=== PATIENT | female | born 1945 | race Caucasian/White ===

== ENCOUNTER → 2016-07-10 | Outpatient (CLI) | payer OTHER ==
[~2016-07-10] MED LIST: ACET1TAB84 PO; ALBUAER2 INH; AMLO2.5T PO; APIX1TAB3 PO; ASPEC81 PO; BUDESUS; CALC500C70 PO; CLR10 PO; CPR500 PO; DFL100 PO; FLUT0.15 NAE; FRRS300 PO; FURO-85 PO; GABA1CAP4 PO; HYDR-5688 PO; IBAN150T PO; LEVO88TA PO; LPT40 PO; LSN5 PO; MGNO400 PO; MTR500 PO; OMEP40CA41 PO; POLY335025 PO; SIMV20TA5 PO; SULF800T23 PO; TPRSR50 PO; VALA500T39 PO; VALA500T60 PO; WARF3TAB6 PO; [UNRECOGNIZED DRUG - CODE] TOP
--- NOTE | 2016-07-10 15:08 | DIAGNOSTIC IMAGING REPORT ---
KUB CLINICAL HISTORY: N20.0 [id number] COMPARISON STUDY: 01/03/2016 FINDINGS: There is no pathologic bowel dilatation. There are postsurgical changes involve the proximal left femur. There are extensive degenerative changes in the lower lumbar spine. Approximately 8 right renal calculi are visualized, the largest of which measures 7 mm. Punctate upper pole left renal calculi are also visualized. IMPRESSION: 1. Bilateral nephrolithiasis right greater than left. 2. No evidence of pathologic bowel dilatation Electronically signed by: Armando Barker M.D. 07/10/2016 3:06 PM Dictated Date/Time: 07/10/2016 3:05 PM
== END | disposition home or self-care (01) ==
LOC: C.RAD 14:29
PROVIDERS: ATTEND Urology
DX: N20.0 Calculus of kidney (principal)

== ENCOUNTER → 2016-08-10 | Outpatient (CLI) | payer OTHER ==
[2016-08-10 15:43] LABS: URINE APPEARANCE CLEAR (CLEAR); URINE BILIRUBIN NEG (NEG); URINE COLOR YELLOW; URINE EPITHELIAL CELL AUTO >30 /lpf (0-5); URINE NITRITE NEG (NEG); URINE SPECIFIC GRAVITY 1.015 (1.000-1.030); UROBILINOGEN NEG (NEG)
[2016-08-10 15:46] LABS: MANUAL MICROSCOPIC REQUIRED? NO; REVIEW REQ? NO
== END | disposition home or self-care (01) ==
LOC: C.LAB 14:11
PROVIDERS: ATTEND Internal Medicine
DX: R30.0 Dysuria (principal); E03.9 Hypothyroidism, unspecified

== ENCOUNTER 2016-08-30 13:43 | Emergency (ER) | payer OTHER ==
[~2016-08-30] VITALS: Ht 142.2 cm; Wt 75.0 kg
[~2016-08-30 13:43] MED LIST changes: -ACET1TAB84 PO; -ASPEC81 PO; -CLR10 PO; -CPR500 PO; -FLUT0.15 NAE; -FRRS300 PO; -FURO-85 PO; -HYDR-5688 PO; -LPT40 PO; -MGNO400 PO; -MTR500 PO; -OMEP40CA41 PO; -SULF800T23 PO; -TPRSR50 PO; -VALA500T39 PO; -VALA500T60 PO; -WARF3TAB6 PO; -[UNRECOGNIZED DRUG - CODE] TOP
[2016-08-30 13:47] VITALS: TEMP 36.7; Ht 142.2 cm; Wt 75.0 kg
[2016-08-30] MEDS ORDERED: HYDROCODONE/ACETAMOPHEN 5/325MG TAB PO STA (13:53)
--- NOTE | 2016-08-30 14:20 | DIAGNOSTIC IMAGING REPORT ---
RIGHT WRIST MIN 3 VIEWS ROUTINE CLINICAL HISTORY: final/wrist pain Right trauma. Pain. COMPARISON: None. DISCUSSION: Possible cortical defect dorsal aspect distal radius. There is a positive pronator fat pad sign. No evidence of dislocation. All remaining osseous structures are unremarkable. IMPRESSION: Possible incomplete cortical fracture distal radius. Localized soft tissue edema. Alignment is anatomic Electronically signed by: Luis Miguel Myrick M.D. 08/30/2016 2:19 PM Dictated Date/Time: 08/30/2016 2:14 PM
--- NOTE | 2016-08-30 14:47 | EMERGENCY ROOM VISIT NOTE ---
ED Visit Note First contact with patient: 13:48 CHIEF COMPLAINT: Right wrist injury HISTORY OF PRESENT ILLNESS: This 71-year-old female presents the ER via ambulance with chief complaint of right wrist injury. The patient states that she stepped off a curb when getting into her car and fell injuring her right wrist. She states that her hand was in her cope pocket when she fell. The patient denies any loss of consciousness or any other injuries. The patient denies any numbness and tingling in her fingers. The patient denies any elbow or shoulder pain. The patient denies any prior injury to her right wrist. She has seen after Ron or Dr. Cardona in the past for other orthopedic needs. REVIEW OF SYSTEMS: 6 system review was performed and was negative unless stated otherwise in history of present illness. PMH: The patient is healthy; EMR was reviewed. See chronic problem list. There are no changes from prior ER visit SOCIAL HISTORY: Patient admits to tobacco use PHYSICAL EXAM: Vital Signs: Were reviewed Reviewed Nurse's notes. GEN.: 71-year -old white female appears in no acute distress. MENTAL Status: Alert and oriented 3. RIGHT WRIST: No gross bony deformity noted. No erythema or edema noted. The patient is tenderness palpation over the dorsal aspect of the wrist. Limited range of motion secondary to pain. The skin is intact. Flexion and extension of the fingers is intact. The fingers are warm and well perfused. EMERGENCY DEPARTMENT COURSE: The patient was evaluated. The patient was given Martinez 5/325 mg one tablet by mouth for pain. X-ray of the right wrist was ordered and interpreted by the radiologist and myself. DIAGNOSTICS:RIGHT WRIST MIN 3 VIEWS ROUTINE CLINICAL HISTORY: final/wrist pain Right trauma. Pain. COMPARISON: None. DISCUSSION: Possible cortical defect dorsal aspect distal radius. There is a positive pronator fat pad sign. No evidence of dislocation. All remaining osseous structures are unremarkable. IMPRESSION: Possible incomplete cortical fracture distal radius. Localized soft tissue edema. Alignment is anatomic Electronically signed by: Luis Miguel Myrick M.D. 08/30/2016 2:19 PM Dictated Date/Time: 08/30/2016 2:14 PM The patient was informed of the findings. The patient was independently evaluated by Dr. Martini who agrees with treatment plan. The patient was placed in a volar splint and discharged home in stable condition. DIAGNOSIS: Fractured distal right radius DISCHARGE INSTRUCTIONS AND TREATMENT: Take Martinez as needed for pain. Do not drive while taking the Martinez. Call Dr. Velasquez as soon as possible for follow- up appointment. Keep arm in splint until evaluated by orthopedics. Ice elevation as much as possible over the next 24 hours. Problem List Medical Problems: (1) Compression fracture of lumbar vertebra Status: Chronic (2) Diabetes mellitus Status: Chronic (3) DVT (deep venous thrombosis) Status: Chronic (4) Hyperlipidemia Status: Chronic (5) Kidney stones Status: Chronic (6) Lymphoma Status: Chronic (7) Osteopenia Status: Chronic (8) Thyroid disease Status: Chronic Current/Historical Medications Scheduled Amlodipine (Norvasc), 2.5 MG PO DAILY Apixaban (Eliquis), 5 MG PO BID Budesonide (Nasal) (Rhinocort Aq Nasal), 2 SPRAY NA DAILY Calcium/Vitamin D (Os-Jonah 500 Plus D), 1 TAB PO DAILY Gabapentin (Gabapentin), 300 MG PO HS Ibandronate Sodium (Boniva), 150 MG PO MONTHLY Levothyroxine Sodium (Synthroid), 88 MCG PO DAILY Lisinopril (Lisinopril), 5 MG PO QAM Simvastatin (Zocor), 20 MG PO DAILY Scheduled PRN Albuterol (Ventolin Hfa), 1-2 PUFFS INH 4-6 hrs PRN for prn Fluconazole (Fluconazole), 100 MG PO DAILY PRN for PRN Polyethylene Glycol 3350 (Miralax), 17 GM PO DAILY PRN for Constipation Allergies Coded Allergies: Nitrofurantoin (Verified Allergy, Severe, HIVES,ITCHING, 08/30/16) Azithromycin (Verified Allergy, Unknown, HIVES, 08/30/16) Penicillins (Verified Allergy, Unknown, HIVES, 08/30/16) PT SAID SHE'S NOT ALLERGIC TO IT ANYMORE Vital Signs Date Time Temp Pulse Resp B/P Pulse Ox O2 Delivery O2 Flow Rate FiO2 08/30/16 13:47 36.7 86 18 156/74 96 Room Air Medications Administered Medications (Trade) Dose Ordered Sig/Mahogany Route Start Time Stop Time Status Last Admin Dose Admin Acetaminophen/ Hydrocodone Bitart (Martinez 5/325 Tab) 1 tab NOW STAT PO 08/30/16 13:53 08/30/16 13:55 DC 08/30/16 14:02 1 TAB Departure Information Referrals Thang Lakhani M.D. (PCP) Patient Instructions My [facility]
[2016-08-30] MEDS ORDERED: HYDR-5688 PO (14:49)
[2016-08-30 15:18] VITALS: BP 150/80; PULSE 64; O2SAT 96
--- NOTE | 2016-08-30 15:26 | EMERGENCY ROOM VISIT NOTE ---
ED Visit Note First contact with patient: 13:48 I have personally evaluated this patient examined her and reviewed the pertinent labs and data. I have discussed the case with Audrey Myrick, the physician content assistant and agree with the plan. Please refer to the PA note Patient comes in after injuring her right wrist after suffering from a mechanical fall. She has no other complaints. On exam, she has some tenderness but no obvious deformity or any neurovascular neurologic compromise. She has nothing to suggest compartment syndrome. She didn't hit her head. X- rays were obtained and show no definite fractures a questionable nondisplaced fracture we will immobile her and she should follow-up with her regular doctor or orthopedist.
[2016-12-17] MEDS ORDERED: WARF3TAB6 PO (12:43)
[2016-12-17] MEDS ORDERED: FURO-85 PO (12:46)
[2016-12-27] MEDS ORDERED: ACET1TAB84 PO (11:27)
[2017-01-03] MEDS ORDERED: FURO-85 PO (14:28)
[2017-01-25] MEDS ORDERED: SULF800T23 PO (13:52)
[2017-02-07] MEDS ORDERED: CLR10 PO (11:16)
== END 2016-08-30 15:19 | disposition home or self-care (01) ==
LOC: EDBD 13:43 → C.EDD 13:45
DX: S52.501A Unspecified fracture of the lower end of right radius, initial encounter for closed fracture (principal); W10.1XXA Fall (on)(from) sidewalk curb, initial encounter; F17.200 Nicotine dependence, unspecified, uncomplicated; Z11.9 Encounter for screening for infectious and parasitic diseases, unspecified; E78.5 Hyperlipidemia, unspecified; M85.80 Other specified disorders of bone density and structure, unspecified site

== ENCOUNTER → 2016-09-07 | Outpatient (CLI) | payer OTHER ==
[~2016-09-07] MED LIST changes: +ACET1TAB84 PO; +ASPEC81 PO; +CLR10 PO; +CPR500 PO; +FLUT0.15 NAE; +FRRS300 PO; +FURO-85 PO; +HYDR-5688 PO; +LPT40 PO; +MGNO400 PO; +MTR500 PO; +OMEP40CA41 PO; +SULF800T23 PO; +TPRSR50 PO; +VALA500T39 PO; +VALA500T60 PO; +WARF3TAB6 PO; +[UNRECOGNIZED DRUG - CODE] TOP
[2016-09-07 15:22] LABS: BLOOD UREA NITROGEN 40 mg/dl (7-18)
== END | disposition home or self-care (01) ==
LOC: C.LABBC 11:18
PROVIDERS: ATTEND Anesthesiology
DX: M54.5 Low back pain (principal)

== ENCOUNTER → 2016-09-10 | Outpatient (CLI) | payer OTHER ==
--- NOTE | 2016-09-10 13:10 | DIAGNOSTIC IMAGING REPORT ---
LUMBAR SPINE MRI HISTORY: Pain BACK PAIN TECHNIQUE: Multiplanar multisequence MRI of the lumbar spine was performed without the use of contrast. COMPARISON: 06/02/2013 FINDINGS: For the purpose of the report the L5-S1 disc space will be located on axial image 30 of 34. Complete compression deformity of L3 considered pre-existing. Posterior retropulsion of the posterior margin of the vertebral body x 8 mm. Moderate compression deformity central aspect superior endplate L5 considered old. L1-L2: Mild broad-based bulging disc. Mild impression anterior thecal sac. L2-L3: Broad-based posterior extradural defect creating moderate anterior posterior narrowing of spinal canal. Moderate narrowing of the neuroforamina bilaterally. L3-L4: Broad-based posterior extradural defect comprised primarily of the posterior margin of the L3 vertebral body. Significant multifactorial narrowing of the spinal canal and associated neural foramina. L4-L5: Moderate multifactorial narrowing of the spinal canal. Broad-based bulging disc. Moderate hypertrophic change posterior elements. L5-S1: Mild central disc herniation. No significant deformity or displacement of the thecal sac or associated neural root. IMPRESSION: 1. Near complete compression deformity L3 with posterior displacement of the posterior margin of the vertebral body.. 2. Posterior displacement is estimated at 8 mm creating rather significant narrowing of spinal canal and associated neural foramina at L3-L4 and to lesser extent L2-L3 3. Moderate multifactorial narrowing of spinal canal at L4-L5. 5. Mild central disc herniation L5-S1. 6. Concave deformity superior endplate L5 considered old Electronically signed by: Luis Miguel Myrick M.D. 09/10/2016 1:09 PM Dictated Date/Time: 09/10/2016 12:50 PM
== END | disposition home or self-care (01) ==
LOC: C.MRIBC 11:48
PROVIDERS: ATTEND Anesthesiology
DX: M54.5 Low back pain (principal)

== ENCOUNTER 2016-09-17 17:57 | Emergency (ER) | payer OTHER ==
[~2016-09-17] VITALS: Ht 142.2 cm; Wt 74.0 kg
[~2016-09-17 17:57] MED LIST changes: -ACET1TAB84 PO; -ASPEC81 PO; -CLR10 PO; -CPR500 PO; -FLUT0.15 NAE; -FRRS300 PO; -FURO-85 PO; -LPT40 PO; -MGNO400 PO; -MTR500 PO; -OMEP40CA41 PO; -SULF800T23 PO; -TPRSR50 PO; -VALA500T39 PO; -VALA500T60 PO; -WARF3TAB6 PO; -[UNRECOGNIZED DRUG - CODE] TOP
[2016-09-17 18:18] VITALS: Ht 142.2 cm; Wt 74.0 kg
[2016-09-17] MEDS ORDERED: SODIUM CHLORIDE 0.9% 1000ML 1,000 ML IV STA (18:37)
--- NOTE | 2016-09-17 19:08 | DIAGNOSTIC IMAGING REPORT ---
CHEST ONE VIEW PORTABLE CLINICAL HISTORY: Generalized Weakness dyspnea COMPARISON STUDY: 06/15/2016 FINDINGS: The bones soft tissues and hemidiaphragms are normal. The cardiomediastinal silhouette is normal. The lungs are clear. The pulmonary vasculature is normal. IMPRESSION: Negative chest. Electronically signed by: Luis Miguel Myrick M.D. 09/17/2016 7:06 PM Dictated Date/Time: 09/17/2016 7:06 PM
[2016-09-17 19:44] LABS: URINE APPEARANCE CLEAR (CLEAR); URINE BILIRUBIN NEG (NEG); URINE COLOR YELLOW; URINE NITRITE NEG (NEG); URINE SPECIFIC GRAVITY 1.013 (1.000-1.030); UROBILINOGEN NEG (NEG); ZZUR CULT IF INDIC CLEAN CATCH NO
[2016-09-17 19:48] LABS: MANUAL MICROSCOPIC REQUIRED? NO; REVIEW REQ? NO
[2016-09-17 19:53] LABS: BASO % 0.5 %; BASO ABS # 0.03 K/uL (0-0.2); COMPLETE YES; EOS % 0.3 %; IG% 0.2 %; LYMPH % 35.3 %; LYMPH ABS # 2.34 K/uL (1.2-3.4); MEAN CELL VOLUME 98.6 fL (80-100); MEAN CORPUSCULAR HEMOGLOBIN 32.3 pg (25-34); MEAN CORPUSCULAR HGB CONC 32.8 g/dl (32-36); MEAN PLATELET VOLUME 10.6 fL (7.4-10.4); MONO % 8.3 %; NEUT % 55.4 %; PLATELET COUNT 241 K/uL (130-400); RED BLOOD COUNT 3.65 M/uL (4.2-5.4); WHITE BLOOD COUNT 6.62 K/uL (4.8-10.8)
[2016-09-17 20:05] LABS: PROTHROMBIN TIME (PATIENT) 10.9 SECONDS (9.0-12.0)
[2016-09-17 20:12] LABS: ALT/SGPT 16 U/L (12-78); AST/SGOT 12 U/L (15-37); BLOOD UREA NITROGEN 27 mg/dl (7-18); BUN/CREATININE RATIO 11.9 (10-20); CALCIUM 8.6 mg/dl (8.5-10.1); CARBON DIOXIDE 28 mmol/L (21-32); CHLORIDE 106 mmol/L (98-107); GLUCOSE 116 mg/dl (70-99); MAGNESIUM 1.6 mg/dl (1.8-2.4); POTASSIUM 4.4 mmol/L (3.5-5.1); SODIUM 141 mmol/L (136-145)
[2016-09-17 20:16] LABS: ALKALINE PHOSPHATASE 102 U/L (45-117); CKMB/CK RATIO 1.5 (0-3.0); PHOSPHORUS 2.6 mg/dl (2.5-4.9)
--- NOTE | 2016-09-17 20:45 | DIAGNOSTIC IMAGING REPORT ---
ABDOMEN AND PELVIS CT WITHOUT CONTRAST CT DOSE: 1188.50 mGy.cm HISTORY: Pelvic pain bilateral lower abdominal discomfort TECHNIQUE: Multiaxial CT images of the abdomen and pelvis were performed without the use of intravenous and oral contrast according to the standard department stone protocol. COMPARISON STUDY: 01/10/2014 FINDINGS: Lung bases are generally clear. Configuration of liver is unremarkable. Small gallstones are present within the gallbladder lumen. Right kidney shows an exophytic cyst projecting anteriorly from the upper pole unchanged. There are several right renal calcifications considered nonobstructive. Left kidney demonstrates mild cortical scarring with several nonobstructing renal calcifications. An exophytic posterior lateral cyst is unchanged. There is no evidence for an obstructing urinary tract calculus. Bladder is midline. The appendix is normal. There are no obstructive changes. There is no evidence for abscess or collection. Findings of a left femoral intramedullary zack are unchanged. Findings of a complete compression deformity of L3 with retropulsion of components of the vertebral bodies are similar. Considerable degenerative changes noted throughout the low thoracic as well as lumbar spine. IMPRESSION: 1. Several nonobstructing renal calcifications. 2. Nonobstructive bowel pattern. 3. Normal appendix. 4. L3 compression fracture unchanged from the prior study. 5. several small gallstones within the gallbladder lumen. Electronically signed by: Luis Miguel Myrick M.D. 09/17/2016 8:43 PM Dictated Date/Time: 09/17/2016 8:39 PM
[2016-09-17] MEDS ORDERED: MAGNESIUM SULFATE 1GM / D5W 1 GM BAG IV STA (20:46)
[2016-09-17] MEDS ORDERED: VALA500T39 PO (21:20)
[2016-09-17] MEDS ORDERED: FLUT0.15 NAE (21:20)
[2016-09-17] MEDS ORDERED: OMEP40CA41 PO (21:20)
[2016-09-17] MEDS ORDERED: [UNRECOGNIZED DRUG - CODE] TOP (21:20)
--- NOTE | 2016-09-17 21:23 | EMERGENCY ROOM VISIT NOTE ---
History Report prepared by Zander: Carmelita Wood Under the Supervision of: Dr. Marcial Jin M.D. First contact with patient: 18:24 Chief Complaint: DEHYDRATION Stated Complaint: FATIGUE,NO APPETITE,HEADACHE Nursing Triage Summary: pt reports "not eating and drinking last several days and think Im dehydrated" denies n/v/d headache started today extreme fatigue History of Present Illness The patient is a 71 year old female who presents to the Emergency Room with complaints of worsening dehydration that started a couple days ago. The patient states that she has not had an appetite for the last several days so she has not eaten much. She suspects that she is dehydrated. The patient's daughter also states that the patient has been fatigued and weak over the past two days. The patient states that she is experiencing a productive cough with phlegm. The patient experienced some nausea yesterday, but she denies vomiting. Additionally she is experiencing abdominal pain and back pain. However, the patient was just evaluated by a entry specialists in [place] earlier today. Her last bowel movement was this morning and she states that it was normal. She denies any burning with urination, but states that her urine is dark. The patient is on Eliquis for a history of DVTs in her bilateral lower extremities. She denies chest pain and shortness of breath. However, the patient's daughter states that the patient experienced a brief episode of shortness of breath when she was getting into the car to come into the ED. The patient adds that she was on pain medicine last week because she fracture her right wrist. The patient denies any history of abdominal surgeries. Source of History: patient Onset: a couple days ago Position: other (global) Quality: other (dehydration) Timing: worsening Associated Symptoms: + abdominal pain, + back pain, + cough (productive with phlegm), + nausea, + urinary symptoms (dark urine, but no burning with urination), No SOB, No chest pain, No vomiting Review of Systems See HPI for pertinent positives & negatives. A total of 10 systems reviewed and were otherwise negative. 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 (10) Thyroid disease (11) UTI (urinary tract infection) Family History FHx: diabetes FHx: heart disease Social History Smoking Status: Current Every Day Smoker Alcohol Use: none Drug Use: none Marital Status: Housing Status: lives with family Occupation Status: retired Current/Historical Medications Scheduled Amlodipine (Norvasc), 2.5 MG PO DAILY Apixaban (Eliquis), 5 MG PO BID Calcium/Vitamin D (Os-Jonah 500 Plus D), 1 TAB PO DAILY Fluticasone Propionate (Nasal) (Flonase Allergy Relief), 1 SPRAY CORRIE QAM Gabapentin (Gabapentin), 300 MG PO HS Ibandronate Sodium (Boniva), 150 MG PO MONTHLY Levothyroxine Sodium (Synthroid), 88 MCG PO DAILY Omeprazole (Prilosec), 40 MG PO QAM Simvastatin (Zocor), 20 MG PO DAILY Scheduled PRN Fluconazole (Fluconazole), 100 MG PO DAILY PRN for PRN Fluocinolone Acetonide (Fluocinolone Acetonide), 1 APPLN TOP BID PRN for PRN Polyethylene Glycol 3350 (Miralax), 17 GM PO DAILY PRN for Constipation Valacyclovir Hcl (Valtrex), Unknown Dose PO DAILY PRN for PRN Allergies Coded Allergies: Nitrofurantoin (Verified Allergy, Severe, HIVES,ITCHING, 09/17/16) Azithromycin (Verified Allergy, Unknown, HIVES, 09/17/16) Penicillins (Verified Allergy, Unknown, HIVES, 09/17/16) PT SAID SHE'S NOT ALLERGIC TO IT ANYMORE Physical Exam Vital Signs Date Time Temp Pulse Resp B/P Pulse Ox O2 Delivery O2 Flow Rate FiO2 09/17/16 22:27 37.0 97 20 103/60 95 09/17/16 19:07 97 09/17/16 18:18 37.0 106 20 103/60 95 Room Air Physical Exam GENERAL: Patient is chronically unwell appearing and in minimal distress. HEENT: No acute trauma, normocephalic atraumatic, mucous membranes dry, no nasal congestion, no scleral icterus. NECK: No stridor, no adenopathy, no meningismus, trachea is midline. LUNGS: No dyspnea. Clear to auscultation and equal bilaterally. No wheeze, no rhonchi. HEART: Regular rate and rhythm. No murmurs, rubs, gallops appreciated. ABDOMEN: Soft, mild lower tenderness to palpation, hypoactive bowel sounds, no masses appreciated, no peritonitis, no guarding. BACK: No midline tenderness, no CVA tenderness EXTREMITIES: Normal motion all extremities, vague tenderness to bilateral legs, no cyanosis, no edema. NEUROLOGIC: Alert and oriented, no acute motor or sensory deficits, no focal weakness, cranial nerves grossly intact. SKIN: No rash, no jaundice, no diaphoresis. Medical Decision & Procedures ER Provider Diagnostic Interpretation: Radiology results and stated below per my review and radiologist interpretation: CHEST ONE VIEW PORTABLE IMPRESSION: Negative chest. Electronically signed by: Luis Miguel Myrick M.D. 09/17/2016 7:06 PM Dictated Date/Time: 09/17/2016 7:06 PM [address]OMEN AND PELVIS CT WITHOUT CONTRAST IMPRESSION: 1. Several nonobstructing renal calcifications. 2. Nonobstructive bowel pattern. 3. Normal appendix. 4. L3 compression fracture unchanged from the prior study. 5. several small gallstones within the gallbladder lumen. Electronically signed by: Luis Miguel Myrick M.D. 09/17/2016 8:43 PM Dictated Date/Time: 09/17/2016 8:39 PM Laboratory Results 09/17/16 19:40 Red Blood Count 3.65, Mean Corpuscular Volume 98.6, Mean Corpuscular Hemoglobin 32.3, Mean Corpuscular Hemoglobin Concent 32.8, Mean Platelet Volume 10.6, Neutrophils (%) (Auto) 55.4, Lymphocytes (%) (Auto) 35.3, Monocytes (%) (Auto) 8.3, Eosinophils (%) (Auto) 0.3, Basophils (%) (Auto) 0.5, Neutrophils # (Auto) 3.67, Lymphocytes # (Auto) 2.34, Monocytes # (Auto) 0.55, Eosinophils # (Auto) 0.02, Basophils # (Auto) 0.03 09/17/16 19:40 Test 09/17/16 19:00 09/17/16 19:40 09/17/16 19:49 Urine Color YELLOW Urine Appearance CLEAR (CLEAR) Urine pH 7.0 (4.5-7.5) Urine Specific Woodrow 1.013 (1.000-1.030) Urine Protein NEG (NEG) Urine Glucose (UA) NEG (NEG) Urine Ketones NEG (NEG) Urine Occult Blood NEG (NEG) Urine Nitrite NEG (NEG) Urine Bilirubin NEG (NEG) Urine Urobilinogen NEG (NEG) Urine Leukocyte Esterase NEG (NEG) Urine WBC (Auto) 1-5 /hpf (0-5) Urine RBC (Auto) 0-4 /hpf (0-4) Urine Hyaline Casts (Auto) 1-5 /lpf (0-5) Urine Epithelial Cells (Auto) 10-20 /lpf (0-5) Urine Bacteria (Auto) NEG (NEG) White Blood Count 6.62 K/uL (4.8-10.8) Red Blood Count 3.65 M/uL (4.2-5.4) Hemoglobin 11.8 g/dL (12.0-16.0) Hematocrit 36.0 % (37-47) Mean Corpuscular Volume 98.6 fL (80-100) Mean Corpuscular Hemoglobin 32.3 pg (25-34) Mean Corpuscular Hemoglobin Concent 32.8 g/dl (32-36) Platelet Count 241 K/uL (130-400) Mean Platelet Volume 10.6 fL (7.4-10.4) Neutrophils (%) (Auto) 55.4 % Lymphocytes (%) (Auto) 35.3 % Monocytes (%) (Auto) 8.3 % Eosinophils (%) (Auto) 0.3 % Basophils (%) (Auto) 0.5 % Neutrophils # (Auto) 3.67 K/uL (1.4-6.5) Lymphocytes # (Auto) 2.34 K/uL (1.2-3.4) Monocytes # (Auto) 0.55 K/uL (0.11-0.59) Eosinophils # (Auto) 0.02 K/uL (0-0.5) Basophils # (Auto) 0.03 K/uL (0-0.2) RDW Standard Deviation 50.4 fL (36.4-46.3) RDW Coefficient of Variation 14.0 % (11.5-14.5) Immature Granulocyte % (Auto) 0.2 % Immature Granulocyte # (Auto) 0.01 K/uL (0.00-0.02) Prothrombin Time 10.9 SECONDS (9.0-12.0) Prothromb Time International Ratio 1.0 (0.9-1.1) Activated Partial Thromboplast Time 25.4 SECONDS (21.0-31.0) Partial Thromboplastin Ratio 1.0 Est Creatinine Clear Calc Drug Dose 17.7 ml/min Estimated GFR () 23.6 Estimated GFR (Non- 20.4 BUN/Creatinine Ratio 11.9 (10-20) Calcium Level 8.6 mg/dl (8.5-10.1) Phosphorus Level 2.6 mg/dl (2.5-4.9) Magnesium Level 1.6 mg/dl (1.8-2.4) Total Bilirubin 0.2 mg/dl (0.2-1) Direct Bilirubin < 0.1 mg/dl (0-0.2) Aspartate Amino Transf (AST/SGOT) 12 U/L (15-37) Alanine Aminotransferase (ALT/SGPT) 16 U/L (12-78) Alkaline Phosphatase 102 U/L (45-117) Total Creatine Kinase 52 U/L (26-192) Creatine Kinase MB 0.8 ng/ml (0.5-3.6) Creatine Kinase MB Ratio 1.5 (0-3.0) Troponin I < 0.015 ng/ml (0-0.045) Total Protein 6.5 gm/dl (6.4-8.2) Albumin 3.1 gm/dl (3.4-5.0) Lipase 75 U/L (73-393) Bedside Hemoglobin 11.6 g/dl (12.0-16.0) Bedside Hematocrit 34 % (37-47) Bedside Sodium 136 mEq/L (135-144) Bedside Potassium 4.7 mEq/L (3.3-5.0) Bedside Chloride 106 mEq/L (101-112) Bedside Total CO2 23 mEq/l (24-31) Anion Gap 12.0 mmol/L (16-25) Bedside Blood Urea Nitrogen 33 mg/dl (7-18) Bedside Creatinine 2.2 mg/dl (0.6-1.3) Bedside Glucose (other) 121 mg/dl (70-99) Bedside Ionized Calcium (Iona) 0.85 mmol/l (1.12-1.32) Laboratory results as reviewed by me. Medications Administered Medications (Trade) Dose Ordered Sig/Mahogany Route Start Time Stop Time Status Last Admin Dose Admin Sodium Chloride (Nss 1000ml) 1,000 ml @ 999 mls/hr Q1H1M STAT IV 09/17/16 18:37 09/17/16 19:37 DC 09/17/16 18:37 999 MLS/HR Magnesium Sulfate (Magnesium Sulfate) 1 gm NOW STAT IV 09/17/16 20:46 09/17/16 20:47 DC 09/17/16 20:54 1 GM ECG Indication: abdominal pain Rate (beats per minute): 100 Rhythm: sinus rhythm Findings: PVC, no acute ischemic change ED Course 1832: The patient was evaluated in room A10. A complete history and physical exam was performed. 1836: Ordered Sodium Chloride 1000 ml @ 999 mls/hr IV 2043: Upon reevaluation, the patient is resting comfortably. Discussed results and treatment plan with the patient. She verbalized understanding and agreement with the treatment plan. The patient will be evaluated for further management. 2045: Ordered Magnesium Sulfate 1 gm IV 2121: Reevaluated the patient. She notes that she is feeling a lot better and would like to try to go home. Discussed results and discharge instructions: she verbalized understanding and agreement. The patient is ready for discharge. Medical Decision Differential: Sepsis, Infectious (UTI/Pneumonia/Meningitis/etc), Metabolic/ Electrolyte Abnormality, Cardiac, Hepatic, Endocrine, Toxicologic, Neurologic, amongst other pathologies entertained. 71 yr old female arrives due to poor appetite, generalized weakness and mild bilateral lower abdominal pain. Feeling much better after IV fluids. Mag mildly low thus given 1 G IV as she is renal patient. Discussed follow up with PCP for further evaluation. She has no evidence of acute infection and is not septic. CT abdo negative for acute process and she has non surgical abdomen. She is feeling better and looks much improved. She and family member feel comfortable going home and aware they can return at any time if worsening symptoms or other concerns. Stable at time of discharge. CaseManagement will help set up follow up appointment with PCP. Impression Primary Impression: Fatigue Additional Impressions: Generalized weakness Hypomagnesemia Poor appetite Bilateral lower abdominal pain Scribe Attestation The scribe's documentation has been prepared under my direction and personally reviewed by me in its entirety. I confirm that the note above accurately reflects all work, treatment, procedures, and medical decision making performed by me. Departure Information Dispostion Home / Self-Care Referrals Thang Lakhani M.D. (PCP) Forms HOME CARE DOCUMENTATION FORM, IMPORTANT VISIT INFORMATION, WORK / SCHOOL INSTRUCTIONS Patient Instructions ED Weakness UKO, Hypomagnesemia Dc, My [facility] Health Problem Qualifiers Primary Impression: Fatigue Fatigue type: unspecified Qualified Codes: R53.83 - Other fatigue
[2016-09-17 21:41] LABS: ISTAT CREATININE 2.2 mg/dl (0.6-1.3); ISTAT HEMOGLOBIN 11.6 g/dl (12.0-16.0); ISTAT IONIZED CALCIUM 0.85 mmol/l (1.12-1.32)
[2016-09-17 22:27] VITALS: BP 103/60; PULSE 97; TEMP 37; O2SAT 95
[2016-12-17] MEDS ORDERED: WARF3TAB6 PO (12:43)
[2016-12-17] MEDS ORDERED: FURO-85 PO (12:46)
[2016-12-27] MEDS ORDERED: ACET1TAB84 PO (11:27)
[2017-01-03] MEDS ORDERED: FURO-85 PO (14:28)
[2017-01-25] MEDS ORDERED: SULF800T23 PO (13:52)
[2017-02-07] MEDS ORDERED: CLR10 PO (11:16)
== END 2016-09-17 22:27 | disposition home or self-care (01) ==
LOC: C.EDB 17:59 → C.EDA 22:27
DX: R53.83 Other fatigue (principal); R53.1 Weakness; E83.42 Hypomagnesemia; R63.0 Anorexia; R10.30 Lower abdominal pain, unspecified; Z86.718 Personal history of other venous thrombosis and embolism; E11.9 Type 2 diabetes mellitus without complications; E78.5 Hyperlipidemia, unspecified; Z87.442 Personal history of urinary calculi; Z85.72 Personal history of non-Hodgkin lymphomas; Z87.440 Personal history of urinary (tract) infections; M85.80 Other specified disorders of bone density and structure, unspecified site; E07.9 Disorder of thyroid, unspecified; Z83.3 Family history of diabetes mellitus; F17.210 Nicotine dependence, cigarettes, uncomplicated; Z79.899 Other long term (current) drug therapy

== ENCOUNTER → 2016-10-10 | Outpatient (CLI) | payer OTHER ==
[~2016-10-10] MED LIST changes: +ACET1TAB84 PO; -ALBUAER2 INH; +ASPEC81 PO; -BUDESUS; +CLR10 PO; +CPR500 PO; +FLUT0.15 NAE; +FRRS300 PO; +FURO-85 PO; -HYDR-5688 PO; +LPT40 PO; -LSN5 PO; +MGNO400 PO; +MTR500 PO; +OMEP40CA41 PO; +SULF800T23 PO; +TPRSR50 PO; +VALA500T39 PO; +VALA500T60 PO; +WARF3TAB6 PO; +[UNRECOGNIZED DRUG - CODE] TOP
== END | disposition home or self-care (01) ==
LOC: C.MAMM 12:33
PROVIDERS: ATTEND Physician Assistant
DX: M81.0 Age-related osteoporosis without current pathological fracture (principal)

== ENCOUNTER → 2016-10-11 | Outpatient (CLI) | payer OTHER ==
[2016-10-11 17:43] LABS: BASO % 0.3 %; BASO ABS # 0.02 K/uL (0-0.2); COMPLETE YES; EOS % 0.6 %; HEMATOCRIT 38.6 % (37-47); IG% 0.2 %; LYMPH % 44.1 %; LYMPH ABS # 2.89 K/uL (1.2-3.4); MEAN CELL VOLUME 101.6 fL (80-100); MEAN CORPUSCULAR HEMOGLOBIN 32.6 pg (25-34); MEAN CORPUSCULAR HGB CONC 32.1 g/dl (32-36); MONO % 4.4 %; NEUT % 50.4 %; PLATELET COUNT 291 K/uL (130-400); WHITE BLOOD COUNT 6.56 K/uL (4.8-10.8)
[2016-10-11 18:03] LABS: BLOOD UREA NITROGEN 20 mg/dl (7-18); BUN/CREATININE RATIO 12.3 (10-20); CARBON DIOXIDE 28 mmol/L (21-32); CHLORIDE 102 mmol/L (98-107); GLUCOSE 116 mg/dl (70-99); SODIUM 138 mmol/L (136-145)
== END | disposition home or self-care (01) ==
LOC: C.LAB1850 16:42
PROVIDERS: ATTEND Nurse Practitioner Adult Health
DX: R42 Dizziness and giddiness (principal)

== ENCOUNTER → 2016-10-30 | Outpatient (CLI) | payer OTHER ==
[2016-10-30 17:24] LABS: URINE APPEARANCE CLEAR (CLEAR); URINE BILIRUBIN NEG (NEG); URINE COLOR YELLOW; URINE EPITHELIAL CELL AUTO >30 /lpf (0-5); URINE NITRITE NEG (NEG); URINE PH 6.5 (4.5-7.5); URINE SPECIFIC GRAVITY 1.009 (1.000-1.030); UROBILINOGEN NEG (NEG)
[2016-10-30 17:27] LABS: CHOLESTEROL/HDL RATIO 2.1
[2016-10-30 17:30] LABS: MANUAL MICROSCOPIC REQUIRED? NO; REVIEW REQ? NO
[2016-10-30 17:32] LABS: BLOOD UREA NITROGEN 31 mg/dl (7-18); BUN/CREATININE RATIO 16.3 (10-20); CALCIUM 9.3 mg/dl (8.5-10.1); CARBON DIOXIDE 28 mmol/L (21-32); CHLORIDE 104 mmol/L (98-107); GLUCOSE 103 mg/dl (70-99); POTASSIUM 4.6 mmol/L (3.5-5.1); SODIUM 138 mmol/L (136-145)
[2016-10-30 17:35] LABS: PHOSPHORUS 2.8 mg/dl (2.5-4.9)
[2016-10-31 07:05] LABS: ESTIMATED AVERAGE GLUCOSE 117 mg/dl; HA1C FLAG Normal (Normal)
== END | disposition home or self-care (01) ==
LOC: C.LABBC 13:17
PROVIDERS: ATTEND Internal Medicine Nephrology
DX: N18.4 Chronic kidney disease, stage 4 (severe) (principal); R73.09 Other abnormal glucose; R42 Dizziness and giddiness; E78.5 Hyperlipidemia, unspecified; R73.9 Hyperglycemia, unspecified

== ENCOUNTER → 2016-11-20 | Outpatient (CLI) | payer OTHER ==
--- NOTE | 2016-11-20 11:31 | DIAGNOSTIC IMAGING REPORT ---
LUMBAR SPINE CT CT DOSE: 1084.26 mGy.cm HISTORY: Lower back pain. LUMBAR SPINAL STENOSIS TECHNIQUE: Multiaxial CT images of the lumbar spine were performed and reformatted in the sagittal and coronal plane without the use of contrast. COMPARISON: Lumbar spine MRI 09/10/2016. FINDINGS: Severe compression fracture at L3 with a vertebral plana deformity is again noted. This demonstrates 7 mm of retropulsion and severe central canal narrowing at this level. The central canal measures a maximal diameter of 5 mm. This is similar to the prior study. Moderate endplate compression deformity at L5 is also unchanged. No acute fractures within the lumbar spine. Mild to moderate facet degenerative changes within the lower lumbar spine. Disc spaces are relatively preserved. Paraspinal soft tissues are unremarkable. Bilateral nephrolithiasis. Evaluation of the central canal is suboptimal due to the CT technique. There is also moderate central canal narrowing at L4-L5 due to the broad-based posterior disc bulge. Small broad-based posterior disc osteophyte complex at L1-L2. Small focal central disc protrusion at T12-L1, unchanged. IMPRESSION: 1. Overall, no significant change compared to the 09/10/2016 lumbar spine MRI. 2. Severe central canal narrowing at the L3 level due to the old severe compression deformity and 7 mm of retropulsion. 3. Old moderate compression deformity at L5. 4. No acute fractures. 5. Additional degenerative changes as described above. 6. Bilateral nephrolithiasis. Electronically signed by: Kade Osborne M.D. 11/20/2016 11:30 AM Dictated Date/Time: 11/20/2016 11:04 AM
== END | disposition home or self-care (01) ==
LOC: C.CTS 10:49
PROVIDERS: ATTEND Orthopaedic Surgery
DX: M51.36 Other intervertebral disc degeneration, lumbar region (principal); N20.0 Calculus of kidney

== ENCOUNTER 2016-12-06 13:30 | Inpatient (IN) | payer OTHER ==
[~2016-12-06] VITALS: Ht 142.2 cm; Wt 77.2 kg
[~2016-12-06 13:30] MED LIST changes: -ACET1TAB84 PO; -ASPEC81 PO; -CLR10 PO; -CPR500 PO; -FRRS300 PO; -FURO-85 PO; -LPT40 PO; -MGNO400 PO; -MTR500 PO; -SULF800T23 PO; -TPRSR50 PO; -VALA500T60 PO; -WARF3TAB6 PO
[2016-12-06] MEDS ORDERED: SODIUM CHLORIDE 0.9% 1000ML 1,000 ML IV STA (14:14)
[2016-12-06] MEDS ORDERED: SODIUM CHLORIDE 0.9% 1000ML 2,000 ML IV STA (14:15)
[2016-12-06] MEDS ORDERED: OPTIRAY 320 IV PRN (14:30)
[2016-12-06 14:31] LABS: BASO % 0.1 %; BASO ABS # 0.01 K/uL (0-0.2); COMPLETE YES; EOS % 0.6 %; HEMATOCRIT 38.7 % (37-47); IG% 0.2 %; LYMPH % 14.5 %; LYMPH ABS # 1.88 K/uL (1.2-3.4); MEAN CELL VOLUME 100.8 fL (80-100); MEAN CORPUSCULAR HEMOGLOBIN 32.8 pg (25-34); MEAN CORPUSCULAR HGB CONC 32.6 g/dl (32-36); MEAN PLATELET VOLUME 11.2 fL (7.4-10.4); MONO % 3.2 %; NEUT % 81.4 %; PLATELET COUNT 227 K/uL (130-400); RED BLOOD COUNT 3.84 M/uL (4.2-5.4); WHITE BLOOD COUNT 12.97 K/uL (4.8-10.8)
[2016-12-06 14:55] LABS: ALKALINE PHOSPHATASE 112 U/L (45-117); ALT/SGPT 18 U/L (12-78); AST/SGOT 34 U/L (15-37); BLOOD UREA NITROGEN 44 mg/dl (7-18); BUN/CREATININE RATIO 15.3 (10-20); CALCIUM 8.7 mg/dl (8.5-10.1); CARBON DIOXIDE 24 mmol/L (21-32); CHLORIDE 109 mmol/L (98-107); GLUCOSE 97 mg/dl (70-99); POTASSIUM 5.4 mmol/L (3.5-5.1); SODIUM 142 mmol/L (136-145)
[2016-12-06] MEDS ORDERED: SODIUM CHLORIDE 0.9% 500ML 500 ML IV STA (14:57)
[2016-12-06] MEDS ORDERED: VALA500T60 PO (14:59)
--- NOTE | 2016-12-06 15:15 | DIAGNOSTIC IMAGING REPORT ---
CHEST ONE VIEW PORTABLE CLINICAL HISTORY: Gastrointestinal hemorrhage COMPARISON STUDY: 09/17/2016 FINDINGS: The cardiac and mediastinal contours remain stable. There is developing interstitial thickening. This could be secondary to either mild pulmonary vascular congestion, or a bilateral interstitial inflammatory process. Clinical and radiographic follow-up is recommended. No significant pleural effusions are visualized.[No free air is visualized. IMPRESSION: Progressive elevation of the interstitium. This is likely secondary to either mild pulmonary vascular congestion or a bilateral interstitial inflammatory process. Clinical and radiographic follow-up is recommended Electronically signed by: Armando Barker M.D. 12/06/2016 3:14 PM Dictated Date/Time: 12/06/2016 3:12 PM
[2016-12-06 15:36] LABS: PARTIAL THROMBOPLASTIN RATIO 1.2; PROTHROMBIN TIME (PATIENT) 10.8 SECONDS (9.0-12.0)
--- NOTE | 2016-12-06 15:37 | DIAGNOSTIC IMAGING REPORT ---
CT SCAN OF THE ABDOMEN AND PELVIS WITHOUT CONTRAST CLINICAL HISTORY: Abdominal pain. Gastrointestinal hemorrhage. COMPARISON STUDY: 09/17/2016 TECHNIQUE: CT scan of the abdomen and pelvis was performed from the lung bases to the proximal femurs. Images are reviewed in the axial, sagittal, and coronal planes. IV contrast was not administered for this examination. CT DOSE: 739.88 mGy.cm FINDINGS: Lower chest: There are dependent interstitial opacities, perhaps minimally progressive when compared the preceding study. There are no significant pleural effusions. Liver: The unenhanced liver is normal in size, contour, and attenuation. There is no intrahepatic biliary ductal dilatation. Gallbladder: Cholelithiasis Spleen: Normal in size and attenuation. Pancreas: Unremarkable. Adrenal glands: Unremarkable. Kidneys: There are multiple right renal calculi measuring up to 9 mm in diameter. There is a 5 mm left renal calculus. There are bilateral hypodense renal lesions the largest of which arises from the lower pole the left kidney measuring 31 mm. These statistically represent cysts. Bowel: There are no transition zones to indicate obstruction. There is colonic wall thickening extending from the rectum to the splenic flexure. The findings are indicative of with a nonspecific colitis. There is no evidence of acute appendicitis Peritoneum: There is no intraperitoneal free air or abdominal ascites. Vasculature: The abdominal aorta is normal in course and caliber. Adenopathy: None. Pelvic viscera: The bladder, and pelvic viscera are unremarkable. Skeletal structures: There is a severe L3 compression fracture with retropulsion. This remains stable. IMPRESSION: 1. No evidence of bowel obstruction. No evidence of free air 2. Cholelithiasis 3. Bilateral nephrolithiasis 4. Moderate colonic wall thickening extending from the rectum to the splenic flexure. The findings are indicative of a colitis Electronically signed by: Armando Barker M.D. 12/06/2016 3:36 PM Dictated Date/Time: 12/06/2016 3:31 PM
[2016-12-06 16:15] LABS: HEMATOCRIT 39.1 % (37-47)
[2016-12-06 16:30] LABS: URINE APPEARANCE CLOUDY (CLEAR); URINE BILIRUBIN NEG (NEG); URINE COLOR YELLOW; URINE NITRITE POS (NEG); URINE SPECIFIC GRAVITY 1.015 (1.000-1.030); UROBILINOGEN NEG (NEG)
[2016-12-06] MEDS ORDERED: POLYETHYLENE (MIRALAX) 17 GM PACK PO PRN (16:30)
[2016-12-06] MEDS ORDERED: ALUMINUM/MAGNESIUM/SIMETH (MAALOX MAX) 30 ML UDC PO PRN (16:30)
[2016-12-06] MEDS ORDERED: MoRPHine SULFATE 2 MG/ML CARP IV PRN (16:30)
[2016-12-06] MEDS ORDERED: ZOLPIDEM TARTRATE 5 MG TAB PO PRN (16:30)
[2016-12-06] MEDS ORDERED: MAGNESIUM HYDROXIDE SUSP 30 ML UDC PO PRN (16:30)
[2016-12-06] MEDS ORDERED: ONDANSETRON INJ 2 MG/ML 2 ML VIAL IV PRN (16:30)
[2016-12-06] MEDS ORDERED: NITROGLYCERIN 0.4 MG SL PER TAB CHARGE SL PRN (16:30)
[2016-12-06 16:31] LABS: MANUAL MICROSCOPIC REQUIRED? NO; REVIEW REQ? NO
[2016-12-06] MEDS ORDERED: CEFTRIAXONE SOD INJ 1 GM ADDVIAL IV STA (16:34)
--- NOTE | 2016-12-06 17:59 | History and Physical ---
History & Physical Date & Time of Service: Dec 06, 2016 at 17:13 Chief Complaint: Abd Pain/Rectal Bleed Primary Care Physician: Thang Lakhani M.D. History of Present Illness Source: patient, family 71 y/o F Hx CKD 2-3, DVT (on Apixaban), Hypothyroidism. Pt presents with 2 days of intermittent BRBPR which follow straining on toilet. She describes some lower abdominal pain. Denies N/V or fevers. Initial CT abdomen is consistent with mild to moderate colitis. Initial labs were significant for acute on chronic RF and a markedly elevated troponin. She has not had any cardiovascular symptoms - denies CP, N/V, diaphoresis, palpitation or light- headedness. Past Medical/Surgical History Medical Problems: (1) Compression fracture of lumbar vertebra Status: Chronic (2) Diabetes mellitus Status: Chronic (3) DVT (deep venous thrombosis) Status: Chronic (4) Hyperlipidemia Status: Chronic (5) Kidney stones Status: Chronic (6) Lymphoma Status: Chronic (7) Osteopenia Status: Chronic (8) Thyroid disease Status: Chronic Family History FHx: diabetes FHx: heart disease Social History Smoking Status: Current Every Day Smoker Drug Use: none Marital Status: Housing status: lives alone Occupational Status: retired Immunizations History of Influenza Vaccine: N/A History of Tetanus Vaccine?: Unknown History of Pneumococcal: Yes History of Hepatitis B Vaccine: Yes Hepatitis Immunization Date: Nov 25, 1997 Multi-Drug Resistant Organisms History of MDRO: No Allergies Coded Allergies: Nitrofurantoin (Verified Allergy, Intermediate, HIVES,ITCHING, 12/06/16) Azithromycin (Verified Allergy, Unknown, HIVES, 09/17/16) Penicillins (Verified Allergy, Unknown, HIVES,PT SAYS SHE'S NOT ALLERGIC TO IT ANYMORE, 12/06/16) PT SAID SHE'S NOT ALLERGIC TO IT ANYMORE Home Medications Scheduled Amlodipine (Norvasc), 2.5 MG PO DAILY Apixaban (Eliquis), 5 MG PO BID Calcium/Vitamin D (Os-Jonah 500 Plus D), 1 TAB PO DAILY Fluticasone Propionate (Nasal) (Flonase Allergy Relief), 1 SPRAY CORRIE QAM Gabapentin (Gabapentin), 300 MG PO HS Ibandronate Sodium (Boniva), 150 MG PO MONTHLY Levothyroxine Sodium (Synthroid), 88 MCG PO DAILY Omeprazole (Prilosec), 40 MG PO QAM Simvastatin (Zocor), 20 MG PO DAILY Valacyclovir (Valtrex), 1,000 MG PO TID Scheduled PRN Fluocinolone Acetonide (Fluocinolone Acetonide), 1 APPLN TOP BID PRN for PRN Polyethylene Glycol 3350 (Miralax), 17 GM PO DAILY PRN for Constipation Review of Systems Constitutional: No fever, No chills, No sweats Eyes: No worsening of vision, No eye pain ENT: No hearing loss, No unusual epistaxis, No nasal symptoms Respiratory: No cough, No wheezing Cardiovascular: No chest pain, No orthopnea, No PND Abdomen: + pain, + GI bleeding, No vomiting Musculoskeletal: No joint pain, No muscle pain Genitourinary - Female: No dysuria, No urinary frequency, No urinary urgency, No urinary incontinence, No urinary retention, No hematuria Neurologic: No memory loss, No paralysis, No weakness Psychiatric: No depression symptoms Endocrine: No fatigue Hematologic / Lymphatic: + abnormal bleeding/bruising Integumentary: No rash Allergic / Immunologic: No environmental allergies Physical Exam Vital Signs Date Time Temp Pulse Resp B/P (MAP) Pulse Ox O2 Delivery O2 Flow Rate FiO2 12/06/16 14:51 98 12/06/16 14:33 Room Air 95 12/06/16 14:32 100 16 105/54 95 Room Air 12/06/16 13:41 36.8 116 25 98/66 94 Room Air General Appearance: WD/WN, no apparent distress Head: normocephalic, atraumatic Eyes: normal inspection ENT: normal ENT inspection, hearing grossly normal, TMs normal, pharynx normal Neck: supple, no JVD Respiratory/Chest: chest non-tender, lungs clear, normal breath sounds, no respiratory distress, no accessory muscle use Cardiovascular: regular rate, rhythm, no edema, no gallop Abdomen/GI: normal bowel sounds, soft, + pertinent finding (mild lower quadrant tenderness to deep palpation) Back: normal inspection, no CVA tenderness, no muscle spasm, normal range of motion Extremities/Musculoskelatal: normal inspection, no calf tenderness, normal capillary refill, no pedal edema, normal range of motion 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, no motor/sensory deficits, alert, oriented x 3 Skin: normal color, warm/dry, no rash Diagnostics Laboratory Results Results Past 24 Hours Test 12/06/16 14:05 12/06/16 15:12 12/06/16 16:05 Range/Units White Blood Count 12.97 4.8-10.8 K/uL Red Blood Count 3.84 4.2-5.4 M/uL Hemoglobin 12.6 12.6 12.0-16.0 g/dL Hematocrit 38.7 39.1 37-47 % Mean Corpuscular Volume 100.8 80-100 fL Mean Corpuscular Hemoglobin 32.8 25-34 pg Mean Corpuscular Hemoglobin Concent 32.6 32-36 g/dl Platelet Count 227 130-400 K/uL Mean Platelet Volume 11.2 7.4-10.4 fL Neutrophils (%) (Auto) 81.4 % Lymphocytes (%) (Auto) 14.5 % Monocytes (%) (Auto) 3.2 % Eosinophils (%) (Auto) 0.6 % Basophils (%) (Auto) 0.1 % Neutrophils # (Auto) 10.57 1.4-6.5 K/uL Lymphocytes # (Auto) 1.88 1.2-3.4 K/uL Monocytes # (Auto) 0.41 0.11-0.59 K/uL Eosinophils # (Auto) 0.08 0-0.5 K/uL Basophils # (Auto) 0.01 0-0.2 K/uL RDW Standard Deviation 49.3 36.4-46.3 fL RDW Coefficient of Variation 13.3 11.5-14.5 % Immature Granulocyte % (Auto) 0.2 % Immature Granulocyte # (Auto) 0.02 0.00-0.02 K/uL Sodium Level 142 136-145 mmol/L Potassium Level 5.4 3.5-5.1 mmol/L Chloride Level 109 98-107 mmol/L Carbon Dioxide Level 24 21-32 mmol/L Anion Gap 9.0 3-11 mmol/L Blood Urea Nitrogen 44 7-18 mg/dl Creatinine 2.90 0.60-1.20 mg/dl Est Creatinine Clear Calc Drug Dose 14.2 ml/min Estimated GFR () 17.9 Estimated GFR (Non- 15.4 BUN/Creatinine Ratio 15.3 10-20 Random Glucose 97 70-99 mg/dl Calcium Level 8.7 8.5-10.1 mg/dl Total Bilirubin 0.3 0.2-1 mg/dl Direct Bilirubin 0-0.2 mg/dl Aspartate Amino Transf (AST/SGOT) 34 15-37 U/L Alanine Aminotransferase (ALT/SGPT) 18 12-78 U/L Alkaline Phosphatase 112 45-117 U/L Troponin I 3.210 0-0.045 ng/ml Total Protein 6.8 6.4-8.2 gm/dl Albumin 2.7 3.4-5.0 gm/dl Lipase 52 73-393 U/L Chemistry Specimen Hemolysis Prothrombin Time 10.8 9.0-12.0 SECONDS Prothromb Time International Ratio 1.0 0.9-1.1 Activated Partial Thromboplast Time 30.9 21.0-31.0 SECONDS Partial Thromboplastin Ratio 1.2 Urine Color YELLOW Urine Appearance CLOUDY CLEAR Urine pH 5.0 4.5-7.5 Urine Specific [place] 1.015 1.000-1.030 Urine Protein 1+ NEG Urine Glucose (UA) NEG NEG Urine Ketones NEG NEG Urine Occult Blood 1+ NEG Urine Nitrite POS NEG Urine Bilirubin NEG NEG Urine Urobilinogen NEG NEG Urine Leukocyte Esterase MODERATE NEG Urine WBC (Auto) >30 0-5 /hpf Urine RBC (Auto) 0-4 0-4 /hpf Urine Hyaline Casts (Auto) 1-5 0-5 /lpf Urine Epithelial Cells (Auto) 5-10 0-5 /lpf Urine Bacteria (Auto) 2+ NEG Lactic Acid Level 1.6 0.4-2.0 mmol/L Diagnostic Radiology CT abdomen 1. No evidence of bowel obstruction. No evidence of free air 2. Cholelithiasis 3. Bilateral nephrolithiasis 4. Moderate colonic wall thickening extending from the rectum to the splenic flexure. The findings are indicative of a colitis EKG Sinus, PVCs, low voltage Ant T wave inversions Impression Assessment and Plan 71 y/o F Hx CKD 2-3, DVT (on Apixaban), Hypothyroidism. Pt presents with 2 days of intermittent BRBPR which follow straining on toilet. She describes some lower abdominal pain. Denies N/V or fevers. Initial CT abdomen is consistent with mild to moderate colitis. Initial labs were significant for acute on chronic RF and a markedly elevated troponin. She has not had any cardiovascular symptoms - denies CP, N/V, diaphoresis, palpitation or light- headedness. 1) LGI bleed - Likely related to colitis, straining and Apixaban use. - will consult GI and trend Hb - loss does not seem significant but may need eval for chronic vs infectious colitis. 2) Elevated troponin - she does not have any related symptoms but does have some EKG changes - we will trend her troponin and consult cardiology - we cannot anticoagulate and she is already on Apixaban. Her BP at present would not tolerate a B claudia - can consider after IVF. 3) CKD with acute on chronic failure - IVF - repeat labs AM - would consult nephrology if no improvement 4) Hx DVT - it is possible that she has a PE leading to her EKG pattern and elevated trop in context of CKD. Would consider a VQ if echo is normal and cardiac etiology is ruled out SCDs - full code Total time for this admit including review of labs, meds, EKG - discussion with pt and ER attending - 50 min Level of Care Telemetry Resuscitation Status FULL RESUSCITATION VTE Prophylaxis VTE Risk Assessment Done? Y/N: Yes Risk Level: Very Low Given or contraindicated: SCD's
[2016-12-06] MEDS: SODIUM CHLORIDE 0.9% 1000ML 1,000 ML IV SCH (18:39)
[2016-12-06 18:40] VITALS: BP 112/72; PULSE 97; TEMP 36.4; O2SAT 98; BMI 37.5
[2016-12-06 20:00] VITALS: BP 118/74; PULSE 97; TEMP 36.5; O2SAT 95
[2016-12-06] MEDS: GABAPENTIN 300 MG CAP PO SCH (20:39)
--- NOTE | 2016-12-06 20:53 | EMERGENCY ROOM VISIT NOTE ---
History Report prepared by Ryanibtoni: Barney Avendano Under the Supervision of: Dr. Gee Eaton D.O. First contact with patient: 14:05 Chief Complaint: ABDOMINAL PAIN Stated Complaint: ABD PAIN/RECTAL BLEED Nursing Triage Summary: Had conspitation a couple days ago, took a friend's suppository, noticed bright red blood from recturm Saturday or Saturday. Has lower abdominal pain, dizziness intermittently with standing, voices weakness. History of Present Illness The patient is a 71 year old female who presents to the Emergency Room with complaints of intermittent rectal bleeding that began yesterday. The patient is accompanied by her daughter who states that her friend gave the patient a suppository yesterday morning because the patient has been constipated for three days, and the patient has been having lower abdominal pains since. The patient states that she noticed the bleeding after she went to the bathroom yesterday and admits it was bright red. She admits that she has been bleeding about a tablespoon each time she goes to the bathroom. She also admits that she has been dizzy and weak. The patient states that she takes Apixaban twice a day for blood clots in her legs missed a dose today and is taking it today She reports that the blood clots have been there since January but denies any in her lungs. The patient denies headache, change in vision, fevers, chest pain, shortness of breath, nausea, vomiting, diarrhea, pain with urination, and melena. Source of History: patient, family (daughter) Onset: yesterday Position: abdomen Timing: intermittent Modifying Factors (Worsening): defecation Associated Symptoms: + weakness Review of Systems See HPI for pertinent positives & negatives. A total of 10 systems reviewed and were otherwise negative. 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 (11) Thyroid disease (12) Troponin level elevated (13) UTI (urinary tract infection) Family History FHx: diabetes FHx: heart disease Social History Smoking Status: Current Every Day Smoker Alcohol Use: none Drug Use: none Marital Status: Housing Status: lives with family Occupation Status: retired Current/Historical Medications Scheduled Amlodipine (Norvasc), 2.5 MG PO DAILY Apixaban (Eliquis), 5 MG PO BID Calcium/Vitamin D (Os-Jonah 500 Plus D), 1 TAB PO DAILY Fluticasone Propionate (Nasal) (Flonase Allergy Relief), 1 SPRAY CORRIE QAM Gabapentin (Gabapentin), 300 MG PO HS Ibandronate Sodium (Boniva), 150 MG PO MONTHLY Levothyroxine Sodium (Synthroid), 88 MCG PO DAILY Omeprazole (Prilosec), 40 MG PO QAM Simvastatin (Zocor), 20 MG PO DAILY Valacyclovir (Valtrex), 1,000 MG PO TID Scheduled PRN Fluocinolone Acetonide (Fluocinolone Acetonide), 1 APPLN TOP BID PRN for PRN Polyethylene Glycol 3350 (Miralax), 17 GM PO DAILY PRN for Constipation Allergies Coded Allergies: Nitrofurantoin (Verified Allergy, Intermediate, HIVES,ITCHING, 12/06/16) Azithromycin (Verified Allergy, Unknown, HIVES, 09/17/16) Penicillins (Verified Allergy, Unknown, HIVES,PT SAYS SHE'S NOT ALLERGIC TO IT ANYMORE, 12/06/16) PT SAID SHE'S NOT ALLERGIC TO IT ANYMORE Physical Exam Vital Signs Date Time Temp Pulse Resp B/P (MAP) Pulse Ox O2 Delivery O2 Flow Rate FiO2 12/06/16 16:30 96 31 97 12/06/16 16:04 116/54 12/06/16 15:00 95 26 12/06/16 14:51 98 12/06/16 14:33 Room Air 95 12/06/16 14:32 100 16 105/54 95 Room Air 12/06/16 14:30 23 12/06/16 14:07 105/54 12/06/16 14:00 98 26 93 12/06/16 13:55 113/49 12/06/16 13:41 36.8 116 25 98/66 94 Room Air 12/06/16 13:36 98/66 Physical Exam GENERAL: Sitting up in bed disheveled alert, ill appearing, well nourished, no distress, non-toxic EYE EXAM: normal conjunctiva, PERRL and EOM's grossly intact OROPHARYNX: no exudate, no erythema, lips, buccal mucosa, and tongue normal and mucous membranes are moist NECK: supple, no nuchal rigidity, no adenopathy, non-tender LUNGS: Clear to auscultation. Normal chest wall mechanics HEART: tachycardic no murmurs, S1 normal and S2 normal ABDOMEN: abdomen soft, minimal lower abdominal tender, normo-active bowel sounds , no masses, no rebound or guarding. BACK: Back is symmetrical on inspection and there is no deformity, no midline tenderness, no CVA tenderness. SKIN: no rashes and no bruising UPPER EXTREMITIES: upper extremities are grossly normal. LOWER EXTREMITIES: No pitting edema. NEURO EXAM: Normal sensorium, cranial nerves II-XII grossly intact, normal speech, no gross weakness of arms, no gross weakness of legs. Gross sensation intact. RECTAL: Gross blood on rectal. No hemorrhoids Medical Decision & Procedures ER Provider Diagnostic Interpretation: Radiology results as stated below per my review and the radiologist's interpretation: CHEST ONE VIEW PORTABLE CLINICAL HISTORY: Gastrointestinal hemorrhage COMPARISON STUDY: 09/17/2016 FINDINGS: The cardiac and mediastinal contours remain stable. There is developing interstitial thickening. This could be secondary to either mild pulmonary vascular congestion, or a bilateral interstitial inflammatory process. Clinical and radiographic follow-up is recommended. No significant pleural effusions are visualized.[No free air is visualized. IMPRESSION: Progressive elevation of the interstitium. This is likely secondary to either mild pulmonary vascular congestion or a bilateral interstitial inflammatory process. Clinical and radiographic follow-up is recommended Electronically signed by: Armando Barker M.D. 12/06/2016 3:14 PM Dictated Date/Time: 12/06/2016 3:[address] SCAN OF THE ABDOMEN AND PELVIS WITHOUT CONTRAST CLINICAL HISTORY: Abdominal pain. Gastrointestinal hemorrhage. COMPARISON STUDY: 09/17/2016 TECHNIQUE: CT scan of the abdomen and pelvis was performed from the lung bases to the proximal femurs. Images are reviewed in the axial, sagittal, and coronal planes. IV contrast was not administered for this examination. CT DOSE: 739.88 mGy.cm FINDINGS: Lower chest: There are dependent interstitial opacities, perhaps minimally progressive when compared the preceding study. There are no significant pleural effusions. Liver: The unenhanced liver is normal in size, contour, and attenuation. There is no intrahepatic biliary ductal dilatation. Gallbladder: Cholelithiasis Spleen: Normal in size and attenuation. Pancreas: Unremarkable. Adrenal glands: Unremarkable. Kidneys: There are multiple right renal calculi measuring up to 9 mm in diameter. There is a 5 mm left renal calculus. There are bilateral hypodense renal lesions the largest of which arises from the lower pole the left kidney measuring 31 mm. These statistically represent cysts. Bowel: There are no transition zones to indicate obstruction. There is colonic wall thickening extending from the rectum to the splenic flexure. The findings are indicative of with a nonspecific colitis. There is no evidence of acute appendicitis Peritoneum: There is no intraperitoneal free air or abdominal ascites. Vasculature: The abdominal aorta is normal in course and caliber. Adenopathy: None. Pelvic viscera: The bladder, and pelvic viscera are unremarkable. Skeletal structures: There is a severe L3 compression fracture with retropulsion. This remains stable. IMPRESSION: 1. No evidence of bowel obstruction. No evidence of free air 2. Cholelithiasis 3. Bilateral nephrolithiasis 4. Moderate colonic wall thickening extending from the rectum to the splenic flexure. The findings are indicative of a colitis Electronically signed by: Armando Barker M.D. 12/06/2016 3:36 PM Dictated Date/Time: 12/06/2016 3:31 PM Laboratory Results 12/06/16 14:05 Red Blood Count 3.84, Mean Corpuscular Volume 100.8, Mean Corpuscular Hemoglobin 32.8, Mean Corpuscular Hemoglobin Concent 32.6, Mean Platelet Volume 11.2, Neutrophils (%) (Auto) 81.4, Lymphocytes (%) (Auto) 14.5, Monocytes (%) ( Auto) 3.2, Eosinophils (%) (Auto) 0.6, Basophils (%) (Auto) 0.1, Neutrophils # ( Auto) 10.57, Lymphocytes # (Auto) 1.88, Monocytes # (Auto) 0.41, Eosinophils # ( Auto) 0.08, Basophils # (Auto) 0.01 12/06/16 16:05 12/06/16 14:05 Test 12/06/16 14:05 12/06/16 15:12 12/06/16 16:05 White Blood Count 12.97 K/uL (4.8-10.8) Red Blood Count 3.84 M/uL (4.2-5.4) Hemoglobin 12.6 g/dL (12.0-16.0) Hematocrit 38.7 % (37-47) Mean Corpuscular Volume 100.8 fL (80-100) Mean Corpuscular Hemoglobin 32.8 pg (25-34) Mean Corpuscular Hemoglobin Concent 32.6 g/dl (32-36) Platelet Count 227 K/uL (130-400) Mean Platelet Volume 11.2 fL (7.4-10.4) Neutrophils (%) (Auto) 81.4 % Lymphocytes (%) (Auto) 14.5 % Monocytes (%) (Auto) 3.2 % Eosinophils (%) (Auto) 0.6 % Basophils (%) (Auto) 0.1 % Neutrophils # (Auto) 10.57 K/uL (1.4-6.5) Lymphocytes # (Auto) 1.88 K/uL (1.2-3.4) Monocytes # (Auto) 0.41 K/uL (0.11-0.59) Eosinophils # (Auto) 0.08 K/uL (0-0.5) Basophils # (Auto) 0.01 K/uL (0-0.2) RDW Standard Deviation 49.3 fL (36.4-46.3) RDW Coefficient of Variation 13.3 % (11.5-14.5) Immature Granulocyte % (Auto) 0.2 % Immature Granulocyte # (Auto) 0.02 K/uL (0.00-0.02) Anion Gap 9.0 mmol/L (3-11) Est Creatinine Clear Calc Drug Dose 14.2 ml/min Estimated GFR () 17.9 Estimated GFR (Non- 15.4 BUN/Creatinine Ratio 15.3 (10-20) Calcium Level 8.7 mg/dl (8.5-10.1) Total Bilirubin 0.3 mg/dl (0.2-1) Direct Bilirubin mg/dl (0-0.2) Aspartate Amino Transf (AST/SGOT) 34 U/L (15-37) Alanine Aminotransferase (ALT/SGPT) 18 U/L (12-78) Alkaline Phosphatase 112 U/L (45-117) Troponin I 3.210 ng/ml (0-0.045) Total Protein 6.8 gm/dl (6.4-8.2) Albumin 2.7 gm/dl (3.4-5.0) Lipase 52 U/L (73-393) Chemistry Specimen Hemolysis Prothrombin Time 10.8 SECONDS (9.0-12.0) Prothromb Time International Ratio 1.0 (0.9-1.1) Activated Partial Thromboplast Time 30.9 SECONDS (21.0-31.0) Partial Thromboplastin Ratio 1.2 Urine Color YELLOW Urine Appearance CLOUDY (CLEAR) Urine pH 5.0 (4.5-7.5) Urine Specific [place] 1.015 (1.000-1.030) Urine Protein 1+ (NEG) Urine Glucose (UA) NEG (NEG) Urine Ketones NEG (NEG) Urine Occult Blood 1+ (NEG) Urine Nitrite POS (NEG) Urine Bilirubin NEG (NEG) Urine Urobilinogen NEG (NEG) Urine Leukocyte Esterase MODERATE (NEG) Urine WBC (Auto) >30 /hpf (0-5) Urine RBC (Auto) 0-4 /hpf (0-4) Urine Hyaline Casts (Auto) 1-5 /lpf (0-5) Urine Epithelial Cells (Auto) 5-10 /lpf (0-5) Urine Bacteria (Auto) 2+ (NEG) Lactic Acid Level 1.6 mmol/L (0.4-2.0) Laboratory results per my review. Medications Administered Medications (Trade) Dose Ordered Sig/[place] Route Start Time Stop Time Status Last Admin Dose Admin Sodium Chloride 1,000 ml @ 999 mls/hr Q1H1M STAT IV 12/06/16 14:14 12/06/16 15:14 DC 12/06/16 14:30 999 MLS/HR Sodium Chloride 500 ml @ 999 mls/hr Q31M STAT IV 12/06/16 14:57 12/06/16 15:27 DC 12/06/16 15:18 999 MLS/HR Polyethylene (Miralax Powder Packet) 17 gm DAILY PRN PO 12/06/16 16:30 01/05/17 16:29 12/06/16 19:42 17 GM ECG Indication: abdominal pain Rate (beats per minute): 97 Rhythm: sinus tachycardia, sinus rhythm Findings: PVC, ST elevation (lead 2) ED Course ED COURSE: Vital signs were reviewed and showed hypotensive, tachycardic. The patients medical record was reviewed The above diagnostic studies were performed and reviewed. ED treatments and interventions as stated above. Medication Reconciliation: I attest that I have personally reviewed the patient' s current medication list. 1407: The patient was evaluated in room A02. A complete history and physical examination was performed. 1414: Sodium Chloride 1000 ml @ 999 mls/hr IV. 1430: Ioversol 125 ml IV. 1457: Sodium Chloride 500 ml @ 999 mls/hr IV. 1620: I discussed the patient's case with Dr. Harper, [facility] Hospitalist. He understands the patient's condition and agrees to accept the patient. The patient will be further evaluated. 1625: I reevaluated the patient and she is resting comfortably. I updated her on her treatment plan and she agrees for admission. 1634: Rocephin Injection 1 gram IV. 1710: GI paged four separate times but no callback. Medical Decision Differential diagnoses includes but is not limited to gastritis, peptic ulcer disease, GERD, gallbladder disease, pancreatitis, small bowel obstruction, acute coronary syndrome, pericarditis, ischemic bowel, irritable bowel disease, irritable bowel syndrome, appendicitis, diverticulitis, malignancy, hernia, urinary tract infection, torsion, [/ectopic (if female)], perforation, trauma, infectious. Patient is a 71-year-old female who presents the ER for bright red blood per rectum that has been present for the past 24 hours. Patient is on a Xa inhibitor. She denies any chest pain or shortness breath. EKG does show ischemic changes. Upon presentation she was tachycardic and slightly hypotensive. CBC shows a mild leukocytosis of 12,000. Hemoglobin was 12 initially. BMP shows an elevated potassium and creatinine. Troponin was significantly elevated at 3.2. UA shows a clear UTI. Rectal was gross heme positive blood. No active bleeding along the ER. I did type and cross her for 4 units initially as I expected the hemoglobin to trend down as both patient and family members note that there was blood over the entire bathroom and she has been bleeding for the past 4 hours. 3 IVs were established. Discussed with hematology reversing Xa but following discussion we do not think that this would be beneficial at this time. Attempted to contact GI for separate occasions but received no call back. I did repeat the hemoglobin she was in the ER and he did not change. Following this I did not transfuse her. CT showed a pancolitis. Rocephin was given for the UTI. Lactate was 1.6. I do not believe with this normal lactate that is consistent with ischemic colitis. Admitted the patient to internal medicine for further workup of her GI bleed likely secondary to a colitis and ischemic EKG with positive troponin but no chest pain or shortness breath. Consults Time Called: 1620 Consulting Physician: Dr. Harper Returned Call: 1620 I discussed the patient's case with Dr. Harper, [facility] Hospitalist. He understands the patient's condition and agrees to accept the patient. The patient will be further evaluated. Impression Primary Impression: GI bleed Additional Impressions: Troponin level elevated UTI (urinary tract infection) Scribe Attestation The scribe's documentation has been prepared under my direction and personally reviewed by me in its entirety. I confirm that the note above accurately reflects all work, treatment, procedures, and medical decision making performed by me. Departure Information Dispostion Being Evaluated By Hospitalist (Dr. Harper) Referrals Thang Lakhani M.D. (PCP) Patient Instructions My [facility] Problem Qualifiers Primary Impression: GI bleed GI bleed type/associated pathology: unspecified gastrointestinal hemorrhage type Qualified Codes: K92.2 - Gastrointestinal hemorrhage, unspecified Additional Impressions: UTI (urinary tract infection) Urinary tract infection type: site unspecified Hematuria presence: without hematuria Qualified Codes: N39.0 - Urinary tract infection, site not specified
[2016-12-06] MEDS ORDERED: SIMVASTATIN 20 MG TAB PO SCH (21:00)
[2016-12-06 23:40] VITALS: BP 97/63; PULSE 94; TEMP 36.7; O2SAT 95
[2016-12-07] MEDS: SODIUM CHLORIDE 0.9% 1000ML 1,000 ML IV SCH (01:45)
[2016-12-07 04:20] VITALS: BP 100/70; PULSE 91; TEMP 36.9; O2SAT 94
[2016-12-07] MEDS: LEVOTHYROXINE 88 MCG TAB PO SCH (06:04)
[2016-12-07 06:32] LABS: BUN/CREATININE RATIO 16.9 (10-20); CALCIUM 7.9 mg/dl (8.5-10.1); MAGNESIUM 1.7 mg/dl (1.8-2.4); PHOSPHORUS 3.1 mg/dl (2.5-4.9); POTASSIUM 5.3 mmol/L (3.5-5.1)
[2016-12-07] MEDS ORDERED: PERFLUTREN LIPID MICROSPHERE (DEFINITY) IV ONE (07:55)
[2016-12-07 08:00] VITALS: BP 112/74; PULSE 96; TEMP 36.9; O2SAT 96
[2016-12-07] MEDS: CALCIUM 600MG + VIT D 400 IU TAB PO SCH (08:14)
[2016-12-07] MEDS: MAGNESIUM SULFATE 1GM / D5W 1 GM in PREMIXED IN D5W 100 ML IV SCH ×2 (08:15→09:25)
[2016-12-07 08:40] VITALS: Ht 142.2 cm; Wt 77.2 kg
[2016-12-07] MEDS ORDERED: AMLODIPINE BESYLATE 5 MG TAB PO SCH (09:00)
[2016-12-07] MEDS: METOPROLOL SUCC 25MG EXT REL TAB PO SCH (09:09)
--- NOTE | 2016-12-07 09:54 | CARDIOLOGY CONSULTATION ---
DATE OF CONSULTATION: 12/07/2016 TIME: 8:38 a.m. CONSULTING PHYSICIAN: Dr. Harper. REASON FOR CONSULTATION: Elevated troponin. HISTORY OF PRESENT ILLNESS: Ms. Perez is a very pleasant 71-year-old female with history significant for chronic kidney disease followed by nephrology, dyslipidemia, diabetes, and DVT. She also has a remote history of lymphoma and underwent surgery as well as chemotherapy in 2007 through the [facility] system. She reported to [facility] yesterday after having 2 days of intermittent bright red blood per rectum. She states that she had a suppository 2 days ago for constipation. She then had bloody bowel movement. She did not believe that she had multiple bowel movements but rather only one and does not recall having any bowel movement yesterday. There has also been concerned by nursing staff for hematuria. The reason she came to the hospital yesterday rather than 2 days ago is because she also had left lower abdominal pain that worsened yesterday. She continues to have abdominal pain. CT scan suggested colitis extending from the rectum to the splenic flexure. When she was initially in the Emergency Department, she was found to be slightly hypotensive with a blood pressure 98/66 mmHg. She was given 2 normal saline boluses of 1.5 liters followed by normal saline at 125 mL per hour since then. Her blood pressure has mostly been normotensive since then with one episode of slight hypotensive 97/63 mmHg. She denies orthopnea, PND, syncope, near syncope, palpitations. She denies any chest discomfort whatsoever. She denies any recent stressful situation in her life. She does have occasional shortness of breath with abdominal pain exacerbation, but otherwise denies any breathing issues. She has chronic bilateral leg swelling ever since her DVTs, which were diagnosed in January of last year, according to her. According to records; however, she had a Doppler study done in December of 2014, stating that she had a chronic thrombus similar to an exam in December of 2011. Therefore, it appears as though she has had DVT since at least 2011, according to Doppler studies. She denies ever having pulmonary emboli. She has had CT scan in the past; however, this suggested mild emphysema and interstitial lung disease. She denies fevers, chills, nausea, vomiting. She has not had much of an appetite due to her abdominal pain. She denies stroke or stroke-like symptoms. She has been on apixaban for her DVTs. This has been discontinued by the primary service upon hospitalization. She was also found to be in acute on chronic renal insufficiency with a creatinine level as high as 2.9. A troponin was checked by the Emergency Department and was found to be 3.21, which prompted the cardiology consultation. REVIEW OF SYSTEMS: As above and otherwise unremarkable. PAST MEDICAL HISTORY: 1. Chronic kidney disease. 2. Compression fracture of lumbar vertebrae with upcoming surgery planned in December. 3. Diabetes. 4. DVT, possibly diagnosed in 2011 or earlier, according to records. 5. Dyslipidemia. 6. Kidney stones. 7. Lymphoma, status post surgery and chemotherapy in 2007. 8. Osteopenia. 9. Thyroid disorder. 10. Emphysema or interstitial lung disease, according to CT scans in the past. HOME MEDICATIONS: 1. Include amlodipine 2.5 mg daily, which she states was started to prevent hypertension 2. Eliquis 5 mg twice daily. 3. Simvastatin 20 mg daily. 4. Levothyroxine 88 mcg daily. 5. Gabapentin 300 mg at bedtime. 6. Prilosec 40 mg daily. 7. Valtrex 1000 mg t.i.d. ALLERGIES: INCLUDE NITROFURANTOIN AND AZITHROMYCIN. She states that she is no longer allergic to penicillin. SOCIAL HISTORY: Smoked up to a pack per day for approximately 50 years. She is currently trying to quit and is down to 4 cigarettes a day. No significant alcohol. She is . She has 3 children who are continued to be part of her life. She has 2 grandchildren. 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 She is currently alone in her hospital room. FAMILY HISTORY: Father had some sort of heart operation while in his late 70s. She does not know any details. PHYSICAL EXAMINATION: VITAL SIGNS: Temperature 36.9 degrees, heart rate 96 beats per minute, respiration rate 16, blood pressure 112/74 mmHg, oxygen saturation 96% on room air. Weight 76.1 kg. GENERAL: No acute distress. She is alert and oriented. HEENT: Anicteric sclerae. NECK: No appreciable JVD. No bruits. Normal carotid upstrokes bilaterally. CARDIAC: PMI was nonpalpable. There was no ventricular heave. Regular, normal S1, S2. 2/6 early peaking systolic ejection murmur best heard at the right upper sternal border. No rubs or gallops. LUNGS: Bibasilar rales, otherwise clear. ABDOMEN: Soft. Tender in the left lower quadrant, no rebound tenderness, nondistended. Normoactive bowel sounds. No bruits noted. EXTREMITIES: No pitting edema. Right lower extremity is larger than the left lower extremity in the distal segment, which apparently is chronic. No cyanosis. 2+ radial pulses bilaterally. 2+ dorsalis pedis pulses bilaterally. PSYCHIATRIC: Affect appears appropriate. DIAGNOSTIC DATA: Telemetry personally reviewed. Sinus rhythm and sinus tachycardia. No ventricular arrhythmias. ECGs personally reviewed. ECG done on 12/06/2016 at 1353 - sinus rhythm with occasional PVCs. Anterolateral infarct. Inferior infarct. Anterolateral infarct now present compared to 09/17/2016 ECG. Repeat ECG at 1930 on 12/06/2016 - sinus rhythm at 96 beats per minute. Possible inferior infarct. Possible anterolateral infarct. Diffuse ST elevation. Echocardiogram was being performed at the bedside. Images were personally reviewed at the bedside with the patient. Preliminary review demonstrated akinetic apex. The basal segments are hyperdynamic. However, LV systolic function appears to be reduced, but not severely. Will perform measurements when the echo is processed and available. There did not appear to be an apical thrombus on preliminary review. LABORATORY DATA: White blood cell count 12.97, hemoglobin 12.6 and has trended downward to 10.6, platelets 227. Sodium 145; potassium 5.3, down from 5.4; BUN 34, down from 44; creatinine 2, down from 2.9. Troponin initially 3.21. Troponin was reordered this morning and has trended down to 1.65. Magnesium 1.7, AST was 34, ALT was 18. TSH was not performed but will be ordered. INR was 1. Chest x-ray report reviewed performed on the day of presentation on 12/06/2016. Radiology has interpreted this as progressive elevation of the interstitium, likely secondary to mild pulmonary vascular congestion or bilateral interstitial inflammatory process, according to radiology. A CT scan of the abdomen and pelvis without contrast was also performed and interpreted by radiology as moderate colonic wall thickening extending from the rectum to the splenic flexure, indicative of colitis. Bilateral nephrolithiasis and cholelithiasis was also noted. Prior CT scan of the chest report reviewed. ASSESSMENT AND PLAN: 1. Cardiomyopathy: She does have an apical wall motion abnormality and likely mildly reduced left ventricular systolic function with full evaluation of her function, pending upon formal review of her echo. She has multiple risk factors for coronary artery disease, but does not give any presentation consistent with acute coronary syndrome as her presentation for this visit was bloody stools and left lower quadrant abdominal pain. Would recommend antiplatelet therapy if not contraindicated, but GI evaluation is pending. Will discontinue amlodipine and start metoprolol succinate 25 mg daily. Would recommend titration as appropriate. Avoiding MAGALY inhibitors or ARB due to renal insufficiency and hyperkalemia. The pattern on echo suggests possible stress-induced cardiomyopathy; however, with risk factors of coronary artery disease, cannot rule out left anterior descending artery infarct. Cardiac catheterization is not recommended given the fact that she presented with acute GI bleeding and also acute on chronic renal failure. Recommend medical therapy. 2. Elevated troponins/non-ST elevation myocardial infarction: She did not present with acute coronary syndrome. Troponins are elevated. This could represent myocardial infarction that happened in the past and has since been trending downward or due to stress-induced cardiomyopathy. There is no urgent indication for cardiac catheterization given her bleeding and renal issues, would avoid cardiac catheterization at this time. She is comfortable with this decision. Recommend antiplatelet therapy if safe from a GI standpoint. Recommend beta claudia as above. Recommend high intensity statin therapy in place of simvastatin. She will be placed on atorvastatin. Risk factor modification. Although, coronary artery disease has not been established based on her risk factors and wall motion abnormalities on echocardiogram, would treat for coronary artery disease. 3. Dyslipidemia: Replacing simvastatin with atorvastatin for high intensity statin therapy given presentation. 4. Gastrointestinal bleed: As per primary service and GI. GI consultation is pending. 5. Hyperkalemia and acute on chronic renal insufficiency: As per primary service. She does follow with nephrology as an outpatient. Recommend discontinuation of IV fluids given the fact that she does have reduced left ventricular systolic function has rales at her bases. It is not clear if that is a chronic finding as she does have a CT imaging done in the past suggesting interstitial lung disease. Either way, her blood pressure is stable and will discontinue IV fluids for now. 6. Tobacco abuse: Congratulated that she has cut back significantly and is trying to quit. Recommended that she quit smoking altogether. 7. Disposition: Highly complex medical issues. Plan of care has been discussed with the patient as well as Dr. Ordonez of the primary hospitalist service. I will be away from the hospital for the next 2 days. The on-call habilitative interventionist covering for [facility] will continue to follow along. Please call for any questions or concerns. Thank for allowing me to participate in care of Ms. Perez.
--- NOTE | 2016-12-07 10:34 | Gastrointestinal Consultation ---
Gastrointestinal Consultation Date of Consultation: Dec 07, 2016 Attending Physician: Dr. Harper Consulting Physician: Dr. Rabago/BAL Buckner Reason for Consultation: GIB History of Present Illness Patient is a 71 year old female with a history of chronic kidney disease, DVT, hypothyroidism and tobacco use admitted with new onset of bright red rectal bleeding, constipation and straining with bowel movements beginning two days prior to arrival. She states that she is chronically constipated and was noted to have a screening colonoscopy in 2013 which demonstrated a long, fluid filled colon. She is reporting lower abdominal crampy abdominal pain that she rates as 9/10 in intensity at present. No nausea or vomiting, fever or chills or other GI complaints. CT imaging was performed and consistent with a mild to moderate left-sided colitis. On admission, he hemoglobin was normal 12.6. She does take Eliquis at home but denies any NSAID use. Troponin was significantly elevated at 3.210. Patient was seen by Dr. Trujillo and per review of echocardiogram has suggested ischemic cardiomyopathy. Currently not a candidate for cardiac catheterization due to rectal bleeding and renal issues. 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 Chronic constipation 2. GERD Past Surgical History: 1. section 2. Complete colonoscopy 3. EGD 4. D&C 5. Lymphadenectomy 6. Tubal ligation Family History FHx: diabetes FHx: heart disease Family history is negative for GI malignancy and IBD Social History Smoking Status: Current Every Day Smoker Alcohol Use: none Drug Use: none Marital Status: Housing Status: lives with family Occupation Status: retired Allergies Coded Allergies: Nitrofurantoin (Verified Allergy, Intermediate, HIVES,ITCHING, 12/06/16) Azithromycin (Verified Allergy, Unknown, HIVES, 09/17/16) Penicillins (Verified Allergy, Unknown, HIVES,PT SAYS SHE'S NOT ALLERGIC TO IT ANYMORE, 12/06/16) PT SAID SHE'S NOT ALLERGIC TO IT ANYMORE Current Medications Home Meds and Scripts Medications Dose Route/Sig Max Daily Dose Days Date Category Dose Instructions Valtrex (Valacyclovir HCl) 500 Mg Tab 1,000 Mg PO TID 12/06/16 Reported take 1000mg tid for 7 days Fluocinolone Acetonide 45 Appln/15 Gm Cr 1 Appln TOP BID PRN 09/17/16 Reported Prilosec (Omeprazole) 40 Mg Cap 40 Mg PO QAM 09/17/16 Reported Flonase Allergy Relief (Fluticasone Propionate (Nasal)) 50 Mcg/Act Spr 1 [place] CORRIE QAM 09/17/16 Reported Gabapentin 300 Mg Cap 300 Mg PO HS 06/15/16 Reported Eliquis (Apixaban) 5 Mg Tab 5 Mg PO BID 03/28/16 Reported Zocor (Simvastatin) 20 Mg Tab 20 Mg PO DAILY 12/08/14 Reported Miralax (Polyethylene Glycol 3350) 1 Pow Pow 17 Gm PO DAILY PRN 12/08/14 Reported Boniva (Ibandronate Sodium) 150 Mg Tab 150 Mg PO MONTHLY 07/24/13 Reported Synthroid (Levothyroxine Sodium) 88 Mcg Tab 88 Mcg PO DAILY 07/24/13 Reported Os-Jonah 500 Plus D (Calcium/Vitamin D) Tab 1 Tab PO DAILY 07/14/13 Reported Norvasc (Amlodipine Besylate) 2.5 Mg Tab 2.5 Mg PO DAILY 07/14/13 Reported Review of Systems Constitutional: No fever, No chills Eyes: No problem reported ENT: No problem reported Respiratory: No cough, No wheezing Cardiac: No chest pain, No palpitations Abdomen: + see HPI Musculoskeletal: No joint pain Female : No problem reported Neuro: No problem reported Psych: No problem reported Skin: No problem reported Physical Exam Date Time Temp Pulse Resp B/P (MAP) Pulse Ox O2 Delivery O2 Flow Rate FiO2 12/07/16 08:00 Room Air 12/07/16 08:00 36.9 96 16 112/74 (87) 96 Room Air 12/07/16 04:20 36.9 91 18 100/70 (80) 94 Room Air 12/07/16 04:15 Room Air 12/07/16 00:00 Room Air 12/06/16 23:40 36.7 94 18 97/63 (74) 95 Room Air 12/06/16 20:00 Room Air 12/06/16 20:00 36.5 97 20 118/74 (89) 95 Room Air 12/06/16 18:40 36.4 97 20 112/72 98 Room Air 12/06/16 18:01 107/52 12/06/16 17:41 100 25 97 12/06/16 17:36 100 23 97 12/06/16 17:31 111/82 12/06/16 17:06 100 27 96 12/06/16 17:01 114/70 12/06/16 16:36 98 17 97 12/06/16 16:31 127/62 12/06/16 16:30 96 31 97 12/06/16 16:04 116/54 12/06/16 15:00 95 26 12/06/16 14:51 98 12/06/16 14:33 Room Air 95 12/06/16 14:32 100 16 105/54 95 Room Air 12/06/16 14:30 23 12/06/16 14:07 105/54 12/06/16 14:00 98 26 93 12/06/16 13:55 113/49 12/06/16 13:41 36.8 116 25 98/66 94 Room Air 12/06/16 13:36 98/66 General Appearance: no apparent distress Eyes: EOMI ENT: hearing grossly normal Neck: supple Respiratory/Chest: lungs clear, normal breath sounds, no respiratory distress Cardiovascular: regular rate, rhythm, no gallop, no murmur Abdomen: normal bowel sounds, soft, + tenderness Extremities: no pedal edema Neurologic/Psych: alert, normal mood/affect, oriented x 3 Skin: warm/dry Laboratory Results Last 24 Hours Test 12/06/16 14:05 12/06/16 15:12 12/06/16 16:05 12/06/16 23:24 White Blood Count 12.97 K/uL Red Blood Count 3.84 M/uL Hemoglobin 12.6 g/dL 12.6 g/dL 12.2 g/dL Hematocrit 38.7 % 39.1 % Mean Corpuscular Volume 100.8 fL Mean Corpuscular Hemoglobin 32.8 pg Mean Corpuscular Hemoglobin Concent 32.6 g/dl Platelet Count 227 K/uL Mean Platelet Volume 11.2 fL Neutrophils (%) (Auto) 81.4 % Lymphocytes (%) (Auto) 14.5 % Monocytes (%) (Auto) 3.2 % Eosinophils (%) (Auto) 0.6 % Basophils (%) (Auto) 0.1 % Neutrophils # (Auto) 10.57 K/uL Lymphocytes # (Auto) 1.88 K/uL Monocytes # (Auto) 0.41 K/uL Eosinophils # (Auto) 0.08 K/uL Basophils # (Auto) 0.01 K/uL RDW Standard Deviation 49.3 fL RDW Coefficient of Variation 13.3 % Immature Granulocyte % (Auto) 0.2 % Immature Granulocyte # (Auto) 0.02 K/uL Sodium Level 142 mmol/L Potassium Level 5.4 mmol/L Chloride Level 109 mmol/L Carbon Dioxide Level 24 mmol/L Anion Gap 9.0 mmol/L Blood Urea Nitrogen 44 mg/dl Creatinine 2.90 mg/dl Est Creatinine Clear Calc Drug Dose 14.2 ml/min Estimated GFR () 17.9 Estimated GFR (Non- 15.4 BUN/Creatinine Ratio 15.3 Random Glucose 97 mg/dl Calcium Level 8.7 mg/dl Total Bilirubin 0.3 mg/dl Direct Bilirubin mg/dl Aspartate Amino Transf (AST/SGOT) 34 U/L Alanine Aminotransferase (ALT/SGPT) 18 U/L Alkaline Phosphatase 112 U/L Troponin I 3.210 ng/ml Total Protein 6.8 gm/dl Albumin 2.7 gm/dl Lipase 52 U/L Chemistry Specimen Hemolysis Prothrombin Time 10.8 SECONDS Prothromb Time International Ratio 1.0 Activated Partial Thromboplast Time 30.9 SECONDS Partial Thromboplastin Ratio 1.2 Urine Color YELLOW Urine Appearance CLOUDY Urine pH 5.0 Urine Specific [place] 1.015 Urine Protein 1+ Urine Glucose (UA) NEG Urine Ketones NEG Urine Occult Blood 1+ Urine Nitrite POS Urine Bilirubin NEG Urine Urobilinogen NEG Urine Leukocyte Esterase MODERATE Urine WBC (Auto) >30 /hpf Urine RBC (Auto) 0-4 /hpf Urine Hyaline Casts (Auto) 1-5 /lpf Urine Epithelial Cells (Auto) 5-10 /lpf Urine Bacteria (Auto) 2+ Lactic Acid Level 1.6 mmol/L Test 12/07/16 05:11 12/07/16 07:21 6/16/17 07:36 Hemoglobin 10.6 g/dL Sodium Level 145 mmol/L Potassium Level 5.3 mmol/L Chloride Level 115 mmol/L Carbon Dioxide Level 20 mmol/L Anion Gap 10.0 mmol/L Blood Urea Nitrogen 34 mg/dl Creatinine 2.00 mg/dl Est Creatinine Clear Calc Drug Dose 20.6 ml/min Estimated GFR () 28.0 Estimated GFR (Non- 24.2 BUN/Creatinine Ratio 16.9 Random Glucose 72 mg/dl Calcium Level 7.9 mg/dl Phosphorus Level 3.1 mg/dl Magnesium Level 1.7 mg/dl Troponin I 1.650 ng/ml Bedside Glucose 69 mg/dl 80 mg/dl Impression Patient is a 71 year old female with chronic constipation admitted with bright red rectal bleeding, elevated troponin and abnormal CT imaging suggestive of left-sided colon wall thickening. Differential diagnoses include: viral/bacterial infection vs IBD vs ischemia. Given her clinical presentation with elevated troponin and chronic constipation , most likely ischemic colitis. Plan 1. Okay for a clear liquid diet to be advanced to low residue as tolerated. 2. Start MiraLAX 17 g daily in 8 ounces of liquid. 3. Start Ciprofloxacin 500 mg BID and Metronidazole 500 mg TID x 10 days. Medications ordered PO per patient request. 4. Supportive care per primary team. 5. Outpatient colonoscopy in 6 weeks for further evaluation if cleared from a cardiac standpoint to undergo invasive work up. Thank you for allowing us to participate in the care of this pleasant patient. If you have any questions or concerns, please do not hesitate to contact us. Agree with BAL Buckner as above Abd: Soft, Tender LUQ, ND, +BS Continue current therapy Discussed natural course of Ischemic Colitis with patient. 90% of cases resolve spontaneously without need for surgical intervention. Continue Antibiotics to prevent bacterial translocation across compromised colonic mucosa.
[2016-12-07] MEDS: CIPROFLOXACIN 500 MG TAB PO SCH ×2 (11:08→21:01)
[2016-12-07] MEDS: METRONIDAZOLE 500 MG TAB PO SCH ×2 (11:08→21:02)
[2016-12-07 11:11] VITALS: BP 112/62; PULSE 81; TEMP 36.5; O2SAT 96
[2016-12-07] MEDS ORDERED: ASPIRIN 81 MG ECTAB PO ONE (13:00)
--- NOTE | 2016-12-07 14:01 | ECHOCARDIOGRAM REPORT ---
*NOTICE TO RECEIVING [employer] [employer] This information is strictly Confidential and protected under [place] law. [place] law prohibits you from making any further disclosure of this information unless further disclosure is expressly permitted by the written consent of the person to whom it pertains or is authorized by law. A general authorization for the release of medical or other information is not sufficient for this purpose. Hospital accepts no responsibility if the information is made available to any other person, INCLUDING THE PATIENT. Interpretation Summary * Name: SOFYA COX Study Date: 12/07/2016 07:14 AM BP: 112/74 mmHg * Patient Location: C.2T\S\S230\S\2 HR: 96 * : 1945 (M/d/yyyy) Gender: Female Height: 56 in * Age: 71 yrs Ethnicity: CA Weight: 166 lb * Ordering Physician: Khurram Harper * Referring Physician: Self, Referred * Performed By: Yohana Gross RDCS * * Reason For Study: VT * BSA: 1.6 m2 * -- Conclusions -- * 1. Normal left ventricular size with low-normal systolic function. EF 50-55%. The mid lateral and mid anteroseptal wall segments appear hypokinetic. The distal wall segments and apex appear akinetic. Other wall segments are hyperdynamic. Mild concentric left ventricular hypertrophy. Type 1 diastolic dysfunction. No apical thrombus visualized. * 2. Mild left atrial dilation. * 3. Moderate mitral annular calcification. * 4. Normal estimated right ventricular systolic pressure; 36 mmHg. * 5. IV Definity Was administered to better evaluate the apex. * 6. Compared to prior study on 12/08/2012, wall motion abnormalities are now present as noted above. Procedure Details * A complete two-dimensional transthoracic echocardiogram was performed (2D, M-mode, Doppler and color flow Doppler). * Contrast was injected into an intravenous site in the left arm. * A contrast injection of Definity was performed to improve assessment for apical thrombus. * One vial of Definity ultrasound contrast was diluted in normal saline to a total volume of 10 ml. A total of '2' ml of solution was administered during imaging. * Lot # [id number] of Definity utilized for procedure. * Expiration date FEB 08. * The attending nurse who injected the contrast agent was Edgard Reno RN. Left Ventricle * Normal left ventricular size with low-normal systolic function. EF 50-55%. The mid lateral and mid anteroseptal wall segments appear hypokinetic. The distal wall segments and apex appear akinetic. Other wall segments are hyperdynamic. Mild concentric left ventricular hypertrophy. Type 1 diastolic dysfunction. No apical thrombus visualized. Right Ventricle * The right ventricle is normal in size and function. * The right ventricular systolic function is normal as assessed by tricuspid annular plane systolic excursion (TAPSE) (normal >1.5 cm). Atria * The left atrium is mildly dilated. * Right atrial size is normal. * There is no evidence of atrial septal defect, but resolution does not allow assessment for a patent foramen ovale. Mitral Valve * There is moderate mitral annular calcification. * There is no mitral valve stenosis. * There is trace mitral regurgitation. Tricuspid Valve * The tricuspid valve is not well visualized. * There is no tricuspid stenosis. * There is trace tricuspid regurgitation. Aortic Valve * The aortic valve is normal in structure and function. * The aortic valve is trileaflet. * No hemodynamically significant valvular aortic stenosis. * No aortic regurgitation is present. Pulmonic Valve * The pulmonary valve is inadequately visualized, but the Doppler data is adequate for interpretation. * There is no pulmonic valvular stenosis. * There is no significant pulmonary regurgitation. Great Vessels * The aortic root is normal size. * Normal pulmonary venous flow pattern. Pericardium/Pleural * There is no pericardial effusion. Great Vessels * Normal inferior vena cava size and collapsability with sniff indicates a normal right atrial pressure of 3 mmHg MMode 2D Measurements and Calculations IVSd 1.3 cm LVIDd 4.5 cm LVIDs 1.8 cm LVPWd 1.2 cm IVS/LVPW 1.1 FS 58.9 % EDV(Teich) 92.3 ml ESV(Teich) 10.4 ml EF(Teich) 88.7 % EDV(cubed) 91.0 ml ESV(cubed) 6.3 ml EF(cubed) 93.1 % LV mass(C)d 204.8 grams LV mass(C)dI 124.8 grams/m\S\2 SV(Teich) 81.9 ml SI(Teich) 49.9 ml/m\S\2 SV(cubed) 84.7 ml SI(cubed) 51.6 ml/m\S\2 Ao root diam 2.9 cm Ao root area 6.8 cm\S\2 LVAd ap4 27.6 cm\S\2 LVLd ap4 7.9 cm EDV(MOD-sp4) 79.1 ml EDV(sp4-el) 82.1 ml LVAs ap4 17.5 cm\S\2 LVLs ap4 7.3 cm ESV(MOD-sp4) 36.9 ml ESV(sp4-el) 35.8 ml EF(MOD-sp4) 53.4 % EF(sp4-el) 56.3 % LVAd ap2 24.3 cm\S\2 LVLd ap2 6.7 cm EDV(MOD-sp2) 72.9 ml EDV(sp2-el) 75.5 ml LVAs ap2 16.9 cm\S\2 LVLs ap2 6.6 cm ESV(MOD-sp2) 35.5 ml ESV(sp2-el) 36.8 ml EF(MOD-sp2) 51.4 % EF(sp2-el) 51.2 % LVLd %diff -18.53 % EDV(MOD-bp) 82.6 ml LVLs %diff -10.39 % ESV(MOD-bp) 37.1 ml EF(MOD-bp) 55.1 % SV(MOD-sp4) 42.2 ml SI(MOD-sp4) 25.7 ml/m\S\2 SV(MOD-sp2) 37.5 ml SI(MOD-sp2) 22.8 ml/m\S\2 SV(MOD-bp) 45.5 ml SI(MOD-bp) 27.7 ml/m\S\2 SV(sp4-el) 46.3 ml SI(sp4-el) 28.2 ml/m\S\2 SV(sp2-el) 38.6 ml SI(sp2-el) 23.6 ml/m\S\2 Doppler Measurements and Calculations MV E max obie 137.6 cm/sec MV A max obie 207.9 cm/sec MV E/A 0.66 MV dec time 0.20 sec Ao V2 max 188.7 cm/sec Ao max PG 14.2 mmHg Ao max PG (full) 4.1 mmHg LV V1 max PG 10.1 mmHg LV V1 max 159.1 cm/sec PA V2 max 116.7 cm/sec PA max PG 5.5 mmHg PA acc slope 827.5 cm/sec\S\2 PA acc time 0.09 sec TR max obie 287.8 cm/sec RVSP(TR) 36.1 mmHg RAP systole 3.0 mmHg PA pr(Accel) 39.4 mmHg
[2016-12-07 15:49] VITALS: BP 106/59; PULSE 80; TEMP 36.7; O2SAT 96
--- NOTE | 2016-12-07 16:22 | Progress Note ---
Subjective Date of Service: Dec 07, 2016. Subjective Pt evaluation today including: conversation w/ patient, physical exam, lab review, review of studies, conversation w/ vocational rehab consultant, review of inpatient medication list Pain: lower abdominal pain, denies any chest pain PO Intake: clears Voiding: no voiding problems patient still with some abdominal pain, lower, no BM or bleeding since admission no chest pain, no stress, no dyspnea discussed case with Dr. Trujillo this AM, appreciate input discussed with Dr. Rabago as well, okay with aspirin Problem List Medical Problems: (1) Bilateral lower abdominal pain Status: Acute (2) Chronic deep vein thrombosis of left lower extremity Status: Acute (3) Dehydration Status: Acute (4) Distal radius fracture, right Status: Acute (5) Failure of outpatient treatment Status: Acute (6) Fatigue Status: Acute (7) Generalized weakness Status: Acute (8) Headache Status: Acute (9) Hypomagnesemia Status: Acute (10) Poor appetite Status: Acute (11) Renal insufficiency Status: Acute (12) UTI (urinary tract infection) Status: Acute (13) Weakness Status: Acute Review of Systems Constitutional: + weakness, + fatigue Abdomen: + pain, + GI bleeding (rectal, small amounts after BM) All Other Systems: Reviewed and Negative Medications Current Inpatient Medications Medications (Trade) Dose Ordered Sig/Mahogany Route Start Time Stop Time Status Last Admin Dose Admin Acetaminophen (Tylenol Tab) 650 mg Q4H PRN PO 12/06/16 16:30 01/05/17 16:29 Al Hydrox/Mg Hydrox/Simethicone (Maalox Max Susp) 15 ml Q4H PRN PO 12/06/16 16:30 01/05/17 16:29 Magnesium Hydroxide (Milk Of Magnesia Susp) 30 ml Q12H PRN PO 12/06/16 16:30 01/05/17 16:29 12/07/16 14:49 30 ML Zolpidem Tartrate (Ambien Tab) 5 mg HSZ PRN PO 12/06/16 16:30 01/05/17 16:29 Ondansetron HCl (Zofran Inj) 4 mg Q6H PRN IV 12/06/16 16:30 01/05/17 16:29 Nitroglycerin (Nitrostat Tab) 0.4 mg UD PRN SL 12/06/16 16:30 01/05/17 16:29 Morphine Sulfate (MoRPHine SULFATE INJ) 2 mg Q30M PRN IV 12/06/16 16:30 12/20/16 16:29 Calcium/Vitamin D (Caltrate Plus Tab) 1 tab DAILY PO 12/07/16 09:00 01/06/17 08:59 12/07/16 08:14 1 TAB Gabapentin (Neurontin Cap) 300 mg HS PO 12/06/16 21:00 01/05/17 20:59 12/06/16 20:39 300 MG Levothyroxine Sodium (Synthroid Tab) 88 mcg DAILYBB PO 12/07/16 06:00 01/06/17 06:59 12/07/16 06:04 88 MCG Metoprolol Succinate (Toprol Xl Tab) 25 mg QAM PO 12/07/16 09:00 01/06/17 08:59 12/07/16 09:09 25 MG Polyethylene (Miralax Powder Packet) 17 gm DAILY PO 12/08/16 09:00 01/07/17 08:59 Ciprofloxacin (Cipro Tab) 500 mg BID PO 12/07/16 11:00 12/17/16 10:59 12/07/16 11:08 500 MG Metronidazole (Flagyl Tab) 500 mg TID PO 12/07/16 14:00 12/17/16 13:59 12/07/16 11:08 500 MG Atorvastatin Calcium (Lipitor Tab) 80 mg HS PO 12/07/16 21:00 01/06/17 20:59 Aspirin (Ecotrin Tab) 81 mg QAM PO 12/08/16 09:00 01/07/17 08:59 Objective Vital Signs Date Time Temp Pulse Resp B/P (MAP) Pulse Ox O2 Delivery O2 Flow Rate FiO2 12/07/16 15:49 36.7 80 18 106/59 (75) 96 Room Air 12/07/16 12:00 Room Air 12/07/16 11:11 36.5 81 18 112/62 (79) 96 Room Air 12/07/16 08:00 Room Air 12/07/16 08:00 36.9 96 16 112/74 (87) 96 Room Air 12/07/16 04:20 36.9 91 18 100/70 (80) 94 Room Air 12/07/16 04:15 Room Air 12/07/16 00:00 Room Air 12/06/16 23:40 36.7 94 18 97/63 (74) 95 Room Air 12/06/16 20:00 Room Air 12/06/16 20:00 36.5 97 20 118/74 (89) 95 Room Air 12/06/16 18:40 36.4 97 20 112/72 98 Room Air 12/06/16 18:01 107/52 12/06/16 17:41 100 25 97 12/06/16 17:36 100 23 97 12/06/16 17:31 111/82 12/06/16 17:06 100 27 96 12/06/16 17:01 114/70 12/06/16 16:36 98 17 97 12/06/16 16:31 127/62 12/06/16 16:30 96 31 97 Physical Exam General Appearance: WD/WN, no apparent distress Neck: supple, no adenopathy, no JVD, trachea midline Respiratory/Chest: chest non-tender, lungs clear, normal breath sounds, no respiratory distress, no accessory muscle use Cardiovascular: regular rate, rhythm, no edema, no gallop, no JVD, no murmur Abdomen: normal bowel sounds, soft, no organomegaly, + tenderness (LLQ and RLQ , no rebound, no rigidity) Extremities: normal range of motion, non-tender, normal inspection, no pedal edema, no calf tenderness 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, no motor/sensory deficits, alert, normal mood/affect, oriented x 3 Skin: normal color, warm/dry, no rash Laboratory Results Last 24 Hours Test 12/06/16 23:24 12/07/16 05:11 12/07/16 07:21 12/07/16 07:36 Hemoglobin 12.2 g/dL 10.6 g/dL Sodium Level 145 mmol/L Potassium Level 5.3 mmol/L Chloride Level 115 mmol/L Carbon Dioxide Level 20 mmol/L Anion Gap 10.0 mmol/L Blood Urea Nitrogen 34 mg/dl Creatinine 2.00 mg/dl Est Creatinine Clear Calc Drug Dose 20.6 ml/min Estimated GFR () 28.0 Estimated GFR (Non- 24.2 BUN/Creatinine Ratio 16.9 Random Glucose 72 mg/dl Calcium Level 7.9 mg/dl Phosphorus Level 3.1 mg/dl Magnesium Level 1.7 mg/dl Troponin I 1.650 ng/ml Bedside Glucose 69 mg/dl 80 mg/dl Test 12/07/16 11:27 Bedside Glucose 91 mg/dl Assessment and Plan 71 y/o F Hx CKD 2-3, DVT (on Apixaban), Hypothyroidism. Pt presents with 2 days of intermittent BRBPR which follow straining on toilet. She describes some lower abdominal pain. Denies N/V or fevers. Initial CT abdomen is consistent with mild to moderate colitis. Initial labs were significant for acute on chronic RF and a markedly elevated troponin. She has not had any cardiovascular symptoms - denies CP, N/V, diaphoresis, palpitation or light- headedness. - Lower GI bleed, likely due to colitis: appreciate GI input treat with Cipro and Flagyl, allow clears today, plan for colonoscopy in 6-8 weeks after recovered from NSTEMI okay with aspirin watch for more bleeding, no BM today - NSTEMI: troponin trending down, likely occurred prior to admission with EKG changes as well that are evolving like she had a recent [place] start Toprol, titrate as possible, start aspirin 81mg, no full AC due to rectal bleeding - Cardiomyopathy: apical akinesis like a tsakosubo, however, no stressors could be due to ischemia mild reduction in EF, no signs of systolic heart failure start Toprol, cannot start MAGALY or ARB due to LINDSEY on CKD - LINDSEY on CKD stage III: Cr trending down, continue IV fluids 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
[2016-12-07 18:56] VITALS: BP 97/65; PULSE 78; TEMP 36.7; O2SAT 98
[2016-12-07] MEDS: ATORVASTATIN 40 MG TAB PO SCH (21:02)
[2016-12-07] MEDS: GABAPENTIN 300 MG CAP PO SCH (21:02)
[2016-12-07 23:53] VITALS: BP 93/61; PULSE 76; TEMP 36.5; O2SAT 96
[2016-12-08 04:10] VITALS: BP 106/72; PULSE 80; TEMP 36.9; O2SAT 95
[2016-12-08 05:59] LABS: BASO % 0.2 %; BASO ABS # 0.01 K/uL (0-0.2); COMPLETE YES; EOS % 3.8 %; HEMATOCRIT 32.8 % (37-47); IG% 0.4 %; LYMPH % 22.1 %; LYMPH ABS # 1.16 K/uL (1.2-3.4); MEAN CELL VOLUME 100.6 fL (80-100); MEAN CORPUSCULAR HEMOGLOBIN 32.5 pg (25-34); MEAN CORPUSCULAR HGB CONC 32.3 g/dl (32-36); MEAN PLATELET VOLUME 10.5 fL (7.4-10.4); MONO % 5.9 %; NEUT % 67.6 %; PLATELET COUNT 213 K/uL (130-400); RED BLOOD COUNT 3.26 M/uL (4.2-5.4); WHITE BLOOD COUNT 5.24 K/uL (4.8-10.8)
[2016-12-08] MEDS: LEVOTHYROXINE 88 MCG TAB PO SCH (06:01)
[2016-12-08 06:34] LABS: BUN/CREATININE RATIO 14.5 (10-20); CALCIUM 8.1 mg/dl (8.5-10.1); CREATININE 1.6 mg/dl (0.60-1.20); MAGNESIUM 2.1 mg/dl (1.8-2.4); POTASSIUM 4.7 mmol/L (3.5-5.1)
[2016-12-08 07:10] VITALS: BP 101/66; PULSE 81; TEMP 36.5; O2SAT 96
[2016-12-08] MEDS: ASPIRIN 81 MG ECTAB PO SCH (07:42)
[2016-12-08] MEDS: CIPROFLOXACIN 500 MG TAB PO SCH ×2 (07:42→20:30)
[2016-12-08] MEDS: CALCIUM 600MG + VIT D 400 IU TAB PO SCH (07:43)
[2016-12-08] MEDS: POLYETHYLENE (MIRALAX) 17 GM PACK PO SCH (07:43)
[2016-12-08] MEDS: METRONIDAZOLE 500 MG TAB PO SCH ×3 (07:43→20:30)
[2016-12-08] MEDS: METOPROLOL SUCC 25MG EXT REL TAB PO SCH (07:43)
--- NOTE | 2016-12-08 09:59 | Cardiology Follow-Up ---
Subjective General Date of Service: Dec 08, 2016. Pt evaluation today including: conversation w/ patient, chart review, lab review, review of studies, conversation w/ hospice care sales consultant History of Present Illness The patient is a 71 year old female Allergies Coded Allergies: Nitrofurantoin (Verified Allergy, Intermediate, HIVES,ITCHING, 12/06/16) Azithromycin (Verified Allergy, Unknown, HIVES, 09/17/16) Penicillins (Verified Allergy, Unknown, HIVES,PT SAYS SHE'S NOT ALLERGIC TO IT ANYMORE, 12/06/16) PT SAID SHE'S NOT ALLERGIC TO IT ANYMORE Social History Smoking Status: Current Every Day Smoker Hx Tobacco Use In Past Year?: Yes Hx Alcohol Use - Type And Amou: No Hx Substance Use - Type And Am: No Problem List Medical Problems: (1) Bilateral lower abdominal pain Status: Acute (2) Chronic deep vein thrombosis of left lower extremity Status: Acute (3) Dehydration Status: Acute (4) Distal radius fracture, right Status: Acute (5) Failure of outpatient treatment Status: Acute (6) Fatigue Status: Acute (7) Generalized weakness Status: Acute (8) Headache Status: Acute (9) Hypomagnesemia Status: Acute (10) Poor appetite Status: Acute (11) Renal insufficiency Status: Acute (12) UTI (urinary tract infection) Status: Acute (13) Weakness Status: Acute Review of Systems Respiratory: No cough, No shortness of breath, No dyspnea at rest Cardiac: No chest pain, No edema, No palpitations Additional ROS Details: still with Diarrhea, no BRBPR Physical Exam Vital Signs Last Vital Signs Documentation Date Time Temp Pulse Resp B/P (MAP) Pulse Ox O2 Delivery O2 Flow Rate FiO2 12/08/16 08:00 Room Air 12/08/16 07:10 36.5 81 18 101/66 (78) 96 12/06/16 14:33 95 Physical Exam Constitutional: General Apperance: heathly-appearing Level of Distress: NAD Lungs: Auscultation: no wheezing, no rales/crackles, no rhonchi, decreased breath sounds Cardiovascular: Heart Auscultation: RRR, no murmurs, no rubs, no gallops Abdomen: Bowel Sounds: normal Inspection & Palpation: soft, non-distended, pertinent finding (diffuse tenderness) Extremities: no edema Assessment and Plan Assessment and Plan 1) Lower GIB 2) LINDSEY on CKD 3) ST Elevation vs Takasubo's--with no sx's of CP/SOB 4) Mild Cardiomyopathy with akinesis of all the apical segments (LVEF 50%) 5) EKG with hyperacute ST changes and biphasic T waves D/W primary service ASA/BB (no room to increase with BP)/ Statin repeat EKG to reassess ST changes Will need to make decision as outpt RE: cardiac testing Laboratory Results Last 24 Hours Test 12/07/16 11:27 12/07/16 16:17 12/07/16 19:54 12/08/16 05:34 Bedside Glucose 91 mg/dl 85 mg/dl 104 mg/dl White Blood Count 5.24 K/uL Red Blood Count 3.26 M/uL Hemoglobin 10.6 g/dL Hematocrit 32.8 % Mean Corpuscular Volume 100.6 fL Mean Corpuscular Hemoglobin 32.5 pg Mean Corpuscular Hemoglobin Concent 32.3 g/dl Platelet Count 213 K/uL Mean Platelet Volume 10.5 fL Neutrophils (%) (Auto) 67.6 % Lymphocytes (%) (Auto) 22.1 % Monocytes (%) (Auto) 5.9 % Eosinophils (%) (Auto) 3.8 % Basophils (%) (Auto) 0.2 % Neutrophils # (Auto) 3.54 K/uL Lymphocytes # (Auto) 1.16 K/uL Monocytes # (Auto) 0.31 K/uL Eosinophils # (Auto) 0.20 K/uL Basophils # (Auto) 0.01 K/uL RDW Standard Deviation 48.0 fL RDW Coefficient of Variation 13.1 % Immature Granulocyte % (Auto) 0.4 % Immature Granulocyte # (Auto) 0.02 K/uL Sodium Level 143 mmol/L Potassium Level 4.7 mmol/L Chloride Level 113 mmol/L Carbon Dioxide Level 23 mmol/L Anion Gap 7.0 mmol/L Blood Urea Nitrogen 23 mg/dl Creatinine 1.60 mg/dl Est Creatinine Clear Calc Drug Dose 25.8 ml/min Estimated GFR () 36.7 Estimated GFR (Non- 31.6 BUN/Creatinine Ratio 14.5 Random Glucose 112 mg/dl Calcium Level 8.1 mg/dl Magnesium Level 2.1 mg/dl Test 12/08/16 06:34 Bedside Glucose 108 mg/dl
[2016-12-08 11:14] VITALS: BP 105/57; PULSE 81; TEMP 36.5; O2SAT 97
--- NOTE | 2016-12-08 14:39 | Progress Note ---
Subjective Date of Service: Dec 08, 2016. Subjective Pt evaluation today including: conversation w/ patient, physical exam, lab review, conversation w/ design consultant, review of inpatient medication list Pain: less abdominal pain today, isolated to LLQ PO Intake: tolerating clears, will advance Voiding: no voiding problems patient feeling slightly better, less abdominal pain, no chest pain, no dyspnea discussed with Dr. Gipson, continue aspirin, no room to titrate up on metoprolol no more diarrhea, no bleeding, less pain keep on tele Problem List Medical Problems: (1) Bilateral lower abdominal pain Status: Acute (2) Chronic deep vein thrombosis of left lower extremity Status: Acute (3) Dehydration Status: Acute (4) Distal radius fracture, right Status: Acute (5) Failure of outpatient treatment Status: Acute (6) Fatigue Status: Acute (7) Generalized weakness Status: Acute (8) Headache Status: Acute (9) Hypomagnesemia Status: Acute (10) Poor appetite Status: Acute (11) Renal insufficiency Status: Acute (12) UTI (urinary tract infection) Status: Acute (13) Weakness Status: Acute Review of Systems Constitutional: + weakness, + fatigue Abdomen: + pain (LLQ, less than yesterday) All Other Systems: Reviewed and Negative Medications Current Inpatient Medications Medications (Trade) Dose Ordered Sig/Mahogany Route Start Time Stop Time Status Last Admin Dose Admin Acetaminophen (Tylenol Tab) 650 mg Q4H PRN PO 12/06/16 16:30 01/05/17 16:29 Al Hydrox/Mg Hydrox/Simethicone (Maalox Max Susp) 15 ml Q4H PRN PO 12/06/16 16:30 01/05/17 16:29 Magnesium Hydroxide (Milk Of Magnesia Susp) 30 ml Q12H PRN PO 12/06/16 16:30 01/05/17 16:29 12/07/16 14:49 30 ML Zolpidem Tartrate (Ambien Tab) 5 mg HSZ PRN PO 12/06/16 16:30 01/05/17 16:29 Ondansetron HCl (Zofran Inj) 4 mg Q6H PRN IV 12/06/16 16:30 01/05/17 16:29 Nitroglycerin (Nitrostat Tab) 0.4 mg UD PRN SL 12/06/16 16:30 01/05/17 16:29 Morphine Sulfate (MoRPHine SULFATE INJ) 2 mg Q30M PRN IV 12/06/16 16:30 12/20/16 16:29 Calcium/Vitamin D (Caltrate Plus Tab) 1 tab DAILY PO 12/07/16 09:00 01/06/17 08:59 12/08/16 07:43 1 TAB Gabapentin (Neurontin Cap) 300 mg HS PO 12/06/16 21:00 01/05/17 20:59 12/07/16 21:02 300 MG Levothyroxine Sodium (Synthroid Tab) 88 mcg DAILYBB PO 12/07/16 06:00 01/06/17 06:59 12/08/16 06:01 88 MCG Metoprolol Succinate (Toprol Xl Tab) 25 mg QAM PO 12/07/16 09:00 01/06/17 08:59 12/08/16 07:43 25 MG Polyethylene (Miralax Powder Packet) 17 gm DAILY PO 12/08/16 09:00 01/07/17 08:59 Ciprofloxacin (Cipro Tab) 500 mg BID PO 12/07/16 11:00 12/17/16 10:59 12/08/16 07:42 500 MG Metronidazole (Flagyl Tab) 500 mg TID PO 12/07/16 14:00 12/17/16 13:59 12/08/16 13:02 500 MG Atorvastatin Calcium (Lipitor Tab) 80 mg HS PO 12/07/16 21:00 01/06/17 20:59 12/07/16 21:02 80 MG Aspirin (Ecotrin Tab) 81 mg QAM PO 12/08/16 09:00 01/07/17 08:59 12/08/16 07:42 81 MG Objective Vital Signs Date Time Temp Pulse Resp B/P (MAP) Pulse Ox O2 Delivery O2 Flow Rate FiO2 12/08/16 11:25 Room Air 12/08/16 11:14 36.5 81 18 105/57 (73) 97 Room Air 12/08/16 08:00 Room Air 12/08/16 07:10 36.5 81 18 101/66 (78) 96 Room Air 12/08/16 04:10 36.9 80 18 106/72 (83) 95 Room Air 12/08/16 04:00 Room Air 12/08/16 00:02 Room Air 12/07/16 23:53 36.5 76 18 93/61 (72) 96 Room Air 12/07/16 20:00 Room Air 12/07/16 18:56 36.7 78 18 97/65 (76) 98 Room Air 12/07/16 16:00 Room Air 12/07/16 15:49 36.7 80 18 106/59 (75) 96 Room Air Physical Exam General Appearance: WD/WN, no apparent distress Neck: supple, no adenopathy, no JVD, trachea midline Respiratory/Chest: chest non-tender, lungs clear, normal breath sounds, no respiratory distress, no accessory muscle use Cardiovascular: regular rate, rhythm, no edema, no gallop, no JVD, no murmur Abdomen: normal bowel sounds, soft, no organomegaly, + tenderness (LLQ, no rebound, no rigidity) Extremities: normal range of motion, non-tender, normal inspection, no pedal edema, no calf tenderness 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, no motor/sensory deficits, alert, normal mood/affect, oriented x 3 Skin: normal color, warm/dry, no rash Lymphatic: no adenopathy Laboratory Results Last 24 Hours Test 12/07/16 16:17 12/07/16 19:54 12/08/16 05:34 12/08/16 06:34 Bedside Glucose 85 mg/dl 104 mg/dl 108 mg/dl White Blood Count 5.24 K/uL Red Blood Count 3.26 M/uL Hemoglobin 10.6 g/dL Hematocrit 32.8 % Mean Corpuscular Volume 100.6 fL Mean Corpuscular Hemoglobin 32.5 pg Mean Corpuscular Hemoglobin Concent 32.3 g/dl Platelet Count 213 K/uL Mean Platelet Volume 10.5 fL Neutrophils (%) (Auto) 67.6 % Lymphocytes (%) (Auto) 22.1 % Monocytes (%) (Auto) 5.9 % Eosinophils (%) (Auto) 3.8 % Basophils (%) (Auto) 0.2 % Neutrophils # (Auto) 3.54 K/uL Lymphocytes # (Auto) 1.16 K/uL Monocytes # (Auto) 0.31 K/uL Eosinophils # (Auto) 0.20 K/uL Basophils # (Auto) 0.01 K/uL RDW Standard Deviation 48.0 fL RDW Coefficient of Variation 13.1 % Immature Granulocyte % (Auto) 0.4 % Immature Granulocyte # (Auto) 0.02 K/uL Sodium Level 143 mmol/L Potassium Level 4.7 mmol/L Chloride Level 113 mmol/L Carbon Dioxide Level 23 mmol/L Anion Gap 7.0 mmol/L Blood Urea Nitrogen 23 mg/dl Creatinine 1.60 mg/dl Est Creatinine Clear Calc Drug Dose 25.8 ml/min Estimated GFR () 36.7 Estimated GFR (Non- 31.6 BUN/Creatinine Ratio 14.5 Random Glucose 112 mg/dl Calcium Level 8.1 mg/dl Magnesium Level 2.1 mg/dl Test 12/08/16 10:55 Bedside Glucose 136 mg/dl Assessment and Plan 71 y/o F Hx CKD 2-3, DVT (on Apixaban), Hypothyroidism. Pt presents with 2 days of intermittent BRBPR which follow straining on toilet. She describes some lower abdominal pain. Denies N/V or fevers. Initial CT abdomen is consistent with mild to moderate colitis. Initial labs were significant for acute on chronic RF and a markedly elevated troponin. She has not had any cardiovascular symptoms - denies CP, N/V, diaphoresis, palpitation or light- headedness. - Lower GI bleed, likely due to colitis: appreciate GI input no bleeding today, Hb stable at 10.6 seems to be responding to Cipro and Flagyl, advance to low residue diet, plan for colonoscopy in 6-8 weeks after recovered from NSTEMI GI okay with aspirin - NSTEMI: troponin trending down, likely occurred prior to admission with EKG changes as well that are evolving like she had a recent [place] tolerating Toprol, no room to titrate today as BP and HR low normal, aspirin 81mg, no full AC due to rectal bleeding - Cardiomyopathy: apical akinesis like a Takotsubo, however, no stressors likely due to ischemia mild reduction in EF, no signs of systolic heart failure continue Toprol, cannot start MAGALY or ARB due to LINDSEY on CKD - LINDSEY on CKD stage III: resolved with IV fluids, Cr down to 1.6 today, stop fluids hold nephrotoxins check labs in the AM - H/o DVT: hold AC with GI bleeding, resume when okay with GI keep on tele, repeat labs tomorrow, watch for any signs of heart failure or more rectal bleeding
[2016-12-08 15:01] VITALS: BP 133/71; PULSE 99; TEMP 36.9; O2SAT 97
[2016-12-08 18:37] VITALS: BP 97/56; PULSE 86; TEMP 36.3; O2SAT 99
[2016-12-08] MEDS: ATORVASTATIN 40 MG TAB PO SCH (20:30)
[2016-12-08] MEDS: GABAPENTIN 300 MG CAP PO SCH (20:30)
[2016-12-08 23:56] VITALS: BP 113/70; PULSE 84; TEMP 36.6; O2SAT 94
[2016-12-09] VITALS (7 sets, daily range): BP systolic 95–117; BP diastolic 52–71; PULSE 78–86; TEMP 36.3–37.1; O2SAT 95–99
[2016-12-09] MEDS: LEVOTHYROXINE 88 MCG TAB PO SCH (06:07)
[2016-12-09] MEDS: METRONIDAZOLE 500 MG TAB PO SCH ×3 (07:53→20:41)
[2016-12-09] MEDS: POLYETHYLENE (MIRALAX) 17 GM PACK PO SCH (07:53)
[2016-12-09] MEDS: ASPIRIN 81 MG ECTAB PO SCH (07:53)
[2016-12-09] MEDS: CIPROFLOXACIN 500 MG TAB PO SCH ×2 (07:53→20:41)
[2016-12-09] MEDS: METOPROLOL SUCC 25MG EXT REL TAB PO SCH (07:53)
[2016-12-09] MEDS: CALCIUM 600MG + VIT D 400 IU TAB PO SCH (07:53)
[2016-12-09 10:09] LABS: HEMATOCRIT 35.7 % (37-47)
[2016-12-09 10:44] LABS: BUN/CREATININE RATIO 11.3 (10-20); CALCIUM 8.1 mg/dl (8.5-10.1); CREATININE 1.8 mg/dl (0.60-1.20); POTASSIUM 4.3 mmol/L (3.5-5.1)
--- NOTE | 2016-12-09 12:13 | Progress Note ---
Subjective Date of Service: Dec 09, 2016. Subjective Pt evaluation today including: conversation w/ patient, physical exam, lab review, review of inpatient medication list Pain: no abdominal or chest pain today PO Intake: adequate Voiding: no voiding problems no further abdominal pain or bloody BM today, she is still having diarrhea no chest pain, no dyspnea had questions about heart function, if this was expected to be permanent discussed that only time would tell she had been started on new medications to help the heart function would need repeat echocardiogram and would follow with cardiology as outpatient no other questions Problem List Medical Problems: (1) Bilateral lower abdominal pain Status: Acute (2) Chronic deep vein thrombosis of left lower extremity Status: Acute (3) Dehydration Status: Acute (4) Distal radius fracture, right Status: Acute (5) Failure of outpatient treatment Status: Acute (6) Fatigue Status: Acute (7) Generalized weakness Status: Acute (8) Headache Status: Acute (9) Hypomagnesemia Status: Acute (10) Poor appetite Status: Acute (11) Renal insufficiency Status: Acute (12) UTI (urinary tract infection) Status: Acute (13) Weakness Status: Acute Review of Systems Constitutional: + weakness, + fatigue Abdomen: + diarrhea All Other Systems: Reviewed and Negative Medications Current Inpatient Medications Medications (Trade) Dose Ordered Sig/Mahogany Route Start Time Stop Time Status Last Admin Dose Admin Acetaminophen (Tylenol Tab) 650 mg Q4H PRN PO 12/06/16 16:30 01/05/17 16:29 Al Hydrox/Mg Hydrox/Simethicone (Maalox Max Susp) 15 ml Q4H PRN PO 12/06/16 16:30 01/05/17 16:29 Magnesium Hydroxide (Milk Of Magnesia Susp) 30 ml Q12H PRN PO 12/06/16 16:30 01/05/17 16:29 12/07/16 14:49 30 ML Zolpidem Tartrate (Ambien Tab) 5 mg HSZ PRN PO 12/06/16 16:30 01/05/17 16:29 Ondansetron HCl (Zofran Inj) 4 mg Q6H PRN IV 12/06/16 16:30 01/05/17 16:29 Nitroglycerin (Nitrostat Tab) 0.4 mg UD PRN SL 12/06/16 16:30 01/05/17 16:29 Morphine Sulfate (MoRPHine SULFATE INJ) 2 mg Q30M PRN IV 12/06/16 16:30 12/20/16 16:29 Calcium/Vitamin D (Caltrate Plus Tab) 1 tab DAILY PO 12/07/16 09:00 01/06/17 08:59 12/09/16 07:53 1 TAB Gabapentin (Neurontin Cap) 300 mg HS PO 12/06/16 21:00 01/05/17 20:59 12/08/16 20:30 300 MG Levothyroxine Sodium (Synthroid Tab) 88 mcg DAILYBB PO 12/07/16 06:00 01/06/17 06:59 12/09/16 06:07 88 MCG Metoprolol Succinate (Toprol Xl Tab) 25 mg QAM PO 12/07/16 09:00 01/06/17 08:59 12/09/16 07:53 25 MG Polyethylene (Miralax Powder Packet) 17 gm DAILY PO 12/08/16 09:00 01/07/17 08:59 Ciprofloxacin (Cipro Tab) 500 mg BID PO 12/07/16 11:00 12/17/16 10:59 12/09/16 07:53 500 MG Metronidazole (Flagyl Tab) 500 mg TID PO 12/07/16 14:00 12/17/16 13:59 12/09/16 07:53 500 MG Atorvastatin Calcium (Lipitor Tab) 80 mg HS PO 12/07/16 21:00 01/06/17 20:59 12/08/16 20:30 80 MG Aspirin (Ecotrin Tab) 81 mg QAM PO 12/08/16 09:00 01/07/17 08:59 12/09/16 07:53 81 MG Sodium Chloride ([place] Nasal [place]) 2 sprays Q4 PRN NA 12/09/16 09:30 01/08/17 09:29 Objective Vital Signs Date Time Temp Pulse Resp B/P (MAP) Pulse Ox O2 Delivery O2 Flow Rate FiO2 12/09/16 11:24 36.3 78 17 106/52 (70) 98 Room Air 12/09/16 08:04 Room Air 12/09/16 07:02 36.5 17 109/65 (80) 96 Room Air 12/09/16 04:22 37.1 80 18 98/63 (75) 97 Room Air 12/09/16 04:00 Room Air 12/09/16 00:00 Room Air 12/08/16 23:56 36.6 84 18 113/70 (84) 94 Room Air 12/08/16 20:00 Room Air 12/08/16 18:37 36.3 86 18 97/56 (70) 99 Room Air 12/08/16 16:00 Room Air 12/08/16 15:01 36.9 99 18 133/71 (91) 97 Room Air Physical Exam General Appearance: WD/WN, no apparent distress Eyes: normal inspection, EOMI, sclerae normal Neck: supple, no adenopathy, no JVD, trachea midline Respiratory/Chest: chest non-tender, lungs clear, normal breath sounds, no respiratory distress, no accessory muscle use Cardiovascular: regular rate, rhythm, no edema, no gallop, no JVD, no murmur Abdomen: normal bowel sounds, non tender, soft, no organomegaly Extremities: normal range of motion, non-tender, normal inspection, no pedal edema, no calf tenderness Neurologic/Psychiatric: ep tech II-XII nml as tested, no motor/sensory deficits, alert, normal mood/affect, oriented x 3 Skin: normal color, warm/dry, no rash Laboratory Results Last 24 Hours Test 12/08/16 16:05 12/08/16 20:02 12/09/16 06:37 12/09/16 09:57 Bedside Glucose 91 mg/dl 102 mg/dl 110 mg/dl Hemoglobin 10.9 g/dL Hematocrit 35.7 % Sodium Level 146 mmol/L Potassium Level 4.3 mmol/L Chloride Level 111 mmol/L Carbon Dioxide Level 27 mmol/L Anion Gap 8.0 mmol/L Blood Urea Nitrogen 20 mg/dl Creatinine 1.80 mg/dl Est Creatinine Clear Calc Drug Dose 23.1 ml/min Estimated GFR () 31.8 Estimated GFR (Non- 27.4 BUN/Creatinine Ratio 11.3 Random Glucose 151 mg/dl Calcium Level 8.1 mg/dl Troponin I 0.318 ng/ml Assessment and Plan 71 y/o F Hx CKD 2-3, DVT (on Apixaban), Hypothyroidism. Pt presents with 2 days of intermittent BRBPR which follow straining on toilet. She describes some lower abdominal pain. Denies N/V or fevers. Initial CT abdomen is consistent with mild to moderate colitis. Initial labs were significant for acute on chronic RF and a markedly elevated troponin. She has not had any cardiovascular symptoms - denies CP, N/V, diaphoresis, palpitation or light- headedness. - Lower GI bleed, likely due to colitis: appreciate GI input no bleeding since admission, Hb stable at 10.9 seems to be responding to Cipro and Flagyl, advance to low residue diet, plan for colonoscopy in 6-8 weeks after recovered from NSTEMI GI okay with aspirin, no rebleeding after aspirin started - NSTEMI: troponin trending down, 0.3 today, likely occurred prior to admission with EKG changes as well that are evolving like she had a recent ND tolerating Toprol, again, no room to titrate today as BP and HR low normal, aspirin 81mg, no full AC due to rectal bleeding - Cardiomyopathy: apical akinesis like a Takotsubo, however, no stressors likely due to ischemia mild reduction in EF, no signs of systolic heart failure continue Toprol, will start Lisinopril 5mg daily as Cr at baseline 1.6-1.8 - LINDSEY on CKD stage III: resolved with IV fluids, Cr down to 1.8 today, stopped fluids hold nephrotoxins follow BMP daily and UO will start Lisinopril 5mg for the systolic heart failure - H/o DVT: hold Eliquis with GI bleeding, resume when okay with GI, likely in a few days transfer to medical today, no arrhythmias, no bleeding and vitals stable PT/OT ordered follow up on further recommendations from cardiology and GI tomorrow
--- NOTE | 2016-12-09 12:13 | Cardiology Follow-Up ---
Subjective General Date of Service: Dec 09, 2016. Pt evaluation today including: conversation w/ patient, chart review, lab review, review of studies History of Present Illness The patient is a 71 year old female Allergies Coded Allergies: Nitrofurantoin (Verified Allergy, Intermediate, HIVES,ITCHING, 12/06/16) Azithromycin (Verified Allergy, Unknown, HIVES, 09/17/16) Penicillins (Verified Allergy, Unknown, HIVES,PT SAYS SHE'S NOT ALLERGIC TO IT ANYMORE, 12/06/16) PT SAID SHE'S NOT ALLERGIC TO IT ANYMORE Social History Smoking Status: Current Every Day Smoker Hx Tobacco Use In Past Year?: Yes Hx Alcohol Use - Type And Amou: No Hx Substance Use - Type And Am: No Problem List Medical Problems: (1) Bilateral lower abdominal pain Status: Acute (2) Chronic deep vein thrombosis of left lower extremity Status: Acute (3) Dehydration Status: Acute (4) Distal radius fracture, right Status: Acute (5) Failure of outpatient treatment Status: Acute (6) Fatigue Status: Acute (7) Generalized weakness Status: Acute (8) Headache Status: Acute (9) Hypomagnesemia Status: Acute (10) Poor appetite Status: Acute (11) Renal insufficiency Status: Acute (12) UTI (urinary tract infection) Status: Acute (13) Weakness Status: Acute Review of Systems Respiratory: No shortness of breath, No dyspnea at rest Cardiac: No chest pain, No edema, No palpitations Additional ROS Details: belly pain improved Physical Exam Vital Signs Last Vital Signs Documentation Date Time Temp Pulse Resp B/P (MAP) Pulse Ox O2 Delivery O2 Flow Rate FiO2 12/09/16 11:24 36.3 78 17 106/52 (70) 98 Room Air 12/06/16 14:33 95 Physical Exam Constitutional: General Apperance: heathly-appearing Level of Distress: NAD Lungs: Auscultation: no wheezing, no rales/crackles, no rhonchi, decreased breath sounds Cardiovascular: Heart Auscultation: RRR, no murmurs, no rubs, no gallops Abdomen: Bowel Sounds: normal Inspection & Palpation: soft, non-distended, pertinent finding (mild tenderness) Extremities: no edema Assessment and Plan Assessment and Plan 1) Lower GIB 2) LINDSEY on CKD 3) ST Elevation vs Takasubo's--with no sx's of CP/SOB 4) Mild Cardiomyopathy with akinesis of all the apical segments (LVEF 50%) 5) EKG with hyperacute ST changes and biphasic T waves ASA/BB (no room to increase with BP)/ Statin feeling better; no angina or CHF repeat EKG to reassess ST changes Will need to make decision as outpt RE: cardiac testing Laboratory Results Last 24 Hours Test 12/08/16 16:05 12/08/16 20:02 12/09/16 06:37 12/09/16 09:57 Bedside Glucose 91 mg/dl 102 mg/dl 110 mg/dl Hemoglobin 10.9 g/dL Hematocrit 35.7 % Sodium Level 146 mmol/L Potassium Level 4.3 mmol/L Chloride Level 111 mmol/L Carbon Dioxide Level 27 mmol/L Anion Gap 8.0 mmol/L Blood Urea Nitrogen 20 mg/dl Creatinine 1.80 mg/dl Est Creatinine Clear Calc Drug Dose 23.1 ml/min Estimated GFR () 31.8 Estimated GFR (Non- 27.4 BUN/Creatinine Ratio 11.3 Random Glucose 151 mg/dl Calcium Level 8.1 mg/dl Troponin I 0.318 ng/ml
[2016-12-09] MEDS: SODIUM CHLORIDE 0.65% NA SOLN 45 ML (OCEAN) PRN (14:03)
[2016-12-09] MEDS: ACETAMINOPHEN 325 MG TAB PO PRN (18:13)
[2016-12-09] MEDS: ATORVASTATIN 40 MG TAB PO SCH (20:41)
[2016-12-09] MEDS: GABAPENTIN 300 MG CAP PO SCH (20:41)
[2016-12-10] MEDS: LEVOTHYROXINE 88 MCG TAB PO SCH (05:50)
[2016-12-10 05:58] LABS: BASO % 0.5 %; BASO ABS # 0.03 K/uL (0-0.2); COMPLETE YES; EOS % 4.4 %; HEMATOCRIT 34.2 % (37-47); IG% 1.5 %; LYMPH % 32.7 %; LYMPH ABS # 1.92 K/uL (1.2-3.4); MEAN CELL VOLUME 101.8 fL (80-100); MEAN CORPUSCULAR HEMOGLOBIN 32.1 pg (25-34); MEAN CORPUSCULAR HGB CONC 31.6 g/dl (32-36); MEAN PLATELET VOLUME 10.9 fL (7.4-10.4); MONO % 7.5 %; NEUT % 53.4 %; PLATELET COUNT 245 K/uL (130-400); RED BLOOD COUNT 3.36 M/uL (4.2-5.4); WHITE BLOOD COUNT 5.88 K/uL (4.8-10.8)
[2016-12-10 06:34] LABS: BUN/CREATININE RATIO 12.7 (10-20); MAGNESIUM 1.5 mg/dl (1.8-2.4); POTASSIUM 4.5 mmol/L (3.5-5.1)
[2016-12-10 07:33] VITALS: BP 116/77; PULSE 80; TEMP 36.6; O2SAT 94
[2016-12-10] MEDS ORDERED: MAGNESIUM SULFATE 1GM / D5W 1 GM in PREMIXED IN D5W 100 ML IV ONE (08:00)
[2016-12-10] MEDS ORDERED: LISINOPRIL 5 MG TAB PO SCH (09:00)
[2016-12-10] MEDS: POLYETHYLENE (MIRALAX) 17 GM PACK PO SCH (09:00)
[2016-12-10] MEDS: CIPROFLOXACIN 500 MG TAB PO SCH ×2 (09:21→20:45)
[2016-12-10] MEDS: METRONIDAZOLE 500 MG TAB PO SCH ×3 (09:22→20:46)
[2016-12-10] MEDS: ASPIRIN 81 MG ECTAB PO SCH (09:22)
[2016-12-10] MEDS: CALCIUM 600MG + VIT D 400 IU TAB PO SCH (09:22)
--- NOTE | 2016-12-10 10:31 | CARDIOLOGY PROGRESS NOTE ---
DATE: 12/10/2016 TIME: 9:17 a.m. SUBJECTIVE: She denies chest pain, shortness of breath, syncope, near syncope, palpitations or edema. She has not had any further bleeding. She did have some questions and would like me to call her daughter today. Her daughter, Teressa Perez, will be contacted via telephone. Some of her questions today included is her wall motion abnormalities permanent. We discussed the fact that it is too early to know. We will repeat an echo down the road. OBJECTIVE: VITAL SIGNS: Temperature 36.6 degrees, heart rate 80 beats per minute, respiration rate 16, blood pressure 116/77 mmHg, and oxygen saturation 94% on room air. I's and O's positive 605 mL yesterday. Weight is pending. GENERAL: No acute distress. She is alert. NECK: No JVD. CARDIAC EXAM: No ventricular heave. Regular, normal S1, S2. 1/6 early peaking systolic ejection murmur best heard at the right upper sternal border. No rubs or gallops. LUNGS: Initially bibasilar crackles, which improved with cough. ABDOMEN: Soft, nontender, nondistended, normoactive bowel sounds, no bruits noted. EXTREMITIES: No pitting edema. No cyanosis. PSYCHIATRIC: Affect appears appropriate. MEDICATIONS: Include aspirin 81 mg daily, Lipitor 80 mg at bedtime, ciprofloxacin 500 mg p.o. b.i.d., lisinopril 5 mg daily, Synthroid, metoprolol succinate 25 mg daily, magnesium sulfate 1 gram IV x1, Flagyl 500 mg p.o. t.i.d. LABORATORY DATA: White blood cell count 5.88, hemoglobin 10.8, platelets 245. Sodium 145, potassium 4.5, BUN 25, creatinine 2, magnesium 1.5. Echocardiogram 12/07/2016: Normal LV size with low normal systolic function. EF 50%-55%. Mid lateral and mid anteroseptal wall segments appear hypokinetic. The distal wall segments and apex appear akinetic. Other wall segments are hyperdynamic. Mild LVH. Type 1 diastolic dysfunction. Mild left atrial dilation. RVSP 36 mmHg. ASSESSMENT AND PLAN: 1. Cardiomyopathy: She has low normal LV systolic function and wall motion abnormalities as noted. Etiology uncertain. Could be due to ischemic heart disease and therefore treating as such. We will discontinue MAGALY inhibitor for now as she presented with acute on chronic renal insufficiency and hyperkalemia. A message has been sent to her messaging architect regarding potential for MAGALY inhibitor in the future, given the fact that she presented with hyperkalemia would avoid for now. Metoprolol succinate will be increased to 50 mg daily. Cardiac catheterization is not being planned for now due to her renal insufficiency and the fact that she presented with GI bleeding. We will repeat echocardiogram as an outpatient after she follows up in the Cardiology Clinic. Ischemic evaluation will be determined following repeat echocardiogram. Would likely proceed first with nuclear perfusion study if her wall motion abnormalities do not resolve. 2. Elevated troponins/non-ST elevation myocardial infarction: She did not present with acute coronary syndrome and did not have any anginal symptoms. Stress-induced cardiomyopathy versus ischemic heart disease suspected for above cardiomyopathy wall motion abnormalities and elevated troponins. Continue antiplatelet therapy if safe from a GI standpoint. Titrating beta-claudia as above. Continue high intensity statin therapy. 3. Gastrointestinal bleed: No further bleeding noted. She has been evaluated by gastroenterology. 4. Tobacco abuse: Smoking cessation has been discussed. 5. Dyslipidemia: Continue high intensity statin therapy for concern of ischemic heart disease. 6. Disposition: Her daughter will be contacted via telephone later today. From a cardiac standpoint, further titration of medications can be done as an outpatient. She should follow up in the outpatient cardiology clinic.
[2016-12-10 10:43] VITALS: BP 110/75; PULSE 80; O2SAT 94
[2016-12-10] MEDS: ACETAMINOPHEN 325 MG TAB PO PRN ×2 (11:26→15:22)
--- NOTE | 2016-12-10 13:14 | Discharge Instructions ---
Discharge Instructions Date of Service Dec 10, 2016. Admission Reason for Admission: Gi Bleed, Troponin Level Elevated Discharge Discharge Diagnosis / Problem: Colitis with GI Bleed Discharge Goals Goal(s): Decrease discomfort, Improve function, Increase independence Activity Recommendations Activity Limitations: as noted below Lifting Limitations: gradually increase as tolerated Exercise/Sports Limitations: gradually increase as tolerated Shower/Bathe: no limitations . Instructions / Follow-Up Instructions / Follow-Up Lower GI Bleed: Ischemic Colitis Possible vs Bacterial/Viral - You were resumed on a daily aspirin and your blood thinner. These medications are valuable for your heart and history of blood clots - Be mindful of your stool and call your family doctor or return to the hospital if you notice blood in your stool and get other symptoms such as weakness, racing heart rate, shortness of breath - Due to loose stool your magnesium has been mildly low. We will give you a prescription for supplements for one week that will help until you have less loose stool - Also started iron supplements to help with your blood counts. - Continue Ciprofloxacin 500 mg twice a day and Flagyl 500 mg three times a day until all pills are going. Today is day 5 of antibiotics and we plan to finish a 10 day course - The GI doctors would like to do a colonoscopy in approx. 6 weeks and this can be arranged by them and your family doctor can assist. - For abdominal pain you can use Tylenol and take as prescribed on the bottle. -- DO NOT USE NSAIDS SUCH IBUPROFEN, ADVIL, MOTRIN....THESE MEDICATIONS WITH ASPIRIN AND A BLOOD THINNER CAN INCREASE BLEEDING RISK Non-ST Elevation Myocardial Infarction: - This likely occurred prior to you coming into the hospital and the blood tests we use to look for this are coming down to normal. - The goal with this is to prevent further episodes and you were seen by the construction project engineer while admitted (heart doctor) - We have stopped your Amlodipine and added a new medication that will help reduce the strain and workload of the heart. - Take Metoprolol 50 mg daily this medication helps reduce the work the heart needs to do when pumping blood and also can help with blood pressure control -- The most important side effect to know about this medication is it can cause a slow heart rate (bradycardia). If you get dizzy or lightheaded, talk to your doctor. - You were also discontinued on your previous cholesterol medication and started on Atorvastatin 80 mg daily. - You will be followed by cardiology as an outpatient for possible repeat echocardiogram (ultrasound of the heart) to monitor for improvement and further testing depending on outpatient evaluation. Chronic Kidney Disease Stage III: - Your Lisinopril was stopped due to acute changes in kidney function and mildly high potassium on admission. This medication can cause you to have high potassium. - This change was reported to your kidney doctor so that they are aware. FOLLOW-UP APPOINTMENT: Primary Care December 18 315pm Dr Lakhani Cardiology: - You will be set up with a follow-up appointment with the heart doctors Gastroenterology: - Possible colonoscopy in 6 weeks if cleared by cardiology - Dr. Rabago's office information will be provided in your discharge packet Current Hospital Diet Patient's current hospital diet: Diabetes Type 2 Diet, Low Fiber Diet Discharge Diet Recommended Diet: Low Fiber Diet Pending Studies Studies pending at discharge: no Laboratory Results Hemoglobin A1c Test 10/30/16 13:23 Range/Units Estimated Average Glucose 117 mg/dl Hemoglobin A1c 5.7 H 4.5-5.6 % Lipid Panel Test 10/30/16 13:23 Range/Units Triglycerides Level 72 0-150 mg/dl Cholesterol Level 156 0-200 mg/dl HDL Cholesterol 74 mg/dl Cholesterol/HDL Ratio 2.1 LDL Cholesterol, Calculated 68 mg/dl Medical Emergencies . Who to Call and When: Medical Emergencies: If at any time you feel your situation is an emergency, please call 911 immediately. . Non-Emergent Contact Non-Emergency issues call your: Primary Care Provider Call Non-Emergent contact if: you have a fever, temperature is above 101.5, your pain is concerning you, you have any medication questions . . "Provider Documentation" section prepared by Vicky Giles. Attending Attestation: Pt seen/examined and care plan d/w NATI Giles on day of discharge. I agree with her discharge instructions as outlined. Isidro Huff MD . VTE Core Measure Inpt VTE Proph given/why not?: Other Anticoagulation (Eliquis), SCD's
--- NOTE | 2016-12-10 14:39 | Hospitalist Progress Note ---
Hospitalist Progress Note Date of Service Dec 10, 2016. (Vicky Giles PA-C) Subjective Pt evaluation today including: conversation w/ patient, physical exam, chart review, lab review, review of studies, review of inpatient medication list Patient seen and evaluated. Sitting in bedside chair and verbalizes no new complaints. No further bleeding noted. Reports that she has had a DVT in L leg during and developed another in January 2016 in R leg. U/S from August 2015 revealed chronic DVT. Discussed anticoagulation with Case and outpatient records reviewed and continued anticoagulation has been related to recurrent DVT. Can resume anticoagulation. Will watch overnight for bleeding. Continues to have frequent bowel movements however states they are lessening Constitutional: No fever, No chills Eyes: No worsening of vision Respiratory: No cough, No shortness of breath Cardiovascular: No chest pain Abdomen: + diarrhea, No pain, No nausea, No vomiting, No constipation, No GI bleeding Musculoskeletal: + swelling (R>L at baseline) Female : No dysuria Heme: No abnormal bleeding/bruising Skin: No rash (Vicky Giles PA-C) Medications Current Inpatient Medications Medications (Trade) Dose Ordered Sig/Mahogany Route Start Time Stop Time Status Last Admin Dose Admin Acetaminophen (Tylenol Tab) 650 mg Q4H PRN PO 12/06/16 16:30 01/05/17 16:29 12/10/16 11:26 650 MG Al Hydrox/Mg Hydrox/Simethicone (Maalox Max Susp) 15 ml Q4H PRN PO 12/06/16 16:30 01/05/17 16:29 Magnesium Hydroxide (Milk Of Magnesia Susp) 30 ml Q12H PRN PO 12/06/16 16:30 01/05/17 16:29 12/07/16 14:49 30 ML Zolpidem Tartrate (Ambien Tab) 5 mg HSZ PRN PO 12/06/16 16:30 01/05/17 16:29 Ondansetron HCl (Zofran Inj) 4 mg Q6H PRN IV 12/06/16 16:30 01/05/17 16:29 Nitroglycerin (Nitrostat Tab) 0.4 mg UD PRN SL 12/06/16 16:30 01/05/17 16:29 Morphine Sulfate (MoRPHine SULFATE INJ) 2 mg Q30M PRN IV 12/06/16 16:30 12/20/16 16:29 Calcium/Vitamin D (Caltrate Plus Tab) 1 tab DAILY PO 12/07/16 09:00 01/06/17 08:59 12/10/16 09:22 1 TAB Gabapentin (Neurontin Cap) 300 mg HS PO 12/06/16 21:00 01/05/17 20:59 12/09/16 20:41 300 MG Levothyroxine Sodium (Synthroid Tab) 88 mcg DAILYBB PO 12/07/16 06:00 01/06/17 06:59 12/10/16 05:50 88 MCG Polyethylene (Miralax Powder Packet) 17 gm DAILY PO 12/08/16 09:00 01/07/17 08:59 Ciprofloxacin (Cipro Tab) 500 mg BID PO 12/07/16 11:00 12/17/16 10:59 12/10/16 09:21 500 MG Metronidazole (Flagyl Tab) 500 mg TID PO 12/07/16 14:00 12/17/16 13:59 12/10/16 13:58 500 MG Atorvastatin Calcium (Lipitor Tab) 80 mg HS PO 12/07/16 21:00 01/06/17 20:59 12/09/16 20:41 80 MG Aspirin (Ecotrin Tab) 81 mg QAM PO 12/08/16 09:00 01/07/17 08:59 12/10/16 09:22 81 MG Sodium Chloride ([place] Nasal [place]) 2 sprays Q4 PRN NA 12/09/16 09:30 01/08/17 09:29 12/09/16 14:03 2 SPRAYS Metoprolol Succinate (Toprol Xl Tab) 50 mg QAM PO 12/11/16 09:00 01/06/17 08:59 Apixaban (Eliquis Tab) 5 mg BID PO 12/10/16 21:00 01/09/17 20:59 (Vicky Giles PA-C) Objective Vital Signs Date Time Temp Pulse Resp B/P (MAP) Pulse Ox O2 Delivery O2 Flow Rate FiO2 12/10/16 10:43 80 94 12/10/16 07:33 36.6 80 16 116/77 (90) 94 Room Air 12/10/16 07:25 Room Air 12/09/16 23:35 Room Air 12/09/16 23:00 36.5 83 16 107/66 (80) 95 Room Air 12/09/16 15:50 Room Air 12/09/16 14:54 36.3 80 18 95/55 (68) 99 Room Air (Vicky Giles PA-C) Physical Exam General Appearance: WD/WN, no apparent distress Eyes: sclerae normal ENT: hearing grossly normal Neck: supple, no JVD, trachea midline Respiratory/Chest: lungs clear, normal breath sounds, no respiratory distress, no accessory muscle use Cardiovascular: regular rate, rhythm, no gallop, no murmur Abdomen: normal bowel sounds, non tender, soft Extremities: no calf tenderness, + swelling (R > L) Neurologic/Psychiatric: alert, oriented x 3 Skin: normal color, warm/dry (Vicky Giles PA-C) Laboratory Results Last 24 Hours Test 12/09/16 18:04 12/09/16 20:42 12/10/16 05:40 Bedside Glucose 146 mg/dl 111 mg/dl White Blood Count 5.88 K/uL Red Blood Count 3.36 M/uL Hemoglobin 10.8 g/dL Hematocrit 34.2 % Mean Corpuscular Volume 101.8 fL Mean Corpuscular Hemoglobin 32.1 pg Mean Corpuscular Hemoglobin Concent 31.6 g/dl Platelet Count 245 K/uL Mean Platelet Volume 10.9 fL Neutrophils (%) (Auto) 53.4 % Lymphocytes (%) (Auto) 32.7 % Monocytes (%) (Auto) 7.5 % Eosinophils (%) (Auto) 4.4 % Basophils (%) (Auto) 0.5 % Neutrophils # (Auto) 3.14 K/uL Lymphocytes # (Auto) 1.92 K/uL Monocytes # (Auto) 0.44 K/uL Eosinophils # (Auto) 0.26 K/uL Basophils # (Auto) 0.03 K/uL RDW Standard Deviation 49.6 fL RDW Coefficient of Variation 13.3 % Immature Granulocyte % (Auto) 1.5 % Immature Granulocyte # (Auto) 0.09 K/uL Sodium Level 145 mmol/L Potassium Level 4.5 mmol/L Chloride Level 113 mmol/L Carbon Dioxide Level 24 mmol/L Anion Gap 8.0 mmol/L Blood Urea Nitrogen 25 mg/dl Creatinine 2.00 mg/dl Est Creatinine Clear Calc Drug Dose 20.8 ml/min Estimated GFR () 28.0 Estimated GFR (Non- 24.2 BUN/Creatinine Ratio 12.7 Random Glucose 114 mg/dl Calcium Level 8.0 mg/dl Magnesium Level 1.5 mg/dl (Vicky Giles PA-C) Assessment and Plan 71 y/o F Hx CKD 2-3, DVT (on Apixaban), Hypothyroidism. Pt presents with 2 days of intermittent BRBPR which follow straining on toilet. She describes some lower abdominal pain. Denies N/V or fevers. Initial CT abdomen is consistent with mild to moderate colitis. Initial labs were significant for acute on chronic RF and a markedly elevated troponin. She has not had any cardiovascular symptoms - denies CP, N/V, diaphoresis, palpitation or light- headedness. Lower GI Bleed: Ischemic Colitis vs other forms: STABLE - No further bleeding - discussed case with Dr. Rabago in regards to anticoagulation and can resume - Will resume Eliquis today and monitor overnight - Ciprofloxacin 500 mg BID and Flagyl 500 mg TID - DAY #10/01 NSTEMI: - Troponins trended down - ASA 81 mg daily - Atorvastatin 80 mg daily Cardiomyopathy: Apical Akinesis - Takotsubo? Ischemic - Echo - EF 50-55%; mid-lateral and mid-anteroseptal wall segments hypokinetic; Distal wall segments and apex akinetic; Grade I Diastolic dysfunction - Metoprolol 50 mg daily - Cardiology following - recommendations reviewed - plan for outpatient echocardiogram and ischemic evaluation determined at that time - nuclear perfusion study LINDSEY on CKD Stage III: - Stopped Lisinopril due to LINDSEY and hyperkalemia on admission - director of staff development notified per cardiology note H/O Recurrent DVT: - Eliquis 5 mg BID DVT Prophylaxis: Eliquis Code Status: FULL RESUSCITATION Disposition: - PT/OT evaluations - safe to return home - she lives alone on 6th floor with elevator and family support - Will resume anticoagulation and monitor overnight with plans for D/C tomorrow - Follow with outpatient cardiology clinic Continued [facility] stay due to: other (reinstitution of anticoagulation in setting of recent GI bleed) Discharge planning: home (Vicky Giles PA-C) Attending Attestation & Admission Note: Pt seen/examined, chart reviewed, and care plan d/w NATI Giles. I agree w/ the machado components of her documentation. Pt feeling well & w/o dyspnea, chest pain. Minimal LLQ abd pain but eating fine and food does not worsen her pain. VSS no fever gen - nad, obese neck - no JVD heart - RRR lungs - CTA b/l abd - minimal tenderness LLQ, ND ext - trace edema b/l labs- mag 1.5 hb 10.8 A/P: 1. ischemic colitis (presumed) - clinically resolved. cipro/flagyl. low fiber diet. 2. h/o recurrent DVT - eliquis resumed, watch overnight for bleeding, cbc in am. 3. hypomagnesemia - replace, repeat level am. 4. NSTEMI - possibly 2nd to Takosubo's cardiomyopathy. Cardiology following. hopefully d/c tomorrow Mulugeta HUFF MD (Isidro Huff MD)
[2016-12-10 15:15] VITALS: BP 112/58; PULSE 89; TEMP 36.3; O2SAT 96
[2016-12-10] MEDS: FLUTICASONE PROPIONATE NA SPR 16 GM BTL SCH (16:02)
[2016-12-10] MEDS: SODIUM CHLORIDE 0.65% NA SOLN 45 ML (OCEAN) PRN (19:21)
[2016-12-10 19:24] VITALS: BP 109/56; PULSE 90; TEMP 36.4; O2SAT 95
[2016-12-10] MEDS: GABAPENTIN 300 MG CAP PO SCH (20:46)
[2016-12-10] MEDS: ATORVASTATIN 40 MG TAB PO SCH (20:46)
[2016-12-10] MEDS: APIXABAN 2.5 MG TAB PO SCH (21:04)
[2016-12-10 22:50] VITALS: BP 111/71; PULSE 90; TEMP 36.5; O2SAT 95
[2016-12-11] MEDS: ACETAMINOPHEN 325 MG TAB PO PRN (01:59)
[2016-12-11] MEDS: LEVOTHYROXINE 88 MCG TAB PO SCH (05:45)
[2016-12-11 06:03] LABS: HEMATOCRIT 34.3 % (37-47); MEAN CELL VOLUME 101.5 fL (80-100); MEAN CORPUSCULAR HEMOGLOBIN 31.7 pg (25-34); MEAN CORPUSCULAR HGB CONC 31.2 g/dl (32-36); MEAN PLATELET VOLUME 10.7 fL (7.4-10.4); PLATELET COUNT 268 K/uL (130-400); RED BLOOD COUNT 3.38 M/uL (4.2-5.4); WHITE BLOOD COUNT 7.18 K/uL (4.8-10.8)
[2016-12-11 06:43] LABS: BUN/CREATININE RATIO 12.1 (10-20); CALCIUM 7.8 mg/dl (8.5-10.1); CREATININE 1.9 mg/dl (0.60-1.20); MAGNESIUM 1.7 mg/dl (1.8-2.4); POTASSIUM 4.3 mmol/L (3.5-5.1)
[2016-12-11] MEDS ORDERED: ASPEC81 PO (07:25)
[2016-12-11] MEDS ORDERED: LPT40 PO (07:25)
[2016-12-11] MEDS ORDERED: TPRSR50 PO (07:25)
[2016-12-11] MEDS ORDERED: MTR500 PO (07:25)
[2016-12-11] MEDS ORDERED: CPR500 PO (07:25)
[2016-12-11 07:49] VITALS: BP 112/72; PULSE 94; TEMP 36.6; O2SAT 93
[2016-12-11 07:55] VITALS: O2SAT 93
[2016-12-11] MEDS: POLYETHYLENE (MIRALAX) 17 GM PACK PO SCH (09:00)
[2016-12-11] MEDS ORDERED: METOPROLOL SUCC 50MG EXT REL TAB PO SCH (09:00)
[2016-12-11] MEDS: FLUTICASONE PROPIONATE NA SPR 16 GM BTL SCH (09:17)
[2016-12-11] MEDS: CALCIUM 600MG + VIT D 400 IU TAB PO SCH (09:18)
[2016-12-11] MEDS: METRONIDAZOLE 500 MG TAB PO SCH (09:20)
[2016-12-11] MEDS: APIXABAN 2.5 MG TAB PO SCH (09:21)
[2016-12-11] MEDS: CIPROFLOXACIN 500 MG TAB PO SCH (09:21)
[2016-12-11] MEDS: ASPIRIN 81 MG ECTAB PO SCH (09:45)
[2016-12-11] MEDS ORDERED: MGNO400 PO ×2 (09:59→10:14)
[2016-12-11] MEDS ORDERED: FRRS300 PO (10:14)
[2016-12-11 13:31] VITALS: BP 112/72; PULSE 94; TEMP 36.6; O2SAT 93
--- NOTE | 2016-12-11 15:29 | Discharge Summary ---
Discharge Summary Date of Service Dec 11, 2016. (Vicky Giles PA-C) Discharge Summary Admission Date: Dec 06, 2016 at 16:30 Discharge Date: Dec 10, 2016 Discharge Disposition: Home Principal Diagnosis: GI Bleed from Ischemic Colitis and NSTEMI Problems/Secondary Diagnoses: 1. Chronic Recurrent DVT 2. Hypothyroidism 3. Chronic Kidney Disease Stage III Immunizations: Have You Had Influenza Vaccine: N/A History of Tetanus Vaccine?: Unknown History of Pneumococcal: Yes History of Hepatitis B Vaccine: Yes Hepatitis Immunization Date: Nov 25, 1997 Procedures: 1. CT SCAN OF THE ABDOMEN AND PELVIS WITHOUT CONTRAST Lower chest: There are dependent interstitial opacities, perhaps minimally progressive when compared the preceding study. There are no significant pleural effusions. Liver: The unenhanced liver is normal in size, contour, and attenuation. There is no intrahepatic biliary ductal dilatation. Gallbladder: Cholelithiasis Spleen: Normal in size and attenuation. Pancreas: Unremarkable. Adrenal glands: Unremarkable. Kidneys: There are multiple right renal calculi measuring up to 9 mm in diameter. There is a 5 mm left renal calculus. There are bilateral hypodense renal lesions the largest of which arises from the lower pole the left kidney measuring 31 mm. These statistically represent cysts. Bowel: There are no transition zones to indicate obstruction. There is colonic wall thickening extending from the rectum to the splenic flexure. The findings are indicative of with a nonspecific colitis. There is no evidence of acute appendicitis Peritoneum: There is no intraperitoneal free air or abdominal ascites. Vasculature: The abdominal aorta is normal in course and caliber. Adenopathy: None. Pelvic viscera: The bladder, and pelvic viscera are unremarkable. Skeletal structures: There is a severe L3 compression fracture with retropulsion. This remains stable. IMPRESSION: 1. No evidence of bowel obstruction. No evidence of free air 2. Cholelithiasis 3. Bilateral nephrolithiasis 4. Moderate colonic wall thickening extending from the rectum to the splenic flexure. The findings are indicative of a colitis 2. CHEST ONE VIEW PORTABLE FINDINGS: The cardiac and mediastinal contours remain stable. There is developing interstitial thickening. This could be secondary to either mild pulmonary vascular congestion, or a bilateral interstitial inflammatory process. Clinical and radiographic follow-up is recommended. No significant pleural effusions are visualized.[No free air is visualized. IMPRESSION: Progressive elevation of the interstitium. This is likely secondary to either mild pulmonary vascular congestion or a bilateral interstitial inflammatory process. Clinical and radiographic follow-up is recommended 3. ECHOCARDIOGRAM -- Conclusions -- * 1. Normal left ventricular size with low-normal systolic function. EF 50- 55%. The mid lateral and mid anteroseptal wall segments appear hypokinetic. The distal wall segments and apex appear akinetic. Other wall segments are hyperdynamic. Mild concentric left ventricular hypertrophy. Type 1 diastolic Consultations: 1. Gastroenterology - Case 2. Cardiology - Dr. Trujillo (Vicky Giles, PA-Sanchez) Problems/Secondary Diagnoses: acute blood loss anemia 2nd to ischemic colitis hyperlipidemia hypomagnesemia GERD possible Takutsubo's vs ischemic cardiomyopathy acute kidney injury in setting of CKD stage 3-4 - former resolved hyperkalemia 2nd to acute kidney injury - resolved (Isidro Huff MD) Medication Reconciliation New Medications: Ferrous Sulfate (Ferrous Sulfate) 325 Mg Tab 325 MG PO BID for 14 Days, #28 TAB Magnesium Oxide (Magnesium-Oxide) 400 Mg Tab 400 MG PO DAILY for 7 Days, #7 TABS Aspirin (Aspirin EC Low Dose) 81 Mg Ectab 81 MG PO QAM for 30 Days, #30 TAB Atorvastatin (Atorvastatin Calcium) 40 Mg Tab 80 MG PO HS for 30 Days, #30 TAB Ciprofloxacin (Ciprofloxacin HCl) 500 Mg Tab 500 MG PO BID, #11 TAB Take one dose this evening 12/11 then resume twice a day on 12/12 Metoprolol Succinate (Metoprolol Succinate ER) 50 Mg Tabcr 50 MG PO QAM for 30 Days, #30 TAB Metronidazole (Metronidazole) 500 Mg Tab 500 MG PO TID, #17 TAB Continued Medications: Apixaban (Eliquis) 5 Mg Tab 5 MG PO BID Calcium/Vitamin D (Os-Jonah 500 Plus D) Tab 1 TAB PO DAILY, TAB Fluocinolone Acetonide (Fluocinolone Acetonide) 45 Appln/15 Gm Cr 1 APPLN TOP BID PRN for PRN Fluticasone Propionate (Nasal) (Flonase Allergy Relief) 50 Mcg/Act Spr 1 SPRAY CORRIE QAM Gabapentin (Gabapentin) 300 Mg Cap 300 MG PO HS, #90 Ibandronate Sodium (Boniva) 150 Mg Tab 150 MG PO MONTHLY, TAB Levothyroxine Sodium (Synthroid) 88 Mcg Tab 88 MCG PO DAILY, TAB Omeprazole (Prilosec) 40 Mg Cap 40 MG PO QAM, CAP Polyethylene Glycol 3350 (Miralax) 1 Pow Pow 17 GM PO DAILY PRN for Constipation Discontinued Medications: Amlodipine (Norvasc) 2.5 Mg Tab 2.5 MG PO DAILY, TAB Simvastatin (Zocor) 20 Mg Tab 20 MG PO DAILY, TAB Valacyclovir (Valtrex) 500 Mg Tab 1000 MG PO TID, TAB take 1000mg tid for 7 days Discharge Exam Review of Systems: Constitutional: No fever, No chills Eyes: No worsening of vision ENT: No nasal symptoms, No sore throat, No trouble swallowing Respiratory: No cough, No shortness of breath Cardiovascular: No chest pain, No orthopnea, No palpitations Abdomen: + pain (minimal only with palpation of LLQ and RLQ), + diarrhea ( loose (improving)), No nausea, No vomiting, No GI bleeding Musculoskeletal: + swelling (chronic LLE > RLE), No calf pain Genitourinary - Female: No dysuria Hematologic / Lymphatic: No abnormal bleeding/bruising Integumentary: No rash Physical Exam: General Appearance: WD/WN, no apparent distress Eyes: sclerae normal ENT: hearing grossly normal Neck: supple, no JVD, trachea midline Respiratory/Chest: lungs clear, normal breath sounds, no respiratory distress, no accessory muscle use Cardiovascular: regular rate, rhythm, no gallop, no murmur Abdomen / GI: normal bowel sounds, soft, + tenderness (deep palpation of RLQ and LLQ) Extremities: + swelling (stable LLE>RLE non-pitting edema) Neurologic/Psychiatric: alert, oriented x 3 Skin: normal color, warm/dry (Vicky Giles, PA-C) Hospital Course ADMISSION: 71 y/o F Hx CKD 2-3, DVT (on Apixaban), Hypothyroidism. Pt presents with 2 days of intermittent BRBPR which follow straining on toilet. She describes some lower abdominal pain. Denies N/V or fevers. Initial CT abdomen is consistent with mild to moderate colitis. Initial labs were significant for acute on chronic RF and a markedly elevated troponin. She has not had any cardiovascular symptoms - denies CP, N/V, diaphoresis, palpitation or light- headedness. HOSPITAL COURSE: Ms. Perez was admitted for BRBPR due to suspected ischemic colitis vs other colitis and elevated troponins suggesting NSTEMI. Hemoglobin remained stable in 10s and no blood transfusion was required. Bleeding has ceased. She was discharged on Ciprofloxacin and Flagyl to finish a 10 day course. Discussed with cardiology and GI and plan to continue Eliquis at this time. Upon admission, troponins noted to be 3 and trended down without cardiac symptoms. Echocardiogram obtained with low normal EF and grade I diastolic dysfunction with consideration for Takotsubo vs Ischemic findings. Cardiology plans to follow as outpatient for repeat echocardiogram and possible stress testing and ischemic work-up. She was started on ASA 81 mg daily, Atorvastatin 80 mg daily, and Metoprolol 50 mg daily. Her Amlodipine and Lisinopril was discontinued. She did present with LINDSEY and mild hyperkalemia and Lisinopril was D/Cd. Cardiology left message for [employer]yer in regards to this change. Amlodipine was discontinued to add Metoprolol to prevent hypotension. Currently , on ASA and Eliquis no further bleeding noted. GI (Dr. Rabago) plans to perform colonoscopy in 6 weeks if cleared by cardiology. Patient is hemodynamically stable and tolerating diet and is optimal for D/C home with outpatient follow- up. Total Time Spent: Greater than 30 minutes This includes examination of the patient, discharge planning, medication reconciliation, and communication with other providers. (Vicky Giles, PA-C) Attending Discharge Note & Attestation: Pt seen/examined, chart reviewed, care plan d/w NATI Giles on day of discharge. I agree w/ the machado components of her discharge summary. 71yo female who presented with rectal bleeding and lower abdominal discomfort. Imaging revealed evidence of colitis. Labs showed evidence of NSTEMI, likely type 2 / myocardial demand ischemia. Colitis was felt to be ischemic in origin; cultures from the stool were negative. Seen by GI who plans outpatient colonoscopy. Also evaluated by cardiology - felt to have either Takotsubo's cardiomyopathy vs ischemic cardiomyopathy. Additional outpatient work-up is planned. She was resumed on a diet, this was advanced, and she tolerated such. Eliquis was resumed prior to discharge and she had no additional bleeding on this. Discharge Hb was 10.7. Discharge exam: gen - nad heart - RRR lungs - CTA b/l abd - soft, ND, BS+, scant tenderness LLQ ext - no edema Isidro Huff MD (Isidro Huff MD) Discharge Instructions Please refer to the electronic Patient Visit Report (Discharge Instructions) for additional information. (Vicky Giles, TAMMY) Additional Copies To Ehsan Rabago D.O.; Thang Lakhani M.D.; Suman Trujillo MD
--- NOTE | 2016-12-11 19:28 | CARDIOLOGY PROGRESS NOTE ---
DATE: 12/11/2016 TIME: 18:48 p.m. SUBJECTIVE: Ms. Perez was evaluated this morning at approximately 9:00 a.m. Her daughter, Teressa was present at the bedside for our meeting. She denies chest pain, syncope, near syncope, palpitations or shortness of breath. Her daughter did have questions regarding her cardiac issues in regards to the troponin elevation and echo abnormalities. Vicky Giles of the primary hospitalist service, was also present at the bedside. The patient's care has been discussed with her. OBJECTIVE: VITAL SIGNS: Temperature is 36.6 degrees, heart rate 94 beats per minute, respiration rate 20, blood pressure 112/72 mmHg, oxygen saturation was 93% on room air. I's and O's yesterday were incomplete. Weight today is 77.2 kg. GENERAL: No acute distress. She is alert. HEENT: Anicteric sclerae. NECK: No appreciable JVD. CARDIOVASCULAR: No ventricular heave. Regular, normal S1, S2. 1/6 early-peaking systolic ejection murmur best heard at the right upper sternal border. No rubs or gallops were auscultated. LUNGS: Clear without wheezes, rales, or rhonchi bilaterally. ABDOMEN: Soft, nondistended, normoactive bowel sounds, no bruits noted. She was tender on deeper palpation of her abdomen. EXTREMITIES: No pitting edema. No cyanosis. PSYCHIATRIC: Affect appears appropriate. MEDICATIONS: Included, aspirin 81 mg daily, Lipitor 80 mg daily, Cipro 500 mg p.o. b.i.d., metoprolol succinate 50 mg daily, metronidazole 500 mg p.o. t.i.d. LABORATORY DATA: White blood cell count 7.18, hemoglobin 10.7, platelets 268. Sodium 144, potassium 4.3, BUN 23, creatinine 1.9, magnesium 1.7. Chart reviewed. ASSESSMENT AND PLAN: 1. Cardiomyopathy: Low-normal left ventricular systolic function with wall motion abnormalities noted on echocardiogram. Findings were discussed with her and her daughter once again today. MAGALY inhibitor was discontinued. This was also discussed with her forensic economist, Dr. Davis. Given the fact that she presented with acute on chronic renal insufficiency and hyperkalemia, it is felt both by Dr. Davis and myself that MAGALY inhibitors and ARB should be avoided at this time. Titrate beta claudia as appropriate. This can be further titrated as an outpatient. Cardiac catheterization has not been planned due to renal insufficiency and the fact that she presented with a gastrointestinal bleed. We will repeat echocardiogram as an outpatient and if there is no improvement in her wall motion abnormalities, noninvasive ischemic evaluation will be considered at that time such as, a myocardial perfusion study. 2. Elevated troponin/non-ST elevation myocardial infarction: She did not present with acute coronary syndrome, but rather abdominal pain and gastrointestinal bleed. Cardiomyopathy may be stress-induced versus ischemic heart disease as the etiologies. Plan as above. Recommend antiplatelet therapy if safe from a gastroenterology standpoint. Continue high intensity statin therapy, and beta claudia. Ischemic evaluation as above. 3. Gastrointestinal bleed: As per gastroenterology. 4. Tobacco abuse: We have discussed smoking cessation during this hospitalization. 5. Dyslipidemia: Due to the concern for ischemic heart disease, high intensity statin therapy is recommended 6. Simvastatin has been replaced by atorvastatin. 7. Disposition: She is being discharged today according to hospitalist service. She will be contacted by my office in regards to a cardiology followup and echocardiogram. Call sooner for any questions or concerns. SG
[2016-12-17] MEDS ORDERED: WARF3TAB6 PO (12:43)
[2016-12-17] MEDS ORDERED: FURO-85 PO (12:46)
[2016-12-27] MEDS ORDERED: ACET1TAB84 PO (11:27)
[2017-01-03] MEDS ORDERED: FURO-85 PO (14:28)
[2017-01-25] MEDS ORDERED: SULF800T23 PO (13:52)
[2017-02-07] MEDS ORDERED: CLR10 PO (11:16)
== END 2016-12-11 14:20 | disposition home or self-care (01) | DRG 377 ==
LOC: EDBD 13:30 → C.EDA 13:31 → C.2T 16:30 → ENRESERV 17:10 → C.MSN 12-09 12:07 → ENRESERV 12-09 12:58
PROVIDERS: ADMIT Internal Medicine; ATTEND Internal Medicine
DX: K92.2 Gastrointestinal hemorrhage, unspecified (principal); I21.4 Non-ST elevation (NSTEMI) myocardial infarction; I82.409 Acute embolism and thrombosis of unspecified deep veins of unspecified lower extremity; F17.200 Nicotine dependence, unspecified, uncomplicated; E11.9 Type 2 diabetes mellitus without complications; E78.5 Hyperlipidemia, unspecified; N20.0 Calculus of kidney; K82.8 Other specified diseases of gallbladder; N18.3 Chronic kidney disease, stage 3 (moderate); E03.9 Hypothyroidism, unspecified; E87.5 Hyperkalemia; Z98.51 Tubal ligation status; Z87.440 Personal history of urinary (tract) infections

== ENCOUNTER → 2017-02-06 | Outpatient (CLI) | payer OTHER ==
[~2017-02-06] MED LIST changes: +ACET1TAB84 PO; -AMLO2.5T PO; -APIX1TAB3 PO; +ASPEC81 PO; +CLR10 PO; -DFL100 PO; +FRRS300 PO; +FURO-85 PO; +LPT40 PO; +MGNO400 PO; -OMEP40CA41 PO; -SIMV20TA5 PO; +SULF800T23 PO; +TPRSR50 PO; -VALA500T39 PO; +WARF3TAB6 PO
--- NOTE | 2017-02-06 13:05 | DIAGNOSTIC IMAGING REPORT ---
CHEST 2 VIEWS ROUTINE CLINICAL HISTORY: COUGH dyspnea COMPARISON STUDY: 12/06/2016 FINDINGS: Mild atelectasis left base. No evidence for cardiac enlargement. Linear atelectasis left midlung. IMPRESSION: Mild left mid and basilar atelectatic change. Otherwise negative study. The above report was generated using voice recognition software. It may contain grammatical, syntax or spelling errors. Electronically signed by: Luis Miguel Myrick M.D. 02/06/2017 1:03 PM Dictated Date/Time: 02/06/2017 1:02 PM
[2017-02-06 16:49] LABS: BASO % 0.4 %; BASO ABS # 0.03 K/uL (0-0.2); COMPLETE YES; EOS % 3.8 %; HEMATOCRIT 39.7 % (37-47); IG% 0.2 %; LYMPH % 40.2 %; LYMPH ABS # 3.43 K/uL (1.2-3.4); MEAN CELL VOLUME 100.8 fL (80-100); MEAN CORPUSCULAR HEMOGLOBIN 32.2 pg (25-34); MEAN PLATELET VOLUME 10.9 fL (7.4-10.4); NEUT % 46.4 %; PLATELET COUNT 298 K/uL (130-400); RED BLOOD COUNT 3.94 M/uL (4.2-5.4); WHITE BLOOD COUNT 8.53 K/uL (4.8-10.8)
[2017-02-06 17:02] LABS: ALT/SGPT 26 U/L (12-78); AST/SGOT 21 U/L (15-37); BLOOD UREA NITROGEN 25 mg/dl (7-18); BUN/CREATININE RATIO 14.9 (10-20); CALCIUM 8.8 mg/dl (8.5-10.1); CARBON DIOXIDE 32 mmol/L (21-32); CHLORIDE 105 mmol/L (98-107); GLUCOSE 89 mg/dl (70-99); POTASSIUM 3.8 mmol/L (3.5-5.1); SODIUM 140 mmol/L (136-145)
[2017-02-06 17:13] LABS: ALB/GLOB RATIO 0.8 (0.9-2); ALKALINE PHOSPHATASE 125 U/L (45-117); FERRITIN 59.2 ng/ml (8.0-388.0)
== END | disposition home or self-care (01) ==
LOC: C.RADBC 12:50
PROVIDERS: ATTEND Internal Medicine
DX: Z01.810 Encounter for preprocedural cardiovascular examination (principal); R05 Cough

== ENCOUNTER → 2017-03-13 | Outpatient (CLI) | payer OTHER ==
[~2017-03-13] MED LIST changes: -SULF800T23 PO
[2017-03-13 17:23] LABS: URINE APPEARANCE CLEAR (CLEAR); URINE BILIRUBIN NEG (NEG); URINE COLOR YELLOW; URINE EPITHELIAL CELL AUTO 20-30 /lpf (0-5); URINE NITRITE NEG (NEG); URINE SPECIFIC GRAVITY 1.015 (1.000-1.030); UROBILINOGEN NEG (NEG)
[2017-03-13 17:24] LABS: MANUAL MICROSCOPIC REQUIRED? NO; REVIEW REQ? NO
[2017-03-13 17:32] LABS: BLOOD UREA NITROGEN 31 mg/dl (7-18); BUN/CREATININE RATIO 16.3 (10-20); CALCIUM 9.3 mg/dl (8.5-10.1); CARBON DIOXIDE 28 mmol/L (21-32); CHLORIDE 102 mmol/L (98-107); GLUCOSE 88 mg/dl (70-99); SODIUM 139 mmol/L (136-145)
[2017-03-13 17:33] LABS: PHOSPHORUS 2.6 mg/dl (2.5-4.9)
== END | disposition home or self-care (01) ==
LOC: C.LABBC 12:58
PROVIDERS: ATTEND Internal Medicine Nephrology
DX: N18.3 Chronic kidney disease, stage 3 (moderate) (principal); E55.9 Vitamin D deficiency, unspecified

== ENCOUNTER → 2017-05-24 | Outpatient (CLI) | payer OTHER ==
[~2017-05-24] MED LIST changes: -FRRS300 PO; -IBAN150T PO
--- NOTE | 2017-05-24 13:11 | DIAGNOSTIC IMAGING REPORT ---
CHEST 2 VIEWS ROUTINE CLINICAL HISTORY: J06.9 Acute upper respiratory [id number] dyspnea COMPARISON STUDY: 02/06/2017 FINDINGS: Mild Baseline emphysematous change. Slight interstitial prominence considered chronic. No focal infiltrate. Degenerative changes thoracic spine with a pre-existing compression deformity of at least 2 low thoracic vertebral bodies. IMPRESSION: Chronic change. Mild emphysematous change. No acute infiltrate. The above report was generated using voice recognition software. It may contain grammatical, syntax or spelling errors. Electronically signed by: Luis Miguel Myrick M.D. 05/24/2017 1:10 PM Dictated Date/Time: 05/24/2017 1:09 PM
== END | disposition home or self-care (01) ==
LOC: C.RADBC 12:30
PROVIDERS: ATTEND Physician Assistant
DX: J06.9 Acute upper respiratory infection, unspecified (principal); R91.8 Other nonspecific abnormal finding of lung field

== ENCOUNTER → 2017-05-30 | Outpatient (CLI) | payer OTHER ==
--- NOTE | 2017-05-30 15:55 | DIAGNOSTIC IMAGING REPORT ---
CHEST 2 VIEWS ROUTINE HISTORY: 72 years-old Female R05 [id number] acute cough COMPARISON: Chest radiograph 6 05/24/2017, CT chest 06/03/2015 TECHNIQUE: PA and lateral views of the chest FINDINGS: Cardiac silhouette is mildly enlarged. Mild prominence of the pulmonary vasculature. No pneumothorax, pleural effusion or focal airspace consolidation. The lungs are hyperinflated and hyperlucent suggesting emphysema. Areas of chronic reticulation are again seen suggesting scarring. Bones of the chest appear grossly intact. There are degenerative changes of the shoulders and spine. IMPRESSION: Emphysema and chronic scarring without acute cardiopulmonary process. The above report was generated using voice recognition software. It may contain grammatical, syntax or spelling errors. Electronically signed by: Farshad Kimbrough M.D. 05/30/2017 3:54 PM Dictated Date/Time: 05/30/2017 3:52 PM
[2017-05-30 16:57] LABS: BASO % 0.3 %; BASO ABS # 0.03 K/uL (0-0.2); COMPLETE YES; EOS % 4.6 %; IG% 0.1 %; LYMPH % 38.3 %; LYMPH ABS # 3.45 K/uL (1.2-3.4); MEAN CELL VOLUME 97.2 fL (80-100); MEAN CORPUSCULAR HEMOGLOBIN 30.9 pg (25-34); MEAN CORPUSCULAR HGB CONC 31.8 g/dl (32-36); NEUT % 45.7 %; PLATELET COUNT 337 K/uL (130-400); RED BLOOD COUNT 3.91 M/uL (4.2-5.4); WHITE BLOOD COUNT 9.01 K/uL (4.8-10.8)
[2017-05-30 17:00] LABS: INR 2.7 (0.9-1.1); PROTHROMBIN TIME (PATIENT) 28.3 SECONDS (9.0-12.0)
[2017-05-30 17:04] LABS: ALT/SGPT 11 U/L (12-78); BLOOD UREA NITROGEN 23 mg/dl (7-18); BUN/CREATININE RATIO 13.7 (10-20); CALCIUM 8.9 mg/dl (8.5-10.1); CARBON DIOXIDE 26 mmol/L (21-32); CHLORIDE 104 mmol/L (98-107); CREATININE 1.71 mg/dl (0.60-1.20); GLUCOSE 101 mg/dl (70-99); POTASSIUM 4.1 mmol/L (3.5-5.1); SODIUM 137 mmol/L (136-145)
[2017-05-30 17:12] LABS: MANUAL MICROSCOPIC REQUIRED? NO; REVIEW REQ? NO; URINE APPEARANCE CLEAR (CLEAR); URINE BILIRUBIN NEG (NEG); URINE COLOR YELLOW; URINE EPITHELIAL CELL AUTO 20-30 /lpf (0-5); URINE NITRITE NEG (NEG); UROBILINOGEN NEG (NEG)
[2017-05-30 17:15] LABS: ALB/GLOB RATIO 0.7 (0.9-2); ALKALINE PHOSPHATASE 125 U/L (45-117); AST/SGOT 14 U/L (15-37)
== END | disposition home or self-care (01) ==
LOC: C.RADBC 14:43
PROVIDERS: ATTEND Physician Assistant Medical
DX: R05 Cough (principal); J43.9 Emphysema, unspecified; J02.9 Acute pharyngitis, unspecified; I12.9 Hypertensive chronic kidney disease with stage 1 through stage 4 chronic kidney disease, or unspecified chronic kidney disease; N18.3 Chronic kidney disease, stage 3 (moderate); R73.9 Hyperglycemia, unspecified; R30.0 Dysuria; I82.403 Acute embolism and thrombosis of unspecified deep veins of lower extremity, bilateral; E55.9 Vitamin D deficiency, unspecified

== ENCOUNTER → 2017-06-05 | Outpatient (CLI) | payer OTHER | END | disposition home or self-care (01) | LOC: C.LABBC 12:12 | PROVIDERS: ATTEND Internal Medicine | DX: J02.9 Acute pharyngitis, unspecified (principal); Z79.01 Long term (current) use of anticoagulants; N18.3 Chronic kidney disease, stage 3 (moderate); I42.9 Cardiomyopathy, unspecified; K80.20 Calculus of gallbladder without cholecystitis without obstruction ==

== ENCOUNTER → 2017-06-12 | Outpatient (CLI) | payer OTHER ==
[~2017-06-12] MED LIST changes: -ASPEC81 PO; +ASPI-320 PO; +ASPI81TA28 PO; +ATOR-26 PO; +DENO60SO INJ; +DFL150 PO; +ENOX60IN SQ; +FLUC150T PO; +GABA-113 PO; +GABA-1219 PO; -GABA1CAP4 PO; +METO50TA8 PO; +OMEP40CA41 PO; +OXYC-737 PO; +POLY335019 PO; +POTA4.25 PO; +RANI300T2 PO; +TRAM-10 PO
[2017-06-12 13:06] LABS: INR 3.2 (0.9-1.1)
== END | disposition home or self-care (01) ==
LOC: C.LABSPEC 12:18
PROVIDERS: ATTEND Pathology Blood Banking & Transfusion Medicine
DX: I82.409 Acute embolism and thrombosis of unspecified deep veins of unspecified lower extremity (principal)

== ENCOUNTER → 2017-06-14 | Outpatient (CLI) | payer OTHER ==
[~2017-06-14] MED LIST changes: +ASPEC81 PO; -ASPI-320 PO; -ASPI81TA28 PO; -ATOR-26 PO; -DENO60SO INJ; -DFL150 PO; -ENOX60IN SQ; -FLUC150T PO; -GABA-113 PO; -GABA-1219 PO; +GABA1CAP4 PO; -METO50TA8 PO; -OMEP40CA41 PO; -OXYC-737 PO; -POLY335019 PO; -POTA4.25 PO; -RANI300T2 PO; -TRAM-10 PO
--- NOTE | 2017-06-14 13:36 | DIAGNOSTIC IMAGING REPORT ---
LUMBAR SPINE 2 OR 3 VIEWS CLINICAL HISTORY: S/P LAMINECTOMY COMPARISON STUDY: Lumbar spine 01/03/2015. FINDINGS: Severe compression deformity at L3, unchanged. This demonstrates up to 5 mm of retropulsion. Mild superior endplate compression deformity at L5 is also unchanged. No acute fractures identified within the lumbar spine. There are suggestion of an L3 laminectomy. The sacrum appears intact. IMPRESSION: 1. Status post L3 laminectomy. 2. No change in the severe compression deformity with 5 mm of retropulsion at L3. 3. Old mild superior endplate compression deformity at L5. 4. No acute fractures identified within the lumbar spine Electronically signed by: Kade Osborne M.D. 06/14/2017 1:35 PM Dictated Date/Time: 06/14/2017 1:32 PM
== END | disposition home or self-care (01) ==
LOC: C.RDSM 12:00
PROVIDERS: ATTEND Orthopaedic Surgery
DX: Z98.890 Other specified postprocedural states (principal)

== ENCOUNTER → 2017-06-19 | Outpatient (CLI) | payer OTHER ==
[~2017-06-19] MED LIST changes: -ASPEC81 PO; +ASPI-320 PO; +ASPI81TA28 PO; +ATOR-26 PO; +DENO60SO INJ; +DFL150 PO; +ENOX60IN SQ; +FLUC150T PO; +GABA-113 PO; +GABA-1219 PO; -GABA1CAP4 PO; +METO50TA8 PO; +OMEP40CA41 PO; +OXYC-737 PO; +POLY335019 PO; +POTA4.25 PO; +RANI300T2 PO; +TRAM-10 PO
[2017-06-19 10:19] LABS: INR 2.9 (0.9-1.1)
--- NOTE | 2017-06-26 10:09 | CODING QUERY MEDICAL NECESSITY ---
CQTREATMENT RENDERED WITHOUT A DIAGNOSIS To promote full compliance with coding requirements relating to patient care, physician participation is requested in all cases of scheduling coordinator uncertainty. Please assist us with providing a diagnosis/symptom for the test(s) below: A diagnosis/symptom was not documented on your Order. A valid diagnosis/symptom is required to bill all insurances. Please remember that we are unable to code a diagnosis of rule out, probable, possible, questionable, or suspected. Tests that require a diagnosis: DOS 06/19/17 INR TEST DONE STAT BUT NO DIAGNOSIS GIVEN Provider Signature: Date: Thank you Charmaine Mcdaniels Health Information Management Once completed, please kindly fax back to [phone] For questions please call [phone]
== END | disposition home or self-care (01) ==
LOC: C.LABSPEC 09:43
PROVIDERS: ATTEND Pathology Blood Banking & Transfusion Medicine
DX: Z79.01 Long term (current) use of anticoagulants (principal)

== ENCOUNTER → 2017-06-26 | Outpatient (CLI) | payer OTHER ==
[2017-06-26 13:25] LABS: INR 3.6 (0.9-1.1)
== END | disposition home or self-care (01) ==
LOC: C.LABSPEC 12:29
PROVIDERS: ATTEND Pathology Blood Banking & Transfusion Medicine
DX: I82.409 Acute embolism and thrombosis of unspecified deep veins of unspecified lower extremity (principal)

== ENCOUNTER → 2017-07-03 | Outpatient (CLI) | payer OTHER ==
[~2017-07-03] MED LIST changes: +ASPEC81 PO; -ASPI-320 PO; -DFL150 PO; -ENOX60IN SQ; -FLUC150T PO; -GABA-113 PO; -GABA-1219 PO; +GABA1CAP4 PO; +METO50TA7 PO; -METO50TA8 PO; -OXYC-737 PO; -POLY335019 PO; -TRAM-10 PO
[2017-07-03 13:21] LABS: INR 2.2 (0.9-1.1)
== END | disposition home or self-care (01) ==
LOC: C.LABSPEC 13:05
PROVIDERS: ATTEND Pathology Blood Banking & Transfusion Medicine
DX: I82.409 Acute embolism and thrombosis of unspecified deep veins of unspecified lower extremity (principal)

== ENCOUNTER → 2017-07-10 | Outpatient (CLI) | payer OTHER ==
[~2017-07-10] MED LIST changes: -ASPI81TA28 PO; -ATOR-26 PO; -DENO60SO INJ; -METO50TA7 PO; -OMEP40CA41 PO; -POTA4.25 PO; -RANI300T2 PO
[2017-07-10 12:57] LABS: INR 1.9 (0.9-1.1)
== END | disposition home or self-care (01) ==
LOC: C.LABSPEC 12:29
PROVIDERS: ATTEND Pathology Blood Banking & Transfusion Medicine
DX: I82.409 Acute embolism and thrombosis of unspecified deep veins of unspecified lower extremity (principal)

== ENCOUNTER → 2017-07-17 | Outpatient (CLI) | payer OTHER ==
[~2017-07-17] MED LIST changes: -ASPEC81 PO; +ASPI81TA28 PO; +ATOR-26 PO; +DENO60SO INJ; +ENOX60IN SQ; -FURO-85 PO; -GABA1CAP4 PO; -LPT40 PO; +METO50TA8 PO; -MGNO400 PO; +OMEP40CA41 PO; +POTA4.25 PO; +RANI300T2 PO; -TPRSR50 PO
[2017-07-17 13:50] LABS: INR 1.5 (0.9-1.1)
== END | disposition home or self-care (01) ==
LOC: C.LABSPEC 12:50
PROVIDERS: ATTEND Pathology Blood Banking & Transfusion Medicine
DX: I82.409 Acute embolism and thrombosis of unspecified deep veins of unspecified lower extremity (principal)

== ENCOUNTER → 2017-07-24 | Outpatient (CLI) | payer OTHER ==
[~2017-07-24] MED LIST changes: +METO50TA7 PO; -METO50TA8 PO
[2017-07-24 13:22] LABS: INR 1.8 (0.9-1.1)
== END | disposition home or self-care (01) ==
LOC: C.LABSPEC 12:57
PROVIDERS: ATTEND Pathology Blood Banking & Transfusion Medicine
DX: I82.409 Acute embolism and thrombosis of unspecified deep veins of unspecified lower extremity (principal)

== ENCOUNTER → 2017-07-29 | Day surgery (SDC) | payer OTHER ==
[2017-07-12 10:04] VITALS: Ht 142.2 cm; Wt 67.7 kg
[~2017-07-29] VITALS: Ht 142.2 cm; Wt 67.7 kg
[~2017-07-29] MED LIST changes: +FENTANYL CITRATE INJ 50 MCG/1 ML 2 ML VIAL ONE; +LIDOCAINE HCL 2% 2 ML VIAL (20MG/ML) ONE; +PROPOFOL IV EMULSION 10 MG/ML 20 ML VIAL IV ONE; +SODIUM CHLORIDE 0.9% 500ML 500 ML IV ONE
[2017-07-29 12:24] LABS: INR 1.3 (0.9-1.1)
--- NOTE | 2017-07-29 13:07 | Endo History and Physical ---
History & Physical Date of Service: Jul 29, 2017. Chief Complaint: Acute Pharyngitis, Laryngitis, Hoarseness Referring Physician: Dr. Thang Lakhani History of Present Illness hoarsness; chronic, atypical GERD Past Medical History Diabetes, Osteoporosis, Arthritis, Fractures, Reflux, Cancer, Thyroid Disease, Kidney Disease Past Surgical History Hx Cardiac Surgery: No Hx Internal Defibrillator: No Hx Pacemaker: No Hx Abdominal Surgery: Yes ( ) Hx of Implantable Prosthesis: No Hx Post-Op Nausea and Vomiting: No Hx Cancer Surgery: Yes (TUMOR REMOVAL) Hx Thoracic Surgery: No Hx Orthopedic: Yes (LT FEMUR REPAIR S/P BREAK) Hx Urinary Tract Surgery: No Family History None Social History Smoking Status: Former Smoker Hx Substance Use: No Hx Alcohol Use: No Allergies Coded Allergies: Nitrofurantoin (Verified Allergy, Intermediate, HIVES,ITCHING, 07/29/17) Azithromycin (Verified Allergy, Unknown, HIVES, 07/29/17) Current Medications Reported Home Medications Medications Dose Route/Sig Max Daily Dose Days Date Category Dose Instructions Lovenox (Enoxaparin Sodium) 60 Mg/0.6 Ml Inj 60 Mg SQ QD 07/29/17 Reported Prolia (Denosumab) 60 Mg/Ml Estephanie 1 Dose INJ Q6MO 07/12/17 Reported Lipitor (Atorvastatin Calcium) 80 Mg Tab 80 Mg PO HS 07/12/17 Reported Zantac (Ranitidine HCl) 300 Mg Tab 300 Mg PO HS 07/12/17 Reported Prilosec (Omeprazole) 40 Mg Cap 40 Mg PO QAM 07/12/17 Reported Toprol-Xl (Metoprolol Succinate) 50 Mg Tabcr 50 Mg PO QAM 07/12/17 Reported Potassium Citrate ER (Potassium Citrate (Alkalinizer) 15 Meq Tab 1 Tab PO QAM 07/12/17 Reported Aspirin Ec (Aspirin) 81 Mg Tab 81 Mg PO QAM 07/12/17 Reported Claritin (Loratadine) 10 Mg Tab 10 Mg PO DAILY PRN 02/07/17 Reported Tylenol Arthritis Ext Rel (Acetaminophen) 650 Mg Cplt 650 Mg PO Q8H PRN 12/27/16 Reported Jantoven (Warfarin Sodium) 3 Mg Tab 3 Mg PO 6XWK 12/17/16 Reported NO warfarin on FRIDAYS Fluocinolone Acetonide 45 Appln/15 Gm Cr 1 Appln TOP BID PRN 09/17/16 Reported Flonase Allergy Relief (Fluticasone Propionate (Nasal)) 50 Mcg/Act Spr 1 [place] CORRIE QAM PRN 09/17/16 Reported Miralax (Polyethylene Glycol 3350) 1 Pow Pow 17 Gm PO DAILY PRN 12/08/14 Reported Synthroid (Levothyroxine Sodium) 88 Mcg Tab 88 Mcg PO QAM 07/24/13 Reported Os-Jonah 500 Plus D (Calcium/Vitamin D) Tab 1 Tab PO HS 07/14/13 Reported Vital Signs Weight (Kilograms): 67.73 Height (Feet): 4 Height (Inches): 8 Date Time Temp Pulse Resp B/P (MAP) Pulse Ox O2 Delivery O2 Flow Rate FiO2 07/29/17 12:41 36.3 69 20 111/52 (71) 95 Room Air Physical Exam General Appearance: WD/WN, no apparent distress Respiratory/Chest: Auscultation: breath sounds normal Cardiovascular: Heart Auscultation: RRR Abdomen: Bowel Sounds: normal Inspection & Palpation: soft, non-distended, no tenderness, guarding & rebound Assessment and Plan EGD with possibole bx/dilation
--- NOTE | 2017-07-29 13:43 | Discharge Instructions ---
Endoscopy Patient Instructions Date / Procedure(s) Performed Jul 29, 2017. EGD Allergy Information Coded Allergies: Nitrofurantoin (Verified Allergy, Intermediate, HIVES,ITCHING, 07/29/17) Azithromycin (Verified Allergy, Unknown, HIVES, 07/29/17) Discharge Date / Findings Jul 29, 2017. inlet patch Medication Instructions Stopped Medication(s): Warfarin stopped 07/24/17 Lovenox "bridge" last dose 07/27/17 Restart Stopped Medication(s): Reported Home Medications Medications Dose Route/Sig Max Daily Dose Days Date Category Dose Instructions Lovenox (Enoxaparin Sodium) 60 Mg/0.6 Ml Inj 60 Mg SQ QD 07/29/17 Reported Prolia (Denosumab) 60 Mg/Ml Estephanie 1 Dose INJ Q6MO 07/12/17 Reported Lipitor (Atorvastatin Calcium) 80 Mg Tab 80 Mg PO HS 07/12/17 Reported Zantac (Ranitidine HCl) 300 Mg Tab 300 Mg PO HS 07/12/17 Reported Prilosec (Omeprazole) 40 Mg Cap 40 Mg PO QAM 07/12/17 Reported Toprol-Xl (Metoprolol Succinate) 50 Mg Tabcr 50 Mg PO QAM 07/12/17 Reported Potassium Citrate ER (Potassium Citrate (Alkalinizer) 15 Meq Tab 1 Tab PO QAM 07/12/17 Reported Aspirin Ec (Aspirin) 81 Mg Tab 81 Mg PO QAM 07/12/17 Reported Claritin (Loratadine) 10 Mg Tab 10 Mg PO DAILY PRN 02/07/17 Reported Tylenol Arthritis Ext Rel (Acetaminophen) 650 Mg Cplt 650 Mg PO Q8H PRN 12/27/16 Reported Jantoven (Warfarin Sodium) 3 Mg Tab 3 Mg PO 6XWK 12/17/16 Reported NO warfarin on FRIDAYS Fluocinolone Acetonide 45 Appln/15 Gm Cr 1 Appln TOP BID PRN 09/17/16 Reported Flonase Allergy Relief (Fluticasone Propionate (Nasal)) 50 Mcg/Act Spr 1 [place] CORRIE QAM PRN 09/17/16 Reported Miralax (Polyethylene Glycol 3350) 1 Pow Pow 17 Gm PO DAILY PRN 12/08/14 Reported Synthroid (Levothyroxine Sodium) 88 Mcg Tab 88 Mcg PO QAM 07/24/13 Reported Os-Jonah 500 Plus D (Calcium/Vitamin D) Tab 1 Tab PO HS 07/14/13 Reported Start Warfarin tonight. Continue Lovenox tomorrow per bridging protocol Reported Home Medications Medications Dose Route/Sig Max Daily Dose Days Date Category Dose Instructions Lovenox (Enoxaparin Sodium) 60 Mg/0.6 Ml Inj 60 Mg SQ QD 07/29/17 Reported Prolia (Denosumab) 60 Mg/Ml Estephanie 1 Dose INJ Q6MO 07/12/17 Reported Lipitor (Atorvastatin Calcium) 80 Mg Tab 80 Mg PO HS 07/12/17 Reported Zantac (Ranitidine HCl) 300 Mg Tab 300 Mg PO HS 07/12/17 Reported Prilosec (Omeprazole) 40 Mg Cap 40 Mg PO QAM 07/12/17 Reported Toprol-Xl (Metoprolol Succinate) 50 Mg Tabcr 50 Mg PO QAM 07/12/17 Reported Potassium Citrate ER (Potassium Citrate (Alkalinizer) 15 Meq Tab 1 Tab PO QAM 07/12/17 Reported Aspirin Ec (Aspirin) 81 Mg Tab 81 Mg PO QAM 07/12/17 Reported Claritin (Loratadine) 10 Mg Tab 10 Mg PO DAILY PRN 02/07/17 Reported Tylenol Arthritis Ext Rel (Acetaminophen) 650 Mg Cplt 650 Mg PO Q8H PRN 12/27/16 Reported Jantoven (Warfarin Sodium) 3 Mg Tab 3 Mg PO 6XWK 12/17/16 Reported NO warfarin on FRIDAYS Fluocinolone Acetonide 45 Appln/15 Gm Cr 1 Appln TOP BID PRN 09/17/16 Reported Flonase Allergy Relief (Fluticasone Propionate (Nasal)) 50 Mcg/Act Spr 1 [place] CORRIE QAM PRN 09/17/16 Reported Miralax (Polyethylene Glycol 3350) 1 Pow Pow 17 Gm PO DAILY PRN 12/08/14 Reported Synthroid (Levothyroxine Sodium) 88 Mcg Tab 88 Mcg PO QAM 07/24/13 Reported Os-Jonah 500 Plus D (Calcium/Vitamin D) Tab 1 Tab PO HS 07/14/13 Reported Start Warfarin tonight. Continue Lovenox tomorrow per bridging yahaira Provider Instructions Activity Restrictions - No exercising or heavy lifting for 24 hours. - Do not drink alcohol the day of the procedure. - Do not drive a car or operate machinery until the day after the procedure. - Do not make any important decisions or sign important papers in 24 hours after the procedure. Following Day: - Return to full activity which may include returning to work/school. Diet Start your diet with liquids and light foods (jello, soup, juice, toast). Then eat your usual diet if not nauseated. Treatment For Common After Affects For mild abdominal pain, bloating, or excessive gas: - Rest - Eat lightly - Lie on right side Follow-Up Information Follow-up with Dr. Thang Lakhani as scheduled Anesthesia Information What You Should Know You have had a procedure that required some medicine to reduce anxiety and discomfort. This treatment is called moderate sedation. After receiving the treatment, you may be sleepy, but you will be able to breathe on your own. The effects of the treatment may last for several hours. Follow these instructions along with Activity/Diet recommendations noted above: * Do NOT do anything where dizziness or clumsiness would be dangerous. * Rest quietly at home today, then you can be up and about tomorrow. * Have a responsible person stay with you the rest of today. * You may have had an I.V. today. If so, you may take the dressing off later today. Recommendations Call your doctor if: * Trouble breathing * Continuous vomiting for more than 24 hours * Temperature above 101 degrees * Severe abdominal pain or bloating * Pain not relieved by pain medicine ordered * There is increased drainage or redness from any incision * A large amount of rectal bleeding greater than 2-3 tablespoons. (If you had a polyp/s removed or have hemorrhoids, a small amount of blood - from the rectum is to be expected.) * You have any unanswered questions or concerns. IN THE EVENT OF A SERIOUS EMERGENCY, GO TO THE NEAREST EMERGENCY ROOM Your discharge instructions were prepared by provider Hayes Dodge. Patient Instructions Signature Page Elyse Perez Patient (or Guardian) Signature/Date: I have read and understand the instructions given to me by my caregivers. Caregiver/RN/Doctor Signature/Date: The above-named patient and/or guardian has received patient instructions on this date. + Original Patient Signature Page (only) stays with chart. Please make copy for patient.
--- NOTE | 2017-07-29 13:58 | Anesthesiology Progress Note ---
Anesthesia Post Op Note Date & Time Jul 29, 2017 at 13:58 Vital Signs Pain Intensity: 0 Vital Signs Past 12 Hours Date Time Temp Pulse Resp B/P (MAP) Pulse Ox O2 Delivery O2 Flow Rate FiO2 07/29/17 13:55 68 20 123/72 (89) 97 Room Air 07/29/17 13:40 66 20 100/54 (69) 95 Room Air 07/29/17 12:41 36.3 69 20 111/52 (71) 95 Room Air Notes Mental Status: alert / awake / arousable, participated in evaluation Pt Amnestic to Procedure: Yes Nausea / Vomiting: adequately controlled Pain: adequately controlled Airway Patency, RR, SpO2: stable & adequate BP & HR: stable & adequate Hydration State: stable & adequate Anesthetic Complications: no major complications apparent
--- NOTE | 2017-07-29 14:00 | GI REPORT ---
Procedure Date: 07/29/2017 1:20 PM Procedure: Upper GI endoscopy Indications: Chronic cough, Chronic pharyngitis, Laryngitis, Sore throat Medicines: Propofol per Anesthesia Complications: No immediate complications. Estimated blood loss: Minimal. Estimated Blood Loss: Estimated blood loss was minimal. Procedure: Pre-Anesthesia Assessment: - Prior to the procedure, a History and Physical was performed, and patient medications and allergies were reviewed. The patient's tolerance of previous anesthesia was also reviewed. The risks and benefits of the procedure and the sedation options and risks were discussed with the patient. All questions were answered, and informed consent was obtained. Prior Anticoagulants: The patient has taken no previous anticoagulant or antiplatelet agents. ASA Grade Assessment: II - A patient with mild systemic disease. After reviewing the risks and benefits, the patient was deemed in satisfactory condition to undergo the procedure. After obtaining informed consent, the endoscope was passed under direct vision. Throughout the procedure, the patient's blood pressure, pulse, and oxygen saturations were monitored continuously. The Scope was introduced through the mouth, and advanced to the second part of duodenum. The upper GI endoscopy was accomplished without difficulty. The patient tolerated the procedure well. Findings: [place] of salmon-colored mucosa were present at 15 cm. No other visible abnormalities were present. Likely inlet patch, slightly raised. Non ulcerated Biopsies were taken with a cold forceps for histology. Estimated blood loss was minimal. Verification of patient identification for the specimen was done by the physician and water supply technician using the patient's name and medical record number. The exam of the esophagus was otherwise normal. The Z-line was regular and was found 36 cm from the incisors. The entire examined stomach was normal. The examined duodenum was normal. Retained gastric contents are not identified on this exam. The cardia and gastric fundus were normal on retroflexion. Impression: - Bailey-colored mucosa. Biopsied. - Z-line regular, 36 cm from the incisors. - Normal stomach. - Normal examined duodenum. Recommendation: - Discharge patient to home (ambulatory). - Resume previous diet. - Continue present medications. - Await pathology results. - Return to referring physician as previously scheduled. - Source of laryngitis, hoarse throat pain and neck pain unclear from this exam. Consider ENT evaluation and possible CT neck if not recently performed. MD Hayes Herrera MD 07/29/2017 2:00:38 PM This report has been signed electronically. Note Initiated On: 07/29/2017 1:20 PM I attest to the content of the Intraoperative Record and orders documented therein, exceptions below
[2017-07-29 14:11] VITALS: BP 113/76; PULSE 66; O2SAT 96
== END | disposition home or self-care (01) ==
LOC: C.GI 11:34
PROVIDERS: ATTEND Internal Medicine Gastroenterology
DX: J02.9 Acute pharyngitis, unspecified (principal); J04.0 Acute laryngitis; R05 Cough; R49.0 Dysphonia; E11.9 Type 2 diabetes mellitus without complications; M81.0 Age-related osteoporosis without current pathological fracture; M19.90 Unspecified osteoarthritis, unspecified site; K21.9 Gastro-esophageal reflux disease without esophagitis; E07.9 Disorder of thyroid, unspecified; N28.9 Disorder of kidney and ureter, unspecified; Z87.891 Personal history of nicotine dependence; Z88.8 Allergy status to other drugs, medicaments and biological substances; Z88.1 Allergy status to other antibiotic agents; Z79.899 Other long term (current) drug therapy; Z79.82 Long term (current) use of aspirin

== ENCOUNTER → 2017-08-08 | Outpatient (CLI) | payer OTHER ==
[~2017-08-08] MED LIST changes: -FENTANYL CITRATE INJ 50 MCG/1 ML 2 ML VIAL ONE; -LIDOCAINE HCL 2% 2 ML VIAL (20MG/ML) ONE; -METO50TA7 PO; +METO50TA8 PO; -PROPOFOL IV EMULSION 10 MG/ML 20 ML VIAL IV ONE; -SODIUM CHLORIDE 0.9% 500ML 500 ML IV ONE
[2017-08-08 14:59] LABS: HEMATOCRIT 39.3 % (37-47); HEMOGLOBIN 12.3 g/dL (12.0-16.0); MEAN CELL VOLUME 98.5 fL (80-100); MEAN CORPUSCULAR HEMOGLOBIN 30.8 pg (25-34); MEAN CORPUSCULAR HGB CONC 31.3 g/dl (32-36); MEAN PLATELET VOLUME 11.2 fL (7.4-10.4); PLATELET COUNT 280 K/uL (130-400); RED CELL DISTRIBUTION WIDTH CV 15.8 % (11.5-14.5); RED CELL DISTRIBUTION WIDTH SD 57.1 fL (36.4-46.3); WHITE BLOOD COUNT 7.12 K/uL (4.8-10.8)
[2017-08-08 15:16] LABS: ALBUMIN 3.4 gm/dl (3.4-5.0); BLOOD UREA NITROGEN 21 mg/dl (7-18); CALCIUM 9.5 mg/dl (8.5-10.1); CARBON DIOXIDE 27 mmol/L (21-32); CREATININE 1.81 mg/dl (0.60-1.20); GLUCOSE 93 mg/dl (70-99); PHOSPHORUS 3.6 mg/dl (2.5-4.9); POTASSIUM 4.5 mmol/L (3.5-5.1); SODIUM 139 mmol/L (136-145)
== END | disposition home or self-care (01) ==
LOC: C.LAB1850 12:00
PROVIDERS: ATTEND Internal Medicine Nephrology
DX: N18.4 Chronic kidney disease, stage 4 (severe) (principal)

== ENCOUNTER → 2017-09-13 | Outpatient (CLI) | payer OTHER ==
[~2017-09-13] MED LIST changes: -ENOX60IN SQ; +FLUC150T PO
--- NOTE | 2017-09-13 14:22 | DIAGNOSTIC IMAGING REPORT ---
LUMBAR SPINE 2 OR 3 VIEWS CLINICAL HISTORY: S/P LAMINECTOMY postoperative COMPARISON STUDY: 06/14/2017 FINDINGS: Operative changes consistent with prior L3 laminectomy. Complete compression deformity L3 with a slight increase in retropulsion of the posterior margin of the vertebral body. This distance has increased to 8 mm from 5 mm. Concave deformity superior endplate of L5 unchanged. Considerable degenerative disc change throughout the entire lumbar and lumbothoracic region also unchanged. IMPRESSION: 1. Complete compression deformity L3 unchanged to minimally progressive. 2. Retropulsion of the posterior margin of the L3 vertebral body now measuring 8 mm, increased from the prior measurement of 5 mm. 3. All remaining components of the study are unchanged from the prior exam. The above report was generated using voice recognition software. It may contain grammatical, syntax or spelling errors. Electronically signed by: Luis Miguel Myrick M.D. 09/13/2017 2:21 PM Dictated Date/Time: 09/13/2017 2:17 PM
== END | disposition home or self-care (01) ==
LOC: C.RDSM 18:38
PROVIDERS: ATTEND Orthopaedic Surgery
DX: Z98.890 Other specified postprocedural states (principal)

== ENCOUNTER 2018-01-20 12:00 | Emergency (ER) | payer OTHER ==
[~2018-01-20] VITALS: Ht 142.2 cm; Wt 69.0 kg
[~2018-01-20 12:00] MED LIST changes: -FLUC150T PO; +GABA-113 PO; +OXYC-737 PO; -[UNRECOGNIZED DRUG - CODE] TOP
[2018-01-20 12:08] VITALS: TEMP 36.5
[2018-01-20] MEDS ORDERED: SODIUM CHLORIDE 0.9% 500ML 500 ML IV STA (12:19)
--- NOTE | 2018-01-20 12:19 | EMERGENCY ROOM VISIT NOTE ---
History Report prepared by Zander: Margarita Meza Under the Supervision of: Dr. Vinay Tim M.D. First contact with patient: 12:11 Chief Complaint: PAIN (GENERALIZED) Stated Complaint: EXHAUSTED, HURT ALL OVER History of Present Illness The patient is a 72 year old white female with a past medical history of DVT, lymphoma, GI bleed, osteopenia, kidney disease, and arthritis who presents to the ED with a cc of constant fatigue beginning 8 days ago. She notes she has been feeling warm but has not taken her temperature. The patient denies any cough, chills, bloody stools, or dark or tarry stools. She notes some diarrhea that has been improving. The patient states her "whole body hurts." She notes she has been drinking a lot of water, and has been urinating more than usual, but denies any pain or burning with urination. The patient reports she has experienced similar symptoms in the past, but has never felt so fatigued for so long. She notes Tylenol has not relieved her symptoms. The patient states she ate a lot of carbs at a green party the day before her symptoms began, but does not think carbs would make her feel like this, and that she does not believe anyone else from the green party is sick. She denies recent prolonged outdoor exposure. The patient reports she takes Warfarin for a recent blood clot in her R leg. She notes she is currently trying to quit smoking. Source of History: patient Onset: 8 days ago Position: other (whole body) Quality: other (fatigue) Timing: constant Associated Symptoms: + diarrhea (improving), No chills, No cough, No melena , No hematochezia, No urinary symptoms Note: Associated symptom: whole body pain Review of Systems See HPI for pertinent positives and negatives. A total of ten systems were reviewed and were otherwise negative. 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 (11) Thyroid disease (12) Troponin level elevated (13) UTI (urinary tract infection) Surgical Problems: (1) History of back surgery Family History FHx: diabetes FHx: heart disease Social History Smoking Status: Current Every Day Smoker Alcohol Use: none Drug Use: none Marital Status: Housing Status: lives with family Occupation Status: retired Current/Historical Medications Scheduled Aspirin (Aspirin Ec), 81 MG PO QAM Atorvastatin (Lipitor), 80 MG PO HS Calcium/Vitamin D (Os-Jonah 500 Plus D), 1 TAB PO HS Denosumab (Prolia), 1 DOSE INJ Q6MO Gabapentin (Neurontin), 300 MG PO HS Levothyroxine Sodium (Synthroid), 88 MCG PO QAM Metoprolol Succ (Toprol Xl) (Toprol-Xl), 50 MG PO QAM Omeprazole (Prilosec), 40 MG PO QAM Potassium Citrate (Alkalinizer (Potassium Citrate ER), 15 MEQ PO QAM Ranitidine Hcl (Zantac), 300 MG PO HS Warfarin Sod (Jantoven), 3 MG PO HS Scheduled PRN Acetaminophen (Tylenol Arthritis Ext Rel), 650 MG PO Q8H PRN for Pain Fluticasone Propionate (Nasal) (Flonase Allergy Relief), 1 SPRAY CORRIE QAM PRN for Seasonal Allergies Loratadine (Claritin), 10 MG PO DAILY PRN for ALLERGIES Oxycodone Immediate Rel Tab (Roxicodone Ir), 1-2 TAB PO Q4H PRN for Severe Pain Polyethylene Glycol 3350 (Miralax), 17 GM PO QAM PRN for Constipation Allergies Coded Allergies: Nitrofurantoin (Verified Allergy, Intermediate, HIVES,ITCHING, 01/20/18) Azithromycin (Verified Allergy, Unknown, HIVES, 01/20/18) Physical Exam Vital Signs Date Time Temp Pulse Resp B/P (MAP) Pulse Ox O2 Delivery O2 Flow Rate FiO2 01/20/18 16:48 92 20 112/79 99 01/20/18 15:04 76 01/20/18 14:30 100 Room Air 01/20/18 14:30 76 20 135/83 100 Room Air 01/20/18 12:08 36.5 80 20 125/70 98 Room Air Physical Exam GENERAL: Awake, alert, well-appearing, NAD HENT: Normocephalic, atraumatic. Hearing aids in place. EYES: Normal conjunctiva. Sclera non-icteric. PERRL. No anisocoria. NECK: Supple. No nuchal rigidity. FROM. RESPIRATORY: CTAB, no rhonchi, wheezing, crackles CARDIAC: RRR, no MRG ABDOMEN: Soft, NTND, BS+ MSK: No chest wall TTP, some RLE edema. NEURO: GCS 15, CN 2-12 intact, moves all 4s on command SKIN: No rash or jaundice noted. Medical Decision & Procedures ER Provider Diagnostic Interpretation: Radiology results as stated below per my review and radiologist interpretation: CHEST ONE VIEW PORTABLE HISTORY: 72 years-old Female EVALUATE WEAKNESS acute weakness COMPARISON: Chest radiograph 12/16/2017 TECHNIQUE: Portable AP view of the chest FINDINGS: Cardiac silhouette is mildly enlarged. Pulmonary vascular congestion without overt pulmonary edema. Lungs are mildly hypoinflated. Subsegmental left basilar opacities. No pneumothorax, pleural effusion or overt pulmonary edema. Convex right curvature about the thoracic spine. Multilevel degenerative changes of the spine with degenerative changes of the shoulders noted as well. IMPRESSION: 1. Cardiomegaly with vascular congestion and hypoinflation. 2. Subsegmental left basilar opacities suggest atelectasis. The above report was generated using voice recognition software. It may contain grammatical, syntax or spelling errors. Electronically signed by: Farshad Kimbrough M.D. 01/20/2018 12:30 PM Dictated Date/Time: 01/20/2018 12:29 PM Laboratory Results 01/20/18 14:24 Red Blood Count 4.13, Mean Corpuscular Volume 101.0, Mean Corpuscular Hemoglobin 32.0, Mean Corpuscular Hemoglobin Concent 31.7, Mean Platelet Volume 10.4, Neutrophils (%) (Auto) 44.7, Lymphocytes (%) (Auto) 44.8, Monocytes (%) ( Auto) 7.6, Eosinophils (%) (Auto) 2.3, Basophils (%) (Auto) 0.3, Neutrophils # ( Auto) 3.07, Lymphocytes # (Auto) 3.07, Monocytes # (Auto) 0.52, Eosinophils # ( Auto) 0.16, Basophils # (Auto) 0.02 01/20/18 14:24 Test 01/20/18 12:45 01/20/18 13:23 01/20/18 14:24 Bedside Glucose 88 mg/dl (70-90) Urine Color YELLOW Urine Appearance CLEAR (CLEAR) Urine pH 5.5 (4.5-7.5) Urine Specific [place] 1.011 (1.000-1.030) Urine Protein NEG (NEG) Urine Glucose (UA) NEG (NEG) Urine Ketones NEG (NEG) Urine Occult Blood NEG (NEG) Urine Nitrite NEG (NEG) Urine Bilirubin NEG (NEG) Urine Urobilinogen NEG (NEG) Urine Leukocyte Esterase NEG (NEG) White Blood Count 6.86 K/uL (4.8-10.8) Red Blood Count 4.13 M/uL (4.2-5.4) Hemoglobin 13.2 g/dL (12.0-16.0) Hematocrit 41.7 % (37-47) Mean Corpuscular Volume 101.0 fL (80-100) Mean Corpuscular Hemoglobin 32.0 pg (25-34) Mean Corpuscular Hemoglobin Concent 31.7 g/dl (32-36) Platelet Count 253 K/uL (130-400) Mean Platelet Volume 10.4 fL (7.4-10.4) Neutrophils (%) (Auto) 44.7 % Lymphocytes (%) (Auto) 44.8 % Monocytes (%) (Auto) 7.6 % Eosinophils (%) (Auto) 2.3 % Basophils (%) (Auto) 0.3 % Neutrophils # (Auto) 3.07 K/uL (1.4-6.5) Lymphocytes # (Auto) 3.07 K/uL (1.2-3.4) Monocytes # (Auto) 0.52 K/uL (0.11-0.59) Eosinophils # (Auto) 0.16 K/uL (0-0.5) Basophils # (Auto) 0.02 K/uL (0-0.2) RDW Standard Deviation 52.3 fL (36.4-46.3) RDW Coefficient of Variation 14.2 % (11.5-14.5) Immature Granulocyte % (Auto) 0.3 % Immature Granulocyte # (Auto) 0.02 K/uL (0.00-0.02) Anion Gap 10.0 mmol/L (3-11) Est Creatinine Clear Calc Drug Dose 20.2 ml/min Estimated GFR () 29.6 Estimated GFR (Non- 25.5 BUN/Creatinine Ratio 16.7 (10-20) Calcium Level 8.7 mg/dl (8.5-10.1) Phosphorus Level 2.5 mg/dl (2.5-4.9) Magnesium Level 2.1 mg/dl (1.8-2.4) Total Bilirubin 0.3 mg/dl (0.2-1) Direct Bilirubin < 0.1 mg/dl (0-0.2) Aspartate Amino Transf (AST/SGOT) 23 U/L (15-37) Alanine Aminotransferase (ALT/SGPT) 21 U/L (12-78) Alkaline Phosphatase 120 U/L (45-117) Troponin I < 0.015 ng/ml (0-0.045) Pro-B-Type Natriuretic Peptide 792 pg/ml (0-900) Total Protein 8.1 gm/dl (6.4-8.2) Albumin 3.8 gm/dl (3.4-5.0) Thyroid Stimulating Hormone (TSH) 0.953 uIu/ml (0.300-4.500) Laboratory results reviewed by me Medications Administered Medications (Trade) Dose Ordered Sig/[place] Route Start Time Stop Time Status Last Admin Dose Admin Sodium Chloride 500 ml @ 500 mls/hr Q1H STAT IV 01/20/18 12:19 01/20/18 13:18 DC 01/20/18 14:25 500 MLS/HR Fentanyl Citrate (Fentanyl Inj) 25 mcg NOW ONCE IV 01/20/18 12:30 01/20/18 12:31 DC 01/20/18 14:25 25 MCG ECG Per My Interpretation Rate (beats per minute): 80 Rhythm: normal sinus Findings: Q waves (Inferior), other (normal intervals. normal axis. no ST segment changes. no T-wave inversion) Change: no significant change (November 2017) ED Course 1214: The patient was evaluated in room C11B. A complete history and physical exam was performed. 1408: I reevaluated the patient. Discussed results and discharge instructions: she verbalized understanding and agreement. The patient is ready for discharge. Medical Decision Nursing notes reviewed. Ancillary studies and prior records reviewed. The patient is a 72 year old white female with a past medical history of DVT, lymphoma, GI bleed, osteopenia, kidney disease, and arthritis who presents to the ED with a cc of constant fatigue beginning 8 days ago. Etiologies such as metabolic, infection, hypo/hyperglycemia, electrolyte abnormalities, cardiac sources, intracerebral event, toxicologic, neurologic, as well as others were entertained. Patient was seen and evaluated the bedside. Patient was complaining some generalized pain and overall overall generalized weakness and fatigue. Patient states is been ongoing and fairly constant for about 8 days. Patient does not recall any significant things that have changed over the last 8 days. Patient has noted some mild increased in urinary frequency and she has been trying to drink a lot of water. Patient did have blood work completed, EKG, troponin, chest x-ray the patient was given some fluids as well as pain medication. There was a fair amount of difficulty in obtaining the results of the blood work. Patient's white blood cell count within normal limits. On reassessment the patient was feeling improved. It did explain to the patient that we are pending her BMP. Urinalysis clear chest x-ray is clear. Patient's EKG is fairly unchanged from prior. Patient's BMP is unremarkable. Patient was informed of these findings. Patient was deemed suitable for outpatient follow- up and treatment at this time. Patient does have some chronic right lower extremity swelling which is chronic and the patient is actively being treated for DVT. Chronic CKD which is unchanged from prior. Patient was given strict follow-up, discharge, and return precautions. All questions were answered. Patient was deemed suitable for outpatient follow-up at this time. Patient agreed with the plan of care and was safely discharged home. Medication Reconcilliation Current Medication List: was personally reviewed by me Blood Pressure Screening Patient's blood pressure: Normal blood pressure Blood pressure disposition: Did not require urgent referral Impression Primary Impression: Generalized weakness Additional Impressions: Pain CKD (chronic kidney disease) stage 4, GFR 15-29 ml/min Scribe Attestation The scribe's documentation has been prepared under my direction and personally reviewed by me in its entirety. I confirm that the note above accurately reflects all work, treatment, procedures, and medical decision making performed by me. Departure Information Dispostion Home / Self-Care Referrals Thang Lakhani M.D. (PCP) Forms HOME CARE DOCUMENTATION FORM, IMPORTANT VISIT INFORMATION, WORK / SCHOOL INSTRUCTIONS Patient Instructions ED Weakness MINI, Alyssa [facility] Additional Instructions Please return to the emergency department if you have worsening or recurrent symptoms not amenable to at-home treatment. Please call for a follow-up appointment with her primary care physician. Please take your medications as prescribed. If you have other concerns and/or complaints please feel free to also call your primary care physician's office or return the ED for further evaluation, management, and treatment. You may take tylenol 650 mg every 6 hours as needed for pain/fever unless told by your physician to not take it or have liver problems. Take your medications as prescribed. You have been examined and treated today on an emergency basis only. This is not a substitute for, or an effort to provide, complete comprehensive medical care. It is impossible to recognize and treat all injuries or illnesses in a single emergency department visit. It is therefore important that you follow up closely with [facility], your PCP, and/or your specialist(s). Call as soon as possible for an appointment. Thank you for your time and consideration. I look forward to speaking with you again soon. Please don't hesitate to call us if you have any questions. Problem Qualifiers
[2018-01-20] MEDS ORDERED: FENTANYL CITRATE INJ 50 MCG/1 ML 2 ML VIAL IV ONE (12:30)
--- NOTE | 2018-01-20 12:32 | DIAGNOSTIC IMAGING REPORT ---
CHEST ONE VIEW PORTABLE HISTORY: 72 years-old Female EVALUATE WEAKNESS acute weakness COMPARISON: Chest radiograph 12/16/2017 TECHNIQUE: Portable AP view of the chest FINDINGS: Cardiac silhouette is mildly enlarged. Pulmonary vascular congestion without overt pulmonary edema. Lungs are mildly hypoinflated. Subsegmental left basilar opacities. No pneumothorax, pleural effusion or overt pulmonary edema. Convex right curvature about the thoracic spine. Multilevel degenerative changes of the spine with degenerative changes of the shoulders noted as well. IMPRESSION: 1. Cardiomegaly with vascular congestion and hypoinflation. 2. Subsegmental left basilar opacities suggest atelectasis. The above report was generated using voice recognition software. It may contain grammatical, syntax or spelling errors. Electronically signed by: Farshad Kimbrough M.D. 01/20/2018 12:30 PM Dictated Date/Time: 01/20/2018 12:29 PM
[2018-01-20 14:30] VITALS: O2SAT 100; Ht 142.2 cm; Wt 69.0 kg
[2018-01-20 14:44] LABS: BASO % 0.3 %; BASO ABS # 0.02 K/uL (0-0.2); EOS % 2.3 %; EOS ABS # 0.16 K/uL (0-0.5); HEMATOCRIT 41.7 % (37-47); HEMOGLOBIN 13.2 g/dL (12.0-16.0); IG# 0.02 K/uL (0.00-0.02); LYMPH % 44.8 %; LYMPH ABS # 3.07 K/uL (1.2-3.4); MEAN CORPUSCULAR HGB CONC 31.7 g/dl (32-36); MEAN PLATELET VOLUME 10.4 fL (7.4-10.4); MONO % 7.6 %; MONO ABS # 0.52 K/uL (0.11-0.59); NEUT % 44.7 %; NEUT ABS # 3.07 K/uL (1.4-6.5); PLATELET COUNT 253 K/uL (130-400); RED CELL DISTRIBUTION WIDTH CV 14.2 % (11.5-14.5); RED CELL DISTRIBUTION WIDTH SD 52.3 fL (36.4-46.3); WHITE BLOOD COUNT 6.86 K/uL (4.8-10.8)
[2018-01-20 15:55] LABS: ALBUMIN 3.8 gm/dl (3.4-5.0); ALKALINE PHOSPHATASE 120 U/L (45-117); ALT/SGPT 21 U/L (12-78); AST/SGOT 23 U/L (15-37); BLOOD UREA NITROGEN 32 mg/dl (7-18); CALCIUM 8.7 mg/dl (8.5-10.1); CARBON DIOXIDE 25 mmol/L (21-32); GLUCOSE 85 mg/dl (70-99); PHOSPHORUS 2.5 mg/dl (2.5-4.9); SODIUM 139 mmol/L (136-145); TOTAL PROTEIN 8.1 gm/dl (6.4-8.2)
[2018-01-20 16:48] VITALS: BP 112/79; PULSE 92; O2SAT 99
== END 2018-01-20 16:58 | disposition home or self-care (01) ==
LOC: C.EDB 12:02 → C.EDC 16:58
DX: R53.1 Weakness (principal); R52 Pain, unspecified; N18.4 Chronic kidney disease, stage 4 (severe); R19.7 Diarrhea, unspecified; I82.401 Acute embolism and thrombosis of unspecified deep veins of right lower extremity; E03.9 Hypothyroidism, unspecified; E78.5 Hyperlipidemia, unspecified; F17.200 Nicotine dependence, unspecified, uncomplicated; Z79.01 Long term (current) use of anticoagulants; Z79.82 Long term (current) use of aspirin; Z79.899 Other long term (current) drug therapy; Z88.1 Allergy status to other antibiotic agents

== ENCOUNTER 2018-12-04 14:03 | Inpatient (IN) ==
[2018-12-04] MEDS ORDERED: SODIUM CHLORIDE 0.9% 1000ML 500 ML IV ONE (14:54)
[2018-12-04] MEDS ORDERED: MoRPHine SULFATE 4 MG/ML 1 ML CARP\\VIAL IV STA ×2 (14:54→18:48)
[2018-12-04] MEDS ORDERED: ONDANSETRON INJ 2 MG/ML 2 ML VIAL IV STA ×2 (14:54→18:48)
[2018-12-04 16:23] LABS: Basophils # (auto) 0.03 K/uL (0-0.2); Basophils % (auto) 0.4 %; Hematocrit (blood only) 39.9 % (37-47); Hemoglobin 12.7 g/dL (12.0-16.0); Immature Granulocytes # (auto) 0.02 K/uL (0.00-0.02); Immature Granulocytes % (auto) 0.3 %; Lymphocytes # (auto) 2.41 K/uL (1.2-3.4); Lymphocytes % (auto) 35.6 %; Mean Corpuscular Hgb Conc 31.8 g/dL (32-36); Monocytes # (auto) 0.39 K/uL (0.11-0.59); Monocytes % (auto) 5.8 %; Neutrophils # (auto) 3.72 K/uL (1.4-6.5); Neutrophils % (auto) 54.9 %; Platelet Count 194 K/uL (130-400); RDW Coefficient of Variation 14.7 % (11.5-14.5); RDW Standard Deviation 54.4 fL (36.4-46.3); Red Blood Count 3.95 M/uL (4.2-5.4); White Blood Count 6.77 K/uL (4.8-10.8)
[2018-12-04 16:31] LABS: INR 2.5 (0.9-1.1)
[2018-12-04 16:42] LABS: Alanine Aminotransferase 19 U/L (12-78); Albumin Level 3.4 gm/dl (3.4-5.0); Aspartate Aminotransferase 18 U/L (15-37); Blood Urea Nitrogen 29 mg/dl (7-18); Calcium 8.8 mg/dl (8.5-10.1); Carbon Dioxide 31 mmol/L (21-32); Chloride 107 mmol/L (98-107); Creatinine Clr Calc Pharmacy 18.9 ml/min; Est GFR (African American) 26.8; Est GFR (Non-African American) 23.1; Glucose 105 mg/dl (70-99); Potassium 4.8 mmol/L (3.5-5.1); Sodium 141 mmol/L (136-145)
[2018-12-04 16:45] LABS: Albumin Globulin Ratio 0.9 (0.9-2); Alkaline Phosphatase 109 U/L (45-117); Bilirubin,Total 0.3 mg/dl (0.2-1); Total Protein 7.4 gm/dl (6.4-8.2)
[2018-12-04 17:06] LABS: Troponin I < 0.015 ng/ml (0-0.045)
--- NOTE | 2018-12-04 17:55 | CT Scan Report ---
CT abd pelvis wo con CLINICAL HISTORY: 73 years-old Female presenting with fall 2 days ago, left sided pain and the chest and abdomen, on Coumadin. TECHNIQUE: Multidetector CT of the abdomen and pelvis was performed without the use of intravenous co ntrast. IV contrast: None. One or more dose lowering techniques were used consistent with the princip les of ALARA (as low as reasonably achievable), including automatic exposure control, mA or kV adjust ment to individual patient size, and/or use of iterative reconstruction. COMPARISON: 12/16/2017. CT DOSE (mGy.cm): The estimated cumulative dose is 801.32. FINDINGS: [employer] topogram: Orthopedic hardware. Lung bases: Borderline enlargement of the heart. Coronary artery, aortic valve, and mitral annular ca lcification. No pericardial or pleural effusion. Peribronchovascular consolidation in the left lower lobe with dependent consolidation. Patchy groundglass predominantly peripheral infiltrates in the rig ht middle and right lower lobes. Liver: Normal morphology. Normal density. Biliary: No gross intrahepatic biliary ductal dilatation allowing for noncontrast technique. Extra he patic bile duct prominence measuring up to 11 mm in diameter without gross evidence of an obstructing radiodense calculus. Gallbladder contains gallstones. Pancreas: Moderate parenchymal atrophy. Spleen: Normal noncontrast appearance. Adrenal glands: Normal noncontrast appearance. Kidneys and ureters: Exophytic simple cyst suspected in the left kidney. Several additional cysts jovanni pected bilaterally with an exophytic right upper pole cyst. Bilateral nephrolithiasis with a greater stone burden on the right. No hydronephrosis. Ureters nondilated. Bladder: The configuration of the bladder suggests pelvic ligamentous laxity. Bladder otherwise ted l. Pelvic organs: Normal noncontrast appearance. Bowel: Moderate stool burden in the right colon. The appendix is normal. No bowel obstruction. Peritoneal cavity: No free fluid or intraperitoneal gas. Lymph nodes: No gross lymphadenopathy allowing for noncontrast technique. Vasculature: Atherosclerosis of the normal caliber abdominal aorta. Varices noted in the mons. Abdominal wall: Radiodense sutures in the ventral midline abdomen with slight diastases of the abdomi nis rectus. Musculoskeletal: Degenerative changes of the spine. Mildly displaced fracture of the lateral left six th through eighth ribs. These are acute appearing. Chronic appearing fracture of the right transverse process of L3. The sacrum is intact. Intramedullary nail fixation in the left femur. Moderate compre ssion deformity of L5 and severe compression deformity of L3. Mild compression deformity of T10 and m oderate compression deformity of T8. This is new at T10. IMPRESSION: 1. Acute mildly displaced fractures of the left lateral sixth through eighth ribs. 2. New mild compression fracture at T10. 3. No acute intra-abdominal injury. 4. Cholelithiasis. 5. Chronic changes at the lung bases may suggest either chronic aspiration or congestive change. Electronically signed by: Thang Willson M.D. 12/04/2018 5:52 PM
--- NOTE | 2018-12-04 18:03 | CT Scan Report ---
CT chest wo con CLINICAL HISTORY: 73 years-old Female presenting with fall, left-sided pain, on Coumadin. TECHNIQUE: Multidetector CT imaging of the chest was performed without the use of intravenous contras t. IV contrast: None. One or more dose lowering techniques were used consistent with the principles o f ALARA (as low as reasonably achievable), including automatic exposure control, mA or kV adjustment to individual patient size, and/or use of iterative reconstruction. COMPARISON: 06/03/2015. CT DOSE (mGy.cm): The estimated cumulative dose is 801.32 mGy.cm. FINDINGS: [employer] topogram: Orthopedic hardware. Soft tissues: Mild infiltration of the left lateral chest wall and subcutaneous tissue. Normal thyroi d. Few prominent precarinal lymph nodes measuring up to 11 mm in the short axis. Evaluation of the hi la limited in the absence of intravenous contrast. Atherosclerosis of the aorta. Main pulmonary arter y enlarged measuring 3.7 cm in diameter. Top normal cardiac size. Coronary artery, aortic valve, and mitral annular calcification. No pericardial or pleural effusion. Upper abdomen normal. Lungs and airways: No pneumothorax. Central airways patent. Pulmonary arteries are not significantly enlarged relative to adjacent bronchi. No interlobular septal thickening. Paraseptal and centrilobula r apical predominant emphysema. Peribronchovascular consolidation volume loss in the left lower lobe. Subpleural/peripheral predominant tubular groundglass opacities in the right lower lobe with subtle bronchiectasis suggested. Subpleural reticulation also evident to a lesser degree in the upper lobes. Musculoskeletal: Degenerative changes of the spine. Acute mildly displaced and nondisplaced fractures of the left lateral sixth through eighth ribs. Possible nondisplaced fracture of the left lateral ni nth rib. The fracture of the seventh rib is segmental. Mild compression deformity of T11. Moderate co mpression deformity of T9. The fracture of T11 is new from prior exam. IMPRESSION: 1. Acute mildly displaced and nondisplaced fractures of the left lateral sixth through eighth ribs. 2. Possible nondisplaced fracture of the left lateral ninth rib. 3. New mild compression fracture of T11. This was previously reported as T10 on the CT of abdomen an d pelvis. Confusion as to the exact level may be a result of rudimentary ribs in the lower thoracic s pine and potentially 6 lumbar vertebral body levels. 4. No parenchymal injury of the lungs. 5. Upper lobe dominant emphysema. 6. Mild fibrotic changes suggested at the lung bases. Differential considerations include chronic as piration or less likely congestive change. Electronically signed by: Thang Willson M.D. 12/04/2018 6:01 PM
--- NOTE | 2018-12-04 21:13 | Emergency Department Note ---
Entered by Bianca Guerra acting as a scribe for Gee Eaton DO History of Present Illness General Chief complaint: Rib Injury/Pain Stated complaint: FALL ONTO LEFT SIDE PAINFUL SHOULDER AND RIBS Source: patient Limitations: no limitations History of Present Illness Provider complaint: Rib Pain Onset (ago): day(s) 2 Location: chest Radiation: back Maximum Pain Intensity: 10 Relieved By: + rest Associated symptoms: + denies other symptoms (-head pain, -visual changes) and + other (+left-sided general pain); no headaches The patient is a 73 year old female who presents to the Emergency Room with complaints of rib pain that began 2 days prior to arrival after a fall. The patient states that her pain is relieved by rest. The patient states that she went to pick something off of the floor and lost her balance and states that she fell. The patient states that fell on her left-side and hit her back as well. The patient states that she has general pain on her left side. The patient denies hitting her head. The patient denies any head pain, headache, or visual changes. The patient states that she is on Warfarin due to a history of blood clots. The patient also states that she has a history of back surgery. Pain is significantly worsened with any kind of movement or breathing. Home Medications Home Medications Medication Instructions Recorded Confirmed Type aspirin 81 mg tablet,delayed 81 mg PO QAM tab 06/06/18 12/04/18 History release atorvastatin 80 mg tablet 80 mg PO HS tab 06/06/18 12/04/18 History calcium carbonate 500 mg (1,250 1 tab PO HS tab 06/06/18 12/04/18 History mg)-vitamin D3 200 unit tablet denosumab 60 mg/mL subcutaneous See Rx Instructions SQ .COMPLEX ml 06/06/18 12/04/18 History syringe fluticasone propionate 50 1 sprays INTNAS QAM PRN gm 06/06/18 12/04/18 History mcg/actuation nasal spray,suspension gabapentin 300 mg capsule 300 mg PO HS cap 06/06/18 12/04/18 History levothyroxine 88 mcg capsule 88 mcg PO QAM cap 06/06/18 12/04/18 History loratadine 10 mg tablet 10 mg PO DAILY PRN 06/06/18 12/04/18 History metoprolol succinate ER 50 mg 50 mg PO QAM ea 06/06/18 12/04/18 History capsule sprinkle, ext. release 24 hr omeprazole 40 mg capsule,delayed 40 mg PO QAM cap 06/06/18 12/04/18 History release polyethylene glycol 3350 17 17 gm PO QAM PRN gm 06/06/18 12/04/18 History gram/dose oral powder potassium citrate ER 15 mEq (1,620 15 meq PO QAM tab 06/06/18 12/04/18 History mg) tablet,extended release ranitidine 300 mg capsule 300 mg PO HS cap 06/06/18 12/04/18 History warfarin 2.5 mg tablet 2.5 mg PO HS 11/03/18 12/04/18 History acetaminophen [Tylenol Arthritis 650 mg PO Q12H PRN 12/04/18 12/04/18 History Pain] Allergies Allergy/AdvReac Type Severity Reaction Status Date / Time nitrofurantoin Allergy Intermediate HIVES,ITCHI Verified 12/04/18 15:06 NG mivacurium Allergy Unknown HIVES Verified 12/04/18 15:06 Past Med/Surg History Medical History Compression fracture of lumbar vertebra (Chronic) Thyroid disease (Chronic) Osteopenia (Chronic 11/29/12) Back pain (Acute) DVT (deep venous thrombosis) (Chronic) Hyperlipidemia (Chronic) Kidney stones (Chronic) Lymphoma (Chronic) Hematuria (Acute) Vomiting (Acute) Dehydration (Acute) Hematuria (Acute) Vomiting (Acute) Back pain (Acute) Back pain (Acute) RAD (reactive airway disease) with wheezing (Acute) Bronchitis (Acute) Sinusitis (Acute) Cellulitis Renal insufficiency (Acute) Chronic deep vein thrombosis of left lower extremity (Acute) Resistance to antibiotic UTI (urinary tract infection) GI bleed Troponin level elevated Constipation (Acute) Surgical History History of back surgery Family History Other Family history non-contributory Social History Feels Safe at Home: Yes Smoking Status: Current every day smoker Review of Systems See HPI for pertinent positives & negatives. and A total of 10 systems reviewed and were otherwise negative Physical Exam Vital Signs Vital Signs - 24 hr 12/04/18 14:10 06/13/19 16:33 12/04/18 16:41 Temperature 36.5 C Temperature Source Oral Sepsis Recent Fever Within 48 Hours No Sepsis New/Unexplained Change in Mental Status No Sepsis Action Taken by Nursing No Action Required Pulse Rate 85 75 Pulse Rate from SpO2 Sensor 75 Respiratory Rate 18 25 H Blood Pressure 124/73 121/54 L Blood Pressure Mean 90 76 Pulse Oximetry 98 100 92 Oxygen Delivery Method Room Air Oxygen Flow Rate 12/04/18 16:57 12/04/18 17:00 12/04/18 17:01 Temperature Temperature Source Sepsis Recent Fever Within 48 Hours Sepsis New/Unexplained Change in Mental Status Sepsis Action Taken by Nursing Pulse Rate 74 74 76 Pulse Rate from SpO2 Sensor 72 75 72 Respiratory Rate 22 22 21 Blood Pressure 131/59 L Blood Pressure Mean 83 Pulse Oximetry 100 100 100 Oxygen Delivery Method Oxygen Flow Rate 12/04/18 17:10 12/04/18 17:20 12/04/18 17:42 Temperature Temperature Source Sepsis Recent Fever Within 48 Hours Sepsis New/Unexplained Change in Mental Status Sepsis Action Taken by Nursing Pulse Rate 70 72 78 Pulse Rate from SpO2 Sensor 70 68 Respiratory Rate 21 23 25 H Blood Pressure Blood Pressure Mean Pulse Oximetry 98 100 Oxygen Delivery Method Oxygen Flow Rate 12/04/18 17:50 12/04/18 18:00 12/04/18 18:01 Temperature Temperature Source Sepsis Recent Fever Within 48 Hours Sepsis New/Unexplained Change in Mental Status Sepsis Action Taken by Nursing Pulse Rate 77 77 74 Pulse Rate from SpO2 Sensor 79 74 75 Respiratory Rate 22 19 16 Blood Pressure 120/75 Blood Pressure Mean 90 Pulse Oximetry 83 L 80 L 100 Oxygen Delivery Method Room Air Room Air Nasal Cannula Oxygen Flow Rate 2 12/04/18 18:10 12/04/18 18:20 12/04/18 18:30 Temperature Temperature Source Sepsis Recent Fever Within 48 Hours Sepsis New/Unexplained Change in Mental Status Sepsis Action Taken by Nursing Pulse Rate 74 75 70 Pulse Rate from SpO2 Sensor 76 73 74 Respiratory Rate 18 17 14 Blood Pressure Blood Pressure Mean Pulse Oximetry 100 99 93 Oxygen Delivery Method Nasal Cannula Nasal Cannula Nasal Cannula Oxygen Flow Rate 2 2 2 12/04/18 18:31 12/04/18 18:40 12/04/18 18:50 Temperature Temperature Source Sepsis Recent Fever Within 48 Hours Sepsis New/Unexplained Change in Mental Status Sepsis Action Taken by Nursing Pulse Rate 77 75 79 Pulse Rate from SpO2 Sensor 75 75 Respiratory Rate 23 15 16 Blood Pressure 119/48 L Blood Pressure Mean 71 Pulse Oximetry 93 100 86 L Oxygen Delivery Method Nasal Cannula Nasal Cannula Room Air Oxygen Flow Rate 2 2 12/04/18 19:00 12/04/18 19:01 12/04/18 19:10 Temperature Temperature Source Sepsis Recent Fever Within 48 Hours Sepsis New/Unexplained Change in Mental Status Sepsis Action Taken by Nursing Pulse Rate 77 71 83 Pulse Rate from SpO2 Sensor Respiratory Rate 23 19 18 Blood Pressure 120/55 L Blood Pressure Mean 76 Pulse Oximetry 96 Oxygen Delivery Method Nasal Cannula Oxygen Flow Rate 2 12/04/18 19:20 12/04/18 19:30 12/04/18 19:31 Temperature Temperature Source Sepsis Recent Fever Within 48 Hours Sepsis New/Unexplained Change in Mental Status Sepsis Action Taken by Nursing Pulse Rate 72 73 71 Pulse Rate from SpO2 Sensor 72 70 Respiratory Rate 20 16 16 Blood Pressure 130/37 L Blood Pressure Mean 68 Pulse Oximetry 97 98 Oxygen Delivery Method Nasal Cannula Nasal Cannula Oxygen Flow Rate 2 2 12/04/18 19:52 12/04/18 20:00 12/04/18 20:01 Temperature Temperature Source Sepsis Recent Fever Within 48 Hours Sepsis New/Unexplained Change in Mental Status Sepsis Action Taken by Nursing Pulse Rate 88 82 79 Pulse Rate from SpO2 Sensor 81 79 Respiratory Rate 25 H 15 12 Blood Pressure 165/75 H 140/70 Blood Pressure Mean 105 93 Pulse Oximetry 100 100 Oxygen Delivery Method Nasal Cannula Nasal Cannula Nasal Cannula Oxygen Flow Rate 2 2 2 GENERAL: alert, well appearing, well nourished, no distress, non-toxic. HEAD: normal cephalic, atraumatic. EYE EXAM: normal conjunctiva, PERRL and EOM's grossly intact. OROPHARYNX: no exudate, no erythema, lips, buccal mucosa, and tongue normal and mucous membranes are moist. EARS: TMs clear b/l. NECK: supple, no nuchal rigidity, no adenopathy, non-tender. CHEST: stable to compression anteriorly and posteriorly, tenderness throughout left flank with bruising in the mid left flank, rib tenderness and tracking into left abdomen. LUNGS: clear to auscultation. Normal chest wall mechanics. HEART: no murmurs, S1 normal and S2 normal. ABDOMEN: abdomen soft, tenderness to palpitation throughout the left abdomen, normo-active bowel sounds, no masses, no rebound or guarding. PELVIS: stable to compression anteriorly and posteriorly. BACK: Back is symmetrical on inspection and there is no deformity, no midline tenderness, no CVA tenderness. UPPER EXTREMITIES: full active and passive range of motion of all joints without tenderness to palpation. LOWER EXTREMITIES: full active and passive range of motion of all joints without tenderness to palpation. NEURO EXAM: Normal sensorium, cranial nerves II-XII grossly intact, normal speech, no gross weakness of arms, no gross weakness of legs. GCS: 15. Course 1449: The patient was evaluated in room B5, and a complete history and physical examination were performed. 1645: I checked on the patient. The patient was updated on their imaging and lab results. The patient states that she is still having pain. 1830: I checked on the patient. The patient was updated on their imaging and lab results. 1924: I checked on the patient. The patient was updated on their imaging and lab results. The patient was 85% on room air. 2020: I reviewed the [facility] will evaluate the patient for further hospitalization. Consultations Consultation #1: Dr. [facility] Hospitalist Time: 20:20 Administered Medications Discontinued Medications Sodium Chloride (Nss 1000ml) 500 mls @ 999 mls/hr IV .Q31M ONE Stop: 12/04/18 15:24 Last Infusion: 12/04/18 17:39 Dose: 0 mls/hr Documented by: [id number] Admin: 12/04/18 16:28 Dose: 500 mls/hr Documented by: [id number] Morphine Sulfate (Morphine Sulfate) 4 mg IV NOW STA Stop: 12/04/18 14:55 Last Admin: 12/04/18 16:28 Dose: 4 mg Documented by: [id number] Morphine Sulfate (Morphine Sulfate) 4 mg IV NOW STA Stop: 12/04/18 18:49 Last Admin: 12/04/18 19:25 Dose: 4 mg Documented by: [id number] Ondansetron HCl (Zofran) 4 mg IV NOW STA Stop: 12/04/18 14:55 Last Admin: 12/04/18 16:28 Dose: 4 mg Documented by: [id number] Ondansetron HCl (Zofran) 4 mg IV NOW STA Stop: 12/04/18 18:49 Last Admin: 12/04/18 19:24 Dose: Not Given Documented by: [id number] Medical Decision Making Differential Diagnosis Differential diagnoses include major intracranial, cervical, spinal, thoracic, abdominal, pelvic and neurologic injury. Fracture, contusion, sprain, strain, laceration, abrasions included as well. Medical Records Attestation: I reviewed the patient's medical records. Home Medications Current Medication List: was personally reviewed by me Laboratory Data Attestation: I reviewed the patient's lab results. Result diagrams: 12/04/18 15:53 12/04/18 15:53 Lab Results 12/04/18 12/04/18 12/04/18 Range/Units 15:53 15:53 15:53 WBC 6.77 (4.8-10.8) K/uL RBC 3.95 L (4.2-5.4) M/uL Hgb 12.7 (12.0-16.0) g/dL Hct 39.9 (37-47) % MCV 101.0 H (80-100) fL MCH 32.2 (25-34) pg MCHC 31.8 L (32-36) g/dL RDW Std Deviation 54.4 H (36.4-46.3) fL RDW Coeff of Damien 14.7 H (11.5-14.5) % Plt Count 194 (130-400) K/uL MPV 11.0 H (7.4-10.4) fL Immature Gran % (Auto) 0.3 % Neut % (Auto) 54.9 % Lymph % (Auto) 35.6 % Caroline % (Auto) 5.8 % Eos % (Auto) 3.0 % Baso % (Auto) 0.4 % Immature Gran # (Auto) 0.02 (0.00-0.02) K/uL Neut # (Auto) 3.72 (1.4-6.5) K/uL Lymph # (Auto) 2.41 (1.2-3.4) K/uL Caroline # (Auto) 0.39 (0.11-0.59) K/uL Eos # (Auto) 0.20 (0-0.5) K/uL Baso # (Auto) 0.03 (0-0.2) K/uL PT 24.0 H (9.0-12.0) Seconds INR 2.5 H (0.9-1.1) Sodium 141 (136-145) mmol/L Potassium 4.8 (3.5-5.1) mmol/L Chloride 107 (98-107) mmol/L Carbon Dioxide 31 (21-32) mmol/L Anion Gap 3.0 (3-11) BUN 29 H (7-18) mg/dl Creatinine 2.05 H (0.6-1.2) mg/dl Est Cr Clr Drug Dosing 18.9 ml/min Est GFR ( Amer) 26.8 Est GFR (Non-Af Amer) 23.1 BUN/Creatinine Ratio 14.0 (10-20) Glucose 105 H (70-99) mg/dl Calcium 8.8 (8.5-10.1) mg/dl Total Bilirubin 0.3 (0.2-1) mg/dl AST 18 (15-37) U/L ALT 19 (12-78) U/L Alkaline Phosphatase 109 (45-117) U/L Troponin I < 0.015 (0-0.045) ng/ml Total Protein 7.4 (6.4-8.2) gm/dl Albumin 3.4 (3.4-5.0) gm/dl Globulin 4.0 (2.5-4.0) gm/dl Albumin/Globulin Ratio 0.9 (0.9-2) Lipase 67 L (73-393) U/L 12/04/18 Range/Units 15:53 WBC (4.8-10.8) K/uL RBC (4.2-5.4) M/uL Hgb (12.0-16.0) g/dL Hct (37-47) % MCV (80-100) fL MCH (25-34) pg MCHC (32-36) g/dL RDW Std Deviation (36.4-46.3) fL RDW Coeff of Damien (11.5-14.5) % Plt Count (130-400) K/uL MPV (7.4-10.4) fL Immature Gran % (Auto) % Neut % (Auto) % Lymph % (Auto) % Caroline % (Auto) % Eos % (Auto) % Baso % (Auto) % Immature Gran # (Auto) (0.00-0.02) K/uL Neut # (Auto) (1.4-6.5) K/uL Lymph # (Auto) (1.2-3.4) K/uL Caroline # (Auto) (0.11-0.59) K/uL Eos # (Auto) (0-0.5) K/uL Baso # (Auto) (0-0.2) K/uL PT (9.0-12.0) Seconds INR (0.9-1.1) Sodium (136-145) mmol/L Potassium (3.5-5.1) mmol/L Chloride (98-107) mmol/L Carbon Dioxide (21-32) mmol/L Anion Gap (3-11) BUN (7-18) mg/dl Creatinine (0.6-1.2) mg/dl Est Cr Clr Drug Dosing ml/min Est GFR ( Amer) Est GFR (Non-Af Amer) BUN/Creatinine Ratio (10-20) Glucose (70-99) mg/dl Calcium (8.5-10.1) mg/dl Total Bilirubin (0.2-1) mg/dl AST (15-37) U/L ALT (12-78) U/L Alkaline Phosphatase (45-117) U/L Troponin I Cancelled (0-0.045) ng/ml Total Protein (6.4-8.2) gm/dl Albumin (3.4-5.0) gm/dl Globulin (2.5-4.0) gm/dl Albumin/Globulin Ratio (0.9-2) Lipase (73-393) U/L Imaging Data Radiologist's Impression: Radiology results as stated below per my review and the radiologist's interpretation: CT abd pelvis wo con CLINICAL HISTORY: 73 years-old Female presenting with fall 2 days ago, left sided pain and the chest and abdomen, on Coumadin. TECHNIQUE: Multidetector CT of the abdomen and pelvis was performed without the use of intravenous contrast. IV contrast: None. One or more dose lowering techniques were used consistent with the principles of ALARA (as low as reasonably achievable), including automatic exposure control, mA or kV adjustment to individual patient size, and/or use of iterative reconstruction. COMPARISON: 12/16/2017. CT DOSE (mGy.cm): The estimated cumulative dose is 801.32. FINDINGS: Warehouse Administrative Assistant topogram: Orthopedic hardware. Lung bases: Borderline enlargement of the heart. Coronary artery, aortic valve, and mitral annular calcification. No pericardial or pleural effusion. Peribronchovascular consolidation in the left lower lobe with dependent consolidation. Patchy groundglass predominantly peripheral infiltrates in the right middle and right lower lobes. Liver: Normal morphology. Normal density. Biliary: No gross intrahepatic biliary ductal dilatation allowing for noncontrast technique. Extra hepatic bile duct prominence measuring up to 11 mm in diameter without gross evidence of an obstructing radiodense calculus. Gallbladder contains gallstones. Pancreas: Moderate parenchymal atrophy. Spleen: Normal noncontrast appearance. Adrenal glands: Normal noncontrast appearance. Kidneys and ureters: Exophytic simple cyst suspected in the left kidney. Several additional cysts suspected bilaterally with an exophytic right upper pole cyst. Bilateral nephrolithiasis with a greater stone burden on the right. No hydronephrosis. Ureters nondilated. Bladder: The configuration of the bladder suggests pelvic ligamentous laxity. Bladder otherwise normal. Pelvic organs: Normal noncontrast appearance. Bowel: Moderate stool burden in the right colon. The appendix is normal. No bowel obstruction. Peritoneal cavity: No free fluid or intraperitoneal gas. Lymph nodes: No gross lymphadenopathy allowing for noncontrast technique. Vasculature: Atherosclerosis of the normal caliber abdominal aorta. Varices noted in the mons. Abdominal wall: Radiodense sutures in the ventral midline abdomen with slight diastases of the abdominis rectus. Musculoskeletal: Degenerative changes of the spine. Mildly displaced fracture of the lateral left sixth through eighth ribs. These are acute appearing. Chronic appearing fracture of the right transverse process of L3. The sacrum is intact. Intramedullary nail fixation in the left femur. Moderate compression deformity of L5 and severe compression deformity of L3. Mild compression deformity of T10 and moderate compression deformity of T8. This is new at T10. IMPRESSION: 1. Acute mildly displaced fractures of the left lateral sixth through eighth ribs. 2. New mild compression fracture at T10. 3. No acute intra-abdominal injury. 4. Cholelithiasis. 5. Chronic changes at the lung bases may suggest either chronic aspiration or congestive change. Electronically signed by: Thang Willson M.D. 12/04/2018 5:[address] chest wo con CLINICAL HISTORY: 73 years-old Female presenting with fall, left-sided pain, on Coumadin. TECHNIQUE: Multidetector CT imaging of the chest was performed without the use of intravenous contrast. IV contrast: None. One or more dose lowering techniques were used consistent with the principles of ALARA (as low as reasonably achievable), including automatic exposure control, mA or kV adjustment to individual patient size, and/or use of iterative reconstruction. COMPARISON: 06/03/2015. CT DOSE (mGy.cm): The estimated cumulative dose is 801.32 mGy.cm. FINDINGS: Warehouse Administrative Assistant topogram: Orthopedic hardware. Soft tissues: Mild infiltration of the left lateral chest wall and subcutaneous tissue. Normal thyroid. Few prominent precarinal lymph nodes measuring up to 11 mm in the short axis. Evaluation of the mavis limited in the absence of intravenous contrast. Atherosclerosis of the aorta. Main pulmonary artery enlarged measuring 3.7 cm in diameter. Top normal cardiac size. Coronary artery, aortic valve, and mitral annular calcification. No pericardial or pleural effusion. Upper abdomen normal. Lungs and airways: No pneumothorax. Central airways patent. Pulmonary arteries are not significantly enlarged relative to adjacent bronchi. No interlobular septal thickening. Paraseptal and centrilobular apical predominant emphysema. Peribronchovascular consolidation volume loss in the left lower lobe. Subpleural/peripheral predominant tubular groundglass opacities in the right lower lobe with subtle bronchiectasis suggested. Subpleural reticulation also evident to a lesser degree in the upper lobes. Musculoskeletal: Degenerative changes of the spine. Acute mildly displaced and nondisplaced fractures of the left lateral sixth through eighth ribs. Possible n ondisplaced fracture of the left lateral ninth rib. The fracture of the seventh rib is segmental. Mild compression deformity of T11. Moderate compression deformity of T9. The fracture of T11 is new from prior exam. IMPRESSION: 1. Acute mildly displaced and nondisplaced fractures of the left lateral sixth through eighth ribs. 2. Possible nondisplaced fracture of the left lateral ninth rib. 3. New mild compression fracture of T11. This was previously reported as T10 on the CT of abdomen and pelvis. Confusion as to the exact level may be a result of rudimentary ribs in the lower thoracic spine and potentially 6 lumbar vertebral body levels. 4. No parenchymal injury of the lungs. 5. Upper lobe dominant emphysema. 6. Mild fibrotic changes suggested at the lung bases. Differential co nsiderations include chronic aspiration or less likely congestive change. Electronically signed by: Thang Willson M.D. 12/04/2018 6:01 PM ECG Data Attestation: I personally reviewed and interpreted this ECG as follows: Indication: other (+trauma) Rate (beats per minute): 76 Rhythm: sinus rhythm Findings: + other (+normal axis ) and + PVC Blood Pressure Blood Pressure Findings: Normal blood pressure MDM Narrative Patient is a 73-year-old female who presents the ER following a mechanical fall for severe left-sided flank and rib pain. Vitals were initially unremarkable but did show hypoxia as I do favor this secondary to the rib fractures and the narcotics that she was given. IV was established blood work was obtained and showed no significant leukocytosis or anemia. INR was therapeutic at 2.5. BMP with a creatinine of 2 consistent with previous. LFTs bilirubin was unremarkable. Troponin was negative. Lipase is unremarkable. CT of the chest and belly shows rib fractures 6 through 9 along with a possible compression fracture at T10 vs T11. Patient was given IV pain medications. She was slightly hypoxic. She initially went to go home but as her pain worsened she was agreeable to staying. Discussed case with the hospitalist and patient was admitted for further work-up. Pain was controlled with 2 dose of IV narcotics and Zofran Impression & Plan Closed rib fracture, Thoracic compression fracture Discharge Plan Visit Data Chief Complaint: Rib Injury/Pain Stated Complaint: FALL ONTO LEFT SIDE PAINFUL SHOULDER AND RIBS ED Provider: Gee Eaton Discharge Problem: Closed rib fracture, Thoracic compression fracture Patient Disposition: Admitted As Inpatient Forms Stand Alone Forms: My [facility] Prescriptions Prescriptions: No Action warfarin 2.5 mg tablet 2.5 mg PO HS RF: 0 aspirin 81 mg tablet,delayed release (DR/EC) 81 mg PO QAM RF: 0 atorvastatin 80 mg tablet 80 mg PO HS RF: 0 calcium carbonate-vitamin D3 [Os-Jonah 500 + D3] 500 mg(1,250mg) -200 unit tablet 1 tab PO HS RF: 0 denosumab 60 mg/mL syringe See Patient Comments SQ .COMPLEX RF: 0 fluticasone propionate 50 mcg/actuation spray,suspension 1 sprays INTNAS QAM PRN (Reason: Allergy Symptoms) RF: 0 gabapentin 300 mg capsule 300 mg PO HS RF: 0 levothyroxine 88 mcg capsule 88 mcg PO QAM RF: 0 loratadine 10 mg tablet 10 mg PO DAILY PRN (Reason: allergy symptoms) RF: 0 metoprolol succinate 50 mg capsule,sprinkle,ER 24hr 50 mg PO QAM RF: 0 omeprazole 40 mg capsule,delayed release(DR/EC) 40 mg PO QAM RF: 0 polyethylene glycol 3350 17 gram/dose powder 17 gm PO QAM PRN (Reason: Constipation) RF: 0 potassium citrate 15 mEq tablet extended release 15 meq PO QAM RF: 0 ranitidine HCl 300 mg capsule 300 mg PO HS RF: 0 acetaminophen [Tylenol Arthritis Pain] 650 mg Tablet Extended Release 650 mg PO Q12H PRN (Reason: Pain) RF: 0 Referrals Referrals: Thang Lakhani MD [Primary Care Provider] - Discharge Problem: Closed rib fracture Qualifiers: Encounter type: initial encounter Rib fracture type: multiple ribs Laterality: unspecified laterality Qualified Code(s): S22.49XA - Multiple fractures of ribs, unspecified side, initial encounter for closed fracture Thoracic compression fracture Qualifiers: Encounter type: initial encounter Thoracic vertebra fracture level: unspecified thoracic vertebra Qualified Code(s): S22.000A - Wedge compression fracture of unspecified thoracic vertebra, initial encounter for closed fracture The scribe's documentation has been prepared under my direction and personally reviewed by me in its entirety. I confirm that the note above accurately reflects all work, treatment, procedures, and medical decision making performed by me.
[2018-12-04] MEDS ORDERED: MAGNESIUM HYDROXIDE SUSP 30 ML UDC PO PRN (22:17)
[2018-12-04] MEDS ORDERED: ONDANSETRON INJ 2 MG/ML 2 ML VIAL IV PRN (22:17)
[2018-12-04] MEDS ORDERED: LORATADINE 10 MG TAB PO PRN (22:17)
[2018-12-04] MEDS ORDERED: ALUMINUM/MAGNESIUM SUSP 30 ML UDC PO PRN (22:17)
[2018-12-04] MEDS ORDERED: ACETAMINOPHEN 1000 MG/100 ML IV IV PRN (22:17)
[2018-12-04] MEDS ORDERED: POLYETHYLENE (MIRALAX) 17 GM PACK PO PRN (22:17)
[2018-12-04] MEDS ORDERED: NON-FORMULARY MEDICATION (Acetaminophen [Tylenol Arthritis Pain] 650 MG) PO PRN (22:17)
[2018-12-04] MEDS ORDERED: ACETAMINOPHEN 325 MG TAB PO PRN (22:17)
[2018-12-04] MEDS ORDERED: FLUTICASONE PROPIONATE NA SPR 16 GM BTL NAE PRN (22:17)
[2018-12-04] MEDS: GABAPENTIN 300 MG CAP PO SCH (23:23)
[2018-12-04] MEDS: WARFARIN SOD 2.5 MG TAB PO SCH (23:23)
[2018-12-04] MEDS: ATORVASTATIN 40 MG TAB PO SCH (23:23)
[2018-12-04] MEDS: guaiFENesin 600 MG TABCR PO SCH (23:23)
[2018-12-04] MEDS: CALCIUM 600MG + VIT D 400 IU TAB PO SCH (23:24)
[2018-12-04] MEDS: HYDROCODONE/ACETAMOPHEN 5/325MG TAB PO PRN (23:30)
--- NOTE | 2018-12-04 23:32 | History & Physical Report ---
Date of Service December 04, 2018 Assessment & Plan (1) Closed rib fracture: Left-sided closed rib fractures 6 through 8, with question of ninth. Patient does have Lidoderm patches that she uses for chronic back pain, that she may also apply to these new rib fractures. We will add Voltaren gel to his 4 times daily as needed. Start [place] 5/325 1 p.o. every 4 hours as needed moderate pain. Present on Admission?: Yes (2) Thoracic compression fracture: Noted as a new mild compression fracture, unclear if associated with current injury. Pain management as above. Present on Admission?: Yes (3) Pneumonia: Chest x-ray significant for bilateral lower lobe questionable aspiration pneumonia. Placed on duo nebs, ceftriaxone, azithromycin and guaifenesin. She does have some increased congestion suggestive of worsening of breathing due to decreased ability to take a deep breath due to rib cage pain. Present on Admission?: Yes (4) Hypothyroidism (acquired): Continue levothyroxine sodium 80 mcg p.o. daily. Present on Admission?: Yes (5) Hyperlipidemia: Continue atorvastatin 80 mg p.o. at bedtime. Present on Admission?: Yes (6) DVT (deep venous thrombosis): Chronically on warfarin. INR therapeutic 2.5. No suggestive of bleeding on CT of chest, abdomen or pelvis associate with recent trauma. Present on Admission?: Yes (7) Chronic kidney disease: Follows with Dr. Davis. Creatinine today is 2.05, with a range 1.7-2.39. Present on Admission?: Yes History of Present Illness Chief Complaint: Patient presents to the emergency department with complaint of left side and shoulder discomfort that has been worsening since a fall 2 days ago where she landed against the side of the bathtub. She has no other complaints of pain. Primary Care Provider: Thang Lakhani MD The patient is a 73-year-old female with a past medical history including DVT, hyperlipidemia, kidney stones, lymphoma, thoracic compression fracture, renal insufficiency, UTI and elevated troponin level, who presents to the emergency department with worsening left rib cage area pain after a mechanical fall 2 days ago where she slipped and fell and landed against her bathtub. Upon questioning, she does have an intermittent cough for a number of months, and her daughter does report that she does have issues with clearing her throat frequently while eating. Allergies Allergy/AdvReac Type Severity Reaction Status Date / Time nitrofurantoin Allergy Intermediate HIVES,ITCHI Verified 12/04/18 15:06 NG mivacurium Allergy Unknown HIVES Verified 12/04/18 15:06 Home Medications Home Medications Medication Instructions Recorded Confirmed Type aspirin 81 mg tablet,delayed 81 mg PO QAM tab 06/06/18 12/04/18 History release atorvastatin 80 mg tablet 80 mg PO HS tab 06/06/18 12/04/18 History calcium carbonate 500 mg (1,250 1 tab PO HS tab 06/06/18 12/04/18 History mg)-vitamin D3 200 unit tablet denosumab 60 mg/mL subcutaneous See Rx Instructions SQ .COMPLEX ml 06/06/18 12/04/18 History syringe fluticasone propionate 50 1 sprays INTNAS QAM PRN gm 06/06/18 12/04/18 History mcg/actuation nasal spray,suspension gabapentin 300 mg capsule 300 mg PO HS cap 06/06/18 12/04/18 History levothyroxine 88 mcg capsule 88 mcg PO QAM cap 06/06/18 12/04/18 History loratadine 10 mg tablet 10 mg PO DAILY PRN 06/06/18 12/04/18 History metoprolol succinate ER 50 mg 50 mg PO QAM ea 06/06/18 12/04/18 History capsule sprinkle, ext. release 24 hr omeprazole 40 mg capsule,delayed 40 mg PO QAM cap 06/06/18 12/04/18 History release polyethylene glycol 3350 17 17 gm PO QAM PRN gm 06/06/18 12/04/18 History gram/dose oral powder potassium citrate ER 15 mEq (1,620 15 meq PO QAM tab 06/06/18 12/04/18 History mg) tablet,extended release ranitidine 300 mg capsule 300 mg PO HS cap 06/06/18 12/04/18 History warfarin 2.5 mg tablet 2.5 mg PO HS 11/03/18 12/04/18 History acetaminophen [Tylenol Arthritis 650 mg PO Q12H PRN 12/04/18 12/04/18 History Pain] Past Med/Surg History Medical History Compression fracture of lumbar vertebra (Chronic) Thyroid disease (Chronic) Osteopenia (Chronic 11/29/12) Back pain (Acute) DVT (deep venous thrombosis) (Chronic) Hyperlipidemia (Chronic) Kidney stones (Chronic) Lymphoma (Chronic) Hematuria (Acute) Vomiting (Acute) Dehydration (Acute) Hematuria (Acute) Vomiting (Acute) Back pain (Acute) Back pain (Acute) RAD (reactive airway disease) with wheezing (Acute) Bronchitis (Acute) Sinusitis (Acute) Cellulitis Renal insufficiency (Acute) Chronic deep vein thrombosis of left lower extremity (Acute) Resistance to antibiotic UTI (urinary tract infection) GI bleed Troponin level elevated Constipation (Acute) Surgical History History of back surgery Family History Other Family history non-contributory Social History Preferred Language: Irish Communication Ability: Effective 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 Beliefs That Will Affect Care: None Current Living Situation: Alone Other Information That Helps Us Care for You: No Feels Safe at Home: Yes Safety Concerns: Feels Safe At This Time Smoking Status: Light tobacco smoker Tobacco Type: cigarettes Cigarettes Per Day: 2-3 Do You Dip or Chew Tobacco: No Second Hand Exposure: No Tobacco Cessation Education Requested by Patient: No (refused) Hx Alcohol Use: No Hx Substance Use: No Review of Systems Review of Systems: The patient denies chest pain, palpitations, shortness of breath, dyspnea on exertion, cough, lower extremity swelling, sore throat, fevers, chills, sweats, weight change, fatigue, nausea, vomiting, diarrhea , constipation, abdominal pain, pelvic pain, blood in urine or stool, dysuria, urinary frequency or urgency, lightheadedness, dizziness, headache, memory loss, loss of consciousness, rash, abnormal bruising or bleeding, focal or generalized weakness, numbness or tingling in arms or legs, generalized arthralgias or myalgias, neck pain, or night sweats. The review of systems is otherwise negative other than for that already noted above, and at least 10 systems have been reviewed. Physical Exam Physical Exam: The patient is awake, alert and oriented �3, well developed and well nourished, normocephalic and atraumatic, lying in bed and in intermittent acute distress. HEENT--PERRL, EOMI, mucous membranes and oropharynx normal. Neck--supple. No JVD. No bruits. Thyroid normal, trachea midline, no montrell nopathy. Heart--normal S1 and S2. No murmurs, rubs or gallops. Lungs/chest wall--few coarse breath sounds and wheezes bilaterally no respiratory distress, no accessory muscle use. Abdomen--normal bowel sounds and soft. Nontender. Nondistended. Extremities--no cyanosis or clubbing. No edema. There are good distal pulses b/l. Dermatologic--normal skin turgor, normal color, no abnormal lymph nodes, no rash. Neurologic--cranial nerves II through XII grossly intact. Rheumatologic--normal range of motion. Psychiatric--normal affect. Results & Data Vital Signs (Past 12 Hours) Vital Signs Temp Pulse Pulse Resp BP BP Pulse Ox 12/04/18 22:18 98.1 F 79 16 135/69 92 12/04/18 20:01 79 12 140/70 100 12/04/18 20:00 82 15 100 12/04/18 19:52 88 25 H 165/75 H 12/04/18 19:31 71 16 130/37 L 98 12/04/18 19:30 73 16 97 12/04/18 19:20 72 20 12/04/18 19:10 83 18 12/04/18 19:01 71 19 120/55 L 12/04/18 19:00 77 23 96 12/04/18 18:50 79 16 86 L 12/04/18 18:40 75 15 100 12/04/18 18:31 77 23 119/48 L 93 12/04/18 18:30 70 14 93 12/04/18 18:20 75 17 99 12/04/18 18:10 74 18 100 12/04/18 18:01 74 16 120/75 100 12/04/18 18:00 77 19 80 L 12/04/18 17:50 77 22 83 L 12/04/18 17:42 78 25 H 12/04/18 17:20 72 23 100 12/04/18 17:10 70 21 98 12/04/18 17:01 76 21 131/59 L 100 12/04/18 17:00 74 22 100 12/04/18 16:57 74 22 100 12/04/18 16:41 92 12/04/18 16:33 75 25 H 121/54 L 100 12/04/18 14:10 97.7 F 85 18 124/73 98 Laboratory Results Laboratory Results WBC 6.77 K/uL (4.8-10.8) 12/04/18 15:53 RBC 3.95 M/uL (4.2-5.4) L 12/04/18 15:53 Hgb 12.7 g/dL (12.0-16.0) 12/04/18 15:53 Hct 39.9 % (37-47) 12/04/18 15:53 MCV 101.0 fL (80-100) H 12/04/18 15:53 MCH 32.2 pg (25-34) 12/04/18 15:53 MCHC 31.8 g/dL (32-36) L 12/04/18 15:53 RDW Std Deviation 54.4 fL (36.4-46.3) H 12/04/18 15:53 RDW Coeff of Damien 14.7 % (11.5-14.5) H 12/04/18 15:53 Plt Count 194 K/uL (130-400) 12/04/18 15:53 MPV 11.0 fL (7.4-10.4) H 12/04/18 15:53 Immature Gran % (Auto) 0.3 % 12/04/18 15:53 Neut % (Auto) 54.9 % 12/04/18 15:53 Lymph % (Auto) 35.6 % 12/04/18 15:53 Ada % (Auto) 5.8 % 12/04/18 15:53 Eos % (Auto) 3.0 % 12/04/18 15:53 Baso % (Auto) 0.4 % 12/04/18 15:53 Immature Gran # (Auto) 0.02 K/uL (0.00-0.02) 12/04/18 15:53 Neut # (Auto) 3.72 K/uL (1.4-6.5) 12/04/18 15:53 Lymph # (Auto) 2.41 K/uL (1.2-3.4) 12/04/18 15:53 Ada # (Auto) 0.39 K/uL (0.11-0.59) 12/04/18 15:53 Eos # (Auto) 0.20 K/uL (0-0.5) 12/04/18 15:53 Baso # (Auto) 0.03 K/uL (0-0.2) 12/04/18 15:53 PT 24.0 Seconds (9.0-12.0) H 12/04/18 15:53 INR 2.5 (0.9-1.1) H 12/04/18 15:53 Sodium 141 mmol/L (136-145) 12/04/18 15:53 Potassium 4.8 mmol/L (3.5-5.1) 12/04/18 15:53 Chloride 107 mmol/L (98-107) 12/04/18 15:53 Carbon Dioxide 31 mmol/L (21-32) 12/04/18 15:53 Anion Gap 3.0 (3-11) 12/04/18 15:53 BUN 29 mg/dl (7-18) H 12/04/18 15:53 Creatinine 2.05 mg/dl (0.6-1.2) H 12/04/18 15:53 Est Cr Clr Drug Dosing 18.9 ml/min 12/04/18 15:53 Est GFR ( Amer) 26.8 12/04/18 15:53 Est GFR (Non-Af Amer) 23.1 12/04/18 15:53 BUN/Creatinine Ratio 14.0 (10-20) 12/04/18 15:53 Glucose 105 mg/dl (70-99) H 12/04/18 15:53 Calcium 8.8 mg/dl (8.5-10.1) 12/04/18 15:53 Total Bilirubin 0.3 mg/dl (0.2-1) 12/04/18 15:53 AST 18 U/L (15-37) 12/04/18 15:53 ALT 19 U/L (12-78) 12/04/18 15:53 Alkaline Phosphatase 109 U/L (45-117) 12/04/18 15:53 Troponin I < 0.015 ng/ml (0-0.045) 12/04/18 15:53 Troponin I Cancelled 12/04/18 15:53 Total Protein 7.4 gm/dl (6.4-8.2) 12/04/18 15:53 Albumin 3.4 gm/dl (3.4-5.0) 12/04/18 15:53 Globulin 4.0 gm/dl (2.5-4.0) 12/04/18 15:53 Albumin/Globulin Ratio 0.9 (0.9-2) 12/04/18 15:53 Lipase 67 U/L (73-393) L 12/04/18 15:53 Urine Color Yellow 12/05/18 00:50 Urine Appearance Clear (Clear) 12/05/18 00:50 Urine pH 5.5 (4.5-7.5) 12/05/18 00:50 Ur Specific [place] 1.015 (1.000-1.030) 12/05/18 00:50 Urine Protein Negative (Negative) 12/05/18 00:50 Urine Glucose (UA) Negative (Negative) 12/05/18 00:50 Urine Ketones Negative (Negative) 12/05/18 00:50 Urine Blood Negative (Negative) 12/05/18 00:50 Urine Nitrite Negative (Negative) 12/05/18 00:50 Urine Bilirubin Negative (Negative) 12/05/18 00:50 Urine Urobilinogen Negative (Negative) 12/05/18 00:50 Ur Leukocyte Esterase Negative (Negative) 12/05/18 00:50 Diagnostic Findings [place], [place] [phone] CT Scan Report Patient: SOFYA COX Date: 12/04/18 MR#: [id number]: [address] Acct ID:[id number]: [facility] Zip[facility] [place] [address] Age: 73Location: ED Sex: F Room/Bed: Att Phy: Diagnosis: FALL ONTO LEFT SIDE PAINFUL SHOULDER AND RIBS Diana Phy: Thang Lakhani MDService Date: 12/04/18 Fam Phy: Interpreting Phy: Thang Willson MD Admit Phy: Ordering Phy: Gee Eaton, DO cc: ~ CT abd pelvis wo con CLINICAL HISTORY: 73 years-old Female presenting with fall 2 days ago, left sided pain and the chest and abdomen, on Coumadin. TECHNIQUE: Multidetector CT of the abdomen and pelvis was performed without the use of intravenous contrast. IV contrast: None. One or more dose lowering techniques were used consistent with the principles of ALARA (as low as reasonably achievable), including automatic exposure control, mA or kV adjustment to individual patient size, and/or use of iterative reconstruction. COMPARISON: 12/16/2017. CT DOSE (mGy.cm): The estimated cumulative dose is 801.32. 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 Lung bases: Borderline enlargement of the heart. Coronary artery, aortic valve, and mitral annular calcification. No pericardial or pleural effusion. Deepa bronchovascular consolidation in the left lower lobe with dependent consolidation. Patchy groundglass predominantly peripheral infiltrates in the right middle and right lower lobes. Liver: Normal morphology. Normal density. Biliary: No gross intrahepatic biliary ductal dilatation allowing for noncontrast technique. Extra hepatic bile duct prominence measuring up to 11 mm in diameter without gross evidence of an obstructing radiodense calculus. Gallbladder contains gallstones. Pancreas: Moderate parenchymal atrophy. Spleen: Normal noncontrast appearance. Adrenal glands: Normal noncontrast appearance. Kidneys and ureters: Exophytic simple cyst suspected in the left kidney. Several additional cysts suspected bilaterally with an exophytic right upper pole cyst. Bilateral nephrolithiasis with a greater stone burden on the right. No hydronephrosis. Ureters nondilated. Bladder: The configuration of the bladder suggests pelvic ligamentous laxity. Bladder otherwise normal. Pelvic organs: Normal noncontrast appearance. Bowel: Moderate stool burden in the right colon. The appendix is normal. No bowel obstruction. Peritoneal cavity: No free fluid or intraperitoneal gas. Lymph nodes: No gross lymphadenopathy allowing for noncontrast technique. Vasculature: Atherosclerosis of the normal caliber abdominal aorta. Varices noted in the mons. Abdominal wall: Radiodense sutures in the ventral midline abdomen with slight diastases of the abdominis rectus. Musculoskeletal: Degenerative changes of the spine. Mildly displaced fracture of the lateral left sixth through eighth ribs. These are acute appearing. Chronic appearing fracture of the right transverse process of L3. The sacrum is intact. Intramedullary nail fixation in the left femur. Moderate compression deformity of L5 and severe compression deformity of L3. Mild compression deformity of T10 and moderate compression deformity of T8. This is new at T10. IMPRESSION: 1. Acute mildly displaced fractures of the left lateral sixth through eighth ribs. 2. New mild compression fracture at T10. 3. No acute intra-abdominal injury. 4. Cholelithiasis. 5. Chronic changes at the lung bases may suggest either chronic aspiration or congestive change. Electronically signed by: Thang Willson M.D. 12/04/2018 5:52 PM Dictated: 12/04/181743 Transcribed: 12/04/181743 [phone] Scan Report Patient: SOFYA COX Date: 12/04/18 MR#: [id number]: [address] Acct ID:[id number]: Date: [address] Zip: [place] [address] Age: 73Location: ED Sex: F Room/Bed: Att Phy: Diagnosis: FALL ONTO LEFT SIDE PAINFUL SHOULDER AND RIBS Diana Phy: Thang Lakhani MDService Date: 12/04/18 Fam Phy: Interpreting Phy: Thang Willson MD Admit Phy: Ordering Phy: Gee Eaton, DO cc: ~ CT chest wo con CLINICAL HISTORY: 73 years-old Female presenting with fall, left-sided pain, on Coumadin. TECHNIQUE: Multidetector CT imaging of the chest was performed without the use of intravenous contrast. IV contrast: None. One or more dose lowering techniques were used consistent with the principles of ALARA (as low as reasonably achievable), including automatic exposure control, mA or kV adjustment to individual patient size, and/or use of iterative reconstruction. COMPARISON: 06/03/2015. CT DOSE (mGy.cm): The estimated cumulative dose is 801.32 mGy.cm. 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 Soft tissues: Mild infiltration of the left lateral chest wall and subcutaneous tissue. Normal thyroid. Few prominent precarinal lymph nodes measuring up to 11 mm in the short axis. Evaluation of the mavis limited in the absence of intravenous contrast. Atherosclerosis of the aorta. Main pulmonary artery enlarged measuring 3.7 cm in diameter. Top normal cardiac size. Coronary artery, aortic valve, and mitral annular calcification. No pericardial or pleural effusion. Upper abdomen normal. Lungs and airways: No pneumothorax. Central airways patent. Pulmonary arteries are not significantly enlarged relative to adjacent bronchi. No interlobular septal thickening. Paraseptal and centrilobular apical predominant emphysema. Peribronchovascular consolidation volume loss in the left lower lobe. Subpleural/peripheral predominant tubular groundglass opacities in the right lower lobe with subtle bronchiectasis suggested. Subpleural reticulation also evident to a lesser degree in the upper lobes. Musculoskeletal: Degenerative changes of the spine. Acute mildly displaced and nondisplaced fractures of the left lateral sixth through eighth ribs. Possible nondisplaced fracture of the left lateral ninth rib. The fracture of the seventh rib is segmental. Mild compression deformity of T11. Moderate compression deformity of T9. The fracture of T11 is new from prior exam. IMPRESSION: 1. Acute mildly displaced and nondisplaced fractures of the left lateral sixth through eighth ribs. 2. Possible nondisplaced fracture of the left lateral ninth rib. 3. New mild compression fracture of T11. This was previously reported as T10 on the CT of abdomen and pelvis. Confusion as to the exact level may be a result of rudimentary ribs in the lower thoracic spine and potentially 6 lumbar vertebral body levels. 4. No parenchymal injury of the lungs. 5. Upper lobe dominant emphysema. 6. Mild fibrotic changes suggested at the lung bases. Differential considerations include chronic aspiration or less likely congestive change. Electronically signed by: Thang Willson M.D. 12/04/2018 6:01 PM Dictated: 12/04/18 175 Transcribed: 12/04/18 175 Code Status & VTE Plan Code Status Full code VTE Prophylaxis Plan VTE Prophylaxis will be ordered: Yes PG Care Time/CCT Total # of Minutes Spent Total Time Spent with Patient: Total time spent is greater than 50% in coordination of care (as documented) at patient's floor/unit and/or counseling patient: (1) Closed rib fracture Encounter type: initial encounter Laterality: unspecified laterality Rib fracture type: multiple ribs Qualified Code(s): S22.49XA - Multiple fractures of ribs, unspecified side, initial encounter for closed fracture (2) Thoracic compression fracture Encounter type: initial encounter Thoracic vertebra fracture level: unspecified thoracic vertebra Qualified Code(s): S22.000A - Wedge compression fracture of unspecified thoracic vertebra, initial encounter for closed fracture
[2018-12-05] MEDS: cefTRIAXone SODIUM 1,000 MG/50 ML BAG IV SCH ×2 (00:11→23:11)
[2018-12-05 01:26] LABS: Appearance Urine Clear (Clear); Bilirubin Urine Negative (Negative); Blood Urine Negative (Negative); Color Urine Yellow; Glucose Urine UA Negative (Negative); Ketones Urine Negative (Negative); Leukocyte Esterase Urine Negative (Negative); Nitrite Urine Negative (Negative); Protein Urine Negative (Negative); Specific Gravity Urine 1.015 (1.000-1.030); Urobilinogen Urine Negative (Negative); pH Urine 5.5 (4.5-7.5)
[2018-12-05] MEDS: DICLOFENAC SOD 1% GEL 100 GM TUBE EXT PRN ×2 (03:44→20:57)
[2018-12-05] MEDS: ALBUT/IPRATROP 3MG/0.5MG NEB 3 ML VIAL NEB SCH ×5 (03:55→19:33)
[2018-12-05] MEDS: HYDROCODONE/ACETAMOPHEN 5/325MG TAB PO PRN (04:21)
[2018-12-05 07:01] LABS: Basophils # (auto) 0.02 K/uL (0-0.2); Basophils % (auto) 0.3 %; Eosinophils # (auto) 0.08 K/uL (0-0.5); Eosinophils % (auto) 1.1 %; Hematocrit (blood only) 38.5 % (37-47); Hemoglobin 11.9 g/dL (12.0-16.0); Immature Granulocytes # (auto) 0.01 K/uL (0.00-0.02); Immature Granulocytes % (auto) 0.1 %; Lymphocytes # (auto) 1.97 K/uL (1.2-3.4); Lymphocytes % (auto) 26.3 %; Mean Corpuscular Hgb Conc 30.9 g/dL (32-36); Mean Corpuscular Volume 102.4 fL (80-100); Mean Platelet Volume 10.8 fL (7.4-10.4); Monocytes # (auto) 0.55 K/uL (0.11-0.59); Monocytes % (auto) 7.3 %; Neutrophils # (auto) 4.86 K/uL (1.4-6.5); Neutrophils % (auto) 64.9 %; Platelet Count 204 K/uL (130-400); RDW Coefficient of Variation 14.7 % (11.5-14.5); RDW Standard Deviation 55.3 fL (36.4-46.3); Red Blood Count 3.76 M/uL (4.2-5.4); White Blood Count 7.49 K/uL (4.8-10.8)
[2018-12-05] MEDS: BUDESONIDE 0.5 MG/2 ML VIAL (PULMICORT) NEB SCH ×2 (07:01→19:33)
[2018-12-05 07:18] LABS: INR 2.6 (0.9-1.1); Partial Thromboplastin Ratio 1.3; Partial Thromboplastin Time 33.9 Seconds (21.0-31.0)
[2018-12-05 07:35] LABS: Albumin Level 3.1 gm/dl (3.4-5.0); BUN Creatinine Ratio 13.3 (10-20); Creatinine Clr Calc Pharmacy 19.1 ml/min; Est GFR (African American) 27.8; Potassium 4.6 mmol/L (3.5-5.1)
[2018-12-05 07:38] LABS: Albumin Globulin Ratio 0.9 (0.9-2); Bilirubin,Total 0.5 mg/dl (0.2-1); Globulin 3.6 gm/dl (2.5-4.0); Total Protein 6.7 gm/dl (6.4-8.2)
--- NOTE | 2018-12-05 08:20 | Family Medicine Progress Note ---
Date of Service December 05, 2018 Assessment & Plan (1) Thoracic compression fracture: Left lateral mildly displaced 6-9th rib # and acute T10 vertebral compression # post mechanical fall at home on bkd osteopenia - Pain mx: IV or PO acetaminophen, Voltaren gel QID, lidocaine patch, gabapentin (home med), PO Percocet q6h, nasal calcitonin, heat pad. Kenneth q4h discontinued due to over sedation - PT/OT evals ordered - CM consulted - Continue Ca+ supplementation and denusomab once outpatient Aspiration pneumonia (hx of coughing with eating) vs. atelectasis (2/2 to resp splinting) As evidenced in lung bases on chest CT - Empiric abx: ceftriaxone and azithromycin - Supplemental O2 to maintain sats >92%, wean as tolerated - Continue albuterol and budesonide - COMPENSATION CONSULTING MANAGER consulted - Maintain aspiration precautions H/o DVT INR in acceptable range, no suggestive of bleeding on CT of chest, abdomen or pelvis associate with recent trauma. - Continue warfarin - Trend INR GERD - Continue pantoprazole (may be contributor to osteopenia) and ranitidine CKD Follows with Dr. Davis, creatinine w/in baseline range 1.7-2.39 - Avoid nephrotoxic meds - Monitor BMP HTN/HLD - Continue ASA, metoprolol, atorvastatin Hypothyroid - Continue levothyroxine VTE - Anticoagulated with warfarin as above FULL CODE (2) Closed rib fracture: (3) Pneumonia: (4) Chronic kidney disease: (5) Hypothyroidism (acquired): (6) Osteopenia: (7) Hyperlipidemia: (8) GERD (gastroesophageal reflux disease): Supervising Physician Co-Signing Physician Notes I personally examined the patient and verified all machado points of history and exam, discussed case, and agree with decision making with Dr Mathur. still a little somnolent from pain meds but far more alert than when first seen by dr mathur. notes taht pain still present but control is reasonable. breathing is reasonable. vitals noted nad breathing unlabored lungs diminished but no r/r/w good effort multiple rib fractures -pain control --> PT/OT --> dispo planning (so far pain control starting to be reasonable, continue current course) ?pneumonia - await speech eval - if aspirating then continue abx, if low risk on speech eval, findings may all be contusion and atelectasis, given the clinical context. DVT proph - warfarin otherwise as above Subjective Patient asleep but arousable. Questions require repetition as patient falls asleep. She states her pain is still present and rates it a 6/10, but states that this is tolerable compared to previously. She is not able to answer other questions. Review of Systems Review of Systems: Unobtainable due to reduced consciousness Physical Exam Constitutional: well developed, average body habitus, + altered mental status and + frail appearing; no acute distress Eyes: no eyelid abnormality and no scleral abnormality ENMT: external ear and nose normal, oropharynx normal Neck: normal visual inspection Respiratory: + cough (weak); no respiratory distress, does not use accessory muscles and no grunting Auscultation: + diminished lung sounds (diffusely) Cardiovascular: Rate/Rhythm: regular rate and regular rhythm Heart Sounds: normal S1 and normal S2 Vessels: normal peripheral pulses Extremities: no pedal edema Chest (Breasts): Additional Comments: Unable to assess as patient was somnolent Gastrointestinal (Abdomen): Inspection/Auscultation: abdomen normal to inspection and normal bowel sounds; abdomen not distended Percussion/Palpation: abdomen soft; no guarding and abdomen not rigid Musculoskeletal: Head/Neck/Chest: normocephalic, head atraumatic and neck supple Skin: Unable to assess as patient was somnolent Neurologic: + obtunded Motor/Sensory: + tremor (resting, bilateral hands) Results & Data Vital Signs (Past 12 Hours) Vital Signs Temp Pulse Pulse Resp BP BP Pulse Ox 12/05/18 07:01 87 14 96 12/05/18 06:35 37.3 C 90 18 105/72 100 12/05/18 04:50 99 H 118/59 L 97 12/05/18 03:55 77 18 88 L 12/05/18 03:44 36.9 C 97 H 22 92/59 L 100 12/04/18 23:54 82 12/04/18 23:38 36.9 C 82 24 103/68 94 12/04/18 22:18 36.7 C 79 16 135/69 92 Laboratory Results Abnormal lab results 12/04/18 12/04/18 12/04/18 Range/Units 15:53 15:53 15:53 RBC 3.95 L (4.2-5.4) M/uL Hgb (12.0-16.0) g/dL MCV 101.0 H (80-100) fL MCHC 31.8 L (32-36) g/dL RDW Std Deviation 54.4 H (36.4-46.3) fL RDW Coeff of Damien 14.7 H (11.5-14.5) % MPV 11.0 H (7.4-10.4) fL PT 24.0 H (9.0-12.0) Seconds INR 2.5 H (0.9-1.1) APTT (21.0-31.0) Seconds BUN 29 H (7-18) mg/dl Creatinine 2.05 H (0.6-1.2) mg/dl Glucose 105 H (70-99) mg/dl AST (15-37) U/L ALT (12-78) U/L Albumin (3.4-5.0) gm/dl Lipase 67 L (73-393) U/L 12/05/18 12/05/18 12/05/18 Range/Units 06:22 06:22 06:22 RBC 3.76 L (4.2-5.4) M/uL Hgb 11.9 L (12.0-16.0) g/dL MCV 102.4 H (80-100) fL MCHC 30.9 L (32-36) g/dL RDW Std Deviation 55.3 H (36.4-46.3) fL RDW Coeff of Damien 14.7 H (11.5-14.5) % MPV 10.8 H (7.4-10.4) fL PT 25.0 H (9.0-12.0) Seconds INR 2.6 H (0.9-1.1) APTT 33.9 H (21.0-31.0) Seconds BUN 26 H (7-18) mg/dl Creatinine 1.99 H (0.6-1.2) mg/dl Glucose 121 H (70-99) mg/dl AST 192 H (15-37) U/L ALT 98 H (12-78) U/L Albumin 3.1 L (3.4-5.0) gm/dl Lipase (73-393) U/L PG Care Time/CCT Total # of Minutes Spent Total Time Spent with Patient: Total time spent is greater than 50% in coordination of care (as documented) at patient's floor/unit and/or counseling patient: Resident Activity Tracking Resident Involvement: Resident Care Provided Care Provided: Adult Hospital Medicine (1) Closed rib fracture Encounter type: initial encounter Laterality: unspecified laterality Rib fracture type: multiple ribs Qualified Code(s): S22.49XA - Multiple fractures of ribs, unspecified side, initial encounter for closed fracture (2) Thoracic compression fracture Encounter type: initial encounter Thoracic vertebra fracture level: unspecified thoracic vertebra Qualified Code(s): S22.000A - Wedge compression fracture of unspecified thoracic vertebra, initial encounter for closed fracture
[2018-12-05] MEDS: LEVOTHYROXINE SODIUM 88 MCG TABLET PO SCH (08:38)
[2018-12-05] MEDS: CALCITONIN SALMON NA 200 IU/AC 3.7 ML BTL SCH (08:38)
[2018-12-05] MEDS: POTASSIUM CITRATE 10 MEQ TAB PO SCH (08:39)
[2018-12-05] MEDS: ASPIRIN 81 MG ECTAB PO SCH (08:40)
[2018-12-05] MEDS: PANTOprazole 40 MG TAB PO SCH (08:40)
[2018-12-05] MEDS: METOPROLOL SUCC 50MG EXT REL TAB PO SCH (08:40)
[2018-12-05] MEDS: guaiFENesin 600 MG TABCR PO SCH ×2 (08:41→20:51)
[2018-12-05] MEDS ORDERED: OXYCODONE/ACETAMINOPHEN 5mg/325mg TAB PO PRN (10:02)
[2018-12-05] MEDS: LIDOCAINE 5% 1 PATCH TD SCH (17:49)
[2018-12-05] MEDS: GABAPENTIN 300 MG CAP PO SCH (20:51)
[2018-12-05] MEDS: CALCIUM 600MG + VIT D 400 IU TAB PO SCH (20:52)
[2018-12-05] MEDS: WARFARIN SOD 2.5 MG TAB PO SCH (20:52)
[2018-12-05] MEDS: ATORVASTATIN 40 MG TAB PO SCH (20:54)
--- NOTE | 2018-12-06 05:26 | CT Scan Report ---
CT head/brain wo con CLINICAL HISTORY: 73 years-old Female presenting with CHANGE IN MENTAL STATUS. TECHNIQUE: Multidetector CT imaging of the head was performed without the use of intravenous contrast . IV contrast: None. One or more dose lowering techniques were used consistent with the principles of ALARA (as low as reasonably achievable), including automatic exposure control, mA or kV adjustment t o individual patient size, and/or use of iterative reconstruction. COMPARISON: 06/15/2016. CT DOSE (mGy.cm): The estimated cumulative dose is 537.48 mGy.cm. FINDINGS: Switching Operator topogram: The patient is edentulous. Ventricles and sulci normal in size. No hemorrhage. Periventricular and subcortical white matter hypo attenuation, nonspecific but likely indicative of chronic small vessel ischemic change. No acute terr itorial infarct. No mass effect or midline shift. No extra-axial fluid collection. Paranasal sinuses and mastoid air cells clear. Calvarium intact. Postsurgical changes noted in the preauricular region on the right. IMPRESSION: 1. Chronic small vessel ischemic change. No acute intracranial abnormality. Electronically signed by: Thang Willson M.D. 12/06/2018 5:25 AM
[2018-12-06] MEDS: LEVOTHYROXINE SODIUM 88 MCG TABLET PO SCH (05:32)
[2018-12-06] MEDS ORDERED: OPTIRAY 320 125ml IV PRN (05:51)
--- NOTE | 2018-12-06 05:59 | Progress Note ---
Date of Service December 06, 2018 Assessment & Plan (1) Stroke-like symptoms: 73 year old female acute confusion and sedation throughout the afternoon believed to be 2/2 narcotics -Patient woke up this evening with slurred speech, left-sided facial droop, confusion and tremor PE; Left sided facial droop Intact strength and sensation of Upper and Lower extremity Plan; -Not a candidate for Tpa. Symptoms >4 hours, INR>1.7 -Discussed with the attending physician CT CTA head/neck NPO Results & Data Vital Signs (Past 12 Hours) Vital Signs Temp Pulse Resp BP Pulse Ox 12/06/18 05:12 36.7 C 74 18 135/74 99 12/05/18 23:44 36.9 C 76 18 119/67 98 12/05/18 19:36 72 14 97 PG Care Time/CCT Total # of Minutes Spent Total Time Spent with Patient: Total time spent is greater than 50% in coordination of care (as documented) at patient's floor/unit and/or counseling patient:
--- NOTE | 2018-12-06 06:17 | CT Scan Report ---
CT angio head w con CLINICAL HISTORY: 73 years-old Female presenting with dysarthria, left facial droop, confusion. TECHNIQUE: Multidetector CT angiography of the head was performed after the administration of intrave nous contrast. 3-D volumetric and/or maximum intensity projection (MIP) images were subsequently kelly nstructed for review. IV contrast: 120 mL of Optiray 320. One or more dose lowering techniques were u sed consistent with the principles of ALARA (as low as reasonably achievable), including automatic ex posure control, mA or kV adjustment to individual patient size, and/or use of iterative reconstructio n. COMPARISON: Noncontrast CT head from earlier the same day. CT DOSE (mGy.cm): The estimated cumulative dose is 434.63. FINDINGS: Director Volunteer Services topogram: The patient is edentulous. Low lung volumes. Right basilar opacity. Anterior circulation: Atherosclerosis of the cavernous segments of the internal carotid arteries. Int racranial portions of the internal carotid arteries patent to the level of the termini. Anterior cere bral arteries patent. Middle cerebral arteries patent. Anterior communicating artery patent. Posterior circulation: Codominant vertebral arteries. Intradural portions of the vertebral arteries p atent. Posterior inferior cerebellar arteries patent. Basilar artery patent. Anterior inferior cerebe llar arteries poorly visualized. Superior cerebellar arteries patent. Posterior cerebral arteries pat ent. Posterior communicating arteries patent. Dural venous sinuses: Patent. Other: Allowing for the phase of contrast, brain parenchyma within normal limits. Calvarium intact. IMPRESSION: 1. No evidence of aneurysm, focal vessel occlusion, or significant stenosis of the intracranial susy mika. 2. Right basilar opacity setting of low lung volumes, likely atelectasis. Electronically signed by: Thang Willson M.D. 12/06/2018 6:15 AM
--- NOTE | 2018-12-06 06:21 | CT Scan Report ---
CT angio neck with con CLINICAL HISTORY: 73 years-old Female presenting with dysarthria, left facial droop, confusion. TECHNIQUE: Multidetector CT angiography of the neck was performed after the administration of intrave nous contrast. 3-D volumetric and/or maximum intensity projection (MIP) images were subsequently kelly nstructed for review. IV contrast: 120 mL of Optiray 320. One or more dose lowering techniques were u sed consistent with the principles of ALARA (as low as reasonably achievable), including automatic ex posure control, mA or kV adjustment to individual patient size, and/or use of iterative reconstructio n. Stenosis measurements were based on NASCET-like criteria (distal lumen diameter as the denominator for stenosis measurement). COMPARISON: Carotid Doppler ultrasound from 2013. CT DOSE (mGy.cm): The estimated cumulative dose is 434.63 mGy.cm. FINDINGS: Irrigation Specialist topogram: Low lung volumes with right basilar opacity. Aortic arch: Atherosclerosis of the three-vessel aortic arch with patent origins of the branch vessel s. Innominate artery: Patent. Right subclavian artery: Atherosclerosis results in luminal irregularity about significant stenosis. Right common carotid artery: Patent. Right internal and external carotid arteries: Calcified atherosclerotic plaque at the bifurcation wit h resultant narrowing of the proximal right internal carotid artery less than 50%. The mid to distal ICA is widely patent. ECA widely patent. Left common carotid artery: Patent. Left internal and external carotid arteries: Calcified atherosclerotic plaque at the bifurcation. Res ultant narrowing of the proximal ICA less than 50%. Mid to distal ICA widely patent. ECA widely paten t. Left subclavian artery: Patent. Vertebral arteries: Codominant vertebral arteries. Atherosclerotic plaque at the origin of the left v ertebral artery with approximately 25% stenosis. Tortuosity of the proximal course of the left verteb ral artery. Right vertebral artery widely patent at its origin. Remainder of the courses of the verte bral arteries without stenosis. Other: Limited intracranial evaluation within normal limits. Soft tissues of the neck normal allowing for the phase of contrast. Degenerative changes of the cervical spine. Central lobular and parasepta l emphysema. IMPRESSION: 1. Mild stenoses at the proximal internal carotid arteries bilaterally (less than 50%). Minimal sten osis of the origin of the left vertebral artery (approximately 25%). No significant stenosis. No foca l vessel occlusion or dissection. 2. Emphysema. Electronically signed by: Thang Willson M.D. 12/06/2018 6:20 AM
[2018-12-06] MEDS: ALBUT/IPRATROP 3MG/0.5MG NEB 3 ML VIAL NEB SCH ×4 (07:15→19:08)
[2018-12-06] MEDS: BUDESONIDE 0.5 MG/2 ML VIAL (PULMICORT) NEB SCH ×2 (07:15→19:08)
--- NOTE | 2018-12-06 07:38 | Family Medicine Progress Note ---
Date of Service December 06, 2018 Assessment & Plan (1) Thoracic compression fracture: 73F presenting presenting to the ED for left sided rib pain two days after a mechanical fall onto her bathtub. Thoracic compression fracture Left lateral mildly displaced 6-9th rib fracture and acute T11 vertebral compression fracture post mechanical fall at home on a background of osteopenia. PT/OT evals ordered - recommend SNF as of 12/06/18 CM - [facility] Referral placement. Focusing on pain control then placement. For pain: 500mg PO acetaminophen Q4 SCHEDULED, Voltaren gel QID, lidocaine patch, gabapentin (home med), Ultram PRN, PO Percocet q6h PRN. 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 CT imaging so far negative. MRI negative. Neuro consulted: c/w ASA and Coumadin. HBA1C 6.0 Lipids WNL. Elevated LFTs AST spike to 192 and ALT spiked to 98, normal on admission, unknown etiology. CT Abdo reviewed, no significant GB or liver pathology. will continue to monitor. Aspiration pneumonia (hx of coughing with eating) vs. atelectasis (2/2 to resp splinting) As evidenced in lung bases on chest CT speech recommend bite sized diet + aspiration precautions. c/w ceftriaxone and azithromycin H/o DVT INR 3.3, holding today's coumadin, no suggestive of bleeding on CT of chest, abdomen or pelvis associate with recent trauma. Trend INR GERD Continue pantoprazole (may be contributor to osteopenia) and ranitidine CKD Follows with Dr. Davis, creatinine w/in baseline range 1.7-2.39 Creatinine today 1.6, back at baseline. HTN/HLD Continue ASA, metoprolol, atorvastatin Hypothyroid Continue levothyroxine VTE Anticoagulated with warfarin as above Dispo: Med Surg, placement to [facility] likely on Saturday. FULL CODE (2) Closed rib fracture: (3) Pneumonia: (4) Chronic kidney disease: (5) Hypothyroidism (acquired): (6) Osteopenia: (7) Hyperlipidemia: (8) GERD (gastroesophageal reflux disease): (2) Stroke-like symptoms: (3) GERD (gastroesophageal reflux disease): (4) Chronic kidney disease: (5) Hypothyroidism (acquired): (6) Pneumonia: (7) Closed rib fracture: Supervising Physician Co-Signing Physician Notes I personally examined the patient and verified all machado points of history and exam, discussed case, and agree with decision making with Dr Bates. Pain still present, but tolerable. Breathing okay. Facial droop improved. vitals noted nad breathing unlabored lungs diminished but no r/r/w good effort. No focal neuro deficits now. Dr. Bates present with me and notes much improved neuro exam from this morning. TIA� �Most likely small vessel disease in the brain. Check A1c and lipids, follow blood pressure, continue antiplatelets. Cardioembolic work-up for completeness, but this will be of low interventional yield given that she is already on anticoagulation. multiple rib fractures -pain control --> PT/OT --> dispo planning appears to be working towards [facility] SNF/rehab emphasis. ?pneumonia -continue antibiotics given concern on possible aspiration. DVT proph - warfarin otherwise as above Subjective Pt was seen and examined at bedside. Overnight pt had a left sided facial droop. CTA head and neck was done without any acute abnormalities. MRI was ordered. Upon my exam pt continued to have a left facial droop, however the facial droop had resolved on my recheck of the patient after 10 minutes. Pt reports continued rib pain. She is likely a candidate to placement. Reviewed with patient the [facility] referral was made. ROS: No chest pain, no SOB, no dyspnea on exertion, no palpitations, no fevers, no chills, no nausea, no vomiting, no diarrhea, no dysuria, no rash. Physical Exam Constitutional: average body habitus, + altered mental status and + frail appearing; no acute distress Eyes: no eyelid abnormality and no scleral abnormality ENMT: external ear and nose normal, oropharynx normal Neck: normal visual inspection Respiratory: no respiratory distress, does not use accessory muscles and no grunting Auscultation: + diminished lung sounds (diffusely) Cardiovascular: Rate/Rhythm: regular rate and regular rhythm Heart Sounds: normal S1 and normal S2 Vessels: normal peripheral pulses Extremities: no pedal edema Gastrointestinal (Abdomen): Inspection/Auscultation: abdomen normal to inspection and normal bowel sounds; abdomen not distended Percussion/Palpation: abdomen soft; no guarding and abdomen not rigid Musculoskeletal: Head/Neck/Chest: normocephalic, head atraumatic and neck supple Neurologic: patellar DTR's 2+ bilat, sensation intact and PERRL, EOMI, accommodation nl, no face palsy, no dysarthria (left facial palsy on my exam, resolved on recheck) Speech / Cognition: normal speech Motor/Sensory: + tremor (resting, bilateral hands) Cranial Nerves: EOM intact bilaterally Psychiatric: A+Ox3, euthymic affect Results & Data Vital Signs (Past 12 Hours) Vital Signs Temp Pulse Resp BP Pulse Ox 12/06/18 05:12 36.7 C 74 18 135/74 99 12/06/18 01:38 67 119/69 12/06/18 01:00 71 18 112/77 97 12/05/18 23:44 36.9 C 76 18 119/67 98 PG Care Time/CCT Total # of Minutes Spent Total Time Spent with Patient: Total time spent is greater than 50% in coordination of care (as documented) at patient's floor/unit and/or counseling patient: Resident Activity Tracking Resident Involvement: Resident Care Provided Care Provided: Adult Hospital Medicine (1) Closed rib fracture Encounter type: initial encounter Laterality: unspecified laterality Rib fracture type: multiple ribs Qualified Code(s): S22.49XA - Multiple fractures of ribs, unspecified side, initial encounter for closed fracture (2) Thoracic compression fracture Encounter type: initial encounter Thoracic vertebra fracture level: unspecified thoracic vertebra Qualified Code(s): S22.000A - Wedge compression fracture of unspecified thoracic vertebra, initial encounter for closed fracture
[2018-12-06] MEDS: DICLOFENAC SOD 1% GEL 100 GM TUBE EXT PRN ×3 (07:56→20:18)
[2018-12-06] MEDS: LIDOCAINE 5% 1 PATCH TD SCH (07:56)
[2018-12-06] MEDS: CALCITONIN SALMON NA 200 IU/AC 3.7 ML BTL SCH (07:56)
[2018-12-06 09:16] LABS: Basophils # (auto) 0.02 K/uL (0-0.2); Basophils % (auto) 0.3 %; Eosinophils # (auto) 0.04 K/uL (0-0.5); Eosinophils % (auto) 0.5 %; Hematocrit (blood only) 37.8 % (37-47); Hemoglobin 11.9 g/dL (12.0-16.0); Immature Granulocytes # (auto) 0.02 K/uL (0.00-0.02); Immature Granulocytes % (auto) 0.3 %; Lymphocytes % (auto) 19.3 %; Mean Corpuscular Hgb Conc 31.5 g/dL (32-36); Mean Corpuscular Volume 101.6 fL (80-100); Mean Platelet Volume 10.7 fL (7.4-10.4); Monocytes % (auto) 5.1 %; Neutrophils # (auto) 5.81 K/uL (1.4-6.5); Neutrophils % (auto) 74.5 %; Platelet Count 182 K/uL (130-400); RDW Coefficient of Variation 14.5 % (11.5-14.5); RDW Standard Deviation 54.4 fL (36.4-46.3); Red Blood Count 3.72 M/uL (4.2-5.4); White Blood Count 7.79 K/uL (4.8-10.8)
[2018-12-06 09:26] LABS: INR 3.3 (0.9-1.1); Prothrombin Time 31.1 Seconds (9.0-12.0)
[2018-12-06] MEDS: POTASSIUM CITRATE 10 MEQ TAB PO SCH (09:36)
[2018-12-06] MEDS: METOPROLOL SUCC 50MG EXT REL TAB PO SCH (09:36)
[2018-12-06] MEDS: PANTOprazole 40 MG TAB PO SCH (09:37)
[2018-12-06] MEDS: guaiFENesin 600 MG TABCR PO SCH ×2 (09:37→20:16)
[2018-12-06] MEDS: ASPIRIN 81 MG ECTAB PO SCH (09:37)
[2018-12-06 09:38] LABS: BUN Creatinine Ratio 13.2 (10-20); Calcium 8.5 mg/dl (8.5-10.1); Creatinine Clr Calc Pharmacy 23.6 ml/min; Est GFR (African American) 35.9
[2018-12-06 09:53] LABS: Chol HDL Ratio 2; Cholesterol 107 mg/dl (0-200); HDL Cholesterol 62 mg/dl; LDL Cholesterol Calculated 31 mg/dl; Triglycerides 68 mg/dl (0-150); VLDL Cholesterol 14 mg/dl
--- NOTE | 2018-12-06 10:01 | Neurology Consultation ---
Date of Consultation December 06, 2018 Assessment & Plan (1) Stroke-like symptoms: I agree with the assessment of a possible stroke in this patient as she does have some mild focality on her neurological examination including a mild left facial droop and loss of dexterity of the left hand. She does not have a gross hemiparesis, however. She also appears to have some mild lethargy and associated cognitive slowing with an element of slightly dysarthric speech. Although her symptoms could relate to chronic cerebrovascular disease and administration of morphine sulfate IV in the emergency department in the context of chronic kidney disease with perhaps impaired drug clearance. I agree with obtaining a brain MRI to further exclude a possible small acute stroke. If patient's MRI reveals findings suggestive of an acute infarct would recommend obtaining an echocardiogram with bubble study. Otherwise, continue with daily low-dose aspirin. Continue with warfarin which is prescribed for her history of DVT. Would avoid narcotic analgesics if possible in this patient. Agree with PT/OT/speech therapy evaluations. Please contact me if I may be of further assistance. History of Present Illness Reason for Consultation: Facial droop, possible stroke overnight Requesting Physician: Luis Miguel Bates MD Attending Physician: Gee Oscar DO History of Present Illness The patient is a 73-year-old female with a chief complaint of confusion and left facial droop that was noted by nursing staff overnight, upon attempting to arouse the patient at around 1 in the morning. She was admitted to the [facility] on December 04 complaining of left-sided rib pain after a slip and fall that occurred approximately 2 days prior. She was admitted with several rib fractures as well as a suspected thoracic fracture. Although she had received narcotic analgesics there was some concern for possible stroke and a CT of the head was obtained last night which revealed chronic small vessel ischemic disease and was otherwise negative for an obvious acute process. A follow-up CT angiogram of the head and neck were also completed which were generally unremarkable revealing only mild carotid and vertebral atherosclerotic disease. The patient is prescribed warfarin due to a history of DVT. Her INR has been therapeutic. Her blood pressure has been normal. This morning, the patient does seem mildly confused and is somewhat slow to answer questions. She does complain of a low-grade headache, but otherwise denies any specific or focal neurological symptoms. She denies problems with her vision or obvious weakness or sensory loss of the limbs. Her speech is perhaps slightly dysarthric but she seems unaware of this issue. Nursing has been holding p.o. intake for the time being. A brain MRI has been ordered, but remains pending at this time. Patient's past medical history is notable for chronic kidney disease, hyperlipidemia, hypothyroidism, and lymphoma. These issues have been stable. Allergies Allergy/AdvReac Type Severity Reaction Status Date / Time nitrofurantoin Allergy Intermediate HIVES,ITCHI Verified 12/04/18 15:06 NG mivacurium Allergy Unknown HIVES Verified 12/04/18 15:06 Home Medications Home Medications Medication Instructions Recorded Confirmed Type aspirin 81 mg tablet,delayed 81 mg PO QAM tab 06/06/18 12/04/18 History release atorvastatin 80 mg tablet 80 mg PO HS tab 06/06/18 12/04/18 History calcium carbonate 500 mg (1,250 1 tab PO HS tab 06/06/18 12/04/18 History mg)-vitamin D3 200 unit tablet denosumab 60 mg/mL subcutaneous See Rx Instructions SQ .COMPLEX ml 06/06/18 12/04/18 History syringe fluticasone propionate 50 1 sprays INTNAS QAM PRN gm 06/06/18 12/04/18 History mcg/actuation nasal spray,suspension gabapentin 300 mg capsule 300 mg PO HS cap 06/06/18 12/04/18 History levothyroxine 88 mcg capsule 88 mcg PO QAM cap 06/06/18 12/04/18 History loratadine 10 mg tablet 10 mg PO DAILY PRN 06/06/18 12/04/18 History metoprolol succinate ER 50 mg 50 mg PO QAM ea 06/06/18 12/04/18 History capsule sprinkle, ext. release 24 hr omeprazole 40 mg capsule,delayed 40 mg PO QAM cap 06/06/18 12/04/18 History release polyethylene glycol 3350 17 17 gm PO QAM PRN gm 06/06/18 12/04/18 History gram/dose oral powder potassium citrate ER 15 mEq (1,620 15 meq PO QAM tab 06/06/18 12/04/18 History mg) tablet,extended release ranitidine 300 mg capsule 300 mg PO HS cap 06/06/18 12/04/18 History warfarin 2.5 mg tablet 2.5 mg PO HS 11/03/18 12/04/18 History acetaminophen [Tylenol Arthritis 650 mg PO Q12H PRN 12/04/18 12/04/18 History Pain] Patient History Medical History GERD (gastroesophageal reflux disease) Chronic kidney disease Hypothyroidism (acquired) Compression fracture of lumbar vertebra (Chronic) Thyroid disease (Chronic) Osteopenia (Chronic 11/29/12) Back pain (Acute) DVT (deep venous thrombosis) (Chronic) Hyperlipidemia (Chronic) Kidney stones (Chronic) Lymphoma (Chronic) Hematuria (Acute) Vomiting (Acute) Dehydration (Acute) Hematuria (Acute) Vomiting (Acute) Back pain (Acute) Back pain (Acute) RAD (reactive airway disease) with wheezing (Acute) Bronchitis (Acute) Sinusitis (Acute) Cellulitis Renal insufficiency (Acute) Chronic deep vein thrombosis of left lower extremity (Acute) Resistance to antibiotic UTI (urinary tract infection) GI bleed Troponin level elevated Constipation (Acute) Surgical History History of back surgery Family History Other Family history non-contributory Social History Preferred Language: Icelandic Communication Ability: Effective 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 Beliefs That Will Affect Care: None Current Living Situation: Alone Other Information That Helps Us Care for You: No Feels Safe at Home: Yes Safety Concerns: Feels Safe At This Time Smoking Status: Light tobacco smoker Tobacco Type: cigarettes Cigarettes Per Day: 2-3 Do You Dip or Chew Tobacco: No Second Hand Exposure: No Tobacco Cessation Education Requested by Patient: No (refused) Hx Alcohol Use: No Hx Substance Use: No Review of Systems Constitutional: no fever and no chills Eyes: no blind spots and no diplopia Ear, Nose, Mouth, Throat: no hearing loss Respiratory: + dyspnea Cardiovascular: no chest pain and no palpitations Gastrointestinal: no nausea and no vomiting Genitourinary: no dysuria Musculoskeletal: Patient complains of left-sided rib pain Integumentary: no rash and no lesions Neurologic: as per Subjective / HPI; no localized weakness and no loss of sensation Psychiatric: no depression and no anxiety Hematologic / Lymphatic: + easy bruising; no easy bleeding Physical Exam Physical Exam: The patient is a well-developed, well-nourished elderly female. She is slightly lethargic and somewhat slow to answer questions but is otherwise fully oriented. Recent and remote memory intact. Attention is slightly impaired as is concentration. She is able to name objects and repeat phrases although speech is somewhat slow, with mildly reduced output. Patient exhibits an age-appropriate fund of knowledge and normal comprehension of vocabulary. Visual rees full to confrontation. Visual acuity normal. Pupils equal round reactive to light and accommodation. Eye movements normal. Facial sensation intact. There is perhaps slight flattening of the left nasolabial fold. Hearing intact. Palate elevates to midline. Shoulder shrug intact. Tongue protrudes to midline. Sensation intact to all modalities in all 4 limbs. Deep tendon reflexes are intact and symmetrical for the arms and legs bilaterally. Plantar responses upgoing bilaterally. Patient exhibits mild dysm etria with [id number] on the left, but otherwise no dysmetria phebhe-ry-vrst on the right or difficulty with [id number] bilaterally. No dysdiadochokinesia. Patient exhibits slight impairment of fine finger movements on the left. Ophthalmoscopic examination reveals normal-appearing optic disks and posterior segments. No papilledema or hemorrhages. Carotid pulses normal bilaterally, there is a carotid bruit on the left auscultation. There is a systolic murmur over the right sternal border as well. Gait and station not tested due to safety concerns. Muscle strength is normal for all 4 limbs. Patient does not have an obvious hemiparesis. Muscle tone normal throughout. No atrophy. No abnormal movements observed. Results & Data Vital Signs (Past 12 Hours) Vital Signs Temp Pulse Resp BP Pulse Ox 12/06/18 08:12 75 21 117/71 100 12/06/18 07:15 79 18 96 12/06/18 05:12 36.7 C 74 18 135/74 99 12/06/18 01:38 67 119/69 12/06/18 01:00 71 18 112/77 97 12/05/18 23:44 36.9 C 76 18 119/67 98 Laboratory Results Recent labs reviewed. WBC 7.79, hemoglobin 11.9, platelet count 182, INR 3.3 this morning, sodium 137, potassium 5.0, BUN 21, creatinine 1.61, glucose 93, calcium 8.5, lipid panel within normal limits Diagnostic Findings A CT of the head completed overnight reveals chronic small vessel ischemic change. No hemorrhage or obvious acute process evident. I reviewed the images as well as the radiologist interpretation of this test and agree. A CTA of the head was negative for stenosis, aneurysm, or significant vascular abnormality. A CTA of the neck revealed mild stenosis at the proximal internal carotid arteries bilaterally and a minimal stenosis at the origin of the left vertebral artery. No hemodynamically significant stenosis, occlusion, or dissection. Electrocardiogram completed December 04, 2018 revealed a sinus rhythm with occasional PVCs, 76 bpm.
[2018-12-06 10:39] LABS: Estimated Average Glucose 126 mg/dl
[2018-12-06] MEDS ORDERED: TRAMADOL HCL 50 MG TABLET PO PRN (11:39)
--- NOTE | 2018-12-06 11:48 | Magnetic Resonance Report ---
MR brain wo con CLINICAL HISTORY: 73 years-old Female presenting with dysarthria, left facial droop, confusion, fall. TECHNIQUE: Multisequence, multiplanar MR imaging of the brain was performed without the use of intrav enous contrast. IV contrast: None. COMPARISON: 12/08/2012. FINDINGS: Localizer images: Unremarkable. Normal midline sagittal structures. Proportional ventricular and sulcal prominence, likely age-relate d parenchymal volume loss. No restricted diffusion or hemorrhage. Periventricular and subcortical whi te matter T2/FLAIR hyperintensity, nonspecific but likely indicative of chronic small vessel ischemic change. No mass effect or midline shift. No extra-axial fluid collection. T2 skull base flow voids preserved. Bone marrow signal intensity within the calvarium within normal limits. Bilateral wilton lenses are a bsent. IMPRESSION: 1. Chronic small vessel ischemic change. No acute intracranial abnormality. Electronically signed by: Thang Willson M.D. 12/06/2018 11:46 AM
[2018-12-06 12:14] LABS: Alanine Aminotransferase 87 U/L (12-78); Albumin Level 3.1 gm/dl (3.4-5.0); Alkaline Phosphatase 134 U/L (45-117); Aspartate Aminotransferase 82 U/L (15-37); Bilirubin Direct < 0.1 mg/dl (0-0.2); Bilirubin,Total 0.3 mg/dl (0.2-1); Total Protein 7.1 gm/dl (6.4-8.2)
[2018-12-06] MEDS: ACETAMINOPHEN 500 MG TAB PO SCH ×3 (12:53→20:15)
[2018-12-06] MEDS: CALCIUM 600MG + VIT D 400 IU TAB PO SCH (20:15)
[2018-12-06] MEDS: ATORVASTATIN 40 MG TAB PO SCH (20:15)
[2018-12-06] MEDS: GABAPENTIN 300 MG CAP PO SCH (20:16)
[2018-12-06] MEDS: cefTRIAXone SODIUM 1,000 MG/50 ML BAG IV SCH (23:19)
[2018-12-07] MEDS: ACETAMINOPHEN 500 MG TAB PO SCH ×6 (03:34→20:06)
[2018-12-07] MEDS: LEVOTHYROXINE SODIUM 88 MCG TABLET PO SCH (05:56)
[2018-12-07 06:48] LABS: Basophils # (auto) 0.02 K/uL (0-0.2); Basophils % (auto) 0.3 %; Eosinophils # (auto) 0.29 K/uL (0-0.5); Hematocrit (blood only) 33.7 % (37-47); Hemoglobin 10.6 g/dL (12.0-16.0); Immature Granulocytes # (auto) 0.02 K/uL (0.00-0.02); Immature Granulocytes % (auto) 0.3 %; Lymphocytes # (auto) 2.16 K/uL (1.2-3.4); Lymphocytes % (auto) 29.8 %; Mean Corpuscular Hgb Conc 31.5 g/dL (32-36); Mean Corpuscular Volume 100.6 fL (80-100); Mean Platelet Volume 10.9 fL (7.4-10.4); Monocytes % (auto) 8.3 %; Neutrophils # (auto) 4.15 K/uL (1.4-6.5); Neutrophils % (auto) 57.3 %; Platelet Count 185 K/uL (130-400); RDW Coefficient of Variation 14.7 % (11.5-14.5); RDW Standard Deviation 54.1 fL (36.4-46.3); Red Blood Count 3.35 M/uL (4.2-5.4); White Blood Count 7.24 K/uL (4.8-10.8)
[2018-12-07 06:56] LABS: INR 3.1 (0.9-1.1); Prothrombin Time 29.1 Seconds (9.0-12.0)
[2018-12-07] MEDS: ALBUT/IPRATROP 3MG/0.5MG NEB 3 ML VIAL NEB SCH ×4 (07:15→19:20)
[2018-12-07] MEDS: BUDESONIDE 0.5 MG/2 ML VIAL (PULMICORT) NEB SCH ×2 (07:15→19:20)
[2018-12-07 07:25] LABS: Albumin Level 2.8 gm/dl (3.4-5.0); BUN Creatinine Ratio 16.3 (10-20); Calcium 7.8 mg/dl (8.5-10.1); Creatinine Clr Calc Pharmacy 15.7 ml/min; Potassium 4.3 mmol/L (3.5-5.1)
[2018-12-07 07:28] LABS: Albumin Globulin Ratio 0.8 (0.9-2); Bilirubin,Total 0.4 mg/dl (0.2-1); Globulin 3.4 gm/dl (2.5-4.0); Total Protein 6.2 gm/dl (6.4-8.2)
[2018-12-07] MEDS ORDERED: SODIUM CHLORIDE 0.9% 1000ML 1,000 ML IV SCH (08:15)
[2018-12-07] MEDS: DICLOFENAC SOD 1% GEL 100 GM TUBE EXT PRN ×2 (08:27→20:08)
[2018-12-07] MEDS: guaiFENesin 600 MG TABCR PO SCH ×2 (08:35→20:07)
[2018-12-07] MEDS: METOPROLOL SUCC 50MG EXT REL TAB PO SCH (08:35)
[2018-12-07] MEDS: CALCITONIN SALMON NA 200 IU/AC 3.7 ML BTL SCH (08:36)
[2018-12-07] MEDS: PANTOprazole 40 MG TAB PO SCH (08:36)
[2018-12-07] MEDS: ASPIRIN 81 MG ECTAB PO SCH (08:36)
[2018-12-07] MEDS: POTASSIUM CITRATE 10 MEQ TAB PO SCH (08:36)
[2018-12-07] MEDS: LIDOCAINE 5% 1 PATCH TD SCH (08:37)
--- NOTE | 2018-12-07 09:59 | Family Medicine Progress Note ---
Date of Service December 07, 2018 Assessment & Plan (1) Thoracic compression fracture: 73F presenting presenting to the ED for left sided rib pain two days after a mechanical fall onto her bathtub. Also being treated for a pneumonia. Morning of 12/06/18 pt developed L sided facial droop which resolved within 5 hrs - dx of TIA, no med changes. We are awaiting placement to SNF and video swallow test. Thoracic compression fracture s/p fall Left lateral mildly displaced 6-9th rib fracture and acute T11 vertebral compression fracture post mechanical fall at home on a background of osteopenia. PT/OT evals ordered - recommend SNF as of 12/06/18 Focusing on pain control then placement. For pain: 500mg PO acetaminophen Q4 SCHEDULED, Voltaren gel QID, lidocaine patch, gabapentin (home med), Ultram PRN, PO Percocet q6h PRN. Continue Ca+ supplementation and denusomab once outpatient. Aspiration pneumonia (hx of coughing with eating) vs. atelectasis (2/2 to resp splinting) As evidenced in lung bases on chest CT speech recommend bite sized diet + aspiration precautions. Video swallow on Saturday. Albuterol Q4H scheduled. Budesonide BID Scheduled. c/w ceftriaxone and azithromycin, for DC consider Aspiration vs CAP coverage depending on video swallow test. TIA morning 12/06/18 (resolved) Left sided facial droop was the presenting symptom noticed by the overnight nurse on AM of 12/06/18. CT imaging negative. MRI negative. HBA1C 6.0 Lipids WNL. Neuro consulted: c/w ASA, Lipitor and Coumadin. LFT spike, unknown etiology, improving LFT normal on admission, AST spike to 192 and ALT spiked to 98 on hospital Day #1, unknown etiology, pt did not any significant Tylenol doses prior to the spike. CT Abdo reviewed, no significant GB or liver pathology. will continue to monitor especially in the setting of SCHEDULED tylenol. H/o DVT on Coumadin INR 3.1, no suggestive of bleeding on CT of chest, abdomen or pelvis associate with recent trauma. c/w Coumadin 2.5mg daily Check INRs GERD Continue pantoprazole (may be contributor to osteopenia), ranitidine & Loratidine. CKD Follows with Dr. Davis, creatinine w/in baseline range 1.7-2.39 Creatinine bumped to 2.4 today, will give 1L fluid. HTN/HLD Continue ASA daily, metoprolol succinate 50mg QAM, atorvastatin 80 QHS. Hypothyroid Continue levothyroxine VTE Anticoagulated with warfarin as above Dispo: Med Surg, working on Placement to [facility], [facility] 2nd choice, [facility] is last choice. FULL CODE (2) Closed rib fracture: (3) Pneumonia: (4) Chronic kidney disease: (5) Hypothyroidism (acquired): (6) Osteopenia: (7) Hyperlipidemia: (8) GERD (gastroesophageal reflux disease): (2) Stroke-like symptoms: 73 year old female acute confusion and sedation throughout the afternoon believed to be 2/2 narcotics -Patient woke up this evening with slurred speech, left-sided facial droop, confusion and tremor PE; Left sided facial droop Intact strength and sensation of Upper and Lower extremity Plan; -Not a candidate for Tpa. Symptoms >4 hours, INR>1.7 -Discussed with the attending physician CT CTA head/neck NPO (3) GERD (gastroesophageal reflux disease): (4) Chronic kidney disease: (5) Hypothyroidism (acquired): (6) Pneumonia: (7) Closed rib fracture: Supervising Physician Co-Signing Physician Notes I personally examined the patient and verified all machado points of history and exam, discussed case, and agree with decision making with Dr Bates. resting comfortably no distress. pulmonary toilet needs d/w respiratory therapy. vitals noted nad breathing unlabored lungs somewhat coarse scattered rhonchi L worse than R. No focal neuro deficits noted at rest. skin shows no rashes no pallor or icterus. TIA� �Most likely small vessel disease in the brain. lipids/A1c good control, follow blood pressure but showing good control, continue antiplatelets. Cardioembolic work-up for completeness, but this will be of low interventional yield given that she is already on anticoagulation. multiple rib fractures -pain control --> PT/OT --> dispo planning appears to be working towards SNF/rehab emphasis. ?pneumonia -continue antibiotics given concern on possible aspiration. video fluoro tomorrow. increase pulmonary toilet (d/w RT) DVT proph - warfarin otherwise as above Subjective Pt was seen and examined at bedside. No acute overnight events. Slept well. Tolerating PO. Pain is better controlled. All questions answered. ROS: No chest pain, no SOB, no dyspnea on exertion, no palpitations, no fevers, no chills, no nausea, no vomiting, no diarrhea, no dysuria, no rash. Physical Exam Constitutional: average body habitus, + altered mental status and + frail appearing; no acute distress Eyes: no eyelid abnormality and no scleral abnormality ENMT: external ear and nose normal, oropharynx normal Neck: normal visual inspection Respiratory: no respiratory distress, does not use accessory muscles and no grunting Auscultation: + diminished lung sounds (diffusely) and + wheezes (bilaterally) Cardiovascular: Rate/Rhythm: regular rate and regular rhythm Heart Sounds: normal S1 and normal S2 Vessels: normal peripheral pulses Extremities: no pedal edema Gastrointestinal (Abdomen): Inspection/Auscultation: abdomen normal to inspection and normal bowel sounds; abdomen not distended Percussion/Palpation: abdomen soft; no guarding and abdomen not rigid Musculoskeletal: Head/Neck/Chest: normocephalic, head atraumatic and neck supple Neurologic: patellar DTR's 2+ bilat, sensation intact and PERRL, EOMI, accommodation nl, no face palsy, no dysarthria (left facial palsy on my exam, resolved on recheck) + obtunded Speech / Cognition: normal speech Motor/Sensory: + tremor (resting, bilateral hands) Cranial Nerves: EOM intact bilaterally Psychiatric: A+Ox3, euthymic affect Results & Data Vital Signs (Past 12 Hours) Vital Signs Temp Pulse Resp BP BP Pulse Ox 12/07/18 08:28 36.5 C 66 20 103/68 100 12/07/18 07:16 90 16 97 12/07/18 04:09 36.7 C 71 18 101/66 95 12/06/18 23:06 36.9 C 71 18 109/67 96 PG Care Time/CCT Total # of Minutes Spent Total Time Spent with Patient: Total time spent is greater than 50% in coordination of care (as documented) at patient's floor/unit and/or counseling patient: Resident Activity Tracking Resident Involvement: Resident Care Provided Care Provided: Adult Hospital Medicine (1) Closed rib fracture Encounter type: initial encounter Laterality: unspecified laterality Rib fracture type: multiple ribs Qualified Code(s): S22.49XA - Multiple fractures of ribs, unspecified side, initial encounter for closed fracture (2) Thoracic compression fracture Encounter type: initial encounter Thoracic vertebra fracture level: unspecified thoracic vertebra Qualified Code(s): S22.000A - Wedge compression fracture of unspecified thoracic vertebra, initial encounter for closed fracture
[2018-12-07] MEDS: GABAPENTIN 300 MG CAP PO SCH (20:07)
[2018-12-07] MEDS: CALCIUM 600MG + VIT D 400 IU TAB PO SCH (20:07)
[2018-12-07] MEDS: ATORVASTATIN 40 MG TAB PO SCH (20:07)
[2018-12-07] MEDS: cefTRIAXone SODIUM 1,000 MG/50 ML BAG IV SCH (22:40)
[2018-12-08] MEDS: ACETAMINOPHEN 500 MG TAB PO SCH ×5 (00:01→15:19)
[2018-12-08 06:28] LABS: INR 2.5 (0.9-1.1); Prothrombin Time 23.7 Seconds (9.0-12.0)
[2018-12-08] MEDS: LEVOTHYROXINE SODIUM 88 MCG TABLET PO SCH (06:32)
[2018-12-08 06:48] LABS: Albumin Globulin Ratio 0.8 (0.9-2); Albumin Level 2.6 gm/dl (3.4-5.0); BUN Creatinine Ratio 15.9 (10-20); Bilirubin,Total 0.2 mg/dl (0.2-1); Calcium 7.4 mg/dl (8.5-10.1); Creatinine Clr Calc Pharmacy 18.1 ml/min; Est GFR (Non-African American) 22.5; Globulin 3.4 gm/dl (2.5-4.0); Potassium 4.6 mmol/L (3.5-5.1)
[2018-12-08] MEDS: ALBUT/IPRATROP 3MG/0.5MG NEB 3 ML VIAL NEB SCH ×3 (06:58→15:10)
[2018-12-08] MEDS: BUDESONIDE 0.5 MG/2 ML VIAL (PULMICORT) NEB SCH (06:58)
[2018-12-08] MEDS: POTASSIUM CITRATE 10 MEQ TAB PO SCH (08:29)
[2018-12-08] MEDS: guaiFENesin 600 MG TABCR PO SCH (08:29)
[2018-12-08] MEDS: METOPROLOL SUCC 50MG EXT REL TAB PO SCH (08:29)
[2018-12-08] MEDS: PANTOprazole 40 MG TAB PO SCH (08:29)
[2018-12-08] MEDS: CALCITONIN SALMON NA 200 IU/AC 3.7 ML BTL SCH (08:30)
[2018-12-08] MEDS: LIDOCAINE 5% 1 PATCH TD SCH (08:30)
[2018-12-08] MEDS: DICLOFENAC SOD 1% GEL 100 GM TUBE EXT PRN (08:30)
[2018-12-08] MEDS: ASPIRIN 81 MG ECTAB PO SCH (08:30)
--- NOTE | 2018-12-08 12:08 | Fluoroscopy Report ---
FL video swallow HISTORY: Stroke. Evaluate for aspiration. TECHNIQUE: Video fluoroscopic evaluation of swallowing was performed in the AP and lateral projection s by the speech pathology staff. The patient is fed nectar-thick and thin liquid barium, a barium coa lacy wafer, and barium pudding. FLUOROSCOPY TIME: 1.5 minutes. NUMBER OF FLUOROSCOPY IMAGES: 0 COMPARISON STUDY: None. FINDINGS: The initial swallow, there is transient penetration. Additional swallows revealed no eviden ce of significant penetration or aspiration. There is markedly disordered esophageal motility. IMPRESSION: 1. Markedly disordered esophageal motility 2. Transient penetration. No evidence of aspiration. 3. Please see the speech pathologist report for detailed findings and recommendations. Electronically signed by: Armando Barker M.D. 12/08/2018 12:07 PM
--- NOTE | 2018-12-08 14:45 | Discharge Summary ---
Date of Service December 08, 2018 Admission HPI Per Admitting Provider The patient is a 73-year-old female with a past medical history including DVT, hyperlipidemia, kidney stones, lymphoma, thoracic compression fracture, renal insufficiency, UTI and elevated troponin level, who presented to the emergency department with worsening left rib cage area pain after a mechanical fall 2 days ago where she slipped and fell and landed against her bathtub. Upon questioning, she does have an intermittent cough for a number of months, and her daughter does report that she does have issues with clearing her throat frequently while eating. Admission Exam Per Admitting Provider The patient is awake, alert and oriented �3, well developed and well nourished, normocephalic and atraumatic, lying in bed and in intermittent acute distress. HEENT--PERRL, EOMI, mucous membranes and oropharynx normal. Neck--supple. No JVD. No bruits. Thyroid normal, trachea midline, no adenopathy. Heart--normal S1 and S2. No murmurs, rubs or gallops. Lungs/chest wall--few coarse breath sounds and wheezes bilaterally no respiratory distress, no accessory muscle use. Abdomen--normal bowel sounds and soft. Nontender. Nondistended. Extremities--no cyanosis or clubbing. No edema. There are good distal pulses b/l. Dermatologic--normal skin turgor, normal color, no abnormal lymph nodes, no rash. Neurologic--cranial nerves II through XII grossly intact. Rheumatologic--normal range of motion. Psychiatric--normal affect. Principal Diagnosis Mechanical fall with injury; left rib fractures of ribs 6-9; T11 compression fracture; aspiration pneumonia Discharge Exam Constitutional WD/WN, vitals as above cooperative Eyes PERRL, conjunctivae normal, anicteric sclerae ENMT Ears: no hearing impairment Nose: no external nose abnormality Mouth: no lip abnormality Neck normal visual inspection and trachea midline Respiratory coarse breath sounds bilaterally on expiration otherwise, good air movement with out any wheezing; no respiratory distress; no tachypnea. Cardiovascular Rate/Rhythm: regular rate and regular rhythm Gastrointestinal (Abdomen) Percussion/Palpation: abdomen soft; abdomen nontender and no guarding Musculoskeletal Head/Neck/Chest: normocephalic, head atraumatic and + localized rib tenderness Skin no rashes, warm and dry Neurologic moves all extremities and awake; no focal motor deficits Speech / Cognition: normal speech Motor/Sensory: + tremor (resting) Psychiatric A+Ox3, euthymic affect Discharge Data Allergies Allergy/AdvReac Type Severity Reaction Status Date / Time nitrofurantoin Allergy Intermediate HIVES,ITCHI Verified 12/04/18 15:06 NG mivacurium Allergy Unknown HIVES Verified 12/04/18 15:06 Consultations 12/04/18 19:26 ED Decision to Admit Stat 12/04/18 22:17 Consult Case Management - Discharge Planning Routine 12/06/18 08:02 Consult Neurology Routine 12/06/18 15:54 Consult Case Management - Discharge Planning Routine Ordered Studies 12/04/18 17:07 CT abd pelvis wo con Stat IMPRESSION: 1. Acute mildly displaced fractures of the left lateral sixth through eighth ribs. 2. New mild compression fracture at T10. 3. No acute intra-abdominal injury. 4. Cholelithiasis. 5. Chronic changes at the lung bases may suggest either chronic aspiration or congestive change CT chest wo con Stat IMPRESSION: 1. Acute mildly displaced and nondisplaced fractures of the left lateral sixth through eighth ribs. 2. Possible nondisplaced fracture of the left lateral ninth rib. 3. New mild compression fracture of T11. This was previously reported as T10 on the CT of abdomen and pelvis. Confusion as to the exact level may be a result of rudimentary ribs in the lower thoracic spine and potentially 6 lumbar vertebral body levels. 4. No parenchymal injury of the lungs. 5. Upper lobe dominant emphysema. 6. Mild fibrotic changes suggested at the lung bases. Differential considerations include chronic aspiration or less likely congestive change. 12/06/18 01:24 CT head/brain wo con Urgent IMPRESSION: 1. Chronic small vessel ischemic change. No acute intracranial abnormality 12/06/18 02:27 MR brain wo con Stat IMPRESSION: 1. Chronic small vessel ischemic change. No acute intracranial abnormality. 12/06/18 03:51 CT angio head w con Stat IMPRESSION: 1. No evidence of aneurysm, focal vessel occlusion, or significant stenosis of the intracranial arteries. 2. Right basilar opacity setting of low lung volumes, likely atelectasis. CT angio neck with con Stat IMPRESSION: 1. Mild stenoses at the proximal internal carotid arteries bilaterally (less than 50%). Minimal stenosis of the origin of the left vertebral artery (approximately 25%). No significant stenosis. No focal vessel occlusion or dissection. 2. Emphysema. 12/08/18 11:45 FL video swallow Routine Showing no oral or pharyngeal dysphagia. No aspiration and penetration occurred only on initial presentation. Noted esophageal dysmotility with retrograde motion. Speech Therapy Swallowing Study recs: 1. �Slippery� Regular diet with thin liquids. Avoid foods that are thick and pasty. Add condiments and extra moistening agents (gravies, sauces) whenever appropriate. 2. Consideration for GI consult secondary to aspiration of Reflux likely contributing to ongoing pneumonia. Aspiration precautions: Alternate solids and liquids; fully alert and upright; single bites/small sips/slow rate Reflux precautions: Alternate solids and liquids; HOB 30 degrees all time; slippery diet; small frequent meals; upright with meals + 30 minutes. Echocardiogram performed on 12/08/18 Mild concentric LVH Normal LV systolic function Grade 1 diastolic dysfunction LA is mildly dilated No interartial shunt Aortic valve sclerosis is mild without significant stenosis Mod-severe mitral annular calcification. Mild mitral stenosis. Right ventricular systolic pressure is elevated at 40-50mm Hg. Hospital Course (1) Thoracic compression fracture: 73F presenting presenting to the ED for left sided rib pain two days after a mechanical fall onto her bathtub. Also being treated for a pneumonia. Morning of 12/06/18 pt developed L sided facial droop which resolved within 5 hrs - dx of TIA, no med changes. We are awaiting placement to SNF and video swallow test. Thoracic compression fracture s/p fall Left lateral mildly displaced 6-9th rib fracture and acute T11 vertebral compression fracture post mechanical fall at home on a background of osteopenia. PT/OT evals ordered - recommend SNF as of 12/06/18, with placement for [facility]. Hospital course focused on pain control then placement. For pain: 500mg PO acetaminophen Q4 SCHEDULED, Voltaren gel QID, lidocaine patch, gabapentin (home med). She did not tolerate Ultram PRN, PO Percocet q6h PRN as this was suspected to be possible cause of AMS/stroke like symptoms. Continue Ca+ supplementation and denusomab once outpatient. Aspiration pneumonia (hx of coughing with eating) vs. atelectasis (2/2 to resp splinting) As evidenced in lung bases on chest CT speech recommend bite sized diet + aspiration precautions with slippery diet Video swallow was performed on 12/08 with recs 1. �Slippery� Regular diet with thin liquids. Avoid foods that are thick and pasty. Add condiments and extra moistening agents (gravies, sauces) whenever appropriate. 2. Consideration for GI consult secondary to aspiration of Reflux likely contributing to ongoing pneumonia. Albuterol Q4H scheduled while here. Budesonide BID Scheduled while here. Hospital course abx included ceftriaxone (4 doses) and azithromycin, for DC will provide aspiration coverage with Augmentin 875mg BID x 6 days (total of 12 pills). TIA morning 12/06/18 (resolved) Left sided facial droop was the presenting symptom noticed by the overnight nurse on AM of 12/06/18. CT imaging negative. MRI negative. HBA1C 6.0 Lipids WNL. Neuro consulted: c/w ASA, Lipitor and Coumadin. LFT spike, unknown etiology, improving LFT normal on admission, AST spike to 192 and ALT spiked to 98 on hospital Day #1, unknown etiology, pt did not any significant Tylenol doses prior to the spike. CT Abdo reviewed, no significant GB or liver pathology. H/o DVT on Coumadin INR 2.5, no suggestive of bleeding on CT of chest, abdomen or pelvis associate with recent trauma. c/w Coumadin 2.5mg daily Check INRs as oupatient GERD Continue pantoprazole (may be contributor to osteopenia), ranitidine & Loratidine. CKD Follows with Dr. Davis, creatinine w/in baseline range 1.7-2.39 Creatinine bumped to 2.4 on 12/07 and gave 1L fluid, which improved creat to 2.1 on day of discharge. HTN/HLD Continue ASA daily, metoprolol succinate 50mg QAM, atorvastatin 80 QHS. Hypothyroid Continue levothyroxine VTE Anticoagulated with warfarin as above Dispo: Med Surg, Placement to [facility] 2nd choice, [facility] was last choice. FULL CODE (2) Closed rib fracture: (3) Pneumonia: (4) Chronic kidney disease: (5) Hypothyroidism (acquired): (6) Osteopenia: (7) Hyperlipidemia: (8) GERD (gastroesophageal reflux disease): (2) Stroke-like symptoms: 73 year old female acute confusion and sedation throughout the afternoon believed to be 2/2 narcotics -Patient woke up on 12/06/18 with slurred speech, left-sided facial droop, confusion and tremor PE: Left sided facial droop Intact strength and sensation of Upper and Lower extremity Plan: -Not a candidate for Tpa. Symptoms >4 hours, INR>1.7 -Discussed with the attending physician -imaging was included per above with all workup negative for acute CVA. -symptoms did resolve. (3) GERD (gastroesophageal reflux disease): (4) Chronic kidney disease: (5) Hypothyroidism (acquired): (6) Pneumonia: (7) Closed rib fracture: Total Time Total Time Spent Total Time Spent (In Minutes): 30 Total Time Includes: Examination of the Patient, Discharge Planning, Medication Reconciliation and Communication With Other Providers Discharge Plan Discharge Items Patient Disposition: Transfer Inpatient Rehab Fac Reason For Visit: RIB FRACTURES, PNEUMONIA Discharge Diagnosis: Fall; Left 6-9 rib fractures; T11 compression fracture; aspiration pneumonia Discharge Goals: Therapeutic intervention Activity: Per 'Additional Instructions' section Non-emergency contact: Primary Care Provider Call non-emergency contact if: you have any medication questions, your symptoms worsen, your pain is not controlled and you have a fever Follow-up/Referrals: Thang Lakhani MD [Primary Care Provider] - Diet: See below Addtl Provider Instructions: You were admitted for a fall with evaluation for rib fractures occurring to your left ribs 6-9 and also a new compression fracture of Thoracic spinal level of 11 (T11). You were also treated for a pneumonia and received IV antibiotics here (Rocephin). You will need to continue taking antibiotics for 7 more days. This antibiotic is called Augmentin and will be taken twice per day for 6 more days (total of 12 pills). You had a Speech swallowing study performed here on 12/08/18 Showing no oral or pharyngeal dysphagia. No aspiration and penetration occurred only on initial presentation. Noted esophageal dysmotility with retrograde motion. Speech Therapy Swallowing Study recs: 1. �Slippery� Regular diet with thin liquids. Avoid foods that are thick and pasty. Add condiments and extra moistening agents (gravies, sauces) whenever appropriate. 2. Consideration for GI consult secondary to aspiration of Reflux likely contributing to ongoing pneumonia. Aspiration precautions: Alternate solids and liquids; fully alert and upright; single bites/small sips/slow rate Reflux precautions: Alternate solids and liquids; HOB 30 degrees all time; slippery diet; small frequent meals; upright with meals + 30 minutes. You are being discharged to [facility] for further care. You will continue all your previous home medications with the addition of the new antibiotic medication Augmentin 875mg BID (twice per day) x 6 days. For rib pain, you did not tolerate narcotic medications well during stay as it altered your mental status. For pain, please use Tylenol Extra Strength 500mg every 6 hours scheduled. Lidocaine patches to affected areas of pain. Voltaren gel to be used PRN for pain. Also, your home medication of Gabapentin will help provide pain relief as well. Prescriptions: New acetaminophen [Tylenol Extra Strength] 500 mg Tablet 500 mg PO Q4H 30 Days Qty: 180 RF: 0 diclofenac sodium [Voltaren] 1 % Gel 2 gm EXT QID PRN (Reason: pain) 30 Days Qty: 100 RF: 0 amoxicillin-pot clavulanate [Augmentin] 875-125 mg tablet 1 tab PO BID 6 Days Qty: 12 RF: 0 lidocaine 5 % Adhesive Patch,Medicated 1 patch transdermal QAM Qty: 15 RF: 0 Continued warfarin 2.5 mg tablet 2.5 mg PO HS RF: 0 aspirin 81 mg tablet,delayed release (DR/EC) 81 mg PO QAM RF: 0 atorvastatin 80 mg tablet 80 mg PO HS RF: 0 calcium carbonate-vitamin D3 [Os-Jonah 500 + D3] 500 mg(1,250mg) -200 unit tablet 1 tab PO HS RF: 0 denosumab 60 mg/mL syringe See Patient Comments SQ .COMPLEX RF: 0 fluticasone propionate 50 mcg/actuation spray,suspension 1 sprays INTNAS QAM PRN (Reason: Allergy Symptoms) RF: 0 gabapentin 300 mg capsule 300 mg PO HS RF: 0 levothyroxine 88 mcg capsule 88 mcg PO QAM RF: 0 loratadine 10 mg tablet 10 mg PO DAILY PRN (Reason: allergy symptoms) RF: 0 metoprolol succinate 50 mg capsule,sprinkle,ER 24hr 50 mg PO QAM RF: 0 omeprazole 40 mg capsule,delayed release(DR/EC) 40 mg PO QAM RF: 0 polyethylene glycol 3350 17 gram/dose powder 17 gm PO QAM PRN (Reason: Constipation) RF: 0 potassium citrate 15 mEq tablet extended release 15 meq PO QAM RF: 0 ranitidine HCl 300 mg capsule 300 mg PO HS RF: 0 Discontinued acetaminophen [Tylenol Arthritis Pain] 650 mg Tablet Extended Release 650 mg PO Q12H PRN (Reason: Pain) RF: 0 Stand-Alone Forms: Alyssa Sellfy Apolinar/Other Patient Handouts: Prediabetes, Diabetes Meal Planning Discharge Orders: Discharge Order (Routine); Ordered 12/08/18 Ordered By: Sharad Dent Skilled Items Patient informed of condition?: Yes DNR: No Discharge Level of Care: Acute rehab Communicable Disease: No Discharge Prognosis: Stable Admission Data Admit Date/Time: 12/04/18 20:59 Attending Provider: Narciso Posey Admit Provider: Maxim Chappell Primary Care Provider: Thang Lakhani Other Providers: Maxim Chappell ; Reynold Paulson III Service: Medical Other Interventions: Discharge Summary Assessment (RN) Last Done: 12/08/18 15:18 DC Date/Time DO NOT enter until pt leaves facility: 12/08/18 15:55 Supervising Physician Co-Signing Physician Notes Attending attestation Pt seen and examined in concert with Dr. Dent. In agreement with the docum ented findings as noted in the resident documentation with any exceptions or additions as noted here. On examination, course expiratory breath sounds L > R without rales. Multiple rib fractures with ?PNA - video fluoroscopy without overt sign of aspiration. Complete course of Augmentin for aspiration coverage. Encourage IS as tolerated. Pain control as noted. TIA - continue statin therapy, ASA. Presently on AC with warfarin. Else see resident documentation as noted. Resident Activity Tracking Resident Involvement: Resident Care Provided Care Provided: Adult Hospital Medicine
[2018-12-08] MEDS ORDERED: WARFARIN SOD 2.5 MG TAB PO SCH (16:00)
== END 2018-12-08 15:55 | DRG 183 ==
LOC: ED 14:03 → SUATTDRO 20:59 → 2S 20:59 → 2W 12-05 12:04
DX: E03.9 Hypothyroidism, unspecified; R09.02 Hypoxemia; Z88.1 Allergy status to other antibiotic agents; W01.198A Fall on same level from slipping, tripping and stumbling with subsequent striking against other object, initial encounter; Y92.002 Bathroom of unspecified non-institutional (private) residence as the place of occurrence of the external cause; N18.9 Chronic kidney disease, unspecified; G45.9 Transient cerebral ischemic attack, unspecified; I12.9 Hypertensive chronic kidney disease with stage 1 through stage 4 chronic kidney disease, or unspecified chronic kidney disease; K21.9 Gastro-esophageal reflux disease without esophagitis; M85.80 Other specified disorders of bone density and structure, unspecified site; Z79.83 Long term (current) use of bisphosphonates; Z88.8 Allergy status to other drugs, medicaments and biological substances; F17.210 Nicotine dependence, cigarettes, uncomplicated; R94.5 Abnormal results of liver function studies; J69.0 Pneumonitis due to inhalation of food and vomit; Z79.01 Long term (current) use of anticoagulants; Z86.718 Personal history of other venous thrombosis and embolism; Z79.899 Other long term (current) drug therapy; S22.42XA Multiple fractures of ribs, left side, initial encounter for closed fracture; E78.5 Hyperlipidemia, unspecified; Z79.82 Long term (current) use of aspirin; R29.810 Facial weakness; S22.088A Other fracture of T11-T12 vertebra, initial encounter for closed fracture

== ENCOUNTER 2023-01-09 17:07 | Inpatient (IN) ==
[2023-01-09] MEDS ORDERED: methylPREDNISolone 125 MG/2 ML VIAL IV STA (17:17)
[2023-01-09] MEDS ORDERED: ALBUT/IPRATROP 3MG/0.5MG NEB 3 ML VIAL INH STA (17:17)
[2023-01-09] MEDS ORDERED: SODIUM CHLORIDE 0.9% 500 ML IV STA (17:17)
[2023-01-09] MEDS ORDERED: MAGNESIUM SULFATE / D5W 1 GM/100 ML BAG IV STA (17:19)
--- NOTE | 2023-01-09 17:22 | Emergency Department Note ---
Impression & Plan Acute respiratory failure with hypoxia, Pulmonary edema, Interstitial lung disease ED Provider Note NAME: SOFYA COX AGE: 77 SEX: F : 1945 ARRIVES VIA: Ambulance INFORMANT: Patient, ED PROVIDER(S): Vinay Tim MD CHIEF COMPLAINT: Weak, dry mouth MEDICAL DECISION MAKING: Patient presents due to concern for weakness and associated dry mouth in setting of taking a fairly large amount of THC. IV was established blood work was obtained. Patient was given a small mount of IV fluids as the patient was hypoxemic at the bedside was placed on 1 to 2 L nasal cannula ordered a DuoNeb steroids and magnesium as the patient does admit to smoking. Patient's blood work shows a normal white count hemoglobin and platelet count. The patient's kidney function is slightly worse compared to before with creatinine 2.4 today. Magnesium slightly low at 1.6. Troponin is not elevated. Patient is tolerating 2 L nasal cannula without issue. Patient's weight is up 3 kg from November 2022. Patient had initially received some IV fluids but may have a component of pulmonary edema. Given the patient's hypoxia. I did speak with the on-call hospitalist service the patient was admitted to the medicine service. Critical Care: I have personally spent 35 minutes of critical care time in direct management of this patient. This includes bedside care, interpretation of diagnostic studies, and testing, discussion with consultants, patient, and family members, and other require inpatient management activities. This 35 minutes is in excess of all separately billable procedures. Prior /Outside records reviewed: I did review an echocardiogram from November 2018. Patient still have some LVH grade 1 diastolic dysfunction. Patient was noted to have mild mitral stenosis as well as aortic valvular sclerosis without valvular stenosis at that time Differential diagnosis: Infection, dehydration, metabolic abnormality, hypo/hyperglycemia, electrolyte disturbance, anemia, hypoxia, cardiac sources, intracerebral event, toxicologic, neurologic, as well as other pathologies. Diagnostics, as interpreted by me: ECG: Normal sinus rhythm, rate of 83, normal intervals, normal axis no ST elevations. Cardiac monitoring: An order was placed for continuous cardiac monitoring. The monitor shows a rate of 83 with sinus rhythm. Patient was placed on pulse oximetry Medical decision rules: None Imaging studies: See below I informally reviewed the patient's chest x-ray which does show some pulmonary edema HPI: Patient presents due to concern for weakness fatigue inability to ambulate in the setting of taking 100 mg of THC. The patient has been taking this for chronic pain but only recently started. Patient reportedly was unable to ambulate per caregiver that does present 4 hours a day 5 days a week. When EMS arrived the patient was able to ambulate with a cane. No reported falls or trauma. The patient does not complain of shortness of breath and does not wear any oxygen at home. The patient does occasionally smoke. PAST MEDICAL HISTORY: See Below PAST SURGICAL HISTORY: See Below SOCIAL HISTORY: See Below HOME MEDICATIONS: See Below ALLERGIES: See Below VITALS: See Below PHYSICAL EXAMINATION: GENERAL: NAD, wearing a mask, non-toxic. EYE EXAM: Normal conjunctiva. PERRL, no anisocoria and EOM's grossly intact w/o pain. NECK: Supple, no nuchal rigidity, no adenopathy, non-tender. No signs of meningismus. FROM of the neck with good chin to chest and neck extension. No stridor. LUNGS: Bibasilar crackles. Normal chest wall mechanics. HEART: NSR, no MRG. ABDOMEN: Abdomen soft, non-tender, no masses, no rebound or guarding. BACK: No CVA TTP. SKIN: No rashes and no bruising. UPPER EXTREMITIES: Upper extremities are grossly normal. LOWER EXTREMITIES: Grossly normal, no edema. NEURO EXAM: A&O x3, cranial nerves II-XII grossly intact, normal speech, moves all 4 extremities. Past Med/Surg History Medical History Acute kidney injury Ankle edema, bilateral Arthritis Asymptomatic menopausal state Blood glucose abnormal Cardiomyopathy Cholelithiasis Chronic back pain greater than 3 months duration Chronic deep vein thrombosis of left lower extremity Chronic fatigue syndrome Chronic GERD Chronic kidney disease Chronic laryngitis Chronic pharyngitis Cigarette smoker motivated to quit Compression fracture of lumbar vertebra Constipation Cough Deep vein thrombosis of distal lower extremity Depression Dermatitis, eczematoid Diabetes mellitus (11/29/12) Dizziness DVT (deep venous thrombosis) Dyspnea on exertion Dysuria Gastropathy GERD (gastroesophageal reflux disease) GI bleed Hearing loss Hematuria Hematuria, microscopic Herpes simplex Hoarseness Hyperglycemia Hyperlipidemia Hypothyroidism Hypothyroidism (acquired) Interstitial lung disease Iron deficiency anemia Ischemic colitis Kidney stones Laryngitis Leg length discrepancy Lightheadedness Low back pain Lumbago Lumbar spinal stenosis Muscle spasm Nasal dryness Nicotine dependence NSTEMI (non-ST elevated myocardial infarction) 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 Osteopenia (11/29/12) Pneumonia RAD (reactive airway disease) with wheezing 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 Recurrent UTI Rib pain on right side Secondary hyperparathyroidism (of renal origin) Secondary hyperparathyroidism of renal origin Shortness of breath Sinusitis SNHL (sensorineural hearing loss) Solitary pulmonary nodule Stroke-like symptoms Subsequent non-ST elevation (NSTEMI) myocardial infarction Takotsubo syndrome Tendinitis of left rotator cuff Thyroid disease Tinnitus, bilateral Type 2 diabetes mellitus without complication UTI (urinary tract infection) Vertigo Surgical History History of back surgery History of History of D&C History of tubal ligation Hx of colonoscopy Family History Mother Leukemia Hypertension Father Myocardial infarction Diabetes Other Family history non-contributory Denies family history of Ovarian cancer Prostate cancer Breast cancer Lung cancer Social History Smoking Status: Current some day smoker Tobacco Type: Cigarettes Cigarettes Per Day: 1 cigarette every week; Second Hand Exposure: No; Do You Dip or Chew Tobacco: No; Tobacco Cessation Education Requested by Patient: No Hx Alcohol Use: No Hx Substance Use: Yes Last Used Substance: Hours (ago) Preferred Language: Estonian Communication Ability: Effective Visual Impairment: No Limitations Hearing Ability: Use of Hearing Aid Acid Conditioner Required: No Beliefs That Will Affect Care: None marital status: Current Living Situation: Alone Current Living Situation Comment: Has a caregiver current occupational status: retired Other Information That Helps Us Care for You: No Feels Safe at Home: Yes Safety Concerns: Feels Safe At This Time Childhood Exposure to Second-Hand Smoke: Yes caffeine: No Dental Care, Regularly: No Physical Activity Frequency: Does not Exercise Seatbelt Use: always Sunscreen Use: No Assistive Devices: Cane Allergies Allergies Allergy/AdvReac Type Severity Reaction Status Date / Time nitrofurantoin Allergy Intermediate HIVES,ITCHI Verified 01/09/23 18:49 NG azithromycin [From Zithromax] Allergy HIVES Verified 01/09/23 18:49 tramadol AdvReac Mild nausea Verified 01/09/23 18:49 Home Meds Home Medications Medication Instructions Recorded Confirmed aspirin 81 mg tablet,delayed 81 mg PO QAM 06/06/18 01/09/23 release denosumab 60 mg/mL subcutaneous 60 mg subcut Q6MO 02/25/19 01/09/23 syringe lancets 33 gauge (Hemant Tovar #100 ea 07/13/20 01/09/23 Lancets) blood sugar [facility] 12/08/21 01/09/23 Ultra Blue Test Strip) calcium carbonate 500 mg calcium 500 mg PO QAM 06/29/22 01/09/23 (1,250 mg) chewable tablet (Calcium 500) pyridoxine (vitamin B6) 100 mg 100 mg PO Q OTHER DAY 06/29/22 01/09/23 tablet valacyclovir 500 mg tablet 500 mg PO DAILY PRN breakout 06/29/22 01/09/23 albuterol sulfate 2.5 mg/3 mL 2.5 mg inhalation Q8H PRN 01/09/23 01/09/23 (0.083 %) solution for nebulization Shortness Of Breath Or Wheezing carbidopa 10 mg-levodopa 100 mg 1.5 tab PO TID 01/09/23 01/09/23 tablet cyanocobalamin (vitamin B-12) 500 500 mcg PO QAM 01/09/23 01/09/23 mcg tablet dexlansoprazole 60 mg 60 mg PO QAM 01/09/23 01/09/23 capsule,biphase delayed release (Dexilant) hydrocortisone acetate 25 mg 25 mg KS BID PRN Hemorrhoids 01/09/23 01/09/23 rectal suppository (Anusol-HC) levothyroxine 88 mcg tablet 88 mcg PO DAILYBB 01/09/23 01/09/23 metoprolol succinate 50 mg 50 mg PO QAM 01/09/23 01/09/23 tablet,extended release 24 hr Previous Rx's Medication Instructions Recorded atorvastatin 80 mg tablet 80 mg PO HS #90 tabs 11/10/21 albuterol sulfate 90 mcg/actuation 2 puff inhalation QID PRN 03/05/22 aerosol inhaler (Ventolin HFA) shortness of breath or wheezing #6.7 grams fluticasone propionate 50 2 spray intranasal QAM PRN Allergy 03/16/23 mcg/actuation nasal Symptoms #16 grams spray,suspension rivaroxaban 10 mg tablet (Xarelto) 10 mg PO DAILY #30 tabs 12/18/22 Results & Data (ED) Vital Signs Vital Signs - 24 hr 01/09/23 17:35 01/09/23 18:01 01/09/23 18:01 Pulse Rate 82 Pulse Rate [Apical] 75 Respiratory Rate 18 Pulse Oximetry 91 92 Oxygen Delivery Method Nasal Cannula Nasal Cannula Oxygen Flow Rate 1 1 01/09/23 18:25 Pulse Rate Pulse Rate [Apical] Respiratory Rate Pulse Oximetry 92 Oxygen Delivery Method Room Air Oxygen Flow Rate Home Medications Current Medication List: was personally reviewed by me Laboratory Data Attestation: I reviewed the patient's lab results. 01/09/23 17:30 01/09/23 17:30 Lab Results 01/09/23 01/09/23 Range/Units 17:30 17:30 WBC 7.88 (4.8-10.8) K/ul RBC 3.57 L (4.20-5.40) M/uL Hgb 12.4 (12.0-16.0) g/dl Hct 38.0 (37.0-47.0) % MCV 106.4 H (80.0-100.0) fL MCH 34.7 H (25.0-34.0) pg MCHC 32.6 (32.0-36.0) g/dL RDW Std Deviation 53.8 H (36.4-46.3) fL RDW Coeff of Damien 13.7 (11.5-14.5) % Plt Count 308 (130-400) K/uL MPV 10.1 (9.4-12.4) fL Immature Gran % (Auto) 0.3 % Neut % (Auto) 66.7 % Lymph % (Auto) 23.5 % [place] % (Auto) 7.6 % Eos % (Auto) 1.1 % Baso % (Auto) 0.8 % Neut # (Auto) 5.26 (1.40-6.50) K/uL Lymph # (Auto) 1.85 (1.2-3.4) K/uL [place] # (Auto) 0.60 H (0.11-0.59) K/uL Eos # (Auto) 0.09 (0-0.50) K/uL Baso # (Auto) 0.06 (0-0.2) K/uL Immature Gran # (Auto) 0.02 (0.01-0.20) K/uL Sodium 140 (136-145) mmol/L Potassium 4.8 (3.5-5.1) mmol/L Chloride 104 (98-107) mmol/L Carbon Dioxide 30 (21-32) mmol/L Anion Gap 6 (3-11) BUN 35 H (6-23) mg/dl Creatinine 2.42 H (0.6-1.2) mg/dl Est Cr Clr Drug Dosing 15.5 ml/min Est GFR ( Amer) 21.3 ml/min Est GFR (Non-Af Amer) 18.4 ml/min BUN/Creatinine Ratio 14.5 (10-20) Glucose 106 H (70-99(Fasting)) mg/dl Calcium 9.6 (8.6-10.3) mg/dl Magnesium 1.6 L (1.7-2.4) mg/dl Total Bilirubin 0.3 (0.2-1.0) mg/dl AST 18 (13-39) U/L ALT 3 L (7-52) U/L Alkaline Phosphatase 88 (34-104) U/L Troponin I High Sens 12.5 (0-14) pg/ml Total Protein 7.4 (6.0-8.3) gm/dl Albumin 4.1 (3.4-5.0) gm/dl Globulin 3.3 (2.5-4.0) gm/dl Albumin/Globulin Ratio 1.2 (0.9-2) Administered Medications Acetaminophen (Acetaminophen 500 Mg Tab) 1,000 mg PO TID LOREN Stop: 02/09/23 13:59 Last Admin: 01/10/23 13:08 Dose: 1,000 mg Documented By: KARINA Aspirin (Aspirin 81 Mg Ectab) 81 mg PO QAM LOREN Stop: 02/09/23 08:59 Last Admin: 01/10/23 08:07 Dose: 81 mg Documented By: KARINA Atorvastatin Calcium (Atorvastatin 40 Mg Tab) 80 mg PO HS LOREN Stop: 02/09/23 01:01 Last Admin: 01/10/23 01:49 Dose: 80 mg Documented By: IVONE Carbidopa/Levodopa (Carbidopa/Levodop 10/100mg Tab) 1.5 tab PO TID [facility] Stop: 02/09/23 01:01 Last Admin: 01/10/23 13:08 Dose: 1.5 tab Documented By: Admin: 01/10/23 08:07 Dose: 1.5 tab Documented By: Admin: 01/10/23 01:48 Dose: 1.5 tab Documented By: IVONE Cyanocobalamin (Cyanocobalamin (B-12) 500 Mcg Tablet) 500 mcg PO QAM [facility] Stop: 02/09/23 08:59 Last Admin: 01/10/23 08:07 Dose: 500 mcg Documented By: KARINA Docusate Sodium (Docusate Sodium 100 Mg Cap) 100 mg PO DAILY [facility] Stop: 02/09/23 16:29 Last Admin: 01/10/23 16:39 Dose: 100 mg Documented By: KARINA Furosemide (Furosemide 40 Mg/4 Ml Vial) 40 mg IV QAM [facility] Stop: 02/09/23 08:59 Last Admin: 01/10/23 08:10 Dose: 40 mg Documented By: KARINA Levothyroxine Sodium (Levothyroxine Sodium 88 Mcg Tablet) 88 mcg PO DAILYBB [facility] Stop: 02/09/23 06:29 Last Admin: 01/10/23 05:53 Dose: 88 mcg Documented By: IVONE Metoprolol Succinate (Metoprolol Succ 50mg Ext Rel Tab) 50 mg PO QAM [facility] Stop: 02/09/23 08:59 Last Admin: 01/10/23 08:07 Dose: 50 mg Documented By: KARINA Pantoprazole Sodium (Pantoprazole 40 Mg Tab) 40 mg PO QAM [facility] Stop: 02/09/23 08:59 Last Admin: 01/10/23 08:07 Dose: 40 mg Documented By: KARINA Rivaroxaban (Rivaroxaban 10 Mg Tablet) 10 mg PO DAILY [facility] Stop: 02/09/23 08:59 Last Admin: 01/10/23 08:07 Dose: 10 mg Documented By: KARINA Discontinued Medications Acetaminophen (Acetaminophen 325 Mg Tab) 650 mg PO Q4H PRN PRN Reason: Pain or Fever Stop: 02/09/23 01:01 Last Admin: 01/10/23 01:15 Dose: 650 mg Documented By: IVONE Albuterol (Albut/Ipratrop 3mg/0.5mg Neb 3 Ml Vial) 3 ml INH NOW STA Stop: 01/09/23 17:18 Last Admin: 01/09/23 17:50 Dose: 3 ml Documented By: ACC Calcium Carbonate (Calcium Carbonate 1250mg Tab) 1,250 mg PO QAM [facility]OR[facility] Stop: 02/09/23 08:59 Last Admin: 01/10/23 08:25 Dose: Not Given Documented By: KARINA Furosemide (Furosemide 40 Mg/4 Ml Vial) 40 mg IV ONE ONE Stop: 01/10/23 01:03 Last Admin: 01/10/23 01:49 Dose: 40 mg Documented By: CR Sodium Chloride (Nss) 500 mls @ 999 mls/hr IV .Q31M STA Stop: 01/09/23 17:47 Last Infusion: 01/09/23 21:00 Dose: 0 mls/hr Documented By: Admin: 01/09/23 17:52 Dose: 999 mls/hr Documented By: ACC Magnesium Sulfate/Dextrose (Magnesium Sulfate / D5w) 1 gm in 100 mls @ 100 mls/hr IV NOW STA Stop: 01/09/23 18:18 Last Infusion: 01/09/23 21:00 Dose: 0 mls/hr Documented By: Admin: 01/09/23 17:51 Dose: 100 mls/hr Documented By: ACC Magnesium Sulfate/Dextrose (Magnesium Sulfate / D5w) 1 gm in 100 mls @ 50 mls/hr IV ONE ONE Stop: 01/09/23 22:07 Last Infusion: 01/10/23 00:01 Dose: 0 mls/hr Documented By: Admin: 01/09/23 21:00 Dose: 50 mls/hr Documented By: MARQUEZ Methylprednisolone 40 mg/ (Syringe) 0.64 mls @ 1.5 mls/min IV Q8H [facility]OR[facility] Stop: 02/09/23 06:59 Last Admin: 01/10/23 05:54 Dose: 1.5 mls/min Documented By: IVONE Methylprednisolone (Methylprednisolone 125 Mg/2 Ml Vial) 40 mg IV NOW STA Stop: 01/09/23 17:18 Last Admin: 01/09/23 17:50 Dose: 40 mg Documented By: ACC Imaging Data Radiologist's Impression: Chest X-Ray 01/09/23 17:18 XR chest 1V portable HISTORY: hypoxia COMPARISON: Chest 04/11/2022. FINDINGS: There are low lung volumes. No pneumothorax. Trace bilateral pleural effusions. The heart is enlarged. There is progressive interstitial/vascular thickening consistent with edema. No new focal lung consolidations identified. Scoliosis again noted. There are surgical clips within the right neck. IMPRESSION: Mild cardiomegaly with interval progression of the interstitial/vascular thickening consistent with pulmonary edema. ACT 112: Negative or not required by law. Electronically signed by: Kade Osborne M.D. 01/09/2023 6:08 PM Discharge Plan Visit Data Chief Complaint: Weakness Stated Complaint: WEAKNESS, VISION LITTLE OFF ED Provider: Vinay Tim Discharge Problem: Acute respiratory failure with hypoxia, Pulmonary edema, Interstitial lung disease Patient Disposition: Admitted As Inpatient Discharge Instructions Interventions: ED Discharge Assessment Last Done: 01/10/23 00:36
[2023-01-09 17:49] LABS: Basophils # (auto) 0.06 K/uL (0-0.2); Basophils % (auto) 0.8 %; Eosinophils # (auto) 0.09 K/uL (0-0.50); Eosinophils % (auto) 1.1 %; Hemoglobin 12.4 g/dl (12.0-16.0); Immature Granulocytes # (auto) 0.02 K/uL (0.01-0.20); Immature Granulocytes % (auto) 0.3 %; Lymphocytes # (auto) 1.85 K/uL (1.2-3.4); Lymphocytes % (auto) 23.5 %; Mean Corpuscular Hemoglobin 34.7 pg (25.0-34.0); Mean Corpuscular Hgb Conc 32.6 g/dL (32.0-36.0); Mean Corpuscular Volume 106.4 fL (80.0-100.0); Mean Platelet Volume 10.1 fL (9.4-12.4); Monocytes % (auto) 7.6 %; Neutrophils # (auto) 5.26 K/uL (1.40-6.50); Neutrophils % (auto) 66.7 %; Platelet Count 308 K/uL (130-400); RDW Coefficient of Variation 13.7 % (11.5-14.5); RDW Standard Deviation 53.8 fL (36.4-46.3); Red Blood Count 3.57 M/uL (4.20-5.40); White Blood Count 7.88 K/ul (4.8-10.8)
--- NOTE | 2023-01-09 18:11 | XRay Report ---
XR chest 1V portable HISTORY: hypoxia COMPARISON: Chest 04/11/2022. FINDINGS: There are low lung volumes. No pneumothorax. Trace bilateral pleural effusions. The heart i s enlarged. There is progressive interstitial/vascular thickening consistent with edema. No new focal lung consolidations identified. Scoliosis again noted. There are surgical clips within the right nec k. IMPRESSION: Mild cardiomegaly with interval progression of the interstitial/vascular thickening consistent with p ulmonary edema. ACT 112: Negative or not required by law. Electronically signed by: Kade Osborne M.D. 01/09/2023 6:08 PM
[2023-01-09 18:22] LABS: Albumin Globulin Ratio 1.2 (0.9-2); Albumin Level 4.1 gm/dl (3.4-5.0); BUN Creatinine Ratio 14.5 (10-20); Bilirubin,Total 0.3 mg/dl (0.2-1.0); Calcium 9.6 mg/dl (8.6-10.3); Creatinine Clr Calc Pharmacy 15.5 ml/min; Est GFR (African American) 21.3 ml/min; Est GFR (Non-African American) 18.4 ml/min; Globulin 3.3 gm/dl (2.5-4.0); Magnesium 1.6 mg/dl (1.7-2.4); Potassium 4.8 mmol/L (3.5-5.1); Total Protein 7.4 gm/dl (6.0-8.3)
[2023-01-09 18:27] LABS: Troponin I High Sensitivity 12.5 pg/ml (0-14)
[2023-01-09] MEDS ORDERED: MAGNESIUM SULFATE / D5W 1 GM/100 ML BAG IV ONE (20:08)
--- NOTE | 2023-01-09 20:10 | History & Physical Report ---
Date of Service January 09, 2023 Assessment & Plan (1) Acute respiratory failure with hypoxia: (2) Pulmonary edema: (3) Interstitial lung disease: (4) Hyperlipidemia: (5) Chronic deep vein thrombosis of left lower extremity: (6) Hypothyroidism (acquired): (7) GERD (gastroesophageal reflux disease): (8) Chronic anticoagulation: (9) CKD (chronic kidney disease), stage IV: (10) HTN (hypertension): (11) Diet-controlled diabetes mellitus: (12) Chronic back pain greater than 3 months duration: Plan Acute respiratory failure with hypoxia/pulmonary edema/interstitial lung disease- Admit to monitored bed Nasal cannula oxygen, titrate to keep pulse ox around 94% Pulmonary edema- The patient will be admitted to telemetry for serial cardiac enzymes, serial EKG's, cardiac rhythm monitoring and a 2-D echocardiogram with Dopplers. Furosemide 40 mg IV now, and every morning Follow renal function panel and magnesium Interstitial lung disease- Received Solu-Medrol 40 mg IV in ED, continue at 40 mg IV every 8 hours Azithromycin 5 mg IV daily Duonebs every 4 hours while awake and every 2 hours when necessary. Acute kidney injury on CKD- Creatinine 2.42, with base 1.63-1.71 Follow closely while diuresing Hypomagnesemia- Magnesium 1.6 on admission We will give total 2 g magnesium sulfate IV Chronic DVT left lower extremity- Continue Xarelto Parkinson's- Continue carbidopa levodopa Hypertension- Continue metoprolol succinate and aspirin Hypothyroidism- Continue levothyroxine GERD- Continue Dexilant/pantoprazole History of Present Illness Chief Complaint: The patient presents to the emergency department with complaint of generalized fatigue, weakness, ambulatory dysfunction and osteoarthritis pain, with ED concern regarding acute worsening of ambulatory dysfunction following ingestion of 100 mg of THC. Primary Care Provider: NO PCP The patient is a 77-year-old female with a past medical history including lumbar vertebral compression fractures, hyperlipidemia, kidney stones, reactive airway disease, DVT left lower extremity, thoracic compression fractures, hypothyroidism, GERD, hypertension, CKD stage IV, follicular lymphoma, secondary hyperparathyroidism of renal origin, UTI, Parkinson's and chronic anticoagulation with Xarelto. The patient has been undergoing a gradual decline in generalized strength, energy level, ambulatory function, that worsened after taking THC 100 mg earlier in the day today. She has a speech language assistant that comes in 4 hours a day Saturday through Saturday. She does not complain of shortness of breath, however, she is very short of breath during routine conversations during the interview. Her family member who is with her, feels that she has been getting worse over months and due to more acute worsening feels that the patient needs to be admitted. Allergies Allergy/AdvReac Type Severity Reaction Status Date / Time nitrofurantoin Allergy Intermediate HIVES,ITCHI Verified 01/09/23 18:49 NG azithromycin [From Zithromax] Allergy HIVES Verified 01/09/23 18:49 tramadol AdvReac Mild nausea Verified 01/09/23 18:49 Home Medications Medication Instructions Recorded Confirmed Type aspirin 81 mg tablet,delayed 81 mg PO QAM 06/06/18 01/09/23 History release denosumab 60 mg/mL subcutaneous 60 mg subcut Q6MO 02/25/19 01/09/23 History syringe lancets 33 gauge (Genomic ExpressionTouch Delica #100 ea 07/13/20 01/09/23 History Lancets) atorvastatin 80 mg tablet 80 mg PO HS #90 tabs 11/10/21 01/09/23 Rx blood sugar diagnostic (OneTouch #10 ea 12/08/21 01/09/23 History Ultra Blue Test Strip) albuterol sulfate 90 mcg/actuation 2 puff inhalation QID PRN 03/05/22 01/09/23 Rx aerosol inhaler (Ventolin HFA) shortness of breath or wheezing #6.7 grams calcium carbonate 500 mg calcium 500 mg PO QAM 06/29/22 01/09/23 History (1,250 mg) chewable tablet (Calcium 500) pyridoxine (vitamin B6) 100 mg 100 mg PO Q OTHER DAY 06/29/22 01/09/23 History tablet valacyclovir 500 mg tablet 500 mg PO DAILY PRN breakout 06/29/22 01/09/23 History fluticasone propionate 50 2 spray intranasal QAM PRN Allergy 09/06/22 01/09/23 Rx mcg/actuation nasal Symptoms #16 grams spray,suspension rivaroxaban 10 mg tablet (Xarelto) 10 mg PO DAILY #30 tabs 12/18/22 01/09/23 Rx albuterol sulfate 2.5 mg/3 mL 2.5 mg inhalation Q8H PRN 01/09/23 01/09/23 History (0.083 %) solution for nebulization Shortness Of Breath Or Wheezing carbidopa 10 mg-levodopa 100 mg 1.5 tab PO TID 01/09/23 01/09/23 History tablet cyanocobalamin (vitamin B-12) 500 500 mcg PO QAM 01/09/23 01/09/23 History mcg tablet dexlansoprazole 60 mg 60 mg PO QAM 01/09/23 01/09/23 History capsule,biphase delayed release (Dexilant) hydrocortisone acetate 25 mg 25 mg FL BID PRN Hemorrhoids 01/09/23 01/09/23 History rectal suppository (Anusol-HC) levothyroxine 88 mcg tablet 88 mcg PO DAILYBB 01/09/23 01/09/23 History metoprolol succinate 50 mg 50 mg PO QAM 01/09/23 01/09/23 History tablet,extended release 24 hr Past Med/Surg History Medical History (Updated 01/10/23 @ 01:47 by Maxim Chappell MD) Acute kidney injury Ankle edema, bilateral Arthritis Asymptomatic menopausal state Blood glucose abnormal Cardiomyopathy Cholelithiasis Chronic back pain greater than 3 months duration Chronic deep vein thrombosis of left lower extremity Chronic fatigue syndrome Chronic GERD Chronic kidney disease Chronic laryngitis Chronic pharyngitis Cigarette smoker motivated to quit Compression fracture of lumbar vertebra Constipation Cough Deep vein thrombosis of distal lower extremity Depression Dermatitis, eczematoid Diabetes mellitus (11/29/12) Dizziness DVT (deep venous thrombosis) Dyspnea on exertion Dysuria Gastropathy GERD (gastroesophageal reflux disease) GI bleed Hearing loss Hematuria Hematuria, microscopic Herpes simplex Hoarseness Hyperglycemia Hyperlipidemia Hypothyroidism Hypothyroidism (acquired) Interstitial lung disease Iron deficiency anemia Ischemic colitis Kidney stones Laryngitis Leg length discrepancy Lightheadedness Low back pain Lumbago Lumbar spinal stenosis Muscle spasm Nasal dryness Nicotine dependence NSTEMI (non-ST elevated myocardial infarction) 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 Osteopenia (11/29/12) Pneumonia RAD (reactive airway disease) with wheezing 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 Recurrent UTI Rib pain on right side Secondary hyperparathyroidism (of renal origin) Secondary hyperparathyroidism of renal origin Shortness of breath Sinusitis SNHL (sensorineural hearing loss) Solitary pulmonary nodule Stroke-like symptoms Subsequent non-ST elevation (NSTEMI) myocardial infarction Takotsubo syndrome Tendinitis of left rotator cuff Thyroid disease Tinnitus, bilateral Type 2 diabetes mellitus without complication UTI (urinary tract infection) Vertigo Surgical History History of back surgery History of History of D&C History of tubal ligation Hx of colonoscopy Family History Mother Leukemia Hypertension Father Myocardial infarction Diabetes Other Family history non-contributory Denies family history of Ovarian cancer Prostate cancer Breast cancer Lung cancer Social History Smoking Status: Current some day smoker Tobacco Type: Cigarettes Cigarettes Per Day: 1 cigarette every week; Second Hand Exposure: No; Do You Dip or Chew Tobacco: No; Hx Alcohol Use: No Hx Substance Use: No Preferred Language: Swedish Communication Ability: Effective Visual Impairment: No Limitations Hearing Ability: Use of Hearing Aid Bar Staff Required: No Beliefs That Will Affect Care: None marital status: Current Living Situation: Alone current occupational status: retired Feels Safe at Home: Yes Childhood Exposure to Second-Hand Smoke: Yes caffeine: No Dental Care, Regularly: No Physical Activity Frequency: Does not Exercise Seatbelt Use: always Sunscreen Use: No Assistive Devices: Oxygen - Continuous and Walker Review of Systems Review of Systems: The patient denies chest pain, palpitations, shortness of breath, dyspnea on exertion, cough, lower extremity swelling, sore throat, fevers, chills, sweats, nausea, vomiting, diarrhea , constipation, abdominal pain, pelvic pain, blood in urine or stool, dysuria, urinary frequency or urgency, lightheadedness, dizziness, headache, loss of consciousness, focal weakness, numbness or tingling in arms or legs, back or neck pain, or night sweats. The review of systems is otherwise negative other than for that already noted above, and at least 10 systems have been reviewed. Physical Exam Physical Exam: The patient is awake, alert and oriented 3, well developed and well nourished, normocephalic and atraumatic, lying in bed and in no acute distress. HEENT--PERRL, EOMI, mucous membranes and oropharynx dry. Neck--supple. No JVD. No bruits. Thyroid normal, trachea midline, no adenopathy. Heart--normal S1 and S2. No murmurs, rubs or gallops. Lungs--crackles throughout. Mild respiratory distress, no accessory muscle use. Abdomen--normal bowel sounds and soft. Nontender. Nondistended, no hernias or masses, no organomegaly. Extremities--no cyanosis or clubbing. No edema. Dermatologic--normal skin turgor, normal color, no abnormal lymph nodes, no rash. Neurologic--cranial nerves II through XII grossly intact. Rheumatologic--normal range of motion. Psychiatric--normal affect. Results & Data Results & Data Vital Signs (Past 12 Hours) Vital Signs Temp Pulse Pulse Resp BP Pulse Ox O2 Del Method 01/09/23 18:25 92 Room Air 01/09/23 18:01 75 18 92 Nasal Cannula 01/09/23 18:01 91 Nasal Cannula 01/09/23 17:35 82 01/09/23 17:18 92 Nasal Cannula 01/09/23 17:02 37.2 C 95 H 16 117/53 L 90 Room Air O2 Flow Rate 01/09/23 18:25 01/09/23 18:01 1 01/09/23 18:01 1 01/09/23 17:35 01/09/23 17:18 1 01/09/23 17:02 Laboratory Results Laboratory Results WBC 7.88 K/ul (4.8-10.8) 01/09/23 17:30 RBC 3.57 M/uL (4.20-5.40) L 01/09/23 17:30 Hgb 12.4 g/dl (12.0-16.0) 01/09/23 17:30 Hct 38.0 % (37.0-47.0) 01/09/23 17:30 MCV 106.4 fL (80.0-100.0) H 01/09/23 17:30 MCH 34.7 pg (25.0-34.0) H 01/09/23 17:30 MCHC 32.6 g/dL (32.0-36.0) 01/09/23 17:30 RDW Std Deviation 53.8 fL (36.4-46.3) H 01/09/23 17:30 RDW Coeff of Damien 13.7 % (11.5-14.5) 01/09/23 17:30 Plt Count 308 K/uL (130-400) 01/09/23 17:30 MPV 10.1 fL (9.4-12.4) 01/09/23 17:30 Immature Gran % (Auto) 0.3 % 01/09/23 17:30 Neut % (Auto) 66.7 % 01/09/23 17:30 Lymph % (Auto) 23.5 % 01/09/23 17:30 [place] % (Auto) 7.6 % 01/09/23 17:30 Eos % (Auto) 1.1 % 01/09/23 17:30 Baso % (Auto) 0.8 % 01/09/23 17:30 Neut # (Auto) 5.26 K/uL (1.40-6.50) 01/09/23 17:30 Lymph # (Auto) 1.85 K/uL (1.2-3.4) 01/09/23 17:30 [place] # (Auto) 0.60 K/uL (0.11-0.59) H 01/09/23 17:30 Eos # (Auto) 0.09 K/uL (0-0.50) 01/09/23 17:30 Baso # (Auto) 0.06 K/uL (0-0.2) 01/09/23 17:30 Immature Gran # (Auto) 0.02 K/uL (0.01-0.20) 01/09/23 17:30 Sodium 140 mmol/L (136-145) 01/09/23 17:30 Potassium 4.8 mmol/L (3.5-5.1) 01/09/23 17:30 Chloride 104 mmol/L (98-107) 01/09/23 17:30 Carbon Dioxide 30 mmol/L (21-32) 01/09/23 17:30 Anion Gap 6 (3-11) 01/09/23 17:30 BUN 35 mg/dl (6-23) H 01/09/23 17:30 Creatinine 2.42 mg/dl (0.6-1.2) H 01/09/23 17:30 Est Cr Clr Drug Dosing 15.5 ml/min 01/09/23 17:30 Est GFR ( Amer) 21.3 ml/min 01/09/23 17:30 Est GFR (Non-Af Amer) 18.4 ml/min 01/09/23 17:30 BUN/Creatinine Ratio 14.5 (10-20) 01/09/23 17:30 Glucose 106 mg/dl (70-99(Fasting)) H 01/09/23 17:30 Calcium 9.6 mg/dl (8.6-10.3) 01/09/23 17:30 Magnesium 1.6 mg/dl (1.7-2.4) L 01/09/23 17:30 Total Bilirubin 0.3 mg/dl (0.2-1.0) 01/09/23 17:30 AST 18 U/L (13-39) 01/09/23 17:30 ALT 3 U/L (7-52) L 01/09/23 17:30 Alkaline Phosphatase 88 U/L (34-104) 01/09/23 17:30 Troponin I High Sens 12.5 pg/ml (0-14) 01/09/23 17:30 Total Protein 7.4 gm/dl (6.0-8.3) 01/09/23 17:30 Albumin 4.1 gm/dl (3.4-5.0) 01/09/23 17:30 Globulin 3.3 gm/dl (2.5-4.0) 01/09/23 17:30 Albumin/Globulin Ratio 1.2 (0.9-2) 01/09/23 17:30 Urine Color Yellow 01/09/23 23:07 Urine Appearance Clear (Clear) 01/09/23 23:07 Urine pH 5.5 (4.5-7.5) 01/09/23 23:07 Ur Specific [place] 1.011 (1.000-1.030) 01/09/23 23:07 Urine Protein Negative (Negative) 01/09/23 23:07 Urine Glucose (UA) Negative (Negative) 01/09/23 23:07 Urine Ketones Negative (Negative) 01/09/23 23:07 Urine Blood Negative (Negative) 01/09/23 23:07 Urine Nitrite Negative (Negative) 01/09/23 23:07 Urine Bilirubin Negative (Negative) 01/09/23 23:07 Urine Urobilinogen Negative (Negative) 01/09/23 23:07 Ur Leukocyte Esterase Negative (Negative) 01/09/23 23:07 SARS-CoV-2, RNA, NAAT NEGATIVE (NEGATIVE) 01/09/23 Unknown Impressions Chest X-Ray 01/09/23 17:18 XR chest 1V portable HISTORY: hypoxia COMPARISON: Chest 04/11/2022. FINDINGS: There are low lung volumes. No pneumothorax. Trace bilateral pleural effusions. The heart is enlarged. There is progressive interstitial/vascular thickening consistent with edema. No new focal lung consolidations identified. Scoliosis again noted. There are surgical clips within the right neck. IMPRESSION: Mild cardiomegaly with interval progression of the interstitial/vascular th ickening consistent with pulmonary edema. ACT 112: Negative or not required by law. Electronically signed by: Kade Osborne M.D. 01/09/2023 6:08 PM Code Status & VTE Plan Code Status Full code VTE Prophylaxis Plan VTE Prophylaxis will be ordered: Yes PG Care Time/CCT Total # of Minutes Spent Total Time Spent with Patient: Total time spent is greater than 50% in coordination of care (as documented) at patient's floor/unit and/or counseling patient: Coding Level of Care Code 04689 INT INP/OBS CARE 3/75MIN Diagnoses Acute respiratory failure with hypoxia J96.01 Pulmonary edema J81.1 Interstitial lung disease J84.9 Hyperlipidemia E78.5 Chronic deep vein thrombosis of left lower extremity I82.502 Affected thrombotic vein of extremity: unspecified vein of extremity Hypothyroidism (acquired) E03.9 GERD (gastroesophageal reflux disease) K21.9 Chronic anticoagulation Z79.01 CKD (chronic kidney disease), stage IV N18.4 HTN (hypertension) I10 Hypertension type: essential hypertension Diet-controlled diabetes mellitus E11.9 Chronic back pain greater than 3 months duration M54.9; G89.29 (5) Chronic deep vein thrombosis of left lower extremity Affected thrombotic vein of extremity: unspecified vein of extremity Qualified Code(s): I82.502 - Chronic embolism and thrombosis of unspecified deep veins of left lower extremity (10) HTN (hypertension) Hypertension type: essential hypertension Qualified Code(s): I10 - Essential (primary) hypertension
[2023-01-09 23:41] LABS: Appearance Urine Clear (Clear); Bilirubin Urine Negative (Negative); Blood Urine Negative (Negative); Color Urine Yellow; Glucose Urine UA Negative (Negative); Ketones Urine Negative (Negative); Leukocyte Esterase Urine Negative (Negative); Nitrite Urine Negative (Negative); Protein Urine Negative (Negative); Specific Gravity Urine 1.011 (1.000-1.030); Urobilinogen Urine Negative (Negative); pH Urine 5.5 (4.5-7.5)
[2023-01-10] MEDS ORDERED: FUROSEMIDE 40 MG/4 ML VIAL IV ONE (01:02)
[2023-01-10] MEDS ORDERED: HYDROCORTISONE ACETATE 25 MG SUPP PR PRN (01:02)
[2023-01-10] MEDS ORDERED: ONDANSETRON INJ 2 MG/ML 2 ML VIAL IV PRN (01:02)
[2023-01-10] MEDS ORDERED: ACETAMINOPHEN 325 MG TAB PO PRN (01:02)
[2023-01-10] MEDS: CARBIDOPA/LEVODOP 10/100MG TAB PO SCH ×4 (01:48→20:35)
[2023-01-10] MEDS: ATORVASTATIN 40 MG TAB PO SCH ×2 (01:49→20:36)
[2023-01-10] MEDS: LEVOTHYROXINE SODIUM 88 MCG TABLET PO SCH (05:53)
[2023-01-10 06:41] LABS: Basophils # (auto) 0.01 K/uL (0-0.2); Basophils % (auto) 0.1 %; Hematocrit (blood only) 35.7 % (37.0-47.0); Hemoglobin 11.5 g/dl (12.0-16.0); Immature Granulocytes # (auto) 0.03 K/uL (0.01-0.20); Immature Granulocytes % (auto) 0.4 %; Lymphocytes # (auto) 1.84 K/uL (1.2-3.4); Lymphocytes % (auto) 24.8 %; Mean Corpuscular Hemoglobin 33.8 pg (25.0-34.0); Mean Corpuscular Hgb Conc 32.2 g/dL (32.0-36.0); Mean Platelet Volume 10.4 fL (9.4-12.4); Monocytes # (auto) 0.13 K/uL (0.11-0.59); Monocytes % (auto) 1.8 %; Neutrophils # (auto) 5.41 K/uL (1.40-6.50); Neutrophils % (auto) 72.9 %; Platelet Count 277 K/uL (130-400); RDW Coefficient of Variation 13.5 % (11.5-14.5); RDW Standard Deviation 52.6 fL (36.4-46.3); White Blood Count 7.42 K/ul (4.8-10.8)
[2023-01-10 06:58] LABS: Albumin Level 3.7 gm/dl (3.4-5.0); BUN Creatinine Ratio 20.4 (10-20); Calcium 9.1 mg/dl (8.6-10.3); Creatinine Clr Calc Pharmacy 15.8 ml/min; Est GFR (African American) 27.5 ml/min; Est GFR (Non-African American) 23.7 ml/min; Magnesium 2.1 mg/dl (1.7-2.4); Phosphorus 4.1 mg/dl (2.5-4.9); Potassium 4.5 mmol/L (3.5-5.1)
[2023-01-10] MEDS ORDERED: methylPREDNISolone 40 MG in SYRINGE 0 ML IV SCH ×2 (07:00→21:00)
[2023-01-10] MEDS: CYANOCOBALAMIN (B-12) 500 MCG TABLET PO SCH (08:07)
[2023-01-10] MEDS: RIVAROXABAN 10 MG TABLET PO SCH (08:07)
[2023-01-10] MEDS: ASPIRIN 81 MG ECTAB PO SCH (08:07)
[2023-01-10] MEDS: METOPROLOL SUCC 50MG EXT REL TAB PO SCH (08:07)
[2023-01-10] MEDS: PANTOprazole 40 MG TAB PO SCH (08:07)
[2023-01-10] MEDS: FUROSEMIDE 40 MG/4 ML VIAL IV SCH (08:10)
[2023-01-10] MEDS ORDERED: Nursing to Pharmacy Communication SCH (08:30)
--- NOTE | 2023-01-10 08:50 | Hospitalist Progress Note ---
Date of Service January 10, 2023 Assessment & Plan (1) Acute respiratory failure with hypoxia: Plan: ? of heart failure vs interstitial lung disease Nasal cannula oxygen, titrate to keep support pulse ox actively treat for diuresis with Furosemide 40 mg IV daily, pending echo Interstitial lung disease-Received Solu-Medrol 40 mg transition to prednisone on 01/11 Azithromycin 5 mg IV daily Duonebs every 4 hours while awake and every 2 hours when necessary. (2) Chronic deep vein thrombosis of left lower extremity: Plan: Chronic DVT left lower extremity- Continue Xarelto is on this chronically replete electrolytes especially magnesium (3) CKD (chronic kidney disease), stage IV: Plan: LINDSEY with CKD 4 (4) Hypothyroidism (acquired): Plan: Hypothyroidism- Continue levothyroxine (5) HTN (hypertension): Plan: Chronic and stable, Hypertension- Continue metoprolol succinate and aspirin (6) Diet-controlled diabetes mellitus: (7) Chronic back pain greater than 3 months duration: Plan Parkinson's- Continue carbidopa levodopa GERD- Continue Dexilant/pantoprazole Admission and Anticipated Discharge Date Admission Date: January 09, 2023 Subjective this pt is weak but doing well, respiratory failure is improving Physical Exam Physical Exam: less shortness of breath, lungs with scant wheezes, no cough on exam but pt complains of cough Results & Data Results & Data Vital Signs (Past 12 Hours) Vital Signs Temp Pulse Pulse Resp BP Pulse Ox Pulse Ox 01/10/23 07:44 97.7 F 72 18 117/57 L 98 01/10/23 01:11 78 01/10/23 02:33 97.5 F L 73 18 111/69 100 01/10/23 01:02 94 01/10/23 01:30 01/10/23 01:19 97.7 F 69 18 128/74 94 01/10/23 00:00 74 21 131/51 L 98 01/09/23 22:08 79 18 116/68 97 O2 Del Method O2 Del Method O2 Flow Rate O2 Flow Rate 01/10/23 07:44 Nasal Cannula 2.0 01/10/23 01:11 01/10/23 02:33 Nasal Cannula 2 01/10/23 01:02 Nasal Cannula 2 01/10/23 01:30 Nasal Cannula 2 01/10/23 01:19 Nasal Cannula 2 01/10/23 00:00 01/09/23 22:08 Room Air Laboratory Results reviewed CBC reviewed chemistry PG Care Time/CCT Total # of Minutes Spent Total Time Spent with Patient: Total time spent is greater than 50% in coordination of care (as documented) at patient's floor/unit and/or counseling patient: Coding Level of Care Code 70084 SUB INP/OBS CARE 3/50MIN Diagnoses Acute respiratory failure with hypoxia J96.01 Chronic deep vein thrombosis of left lower extremity I82.502 Affected thrombotic vein of extremity: unspecified vein of extremity CKD (chronic kidney disease), stage IV N18.4 Hypothyroidism (acquired) E03.9 HTN (hypertension) I10 Hypertension type: essential hypertension Diet-controlled diabetes mellitus E11.9 Chronic back pain greater than 3 months duration M54.9; G89.29 (2) Chronic deep vein thrombosis of left lower extremity Affected thrombotic vein of extremity: unspecified vein of extremity Qualified Code(s): I82.502 - Chronic embolism and thrombosis of unspecified deep veins of left lower extremity (5) HTN (hypertension) Hypertension type: essential hypertension Qualified Code(s): I10 - Essential (primary) hypertension
[2023-01-10] MEDS ORDERED: CALCIUM CARBONATE 1250MG TAB PO SCH (09:00)
[2023-01-10] MEDS ORDERED: AZITHROMYCIN 500 MG in DEXTROSE 5% 250 ML IV SCH (09:00)
[2023-01-10] MEDS: ACETAMINOPHEN 500 MG TAB PO SCH ×2 (13:08→20:35)
--- NOTE | 2023-01-10 14:05 | XRay Report ---
XR knee LT 1 or 2V routine CLINICAL HISTORY: pain cannot stand TECHNIQUE: 2 views of the left knee were obtained. Comparison: Comparison is made to knee radiograph 04/19/2022 FINDINGS: There is no evidence of an acute fracture. A sclerotic lesion is in the lateral femoral head, unchang ed from prior exam. Femoral medullary zack is seen. Mild degenerative changes are seen in the knee mickie nt most prominently in the medial compartment. No joint effusion is seen. Vascular calcifications are noted. IMPRESSION: Mild degenerative changes and vascular calcifications are seen. ACT 112: Negative or not required by law. Electronically signed by: Jorge Tierney M.D. 01/10/2023 2:04 PM
--- NOTE | 2023-01-10 14:30 | XCELERA ---
[id number] \\[id number]
--- NOTE | 2023-01-10 14:32 | Electrocardiogram Report ---
Test Reason : Blood Pressure : / mmHG Vent. Rate : 083 BPM Atrial Rate : 083 BPM P-R Int : 176 ms QRS Dur : 082 ms QT Int : 364 ms P-R-T Axes : 043 -13 041 degrees QTc Int : 427 ms Normal sinus rhythm possible Inferior infarct (cited on or before 20-FEB-2022) Abnormal ECG When compared with ECG of 01-MAR-2022 10:30, Borderline criteria for Lateral infarct are no longer Present ST no longer depressed in Anterior leads T wave amplitude has increased in Anterior leads Confirmed by Chico Garcia ([id number]) on 01/10/2023 2:31:55 PM Referred By: REFERRED SELF Confirmed By:Gio Garcia
--- NOTE | 2023-01-10 15:36 | XRay Report ---
XR knee RT 1 or 2V routine CLINICAL HISTORY: pain cannot stand TECHNIQUE: 2 views of the right knee were obtained. Comparison: None available at the time of this dictation. FINDINGS: There is no evidence of an acute fracture. Sclerotic focus is seen in the lateral femoral condyle. Korin int spaces are well-preserved. No joint effusion is seen. No soft tissue abnormality is seen. IMPRESSION: No evidence of acute osseous injury. ACT 112: Negative or not required by law. Electronically signed by: Jorge Tierney M.D. 01/10/2023 3:34 PM
[2023-01-10] MEDS: DOCUSATE SODIUM 100 MG CAP PO SCH (16:39)
[2023-01-10] MEDS: CALCIUM CARBONATE 1250MG TAB PO SCH (20:35)
[2023-01-10] MEDS: DICLOFENAC SOD 1% GEL 100 GM TUBE EXT SCH (20:35)
[2023-01-11] MEDS: LEVOTHYROXINE SODIUM 88 MCG TABLET PO SCH (06:30)
[2023-01-11] MEDS: METOPROLOL SUCC 50MG EXT REL TAB PO SCH (07:27)
[2023-01-11] MEDS: PANTOprazole 40 MG TAB PO SCH (07:27)
[2023-01-11] MEDS: FUROSEMIDE 40 MG/4 ML VIAL IV SCH (07:27)
[2023-01-11] MEDS: CYANOCOBALAMIN (B-12) 500 MCG TABLET PO SCH (07:27)
[2023-01-11] MEDS: PYRIDOXINE HCL 50 MG TAB PO SCH (07:27)
[2023-01-11] MEDS: ACETAMINOPHEN 500 MG TAB PO SCH ×3 (07:28→20:35)
[2023-01-11] MEDS: RIVAROXABAN 10 MG TABLET PO SCH (07:28)
[2023-01-11] MEDS: ASPIRIN 81 MG ECTAB PO SCH (07:28)
[2023-01-11] MEDS: DOCUSATE SODIUM 100 MG CAP PO SCH (07:28)
[2023-01-11] MEDS: DICLOFENAC SOD 1% GEL 100 GM TUBE EXT SCH ×4 (07:29→20:38)
[2023-01-11] MEDS: CARBIDOPA/LEVODOP 10/100MG TAB PO SCH ×3 (07:29→20:37)
[2023-01-11 07:31] LABS: Albumin Level 3.5 gm/dl (3.4-5.0); BUN Creatinine Ratio 25.7 (10-20); Calcium 9.8 mg/dl (8.6-10.3); Creatinine Clr Calc Pharmacy 11.2 ml/min; Est GFR (African American) 18.8 ml/min; Est GFR (Non-African American) 16.3 ml/min; Magnesium 2.2 mg/dl (1.7-2.4); Phosphorus 4.3 mg/dl (2.5-4.9); Potassium 4.7 mmol/L (3.5-5.1)
[2023-01-11 07:32] LABS: Basophils # (auto) 0.01 K/uL (0-0.2); Basophils % (auto) 0.1 %; Hematocrit (blood only) 33.3 % (37.0-47.0); Hemoglobin 11.1 g/dl (12.0-16.0); Immature Granulocytes # (auto) 0.13 K/uL (0.01-0.20); Immature Granulocytes % (auto) 0.8 %; Lymphocytes # (auto) 1.81 K/uL (1.2-3.4); Lymphocytes % (auto) 11.5 %; Mean Corpuscular Hemoglobin 34.3 pg (25.0-34.0); Mean Corpuscular Hgb Conc 33.3 g/dL (32.0-36.0); Mean Corpuscular Volume 102.8 fL (80.0-100.0); Mean Platelet Volume 10.8 fL (9.4-12.4); Monocytes # (auto) 0.33 K/uL (0.11-0.59); Monocytes % (auto) 2.1 %; Neutrophils # (auto) 13.51 K/uL (1.40-6.50); Neutrophils % (auto) 85.5 %; Platelet Count 305 K/uL (130-400); RDW Coefficient of Variation 13.6 % (11.5-14.5); RDW Standard Deviation 51.9 fL (36.4-46.3); Red Blood Count 3.24 M/uL (4.20-5.40); White Blood Count 15.79 K/ul (4.8-10.8)
[2023-01-11] MEDS ORDERED: predniSONE 20 MG TAB PO SCH (09:00)
[2023-01-11] MEDS: ALBUT/IPRATROP 3MG/0.5MG NEB 3 ML VIAL NEB SCH ×3 (10:48→19:00)
--- NOTE | 2023-01-11 12:46 | CT Scan Report ---
CT OF THE CHEST WITHOUT IV CONTRAST CLINICAL HISTORY: Evaluate interstitial lung disease vs heart failure. COMPARISON STUDY: Chest CT December 04, 2018 and chest radiograph January 09, 2023. CT DOSE: 423.70 mGy.cm TECHNIQUE: Axial images of the chest were obtained without IV contrast. Images were reviewed in the axial, sagittal, and coronal planes. IV contrast was not administered for this examination. Automat ed exposure control was utilized for the study. A dose lowering technique was utilized adhering to t he principles of ALARA. FINDINGS: No enlarged axillary, mediastinal or hilar lymph nodes are present. There is mild cardiome charlee. Extensive mitral annular calcification is noted. There is mild dilatation of the central pulmon eran arteries. No pericardial effusion is present. The central airways are patent. No pneumothorax or pleural effusion. Moderate upper lobe predominant emphysema is noted. There are also lower lobe predo minant subpleural groundglass opacities with reticulation, similar to CT of December 04, 2018. No interlo bular septal thickening is present. There is no consolidation to suggest pneumonia. There is no signi ficant bronchiectasis. Several old thoracic spine compression fractures are noted. There are gallston es within the gallbladder. Water attenuation lesions within visualized portions of the kidneys favor cysts. IMPRESSION: 1. Moderate upper lobe predominant emphysema. Lower lobe predominant groundglass opacities with subpl eural reticulation, similar to CT of December 04, 2018. The findings favor interstitial lung disease. No CT evidence for congestive heart failure. 2. Mild cardiomegaly. Dilatation of the central pulmonary arteries raises the possibility of pulmonar y arterial hypertension. ACT 112: Negative or not required by law. Electronically signed by: Nik Will M.D. 01/11/2023 12:44 PM
[2023-01-11] MEDS ORDERED: CeleBREX 200 MG CAP PO ONE (13:45)
--- NOTE | 2023-01-11 18:03 | Hospitalist Progress Note ---
Date of Service January 11, 2023 Assessment & Plan (1) Acute respiratory failure with hypoxia: Plan: With acute kidney injury after diuresis but persistent shortness of breath felt most of her shortness of breath was related to her baseline interstitial lung disease CT chest noncontrast on 721 also does not show infiltrate or heart failure but does show changes consistent with COPD and interstitial changes also Nasal cannula oxygen, titrate to keep support pulse ox with acute kidney injury with CKD4 secondary to diuresis, this has been held echocardiogram rules out heart failure as an etiology Interstitial lung disease-Received Solu-Medrol 40 mg transition to prednisone on 01/11 Azithromycin 5 mg IV daily Duonebs every 4 hours while awake and every 2 hours when necessary.adding breo (2) Chronic deep vein thrombosis of left lower extremity: Plan: Chronic DVT left lower extremity- has renal function decline with lindsey, will hold xarelto and await renal function improvement replete electrolytes especially magnesium (3) CKD (chronic kidney disease), stage IV: Plan: LINDSEY with CKD 4 (4) Hypothyroidism (acquired): Plan: Hypothyroidism- Continue levothyroxine (5) HTN (hypertension): Plan: Chronic and stable, Hypertension- Continue metoprolol succinate and aspirin (6) Diet-controlled diabetes mellitus: (7) Chronic back pain greater than 3 months duration: Plan Parkinson's- Continue carbidopa levodopa GERD- Continue Dexilant/pantoprazole Admission and Anticipated Discharge Date Admission Date: January 09, 2023 Subjective pt family has questions about iron levels and overall concerns of cough pt with some right basilar crackles, no issues with concerns for aspiration and CT does not show RLL infiltrate Physical Exam Physical Exam: less shortness of breath, lungs with scant wheezes, no cough on exam right basilar rales Results & Data Results & Data Vital Signs (Past 12 Hours) Vital Signs Temp Pulse Pulse Resp BP Pulse Ox O2 Del Method 01/11/23 16:24 97.7 F 89 18 102/63 93 Room Air 01/11/23 15:33 88 20 93 Room Air 01/11/23 11:26 97.5 F L 80 18 136/72 92 Room Air 01/11/23 10:50 20 Room Air 01/11/23 08:00 75 01/11/23 08:00 Room Air 01/11/23 07:25 97.5 F L 75 18 111/68 94 Room Air Laboratory Results Reviewed CBC Reviewed chemistry PG Care Time/CCT Total # of Minutes Spent Total Time Spent with Patient: Total time spent is greater than 50% in coordination of care (as documented) at patient's floor/unit and/or counseling patient: Coding Level of Care Code 64217 SUB INP/OBS CARE 2/35MIN Diagnoses Acute respiratory failure with hypoxia J96.01 Chronic deep vein thrombosis of left lower extremity I82.502 Affected thrombotic vein of extremity: unspecified vein of extremity CKD (chronic kidney disease), stage IV N18.4 Hypothyroidism (acquired) E03.9 HTN (hypertension) I10 Hypertension type: essential hypertension Diet-controlled diabetes mellitus E11.9 Chronic back pain greater than 3 months duration M54.9; G89.29 (2) Chronic deep vein thrombosis of left lower extremity Affected thrombotic vein of extremity: unspecified vein of extremity Qualified Code(s): I82.502 - Chronic embolism and thrombosis of unspecified deep veins of left lower extremity (5) HTN (hypertension) Hypertension type: essential hypertension Qualified Code(s): I10 - Essential (primary) hypertension
[2023-01-11] MEDS: CALCIUM CARBONATE 1250MG TAB PO SCH (20:36)
[2023-01-11] MEDS: ATORVASTATIN 40 MG TAB PO SCH (20:36)
[2023-01-12] MEDS ORDERED: LACTATED RINGER'S 500 ML IV ONE (03:34)
[2023-01-12] MEDS: LEVOTHYROXINE SODIUM 88 MCG TABLET PO SCH (06:05)
[2023-01-12] MEDS: ALBUT/IPRATROP 3MG/0.5MG NEB 3 ML VIAL NEB SCH ×4 (07:14→18:55)
[2023-01-12 07:33] LABS: Basophils # (auto) 0.01 K/uL (0-0.2); Basophils % (auto) 0.1 %; Hematocrit (blood only) 31.8 % (37.0-47.0); Hemoglobin 10.4 g/dl (12.0-16.0); Immature Granulocytes # (auto) 0.07 K/uL (0.01-0.20); Immature Granulocytes % (auto) 0.6 %; Lymphocytes # (auto) 2.16 K/uL (1.2-3.4); Lymphocytes % (auto) 18.6 %; Mean Corpuscular Hemoglobin 34.1 pg (25.0-34.0); Mean Corpuscular Hgb Conc 32.7 g/dL (32.0-36.0); Mean Corpuscular Volume 104.3 fL (80.0-100.0); Mean Platelet Volume 10.7 fL (9.4-12.4); Monocytes # (auto) 0.77 K/uL (0.11-0.59); Monocytes % (auto) 6.6 %; Neutrophils # (auto) 8.63 K/uL (1.40-6.50); Neutrophils % (auto) 74.1 %; Platelet Count 265 K/uL (130-400); Red Blood Count 3.05 M/uL (4.20-5.40); White Blood Count 11.64 K/ul (4.8-10.8)
[2023-01-12] MEDS: CARBIDOPA/LEVODOP 10/100MG TAB PO SCH ×3 (08:13→20:01)
[2023-01-12] MEDS: CYANOCOBALAMIN (B-12) 500 MCG TABLET PO SCH (08:14)
[2023-01-12] MEDS: ACETAMINOPHEN 500 MG TAB PO SCH ×3 (08:14→20:01)
[2023-01-12] MEDS: DOCUSATE SODIUM 100 MG CAP PO SCH (08:14)
[2023-01-12] MEDS: ASPIRIN 81 MG ECTAB PO SCH (08:15)
[2023-01-12] MEDS: predniSONE 20 MG TAB PO SCH (08:15)
[2023-01-12] MEDS: PANTOprazole 40 MG TAB PO SCH ×2 (08:15→20:01)
[2023-01-12] MEDS: DICLOFENAC SOD 1% GEL 100 GM TUBE EXT SCH ×4 (08:18→20:01)
[2023-01-12] MEDS: METOPROLOL SUCC 50MG EXT REL TAB PO SCH (09:16)
[2023-01-12 10:06] LABS: Albumin Level 3.1 gm/dl (3.4-5.0); BUN Creatinine Ratio 21.8 (10-20); Calcium 9.2 mg/dl (8.6-10.3); Est GFR (African American) 10.7 ml/min; Est GFR (Non-African American) 9.3 ml/min; Magnesium 2.3 mg/dl (1.7-2.4); Phosphorus 5.4 mg/dl (2.5-4.9); Potassium 4.3 mmol/L (3.5-5.1)
[2023-01-12] MEDS: SODIUM CHLORIDE 0.9% 1000ML 1,000 ML IV SCH ×2 (11:01→23:53)
[2023-01-12 15:39] LABS: Appearance Urine Cloudy (Clear); Bacteria Urine Automated 1+ (Negative); Bilirubin Urine Negative (Negative); Blood Urine 3+ (Negative); Color Urine Yellow; Glucose Urine UA Negative (Negative); Ketones Urine Negative (Negative); Leukocyte Esterase Urine 1+ (Negative); Nitrite Urine Negative (Negative); Protein Urine Negative (Negative); Specific Gravity Urine 1.014 (1.000-1.030); Urobilinogen Urine Negative (Negative)
[2023-01-12 15:42] LABS: BUN Creatinine Ratio 23.1 (10-20); Calcium 8.5 mg/dl (8.6-10.3); Est GFR (African American) 10.8 ml/min; Est GFR (Non-African American) 9.3 ml/min; Potassium 4.2 mmol/L (3.5-5.1)
[2023-01-12 15:55] LABS: RBC Urine Automated 0-4 /hpf (0-4)
[2023-01-12] MEDS: ATORVASTATIN 40 MG TAB PO SCH (20:01)
[2023-01-12] MEDS: CALCIUM CARBONATE 1250MG TAB PO SCH (20:02)
[2023-01-13] MEDS: LEVOTHYROXINE SODIUM 88 MCG TABLET PO SCH (05:40)
[2023-01-13 07:13] LABS: BUN Creatinine Ratio 28.2 (10-20); Calcium 8.5 mg/dl (8.6-10.3); Creatinine Clr Calc Pharmacy 9.6 ml/min; Est GFR (African American) 14.9 ml/min; Est GFR (Non-African American) 12.8 ml/min
[2023-01-13] MEDS: ALBUT/IPRATROP 3MG/0.5MG NEB 3 ML VIAL NEB SCH ×4 (07:17→19:21)
[2023-01-13] MEDS: ACETAMINOPHEN 500 MG TAB PO SCH ×3 (08:53→20:01)
[2023-01-13] MEDS: CYANOCOBALAMIN (B-12) 500 MCG TABLET PO SCH (08:55)
[2023-01-13] MEDS: PANTOprazole 40 MG TAB PO SCH ×2 (08:55→20:01)
[2023-01-13] MEDS: ASPIRIN 81 MG ECTAB PO SCH (08:55)
[2023-01-13] MEDS: CARBIDOPA/LEVODOP 10/100MG TAB PO SCH ×3 (08:55→20:02)
[2023-01-13] MEDS: predniSONE 20 MG TAB PO SCH (08:56)
[2023-01-13] MEDS: METOPROLOL SUCC 50MG EXT REL TAB PO SCH (08:56)
[2023-01-13] MEDS: PYRIDOXINE HCL 50 MG TAB PO SCH (08:57)
[2023-01-13] MEDS: DICLOFENAC SOD 1% GEL 100 GM TUBE EXT SCH ×4 (08:57→20:02)
[2023-01-13] MEDS: DOCUSATE SODIUM 100 MG CAP PO SCH (09:33)
[2023-01-13] MEDS ORDERED: SODIUM CHLORIDE 0.65% NA SOLN 45 ML (OCEAN) ONE (11:01)
--- NOTE | 2023-01-13 14:34 | Hospitalist Progress Note ---
Date of Service January 13, 2023 Assessment & Plan (1) Acute respiratory failure with hypoxia: Plan: With acute kidney injury after diuresis but persistent shortness of breath felt most of her shortness of breath was related to her baseline interstitial lung disease CT chest noncontrast on 721 also does not show infiltrate or heart failure but does show changes consistent with COPD and interstitial changes also Nasal cannula oxygen, titrate to keep support pulse ox with acute kidney injury with CKD4 secondary to diuresis, this has been held echocardiogram rules out heart failure as an etiology Interstitial lung disease-Received Solu-Medrol 40 mg transition to prednisone on 01/11 now on 20 mg Azithromycin 5oo mg IV daily Duonebs every 4 hours while awake and every 2 hours when necessary.adding breo (2) Chronic deep vein thrombosis of left lower extremity: Plan: Chronic DVT left lower extremity- has renal function decline with lindsey, will hold xarelto and await renal function improvement replete electrolytes especially magnesium (3) CKD (chronic kidney disease), stage IV: Plan: LINDSEY with CKD 4, improving (4) Hypothyroidism (acquired): Plan: Hypothyroidism- Continue levothyroxine (5) HTN (hypertension): Plan: Chronic and stable, Hypertension- Continue metoprolol succinate and aspirin (6) Diet-controlled diabetes mellitus: (7) Chronic back pain greater than 3 months duration: Plan Parkinson's- Continue carbidopa levodopa GERD- Continue Dexilant/pantoprazole Admission and Anticipated Discharge Date Admission Date: January 09, 2023 Subjective pt family at the bedside updated to course. LINDSEY is improving , will stop ivf and follow Physical Exam Physical Exam: sob resoved with steroids, will convert to LABA and inhaled steroids 01/14/23 right basilar rales Results & Data Results & Data Vital Signs (Past 12 Hours) Vital Signs Temp Pulse Pulse Resp BP BP Pulse Ox 01/13/23 13:45 01/13/23 10:51 97.9 F 78 18 100/61 100 01/13/23 10:48 83 18 93 01/13/23 09:29 85 01/13/23 09:21 103/57 L 01/13/23 07:18 89 18 93 01/13/23 04:18 98.4 F 84 23 121/66 92 O2 Del Method O2 Flow Rate 01/13/23 13:45 Room Air 01/13/23 10:51 Room Air 01/13/23 10:48 Room Air 01/13/23 09:29 01/13/23 09:21 01/13/23 07:18 Room Air 01/13/23 04:18 Nasal Cannula 1 Laboratory Results review prp reviewed ua PG Care Time/CCT Total # of Minutes Spent Total Time Spent with Patient: Total time spent is greater than 50% in coordination of care (as documented) at patient's floor/unit and/or counseling patient: Coding Level of Care Code 77072 SUB INP/OBS CARE 2/35MIN Diagnoses Acute respiratory failure with hypoxia J96.01 Chronic deep vein thrombosis of left lower extremity I82.502 Affected thrombotic vein of extremity: unspecified vein of extremity CKD (chronic kidney disease), stage IV N18.4 Hypothyroidism (acquired) E03.9 HTN (hypertension) I10 Hypertension type: essential hypertension Diet-controlled diabetes mellitus E11.9 Chronic back pain greater than 3 months duration M54.9; G89.29 (2) Chronic deep vein thrombosis of left lower extremity Affected thrombotic vein of extremity: unspecified vein of extremity Qualified Code(s): I82.502 - Chronic embolism and thrombosis of unspecified deep veins of left lower extremity (5) HTN (hypertension) Hypertension type: essential hypertension Qualified Code(s): I10 - Essential (primary) hypertension
[2023-01-13] MEDS: CALCIUM CARBONATE 1250MG TAB PO SCH (20:00)
[2023-01-13] MEDS: ATORVASTATIN 40 MG TAB PO SCH (20:03)
[2023-01-14] MEDS: LEVOTHYROXINE SODIUM 88 MCG TABLET PO SCH (05:39)
[2023-01-14] MEDS: ALBUT/IPRATROP 3MG/0.5MG NEB 3 ML VIAL NEB SCH ×4 (07:04→20:33)
[2023-01-14] MEDS: DOCUSATE SODIUM 100 MG CAP PO SCH (08:41)
[2023-01-14] MEDS: ASPIRIN 81 MG ECTAB PO SCH (08:42)
[2023-01-14] MEDS: DICLOFENAC SOD 1% GEL 100 GM TUBE EXT SCH ×4 (08:42→21:38)
[2023-01-14] MEDS: predniSONE 20 MG TAB PO SCH (08:42)
[2023-01-14] MEDS: METOPROLOL SUCC 50MG EXT REL TAB PO SCH (08:42)
[2023-01-14] MEDS: CYANOCOBALAMIN (B-12) 500 MCG TABLET PO SCH (08:43)
[2023-01-14] MEDS: PANTOprazole 40 MG TAB PO SCH ×2 (08:43→21:35)
[2023-01-14] MEDS: CARBIDOPA/LEVODOP 10/100MG TAB PO SCH ×3 (08:43→21:38)
[2023-01-14] MEDS: ACETAMINOPHEN 500 MG TAB PO SCH ×3 (08:44→21:40)
[2023-01-14 08:59] LABS: BUN Creatinine Ratio 27.5 (10-20); Creatinine Clr Calc Pharmacy 12.1 ml/min; Est GFR (African American) 19.7 ml/min
[2023-01-14] MEDS: FLUTICASONE/VILANTEROL 100/25MCG 14 PUFFS/INHALER INH SCH (10:43)
[2023-01-14] MEDS ORDERED: MEROPENEM 500 MG in SYRINGE 0 ML IV SCH (10:45)
[2023-01-14] MEDS: ERTAPENEM SODIUM 500 MG in SYRINGE 0 ML IV SCH (11:38)
--- NOTE | 2023-01-14 16:51 | Hospitalist Progress Note ---
Date of Service January 14, 2023 Assessment & Plan (1) Acute respiratory failure with hypoxia: Plan: With acute kidney injury after diuresis but persistent shortness of breath felt most of her shortness of breath was related to her baseline interstitial lung disease CT chest noncontrast on 721 also does not show infiltrate or heart failure but does show changes consistent with COPD and interstitial changes also Nasal cannula oxygen, titrate to keep support pulse ox with acute kidney injury with CKD4 secondary to diuresis, echocardiogram rules out heart failure as an etiology Interstitial lung disease-Received Solu-Medrol 40 mg transition to prednisone on 01/11 now on 20 mg Duonebs every 4 hours while awake and every 2 hours when necessary.adding breo (2) Chronic deep vein thrombosis of left lower extremity: Plan: Chronic DVT left lower extremity- has renal function decline with lindsey, discussed anticoagulation with Dr Powell, recommends that should be off xarelto with renal issues, previous bleeding on eliquis and issues with wide swings in compliance with coumadin, at this time Dr powell feels pt should just be on aspirin 81 mg a day (3) CKD (chronic kidney disease), stage IV: Plan: LINDSEY with CKD 4, improving (4) Infection due to ESBL-producing Escherichia coli: Plan: Pt with esbl ecoli will have on ertapenem, also sensitive to augmentin can continue as po once discharged (5) Hypothyroidism (acquired): Plan: Hypothyroidism- Continue levothyroxine Plan Parkinson's- Continue carbidopa levodopa GERD- Continue Dexilant/pantoprazole Admission and Anticipated Discharge Date Admission Date: January 09, 2023 Subjective pt is feeling well, no issues with fluid retention LINDSEY is improving , will not add ivf but allow renal function to recover Physical Exam Physical Exam: sob resoved with steroids, will convert to LABA and inhaled steroids 01/14/23 right basilar rales pt with minor lower extremity Results & Data Results & Data Vital Signs (Past 12 Hours) Vital Signs Temp Pulse Resp BP BP Pulse Ox O2 Del Method 01/14/23 15:13 79 16 97 Room Air 01/14/23 15:10 97.7 F 79 19 107/65 93 Room Air 01/14/23 10:56 77 15 92 Room Air 01/14/23 07:40 Room Air 01/14/23 07:27 97.5 F L 82 14 125/70 93 Room Air 01/14/23 07:07 78 16 93 Room Air Laboratory Results review prp PG Care Time/CCT Total # of Minutes Spent Total Time Spent with Patient: Total time spent is greater than 50% in coordination of care (as documented) at patient's floor/unit and/or counseling patient: Coding Level of Care Code 18855 SUB INP/OBS CARE 2/35MIN Diagnoses Acute respiratory failure with hypoxia J96.01 Chronic deep vein thrombosis of left lower extremity I82.502 Affected thrombotic vein of extremity: unspecified vein of extremity CKD (chronic kidney disease), stage IV N18.4 Infection due to ESBL-producing Escherichia coli A49.8; Z16.12 Hypothyroidism (acquired) E03.9 (2) Chronic deep vein thrombosis of left lower extremity Affected thrombotic vein of extremity: unspecified vein of extremity Qualified Code(s): I82.502 - Chronic embolism and thrombosis of unspecified deep veins of left lower extremity
[2023-01-14] MEDS: CALCIUM CARBONATE 1250MG TAB PO SCH (21:35)
[2023-01-14] MEDS: ATORVASTATIN 40 MG TAB PO SCH (21:37)
[2023-01-15] MEDS ORDERED: ALBUT/IPRATROP 3MG/0.5MG NEB 3 ML VIAL NEB PRN (02:13)
[2023-01-15] MEDS: LEVOTHYROXINE SODIUM 88 MCG TABLET PO SCH (05:49)
[2023-01-15 08:09] LABS: BUN Creatinine Ratio 28.9 (10-20); Calcium 8.8 mg/dl (8.6-10.3); Creatinine Clr Calc Pharmacy 15.8 ml/min; Est GFR (African American) 27.3 ml/min; Est GFR (Non-African American) 23.6 ml/min; Potassium 4.1 mmol/L (3.5-5.1)
[2023-01-15] MEDS: CARBIDOPA/LEVODOP 10/100MG TAB PO SCH ×3 (08:36→19:53)
[2023-01-15] MEDS: predniSONE 20 MG TAB PO SCH (08:37)
[2023-01-15] MEDS: PANTOprazole 40 MG TAB PO SCH ×2 (08:37→19:55)
[2023-01-15] MEDS: CYANOCOBALAMIN (B-12) 500 MCG TABLET PO SCH (08:37)
[2023-01-15] MEDS: PYRIDOXINE HCL 50 MG TAB PO SCH (08:38)
[2023-01-15] MEDS: DICLOFENAC SOD 1% GEL 100 GM TUBE EXT SCH ×4 (08:38→19:55)
[2023-01-15] MEDS: ASPIRIN 81 MG ECTAB PO SCH (08:38)
[2023-01-15] MEDS: FLUTICASONE/VILANTEROL 100/25MCG 14 PUFFS/INHALER INH SCH (08:39)
[2023-01-15] MEDS: DOCUSATE SODIUM 100 MG CAP PO SCH (08:41)
[2023-01-15] MEDS: METOPROLOL SUCC 50MG EXT REL TAB PO SCH (08:41)
[2023-01-15] MEDS: ACETAMINOPHEN 500 MG TAB PO SCH ×3 (08:41→20:01)
[2023-01-15] MEDS: ERTAPENEM SODIUM 500 MG in SYRINGE 0 ML IV SCH (11:26)
[2023-01-15] MEDS: ATORVASTATIN 40 MG TAB PO SCH (19:52)
[2023-01-15] MEDS: CALCIUM CARBONATE 1250MG TAB PO SCH (19:53)
--- NOTE | 2023-01-15 20:11 | Discharge Summary ---
Hospitalized 01/09/2023 to 01/16/2023 Discharged Date of Service January 16, 2023 Admission HPI Per Admitting Provider The patient is a 77-year-old female with a past medical history including lumbar vertebral compression fractures, hyperlipidemia, kidney stones, reactive airway disease, DVT left lower extremity, thoracic compression fractures, hypothyroidism, GERD, hypertension, CKD stage IV, follicular lymphoma, secondary hyperparathyroidism of renal origin, UTI, Parkinson's and chronic anticoagulation with Xarelto. The patient has been undergoing a gradual decline in generalized strength, energy level, ambulatory function, that worsened after taking THC 100 mg earlier in the day today. 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 She does not complain of shortness of breath, however, she is very short of breath during routine conversations during the interview. Her family member who is with her, feels that she has been getting worse over months and due to more acute worsening feels that the patient needs to be admitted. Principal Diagnosis Acute Hypoxemic Respiratory Failure due to Pulmonary Edema Discharge Data Allergies Allergy/AdvReac Type Severity Reaction Status Date / Time nitrofurantoin Allergy Intermediate HIVES,ITCHI Verified 01/09/23 18:49 NG azithromycin [From Zithromax] Allergy HIVES Verified 01/09/23 18:49 tramadol AdvReac Mild nausea Verified 01/09/23 18:49 Consultations 01/09/23 18:37 ED Decision to Admit Stat Ordered Studies 01/11/23 08:15 CT chest diagnostic wo con Routine Hospital Course (1) Chronic deep vein thrombosis of left lower extremity: Chronic DVT left lower extremity- has renal function decline with deborah, discussed anticoagulation with Dr Alcala, recommends that should be off xarelto with renal issues, previous bleeding on eliquis and issues with wide swings in compliance with coumadin, at this time Dr alcala feels pt should just be on aspirin 81 mg a day (2) CKD (chronic kidney disease), stage IV: DEOBRAH with CKD 4, improving (3) Infection due to ESBL-producing Escherichia coli: Pt with esbl ecoli will have on ertapenem, also sensitive to augmentin can continue as po once discharged (4) Hypothyroidism (acquired): Hypothyroidism- Continue levothyroxine Plan Parkinson's- Continue carbidopa levodopa GERD- Continue Dexilant/pantoprazole Total Time Total Time Spent Total Time Spent (In Minutes): 50 Discharge Plan Discharge Items Patient Disposition: Home - Self-Care Reason For Visit: ACUTE RESPIRATORY FAILURE WITH HYPOXIA Discharge Diagnosis: Acute repiratory failure with hypoxemia Activity: Resume your previous activity Lifting: None Bathing: No limitations Exercise/Sports: Gradually increase as tolerated Weightbearing: Full weightbearing Non-emergency contact: Primary Care Provider Call non-emergency contact if: you have any medication questions Follow-up/Referrals: PCP,NO [Primary Care Provider] - Diet: Regular Addtl Attending Provider Instructions: na Pending Studies at Discharge: No Stand-Alone Forms: My [facility], Smoking Cessation Medications and DC Order Prescriptions: Continued valacyclovir 500 mg tablet 500 mg PO DAILY PRN (Reason: breakout) calcium carbonate [Calcium 500] 500 mg calcium (1,250 mg) tablet,chewable 500 mg PO QAM pyridoxine (vitamin B6) 100 mg tablet 100 mg PO Q OTHER DAY aspirin 81 mg tablet,delayed release (DR/EC) 81 mg PO QAM denosumab 60 mg/mL syringe 60 mg SQ Q6MO Xarelto 10 mg tablet 10 mg PO DAILY Qty: 30 2RF atorvastatin 80 mg tablet 80 mg PO HS Qty: 90 3RF albuterol sulfate [Ventolin HFA] 90 mcg/actuation HFA aerosol inhaler 2 puff inhalation QID PRN (Reason: shortness of breath or wheezing) Qty: 6.7 1RF fluticasone propionate 50 mcg/actuation spray,suspension 2 spray INTNAS QAM PRN (Reason: Allergy Symptoms) Qty: 16 3RF (DME) lancets [OneTouch Delica Lancets] 33 gauge misc See Rx Instructions .ROUTE .MEDSUPPLY Qty: 100 Rx Instructions: TEST ONCE DAILY. says she uses weekly (DME) OneTouch Ultra Blue Test Strip Strip See Rx Instructions .ROUTE .MEDSUPPLY Qty: 10 Rx Instructions: TEST ONCE DAILY. does PRN levothyroxine 88 mcg tablet 88 mcg PO DAILYBB carbidopa-levodopa 10-100 mg tablet 1.5 tab PO TID albuterol sulfate 2.5 mg /3 mL (0.083 %) solution for nebulization 2.5 mg inhalation Q8H PRN (Reason: Shortness Of Breath Or Wheezing) cyanocobalamin (vitamin B-12) 500 mcg tablet 500 mcg PO QAM metoprolol succinate 50 mg tablet extended release 24 hr 50 mg PO QAM Rx Instructions: TAKE 1 TABLET BY MOUTH ONCE DAILY hydrocortisone acetate [Anusol-HC] 25 mg suppository 25 mg TN BID PRN (Reason: Hemorrhoids) dexlansoprazole [Dexilant] 60 mg capsule,biphase delayed releas 60 mg PO QAM Discharge Orders: Discharge Order (Routine); Ordered 01/16/23 Ordered By: José Luis Jiang/Berenice Patient Handouts: Chest and Lung Problems Admission Data Admit Date/Time: 01/09/23 20:10 Attending Provider: José Luis Singh Admit Provider: Maxim Chappell Primary Care Provider: PCP,LUCRETIA Other Providers: Maxim Chappell Other Interventions: Discharge Summary Assessment (RN) Last Done: 01/16/23 10:59 Coding Level of Care Code 89474 INP/OBS DISCH >30 MIN Diagnoses Chronic deep vein thrombosis of left lower extremity I82.502 Affected thrombotic vein of extremity: unspecified vein of extremity CKD (chronic kidney disease), stage IV N18.4 Infection due to ESBL-producing Escherichia coli A49.8; Z16.12 Hypothyroidism (acquired) E03.9
[2023-01-16] MEDS: LEVOTHYROXINE SODIUM 88 MCG TABLET PO SCH (06:33)
[2023-01-16 07:10] LABS: BUN Creatinine Ratio 26.8 (10-20); Calcium 8.5 mg/dl (8.6-10.3); Creatinine Clr Calc Pharmacy 16.4 ml/min; Est GFR (African American) 28.6 ml/min; Est GFR (Non-African American) 24.6 ml/min
[2023-01-16] MEDS: PANTOprazole 40 MG TAB PO SCH (08:59)
[2023-01-16] MEDS: ASPIRIN 81 MG ECTAB PO SCH (09:00)
[2023-01-16] MEDS: CARBIDOPA/LEVODOP 10/100MG TAB PO SCH (09:00)
[2023-01-16] MEDS: METOPROLOL SUCC 50MG EXT REL TAB PO SCH (09:01)
[2023-01-16] MEDS: CYANOCOBALAMIN (B-12) 500 MCG TABLET PO SCH (09:01)
[2023-01-16] MEDS: predniSONE 20 MG TAB PO SCH (09:01)
[2023-01-16] MEDS: FLUTICASONE/VILANTEROL 100/25MCG 14 PUFFS/INHALER INH SCH (09:02)
[2023-01-16] MEDS: DOCUSATE SODIUM 100 MG CAP PO SCH (09:03)
[2023-01-16] MEDS: DICLOFENAC SOD 1% GEL 100 GM TUBE EXT SCH ×2 (09:04)
[2023-01-16] MEDS: ACETAMINOPHEN 500 MG TAB PO SCH (09:06)
[2023-01-16] MEDS ORDERED: LORATADINE 10 MG TAB PO ONE (09:22)
[2023-01-16] MEDS: ERTAPENEM SODIUM 500 MG in SYRINGE 0 ML IV SCH (11:34)
--- NOTE | 2023-01-27 12:38 | Coding Query ---
CODING QUERY To promote full compliance with coding requirements relating to patient care, provider participation is requested in all cases of aerospace project engineer uncertainty. Please assist us with the question(s) below: Coding Question(s): Pt admitted with acute respiratory failure. 01/14 progress note & Discharge Summary stated EColi / ESBL infection. Please document, if known or suspected, the source of the infection and whether it was present on admission. Thanks for your help! DANDY Calero [facility] Physician's Response(s): Pt admitted with acute respiratory failure. 01/14 progress note & Discharge Summary stated EColi / ESBL infection. Please document, if known or suspected, the source of the infection and whether it was present on admission. Yes present on admission Acute respiratiory failure and (+) ESBL Principal Diagnosis: "that condition established after study, to be chiefly responsible for occasioning the admission of the patient to the hospital for care." Co-Existing Principal Diagnosis: "when two or more diagnoses equally meet the criteria for principal diagnosis as determined by the circumstances of admission, diagnostic work up, and/or therapy provided, and the Alphabetic Index, Tabular List, or another coding guideline does not provide sequencing direction, any one of the diagnoses may be sequenced first." "When the physician has documented what appears to be a current diagnosis in the body of the record, but has not included the diagnosis in the final diagnostic statement, the physician should be asked whether the diagnosis should be added." (Source Coding Clinic 2 QTR90. p3-4) SG
== END 2023-01-16 12:24 | disposition home or self-care (01) | DRG 189 ==
LOC: ED 17:07 → SUATTDRO 20:10 → 2S 20:10 → 3N 01-13 17:53

== ENCOUNTER 2023-05-10 11:38 | Inpatient (IN) ==
[2023-05-10] MEDS ORDERED: ONDANSETRON INJ 2 MG/ML 2 ML VIAL IV STA (12:11)
[2023-05-10] MEDS ORDERED: HYDROmorphone INJ 0.5 MG/0.5 ML SYR IV STA (12:11)
[2023-05-10] MEDS ORDERED: SODIUM CHLORIDE 0.9% 1,000 ML IV ONE (12:11)
--- NOTE | 2023-05-10 12:14 | Emergency Department Note ---
Impression & Plan Acute cholecystitis ED Provider Note Name: SOFYA COX Age: 78 Sex: Female Arrives Via: Ambulance Informant: Patient ED Provider: Marcial Jin MD Chief Complaint: Abdominal pain Impression: As per impressions above Medical Decision Making: Pleasant 78-year-old female arrives for evaluation of acute right-sided abdominal pain over the last 3 days gradually worsening. Received some IV pain meds with improvement. CT of the abdomen pelvis reveals acute cholecystitis. Given her tenderness palpation and consistent with Shruti on CT I do feel this is most likely acute cholecystitis. Her laboratory work-up is relatively benign without LFT elevation. Discussed with general surgery who given her past medical history advised hospitalization on medicine service and they will follow along. Discussed with hospitalist will bring in for further management. Patient is comfortable with this plan and is stable at time of hospitalization. Triage/Nursing Notes reviewed by Me External Chart Review by me: April 22, 2023 PCP visit for review of past medical history and medications. Differential:Cholecystitis, choledocholithiasis, pancreatitis, GERD, peptic ulcer disease, renal colic, kidney infection, UTI, appendicitis, mesenteric ischemia, diverticulitis, obstruction amongst many other pathologies considered Vital Signs: reviewed and remarkable for no significant abnormalities Interventions: Fentanyl IV, normal saline bolus IV, Mefoxin IV Labs:ED labs Reviewed by me and remarkable for no significant abnormalities Imaging:CT abdomen pelvis without IV contrast as per my informal interpretation shows inflammation of the gallbladder. No bowel obstruction, free air, free fluid appreciated. Confirmed by radiologist. Consults:Dr Monsalve - admit to hospitalist and gen surg will follow along. Dr Vicky MORENO Hospitalist Plan: Disposition:Hospitalization. Condition: Good History of Present Illness: 78-year-old female arrives for evaluation of abdominal pain. Patient states she has had increasing right-sided abdominal pain over the last 3 days. Associated with nausea and decreased appetite. Denies any urinary or bowel changes. Denies any fevers, chills, chest pain, shortness of breath, back pain, rashes, abdominal distention. Patient notes many previous surgeries on her belly due to having children and hysterectomy. She denies a history of cholecystectomy or appendectomy. Denies any falls, trauma, injuries. Not taking any medications for this. Past Medical History:See Below Home Medications:See Below Allergies:nitrofurantoin, azithromycin, tramadol Vitals:Blood Pressure: 121/45, Pulse 91, RR 14, T 36.6C, O2 96% on RA Physical Exam: GENERAL: Patient is tired/dehydrated appearing and in moderate distress. RESPIRATORY: No dyspnea. Clear to auscultation and equal bilaterally. CARDIOVASCULAR: Regular rate and rhythm.No murmur appreciated. GASTROINTESTINAL: Abdomen is soft with diffuse right-sided tenderness palpation no overt peritonitis or guarding but uncomfortable. EXTREMITIES: Normal motion all extremities, no cyanosis, no edema. NEUROLOGIC: Alert and oriented. No focal neurologic deficits appreciated SKIN: No rash, no jaundice, no diaphoresis. PSYCH: Appropriate GCS: 15 ED Course: Times/Reassessments: They did start returning and received some further pain medications With good result. She is comfortable with plan for hospitalization. Marcial Jin MD Past Med/Surg History Medical History Acute kidney injury Ankle edema, bilateral Arthritis Asymptomatic menopausal state Blood glucose abnormal Cardiomyopathy Cholelithiasis Chronic deep vein thrombosis (DVT) Chronic deep vein thrombosis of left lower extremity Chronic fatigue syndrome Chronic GERD Chronic kidney disease Chronic laryngitis Chronic pharyngitis Cigarette smoker motivated to quit Compression fracture of lumbar vertebra Constipation Cough Deep vein thrombosis of distal lower extremity Depression Dermatitis, eczematoid Diabetes mellitus (11/29/12) Dizziness DVT (deep venous thrombosis) Dyspnea on exertion Dysuria Gastropathy GERD (gastroesophageal reflux disease) GI bleed Hearing loss Hematuria Hematuria, microscopic Herpes simplex Hoarseness Hyperglycemia Hyperlipidemia Hypothyroidism Hypothyroidism (acquired) Interstitial lung disease Iron deficiency anemia Ischemic colitis Kidney stones Laryngitis Leg length discrepancy Lightheadedness Low back pain Lumbar spinal stenosis Muscle spasm Nasal dryness Nicotine dependence NSTEMI (non-ST elevated myocardial infarction) 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 Osteopenia (11/29/12) Pneumonia Prediabetes 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 Recurrent UTI Rib pain on right side Right-sided headache Secondary hyperparathyroidism (of renal origin) Secondary hyperparathyroidism of renal origin Shortness of breath Sinusitis SNHL (sensorineural hearing loss) Solitary pulmonary nodule Stroke-like symptoms Subsequent non-ST elevation (NSTEMI) myocardial infarction Takotsubo syndrome Tendinitis of left rotator cuff Thyroid disease Type 2 diabetes mellitus without complication Vertigo Surgical History History of History of D&C History of tubal ligation Hx of colonoscopy Family History Mother Leukemia Hypertension Father Myocardial infarction Diabetes Other Family history non-contributory Denies family history of Ovarian cancer Prostate cancer Breast cancer Lung cancer Social History Smoking Status: Former smoker Tobacco Type: Cigarettes Cigarettes Per Day: 1 cigarette every week; Second Hand Exposure: No; Do You Dip or Chew Tobacco: No; Hx Alcohol Use: No Hx Substance Use: Yes Last Used Substance: Hours (ago) Preferred Language: [place] Communication Ability: Effective Visual Impairment: No Limitations Hearing Ability: Use of Hearing Aid 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 Clinical Professor Required: No Beliefs That Will Affect Care: None marital status: Current Living Situation: Family and Personal Care Facility Current Living Situation Comment: Has a caregiver current occupational status: retired Feels Safe at Home: Yes Childhood Exposure to Second-Hand Smoke: Yes caffeine: No Dental Care, Regularly: No Physical Activity Frequency: Does not Exercise Seatbelt Use: always Sunscreen Use: No Assistive Devices: Walker Allergies Allergies Allergy/AdvReac Type Severity Reaction Status Date / Time nitrofurantoin Allergy Intermediate HIVES,ITCHI Verified 04/23/23 10:47 NG azithromycin [From Zithromax] Allergy HIVES Verified 04/23/23 10:47 tramadol AdvReac Mild nausea Verified 04/23/23 10:47 Home Meds Home Medications Medication Instructions Recorded Confirmed aspirin 81 mg tablet,delayed 81 mg PO QAM 06/06/18 05/10/23 release denosumab 60 mg/mL subcutaneous 60 mg subcut Q6MO 02/25/19 05/10/23 syringe lancets 33 gauge (Scintella SolutionsTouch Delica #100 ea 07/13/20 04/23/23 Lancets) blood sugar diagnostic (Presslyuch #10 ea 12/08/21 04/23/23 Ultra Blue Test Strip) calcium carbonate 500 mg calcium 500 mg PO QAM 06/29/22 05/10/23 (1,250 mg) chewable tablet (Calcium 500) pyridoxine (vitamin B6) 100 mg 100 mg PO Q OTHER DAY 06/29/22 05/10/23 tablet albuterol sulfate 2.5 mg/3 mL 2.5 mg inhalation Q8H PRN 07/19/23 11/17/23 (0.083 %) solution for nebulization Shortness Of Breath Or Wheezing carbidopa 10 mg-levodopa 100 mg 1.5 tab PO TID 01/09/23 05/10/23 tablet cyanocobalamin (vitamin B-12) 500 500 mcg PO QAM 01/09/23 05/10/23 mcg tablet hydrocortisone acetate 25 mg 25 mg AZ BID PRN Hemorrhoids 01/09/23 05/10/23 rectal suppository (Anusol-HC) levothyroxine 88 mcg tablet 88 mcg PO DAILYBB 01/09/23 05/10/23 Previous Rx's Medication Instructions Recorded albuterol sulfate 90 mcg/actuation 2 puff inhalation QID PRN 03/05/22 aerosol inhaler (Ventolin HFA) shortness of breath or wheezing #6.7 grams dexlansoprazole 60 mg 60 mg PO QAM #90 caps 01/25/23 capsule,biphase delayed release (Dexilant) atorvastatin 80 mg tablet 80 mg PO HS #90 tabs 02/12/23 metoprolol succinate 50 mg 50 mg PO QAM #90 tabs 02/21/23 tablet,extended release 24 hr valacyclovir 500 mg tablet 500 mg PO DAILY PRN breakout #14 02/21/23 tabs fluticasone propionate 50 2 spray intranasal QAM PRN Allergy 03/01/23 mcg/actuation nasal Symptoms #16 grams spray,suspension Results & Data (ED) Vital Signs Vital Signs - 24 hr 05/10/23 11:47 05/10/23 11:57 Temperature 36.6 C Temperature Source Oral Pulse Rate 91 H 91 H Respiratory Rate 14 Blood Pressure 121/45 L Blood Pressure Mean 70 Pulse Oximetry 96 Oxygen Delivery Method Room Air Sepsis Recent Fever Within 48 Hours No Sepsis New/Unexplained Change in Mental Status No Sepsis Action Taken by Nursing No Action Required Laboratory Data 05/12/23 04:27 05/12/23 04:21 Lab Results 05/10/23 Range/Units 12:40 WBC 6.89 (4.8-10.8) K/ul RBC 3.42 L (4.20-5.40) M/uL Hgb 11.3 L (12.0-16.0) g/dl Hct 35.2 L (37.0-47.0) % MCV 102.9 H (80.0-100.0) fL MCH 33.0 (25.0-34.0) pg MCHC 32.1 (32.0-36.0) g/dL RDW Std Deviation 52.1 H (36.4-46.3) fL RDW Coeff of Damien 13.7 (11.5-14.5) % Plt Count 394 (130-400) K/uL MPV 10.1 (9.4-12.4) fL Immature Gran % (Auto) 1.2 % Neut % (Auto) 62.7 % Lymph % (Auto) 22.9 % Hettinger % (Auto) 10.3 % Eos % (Auto) 2.2 % Baso % (Auto) 0.7 % Neut # (Auto) 4.32 (1.40-6.50) K/uL Lymph # (Auto) 1.58 (1.20-3.40) K/uL Hettinger # (Auto) 0.71 H (0.11-0.59) K/uL Eos # (Auto) 0.15 (0.00-0.50) K/uL Baso # (Auto) 0.05 (0.00-0.20) K/uL Immature Gran # (Auto) 0.08 (0.01-0.20) K/uL Sodium 136 (136-145) mmol/L Potassium 4.0 (3.5-5.1) mmol/L Chloride 100 (98-107) mmol/L Carbon Dioxide 30 (21-32) mmol/L Anion Gap 6 (3-11) BUN 22 (6-23) mg/dl Creatinine 1.61 H (0.6-1.2) mg/dl Est Cr Clr Drug Dosing 18.5 ml/min Est GFR ( Amer) 34.6 ml/min Est GFR (Non-Af Amer) 29.9 ml/min BUN/Creatinine Ratio 13.7 (10-20) Glucose 125 H (70-99(Fasting)) mg/dl Calcium 9.1 (8.6-10.3) mg/dl Magnesium 1.3 L (1.7-2.4) mg/dl Total Bilirubin 0.3 (0.2-1.0) mg/dl Direct Bilirubin 0.0 (0-0.2) mg/dl AST 18 (13-39) U/L ALT < 3 L (7-52) U/L Alkaline Phosphatase 87 (34-104) U/L Total Protein 6.9 (6.0-8.3) gm/dl Albumin 3.4 (3.4-5.0) gm/dl Lipase 15 (11-82) U/L Administered Medications Acetaminophen (Acetaminophen 325 Mg Tab) 650 mg PO Q6H PRN PRN Reason: pain (1-4) or fever Stop: 06/09/23 16:14 Last Admin: 05/12/23 07:18 Dose: 650 mg Documented By: Admin: 05/11/23 23:06 Dose: 650 mg Documented By: Admin: 05/11/23 15:49 Dose: 650 mg Documented By: Admin: 05/11/23 09:01 Dose: 650 mg Documented By: Admin: 05/11/23 00:47 Dose: 650 mg Documented By: CHARBEL Aspirin (Aspirin 81 Mg Ectab) 81 mg PO QAM [facility] Stop: 06/10/23 08:59 Last Admin: 05/12/23 08:29 Dose: 81 mg Documented By: Admin: 05/11/23 08:48 Dose: 81 mg Documented By: BOB Atorvastatin Calcium (Atorvastatin 40 Mg Tab) 80 mg PO HS [facility] Stop: 06/09/23 20:59 Last Admin: 05/11/23 21:42 Dose: 80 mg Documented By: Admin: 05/10/23 20:12 Dose: 80 mg Documented By: CHARBEL Carbidopa/Levodopa (Carbidopa/Levodop 10/100mg Tab) 1.5 tab PO TID [facility] Stop: 06/09/23 20:59 Last Admin: 05/12/23 08:29 Dose: 1.5 tab Documented By: Admin: 05/11/23 21:43 Dose: 1.5 tab Documented By: Admin: 05/11/23 14:35 Dose: 1.5 tab Documented By: Admin: 05/11/23 08:49 Dose: 1.5 tab Documented By: Admin: 05/10/23 20:11 Dose: 1.5 tab Documented By: CHARBEL Heparin Sodium (Porcine) (Heparin Sod 5,000 Unit/0.5 Ml Vial) 5,000 units SQ Q8 [facility] Stop: 06/09/23 21:59 Last Admin: 05/12/23 06:12 Dose: 5,000 units Documented By: Admin: 05/11/23 21:43 Dose: 5,000 units Documented By: Admin: 05/11/23 14:35 Dose: 5,000 units Documented By: Admin: 05/11/23 06:00 Dose: 5,000 units Documented By: Admin: 05/10/23 23:10 Dose: 5,000 units Documented By: CHARBEL Ceftriaxone Sodium 2,000 mg/ (Dextrose) 50 mls @ 100 mls/hr IV Q24H [facility]; Protocol Stop: 05/21/23 15:59 Last Infusion: 05/11/23 17:47 Dose: Infused Documented By: Admin: 05/11/23 17:05 Dose: 100 mls/hr Documented By: BOB Metronidazole (Flagyl) 500 mg in 100 mls @ 100 mls/hr IV Q8H [facility]; Protocol Stop: 05/21/23 00:00 Last Infusion: 05/12/23 09:38 Dose: Infused Documented By: Admin: 05/12/23 08:29 Dose: 100 mls/hr Documented By: Infusion: 05/12/23 02:27 Dose: Infused Documented By: Admin: 05/12/23 01:25 Dose: 100 mls/hr Documented By: Infusion: 05/11/23 16:54 Dose: Infused Documented By: Admin: 05/11/23 15:50 Dose: 100 mls/hr Documented By: Infusion: 05/11/23 10:16 Dose: Infused Documented By: Admin: 05/11/23 08:46 Dose: 100 mls/hr Documented By: Infusion: 05/11/23 00:16 Dose: Infused Documented By: Admin: 05/10/23 23:09 Dose: 100 mls/hr Documented By: CHARBEL Levothyroxine Sodium (Levothyroxine Sodium 88 Mcg Tablet) 88 mcg PO DAILYBB [facility] Stop: 06/10/23 06:29 Last Admin: 05/12/23 06:12 Dose: 88 mcg Documented By: Admin: 05/11/23 06:00 Dose: 88 mcg Documented By: CHARBEL Metoprolol Succinate (Metoprolol Succ 50mg Ext Rel Tab) 50 mg PO [facility] Stop: 06/10/23 08:59 Last Admin: 05/12/23 08:30 Dose: 50 mg Documented By: Admin: 05/11/23 08:48 Dose: 50 mg Documented By: BOB Pantoprazole Sodium (Pantoprazole 40 Mg Tab) 40 mg PO [facility] Stop: 06/10/23 08:59 Last Admin: 05/12/23 08:30 Dose: 40 mg Documented By: MTJoseph Admin: 05/11/23 08:48 Dose: 40 mg Documented By: BOB Discontinued Medications Carbidopa/Levodopa (Carbidopa/Levodop 10/100mg Tab) 1.5 tab PO NOW STA Stop: 05/10/23 16:47 Last Admin: 05/10/23 17:58 Dose: 1.5 tab Documented By: ARTURO Hydromorphone HCl (Hydromorphone Inj 0.5 Mg/0.5 Ml Syr) 0.5 mg IV NOW STA Stop: 05/10/23 12:12 Last Admin: 05/10/23 12:59 Dose: 0.5 mg Documented By: PORSHA Sodium Chloride (Nss) 1,000 mls @ 999 mls/hr IV .Q1H1M ONE Stop: 05/10/23 13:11 Last Infusion: 05/10/23 14:26 Dose: Infused Documented By: Admin: 05/10/23 13:00 Dose: 999 mls/hr Documented By: PORSHA Cefoxitin Sodium (Mefoxin) 2,000 mg in 60 mls @ 100 mls/hr IV NOW STA Stop: 05/10/23 15:44 Last Infusion: 05/10/23 16:57 Dose: Infused Documented By: Admin: 05/10/23 15:33 Dose: 100 mls/hr Documented By: ARTURO Magnesium Sulfate/Dextrose (Magnesium Sulfate / D5w) 1 gm in 100 mls @ 100 mls/hr IV NOW STA Stop: 05/10/23 16:09 Last Infusion: 05/10/23 18:27 Dose: Infused Documented By: Admin: 05/10/23 16:05 Dose: 100 mls/hr Documented By: ARTURO Metronidazole (Flagyl) 500 mg in 100 mls @ 100 mls/hr IV NOW STA; Protocol Stop: 05/10/23 16:24 Last Admin: 05/10/23 15:52 Dose: Not Given Documented By: ARTURO Metronidazole (Flagyl) 500 mg in 100 mls @ 100 mls/hr IV NOW STA; Protocol Stop: 05/10/23 17:09 Last Infusion: 05/10/23 18:27 Dose: Infused Documented By: Admin: 05/10/23 16:23 Dose: 100 mls/hr Documented By: ARTURO Ceftriaxone Sodium (Rocephin) 50 mls @ 100 mls/hr IV NOW STA Stop: 05/10/23 16:40 Last Infusion: 05/10/23 21:00 Dose: Infused Documented By: Admin: 05/10/23 18:38 Dose: 100 mls/hr Documented By: BOB Parenteral Electrolytes (Plasma-Lyte A Ph 7.4) 1,000 mls @ 999 mls/hr IV .Q1H1M ONE Stop: 05/10/23 17:11 Last Infusion: 05/10/23 18:27 Dose: Infused Documented By: Admin: 05/10/23 16:23 Dose: 999 mls/hr Documented By: ARTURO Magnesium Sulfate/Dextrose (Magnesium Sulfate / D5w) 1 gm in 100 mls @ 100 mls/hr IV Q1H [facility] Stop: 05/10/23 18:14 Last Infusion: 05/10/23 22:44 Dose: Infused Documented By: Admin: 05/10/23 20:11 Dose: 100 mls/hr Documented By: Infusion: 05/10/23 18:26 Dose: Infused Documented By: Admin: 05/10/23 17:12 Dose: 100 mls/hr Documented By: ALBERT Parenteral Electrolytes (Plasma-Lyte A Ph 7.4) 1,000 mls @ 80 mls/hr IV .[id number] [facility] Stop: 05/11/23 19:23 Last Infusion: 05/11/23 22:10 Dose: Infused Documented By: Admin: 05/11/23 08:46 Dose: 80 mls/hr Documented By: Infusion: 05/11/23 07:13 Dose: Infused Documented By: Admin: 05/10/23 18:43 Dose: 80 mls/hr Documented By: BOB Loratadine (Loratadine 10 Mg Tab) 10 mg PO NOW ONE Stop: 05/11/23 15:29 Last Admin: 05/11/23 16:56 Dose: 10 mg Documented By: BOB Metronidazole (Metronidazole 500 Mg/100 Ml Bag) Confirm Administered Dose 500 mg IV .STK-MED ONE Stop: 05/10/23 15:49 Last Admin: 05/10/23 15:52 Dose: Not Given Documented By: ARTURO Ondansetron HCl (Ondansetron Inj 2 Mg/Ml 2 Ml Vial) 4 mg IV NOW STA Stop: 05/10/23 12:12 Last Admin: 05/10/23 12:59 Dose: 4 mg Documented By: PORSHA Discharge Plan Visit Data Chief Complaint: Illness ED Provider: Marcial Jin Discharge Problem: Acute cholecystitis Patient Disposition: Admitted As Inpatient Discharge Instructions Interventions: ED Discharge Assessment Last Done: 05/10/23 17:55
[2023-05-10 13:36] LABS: Basophils # (auto) 0.05 K/uL (0.00-0.20); Basophils % (auto) 0.7 %; Eosinophils # (auto) 0.15 K/uL (0.00-0.50); Eosinophils % (auto) 2.2 %; Hematocrit (blood only) 35.2 % (37.0-47.0); Hemoglobin 11.3 g/dl (12.0-16.0); Immature Granulocytes # (auto) 0.08 K/uL (0.01-0.20); Immature Granulocytes % (auto) 1.2 %; Lymphocytes # (auto) 1.58 K/uL (1.20-3.40); Lymphocytes % (auto) 22.9 %; Mean Corpuscular Hgb Conc 32.1 g/dL (32.0-36.0); Mean Corpuscular Volume 102.9 fL (80.0-100.0); Mean Platelet Volume 10.1 fL (9.4-12.4); Monocytes # (auto) 0.71 K/uL (0.11-0.59); Monocytes % (auto) 10.3 %; Neutrophils # (auto) 4.32 K/uL (1.40-6.50); Neutrophils % (auto) 62.7 %; Platelet Count 394 K/uL (130-400); RDW Coefficient of Variation 13.7 % (11.5-14.5); RDW Standard Deviation 52.1 fL (36.4-46.3); Red Blood Count 3.42 M/uL (4.20-5.40); White Blood Count 6.89 K/ul (4.8-10.8)
[2023-05-10 13:45] LABS: Anion Gap 6 (3-11); BUN Creatinine Ratio 13.7 (10-20); Blood Urea Nitrogen 22 mg/dl (6-23); Calcium 9.1 mg/dl (8.6-10.3); Carbon Dioxide 30 mmol/L (21-32); Chloride 100 mmol/L (98-107); Creatinine Clr Calc Pharmacy 18.5 ml/min; Est GFR (African American) 34.6 ml/min; Est GFR (Non-African American) 29.9 ml/min; Glucose 125 mg/dl (70-99(Fasting)); Sodium 136 mmol/L (136-145)
[2023-05-10 14:11] LABS: Alanine Aminotransferase < 3 U/L (7-52); Albumin Level 3.4 gm/dl (3.4-5.0); Alkaline Phosphatase 87 U/L (34-104); Aspartate Aminotransferase 18 U/L (13-39); Bilirubin,Total 0.3 mg/dl (0.2-1.0); Lipase 15 U/L (11-82); Magnesium 1.3 mg/dl (1.7-2.4); Total Protein 6.9 gm/dl (6.0-8.3)
--- NOTE | 2023-05-10 14:11 | CT Scan Report ---
CT abd pelvis wo con CLINICAL HISTORY: right abdominal pain TECHNIQUE: Helical axial images of the abdomen and pelvis were obtained. Automated dose lowering tech niques and/or adjustment according to patient size were utilized for this exam. This exam was perfor med without intravenous contrast. CT DOSE: 808.95 mGy.cm COMPARISON: Comparison is made to CT abdomen pelvis 03/23/2019 FINDINGS: Lower chest: Interstitial thickening is seen. Liver: Unremarkable. No focal lesions are seen. Gallbladder and biliary tree: Gallbladder thickening and stones are seen, the gallbladder wall measur es 3.5 mm. Pericholecystic fat stranding is noted. Common bile duct is 9 mm in diameter, slightly abo ve expected size for age. Pancreas: Unremarkable, no focal lesions. Spleen: Unremarkable. Adrenals: Unremarkable. Kidneys and ureters: Renal cysts are seen. Nonobstructive stones are seen in the kidneys. Bladder: Unremarkable. Reproductive organs: Unremarkable. Bowel: The appendix is normal. Lymph nodes Retroperitoneal: Unremarkable. Pelvic: Unremarkable. Mesenteric: Unremarkable. Peritoneum: Postsurgical changes are seen in the anterior abdominal wall. Vessels: Atherosclerotic calcifications are seen. Abdominal wall: Fat stranding is in the region of the right upper quadrant. Bones: Numerous compression deformities are seen in the spine with interval development of a L1 compr ession deformity. These appear chronic. Degenerative disc disease is seen. Old healed rib fractures a re seen. Chronic appearing transverse process fractures are noted. There is a left medullary nail. IMPRESSION: Gallbladder wall thickening and right upper quadrant stranding, clinical correlation for acute cholec ystitis is recommended. ACT 112: Negative or not required by law. Electronically signed by: Jorge Tierney M.D. 05/10/2023 2:09 PM
[2023-05-10] MEDS ORDERED: cefOXitin 2,000 MG/60 ML BAG IV STA (15:09)
[2023-05-10] MEDS ORDERED: MAGNESIUM SULFATE / D5W 1 GM/100 ML BAG IV STA (15:10)
[2023-05-10] MEDS ORDERED: metroNIDAZOLE 500 MG/100 ML BAG IV STA ×2 (15:25→16:10)
--- NOTE | 2023-05-10 15:32 | History & Physical Report ---
Date of Service May 10, 2023 Assessment & Plan (1) Acute cholecystitis: Plan: -Admit to med/tele -Currently stable, asymptomatic, and non-toxic appearing -Presented to the ED with 3 days of progressive RUQ pain -CT of the abd/pelvis showed Gallbladder wall thickening and right upper quadrant stranding concerning for acute cholecystitis -LFT's are WNL, no leukocytosis, has been afebrile -General surgery evaluated at bedside at the time of my exam, appreciate their assistance: >No urgent plan for OR tonight >Recommends admission with bowel rest, continued IV abx, and IV fluids >Will re-assess tomorrow to see if she needs to be taken to the OR -S/P one dose of Cefoxitin in the ED, will continue with Ceftriaxone and Flagyl for now -S/P 1L NSS in the ED, will give 1L Normosol on admission then continue maintenance Normosol moving forward -Tylenol and IV Dilaudid for pain -Will keep NPO except meds for now in case she would require the OR overnight -Will start SQ heparin for DVT PPX -AM CBC, CMP, Mag, PT/INR (2) Chronic deep vein thrombosis (DVT): Plan: -Previously on Elqiuis and Coumadin but these had to be discontinued due to complications -Was then on Xarelto but had to be discontinued due to renal function -Dr. Alcala follows, was consulted during last admission in December, recommended 81 mg aspirin daily -Will conitnue Aspirin at this time -Will obtain BL LE venous dopplers with ongoing LE swelling to rule out possible DVT's (3) Interstitial lung disease: Plan: -Stable on RA -Incentive spirometry and prn albuterol (4) Hypothyroidism (acquired): Plan: -Continue levothyroxine (5) GERD (gastroesophageal reflux disease): Plan: -Continue PPI (6) HTN (hypertension): Plan: -Stable -Conitnue metoprolol (7) CKD (chronic kidney disease), stage IV: Plan: -Currently stable -Monitor daily renal function (8) Tremor: Plan: -Continue Carbidopa-Levodopa -Will give afternoon dose now (9) Anemia: Plan: -Stable -Continue B12 Plan The patient was discussed with Dr. Perry at the time of the admission History of Present Illness Chief Complaint: abdominal pain Primary Care Provider: DO Elyse Russo is an 78 year old female with a PMH significant for reactive airway disease, DVT left lower extremity (currently on aspirin therapy), thoracic compression fractures, hypothyroidism, GERD, hypertension, CKD stage IV, follicular lymphoma, secondary hyperparathyroidism of renal origin, and Parkinsonism who presented to the [facility] ED on 05/10 with a chief complaint of RUQ abdominal pain. She remained stable while in the ED. Labs were significant for a mag of 1.3. CT of the abd/pelvis wo con was read as "Gallbladder wall thickening and right upper quadrant stranding, clinical correlation for acute cholecystitis is recommended.". The ED staff spoke with General surgery who is comfortable with keeping the patient at our facility. Prior to admission she was given a dose of Cefoxitin, 1gm IV Mag/Sulfate, 1L NSS, and 0.5 mg IV dilaudid. At the time of the exam the patient was sitting in bed in no acute distress. She states that she started to develop RUQ abdominal pain approximately 3 days ago. She denies any radiation of the pain and describes it as a dull/aching pain. It was initially an 8/10 on arrival but is currently controlled after receiving dilaudid. She was only using tylenol for pain at home. She explains that she was taken off Xarelto and placed on aspirin for her Hx of DVT approximately 3-4 months ago. Per chart review, she was taken off Xarelto during her last admission to [facility] in December due to her renal function. The hospitalist team consulted Dr. Alcala who did not recommend Elqiuis due to previous bleeding issues and did not recommend Warfarin due to significant liable INR on Warfarin in the past. After further discussions Dr. Alcala recommended 81 mg aspirin daily. The patient has been taking her medications as prescribed. She denies recent fever, chills, chest pain, palpitations, SOB, cough, nausea/vomiting, dysuria, diarrhea, melena, and recent trauma. She did have a soft BM this am and is still passing gas today. We discussed code status, she wishes to be a FUll code and for her dauughter to make medical decisions for her if she cannot make decisions herself. Please refer to Dr. Perry's attestation for any changes to the treatment plan Allergies Allergy/AdvReac Type Severity Reaction Status Date / Time nitrofurantoin Allergy Intermediate HIVES,ITCHI Verified 04/23/23 10:47 NG azithromycin [From Zithromax] Allergy HIVES Verified 04/23/23 10:47 tramadol AdvReac Mild nausea Verified 04/23/23 10:47 Home Medications Medication Instructions Recorded Confirmed Type aspirin 81 mg tablet,delayed 81 mg PO QAM 06/06/18 05/10/23 History release denosumab 60 mg/mL subcutaneous 60 mg subcut Q6MO 02/25/19 05/10/23 History syringe lancets 33 gauge (ViewpointsTouch Delica #100 ea 07/13/20 04/23/23 History Lancets) blood sugar diagnostic (OneTouch #10 ea 12/08/21 04/23/23 History Ultra Blue Test Strip) albuterol sulfate 90 mcg/actuation 2 puff inhalation QID PRN 03/05/22 05/10/23 Rx aerosol inhaler (Ventolin HFA) shortness of breath or wheezing #6.7 grams calcium carbonate 500 mg calcium 500 mg PO QAM 06/29/22 05/10/23 History (1,250 mg) chewable tablet (Calcium 500) pyridoxine (vitamin B6) 100 mg 100 mg PO Q OTHER DAY 06/29/22 05/10/23 History tablet albuterol sulfate 2.5 mg/3 mL 2.5 mg inhalation Q8H PRN 01/09/23 05/10/23 History (0.083 %) solution for nebulization Shortness Of Breath Or Wheezing carbidopa 10 mg-levodopa 100 mg 1.5 tab PO TID 01/09/23 05/10/23 History tablet cyanocobalamin (vitamin B-12) 500 500 mcg PO QAM 01/09/23 05/10/23 History mcg tablet hydrocortisone acetate 25 mg 25 mg ND BID PRN Hemorrhoids 01/09/23 05/10/23 History rectal suppository (Anusol-HC) levothyroxine 88 mcg tablet 88 mcg PO DAILYBB 01/09/23 05/10/23 History dexlansoprazole 60 mg 60 mg PO QAM #90 caps 01/25/23 05/10/23 Rx capsule,biphase delayed release (Dexilant) atorvastatin 80 mg tablet 80 mg PO HS #90 tabs 02/12/23 05/10/23 Rx metoprolol succinate 50 mg 50 mg PO QAM #90 tabs 02/21/23 05/10/23 Rx tablet,extended release 24 hr valacyclovir 500 mg tablet 500 mg PO DAILY PRN breakout #14 02/21/23 05/10/23 Rx tabs fluticasone propionate 50 2 spray intranasal QAM PRN Allergy 03/01/23 05/10/23 Rx mcg/actuation nasal Symptoms #16 grams spray,suspension Past Med/Surg History Medical History Acute kidney injury Ankle edema, bilateral Arthritis Asymptomatic menopausal state Blood glucose abnormal Cardiomyopathy Cholelithiasis Chronic deep vein thrombosis (DVT) Chronic deep vein thrombosis of left lower extremity Chronic fatigue syndrome Chronic GERD Chronic kidney disease Chronic laryngitis Chronic pharyngitis Cigarette smoker motivated to quit Compression fracture of lumbar vertebra Constipation Cough Deep vein thrombosis of distal lower extremity Depression Dermatitis, eczematoid Diabetes mellitus (11/29/12) Dizziness DVT (deep venous thrombosis) Dyspnea on exertion Dysuria Gastropathy GERD (gastroesophageal reflux disease) GI bleed Hearing loss Hematuria Hematuria, microscopic Herpes simplex Hoarseness Hyperglycemia Hyperlipidemia Hypothyroidism Hypothyroidism (acquired) Interstitial lung disease Iron deficiency anemia Ischemic colitis Kidney stones Laryngitis Leg length discrepancy Lightheadedness Low back pain Lumbar spinal stenosis Muscle spasm Nasal dryness Nicotine dependence NSTEMI (non-ST elevated myocardial infarction) 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 Osteopenia (11/29/12) Pneumonia Prediabetes 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 Recurrent UTI Rib pain on right side Right-sided headache Secondary hyperparathyroidism (of renal origin) Secondary hyperparathyroidism of renal origin Shortness of breath Sinusitis SNHL (sensorineural hearing loss) Solitary pulmonary nodule Stroke-like symptoms Subsequent non-ST elevation (NSTEMI) myocardial infarction Takotsubo syndrome Tendinitis of left rotator cuff Thyroid disease Type 2 diabetes mellitus without complication Vertigo Surgical History History of History of D&C History of tubal ligation Hx of colonoscopy Family History Mother Leukemia Hypertension Father Myocardial infarction Diabetes Other Family history non-contributory Denies family history of Ovarian cancer Prostate cancer Breast cancer Lung cancer Social History (Reviewed 04/23/23 @ 13:29 by SUSIE Russo Smoking Status: Former smoker Tobacco Type: Cigarettes Cigarettes Per Day: 1 cigarette every week; Second Hand Exposure: No; Do You Dip or Chew Tobacco: No; Hx Alcohol Use: No Hx Substance Use: Yes Last Used Substance: Hours (ago) Preferred Language: Estonian Communication Ability: Effective Visual Impairment: No Limitations Hearing Ability: Use of Hearing Aid Therapeutic Dietitian Required: No Beliefs That Will Affect Care: None marital status: Current Living Situation: Family and Personal Care Facility Current Living Situation Comment: Has a caregiver current occupational status: retired Feels Safe at Home: Yes Childhood Exposure to Second-Hand Smoke: Yes caffeine: No Dental Care, Regularly: No Physical Activity Frequency: Does not Exercise Seatbelt Use: always Sunscreen Use: No Assistive Devices: Walker Physical Exam Physical Exam: Physical Exam: General: In no acute distress, stated age, well-nourished, non-toxic appearing HEENT: Normocephalic, atraumatic, no scleral icterus, pupils around round, symmetrical, and reactive to light, moist mucus membranes, trachea midline, no thyromegaly Chest/Pulm: No respiratory distress, symmetrical chest expansion, scattered expiratory wheezing Cardiac: RRR, no murmurs noted Abdomen: Negative for ascites and bruising, hyperactive bowel sounds, soft, minimally tender to palpation in the RUQ, negative alaniz's sign, negative rebound tenderness throughout Musculoskeletal: Symmetrical and without signs of acute trauma, upper and lower extremities with full ROM, no atrophy, spasticity, or flaccidity Extremities: Radial, dorsalis pedis, and posterior tibial pulses are intact and symmetrical, RLE is mildly swollen compared to right, no significant pitting edema BL Skin: Warm, dry, no rashes , lesions, or scars noted Neuro: Alert and oriented to person, place, month, year, and president, no focal defects, baseline tremor noted Psych: No acute distress, calm and cooperative during the exam Results & Data Results & Data Vital Signs (Past 12 Hours) Vital Signs Temp Pulse Pulse Resp BP BP Pulse Ox 05/10/23 14:30 86 24 116/62 96 05/10/23 14:03 84 21 116/62 92 05/10/23 13:10 82 20 121/45 L 96 05/10/23 11:57 91 H 05/10/23 11:47 36.6 C 91 H 14 121/45 L 96 O2 Del Method 05/10/23 14:30 Room Air 05/10/23 14:03 Room Air 05/10/23 13:10 Room Air 05/10/23 11:57 05/10/23 11:47 Room Air Laboratory Results Abnormal lab results 05/10/23 Range/Units 12:40 RBC 3.42 L (4.20-5.40) M/uL Hgb 11.3 L (12.0-16.0) g/dl Hct 35.2 L (37.0-47.0) % MCV 102.9 H (80.0-100.0) fL RDW Std Deviation 52.1 H (36.4-46.3) fL [place] # (Auto) 0.71 H (0.11-0.59) K/uL Creatinine 1.61 H (0.6-1.2) mg/dl Glucose 125 H (70-99(Fasting)) mg/dl Magnesium 1.3 L (1.7-2.4) mg/dl ALT < 3 L (7-52) U/L Diagnostic Findings Abdomen/Pelvis CT 05/10/23 12:11 CT abd pelvis wo con CLINICAL HISTORY: right abdominal pain TECHNIQUE: Helical axial images of the abdomen and pelvis were obtained. Automated dose lowering techniques and/or adjustment according to patient size were utilized for this exam. This exam was performed without intravenous contrast. CT DOSE: 808.95 mGy.cm COMPARISON: Comparison is made to CT abdomen pelvis 03/23/2019 FINDINGS: Lower chest: Interstitial thickening is seen. Liver: Unremarkable. No focal lesions are seen. Gallbladder and biliary tree: Gallbladder thickening and stones are seen, the gallbladder wall measures 3.5 mm. Pericholecystic fat stranding is noted. Common bile duct is 9 mm in diameter, slightly above expected size for age. Pancreas: Unremarkable, no focal lesions. Spleen: Unremarkable. Adrenals: Unremarkable. Kidneys and ureters: Renal cysts are seen. Nonobstructive stones are seen in the kidneys. Bladder: Unremarkable. Reproductive organs: Unremarkable. Bowel: The appendix is normal. Lymph nodes Retroperitoneal: Unremarkable. Pelvic: Unremarkable. Mesenteric: Unremarkable. Peritoneum: Postsurgical changes are seen in the anterior abdominal wall. Vessels: Atherosclerotic calcifications are seen. Abdominal wall: Fat stranding is in the region of the right upper quadrant. Bones: Numerous compression deformities are seen in the spine with interval development of a L1 compression deformity. These appear chronic. Degenerative disc disease is seen. Old healed rib fractures are seen. Chronic appearing transverse process fractures are noted. There is a left medullary nail. IMPRESSION: Gallbladder wall thickening and right upper quadrant stranding, clinical correlation for acute cholecystitis is recommended. ACT 112: Negative or not required by law. Electronically signed by: Jorge Tierney M.D. 05/10/2023 2:09 PM Chest X-Ray 05/10/23 15:16 XR chest 1V portable CLINICAL HISTORY: pre-op TECHNIQUE: Single frontal radiograph of the chest was obtained. Comparison: Comparison is made to chest radiograph 01/09/2023 FINDINGS: No lines and tubes are seen. The cardiomediastinal silhouette is normal. Lungs are underinflated but clear. There is mild interstitial disease. No evidence of pleural effusion or pneumothorax. IMPRESSION: No acute chest disease. ACT 112: Negative or not required by law. Electronically signed by: Jorge Tierney M.D. 05/10/2023 3:41 PM ECG Additional Comments: Normal sinus rhythm Normal ECG When compared with ECG of 09-JAN-2023 17:25, No significant change was found Confirmed by Robinson Mcintosh ([id number]) on 05/10/2023 3:47:45 PM Code Status & VTE Plan Code Status Full code VTE Prophylaxis Plan VTE Prophylaxis will be ordered: Yes Supervising Physician Co-Signing Physician Notes I personally saw and examined the patient. I verified all machado points and agree with Darrell Araujo PA-C with the following exceptions and/or additions: 78 year old female presents to the ER with RUQ abdominal pain starting 3 days ago. No prior gallbladder problems but with hindsight she feels it intermittently may have been going on for weeks. No fever or chills. O/E A&Ox3, HS RRR, no murmurs, Chest CTAB, Abdo RUQ pain without guarding or rebound tenderness, LLE > RLE swelling A/P Acute cholecystitis - consult surgery, ceftriaxone+metronidazole, NPO, IV fluids, trend LFTs Chronic DVT - b/l US venous doppler to assess for acute DVT. See detailed history of this above. PG Care Time/CCT Total # of Minutes Spent Total Time Spent with Patient: Total time spent is greater than 50% in coordination of care (as documented) at patient's floor/unit and/or counseling patient: Coding [place] [address] INT INP/OBS CARE MIN Patient Type Established Medical Decision Making Moderate Complexity Diagnoses Acute cholecystitis K81.0 Chronic deep vein thrombosis (DVT) I82.509 Interstitial lung disease J84.9 Hypothyroidism (acquired) E03.9 GERD (gastroesophageal reflux disease) K21.9 Essential hypertension I10 Hypertension type: essential hypertension CKD (chronic kidney disease), stage IV N18.4 Tremor R25.1 Anemia D64.9 (6) HTN (hypertension) Hypertension type: essential hypertension Qualified Code(s): I10 - Essential (primary) hypertension
--- NOTE | 2023-05-10 15:42 | XRay Report ---
XR chest 1V portable CLINICAL HISTORY: pre-op TECHNIQUE: Single frontal radiograph of the chest was obtained. Comparison: Comparison is made to chest radiograph 01/09/2023 FINDINGS: No lines and tubes are seen. The cardiomediastinal silhouette is normal. Lungs are underinflated but clear. There is mild interstitial disease. No evidence of pleural effusion or pneumothorax. IMPRESSION: No acute chest disease. ACT 112: Negative or not required by law. Electronically signed by: Jorge Tierney M.D. 05/10/2023 3:41 PM
[2023-05-10] MEDS ORDERED: metroNIDAZOLE 500 MG/100 ML BAG IV ONE (15:48)
--- NOTE | 2023-05-10 15:48 | Electrocardiogram Report ---
Test Reason : Blood Pressure : / mmHG Vent. Rate : 081 BPM Atrial Rate : 081 BPM P-R Int : 182 ms QRS Dur : 088 ms QT Int : 376 ms P-R-T Axes : 041 -22 039 degrees QTc Int : 436 ms Normal sinus rhythm Normal ECG When compared with ECG of 09-JAN-2023 17:25, No significant change was found Confirmed by Robinson Mcintosh ([id number]) on 05/10/2023 3:47:45 PM Referred By: REFERRED SELF Confirmed By:Robinson Mcintosh
[2023-05-10] MEDS ORDERED: cefTRIAXone SODIUM 2,000 MG in DEXTROSE 5 % MINI-B 50 ML IV STA (16:06)
[2023-05-10] MEDS ORDERED: PLASMA-LYTE A 1,000 ML IV ONE (16:11)
--- NOTE | 2023-05-10 16:13 | Surgery Consultation ---
Date of Consultation May 10, 2023 Assessment & Plan (1) Acute cholecystitis due to biliary calculus: Assessment: Patient is a 78 years old female prepped presenting ED with a 3-day history right upper quadrant pain. CT scan diagnosis acute cholecystitis. Plan: No emergency surgical cholecystectomy indication now recommend conservative treatment now. Patient can have a clear diet if patient tolerates. IV antibiotic. Control pain. Repeat the labs tomorrow morning. Hold the Xarelto for now. May use Lovenox 30 mg SQ at once a day. Based on the patient abdominal pain history over 72 hours, and gallbladder wall thickening 3.5 mm, CT indicated a high risk for injury biliary tree and vascular structure if patient had a early cholecystectomy. again cooling down gallbladder first. depend on pt doing, decide to do inpatient or outpatient cholecystectomy next week. pt will be admitted to hospital by hospitalist. pt agreed with the plan. I answered all questions. D/W hospitalist. will F/U, thanks. History of Present Illness Reason for Consultation: cholecystitis Requesting Physician: Marcial Lynn MD History of Present Illness CC: Abdominal pain HPI: Patient is a 78 years old female with PMH for significant of DVT on the left low leg ( on Xarelto),, prior fracture of lumbar vertebra, thoracic compression fracture, hypothyroidism, GERD, HTN, CKD stage IV, follicular lymphoma, and tremor. Patient presented to ED with 3-day history right upper quadrant pain, with some nausea no vomiting, the pain is dull, not radiated to the back. Patient denies any fever, no diarrhea, no chest pain. Patient had a CT scan diagnosis of acute cholecystitis with gallstone. Allergies Allergy/AdvReac Type Severity Reaction Status Date / Time nitrofurantoin Allergy Intermediate HIVES,ITCHI Verified 04/23/23 10:47 NG azithromycin [From Zithromax] Allergy HIVES Verified 04/23/23 10:47 tramadol AdvReac Mild nausea Verified 04/23/23 10:47 Home Medications Medication Instructions Recorded Confirmed Type aspirin 81 mg tablet,delayed 81 mg PO QAM 06/06/18 05/10/23 History release denosumab 60 mg/mL subcutaneous 60 mg subcut Q6MO 02/25/19 05/10/23 History syringe lancets 33 gauge (OnLivesammy #100 ea 07/13/20 04/23/23 History Lancets) blood sugar diagnostic (OneTouch #10 ea 12/08/21 04/23/23 History Ultra Blue Test Strip) albuterol sulfate 90 mcg/actuation 2 puff inhalation QID PRN 03/05/22 05/10/23 Rx aerosol inhaler (Ventolin HFA) shortness of breath or wheezing #6.7 grams calcium carbonate 500 mg calcium 500 mg PO QAM 06/29/22 05/10/23 History (1,250 mg) chewable tablet (Calcium 500) pyridoxine (vitamin B6) 100 mg 100 mg PO Q OTHER DAY 06/29/22 05/10/23 History tablet albuterol sulfate 2.5 mg/3 mL 2.5 mg inhalation Q8H PRN 01/09/23 05/10/23 History (0.083 %) solution for nebulization Shortness Of Breath Or Wheezing carbidopa 10 mg-levodopa 100 mg 1.5 tab PO TID 01/09/23 05/10/23 History tablet cyanocobalamin (vitamin B-12) 500 500 mcg PO QAM 01/09/23 05/10/23 History mcg tablet hydrocortisone acetate 25 mg 25 mg CO BID PRN Hemorrhoids 01/09/23 05/10/23 History rectal suppository (Anusol-HC) levothyroxine 88 mcg tablet 88 mcg PO DAILYBB 01/09/23 05/10/23 History dexlansoprazole 60 mg 60 mg PO QAM #90 caps 01/25/23 05/10/23 Rx capsule,biphase delayed release (Dexilant) atorvastatin 80 mg tablet 80 mg PO HS #90 tabs 02/12/23 05/10/23 Rx metoprolol succinate 50 mg 50 mg PO QAM #90 tabs 02/21/23 05/10/23 Rx tablet,extended release 24 hr valacyclovir 500 mg tablet 500 mg PO DAILY PRN breakout #14 02/21/23 05/10/23 Rx tabs fluticasone propionate 50 2 spray intranasal QAM PRN Allergy 03/01/23 05/10/23 Rx mcg/actuation nasal Symptoms #16 grams spray,suspension Patient History Medical History Acute kidney injury Ankle edema, bilateral Arthritis Asymptomatic menopausal state Blood glucose abnormal Cardiomyopathy Cholelithiasis Chronic deep vein thrombosis (DVT) Chronic deep vein thrombosis of left lower extremity Chronic fatigue syndrome Chronic GERD Chronic kidney disease Chronic laryngitis Chronic pharyngitis Cigarette smoker motivated to quit Compression fracture of lumbar vertebra Constipation Cough Deep vein thrombosis of distal lower extremity Depression Dermatitis, eczematoid Diabetes mellitus (11/29/12) Dizziness DVT (deep venous thrombosis) Dyspnea on exertion Dysuria Gastropathy GERD (gastroesophageal reflux disease) GI bleed Hearing loss Hematuria Hematuria, microscopic Herpes simplex Hoarseness Hyperglycemia Hyperlipidemia Hypothyroidism Hypothyroidism (acquired) Interstitial lung disease Iron deficiency anemia Ischemic colitis Kidney stones Laryngitis Leg length discrepancy Lightheadedness Low back pain Lumbar spinal stenosis Muscle spasm Nasal dryness Nicotine dependence NSTEMI (non-ST elevated myocardial infarction) 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 Osteopenia (11/29/12) Pneumonia Prediabetes 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 Recurrent UTI Rib pain on right side Right-sided headache Secondary hyperparathyroidism (of renal origin) Secondary hyperparathyroidism of renal origin Shortness of breath Sinusitis SNHL (sensorineural hearing loss) Solitary pulmonary nodule Stroke-like symptoms Subsequent non-ST elevation (NSTEMI) myocardial infarction Takotsubo syndrome Tendinitis of left rotator cuff Thyroid disease Type 2 diabetes mellitus without complication Vertigo Surgical History History of History of D&C History of tubal ligation Hx of colonoscopy Family History Mother Leukemia Hypertension Father Myocardial infarction Diabetes Other Family history non-contributory Denies family history of Ovarian cancer Prostate cancer Breast cancer Lung cancer Social History Smoking Status: Current some day smoker Tobacco Type: Cigarettes Cigarettes Per Day: 1 cigarette every week; Second Hand Exposure: No; Do You Dip or Chew Tobacco: No; Hx Alcohol Use: No Hx Substance Use: Yes Last Used Substance: Hours (ago) Preferred Language: Norwegian Communication Ability: Effective Visual Impairment: No Limitations Hearing Ability: Use of Hearing Aid 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 Beliefs That Will Affect Care: None marital status: Current Living Situation: Alone Current Living Situation Comment: Has a caregiver current occupational status: retired Feels Safe at Home: Yes Childhood Exposure to Second-Hand Smoke: Yes caffeine: No Dental Care, Regularly: No Physical Activity Frequency: Does not Exercise Seatbelt Use: always Sunscreen Use: No Assistive Devices: Cane Review of Systems Constitutional: as per Subjective / HPI Eyes: as per Subjective / HPI Respiratory: Reactive airway disease Cardiovascular: Additional Comments: Hypertension Gastrointestinal: GERD Musculoskeletal: Thoracic compression fracture Neurologic: Tremor Psychiatric: as per Subjective / HPI Endocrine: Thyroidism, hyperparathyroidism Hematologic / Lymphatic: Lymphoma Physical Exam Constitutional: No distress Eyes: PERRL, conjunctivae normal, anicteric sclerae Neck: trachea midline, no thyromegaly Respiratory: normal respiratory effort, lungs clear to auscultation Cardiovascular: RRR, no murmur, no edema Gastrointestinal (Abdomen): normal bowel sounds, soft, nontender, no hepatosplenomegaly soft, mild tenderness at RUQ, no rebound pain, no distend, BS +. Musculoskeletal: no cyanosis or clubbing, extremities motor strength 5/5 Neurologic: patellar DTR's 2+ bilat, sensation intact Psychiatric: A+Ox3, euthymic affect Results & Data Vital Signs (Past 12 Hours) Vital Signs Temp Pulse Pulse Resp BP BP Pulse Ox 05/10/23 14:30 86 24 116/62 96 05/10/23 14:03 84 21 116/62 92 05/10/23 13:10 82 20 121/45 L 96 05/10/23 11:57 91 H 05/10/23 11:47 36.6 C 91 H 14 121/45 L 96 O2 Del Method 05/10/23 14:30 Room Air 05/10/23 14:03 Room Air 05/10/23 13:10 Room Air 05/10/23 11:57 05/10/23 11:47 Room Air Laboratory Results Lab Results 05/10/23 Range/Units 12:40 WBC 6.89 (4.8-10.8) K/ul RBC 3.42 L (4.20-5.40) M/uL Hgb 11.3 L (12.0-16.0) g/dl Hct 35.2 L (37.0-47.0) % MCV 102.9 H (80.0-100.0) fL MCH 33.0 (25.0-34.0) pg MCHC 32.1 (32.0-36.0) g/dL RDW Std Deviation 52.1 H (36.4-46.3) fL RDW Coeff of Damien 13.7 (11.5-14.5) % Plt Count 394 (130-400) K/uL MPV 10.1 (9.4-12.4) fL Immature Gran % (Auto) 1.2 % Neut % (Auto) 62.7 % Lymph % (Auto) 22.9 % [place] % (Auto) 10.3 % Eos % (Auto) 2.2 % Baso % (Auto) 0.7 % Neut # (Auto) 4.32 (1.40-6.50) K/uL Lymph # (Auto) 1.58 (1.20-3.40) K/uL [place] # (Auto) 0.71 H (0.11-0.59) K/uL Eos # (Auto) 0.15 (0.00-0.50) K/uL Baso # (Auto) 0.05 (0.00-0.20) K/uL Immature Gran # (Auto) 0.08 (0.01-0.20) K/uL Sodium 136 (136-145) mmol/L Potassium 4.0 (3.5-5.1) mmol/L Chloride 100 (98-107) mmol/L Carbon Dioxide 30 (21-32) mmol/L Anion Gap 6 (3-11) BUN 22 (6-23) mg/dl Creatinine 1.61 H (0.6-1.2) mg/dl Est Cr Clr Drug Dosing 18.5 ml/min Est GFR ( Amer) 34.6 ml/min Est GFR (Non-Af Amer) 29.9 ml/min BUN/Creatinine Ratio 13.7 (10-20) Glucose 125 H (70-99(Fasting)) mg/dl Calcium 9.1 (8.6-10.3) mg/dl Magnesium 1.3 L (1.7-2.4) mg/dl Total Bilirubin 0.3 (0.2-1.0) mg/dl Direct Bilirubin 0.0 (0-0.2) mg/dl AST 18 (13-39) U/L ALT < 3 L (7-52) U/L Alkaline Phosphatase 87 (34-104) U/L Total Protein 6.9 (6.0-8.3) gm/dl Albumin 3.4 (3.4-5.0) gm/dl Lipase 15 (11-82) U/L Diagnostic Findings CT abd pelvis wo con CLINICAL HISTORY: right abdominal pain TECHNIQUE: Helical axial images of the abdomen and pelvis were obtained. Automated dose lowering techniques and/or adjustment according to patient size were utilized for this exam. This exam was performed without intravenous contrast. CT DOSE: 808.95 mGy.cm COMPARISON: Comparison is made to CT abdomen pelvis 03/23/2019 FINDINGS: Lower chest: Interstitial thickening is seen. Liver: Unremarkable. No focal lesions are seen. Gallbladder and biliary tree: Gallbladder thickening and stones are seen, the gallbladder wall measures 3.5 mm. Pericholecystic fat stranding is noted. Common bile duct is 9 mm in diameter, slightly above expected size for age. Pancreas: Unremarkable, no focal lesions. Spleen: Unremarkable. Adrenals: Unremarkable. Kidneys and ureters: Renal cysts are seen. Nonobstructive stones are seen in the kidneys. Bladder: Unremarkable. Reproductive organs: Unremarkable. Bowel: The appendix is normal. Lymph nodes Retroperitoneal: Unremarkable. Pelvic: Unremarkable. Mesenteric: Unremarkable. Peritoneum: Postsurgical changes are seen in the anterior abdominal wall. Vessels: Atherosclerotic calcifications are seen. Abdominal wall: Fat stranding is in the region of the right upper quadrant. Bones: Numerous compression deformities are seen in the spine with interval development of a L1 compression deformity. These appear chronic. Degenerative disc disease is seen. Old healed rib fractures are seen. Chronic appearing transverse process fractures are noted. There is a left medullary nail. IMPRESSION: Gallbladder wall thickening and right upper quadrant stranding, clinical correlation for acute cholecystitis is recommended. ACT 112: Negative or not required by law. Electronically signed by: Jorge Tierney M.D. 05/10/2023 2:09 PM
[2023-05-10] MEDS ORDERED: HYDROmorphone INJ 0.5 MG/0.5 ML SYR IV PRN (16:17)
[2023-05-10] MEDS ORDERED: CARBIDOPA/LEVODOP 10/100MG TAB PO STA (16:46)
--- NOTE | 2023-05-10 17:05 | XRay Report ---
XR chest 1V portable CLINICAL HISTORY: pre-operative clearance COMPARISON STUDY: Chest CT January 11, 2023 and chest radiograph May 10, 2023. FINDINGS: Low lung volumes are again noted. Interstitial thickening is chronic. There is no evidence for pulmonary edema. Cardiomegaly is unchanged. There is no pneumothorax or pleural effusion. There i s no consolidation to suggest pneumonia. IMPRESSION: No acute cardiopulmonary findings. ACT 112: Negative or not required by law. Electronically signed by: Nik Will M.D. 05/10/2023 5:04 PM
[2023-05-10] MEDS: MAGNESIUM SULFATE / D5W 1 GM/100 ML BAG IV SCH ×2 (17:12→20:11)
[2023-05-10] MEDS ORDERED: ALBUTEROL 0.083% NEBU SOLN 3 ML VIAL INH PRN (18:24)
[2023-05-10] MEDS: PLASMA-LYTE A 1,000 ML IV SCH (18:43)
[2023-05-10] MEDS: CARBIDOPA/LEVODOP 10/100MG TAB PO SCH (20:11)
[2023-05-10] MEDS: ATORVASTATIN 40 MG TAB PO SCH (20:12)
[2023-05-10 21:09] LABS: INR 0.9 (0.9-1.1); Partial Thromboplastin Time 27.6 Seconds (21.0-31.0); Prothrombin Time 10.1 Seconds (9.0-12.0)
--- NOTE | 2023-05-10 23:08 | Ultrasound Report ---
ULTRASOUND BILATERAL LOWER EXTREMITY VENOUS CLINICAL HISTORY: Bilateral lower extremity edema COMPARISON STUDY: Bilateral lower extremity venous ultrasound dated 09/09/2021. Left lower extremity v enous ultrasound dated 04/17/2022. TECHNIQUE: Real-time, grayscale, and color Doppler sonography of the deep veins of the right and left lower extremity was performed from the inguinal crease to the calf. Compression and augmentation wer e utilized. FINDINGS: Right lower extremity: There is no sonographic evidence of deep venous thrombosis identified in the r ight lower extremity. The common femoral, superficial femoral, and popliteal veins are patent and nor muna compressible. The greater saphenous vein and the profunda femoris vein at the junction with the common femoral vein are clear. The visualized calf veins are patent. Left lower extremity: There is no sonographic evidence of acute deep venous thrombosis in the left lo wer extremity. A small amount of chronic thrombus is seen throughout the left lower extremity within the common femoral, superficial femoral, and popliteal veins. The vessels remain compressible. The gr eater saphenous vein and the profunda femoris vein at the junction with the common femoral vein are c lear. The visualized calf veins are patent. IMPRESSION: 1. There is no sonographic evidence of acute deep venous thrombosis in the right or left lower extrem ity. 2. A small amount of chronic thrombus is seen throughout the left lower extremity as above. ACT 112: Negative or not required by law. Electronically signed by: Saol Morales M.D. 05/10/2023 11:05 PM
[2023-05-10] MEDS: metroNIDAZOLE 500 MG/100 ML BAG IV SCH (23:09)
[2023-05-10] MEDS: HEPARIN SOD 5,000 UNIT/0.5 ML VIAL SQ SCH (23:10)
[2023-05-11] MEDS: ACETAMINOPHEN 325 MG TAB PO PRN ×4 (00:47→23:06)
[2023-05-11 05:06] LABS: Basophils # (auto) 0.05 K/uL (0.00-0.20); Basophils % (auto) 0.7 %; Eosinophils # (auto) 0.24 K/uL (0.00-0.50); Eosinophils % (auto) 3.2 %; Hematocrit (blood only) 30.4 % (37.0-47.0); Hemoglobin 9.7 g/dl (12.0-16.0); Immature Granulocytes # (auto) 0.07 K/uL (0.01-0.20); Immature Granulocytes % (auto) 0.9 %; Lymphocytes # (auto) 1.71 K/uL (1.20-3.40); Lymphocytes % (auto) 23.1 %; Mean Corpuscular Hemoglobin 33.4 pg (25.0-34.0); Mean Corpuscular Hgb Conc 31.9 g/dL (32.0-36.0); Mean Corpuscular Volume 104.8 fL (80.0-100.0); Mean Platelet Volume 9.9 fL (9.4-12.4); Monocytes # (auto) 0.65 K/uL (0.11-0.59); Monocytes % (auto) 8.8 %; Neutrophils # (auto) 4.69 K/uL (1.40-6.50); Neutrophils % (auto) 63.3 %; Platelet Count 335 K/uL (130-400); RDW Coefficient of Variation 13.7 % (11.5-14.5); White Blood Count 7.41 K/ul (4.8-10.8)
[2023-05-11 05:24] LABS: INR 0.9 (0.9-1.1); Prothrombin Time 10.3 Seconds (9.0-12.0)
[2023-05-11 05:38] LABS: Albumin Level 2.8 gm/dl (3.4-5.0); Anion Gap 6 (3-11); Bilirubin,Total 0.2 mg/dl (0.2-1.0); Calcium 7.7 mg/dl (8.6-10.3); Carbon Dioxide 28 mmol/L (21-32); Chloride 103 mmol/L (98-107); Magnesium 2.3 mg/dl (1.7-2.4); Potassium 4.4 mmol/L (3.5-5.1); Sodium 137 mmol/L (136-145)
[2023-05-11 05:45] LABS: Alanine Aminotransferase < 3 U/L (7-52); Alkaline Phosphatase 74 U/L (34-104); Aspartate Aminotransferase 18 U/L (13-39); BUN Creatinine Ratio 11.5 (10-20); Blood Urea Nitrogen 15 mg/dl (6-23); Creatinine Clr Calc Pharmacy 22.9 ml/min; Est GFR (African American) 44.9 ml/min; Est GFR (Non-African American) 38.7 ml/min; Globulin 2.7 gm/dl (2.5-4.0); Glucose 99 mg/dl (70-99(Fasting)); Total Protein 5.5 gm/dl (6.0-8.3)
[2023-05-11] MEDS: HEPARIN SOD 5,000 UNIT/0.5 ML VIAL SQ SCH ×3 (06:00→21:43)
[2023-05-11] MEDS: LEVOTHYROXINE SODIUM 88 MCG TABLET PO SCH (06:00)
[2023-05-11] MEDS: PLASMA-LYTE A 1,000 ML IV SCH (08:46)
[2023-05-11] MEDS: metroNIDAZOLE 500 MG/100 ML BAG IV SCH ×2 (08:46→15:50)
[2023-05-11] MEDS: PANTOprazole 40 MG TAB PO SCH (08:48)
[2023-05-11] MEDS: ASPIRIN 81 MG ECTAB PO SCH (08:48)
[2023-05-11] MEDS: METOPROLOL SUCC 50MG EXT REL TAB PO SCH (08:48)
[2023-05-11] MEDS: CARBIDOPA/LEVODOP 10/100MG TAB PO SCH ×3 (08:49→21:43)
[2023-05-11 12:30] LABS: Hematocrit (blood only) 31.6 % (37.0-47.0); Hemoglobin 9.8 g/dl (12.0-16.0); Mean Corpuscular Hemoglobin 32.8 pg (25.0-34.0); Mean Corpuscular Volume 105.7 fL (80.0-100.0); Mean Platelet Volume 9.5 fL (9.4-12.4); Platelet Count 321 K/uL (130-400); RDW Coefficient of Variation 13.8 % (11.5-14.5); RDW Standard Deviation 53.8 fL (36.4-46.3); Red Blood Count 2.99 M/uL (4.20-5.40); White Blood Count 6.39 K/ul (4.8-10.8)
[2023-05-11 12:50] LABS: Albumin Level 2.8 gm/dl (3.4-5.0); Bilirubin,Total 0.2 mg/dl (0.2-1.0); Calcium 7.7 mg/dl (8.6-10.3); Potassium 4.2 mmol/L (3.5-5.1)
[2023-05-11 12:57] LABS: BUN Creatinine Ratio 10.2 (10-20); C Reactive Protein 7.91 mg/dl (0-0.5); Creatinine Clr Calc Pharmacy 22.8 ml/min; Est GFR (African American) 45.7 ml/min; Est GFR (Non-African American) 39.4 ml/min; Globulin 2.8 gm/dl (2.5-4.0); Total Protein 5.6 gm/dl (6.0-8.3)
[2023-05-11] MEDS ORDERED: PNEUMOCOCCAL VACCINE (PCV20) 20-VAL CONJ-DIP CRM/PF 0.5 ML SYR IM ONE (13:00)
--- NOTE | 2023-05-11 13:23 | Surgery Progress Note ---
Date of Service May 11, 2023 Assessment & Plan (1) Acute cholecystitis due to biliary calculus: Plan: Assessment: Patient is a 78 years old female prepped presenting ED with a 3-day history right upper quadrant pain. CT scan diagnosis acute cholecystitis. Plan: No emergency surgical cholecystectomy indication now recommend conservative treatment now. Patient can have a clear diet if patient tolerates. IV antibiotic. Control pain. Repeat the labs tomorrow morning. Hold the Xarelto for now. May use Lovenox 30 mg SQ at once a day. Based on the patient abdominal pain history over 72 hours, and gallbladder wall thickening 3.5 mm, CT indicated a high risk for injury biliary tree and vascular structure if patient had a early cholecystectomy. again cooling down gallbladder first. depend on pt doing, decide to do inpatient or outpatient cholecystectomy next week. pt will be admitted to hospital by hospitalist. pt agreed with the plan. I answered all questions. D/W hospitalist. will F/U, thanks. 05/11/2023 1:[address] Monsalve F/U cholecystitis with gallstone doing better, no abdominal pain, tolerated clear diet, full liquid diet today, Patient can be discharged tomorrow if patient tolerated full liquid diet Follow-up with me 2 weeks. For possible schedule cholecystectomy outpatient setting. Patient agreed with the plan, I answered all questions. Admission and Anticipated Discharge Date Admission Date: May 10, 2023 Subjective F/U cholecystitis with gallstone. pt is doing better, no abdominal pain, no nausea, no vomiting, no fever, normal WBC. Physical Exam Eyes: PERRL, conjunctivae normal, anicteric sclerae Neck: trachea midline, no thyromegaly Respiratory: normal respiratory effort, lungs clear to auscultation Cardiovascular: RRR, no murmur, no edema Gastrointestinal (Abdomen): normal bowel sounds, soft, nontender, no hepatosplenomegaly soft, NT, ND, BS +, Musculoskeletal: no cyanosis or clubbing, extremities motor strength 5/5 Neurologic: patellar DTR's 2+ bilat, sensation intact Psychiatric: A+Ox3, euthymic affect Results & Data Vital Signs (Past 12 Hours) Vital Signs Temp Pulse Pulse Resp BP BP Pulse Ox 05/11/23 11:36 36.4 C L 71 16 86/49 L 91/60 L 100 05/11/23 11:19 05/11/23 08:27 71 18 101/62 100 05/11/23 07:56 100/61 05/11/23 07:56 67 05/11/23 07:19 36.8 C 77 18 87/46 L 89 L 05/11/23 02:58 36.8 C 71 16 102/57 L 96 O2 Del Method O2 Flow Rate 05/11/23 11:36 Nasal Cannula 05/11/23 11:19 Nasal Cannula 2 05/11/23 08:27 Nasal Cannula 2 05/11/23 07:56 05/11/23 07:56 05/11/23 07:19 Room Air 05/11/23 02:58 Nasal Cannula 2 Laboratory Results Lab Results 05/10/23 05/10/23 05/11/23 Range/Units 12:40 20:47 04:13 WBC 6.89 7.41 (4.8-10.8) K/ul RBC 3.42 L 2.90 L (4.20-5.40) M/uL Hgb 11.3 L 9.7 L (12.0-16.0) g/dl Hct 35.2 L 30.4 L (37.0-47.0) % MCV 102.9 H 104.8 H (80.0-100.0) fL MCH 33.0 33.4 (25.0-34.0) pg MCHC 32.1 31.9 L (32.0-36.0) g/dL RDW Std Deviation 52.1 H 53.0 H (36.4-46.3) fL RDW Coeff of Damien 13.7 13.7 (11.5-14.5) % Plt Count 394 335 (130-400) K/uL MPV 10.1 9.9 (9.4-12.4) fL Immature Gran % (Auto) 1.2 0.9 % Neut % (Auto) 62.7 63.3 % Lymph % (Auto) 22.9 23.1 % [place] % (Auto) 10.3 8.8 % Eos % (Auto) 2.2 3.2 % Baso % (Auto) 0.7 0.7 % Neut # (Auto) 4.32 4.69 (1.40-6.50) K/uL Lymph # (Auto) 1.58 1.71 (1.20-3.40) K/uL [place] # (Auto) 0.71 H 0.65 H (0.11-0.59) K/uL Eos # (Auto) 0.15 0.24 (0.00-0.50) K/uL Baso # (Auto) 0.05 0.05 (0.00-0.20) K/uL Immature Gran # (Auto) 0.08 0.07 (0.01-0.20) K/uL PT 10.1 10.3 (9.0-12.0) Seconds INR 0.9 0.9 (0.9-1.1) APTT 27.6 (21.0-31.0) Seconds PTT Ratio 1.0 Sodium 136 137 (136-145) mmol/L Potassium 4.0 4.4 (3.5-5.1) mmol/L Chloride 100 103 (98-107) mmol/L Carbon Dioxide 30 28 (21-32) mmol/L Anion Gap 6 6 (3-11) BUN 22 15 (6-23) mg/dl Creatinine 1.61 H 1.30 H D (0.6-1.2) mg/dl Est Cr Clr Drug Dosing 18.5 22.9 ml/min Est GFR ( Amer) 34.6 44.9 ml/min Est GFR (Non-Af Amer) 29.9 38.7 ml/min BUN/Creatinine Ratio 13.7 11.5 (10-20) Glucose 125 H 99 (70-99(Fasting)) mg/dl Lactate (0.4-2.0) mmol/L Calcium 9.1 7.7 L (8.6-10.3) mg/dl Magnesium 1.3 L 2.3 (1.7-2.4) mg/dl Total Bilirubin 0.3 0.2 (0.2-1.0) mg/dl Direct Bilirubin 0.0 (0-0.2) mg/dl AST 18 18 (13-39) U/L ALT < 3 L < 3 L (7-52) U/L Alkaline Phosphatase 87 74 (34-104) U/L C-Reactive Protein (0-0.5) mg/dl Total Protein 6.9 5.5 L D (6.0-8.3) gm/dl Albumin 3.4 2.8 L (3.4-5.0) gm/dl Globulin 2.7 (2.5-4.0) gm/dl Albumin/Globulin Ratio 1.0 (0.9-2) Lipase 15 (11-82) U/L 05/11/23 05/11/23 Range/Units 12:14 12:17 WBC 6.39 (4.8-10.8) K/ul RBC 2.99 L (4.20-5.40) M/uL Hgb 9.8 L (12.0-16.0) g/dl Hct 31.6 L (37.0-47.0) % MCV 105.7 H (80.0-100.0) fL MCH 32.8 (25.0-34.0) pg MCHC 31.0 L (32.0-36.0) g/dL RDW Std Deviation 53.8 H (36.4-46.3) fL RDW Coeff of Damien 13.8 (11.5-14.5) % Plt Count 321 (130-400) K/uL MPV 9.5 (9.4-12.4) fL Immature Gran % (Auto) % Neut % (Auto) % Lymph % (Auto) % [place] % (Auto) % Eos % (Auto) % Baso % (Auto) % Neut # (Auto) (1.40-6.50) K/uL Lymph # (Auto) (1.20-3.40) K/uL [place] # (Auto) (0.11-0.59) K/uL Eos # (Auto) (0.00-0.50) K/uL Baso # (Auto) (0.00-0.20) K/uL Immature Gran # (Auto) (0.01-0.20) K/uL PT (9.0-12.0) Seconds INR (0.9-1.1) APTT (21.0-31.0) Seconds PTT Ratio Sodium 138 (136-145) mmol/L Potassium 4.2 (3.5-5.1) mmol/L Chloride 104 (98-107) mmol/L Carbon Dioxide 28 (21-32) mmol/L Anion Gap 6 (3-11) BUN 13 (6-23) mg/dl Creatinine 1.28 H (0.6-1.2) mg/dl Est Cr Clr Drug Dosing 22.8 ml/min Est GFR ( Amer) 45.7 ml/min Est GFR (Non-Af Amer) 39.4 ml/min BUN/Creatinine Ratio 10.2 (10-20) Glucose 113 H (70-99(Fasting)) mg/dl Lactate 0.8 (0.4-2.0) mmol/L Calcium 7.7 L (8.6-10.3) mg/dl Magnesium (1.7-2.4) mg/dl Total Bilirubin 0.2 (0.2-1.0) mg/dl Direct Bilirubin (0-0.2) mg/dl AST 19 (13-39) U/L ALT 4 L (7-52) U/L Alkaline Phosphatase 77 (34-104) U/L C-Reactive Protein 7.91 H (0-0.5) mg/dl Total Protein 5.6 L (6.0-8.3) gm/dl Albumin 2.8 L (3.4-5.0) gm/dl Globulin 2.8 (2.5-4.0) gm/dl Albumin/Globulin Ratio 1.0 (0.9-2) Lipase (11-82) U/L
[2023-05-11] MEDS ORDERED: LORATADINE 10 MG TAB PO ONE (15:28)
[2023-05-11 17:11] LABS: Appearance Urine Clear (Clear); Bilirubin Urine Negative (Negative); Blood Urine Negative (Negative); Color Urine Yellow; Glucose Urine UA Negative (Negative); Ketones Urine Negative (Negative); Leukocyte Esterase Urine Negative (Negative); Nitrite Urine Negative (Negative); Protein Urine Negative (Negative); Specific Gravity Urine 1.013 (1.000-1.030); Urobilinogen Urine Negative (Negative); pH Urine 5.5 (4.5-7.5)
[2023-05-11] MEDS ORDERED: cefTRIAXone SODIUM 2,000 MG in DEXTROSE 5 % MINI-B 50 ML IV SCH (18:00)
[2023-05-11] MEDS: ATORVASTATIN 40 MG TAB PO SCH (21:42)
--- NOTE | 2023-05-11 22:21 | Hospitalist Progress Note ---
Date of Service May 11, 2023 Assessment & Plan (1) Acute cholecystitis: Plan: -Admit to med/tele -Currently stable, asymptomatic, and non-toxic appearing -Presented to the ED with 3 days of progressive RUQ pain -CT of the abd/pelvis showed Gallbladder wall thickening and right upper quadrant stranding concerning for acute cholecystitis -LFT's are WNL, no leukocytosis, has been afebrile -General surgery consulted. -S/P one dose of Cefoxitin in the ED, will continue with Ceftriaxone and Flagyl for now -S/P 1L NSS in the ED, will give 1L Normosol on admission then continue maintenance Normosol moving forward -Tylenol and IV Dilaudid for pain -Diet advanced to clears. Appreciate input from General surgeon, will monitor over course of weekend and continue IV antibiotics. -Will start SQ heparin for DVT PPX -reviewed labs (2) Chronic deep vein thrombosis (DVT): Plan: -Previously on Elqiuis and Coumadin but these had to be discontinued due to complications -Was then on Xarelto but had to be discontinued due to renal function -Dr. Fredrick joseph, was consulted during last admission in December, recommended 81 mg aspirin daily -Will conitnue Aspirin at this time -U/S confirmed chornic DVT, but no new acute DVT. (3) Interstitial lung disease: Plan: -Stable on RA -Incentive spirometry and prn albuterol (4) Hypothyroidism (acquired): Plan: -Continue levothyroxine (5) GERD (gastroesophageal reflux disease): Plan: -Continue PPI (6) HTN (hypertension): Plan: -Stable -Conitnue metoprolol (7) CKD (chronic kidney disease), stage IV: Plan: -Currently stable -Monitor daily renal function (8) Tremor: Plan: -Continue Carbidopa-Levodopa (9) Anemia: Plan: -Stable -Continue B12 Admission and Anticipated Discharge Date Admission Date: May 10, 2023 Subjective Patient reports no new complaints. Review of Systems Review of Systems: All systems reviewed & are unremarkable except as noted in HPI & below Physical Exam Physical Exam: General: In no acute distress, stated age, well-nourished, non-toxic appearing HEENT: Normocephalic, atraumatic Chest/Pulm: No respiratory distress, symmetrical chest expansion, scattered expiratory wheezing Cardiac: RRR, no murmurs noted Abdomen: soft, non tender, negative alaniz's sign, negative rebound tenderness throughout Musculoskeletal: Symmetrical and without signs of acute trauma, upper and lower extremities with full ROM, no atrophy, spasticity, or flaccidity Extremities: Radial, dorsalis pedis, and posterior tibial pulses are intact and symmetrical, RLE is mildly swollen compared to right, no significant pitting edema BL Skin: Warm, dry, no rashes , lesions, or scars noted Neuro: Alert and oriented to person, place, month, year, and president, no focal defects, baseline tremor noted Psych: No acute distress, calm and cooperative during the exam Results & Data Results & Data Vital Signs (Past 12 Hours) Vital Signs Temp Pulse Pulse Resp BP BP Pulse Ox 05/11/23 19:44 36.5 C 67 18 99/53 L 100 05/11/23 17:28 70 05/11/23 15:13 37.1 C 69 18 96/49 L 100 05/11/23 11:36 36.4 C L 71 16 86/49 L 91/60 L 100 05/11/23 11:19 O2 Del Method O2 Flow Rate 05/11/23 19:44 Nasal Cannula 1 05/11/23 17:28 05/11/23 15:13 Nasal Cannula 2 05/11/23 11:36 Nasal Cannula 05/11/23 11:19 Nasal Cannula 2 PG Care Time/CCT Total # of Minutes Spent Total Time Spent with Patient: Total time spent is greater than 50% in coordination of care (as documented) at patient's floor/unit and/or counseling patient: Coding Level of Care Code 91203 SUB INP/OBS CARE 235MIN Diagnoses Acute cholecystitis K81.0 Chronic deep vein thrombosis (DVT) I82.509 Interstitial lung disease J84.9 Hypothyroidism (acquired) E03.9 GERD (gastroesophageal reflux disease) K21.9 Essential hypertension I10 Hypertension type: essential hypertension CKD (chronic kidney disease), stage IV N18.4 Tremor R25.1 Anemia D64.9 (6) HTN (hypertension) Hypertension type: essential hypertension Qualified Code(s): I10 - Essential (primary) hypertension
[2023-05-12] MEDS: metroNIDAZOLE 500 MG/100 ML BAG IV SCH ×3 (01:25→16:00)
[2023-05-12 05:34] LABS: Basophils # (auto) 0.02 K/uL (0.00-0.20); Basophils % (auto) 0.3 %; Eosinophils # (auto) 0.24 K/uL (0.00-0.50); Eosinophils % (auto) 4.1 %; Hematocrit (blood only) 33.4 % (37.0-47.0); Hemoglobin 10.3 g/dl (12.0-16.0); Immature Granulocytes # (auto) 0.08 K/uL (0.01-0.20); Immature Granulocytes % (auto) 1.4 %; Lymphocytes # (auto) 1.07 K/uL (1.20-3.40); Lymphocytes % (auto) 18.2 %; Mean Corpuscular Hemoglobin 33.1 pg (25.0-34.0); Mean Corpuscular Hgb Conc 30.8 g/dL (32.0-36.0); Mean Corpuscular Volume 107.4 fL (80.0-100.0); Monocytes # (auto) 0.57 K/uL (0.11-0.59); Monocytes % (auto) 9.7 %; Neutrophils # (auto) 3.89 K/uL (1.40-6.50); Neutrophils % (auto) 66.3 %; Platelet Count 356 K/uL (130-400); RDW Standard Deviation 55.9 fL (36.4-46.3); Red Blood Count 3.11 M/uL (4.20-5.40); White Blood Count 5.87 K/ul (4.8-10.8)
[2023-05-12 05:46] LABS: Anion Gap 6 (3-11); BUN Creatinine Ratio 8.5 (10-20); Blood Urea Nitrogen 11 mg/dl (6-23); Calcium 7.4 mg/dl (8.6-10.3); Carbon Dioxide 29 mmol/L (21-32); Chloride 104 mmol/L (98-107); Creatinine Clr Calc Pharmacy 22.6 ml/min; Est GFR (African American) 45.3 ml/min; Est GFR (Non-African American) 39.1 ml/min; Glucose 90 mg/dl (70-99(Fasting)); Potassium 4.1 mmol/L (3.5-5.1); Sodium 139 mmol/L (136-145)
[2023-05-12 05:48] LABS: Alanine Aminotransferase < 3 U/L (7-52); Albumin Globulin Ratio 1.1 (0.9-2); Alkaline Phosphatase 78 U/L (34-104); Aspartate Aminotransferase 19 U/L (13-39); Bilirubin,Total 0.2 mg/dl (0.2-1.0); Globulin 2.8 gm/dl (2.5-4.0); Magnesium 1.9 mg/dl (1.7-2.4); Total Protein 5.8 gm/dl (6.0-8.3)
[2023-05-12] MEDS: LEVOTHYROXINE SODIUM 88 MCG TABLET PO SCH (06:12)
[2023-05-12] MEDS: HEPARIN SOD 5,000 UNIT/0.5 ML VIAL SQ SCH ×2 (06:12→14:27)
[2023-05-12] MEDS: ACETAMINOPHEN 325 MG TAB PO PRN ×2 (07:18→18:46)
[2023-05-12] MEDS: CARBIDOPA/LEVODOP 10/100MG TAB PO SCH ×3 (08:29→21:38)
[2023-05-12] MEDS: ASPIRIN 81 MG ECTAB PO SCH (08:29)
[2023-05-12] MEDS: PANTOprazole 40 MG TAB PO SCH (08:30)
[2023-05-12] MEDS: METOPROLOL SUCC 50MG EXT REL TAB PO SCH (08:30)
[2023-05-12] MEDS: LACTOBACILLUS ACIDOPHILUS 1 GM PACK PO SCH ×2 (16:00→16:01)
--- NOTE | 2023-05-12 16:00 | Surgery Progress Note ---
Date of Service May 12, 2023 Assessment & Plan (1) Acute cholecystitis due to biliary calculus: Plan: Assessment: Patient is a 78 years old female prepped presenting ED with a 3-day history right upper quadrant pain. CT scan diagnosis acute cholecystitis. Plan: No emergency surgical cholecystectomy indication now recommend conservative treatment now. Patient can have a clear diet if patient tolerates. IV antibiotic. Control pain. Repeat the labs tomorrow morning. Hold the Xarelto for now. May use Lovenox 30 mg SQ at once a day. Based on the patient abdominal pain history over 72 hours, and gallbladder wall thickening 3.5 mm, CT indicated a high risk for injury biliary tree and vascular structure if patient had a early cholecystectomy. again cooling down gallbladder first. depend on pt doing, decide to do inpatient or outpatient cholecystectomy next week. pt will be admitted to hospital by hospitalist. pt agreed with the plan. I answered all questions. D/W hospitalist. belem F/U, thanks. 05/11/2023 1:[address] Bello Bardales cholecystitis with gallstone doing better, no abdominal pain, tolerated clear diet, full liquid diet today, Patient can be discharged tomorrow if patient tolerated full liquid diet Follow-up with me 2 weeks. For possible schedule cholecystectomy outpatient setting. Patient agreed with the plan, I answered all questions. 05/12/2023 4:[address] Bello Bardales cholecystitis with gallstone doing better, no abdominal pain, tolerated diet, pt can be discharged from [facility], Follow-up with me 2 weeks. For possible schedule cholecystectomy outpatient setting. Patient agreed with the plan, I answered all questions. sign off, please call with questions, , Thanks. Admission and Anticipated Discharge Date Admission Date: May 10, 2023 Subjective no abdominal pain, tolerated diet, no fever. Physical Exam Eyes: PERRL, conjunctivae normal, anicteric sclerae Neck: trachea midline, no thyromegaly Respiratory: normal respiratory effort, lungs clear to auscultation Cardiovascular: RRR, no murmur, no edema Gastrointestinal (Abdomen): normal bowel sounds, soft, nontender, no hepatosplenomegaly Musculoskeletal: no cyanosis or clubbing, extremities motor strength 5/5 Neurologic: patellar DTR's 2+ bilat, sensation intact Psychiatric: A+Ox3, euthymic affect Results & Data Vital Signs (Past 12 Hours) Vital Signs Temp Pulse Pulse Resp BP Pulse Ox O2 Del Method 05/12/23 11:37 36.4 C L 72 20 98/61 L 97 Nasal Cannula 05/12/23 08:15 Nasal Cannula 05/12/23 07:59 37.2 C 88 20 110/63 94 Nasal Cannula 05/12/23 07:40 82 O2 Flow Rate 05/12/23 11:37 2 05/12/23 08:15 2 05/12/23 07:59 2 05/12/23 07:40 Laboratory Results Lab Results 05/10/23 05/10/23 05/11/23 Range/Units 12:40 20:47 04:13 WBC 6.89 7.41 (4.8-10.8) K/ul RBC 3.42 L 2.90 L (4.20-5.40) M/uL Hgb 11.3 L 9.7 L (12.0-16.0) g/dl Hct 35.2 L 30.4 L (37.0-47.0) % MCV 102.9 H 104.8 H (80.0-100.0) fL MCH 33.0 33.4 (25.0-34.0) pg MCHC 32.1 31.9 L (32.0-36.0) g/dL RDW Std Deviation 52.1 H 53.0 H (36.4-46.3) fL RDW Coeff of Damien 13.7 13.7 (11.5-14.5) % Plt Count 394 335 (130-400) K/uL MPV 10.1 9.9 (9.4-12.4) fL Immature Gran % (Auto) 1.2 0.9 % Neut % (Auto) 62.7 63.3 % Lymph % (Auto) 22.9 23.1 % [place] % (Auto) 10.3 8.8 % Eos % (Auto) 2.2 3.2 % Baso % (Auto) 0.7 0.7 % Neut # (Auto) 4.32 4.69 (1.40-6.50) K/uL Lymph # (Auto) 1.58 1.71 (1.20-3.40) K/uL [place] # (Auto) 0.71 H 0.65 H (0.11-0.59) K/uL Eos # (Auto) 0.15 0.24 (0.00-0.50) K/uL Baso # (Auto) 0.05 0.05 (0.00-0.20) K/uL Immature Gran # (Auto) 0.08 0.07 (0.01-0.20) K/uL PT 10.1 10.3 (9.0-12.0) Seconds INR 0.9 0.9 (0.9-1.1) APTT 27.6 (21.0-31.0) Seconds PTT Ratio 1.0 Sodium 136 137 (136-145) mmol/L Potassium 4.0 4.4 (3.5-5.1) mmol/L Chloride 100 103 (98-107) mmol/L Carbon Dioxide 30 28 (21-32) mmol/L Anion Gap 6 6 (3-11) BUN 22 15 (6-23) mg/dl Creatinine 1.61 H 1.30 H D (0.6-1.2) mg/dl Est Cr Clr Drug Dosing 18.5 22.9 ml/min Est GFR ( Amer) 34.6 44.9 ml/min Est GFR (Non-Af Amer) 29.9 38.7 ml/min BUN/Creatinine Ratio 13.7 11.5 (10-20) Glucose 125 H 99 (70-99(Fasting)) mg/dl Lactate (0.4-2.0) mmol/L Calcium 9.1 7.7 L (8.6-10.3) mg/dl Magnesium 1.3 L 2.3 (1.7-2.4) mg/dl Total Bilirubin 0.3 0.2 (0.2-1.0) mg/dl Direct Bilirubin 0.0 (0-0.2) mg/dl AST 18 18 (13-39) U/L ALT < 3 L < 3 L (7-52) U/L Alkaline Phosphatase 87 74 (34-104) U/L C-Reactive Protein (0-0.5) mg/dl Total Protein 6.9 5.5 L D (6.0-8.3) gm/dl Albumin 3.4 2.8 L (3.4-5.0) gm/dl Globulin 2.7 (2.5-4.0) gm/dl Albumin/Globulin Ratio 1.0 (0.9-2) Lipase 15 (11-82) U/L Procalcitonin (0-0.5) ng/ml Urine Color Urine Appearance (Clear) Urine pH (4.5-7.5) Ur Specific [place] (1.000-1.030) Urine Protein (Negative) Urine Glucose (UA) (Negative) Urine Ketones (Negative) Urine Blood (Negative) Urine Nitrite (Negative) Urine Bilirubin (Negative) Urine Urobilinogen (Negative) Ur Leukocyte Esterase (Negative) Stl C. diff Tox B Gene (Neg) 05/11/23 05/11/23 05/11/23 Range/Units 12:14 12:17 16:56 WBC 6.39 (4.8-10.8) K/ul RBC 2.99 L (4.20-5.40) M/uL Hgb 9.8 L (12.0-16.0) g/dl Hct 31.6 L (37.0-47.0) % MCV 105.7 H (80.0-100.0) fL MCH 32.8 (25.0-34.0) pg MCHC 31.0 L (32.0-36.0) g/dL RDW Std Deviation 53.8 H (36.4-46.3) fL RDW Coeff of Damien 13.8 (11.5-14.5) % Plt Count 321 (130-400) K/uL MPV 9.5 (9.4-12.4) fL Immature Gran % (Auto) % Neut % (Auto) % Lymph % (Auto) % [place] % (Auto) % Eos % (Auto) % Baso % (Auto) % Neut # (Auto) (1.40-6.50) K/uL Lymph # (Auto) (1.20-3.40) K/uL [place] # (Auto) (0.11-0.59) K/uL Eos # (Auto) (0.00-0.50) K/uL Baso # (Auto) (0.00-0.20) K/uL Immature Gran # (Auto) (0.01-0.20) K/uL PT (9.0-12.0) Seconds INR (0.9-1.1) APTT (21.0-31.0) Seconds PTT Ratio Sodium 138 (136-145) mmol/L Potassium 4.2 (3.5-5.1) mmol/L Chloride 104 (98-107) mmol/L Carbon Dioxide 28 (21-32) mmol/L Anion Gap 6 (3-11) BUN 13 (6-23) mg/dl Creatinine 1.28 H (0.6-1.2) mg/dl Est Cr Clr Drug Dosing 22.8 ml/min Est GFR ( Amer) 45.7 ml/min Est GFR (Non-Af Amer) 39.4 ml/min BUN/Creatinine Ratio 10.2 (10-20) Glucose 113 H (70-99(Fasting)) mg/dl Lactate 0.8 (0.4-2.0) mmol/L Calcium 7.7 L (8.6-10.3) mg/dl Magnesium (1.7-2.4) mg/dl Total Bilirubin 0.2 (0.2-1.0) mg/dl Direct Bilirubin (0-0.2) mg/dl AST 19 (13-39) U/L ALT 4 L (7-52) U/L Alkaline Phosphatase 77 (34-104) U/L C-Reactive Protein 7.91 H (0-0.5) mg/dl Total Protein 5.6 L (6.0-8.3) gm/dl Albumin 2.8 L (3.4-5.0) gm/dl Globulin 2.8 (2.5-4.0) gm/dl Albumin/Globulin Ratio 1.0 (0.9-2) Lipase (11-82) U/L Procalcitonin 0.13 (0-0.5) ng/ml Urine Color Yellow Urine Appearance Clear (Clear) Urine pH 5.5 (4.5-7.5) Ur Specific [place] 1.013 (1.000-1.030) Urine Protein Negative (Negative) Urine Glucose (UA) Negative (Negative) Urine Ketones Negative (Negative) Urine Blood Negative (Negative) Urine Nitrite Negative (Negative) Urine Bilirubin Negative (Negative) Urine Urobilinogen Negative (Negative) Ur Leukocyte Esterase Negative (Negative) Stl C. diff Tox B Gene (Neg) 05/12/23 05/12/23 05/12/23 Range/Units 04:21 04:27 09:37 WBC 5.87 (4.8-10.8) K/ul RBC 3.11 L (4.20-5.40) M/uL Hgb 10.3 L (12.0-16.0) g/dl Hct 33.4 L (37.0-47.0) % MCV 107.4 H (80.0-100.0) fL MCH 33.1 (25.0-34.0) pg MCHC 30.8 L (32.0-36.0) g/dL RDW Std Deviation 55.9 H (36.4-46.3) fL RDW Coeff of Damien 14.0 (11.5-14.5) % Plt Count 356 (130-400) K/uL MPV 10.0 (9.4-12.4) fL Immature Gran % (Auto) 1.4 % Neut % (Auto) 66.3 % Lymph % (Auto) 18.2 % [place] % (Auto) 9.7 % Eos % (Auto) 4.1 % Baso % (Auto) 0.3 % Neut # (Auto) 3.89 (1.40-6.50) K/uL Lymph # (Auto) 1.07 L (1.20-3.40) K/uL [place] # (Auto) 0.57 (0.11-0.59) K/uL Eos # (Auto) 0.24 (0.00-0.50) K/uL Baso # (Auto) 0.02 (0.00-0.20) K/uL Immature Gran # (Auto) 0.08 (0.01-0.20) K/uL PT 11.0 (9.0-12.0) Seconds INR 1.0 (0.9-1.1) APTT (21.0-31.0) Seconds PTT Ratio Sodium 139 (136-145) mmol/L Potassium 4.1 (3.5-5.1) mmol/L Chloride 104 (98-107) mmol/L Carbon Dioxide 29 (21-32) mmol/L Anion Gap 6 (3-11) BUN 11 (6-23) mg/dl Creatinine 1.29 H (0.6-1.2) mg/dl Est Cr Clr Drug Dosing 22.6 ml/min Est GFR ( Amer) 45.3 ml/min Est GFR (Non-Af Amer) 39.1 ml/min BUN/Creatinine Ratio 8.5 L (10-20) Glucose 90 (70-99(Fasting)) mg/dl Lactate (0.4-2.0) mmol/L Calcium 7.4 L (8.6-10.3) mg/dl Magnesium 1.9 (1.7-2.4) mg/dl Total Bilirubin 0.2 (0.2-1.0) mg/dl Direct Bilirubin 0.0 (0-0.2) mg/dl AST 19 (13-39) U/L ALT < 3 L (7-52) U/L Alkaline Phosphatase 78 (34-104) U/L C-Reactive Protein (0-0.5) mg/dl Total Protein 5.8 L (6.0-8.3) gm/dl Albumin 3.0 L (3.4-5.0) gm/dl Globulin 2.8 (2.5-4.0) gm/dl Albumin/Globulin Ratio 1.1 (0.9-2) Lipase (11-82) U/L Procalcitonin (0-0.5) ng/ml Urine Color Urine Appearance (Clear) Urine pH (4.5-7.5) Ur Specific [place] (1.000-1.030) Urine Protein (Negative) Urine Glucose (UA) (Negative) Urine Ketones (Negative) Urine Blood (Negative) Urine Nitrite (Negative) Urine Bilirubin (Negative) Urine Urobilinogen (Negative) Ur Leukocyte Esterase (Negative) Stl C. diff Tox B Gene Negative Cdiff Gene (Neg)
--- NOTE | 2023-05-12 16:15 | Hospitalist Progress Note ---
Date of Service May 12, 2023 Assessment & Plan (1) Acute cholecystitis: Plan: -Admit to med/tele -Currently stable, asymptomatic, and non-toxic appearing -Presented to the ED with 3 days of progressive RUQ pain -CT of the abd/pelvis showed Gallbladder wall thickening and right upper quadrant stranding concerning for acute cholecystitis -LFT's are WNL, no leukocytosis, has been afebrile -General surgery consulted. -Place on IV antibiotics: rocephin and flagyl. Patient clinically appears improved and tolerating diet. will advance diet to full. Due to diarrhea and clinical improvement, will cut back rocephin to 1 gr IV daily as this should still treat her possible infection and will limit likelihood of c diff. Appreciate input from General surgeon, will monitor over course of weekend and continue IV antibiotics. -Will start SQ heparin for DVT PPX -reviewed labs (2) Chronic deep vein thrombosis (DVT): Plan: -Previously on Elqiuis and Coumadin but these had to be discontinued due to complications -Was then on Xarelto but had to be discontinued due to renal function -Dr. Fredrick joseph, was consulted during last admission in December, recommended 81 mg aspirin daily -Will conitnue Aspirin at this time -U/S confirmed chornic DVT, but no new acute DVT. (3) Interstitial lung disease: Plan: -Stable on RA -Incentive spirometry and prn albuterol (4) Hypothyroidism (acquired): Plan: -Continue levothyroxine (5) GERD (gastroesophageal reflux disease): Plan: -Continue PPI (6) HTN (hypertension): Plan: -Stable -Conitnue metoprolol (7) CKD (chronic kidney disease), stage IV: Plan: -Currently stable -Monitor daily renal function (8) Tremor: Plan: -Continue Carbidopa-Levodopa (9) Anemia: Plan: -Stable -Continue B12 Admission and Anticipated Discharge Date Admission Date: May 10, 2023 Subjective Patient reports no abdominal pain. Review of Systems Review of Systems: All systems reviewed & are unremarkable except as noted in HPI & below Physical Exam Physical Exam: General: In no acute distress, stated age, well-nourished, non-toxic appearing HEENT: Normocephalic, atraumatic Chest/Pulm: minimal wheezing Cardiac: RRR, no murmurs noted Abdomen: soft, non tender, Musculoskeletal: Symmetrical and without signs of acute trauma, upper and lower extremities with full ROM, no atrophy, spasticity, or flaccidity Extremities: Radial, dorsalis pedis, and posterior tibial pulses are intact and symmetrical, RLE is mildly swollen compared to right, no significant pitting edema BL Skin: Warm, dry, no rashes , lesions, or scars noted Neuro: Alert and oriented to person, place, month, year, and president, no focal defects, baseline tremor noted Psych: No acute distress, calm and cooperative during the exam Results & Data Results & Data Vital Signs (Past 12 Hours) Vital Signs Temp Pulse Pulse Resp BP Pulse Ox O2 Del Method 05/12/23 15:59 36.9 C 77 18 105/50 L 97 Nasal Cannula 05/12/23 11:37 36.4 C L 72 20 98/61 L 97 Nasal Cannula 05/12/23 08:15 Nasal Cannula 05/12/23 07:59 37.2 C 88 20 110/63 94 Nasal Cannula 05/12/23 07:40 82 O2 Flow Rate 05/12/23 15:59 2 05/12/23 11:37 2 05/12/23 08:15 2 05/12/23 07:59 2 05/12/23 07:40 PG Care Time/CCT Total # of Minutes Spent Total Time Spent with Patient: Total time spent is greater than 50% in coordination of care (as documented) at patient's floor/unit and/or counseling patient: Coding Level of Care Code 29577 SUB INP/OBS CARE 2/35MIN Diagnoses Acute cholecystitis K81.0 Chronic deep vein thrombosis (DVT) I82.509 Interstitial lung disease J84.9 Hypothyroidism (acquired) E03.9 GERD (gastroesophageal reflux disease) K21.9 Essential hypertension I10 Hypertension type: essential hypertension CKD (chronic kidney disease), stage IV N18.4 Tremor R25.1 Anemia D64.9 (6) HTN (hypertension) Hypertension type: essential hypertension Qualified Code(s): I10 - Essential (primary) hypertension
[2023-05-12] MEDS ORDERED: Heparin IV Adult Wt-Based Standard *NO* INITIAL Bolus Protocol IV SCH (17:45)
[2023-05-12] MEDS ORDERED: HEPARIN SODIUM/DEXTROSE 25,000 UNITS/500 ML BAG IV SCH ×2 (18:00→22:45)
[2023-05-12] MEDS: cefTRIAXone SODIUM 1,000 MG in DEXTROSE 5 % MINI-B 50 ML IV SCH (18:45)
[2023-05-12 19:09] LABS: Hematocrit (blood only) 36.1 % (37.0-47.0); Hemoglobin 11.2 g/dl (12.0-16.0)
[2023-05-12] MEDS: ATORVASTATIN 40 MG TAB PO SCH (21:38)
[2023-05-12] MEDS ORDERED: Heparin IV Adult Wt-Based Low-Dose *NO* INITIAL Bolus Protocol IV STA (22:17)
[2023-05-13 00:05] LABS: Basophils # (auto) 0.02 K/uL (0.00-0.20); Basophils % (auto) 0.3 %; Eosinophils # (auto) 0.25 K/uL (0.00-0.50); Eosinophils % (auto) 3.7 %; Hematocrit (blood only) 30.4 % (37.0-47.0); Hemoglobin 9.5 g/dl (12.0-16.0); Immature Granulocytes # (auto) 0.07 K/uL (0.01-0.20); Lymphocytes # (auto) 1.79 K/uL (1.20-3.40); Lymphocytes % (auto) 26.6 %; Mean Corpuscular Hemoglobin 33.3 pg (25.0-34.0); Mean Corpuscular Hgb Conc 31.3 g/dL (32.0-36.0); Mean Corpuscular Volume 106.7 fL (80.0-100.0); Mean Platelet Volume 9.9 fL (9.4-12.4); Monocytes # (auto) 0.71 K/uL (0.11-0.59); Monocytes % (auto) 10.5 %; Neutrophils % (auto) 57.9 %; Platelet Count 329 K/uL (130-400); RDW Coefficient of Variation 14.1 % (11.5-14.5); RDW Standard Deviation 55.8 fL (36.4-46.3); Red Blood Count 2.85 M/uL (4.20-5.40); White Blood Count 6.74 K/ul (4.8-10.8)
[2023-05-13] MEDS: ACETAMINOPHEN 325 MG TAB PO PRN ×4 (00:10→21:52)
[2023-05-13] MEDS: metroNIDAZOLE 500 MG/100 ML BAG IV SCH ×4 (00:10→21:55)
[2023-05-13 00:13] LABS: Partial Thromboplastin Ratio 1.1; Prothrombin Time 11.4 Seconds (9.0-12.0)
[2023-05-13 05:10] LABS: Basophils # (auto) 0.04 K/uL (0.00-0.20); Basophils % (auto) 0.6 %; Eosinophils # (auto) 0.28 K/uL (0.00-0.50); Hematocrit (blood only) 34.4 % (37.0-47.0); Hemoglobin 10.4 g/dl (12.0-16.0); Immature Granulocytes # (auto) 0.11 K/uL (0.01-0.20); Immature Granulocytes % (auto) 1.6 %; Lymphocytes # (auto) 1.98 K/uL (1.20-3.40); Lymphocytes % (auto) 28.1 %; Mean Corpuscular Hemoglobin 32.7 pg (25.0-34.0); Mean Corpuscular Hgb Conc 30.2 g/dL (32.0-36.0); Mean Corpuscular Volume 108.2 fL (80.0-100.0); Mean Platelet Volume 9.9 fL (9.4-12.4); Monocytes # (auto) 0.67 K/uL (0.11-0.59); Monocytes % (auto) 9.5 %; Neutrophils # (auto) 3.96 K/uL (1.40-6.50); Neutrophils % (auto) 56.2 %; Platelet Count 340 K/uL (130-400); RDW Standard Deviation 56.4 fL (36.4-46.3); Red Blood Count 3.18 M/uL (4.20-5.40); White Blood Count 7.04 K/ul (4.8-10.8)
[2023-05-13 05:26] LABS: Albumin Level 2.7 gm/dl (3.4-5.0); BUN Creatinine Ratio 6.1 (10-20); Bilirubin,Total 0.3 mg/dl (0.2-1.0); C Reactive Protein 5.93 mg/dl (0-0.5); Calcium 7.3 mg/dl (8.6-10.3); Creatinine Clr Calc Pharmacy 24.2 ml/min; Est GFR (African American) 44.5 ml/min; Est GFR (Non-African American) 38.4 ml/min; Globulin 2.8 gm/dl (2.5-4.0); Magnesium 1.6 mg/dl (1.7-2.4); Potassium 4.5 mmol/L (3.5-5.1); Total Protein 5.5 gm/dl (6.0-8.3)
[2023-05-13] MEDS: LEVOTHYROXINE SODIUM 88 MCG TABLET PO SCH (05:53)
[2023-05-13 07:52] LABS: INR 1.1 (0.9-1.1); Partial Thromboplastin Ratio 1.9; Partial Thromboplastin Time 53.8 Seconds (21.0-31.0); Prothrombin Time 11.8 Seconds (9.0-12.0)
[2023-05-13] MEDS: CARBIDOPA/LEVODOP 10/100MG TAB PO SCH ×3 (08:31→21:52)
[2023-05-13] MEDS: METOPROLOL SUCC 50MG EXT REL TAB PO SCH (08:32)
[2023-05-13] MEDS: ASPIRIN 81 MG ECTAB PO SCH (08:32)
[2023-05-13] MEDS: PANTOprazole 40 MG TAB PO SCH (08:32)
[2023-05-13] MEDS: LACTOBACILLUS ACIDOPHILUS 1 GM PACK PO SCH ×3 (08:32→17:46)
[2023-05-13] MEDS ORDERED: SODIUM CHLORIDE 0.65% NA SOLN 45 ML (OCEAN) PRN (09:45)
[2023-05-13] MEDS: cefTRIAXone SODIUM 1,000 MG in DEXTROSE 5 % MINI-B 50 ML IV SCH (17:45)
[2023-05-13] MEDS ORDERED: HEPARIN STOP ORDER ONE (20:45)
[2023-05-13] MEDS: APIXABAN 5 MG TABLET PO SCH (21:51)
[2023-05-13] MEDS: ATORVASTATIN 40 MG TAB PO SCH (21:52)
--- NOTE | 2023-05-13 22:25 | Hospitalist Progress Note ---
Date of Service May 13, 2023 Assessment & Plan (1) Acute cholecystitis: Plan: -Admit to med/tele -Currently stable, asymptomatic, and non-toxic appearing -Presented to the ED with 3 days of progressive RUQ pain -CT of the abd/pelvis showed Gallbladder wall thickening and right upper quadrant stranding concerning for acute cholecystitis -LFT's are WNL, no leukocytosis, has been afebrile -General surgery consulted. -Place on IV antibiotics: rocephin and flagyl. Patient clinically appears improved and tolerating diet. will advance diet to low fat low residue. Due to diarrhea and clinical improvement, will cut back rocephin to 1 gr IV daily as this should still treat her possible infection and will limit likelihood of c diff. Appreciate input from General surgeon, will monitor over course of weekend and continue IV antibiotics. -Will start SQ heparin for DVT PPX -reviewed labs (2) Chronic deep vein thrombosis (DVT): Plan: -Previously on Elqiuis and Coumadin but these had to be discontinued due to complications -Was then on Xarelto but had to be discontinued due to renal function -Dr. Alcala follows, was consulted during last admission in December, recommended 81 mg aspirin daily -Will continue Aspirin at this time -U/S confirmed chornic DVT, but no new acute DVT. However given her leg is more swollen, placed on heparin. Discussed with patient again on 05/13, patient will be on eliquis. (3) Interstitial lung disease: Plan: -Stable on RA -Incentive spirometry and prn albuterol (4) Hypothyroidism (acquired): Plan: -Continue levothyroxine (5) GERD (gastroesophageal reflux disease): Plan: -Continue PPI (6) HTN (hypertension): Plan: -Stable -Conitnue metoprolol (7) CKD (chronic kidney disease), stage IV: Plan: -Currently stable -Monitor daily renal function (8) Tremor: Plan: -Continue Carbidopa-Levodopa (9) Anemia: Plan: -Stable -Continue B12 Admission and Anticipated Discharge Date Admission Date: May 10, 2023 Subjective Patient reports no new symptoms Review of Systems Review of Systems: All systems reviewed & are unremarkable except as noted in HPI & below Physical Exam Physical Exam: General: In no acute distress, stated age, well-nourished, non-toxic appearing HEENT: Normocephalic, atraumatic Chest/Pulm: minimal wheezing Cardiac: RRR, no murmurs noted Abdomen: soft, non tender, Musculoskeletal: Symmetrical and without signs of acute trauma, upper and lower extremities with full ROM, no atrophy, spasticity, or flaccidity Extremities: Radial, dorsalis pedis Neuro: Alert and oriented to person, place, month, year, and president, no focal defects, baseline tremor noted Psych: No acute distress, calm and cooperative during the exam Results & Data Results & Data Vital Signs (Past 12 Hours) Vital Signs Temp Pulse Pulse Pulse Resp BP BP 05/13/23 18:42 36.7 C 75 16 111/70 05/13/23 18:00 05/13/23 15:38 36.6 C 79 16 110/65 05/13/23 14:58 78 05/13/23 11:32 36.7 C 80 20 112/57 L Pulse Ox Pulse Ox O2 Del Method O2 Del Method O2 Flow Rate O2 Flow Rate 05/13/23 18:42 98 Nasal Cannula 2 05/13/23 18:00 92 Nasal Cannula 2 05/13/23 15:38 98 Nasal Cannula 2 05/13/23 14:58 05/13/23 11:32 94 Nasal Cannula 2 PG Care Time/CCT Total # of Minutes Spent Total Time Spent with Patient: Total time spent is greater than 50% in coordination of care (as documented) at patient's floor/unit and/or counseling patient: Coding Level of Care Code 72576 SUB INP/OBS CARE 3/50MIN Diagnoses Acute cholecystitis K81.0 Chronic deep vein thrombosis (DVT) I82.509 Interstitial lung disease J84.9 Hypothyroidism (acquired) E03.9 GERD (gastroesophageal reflux disease) K21.9 Essential hypertension I10 Hypertension type: essential hypertension CKD (chronic kidney disease), stage IV N18.4 Tremor R25.1 Anemia D64.9 Time Spent (min) 50 (6) HTN (hypertension) Hypertension type: essential hypertension Qualified Code(s): I10 - Essential (primary) hypertension
[2023-05-14] MEDS: ACETAMINOPHEN 325 MG TAB PO PRN ×3 (04:31→16:52)
[2023-05-14 05:57] LABS: Basophils # (auto) 0.03 K/uL (0.00-0.20); Basophils % (auto) 0.5 %; Eosinophils # (auto) 0.23 K/uL (0.00-0.50); Eosinophils % (auto) 3.5 %; Hemoglobin 9.6 g/dl (12.0-16.0); Immature Granulocytes # (auto) 0.03 K/uL (0.01-0.20); Immature Granulocytes % (auto) 0.5 %; Lymphocytes # (auto) 1.68 K/uL (1.20-3.40); Lymphocytes % (auto) 25.8 %; Mean Corpuscular Hemoglobin 33.2 pg (25.0-34.0); Mean Corpuscular Volume 107.3 fL (80.0-100.0); Mean Platelet Volume 9.8 fL (9.4-12.4); Monocytes # (auto) 0.64 K/uL (0.11-0.59); Monocytes % (auto) 9.8 %; Neutrophils # (auto) 3.91 K/uL (1.40-6.50); Neutrophils % (auto) 59.9 %; Platelet Count 319 K/uL (130-400); RDW Coefficient of Variation 13.8 % (11.5-14.5); RDW Standard Deviation 54.1 fL (36.4-46.3); Red Blood Count 2.89 M/uL (4.20-5.40); White Blood Count 6.52 K/ul (4.8-10.8)
[2023-05-14 06:08] LABS: Partial Thromboplastin Ratio 1.2; Partial Thromboplastin Time 33.9 Seconds (21.0-31.0)
[2023-05-14] MEDS: LEVOTHYROXINE SODIUM 88 MCG TABLET PO SCH (06:23)
[2023-05-14 06:56] LABS: Albumin Level 2.6 gm/dl (3.4-5.0); Anion Gap 4 (3-11); Bilirubin Direct 0.1 mg/dl (0-0.2); Bilirubin,Total 0.2 mg/dl (0.2-1.0); Calcium 7.6 mg/dl (8.6-10.3); Carbon Dioxide 29 mmol/L (21-32); Chloride 106 mmol/L (98-107); Potassium 4.2 mmol/L (3.5-5.1); Sodium 139 mmol/L (136-145)
[2023-05-14 07:02] LABS: BUN Creatinine Ratio 6.3 (10-20); Blood Urea Nitrogen 9 mg/dl (6-23); Creatinine Clr Calc Pharmacy 22.8 ml/min; Est GFR (African American) 39.7 ml/min; Est GFR (Non-African American) 34.2 ml/min; Glucose 106 mg/dl (70-99(Fasting))
[2023-05-14 07:10] LABS: Alanine Aminotransferase < 3 U/L (7-52); Alkaline Phosphatase 69 U/L (34-104); Aspartate Aminotransferase 14 U/L (13-39); Total Protein 5.2 gm/dl (6.0-8.3)
[2023-05-14] MEDS: LACTOBACILLUS ACIDOPHILUS 1 GM PACK PO SCH ×3 (09:00→16:52)
[2023-05-14] MEDS: metroNIDAZOLE 500 MG/100 ML BAG IV SCH (09:00)
[2023-05-14] MEDS: ASPIRIN 81 MG ECTAB PO SCH (09:00)
[2023-05-14] MEDS: PANTOprazole 40 MG TAB PO SCH (09:01)
[2023-05-14] MEDS: CARBIDOPA/LEVODOP 10/100MG TAB PO SCH ×3 (09:01→20:47)
[2023-05-14] MEDS: APIXABAN 5 MG TABLET PO SCH ×2 (09:02→20:47)
[2023-05-14] MEDS: METOPROLOL SUCC 50MG EXT REL TAB PO SCH (09:02)
--- NOTE | 2023-05-14 10:14 | XRay Report ---
TWO VIEW CHEST CLINICAL HISTORY: Hypoxia. FINDINGS: AP upright and lateral chest radiographs are compared to study dated 05/10/2023 and correla lacy with chest CT dated 01/11/2023. The cardiomediastinal silhouette is top normal for projection. Emp hysema and chronic interstitial thickening is similar to previous. There are low lung volumes with bi basilar scarring/atelectasis No airspace consolidation or large pleural effusion is identified. Apica l scarring is observed. No pneumothorax is seen. The skeletal structures are osteopenic. There are he aled left-sided rib fractures. Arthritic change is noted in the shoulders. Degenerative change and hy perkyphosis is noted in the spine. There are numerous spinal compression deformities. IMPRESSION: Low lung volumes and emphysema with no acute cardiopulmonary abnormality identified. ACT 112: Negative or not required by law. Electronically signed by: Salo Morales M.D. 05/14/2023 10:13 AM
[2023-05-14 14:32] LABS: Adenovirus PCR Not Detected (NotDetected); Bordetella parapertussis PCR Not Detected (NotDetected); Bordetella pertussis PCR Not Detected (NotDetected); Chlamydia pneumoniae PCR Not Detected (NotDetected); Coronavirus 229E PCR Not Detected (NotDetected); Coronavirus CoV-2 (COVID19)PCR Not Detected (NotDetected); Coronavirus HKU1 PCR Not Detected (NotDetected); Coronavirus NL63 PCR Not Detected (NotDetected); Coronavirus OC43PCR Not Detected (NotDetected); Human Metapneumovirus PCR Not Detected (NotDetected); Influenza A PCR Not Detected (NotDetected); Influenza B PCR Not Detected (NotDetected); Mycoplasma pneumoniae PCR Not Detected (NotDetected); Parainfluenza Virus 1 PCR Not Detected (NotDetected); Parainfluenza Virus 2 PCR Not Detected (NotDetected); Parainfluenza Virus 3 PCR Not Detected (NotDetected); Parainfluenza Virus 4 PCR Not Detected (NotDetected); Respiratory Syncytial VirusPCR Not Detected (NotDetected); Rhinovirus/Enterovirus PCR Not Detected (NotDetected)
[2023-05-14] MEDS: metroNIDAZOLE 500 MG TAB PO SCH ×2 (15:10→20:47)
[2023-05-14] MEDS: cefTRIAXone SODIUM 1,000 MG in DEXTROSE 5 % MINI-B 50 ML IV SCH (16:52)
[2023-05-14] MEDS: ATORVASTATIN 40 MG TAB PO SCH (20:47)
--- NOTE | 2023-05-14 22:18 | Hospitalist Progress Note ---
Date of Service May 14, 2023 Assessment & Plan (1) Acute cholecystitis: Plan: -Admit to med/tele -Currently stable, asymptomatic, and non-toxic appearing -Presented to the ED with 3 days of progressive RUQ pain -CT of the abd/pelvis showed Gallbladder wall thickening and right upper quadrant stranding concerning for acute cholecystitis -LFT's are WNL, no leukocytosis, has been afebrile -General surgery consulted. -Place on IV antibiotics: rocephin and flagyl. Patient clinically appears improved and tolerating diet. will advance diet to low fat low residue. Due to diarrhea and clinical improvement, will cut back rocephin to 1 gr IV daily as this should still treat her possible infection and will limit likelihood of c diff. Appreciate input from General surgeon, will monitor over course of weekend and continue IV antibiotics. -reviewed labs (2) Chronic deep vein thrombosis (DVT): Plan: -Previously on Elqiuis and Coumadin but these had to be discontinued due to complications -Was then on Xarelto but had to be discontinued due to renal function -Dr. Alcala follows, was consulted during last admission in December, recommended 81 mg aspirin daily -Will continue Aspirin at this time -U/S confirmed chornic DVT, but no new acute DVT. However given her leg is more swollen, placed on heparin. Discussed with patient again on 05/13, patient will be on eliquis. Tolrating dose (3) Interstitial lung disease: Plan: -Stable on RA -Incentive spirometry and prn albuterol (4) Hypothyroidism (acquired): Plan: -Continue levothyroxine (5) GERD (gastroesophageal reflux disease): Plan: -Continue PPI (6) HTN (hypertension): Plan: -Stable -Conitnue metoprolol (7) CKD (chronic kidney disease), stage IV: Plan: -Currently stable -Monitor daily renal function (8) Tremor: Plan: -Continue Carbidopa-Levodopa (9) Anemia: Plan: -Stable -Continue B12 Admission and Anticipated Discharge Date Admission Date: May 10, 2023 Subjective 78 yo female reports no new symptoms. Review of Systems Review of Systems: All systems reviewed & are unremarkable except as noted in HPI & below Physical Exam Physical Exam: General: In no acute distress, stated age, well-nourished, non-toxic appearing HEENT: Normocephalic, atraumatic Chest/Pulm: minimal wheezing Cardiac: RRR, no murmurs noted Abdomen: soft, non tender, Musculoskeletal: Symmetrical and without signs of acute trauma, upper and lower extremities with full ROM, no atrophy, spasticity, or flaccidity Extremities: Radial, dorsalis pedis Neuro: Alert and oriented to person, place, month, year, and president, no focal defects, baseline tremor noted Psych: No acute distress, calm and cooperative during the exam Results & Data Results & Data Vital Signs (Past 12 Hours) Vital Signs Temp Pulse Pulse Resp BP Pulse Ox Pulse Ox 05/14/23 20:06 36.6 C 76 18 104/65 98 05/14/23 17:45 05/14/23 16:16 69 05/14/23 15:17 36.4 C L 71 17 109/64 100 05/14/23 12:15 96 05/14/23 11:21 36.6 C 80 16 117/69 98 05/14/23 11:21 05/14/23 11:21 93 H Pulse Ox Pulse Ox O2 Del Method O2 Del Method O2 Flow Rate O2 Flow Rate O2 Flow Rate 05/14/23 20:06 Nasal Cannula 2 05/14/23 17:45 Nasal Cannula 2 05/14/23 16:16 05/14/23 15:17 Nasal Cannula 2 05/14/23 12:15 92 75 L 2 05/14/23 11:21 Nasal Cannula 2 05/14/23 11:21 Nasal Cannula 2 05/14/23 11:21 O2 Flow Rate O2 Flow Rate 05/14/23 20:06 05/14/23 17:45 05/14/23 16:16 05/14/23 15:17 05/14/23 12:15 0 0 05/14/23 11:21 05/14/23 11:21 05/14/23 11:21 PG Care Time/CCT Total # of Minutes Spent Total Time Spent with Patient: Total time spent is greater than 50% in coordination of care (as documented) at patient's floor/unit and/or counseling patient: Coding Level of Care Code 59434 SUB INP/OBS CARE 2/35MIN Diagnoses Acute cholecystitis K81.0 Chronic deep vein thrombosis (DVT) I82.509 Interstitial lung disease J84.9 Hypothyroidism (acquired) E03.9 GERD (gastroesophageal reflux disease) K21.9 Essential hypertension I10 Hypertension type: essential hypertension CKD (chronic kidney disease), stage IV N18.4 Tremor R25.1 Anemia D64.9 (6) HTN (hypertension) Hypertension type: essential hypertension Qualified Code(s): I10 - Essential (primary) hypertension
[2023-05-15] MEDS: ACETAMINOPHEN 325 MG TAB PO PRN ×2 (02:07→10:27)
[2023-05-15 04:50] LABS: Hematocrit (blood only) 31.7 % (37.0-47.0); Hemoglobin 10.1 g/dl (12.0-16.0); Mean Corpuscular Hemoglobin 33.6 pg (25.0-34.0); Mean Corpuscular Hgb Conc 31.9 g/dL (32.0-36.0); Mean Corpuscular Volume 105.3 fL (80.0-100.0); Mean Platelet Volume 9.8 fL (9.4-12.4); Platelet Count 324 K/uL (130-400); RDW Coefficient of Variation 13.9 % (11.5-14.5); RDW Standard Deviation 53.1 fL (36.4-46.3); Red Blood Count 3.01 M/uL (4.20-5.40); White Blood Count 8.66 K/ul (4.8-10.8)
[2023-05-15 05:11] LABS: Albumin Level 2.7 gm/dl (3.4-5.0); BUN Creatinine Ratio 6.3 (10-20); Bilirubin,Total 0.2 mg/dl (0.2-1.0); C Reactive Protein 3.11 mg/dl (0-0.5); Creatinine Clr Calc Pharmacy 23.1 ml/min; Est GFR (African American) 40.3 ml/min; Est GFR (Non-African American) 34.8 ml/min; Potassium 4.3 mmol/L (3.5-5.1); Total Protein 5.5 gm/dl (6.0-8.3)
[2023-05-15 05:18] LABS: INR 1.3 (0.9-1.1); Partial Thromboplastin Ratio 1.2; Partial Thromboplastin Time 33.3 Seconds (21.0-31.0); Prothrombin Time 13.8 Seconds (9.0-12.0)
[2023-05-15] MEDS: LEVOTHYROXINE SODIUM 88 MCG TABLET PO SCH (06:33)
[2023-05-15] MEDS: CARBIDOPA/LEVODOP 10/100MG TAB PO SCH ×3 (08:08→19:34)
[2023-05-15] MEDS: metroNIDAZOLE 500 MG TAB PO SCH ×3 (08:09→19:33)
[2023-05-15] MEDS: PANTOprazole 40 MG TAB PO SCH (08:09)
[2023-05-15] MEDS: APIXABAN 5 MG TABLET PO SCH ×2 (08:09→19:34)
[2023-05-15] MEDS: ASPIRIN 81 MG ECTAB PO SCH (08:09)
[2023-05-15] MEDS: METOPROLOL SUCC 50MG EXT REL TAB PO SCH (08:09)
[2023-05-15] MEDS: LACTOBACILLUS ACIDOPHILUS 1 GM PACK PO SCH ×3 (08:10→18:03)
[2023-05-15] MEDS: FLUTICASONE PROPIONATE NA SPR 16 GM BTL NAE SCH (15:56)
[2023-05-15] MEDS: cefTRIAXone SODIUM 1,000 MG in DEXTROSE 5 % MINI-B 50 ML IV SCH (18:02)
[2023-05-15] MEDS: ATORVASTATIN 40 MG TAB PO SCH (19:33)
[2023-05-15] MEDS: CARBAMIDE PEROXIDE 6.5% 15 ML BTL OT SCH (19:35)
--- NOTE | 2023-05-15 22:05 | Hospitalist Progress Note ---
Date of Service May 15, 2023 Assessment & Plan (1) Acute cholecystitis: Plan: -Admit to med/tele -Currently stable, asymptomatic, and non-toxic appearing -Presented to the ED with 3 days of progressive RUQ pain -CT of the abd/pelvis showed Gallbladder wall thickening and right upper quadrant stranding concerning for acute cholecystitis -LFT's are WNL, no leukocytosis, has been afebrile -General surgery evaluated at bedside at the time of my exam, appreciate their assistance: >No urgent plan for surgery. >Recommends admission with bowel rest, continued IV abx, and IV fluids > -Ceftriaxone and Flagyl for now -Tylenol and IV Dilaudid for pain -tolerating diet. (2) Chronic deep vein thrombosis (DVT): Plan: -Previously on Elqiuis and Coumadin but these had to be discontinued due to complications -Was then on Xarelto but had to be discontinued due to renal function -Dr. Fredrick joseph, was consulted during last admission in December, recommended 81 mg aspirin daily -resumed eliquis due to left lower leg swelling. Patient tolerating full treatment dose. (3) Interstitial lung disease: Plan: -Stable on RA -Incentive spirometry and prn albuterol (4) Hypothyroidism (acquired): Plan: -Continue levothyroxine (5) GERD (gastroesophageal reflux disease): Plan: -Continue PPI (6) HTN (hypertension): Plan: -Stable -Conitnue metoprolol (7) CKD (chronic kidney disease), stage IV: Plan: -Currently stable -Monitor daily renal function (8) Tremor: Plan: -Continue Carbidopa-Levodopa Sinus headache: flonase (9) Anemia: Plan: -Stable -Continue B12 Admission and Anticipated Discharge Date Admission Date: May 10, 2023 Subjective Patient reports she continues to have right sided sinus headache. Review of Systems Review of Systems: All systems reviewed & are unremarkable except as noted in HPI & below Physical Exam Physical Exam: General: In no acute distress, stated age, well-nourished, non-toxic appearing HEENT: Normocephalic, atraumatic, no pain when palpating sinuses, Right ear: with ear wax. Chest/Pulm: minimal wheezing Cardiac: RRR, no murmurs noted Abdomen: soft, non tender, Musculoskeletal: Symmetrical and without signs of acute trauma, upper and lower extremities with full ROM, no atrophy, spasticity, or flaccidity Extremities: Radial, dorsalis pedis Neuro: Alert and oriented to person, place, month, year, and president, no focal defects, baseline tremor noted Psych: No acute distress, calm and cooperative during the exam Results & Data Results & Data Vital Signs (Past 12 Hours) Vital Signs Temp Pulse Pulse Resp BP Pulse Ox O2 Del Method 05/15/23 20:58 36.6 C 95 H 18 102/59 L 94 Room Air 05/15/23 16:16 89 05/15/23 15:59 36.4 C L 88 16 101/65 96 Room Air 05/15/23 11:19 36.3 C L 84 16 100/56 L 96 Room Air PG Care Time/CCT Total # of Minutes Spent Total Time Spent with Patient: Total time spent is greater than 50% in coordination of care (as documented) at patient's floor/unit and/or counseling patient: Coding Level of Care Code 41714 SUB INP/OBS CARE 2/35MIN Diagnoses Acute cholecystitis K81.0 Chronic deep vein thrombosis (DVT) I82.509 Interstitial lung disease J84.9 Hypothyroidism (acquired) E03.9 GERD (gastroesophageal reflux disease) K21.9 Essential hypertension I10 Hypertension type: essential hypertension CKD (chronic kidney disease), stage IV N18.4 Tremor R25.1 Anemia D64.9 (6) HTN (hypertension) Hypertension type: essential hypertension Qualified Code(s): I10 - Essential (primary) hypertension
[2023-05-16] MEDS: ACETAMINOPHEN 325 MG TAB PO PRN ×2 (06:09→14:25)
[2023-05-16] MEDS: LEVOTHYROXINE SODIUM 88 MCG TABLET PO SCH (06:10)
[2023-05-16 06:43] LABS: Basophils # (auto) 0.04 K/uL (0.00-0.20); Basophils % (auto) 0.4 %; Eosinophils # (auto) 0.17 K/uL (0.00-0.50); Eosinophils % (auto) 1.9 %; Hematocrit (blood only) 31.1 % (37.0-47.0); Hemoglobin 10.1 g/dl (12.0-16.0); Immature Granulocytes # (auto) 0.06 K/uL (0.01-0.20); Immature Granulocytes % (auto) 0.7 %; Lymphocytes % (auto) 21.8 %; Mean Corpuscular Hemoglobin 32.8 pg (25.0-34.0); Mean Corpuscular Hgb Conc 32.5 g/dL (32.0-36.0); Mean Platelet Volume 10.2 fL (9.4-12.4); Monocytes % (auto) 7.6 %; Neutrophils # (auto) 6.19 K/uL (1.40-6.50); Neutrophils % (auto) 67.6 %; Platelet Count 347 K/uL (130-400); RDW Standard Deviation 51.7 fL (36.4-46.3); Red Blood Count 3.08 M/uL (4.20-5.40); White Blood Count 9.16 K/ul (4.8-10.8)
[2023-05-16 06:57] LABS: C Reactive Protein 2.55 mg/dl (0-0.5); Calcium 8.3 mg/dl (8.6-10.3); Creatinine Clr Calc Pharmacy 22.1 ml/min; Est GFR (African American) 39.7 ml/min; Est GFR (Non-African American) 34.2 ml/min
[2023-05-16 07:14] LABS: Partial Thromboplastin Ratio 1.2; Partial Thromboplastin Time 32.8 Seconds (21.0-31.0)
[2023-05-16] MEDS: metroNIDAZOLE 500 MG TAB PO SCH ×3 (08:33→21:01)
[2023-05-16] MEDS: ASPIRIN 81 MG ECTAB PO SCH (08:34)
[2023-05-16] MEDS: METOPROLOL SUCC 50MG EXT REL TAB PO SCH (08:34)
[2023-05-16] MEDS: PANTOprazole 40 MG TAB PO SCH (08:34)
[2023-05-16] MEDS: APIXABAN 5 MG TABLET PO SCH ×2 (08:34→21:00)
[2023-05-16] MEDS: LACTOBACILLUS ACIDOPHILUS 1 GM PACK PO SCH ×3 (08:35→18:31)
[2023-05-16] MEDS: CARBIDOPA/LEVODOP 10/100MG TAB PO SCH ×3 (08:35→21:01)
[2023-05-16] MEDS: CARBAMIDE PEROXIDE 6.5% 15 ML BTL OT SCH ×2 (08:36→21:02)
[2023-05-16] MEDS: FLUTICASONE PROPIONATE NA SPR 16 GM BTL NAE SCH (08:36)
--- NOTE | 2023-05-16 09:55 | Hospitalist Progress Note ---
Date of Service May 16, 2023 Assessment & Plan (1) Acute cholecystitis: Plan: Presented to the ED with 3 days of progressive RUQ pain CT of the abd/pelvis showed Gallbladder wall thickening and right upper quadrant stranding concerning for acute cholecystitis LFT's are WNL (last checked 05/15) Will continue with ceftriaxone +metronidazole while inpatient, will defer to her usual hospitalist regarding duration as I am just covering today Surgery consulted and recommended follow up in 2 week in outpatient clinic for consideration of cholecystectomy in outpatient setting (2) Chronic deep vein thrombosis (DVT): Plan: Previously on Elqiuis and Coumadin but these had to be discontinued due to complications Was then on Xarelto but had to be discontinued due to renal function Dr. Alcala follows, was consulted during last admission in December, recommended 81 mg aspirin daily -resumed eliquis this admission due to left lower leg swelling although no acute DVT identified Patient tolerating full treatment dose. (3) Pedal edema: Plan: I suspect this is due to IV fluids given in setting of poor venous return She reports not being able to take Lasix as it dries her out too much which suggests this is more a venous insufficiency problem however will give a one off dose of Lasix 20mg IV 05/16 and monitor response and Cr in addition to use using JACOB hose (4) Headache: Plan: Acetaminophen Use K-pad on back of neck as suspect this is somewhat tension from her neck - notably may be worse tomorrow if lasix causing dehydration Continue Flonase (5) Interstitial lung disease: Plan: -Stable on RA -Incentive spirometry and prn albuterol (6) Hypothyroidism (acquired): Plan: -Continue levothyroxine (7) GERD (gastroesophageal reflux disease): Plan: -Continue PPI (8) HTN (hypertension): Plan: -Stable -Conitnue metoprolol (9) CKD (chronic kidney disease), stage IV: Plan: -Currently stable -Monitor daily renal function (10) Tremor: Plan: -Continue Carbidopa-Levodopa (11) Anemia: Plan: -Stable -Continue B12 Plan VTE Prophylaxis - Eliquis Diet - low fiber, low fat Disposition - stable for transfer to med/surg, no concerning arrhythmias on telemetry and she reports the weight of the teletypesetter monitor is hampering her movements Admission and Anticipated Discharge Date Admission Date: May 10, 2023 Subjective Left leg rash reportedly for the last few days. Prior use of Lasix has caused dehydration. Complaining of bilateral frontal headache and also over her maxillary sinuses both sides. Requesting removal of teletypesetter monitor as weighing down her gown and restricting her movements. No further abdominal pain. Unable to be safely discharged home at this time as no one to look after her. Review of Systems Review of Systems: All systems reviewed & are unremarkable except as noted in HPI & below Physical Exam Constitutional: well developed; + not well nourished and no acute distress Respiratory: normal respiratory effort, lungs clear to auscultation Cardiovascular: Rate/Rhythm: regular rate and regular rhythm Heart Sounds: no murmur Extremities: + pedal edema (1+ b/l pitting) Gastrointestinal (Abdomen): normal bowel sounds, soft, nontender, no hepatosplenomegaly Results & Data Results & Data Vital Signs (Past 12 Hours) Vital Signs Temp Pulse Pulse Resp BP Pulse Ox O2 Del Method 05/16/23 07:51 36.7 C 95 H 16 120/62 94 Room Air 05/16/23 07:33 Room Air 05/16/23 04:15 36.7 C 104 H 18 136/69 90 Room Air 05/16/23 01:32 Room Air 05/15/23 23:43 36.5 C 105 H 18 103/56 L 93 Room Air 05/15/23 22:00 101 H Laboratory Results Abnormal lab results 05/16/23 Range/Units 05:39 APTT 32.8 H (21.0-31.0) Seconds Creatinine 1.44 H (0.6-1.2) mg/dl BUN/Creatinine Ratio 9.0 L (10-20) Glucose 110 H (70-99(Fasting)) mg/dl Calcium 8.3 L (8.6-10.3) mg/dl C-Reactive Protein 2.55 H (0-0.5) mg/dl PG Care Time/CCT Total # of Minutes Spent Total Time Spent with Patient: Total time spent is greater than 50% in coordination of care (as documented) at patient's floor/unit and/or counseling patient: Coding Level of Care Code 30682 SUB INP/OBS CARE 2/35MIN Diagnoses Acute cholecystitis K81.0 Chronic deep vein thrombosis (DVT) I82.509 Pedal edema R60.0 Headache R51.9 Interstitial lung disease J84.9 Hypothyroidism (acquired) E03.9 GERD (gastroesophageal reflux disease) K21.9 Essential hypertension I10 Hypertension type: essential hypertension CKD (chronic kidney disease), stage IV N18.4 Tremor R25.1 Anemia D64.9 (8) HTN (hypertension) Hypertension type: essential hypertension Qualified Code(s): I10 - Essential (primary) hypertension
[2023-05-16] MEDS ORDERED: FUROSEMIDE INJ 20 MG/2 ML VIAL IV ONE (13:13)
[2023-05-16] MEDS: cefTRIAXone SODIUM 1,000 MG in DEXTROSE 5 % MINI-B 50 ML IV SCH (17:35)
[2023-05-16] MEDS: ATORVASTATIN 40 MG TAB PO SCH (21:02)
[2023-05-17] MEDS: ACETAMINOPHEN 325 MG TAB PO PRN ×2 (04:43→13:44)
[2023-05-17] MEDS: LEVOTHYROXINE SODIUM 88 MCG TABLET PO SCH (04:44)
[2023-05-17 07:26] LABS: Albumin Globulin Ratio 0.9 (0.9-2); Albumin Level 2.8 gm/dl (3.4-5.0); BUN Creatinine Ratio 8.5 (10-20); Bilirubin,Total 0.3 mg/dl (0.2-1.0); Calcium 8.5 mg/dl (8.6-10.3); Creatinine Clr Calc Pharmacy 22.6 ml/min; Est GFR (African American) 40.7 ml/min; Est GFR (Non-African American) 35.1 ml/min; Potassium 3.9 mmol/L (3.5-5.1); Total Protein 5.8 gm/dl (6.0-8.3)
[2023-05-17] MEDS: CARBIDOPA/LEVODOP 10/100MG TAB PO SCH ×3 (08:57→20:50)
[2023-05-17] MEDS: metroNIDAZOLE 500 MG TAB PO SCH ×3 (08:58→20:51)
[2023-05-17] MEDS: PANTOprazole 40 MG TAB PO SCH (08:58)
[2023-05-17] MEDS: APIXABAN 5 MG TABLET PO SCH ×2 (08:58→20:50)
[2023-05-17] MEDS: ASPIRIN 81 MG ECTAB PO SCH (08:59)
[2023-05-17] MEDS: LACTOBACILLUS ACIDOPHILUS 1 GM PACK PO SCH ×3 (08:59→19:02)
[2023-05-17] MEDS: METOPROLOL SUCC 50MG EXT REL TAB PO SCH (08:59)
[2023-05-17] MEDS: CARBAMIDE PEROXIDE 6.5% 15 ML BTL OT SCH ×2 (09:00→20:51)
[2023-05-17] MEDS: FLUTICASONE PROPIONATE NA SPR 16 GM BTL NAE SCH (11:38)
[2023-05-17] MEDS: cefTRIAXone SODIUM 1,000 MG in DEXTROSE 5 % MINI-B 50 ML IV SCH (18:07)
--- NOTE | 2023-05-17 18:48 | Hospitalist Progress Note ---
Date of Service May 17, 2023 Assessment & Plan (1) Acute cholecystitis: Plan: Presented to the ED with 3 days of progressive RUQ pain CT of the abd/pelvis showed Gallbladder wall thickening and right upper quadrant stranding concerning for acute cholecystitis LFT's are WNL (last checked 05/15) Will continue with ceftriaxone +metronidazole while inpatient, at this point patient has about 7 days if IUV antibiotics. Can continue until Saturday when patient will be discharged home. Surgery consulted and recommended follow up in 2 week in outpatient clinic for consideration of cholecystectomy in outpatient setting (2) Chronic deep vein thrombosis (DVT): Plan: Previously on Elqiuis and Coumadin but these had to be discontinued due to complications Was then on Xarelto but had to be discontinued due to renal function Dr. Fredrick joseph, was consulted during last admission in December, recommended 81 mg aspirin daily -resumed eliquis this admission due to left lower leg swelling although no acute DVT identified Patient tolerating full treatment dose. (3) Pedal edema: Plan: I suspect this is due to IV fluids given in setting of poor venous return She reports not being able to take Lasix as it dries her out too much which suggests this is more a venous insufficiency problem however will give a one off dose of Lasix 20mg IV 05/16 and monitor response and Cr in addition to use using JACOB hose (4) Headache: Plan: Acetaminophen Use K-pad on back of neck as suspect this is somewhat tension from her neck - notably may be worse tomorrow if lasix causing dehydration Continue Flonase (5) Interstitial lung disease: Plan: -Stable on RA -Incentive spirometry and prn albuterol (6) Hypothyroidism (acquired): Plan: -Continue levothyroxine (7) GERD (gastroesophageal reflux disease): Plan: -Continue PPI (8) HTN (hypertension): Plan: -Stable -Conitnue metoprolol (9) CKD (chronic kidney disease), stage IV: Plan: -Currently stable -Monitor daily renal function (10) Tremor: Plan: -Continue Carbidopa-Levodopa (11) Anemia: Plan: -Stable -Continue B12 Plan VTE Prophylaxis - Eliquis Diet - low fiber, low fat Disposition - stable for transfer to med/surg, no concerning arrhythmias on telemetry and she reports the weight of the cardiac care unit nurse is hampering her movements Patient was able to ambulate 9 feet with PT. Admission and Anticipated Discharge Date Admission Date: May 10, 2023 Subjective Patient reports no new symptoms. Review of Systems Review of Systems: All systems reviewed & are unremarkable except as noted in HPI & below Physical Exam Physical Exam: General: In no acute distress, stated age, well-nourished, non-toxic appearing HEENT: Normocephalic, atraumatic, no pain when palpating sinuses, Right ear: with ear wax. Chest/Pulm: minimal wheezing Cardiac: RRR, no murmurs noted Abdomen: soft, non tender, Musculoskeletal: Symmetrical and without signs of acute trauma, upper and lower extremities with full ROM, no atrophy, spasticity, or flaccidity Extremities: Radial, dorsalis pedis Neuro: Alert and oriented to person, place, month, year, and president, no focal defects, baseline tremor noted Psych: No acute distress, calm and cooperative during the exam Results & Data Results & Data Vital Signs (Past 12 Hours) Vital Signs Temp Pulse Resp BP Pulse Ox O2 Del Method 05/17/23 15:16 36.3 C L 91 H 16 144/75 H 95 Room Air 05/17/23 07:55 36.7 C 95 H 16 134/60 92 Room Air PG Care Time/CCT Total # of Minutes Spent Total Time Spent with Patient: Total time spent is greater than 50% in coordination of care (as documented) at patient's floor/unit and/or counseling patient: Coding Level of Care Code 51383 SUB INP/OBS CARE 2/35MIN Diagnoses Acute cholecystitis K81.0 Chronic deep vein thrombosis (DVT) I82.509 Pedal edema R60.0 Headache R51.9 Interstitial lung disease J84.9 Hypothyroidism (acquired) E03.9 GERD (gastroesophageal reflux disease) K21.9 Essential hypertension I10 Hypertension type: essential hypertension CKD (chronic kidney disease), stage IV N18.4 Tremor R25.1 Anemia D64.9 (8) HTN (hypertension) Hypertension type: essential hypertension Qualified Code(s): I10 - Essential (primary) hypertension
[2023-05-17] MEDS: ATORVASTATIN 40 MG TAB PO SCH (20:49)
[2023-05-17] MEDS: SIMETHICONE 80 MG CHEW PO PRN (22:15)
[2023-05-18] MEDS: ACETAMINOPHEN 325 MG TAB PO PRN ×2 (06:33→16:20)
[2023-05-18] MEDS: LEVOTHYROXINE SODIUM 88 MCG TABLET PO SCH (06:34)
[2023-05-18 06:36] LABS: Basophils # (auto) 0.04 K/uL (0.00-0.20); Basophils % (auto) 0.4 %; Eosinophils # (auto) 0.18 K/uL (0.00-0.50); Eosinophils % (auto) 1.9 %; Hematocrit (blood only) 33.9 % (37.0-47.0); Immature Granulocytes # (auto) 0.06 K/uL (0.01-0.20); Immature Granulocytes % (auto) 0.6 %; Lymphocytes # (auto) 1.94 K/uL (1.20-3.40); Mean Corpuscular Hemoglobin 33.3 pg (25.0-34.0); Mean Corpuscular Hgb Conc 32.4 g/dL (32.0-36.0); Mean Corpuscular Volume 102.7 fL (80.0-100.0); Mean Platelet Volume 10.1 fL (9.4-12.4); Monocytes # (auto) 0.75 K/uL (0.11-0.59); Monocytes % (auto) 7.7 %; Neutrophils # (auto) 6.74 K/uL (1.40-6.50); Neutrophils % (auto) 69.4 %; Platelet Count 360 K/uL (130-400); RDW Coefficient of Variation 14.4 % (11.5-14.5); RDW Standard Deviation 54.4 fL (36.4-46.3); White Blood Count 9.71 K/ul (4.8-10.8)
[2023-05-18 06:49] LABS: BUN Creatinine Ratio 9.4 (10-20); C Reactive Protein 2.34 mg/dl (0-0.5); Creatinine Clr Calc Pharmacy 22.9 ml/min; Est GFR (African American) 41.4 ml/min; Est GFR (Non-African American) 35.7 ml/min; Potassium 4.1 mmol/L (3.5-5.1)
[2023-05-18] MEDS: LACTOBACILLUS ACIDOPHILUS 1 GM PACK PO SCH ×2 (09:02→12:50)
[2023-05-18] MEDS: SIMETHICONE 80 MG CHEW PO PRN ×2 (09:03→20:17)
[2023-05-18] MEDS: APIXABAN 5 MG TABLET PO SCH ×2 (09:03→20:14)
[2023-05-18] MEDS: ASPIRIN 81 MG ECTAB PO SCH (09:03)
[2023-05-18] MEDS: CARBAMIDE PEROXIDE 6.5% 15 ML BTL OT SCH ×2 (09:04→20:17)
[2023-05-18] MEDS: CARBIDOPA/LEVODOP 10/100MG TAB PO SCH ×3 (09:04→20:15)
[2023-05-18] MEDS: FLUTICASONE PROPIONATE NA SPR 16 GM BTL NAE SCH (09:05)
[2023-05-18] MEDS: metroNIDAZOLE 500 MG TAB PO SCH ×3 (09:06→20:16)
[2023-05-18] MEDS: PANTOprazole 40 MG TAB PO SCH (09:06)
[2023-05-18] MEDS: METOPROLOL SUCC 50MG EXT REL TAB PO SCH (09:06)
--- NOTE | 2023-05-18 12:40 | Hospitalist Progress Note ---
Date of Service May 18, 2023 Assessment & Plan (1) Acute cholecystitis: Plan: Presented to the ED with 3 days of progressive RUQ pain CT of the abd/pelvis showed Gallbladder wall thickening and right upper quadrant stranding concerning for acute cholecystitis LFT's are WNL (last checked 05/15) Will continue with ceftriaxone + metronidazole while inpatient, continue total course 10 days given no surgical intervention Surgery consulted and recommended follow up in 2 week in outpatient clinic for consideration of cholecystectomy in outpatient setting (2) Chronic deep vein thrombosis (DVT): Plan: Previously on Elqiuis and Coumadin but these had to be discontinued due to complications Was then on Xarelto but had to be discontinued due to renal function Dr. Fredrick joseph, was consulted during last admission in December, recommended 81 mg aspirin daily -resumed eliquis this admission due to left lower leg swelling although no acute DVT identified Patient tolerating full treatment dose. (3) Pedal edema: Plan: Improved with one dose of Lasix. She reports no longer an issue at this time. (4) Headache: Plan: Improving with acetaminophen Use K-pad on back of neck as suspect this is somewhat tension from her neck Continue Flonase (5) Interstitial lung disease: Plan: -Stable on RA -Incentive spirometry and prn albuterol (6) Hypothyroidism (acquired): Plan: -Continue levothyroxine (7) GERD (gastroesophageal reflux disease): Plan: -Continue PPI Suspect her bloating is more from just lack of movement and should improve once discharged. Will use simethicone regularly while here. (8) HTN (hypertension): Plan: -Stable -Conitnue metoprolol (9) CKD (chronic kidney disease), stage IV: Plan: -Currently stable -Monitor daily renal function (10) Tremor: Plan: -Continue Carbidopa-Levodopa Consult neurology per patient's request to help optimize ability to manage at home (11) Anemia: Plan: -Stable -Continue B12 Plan VTE Prophylaxis - Eliquis Diet - low fiber, low fat Disposition - unable to contact daughter today to confirm but plan is for discharge home tomorrow Admission and Anticipated Discharge Date Admission Date: May 10, 2023 Anticipated date of discharge: 05/19/23 Subjective Headache improving. She is concerned she is not safe to go home but also does not want to go to inpatient rehabilitation. She feels she cannot walk although was seen by PT yesterday and assessed ability to return home. Per RN she has been mobilizing to the bathroom without issues. She feels her tremor is worse than her baseline and thinks this is why she feels unsafe while walking. No abdominal pain but she is having bloating and was started on simethicone yesterday. Tried calling her daughter to make sure plan to discharge tomorrow was still ok but went through to voicemail at this time. Review of Systems Review of Systems: All systems reviewed & are unremarkable except as noted in HPI & below Physical Exam Constitutional: well developed; + not well nourished and no acute distress Respiratory: normal respiratory effort, lungs clear to auscultation Cardiovascular: Rate/Rhythm: regular rate and regular rhythm Heart Sounds: no murmur Extremities: + pedal edema (trace b/l pitting) Gastrointestinal (Abdomen): normal bowel sounds, soft, nontender, no hepatosplenomegaly Neurologic: moves all extremities and awake Motor/Sensory: + tremor (resting b/l) Results & Data Results & Data Vital Signs (Past 12 Hours) Vital Signs Temp Pulse Resp BP Pulse Ox O2 Del Method 05/18/23 08:20 36.5 C 102 H 16 122/70 91 Room Air 05/18/23 08:00 Room Air Laboratory Results Abnormal lab results 05/18/23 Range/Units 05:51 RBC 3.30 L (4.20-5.40) M/uL Hgb 11.0 L (12.0-16.0) g/dl Hct 33.9 L (37.0-47.0) % MCV 102.7 H (80.0-100.0) fL RDW Std Deviation 54.4 H (36.4-46.3) fL Neut # (Auto) 6.74 H (1.40-6.50) K/uL Baxter # (Auto) 0.75 H (0.11-0.59) K/uL Carbon Dioxide 34 H (21-32) mmol/L Creatinine 1.39 H (0.6-1.2) mg/dl BUN/Creatinine Ratio 9.4 L (10-20) Glucose 112 H (70-99(Fasting)) mg/dl C-Reactive Protein 2.34 H (0-0.5) mg/dl PG Care Time/CCT Total # of Minutes Spent Total Time Spent with Patient: Total time spent is greater than 50% in coordination of care (as documented) at patient's floor/unit and/or counseling patient: Coding Level of Care Code 80083 SUB INP/OBS CARE MIN Diagnoses Acute cholecystitis K81.0 Chronic deep vein thrombosis (DVT) I82.509 Pedal edema R60.0 Headache R51.9 Interstitial lung disease J84.9 Hypothyroidism (acquired) E03.9 GERD (gastroesophageal reflux disease) K21.9 Essential hypertension I10 Hypertension type: essential hypertension CKD (chronic kidney disease), stage IV N18.4 Tremor R25.1 Anemia D64.9 (8) HTN (hypertension) Hypertension type: essential hypertension Qualified Code(s): I10 - Essential (primary) hypertension
[2023-05-18] MEDS: ADVANCED PROBIOTIC 1250 MG CAPSULE PO SCH (15:36)
[2023-05-18] MEDS: cefTRIAXone SODIUM 1,000 MG in DEXTROSE 5 % MINI-B 50 ML IV SCH (17:44)
[2023-05-18] MEDS: ATORVASTATIN 40 MG TAB PO SCH (20:14)
[2023-05-19] MEDS: LEVOTHYROXINE SODIUM 88 MCG TABLET PO SCH (06:27)
[2023-05-19] MEDS: ACETAMINOPHEN 325 MG TAB PO PRN ×2 (06:28→17:01)
--- NOTE | 2023-05-19 08:34 | Neurology Consultation ---
Date of Consultation May 19, 2023 Assessment & Plan (1) Tremor: (2) Gait disturbance: (3) Memory loss: Plan This patient has a significant tremor, mostly action. I did not see much in the way of rest tremor but her history suggests a mixed tremor. Although she does not have obvious Parkinson's disease, there are some parkinsonism features including some minimal bradykinesia and cogwheeling. Gait is not typical for parkinsonism. She limps favoring the left leg. She likely has some polyneuropathy involving predominantly sensory fibers from her diabetes which would give her a sensory ataxia. The only medications she is really responded to in her opinion is carb idopa/levodopa. She is tried and failed many medications as listed in the history. She is followed by movement disorder clinic at [facility]. Recommendations: 1. Consider increasing carbidopa/levodopa to 1-1/2 tablets 4 times a day (8:00 a.m., noon, 4:00 p.m., 8:00 p.m.). 2. PT and OT consults. I think she would make an excellent rehab hospital candidate. I am not sure she is safe to go home by herself. 3. Consider EMG nerve conduction studies of the legs as an outpatient to further evaluate gait disturbance. 4. Follow-up with [facility] movement Disorder Clinic and with Dr. Awad. Overall, I spent a total of 60 minutes with this case including review of records, direct evaluation the patient at bedside, report generation, and discussion of the case with the patient and RN at bedside, and Dr. Perry, including differential diagnosis and treatment options. History of Present Illness Reason for Consultation: Patient is an 78-year-old, who I was asked to see the request of Dr. Perry, for neurologic evaluation regarding tremor and parkinsonism. Requesting Physician: Dr. 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 Over the last 4 years she is had tremor. It was not the city is onset and gradual progression. She was 1st seen by Neurology at [facility] in April of 2020. It was mostly an action tremor but there was a resting component to it. No parkinsonism was identified at that time. Over time, the tremor progressed and she tried and failed many things for tremor including primidone, gabapentin, propranolol, amantadine, levetiracetam, clonazepam, and zonisamide. Most of these medicines simply did not help. An MRI of the brain in August of 2020 showed some atrophy and small-vessel ischemic disease consistent with age but no acute changes. Starting in 2021 she went to the [facility] movement Disorder Clinic (Dr. 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 The patient has been on carbidopa levodopa for over a year and starting in December of this year (her last [facility] clinic visit) she was increased to carbidopa/levodopa, 10/100, 1-1/2 tablets 3 times a day. She believes this medi cation helps at the higher dose. She still has significant tremor. When she is up walking she notices the tremor less. Her gait is poor and her left leg can buckle. She uses a walker for support. She denies stiffness but believe she is slow. She also feels that her feet maybe a little bit numb. She was admitted May 10 for acute cholecystitis , which is improved. She does not feel safe going home because of her gait and tremor. She is considering the rehab hospital. Laboratory studies show mild anemia and mildly elevated glucose. Creatinine is elevated 1.4 C-reactive protein is elevated at 2.34. Blood pressure is 104/68 she is afebrile. Allergies Allergy/AdvReac Type Severity Reaction Status Date / Time nitrofurantoin Allergy Intermediate HIVES,ITCHI Verified 04/23/23 10:47 NG azithromycin [From Zithromax] Allergy HIVES Verified 04/23/23 10:47 tramadol AdvReac Mild nausea Verified 04/23/23 10:47 Home Medications Medication Instructions Recorded Confirmed Type aspirin 81 mg tablet,delayed 81 mg PO QAM 06/06/18 05/10/23 History release denosumab 60 mg/mL subcutaneous 60 mg subcut Q6MO 02/25/19 05/10/23 History syringe lancets 33 gauge ([employer] FFT Guy #100 ea 07/13/20 04/23/23 History Lancets) blood sugar diagnostic ([employer] FFT #10 ea 12/08/21 04/23/23 History Ultra Blue Test Strip) albuterol sulfate 90 mcg/actuation 2 puff inhalation QID PRN 03/05/22 05/10/23 Rx aerosol inhaler (Ventolin HFA) shortness of breath or wheezing #6.7 grams calcium carbonate 500 mg calcium 500 mg PO QAM 06/29/22 05/10/23 History (1,250 mg) chewable tablet (Calcium 500) pyridoxine (vitamin B6) 100 mg 100 mg PO Q OTHER DAY 06/29/22 05/10/23 History tablet albuterol sulfate 2.5 mg/3 mL 2.5 mg inhalation Q8H PRN 01/09/23 05/10/23 History (0.083 %) solution for nebulization Shortness Of Breath Or Wheezing carbidopa 10 mg-levodopa 100 mg 1.5 tab PO TID 01/09/23 05/10/23 History tablet cyanocobalamin (vitamin B-12) 500 500 mcg PO QAM 01/09/23 05/10/23 History mcg tablet hydrocortisone acetate 25 mg 25 mg NM BID PRN Hemorrhoids 01/09/23 05/10/23 History rectal suppository (Anusol-HC) levothyroxine 88 mcg tablet 88 mcg PO DAILYBB 01/09/23 05/10/23 History dexlansoprazole 60 mg 60 mg PO QAM #90 caps 01/25/23 05/10/23 Rx capsule,biphase delayed release (Dexilant) atorvastatin 80 mg tablet 80 mg PO HS #90 tabs 02/12/23 05/10/23 Rx metoprolol succinate 50 mg 50 mg PO QAM #90 tabs 02/21/23 05/10/23 Rx tablet,extended release 24 hr valacyclovir 500 mg tablet 500 mg PO DAILY PRN breakout #14 02/21/23 05/10/23 Rx tabs fluticasone propionate 50 2 spray intranasal QAM PRN Allergy 03/01/23 05/10/23 Rx mcg/actuation nasal Symptoms #16 grams spray,suspension Patient History Medical History Right-sided headache Chronic deep vein thrombosis (DVT) Prediabetes Iron deficiency anemia Secondary hyperparathyroidism of renal origin Leg length discrepancy Acute kidney injury Ankle edema, bilateral Arthritis Asymptomatic menopausal state Blood glucose abnormal Cardiomyopathy Cholelithiasis Chronic GERD Chronic fatigue syndrome Chronic laryngitis Chronic pharyngitis Cigarette smoker motivated to quit Cough 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 Deep vein thrombosis of distal lower extremity Depression Dermatitis, eczematoid Diabetes mellitus (11/29/12) Dizziness Dyspnea on exertion Dysuria Gastropathy Hearing loss Hematuria, microscopic Herpes simplex Hoarseness Hyperglycemia Hypothyroidism Interstitial lung disease Ischemic colitis Laryngitis Lightheadedness Low back pain Lumbar spinal stenosis Muscle spasm NSTEMI (non-ST elevated myocardial infarction) Nasal dryness Nicotine dependence 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 Recurrent UTI Rib pain on right side SNHL (sensorineural hearing loss) Secondary hyperparathyroidism (of renal origin) Shortness of breath Solitary pulmonary nodule Subsequent non-ST elevation (NSTEMI) myocardial infarction Takotsubo syndrome Tendinitis of left rotator cuff Type 2 diabetes mellitus without complication Vertigo Stroke-like symptoms GERD (gastroesophageal reflux disease) Chronic kidney disease Hypothyroidism (acquired) Pneumonia Constipation GI bleed Chronic deep vein thrombosis of left lower extremity Sinusitis Hematuria Kidney stones Hyperlipidemia DVT (deep venous thrombosis) Osteopenia (11/29/12) Thyroid disease Compression fracture of lumbar vertebra Surgical History History of tubal ligation History of D&C History of Hx of colonoscopy Family History Mother , age 76 with leukemia Leukemia Hypertension Father , age 86 with heart issues Myocardial infarction Diabetes Other Family history non-contributory Denies family history of Ovarian cancer Prostate cancer Breast cancer Lung cancer Social History (Updated 05/19/23 @ 08:25 by Reynold Paulson MD) Smoking Status: Former smoker Tobacco Type: Cigarettes Age Started Using Tobacco: 17; Age Quit Using Tobacco: 73; packs per day: 1; Cigarettes Per Day: At 1st cigarette smoking with sparse, but at the end she was smoking 1ppd; Second Hand Exposure: No; Do You Dip or Chew Tobacco: No; Hx Alcohol Use: No Hx Substance Use: Yes Last Used Substance: Hours (ago) Preferred Language: Chinese Communication Ability: Effective Visual Impairment: No Limitations Hearing Ability: Use of Hearing Aid Db2 Dba Required: No Beliefs That Will Affect Care: None marital status: Current Living Situation: Alone and Personal Care Facility Current Living Situation Comment: Has a caregiver current occupational status: retired 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 Safe at Home: Yes Childhood Exposure to Second-Hand Smoke: Yes caffeine: No Dental Care, Regularly: No Physical Activity Frequency: Does not Exercise Seatbelt Use: always Sunscreen Use: No Assistive Devices: Walker Review of Systems Constitutional: no fever, no fatigue and no weakness Eyes: no diplopia, no eye pain and no worsening vision Ear, Nose, Mouth, Throat: no ear pain, no tinnitus, no hearing loss, no dizziness, no snoring, no hoarseness and no dysphagia Respiratory: no cough and no dyspnea Cardiovascular: no chest pain, no palpitations and no lightheadedness Gastrointestinal: no abdominal pain, no nausea and no vomiting Genitourinary: no dysuria, no urinary frequency and no urinary incontinence Musculoskeletal: no back pain, no neck pain, no radicular pain, no joint pain and no myalgia Integumentary: no rash and no lesions Neurologic: + gait abnormality, + localized weakness , + numbness and + tremor(s); no generalized weakness, no tingling, no abnormal movements, no headache(s), no abnormal speech, no confusion and no memory loss Psychiatric: no depression, no irritability, no anxiety, no difficulty concentrating, no confusion and no hallucinations Endocrine: no fatigue and no flushing Hematologic / Lymphatic: no easy bleeding and no easy bruising Allergy / Immunological: no urticaria and no problem reported Exam (Neuro) Physical Exam: The patient is right-handed. The patient is awake, alert, and attentive. Speech is normal without any aphasia or dysarthria. The patient can name objects, repeat phrases, and has normal spontaneous speech. She is oriented but somewhat slow in answering questions at times. Attention and concentration are normal. Mood and affect are normal and appropriate. General appearance and grooming are normal. She has memory deficits to conversation Pupils are 3 mm bilaterally and reactive to light. Extraocular eye muscles are intact without nystagmus. Visual acuity and visual rees seem normal grossly to confrontation. There are no deficits to sensation in the face in all 3 distributions of the fifth cranial nerve bilaterally. Corneal reflexes are positive bilaterally. Facial strength and symmetry was normal bilaterally. Hearing seems normal bilaterally. Palate moves well without asymmetry. There is normal sternocleidomastoid and trapezius (shoulder shrug) strength bilaterally. Tongue is midline with good strength bilaterally. Neck has a full range of motion without discomfort. There are no cervical bruits bilaterally. There are no cranial or ocular bruits. Heart is without murmur. There is a regular rhythm and rate. Cervical, thoracic, and lumbar spine are mildly tender to palpation. Spine has considerable kyphosis. Gait is very slow and cautious and she limps favoring the left leg. She needs assistance to hold on. There is no upper extremity tremor with gait. With outstretched arms there is no drift. This morning, I noted no significant resting tremor. I did note a moderate action tremor bilaterally. There was a head tremor in a very mild voice tremor. There is no ataxia with finger to nose testing. She has run down affect with rapid repetitive movements in her hands. No other abnormal involuntary movements are noted. Motor strength is 5/5 diffusely in the arms bilaterally including deltoids, biceps, triceps, brachioradialis, wrist flexors and extensors, cooking casing and drying supervisor, and intrinsic hand muscles. Motor strength is 5/5 diffusely in the legs bilaterally including hip flexors, quadriceps, hamstrings, gastrocnemius, tibialis anterior, tibialis posterior, and Peroneii muscles. Toe extensors are normal and there is good bulk in the extensor digitorum brevis muscles bilaterally. There may be some very mild cogwheel rigidity of the upper extremities but this is questionable. There is some very mild bradykinesia in general. She does not have a true masklike face but she does have a positive glabellar sign Sensory examination is intact to touch and pin throughout all 4 limbs diffusely. Reflexes are 1/4 in the biceps, triceps, and quadriceps tendons bilaterally. Brachioradialis and Achilles tendon reflexes are absent bilaterally. Toes are downgoing with plantar stimulation bilaterally. Peripheral pulses are present and of normal quality distally in all 4 limbs. There is no peripheral edema noted in the limbs. Results & Data Vital Signs (Past 12 Hours) Vital Signs Temp Pulse Resp BP Pulse Ox O2 Del Method 05/19/23 07:42 36.8 C 96 H 16 104/68 92 Room Air PG Care Time/CCT Total # of Minutes Spent Total Time Spent with Patient: Total time spent is greater than 50% in coordination of care (as documented) at patient's floor/unit and/or counseling patient: Coding Level of Care Code 41548 INT INP/OBS CARE 2/55MIN Diagnoses Tremor R25.1 Gait disturbance R26.9 Memory loss R41.3 Time Spent (min) 60
[2023-05-19] MEDS: ASPIRIN 81 MG ECTAB PO SCH (09:07)
[2023-05-19] MEDS: SIMETHICONE 80 MG CHEW PO PRN (09:07)
[2023-05-19] MEDS: ADVANCED PROBIOTIC 1250 MG CAPSULE PO SCH (09:07)
[2023-05-19] MEDS: PANTOprazole 40 MG TAB PO SCH (09:07)
[2023-05-19] MEDS: CARBIDOPA/LEVODOP 10/100MG TAB PO SCH ×6 (09:08→20:18)
[2023-05-19] MEDS: metroNIDAZOLE 500 MG TAB PO SCH ×3 (09:08→21:20)
[2023-05-19] MEDS: METOPROLOL SUCC 50MG EXT REL TAB PO SCH ×2 (09:08→09:43)
[2023-05-19] MEDS: APIXABAN 5 MG TABLET PO SCH (09:11)
[2023-05-19] MEDS: FLUTICASONE PROPIONATE NA SPR 16 GM BTL NAE SCH (09:13)
[2023-05-19] MEDS: CARBAMIDE PEROXIDE 6.5% 15 ML BTL OT SCH (09:15)
--- NOTE | 2023-05-19 14:36 | Hospitalist Progress Note ---
Date of Service May 19, 2023 Assessment & Plan (1) Acute cholecystitis: Plan: Presented to the ED with 3 days of progressive RUQ pain CT of the abd/pelvis showed Gallbladder wall thickening and right upper quadrant stranding concerning for acute cholecystitis LFT's are WNL (last checked 05/15) Will continue with ceftriaxone + metronidazole while inpatient, continue total course 10 days given no surgical intervention Surgery consulted and recommended follow up in 2 week in outpatient clinic for consideration of cholecystectomy in outpatient setting (2) Chronic deep vein thrombosis (DVT): Plan: Previously on Elqiuis and Coumadin but these had to be discontinued due to complications Was then on Xarelto but had to be discontinued due to renal function Dr. Alcala follows, was consulted during last admission in December, recommended 81 mg aspirin daily Patient concerned about full dose Eliquis but amenable to prophylaxis dosing which given her borderline age and renal function , will switch to Eliquis (3) Pedal edema: Plan: Improved with one dose of Lasix [05/16] to help with IV fluids given prior in admission. She reports no longer an issue at this time. (4) Headache: Plan: Improving with acetaminophen Use K-pad on back of neck as suspect this is somewhat tension from her neck Continue Flonase (5) Interstitial lung disease: Plan: -Stable on RA -Incentive spirometry and prn albuterol (6) Hypothyroidism (acquired): Plan: -Continue levothyroxine (7) GERD (gastroesophageal reflux disease): Plan: -Continue PPI Suspect her bloating is more from just lack of movement and should improve once discharged. Will use simethicone regularly while here. (8) HTN (hypertension): Plan: -Stable -Conitnue metoprolol (9) CKD (chronic kidney disease), stage IV: Plan: -Currently stable -Monitor daily renal function (10) Tremor: Plan: Appreciate neurology consult - will increase Sinemet to QID dosing (11) Anemia: Plan: -Stable -Continue B12 Plan VTE Prophylaxis - Eliquis Diet - low fiber, low fat Disposition - Patient declining discharge home, wishes to go to inpatient rehab as she doesn't feel safe at home at this time Medically stable for discharge pending placement Admission and Anticipated Discharge Date Admission Date: May 10, 2023 Anticipated date of discharge: 05/20/23 Subjective Headache stable, no further abdominal pain. She does not feel safe to go home. No fever, chills. Having normal BM. Continued bloating but simethicone has been helpful. Eating well. Longstanding left leg tingling but has been worse while she has been in hospital. Review of Systems Review of Systems: All systems reviewed & are unremarkable except as noted in HPI & below Physical Exam Constitutional: well developed; + not well nourished and no acute distress Respiratory: normal respiratory effort, lungs clear to auscultation Cardiovascular: Rate/Rhythm: regular rate and regular rhythm Heart Sounds: no murmur Extremities: + pedal edema (trace b/l pitting) Gastrointestinal (Abdomen): normal bowel sounds, soft, nontender, no hepatosplenomegaly Neurologic: moves all extremities and awake Results & Data Results & Data Vital Signs (Past 12 Hours) Vital Signs Temp Pulse Resp BP Pulse Ox O2 Del Method 05/19/23 09:00 97 H 94/54 L 05/19/23 07:42 36.8 C 96 H 16 104/68 92 Room Air 05/19/23 07:35 Room Air Laboratory Results Abnormal lab results 05/19/23 Range/Units 07:58 POC Glucose 117 H (70-99) mg/dl PG Care Time/CCT Total # of Minutes Spent Total Time Spent with Patient: Total time spent is greater than 50% in coordination of care (as documented) at patient's floor/unit and/or counseling patient: Coding Level of Care Code 84648 SUB INP/OBS CARE 2/35MIN Diagnoses Acute cholecystitis K81.0 Chronic deep vein thrombosis (DVT) I82.509 Pedal edema R60.0 Headache R51.9 Interstitial lung disease J84.9 Hypothyroidism (acquired) E03.9 GERD (gastroesophageal reflux disease) K21.9 Essential hypertension I10 Hypertension type: essential hypertension CKD (chronic kidney disease), stage IV N18.4 Tremor R25.1 Anemia D64.9 (8) HTN (hypertension) Hypertension type: essential hypertension Qualified Code(s): I10 - Essential (primary) hypertension
[2023-05-19] MEDS: cefTRIAXone SODIUM 1,000 MG in DEXTROSE 5 % MINI-B 50 ML IV SCH (17:34)
[2023-05-19] MEDS: APIXABAN 2.5 MG TAB PO SCH (21:19)
[2023-05-19] MEDS: ATORVASTATIN 40 MG TAB PO SCH (21:20)
[2023-05-20] MEDS: ACETAMINOPHEN 325 MG TAB PO PRN ×2 (04:53→19:30)
[2023-05-20] MEDS: LEVOTHYROXINE SODIUM 88 MCG TABLET PO SCH (06:44)
[2023-05-20] MEDS: CARBIDOPA/LEVODOP 10/100MG TAB PO SCH ×4 (08:12→19:31)
[2023-05-20] MEDS: ASPIRIN 81 MG ECTAB PO SCH (08:13)
[2023-05-20] MEDS: APIXABAN 2.5 MG TAB PO SCH ×2 (08:13→20:56)
[2023-05-20] MEDS: METOPROLOL SUCC 50MG EXT REL TAB PO SCH (08:14)
[2023-05-20] MEDS: FLUTICASONE PROPIONATE NA SPR 16 GM BTL NAE SCH (08:14)
[2023-05-20] MEDS: ADVANCED PROBIOTIC 1250 MG CAPSULE PO SCH (08:14)
[2023-05-20] MEDS: PANTOprazole 40 MG TAB PO SCH (08:15)
[2023-05-20] MEDS: metroNIDAZOLE 500 MG TAB PO SCH ×3 (08:15→20:55)
[2023-05-20 08:18] LABS: Basophils # (auto) 0.06 K/uL (0.00-0.20); Basophils % (auto) 0.9 %; Eosinophils # (auto) 0.25 K/uL (0.00-0.50); Eosinophils % (auto) 3.6 %; Hematocrit (blood only) 29.9 % (37.0-47.0); Hemoglobin 9.6 g/dl (12.0-16.0); Immature Granulocytes # (auto) 0.03 K/uL (0.01-0.20); Immature Granulocytes % (auto) 0.4 %; Lymphocytes # (auto) 1.84 K/uL (1.20-3.40); Lymphocytes % (auto) 26.5 %; Mean Corpuscular Hemoglobin 32.8 pg (25.0-34.0); Mean Corpuscular Hgb Conc 32.1 g/dL (32.0-36.0); Mean Platelet Volume 10.2 fL (9.4-12.4); Monocytes # (auto) 0.82 K/uL (0.11-0.59); Monocytes % (auto) 11.8 %; Neutrophils # (auto) 3.95 K/uL (1.40-6.50); Neutrophils % (auto) 56.8 %; Platelet Count 365 K/uL (130-400); RDW Coefficient of Variation 14.6 % (11.5-14.5); RDW Standard Deviation 54.1 fL (36.4-46.3); Red Blood Count 2.93 M/uL (4.20-5.40); White Blood Count 6.95 K/ul (4.8-10.8)
--- NOTE | 2023-05-20 09:01 | Neurology Progress Note ---
Date of Service May 20, 2023 Assessment & Plan (1) Tremor: (2) Gait disturbance: (3) Memory loss: Plan This patient has a significant tremor, mostly action. I do not appreciate any rest tremor, but her history suggests a mixed action and resting tremor. Although she does not have obvious Parkinson's disease, there are some parkinsonism features including some minimal bradykinesia and cogwheeling. Gait is not typical for parkinsonism. She limps favoring the left leg. She likely has some polyneuropathy involving predominantly sensory fibers from her diabetes which would give her a sensory ataxia. The only medications she is really responded to in her opinion is carbidopa/levodopa. She is tried and failed many medications as listed in the history. She is followed by movement disorder clinic at [facility]. Recommendations: 1. Continue carbidopa/levodopa to 1-1/2 tablets 4 times a day (8:00 a.m., noon, 4:00 p.m., 8:00 p.m.)-it may take 2 or 3 days to appreciate a full effect of this dose change 2. PT and OT consults. I think she would make an excellent rehab hospital candidate. I am not sure she is safe to go home by herself. 3. Consider EMG nerve conduction studies of the legs as an outpatient to further evaluate gait disturbance. 4. Follow-up with [facility] movement Disorder Clinic and with Dr. Awad. 5. Otherwise, please contact me if I can be of further assistance in this case. Overall, I spent a total of 35 minutes with this case including review of records, direct evaluation the patient at bedside, report generation, and discussion of the case with the patient at bedside, and Dr. Funez, including differential diagnosis and treatment options. Admission and Anticipated Discharge Date Admission Date: May 10, 2023 Subjective Patient feels about the same as yesterday with her tremor. She believes that she is going to the rehabilitation hospital soon. She has no new issues. Blood pressure is 111/58 and she is afebrile. Results & Data Vital Signs (Past 12 Hours) Vital Signs Temp Pulse Resp BP Pulse Ox Pulse Ox O2 Del Method 05/20/23 08:07 36.7 C 101 H 16 111/58 L 95 Room Air 05/19/23 21:41 36.7 C 89 17 123/70 93 Room Air 05/19/23 21:20 Room Air 05/19/23 21:20 93 O2 Del Method 05/20/23 08:07 05/19/23 21:41 05/19/23 21:20 05/19/23 21:20 Room Air Exam (Neuro) Physical Exam: She is awake and alert. Speech is without aphasia or dysarthria. Mood and affect are normal appropriate thought processes are intact to conversation. She has a head tremor and a very minimal intermittent voice tremor. She has obvious moderate action tremor with [id number] testing bilaterally. She did not have a resting tremor today. Tone and strength is reasonable and symmetrical in the limbs (similar to May 19). PG Care Time/CCT Total # of Minutes Spent Total Time Spent with Patient: Total time spent is greater than 50% in coordination of care (as documented) at patient's floor/unit and/or counseling patient: Coding Level of Care Code 43055 SUB INP/OBS CARE 2/35MIN Diagnoses Tremor R25.1 Gait disturbance R26.9 Memory loss R41.3
--- NOTE | 2023-05-20 09:46 | Hospitalist Progress Note ---
Date of Service May 20, 2023 Assessment & Plan (1) Acute cholecystitis: Plan: Presented to the ED with 3 days of progressive RUQ pain CT of the abd/pelvis showed Gallbladder wall thickening and right upper quadrant stranding concerning for acute cholecystitis LFT's are WNL (last checked 05/15) Will continue with ceftriaxone + metronidazole while inpatient, continue total course 10 days given no surgical intervention Surgery consulted and recommended follow up in 2 week in outpatient clinic for consideration of cholecystectomy in outpatient setting (2) Chronic deep vein thrombosis (DVT): Plan: Previously on Elqiuis and Coumadin but these had to be discontinued due to complications Was then on Xarelto but had to be discontinued due to renal function Dr. Fredrick joseph, was consulted during last admission in December, recommended 81 mg aspirin daily Patient concerned about full dose Eliquis but amenable to prophylaxis dosing which given her borderline age and renal function , will switch to Eliquis (3) Pedal edema: Plan: Improved with one dose of Lasix [05/16] to help with IV fluids given prior in admission. She reports no longer an issue at this time. (4) Headache: Plan: Improving with acetaminophen Use K-pad on back of neck as suspect this is somewhat tension from her neck Continue Flonase (5) Interstitial lung disease: Plan: -Stable on RA -Incentive spirometry and prn albuterol (6) Hypothyroidism (acquired): Plan: -Continue levothyroxine (7) GERD (gastroesophageal reflux disease): Plan: -Continue PPI Suspect her bloating is more from just lack of movement and should improve once discharged. Will use simethicone regularly while here. (8) HTN (hypertension): Plan: -Stable -Conitnue metoprolol (9) CKD (chronic kidney disease), stage IV: Plan: -Currently stable - (10) Tremor: Plan: MIxed resting and action tremor Appreciate neurology consult - did increase Sinemet to QID dosing (11) Anemia: Plan: -Stable -Continue B12 Plan VTE Prophylaxis - Eliquis Diet - low fiber, low fat rehab suggested by PT/OT Admission and Anticipated Discharge Date Admission Date: May 10, 2023 Subjective neurology did evaluate the patient on 1127 and feels the patient is same as yesterday with her tremor. currently being [facility] PT OT support this recommendation She has no new issues. vital signs are stable Physical Exam Physical Exam: awake and alert a bit of tremor mostly with intention because of some other parkinsonian features as commented by neurology continues on carbidopa levodopa abdomen is NABS soft and nontender Results & Data Results & Data Vital Signs (Past 12 Hours) Vital Signs Temp Pulse Resp BP Pulse Ox O2 Del Method 05/20/23 08:07 98.1 F 101 H 16 111/58 L 95 Room Air 05/20/23 07:50 Nasal Cannula Laboratory Results reviewed CBC discussed case with neurology discussed case with case finisher regarding rehab placement PG Care Time/CCT Total # of Minutes Spent Total Time Spent with Patient: Total time spent is greater than 50% in coordination of care (as documented) at patient's floor/unit and/or counseling patient: Coding Level of Care Code 63650 SUB INP/OBS CARE 235MIN Diagnoses Acute cholecystitis K81.0 Chronic deep vein thrombosis (DVT) I82.509 Pedal edema R60.0 Headache R51.9 Interstitial lung disease J84.9 Hypothyroidism (acquired) E03.9 GERD (gastroesophageal reflux disease) K21.9 Essential hypertension I10 Hypertension type: essential hypertension CKD (chronic kidney disease), stage IV N18.4 Tremor R25.1 Anemia D64.9 (8) HTN (hypertension) Hypertension type: essential hypertension Qualified Code(s): I10 - Essential (primary) hypertension
[2023-05-20] MEDS: cefTRIAXone SODIUM 1,000 MG in DEXTROSE 5 % MINI-B 50 ML IV SCH (17:26)
[2023-05-20] MEDS: ATORVASTATIN 40 MG TAB PO SCH (20:56)
[2023-05-20] MEDS ORDERED: HYDROmorphone INJ 0.5 MG/0.5 ML SYR IV STA (22:23)
[2023-05-21] MEDS: ACETAMINOPHEN 325 MG TAB PO PRN (04:50)
[2023-05-21] MEDS: LEVOTHYROXINE SODIUM 88 MCG TABLET PO SCH (04:51)
[2023-05-21] MEDS: ASPIRIN 81 MG ECTAB PO SCH (07:26)
[2023-05-21] MEDS: APIXABAN 2.5 MG TAB PO SCH ×2 (07:26→21:13)
[2023-05-21] MEDS: CARBIDOPA/LEVODOP 10/100MG TAB PO SCH ×4 (07:26→21:12)
[2023-05-21] MEDS: ADVANCED PROBIOTIC 1250 MG CAPSULE PO SCH (07:27)
[2023-05-21] MEDS: METOPROLOL SUCC 50MG EXT REL TAB PO SCH (07:27)
[2023-05-21] MEDS: PANTOprazole 40 MG TAB PO SCH (07:28)
[2023-05-21] MEDS: FLUTICASONE PROPIONATE NA SPR 16 GM BTL NAE SCH (07:28)
--- NOTE | 2023-05-21 16:52 | Hospitalist Progress Note ---
Date of Service May 21, 2023 Assessment & Plan (1) Acute cholecystitis: Plan: Presented to the ED with 3 days of progressive RUQ pain CT of the abd/pelvis showed Gallbladder wall thickening and right upper quadrant stranding concerning for acute cholecystitis LFT's are WNL (last checked 05/15) Will continue with ceftriaxone + metronidazole while inpatient, continue total course 10 days given no surgical intervention last dose 05/22/2023 Surgery consulted and recommended follow up in 2 week in outpatient clinic for consideration of cholecystectomy in outpatient setting (2) Chronic deep vein thrombosis (DVT): Plan: Previously on Elqiuis and Coumadin but these had to be discontinued due to complications Was then on Xarelto but had to be discontinued due to renal function Dr. Alcala follows, was consulted during last admission in December, recommended 81 mg aspirin daily Patient concerned about full dose Eliquis but amenable to prophylaxis dosing which given her borderline age and renal function , will switch to Eliquis 2.5 twice daily (3) Pedal edema: Plan: Improved with one dose of Lasix [05/16] to help with IV fluids given prior in admission. She reports no longer an issue at this time. (4) Headache: Plan: Improving with acetaminophen Use K-pad on back of neck as suspect this is somewhat tension from her neck Continue Flonase (5) Interstitial lung disease: Plan: -Stable on RA -Incentive spirometry and prn albuterol (6) Hypothyroidism (acquired): Plan: -Continue levothyroxine (7) GERD (gastroesophageal reflux disease): Plan: -Continue PPI Suspect her bloating is more from just lack of movement and should improve once discharged. Will use simethicone regularly while here. (8) HTN (hypertension): Plan: -Stable -Conitnue metoprolol (9) CKD (chronic kidney disease), stage IV: Plan: -Currently stable - (10) Tremor: Plan: MIxed resting and action tremor Appreciate neurology consult - did increase Sinemet to QID dosing (11) Anemia: Plan: -Stable -Continue B12 Plan VTE Prophylaxis - Eliquis Diet - low fiber, low fat pt did have toenail trimmed by myself after verbal permission due to poking nails to neighboring toes rehab suggested by PT/OT subacute rehab will be undertake search for subacute Admission and Anticipated Discharge Date Admission Date: May 10, 2023 Subjective neurology did evaluate the patient on 05/20 and feels the patient is same as yesterday with her tremor. Patient did not [facility] due to performance status and not needing medical oversight. Likely patient will benefit from SNF for subacute rehab attempted to reach family on 05/21 mailbox was full a voicemail to be left Physical Exam Physical Exam: awake and alert a bit of tremor mostly with intention because of some other parkinsonian features as commented by neurology continues on carbidopa levodopa abdomen is NABS soft and nontender Results & Data Results & Data Vital Signs (Past 12 Hours) Vital Signs Temp Pulse Resp BP Pulse Ox O2 Del Method 05/21/23 15:08 98.2 F 90 18 126/72 95 Room Air 05/21/23 07:44 98.2 F 89 20 115/69 93 Room Air 05/21/23 07:30 Room Air PG Care Time/CCT Total # of Minutes Spent Total Time Spent with Patient: Total time spent is greater than 50% in coordination of care (as documented) at patient's floor/unit and/or counseling patient: Coding Level of Care Code 37959 SUB INP/OBS CARE 2/35MIN Diagnoses Acute cholecystitis K81.0 Chronic deep vein thrombosis (DVT) I82.509 Pedal edema R60.0 Headache R51.9 Interstitial lung disease J84.9 Hypothyroidism (acquired) E03.9 GERD (gastroesophageal reflux disease) K21.9 Essential hypertension I10 Hypertension type: essential hypertension CKD (chronic kidney disease), stage IV N18.4 Tremor R25.1 Anemia D64.9 (8) HTN (hypertension) Hypertension type: essential hypertension Qualified Code(s): I10 - Essential (primary) hypertension
[2023-05-21] MEDS: cefTRIAXone SODIUM 1,000 MG in DEXTROSE 5 % MINI-B 50 ML IV SCH (17:16)
[2023-05-21] MEDS: ATORVASTATIN 40 MG TAB PO SCH (21:13)
[2023-05-22] MEDS: LEVOTHYROXINE SODIUM 88 MCG TABLET PO SCH (05:38)
[2023-05-22] MEDS: ACETAMINOPHEN 325 MG TAB PO PRN ×2 (05:40→16:37)
[2023-05-22] MEDS: APIXABAN 2.5 MG TAB PO SCH ×2 (08:01→20:16)
[2023-05-22] MEDS: CARBIDOPA/LEVODOP 10/100MG TAB PO SCH ×4 (08:02→20:17)
[2023-05-22] MEDS: PANTOprazole 40 MG TAB PO SCH (08:03)
[2023-05-22] MEDS: METOPROLOL SUCC 50MG EXT REL TAB PO SCH (08:03)
[2023-05-22] MEDS: ASPIRIN 81 MG ECTAB PO SCH (08:04)
[2023-05-22] MEDS: ADVANCED PROBIOTIC 1250 MG CAPSULE PO SCH (08:04)
[2023-05-22] MEDS: FLUTICASONE PROPIONATE NA SPR 16 GM BTL NAE SCH (08:04)
--- NOTE | 2023-05-22 14:20 | Hospitalist Progress Note ---
Date of Service May 22, 2023 Assessment & Plan (1) Acute cholecystitis: Plan: Presented to the ED with 3 days of progressive RUQ pain CT of the abd/pelvis showed Gallbladder wall thickening and right upper quadrant stranding concerning for acute cholecystitis LFT's are WNL (last checked 05/15) Will continue with ceftriaxone + metronidazole while inpatient, continue total course 10 days given no surgical intervention last dose 05/22/2023 Surgery consulted and recommended follow up in 2 week in outpatient clinic for consideration of cholecystectomy in outpatient setting (2) Chronic deep vein thrombosis (DVT): Plan: Previously on Elqiuis and Coumadin but these had to be discontinued due to complications Was then on Xarelto but had to be discontinued due to renal function Dr. Fredrick joseph, was consulted during last admission in December, recommended 81 mg aspirin daily Patient concerned about full dose Eliquis but amenable to prophylaxis dosing which given her borderline age and renal function , will switch to Eliquis 2.5 twice daily (3) Pedal edema: Plan: Improved with one dose of Lasix [05/16] to help with IV fluids given prior in admission. She reports no longer an issue at this time. (4) Headache: Plan: Improving with acetaminophen and K-pad Continue Flonase (5) Interstitial lung disease: Plan: -Stable on RA -Incentive spirometry and prn albuterol (6) Hypothyroidism (acquired): Plan: -Continue levothyroxine (7) GERD (gastroesophageal reflux disease): Plan: -Continue PPI (8) HTN (hypertension): Plan: -Stable -Conitnue metoprolol (9) CKD (chronic kidney disease), stage IV: Plan: -Currently stable - (10) Tremor: Plan: MIxed resting and action tremor Appreciate neurology consult - did increase Sinemet to QID dosing (11) Anemia: Plan: -Stable -Continue B12 Plan VTE Prophylaxis - Eliquis Diet - low fiber, low fat pt did have toenail trimmed by myself after verbal permission due to poking nails to neighboring toes rehab suggested by PT/OT subacute rehab will be undertake search for subacute Admission and Anticipated Discharge Date Admission Date: May 10, 2023 Subjective neurology did evaluate the patient on 05/20 and feels the patient is stable with her tremor. [facility] due to performance status and not needing medical oversight. Likely patient will benefit from SNF for subacute rehab attempted to reach family on 05/21 mailbox was full a voicemail to be left Physical Exam Physical Exam: awake and alert a bit of tremor mostly with intention because of some other parkinsonian features as commented by neurology continues on carbidopa levodopa abdomen is NABS soft and nontender Results & Data Results & Data Vital Signs (Past 12 Hours) Vital Signs Temp Pulse Resp BP BP Pulse Ox O2 Del Method 05/22/23 09:11 72 18 103/67 96 Room Air 05/22/23 08:00 Room Air 05/22/23 07:54 98.4 F 96 H 16 165/68 H 90 Room Air PG Care Time/CCT Total # of Minutes Spent Total Time Spent with Patient: Total time spent is greater than 50% in coordination of care (as documented) at patient's floor/unit and/or counseling patient: Coding Level of Care Code 10949 SUB INP/OBS CARE 2/35MIN Diagnoses Acute cholecystitis K81.0 Chronic deep vein thrombosis (DVT) I82.509 Pedal edema R60.0 Headache R51.9 Interstitial lung disease J84.9 Hypothyroidism (acquired) E03.9 GERD (gastroesophageal reflux disease) K21.9 Essential hypertension I10 Hypertension type: essential hypertension CKD (chronic kidney disease), stage IV N18.4 Tremor R25.1 Anemia D64.9 (8) HTN (hypertension) Hypertension type: essential hypertension Qualified Code(s): I10 - Essential (primary) hypertension
[2023-05-22] MEDS: ATORVASTATIN 40 MG TAB PO SCH (20:17)
[2023-05-23] MEDS: ACETAMINOPHEN 325 MG TAB PO PRN ×2 (05:14→10:43)
[2023-05-23] MEDS: LEVOTHYROXINE SODIUM 88 MCG TABLET PO SCH (05:14)
[2023-05-23] MEDS: FLUTICASONE PROPIONATE NA SPR 16 GM BTL NAE SCH (08:04)
[2023-05-23] MEDS: CARBIDOPA/LEVODOP 10/100MG TAB PO SCH ×2 (08:05→12:17)
[2023-05-23] MEDS: PANTOprazole 40 MG TAB PO SCH (08:06)
[2023-05-23] MEDS: ADVANCED PROBIOTIC 1250 MG CAPSULE PO SCH (08:06)
[2023-05-23] MEDS: APIXABAN 2.5 MG TAB PO SCH (08:06)
[2023-05-23] MEDS: ASPIRIN 81 MG ECTAB PO SCH (08:07)
[2023-05-23] MEDS: METOPROLOL SUCC 50MG EXT REL TAB PO SCH (08:07)
[2023-05-23] MEDS ORDERED: PNEUMOCOCCAL VACCINE (PCV20) 20-VAL CONJ-DIP CRM/PF 0.5 ML SYR IM ONE (12:30)
--- NOTE | 2023-05-23 13:32 | Discharge Summary ---
Date of Service May 23, 2023 Admission HPI Per Admitting Provider Elyse is an 78 year old female with a PMH significant for reactive airway disease, DVT left lower extremity (currently on aspirin therapy), thoracic compression fractures, hypothyroidism, GERD, hypertension, CKD stage IV, follicular lymphoma, secondary hyperparathyroidism of renal origin, and Parkinsonism who presented to the [facility] ED on 05/10 with a chief complaint of RUQ abdominal pain. She remained stable while in the ED. Labs were significant for a mag of 1.3. CT of the abd/pelvis wo con was read as "Gallbladder wall thickening and right upper quadrant stranding, clinical correlation for acute cholecystitis is recommended.". The ED staff spoke with General surgery who is comfortable with keeping the patient at our facility. Prior to admission she was given a dose of Cefoxitin, 1gm IV Mag/Sulfate, 1L NSS, and 0.5 mg IV dilaudid. At the time of the exam the patient was sitting in bed in no acute distress. She states that she started to develop RUQ abdominal pain approximately 3 days ago. She denies any radiation of the pain and describes it as a dull/aching pain. It was initially an 8/10 on arrival but is currently controlled after receiving dilaudid. She was only using tylenol for pain at home. She explains that she was taken off Xarelto and placed on aspirin for her Hx of DVT approximately 3-4 months ago. Per chart review, she was taken off Xarelto during her last admission to [facility] in December due to her renal function. The hospitalist team consulted Dr. Alcala who did not recommend Elqiuis due to previous bleeding issues and did not recommend Warfarin due to significant liable INR on Warfarin in the past. After further discussions Dr. Alcala recommended 81 mg aspirin daily. The patient has been taking her medications as prescribed. She denies recent fever, chills, chest pain, palpitations, SOB, cough, nausea/vomiting, dysuria, diarrhea, melena, and recent trauma. She did have a soft BM this am and is still passing gas today. We discussed code status, she wishes to be a FUll code and for her dauughter to make medical decisions for her if she cannot make decisions herself. Please refer to Dr. Perry's attestation for any changes to the treatment plan Principal Diagnosis acute cholecystitis Discharge Exam General: In no acute distress, stated age, well-nourished, non-toxic appearing HEENT: Normocephalic, atraumatic, no pain when palpating sinuses, Chest/Pulm: minimal wheezing Cardiac: RRR, no murmurs noted Abdomen: soft, non tender, Musculoskeletal: Symmetrical and without signs of acute trauma, upper and lower extremities with full ROM, no atrophy, spasticity, or flaccidity Extremities: Radial, dorsalis pedis Neuro: Alert and oriented to person, place, month, year, and president, no focal defects, baseline tremor noted Psych: No acute distress, calm and cooperative during the exam Discharge Data Allergies Allergy/AdvReac Type Severity Reaction Status Date / Time nitrofurantoin Allergy Intermediate HIVES,ITCHI Verified 04/23/23 10:47 NG azithromycin [From Zithromax] Allergy HIVES Verified 04/23/23 10:47 tramadol AdvReac Mild nausea Verified 04/23/23 10:47 Consultations 05/10/23 15:09 Consult General Surgery Routine 05/10/23 15:23 ED Decision to Admit Stat 05/18/23 15:54 Consult Neurology Routine Ordered Studies 05/10/23 12:11 CT abd pelvis wo con Stat 05/10/23 16:18 US venous doppler LE Urgent Hospital Course (1) Acute cholecystitis: Presented to the ED with 3 days of progressive RUQ pain CT of the abd/pelvis showed Gallbladder wall thickening and right upper quadrant stranding concerning for acute cholecystitis LFT's are WNL (last checked 05/15) Will continue with ceftriaxone + metronidazole while inpatient, continue total course 10 days given no surgical intervention last dose 05/22/2023 Surgery consulted and recommended follow up in 2 week in outpatient clinic for consideration of cholecystectomy in outpatient setting (2) Chronic deep vein thrombosis (DVT): Previously on Elqiuis and Coumadin but these had to be discontinued due to complications Was then on Xarelto but had to be discontinued due to renal function Dr. Alcala follows, was consulted during last admission in December, recommended 81 mg aspirin daily Patient concerned about full dose Eliquis but amenable to prophylaxis dosing which given her borderline age and renal function , will switch to Eliquis 2.5 twice daily (3) Pedal edema: Improved with one dose of Lasix [05/16] to help with IV fluids given prior in admission. She reports no longer an issue at this time. (4) Headache: Improving with acetaminophen and K-pad Continue Flonase (5) Interstitial lung disease: -Stable on RA -Incentive spirometry and prn albuterol (6) Hypothyroidism (acquired): -Continue levothyroxine (7) GERD (gastroesophageal reflux disease): -Continue PPI (8) HTN (hypertension): -Stable -Conitnue metoprolol (9) CKD (chronic kidney disease), stage IV: -Currently stable - (10) Tremor: MIxed resting and action tremor Appreciate neurology consult - did increase Sinemet to QID dosing (11) Anemia: -Stable -Continue B12 Total Time Total Time Spent Total Time Spent (In Minutes): 32 Discharge Plan Discharge Items Patient Disposition: Home - Self-Care Reason For Visit: ACUTE CHOLECYSTITIS Discharge Diagnosis: acute cholecystitis Activity: Resume your previous activity Non-emergency contact: Primary Care Provider Call non-emergency contact if: you have any medication questions Follow-up/Referrals: Katarina Peters DO [Primary Care Provider] - 05/22/23 10:15 am Diet: Low Fiber and Low Fat Addtl Attending Provider Instructions: please followup AntiCoagulation clinic with Dr. Alcala as you are now on ELIQUIS Surgery consulted and recommended follow up in 1-2 weeks in outpatient clinic for consideration of cholecystectomy in outpatient setting ([facility]) Followup with PCP in 1-2 weeks. Pending Studies at Discharge: No Stand-Alone Forms: My [facility] Splice, Smoking Cessation Medications and DC Order Prescriptions: New carbidopa-levodopa 10-100 mg Tablet 1.5 tab PO QID@0800,1200,1600,1999 30 Days Qty: 180 0RF Eliquis 2.5 mg Tablet 2.5 mg PO BID Qty: 60 0RF fluticasone propionate 50 mcg/actuation [place],Suspension 2 spray [place] DAILY Qty: 16 0RF Rx Instructions: use for only one month. Advanced Probiotic 625 mg (10 billion cell) Capsule 2 cap PO DAILY Qty: 14 0RF Continued calcium carbonate [Calcium 500] 500 mg calcium (1,250 mg) tablet,chewable 500 mg PO QAM pyridoxine (vitamin B6) 100 mg tablet 100 mg PO Q OTHER DAY aspirin 81 mg tablet,delayed release (DR/EC) 81 mg PO QAM denosumab 60 mg/mL syringe 60 mg SQ Q6MO dexlansoprazole [Dexilant] 60 mg capsule,biphase delayed releas 60 mg PO QAM Qty: 90 3RF atorvastatin 80 mg tablet 80 mg PO HS Qty: 90 3RF metoprolol succinate 50 mg tablet extended release 24 hr 50 mg PO QAM Qty: 90 3RF Rx Instructions: TAKE 1 TABLET BY MOUTH ONCE DAILY valacyclovir 500 mg tablet 500 mg PO DAILY PRN (Reason: breakout) Qty: 14 0RF albuterol sulfate [Ventolin HFA] 90 mcg/actuation HFA aerosol inhaler 2 puff inhalation QID PRN (Reason: shortness of breath or wheezing) Qty: 6.7 1RF fluticasone propionate 50 mcg/actuation spray,suspension 2 spray INTNAS QAM PRN (Reason: Allergy Symptoms) Qty: 16 3RF (DME) lancets [OneTouch Delica Lancets] 33 gauge misc See Rx Instructions .ROUTE .MEDSUPPLY Qty: 100 Rx Instructions: TEST ONCE DAILY. says she uses weekly (DME) OneTouch Ultra Blue Test Strip Strip See Rx Instructions .ROUTE .MEDSUPPLY Qty: 10 Rx Instructions: TEST ONCE DAILY. does PRN levothyroxine 88 mcg tablet 88 mcg PO DAILYBB albuterol sulfate 2.5 mg /3 mL (0.083 %) solution for nebulization 2.5 mg inhalation Q8H PRN (Reason: Shortness Of Breath Or Wheezing) cyanocobalamin (vitamin B-12) 500 mcg tablet 500 mcg PO QAM hydrocortisone acetate [Anusol-HC] 25 mg suppository 25 mg ID BID PRN (Reason: Hemorrhoids) Discontinued carbidopa-levodopa 10-100 mg tablet 1.5 tab PO TID Discharge Orders: Discharge Order (Routine); Ordered 05/23/23 Ordered By: Jax Thomas Admission Data Admit Date/Time: 05/10/23 15:32 Attending Provider: Jax Thomas Admit Provider: Isidro Perry Primary Care Provider: Katarina Peters Other Providers: [facility],Home Healthcare; Kavita Monsalve; Isidro Perry; Reynold Paulson; [facility],Health; [place],[facility], [place]; [facility] Other Interventions: Discharge Summary Assessment (RN) Last Done: 05/23/23 13:35 Coding Level of Care Code 19481 INP/OBS DISCH >30 MIN Diagnoses Acute cholecystitis K81.0 Chronic deep vein thrombosis (DVT) I82.509 Pedal edema R60.0 Headache R51.9 Interstitial lung disease J84.9 Hypothyroidism (acquired) E03.9 GERD (gastroesophageal reflux disease) K21.9 Essential hypertension I10 Hypertension type: essential hypertension CKD (chronic kidney disease), stage IV N18.4 Tremor R25.1 Anemia D64.9
== END 2023-05-23 14:11 | DRG 445 ==
LOC: ED 11:38 → 2W 15:32 → SUATTDRO 15:32 → 2W 17:55 → 3W 05-16 16:00

== ENCOUNTER 2023-07-22 11:07 | Inpatient (IN) ==
[2023-07-22] MEDS ORDERED: SODIUM CHLORIDE 0.9% 1,000 ML IV ONE ×2 (11:46→13:31)
--- NOTE | 2023-07-22 11:52 | Emergency Department Note ---
Impression & Plan Dizziness, Elevated troponin, Atrial tachycardia ED Provider Note NAME: SOFYA COX AGE: 78 SEX: F : 1945 ARRIVES VIA: Walk-In INFORMANT: Patient ED PROVIDER(S): Gee Eaton DO CHIEF COMPLAINT: dizzy unable to walk HPI: Patient is an 78-year-old female who presents the ER with her opto mechanical engineer at bedside. Gas Dispenser provides additional history that patient has been having trouble walking for several weeks but today cannot walk as she is very unsteady/dizzy today. She has also been more confused over the past several days. Patient denies any change or loss of vision but does admit to a mild headache. No chest pain or shortness of breath. She notes the dizziness resolves when she lays flat but when she is up moving around or doing anything it is significantly worse. She denies any focal weakness in arms or legs. No other exacerbating or remitting factors. ADDITIONAL HISTORY OBTAINED: Per HPI Chronic Medical/Social Conditions Affecting Care: Per HPI PAST MEDICAL HISTORY:See Below PAST SURGICAL HISTORY:See Below FAMILY HISTORY:See Below SOCIAL HISTORY:See Below HOME MEDICATIONS:See Below ALLERGIES:See Below VITALS:See Below PHYSICAL EXAMINATION: GENERAL: Sitting up in bed, alert, well appearing, well nourished, no distress, non-toxic EYE EXAM: normal conjunctiva. PERRL and EOM's intact. OROPHARYNX: no exudate, no erythema, lips, buccal mucosa, and tongue normal and mucous membranes are moist NECK: supple, no nuchal rigidity, no adenopathy, non-tender LUNGS: Clear to auscultation. Normal chest wall mechanics HEART: no murmurs, S1 normal and S2 normal ABDOMEN: abdomen soft, non-tender, normo-active bowel sounds, no masses, no rebound or guarding. BACK: Back is symmetrical on inspection and there is no deformity, no midline tenderness, no CVA tenderness. SKIN: no rashes and no bruising UPPER EXTREMITIES: upper extremities are grossly normal. LOWER EXTREMITIES: No pitting edema. NEURO EXAM: Normal sensorium-oriented to person, place and year, cranial nerves II-XII intact, normal speech, no weakness of arms, no weakness of legs. No drift. Finger to nose intact. Gross sensation intact. MEDICAL DECISION MAKING: Patient is an 78-year-old female who presents to the ER with a past medical history PAD, diabetes, hypertension, and CKD for dizziness with movement. IV was established blood work was obtained. Labs show no significant leukocytosis or anemia. BMP along with LFTs was unremarkable. Troponin was positive at 80. CTA of the head and neck was negative. Patient was given IV fluids and updated at bedside. On the monitor she was intermittently dropping a beat and there is intermittent pauses. Heart rate on the monitor is also double counting as opposed to the EKG. Heart rate consistently is in the 70s to 60s on the EKG while the monitor was reading 120s to 140s as it is double counting. Patient was given IV fluids. Monitored closely. Discussed with Dr. Perry for further evaluation management treatment. Consults/Care Managements Discussions: Per [facility] Triage Nursing notes reviewed. Limited review of prior medical records performed Vital Signs: reviewed and remarkable for tachy Differential diagnosis: Differential diagnosis includes etiologies such as benign positional vertigo, dehydration, hypovolemia, anemia, tumor, infection, hypoglycemia, electrolyte abnormalities, cardiac sources, intracerebral event, toxicologic, neurological, as well as others were entertained. ER treatment provided: See below Diagnostics interpreted by me include EKG and cardiac monitoring as listed below: -Cardiac Monitoring: An order was placed for continuous cardiac monitoring. The monitor shows a rate of 75 with sinus rhythm. -ECG: Sinus rhythm rate 79 Normal axis No PVCs QTc 451 Sinus rhythm rate of 63 Normal axis No PVCs QTc 464 -Laboratory studies:Interpreted by me as stated above in MDM and shown below. Imaging studies: Xrays: As interpreted by me: Portable AP upright 1 view of the chest shows no focal CTs show: CT angios of the head and neck were negative Procedures:none Critical Care: None Past Med/Surg History Medical History (Updated 07/22/23 @ 14:20 by Gee Eaton DO) Chronic deep vein thrombosis (DVT) Prediabetes Iron deficiency anemia Secondary hyperparathyroidism of renal origin Leg length discrepancy Acute kidney injury Ankle edema, bilateral Arthritis Asymptomatic menopausal state Blood glucose abnormal Cardiomyopathy Cholelithiasis Chronic GERD Chronic fatigue syndrome Chronic laryngitis Chronic pharyngitis Cigarette smoker motivated to quit Cough 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 Deep vein thrombosis of distal lower extremity Depression Dermatitis, eczematoid Diabetes mellitus (11/29/12) Dizziness Dyspnea on exertion Dysuria Gastropathy Hearing loss Hematuria, microscopic Herpes simplex Hoarseness Hyperglycemia Hypothyroidism Interstitial lung disease Ischemic colitis Laryngitis Lightheadedness Low back pain Lumbar spinal stenosis Muscle spasm NSTEMI (non-ST elevated myocardial infarction) Nasal dryness Nicotine dependence 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 Recurrent UTI Rib pain on right side SNHL (sensorineural hearing loss) Secondary hyperparathyroidism (of renal origin) Shortness of breath Solitary pulmonary nodule Subsequent non-ST elevation (NSTEMI) myocardial infarction Takotsubo syndrome Tendinitis of left rotator cuff Type 2 diabetes mellitus without complication Vertigo Stroke-like symptoms GERD (gastroesophageal reflux disease) Chronic kidney disease Hypothyroidism (acquired) Pneumonia Constipation GI bleed Chronic deep vein thrombosis of left lower extremity Sinusitis Hematuria Kidney stones Hyperlipidemia DVT (deep venous thrombosis) Osteopenia (11/29/12) Thyroid disease Compression fracture of lumbar vertebra Surgical History History of tubal ligation History of D&C History of Hx of colonoscopy Family History Mother Leukemia Hypertension Father Myocardial infarction Diabetes Other Family history non-contributory Denies family history of Ovarian cancer Prostate cancer Breast cancer Lung cancer Social History Smoking Status: Former smoker Tobacco Type: Cigarettes Age Started Using Tobacco: 17; Age Quit Using Tobacco: 73; packs per day: 1; Cigarettes Per Day: At 1st cigarette smoking with sparse, but at the end she was smoking 1ppd; Second Hand Exposure: No; Do You Dip or Chew Tobacco: No; Hx Alcohol Use: No Hx Substance Use: Yes Last Used Substance: Hours (ago) Preferred Language: Libyan Communication Ability: Effective Visual Impairment: No Limitations Hearing Ability: Use of Hearing Aid Shirt Sewer Required: No Beliefs That Will Affect Care: None marital status: Current Living Situation: Alone and Personal Care Facility Current Living Situation Comment: Has a caregiver current occupational status: retired 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 Safe at Home: Yes Childhood Exposure to Second-Hand Smoke: Yes caffeine: No Dental Care, Regularly: No Physical Activity Frequency: Does not Exercise Seatbelt Use: always Sunscreen Use: No Assistive Devices: Walker Allergies Allergies Allergy/AdvReac Type Severity Reaction Status Date / Time nitrofurantoin Allergy Intermediate HIVES,ITCHI Verified 07/08/23 10:47 NG azithromycin [From Zithromax] Allergy HIVES Verified 07/08/23 10:47 tramadol AdvReac Mild nausea Verified 07/08/23 10:47 Home Meds Home Medications Medication Instructions Recorded Confirmed aspirin 81 mg tablet,delayed 81 mg PO QAM 06/06/18 07/08/23 release denosumab 60 mg/mL subcutaneous 60 mg subcut Q6MO 02/25/19 07/08/23 syringe lancets 33 gauge (ReCellularTouch Delica #100 ea 07/13/20 07/08/23 Lancets) blood sugar diagnostic (ReCellularTouch #10 ea 12/08/21 06/13/23 Ultra Blue Test Strip) calcium carbonate 500 mg calcium 500 mg PO QAM 06/29/22 07/08/23 (1,250 mg) chewable tablet (Calcium 500) albuterol sulfate 2.5 mg/3 mL 2.5 mg inhalation Q8H PRN 01/09/23 07/08/23 (0.083 %) solution for nebulization Shortness Of Breath Or Wheezing hydrocortisone acetate 25 mg 25 mg DC BID PRN Hemorrhoids 01/09/23 07/08/23 rectal suppository (Anusol-HC) levothyroxine 88 mcg tablet 88 mcg PO DAILYBB 01/09/23 07/08/23 pyridoxine (vitamin B6) 100 mg 100 mg PO DAILY 06/07/23 07/08/23 tablet Previous Rx's Medication Instructions Recorded albuterol sulfate 90 mcg/actuation 2 puff inhalation QID PRN 03/05/22 aerosol inhaler (Ventolin HFA) shortness of breath or wheezing #6.7 grams dexlansoprazole 60 mg 60 mg PO QAM #90 caps 01/25/23 capsule,biphase delayed release (Dexilant) atorvastatin 80 mg tablet 80 mg PO HS #90 tabs 02/12/23 metoprolol succinate 50 mg 50 mg PO QAM #90 tabs 02/21/23 tablet,extended release 24 hr valacyclovir 500 mg tablet 500 mg PO DAILY PRN breakout #14 02/21/23 tabs fluticasone propionate 50 2 spray intranasal QAM PRN Allergy 03/01/23 mcg/actuation nasal Symptoms #16 grams spray,suspension L.acidop,casei,lactis,rham-B.lact,alana 2 cap PO DAILY #180 caps 06/04/23 625 mg (10 billion cell) capsule (Advanced Probiotic) apixaban 2.5 mg tablet (Eliquis) 2.5 mg PO BID #180 tabs 06/04/23 carbidopa 10 mg-levodopa 100 mg 2 tab PO QID@0800,1200,1600,2000 06/13/23 tablet 30 days #240 tabs amoxicillin 500 mg-potassium 1 tab PO BID #14 tabs 07/01/23 clavulanate 125 mg tablet (Augmentin) duloxetine 30 mg capsule,delayed 30 mg PO DAILY #90 caps 07/08/23 release (Cymbalta) Results & Data (ED) Vital Signs Vital Signs - 24 hr 07/22/23 11:08 07/22/23 11:14 07/22/23 12:54 Temperature 36.1 C L Temperature Source Temporal Artery Scan Pulse Rate 85 Pulse Rate [Apical] 133 H Respiratory Rate 16 20 Respiratory Effort / Characteristics Non-Labored Spontaneous Non-Labored Spontaneous Respiratory Depth Normal Normal Respiratory Pattern Regular Regular Blood Pressure 97/57 L Blood Pressure [Left Arm] 96/51 L Blood Pressure Mean 70 Blood Pressure Mean [Left Arm] 66 Blood Pressure Position [Left Arm] Lying Pulse Oximetry 94 100 Oxygen Delivery Method Nasal Cannula Room Air Nasal Cannula Oxygen Flow Rate 2 2 Sepsis Recent Fever Within 48 Hours No Sepsis New/Unexplained Change in Mental Status N/A Sepsis Action Taken by Nursing No Action Required 07/22/23 12:55 07/22/23 14:24 Temperature Temperature Source Pulse Rate 127 H Pulse Rate [Apical] 74 Respiratory Rate 20 18 Respiratory Effort / Characteristics Non-Labored Spontaneous Respiratory Depth Normal Respiratory Pattern Blood Pressure Blood Pressure [Left Arm] 114/56 L Blood Pressure Mean Blood Pressure Mean [Left Arm] 75 Blood Pressure Position [Left Arm] Lying Pulse Oximetry 100 100 Oxygen Delivery Method Nasal Cannula Nasal Cannula Oxygen Flow Rate 2 2 Sepsis Recent Fever Within 48 Hours Sepsis New/Unexplained Change in Mental Status Sepsis Action Taken by Nursing Laboratory Data 07/22/23 11:54 07/22/23 13:15 Lab Results 07/22/23 07/22/23 07/22/23 Range/Units 11:54 11:56 13:15 WBC 8.98 (4.8-10.8) K/ul RBC 4.23 (4.20-5.40) M/uL Hgb 13.7 (12.0-16.0) g/dl POC Hgb 14.6 (12.0-16.0) g/dl Hct 42.8 (37.0-47.0) % POC Hct 43 (37-47) % MCV 101.2 H (80.0-100.0) fL MCH 32.4 (25.0-34.0) pg MCHC 32.0 (32.0-36.0) g/dL RDW Std Deviation 54.4 H (36.4-46.3) fL RDW Coeff of Damien 14.5 (11.5-14.5) % Plt Count 374 (130-400) K/uL MPV 10.0 (9.4-12.4) fL Immature Gran % (Auto) 0.4 % Neut % (Auto) 70.7 % Lymph % (Auto) 23.2 % Stewart % (Auto) 4.7 % Eos % (Auto) 0.7 % Baso % (Auto) 0.3 % Neut # (Auto) 6.35 (1.40-6.50) K/uL Lymph # (Auto) 2.08 (1.20-3.40) K/uL Stewart # (Auto) 0.42 (0.11-0.59) K/uL Eos # (Auto) 0.06 (0.00-0.50) K/uL Baso # (Auto) 0.03 (0.00-0.20) K/uL Immature Gran # (Auto) 0.04 (0.01-0.20) K/uL POC Sodium 134 L (135-144) mmol/L Sodium 133 L (136-145) mmol/L POC Potassium 4.3 (3.3-5.0) mmol/L Potassium TNP 4.4 POC Chloride 97 L (101-112) mmol/L Chloride 97 L (98-107) mmol/L Carbon Dioxide 24 (21-32) mmol/L POC Total CO2 28 (24-31) mmol/L Anion Gap 12 H (3-11) POC Anion Gap 15.0 L (16-25) mmol/L POC BUN 25 H (7-18) mg/dl BUN 24 H (6-23) mg/dl Creatinine 1.55 H (0.6-1.2) mg/dl POC Creatinine 1.8 H (0.6-1.3) mg/dl Est Cr Clr Drug Dosing Not Reportable Est GFR ( Amer) 36.3 ml/min Est GFR (Non-Af Amer) 31.3 ml/min BUN/Creatinine Ratio 15.5 (10-20) Glucose 97 (70-99(Fasting)) mg/dl POC Glucose (other) 104 H (70-99) mg/dl Calcium 9.7 (8.6-10.3) mg/dl POC Ioniz Calcium [place] 1.11 L (1.12-1.32) mmol/l Total Bilirubin 0.4 (0.2-1.0) mg/dl AST TNP 28 ALT 5 L (7-52) U/L Alkaline Phosphatase 118 H (34-104) U/L Troponin I High Sens 78.1 H* (0-14) pg/ml Total Protein 7.8 (6.0-8.3) gm/dl Albumin 3.8 (3.4-5.0) gm/dl Globulin 4.0 (2.5-4.0) gm/dl Albumin/Globulin Ratio 1.0 (0.9-2) Administered Medications Discontinued Medications Sodium Chloride (Nss) 1,000 mls @ 999 mls/hr IV .Q1H1M ONE Stop: 07/22/23 12:46 Last Admin: 07/22/23 12:01 Dose: 999 mls/hr Documented By: MG Ioversol (Optiray 320 125ml) 118 ml IV ONCE ONE Stop: 07/22/23 12:52 Last Admin: 07/22/23 12:52 Dose: 118 ml Documented By: KSF Imaging Data Radiologist's Impression: Head CTA 07/22/23 11:46 CT angio head wo/w CLINICAL HISTORY: 78 years-old Female with ? cva. Acute strokelike symptoms COMPARISON STUDY: CTA neck of same day, head CT 02/20/2022 TECHNIQUE: Unenhanced axial CT scan of the brain is performed. Subsequently, following the IV administration of 118 cc of Optiray, CT angiogram of the brain was performed from the skull base to the vertex. Images are reviewed in the axial, sagittal, and coronal planes. 3-D MIPS images are created and assessed. IV contrast was administered without complication. All measurements were obtained according to NASCET criteria. A dose lowering technique was utilized adhering to the principles of ALARA. FINDINGS: CT BRAIN: There is no acute intracranial hemorrhage, midline shift, hydrocephalus, intracranial mass, territorial ischemia or abnormal extra-axial collections. No abnormal intra-axial or extra-axial enhancement. Involutional changes with chronic microvascular ischemic disease. Right mastoid fusion. The left mastoid air cells and paranasal sinuses are generally clear. Prior bilateral lens repair. Surgical clips are noted anterior and inferior to the right ear. No calvarial fracture. Paranasal sinuses are clear. CT ANGIOGRAM OF THE BRAIN: The imaged bilateral internal carotid arteries are patent. The bilateral anterior and middle cerebral arteries are also patent. The vertebrobasilar system and posterior cerebral arteries are widely patent. There is no aneurysm, high-grade stenosis, or proximal branch occlusion identified. Dural sinuses appear patent. Opacified venous collaterals are noted within the right neck with right internal jugular vein narrowing seen on image 1 series 5 which is likely chronic. IMPRESSION: 1. No acute intracranial abnormality. 2. Unremarkable CTA of the head. ACT 112: Negative or not required by law. The above report was generated using voice recognition software. It may contain grammatical, syntax or spelling errors. Electronically signed by: Josh Kimbrough M.D. 07/22/2023 1:16 PM Neck CTA 07/22/23 11:46 CT ANGIOGRAM OF THE NECK CLINICAL HISTORY: Strokelike symptoms. COMPARISON STUDY: CT angiogram of the neck dated 12/06/2018. TECHNIQUE: Following the IV administration of 118 of Optiray 320, CT angiogram of the neck was performed from the aortic arch to the skull base. Images are reviewed in the axial, sagittal, and coronal planes. 3-D MIPS images are created and assessed. IV contrast was administered without complication. All measurements were calculated based on NASCET criteria. A dose lowering technique was utilized adhering to the principles of ALARA. CT DOSE: 935.37 mGy.cm FINDINGS: Thoracic aorta: There is atherosclerotic calcification of the thoracic aorta. Visualized portions of the thoracic aorta are normal in caliber. The aortic arch demonstrates standard 3-vessel anatomy. Right carotid arterial system: The right common carotid artery is widely patent, as are the right internal and external carotid arteries. Advanced atherosclerotic plaque is seen in the carotid bulb and proximal right internal carotid artery. Left carotid arterial system: The left common carotid artery is widely patent. Advanced atherosclerotic plaque is seen in the carotid bulb and the left internal carotid artery. This causes less than 50% stenosis of the proximal left internal carotid artery. The left internal and external carotid arteries are otherwise widely patent. Vertebral arteries: Vertebral arteries are widely patent bilaterally noting left-sided prominence. Subclavian arteries: Patent bilaterally. Intracranial vasculature: The visualized intracranial vessels at the skull base are patent. Jugular veins: Widely patent bilaterally. Brain parenchyma: The visualized brain parenchyma the skull base is within normal limits. Upper chest: Emphysema is noted. Calcified granulomas and parenchymal scarring are noted in the upper lobes. The main pulmonary arteries are dilated suggesting pulmonary artery hypertension. Secretions are noted in the left mainstem bronchus. Soft tissues: The visualized pharyngeal soft tissues are normal in appearance noting angiographic phase technique. Surgical clips are noted in the right neck. The oropharyngeal airway appears widely patent. The right parotid gland is surgically absent. The left parotid gland and the submandibular glands are normal in appearance. The thyroid gland is more caudal. No cervical lymphadenopathy is seen. Skeletal structures: The skeletal structures are osteopenic. The visualized calvarium at the skull base appears intact. The imaged cervical spine is maintained noting multilevel spondylosis. No lytic or blastic lesion is seen. Sinuses and mastoids: The visualized paranasal sinuses are clear. There is a right mastoid effusion. The left mastoid air cells are well-pneumatized. IMPRESSION: 1. Unremarkable CT angiogram of the neck. 2. Emphysema. 3. Additional findings as above. ACT 112: Negative or not required by law. Electronically signed by: Salo Morales M.D. 07/22/2023 1:13 PM Chest X-Ray 07/22/23 14:20 XR chest 1V portable HISTORY: 78 years-old Female dizzy acute dizziness COMPARISON: 05/14/2023 TECHNIQUE: AP view of the chest FINDINGS: Cardiac silhouette is enlarged. The lungs are hypoinflated. Emphysema with chronic interstitial coarsening. No pneumothorax, pleural effusion or airspace consolidation. The bones appear grossly intact. IMPRESSION: Emphysema with chronic interstitial coarsening. ACT 112: Negative or not required by law. The above report was generated using voice recognition software. It may contain grammatical, syntax or spelling errors. Electronically signed by: Josh Kimbrough M.D. 07/22/2023 2:35 PM Discharge Plan Visit Data Chief Complaint: Dizziness Stated Complaint: HAVING TROUBLE WALKING BEEN DIZZY ED Provider: Gee Eaton Discharge Problem: Dizziness, Elevated troponin, Atrial tachycardia Forms Stand Alone Forms: My [facility] Prescriptions Prescriptions: No Action calcium carbonate [Calcium 500] 500 mg calcium (1,250 mg) tablet,chewable 500 mg PO QAM pyridoxine (vitamin B6) 100 mg tablet 100 mg PO DAILY aspirin 81 mg tablet,delayed release (DR/EC) 81 mg PO QAM denosumab 60 mg/mL syringe 60 mg SQ Q6MO dexlansoprazole [Dexilant] 60 mg capsule,biphase delayed releas 60 mg PO QAM Qty: 90 3RF atorvastatin 80 mg tablet 80 mg PO HS Qty: 90 3RF metoprolol succinate 50 mg tablet extended release 24 hr 50 mg PO QAM Qty: 90 3RF Rx Instructions: TAKE 1 TABLET BY MOUTH ONCE DAILY valacyclovir 500 mg tablet 500 mg PO DAILY PRN (Reason: breakout) Qty: 14 0RF amoxicillin-pot clavulanate [Augmentin] 500-125 mg tablet 1 tab PO BID Qty: 14 0RF albuterol sulfate [Ventolin HFA] 90 mcg/actuation HFA aerosol inhaler 2 puff inhalation QID PRN (Reason: shortness of breath or wheezing) Qty: 6.7 1RF duloxetine [Cymbalta] 30 mg capsule,delayed release(DR/EC) 30 mg PO DAILY Qty: 90 0RF carbidopa-levodopa 10-100 mg tablet 2 tab PO QID@0800,1200,1600,2000 30 Days Qty: 240 5RF fluticasone propionate 50 mcg/actuation spray,suspension 2 spray INTNAS QAM PRN (Reason: Allergy Symptoms) Qty: 16 3RF (DME) lancets [OneTouch Delica Lancets] 33 gauge misc See Rx Instructions .ROUTE .MEDSUPPLY Qty: 100 Rx Instructions: TEST ONCE DAILY. says she uses weekly (DME) OneTouch Ultra Blue Test Strip Strip See Rx Instructions .ROUTE .MEDSUPPLY Qty: 10 Rx Instructions: TEST ONCE DAILY. does PRN Eliquis 2.5 mg tablet 2.5 mg PO BID Qty: 180 0RF Advanced Probiotic 625 mg (10 billion cell) capsule 2 cap PO DAILY Qty: 180 0RF levothyroxine 88 mcg tablet 88 mcg PO DAILYBB albuterol sulfate 2.5 mg /3 mL (0.083 %) solution for nebulization 2.5 mg inhalation Q8H PRN (Reason: Shortness Of Breath Or Wheezing) hydrocortisone acetate [Anusol-HC] 25 mg suppository 25 mg DC BID PRN (Reason: Hemorrhoids) Referrals Referrals: Katarina Peters DO [Primary Care Provider] -
[2023-07-22 12:09] LABS: iSTAT Creatinine 1.8 mg/dl (0.6-1.3); iSTAT Hemoglobin 14.6 g/dl (12.0-16.0); iSTAT Ionized Calcium 1.11 mmol/l (1.12-1.32); iSTAT Potassium 4.3 mmol/L (3.3-5.0)
[2023-07-22 12:19] LABS: Basophils # (auto) 0.03 K/uL (0.00-0.20); Basophils % (auto) 0.3 %; Eosinophils # (auto) 0.06 K/uL (0.00-0.50); Eosinophils % (auto) 0.7 %; Hematocrit (blood only) 42.8 % (37.0-47.0); Hemoglobin 13.7 g/dl (12.0-16.0); Immature Granulocytes # (auto) 0.04 K/uL (0.01-0.20); Immature Granulocytes % (auto) 0.4 %; Lymphocytes # (auto) 2.08 K/uL (1.20-3.40); Lymphocytes % (auto) 23.2 %; Mean Corpuscular Hemoglobin 32.4 pg (25.0-34.0); Mean Corpuscular Volume 101.2 fL (80.0-100.0); Monocytes # (auto) 0.42 K/uL (0.11-0.59); Monocytes % (auto) 4.7 %; Neutrophils # (auto) 6.35 K/uL (1.40-6.50); Neutrophils % (auto) 70.7 %; Platelet Count 374 K/uL (130-400); RDW Coefficient of Variation 14.5 % (11.5-14.5); RDW Standard Deviation 54.4 fL (36.4-46.3); Red Blood Count 4.23 M/uL (4.20-5.40); White Blood Count 8.98 K/ul (4.8-10.8)
[2023-07-22 12:37] LABS: Albumin Level 3.8 gm/dl (3.4-5.0); Anion Gap 12 (3-11); Bilirubin,Total 0.4 mg/dl (0.2-1.0); Calcium 9.7 mg/dl (8.6-10.3); Carbon Dioxide 24 mmol/L (21-32); Chloride 97 mmol/L (98-107); Sodium 133 mmol/L (136-145)
[2023-07-22 12:38] LABS: Alanine Aminotransferase 5 U/L (7-52); Alkaline Phosphatase 118 U/L (34-104); BUN Creatinine Ratio 15.5 (10-20); Blood Urea Nitrogen 24 mg/dl (6-23); Est GFR (African American) 36.3 ml/min; Est GFR (Non-African American) 31.3 ml/min; Glucose 97 mg/dl (70-99(Fasting)); Total Protein 7.8 gm/dl (6.0-8.3)
[2023-07-22 12:44] LABS: Troponin I High Sensitivity 78.1 pg/ml (0-14)
[2023-07-22] MEDS ORDERED: OPTIRAY 320 125ml IV ONE (12:51)
--- NOTE | 2023-07-22 13:14 | CT Scan Report ---
CT ANGIOGRAM OF THE NECK CLINICAL HISTORY: Strokelike symptoms. COMPARISON STUDY: CT angiogram of the neck dated 12/06/2018. TECHNIQUE: Following the IV administration of 118 of Optiray 320, CT angiogram of the neck was perfor med from the aortic arch to the skull base. Images are reviewed in the axial, sagittal, and coronal p lanes. 3-D MIPS images are created and assessed. IV contrast was administered without complication. A ll measurements were calculated based on NASCET criteria. A dose lowering technique was utilized adh ering to the principles of ALARA. CT DOSE: 935.37 mGy.cm FINDINGS: Thoracic aorta: There is atherosclerotic calcification of the thoracic aorta. Visualized portions of the thoracic aorta are normal in caliber. The aortic arch demonstrates standard 3-vessel anatomy. Right carotid arterial system: The right common carotid artery is widely patent, as are the right int ernal and external carotid arteries. Advanced atherosclerotic plaque is seen in the carotid bulb and proximal right internal carotid artery. Left carotid arterial system: The left common carotid artery is widely patent. Advanced atherosclerot ic plaque is seen in the carotid bulb and the left internal carotid artery. This causes less than 50% stenosis of the proximal left internal carotid artery. The left internal and external carotid arteri es are otherwise widely patent. Vertebral arteries: Vertebral arteries are widely patent bilaterally noting left-sided prominence. Subclavian arteries: Patent bilaterally. Intracranial vasculature: The visualized intracranial vessels at the skull base are patent. Jugular veins: Widely patent bilaterally. Brain parenchyma: The visualized brain parenchyma the skull base is within normal limits. Upper chest: Emphysema is noted. Calcified granulomas and parenchymal scarring are noted in the upper lobes. The main pulmonary arteries are dilated suggesting pulmonary artery hypertension. Secretions are noted in the left mainstem bronchus. Soft tissues: The visualized pharyngeal soft tissues are normal in appearance noting angiographic pha se technique. Surgical clips are noted in the right neck. The oropharyngeal airway appears widely pat ent. The right parotid gland is surgically absent. The left parotid gland and the submandibular gland s are normal in appearance. The thyroid gland is more caudal. No cervical lymphadenopathy is seen. Skeletal structures: The skeletal structures are osteopenic. The visualized calvarium at the skull ba se appears intact. The imaged cervical spine is maintained noting multilevel spondylosis. No lytic or blastic lesion is seen. Sinuses and mastoids: The visualized paranasal sinuses are clear. There is a right mastoid effusion. The left mastoid air cells are well-pneumatized. IMPRESSION: 1. Unremarkable CT angiogram of the neck. 2. Emphysema. 3. Additional findings as above. ACT 112: Negative or not required by law. Electronically signed by: Salo Morales M.D. 07/22/2023 1:13 PM
--- NOTE | 2023-07-22 13:18 | CT Scan Report ---
CT angio head wo/w CLINICAL HISTORY: 78 years-old Female with ? cva. Acute strokelike symptoms COMPARISON STUDY: CTA neck of same day, head CT 02/20/2022 TECHNIQUE: Unenhanced axial CT scan of the brain is performed. Subsequently, following the IV adminis tration of 118 cc of Optiray, CT angiogram of the brain was performed from the skull base to the vert ex. Images are reviewed in the axial, sagittal, and coronal planes. 3-D MIPS images are created and a ssessed. IV contrast was administered without complication. All measurements were obtained according to NASCET criteria. A dose lowering technique was utilized adhering to the principles of ALARA. FINDINGS: CT BRAIN: There is no acute intracranial hemorrhage, midline shift, hydrocephalus, intracranial mass, territori al ischemia or abnormal extra-axial collections. No abnormal intra-axial or extra-axial enhancement. Involutional changes with chronic microvascular ischemic disease. Right mastoid fusion. The left mast oid air cells and paranasal sinuses are generally clear. Prior bilateral lens repair. Surgical clips are noted anterior and inferior to the right ear. No calvarial fracture. Paranasal sinuses are clear. CT ANGIOGRAM OF THE BRAIN: The imaged bilateral internal carotid arteries are patent. The bilateral anterior and middle cerebral arteries are also patent. The vertebrobasilar system and posterior cerebral arteries are widely strong nt. There is no aneurysm, high-grade stenosis, or proximal branch occlusion identified. Dural sinuses appear patent. Opacified venous collaterals are noted within the right neck with right internal jugu lar vein narrowing seen on image 1 series 5 which is likely chronic. IMPRESSION: 1. No acute intracranial abnormality. 2. Unremarkable CTA of the head. ACT 112: Negative or not required by law. The above report was generated using voice recognition software. It may contain grammatical, syntax o r spelling errors. Electronically signed by: Josh Kimbrough M.D. 07/22/2023 1:16 PM
[2023-07-22 13:59] LABS: Potassium 4.4 mmol/L (3.5-5.1)
--- NOTE | 2023-07-22 14:37 | XRay Report ---
XR chest 1V portable HISTORY: 78 years-old Female dizzy acute dizziness COMPARISON: 05/14/2023 TECHNIQUE: AP view of the chest FINDINGS: Cardiac silhouette is enlarged. The lungs are hypoinflated. Emphysema with chronic interstitial coars ening. No pneumothorax, pleural effusion or airspace consolidation. The bones appear grossly intact. IMPRESSION: Emphysema with chronic interstitial coarsening. ACT 112: Negative or not required by law. The above report was generated using voice recognition software. It may contain grammatical, syntax o r spelling errors. Electronically signed by: Josh Kimbrough M.D. 07/22/2023 2:35 PM
--- NOTE | 2023-07-22 14:49 | History & Physical Report ---
Date of Service July 22, 2023 Assessment & Plan (1) Second degree AV block, Mobitz type II: Plan: Intermittent Stop metoprolol Monitor on telemetry Consult cardiology (2) Stroke-like symptoms: Plan: Acute on chronic difficulty balancing. Significant worsening today. Brain MRI - pending results of this we will get full stroke workup Follow up UA if Brain MRI negative possibly infection causing acute on chronic worsening of symptoms although no specific urinary complaints and WBC normal (3) Elevated troponin: Plan: No chest pain or shortness of breath to suggest ACS, will continue to trend (4) Chronic deep vein thrombosis (DVT): Plan: Restart on Eliquis 2.5 mg p.o. BID pending brain MRI US venous doppler given off her usual Eliquis and bilateral leg pain worse than usual (5) Hypothyroidism (acquired): Plan: TSH WNL May 2023, no need to repeat Continue levothyroxine (6) GERD (gastroesophageal reflux disease): Plan: Switch dexlansoprazole to pantoprazole per hospital formulary (7) Osteoporosis: Plan: Noted, on denosumab as outpatient (8) Tremor: Plan: Under neurology with no definitive diagnosis of Parkinson disease, continue her usual levodopa-carbidopa Plan VTE prophylaxis - deferred pending Brain MRI Diet - regular Disposition - admit to PCU Admission and Anticipated Discharge Date Admission Date: July 22, 2023 History of Present Illness Chief Complaint: Dizziness Primary Care Provider: DO Elyse Russo Chris is an 78 year old female who presents to the ER due to inability to walk for months due to increasing weakness and dizziness. Losing track of time and more confused for the last 3 weeks. Appears more pale than usual per caregiver. Unclear from the patient trying to get a good timeline why she is here today. She notes her bilateral leg pain is worse than usual and appears correlated to current dizziness. She reports her dizziness is not lightheadedness or like the room spinning but more just feels unbalanced. Plan from neurology last admission was to get nerve conduction studies as an outpatient but she does not think she had these done. Her caregiver reports her balance today was just much worse than usual therefore decided to bring her to the ER. No respiratory, gastrointestinal or urinary infective symptoms. She notes feeling her mouth is very dry but reports eating and drinking ok without any choking. She notes with her current dentures she cannot chew foot well. She denies any one sided change in sensation, weakness, facial droop, change in vision, speech or hearing. She has been taking all her medications as prescribed although notes she is no longer on Eliquis since this was discontinued by her PCP as not felt to be needed at her last visit. Allergies Allergy/AdvReac Type Severity Reaction Status Date / Time nitrofurantoin Allergy Intermediate HIVES,ITCHI Verified 07/08/23 10:47 NG azithromycin [From Zithromax] Allergy HIVES Verified 07/08/23 10:47 tramadol AdvReac Mild nausea Verified 07/08/23 10:47 Home Medications Medication Instructions Recorded Confirmed Type aspirin 81 mg tablet,delayed 81 mg PO QAM 06/06/18 07/22/23 History release denosumab 60 mg/mL subcutaneous 60 mg subcut Q6MO 02/25/19 07/22/23 History syringe lancets 33 gauge (Zarpo #100 ea 07/13/20 07/22/23 History Lancets) blood sugar diagnostic (Nomad Gamesuch #10 ea 12/08/21 07/22/23 History Ultra Blue Test Strip) albuterol sulfate 90 mcg/actuation 2 puff inhalation QID PRN 03/05/22 07/22/23 Rx aerosol inhaler (Ventolin HFA) shortness of breath or wheezing #6.7 grams calcium carbonate 500 mg calcium 500 mg PO QAM 06/29/22 07/22/23 History (1,250 mg) chewable tablet (Calcium 500) albuterol sulfate 2.5 mg/3 mL 2.5 mg inhalation Q8H PRN 01/09/23 07/22/23 History (0.083 %) solution for nebulization Shortness Of Breath Or Wheezing hydrocortisone acetate 25 mg 25 mg VA BID PRN Hemorrhoids 01/09/23 07/22/23 History rectal suppository (Anusol-HC) levothyroxine 88 mcg tablet 88 mcg PO DAILYBB 01/09/23 07/22/23 History dexlansoprazole 60 mg 60 mg PO QAM #90 caps 01/25/23 07/22/23 Rx capsule,biphase delayed release (Dexilant) atorvastatin 80 mg tablet 80 mg PO HS #90 tabs 02/12/23 07/22/23 Rx metoprolol succinate 50 mg 50 mg PO QAM #90 tabs 02/21/23 07/22/23 Rx tablet,extended release 24 hr fluticasone propionate 50 2 spray intranasal QAM PRN Allergy 03/01/23 07/22/23 Rx mcg/actuation nasal Symptoms #16 grams spray,suspension L.acidop,casei,lactis,rham-B.lact,alana 2 cap PO DAILY #180 caps 06/04/23 07/22/23 Rx 625 mg (10 billion cell) capsule (Advanced Probiotic) apixaban 2.5 mg tablet (Eliquis) 2.5 mg PO BID #180 tabs 06/04/23 07/22/23 Rx pyridoxine (vitamin B6) 100 mg 100 mg PO DAILY 06/07/23 07/22/23 History tablet carbidopa 10 mg-levodopa 100 mg 2 tab PO QID@0800,1200,1600,2000 06/13/23 07/22/23 Rx tablet 30 days #240 tabs duloxetine 30 mg capsule,delayed 30 mg PO DAILY #90 caps 07/08/23 07/22/23 Rx release (Cymbalta) valacyclovir 500 mg tablet 500 mg PO UD PRN breakout 07/22/23 07/22/23 History Past Med/Surg History Medical History (Updated 07/22/23 @ 19:42 by Isidro Perry MD) Stroke-like symptoms Chronic deep vein thrombosis (DVT) Prediabetes Iron deficiency anemia Secondary hyperparathyroidism of renal origin Leg length discrepancy Acute kidney injury Ankle edema, bilateral Arthritis Asymptomatic menopausal state Blood glucose abnormal Cardiomyopathy Cholelithiasis Chronic GERD Chronic fatigue syndrome Chronic laryngitis Chronic pharyngitis Cigarette smoker motivated to quit Cough 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 Deep vein thrombosis of distal lower extremity Depression Dermatitis, eczematoid Diabetes mellitus (11/29/12) Dizziness Dyspnea on exertion Dysuria Gastropathy Hearing loss Hematuria, microscopic Herpes simplex Hoarseness Hyperglycemia Hypothyroidism Interstitial lung disease Ischemic colitis Laryngitis Lightheadedness Low back pain Lumbar spinal stenosis Muscle spasm NSTEMI (non-ST elevated myocardial infarction) Nasal dryness Nicotine dependence 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 Recurrent UTI Rib pain on right side SNHL (sensorineural hearing loss) Secondary hyperparathyroidism (of renal origin) Shortness of breath Solitary pulmonary nodule Subsequent non-ST elevation (NSTEMI) myocardial infarction Takotsubo syndrome Tendinitis of left rotator cuff Type 2 diabetes mellitus without complication Vertigo GERD (gastroesophageal reflux disease) Chronic kidney disease Hypothyroidism (acquired) Pneumonia Constipation GI bleed Chronic deep vein thrombosis of left lower extremity Sinusitis Hematuria Kidney stones Hyperlipidemia DVT (deep venous thrombosis) Osteopenia (11/29/12) Thyroid disease Compression fracture of lumbar vertebra Surgical History History of tubal ligation History of D&C History of Hx of colonoscopy Family History Mother Leukemia Hypertension Father Myocardial infarction Diabetes Other Family history non-contributory Denies family history of Ovarian cancer Prostate cancer Breast cancer Lung cancer Social History Smoking Status: Former smoker Tobacco Type: Cigarettes Age Started Using Tobacco: 17; Age Quit Using Tobacco: 73; packs per day: 1; Cigarettes Per Day: At 1st cigarette smoking with sparse, but at the end she was smoking 1ppd; Second Hand Exposure: No; Do You Dip or Chew Tobacco: No; Hx Alcohol Use: No Hx Substance Use: Yes Last Used Substance: Hours (ago) Preferred Language: Paraguayan Communication Ability: Effective Visual Impairment: No Limitations Hearing Ability: Use of Hearing Aid Duplicate Maker Required: No Beliefs That Will Affect Care: None marital status: Current Living Situation: Alone and Personal Care Facility Current Living Situation Comment: Has a caregiver current occupational status: retired 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 Safe at Home: Yes Childhood Exposure to Second-Hand Smoke: Yes caffeine: No Dental Care, Regularly: No Physical Activity Frequency: Does not Exercise Seatbelt Use: always Sunscreen Use: No Assistive Devices: Walker Review of Systems 2 Review of Systems: All systems reviewed & are unremarkable except as noted in HPI & below Physical Exam 2 Constitutional: well developed; + not well nourished and no acute distress ENMT: Mouth: + dry oral mucous membranes Neck: trachea midline, no thyromegaly Respiratory: normal respiratory effort, lungs clear to auscultation Cardiovascular: RRR, no murmur, no edema Gastrointestinal (Abdomen): normal bowel sounds, soft, nontender, no hepatosplenomegaly Musculoskeletal: no cyanosis or clubbing, extremities motor strength 5/5 Skin: no rashes, warm and dry Neurologic: moves all extremities and awake; no focal motor deficits and not confused Motor/Sensory: + tremor; no pronator drift Cranial Nerves: PERRL, EOM intact bilaterally, normal facial strength, tongue midline, able to rotate head bilaterally, able to elevate shoulders bilaterally, no nystagmus and symmetric palate elevation Coordination: normal [id number] test Psychiatric: A+Ox3, euthymic affect Results & Data Results & Data Vital Signs (Past 12 Hours) Vital Signs Temp Pulse Pulse Resp BP BP Pulse Ox 07/22/23 14:24 74 18 114/56 L 100 07/22/23 12:55 127 H 20 100 07/22/23 12:54 133 H 20 96/51 L 100 07/22/23 11:14 36.1 C L 85 16 97/57 L 94 07/22/23 11:08 O2 Del Method O2 Flow Rate 07/22/23 14:24 Nasal Cannula 2 07/22/23 12:55 Nasal Cannula 2 07/22/23 12:54 Nasal Cannula 2 07/22/23 11:14 Room Air 07/22/23 11:08 Nasal Cannula 2 Laboratory Results Abnormal lab results 07/22/23 07/22/23 Range/Units 11:54 11:56 MCV 101.2 H (80.0-100.0) fL RDW Std Deviation 54.4 H (36.4-46.3) fL POC Sodium 134 L (135-144) mmol/L Sodium 133 L (136-145) mmol/L POC Chloride 97 L (101-112) mmol/L Chloride 97 L (98-107) mmol/L Anion Gap 12 H (3-11) POC Anion Gap 15.0 L (16-25) mmol/L POC BUN 25 H (7-18) mg/dl BUN 24 H (6-23) mg/dl Creatinine 1.55 H (0.6-1.2) mg/dl POC Creatinine 1.8 H (0.6-1.3) mg/dl POC Glucose (other) 104 H (70-99) mg/dl POC Ioniz Calcium [place] 1.11 L (1.12-1.32) mmol/l ALT 5 L (7-52) U/L Alkaline Phosphatase 118 H (34-104) U/L Troponin I High Sens 78.1 H* (0-14) pg/ml Diagnostic Findings XR chest 1V portable HISTORY: 78 years-old Female dizzy acute dizziness COMPARISON: 05/14/2023 TECHNIQUE: AP view of the chest FINDINGS: Cardiac silhouette is enlarged. The lungs are hypoinflated. Emphysema with chronic interstitial coarsening. No pneumothorax, pleural effusion or airspace consolidation. The bones appear grossly intact. IMPRESSION: Emphysema with chronic interstitial coarsening. CT angio head wo/w CLINICAL HISTORY: 78 years-old Female with ? cva. Acute strokelike symptoms COMPARISON STUDY: CTA neck of same day, head CT 02/20/2022 TECHNIQUE: Unenhanced axial CT scan of the brain is performed. Subsequently, following the IV administration of 118 cc of Optiray, CT angiogram of the brain was performed from the skull base to the vertex. Images are reviewed in the axial, sagittal, and coronal planes. 3-D MIPS images are created and assessed. IV contrast was administered without complication. All measurements were obtained according to NASCET criteria. A dose lowering technique was utilized adhering to the principles of ALARA. FINDINGS: CT BRAIN: There is no acute intracranial hemorrhage, midline shift, hydrocephalus, intracranial mass, territorial ischemia or abnormal extra-axial collections. No abnormal intra-axial or extra-axial enhancement. Involutional changes with chronic microvascular ischemic disease. Right mastoid fusion. The left mastoid air cells and paranasal sinuses are generally clear. Prior bilateral lens repair. Surgical clips are noted anterior and inferior to the right ear. No calvarial fracture. Paranasal sinuses are clear. CT ANGIOGRAM OF THE BRAIN: The imaged bilateral internal carotid arteries are patent. The bilateral anterior and middle cerebral arteries are also patent. The vertebrobasilar system and posterior cerebral arteries are widely patent. There is no aneurysm, high-grade stenosis, or proximal branch occlusion identified. Dural sinuses appear patent. Opacified venous collaterals are noted within the right neck with right internal jugular vein narrowing seen on image 1 series 5 which is likely chronic. IMPRESSION: 1. No acute intracranial abnormality. 2. Unremarkable CTA of the head. CT ANGIOGRAM OF THE NECK CLINICAL HISTORY: Strokelike symptoms. COMPARISON STUDY: CT angiogram of the neck dated 12/06/2018. TECHNIQUE: Following the IV administration of 118 of Optiray 320, CT angiogram of the neck was performed from the aortic arch to the skull base. Images are reviewed in the axial, sagittal, and coronal planes. 3-D MIPS images are created and assessed. IV contrast was administered without complication. All measurements were calculated based on NASCET criteria. A dose lowering technique was utilized adhering to the principles of ALARA. CT DOSE: 935.37 mGy.cm FINDINGS: Thoracic aorta: There is atherosclerotic calcification of the thoracic aorta. Visualized portions of the thoracic aorta are normal in caliber. The aortic arch demonstrates standard 3-vessel anatomy. Right carotid arterial system: The right common carotid artery is widely patent, as are the right internal and external carotid arteries. Advanced atherosclerotic plaque is seen in the carotid bulb and proximal right internal carotid artery. Left carotid arterial system: The left common carotid artery is widely patent. Advanced atherosclerotic plaque is seen in the carotid bulb and the left internal carotid artery. This causes less than 50% stenosis of the proximal left internal carotid artery. The left internal and external carotid arteries are otherwise widely patent. Vertebral arteries: Vertebral arteries are widely patent bilaterally noting left-sided prominence. Subclavian arteries: Patent bilaterally. Intracranial vasculature: The visualized intracranial vessels at the skull base are patent. Jugular veins: Widely patent bilaterally. Brain parenchyma: The visualized brain parenchyma the skull base is within normal limits. Upper chest: Emphysema is noted. Calcified granulomas and parenchymal scarring are noted in the upper lobes. The main pulmonary arteries are dilated suggesting pulmonary artery hypertension. Secretions are noted in the left mainstem bronchus. Soft tissues: The visualized pharyngeal soft tissues are normal in appearance noting angiographic phase technique. Surgical clips are noted in the right neck. The oropharyngeal airway appears widely patent. The right parotid gland is surgically absent. The left parotid gland and the submandibular glands are normal in appearance. The thyroid gland is more caudal. No cervical lymphadenopathy is seen. Skeletal structures: The skeletal structures are osteopenic. The visualized calvarium at the skull base appears intact. The imaged cervical spine is maintained noting multilevel spondylosis. No lytic or blastic lesion is seen. Sinuses and mastoids: The visualized paranasal sinuses are clear. There is a right mastoid effusion. The left mastoid air cells are well-pneumatized. IMPRESSION: 1. Unremarkable CT angiogram of the neck. 2. Emphysema. 3. Additional findings as above. Medications Administered ER medications given: Normal saline 1 L bolus ECG Rate (beats per minute): 79 Rhythm: normal sinus Findings: + other (Poor R wave progression) Comparison ECG Date: from (May 10, 2023) Change: no significant change Additional Comments: Code Status & VTE Plan Code Status Full VTE Prophylaxis Plan VTE Prophylaxis will be ordered: Yes PG Care Time/CCT Total # of Minutes Spent Total Time Spent with Patient: Total time spent is greater than 50% in coordination of care (as documented) at patient's floor/unit and/or counseling patient: Coding Level of Care Code 26297 INT INP/OBS CARE 3/75MIN Diagnoses Second degree AV block, Mobitz type II I44.1 Stroke-like symptoms R29.90 Elevated troponin R79.89 Chronic deep vein thrombosis (DVT) I82.509 Hypothyroidism (acquired) E03.9 GERD (gastroesophageal reflux disease) K21.9 Age-related osteoporosis with current pathological fracture with routine healing, subsequent encounter M80.00XD Osteoporosis type: age-related Presence of current pathological fracture: with current pathological fracture Encounter type: subsequent encounter Fracture healing: with routine healing Tremor R25.1 (7) Osteoporosis Osteoporosis type: age-related Presence of current pathological fracture: w ith current pathological fracture Encounter type: subsequent encounter F racture healing: with routine healing Qualified Code(s): M80.00XD - Age-related osteoporosis with current pathological fracture, unspecified site, subsequent encounter for fracture with routine healing
--- NOTE | 2023-07-22 14:54 | Electrocardiogram Report ---
Test Reason : Blood Pressure : / mmHG Vent. Rate : 079 BPM Atrial Rate : 079 BPM P-R Int : 208 ms QRS Dur : 074 ms QT Int : 394 ms P-R-T Axes : 039 -10 043 degrees QTc Int : 451 ms Normal sinus rhythm Possible Left atrial enlargement Poor R wave progression, consider anterior MO vs. lead placement vs. LVH Abnormal ECG When compared with ECG of 10-MAY-2023 15:36, No significant change was found Confirmed by Edmundo Salazar ([id number]) on 07/22/2023 2:54:13 PM Referred By: REFERRED SELF Confirmed By:Edmundo Salazar
[2023-07-22] MEDS ORDERED: CARBIDOPA/LEVODOP 10/100MG TAB PO STA (15:22)
--- NOTE | 2023-07-22 17:55 | Magnetic Resonance Report ---
MRI OF THE BRAIN WITHOUT IV CONTRAST CLINICAL HISTORY: Acute loss of coordination/balance. Weakness. COMPARISON STUDY: CT of the brain dated 07/22/2023. TECHNIQUE: MRI of the brain was performed utilizing various T1 and T2-weighted sequences in the axial , sagittal, and coronal planes. IV contrast was not administered for this examination. FINDINGS: Brain parenchyma: There are at least 3 punctate foci of restricted diffusion in the right cerebellar hemisphere, and an additional punctate focus of restricted diffusion in the medial right temporal lob e cortex consistent with foci of acute to subacute ischemia. There is age-related involutional change noting advanced subcortical and periventricular microangiopathic disease. There are punctate chronic lacunar infarcts in the left cerebellar hemisphere. There is no hemorrhage or mass effect. No extra -axial fluid collection is seen. The cerebellar tonsils are normal in configuration. Ventricles, sulci, and cisterns: Prominent secondary to involutional change. Pituitary and sella: Unremarkable. Intracranial vasculature: Normal flow voids are maintained at the skull base. Orbits: The bony orbits are grossly intact. Orbital contents are normal in appearance noting bilatera l ocular lens implants. Sinuses and mastoids: There is a right mastoid effusion. The paranasal sinuses and left mastoid air c ells are clear. Calvarium: Unremarkable. Cervical cord: Partially visualized cervical spinal cord is normal in morphology and signal intensity . IMPRESSION: 1. There are at least 3 punctate foci of restricted diffusion in the right cerebellar hemisphere, wit h an additional punctate focus of restricted diffusion in the medial right temporal lobe cortex. Thes e are consistent with tiny acute to subacute infarcts. The distribution favors an embolic phenomenon. 2. There is no hemorrhage or mass effect. 3. Right mastoid effusion. ACT 112: Negative or not required by law. Electronically signed by: Salo Morales M.D. 07/22/2023 5:53 PM
[2023-07-22] MEDS ORDERED: PHARMACIST DISCHARGE MED REC CONSULT PRN (18:42)
[2023-07-22] MEDS: APIXABAN 2.5 MG TAB PO SCH (20:45)
[2023-07-22] MEDS: CARBIDOPA/LEVODOP 10/100MG TAB PO SCH (20:46)
[2023-07-22] MEDS: ATORVASTATIN 40 MG TAB PO SCH (20:46)
[2023-07-22] MEDS: SODIUM CHLORIDE 0.9% 1,000 ML IV SCH (20:46)
[2023-07-22 22:49] LABS: Appearance Urine Clear (Clear); Bacteria Urine Automated 2+ (Negative); Bilirubin Urine Negative (Negative); Blood Urine Negative (Negative); Cast Urine Automated 0 /lpf (0-5); Color Urine Yellow; Glucose Urine UA Negative (Negative); Ketones Urine Trace (Negative); Leukocyte Esterase Urine Trace (Negative); Nitrite Urine Negative (Negative); Protein Urine Negative (Negative); RBC Urine Automated 0-4 /hpf (0-4); Specific Gravity Urine 1.044 (1.000-1.030); Urobilinogen Urine Negative (Negative)
[2023-07-23] MEDS: SODIUM CHLORIDE 0.9% 1,000 ML IV SCH (05:43)
[2023-07-23] MEDS: ACETAMINOPHEN 325 MG TAB PO PRN ×2 (05:44→13:11)
[2023-07-23] MEDS: LEVOTHYROXINE SODIUM 88 MCG TABLET PO SCH (05:44)
--- NOTE | 2023-07-23 07:02 | Ultrasound Report ---
BILATERAL LOWER EXTREMITY VENOUS DOPPLER HISTORY: b/l leg pain, Hx DVT, known chronic DVT COMPARISON STUDY: Bilateral lower extremity venous Doppler 05/10/2023. FINDINGS: There is normal compressibility, flow, and augmentation within the right lower extremity de ep venous system. Linear echogenic foci within the left common femoral, superficial femoral, poplitea l, gastrocnemius veins again noted suggestive of chronic nonocclusive thrombus. This is similar to th e prior study. No evidence for acute DVT within the left lower extremity. IMPRESSION: 1. No evidence for acute DVT within the right or left lower extremity. 2. Chronic nonocclusive thrombus again suggested within the left lower extremity deep venous system. This is similar to the prior study. ACT 112: Negative or not required by law. Electronically signed by: Kade Osborne M.D. 07/23/2023 7:01 AM
--- NOTE | 2023-07-23 07:10 | Communication Note ---
Date of Service: July 22, 2023 Brain MRI showing embolic-appearing stroke, stroke order set ordered. Discussed with Dr Luna and will restart on Eliquis 2.5mg PO BID (despite being on home med list she has not been taking this), may not need aspirin in addition but will defer stopping this to neurology tomorrow. Informed patient or MRI results with her daughter now at bedside.
[2023-07-23] MEDS: ADVANCED PROBIOTIC 1250 MG CAPSULE PO SCH (08:06)
[2023-07-23] MEDS: PANTOprazole 40 MG TAB PO SCH (08:06)
[2023-07-23] MEDS: ASPIRIN 81 MG ECTAB PO SCH (08:07)
[2023-07-23] MEDS: DULoxetine HCL 30 MG CAP PO SCH (08:07)
[2023-07-23] MEDS: CARBIDOPA/LEVODOP 10/100MG TAB PO SCH ×4 (08:08→21:24)
[2023-07-23] MEDS: APIXABAN 2.5 MG TAB PO SCH ×2 (08:08→21:24)
[2023-07-23 08:23] LABS: Estimated Average Glucose 108 mg/dl; Hemoglobin A1C 5.4 % (4.5-5.6)
[2023-07-23 08:28] LABS: Basophils # (auto) 0.04 K/uL (0.00-0.20); Basophils % (auto) 0.5 %; Eosinophils # (auto) 0.18 K/uL (0.00-0.50); Eosinophils % (auto) 2.4 %; Hematocrit (blood only) 34.8 % (37.0-47.0); Hemoglobin 10.7 g/dl (12.0-16.0); Immature Granulocytes # (auto) 0.03 K/uL (0.01-0.20); Immature Granulocytes % (auto) 0.4 %; Lymphocytes # (auto) 2.34 K/uL (1.20-3.40); Lymphocytes % (auto) 30.8 %; Mean Corpuscular Hemoglobin 31.7 pg (25.0-34.0); Mean Corpuscular Hgb Conc 30.7 g/dL (32.0-36.0); Mean Platelet Volume 10.1 fL (9.4-12.4); Monocytes # (auto) 0.67 K/uL (0.11-0.59); Monocytes % (auto) 8.8 %; Neutrophils # (auto) 4.34 K/uL (1.40-6.50); Neutrophils % (auto) 57.1 %; Platelet Count 284 K/uL (130-400); RDW Coefficient of Variation 14.7 % (11.5-14.5); RDW Standard Deviation 55.7 fL (36.4-46.3); Red Blood Count 3.38 M/uL (4.20-5.40)
[2023-07-23 08:31] LABS: BUN Creatinine Ratio 14.6 (10-20); Calcium 8.3 mg/dl (8.6-10.3); Chol HDL Ratio 2.6 (0-5); Creatinine Clr Calc Pharmacy 22.5 ml/min; Est GFR (Non-African American) 41.4 ml/min; Potassium 3.9 mmol/L (3.5-5.1)
[2023-07-23 08:33] LABS: Troponin I High Sensitivity 83.6 pg/ml (0-14)
--- NOTE | 2023-07-23 10:00 | Electrocardiogram Report ---
Test Reason : Blood Pressure : / mmHG Vent. Rate : 063 BPM Atrial Rate : 063 BPM P-R Int : 252 ms QRS Dur : 086 ms QT Int : 454 ms P-R-T Axes : 031 -13 032 degrees QTc Int : 464 ms Sinus rhythm with 1st degree A-V block Otherwise normal ECG When compared with ECG of 22-JUL-2023 11:37, [place] interval has increased Confirmed by Edmundo Salazar ([id number]) on 07/23/2023 9:59:39 AM Referred By: REFERRED SELF Confirmed By:Edmundo Salazar
--- NOTE | 2023-07-23 10:27 | Neurology Consultation ---
Date of Consultation July 23, 2023 Assessment & Plan (1) Ischemic stroke: History of Present Illness Attending Physician: Chastity Ortiz MD History of Present Illness pt with small punctate ischemic stroke in rt cerebellum and rt temporal lobe. no bleed. cerebellum appears to be subacute. this morning pt feeling well and back to baseline. admission HPI: Elyse Perez is an 78 year old female who presents to the ER due to inability to walk for months due to increasing weakness and dizziness. Losing track of time and more confused for the last 3 weeks. Appears more pale than usual per caregiver. Unclear from the patient trying to get a good timeline why she is here today. She notes her bilateral leg pain is worse than usual and appears correlated to current dizziness. She reports her dizziness is not lightheadedness or like the room spinning but more just feels unbalanced. Plan from neurology last admission was to get nerve conduction studies as an outpatient but she does not think she had these done. Her caregiver reports her balance today was just much worse than usual therefore decided to bring her to the ER. No respiratory, gastrointestinal or urinary infective symptoms. She notes feeling her mouth is very dry but reports eating and drinking ok without any choking. She notes with her current dentures she cannot chew foot well. She denies any one sided change in sensation, weakness, facial droop, change in vision, speech or hearing. She has been taking all her medications as prescribed although notes she is no longer on Eliquis since this was discontinued by her PCP as not felt to be needed at her last visit. Allergies Allergy/AdvReac Type Severity Reaction Status Date / Time nitrofurantoin Allergy Intermediate HIVES,ITCHI Verified 07/08/23 10:47 NG azithromycin [From Zithromax] Allergy HIVES Verified 07/08/23 10:47 tramadol AdvReac Mild nausea Verified 07/08/23 10:47 Home Medications Medication Instructions Recorded Confirmed Type aspirin 81 mg tablet,delayed 81 mg PO QAM 06/06/18 07/22/23 History release denosumab 60 mg/mL subcutaneous 60 mg subcut Q6MO 02/25/19 07/22/23 History syringe lancets 33 gauge ([employer] #100 ea 07/13/20 07/22/23 History Lancets) blood sugar diagnostic ([employer] #10 ea 12/08/21 07/22/23 History Ultra Blue Test Strip) albuterol sulfate 90 mcg/actuation 2 puff inhalation QID PRN 03/05/22 07/22/23 Rx aerosol inhaler (Ventolin HFA) shortness of breath or wheezing #6.7 grams calcium carbonate 500 mg calcium 500 mg PO QAM 06/29/22 07/22/23 History (1,250 mg) chewable tablet (Calcium 500) albuterol sulfate 2.5 mg/3 mL 2.5 mg inhalation Q8H PRN 01/09/23 07/22/23 History (0.083 %) solution for nebulization Shortness Of Breath Or Wheezing hydrocortisone acetate 25 mg 25 mg NC BID PRN Hemorrhoids 01/09/23 07/22/23 History rectal suppository (Anusol-HC) levothyroxine 88 mcg tablet 88 mcg PO DAILYBB 01/09/23 07/22/23 History dexlansoprazole 60 mg 60 mg PO QAM #90 caps 01/25/23 07/22/23 Rx capsule,biphase delayed release (Dexilant) atorvastatin 80 mg tablet 80 mg PO HS #90 tabs 02/12/23 07/22/23 Rx metoprolol succinate 50 mg 50 mg PO QAM #90 tabs 02/21/23 07/22/23 Rx tablet,extended release 24 hr fluticasone propionate 50 2 spray intranasal QAM PRN Allergy 03/01/23 07/22/23 Rx mcg/actuation nasal Symptoms #16 grams spray,suspension L.acidop,casei,lactis,rham-B.lact,alana 2 cap PO DAILY #180 caps 06/04/23 07/22/23 Rx 625 mg (10 billion cell) capsule (Advanced Probiotic) apixaban 2.5 mg tablet (Eliquis) 2.5 mg PO BID #180 tabs 06/04/23 07/22/23 Rx pyridoxine (vitamin B6) 100 mg 100 mg PO DAILY 06/07/23 07/22/23 History tablet carbidopa 10 mg-levodopa 100 mg 2 tab PO QID@0800,1200,1600,2000 06/13/23 07/22/23 Rx tablet 30 days #240 tabs duloxetine 30 mg capsule,delayed 30 mg PO DAILY #90 caps 07/08/23 07/22/23 Rx release (Cymbalta) valacyclovir 500 mg tablet 500 mg PO UD PRN breakout 07/22/23 07/22/23 History Patient History Medical History (Updated 07/23/23 @ 10:27 by Jose Luna MD) Ischemic stroke Stroke-like symptoms Chronic deep vein thrombosis (DVT) Prediabetes Iron deficiency anemia Secondary hyperparathyroidism of renal origin Leg length discrepancy Acute kidney injury Ankle edema, bilateral Arthritis Asymptomatic menopausal state Blood glucose abnormal Cardiomyopathy Cholelithiasis Chronic GERD Chronic fatigue syndrome Chronic laryngitis Chronic pharyngitis Cigarette smoker motivated to quit Cough 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 Deep vein thrombosis of distal lower extremity Depression Dermatitis, eczematoid Diabetes mellitus (11/29/12) Dizziness Dyspnea on exertion Dysuria Gastropathy Hearing loss Hematuria, microscopic Herpes simplex Hoarseness Hyperglycemia Hypothyroidism Interstitial lung disease Ischemic colitis Laryngitis Lightheadedness Low back pain Lumbar spinal stenosis Muscle spasm NSTEMI (non-ST elevated myocardial infarction) Nasal dryness Nicotine dependence 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 Recurrent UTI Rib pain on right side SNHL (sensorineural hearing loss) Secondary hyperparathyroidism (of renal origin) Shortness of breath Solitary pulmonary nodule Subsequent non-ST elevation (NSTEMI) myocardial infarction Takotsubo syndrome Tendinitis of left rotator cuff Type 2 diabetes mellitus without complication Vertigo GERD (gastroesophageal reflux disease) Chronic kidney disease Hypothyroidism (acquired) Pneumonia Constipation GI bleed Chronic deep vein thrombosis of left lower extremity Sinusitis Hematuria Kidney stones Hyperlipidemia DVT (deep venous thrombosis) Osteopenia (11/29/12) Thyroid disease Compression fracture of lumbar vertebra Surgical History History of tubal ligation History of D&C History of Hx of colonoscopy Family History Mother Leukemia Hypertension Father Myocardial infarction Diabetes Other Family history non-contributory Denies family history of Ovarian cancer Prostate cancer Breast cancer Lung cancer Social History Smoking Status: Former smoker Tobacco Type: Cigarettes Age Started Using Tobacco: 17; Age Quit Using Tobacco: 73; packs per day: 1; Cigarettes Per Day: At 1st cigarette smoking with sparse, but at the end she was smoking 1ppd; Second Hand Exposure: No; Do You Dip or Chew Tobacco: No; Hx Alcohol Use: No Hx Substance Use: Yes Last Used Substance: Hours (ago) Preferred Language: Mongolian Communication Ability: Effective Visual Impairment: No Limitations Hearing Ability: Use of Hearing Aid Insulation Cupola Charger Required: No Beliefs That Will Affect Care: None marital status: Current Living Situation: Alone and Personal Care Facility Current Living Situation Comment: Has a caregiver current occupational status: retired 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 Safe at Home: Yes Childhood Exposure to Second-Hand Smoke: Yes caffeine: No Dental Care, Regularly: No Physical Activity Frequency: Does not Exercise Seatbelt Use: always Sunscreen Use: No Assistive Devices: Walker Review of Systems Review of Systems: All systems reviewed & are unremarkable except as noted in Subjective Constitutional: as per Subjective / HPI Eyes: as per Subjective / HPI Ear, Nose, Mouth, Throat: as per Subjective / HPI Respiratory: as per Subjective / HPI Cardiovascular: as per Subjective / HPI Gastrointestinal: as per Subjective / HPI Musculoskeletal: as per Subjective / HPI Integumentary: as per Subjective / HPI Neurologic: as per Subjective / HPI Psychiatric: as per Subjective / HPI Endocrine: as per Subjective / HPI Hematologic / Lymphatic: as per Subjective / HPI Allergy / Immunological: as per Subjective / HPI Exam (Neuro) Physical Exam: HEENT: normocephalic Neuro: Mental: AOx4, fluent speech, normal comprehension, no apraxia, no L/R confusion, no neglect CN: PERRL, Full EOM, symmetric face, intact sensation t/o face, midline T/U/P, 5/5 SCM/traps. Motor: No abnormal movements, normal tone and bulk, 5/5 t/o bilaterally Sens: intact to touch b/l grossly Coord: intact DTR: 2+ sym b/l Impression: 78 yo female with small ischemic stroke rt cerebellum and rt temporal lobe. cerebellum stroke appears subacute in nature. pt noted for recent DVT, likely contributing to her stroke. agree with anticoagulation at this point. pt overall stable and doing well. Recommendations: 1. Standard stroke work up as planned 2.continue eliquis and ASA. 3. Images: TTE with bubble 4. Permissive Hypertension for next 24 h rs. Keep SBP goal range less than 220. Avoid hypotension. Do not stop beta-claudia if on it. 5. If noted for large intracranial vesse l stenosis, slow reduction of BP and allowing permissive HTN next 5-7 days. 6. Long-term SBP goal less than 130. 7. Plenty of hydration including IV flui d if possible (use isotonic solution) next 1-2 days. Avoid hypovolemia and hypotension. 8. Initiate DVT prevention therapy. 9. Avoid hypoglycemia, serum glucose goa l during hospitalization: 140-180. 10. Long-term HgA1c goal less than 7. 11. Start statin if not on it and no abs olute contraindication, long-term LDL goal less than 70. 12. Head of bed up 30 degrees if possibl e. 13. Stroke education by nursing and appr opriate staff. 14. Telemetry monitoring. Consider terminal press operator cardiac monitoring, i.e. MCOT (mobile cardiac outpatient telemetry) or ICM (insertable apartment maintenance supervisor, e.g. LINQ), if never had group home cardiac monitoring done previously. And if found to have atrial flutter or fibrillation, should consider anticoagulation therapy if no contraindication. 15. Fall precaution and aspiration preca ution. 16. Consult physical and occupational th rosario please call again if new question. she can f/u with her neurologist in our office, Luis Rabago, once discharged. Chart reviewed I have spent more than 50% educating patient about potential diagnosis and neurological evaluation and coordinating care with patient's treatment team. Total time spent (including chart review and coordination of care): 60 min (this includes chart review). Results & Data Vital Signs (Past 12 Hours) Vital Signs Temp Pulse Resp BP Pulse Ox O2 Del Method 07/23/23 08:01 37.0 C 67 18 102/57 L 93 Room Air 07/23/23 03:30 36.5 C 67 16 100/61 93 Room Air PG Care Time/CCT Total # of Minutes Spent Total Time Spent with Patient: Total time spent is greater than 50% in coordination of care (as documented) at patient's floor/unit and/or counseling patient: Coding Level of Care Code 83559 IN/OBS CONSULT LVL 4,60M Diagnoses Ischemic stroke I63.9
--- NOTE | 2023-07-23 11:20 | XCELERA ---
[id number] \\[id number]
--- NOTE | 2023-07-23 11:46 | Cardiology Consultation ---
Date of Consultation July 23, 2023 Assessment & Plan (1) Abnormal ECG: -telemetry notes blocked PACs, Mobitz type 1 second-degree AV block, and periods of 2-1 AV conduction (likely Wenckebach). -no evidence of Mobitz type 2 second-degree AV block. -agree with monitoring while off metoprolol. -will review with Dr. Garcia. (2) Stroke-like symptoms: -brain MRI raises the possibility of an embolic phenomena. -she has no history of paroxysmal atrial fibrillation. -would monitor while hospitalized. -consider 30 day event monitor at time of discharge (however, if she will continue Eliquis indefinitely, question the utility). (3) Elevated troponin: -very minor elevation of no clinical concern. -no evidence of acute coronary syndrome. (4) Mitral valve disorder: -mild mitral stenosis noted on current echocardiogram. -monitor with surveillance echocardiograms as an outpatient. History of Present Illness Attending Physician: Chastity Ortiz MD History of Present Illness Mrs. Perez is an 78-year-old female admitted yesterday with increasing dizziness and balance issues. This consultation was ordered because of Emmanuelle on her engine monitor. Of note, her daughter is at the bedside. The patient was in her usual state of health until approximately 3-4 days prior to presentation. She began to note progressive dizziness and she was having great difficulty with her balance. She was brought to emergency room by her daughter. While in the emergency room, a engine monitor strips noted what was called Mobitz type II,, however, review of the strip notes sinus rhythm with a blocked PAC. At no time has the patient experienced syncope or presyncope. She also denies exertional chest pain, dyspnea, PND, orthopnea, lower extremity edema, and claudication. She had an MRI of the brain performed as part of her workup. This noted 3 small infarcts in the right cerebellum 1 small infarction in the right temporal lobe. This raised the possibility an embolic phenomena. The patient has never known the diagnosis of atrial fibrillation. She has never experienced sustained palpitations. Currently, patient is resting comfortably in bed complaints. Past medical and surgical history 1. Hypertension 2. Hypercholesterolemia 3. COPD 4. Hyperglycemia 5. GERD 6. Hypothyroidism 7. Hyperparathyroidism 8. Chronic DVTs 9. Pulmonary nodule 10. DJD 11. Hearing deficit 12. History of ischemic colitis 13. Tubal ligation 14. D&C 15. History of Social history Single, lives alone Quit tobacco use at age 73, 55 pack year history No alcohol Family history Noncontributory Review of systems A 10 point review of systems was undertaken and negative except that described above. Allergies Allergy/AdvReac Type Severity Reaction Status Date / Time nitrofurantoin Allergy Intermediate HIVES,ITCHI Verified 07/08/23 10:47 NG azithromycin [From Zithromax] Allergy HIVES Verified 07/08/23 10:47 tramadol AdvReac Mild nausea Verified 07/08/23 10:47 Home Medications Medication Instructions Recorded Confirmed Type aspirin 81 mg tablet,delayed 81 mg PO QAM 06/06/18 07/22/23 History release denosumab 60 mg/mL subcutaneous 60 mg subcut Q6MO 02/25/19 07/22/23 History syringe lancets 33 gauge ([employer]ided [employer] #100 ea 07/13/20 07/22/23 History Lancets) blood sugar diagnostic ([employer] #10 ea 12/08/21 07/22/23 History Ultra Blue Test Strip) albuterol sulfate 90 mcg/actuation 2 puff inhalation QID PRN 03/05/22 07/22/23 Rx aerosol inhaler (Ventolin HFA) shortness of breath or wheezing #6.7 grams calcium carbonate 500 mg calcium 500 mg PO QAM 06/29/22 07/22/23 History (1,250 mg) chewable tablet (Calcium 500) albuterol sulfate 2.5 mg/3 mL 2.5 mg inhalation Q8H PRN 01/09/23 07/22/23 History (0.083 %) solution for nebulization Shortness Of Breath Or Wheezing hydrocortisone acetate 25 mg 25 mg IA BID PRN Hemorrhoids 01/09/23 07/22/23 History rectal suppository (Anusol-HC) levothyroxine 88 mcg tablet 88 mcg PO DAILYBB 01/09/23 07/22/23 History dexlansoprazole 60 mg 60 mg PO QAM #90 caps 01/25/23 07/22/23 Rx capsule,biphase delayed release (Dexilant) atorvastatin 80 mg tablet 80 mg PO HS #90 tabs 02/12/23 07/22/23 Rx metoprolol succinate 50 mg 50 mg PO QAM #90 tabs 02/21/23 07/22/23 Rx tablet,extended release 24 hr fluticasone propionate 50 2 spray intranasal QAM PRN Allergy 03/01/23 07/22/23 Rx mcg/actuation nasal Symptoms #16 grams spray,suspension L.acidop,casei,lactis,rham-B.lact,alana 2 cap PO DAILY #180 caps 06/04/23 07/22/23 Rx 625 mg (10 billion cell) capsule (Advanced Probiotic) apixaban 2.5 mg tablet (Eliquis) 2.5 mg PO BID #180 tabs 06/04/23 07/22/23 Rx pyridoxine (vitamin B6) 100 mg 100 mg PO DAILY 06/07/23 07/22/23 History tablet carbidopa 10 mg-levodopa 100 mg 2 tab PO QID@0800,1200,1600,2000 06/13/23 07/22/23 Rx tablet 30 days #240 tabs duloxetine 30 mg capsule,delayed 30 mg PO DAILY #90 caps 07/08/23 07/22/23 Rx release (Cymbalta) valacyclovir 500 mg tablet 500 mg PO UD PRN breakout 07/22/23 07/22/23 History Patient History Medical History (Updated 07/23/23 @ 12:01 by Edmundo Salazar MD) Ischemic stroke Stroke-like symptoms Chronic deep vein thrombosis (DVT) Prediabetes Iron deficiency anemia Secondary hyperparathyroidism of renal origin Leg length discrepancy Acute kidney injury Ankle edema, bilateral Arthritis Asymptomatic menopausal state Blood glucose abnormal Cardiomyopathy Cholelithiasis Chronic GERD Chronic fatigue syndrome Chronic laryngitis Chronic pharyngitis Cigarette smoker motivated to quit Cough 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 Deep vein thrombosis of distal lower extremity Depression Dermatitis, eczematoid Diabetes mellitus (11/29/12) Dizziness Dyspnea on exertion Dysuria Gastropathy Hearing loss Hematuria, microscopic Herpes simplex Hoarseness Hyperglycemia Hypothyroidism Interstitial lung disease Ischemic colitis Laryngitis Lightheadedness Low back pain Lumbar spinal stenosis Muscle spasm NSTEMI (non-ST elevated myocardial infarction) Nasal dryness Nicotine dependence 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 Recurrent UTI Rib pain on right side SNHL (sensorineural hearing loss) Secondary hyperparathyroidism (of renal origin) Shortness of breath Solitary pulmonary nodule Subsequent non-ST elevation (NSTEMI) myocardial infarction Takotsubo syndrome Tendinitis of left rotator cuff Type 2 diabetes mellitus without complication Vertigo GERD (gastroesophageal reflux disease) Chronic kidney disease Hypothyroidism (acquired) Pneumonia Constipation GI bleed Chronic deep vein thrombosis of left lower extremity Sinusitis Hematuria Kidney stones Hyperlipidemia DVT (deep venous thrombosis) Osteopenia (11/29/12) Thyroid disease Compression fracture of lumbar vertebra Surgical History History of tubal ligation History of D&C History of Hx of colonoscopy Family History Mother Leukemia Hypertension Father Myocardial infarction Diabetes Other Family history non-contributory Denies family history of Ovarian cancer Prostate cancer Breast cancer Lung cancer Social History Smoking Status: Former smoker Tobacco Type: Cigarettes Age Started Using Tobacco: 17; Age Quit Using Tobacco: 73; packs per day: 1; Cigarettes Per Day: At 1st cigarette smoking with sparse, but at the end she was smoking 1ppd; Second Hand Exposure: No; Do You Dip or Chew Tobacco: No; Hx Alcohol Use: No Hx Substance Use: Yes Last Used Substance: Hours (ago) Preferred Language: Danish Communication Ability: Effective Visual Impairment: No Limitations Hearing Ability: Use of Hearing Aid Collection Correspondent Required: No Beliefs That Will Affect Care: None marital status: Current Living Situation: Alone and Personal Care Facility Current Living Situation Comment: Has a caregiver current occupational status: retired 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 HEENT exam is negative. Neck is supple with full carotid upstrokes. There are carotid bruits. Jugular is pressure is flat at 90. There is no thyromegaly. Cardiovascular exam reveals a regular rhythm with distant heart sounds. No obvious murmurs. Lungs are clear without rales rhonchi wheezes. Abdomen is soft without bruits. Extremities reveal intact radial artery pulses bilaterally. There is no peripheral edema. Results & Data Vital Signs (Past 12 Hours) Vital Signs Temp Pulse Resp BP Pulse Ox O2 Del Method 07/23/23 08:01 37.0 C 67 18 102/57 L 93 Room Air 07/23/23 03:30 36.5 C 67 16 100/61 93 Room Air Laboratory Results CBC notes hemoglobin 10.7, hematocrit 34.8, white count 7.6, platelet count of 284. Electrolytes note a sodium of 135, potassium 3.9, chloride 104, bicarb 23, BUN 18, creatinine 1.23, and glucose of 92. Initial high sensitivity troponin was 70.1 with follow-up values of 88 and 83.6. Diagnostic Findings Echocardiogram notes normal left ventricular systolic function with ejection f raction of 60-65%. There was mild mitral stenosis. Bubble study was negative. Compared with study performed in December 2022, no significant change. ECG notes sinus rhythm with first-degree AV block. Review of telemetry notes blocked PACs, Mobitz type 1 second-degree AV block, and periods of 2-1 AV conduction. PG Care Time/CCT Total # of Minutes Spent Total Time Spent with Patient: Total time spent is greater than 50% in coordination of care (as documented) at patient's floor/unit and/or counseling patient: Coding Level of Care Code 47910 INT INP/OBS CARE 3/75MIN Diagnoses Abnormal ECG R94.31 Stroke-like symptoms R29.90 Elevated troponin R79.89 Mitral valve disorder I05.9
--- NOTE | 2023-07-23 14:57 | Pharmacy Report ---
- Date of Service July 23, 2023 - Pharmacy CVA/TIA Medication Review Medications to Prevent Stroke handout has been added to the patients discharge packet. Antiplatelet(s) * neurology recommends continuation of aspirin 81 mg daily Cholesterol * High intensity statin: atorvastatin 80 mg daily DVT Prophylaxis * eliquis Therapeutic Anticoagulation * neurology recommends continuation of eliquis Type 2 Diabetes * Patient does not have T2DM
--- NOTE | 2023-07-23 20:03 | Hospitalist Progress Note ---
Date of Service July 23, 2023 Assessment & Plan (1) Ischemic stroke: Plan: Presented with acute on chronic difficulty balancing. Significant worsening on the day of admission Brain MRI -shows several punctate right cerebellum and right temporal lobe subacute strokes likely cause of her symptoms-seems embolic in nature CT angiogram head and neck are negative Echocardiogram with bubble study performed and shows mild mitral stenosis but negative bubble Telemetry so far with Mobitz type I and blocked PACs but no atrial fibrillation or flutter-recommend 30-day event monitor after discharge Continue aspirin, high intensity statin-lipid panel is good Hemoglobin A1c normal, TSH in 05/2023 normal Blood pressures are controlled Discontinue IV fluids Continue low-dose apixaban which would cover her for occult atrial fibrillation or flutter but is also for DVT prevention PT/OT consults pending but will likely need rehab Appreciate neurology and cardiology consultations (2) Second degree AV block, Mobitz type I: Plan: Intermittent, holding home metoprolol Appreciate cardiology consultation Not likely the cause of her dizziness (3) HTN (hypertension): Plan: Blood pressures are controlled Holding home metoprolol for Mobitz 1 Monitor blood pressures and if become elevated, start amlodipine (4) CKD (chronic kidney disease), stage IV: Plan: Creatinine improved from admission down to 1.23 but is variable Renally dose medications and avoid nephrotoxins Follow BMP (5) Elevated troponin: Plan: No chest pain or shortness of breath to suggest ACS, troponin peaked at 88 No ischemic changes on ECG Echocardiogram without wall motion abnormalities Demand ischemia secondary to acute stroke (6) Chronic deep vein thrombosis (DVT): Plan: Restart on Eliquis 2.5 mg p.o. BID-she is not having any ongoing bleeding issues and her previous bleeding issue was from ischemic colitis several years ago she thinks US venous doppler given off her usual Eliquis and bilateral leg pain worse than usual shows chronic DVT in the left lower extremity Monitor for any bleeding issues once on Eliquis (7) Hypothyroidism (acquired): Plan: TSH WNL May 2023, no need to repeat Continue levothyroxine (8) GERD (gastroesophageal reflux disease): Plan: Continue PPI (9) Osteoporosis: Plan: Noted, on denosumab as outpatient (10) Tremor: Plan: Under neurology with no definitive diagnosis of Parkinson disease, continue her usual levodopa-carbidopa Plan VTE prophylaxis -Eliquis Disposition -continued stay on PCU for telemetry monitoring, await PT/OT evaluations and likely rehab placement Discussed all care with her daughter at the bedside Admission and Anticipated Discharge Date Admission Date: July 22, 2023 Subjective Pt feeling okay. Still feels very weak but not as dizzy. I discussed her care with cardiology. Telemetry with sinus rhythm and blocked PACs, occasional Wenckebach. Physical Exam Constitutional: WD/WN, vitals as above Respiratory: normal respiratory effort, lungs clear to auscultation Cardiovascular: Rate/Rhythm: regular rate and regular rhythm Heart Sounds: no murmur Extremities: + edema (Trace edema in right greater than left legs) Gastrointestinal (Abdomen): normal bowel sounds, soft, nontender, no hepatosplenomegaly Neurologic: PERRL, EOMI, accommodation nl, no face palsy, no dysarthria Results & Data Results & Data Vital Signs (Past 12 Hours) Vital Signs Temp Pulse Pulse Resp BP Pulse Ox O2 Del Method 07/23/23 15:56 36.5 C 79 18 95/58 L 92 Room Air 07/23/23 15:21 75 07/23/23 13:01 66 07/23/23 12:07 36.5 C 73 18 101/54 L 94 Room Air 07/23/23 08:01 37.0 C 67 18 102/57 L 93 Room Air Laboratory Results CBC, BMP, troponin reviewed Diagnostic Findings Echocardiogram reviewed PG Care Time/CCT Total # of Minutes Spent Total Time Spent with Patient: Total time spent is greater than 50% in coordination of care (as documented) at patient's floor/unit and/or counseling patient: Coding Level of Care Code 54513 SUB INP/OBS CARE 3/50MIN Diagnoses Ischemic stroke I63.9 Second degree AV block, Mobitz type I I44.1 Essential hypertension I10 Hypertension type: essential hypertension CKD (chronic kidney disease), stage IV N18.4 Elevated troponin R79.89 Chronic deep vein thrombosis (DVT) I82.509 Hypothyroidism (acquired) E03.9 GERD (gastroesophageal reflux disease) K21.9 Age-related osteoporosis with current pathological fracture with routine healing, subsequent encounter M80.00XD Osteoporosis type: age-related Presence of current pathological fracture: with current pathological fracture Encounter type: subsequent encounter Fracture healing: with routine healing Tremor R25.1 (3) HTN (hypertension) Hypertension type: essential hypertension Qualified Code(s): I10 - Essential (primary) hypertension (9) Osteoporosis Osteoporosis type: age-related Presence of current pathological fracture: with current pathological fracture Encounter type: subsequent encounter Fracture healing: with routine healing Qualified Code(s): M80.00XD - Age- related osteoporosis with current pathological fracture, unspecified site, subsequent encounter for fracture with routine healing
[2023-07-23] MEDS: ATORVASTATIN 40 MG TAB PO SCH (21:24)
[2023-07-24] MEDS: LEVOTHYROXINE SODIUM 88 MCG TABLET PO SCH (05:51)
[2023-07-24 07:01] LABS: Basophils # (auto) 0.03 K/uL (0.00-0.20); Basophils % (auto) 0.4 %; Eosinophils # (auto) 0.22 K/uL (0.00-0.50); Eosinophils % (auto) 2.6 %; Hemoglobin 10.7 g/dl (12.0-16.0); Immature Granulocytes # (auto) 0.03 K/uL (0.01-0.20); Immature Granulocytes % (auto) 0.4 %; Lymphocytes # (auto) 3.07 K/uL (1.20-3.40); Lymphocytes % (auto) 36.2 %; Mean Corpuscular Hemoglobin 31.8 pg (25.0-34.0); Mean Corpuscular Hgb Conc 31.5 g/dL (32.0-36.0); Mean Corpuscular Volume 101.2 fL (80.0-100.0); Mean Platelet Volume 10.4 fL (9.4-12.4); Monocytes # (auto) 0.66 K/uL (0.11-0.59); Monocytes % (auto) 7.8 %; Neutrophils # (auto) 4.48 K/uL (1.40-6.50); Neutrophils % (auto) 52.6 %; Platelet Count 306 K/uL (130-400); RDW Coefficient of Variation 14.7 % (11.5-14.5); RDW Standard Deviation 54.8 fL (36.4-46.3); Red Blood Count 3.36 M/uL (4.20-5.40); White Blood Count 8.49 K/ul (4.8-10.8)
[2023-07-24 07:08] LABS: BUN Creatinine Ratio 12.4 (10-20); Creatinine Clr Calc Pharmacy 21.8 ml/min; Est GFR (African American) 45.3 ml/min; Est GFR (Non-African American) 39.1 ml/min; Potassium 3.7 mmol/L (3.5-5.1)
[2023-07-24 07:21] LABS: Magnesium 0.9 mg/dl (1.7-2.4)
[2023-07-24] MEDS: MAGNESIUM SULFATE / D5W 1 GM/100 ML BAG IV SCH ×5 (07:44→19:18)
[2023-07-24] MEDS: CARBIDOPA/LEVODOP 10/100MG TAB PO SCH ×4 (07:53→20:21)
[2023-07-24] MEDS: APIXABAN 2.5 MG TAB PO SCH ×2 (07:53→20:22)
[2023-07-24] MEDS: DULoxetine HCL 30 MG CAP PO SCH (07:54)
[2023-07-24] MEDS: ADVANCED PROBIOTIC 1250 MG CAPSULE PO SCH (07:54)
[2023-07-24] MEDS: PANTOprazole 40 MG TAB PO SCH (07:55)
[2023-07-24] MEDS: ACETAMINOPHEN 325 MG TAB PO PRN ×2 (09:00→18:39)
[2023-07-24] MEDS ORDERED: MAGNESIUM OXIDE 400 MG TAB PO ONE (09:28)
[2023-07-24] MEDS: ASPIRIN 81 MG ECTAB PO SCH (10:28)
[2023-07-24] MEDS ORDERED: LORATADINE 10 MG TAB PO ONE (19:48)
--- NOTE | 2023-07-24 19:51 | Hospitalist Progress Note ---
Date of Service July 24, 2023 Assessment & Plan (1) Ischemic stroke: Plan: Presented with acute on chronic difficulty balancing. Significant worsening on the day of admission Brain MRI -shows several punctate right cerebellum and right temporal lobe subacute strokes likely cause of her symptoms-seems embolic in nature CT angiogram head and neck are negative Echocardiogram with bubble study performed and shows mild mitral stenosis but negative bubble Telemetry so far with Mobitz type I and blocked PACs but no atrial fibrillation or flutter-recommend 30-day event monitor after discharge Continue aspirin, high intensity statin-lipid panel is good Hemoglobin A1c normal, TSH in 05/2023 normal Blood pressures are controlled Started low-dose apixaban which would cover her for occult atrial fibrillation or flutter but is also for DVT prevention PT/OT consults recommending rehab Appreciate neurology and cardiology consultations Add on CLaritin (home med) for her sinus headache (2) Second degree AV block, Mobitz type I: Plan: Intermittent, holding home metoprolol and has now resolved Appreciate cardiology consultation Not likely the cause of her dizziness (3) Hypomagnesemia: Plan: severe, Mag level 0.9 replace with IV magnesium 5 grams and start po magnesium 400mg daily follow level in AM discontinuing PPI (4) HTN (hypertension): Plan: Blood pressures are controlled Holding home metoprolol for Mobitz 1 (5) CKD (chronic kidney disease), stage IV: Plan: Creatinine improved from admission down to 1.29 but is variable Renally dose medications and avoid nephrotoxins Follow BMP (6) Elevated troponin: Plan: No chest pain or shortness of breath to suggest ACS, troponin peaked at 88 No ischemic changes on ECG Echocardiogram without wall motion abnormalities Demand ischemia secondary to acute stroke (7) Chronic deep vein thrombosis (DVT): Plan: Restarted on Eliquis 2.5 mg p.o. BID-she is not having any ongoing bleeding issues and her previous bleeding issue was from ischemic colitis several years ago she thinks US venous doppler given off her usual Eliquis and bilateral leg pain worse than usual shows chronic DVT in the left lower extremity Monitor for any bleeding issues once on Eliquis (8) Hypothyroidism (acquired): Plan: TSH WNL May 2023, no need to repeat Continue levothyroxine (9) GERD (gastroesophageal reflux disease): Plan: Given severe hypomagnesemia and previous issues with hypomagnesemia, recommend stopping PPI -can add on pepcid if has GERD symptoms (10) Osteoporosis: Plan: Noted, on denosumab as outpatient (11) Tremor: Plan: Under neurology with no definitive diagnosis of Parkinson disease, continue her usual levodopa-carbidopa (12) Bacteriuria: Plan: UA collected on admission is contaminated with epis and now Ur cx is growing out ESBL E. coli She has no symptoms She was treated a few weeks ago with Augmentin however this typically would not be an optimal choice I believe despite the sensitivities showing it is sensitive to this Will defer treatment for now given asymptomatic but consult ID for further opinion Plan VTE prophylaxis -Eliquis Disposition -continued stay on PCU for telemetry monitoring, await rehab placement Admission and Anticipated Discharge Date Admission Date: July 22, 2023 Subjective Pt denies any urinary symptoms-no dysuria, no urinary frequency or urgency, no fevers or abd pain. Feels sh eis having her usual sinus headaches as she has not been getting her usual claritin.Feels her balance is a little better today-she walked to the bathroom and back. Tele with NSR rates 80-90s Physical Exam Constitutional: WD/WN, vitals as above Respiratory: normal respiratory effort, lungs clear to auscultation Cardiovascular: Rate/Rhythm: regular rate and regular rhythm Heart Sounds: no murmur Extremities: + edema (Trace edema in right greater than left legs) Gastrointestinal (Abdomen): normal bowel sounds, soft, nontender, no hepatosplenomegaly Neurologic: PERRL, EOMI, accommodation nl, no face palsy, no dysarthria Results & Data Results & Data Vital Signs (Past 12 Hours) Vital Signs Temp Pulse Pulse Resp BP Pulse Ox O2 Del Method 07/24/23 17:55 90 07/24/23 16:39 36.7 C 75 18 91/54 L 93 Room Air 07/24/23 12:01 36.4 C L 97 H 18 90/53 L 93 Room Air 07/24/23 08:11 36.5 C 97 H 19 101/63 92 Room Air 07/24/23 08:00 95 H Laboratory Results CBC, BMP, magnesium, Ur cx reviewed PG Care Time/CCT Total # of Minutes Spent Total Time Spent with Patient: Total time spent is greater than 50% in coordination of care (as documented) at patient's floor/unit and/or counseling patient: Coding Level of Care Code 68775 SUB INP/OBS CARE Diagnoses Ischemic stroke I63.9 Second degree AV block, Mobitz type I I44.1 Hypomagnesemia E83.42 Essential hypertension I10 Hypertension type: essential hypertension CKD (chronic kidney disease), stage IV N18.4 Elevated troponin R79.89 Chronic deep vein thrombosis (DVT) I82.509 Hypothyroidism (acquired) E03.9 GERD (gastroesophageal reflux disease) K21.9 Age-related osteoporosis with current pathological fracture with routine healing, subsequent encounter M80.00XD Encounter type: subsequent encounter Fracture healing: with routine healing Osteoporosis type: age-related Presence of current pathological fracture: with current pathological fracture Tremor R25.1 Bacteriuria R82.71 (4) HTN (hypertension) Hypertension type: essential hypertension Qualified Code(s): I10 - Essential (primary) hypertension (10) Osteoporosis Encounter type: subsequent encounter Fracture healing: with routine healing Osteoporosis type: age-related Presence of current pathological fracture: with current pathological fracture Qualified Code(s): M80.00XD - Age-related osteoporosis with current pathological fracture, unspecified site, subsequent en counter for fracture with routine healing
[2023-07-24] MEDS: MAGNESIUM OXIDE 400 MG TAB PO SCH (20:21)
[2023-07-24] MEDS: ATORVASTATIN 40 MG TAB PO SCH (20:22)
[2023-07-24] MEDS: DICLOFENAC SOD 1% GEL 100 GM TUBE EXT SCH (21:53)
[2023-07-25] MEDS: LEVOTHYROXINE SODIUM 88 MCG TABLET PO SCH (05:50)
[2023-07-25 07:04] LABS: Basophils # (auto) 0.05 K/uL (0.00-0.20); Basophils % (auto) 0.8 %; Eosinophils % (auto) 3.1 %; Hematocrit (blood only) 30.1 % (37.0-47.0); Immature Granulocytes # (auto) 0.02 K/uL (0.01-0.20); Immature Granulocytes % (auto) 0.3 %; Lymphocytes # (auto) 2.39 K/uL (1.20-3.40); Lymphocytes % (auto) 36.8 %; Mean Corpuscular Hemoglobin 32.4 pg (25.0-34.0); Mean Corpuscular Hgb Conc 33.2 g/dL (32.0-36.0); Mean Corpuscular Volume 97.4 fL (80.0-100.0); Mean Platelet Volume 10.4 fL (9.4-12.4); Monocytes # (auto) 0.56 K/uL (0.11-0.59); Monocytes % (auto) 8.6 %; Neutrophils # (auto) 3.28 K/uL (1.40-6.50); Neutrophils % (auto) 50.4 %; Platelet Count 287 K/uL (130-400); RDW Standard Deviation 53.4 fL (36.4-46.3); Red Blood Count 3.09 M/uL (4.20-5.40)
[2023-07-25 07:35] LABS: BUN Creatinine Ratio 10.8 (10-20); Calcium 8.6 mg/dl (8.6-10.3); Creatinine Clr Calc Pharmacy 20.2 ml/min; Est GFR (African American) 41.4 ml/min; Est GFR (Non-African American) 35.7 ml/min; Magnesium 2.3 mg/dl (1.7-2.4); Potassium 3.8 mmol/L (3.5-5.1)
[2023-07-25] MEDS: LORATADINE 10 MG TAB PO SCH (07:50)
[2023-07-25] MEDS: CARBIDOPA/LEVODOP 10/100MG TAB PO SCH ×4 (07:50→20:23)
[2023-07-25] MEDS: DULoxetine HCL 30 MG CAP PO SCH (07:50)
[2023-07-25] MEDS: ASPIRIN 81 MG ECTAB PO SCH (07:50)
[2023-07-25] MEDS: ADVANCED PROBIOTIC 1250 MG CAPSULE PO SCH (07:50)
[2023-07-25] MEDS: APIXABAN 2.5 MG TAB PO SCH ×2 (07:51→20:24)
[2023-07-25] MEDS: DICLOFENAC SOD 1% GEL 100 GM TUBE EXT SCH ×4 (07:51→20:24)
--- NOTE | 2023-07-25 11:00 | Cardiology Progress Note ---
Date of Service July 25, 2023 Assessment & Plan (1) Abnormal ECG: Plan: -telemetry notes blocked PACs, Mobitz type 1 second-degree AV block, and periods of 2-1 AV conduction (likely Wenckebach). -no evidence of Mobitz type 2 second-degree AV block. -remains off metoprolol. -reviewed with Dr. Garcia who agrees with our assessment. (2) Stroke-like symptoms: Plan: -brain MRI raises the possibility of an embolic phenomena. -she has no known history of paroxysmal atrial fibrillation. -continue to monitor while hospitalized. -since she will be on Eliquis indefinitely (chronic DVTs), question the utility of an event monitor. (3) Elevated troponin: Plan: -very minor elevation of no clinical concern. -no evidence of acute coronary syndrome. (4) Mitral valve disorder: Plan: -mild mitral stenosis noted on current echocardiogram. -monitor with yearly surveillance echocardiograms. Admission and Anticipated Discharge Date Admission Date: July 22, 2023 Subjective The patient is resting comfortably in bed without complaints of chest pain, dyspnea, or palpitations. Physical Exam Physical Exam: In general is this is a well-developed well-nourished white female no acute distress. HEENT exam is negative. Neck is supple with full carotid upstrokes. There are carotid bruits. Jugular is pressure is flat at 90. There is no thyromegaly. Cardiovascular exam reveals a regular rhythm with distant heart sounds. No obvious murmurs. Lungs are clear without rales rhonchi wheezes. Abdomen is soft without bruits. Extremities reveal intact radial artery pulses bilaterally. There is no peripheral edema. Results & Data Vital Signs (Past 12 Hours) Vital Signs Temp Pulse Resp BP Pulse Ox O2 Del Method 07/25/23 07:46 36.5 C 88 18 109/67 91 Room Air 07/25/23 03:07 36.5 C 82 20 111/69 92 Room Air 07/25/23 01:06 95 Room Air 07/24/23 23:14 36.6 C 89 20 101/65 91 Room Air Diagnostic Findings property assessment monitor notes sinus. There were several brief episodes of 2-1 AV conduction (likely Wenckebach). PG Care Time/CCT Total # of Minutes Spent Total Time Spent with Patient: Total time spent is greater than 50% in coordination of care (as documented) at patient's floor/unit and/or counseling patient: Coding Level of Care Code 57739 SUB INP/OBS CARE 350MIN Diagnoses Abnormal ECG R94.31 Stroke-like symptoms R29.90 Elevated troponin R79.89 Mitral valve disorder I05.9
[2023-07-25] MEDS: ACETAMINOPHEN 325 MG TAB PO PRN (12:37)
[2023-07-25] MEDS: MAGNESIUM OXIDE 400 MG TAB PO SCH (20:23)
[2023-07-25] MEDS: ATORVASTATIN 40 MG TAB PO SCH (20:24)
--- NOTE | 2023-07-25 22:02 | Hospitalist Progress Note ---
Date of Service July 25, 2023 Assessment & Plan (1) Ischemic stroke: Plan: Presented with acute on chronic difficulty balancing. Significant worsening on the day of admission Brain MRI -shows several punctate right cerebellum and right temporal lobe subacute strokes likely cause of her symptoms-seems embolic in nature CT angiogram head and neck are negative Echocardiogram with bubble study performed and shows mild mitral stenosis but negative bubble Telemetry so far with Mobitz type I and occasional type 2, and blocked PACs but no atrial fibrillation or flutter-recommend 30-day event monitor after discharge Continue aspirin, high intensity statin-lipid panel is good Hemoglobin A1c normal, TSH in 05/2023 normal Blood pressures are controlled Started low-dose apixaban which would cover her for occult atrial fibrillation or flutter but is also for DVT prevention PT/OT consults recommending rehab Appreciate neurology and cardiology consultations (2) Second degree AV block, Mobitz type I: Plan: Intermittent, holding home metoprolol and has now resolved Appreciate cardiology consultation Not likely the cause of her dizziness (3) Hypomagnesemia: Plan: severe, Mag level 0.9 replaced with IV magnesium 5 grams and started po magnesium 400mg daily Mag level today normal follow level in AM discontinued PPI (4) HTN (hypertension): Plan: Blood pressures are controlled Holding home metoprolol for Mobitz 1 (5) CKD (chronic kidney disease), stage IV: Plan: Creatinine improved from admission down to 1.3 but is variable Renally dose medications and avoid nephrotoxins Follow BMP (6) Elevated troponin: Plan: No chest pain or shortness of breath to suggest ACS, troponin peaked at 88 No ischemic changes on ECG Echocardiogram without wall motion abnormalities Demand ischemia secondary to acute stroke (7) Chronic deep vein thrombosis (DVT): Plan: Restarted on Eliquis 2.5 mg p.o. BID-she is not having any ongoing bleeding issues and her previous bleeding issue was from ischemic colitis several years ago she thinks US venous doppler given off her usual Eliquis and bilateral leg pain worse than usual shows chronic DVT in the left lower extremity Monitor for any bleeding issues once on Eliquis (8) Hypothyroidism (acquired): Plan: TSH WNL May 2023, no need to repeat Continue levothyroxine (9) GERD (gastroesophageal reflux disease): Plan: Given severe hypomagnesemia and previous issues with hypomagnesemia, recommend stopping PPI -can add on pepcid if has GERD symptoms-none so far (10) Osteoporosis: Plan: Noted, on denosumab as outpatient (11) Tremor: Plan: Follows w/ neurology with no definitive diagnosis of Parkinson disease, continue her usual levodopa-carbidopa (12) Bacteriuria: Plan: UA collected on admission is contaminated with epis and now Ur cx is growing out ESBL E. coli She has no symptoms She was treated a few weeks ago with Augmentin however this typically would not be an optimal choice I believe despite the sensitivities showing it is sensitive to this Discussed with ID who concurs that this is asymptomatic bacteriuria and does not need to be treated Plan VTE prophylaxis -Eliquis Disposition -continued stay on PCU for telemetry monitoring, awaiting rehab placement insurance auth and if denied, plans to go home with home health Admission and Anticipated Discharge Date Admission Date: July 22, 2023 Subjective Pt reports ongoing headache but improved somewhat since taking Claritin. Not having much dizziness with going to the bathroom and back. No heartburn since stopping her PPI. Tele with Mobitz 1 and 2 type blocks, , otherwise 1st degree AVB, rates 60-80s Physical Exam Constitutional: WD/WN, vitals as above Respiratory: normal respiratory effort, lungs clear to auscultation Cardiovascular: Rate/Rhythm: regular rate and regular rhythm Heart Sounds: no murmur Extremities: + edema (Trace edema in right greater than left legs) Gastrointestinal (Abdomen): normal bowel sounds, soft, nontender, no hepatosplenomegaly Neurologic: PERRL, EOMI, accommodation nl, no face palsy, no dysarthria Results & Data Results & Data Vital Signs (Past 12 Hours) Vital Signs Temp Pulse Resp BP Pulse Ox O2 Del Method 07/25/23 20:09 36.7 C 98 H 20 98/60 L 93 Room Air 07/25/23 15:13 36.3 C L 92 H 18 111/66 92 Room Air 07/25/23 11:31 36.6 C 99 H 18 100/66 94 Room Air Laboratory Results CBC, BMP, magnesium reviewed PG Care Time/CCT Total # of Minutes Spent Total Time Spent with Patient: Total time spent is greater than 50% in coordination of care (as documented) at patient's floor/unit and/or counseling patient: Coding Level of Care Code 48564 SUB INP/OBS CARE 2/35MIN Diagnoses Ischemic stroke I63.9 Second degree AV block, Mobitz type I I44.1 Hypomagnesemia E83.42 Essential hypertension I10 Hypertension type: essential hypertension CKD (chronic kidney disease), stage IV N18.4 Elevated troponin R79.89 Chronic deep vein thrombosis (DVT) I82.509 Hypothyroidism (acquired) E03.9 GERD (gastroesophageal reflux disease) K21.9 Age-related osteoporosis with current pathological fracture with routine healing, subsequent encounter M80.00XD Osteoporosis type: age-related Presence of current pathological fracture: with current pathological fracture Encounter type: subsequent encounter Fracture healing: with routine healing Tremor R25.1 Bacteriuria R82.71 (4) HTN (hypertension) Hypertension type: essential hypertension Qualified Code(s): I10 - Essential (primary) hypertension (10) Osteoporosis Osteoporosis type: age-related Presence of current pathological fracture: with current pathological fracture Encounter type: subsequent encounter Fracture healing: with routine healing Qualified Code(s): M80.00XD - Age- related osteoporosis with current pathological fracture, unspecified site, subsequent encounter for fracture with routine healing
[2023-07-26] MEDS: LEVOTHYROXINE SODIUM 88 MCG TABLET PO SCH (04:00)
[2023-07-26] MEDS: ACETAMINOPHEN 325 MG TAB PO PRN (04:00)
[2023-07-26 06:10] LABS: Basophils # (auto) 0.05 K/uL (0.00-0.20); Basophils % (auto) 0.7 %; Eosinophils # (auto) 0.19 K/uL (0.00-0.50); Eosinophils % (auto) 2.7 %; Hemoglobin 10.2 g/dl (12.0-16.0); Immature Granulocytes # (auto) 0.03 K/uL (0.01-0.20); Immature Granulocytes % (auto) 0.4 %; Lymphocytes # (auto) 2.84 K/uL (1.20-3.40); Mean Corpuscular Hemoglobin 32.6 pg (25.0-34.0); Mean Corpuscular Hgb Conc 32.9 g/dL (32.0-36.0); Mean Platelet Volume 10.5 fL (9.4-12.4); Monocytes # (auto) 0.64 K/uL (0.11-0.59); Monocytes % (auto) 9.2 %; Neutrophils # (auto) 3.18 K/uL (1.40-6.50); Platelet Count 301 K/uL (130-400); RDW Coefficient of Variation 15.2 % (11.5-14.5); RDW Standard Deviation 55.2 fL (36.4-46.3); Red Blood Count 3.13 M/uL (4.20-5.40); White Blood Count 6.93 K/ul (4.8-10.8)
[2023-07-26 06:30] LABS: BUN Creatinine Ratio 12.5 (10-20); Calcium 8.7 mg/dl (8.6-10.3); Creatinine Clr Calc Pharmacy 17.7 ml/min; Est GFR (African American) 34.9 ml/min; Est GFR (Non-African American) 30.1 ml/min; Magnesium 1.7 mg/dl (1.7-2.4); Potassium 3.9 mmol/L (3.5-5.1)
[2023-07-26] MEDS: CARBIDOPA/LEVODOP 10/100MG TAB PO SCH ×4 (08:41→20:50)
[2023-07-26] MEDS: ADVANCED PROBIOTIC 1250 MG CAPSULE PO SCH (08:41)
[2023-07-26] MEDS: APIXABAN 2.5 MG TAB PO SCH ×2 (08:41→20:50)
[2023-07-26] MEDS: DICLOFENAC SOD 1% GEL 100 GM TUBE EXT SCH ×4 (08:41→20:49)
[2023-07-26] MEDS: ASPIRIN 81 MG ECTAB PO SCH (08:41)
[2023-07-26] MEDS: DULoxetine HCL 30 MG CAP PO SCH (08:41)
[2023-07-26] MEDS: LORATADINE 10 MG TAB PO SCH (09:50)
[2023-07-26] MEDS ORDERED: POLYETHYLENE (MIRALAX) 17 GM PACK PO PRN (11:27)
[2023-07-26] MEDS: DOCUSATE SODIUM/SENNA 50/8.6MG TAB PO SCH (11:38)
--- NOTE | 2023-07-26 17:40 | Hospitalist Progress Note ---
Date of Service July 26, 2023 Assessment & Plan (1) Ischemic stroke: Plan: Presented with acute on chronic difficulty balancing. 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 Eliquis for anticoagulation Continue aspirin, high intensity statin from home-lipid panel is good Hemoglobin A1c normal, TSH in 05/2023 normal Blood pressures are controlled Started low-dose apixaban which would cover her for both occult atrial fibrillation/flutter as well as for DVT prevention/history of chronic DVT PT/OT consults recommending rehab Appreciate neurology and cardiology consultations (2) Second degree AV block, Mobitz type I: Plan: Intermittent, discontinued home metoprolol and has now resolved Appreciate cardiology consultation Not likely the cause of her dizziness Can downgrade off telemetry (3) Hypomagnesemia: Plan: severe, Mag level 0.9 replaced with IV magnesium 5 grams and started po magnesium 400mg daily Mag level now remains normal follow level in AM discontinued PPI which may be contributing to this (4) HTN (hypertension): Plan: Blood pressures are controlled discontinued home metoprolol for Mobitz 1 (5) CKD (chronic kidney disease), stage IV: Plan: Creatinine improved from admission down to 1.3-1.6 but is variable and around her baseline Renally dose medications and avoid nephrotoxins Follow BMP (6) Elevated troponin: Plan: No chest pain or shortness of breath to suggest ACS, troponin peaked at 88 No ischemic changes on ECG Echocardiogram without wall motion abnormalities Demand ischemia secondary to acute stroke (7) Chronic deep vein thrombosis (DVT): Plan: Started on Eliquis 2.5 mg p.o. BID-she is not having any ongoing bleeding issues and her previous bleeding issue was from ischemic colitis several years ago she thinks She has had multiple DVTs in the past She previously was on Coumadin and had issues with variable INR She was not on any anticoagulation upon admission but was only taking an aspirin US venous doppler usual shows chronic DVT in the left lower extremity Monitor for any bleeding issues once on Eliquis-none so far, tolerating (8) Hypothyroidism (acquired): Plan: TSH WNL May 2023, no need to repeat Continue levothyroxine (9) GERD (gastroesophageal reflux disease): Plan: Given severe hypomagnesemia and previous issues with hypomagnesemia, recommend stopping PPI -can add on pepcid if has GERD symptoms-none so far (10) Osteoporosis: Plan: Noted, on denosumab as outpatient (11) Tremor: Plan: Follows w/ neurology with no definitive diagnosis of Parkinson disease, continue her usual levodopa-carbidopa (12) Bacteriuria: Plan: UA collected on admission is contaminated with epis and now Ur cx is growing out ESBL E. coli She has no symptoms She was treated a few weeks ago with Augmentin however this typically would not be an optimal choice I believe despite the sensitivities showing it is sensitive to this Discussed with ID who concurs that this is asymptomatic bacteriuria and does not need to be treated Constipation-no bowel movement in several days, add on senna/docusate and as needed MiraLAX Plan VTE prophylaxis -Eliquis Disposition -medically stable for discharge, downgrade to medical/surgical unit, awaiting rehab placement insurance auth and if denied or if she does not hear 1 where the other, plans to go home with home health on Saturday when she will have a caregiver that can come to the home I discussed her care with her daughter Almita at length on the phone on 07/26 Admission and Anticipated Discharge Date Admission Date: July 22, 2023 Subjective Patient having issues with constipation and requesting laxatives. Still having difficulty with balance with walking to the bathroom. She is tired of wearing the telemetry box as it pulls her gown down and she is okay with transferring off telemetry. No other new issues. Telemetry with sinus rhythm and first-degree AV block with some occasional second-degree heart block with 2-1 conduction rates in the 80s to 90s I discussed her care at length with her daughter on the phone. Physical Exam Constitutional: WD/WN, vitals as above Respiratory: normal respiratory effort, lungs clear to auscultation Cardiovascular: Rate/Rhythm: regular rate and regular rhythm Heart Sounds: no murmur Extremities: + edema (Trace edema in right greater than left legs) Gastrointestinal (Abdomen): normal bowel sounds, soft, nontender, no hepatosplenomegaly Neurologic: PERRL, EOMI, accommodation nl, no face palsy, no dysarthria Results & Data Results & Data Vital Signs (Past 12 Hours) Vital Signs Temp Pulse Resp BP Pulse Ox O2 Del Method 07/26/23 16:16 36.4 C L 102 H 18 108/58 L 94 Room Air 07/26/23 12:34 36.6 C 99 H 18 114/58 L 92 Room Air 07/26/23 08:00 36.5 C 77 16 128/69 93 Room Air Laboratory Results CBC, BMP, magnesium level reviewed PG Care Time/CCT Total # of Minutes Spent Total Time Spent with Patient: Total time spent is greater than 50% in coordination of care (as documented) at patient's floor/unit and/or counseling patient: Coding Level of Care Code 03190 SUB INP/OBS CARE 3/50MIN Diagnoses Ischemic stroke I63.9 Second degree AV block, Mobitz type I I44.1 Hypomagnesemia E83.42 Essential hypertension I10 Hypertension type: essential hypertension CKD (chronic kidney disease), stage IV N18.4 Elevated troponin R79.89 Chronic deep vein thrombosis (DVT) I82.509 Hypothyroidism (acquired) E03.9 GERD (gastroesophageal reflux disease) K21.9 Age-related osteoporosis with current pathological fracture with routine healing, subsequent encounter M80.00XD Encounter type: subsequent encounter Fracture healing: with routine healing Osteoporosis type: age-related Presence of current pathological fracture: with current pathological fracture Tremor R25.1 Bacteriuria R82.71 (4) HTN (hypertension) Hypertension type: essential hypertension Qualified Code(s): I10 - Essential (primary) hypertension (10) Osteoporosis Encounter type: subsequent encounter Fracture healing: with routine healing Osteoporosis type: age-related Presence of current pathological fracture: with current pathological fracture Qualified Code(s): M80.00XD - Age-related osteoporosis with current pathological fracture, unspecified site, subsequent encounter for fracture with routine healing
[2023-07-26] MEDS: MAGNESIUM OXIDE 400 MG TAB PO SCH (20:48)
[2023-07-26] MEDS: ATORVASTATIN 40 MG TAB PO SCH (20:48)
[2023-07-27] MEDS: LEVOTHYROXINE SODIUM 88 MCG TABLET PO SCH (06:17)
[2023-07-27 07:51] LABS: BUN Creatinine Ratio 13.8 (10-20); Calcium 9.2 mg/dl (8.6-10.3); Creatinine Clr Calc Pharmacy 17.7 ml/min; Est GFR (African American) 34.9 ml/min; Est GFR (Non-African American) 30.1 ml/min; Magnesium 1.5 mg/dl (1.7-2.4); Potassium 4.4 mmol/L (3.5-5.1)
[2023-07-27] MEDS: APIXABAN 2.5 MG TAB PO SCH ×2 (09:01→20:12)
[2023-07-27] MEDS: ADVANCED PROBIOTIC 1250 MG CAPSULE PO SCH (09:01)
[2023-07-27] MEDS: DOCUSATE SODIUM/SENNA 50/8.6MG TAB PO SCH (09:01)
[2023-07-27] MEDS: DULoxetine HCL 30 MG CAP PO SCH (09:01)
[2023-07-27] MEDS: CARBIDOPA/LEVODOP 10/100MG TAB PO SCH ×4 (09:01→20:14)
[2023-07-27] MEDS: LORATADINE 10 MG TAB PO SCH (09:01)
[2023-07-27] MEDS: ASPIRIN 81 MG ECTAB PO SCH (09:01)
[2023-07-27] MEDS: DICLOFENAC SOD 1% GEL 100 GM TUBE EXT SCH ×4 (09:02→20:10)
[2023-07-27] MEDS: ACETAMINOPHEN 325 MG TAB PO PRN ×2 (11:40→20:17)
--- NOTE | 2023-07-27 13:26 | Hospitalist Progress Note ---
Date of Service July 27, 2023 Assessment & Plan (1) Ischemic stroke: Plan: Presented with acute on chronic difficulty balancing. 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 for anticoagulation Continue aspirin, high intensity statin from home-lipid panel is good Hemoglobin A1c normal, TSH in 05/2023 normal Blood pressures are controlled Started low-dose apixaban which would cover her for both occult atrial fibrillation/flutter as well as for DVT prevention/history of chronic DVT PT/OT consults recommending rehab Appreciate neurology and cardiology consultations (2) Second degree AV block, Mobitz type I: Plan: Intermittent, discontinued home metoprolol and has now resolved Appreciate cardiology consultation Not likely the cause of her dizziness Can downgrade off telemetry (3) Hypomagnesemia: Plan: severe, Mag level 0.9 replaced with IV magnesium 5 grams and started po magnesium 400mg daily Mag level now remains normal follow level in AM discontinued PPI which may be contributing to this (4) HTN (hypertension): Plan: Blood pressures are controlled discontinued home metoprolol for Mobitz 1 (5) CKD (chronic kidney disease), stage IV: Plan: Creatinine improved from admission down to 1.3-1.6 but is variable and around her baseline Renally dose medications and avoid nephrotoxins Follow BMP (6) Elevated troponin: Plan: No chest pain or shortness of breath to suggest ACS, troponin peaked at 88 No ischemic changes on ECG Echocardiogram without wall motion abnormalities Demand ischemia secondary to acute stroke (7) Chronic deep vein thrombosis (DVT): Plan: Started on Eliquis 2.5 mg p.o. BID-she is not having any ongoing bleeding issues and her previous bleeding issue was from ischemic colitis several years ago she thinks She has had multiple DVTs in the past She previously was on Coumadin and had issues with variable INR She was not on any anticoagulation upon admission but was only taking an aspirin US venous doppler usual shows chronic DVT in the left lower extremity Monitor for any bleeding issues once on Eliquis-none so far, tolerating (8) Hypothyroidism (acquired): Plan: TSH WNL May 2023, no need to repeat Continue levothyroxine (9) GERD (gastroesophageal reflux disease): Plan: Given severe hypomagnesemia and previous issues with hypomagnesemia, recommend stopping PPI -can add on pepcid if has GERD symptoms-none so far (10) Osteoporosis: Plan: Noted, on denosumab as outpatient (11) Tremor: Plan: Follows w/ neurology with no definitive diagnosis of Parkinson disease, continue her usual levodopa-carbidopa (12) Bacteriuria: Plan: UA collected on admission is contaminated with epis and now Ur cx is growing out ESBL E. coli She has no symptoms She was treated a few weeks ago with Augmentin however this typically would not be an optimal choice I believe despite the sensitivities showing it is sensitive to this Discussed with ID who concurs that this is asymptomatic bacteriuria and does not need to be treated Plan VTE prophylaxis -Eliquis Disposition -medically stable for discharge, downgrade to medical/surgical unit, awaiting rehab placement insurance auth and if denied or if she does not hear 1 where the other, plans to go home with home health on Saturday when she will have a caregiver that can come to the home Admission and Anticipated Discharge Date Admission Date: July 22, 2023 Subjective Patient feels well. Denies chest pain or shortness of breath. Denies dizziness Review of Systems Review of Systems: All systems reviewed & are unremarkable except as noted in Subjective Physical Exam Physical Exam: General: Awake, conversant Heart: S1, S2/regular rate and rhythm, no murmur rubs or gallops Lungs: Clear to auscultation bilaterally. Normal effort Abdomen: Soft/nontender/nondistended. No hepatosplenomegaly Extremities: No clubbing/cyanosis. No edema Behavior: Appropriate, cooperative Results & Data Results & Data Vital Signs (Past 12 Hours) Vital Signs Temp Pulse Resp BP Pulse Ox O2 Del Method 07/27/23 07:32 36.6 C 92 H 16 127/81 92 Room Air PG Care Time/CCT Total # of Minutes Spent Total Time Spent with Patient: Total time spent is greater than 50% in coordination of care (as documented) at patient's floor/unit and/or counseling patient: Coding Level of Care Code 40766 SUB INP/OBS CARE Diagnoses Ischemic stroke I63.9 Second degree AV block, Mobitz type I I44.1 Hypomagnesemia E83.42 Essential hypertension I10 Hypertension type: essential hypertension CKD (chronic kidney disease), stage IV N18.4 Elevated troponin R79.89 Chronic deep vein thrombosis (DVT) I82.509 Hypothyroidism (acquired) E03.9 GERD (gastroesophageal reflux disease) K21.9 Age-related osteoporosis with current pathological fracture with routine healing, subsequent encounter M80.00XD Osteoporosis type: age-related Presence of current pathological fracture: with current pathological fracture Encounter type: subsequent encounter Fracture healing: with routine healing Tremor R25.1 Bacteriuria R82.71 (4) HTN (hypertension) Hypertension type: essential hypertension Qualified Code(s): I10 - Essential (primary) hypertension (10) Osteoporosis Osteoporosis type: age-related Presence of current pathological fracture: with current pathological fracture Encounter type: subsequent encounter Fracture healing: with routine healing Qualified Code(s): M80.00XD - Age- related osteoporosis with current pathological fracture, unspecified site, subsequent encounter for fracture with routine healing
[2023-07-27] MEDS: MAGNESIUM OXIDE 400 MG TAB PO SCH (20:14)
[2023-07-27] MEDS: ATORVASTATIN 40 MG TAB PO SCH (20:14)
[2023-07-28] MEDS: ACETAMINOPHEN 325 MG TAB PO PRN (04:20)
[2023-07-28] MEDS: LEVOTHYROXINE SODIUM 88 MCG TABLET PO SCH (04:20)
[2023-07-28] MEDS: CARBIDOPA/LEVODOP 10/100MG TAB PO SCH ×4 (07:56→19:45)
[2023-07-28] MEDS: ASPIRIN 81 MG ECTAB PO SCH (09:36)
[2023-07-28] MEDS: APIXABAN 2.5 MG TAB PO SCH ×2 (09:36→19:45)
[2023-07-28] MEDS: ADVANCED PROBIOTIC 1250 MG CAPSULE PO SCH (09:37)
[2023-07-28] MEDS: LORATADINE 10 MG TAB PO SCH (09:37)
[2023-07-28] MEDS: DICLOFENAC SOD 1% GEL 100 GM TUBE EXT SCH ×4 (09:37→19:46)
[2023-07-28] MEDS: DULoxetine HCL 30 MG CAP PO SCH (09:37)
[2023-07-28] MEDS: DOCUSATE SODIUM/SENNA 50/8.6MG TAB PO SCH (09:37)
[2023-07-28] MEDS: MAGNESIUM SULFATE / D5W 1 GM/100 ML BAG IV SCH ×2 (09:40→12:07)
--- NOTE | 2023-07-28 13:11 | Hospitalist Progress Note ---
Date of Service July 28, 2023 Assessment & Plan (1) Ischemic stroke: Plan: Presented with acute on chronic difficulty balancing. 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 The daughter wants to take her home with home health services. Appreciate neurology and cardiology consultations (2) Second degree AV block, Mobitz type I: Plan: Intermittent, discontinued home metoprolol and has now resolved Appreciate cardiology consultation Not likely the cause of her dizziness Can downgrade off telemetry (3) Hypomagnesemia: Plan: severe, Mag level 0.9 replaced with IV magnesium 5 grams and started po magnesium 400mg daily Mag level now remains normal Magnesium level is still low. Replete discontinued PPI which may be contributing to this (4) HTN (hypertension): Plan: Blood pressures are controlled discontinued home metoprolol for Mobitz 1 (5) CKD (chronic kidney disease), stage IV: Plan: Creatinine improved from admission down to 1.3-1.6 but is variable and around her baseline Renally dose medications and avoid nephrotoxins Follow BMP (6) Elevated troponin: Plan: No chest pain or shortness of breath to suggest ACS, troponin peaked at 88 No ischemic changes on ECG Echocardiogram without wall motion abnormalities Demand ischemia secondary to acute stroke (7) Chronic deep vein thrombosis (DVT): Plan: Started on Eliquis 2.5 mg p.o. BID-she is not having any ongoing bleeding issues and her previous bleeding issue was from ischemic colitis several years ago she thinks She has had multiple DVTs in the past She previously was on Coumadin and had issues with variable INR She was not on any anticoagulation upon admission but was only taking an aspirin US venous doppler usual shows chronic DVT in the left lower extremity Monitor for any bleeding issues once on Eliquis-none so far, tolerating (8) Hypothyroidism (acquired): Plan: TSH WNL May 2023, no need to repeat Continue levothyroxine (9) GERD (gastroesophageal reflux disease): Plan: Given severe hypomagnesemia and previous issues with hypomagnesemia, recommend stopping PPI -can add on pepcid if has GERD symptoms-none so far (10) Osteoporosis: Plan: Noted, on denosumab as outpatient (11) Tremor: Plan: Follows w/ neurology with no definitive diagnosis of Parkinson disease, continue her usual levodopa-carbidopa (12) Bacteriuria: Plan: UA collected on admission is contaminated with epis and now Ur cx is growing out ESBL E. coli She has no symptoms She was treated a few weeks ago with Augmentin however this typically would not be an optimal choice I believe despite the sensitivities showing it is sensitive to this Discussed with ID who concurs that this is asymptomatic bacteriuria and does not need to be treated Plan VTE prophylaxis -Eliquis Disposition -patient is going home with home health services. Her caregiver was not able to wait till the magnesium infusion was completed. Discharge canceled for today. Will discharge her tomorrow. Admission and Anticipated Discharge Date Admission Date: July 22, 2023 Subjective Patient feels well. Denies chest pain or shortness of breath. Spoke to daughter Almita Fountain on the phone to update her. Review of Systems Review of Systems: All systems reviewed & are unremarkable except as noted in Subjective Physical Exam Physical Exam: General: Awake, conversant Heart: S1, S2/regular rate and rhythm, no murmur rubs or gallops Lungs: Clear to auscultation bilaterally. Normal effort Abdomen: Soft/nontender/nondistended. No hepatosplenomegaly Extremities: No clubbing/cyanosis. No edema Behavior: Appropriate, cooperative Results & Data Results & Data Vital Signs (Past 12 Hours) Vital Signs Temp Pulse Resp BP Pulse Ox O2 Del Method 07/28/23 07:49 36.5 C 89 16 118/72 95 Room Air PG Care Time/CCT Total # of Minutes Spent Total Time Spent with Patient: Total time spent is greater than 50% in coordination of care (as documented) at patient's floor/unit and/or counseling patient: Coding Level of Care Code 30137 SUB INP/OBS CARE Diagnoses Ischemic stroke I63.9 Second degree AV block, Mobitz type I I44.1 Hypomagnesemia E83.42 Essential hypertension I10 Hypertension type: essential hypertension CKD (chronic kidney disease), stage IV N18.4 Elevated troponin R79.89 Chronic deep vein thrombosis (DVT) I82.509 Hypothyroidism (acquired) E03.9 GERD (gastroesophageal reflux disease) K21.9 Age-related osteoporosis with current pathological fracture with routine healing, subsequent encounter M80.00XD Osteoporosis type: age-related Presence of current pathological fracture: with current pathological fracture Encounter type: subsequent encounter Fracture healing: with routine healing Tremor R25.1 Bacteriuria R82.71 (4) HTN (hypertension) Hypertension type: essential hypertension Qualified Code(s): I10 - Essential (primary) hypertension (10) Osteoporosis Osteoporosis type: age-related Presence of current pathological fracture: with current pathological fracture Encounter type: subsequent encounter Fracture healing: with routine healing Qualified Code(s): M80.00XD - Age- related osteoporosis with current pathological fracture, unspecified site, subsequent encounter for fracture with routine healing
[2023-07-28] MEDS: ATORVASTATIN 40 MG TAB PO SCH (19:45)
[2023-07-28] MEDS: MAGNESIUM OXIDE 400 MG TAB PO SCH (19:46)
[2023-07-29] MEDS: LEVOTHYROXINE SODIUM 88 MCG TABLET PO SCH (05:40)
[2023-07-29] MEDS: ASPIRIN 81 MG ECTAB PO SCH (09:20)
[2023-07-29] MEDS: DULoxetine HCL 30 MG CAP PO SCH (09:20)
[2023-07-29] MEDS: DICLOFENAC SOD 1% GEL 100 GM TUBE EXT SCH (09:21)
[2023-07-29] MEDS: CARBIDOPA/LEVODOP 10/100MG TAB PO SCH (09:21)
[2023-07-29] MEDS: APIXABAN 2.5 MG TAB PO SCH (09:21)
[2023-07-29] MEDS: ADVANCED PROBIOTIC 1250 MG CAPSULE PO SCH (09:21)
[2023-07-29] MEDS: LORATADINE 10 MG TAB PO SCH (09:21)
[2023-07-29] MEDS: DOCUSATE SODIUM/SENNA 50/8.6MG TAB PO SCH (09:22)
--- NOTE | 2023-07-29 10:14 | Discharge Summary ---
Date of Service July 29, 2023 Admission HPI Per Admitting Provider Elyse Perez is an 78 year old female who presents to the ER due to inability to walk for months due to increasing weakness and dizziness. Losing track of time and more confused for the last 3 weeks. Appears more pale than usual per caregiver. Unclear from the patient trying to get a good timeline why she is here today. She notes her bilateral leg pain is worse than usual and appears correlated to current dizziness. She reports her dizziness is not lightheadedness or like the room spinning but more just feels unbalanced. Plan from neurology last admission was to get nerve conduction studies as an outpatient but she does not think she had these done. Her caregiver reports her balance today was just much worse than usual therefore decided to bring her to the ER. No respiratory, gastrointestinal or urinary infective symptoms. She notes feeling her mouth is very dry but reports eating and drinking ok without any choking. She notes with her current dentures she cannot chew foot well. She denies any one sided change in sensation, weakness, facial droop, change in vision, speech or hearing. She has been taking all her medications as prescribed although notes she is no longer on Eliquis since this was discontinued by her PCP as not felt to be needed at her last visit. Admission Exam Per Admitting Provider Constitutional: well developed; + not well nourished and no acute distress ENMT: Mouth: + dry oral mucous membranes Neck: trachea midline, no thyromegaly Respiratory: normal respiratory effort, lungs clear to auscultation Cardiovascular: RRR, no murmur, no edema Gastrointestinal (Abdomen): normal bowel sounds, soft, nontender, no hepatosplenomegaly Musculoskeletal: no cyanosis or clubbing, extremities motor strength 5/5 Skin: no rashes, warm and dry Neurologic: moves all extremities and awake; no focal motor deficits and not confused Motor/Sensory: + tremor; no pronator drift Cranial Nerves: PERRL, EOM intact bilaterally, normal facial strength, tongue midline, able to rotate head bilaterally, able to elevate shoulders bilaterally, no nystagmus and symmetric palate elevation Coordination: normal [id number] test Psychiatric: A+Ox3, euthymic affect Principal Diagnosis 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 Normal effort Abdomen: Soft/nontender/nondistended. No hepatosplenomegaly Extremities: No clubbing/cyanosis. No edema Behavior: Appropriate, cooperative Discharge Data Allergies Allergy/AdvReac Type Severity Reaction Status Date / Time nitrofurantoin Allergy Intermediate HIVES,ITCHI Verified 07/08/23 10:47 NG azithromycin [From Zithromax] Allergy HIVES Verified 07/08/23 10:47 tramadol AdvReac Mild nausea Verified 07/08/23 10:47 Consultations 07/22/23 13:31 ED Decision to Admit Stat 07/22/23 18:42 Consult Neurology Routine 07/22/23 19:34 Consult Cardiology Routine 07/26/23 23:14 Consult [facility] rn clinical resource Routine Ordered Studies 07/22/23 11:46 CT angio head wo/w Stat CT angio neck with con Stat 07/22/23 15:12 MRI Brain [MR brain wo con] Stat 07/22/23 22:04 US venous doppler LE BI Routine Hospital Course (1) Ischemic stroke: Presented with acute on chronic difficulty balancing. Significant worsening on the day of admission Brain MRI -shows several punctate right cerebellum and right temporal lobe subacute strokes likely cause of her symptoms-seems embolic in nature CT angiogram head and neck are negative except for less than 50% stenosis of LICA Echocardiogram with bubble study performed and shows mild mitral stenosis but negative bubble Telemetry so far with Mobitz type I and occasional type 2, and blocked PACs but no atrial fibrillation or flutter-recommend 30-day event monitor after discharge although would not pattern changer as she has already been placed on Eliquis for anticoagulation Continue aspirin, high intensity statin from home-lipid panel is good Hemoglobin A1c normal, TSH in 05/2023 normal Blood pressures are controlled Started low-dose apixaban which would cover her for both occult atrial fibrillation/flutter as well as for DVT prevention/history of chronic DVT PT/OT consults recommending rehab but her insurance denied it. The daughter wants to take her home with home health services. Appreciate neurology and cardiology consultations (2) Second degree AV block, Mobitz type I: Intermittent, discontinued home metoprolol and has now resolved Appreciate cardiology consultation Not likely the cause of her dizziness (3) Hypomagnesemia: severe, Mag level 0.9 replaced with IV magnesium 5 grams and started po magnesium 400mg daily Mag level now remains normal Magnesium level is still low. Replete discontinued PPI initially as thought to be may be contributing to hypomagnesemia. However this elderly patient is being discharged on Eliquis and will need some GI prophylaxis. Thus she is being discharged on PPI (4) HTN (hypertension): Blood pressures are controlled discontinued home metoprolol for Mobitz 1 (5) CKD (chronic kidney disease), stage IV: Creatinine improved from admission down to 1.3-1.6 but is variable and around her baseline Renally dose medications and avoid nephrotoxins Follow BMP (6) Elevated troponin: No chest pain or shortness of breath to suggest ACS, troponin peaked at 88 No ischemic changes on ECG Echocardiogram without wall motion abnormalities Demand ischemia secondary to acute stroke (7) Chronic deep vein thrombosis (DVT): Started on Eliquis 2.5 mg p.o. BID-she is not having any ongoing bleeding issues and her previous bleeding issue was from ischemic colitis several years ago she thinks She has had multiple DVTs in the past She previously was on Coumadin and had issues with variable INR She was not on any anticoagulation upon admission but was only taking an aspirin US venous doppler usual shows chronic DVT in the left lower extremity Monitor for any bleeding issues once on Eliquis-none so far, tolerating (8) Hypothyroidism (acquired): TSH WNL May 2023, no need to repeat Continue levothyroxine (9) GERD (gastroesophageal reflux disease): Given severe hypomagnesemia and previous issues with hypomagnesemia, PPI was initially stopped However since the patient is being discharged on Eliquis, PPI was resumed for GI prophylaxis. (10) Osteoporosis: Noted, on denosumab as outpatient (11) Tremor: Follows w/ neurology with no definitive diagnosis of Parkinson disease, continue her usual levodopa-carbidopa (12) Bacteriuria: UA collected on admission is contaminated with epis and now Ur cx is growing out ESBL E. coli She has no symptoms She was treated a few weeks ago with Augmentin however this typically would not be an optimal choice I believe despite the sensitivities showing it is sensitive to this Discussed with ID who concurs that this is asymptomatic bacteriuria and does not need to be treated Plan VTE prophylaxis -Eliquis Disposition -patient is going home with home health services. 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, likely embolic: Started on Eliquis, being discharged with a Holter monitor Second-degree AV block, Mobitz type I Hypomagnesemia Chronic DVT Demand ischemia Asymptomatic bacteriuria: Not treated Activity: As commented below Activity Comment: Per PT/OT recommendation Non-emergency contact: Primary Care Provider Call non-emergency contact if: you have any medication questions and your symptoms worsen Follow-up/Referrals: Katarina Peters DO [Primary Care Provider] - 08/01/23 10:00 am Diet: Heart Healthy Addtl Attending Provider Instructions: Advised to follow-up with PCP in 1 week Advised to note that you will be called for a Holter monitor to be arranged Advised to note that you have been started on a blood thinner to prevent further strokes Pending Studies at Discharge: No Stand-Alone Forms: My [facility] [employer] 2000, Medications to Prevent Stroke Medications and DC Order Prescriptions: New magnesium oxide 400 mg (241.3 mg magnesium) Tablet 400 mg PO HS 30 Days Qty: 30 0RF Continued calcium carbonate [Calcium 500] 500 mg calcium (1,250 mg) tablet,chewable 500 mg PO QAM pyridoxine (vitamin B6) 100 mg tablet 100 mg PO DAILY aspirin 81 mg tablet,delayed release (DR/EC) 81 mg PO QAM denosumab 60 mg/mL syringe 60 mg SQ Q6MO dexlansoprazole [Dexilant] 60 mg capsule,biphase delayed releas 60 mg PO QAM Qty: 90 3RF atorvastatin 80 mg tablet 80 mg PO HS Qty: 90 3RF albuterol sulfate [Ventolin HFA] 90 mcg/actuation HFA aerosol inhaler 2 puff inhalation QID PRN (Reason: shortness of breath or wheezing) Qty: 6.7 1RF duloxetine [Cymbalta] 30 mg capsule,delayed release(DR/EC) 30 mg PO DAILY Qty: 90 0RF carbidopa-levodopa 10-100 mg tablet 2 tab PO QID@0800,1200,1600,2000 30 Days Qty: 240 5RF fluticasone propionate 50 mcg/actuation spray,suspension 2 spray INTNAS QAM PRN (Reason: Allergy Symptoms) Qty: 16 3RF (DME) lancets [OneTouch Delica Lancets] 33 gauge misc See Rx Instructions .ROUTE .MEDSUPPLY Qty: 100 Rx Instructions: TEST ONCE DAILY. says she uses weekly (DME) OneTouch Ultra Blue Test Strip Strip See Rx Instructions .ROUTE .MEDSUPPLY Qty: 10 Rx Instructions: TEST ONCE DAILY. does PRN Eliquis 2.5 mg tablet 2.5 mg PO BID Qty: 180 0RF Advanced Probiotic 625 mg (10 billion cell) capsule 2 cap PO DAILY Qty: 180 0RF levothyroxine 88 mcg tablet 88 mcg PO DAILYBB albuterol sulfate 2.5 mg /3 mL (0.083 %) solution for nebulization 2.5 mg inhalation Q8H PRN (Reason: Shortness Of Breath Or Wheezing) hydrocortisone acetate [Anusol-HC] 25 mg suppository 25 mg KS BID PRN (Reason: Hemorrhoids) valacyclovir 500 mg tablet 500 mg PO UD PRN (Reason: breakout) Discontinued metoprolol succinate 50 mg tablet extended release 24 hr 50 mg PO QAM Qty: 90 3RF Rx Instructions: TAKE 1 TABLET BY MOUTH ONCE DAILY Discharge Orders: Discharge Order (Routine); Ordered 07/29/23 Ordered By: Bry Nicole Admission Data Admit Date/Time: 07/22/23 14:41 Attending Provider: Bry Nicole Admit Provider: Isidro Perry Primary Care Provider: Katarina Peters [facility]; Isidro Perry; Jose Luna; Christian Barros Jr; [place] Other Interventions: Discharge Summary Assessment (RN) Last Done: 07/29/23 10:23 Coding Level of Care Code 60275 INP/OBS DISCH >30 MIN Diagnoses Ischemic stroke I63.9 Second degree AV block, Mobitz type I I44.1 Hypomagnesemia E83.42 Essential hypertension I10 Hypertension type: essential hypertension CKD (chronic kidney disease), stage IV N18.4 Elevated troponin R79.89 Chronic deep vein thrombosis (DVT) I82.509 Hypothyroidism (acquired) E03.9 GERD (gastroesophageal reflux disease) K21.9 Age-related osteoporosis with current pathological fracture with routine healing, subsequent encounter M80.00XD Encounter type: subsequent encounter Fracture healing: with routine healing Osteoporosis type: age-related Presence of current pathological fracture: with current pathological fracture Tremor R25.1 Bacteriuria R82.71
== END 2023-07-29 10:57 | disposition home health service (06) | DRG 65 ==
LOC: ED 11:07 → EDINP 14:41 → SUATTDRO 14:41 → EDINP 16:18 → 4W 16:39 → 3W 07-26 22:49

== ENCOUNTER 2023-08-20 09:50 | Observation (INO) ==
--- NOTE | 2023-08-20 10:35 | Emergency Department Note ---
Impression & Plan Acute hypoxic respiratory failure, Interstitial lung disease, Fall, Weakness, UTI (urinary tract infection) ED Provider Note NAME: SOFYA COX AGE: 78 SEX: F : 1945 ARRIVES VIA: Ambulance INFORMANT: Patient ED PROVIDER(S): Gee Eaton DO CHIEF COMPLAINT: fall weak HPI: Patient is an 78-year-old female with a past medical history of ataxia, memory loss, hyponatremia, interstitial lung disease, atrial tachycardia who presents to the ER for fall. She notes her legs started shaking and she became very weak. She fell to the ground. She notes she fell onto her left leg. Denies any leg pain. She did not hit her head or neck. She does have a mild headache. No chest pain or shortness of breath. No dizziness or lightheadedness. No dysuria, urgency, or frequency. No other exacerbating or remitting factors. Majority of history is obtained from mirror silverer who was present at bedside and notes that she fell last night and called her son. He helped her to get up and she came in today as mirror silverer was able to convince her to come in. ADDITIONAL HISTORY OBTAINED: Per HPI Chronic Medical/Social Conditions Affecting Care: Per HPI PAST MEDICAL HISTORY:See Below PAST SURGICAL HISTORY:See Below FAMILY HISTORY:See Below SOCIAL HISTORY:See Below HOME MEDICATIONS:See Below ALLERGIES:See Below VITALS:See Below PHYSICAL EXAMINATION: GENERAL: alert, well appearing, well nourished, no distress, non-toxic HEAD: normal cephalic, atraumatic EYE EXAM: normal conjunctiva, PERRL and EOM's grossly intact OROPHARYNX: mucous membranes are moist NECK: supple, no nuchal rigidity, no adenopathy, non-tender CHEST: stable to compression anteriorly and posteriorly LUNGS: clear to auscultation. Normal chest wall mechanics HEART: no murmurs, S1 normal and S2 normal ABDOMEN: abdomen soft, non-tender, normo-active bowel sounds, no masses, no rebound or guarding. PELVIS: stable to compression anteriorly and posteriorly BACK: Back is symmetrical on inspection and there is no deformity, no midline tenderness, no CVA tenderness. UPPER EXTREMITIES: full active and passive range of motion of all joints without tenderness to palpation LOWER EXTREMITIES: full active and passive range of motion of all joints without tenderness to palpation NEURO EXAM: Normal sensorium, cranial nerves II-XII grossly intact, normal speech, no gross weakness of arms, no gross weakness of legs. GCS: 15. MEDICAL DECISION MAKING: Patient is an 78-year-old female who presents ER for above-stated complaint. IV was established blood work was obtained. Labs show no significant leukocytosis. Mild anemia 11. BMP along with LFTs bilirubin were unremarkable. Slightly low magnesium. Troponin was negative. UA consistent with UTI. Viral panel was negative. Patient had a heart monitor in place. Contacted [facility] and then noticed 2 episodes of normal sinus rhythm but no other abnormalities. They were contacted through our principal secretary. Patient remained on 2 L nasal cannula throughout her stay in the ER due to the hypoxia at 86% on room air. Do favor this is the likely cause of the weakness. The CTs of the head and cervical spine were unremarkable for any acute pathologies. These were performed due to the fall. Patient has no other complaints at this time. Discussed with hospitalist for further evaluation management treatment. Consults/Care Managements Discussions: Per [facility] Triage Nursing notes reviewed. Limited review of prior medical records performed Vital Signs: reviewed and remarkable for hypoxia Differential diagnosis: Differential diagnoses include major intracranial, cervical, spinal, thoracic, abdominal, pelvic and neurologic injury. Fracture, contusion, sprain, strain, laceration, abrasions included as well. ER treatment provided: See below Diagnostics interpreted by me include EKG and cardiac monitoring as listed below: -Cardiac Monitoring: An order was placed for continuous cardiac monitoring. The monitor shows a rate of 80 with sinus rhythm. -ECG: Sinus rhythm rate of 78 Normal axis No PVCs Slight elevation in lead II T wave inversion lead III QTc 430 No significant change from previous -Laboratory studies:Interpreted by me as stated above in MDM and shown below. Imaging studies: Xrays: As interpreted by me: Portable AP upright 1 view of the chest shows no focal infiltrate CTs show: CT head, cervical spine were unremarkable Procedures:none Critical Care: I have personally spent 32 minutes of critical care time in the direct management of this patient. This includes bedside care, interpretation of diagnostic studies, and testing, discussion with consultants, patient, and family members, and other required patient management activities. This 32 minutes is in excess of all separately billable procedures. Past Med/Surg History Medical History (Updated 08/20/23 @ 15:59 by Gee Eaton DO) Parkinsons disease History of ischemic stroke Second degree AV block, Mobitz type I Ischemic stroke Stroke-like symptoms Chronic deep vein thrombosis (DVT) Prediabetes Iron deficiency anemia Secondary hyperparathyroidism of renal origin Leg length discrepancy Acute kidney injury Ankle edema, bilateral Arthritis Asymptomatic menopausal state Blood glucose abnormal Cardiomyopathy Cholelithiasis Chronic GERD Chronic fatigue syndrome Chronic laryngitis Chronic pharyngitis Cigarette smoker motivated to quit Cough 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 Deep vein thrombosis of distal lower extremity Depression Dermatitis, eczematoid Diabetes mellitus (11/29/12) Dizziness Dyspnea on exertion Dysuria Gastropathy Hearing loss Hematuria, microscopic Herpes simplex Hoarseness Hyperglycemia Hypothyroidism Interstitial lung disease Ischemic colitis Laryngitis Lightheadedness Low back pain Lumbar spinal stenosis Muscle spasm NSTEMI (non-ST elevated myocardial infarction) Nasal dryness Nicotine dependence 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 Recurrent UTI Rib pain on right side SNHL (sensorineural hearing loss) Secondary hyperparathyroidism (of renal origin) Shortness of breath Solitary pulmonary nodule Subsequent non-ST elevation (NSTEMI) myocardial infarction Takotsubo syndrome Tendinitis of left rotator cuff Type 2 diabetes mellitus without complication Vertigo GERD (gastroesophageal reflux disease) Chronic kidney disease Hypothyroidism (acquired) Pneumonia Constipation GI bleed Chronic deep vein thrombosis of left lower extremity Sinusitis Hematuria Kidney stones Hyperlipidemia DVT (deep venous thrombosis) Osteopenia (11/29/12) Thyroid disease Compression fracture of lumbar vertebra Surgical History History of tubal ligation History of D&C History of Hx of colonoscopy Family History Mother Leukemia Hypertension Father Myocardial infarction Diabetes Other Family history non-contributory Denies family history of Ovarian cancer Prostate cancer Breast cancer Lung cancer Social History Smoking Status: Current some day smoker Tobacco Type: Cigarettes Age Started Using Tobacco: 17; Age Quit Using Tobacco: 73; packs per day: 1; Cigarettes Per Day: Only while driving; Second Hand Exposure: No; Do You Dip or Chew Tobacco: No; Hx Alcohol Use: No Hx Substance Use: Yes Last Used Substance: Unknown Preferred Language: Ivorian Communication Ability: Effective Visual Impairment: No Limitations Hearing Ability: Use of Hearing Aid Physical Meteorologist Required: No Beliefs That Will Affect Care: None marital status: Current Living Situation: Alone and Personal Care Facility Current Living Situation Comment: Has a caregiver current occupational status: retired 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 Safe at Home: Yes Childhood Exposure to Second-Hand Smoke: Yes caffeine: No Dental Care, Regularly: No Physical Activity Frequency: Does not Exercise Seatbelt Use: always Sunscreen Use: No Assistive Devices: Walker Allergies Allergies Allergy/AdvReac Type Severity Reaction Status Date / Time nitrofurantoin Allergy Intermediate HIVES,ITCHI Verified 08/02/23 10:37 NG azithromycin [From Zithromax] Allergy HIVES Verified 08/02/23 10:37 tramadol AdvReac Mild nausea Verified 08/02/23 10:37 Home Meds Home Medications Medication Instructions Recorded Confirmed denosumab 60 mg/mL subcutaneous 60 mg subcut Q6MO 02/25/19 08/20/23 syringe lancets 33 gauge (netFactor DelPermissionTV #100 ea 07/13/20 08/02/23 Lancets) blood sugar diagnostic (SceneDocuch #10 ea 12/08/21 08/02/23 Ultra Blue Test Strip) calcium carbonate 500 mg calcium 500 mg PO QAM 06/29/22 08/20/23 (1,250 mg) chewable tablet (Calcium 500) albuterol sulfate 2.5 mg/3 mL 2.5 mg inhalation Q8H PRN 01/09/23 08/20/23 (0.083 %) solution for nebulization Shortness Of Breath Or Wheezing hydrocortisone acetate 25 mg 25 mg MI BID PRN Hemorrhoids 01/09/23 08/20/23 rectal suppository (Anusol-HC) valacyclovir 500 mg tablet 500 mg PO HS breakout 07/30/23 08/20/23 Previous Rx's Medication Instructions Recorded albuterol sulfate 90 mcg/actuation 2 puff inhalation QID PRN 03/05/22 aerosol inhaler (Ventolin HFA) shortness of breath or wheezing #6.7 grams dexlansoprazole 60 mg 60 mg PO QAM #90 caps 01/25/23 capsule,biphase delayed release (Dexilant) atorvastatin 80 mg tablet 80 mg PO HS #90 tabs 02/12/23 fluticasone propionate 50 2 spray intranasal QAM PRN Allergy 03/01/23 mcg/actuation nasal Symptoms #16 grams spray,suspension L.acidop,casei,lactis,rham-B.lact,alana 2 cap PO DAILY #180 caps 06/04/23 625 mg (10 billion cell) capsule (Advanced Probiotic) apixaban 2.5 mg tablet (Eliquis) 2.5 mg PO BID #180 tabs 06/04/23 carbidopa 10 mg-levodopa 100 mg 2 tab PO QID@0800,1200,1600,2000 06/13/23 tablet 30 days #240 tabs duloxetine 30 mg capsule,delayed 30 mg PO DAILY #90 caps 07/08/23 release (Cymbalta) magnesium oxide 400 mg (241.3 mg 400 mg PO HS 1 month #30 tabs 07/28/23 magnesium) tablet levothyroxine 88 mcg tablet 88 mcg PO DAILYBB #90 tabs 08/05/23 Results & Data (ED) Vital Signs Vital Signs - 24 hr 08/20/23 09:53 08/20/23 10:00 08/20/23 10:09 Temperature 36.9 C Temperature Source Temporal Artery Scan Pulse Rate 88 Pulse Rate [Apical] 92 H Respiratory Rate 16 16 Respiratory Effort / Characteristics Non-Labored Spontaneous Respiratory Depth Normal Blood Pressure 108/57 L Blood Pressure Mean 74 Pulse Oximetry 89 L 96 86 L Oxygen Delivery Method Room Air Room Air Room Air Sepsis Recent Fever Within 48 Hours No Sepsis New/Unexplained Change in Mental Status N/A Sepsis Action Taken by Nursing No Action Required Oxygen Flow Rate - Titration 2 Pulse Oximetry Post Tiitration 98 08/20/23 10:13 Temperature Temperature Source Pulse Rate 80 Pulse Rate [Apical] Respiratory Rate Respiratory Effort / Characteristics Respiratory Depth Blood Pressure Blood Pressure Mean Pulse Oximetry Oxygen Delivery Method Sepsis Recent Fever Within 48 Hours Sepsis New/Unexplained Change in Mental Status Sepsis Action Taken by Nursing Oxygen Flow Rate - Titration Pulse Oximetry Post Tiitration Laboratory Data 08/20/23 10:40 08/20/23 10:40 Lab Results 08/20/23 Range/Units 10:40 WBC 6.16 (4.8-10.8) K/ul RBC 3.47 L (4.20-5.40) M/uL Hgb 11.2 L (12.0-16.0) g/dl Hct 34.9 L (37.0-47.0) % MCV 100.6 H (80.0-100.0) fL MCH 32.3 (25.0-34.0) pg MCHC 32.1 (32.0-36.0) g/dL RDW Std Deviation 58.4 H (36.4-46.3) fL RDW Coeff of Damien 15.9 H (11.5-14.5) % Plt Count 279 (130-400) K/uL MPV 9.9 (9.4-12.4) fL Immature Gran % (Auto) 0.3 % Neut % (Auto) 62.5 % Lymph % (Auto) 29.1 % Gilmer % (Auto) 6.2 % Eos % (Auto) 1.3 % Baso % (Auto) 0.6 % Neut # (Auto) 3.85 (1.40-6.50) K/uL Lymph # (Auto) 1.79 (1.20-3.40) K/uL Gilmer # (Auto) 0.38 (0.11-0.59) K/uL Eos # (Auto) 0.08 (0.00-0.50) K/uL Baso # (Auto) 0.04 (0.00-0.20) K/uL Immature Gran # (Auto) 0.02 (0.01-0.20) K/uL Sodium 136 (136-145) mmol/L Potassium 4.4 (3.5-5.1) mmol/L Chloride 100 (98-107) mmol/L Carbon Dioxide 30 (21-32) mmol/L Anion Gap 6 (3-11) BUN 18 (6-23) mg/dl Creatinine 1.34 H (0.6-1.2) mg/dl Est Cr Clr Drug Dosing Not Reportable Est GFR ( Amer) 43.3 ml/min Est GFR (Non-Af Amer) 37.3 ml/min BUN/Creatinine Ratio 13.4 (10-20) Glucose 104 H (70-99(Fasting)) mg/dl Calcium 8.6 (8.6-10.3) mg/dl Magnesium 1.5 L (1.7-2.4) mg/dl Total Bilirubin 0.4 (0.2-1.0) mg/dl AST 18 (13-39) U/L ALT 3 L (7-52) U/L Alkaline Phosphatase 79 (34-104) U/L Total Creatine Kinase 38 (26-192) U/L Troponin I High Sens 12.0 (0-14) pg/ml Total Protein 6.5 (6.0-8.3) gm/dl Albumin 3.5 (3.4-5.0) gm/dl Globulin 3.0 (2.5-4.0) gm/dl Albumin/Globulin Ratio 1.2 (0.9-2) Imaging Data Radiologist's Impression: Chest X-Ray 08/20/23 10:00 SINGLE VIEW CHEST CLINICAL HISTORY: Hypoxia FINDINGS: An AP, portable, upright chest radiograph is compared to study dated 07/22/2023. Correlation is made with chest CT dated 01/11/2023. An electronic device projects over the mediastinum. The heart is enlarged noting atherosclerotic calcification of the thoracic aorta. The pulmonary vasculature is noncongested. Emphysema and chronic interstitial thickening is similar to previous. Foci of parenchymal scarring are seen throughout both lungs. The lungs and pleural spaces are clear. No pneumothorax is seen. The skeletal structures are osteopenic. The degenerative change is noted in the shoulders and spine. There are chronic/healed left-sided rib fractures. IMPRESSION: Cardiomegaly and emphysema with no active disease in the chest. ACT 112: Negative or not required by law. Electronically signed by: Salo Morales M.D. 08/20/2023 10:[address] 08/20/23 10:31 CT cervical spine wo con CLINICAL HISTORY: fall TECHNIQUE: Multidetector row helical CT of the cervical spine was performed without administration of intravenous contrast. Coronal and sagittal reformations were obtained. Automated dose lowering techniques and/or adjustment according to patient size were utilized for this exam. Comparison: Comparison is made to CTA neck 05/22/2024 FINDINGS: No acute fractures or subluxations are identified. Degenerative changes are seen in the visualized spine. The alignment is normal. Biapical scarring is seen in the lungs. IMPRESSION: Degenerative changes without evidence of acute bony injury. ACT 112: Negative or not required by law. Electronically signed by: Jorge Tierney M.D. 08/20/2023 11:[address] 08/20/23 10:31 CT SCAN OF THE BRAIN WITHOUT IV CONTRAST CLINICAL HISTORY: Fall. COMPARISON STUDY: CT of the brain dated 07/22/2023. TECHNIQUE: Unenhanced axial CT scan of the brain is performed from the vertex to the skull base. A dose lowering technique was utilized adhering to the principles of ALARA. FINDINGS: Brain parenchyma: There is age-related involutional change noting moderate to advanced subcortical and periventricular microangiopathic disease. There is no hemorrhage, mass effect, or evidence of acute territorial ischemia by CT criteria. Naidu-white matter differentiation is preserved. No extra-axial fluid collection is seen. Ventricles, sulci, cisterns: Prominent secondary to involutional change. Intracranial vasculature: There is atherosclerotic calcification of the cavernous carotid and vertebral arteries. Calvarium: The skeletal structures are osteopenic. No depressed calvarial fracture is identified. Soft tissues: Surgical clips are partially visualized in the right upper neck/periauricular region Sinuses and mastoids: The visualized paranasal sinuses are clear. There is a small right mastoid effusion. The left mastoid air cells are well pneumatized. Orbits: The bony orbits are grossly intact. There are bilateral ocular lens implants. IMPRESSION: There is no hemorrhage, mass effect, or evidence of acute territorial ischemia by CT criteria. ACT 112: Negative or not required by law. Electronically signed by: Salo Morales M.D. 08/20/2023 11:03 AM Discharge Plan Visit Data Chief Complaint: Leg Weakness, Bilateral Stated Complaint: FREQUENT FALLS/DIFFICULTY AMBULATING ED Provider: Gee Eaton Discharge Problem: Acute hypoxic respiratory failure, Interstitial lung disease, Fall, Weakness, UTI (urinary tract infection) Discharge Instructions Interventions: ED Discharge Assessment Last Done: 08/20/23 15:13 Discharge Problem: Fall Qualifiers: Encounter type: initial encounter Qualified Code(s): W19.XXXA - Unspecified fall, initial encounter UTI (urinary tract infection) Qualifiers: Urinary tract infection type: acute cystitis Hematuria presence: with hematuria Qualified Code(s): N30.01 - Acute cystitis with hematuria
--- NOTE | 2023-08-20 10:47 | Electrocardiogram Report ---
Test Reason : Blood Pressure : / mmHG Vent. Rate : 078 BPM Atrial Rate : 078 BPM P-R Int : 188 ms QRS Dur : 088 ms QT Int : 378 ms P-R-T Axes : 042 -11 015 degrees QTc Int : 430 ms Normal sinus rhythm Possible Left atrial enlargement Inferior infarct , age undetermined Abnormal ECG When compared with ECG of 22-JUL-2023 14:34, TX interval has decreased Confirmed by Edmundo Salazar ([id number]) on 08/20/2023 10:47:50 AM Referred By: Confirmed By:Edmundo Salazar
[2023-08-20 10:59] LABS: Basophils # (auto) 0.04 K/uL (0.00-0.20); Basophils % (auto) 0.6 %; Eosinophils # (auto) 0.08 K/uL (0.00-0.50); Eosinophils % (auto) 1.3 %; Hematocrit (blood only) 34.9 % (37.0-47.0); Hemoglobin 11.2 g/dl (12.0-16.0); Immature Granulocytes # (auto) 0.02 K/uL (0.01-0.20); Immature Granulocytes % (auto) 0.3 %; Lymphocytes # (auto) 1.79 K/uL (1.20-3.40); Lymphocytes % (auto) 29.1 %; Mean Corpuscular Hemoglobin 32.3 pg (25.0-34.0); Mean Corpuscular Hgb Conc 32.1 g/dL (32.0-36.0); Mean Corpuscular Volume 100.6 fL (80.0-100.0); Mean Platelet Volume 9.9 fL (9.4-12.4); Monocytes # (auto) 0.38 K/uL (0.11-0.59); Monocytes % (auto) 6.2 %; Neutrophils # (auto) 3.85 K/uL (1.40-6.50); Neutrophils % (auto) 62.5 %; Platelet Count 279 K/uL (130-400); RDW Coefficient of Variation 15.9 % (11.5-14.5); RDW Standard Deviation 58.4 fL (36.4-46.3); Red Blood Count 3.47 M/uL (4.20-5.40); White Blood Count 6.16 K/ul (4.8-10.8)
--- NOTE | 2023-08-20 11:05 | CT Scan Report ---
CT SCAN OF THE BRAIN WITHOUT IV CONTRAST CLINICAL HISTORY: Fall. COMPARISON STUDY: CT of the brain dated 07/22/2023. TECHNIQUE: Unenhanced axial CT scan of the brain is performed from the vertex to the skull base. A do se lowering technique was utilized adhering to the principles of ALARA. FINDINGS: Brain parenchyma: There is age-related involutional change noting moderate to advanced subcortical an d periventricular microangiopathic disease. There is no hemorrhage, mass effect, or evidence of acute territorial ischemia by CT criteria. Naidu-white matter differentiation is preserved. No extra-axial fluid collection is seen. Ventricles, sulci, cisterns: Prominent secondary to involutional change. Intracranial vasculature: There is atherosclerotic calcification of the cavernous carotid and vertebr al arteries. Calvarium: The skeletal structures are osteopenic. No depressed calvarial fracture is identified. Soft tissues: Surgical clips are partially visualized in the right upper neck/periauricular region Sinuses and mastoids: The visualized paranasal sinuses are clear. There is a small right mastoid effu [place]. The left mastoid air cells are well pneumatized. Orbits: The bony orbits are grossly intact. There are bilateral ocular lens implants. IMPRESSION: There is no hemorrhage, mass effect, or evidence of acute territorial ischemia by CT seth nogueira. ACT 112: Negative or not required by law. Electronically signed by: Salo Morales M.D. 08/20/2023 11:03 AM
[2023-08-20 11:16] LABS: Anion Gap 6 (3-11); BUN Creatinine Ratio 13.4 (10-20); Blood Urea Nitrogen 18 mg/dl (6-23); Calcium 8.6 mg/dl (8.6-10.3); Carbon Dioxide 30 mmol/L (21-32); Chloride 100 mmol/L (98-107); Est GFR (African American) 43.3 ml/min; Est GFR (Non-African American) 37.3 ml/min; Glucose 104 mg/dl (70-99(Fasting)); Potassium 4.4 mmol/L (3.5-5.1); Sodium 136 mmol/L (136-145)
--- NOTE | 2023-08-20 11:21 | CT Scan Report ---
CT cervical spine wo con CLINICAL HISTORY: fall TECHNIQUE: Multidetector row helical CT of the cervical spine was performed without administration of intravenous contrast. Coronal and sagittal reformations were obtained. Automated dose lowering techn iques and/or adjustment according to patient size were utilized for this exam. Comparison: Comparison is made to CTA neck 05/22/2024 FINDINGS: No acute fractures or subluxations are identified. Degenerative changes are seen in the visualized sp ine. The alignment is normal. Biapical scarring is seen in the lungs. IMPRESSION: Degenerative changes without evidence of acute bony injury. ACT 112: Negative or not required by law. Electronically signed by: Jorge Tierney M.D. 08/20/2023 11:19 AM
[2023-08-20 11:40] LABS: Alanine Aminotransferase 3 U/L (7-52); Albumin Globulin Ratio 1.2 (0.9-2); Albumin Level 3.5 gm/dl (3.4-5.0); Alkaline Phosphatase 79 U/L (34-104); Aspartate Aminotransferase 18 U/L (13-39); Bilirubin,Total 0.4 mg/dl (0.2-1.0); Creatine Kinase 38 U/L (26-192); Total Protein 6.5 gm/dl (6.0-8.3)
--- NOTE | 2023-08-20 11:41 | History & Physical Report ---
Date of Service August 20, 2023 Assessment & Plan (1) Fall: Plan: Unwitnessed fall on 08/19 while patient was using walker and trying to sit on the couch; fell onto her left leg; no LOC or head strike Ambulates with a walker at baseline History of Parkinson's; tremor/ataxia No leukocytosis; afebrile Head CT NAF Cervical spine CT NAF Magnesium ordered, pending UA ordered, pending CXR with cardiomegaly and emphysema, but no active disease Acetaminophen as needed for pain control PT/OT consulted A.m. CBC, mag (2) Parkinsons disease: Plan: Continue Sinemet (3) Chronic deep vein thrombosis (DVT): Plan: On Eliquis (4) History of ischemic stroke: Plan: Recent brain MRI on 07/22/2023 revealed 3 punctate foci of restricted diffusion in the right cerebellar hemisphere (acute to subacute infarcts) Eliquis (as above) (5) Second degree AV block, Mobitz type I: Plan: EKG on arrival revealed NSR at 78 bpm; QTc 430 During her last hospital visit telemetry showed Mobitz type I and occasional ty pe II with blocked PACs Patient currently in the process of wearing a Holter monitor x 30 days Continuous telemetry while inpatient (6) Megaloblastic anemia: Plan: Hgb 11.2 on arrival MCV >100 Vitamin B12 level on 07/08/2023 was WNL at 538 Folate level was WNL on 04/11/2023 Chronic; continue monitor with daily CBC (7) Diet-controlled diabetes mellitus: Plan: A1c 5.4% on 07/23/2023 Not currently on medications Diet controlled T2DM diet BSG ACHS Adjust regimen as needed This appears to be a historical diagnosis that has resolved (8) CKD (chronic kidney disease), stage IV: Plan: BUN 18, creatinine 1.34, EGFR 37.3 on arrival Avoid nephrotoxic agents for possible (9) Hypomagnesemia: Plan: Magnesium 1.5 on arrival Magnesium sulfate 1 g IV x 2 Recheck a.m. mag (10) Hypothyroidism (acquired): Plan: Continue levothyroxine (11) Interstitial lung disease: Plan: Chronic; noted Plan Disposition: Admit to [facility] telemetry Full code T2DM diet, soft bite sized VTE PPx: On Eliquis History of Present Illness Chief Complaint: Leg weakness, bilateral Primary Care Provider: DO Brittany Russo is an 78-year-old female with PMH of interstitial lung disease, Parkinson's disease, CKD, HTN, osteoporosis, tremor, ataxia, memory loss, GERD, hypothyroid, PAD, and ischemic stroke. She presented via BLS for a fall on the evening of 08/19. Patient reports that her legs gave out from under her when she was moving from one chair to another. She was using a walker at the time, and went to sit back on the couch, but fell down on her left leg. No LOC. No head strike. Patient reports she has been feeling dizzy/lightheaded with walking for the past 2 days. She has a history of Parkinson's disease, and reports she has been very shaky recently when she sits for too long and then decides to stand up. This is her first time following in over a year. She endorses pain in her left leg from her knee to toes at present, that has been constant; rated 5/10. She says it is okay when she is walking around on it. Patient's international trade analyst (Sima) is at the bedside and provides additional history. [employer] helps to manage medications, and reports that she took all of her regular morning medications today. Also reports that this was an unwitnessed fall, and that the patient called her grandson who came over that evening; patient did not want to come into the hospital that evening, but was convinced by the international trade analyst to come in on the morning of 08/20. No facial droop, slurred speech, or unilateral deficits noted; patient reports that both her legs gave out, not just 1. Patient currently has a Holter monitor, and is supposed to have the patch change every 5 days; she is supposed to wear until the . She endorses infrequent tobacco cigarette use (once in a while); denies recent alcohol use. She took all of her regular morning medications, but notes that she was told to stop her aspirin recently. She reports good compliance with her Eliquis. Patient is mildly hypotensive at 108/57 at time of admission; SpO2 94% on RA. ROS: Patient endorses headaches (chronic), dizzy/lightheaded with walking x 2 days, productive cough (green sputum production) x 2 days, nausea, dry heaves (ongoing), constipation, tremor, and lower extremity weakness/pain. Patient denies fever, chills, nightsweats, changes in vision/hearing, fainting, chest pain, chest palpitations, SOB, pleuritic CP, hemoptysis, abdominal pain, vomiting, diarrhea, urinary s/s, blood in urine/stool, Allergies Allergy/AdvReac Type Severity Reaction Status Date / Time nitrofurantoin Allergy Intermediate HIVES,ITCHI Verified 08/02/23 10:37 NG azithromycin [From Zithromax] Allergy HIVES Verified 08/02/23 10:37 tramadol AdvReac Mild nausea Verified 08/02/23 10:37 Home Medications Medication Instructions Recorded Confirmed Type denosumab 60 mg/mL subcutaneous 60 mg subcut Q6MO 02/25/19 08/20/23 History syringe lancets 33 gauge ([employer] #100 ea 07/13/20 08/02/23 History Lancets) blood sugar diagnostic ([employer] #10 ea 12/08/21 08/02/23 History Ultra Blue Test Strip) albuterol sulfate 90 mcg/actuation 2 puff inhalation QID PRN 03/05/22 08/20/23 Rx aerosol inhaler (Ventolin HFA) shortness of breath or wheezing #6.7 grams calcium carbonate 500 mg calcium 500 mg PO QAM 06/29/22 08/20/23 History (1,250 mg) chewable tablet (Calcium 500) albuterol sulfate 2.5 mg/3 mL 2.5 mg inhalation Q8H PRN 01/09/23 08/20/23 History (0.083 %) solution for nebulization Shortness Of Breath Or Wheezing hydrocortisone acetate 25 mg 25 mg MD BID PRN Hemorrhoids 01/09/23 08/20/23 History rectal suppository (Anusol-HC) dexlansoprazole 60 mg 60 mg PO QAM #90 caps 01/25/23 08/20/23 Rx capsule,biphase delayed release (Dexilant) atorvastatin 80 mg tablet 80 mg PO HS #90 tabs 02/12/23 08/20/23 Rx fluticasone propionate 50 2 spray intranasal QAM PRN Allergy 03/01/23 08/20/23 Rx mcg/actuation nasal Symptoms #16 grams spray,suspension L.acidop,casei,lactis,rham-B.lact,alana 2 cap PO DAILY #180 caps 06/04/23 08/20/23 Rx 625 mg (10 billion cell) capsule (Advanced Probiotic) apixaban 2.5 mg tablet (Eliquis) 2.5 mg PO BID #180 tabs 06/04/23 08/20/23 Rx carbidopa 10 mg-levodopa 100 mg 2 tab PO QID@0800,1200,1600,2000 06/13/23 08/20/23 Rx tablet 30 days #240 tabs duloxetine 30 mg capsule,delayed 30 mg PO DAILY #90 caps 07/08/23 08/20/23 Rx release (Cymbalta) magnesium oxide 400 mg (241.3 mg 400 mg PO HS 1 month #30 tabs 07/28/23 08/20/23 Rx magnesium) tablet valacyclovir 500 mg tablet 500 mg PO HS breakout 07/30/23 08/20/23 History levothyroxine 88 mcg tablet 88 mcg PO DAILYBB #90 tabs 08/05/23 08/20/23 Rx Past Med/Surg History Medical History (Updated 08/20/23 @ 15:59 by Gee Eaton DO) Parkinsons disease History of ischemic stroke Second degree AV block, Mobitz type I Ischemic stroke Stroke-like symptoms Chronic deep vein thrombosis (DVT) Prediabetes Iron deficiency anemia Secondary hyperparathyroidism of renal origin Leg length discrepancy Acute kidney injury Ankle edema, bilateral Arthritis Asymptomatic menopausal state Blood glucose abnormal Cardiomyopathy Cholelithiasis Chronic GERD Chronic fatigue syndrome Chronic laryngitis Chronic pharyngitis Cigarette smoker motivated to quit Cough 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 Deep vein thrombosis of distal lower extremity Depression Dermatitis, eczematoid Diabetes mellitus (11/29/12) Dizziness Dyspnea on exertion Dysuria Gastropathy Hearing loss Hematuria, microscopic Herpes simplex Hoarseness Hyperglycemia Hypothyroidism Interstitial lung disease Ischemic colitis Laryngitis Lightheadedness Low back pain Lumbar spinal stenosis Muscle spasm NSTEMI (non-ST elevated myocardial infarction) Nasal dryness Nicotine dependence 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 Recurrent UTI Rib pain on right side SNHL (sensorineural hearing loss) Secondary hyperparathyroidism (of renal origin) Shortness of breath Solitary pulmonary nodule Subsequent non-ST elevation (NSTEMI) myocardial infarction Takotsubo syndrome Tendinitis of left rotator cuff Type 2 diabetes mellitus without complication Vertigo GERD (gastroesophageal reflux disease) Chronic kidney disease Hypothyroidism (acquired) Pneumonia Constipation GI bleed Chronic deep vein thrombosis of left lower extremity Sinusitis Hematuria Kidney stones Hyperlipidemia DVT (deep venous thrombosis) Osteopenia (11/29/12) Thyroid disease Compression fracture of lumbar vertebra Surgical History History of tubal ligation History of D&C History of Hx of colonoscopy Family History Mother Leukemia Hypertension Father Myocardial infarction Diabetes Other Family history non-contributory Denies family history of Ovarian cancer Prostate cancer Breast cancer Lung cancer Social History Smoking Status: Current some day smoker Tobacco Type: Cigarettes Age Started Using Tobacco: 17; Age Quit Using Tobacco: 73; packs per day: 1; Cigarettes Per Day: Only while driving; Second Hand Exposure: No; Do You Dip or Chew Tobacco: No; Hx Alcohol Use: No Hx Substance Use: Yes Last Used Substance: Unknown Preferred Language: Nepali Communication Ability: Effective Visual Impairment: No Limitations Hearing Ability: Use of Hearing Aid Quality Controller Required: No Beliefs That Will Affect Care: None marital status: Current Living Situation: Alone and Personal Care Facility Current Living Situation Comment: Has a caregiver current occupational status: retired 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 Safe at Home: Yes Childhood Exposure to Second-Hand Smoke: Yes caffeine: No Dental Care, Regularly: No Physical Activity Frequency: Does not Exercise Seatbelt Use: always Sunscreen Use: No Assistive Devices: Walker Review of Systems Review of Systems: See HPI above Physical Exam Physical Exam: General: no acute distress; pleasant affect; anxious; tremors; non-toxic appearing; frail; cooperative; SpO2 94% on RA HEENT: normocephalic, atraumatic; no scleral icterus; tearing from right eye; PERRLA; moist mucus membrane; vision and hearing intact Neck: supple; no JVD; no lymphadenopathy; trachea midline Skin: warm, dry without signs of tenting; no cyanosis; no rashes, bruising, lesions, or erythema noted CV: chest wall NTP; RRR; S1/S2 normal; no murmurs/rubs/gallops; pulses intact and symmetric at radial, DP, and PT Lungs: no acute respiratory distress; symmetrical chest wall expansion; clear breath sounds across all lung rees w/o adventitious sounds; no wheezing ABD: Soft, NTP; BS present; no rebound/guarding MSK: no tics or fasciculations; no edema noted in the LEs b/l, nonerythematous (RLE is slightly more swollen than LLE, which patient reports is chronic); patient demonstrates somewhat decreased strength 3/5 when attempting to lift the legs off the bed from hip; patient is able to bend left knee without pain; left knee mildly TTP; no bruising or swelling along the left leg Neuro: A&Ox3; normal mood and affect; fluent speech; no facial droop; some lip twitching; sensation intact in the UEs, LEs, and face b/l Results & Data Results & Data Vital Signs (Past 12 Hours) Vital Signs Temp Pulse Pulse Resp BP Pulse Ox O2 Del Method 08/20/23 10:13 80 08/20/23 10:09 86 L Room Air 08/20/23 10:00 92 H 16 96 Room Air 08/20/23 09:53 36.9 C 88 16 108/57 L 89 L Room Air Laboratory Results Abnormal lab results 08/20/23 Range/Units 10:40 RBC 3.47 L (4.20-5.40) M/uL Hgb 11.2 L (12.0-16.0) g/dl Hct 34.9 L (37.0-47.0) % MCV 100.6 H (80.0-100.0) fL RDW Std Deviation 58.4 H (36.4-46.3) fL RDW Coeff of Damien 15.9 H (11.5-14.5) % Creatinine 1.34 H (0.6-1.2) mg/dl Glucose 104 H (70-99(Fasting)) mg/dl ALT 3 L (7-52) U/L Diagnostic Findings Chest X-Ray 08/20/23 10:00 SINGLE VIEW CHEST CLINICAL HISTORY: Hypoxia FINDINGS: An AP, portable, upright chest radiograph is compared to study dated 07/22/2023. Correlation is made with chest CT dated 01/11/2023. An electronic device projects over the mediastinum. The heart is enlarged noting atherosclerotic calcification of the thoracic aorta. The pulmonary vasculature is noncongested. Emphysema and chronic interstitial thickening is similar to previous. Foci of parenchymal scarring are seen throughout both lungs. The lungs and pleural spaces are clear. No pneumothorax is seen. The skeletal structures are osteopenic. The degenerative change is noted in the shoulders and spine. There are chronic/healed left-sided rib fractures. IMPRESSION: Cardiomegaly and emphysema with no active disease in the chest. ACT 112: Negative or not required by law. Electronically signed by: Salo Morales M.D. 08/20/2023 10:[address] 08/20/23 10:31 CT cervical spine wo con CLINICAL HISTORY: fall TECHNIQUE: Multidetector row helical CT of the cervical spine was performed without administration of intravenous contrast. Coronal and sagittal reformations were obtained. Automated dose lowering techniques and/or adjustment according to patient size were utilized for this exam. Comparison: Comparison is made to CTA neck 05/22/2024 FINDINGS: No acute fractures or subluxations are identified. Degenerative changes are seen in the visualized spine. The alignment is normal. Biapical scarring is seen in the lungs. IMPRESSION: Degenerative changes without evidence of acute bony injury. ACT 112: Negative or not required by law. Electronically signed by: Jorge Tierney M.D. 08/20/2023 11:[address] 08/20/23 10:31 CT SCAN OF THE BRAIN WITHOUT IV CONTRAST CLINICAL HISTORY: Fall. COMPARISON STUDY: CT of the brain dated 07/22/2023. TECHNIQUE: Unenhanced axial CT scan of the brain is performed from the vertex to the skull base. A dose lowering technique was utilized adhering to the principles of ALARA. FINDINGS: Brain parenchyma: There is age-related involutional change noting moderate to advanced subcortical and periventricular microangiopathic disease. There is no hemorrhage, mass effect, or evidence of acute territorial ischemia by CT criteria. Naidu-white matter differentiation is preserved. No extra-axial fluid collection is seen. Ventricles, sulci, cisterns: Prominent secondary to involutional change. Intracranial vasculature: There is atherosclerotic calcification of the cavernous carotid and vertebral arteries. Calvarium: The skeletal structures are osteopenic. No depressed calvarial fracture is identified. Soft tissues: Surgical clips are partially visualized in the right upper neck/periauricular region Sinuses and mastoids: The visualized paranasal sinuses are clear. There is a small right mastoid effusion. The left mastoid air cells are well pneumatized. Orbits: The bony orbits are grossly intact. There are bilateral ocular lens implants. IMPRESSION: There is no hemorrhage, mass effect, or evidence of acute territorial ischemia by CT criteria. ACT 112: Negative or not required by law. Electronically signed by: Salo Morales M.D. 08/20/2023 11:03 AM Code Status & VTE Plan Code Status Full code VTE Prophylaxis Plan VTE Prophylaxis will be ordered: Yes Supervising Physician Co-Signing Physician Notes I personally saw and examined the patient. I independently reviewed the labs, EKG, imaging, problem list, medication list, past medical history and family history. I verified all machado points and agree with Kade Justice PA-C with the following exceptions and/or additions: 78 year old female presents to the ER following a fall. She reports her shaking lower extremities led her to falling. This is ongoing dizziness since her cerebellar stroke from last admission, no acute worsening. O/E Alert and orientated x3, no unilateral focal neurological deficit, HS RRR, no murmurs, Chest CTAB, Abdo SNT A/P Fall - suspect combination of recent cerebellar stroke and her Parkinsons. Likely need for rehab/PT/OT. Consider neurology re-evaluation for her Parkinsons if there medications can be optimized. Asymptomatic bacteruria - not current UTI symptoms, follow up urine culture. Previously growing ESBL E. coli. Otherwise as above PG Care Time/CCT Total # of Minutes Spent Total Time Spent with Patient: Total time spent is greater than 50% in coordination of care (as documented) at patient's floor/unit and/or counseling patient: [place] [id number] INT INP/OBS CARE 2MIN Patient Type Established Medical Decision Making Moderate Complexity Diagnoses Fall W19.XXXA Parkinsons disease G20.A1 Chronic deep vein thrombosis (DVT) I82.509 History of ischemic stroke Z86.73 Second degree AV block, Mobitz type I I44.1 Megaloblastic anemia D53.1 Diet-controlled diabetes mellitus E11.9 CKD (chronic kidney disease), stage IV N18.4 Hypomagnesemia E83.42 Hypothyroidism (acquired) E03.9 Interstitial lung disease J84.9
[2023-08-20 13:10] LABS: Magnesium 1.5 mg/dl (1.7-2.4)
[2023-08-20 13:55] LABS: Influenza A virus by PCR Negative (Neg); Influenza B virus by PCR Negative (Neg); RSV by PCR Negative (Neg); SARS CoV2 RNA(COVID-19) Ceph NEGATIVE (Negative)
[2023-08-20] MEDS ORDERED: GLUCAGON FOR INJ 1 MG VIAL SQ PRN (15:13)
[2023-08-20] MEDS ORDERED: ALBUTEROL 0.083% NEBU SOLN 3 ML VIAL INH PRN (15:13)
[2023-08-20] MEDS ORDERED: FLUTICASONE PROPIONATE NA SPR 16 GM BTL PRN (15:13)
[2023-08-20] MEDS ORDERED: HYDROCORTISONE ACETATE 25 MG SUPP PR PRN (15:13)
[2023-08-20] MEDS ORDERED: DEXTROSE 50% 50 ML SYRINGE IV PRN (15:13)
[2023-08-20] MEDS ORDERED: ALBUTEROL HFA 8 GM INHALER INH PRN (15:13)
[2023-08-20] MEDS ORDERED: ONDANSETRON INJ 2 MG/ML 2 ML VIAL IV PRN (15:13)
[2023-08-20] MEDS ORDERED: GLUCOSE 10 TAB/TUBE PO PRN (15:13)
[2023-08-20] MEDS ORDERED: GLUCOSE 40% GEL 15 GM TUBE PO PRN (15:13)
[2023-08-20] MEDS ORDERED: CARBOHYDRATES FOR HYPOGLYCEMIA PO PRN (15:13)
[2023-08-20 15:35] LABS: Appearance Urine Cloudy (Clear); Bacteria Urine Automated 3+ (Negative); Bilirubin Urine Negative (Negative); Blood Urine Negative (Negative); Cast Urine Automated 0 /lpf (0-5); Color Urine Yellow; Glucose Urine UA Negative (Negative); Ketones Urine Negative (Negative); Leukocyte Esterase Urine 2+ (Negative); Nitrite Urine Negative (Negative); Protein Urine Trace (Negative); RBC Urine Automated 0-4 /hpf (0-4); Specific Gravity Urine 1.015 (1.000-1.030); Urobilinogen Urine Negative (Negative); WBC Urine Automated >30 /hpf (0-5)
--- OUTSIDE RECORDS SUMMARY | 2023-08-20 15:35 | External Medical Summary | Summary of Care ---
Author Name Unknown Organization [facility] Address [address] [facility] [place] [address] Phone [phone] Care Team Providers Care Stereoptic Projection Topographer Name Role Phone Thang Lakhani MD Primary Care Provider Reason for Visit * Reason Onset Date Comments Appointment 08/06/2023 DEXA SCAN-[facility] Encounter Details Date Type Department Care Team (Late st Contact Info) Description 08/06/2023 Telephone Rheumatology [facility] [email or web address] [place] [address] Shelia Padilla CRNP [address] [place] [address] Appointment (DEXA SCAN-[facility]) Allergies Active Allergy Reactions Criticality Noted Date Comments Nitrofurantoin 12/22/2013 Azithromycin Dihydrate 12/22/2013 documented as of this encounter (statuses as of 08/06/2023) Medications Medication Sig Dispensed Refills Start Date End Date Status SYNTHROID 88 MCG OR TABS 1 tab in am 0 Active Aspirin 81 MG Tablet Take 1 Tablet by mouth in the morning. 0 Active Denosumab 60 MG/ML Subcutaneous Solution Inject 60 mg under the skin once. 0 Active Fluticasone Propionate, Inhal, 100 MCG/BLIST diskus inhaler Inhale 1 Puff by mouth in the morning and 1 Puff before bedtime. 0 Active Calcium Carb-Cholecalcifero l 600-400 MG-UNIT Oral Tablet Start: 03/28/17 13:37:00, 1 tab, PO, qPM 0 03/28/2017 Active Senna Plus 50-8.6 MG Oral Capsule (Sennosides-Docusat e Sodium) 2 tab, Tab, Oral, BID PRN, 0 Refill(s), Constipation 0 04/21/2017 Active Acetaminophen 500 MG Oral Tablet (Tylenol) 500 mg = 1 tab, Tab, Oral, q4hr PRN, 0 Refill(s), Other (see comment) 0 04/21/2017 Active Atorvastatin Calcium 80 MG Oral Tablet (Lipitor) 1 Tablet. 0 10/07/2018 Active Dexlansoprazole 60 MG Oral Capsule Delayed Release (Dexilant) TAKE 1 CAPSULE DAILY 1/2 HOUR BEFORE BREAKFAST 0 05/22/2018 Active Metoprolol Succinate ER 50 MG Oral Tablet Extended Release 24 Hour 50 mg, 1 tab, Tab-ER, Oral, Daily, 30 tab, 0 Refill(s), Print Requisition 0 03/28/2017 Active Vitamin B-6 50 MG Oral TabletIndications:V itamin B6 deficiency,Mixed action and resting tremor Take 1 tab 2 times a day for 2 weeks, then 1/day 60 Tablet 3 04/10/2022 Active Xarelto 10 MG Oral Tablet 0 07/03/2022 Active valACYclovir HCl 500 MG Oral Tablet (Valtrex) 0 07/09/2022 Active Carbidopa-Levodopa 10-100 MG Oral Tablet (Sinemet)Indication s:Parkinson disease Add 1/2 tab every 3 days up to 1.5 tabs 3 times a day. 90 Tablet 3 12/31/2022 Active Hospital, Clinic, or Other Facility Administered Medication Ordered Dose Route Frequency Start Date End Date Status Denosumab (Prolia) subcut inj 60 mgIndications:Senile osteoporosis 60 mg SC [id number] 08/01/2023 07/26/2024 Active documented as of this encounter (statuses as of 08/06/2023) Active Problems Problem Noted Date Diagnosed Date CKD (chronic kidney disease) stage 4, GFR 15-29 ml/min 11/19/2018 ADVANCE DIRECTIVE INFORMATION 10/01/2011 Overview: Pt interested in info on this. Given to pt. Made aware to bring in if completed for scanning. She verbalized understanding. LYMPHOMA MIXED CELL TYPE,FOLLICULR( Head / Face / Neck) 03/23/2008 Senile osteoporosis Vertebral fracture, osteoporotic Hypothyroidism Overview: Hypothyroidism Dyslipidemia, goal LDL below 160 Overview: Hypercholesterolemia documented as of this encounter (statuses as of 08/06/2023) Resolved Problems Problem Noted Date Diagnosed Date Resolved Date Kidney disease, chronic, sta ge III (GFR 30-59 ml/min) 01/12/2010 11/19/2018 Overview: Per CKD Protocol, #1 ADVANCE DIRECTIVE INFORMATION 03/23/2008 03/23/2008 Overview: Pt does not have advance directive or living will currently, gave pamphlet of information. documented as of this encounter (statuses as of 08/06/2023) Immunizations Name Administration Dates Next Due Pneumococcal Polysaccharide PPV23 (Pneumovax) Season Influenza, Quad, PF, Adjuvanted, 65+ Yrs, IM (FLUAD) 03/04/2023 Seasonal Influenza, PF, 6 M & above, IM , (FluLaval or Fluzone) 05/08/2020 documented as of this encounter Social History Tobacco Use Types Packs/Day Years Used Date Smoking Tobacco: Some Days Cigarettes 0.3 20 Smokeless Tobacco: Never Comments:1 cig/week as of Alcohol Use Standard Drinks/Week Comments No 0 (1 standard drink = 0.6 oz pur e alcohol) Sex and Gender Information Value Date Recorded Sex Assigned at Not on file Gender Identity Not on file Sexual Orientation Not on file Job Start Date Occupation Industry Not on file Not on file Not on file documented as of this encounter Miscellaneous Notes * Telephone Encounter - Rafa Armijo OSA - 08/06/2023 3:13 PM EST pt is scheduled at [facility] ([facility]) on Saturday12/23/2023 at 9:30 am. I spoke to pt. sheis aware. I mailed a copy of the appt with ph # in case she needs to change it. * Telephone Encounter - Rafa Armijo OSA - 08/06/2023 2:29 PM EST Dexa ordered 08/02/2023. I spoke to Elyse today 08/06. She stated she wanted the Dexa done at [facility].I faxed the order. Will call them to get an appt. Pt has a caregiver from 8am to 1pm. documented in this encounter Plan of Treatment Upcoming Encounters Date Type Department Care Team (Late st Contact Info) Description 08/27/2023 11:20 AM EST Office Visit Neurology, [place] [address] [place] [id number] Ramon Holloway MD [address] [place] [address] 02/07/2024 11:20 AM EDT Office Visit Neurology, [place] [address] [place] [phone] Ramon Holloway MD [address] [place] [address] Health Maintenance Due Date Last Done Comments Depression Screening 1955 Albumin/Creatinine Ratio 1961 Nephrology Referral 1961 PTH 1961 Phosphate 1961 DTaP,Tdap,and Td Vaccines (1 - Tdap) 1962 Hepatitis B (1 of 3 - Risk 3-dose series) 2003 Hgb 03/28/2010 03/28/2009, 10/23, 07/20/2008, Additional history exists Zoster Vaccines (1 of 2) 07/06/2015 05/11/2015 TSH 12/14/2021 12/14/2020, 04/14/2020 GFR 09/18/2022 03/21/2022, 08/22, 12/14/2020, Additional history exists Influenza Vaccine (FLU shot) Completed 03/04/2023, 05/08/2020 COVID-19 Vaccine Completed 04/10/2023, , 05/01/2021, Additional history exists Pneumococcal Vaccine: 65+ Years Completed 05/23/2023, 04/07/2020, 11/26/2019, Additional history exists GARDASIL-HPV IMMUNIZATION SERIES Aged Out No longer eligible based on patient's age to complete this topic MENINGOCOCCAL (MENACTRA/MENVEO) Aged Out No longer eligible based on patient's age to complete this topic documented as of this encounter Medical Devices Not on filedocumented as of this encounter Care Teams Stereoptic Projection Topographer Relationship Specialty Start Date End Date Thang Lakhani MD [address] [address] PCP - General Internal Medicine 12/27/14 documented as of this encounter
--- OUTSIDE RECORDS SUMMARY | 2023-08-20 15:35 | External Medical Summary | Summary of Care ---
Author Name Unknown Organization [facility] Address [address] [place] [id number] Phone [phone] Care Team Providers Care Home Care Rn Name Role Phone Thang Lakhani MD Primary Care Provider [phone] Reason for Visit * Reason Onset Date Comments Appointment 08/06/2023 DEXA SCAN[facility] Encounter Details Date Type Department Care Team (Late st Contact Info) Description 08/06/2023 Telephone Rheumatology [facility] [address] [place] [address] Shelia Padilla CRNP [address] [place] [address] Appointment (DEXA [facility]AN[facility]) Allergies Active Allergy Reactions Criticality Noted Date [...] inj 60 mgIndications:Senile osteoporosis 60 mg SC [id number] 08/01/2023 07/26/2024 Active documented as of this [...] stated she wanted the Dexa done at [facility].I faxed the order. Will call them to get an appt. Pt has a caregiver from 8am to 1pm. documented in this encounter Plan of Treatment Upcoming Encounters Date Type Department Care Team (Late st Contact Info) Description 08/27/2023 11:20 AM EST Office Visit Neurology, [place] [address] [place] [address] Ramon Holloway MD [address], [place] [id number] 02/07/2024 11:20 AM EDT Office Visit Neurology, [place] [address] [place] [address] Ramon Holloway MD [address] [place] [address] Health Maintenance Due Date Last Done Comments [...] filedocumented as of this encounter Care Teams Home Care Rn Relationship Specialty Start Date End Date Thang Lakhani MD [address] [place] [address] PCP - General Internal Medicine 12/27/14 documented as of this encounter
[2023-08-20] MEDS: MAGNESIUM SULFATE / D5W 1 GM/100 ML BAG IV SCH (16:13)
[2023-08-20] MEDS: CARBIDOPA/LEVODOP 10/100MG TAB PO SCH (17:33)
[2023-08-20] MEDS: LACTATED RINGER'S 1,000 ML IV ONE (19:55)
[2023-08-20] MEDS: APIXABAN 2.5 MG TAB PO SCH (20:12)
[2023-08-20] MEDS: valACYclovir HCL 500 MG TABLET PO SCH (20:12)
[2023-08-20] MEDS: MAGNESIUM OXIDE 400 MG TAB PO SCH (20:13)
[2023-08-20] MEDS: ATORVASTATIN 40 MG TAB PO SCH (20:13)
[2023-08-20] MEDS ORDERED: DEXTROMETHORPHAN POLYMR COMPLX 30 MG/5 ML UDP PO PRN (21:48)
[2023-08-20] MEDS: POLYETHYLENE (MIRALAX) 17 GM PACK PO SCH (23:08)
[2023-08-21] MEDS: LEVOTHYROXINE SODIUM 88 MCG TABLET PO SCH (06:25)
[2023-08-21] MEDS: PANTOprazole 40 MG TAB PO SCH (07:26)
[2023-08-21] MEDS: MAGNESIUM OXIDE 400 MG TAB PO SCH (07:26)
[2023-08-21] MEDS: DULoxetine HCL 30 MG CAP PO SCH (07:26)
[2023-08-21 07:31] LABS: Basophils # (auto) 0.04 K/uL (0.00-0.20); Basophils % (auto) 0.6 %; Eosinophils # (auto) 0.14 K/uL (0.00-0.50); Eosinophils % (auto) 2.1 %; Hemoglobin 10.8 g/dl (12.0-16.0); Immature Granulocytes # (auto) 0.02 K/uL (0.01-0.20); Immature Granulocytes % (auto) 0.3 %; Lymphocytes # (auto) 2.51 K/uL (1.20-3.40); Lymphocytes % (auto) 37.9 %; Mean Corpuscular Hemoglobin 32.7 pg (25.0-34.0); Mean Corpuscular Hgb Conc 31.8 g/dL (32.0-36.0); Mean Platelet Volume 9.9 fL (9.4-12.4); Monocytes # (auto) 0.52 K/uL (0.11-0.59); Monocytes % (auto) 7.9 %; Neutrophils # (auto) 3.39 K/uL (1.40-6.50); Neutrophils % (auto) 51.2 %; Platelet Count 250 K/uL (130-400); RDW Coefficient of Variation 15.9 % (11.5-14.5); White Blood Count 6.62 K/ul (4.8-10.8)
[2023-08-21 07:46] LABS: BUN Creatinine Ratio 15.9 (10-20); Calcium 8.5 mg/dl (8.6-10.3); Creatinine Clr Calc Pharmacy 23.1 ml/min; Est GFR (African American) 44.1 ml/min; Magnesium 1.9 mg/dl (1.7-2.4); Potassium 4.3 mmol/L (3.5-5.1)
--- NOTE | 2023-08-21 09:17 | Hospitalist Progress Note ---
Date of Service August 21, 2023 Assessment & Plan (1) Parkinsons disease: Plan: Continue Sinemet - appears to be doing well this morning managing her breakfast- but feels in the evening symptoms worsening - Reasonable at this time to see how she does with rehab evaluation and track symptoms especially in light of recent CVA and magnesium level - She was just evaluated in neurology clinic on 07/31/23 with no adjustments to Sinemet and at this time with other confounding issues adjusting Sinemet may make picture less clear. - consider neurology consultation when more information is available or acute change (2) UTI (urinary tract infection): Plan: She is with ESBL noted in urine culture, this was previously E.coli and Klebsiella not an ESBL - she is without symptoms other than what is noted above- - Will place on Zosyn at this time - no septic, consider ID consult as clinical picture becomes more clear (3) Chronic deep vein thrombosis (DVT): Plan: On Eliquis - Continue - This may need to be re-visited if frequent falls occur or worsening physical status (4) Antiviral prophylaxis recommended: Plan: Patient is on Acyclovir usually as needed, however she is following with her eye DrMarlys currently for eye ulceration/pain that is currently controlled - continue with acyclovir TID (5) History of ischemic stroke: Plan: Right Cerebellar, 07/22/2023 - Continue high intensity statin - Continue Apixaban - appropriately 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 Monitor (6) Second degree AV block, Mobitz type I: Plan: Hx of on previous admission 07/17 - BB was stopped at that time - Holter monitor in place - No acute changes on ECG noted (7) Megaloblastic anemia: Plan: Hgb 11.2 on arrival MCV >100 Vitamin B12 level on 07/08/2023 was WNL at 538 Folate level was WNL on 04/11/2023 Likely chronic; continue monitor with daily CBC (8) Diet-controlled diabetes mellitus: Plan: A1c 5.4% on 07/23/2023 Not currently on medications Diet controlled - BG AC/HS - goal <180mg/DL - will add coverage if > 180mg/dl - Patient requests more range in food and diet- will place on regular diet follow BG (9) CKD (chronic kidney disease), stage IV: Plan: BUN 18, creatinine 1.34, EGFR 37.3 Avoid nephrotoxic agents for possible - Will provide 1 liter of Ringers over the day- 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 with volume on arri mark (10) Hypothyroidism (acquired): Plan: Continue levothyroxine - no acute needs- controlled (11) Interstitial lung disease: Plan: Chronic; - Continue BELINDA (12) Hypomagnesemia: Plan: Low again on admission and replaced Was supposed to discontinue PPI last admission but it was continued Discontinue PPI, can use famotidine as needed Follow magnesium level Plan Disposition: Admit to [facility] telemetry Full code T2DM diet, soft bite sized VTE PPx: On Eliquis Pending consultaitons: PT/OT, Nuerology Admission and Anticipated Discharge Date Admission Date: August 20, 2023 Supervising Physician Co-Signing Physician Notes BAL Supervision Note: I did not personally see or examine the patient today, but I verified all machado points of BAL Toth's assessment and plan with the following exceptions/additions: None Subjective 78 YOF who is HD #1 following admission for a fall. Patient reports that she fell while trying to transition from chair to couch and slid down the front of the couch. She states that it was related to her legs shaking so much, which she believes is from her Parkinson's. She feels as though her Parkinson's is for the most part controlled, but states that over the past week she has been noting more tremors/shaking in her legs in the evening. She is however noted for recent right cerebellar stroke on 07/23/23. Patient is also noted to have ESBL hx of UTI that has been noted since December- previous discussions on last hospitalization was thought to be asymptomatic and treatment was deferred. Will initiate antibiotics at this time as this may also be giving her re-occurrence of CVA symptoms with ataxia. She is without new complaints this morning and is also without new focal points of pain following fall. She is concerned with feeling her leg tremors are getting more worse in the evening. She is open to PT/OT and rehab if needed. Her Neurologist is manager acquisition for this week, so may have him evaluate her and see if medication adjustment may be warranted at this time. Review of Systems Review of Systems: REVIEW OF SYSTEMS: Constitutional: No fever, sweats or chills Eyes: No diplopia, no worsening or blurred vision ENT: normal hearing, no trouble swallowing Respiratory: No cough, sputum, dyspnea at rest or on exertion Cardiovascular: No chest pain, tightness or palpitations Abdomen: No pain, nausea, vomiting, diarrhea or constipation Musculoskeletal: No joint pain, calf pain, swelling Neurologic: (+) tremors, mild ataxia, balance problem, No weakness, numbness/tingling Psychiatric: No anxiety or depression Skin: No rash or itch Physical Exam Physical Exam: PHYSICAL EXAM: General: awake, alert, no apparent distress Head: Normocephalic, atraumatic ENT: PERRLA, EOMI, no pharyngeal exudate, mucous membranes moist Neuro: AAO x 3, speech clear and appropriate, strength intact bilaterally 5/5, sensation intact and equal all extremities and dermatomes, no pronator drift, tremor to bilateral hands and legs mild, mild ataxia with heel to lira of lower extremities, however likely not out or proportion to her known Parkinson Chest: equal rise and fall of the chest, no accessory muscle use, no heaves or thrills, Clear to auscultation, on room air, Cardiac: Regular rate and rhythm, telemetry reviewed- NSR, holter monitor in place, skin warm dry, cap refill <3 seconds, peripheral pulses +2 no JVD, no murmur, no edema GI: NABS x 4 quadrants, soft, nontender to palpation, no rebound, guarding or tenderness : Spontaneously voiding, no pain, no CVA tenderness, Psych: Normal mood and affect Skin: no rash or erythema Results & Data Results & Data Vital Signs (Past 12 Hours) Vital Signs Pulse Pulse Resp BP Pulse Ox O2 Del Method O2 Flow Rate 08/21/23 07:41 79 08/21/23 06:36 73 16 124/61 93 Oxymask 3 08/21/23 04:51 Oxymask 3 08/21/23 03:22 77 14 152/82 H 95 Oxymask 3 08/21/23 01:00 84 20 126/60 94 Oxymask 4 08/21/23 00:40 99 Oxymask 4 08/21/23 00:02 88 L Nasal Cannula 2 08/20/23 23:32 62 18 115/77 95 Nasal Cannula 2 08/20/23 23:22 87 Laboratory Results Abnormal lab results 08/20/23 08/20/23 08/20/23 Range/Units 10:40 14:00 17:37 RBC 3.47 L (4.20-5.40) M/uL Hgb 11.2 L (12.0-16.0) g/dl Hct 34.9 L (37.0-47.0) % MCV 100.6 H (80.0-100.0) fL MCHC (32.0-36.0) g/dL RDW Std Deviation 58.4 H (36.4-46.3) fL RDW Coeff of Damien 15.9 H (11.5-14.5) % Creatinine 1.34 H (0.6-1.2) mg/dl Glucose 104 H (70-99(Fasting)) mg/dl POC Glucose 141 H (70-99) mg/dl Calcium (8.6-10.3) mg/dl Magnesium 1.5 L (1.7-2.4) mg/dl ALT 3 L (7-52) U/L Urine Appearance Cloudy A (Clear) Urine Protein Trace H (Negative) Ur Leukocyte Esterase 2+ H (Negative) Urine WBC (Auto) >30 H (0-5) /hpf U Epithel Cells (Auto) 5-10 H (0-5) /lpf Urine Bacteria (Auto) 3+ H (Negative) 08/20/23 08/21/23 08/21/23 Range/Units 23:11 07:11 09:13 RBC 3.30 L (4.20-5.40) M/uL Hgb 10.8 L (12.0-16.0) g/dl Hct 34.0 L (37.0-47.0) % MCV 103.0 H (80.0-100.0) fL MCHC 31.8 L (32.0-36.0) g/dL RDW Std Deviation 60.0 H (36.4-46.3) fL RDW Coeff of Damien 15.9 H (11.5-14.5) % Creatinine 1.32 H (0.6-1.2) mg/dl Glucose (70-99(Fasting)) mg/dl POC Glucose 101 H 108 H (70-99) mg/dl Calcium 8.5 L (8.6-10.3) mg/dl Magnesium (1.7-2.4) mg/dl ALT (7-52) U/L Urine Appearance (Clear) Urine Protein (Negative) Ur Leukocyte Esterase (Negative) Urine WBC (Auto) (0-5) /hpf U Epithel Cells (Auto) (0-5) /lpf Urine Bacteria (Auto) (Negative) Diagnostic Findings Chest X-Ray 08/20/23 10:00 SINGLE VIEW CHEST CLINICAL HISTORY: Hypoxia FINDINGS: An AP, portable, upright chest radiograph is compared to study dated 07/22/2023. Correlation is made with chest CT dated 01/11/2023. An electronic device projects over the mediastinum. The heart is enlarged noting atherosclerotic calcification of the thoracic aorta. The pulmonary vasculature is noncongested. Emphysema and chronic interstitial thickening is similar to previous. Foci of parenchymal scarring are seen throughout both lungs. The lungs and pleural spaces are clear. No pneumothorax is seen. The skeletal structures are osteopenic. The degenerative change is noted in the shoulders and spine. The re are chronic/healed left-sided rib fractures. IMPRESSION: Cardiomegaly and emphysema with no active disease in the chest. ACT 112: Negative or not required by law. Electronically signed by: Salo Morales M.D. 08/20/2023 10:[address] 08/20/23 10:31 CT cervical spine wo con CLINICAL HISTORY: fall TECHNIQUE: Multidetector row helical CT of the cervical spine was performed without administration of intravenous contrast. Coronal and sagittal reformations were obtained. Automated dose lowering techniques and/or adjustment according to patient size were utilized for this exam. Comparison: Comparison is made to CTA neck 05/22/2024 FINDINGS: No acute fractures or subluxations are identified. Degenerative changes are seen in the visualized spine. The alignment is normal. Biapical scarring is seen in the lungs. IMPRESSION: Degenerative changes without evidence of acute bony injury. ACT 112: Negative or not required by law. Electronically signed by: Jorge Tierney M.D. 08/20/2023 11:[address] 08/20/23 10:31 CT SCAN OF THE BRAIN WITHOUT IV CONTRAST CLINICAL HISTORY: Fall. COMPARISON STUDY: CT of the brain dated 07/22/2023. TECHNIQUE: Unenhanced axial CT scan of the brain is performed from the vertex to the skull base. A dose lowering technique was utilized adhering to the principles of ALARA. FINDINGS: Brain parenchyma: There is age-related involutional change noting moderate to advanced subcortical and periventricular microangiopathic disease. There is no hemorrhage, mass effect, or evidence of acute territorial ischemia by CT criteria. Naidu-white matter differentiation is preserved. No extra-axial fluid collection is seen. Ventricles, sulci, cisterns: Prominent secondary to involutional change. Intracranial vasculature: There is atherosclerotic calcification of the cavernous carotid and vertebral arteries. Calvarium: The skeletal structures are osteopenic. No depressed calvarial fracture is identified. Soft tissues: Surgical clips are partially visualized in the right upper neck/periauricular region Sinuses and mastoids: The visualized paranasal sinuses are clear. There is a small right mastoid effusion. The left mastoid air cells are well pneumatized. Orbits: The bony orbits are grossly intact. There are bilateral ocular lens implants. IMPRESSION: There is no hemorrhage, mass effect, or evidence of acute territorial ischemia by CT criteria. ACT 112: Negative or not required by law. Electronically signed by: Salo Morales M.D. 08/20/2023 11:03 AM PG Care Time/CCT Total # of Minutes Spent Total Time Spent with Patient: Total time spent is greater than 50% in coordination of care (as documented) at patient's floor/unit and/or counseling patient: Coding Level of Care Code 63683 SUB INP/OBS CARE 3/50MIN Medical Decision Making High Complexity Diagnoses Parkinsons disease G20.A1 UTI (urinary tract infection) N30.01 Hematuria presence: with hematuria Urinary tract infection type: acute cystitis Chronic deep vein thrombosis (DVT) I82.509 Antiviral prophylaxis recommended Z78.9 History of ischemic stroke Z86.73 Second degree AV block, Mobitz type I I44.1 Megaloblastic anemia D53.1 Diet-controlled diabetes mellitus E11.9 CKD (chronic kidney disease), stage IV N18.4 Hypothyroidism (acquired) E03.9 Interstitial lung disease J84.9 Hypomagnesemia E83.42 (2) UTI (urinary tract infection) Hematuria presence: with hematuria Urinary tract infection type: acute cystitis Qualified Code(s): N30.01 - Acute cystitis with hematuria
[2023-08-21] MEDS: LACTATED RINGER'S 1,000 ML IV ONE (10:07)
[2023-08-21] MEDS: PIPER/TAZO 4.5g in D5W MINI-B 100 ML IV ONE (11:29)
[2023-08-21] MEDS: PIPERACILLIN/TAZOBACTAM 4.5 GM in DEXTROSE 5% MINI-B 100 ML IV SCH (16:10)
[2023-08-22] MEDS: ACETAMINOPHEN 325 MG TAB PO PRN (01:30)
[2023-08-22 05:33] LABS: BUN Creatinine Ratio 13.5 (10-20); Calcium 8.4 mg/dl (8.6-10.3); Creatinine Clr Calc Pharmacy 19.5 ml/min; Est GFR (Non-African American) 31.1 ml/min; Magnesium 1.6 mg/dl (1.7-2.4); Potassium 4.2 mmol/L (3.5-5.1)
[2023-08-22 05:39] LABS: Basophils # (auto) 0.03 K/uL (0.00-0.20); Basophils % (auto) 0.4 %; Eosinophils # (auto) 0.18 K/uL (0.00-0.50); Eosinophils % (auto) 2.7 %; Hematocrit (blood only) 29.2 % (37.0-47.0); Hemoglobin 9.6 g/dl (12.0-16.0); Immature Granulocytes # (auto) 0.02 K/uL (0.01-0.20); Immature Granulocytes % (auto) 0.3 %; Lymphocytes # (auto) 2.55 K/uL (1.20-3.40); Lymphocytes % (auto) 37.7 %; Mean Corpuscular Hemoglobin 32.5 pg (25.0-34.0); Mean Corpuscular Hgb Conc 32.9 g/dL (32.0-36.0); Mean Platelet Volume 10.2 fL (9.4-12.4); Monocytes # (auto) 0.59 K/uL (0.11-0.59); Monocytes % (auto) 8.7 %; Neutrophils # (auto) 3.39 K/uL (1.40-6.50); Neutrophils % (auto) 50.2 %; Platelet Count 242 K/uL (130-400); RDW Coefficient of Variation 15.7 % (11.5-14.5); RDW Standard Deviation 57.1 fL (36.4-46.3); Red Blood Count 2.95 M/uL (4.20-5.40); White Blood Count 6.76 K/ul (4.8-10.8)
[2023-08-22] MEDS: MAGNESIUM SULFATE / D5W 1 GM/100 ML BAG IV SCH (09:30)
[2023-08-22] MEDS: DOCUSATE SODIUM/SENNA 50/8.6MG TAB PO SCH (17:44)
--- NOTE | 2023-08-22 19:36 | Hospitalist Progress Note ---
Date of Service August 22, 2023 Assessment & Plan (1) Fall: Plan: possibly secondary to tremors in legs, known Parkinson's, and recent cerebellar stroke, deconditioning, and hypomagnesemia ALso with ESBL E. coli in urine--> not treated previously as thought to be as ymptomatic but could have a role? Now treating UTI Replacing magnesium Consult Neuro to see if any further input on tremors in her legs PT says rehab vs home and pt prefers to go home with home health (2) Parkinsons disease: Plan: Continue Sinemet She was just evaluated in neurology clinic on 07/31/23 with no adjustments to Sinemet SHe reports tremors in her legs COnsult Neuro requested (3) Tremor: Plan: as above continue meds, consult Neuro possibly low magnesium contributing as well-replacing mag (4) UTI (urinary tract infection): Plan: She is with ESBL E.coli in urine, unclear if symptomatic as she is having increased weakness Change IV ZOsyn to IV ertapenem for ease of once dialy dosing--> plan to send home with IV ertapenem to finish out 7 day course Ordered US-guided peripheral IV to be inserted and she can go home with this Asked case assistant to arrange home IV ertapenem through 08/27/23-Rx for ertapenem placed on paper chart (5) Hypomagnesemia: Plan: severely low again on admission and replaced Was supposed to discontinue PPI last admission but it was continued Discontinue PPI, can use famotidine as needed Follow magnesium level-replace again today with 2 grams IV mag (6) Chronic deep vein thrombosis (DVT): Plan: On Eliquis- Continue (7) Antiviral prophylaxis recommended: Plan: Patient is on Valtrex prophylaxis (8) History of ischemic stroke: Plan: Right Cerebellar, 07/22/2023 , thought to be embolic Continue high intensity statin, Apixaban - appropriately 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 for 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 Currently wearing a 30 day cardiac event monitor from home and tele monitor while inpatient Stopped aspirin by Neuro while on Eliquis (9) Second degree AV block, Mobitz type I: Plan: Hx of on previous admission 07/17 - BB was stopped at that time - clinical research monitor in place - No acute changes on ECG noted -in NSR here (10) Megaloblastic anemia: Plan: Hgb 11.2 on arrival,now 9.6, MCV >100 Likely some dilutional effect Vitamin B12 level on 07/08/2023 was WNL at 538 Folate level was WNL on 04/11/2023 Likely chronic; continue monitor with daily CBC (11) Diet-controlled diabetes mellitus: Plan: A1c 5.4% on 07/23/2023 Not currently on medications Diet controlled - BG AC/HS - goal <180mg/DL - will add coverage if > 180mg/dl - Patient requests more range in food and diet- will place on regular diet follow BG (12) CKD (chronic kidney disease), stage IV: Plan: Property Analyst around baseline at 1.5 (baseline 1.2-1.7) Avoid nephrotoxic agents, renally dose meds (13) Hypothyroidism (acquired): Plan: Continue levothyroxine TSH normal in 05/2023 (14) Interstitial lung disease: Plan: Chronic - Continue BELINDA (15) GERD (gastroesophageal reflux disease): Plan: dc PPI due to severe hypomagnesemia can use prn pepcid if needed Plan Disposition: continued stay MedSurg telemetry, but possible dc to home with IV antibiotics in 1-2 days after arrangements made DVT prophylaxis-Eliquis Admission and Anticipated Discharge Date Admission Date: August 20, 2023 Subjective Pt reports feeling ok but is constipated, no BM in 4 days. Feels like the tremors in her legs caused her to fall and requests to see her Neurologist Tele with NSR, PACs, rates in 90s Physical Exam Constitutional: WD/WN, vitals as above Respiratory: normal respiratory effort, lungs clear to auscultation Cardiovascular: RRR, no murmur, no edema Gastrointestinal (Abdomen): normal bowel sounds, soft, nontender, no hepatosplenomegaly Neurologic: Motor/Sensory: + tremor (action tremor in head/neck) Psychiatric: A+Ox3, euthymic affect Results & Data Results & Data Vital Signs (Past 12 Hours) Vital Signs Temp Pulse Pulse Resp BP BP Pulse Ox 08/22/23 16:22 36.7 C 94 H 18 100/64 93 08/22/23 15:00 95 H 08/22/23 11:35 36.9 C 81 18 102/51 L 93 08/22/23 08:00 08/22/23 07:39 37.0 C 79 17 115/70 96 O2 Del Method 08/22/23 16:22 Room Air 08/22/23 15:00 08/22/23 11:35 Room Air 08/22/23 08:00 Room Air 08/22/23 07:39 Room Air Laboratory Results CBC, BMP, magnesium reviewed Ur cx reviewed PG Care Time/CCT Total # of Minutes Spent Total Time Spent with Patient: Total time spent is greater than 50% in coordination of care (as documented) at patient's floor/unit and/or counseling patient: Coding Level of Care Code 05480 SUB INP/OBS CARE 3/50MIN Diagnoses Fall W19.XXXA Encounter type: initial encounter Parkinsons disease G20.A1 Tremor R25.1 UTI (urinary tract infection) N30.01 Hematuria presence: with hematuria Urinary tract infection type: acute cystitis Hypomagnesemia E83.42 Chronic deep vein thrombosis (DVT) I82.509 Antiviral prophylaxis recommended Z78.9 History of ischemic stroke Z86.73 Second degree AV block, Mobitz type I I44.1 Megaloblastic anemia D53.1 Diet-controlled diabetes mellitus E11.9 CKD (chronic kidney disease), stage IV N18.4 Hypothyroidism (acquired) E03.9 Interstitial lung disease J84.9 GERD (gastroesophageal reflux disease) K21.9 (1) Fall Encounter type: initial encounter Qualified Code(s): W19.XXXA - Unspecified fall, initial encounter (4) UTI (urinary tract infection) Hematuria presence: with hematuria Urinary tract infection type: acute cysti tis Qualified Code(s): N30.01 - Acute cystitis with hematuria
[2023-08-22] MEDS ORDERED: SODIUM CHLORIDE 0.65% NA SOLN 45 ML (OCEAN) PRN (20:03)
[2023-08-22] MEDS: DICLOFENAC SOD 1% GEL 100 GM TUBE EXT PRN (22:07)
[2023-08-23] MEDS: ERTAPENEM SODIUM 500 MG in SYRINGE 0 ML IV SCH (07:20)
[2023-08-23 08:43] LABS: Basophils # (auto) 0.03 K/uL (0.00-0.20); Basophils % (auto) 0.4 %; Eosinophils # (auto) 0.27 K/uL (0.00-0.50); Eosinophils % (auto) 3.7 %; Hematocrit (blood only) 33.1 % (37.0-47.0); Hemoglobin 10.3 g/dl (12.0-16.0); Immature Granulocytes # (auto) 0.03 K/uL (0.01-0.20); Immature Granulocytes % (auto) 0.4 %; Lymphocytes # (auto) 2.56 K/uL (1.20-3.40); Lymphocytes % (auto) 35.1 %; Mean Corpuscular Hemoglobin 32.2 pg (25.0-34.0); Mean Corpuscular Hgb Conc 31.1 g/dL (32.0-36.0); Mean Corpuscular Volume 103.4 fL (80.0-100.0); Mean Platelet Volume 10.1 fL (9.4-12.4); Monocytes # (auto) 0.53 K/uL (0.11-0.59); Monocytes % (auto) 7.3 %; Neutrophils # (auto) 3.87 K/uL (1.40-6.50); Neutrophils % (auto) 53.1 %; Platelet Count 245 K/uL (130-400); RDW Coefficient of Variation 16.2 % (11.5-14.5); White Blood Count 7.29 K/ul (4.8-10.8)
[2023-08-23 08:57] LABS: BUN Creatinine Ratio 12.8 (10-20); Calcium 8.9 mg/dl (8.6-10.3); Creatinine Clr Calc Pharmacy 16.5 ml/min; Est GFR (Non-African American) 27.6 ml/min; Potassium 4.4 mmol/L (3.5-5.1)
--- NOTE | 2023-08-23 11:04 | Neurology Consultation ---
Date of Consultation August 23, 2023 Assessment & Plan (1) Parkinsons disease: (2) History of ischemic stroke: Plan 78-year-old female with a history of atypical parkinsonism, looks like primarily lower half parkinsonism related to cerebrovascular disease, affecting primarily the legs and gait. However, she has exhibited a mixed bilateral upper extremity resting postural and action tremor on occasion, none this morning, however. She had a recent embolic appearing stroke this past June with punctate infarcts within the right cerebellar hemisphere and medial right temporal lobe. Vascular imaging was unremarkable. Occult atrial fibrillation may not be completely excluded. She is on Eliquis in light of a history of DVT. She has been experiencing recurrent falls due to leg weakness and tremor, no associated syncopal symptoms. She is not ataxic on examination. I do not believe her recurrent falls are related to her recent small right cerebellar infarct. Unfortunately, larger dosages of carbidopa levodopa would be very unlikely to improve her gait or fall risk. She has been taking carbidopa levodopa 10/100 mg, 2 tablets 4 times per day. She may continue with this medication at the current dosage. However, most patients taking carbidopa levodopa, would utilize the 25/100 mg tablet which provides a more standard, effective dosage of carbidopa to prevent GI upset from levodopa conversion in the gastrointestinal tract. Would not be unreasonable to switch her Sinemet to the 25/100 mg tablet, 2 tablets 4 times per day. However, doing so would not likely confer any particular advantage or benefit in terms of her Parkinson's disease. Consultations with PT/OT. In terms of secondary stroke risk reduction, she should continue with atorvastatin 80 mg/day. Apixaban is also reasonable in light of her history of DVT and likelihood of cardioembolic stroke previously. She had also been on daily low-dose aspirin previously although this was discontinued potentially due to concern for bleeding risk while on apixaban and in the context of recurrent f alls. No further immediate recommendations, please call with any questions. History of Present Illness Reason for Consultation: recurrent falls, leg tremor Requesting Physician: Angel Attending Physician: Manoj Mendoza MD History of Present Illness The patient is an 78-year-old female with a history of recent right cerebellar and right temporal lobe ischemic infarcts and parkinsonism. She was last seen in the outpatient neurology clinic July 31, 2023 regarding her recent history of ischemic stroke, tremor/parkinsonism. No changes were made in her carbidopa levodopa regimen at that time. She has followed with a movement disorder specialist at [facility] previously regarding her parkinsonism. It was recommended that she continue with carbidopa levodopa. Previous treatments have included primidone, gabapentin, propranolol, amantadine, levetiracetam, clonazepam, and Zonegran. She has been observed to have a mixed resting, postural and action tremor previously but has not had a classic pill-rolling parkinsonian type resting tremor, rigidity, or bradykinesia. She has been felt to have a polyneuropathy as well. I did review a clinic note from Dr. Alvarado from December 2022 indicating probable Parkinson's disease with response to carbidopa levodopa at that time. She had presented to the emergency department on August 20, 2023 after a fall. She indicated that her leg started shaking, she became weak, fell to the ground, no syncope. The patient reports having similar episodes in the past. This fall was unwitnessed and occurred while using her walker, attempting to sit on the couch. Again, there was no loss of consciousness or head injury. A CT of the head was negative for hemorrhage or acute process, there is generalized atrophy and chronic microvascular ischemic disease. I independently reviewed these images. A CT of the cervical spine was negative for acute process. A brain MRI completed July 22, 2023 had revealed 3 punctate foci of restricted diffusion in the right cerebellar hemisphere with an additional punctate focus of restricted diffusion within the medial right temporal cortex consistent with subacute embolic infarcts. No hemorrhage or mass effect. I independently reviewed these images. CTA of the head and neck completed at that time were unremarkable, no vascular lesion. Allergies Allergy/AdvReac Type Severity Reaction Status Date / Time nitrofurantoin Allergy Intermediate HIVES,ITCHI Verified 08/02/23 10:37 NG azithromycin [From Zithromax] Allergy HIVES Verified 08/02/23 10:37 tramadol AdvReac Mild nausea Verified 08/02/23 10:37 Home Medications Medication Instructions Recorded Confirmed Type denosumab 60 mg/mL subcutaneous 60 mg subcut Q6MO 02/25/19 08/20/23 History syringe lancets 33 gauge (CustExToTapZen Delica #100 ea 07/13/20 08/02/23 History Lancets) blood sugar diagnostic (Stardolluch #10 ea 12/08/21 08/02/23 History Ultra Blue Test Strip) albuterol sulfate 90 mcg/actuation 2 puff inhalation QID PRN 03/05/22 08/20/23 Rx aerosol inhaler (Ventolin HFA) shortness of breath or wheezing #6.7 grams calcium carbonate 500 mg calcium 500 mg PO QAM 06/29/22 08/20/23 History (1,250 mg) chewable tablet (Calcium 500) albuterol sulfate 2.5 mg/3 mL 2.5 mg inhalation Q8H PRN 01/09/23 08/20/23 History (0.083 %) solution for nebulization Shortness Of Breath Or Wheezing hydrocortisone acetate 25 mg 25 mg ME BID PRN Hemorrhoids 01/09/23 08/20/23 History rectal suppository (Anusol-HC) dexlansoprazole 60 mg 60 mg PO QAM #90 caps 01/25/23 08/20/23 Rx capsule,biphase delayed release (Dexilant) atorvastatin 80 mg tablet 80 mg PO HS #90 tabs 02/12/23 08/20/23 Rx fluticasone propionate 50 2 spray intranasal QAM PRN Allergy 03/01/23 08/20/23 Rx mcg/actuation nasal Symptoms #16 grams spray,suspension L.acidop,casei,lactis,rham-B.lact,alana 2 cap PO DAILY #180 caps 06/04/23 08/20/23 Rx 625 mg (10 billion cell) capsule (Advanced Probiotic) apixaban 2.5 mg tablet (Eliquis) 2.5 mg PO BID #180 tabs 06/04/23 08/20/23 Rx carbidopa 10 mg-levodopa 100 mg 2 tab PO QID@0800,1200,1600,2000 06/13/23 08/20/23 Rx tablet 30 days #240 tabs duloxetine 30 mg capsule,delayed 30 mg PO DAILY #90 caps 07/08/23 08/20/23 Rx release (Cymbalta) magnesium oxide 400 mg (241.3 mg 400 mg PO HS 1 month #30 tabs 07/28/23 08/20/23 Rx magnesium) tablet valacyclovir 500 mg tablet 500 mg PO HS breakout 07/30/23 08/20/23 History levothyroxine 88 mcg tablet 88 mcg PO DAILYBB #90 tabs 08/05/23 08/20/23 Rx ertapenem 1 gram solution for 1 g IV DAILY 5 days #5 ea 08/22/23 Rx injection Patient History Medical History (Updated 08/21/23 @ 20:06 by Chastity Ortiz MD) Parkinsons disease History of ischemic stroke Second degree AV block, Mobitz type I Ischemic stroke Stroke-like symptoms Chronic deep vein thrombosis (DVT) Prediabetes Iron deficiency anemia Secondary hyperparathyroidism of renal origin Leg length discrepancy Acute kidney injury Ankle edema, bilateral Arthritis Asymptomatic menopausal state Blood glucose abnormal Cardiomyopathy Cholelithiasis Chronic GERD Chronic fatigue syndrome Chronic laryngitis Chronic pharyngitis Cigarette smoker motivated to quit Cough 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 Deep vein thrombosis of distal lower extremity Depression Dermatitis, eczematoid Diabetes mellitus (11/29/12) Dizziness Dyspnea on exertion Dysuria Gastropathy Hearing loss Hematuria, microscopic Herpes simplex Hoarseness Hyperglycemia Hypothyroidism Interstitial lung disease Ischemic colitis Laryngitis Lightheadedness Low back pain Lumbar spinal stenosis Muscle spasm NSTEMI (non-ST elevated myocardial infarction) Nasal dryness Nicotine dependence 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 Recurrent UTI Rib pain on right side SNHL (sensorineural hearing loss) Secondary hyperparathyroidism (of renal origin) Shortness of breath Solitary pulmonary nodule Subsequent non-ST elevation (NSTEMI) myocardial infarction Takotsubo syndrome Tendinitis of left rotator cuff Type 2 diabetes mellitus without complication Vertigo GERD (gastroesophageal reflux disease) Chronic kidney disease Hypothyroidism (acquired) Pneumonia Constipation GI bleed Chronic deep vein thrombosis of left lower extremity Sinusitis Hematuria Kidney stones Hyperlipidemia DVT (deep venous thrombosis) Osteopenia (11/29/12) Thyroid disease Compression fracture of lumbar vertebra Surgical History History of tubal ligation History of D&C History of Hx of colonoscopy Family History Mother Leukemia Hypertension Father Myocardial infarction Diabetes Other Family history non-contributory Denies family history of Ovarian cancer Prostate cancer Breast cancer Lung cancer Social History Smoking Status: Current some day smoker Tobacco Type: Cigarettes Age Started Using Tobacco: 17; Age Quit Using Tobacco: 73; packs per day: 1; Cigarettes Per Day: Only while driving; Second Hand Exposure: No; Do You Dip or Chew Tobacco: No; Hx Alcohol Use: No Hx Substance Use: Yes Last Used Substance: Unknown Preferred Language: Lao Communication Ability: Effective Visual Impairment: No Limitations Hearing Ability: Use of Hearing Aid 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 Required: No Beliefs That Will Affect Care: None marital status: Current Living Situation: Alone and Personal Care Facility Current Living Situation Comment: Has a caregiver current occupational status: retired 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 Safe at Home: Yes Childhood Exposure to Second-Hand Smoke: Yes caffeine: No Dental Care, Regularly: No Physical Activity Frequency: Does not Exercise Seatbelt Use: always Sunscreen Use: No Assistive Devices: Walker Review of Systems Constitutional: no fever and no chills Eyes: no blind spots and no diplopia Ear, Nose, Mouth, Throat: no hearing loss Respiratory: no cough and no dyspnea Cardiovascular: no chest pain and no palpitations Gastrointestinal: no nausea and no vomiting Genitourinary: no urinary incontinence Musculoskeletal: + back pain and + joint pain; no neck pa in and no myalgia Integumentary: no rash and no lesions Neurologic: as per Subjective / HPI, + gait abnormality and + tremor(s); no headache(s), no confusion and no memory loss Psychiatric: no depression and no anxiety Hematologic / Lymphatic: no easy bleeding and no easy bruising Exam (Neuro) Constitutional: well developed, + thin and + frail appearing; no acute distress Eyes: normal visual rees by confrontation, PERRL and EOM intact bilaterally; no nystagmus Neurologic: Oriented to:: Person, Place and Time Memory: Short Term Intact and Remote Intact Attention: Span Intact and Concentration Intact Speech Fluency: negative Dysarthria or Dysfluency Speech Aphasia: negative Aphasia Fund of Knowledge: Current Events, Past History and Vocabulary Cranial Nerves: Normal II, III, IV, , V, VII, VIII, IX, X, XI and XII Motor Strength: Normal Lower Extremities and Normal Upper Extremities Motor Tone: Normal Lower Extremities and Normal Upper Extremities Rigidity: None Muscle Bulk/Involuntary Movements: Intention Tremor and Action Tremor; negative Pill Rolling Tremor or Rest Tremor (Arm) Sensation: Light Touch Intact; negative Pain/Temperature Intact, Vibration Intact or Proprioception Intact Coordination: Limited Balance; negative Dysdiadochokinesia, Finger-Nose Abnormal or Heel-Joe Abnormal Deep Tendon Reflexes: Rt Triceps: 2+, Lt Triceps: 2+, Rt Biceps: 2+, Lt Biceps: 2+, Rt Brachioradialis: 2+, Lt Brachioradialis: 2+, Rt Patellar: 2+, Lt Patellar: 2+, Rt Ankle: 1+ and Lt Ankle: 1+ Gait: Stooped and Shuffling Results & Data Vital Signs (Past 12 Hours) Vital Signs Temp Pulse Pulse Resp BP BP Pulse Ox 08/23/23 09:04 08/23/23 08:22 83 08/23/23 08:08 36.6 C 84 16 111/46 L 95 08/23/23 03:26 36.5 C 88 18 103/66 90 08/22/23 23:47 90 O2 Del Method 08/23/23 09:04 Room Air 08/23/23 08:22 08/23/23 08:08 Room Air 08/23/23 03:26 Room Air 08/22/23 23:47 Laboratory Results WBC 7.29, hemoglobin 10.3, hematocrit 33.1, platelet count 245, sodium 138, potassium 4.4, BUN 22, creatinine 1.72, glucose 120, calcium 8.9, magnesium 2.[address] of the head, CT of the cervical spine, recent brain MRI, and CT of the head and neck are as described in the HPI. I independently reviewed these images. An electrocardiogram revealed normal sinus rhythm, possible left atrial enlargement, inferior infarct, age undetermined, 78 bpm. An echocardiogram completed July 23, 2023 revealed normal left ventricular systolic function, no regional wall motion abnormalities, EF 60 to 65%, mild mitral stenosis, no interatrial shunt with injection of contrast, borderline left atrial enlargement. Coding Level of Care Code 79661 INT INP/OBS CARE 75MIN Diagnoses Parkinsons disease G20.A1 History of ischemic stroke Z86.73 Time Spent (min) 80 Comment Total time includes patient contact, chart review, counseling, note preparation
--- NOTE | 2023-08-23 14:24 | Hospitalist Progress Note ---
Date of Service August 23, 2023 Assessment & Plan (1) Fall: Plan: Supportive care. OT and PT assessments requested. Her chronic degenerative neurological disorder is undoubtedly contributing as well as her advanced age. (2) Parkinsons disease: Plan: Stable. Continue Sinemet. OT and PT while hospitalized (3) Tremor: Plan: She complains mostly of tremors in her legs. Neurology consultation appreciated. Continue OT and PT (4) UTI (urinary tract infection): Plan: ESBL E.coli isolated in the urine. Currently on ertapenem. She will be switched to oral Augmentin at the time of discharge. (5) Hypomagnesemia: Plan: Corrected with parenteral replacement. Continue oral replacement going forward (6) Chronic deep vein thrombosis (DVT): Plan: On Eliquis. Stable (7) Second degree AV block, Mobitz type I: Plan: Accounted for previous admission 07/17. BB was stopped at that time. Stable. Telemetry (8) Megaloblastic anemia: Plan: Vitamin B12 and folate levels normal. Likely chronic. Serial labs (9) Diet-controlled diabetes mellitus: Plan: A1c 5.4% on 07/23/2023. Currently managed with diet alone. Sliding scale coverage if needed (10) CKD (chronic kidney disease), stage IV: Plan: Monitor intake and output. Serial labs Plan Anticipate discharge to home tomorrow, August 23, with home health services. She will remain on Augmentin for 1 week Admission and Anticipated Discharge Date Admission Date: August 20, 2023 Subjective Alert and oriented. ESBL E. coli isolated in the urine is sensitive to oral Augmentin which she can take at the time of discharge. Continuing intravenous ertapenem is not indicated. I spoke to her daughter, Almita, by phone and she is prepared to take the patient home tomorrow morning at 10 AM. Home health services requested. Review of Systems 2 Review of Systems: Constitutional-no fever or chills ENT-no blurred vision, no double vision, no epistaxis, no sore throat Respiratory-no cough, no wheezing, no shortness of breath Cardiac-no palpitations, no chest pain, no syncope GI-no nausea, vomiting, diarrhea, melena, hematochezia -no urinary retention, no urinary incontinence, no dysuria, no hematuria Musculoskeletal-no joint pain, no muscle tenderness Skin-no bruising, no rashes, no pruritus Neuro-no isolated weakness, no paresthesia, no weakness Psych-no depression, no anxiety Physical Exam 2 Physical Exam: General-alert and oriented x3, no fevers, no chills HEENT-head atraumatic and normocephalic, pupils equal and reactive to light, extraocular muscles intact Neck-no lymphadenopathy or thyromegaly, trachea midline Chest-clear to auscultation. No rales, wheezing or rhonchi Cardiac-regular rate and rhythm, normal S1 and S2 Abdomen-normal bowel sounds, nontender, no hepatosplenomegaly Extremities-no cyanosis, clubbing, or edema Neuro-cranial nerves II through XII intact, motor and sensory function within normal limits, strength symmetrical, no focal deficits Psych-normal affect, normal mood Results & Data Results & Data Vital Signs (Past 12 Hours) Vital Signs Temp Pulse Pulse Resp BP BP Pulse Ox 08/23/23 11:44 36.5 C 84 16 126/57 L 96 08/23/23 09:04 08/23/23 08:22 83 08/23/23 08:08 36.6 C 84 16 111/46 L 95 08/23/23 03:26 36.5 C 88 18 103/66 90 O2 Del Method 08/23/23 11:44 Room Air 08/23/23 09:04 Room Air 08/23/23 08:22 08/23/23 08:08 Room Air 08/23/23 03:26 Room Air Laboratory Results 08/23/23 08:10 08/23/23 08:10 PG Care Time/CCT Total # of Minutes Spent Total Time Spent with Patient: Total time spent is greater than 50% in coordination of care (as documented) at patient's floor/unit and/or counseling patient: Coding Level of Care Code 62168 SUB INP/OBS CARE 3/50MIN Diagnoses Fall W19.XXXA Encounter type: initial encounter Parkinsons disease G20.A1 Tremor R25.1 UTI (urinary tract infection) N30.01 Hematuria presence: with hematuria Urinary tract infection type: acute cystitis Hypomagnesemia E83.42 Chronic deep vein thrombosis (DVT) I82.509 Second degree AV block, Mobitz type I I44.1 Megaloblastic anemia D53.1 Diet-controlled diabetes mellitus E11.9 CKD (chronic kidney disease), stage IV N18.4 (1) Fall Encounter type: initial encounter Qualified Code(s): W19.XXXA - Unspecified fall, initial encounter (4) UTI (urinary tract infection) Hematuria presence: with hematuria Urinary tract infection type: acute cystitis Qualified Code(s): N30.01 - Acute cystitis with hematuria
--- NOTE | 2023-08-24 09:26 | Discharge Summary ---
Date of Service August 24, 2023 Admission HPI Per Admitting Provider Brittany is an 78-year-old female with PMH of interstitial lung disease, Parkinson's disease, CKD, HTN, osteoporosis, tremor, ataxia, memory loss, GERD, hypothyroid, PAD, and ischemic stroke. She presented via BLS for a fall on the evening of 08/19. Patient reports that her legs gave out from under her when she was moving from one chair to another. She was using a walker at the time, and went to sit back on the couch, but fell down on her left leg. No LOC. No head strike. Patient reports she has been feeling dizzy/lightheaded with walking for the past 2 days. She has a history of Parkinson's disease, and reports she has been very shaky recently when she sits for too long and then decides to stand up. This is her first time following in over a year. She endorses pain in her left leg from her knee to toes at present, that has been constant; rated 5/10. She says it is okay when she is walking around on it. Patient's annual giving officer (Sima) is at the bedside and provides additional history. [employer] helps to manage medications, and reports that she took all of her regular morning medications today. Also reports that this was an unwitnessed fall, and that the patient called her grandson who came over that evening; patient did not want to come into the hospital that evening, but was convinced by the annual giving officer to come in on the morning of 08/20. No facial droop, slurred speech, or unilateral deficits noted; patient reports that both her legs gave out, not just 1. Patient currently has a Holter monitor, and is supposed to have the patch change every 5 days; she is supposed to wear until the . She endorses infrequent tobacco cigarette use (once in a while); denies recent alcohol use. She took all of her regular morning medications, but notes that she was told to stop her aspirin recently. She reports good compliance with her Eliquis. Patient is mildly hypotensive at 108/57 at time of admission; SpO2 94% on RA. ROS: Patient endorses headaches (chronic), dizzy/lightheaded with walking x 2 days, productive cough (green sputum production) x 2 days, nausea, dry heaves (ongoing), constipation, tremor, and lower extremity weakness/pain. Patient denies fever, chills, nightsweats, changes in vision/hearing, fainting, chest pain, chest palpitations, SOB, pleuritic CP, hemoptysis, abdominal pain, vomiting, diarrhea, urinary s/s, blood in urine/stool, Principal Diagnosis ESBL E. coli UTI, hypomagnesemia, falling at home Discharge Exam General-alert and oriented x3, no fevers, no chills HEENT-head atraumatic and normocephalic, pupils equal and reactive to light, extraocular muscles intact Neck-no lymphadenopathy or thyromegaly, trachea midline Chest-clear to auscultation. No rales, wheezing or rhonchi Cardiac-regular rate and rhythm, normal S1 and S2 Abdomen-normal bowel sounds, nontender, no hepatosplenomegaly Extremities-no cyanosis, clubbing, or edema Neuro-cranial nerves II through XII intact, motor and sensory function within normal limits, strength symmetrical, no focal deficits Psych-normal affect, normal mood Discharge Data Allergies Allergy/AdvReac Type Severity Reaction Status Date / Time nitrofurantoin Allergy Intermediate HIVES,ITCHI Verified 08/02/23 10:37 NG azithromycin [From Zithromax] Allergy HIVES Verified 08/02/23 10:37 tramadol AdvReac Mild nausea Verified 08/02/23 10:37 Consultations 08/20/23 11:40 ED Decision to Admit Stat 08/22/23 19:57 Consult Neurology Routine Ordered Studies 08/20/23 10:31 CT cervical spine wo con Stat CT head/brain wo con Stat Hospital Course (1) Fall: Supportive care. OT and PT while hospitalized. Her chronic degenerative neuro logical disorder is undoubtedly contributing as well as her advanced age. (2) Parkinsons disease: Stable. Continue Sinemet. OT and PT while hospitalized (3) Tremor: She complains mostly of tremors in her legs. Neurology consultation appreciated. Continue OT and PT (4) UTI (urinary tract infection): ESBL E.coli isolated in the urine. Currently on ertapenem. She will be switched to oral Augmentin at the time of discharge. (5) Hypomagnesemia: Corrected with parenteral replacement. Continue oral replacement going forward (6) Chronic deep vein thrombosis (DVT): On Eliquis. Stable (7) Second degree AV block, Mobitz type I: Accounted for previous admission 07/17. BB was stopped at that time. Stable. Telemetry (8) Megaloblastic anemia: Vitamin B12 and folate levels normal. Likely chronic. Serial labs (9) Diet-controlled diabetes mellitus: A1c 5.4% on 07/23/2023. Currently managed with diet alone. Sliding scale coverage if needed (10) CKD (chronic kidney disease), stage IV: Monitor intake and output. Serial labs Plan Home with home health services today, August 23. She will remain on Augmentin for 1 week Total Time Total Time Spent Total Time Spent (In Minutes): 45 minutes Discharge Plan Discharge Items Patient Disposition: Home - Home Health Services Reason For Visit: FALL, LE WEEKNESS Discharge Diagnosis: UTI-ESBL E. coli Fall Hypomagnesemia Activity: Resume your previous activity Non-emergency contact: Primary Care Provider Call non-emergency contact if: you have any medication questions and your symptoms worsen Follow-up/Referrals: Katarina Peters DO [Primary Care Provider] - Diet: Regular and Heart Healthy Addtl Attending Provider Instructions: Take amoxicillin/clavulanate antibiotic twice daily for 1 more week. The prescription has been sent to [facility] pharmacy on [facility] [address] [facility] Pending Studies at Discharge: No Stand-Alone Forms: My [facility], Smoking Cessation Medications and DC Order Prescriptions: New amoxicillin-pot clavulanate 875-125 mg tablet 1 tab PO BID Qty: 14 0RF Continued calcium carbonate [Calcium 500] 500 mg calcium (1,250 mg) tablet,chewable 500 mg PO QAM denosumab 60 mg/mL syringe 60 mg SQ Q6MO atorvastatin 80 mg tablet 80 mg PO HS Qty: 90 3RF valacyclovir 500 mg tablet 500 mg PO HS Patient Comments: CONFIRMED W/ PT SHE IS TAKING TID FOR NOW. levothyroxine 88 mcg tablet 88 mcg PO DAILYBB Qty: 90 0RF albuterol sulfate [Ventolin HFA] 90 mcg/actuation HFA aerosol inhaler 2 puff inhalation QID PRN (Reason: shortness of breath or wheezing) Qty: 6.7 1RF duloxetine [Cymbalta] 30 mg capsule,delayed release(DR/EC) 30 mg PO DAILY Qty: 90 0RF carbidopa-levodopa 10-100 mg tablet 2 tab PO QID@0800,1200,1600,1999 30 Days Qty: 240 5RF fluticasone propionate 50 mcg/actuation spray,suspension 2 spray INTNAS QAM PRN (Reason: Allergy Symptoms) Qty: 16 3RF (DME) lancets [OneTouch Delica Lancets] 33 gauge misc See Rx Instructions .ROUTE .MEDSUPPLY Qty: 100 Rx Instructions: TEST ONCE DAILY. says she uses weekly (DME) OneTouch Ultra Blue Test Strip Strip See Rx Instructions .ROUTE .MEDSUPPLY Qty: 10 Rx Instructions: TEST ONCE DAILY. does PRN Eliquis 2.5 mg tablet 2.5 mg PO BID Qty: 180 0RF Advanced Probiotic 625 mg (10 billion cell) capsule 2 cap PO DAILY Qty: 180 0RF albuterol sulfate 2.5 mg /3 mL (0.083 %) solution for nebulization 2.5 mg inhalation Q8H PRN (Reason: Shortness Of Breath Or Wheezing) hydrocortisone acetate [Anusol-HC] 25 mg suppository 25 mg TN BID PRN (Reason: Hemorrhoids) Changed magnesium oxide 400 mg (241.3 mg magnesium) Tablet 400 mg PO BID 30 Days Qty: 60 0RF Discontinued dexlansoprazole [Dexilant] 60 mg capsule,biphase delayed releas 60 mg PO QAM Qty: 90 3RF Discharge Orders: Discharge Order (Routine); Ordered 08/24/23 Ordered By: Manoj Mendoza Admission Data Admit Date/Time: 08/20/23 12:25 Attending Provider: Manoj Mendoza Admit Provider: Isidro Perry Primary Care Provider: Katarina Peters Other Providers: Isidro Perry; Rufus Awad; [facility] Coding Level of Care Code 47359 INP/OBS DISCH >30 MIN Diagnoses Fall W19.XXXA Encounter type: initial encounter Parkinsons disease G20.A1 Tremor R25.1 UTI (urinary tract infection) N30.01 Hematuria presence: with hematuria Urinary tract infection type: acute cystitis Hypomagnesemia E83.42 Chronic deep vein thrombosis (DVT) I82.509 Second degree AV block, Mobitz type I I44.1 Megaloblastic anemia D53.1 Diet-controlled diabetes mellitus E11.9 CKD (chronic kidney disease), stage IV N18.4
[2023-08-24] MEDS: LORATADINE 10 MG TAB PO ONE (11:39)
== END 2023-08-24 12:59 | disposition home health service (06) | DRG 57 ==
LOC: ED 09:50 → SUATTDRO 12:25 → EDINP 12:25 → INTOOBSV 12:25 → EDINP 15:13 → 2W 08-21 15:40

== ENCOUNTER 2023-10-16 19:18 | Inpatient (IN) ==
--- NOTE | 2023-10-16 19:39 | Emergency Department Note ---
Impression & Plan Acute alteration in mental status, Hypoxia, Hyponatremia ED Provider Note NAME: SOFYA COX AGE: 78 SEX: F : 1945 ARRIVES VIA: Ambulance INFORMANT: Patient, EMS ED PROVIDER(S): Gee Eaton DO CHIEF COMPLAINT: Altered mental status HPI: Patient is a 78-year-old female who was seen and evaluated here and transferred to [place] for subdural and thoracic T1 compression fracture. She was transferred to [place] care and has been there for the past 2 days per report from EMS. They note that she was found confused and altered around 1500. She was also found to be hypoxic. Patient denies any headache or change in vision. No chest pain or shortness of breath. History is limited from patient due to mentation. Majority history obtained from EMS. ADDITIONAL HISTORY OBTAINED: Per HPI Chronic Medical/Social Conditions Affecting Care: Per HPI PAST MEDICAL HISTORY:See Below PAST SURGICAL HISTORY:See Below FAMILY HISTORY:See Below SOCIAL HISTORY:See Below HOME MEDICATIONS:See Below ALLERGIES:See Below VITALS:See Below PHYSICAL EXAMINATION: GENERAL: Sitting up in bed, alert, ill-appearing on nonrebreather EYE EXAM: normal conjunctiva. PERRL and EOM's grossly intact. OROPHARYNX: no exudate, no erythema, lips, buccal mucosa, and tongue normal and mucous membranes are moist NECK:cervical collar in place LUNGS: Diminished. Normal chest wall mechanics HEART: Tachycardic, S1 normal and S2 normal ABDOMEN: abdomen soft, non-tender, normo-active bowel sounds, no masses, no rebound or guarding. UPPER EXTREMITIES: upper extremities are grossly normal. LOWER EXTREMITIES: No pitting edema. NEURO EXAM: Awake alert oriented to person but not place or year, normal speech, no focal deficit in the upper or lower extremity MEDICAL DECISION MAKING: Patient is an 78-year-old female who presents ER found by EMS unresponsive and hypoxic. She was placed on nonrebreather and brought in. Upon arrival she was oriented to person but not place or time. Labs show no significant leukocytosis or anemia. VBG with pH 7.4. BMP with a mild hyponatremia at 133. Creatinine 1.3. LFTs bilirubin was unremarkable. Troponin was negative. Lipase normal. Patient was given IV fluids and antibiotics. She was titrated down off her nonrebreather while in the ER and to an OxyMask at 6 L. Chest x-ray with atelectasis at the bases. CT of the head was negative. Discussed the case with the hospitalist for further evaluation management treatment. We were unable to get angio of the chest as the IV blew x 2. Duplex of lower extremities were ordered but were not completed upon admission Consults/Care Managements Discussions: Per [facility] Triage Nursing notes reviewed. Limited review of prior medical records performed Vital Signs: reviewed and remarkable for hypoxic Differential diagnosis: Differential diagnoses includes but is not limited to toxic, metabolic, infectious, traumatic, cardiac, neurologic, hematologic, psychiatric and inflammatory etiologies. ER treatment provided: See below Diagnostics interpreted by me include EKG and cardiac monitoring as listed below: -Cardiac Monitoring: An order was placed for continuous cardiac monitoring. The monitor shows a rate of 98 with sinus rhythm. -ECG: Sinus rhythm rate of 104 Normal axis No PVCs QTc 454 -Laboratory studies:Interpreted by me as stated above in MDM and shown below. Imaging studies: Xrays: As interpreted by me: Portable AP upright 1 view of the chest shows questionable left lower lobe infiltrate CTs show: CT of the head showed no bleed per radiology Procedures:none Critical Care: I have personally spent 32 minutes of critical care time in the direct management of this patient. This includes bedside care, interpretation of diagnostic studies, and testing, discussion with consultants, patient, and family members, and other required patient management activities. This 32 minutes is in excess of all separately billable procedures. Past Med/Surg History Medical History Tobacco abuse counseling Hypoxemia Physical deconditioning Pulmonary emphysema Stage 1 skin ulcer of sacral region CKD (chronic kidney disease), stage IV Megaloblastic anemia Diet-controlled diabetes mellitus Tremor Parkinsons disease History of ischemic stroke Second degree AV block, Mobitz type I Ischemic stroke Stroke-like symptoms Chronic deep vein thrombosis (DVT) Prediabetes Iron deficiency anemia Secondary hyperparathyroidism of renal origin Leg length discrepancy Acute kidney injury Ankle edema, bilateral Arthritis Asymptomatic menopausal state Blood glucose abnormal Cardiomyopathy Cholelithiasis Chronic GERD Chronic fatigue syndrome Chronic laryngitis Chronic pharyngitis Cigarette smoker motivated to quit Cough 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 Deep vein thrombosis of distal lower extremity Depression Dermatitis, eczematoid Diabetes mellitus (11/29/12) Dizziness Dyspnea on exertion Dysuria Gastropathy Hearing loss Hematuria, microscopic Herpes simplex Hoarseness Hyperglycemia Hypothyroidism Interstitial lung disease Ischemic colitis Laryngitis Lightheadedness Low back pain Lumbar spinal stenosis Muscle spasm NSTEMI (non-ST elevated myocardial infarction) Nasal dryness Nicotine dependence 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 Recurrent UTI Rib pain on right side SNHL (sensorineural hearing loss) Secondary hyperparathyroidism (of renal origin) Shortness of breath Solitary pulmonary nodule Subsequent non-ST elevation (NSTEMI) myocardial infarction Takotsubo syndrome Tendinitis of left rotator cuff Type 2 diabetes mellitus without complication Vertigo GERD (gastroesophageal reflux disease) Chronic kidney disease Hypothyroidism (acquired) Pneumonia Constipation GI bleed Chronic deep vein thrombosis of left lower extremity Sinusitis Hematuria Kidney stones Hyperlipidemia DVT (deep venous thrombosis) Osteopenia (11/29/12) Thyroid disease Compression fracture of lumbar vertebra Surgical History History of tubal ligation History of D&C History of Hx of colonoscopy Family History Mother Leukemia Hypertension Father Myocardial infarction Diabetes Other Family history non-contributory Denies family history of Ovarian cancer Prostate cancer Breast cancer Lung cancer Social History Smoking Status: Never smoker Tobacco Type: Cigarettes Age Started Using Tobacco: 17; Age Quit Using Tobacco: 73; packs per day: 1; Cigarettes Per Day: Only while driving; Second Hand Exposure: No; Do You Dip or Chew Tobacco: No; Hx Alcohol Use: No Hx Substance Use: Yes Last Used Substance: Unknown Preferred Language: Swiss Communication Ability: Effective Visual Impairment: No Limitations Hearing Ability: Use of Hearing Aid 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 Specialist Required: No Beliefs That Will Affect Care: None marital status: Current Living Situation: Alone and Personal Care Facility Current Living Situation Comment: Has a caregiver current occupational status: retired 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 Safe at Home: Yes Childhood Exposure to Second-Hand Smoke: Yes caffeine: No Dental Care, Regularly: No Physical Activity Frequency: Does not Exercise Seatbelt Use: always Sunscreen Use: No Assistive Devices: Walker Allergies Allergies Allergy/AdvReac Type Severity Reaction Status Date / Time azithromycin [From Zithromax] Allergy Intermediate HIVES Verified 10/16/23 20:51 nitrofurantoin Allergy Intermediate HIVES,ITCHI Verified 10/16/23 20:51 NG tramadol AdvReac Mild nausea Verified 10/16/23 20:51 Home Meds Home Medications Medication Instructions Recorded Confirmed lancets 33 gauge (Hemant Tovar #100 ea 07/13/20 10/07/23 Lancets) blood sugar diagnostic (Samueluch #10 ea 12/08/21 10/07/23 Ultra Blue Test Strip) calcium carbonate (Calcium 500) 500 mg PO Q8H PRN Indigestion 06/29/22 10/16/23 cyanocobalamin (vitamin B-12) 1,000 mcg IM MONTHLY 10/08/23 10/16/23 1,000 mcg/mL injection solution acetaminophen 325 mg tablet 650 mg PO Q6H PRN Pain 10/16/23 10/16/23 (Tylenol) albuterol sulfate 90 mcg/actuation 2 puff inhalation DAILY PRN 10/16/23 10/16/23 aerosol inhaler (Ventolin HFA) Wheezing bisacodyl 10 mg rectal suppository 10 mg CO DAILY PRN Constipation 10/16/23 10/16/23 calcium carbonate 500 mg-vitamin 1 tab PO DAILY 10/16/23 10/16/23 D3 5 mcg (200 unit) tablet (Calcium 500 + D) diclofenac sodium 1 % topical gel 2 g topical BID 10/16/23 10/16/23 docusate sodium 100 mg capsule 100 mg PO BID 10/16/23 10/16/23 enoxaparin 30 mg/0.3 mL 30 mg subcut DAILY 10/16/23 10/16/23 subcutaneous syringe (Lovenox) famotidine 10 mg tablet 10 mg PO DAILY 10/16/23 10/16/23 latanoprost 0.005 % eye drops 1 drp OPB HS 10/16/23 10/16/23 magnesium hydroxide 400 mg/5 mL 30 ml PO DAILY PRN Constipation 10/16/23 10/16/23 oral suspension (Milk of Magnesia) naloxone 4 mg/actuation nasal spray 4 mg intranasal DIRECTED PRN 10/16/23 10/16/23 Opioid Overdose ondansetron 4 mg disintegrating 4 mg PO Q4H PRN NAUSEA/VOMITING 10/16/23 10/16/23 tablet oxycodone 5 mg tablet 5 mg PO Q4H PRN Pain (Scale Score 10/16/23 10/16/23 4-10) polyethylene glycol 3350 17 17 g PO QDL PRN Constipation 10/16/23 10/16/23 gram/dose oral powder (Miralax) sennosides 8.6 mg tablet (senna) 17.2 mg PO HS 10/16/23 10/16/23 sennosides 8.6 mg-docusate sodium 1 tab-cap PO QDL PRN Constipation 10/16/23 10/16/23 50 mg tablet (Senokot-S) Previous Rx's Medication Instructions Recorded atorvastatin 80 mg tablet 80 mg PO HS #90 tabs 02/12/23 fluticasone propionate 50 2 spray intranasal QAM PRN Allergy 03/01/23 mcg/actuation nasal Symptoms #16 grams spray,suspension carbidopa 10 mg-levodopa 100 mg 2 tab PO QID@0800,1200,1600,2000 06/13/23 tablet 30 days #240 tabs levothyroxine 88 mcg tablet 88 mcg PO DAILYBB #90 tabs 08/05/23 Portable Oxygen E0431 #1 ea 09/13/23 Oxygen Home E0424 #1 ea 09/20/23 duloxetine 30 mg capsule,delayed 30 mg PO DAILY #90 caps 09/30/23 release (Cymbalta) Results & Data (ED) Vital Signs Vital Signs - 24 hr 10/16/23 19:26 10/16/23 19:30 10/16/23 19:39 Temperature Temperature Source Pulse Rate 114 H Pulse Rate [Apical] Pulse Rate from SpO2 Sensor 122 H 120 H Pulse Rhythm Pulse Rhythm [Apical] Pulse Strength Pulse Strength [Apical] Respiratory Rate Respiratory Effort / Characteristics Respiratory Depth Respiratory Pattern Blood Pressure Blood Pressure [Right Arm] Blood Pressure Mean Blood Pressure Mean [Right Arm] Blood Pressure Position Blood Pressure Position [Right Arm] Pulse Oximetry 96 97 Oxygen Delivery Method Oxygen Flow Rate Sepsis Recent Fever Within 48 Hours Sepsis New/Unexplained Change in Mental Status Sepsis Action Taken by Nursing 10/16/23 19:40 10/16/23 19:40 10/16/23 19:40 Temperature 36.5 C Temperature Source Oral Pulse Rate 115 H Pulse Rate [Apical] Pulse Rate from SpO2 Sensor Pulse Rhythm Irregular Pulse Rhythm [Apical] Pulse Strength Normal Pulse Strength [Apical] Respiratory Rate 37 H Respiratory Effort / Characteristics Spontaneous Labored Spontaneous Labored Respiratory Depth Normal Normal Respiratory Pattern Tachypnea Tachypnea Blood Pressure 107/87 107/87 Blood Pressure [Right Arm] Blood Pressure Mean 93 91 Blood Pressure Mean [Right Arm] Blood Pressure Position Lying Blood Pressure Position [Right Arm] Pulse Oximetry 99 Oxygen Delivery Method Non-rebreather Non-rebreather Oxygen Flow Rate 15 10 Sepsis Recent Fever Within 48 Hours No Sepsis New/Unexplained Change in Mental Status Yes Sepsis Action Taken by Nursing Physician Notified 10/16/23 19:40 10/16/23 20:11 10/16/23 20:12 Temperature Temperature Source Pulse Rate 114 H 138 H 130 H Pulse Rate [Apical] Pulse Rate from SpO2 Sensor 115 H 111 H 116 H Pulse Rhythm Pulse Rhythm [Apical] Pulse Strength Pulse Strength [Apical] Respiratory Rate 33 H 32 H 27 H Respiratory Effort / Characteristics Respiratory Depth Respiratory Pattern Blood Pressure Blood Pressure [Right Arm] Blood Pressure Mean Blood Pressure Mean [Right Arm] Blood Pressure Position Blood Pressure Position [Right Arm] Pulse Oximetry 98 96 98 Oxygen Delivery Method Oxygen Flow Rate Sepsis Recent Fever Within 48 Hours Sepsis New/Unexplained Change in Mental Status Sepsis Action Taken by Nursing 10/16/23 20:12 10/16/23 20:20 10/16/23 20:28 Temperature Temperature Source Pulse Rate 116 H Pulse Rate [Apical] Pulse Rate from SpO2 Sensor 116 H Pulse Rhythm Pulse Rhythm [Apical] Pulse Strength Pulse Strength [Apical] Respiratory Rate 36 H Respiratory Effort / Characteristics Respiratory Depth Respiratory Pattern Blood Pressure 124/82 136/84 Blood Pressure [Right Arm] Blood Pressure Mean 102 99 Blood Pressure Mean [Right Arm] Blood Pressure Position Blood Pressure Position [Right Arm] Pulse Oximetry 96 Oxygen Delivery Method Oxygen Flow Rate Sepsis Recent Fever Within 48 Hours Sepsis New/Unexplained Change in Mental Status Sepsis Action Taken by Nursing 10/16/23 20:28 10/16/23 20:30 10/16/23 20:30 Temperature Temperature Source Pulse Rate 112 H 110 H Pulse Rate [Apical] Pulse Rate from SpO2 Sensor 116 H 110 H Pulse Rhythm Pulse Rhythm [Apical] Pulse Strength Pulse Strength [Apical] Respiratory Rate 31 H 36 H Respiratory Effort / Characteristics Respiratory Depth Respiratory Pattern Blood Pressure 142/82 H Blood Pressure [Right Arm] Blood Pressure Mean 95 Blood Pressure Mean [Right Arm] Blood Pressure Position Blood Pressure Position [Right Arm] Pulse Oximetry 94 95 Oxygen Delivery Method Oxymask Oxymask Oxygen Flow Rate 6 6 Sepsis Recent Fever Within 48 Hours Sepsis New/Unexplained Change in Mental Status Sepsis Action Taken by Nursing 10/16/23 20:40 10/16/23 20:50 10/16/23 21:01 Temperature Temperature Source Pulse Rate 109 H 109 H Pulse Rate [Apical] Pulse Rate from SpO2 Sensor 109 H 110 H Pulse Rhythm Pulse Rhythm [Apical] Pulse Strength Pulse Strength [Apical] Respiratory Rate 36 H 37 H Respiratory Effort / Characteristics Respiratory Depth Respiratory Pattern Blood Pressure Blood Pressure [Right Arm] Blood Pressure Mean Blood Pressure Mean [Right Arm] Blood Pressure Position Blood Pressure Position [Right Arm] Pulse Oximetry 100 96 100 Oxygen Delivery Method Oxymask Oxymask Oxymask Oxygen Flow Rate 6 6 6 Sepsis Recent Fever Within 48 Hours Sepsis New/Unexplained Change in Mental Status Sepsis Action Taken by Nursing 10/16/23 21:07 10/16/23 21:14 Temperature Temperature Source Pulse Rate 104 H Pulse Rate [Apical] 104 H Pulse Rate from SpO2 Sensor Pulse Rhythm Regular Pulse Rhythm [Apical] Regular Pulse Strength Pulse Strength [Apical] Normal Respiratory Rate 36 H 38 H Respiratory Effort / Characteristics Non-Labored Spontaneous Respiratory Depth Normal Respiratory Pattern Regular Blood Pressure Blood Pressure [Right Arm] 138/85 Blood Pressure Mean Blood Pressure Mean [Right Arm] 102 Blood Pressure Position Blood Pressure Position [Right Arm] Lying Pulse Oximetry 98 97 Oxygen Delivery Method Nasal Cannula Nasal Cannula Oxygen Flow Rate 2 2 Sepsis Recent Fever Within 48 Hours Sepsis New/Unexplained Change in Mental Status Sepsis Action Taken by Nursing Laboratory Data 10/16/23 19:35 10/16/23 19:35 Lab Results 10/16/23 10/16/23 10/16/23 Range/Units 19:32 19:35 20:25 WBC 9.90 (4.8-10.8) K/ul RBC 4.20 (4.20-5.40) M/uL Hgb 14.3 (12.0-16.0) g/dl POC Hgb 16.0 (12.0-16.0) g/dl Hct 43.0 (37.0-47.0) % POC Hct 47 (37-47) % MCV 102.4 H (80.0-100.0) fL MCH 34.0 (25.0-34.0) pg MCHC 33.3 (32.0-36.0) g/dL RDW Std Deviation 61.0 H (36.4-46.3) fL RDW Coeff of Damien 15.9 H (11.5-14.5) % Plt Count 291 (130-400) K/uL MPV 11.4 (9.4-12.4) fL Immature Gran % (Auto) 0.4 % Neut % (Auto) 70.5 % Lymph % (Auto) 22.6 % [place] % (Auto) 6.0 % Eos % (Auto) 0.3 % Baso % (Auto) 0.2 % Neut # (Auto) 6.98 H (1.40-6.50) K/uL Lymph # (Auto) 2.24 (1.20-3.40) K/uL [place] # (Auto) 0.59 (0.11-0.59) K/uL Eos # (Auto) 0.03 (0.00-0.50) K/uL Baso # (Auto) 0.02 (0.00-0.20) K/uL Immature Gran # (Auto) 0.04 (0.01-0.20) K/uL VBG pH 7.44 H (7.36-7.41) VBG pCO2 44 (38-50) mmHg VBG pO2 42 mmHg VBG HCO3 30 mmol/L VBG O2 Saturation 74.6 % VBG Base Excess 5.0 mEq/L POC Sodium 132 L (135-144) mmol/L Sodium 133 L (136-145) mmol/L POC Potassium 5.3 H (3.3-5.0) mmol/L Potassium 5.1 (3.5-5.1) mmol/L POC Chloride 95 L (101-112) mmol/L Chloride 94 L (98-107) mmol/L Carbon Dioxide 27 (21-32) mmol/L POC Total CO2 33 H (24-31) mmol/L Anion Gap 12 H (3-11) POC Anion Gap 10.0 L (16-25) mmol/L POC BUN 29 H (7-18) mg/dl BUN 22 (6-23) mg/dl Creatinine 1.23 H (0.6-1.2) mg/dl POC Creatinine 1.3 (0.6-1.3) mg/dl Est Cr Clr Drug Dosing 28.9 ml/min Est GFR ( Amer) 48.0 ml/min Est GFR (Non-Af Amer) 41.4 ml/min BUN/Creatinine Ratio 17.9 (10-20) Glucose 135 H (70-99(Fasting)) mg/dl POC Glucose (other) 133 H (70-99) mg/dl Calcium 9.8 (8.6-10.3) mg/dl POC Ioniz Calcium [place] 1.10 L (1.12-1.32) mmol/l Total Bilirubin 0.6 (0.2-1.0) mg/dl AST 79 H (13-39) U/L ALT 35 (7-52) U/L Alkaline Phosphatase 700 H (34-104) U/L Troponin I High Sens 13.3 (0-14) pg/ml Total Protein 7.8 (6.0-8.3) gm/dl Albumin 3.9 (3.4-5.0) gm/dl Globulin 3.9 (2.5-4.0) gm/dl Albumin/Globulin Ratio 1.0 (0.9-2) Lipase 29 (11-82) U/L Administered Medications Discontinued Medications Sodium Chloride (Nss) 1,000 mls @ 999 mls/hr IV .Q1H1M ONE Stop: 10/16/23 20:36 Last Infusion: 10/16/23 21:58 Dose: Infused Documented By: Admin: 10/16/23 20:57 Dose: 999 mls/hr Documented By: KALMESH Cefepime HCl (Maxipime) 2,000 mg in 20 mls @ 5 mls/min IV NOW STA; Protocol Stop: 10/16/23 19:45 Last Admin: 10/16/23 20:58 Dose: 5 mls/min Documented By: KAMLESH Ioversol (Optiray 320 125ml) 118 ml IV ONCE ONE Stop: 10/16/23 19:55 Last Admin: 10/16/23 19:54 Dose: 118 ml Documented By: CONRAD Miscellaneous (Rapid Sequence Induction Bag) Confirm Administered Dose 1 each N/A .STK-MED ONE Stop: 10/16/23 19:15 Last Admin: 10/16/23 21:37 Dose: Not Given Documented By: KAMLESH Imaging Data Radiologist's Impression: Head CT 10/16/23 19:24 Exam(s): CT HEAD Without Contrast EXAM: CT Head Without Intravenous Contrast CLINICAL HISTORY: Reason for exam: ams. TECHNIQUE: Axial computed tomography images of the head/brain without intravenous contrast. CTDI is 34.93 mGy and DLP is 624.41 mGy-cm. Automated exposure control was utilized for the study. A dose lowering technique was utilized adhering to the principles of ALARA. COMPARISON: 10/08/2023. FINDINGS: Brain: Mild to moderate generalized brain atrophy. Decreased attenuation within the deep white matter compatible with microangiopathic white matter disease. No hemorrhage. Ventricles: Unremarkable. No ventriculomegaly. Bones/joints: Unremarkable. No acute fracture. Soft tissues: Unremarkable. Sinuses: Bilateral paranasal sinuses are clear. Mastoid air cells: Opacification of the right mastoid which may indicate effusion. Normal left mastoid . IMPRESSION: Chronic changes as described with no acute intracranial hemorrhage or space-occupying lesion. Electronically signed by: Shannan Cortes MD 10/16/23 21:03 PM Discharge Plan Visit Data Chief Complaint: Respiratory Distress Stated Complaint: HYPOXIC ED Provider: Gee Eaton Discharge Problem: Acute alteration in mental status, Hypoxia, Hyponatremia Discharge Instructions Interventions: ED Discharge Assessment Last Done: 10/16/23 22:56
[2023-10-16 19:45] LABS: iSTAT Creatinine 1.3 mg/dl (0.6-1.3); iSTAT Ionized Calcium 1.1 mmol/l (1.12-1.32); iSTAT Potassium 5.3 mmol/L (3.3-5.0)
[2023-10-16] MEDS: OPTIRAY 320 125ml IV ONE (19:54)
[2023-10-16 20:12] LABS: Basophils # (auto) 0.02 K/uL (0.00-0.20); Basophils % (auto) 0.2 %; Eosinophils # (auto) 0.03 K/uL (0.00-0.50); Eosinophils % (auto) 0.3 %; Hemoglobin 14.3 g/dl (12.0-16.0); Immature Granulocytes # (auto) 0.04 K/uL (0.01-0.20); Immature Granulocytes % (auto) 0.4 %; Lymphocytes # (auto) 2.24 K/uL (1.20-3.40); Lymphocytes % (auto) 22.6 %; Mean Corpuscular Hgb Conc 33.3 g/dL (32.0-36.0); Mean Corpuscular Volume 102.4 fL (80.0-100.0); Mean Platelet Volume 11.4 fL (9.4-12.4); Monocytes # (auto) 0.59 K/uL (0.11-0.59); Neutrophils # (auto) 6.98 K/uL (1.40-6.50); Neutrophils % (auto) 70.5 %; Platelet Count 291 K/uL (130-400); RDW Coefficient of Variation 15.9 % (11.5-14.5)
[2023-10-16 20:38] LABS: Albumin Level 3.9 gm/dl (3.4-5.0); BUN Creatinine Ratio 17.9 (10-20); Bilirubin,Total 0.6 mg/dl (0.2-1.0); Calcium 9.8 mg/dl (8.6-10.3); Creatinine Clr Calc Pharmacy 28.9 ml/min; Est GFR (Non-African American) 41.4 ml/min; Globulin 3.9 gm/dl (2.5-4.0); Potassium 5.1 mmol/L (3.5-5.1); Total Protein 7.8 gm/dl (6.0-8.3)
[2023-10-16 20:43] LABS: HCO3 VBG 30 mmol/L; Oxygen Saturation VBG 74.6 %; PCO2 VBG 44 mmHg (38-50); PO2 VBG 42 mmHg; pH VBG 7.44 (7.36-7.41)
[2023-10-16 20:44] LABS: Troponin I High Sensitivity 13.3 pg/ml (0-14)
[2023-10-16] MEDS: SODIUM CHLORIDE 0.9% 1,000 ML IV ONE (20:57)
[2023-10-16] MEDS: CEFEPIME 2,000 MG/20 ML VIAL IV STA (20:58)
--- NOTE | 2023-10-16 21:04 | CT Scan Report ---
Exam(s): CT HEAD Without Contrast EXAM: CT Head Without Intravenous Contrast CLINICAL HISTORY: Reason for exam: ams. TECHNIQUE: Axial computed tomography images of the head/brain without intravenous contrast. CTDI is 34.93 mGy and DLP is 624.41 mGy-cm. Automated exposure control was utilized for the study. A dose lowering technique was utilized adhering to the principles of ALARA. COMPARISON: 10/08/2023. FINDINGS: Brain: Mild to moderate generalized brain atrophy. Decreased attenuation within the deep white matter compatible with microangiopathic white matter disease. No hemorrhage. Ventricles: Unremarkable. No ventriculomegaly. Bones/joints: Unremarkable. No acute fracture. Soft tissues: Unremarkable. Sinuses: Bilateral paranasal sinuses are clear. Mastoid air cells: Opacification of the right mastoid which may indicate effusion. Normal left mastoid . IMPRESSION: Chronic changes as described with no acute intracranial hemorrhage or space-occupying lesion. Electronically signed by: Shannan Cortes MD 10/16/23 21:03 PM
[2023-10-16] MEDS: RAPID SEQUENCE INDUCTION BAG ONE (21:37)
--- NOTE | 2023-10-16 21:50 | History & Physical Report ---
Date of Service October 16, 2023 Assessment & Plan (1) Acute alteration in mental status: Plan: Unclear etiology - suspect aspiration event with hypoxia. Elevated procalcitonin, possible developing PNA -Admit to PCU -Continue supplemental O2 -Zosyn -Check UA -Speech/Swallow evaluation -Aspiration precautions (2) Hypoxia: Plan: Likely secondary to aspiration, developing PNA -Maintain aspiration precautions -Speech and swallow evaluation -Continue supplemental O2 as needed -Albuterol PRN (3) Closed T2 fracture: Plan: Chronic -Maintain hard collar in place -Oxycodone PRN pain (4) Hypothyroidism: Plan: Chronic. Stable -Continue Levothyroxine (5) Parkinsons disease: Plan: Chronic. Daughter reports frequent falls and balance issues. 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 Plan is to return home ideally. -Continue Carbidopa/Levodopa -PT/OT evaluation History of Present Illness Chief Complaint: unresponsive episode Primary Care Provider: [facility] Elyse Perez is an 78yo female with multiple medical comorbidities presenting from [facility] after an episode of unresponsiveness. Patient recently sustained a ground level fall resulting in a subarachnoid hemorrhage and T1 fracture. She presented to [facility] ER on 10/08/23 and was subsequently transferred to [facility] for Neurosurgical evaluation. She was treated with Keppra and a cervical collar was placed and she was ultimately discharged to [facility] on 10/14/23. Patient's daughter provides history. She reports some episodes of hypoxia while at [facility] with witnessed aspiration events. Today she had an episode of confusion around 15:00. She was hypoxic. EMS brought her to [facility]. On arrival patient tachycardic and tachypneic, hypoxic requiring supplemental O2. She was initially on 15L by NRB and has since been weaned down to 4L NC. No report of fever, chills, chest pain, abdominal pain, vomiting or diarrhea. Allergies Allergy/AdvReac Type Severity Reaction Status Date / Time azithromycin [From Zithromax] Allergy Intermediate HIVES Verified 10/16/23 20:51 nitrofurantoin Allergy Intermediate HIVES,ITCHI Verified 10/16/23 20:51 NG tramadol AdvReac Mild nausea Verified 10/16/23 20:51 Home Medications Medication Instructions Recorded Confirmed Type lancets 33 gauge ([employer] Delsammy #100 ea 07/13/20 10/07/23 History Lancets) blood sugar diagnostic (OneTouch #10 ea 12/08/21 10/07/23 History Ultra Blue Test Strip) calcium carbonate (Calcium 500) 500 mg PO Q8H PRN Indigestion 06/29/22 10/16/23 History atorvastatin 80 mg tablet 80 mg PO HS #90 tabs 02/12/23 10/16/23 Rx fluticasone propionate 50 2 spray intranasal QAM PRN Allergy 03/01/23 10/16/23 Rx mcg/actuation nasal Symptoms #16 grams spray,suspension carbidopa 10 mg-levodopa 100 mg 2 tab PO QID@0800,1200,1600,2000 06/13/23 10/16/23 Rx tablet 30 days #240 tabs levothyroxine 88 mcg tablet 88 mcg PO DAILYBB #90 tabs 08/05/23 10/16/23 Rx Portable Oxygen E0431 #1 ea 09/13/23 10/07/23 Rx Oxygen Home E0424 #1 ea 09/20/23 10/07/23 Rx duloxetine 30 mg capsule,delayed 30 mg PO DAILY #90 caps 09/30/23 10/16/23 Rx release (Cymbalta) cyanocobalamin (vitamin B-12) 1,000 mcg IM MONTHLY 10/08/23 10/16/23 History 1,000 mcg/mL injection solution acetaminophen 325 mg tablet 650 mg PO Q6H PRN Pain 10/16/23 10/16/23 History (Tylenol) albuterol sulfate 90 mcg/actuation 2 puff inhalation DAILY PRN 10/16/23 10/16/23 History aerosol inhaler (Ventolin HFA) Wheezing bisacodyl 10 mg rectal suppository 10 mg WA DAILY PRN Constipation 10/16/23 10/16/23 History calcium carbonate 500 mg-vitamin 1 tab PO DAILY 10/16/23 10/16/23 History D3 5 mcg (200 unit) tablet (Calcium 500 + D) diclofenac sodium 1 % topical gel 2 g topical BID 10/16/23 10/16/23 History docusate sodium 100 mg capsule 100 mg PO BID 10/16/23 10/16/23 History enoxaparin 30 mg/0.3 mL 30 mg subcut DAILY 10/16/23 10/16/23 History subcutaneous syringe (Lovenox) famotidine 10 mg tablet 10 mg PO DAILY 10/16/23 10/16/23 History latanoprost 0.005 % eye drops 1 drp OPB HS 10/16/23 10/16/23 History magnesium hydroxide 400 mg/5 mL 30 ml PO DAILY PRN Constipation 10/16/23 10/16/23 History oral suspension (Milk of Magnesia) naloxone 4 mg/actuation nasal spray 4 mg intranasal DIRECTED PRN 10/16/23 10/16/23 History Opioid Overdose ondansetron 4 mg disintegrating 4 mg PO Q4H PRN NAUSEA/VOMITING 10/16/23 10/16/23 History tablet oxycodone 5 mg tablet 5 mg PO Q4H PRN Pain (Scale Score 10/16/23 10/16/23 History 4-10) polyethylene glycol 3350 17 17 g PO QDL PRN Constipation 10/16/23 10/16/23 History gram/dose oral powder (Miralax) sennosides 8.6 mg tablet (senna) 17.2 mg PO HS 10/16/23 10/16/23 History sennosides 8.6 mg-docusate sodium 1 tab-cap PO QDL PRN Constipation 10/16/23 10/16/23 History 50 mg tablet (Senokot-S) Past Med/Surg History Medical History (Updated 10/17/23 @ 03:19 by Payton Velasquez DO) Parkinsons disease Tobacco abuse counseling Hypoxemia Physical deconditioning Pulmonary emphysema Stage 1 skin ulcer of sacral region CKD (chronic kidney disease), stage IV Megaloblastic anemia Diet-controlled diabetes mellitus Tremor History of ischemic stroke Second degree AV block, Mobitz type I Ischemic stroke Stroke-like symptoms Chronic deep vein thrombosis (DVT) Prediabetes Iron deficiency anemia Secondary hyperparathyroidism of renal origin Leg length discrepancy Acute kidney injury Ankle edema, bilateral Arthritis Asymptomatic menopausal state Blood glucose abnormal Cardiomyopathy Cholelithiasis Chronic GERD Chronic fatigue syndrome Chronic laryngitis Chronic pharyngitis Cigarette smoker motivated to quit Cough 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 Deep vein thrombosis of distal lower extremity Depression Dermatitis, eczematoid Diabetes mellitus (11/29/12) Dizziness Dyspnea on exertion Dysuria Gastropathy Hearing loss Hematuria, microscopic Herpes simplex Hoarseness Hyperglycemia Hypothyroidism Interstitial lung disease Ischemic colitis Laryngitis Lightheadedness Low back pain Lumbar spinal stenosis Muscle spasm NSTEMI (non-ST elevated myocardial infarction) Nasal dryness Nicotine dependence 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 Recurrent UTI Rib pain on right side SNHL (sensorineural hearing loss) Secondary hyperparathyroidism (of renal origin) Shortness of breath Solitary pulmonary nodule Subsequent non-ST elevation (NSTEMI) myocardial infarction Takotsubo syndrome Tendinitis of left rotator cuff Type 2 diabetes mellitus without complication Vertigo GERD (gastroesophageal reflux disease) Chronic kidney disease Hypothyroidism (acquired) Pneumonia Constipation GI bleed Chronic deep vein thrombosis of left lower extremity Sinusitis Hematuria Kidney stones Hyperlipidemia DVT (deep venous thrombosis) Osteopenia (11/29/12) Thyroid disease Compression fracture of lumbar vertebra Surgical History History of tubal ligation History of D&C History of Hx of colonoscopy Family History Mother , age 76 with leukemia Leukemia Hypertension Father , age 86 with heart issues Myocardial infarction Diabetes Other Family history non-contributory Denies family history of Ovarian cancer Prostate cancer Breast cancer Lung cancer Social History Smoking Status: Never smoker Tobacco Type: Cigarettes Age Started Using Tobacco: 17; Age Quit Using Tobacco: 73; packs per day: 1; Cigarettes Per Day: Only while driving; Second Hand Exposure: No; Do You Dip or Chew Tobacco: No; Hx Alcohol Use: No Hx Substance Use: Yes Last Used Substance: Unknown Preferred Language: Bulgarian Communication Ability: Effective Visual Impairment: No Limitations Hearing Ability: Use of Hearing Aid Rug Receiving Clerk Required: No Beliefs That Will Affect Care: None marital status: Current Living Situation: Alone and Personal Care Facility Current Living Situation Comment: Has a caregiver current occupational status: retired 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 Safe at Home: Yes Childhood Exposure to Second-Hand Smoke: Yes caffeine: No Dental Care, Regularly: No Physical Activity Frequency: Does not Exercise Seatbelt Use: always Sunscreen Use: No Assistive Devices: Walker Review of Systems Review of Systems: All systems reviewed & are unremarkable except as noted in HPI & below Physical Exam Physical Exam: General: patient ill in appearance, hard of hearing, oriented x 3 Skin: warm, dry, intact, no rashes or lesions HEENT: NC/AT, PERRL, EOMI, anicteric sclera, conjunctiva without injection, external ear normal to inspection and nontender, nares patent, moist mucus membranes, dentition intact, no oropharyngeal lesions, neck supple, trachea midline, no LAD, no thyromegaly, no JVD Heart: +S1/S2, regular, tachycardic, no m/r/g Lungs: coarse breath sounds bilaterally Abd: +BS, soft, NT/ND, no masses/organomegaly/ascites Ext: warm, 2+ pulses in UE/LE bilaterally, no clubbing/cyanosis or edema Neuro: grossly non-focal Results & Data Results & Data Vital Signs (Past 12 Hours) Vital Signs Temp Pulse Pulse Resp BP BP Pulse Ox 10/16/23 21:14 104 H 38 H 97 10/16/23 21:07 104 H 36 H 138/85 98 10/16/23 21:01 100 10/16/23 20:50 109 H 37 H 96 10/16/23 20:40 109 H 36 H 100 10/16/23 20:30 110 H 36 H 95 10/16/23 20:30 142/82 H 10/16/23 20:28 112 H 31 H 94 10/16/23 20:28 136/84 10/16/23 20:20 116 H 36 H 96 10/16/23 20:12 124/82 10/16/23 20:12 130 H 27 H 98 10/16/23 20:11 138 H 32 H 96 10/16/23 19:40 114 H 33 H 98 10/16/23 19:40 107/87 10/16/23 19:40 36.5 C 115 H 37 H 107/87 99 10/16/23 19:40 10/16/23 19:39 114 H 10/16/23 19:30 97 10/16/23 19:26 96 O2 Del Method O2 Flow Rate 10/16/23 21:14 Nasal Cannula 2 10/16/23 21:07 Nasal Cannula 2 10/16/23 21:01 Oxymask 6 10/16/23 20:50 Oxymask 6 10/16/23 20:40 Oxymask 6 10/16/23 20:30 Oxymask 6 10/16/23 20:30 10/16/23 20:28 Oxymask 6 10/16/23 20:28 10/16/23 20:20 10/16/23 20:12 10/16/23 20:12 10/16/23 20:11 10/16/23 19:40 10/16/23 19:40 10/16/23 19:40 Non-rebreather 10 10/16/23 19:40 Non-rebreather 15 10/16/23 19:39 10/16/23 19:30 10/16/23 19:26 Laboratory Results Laboratory Results WBC 9.90 K/ul (4.8-10.8) 10/16/23 19:35 RBC 4.20 M/uL (4.20-5.40) 10/16/23 19:35 Hgb 14.3 g/dl (12.0-16.0) 10/16/23 19:35 POC Hgb 16.0 g/dl (12.0-16.0) 10/16/23 19:32 Hct 43.0 % (37.0-47.0) 10/16/23 19:35 POC Hct 47 % (37-47) 10/16/23 19:32 MCV 102.4 fL (80.0-100.0) H 10/16/23 19:35 MCH 34.0 pg (25.0-34.0) 10/16/23 19:35 MCHC 33.3 g/dL (32.0-36.0) 10/16/23 19:35 RDW Std Deviation 61.0 fL (36.4-46.3) H 10/16/23 19:35 RDW Coeff of Damien 15.9 % (11.5-14.5) H 10/16/23 19:35 Plt Count 291 K/uL (130-400) 10/16/23 19:35 MPV 11.4 fL (9.4-12.4) 10/16/23 19:35 Immature Gran % (Auto) 0.4 % 10/16/23 19:35 Neut % (Auto) 70.5 % 10/16/23 19:35 Lymph % (Auto) 22.6 % 10/16/23 19:35 Meeker % (Auto) 6.0 % 10/16/23 19:35 Eos % (Auto) 0.3 % 10/16/23 19:35 Baso % (Auto) 0.2 % 10/16/23 19:35 Neut # (Auto) 6.98 K/uL (1.40-6.50) H 10/16/23 19:35 Lymph # (Auto) 2.24 K/uL (1.20-3.40) 10/16/23 19:35 Meeker # (Auto) 0.59 K/uL (0.11-0.59) 10/16/23 19:35 Eos # (Auto) 0.03 K/uL (0.00-0.50) 10/16/23 19:35 Baso # (Auto) 0.02 K/uL (0.00-0.20) 10/16/23 19:35 Immature Gran # (Auto) 0.04 K/uL (0.01-0.20) 10/16/23 19:35 VBG pH 7.44 (7.36-7.41) H 10/16/23 20:25 VBG pCO2 44 mmHg (38-50) 10/16/23 20:25 VBG pO2 42 mmHg 10/16/23 20:25 VBG HCO3 30 mmol/L 10/16/23 20:25 VBG O2 Saturation 74.6 % 10/16/23 20:25 VBG Base Excess 5.0 mEq/L 10/16/23 20:25 POC Sodium 132 mmol/L (135-144) L 10/16/23 19:32 Sodium 133 mmol/L (136-145) L 10/16/23 19:35 POC Potassium 5.3 mmol/L (3.3-5.0) H 10/16/23 19:32 Potassium 5.1 mmol/L (3.5-5.1) 10/16/23 19:35 POC Chloride 95 mmol/L (101-112) L 10/16/23 19:32 Chloride 94 mmol/L (98-107) L 10/16/23 19:35 Carbon Dioxide 27 mmol/L (21-32) 10/16/23 19:35 POC Total CO2 33 mmol/L (24-31) H 10/16/23 19:32 Anion Gap 12 (3-11) H 10/16/23 19:35 POC Anion Gap 10.0 mmol/L (16-25) L 10/16/23 19:32 POC BUN 29 mg/dl (7-18) H 10/16/23 19:32 BUN 22 mg/dl (6-23) 10/16/23 19:35 Creatinine 1.23 mg/dl (0.6-1.2) H 10/16/23 19:35 POC Creatinine 1.3 mg/dl (0.6-1.3) 10/16/23 19:32 Est Cr Clr Drug Dosing 28.9 ml/min 10/16/23 19:35 Est GFR ( Amer) 48.0 ml/min 10/16/23 19:35 Est GFR (Non-Af Amer) 41.4 ml/min 10/16/23 19:35 BUN/Creatinine Ratio 17.9 (10-20) 10/16/23 19:35 Glucose 135 mg/dl (70-99(Fasting)) H 10/16/23 19:35 POC Glucose (other) 133 mg/dl (70-99) H 10/16/23 19:32 Calcium 9.8 mg/dl (8.6-10.3) 10/16/23 19:35 POC Ioniz Calcium [place]ona 1.10 mmol/l (1.12-1.32) L 10/16/23 19:32 Phosphorus 3.5 mg/dl (2.5-4.9) 10/16/23 19:35 Magnesium 1.7 mg/dl (1.7-2.4) 10/16/23 19:35 Total Bilirubin 0.6 mg/dl (0.2-1.0) 10/16/23 19:35 AST 79 U/L (13-39) H 10/16/23 19:35 ALT 35 U/L (7-52) 10/16/23 19:35 Alkaline Phosphatase 700 U/L (34-104) H 10/16/23 19:35 Troponin I High Sens 13.3 pg/ml (0-14) 10/16/23 19:35 B-Natriuretic Peptide 182 pg/ml (0-100) H 10/16/23 23:38 Total Protein 7.8 gm/dl (6.0-8.3) 10/16/23 19:35 Albumin 3.9 gm/dl (3.4-5.0) 10/16/23 19:35 Globulin 3.9 gm/dl (2.5-4.0) 10/16/23 19:35 Albumin/Globulin Ratio 1.0 (0.9-2) 10/16/23 19:35 Lipase 29 U/L (11-82) 10/16/23 19:35 Procalcitonin 1.66 ng/ml (0-0.5) H 10/16/23 23:38 TSH 2.440 uIu/ml (0.300-4.500) 10/16/23 19:[address] 10/16/23 19:24 Exam(s): CT HEAD Without Contrast EXAM: CT Head Without Intravenous Contrast CLINICAL HISTORY: Reason for exam: ams. TECHNIQUE: Axial computed tomography images of the head/brain without intravenous contrast. CTDI is 34.93 mGy and DLP is 624.41 mGy-cm. Automated exposure control was utilized for the study. A dose lowering technique was utilized adhering to the principles of ALARA. COMPARISON: 10/08/2023. FINDINGS: Brain: Mild to moderate generalized brain atrophy. Decreased attenuation within the deep white matter compatible with microangiopathic white matter disease. No hemorrhage. Ventricles: Unremarkable. No ventriculomegaly. Bones/joints: Unremarkable. No acute fracture. Soft tissues: Unremarkable. Sinuses: Bilateral paranasal sinuses are clear. Mastoid air cells: Opacification of the right mastoid which may indicate effusion. Normal left mastoid . IMPRESSION: Chronic changes as described with no acute intracranial hemorrhage or space-occupying lesion. Electronically signed by: Shannan Cortes MD 10/16/23 21:03 PM PG Care Time/CCT Total # of Minutes Spent Total Time Spent with Patient: Total time spent is greater than 50% in coordination of care (as documented) at patient's floor/unit and/or counseling patient: Coding Level of Care Code 88973 INT INP/OBS CARE 3/75MIN Diagnoses Acute alteration in mental status R41.82 Hypoxia R09.02 Closed T2 fracture S22.029A Hypothyroidism E03.9 Parkinsons disease G20.A1
[2023-10-16] MEDS ORDERED: bisacodyL 10 MG SUPP PR PRN (22:55)
[2023-10-16] MEDS ORDERED: MAGNESIUM HYDROXIDE SUSP 30 ML UDC PO PRN (22:55)
[2023-10-16] MEDS ORDERED: DOCUSATE SODIUM/SENNA 50/8.6MG TAB PO PRN (22:55)
[2023-10-16] MEDS ORDERED: ALBUTEROL HFA 8 GM INHALER INH PRN (22:55)
[2023-10-16] MEDS ORDERED: FLUTICASONE PROPIONATE NA SPR 16 GM BTL PRN (22:55)
[2023-10-16 23:18] LABS: Magnesium 1.7 mg/dl (1.7-2.4); Phosphorus 3.5 mg/dl (2.5-4.9)
[2023-10-16 23:34] LABS: Thyroid Stimulating Hormone 2.44 uIu/ml (0.300-4.500)
[2023-10-17] MEDS: PIPERACILLIN/TAZOBACTAM 4.5 GM/100 ML BAG IV STA (04:19)
[2023-10-17 04:29] LABS: Appearance Urine Clear (Clear); Bacteria Urine Automated None Seen (None Seen); Bilirubin Urine Negative (Negative); Blood Urine Negative (Negative); Cast Urine Automated 0-2 /lpf (0-2); Color Urine Yellow; Epithelial Cell Urine Auto 0-2 /hpf (0-2); Glucose Urine UA Negative (Negative); Ketones Urine Trace (Negative); Leukocyte Esterase Urine Trace (Negative); Nitrite Urine Negative (Negative); Protein Urine Trace (Negative); RBC Urine Automated 0-2 /hpf (0-2); Specific Gravity Urine > 1.045 (1.000-1.030); Urobilinogen Urine Negative (Negative); pH Urine 5.5 (4.5-7.5)
[2023-10-17] MEDS: LEVOTHYROXINE SODIUM 88 MCG TABLET PO SCH (06:48)
--- NOTE | 2023-10-17 06:55 | XRay Report ---
XR chest 1V portable HISTORY: 78 years-old Female Chest pain, nonspecific COMPARISON: 08/20/2023 TECHNIQUE: AP view of the chest FINDINGS: Unchanged cardiomegaly. Hypoinflation with chronic interstitial coarsening. Subcentimeter calcified g ranuloma of the right upper lung. No pneumothorax, pleural effusion or lobar airspace consolidation. Emphysema. Degenerative changes of the shoulders and spine. IMPRESSION: 1. Cardiomegaly without overt pulmonary edema. 2. Emphysema with chronic interstitial coarsening. ACT 112: Negative or not required by law. The above report was generated using voice recognition software. It may contain grammatical, syntax o r spelling errors. Electronically signed by: Josh Kimbrough M.D. 10/17/2023 6:54 AM
--- NOTE | 2023-10-17 07:15 | Ultrasound Report ---
BILATERAL LOWER EXTREMITY VENOUS DOPPLER HISTORY: Acute pain and swelling of the right lower leg ? dvt COMPARISON STUDY: 07/23/2023 FINDINGS: RIGHT: Likely acute occlusive thrombus within one of the duplicated peroneal veins. No additional DVT. LEFT: No acute DVT. Chronic fibrin stranding/linear calcifications within the common femoral, superficial f emoral and popliteal veins compatible with chronic nonocclusive thrombus which appears similar to marcella or. IMPRESSION: 1. Likely acute DVT within the right peroneal vein. 2. Chronic nonocclusive deep venous thrombi again noted within the left lower extremity. ACT 112: Negative or not required by law. Electronically signed by: Josh Kimbrough M.D. 10/17/2023 7:12 AM
[2023-10-17 08:40] LABS: Hematocrit (blood only) 36.3 % (37.0-47.0); Hemoglobin 11.9 g/dl (12.0-16.0); Mean Corpuscular Hemoglobin 33.5 pg (25.0-34.0); Mean Corpuscular Hgb Conc 32.8 g/dL (32.0-36.0); Mean Corpuscular Volume 102.3 fL (80.0-100.0); Mean Platelet Volume 11.2 fL (9.4-12.4); Platelet Count 291 K/uL (130-400); RDW Coefficient of Variation 16.2 % (11.5-14.5); RDW Standard Deviation 61.3 fL (36.4-46.3); Red Blood Count 3.55 M/uL (4.20-5.40); White Blood Count 16.03 K/ul (4.8-10.8)
[2023-10-17 08:55] LABS: Albumin Level 3.3 gm/dl (3.4-5.0); BUN Creatinine Ratio 16.4 (10-20); Bilirubin Direct 0.2 mg/dl (0-0.2); Bilirubin,Total 0.5 mg/dl (0.2-1.0); Creatinine Clr Calc Pharmacy 27.7 ml/min; Est GFR (African American) 45.7 ml/min; Est GFR (Non-African American) 39.4 ml/min; Potassium 4.5 mmol/L (3.5-5.1); Total Protein 6.7 gm/dl (6.0-8.3)
[2023-10-17] MEDS: ONDANSETRON INJ 2 MG/ML 2 ML VIAL IV PRN (09:08)
[2023-10-17] MEDS: oxyCODONE HCL IR 5 MG TAB (IMMEDIATE RELEASE) PO PRN (09:08)
[2023-10-17] MEDS: POLYETHYLENE (MIRALAX) 17 GM PACK PO PRN (09:09)
--- NOTE | 2023-10-17 09:36 | Hospitalist Progress Note ---
Date of Service October 17, 2023 Assessment & Plan (1) Acute alteration in mental status: Plan: - Presented from [facility] with tachycardia, tachypnea, hypoxia requiring supplemental O2 initially at 15L via NRB. - At [facility], patient had witnessed aspiration events, some episodes of hypoxia, and episode of confusion, and an episode of unresponsiveness. - Unclear etiology - suspect aspiration event with hypoxia. -- Elevated procalcitonin, possible developing PNA. -- CXR on admission revealed cardiomegaly without overt pulmonary edema, and emphysema with chronic interstitial coarsening. No lobar airspace consolidation noted at that time. - UA unclear on admission. Urine culture pending. History of ESBL UTI, sensitive to Zosyn. -Continue supplemental O2 -Continue Zosyn for coverage for both possible aspiration pneumonia as well as UTI. -Speech/Swallow evaluation: Suspect silent aspiration at times. Recommend pured diet and thin liquids, mouth care ACHS, crushed pills in carrier. -Aspiration precautions (2) Hypoxia: Plan: Likely secondary to aspiration, developing PNA -Maintain aspiration precautions -Speech and swallow evaluation -Continue supplemental O2 as needed -Albuterol PRN (3) DVT (deep venous thrombosis): Plan: - Acute DVT within the right peroneal vein noted on venous Doppler study from - Started on Eliquis twice daily (4) Closed T2 fracture: Plan: Chronic -Maintain hard collar in place -Oxycodone PRN pain (5) Hypothyroidism: Plan: Chronic. Stable -Continue Levothyroxine (6) Parkinsons disease: Plan: Chronic. Daughter reports frequent falls and balance issues. 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 Plan is to return home ideally. -Continue Carbidopa/Levodopa -PT/OT evaluation Plan Discussed swallow study with speech pathologist. Initiated anticoagulation with Eliquis due to acute DVT. Answered daughter's questions at bedside. CODE STATUS: DNR/DNI Admission and Anticipated Discharge Date Admission Date: October 16, 2023 Subjective Patient seen and evaluated at bedside with daughter. She continues to require supplemental oxygen and remains tachypneic. She had a video swallow study today, where no aspiration events overtly occurred however it is suspected that she probably does aspirate silently at times. Recommended pured diet and thin liquids, mouth care ACHS, and crushed meds in carrier. Patient does complain of some right-sided posterior head pain. She denies a headache. It is unclear what is the cause of this pain as her cervical collar ends right where she reports the pain, however there is no area of irritation that I could see. She has no other complaints at this time. I discussed the plan with the patient and daughter and answered all of the daughter's questions. Physical Exam Physical Exam: General: No acute distress, nondiaphoretic, chronically ill-appearing. In cervical collar. Skin: The skin was without rashes, erythema, edema, or bruising. Cardiac: Regular rate and rhythm without murmurs gallops or rubs. Pulm: Coarse breath sounds appreciated throughout all lung rees. Abdominal: Positive bowel sounds x 4. Soft, nontender, without masses or organomegaly. No guarding or rebound tenderness. Neuro: A&O x3. No focal neurological deficits. Results & Data Results & Data Vital Signs (Past 12 Hours) Vital Signs Pulse Pulse Resp BP BP Pulse Ox Pulse Ox 10/17/23 07:41 99 H 10/17/23 05:30 106 H 34 H 110/74 97 10/17/23 03:13 104 H 28 H 98 10/17/23 02:50 104 H 27 H 98 10/17/23 02:40 104 H 27 H 99 10/17/23 02:30 105 H 28 H 98 10/17/23 02:20 116 H 38 H 97 10/17/23 02:10 163 H 28 H 94 10/17/23 02:06 118 H 29 H 93 10/17/23 01:56 118 H 22 126/71 93 10/17/23 01:30 119 H 31 H 95 10/17/23 01:20 117 H 33 H 98 10/17/23 01:10 114 H 33 H 100 10/17/23 01:00 114 H 37 H 99 10/16/23 23:03 107 H 10/16/23 23:00 107 H 18 120/64 95 10/16/23 22:55 95 O2 Del Method O2 Del Method O2 Flow Rate O2 Flow Rate 10/17/23 07:41 10/17/23 05:30 10/17/23 03:13 10/17/23 02:50 10/17/23 02:40 10/17/23 02:30 10/17/23 02:20 10/17/23 02:10 10/17/23 02:06 10/17/23 01:56 Nasal Cannula 3 10/17/23 01:30 10/17/23 01:20 10/17/23 01:10 10/17/23 01:00 10/16/23 23:03 10/16/23 23:00 Nasal Cannula 3 10/16/23 22:55 Nasal Cannula 3 Laboratory Results Reviewed CBC Reviewed chemistries Reviewed UA Diagnostic Findings Reviewed videofluoroscopic swallow study. Discussed results with speech pathologist. FINDINGS: There is normal hyoid excursion and epiglottic deflection. No aspiration identified. Mild to moderate vallecular residue seen throughout the examination. There are a few episodes of penetration. No aspiration identified. IMPRESSION: 1. No aspiration identified. 2. Please see the speech pathologist report for detailed findings and recommendations. PG Care Time/CCT Total # of Minutes Spent Total Time Spent with Patient: Total time spent is greater than 50% in coordination of care (as documented) at patient's floor/unit and/or counseling patient: Coding Level of Care Code 00029 SUB INP/OBS CARE 3/50MIN Diagnoses Acute alteration in mental status R41.82 Hypoxia R09.02 Acute deep vein thrombosis (DVT) of right peroneal vein I82.451 DVT location: lower extremity Affected thrombotic vein of extremity: peroneal Chronicity: acute Laterality: right Closed fracture of second thoracic vertebra with routine healing, unspecified fracture morphology, subsequent encounter S22.029D Encounter type: subsequent encounter Fracture morphology: unspecified fracture morphology Fracture healing: with routine healing Hypothyroidism, unspecified type E03.9 Hypothyroidism type: unspecified Parkinson's disease, unspecified whether dyskinesia present, unspecified whether manifestations fluctuate G20.A1 Dyskinesia presence: unspecified whether dyskinesia Fluctuating manifestations: unspecified whether manifestations fluctuate (3) DVT (deep venous thrombosis) DVT location: lower extremity Affected thrombotic vein of extremity: peroneal Chronicity: acute Laterality: right Qualified Code(s): I82.451 - Acute embolism and thrombosis of right peroneal vein (4) Closed T2 fracture Encounter type: subsequent encounter Fracture morphology: unspecified fracture morphology Fracture healing: with routine healing Qualified Code(s): S22.029D - Unspecified fracture of second thoracic vertebra, subsequent encounter for fracture with routine healing (5) Hypothyroidism Hypothyroidism type: unspecified Qualified Code(s): E03.9 - Hypothyroidism, unspecified (6) Parkinsons disease Dyskinesia presence: unspecified whether dyskinesia Fluctuating manifestations: unspecified whether manifestations fluctuate Qualified Code(s): G20.A1 - Parkinson's disease without dyskinesia, without mention of fluctuations
[2023-10-17] MEDS: CARBIDOPA/LEVODOP 10/100MG TAB PO SCH (10:31)
[2023-10-17] MEDS: FAMOTIDINE 10 MG TABLET PO SCH (10:33)
[2023-10-17] MEDS: DOCUSATE SODIUM 100 MG CAP PO SCH (10:33)
[2023-10-17] MEDS: PIPERACILLIN/TAZOBACTAM 4.5 GM in DEXTROSE 5% MINI-B 100 ML IV SCH (10:54)
[2023-10-17] MEDS: DULoxetine HCL 30 MG CAP PO SCH (12:11)
--- NOTE | 2023-10-17 12:29 | Fluoroscopy Report ---
FL video swallow HISTORY: assess for aspiration TECHNIQUE: Video fluoroscopic evaluation of swallowing was performed in the AP and lateral projection s by the speech pathology staff. The patient is fed nectar-thick and thin liquid barium, and barium p udding. FLUOROSCOPY TIME: 1 minute and 19 seconds. Ka,r: 6.4 mGy COMPARISON STUDY: None. FINDINGS: There is normal hyoid excursion and epiglottic deflection. No aspiration identified. Mild t o moderate vallecular residue seen throughout the examination. There are a few episodes of penetratio n. No aspiration identified. IMPRESSION: 1. No aspiration identified. 2. Please see the speech pathologist report for detailed findings and recommendations. ACT 112: Negative or not required by law. Electronically signed by: Kade Osborne M.D. 10/17/2023 12:28 PM
[2023-10-17] MEDS: ACETAMINOPHEN 1,000 MG/100 ML VIAL IV STA (13:41)
[2023-10-17] MEDS: APIXABAN 2.5 MG TAB PO SCH (15:19)
--- NOTE | 2023-10-17 15:46 | Electrocardiogram Report ---
Test Reason : Blood Pressure : / mmHG Vent. Rate : 104 BPM Atrial Rate : 104 BPM P-R Int : 184 ms QRS Dur : 088 ms QT Int : 346 ms P-R-T Axes : 049 -17 056 degrees QTc Int : 454 ms Sinus tachycardia Inferior infarct (cited on or before 20-AUG-2023) Abnormal ECG When compared with ECG of 20-AUG-2023 10:10, Questionable change in initial forces of Inferior leads Nonspecific T wave abnormality now evident in Lateral leads Confirmed by Edmundo Salazar ([id number]) on 10/17/2023 3:45:57 PM Referred By: [facility] Confirmed By:Edmundo Salazar
--- OUTSIDE RECORDS SUMMARY | 2023-10-17 18:46 | External Medical Summary ---
Author Name Unknown Address Unknown Organization K09[facility] [place] [address] Laboratory Report Ordering Provider Test Date Status LANDEN LUDWIG 10/15/2023 06:08:22 Final Observation Date Value Abnormality Reference (Units ) Status WBC, Total 10/15/2023 06:08:22 7.11 4.00-10.8 0 (K/uL) Final RBC 10/15/2023 06:08:22 3.43 3.85-5.15 (M/uL) Final Hemoglobin 10/15/2023 06:08:22 11.9 Below low normal 12 .0-15.3 (g/dL) Final HCT 10/15/2023 06:08:22 37.2 36.0-45.2 (%) Final MCV 10/15/2023 06:08:22 108.5 81.5-97.5 (fL) Final MCH 10/15/2023 06:08:22 34.7 27.0-34.0 (pg) Final MCHC 10/15/2023 06:08:22 32.0 32.0-36.0 (g/dL) Final RDW 10/15/2023 06:08:22 16.3 11.5-15.5 (%) Final Platelets 10/15/2023 06:08:22 260 140-400 (K /uL) Final MPV 10/15/2023 06:08:22 11.2 6.6-11.1 ( fL) Final Performing Location [facility] [place] [address]
--- OUTSIDE RECORDS SUMMARY | 2023-10-17 18:46 | External Medical Summary ---
Author Name Unknown Address Unknown Organization K09[facility] [place] [address] Laboratory Report Ordering Provider Test Date Status LANDEN LUDWIG 10/15/2023 06:08:22 Final Observation Date Value Abnormality Reference (Units ) Status BUN 10/15/2023 06:08:22 21 Above high normal 6-20 (mg/dL) Final Creatinine 10/15/2023 06:08:22 1.2 Above high normal 0.5-1.0 (mg/dL) Final Glomerular filtration rate/1.73 sq M.predicted [Volume Rate/Area] in Serum, Plasma or Blood by Creatinine-based formula (CKD-EPI) 10/15/2023 06:08:22 44 Below low normal >=60 (mL/min) Final eGFR is calculated based on the CKD-EPI 2020 equation Sodium 10/15/2023 06:08:22 137 135-146 (m mol/L) Final Potassium 10/15/2023 06:08:22 4.3 3.5-5.1 (m mol/L) Final Cl 10/15/2023 06:08:22 96 Below low normal 98- 107 (mmol/L) Final CO2 10/15/2023 06:08:22 28 22-32 (mmo l/L) Final Anion gap 10/15/2023 06:08:22 13 7-15 (mmol /L) Final Glucose 10/15/2023 06:08:22 90 70-120 (mg /dL) Final Calcium 10/15/2023 06:08:22 9.2 8.4-10.2 ( mg/dL) Final Performing Location [facility] [place] [address]
[2023-10-17] MEDS: ENOXAPARIN INJ 30 MG/0.3 ML SYR SQ SCH (19:28)
[2023-10-17] MEDS: ATORVASTATIN 40 MG TAB PO SCH (21:22)
[2023-10-17] MEDS: SENNA 8.6 MG TAB PO SCH (21:26)
[2023-10-17] MEDS: LATANOPROST 0.005% OP SOLN 2.5 ML BTL OPB SCH (21:53)
[2023-10-18 04:53] LABS: Hematocrit (blood only) 32.6 % (37.0-47.0); Hemoglobin 10.2 g/dl (12.0-16.0); Mean Corpuscular Hgb Conc 31.3 g/dL (32.0-36.0); Mean Corpuscular Volume 105.5 fL (80.0-100.0); Mean Platelet Volume 10.9 fL (9.4-12.4); Platelet Count 261 K/uL (130-400); RDW Coefficient of Variation 16.4 % (11.5-14.5); RDW Standard Deviation 64.1 fL (36.4-46.3); Red Blood Count 3.09 M/uL (4.20-5.40); White Blood Count 13.52 K/ul (4.8-10.8)
[2023-10-18 05:07] LABS: Albumin Level 3.1 gm/dl (3.4-5.0); Bilirubin,Total 0.5 mg/dl (0.2-1.0); Potassium 4.4 mmol/L (3.5-5.1)
[2023-10-18 05:13] LABS: BUN Creatinine Ratio 16.9 (10-20); Est GFR (African American) 38.4 ml/min; Est GFR (Non-African American) 33.1 ml/min; Total Protein 6.1 gm/dl (6.0-8.3)
--- NOTE | 2023-10-18 07:56 | Hospitalist Progress Note ---
Date of Service October 18, 2023 Assessment & Plan (1) Acute alteration in mental status: Plan: - Presented from [facility] with tachycardia, tachypnea, hypoxia requiring supplemental O2 initially at 15L via NRB. - At [facility], patient had witnessed aspiration events, some episodes of hypoxia, and episode of confusion, and an episode of unresponsiveness. - Unclear etiology - suspect aspiration event with hypoxia. -- Elevated procalcitonin, possible developing PNA. -- CXR on admission revealed cardiomegaly without overt pulmonary edema, and emphysema with chronic interstitial coarsening. No lobar airspace consolidation noted at that time. -- Metabolic encephalopathy - UA unclear on admission. Urine culture preliminarily negative x 24 hours. History of ESBL UTI, sensitive to Zosyn. -Continue supplemental O2 -Continue Zosyn for coverage for both possible aspiration pneumonia as well as UTI. -Speech/Swallow evaluation: Suspect silent aspiration at times. Recommend pured diet and thin liquids, mouth care ACHS, crushed pills in carrier. -Aspiration precautions -Alk phos still elevated, but trending down. No clinical need to further investigate at this time, but if it continues to remain elevated or increase further, consider CBD and/or bone disorder. -- Patient did have T2 fracture earlier this month, however, alk phos was normal at the time of that hospitalization. (2) Hypoxia: Plan: Likely secondary to aspiration, developing PNA -Maintain aspiration precautions -Speech and swallow evaluation -Continue supplemental O2 as needed -Albuterol PRN (3) DVT (deep venous thrombosis): Plan: - Acute DVT within the right peroneal vein noted on venous Doppler study from 10/16/2023 - Continue Eliquis twice daily (4) Closed T2 fracture: Plan: -On 10/08/23, patient sustained ground level fall resulting in subarachnoid hemorrhage and T2 fracture. She was transferred to [facility] for neurosurgical eval at that time. -Maintain hard collar in place -Oxycodone PRN pain (5) Hypothyroidism: Plan: Chronic. Stable -Continue Levothyroxine (6) Parkinsons disease: Plan: Chronic. Daughter reports frequent falls and balance issues. 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 Plan is to return home ideally. -Continue Carbidopa/Levodopa -PT/OT evaluation (7) CKD (chronic kidney disease), stage IV: Plan: - Per review of nephrology notes, patient has stage IV CKD, b/l cr 1.8 to 2.2, secondary to small vessel disease in the setting of hypertension, diabetes, smoking and obesity, B/L creatinine lately staying around 1.8-2.2 . - Currently BUN 25, Cr 1.48, eGFR 33.1 - Avoid nephrotoxic agents when possible *Chronic kidney disease, stage 4 Plan Reviewed prior nephrology notes. Tried calling patient's daughter with daily update, but she did not answer. CODE STATUS: DNR/DNI Admission and Anticipated Discharge Date Admission Date: October 16, 2023 Subjective Patient seen and evaluated at bedside. Patient reports that she feels better today. She denies any right-sided posterior head pain today. She still has a minor cough, but no sputum production. She remains on supplemental oxygen at 3L. She reports that she does not have much of an appetite today, but did eat most of her lunch anyway. She denies any urinary symptoms, abdominal pain, chest pain, or headache. Physical Exam Physical Exam: General: No acute distress, nondiaphoretic, chronically ill-appearing. In cervical collar. Skin: The skin was without rashes, erythema, edema, or bruising. Cardiac: Regular rate and rhythm without murmurs gallops or rubs. Pulm: Coarse breath sounds appreciated throughout all lung rees. Abdominal: Positive bowel sounds x 4. Soft, nontender, without masses or organomegaly. No guarding or rebound tenderness. Neuro: A&O x3. No focal neurological deficits. Results & Data Results & Data Vital Signs (Past 12 Hours) Vital Signs Temp Pulse Resp BP Pulse Ox O2 Del Method O2 Flow Rate 10/18/23 04:09 36.6 C 79 16 133/69 99 Nasal Cannula 3 10/18/23 00:17 Nasal Cannula 3 10/17/23 21:00 36.6 C 85 16 115/48 L 98 Nasal Cannula 3 Laboratory Results Reviewed CBC Reviewed CMP Reviewed urine culture PG Care Time/CCT Total # of Minutes Spent Total Time Spent with Patient: Total time spent is greater than 50% in coordination of care (as documented) at patient's floor/unit and/or counseling patient: Coding Level of Care Code 66682 SUB INP/OBS CARE 3/50MIN Diagnoses Acute alteration in mental status R41.82 Hypoxia R09.02 Acute deep vein thrombosis (DVT) of right peroneal vein I82.451 Affected thrombotic vein of extremity: peroneal Chronicity: acute DVT location: lower extremity Laterality: right Closed fracture of second thoracic vertebra with routine healing, unspecified fracture morphology, subsequent encounter S22.029D Encounter type: subsequent encounter Fracture healing: with routine healing Fracture morphology: unspecified fracture morphology Hypothyroidism, unspecified type E03.9 Hypothyroidism type: unspecified Parkinson's disease, unspecified whether dyskinesia present, unspecified whether manifestations fluctuate G20.A1 Dyskinesia presence: unspecified whether dyskinesia Fluctuating manifestations: unspecified whether manifestations fluctuate CKD (chronic kidney disease), stage IV N18.4 (3) DVT (deep venous thrombosis) Affected thrombotic vein of extremity: peroneal Chronicity: acute DVT location: lower extremity Laterality: right Qualified Code(s): I82.451 - Acute embolism and thrombosis of right peroneal vein (4) Closed T2 fracture Encounter type: subsequent encounter Fracture healing: with routine healing Fracture morphology: unspecified fracture morphology Qualified Code(s): S22.029D - Unspecified fracture of second thoracic vertebra, subsequent encounter for fracture with routine healing (5) Hypothyroidism Hypothyroidism type: unspecified Qualified Code(s): E03.9 - Hypothyroidism, unspecified (6) Parkinsons disease Dyskinesia presence: unspecified whether dyskinesia Fluctuating manifestations: unspecified whether manifestations fluctuate Qualified Code(s): G20.A1 - Parkinson's disease without dyskinesia, without mention of fluctuations
[2023-10-18] MEDS: ACETAMINOPHEN 325 MG TAB PO PRN (09:31)
[2023-10-19 04:41] LABS: Hemoglobin 10.1 g/dl (12.0-16.0); Mean Corpuscular Hgb Conc 32.6 g/dL (32.0-36.0); Mean Corpuscular Volume 104.4 fL (80.0-100.0); Mean Platelet Volume 10.9 fL (9.4-12.4); Platelet Count 298 K/uL (130-400); RDW Coefficient of Variation 16.1 % (11.5-14.5); RDW Standard Deviation 62.3 fL (36.4-46.3); Red Blood Count 2.97 M/uL (4.20-5.40); White Blood Count 9.05 K/ul (4.8-10.8)
[2023-10-19 05:02] LABS: Albumin Globulin Ratio 0.9 (0.9-2); Albumin Level 2.8 gm/dl (3.4-5.0); Bilirubin,Total 0.5 mg/dl (0.2-1.0); Calcium 7.7 mg/dl (8.6-10.3); Creatinine Clr Calc Pharmacy 26.7 ml/min; Est GFR (African American) 43.6 ml/min; Est GFR (Non-African American) 37.7 ml/min; Globulin 3.2 gm/dl (2.5-4.0); Potassium 4.1 mmol/L (3.5-5.1)
--- NOTE | 2023-10-19 07:54 | Hospitalist Progress Note ---
Date of Service October 19, 2023 Assessment & Plan (1) Acute alteration in mental status: Plan: - Presented from [facility] with tachycardia, tachypnea, hypoxia requiring supplemental O2 initially at 15L via NRB. - At [facility], patient had witnessed aspiration events, some episodes of hypoxia, and episode of confusion, and an episode of unresponsiveness. - Unclear etiology - suspect aspiration event with hypoxia. -- Elevated procalcitonin, possible developing PNA. -- CXR on admission revealed cardiomegaly without overt pulmonary edema, and emphysema with chronic interstitial coarsening. No lobar airspace consolidation noted at that time. -- Metabolic encephalopathy - UA unclear on admission. Urine culture preliminarily negative x 24 hours. History of ESBL UTI, sensitive to Zosyn. -Continue supplemental O2 -Continue Zosyn for coverage for both possible aspiration pneumonia as well as UTI. - Leukocytosis resolved 10/19/23. -Speech/Swallow evaluation: Suspect silent aspiration at times. Recommend pured diet and thin liquids, mouth care ACHS, crushed pills in carrier. -Aspiration precautions -Alk phos still elevated, but trending down. No clinical need to further investigate at this time, but if it continues to remain elevated or increase further, consider CBD and/or bone disorder. -- Patient did have T2 fracture earlier this month, however, alk phos was normal at the time of that hospitalization. -Chest CT 10/19/2023 suggestive of aspiration pneumonitis or pneumonia. (2) Hypoxia: Plan: Likely secondary to aspiration, developing PNA -Maintain aspiration precautions -Continue supplemental O2 as needed -Albuterol PRN (3) DVT (deep venous thrombosis): Plan: - Acute DVT within the right peroneal vein noted on venous Doppler study from 10/16/2023 - Continue Eliquis twice daily (4) Closed T2 fracture: Plan: -On 10/08/23, patient sustained ground level fall resulting in subarachnoid hemorrhage and T2 fracture. She was transferred to [facility] for neurosurgical eval at that time. -Maintain hard collar in place -Oxycodone PRN pain (5) Hypothyroidism: Plan: Chronic. Stable -Continue Levothyroxine (6) Parkinsons disease: Plan: Chronic. Daughter reports frequent falls and balance issues. 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 Plan is to return home ideally. -Continue Carbidopa/Levodopa -PT/OT (7) CKD (chronic kidney disease), stage IV: Plan: - Per review of nephrology notes, patient has stage IV CKD, b/l cr 1.8 to 2.2, secondary to small vessel disease in the setting of hypertension, diabetes, smoking and obesity, B/L creatinine lately staying around 1.8-2.2 . - Currently BUN 25, Cr 1.48, eGFR 33.1 - Avoid nephrotoxic agents when possible *Chronic kidney disease, stage [address] without contrast CODE STATUS: DNR/DNI Admission and Anticipated Discharge Date Admission Date: October 16, 2023 Subjective Patient seen and evaluated at bedside. She reports feeling tired, but denies any other complaints at this time. She does report some right-sided posterior head pain, but notes that this is well-controlled with oxycodone. She remained stable on supplemental oxygen at 2 L. Denies any urinary symptoms, abdominal pain, chest pain, headache, shortness of breath. Physical Exam Physical Exam: General: No acute distress, nondiaphoretic, chronically ill-appearing. In cervical collar. Skin: The skin was without rashes, erythema, edema, or bruising. Cardiac: Regular rate and rhythm without murmurs gallops or rubs. Pulm: Coarse breath sounds appreciated throughout all lung rees, improving. Diminished breath sounds at bases bilaterally. Abdominal: Positive bowel sounds x 4. Soft, nontender, without masses or organomegaly. No guarding or rebound tenderness. Neuro: A&O x3. No focal neurological deficits. Results & Data Results & Data Vital Signs (Past 12 Hours) Vital Signs Temp Pulse Resp BP Pulse Ox O2 Del Method O2 Flow Rate 10/19/23 03:00 36.6 C 78 16 102/53 L 98 Nasal Cannula 3 10/18/23 21:00 36.5 C 79 16 101/44 L 96 Nasal Cannula 3 10/18/23 20:00 Nasal Cannula 3 Laboratory Results Reviewed CBC Reviewed CMP Diagnostic Findings Chest CTA 10/19/2023: FINDINGS: No enlarged axillary, mediastinal or hilar lymph nodes are present. There is mild cardiomegaly and extensive mitral annular calcification. Dilatation of the central pulmonary arteries is similar to CT of January 11, 2023. Right pulmonary artery measures 3.4 cm in caliber. There is no pneumothorax. Trace left pleural effusion. Extensive secretions within the left lower lobe bronchus are noted with extensive left lower lobe airspace opacity and volume loss. Air bronchograms are present. Mild right lower lobe airspace opacities are similar to prior CT. There is moderate emphysema. Subpleural reticulation is similar to prior exam and favor interstitial lung disease. The appearance of a subacute T1 vertebral body fracture is unchanged since CT of October 08, 2023. There is moderate vertebral body height loss with disruption of the posterior cortex. Old thoracic spine compression fractures are unchanged since CT of January 11, 2023. IMPRESSION: 1. Secretions within the left lower lobe bronchus and left lower leg segmental bronchi with extensive left lower lobe airspace opacity with volume loss. The findings may reflect aspiration pneumonitis or pneumonia. Left lower lobe atelectasis could appear similar. Mild right lower lobe airspace opacities may reflect a mild infectious process superimposed upon interstitial lung disease. 2. Emphysema. 3. Dilatation of the central pulmonary arteries which raises the possibility of of pulmonary arterial hypertension. 4. No change in alignment of a subacute T1 vertebral body fracture since CT of October 08, 2023. PG Care Time/CCT Total # of Minutes Spent Total Time Spent with Patient: Total time spent is greater than 50% in coordination of care (as documented) at patient's floor/unit and/or counseling patient: Coding Level of Care Code 69369 SUB INP/OBS CARE 2/35MIN Diagnoses Acute alteration in mental status R41.82 Hypoxia R09.02 Acute deep vein thrombosis (DVT) of right peroneal vein I82.451 Affected thrombotic vein of extremity: peroneal Chronicity: acute DVT location: lower extremity Laterality: right Closed fracture of second thoracic vertebra with routine healing, unspecified fracture morphology, subsequent encounter S22.029D Encounter type: subsequent encounter Fracture healing: with routine healing Fracture morphology: unspecified fracture morphology Hypothyroidism, unspecified type E03.9 Hypothyroidism type: unspecified Parkinson's disease, unspecified whether dyskinesia present, unspecified whether manifestations fluctuate G20.A1 Dyskinesia presence: unspecified whether dyskinesia Fluctuating manifestations: unspecified whether manifestations fluctuate CKD (chronic kidney disease), stage IV N18.4 (3) DVT (deep venous thrombosis) Affected thrombotic vein of extremity: peroneal Chronicity: acute DVT location: lower extremity Laterality: right Qualified Code(s): I82.451 - Acute embolism and thrombosis of right peroneal vein (4) Closed T2 fracture Encounter type: subsequent encounter Fracture healing: with routine healing Fracture morphology: unspecified fracture morphology Qualified Code(s): S22.029D - Unspecified fracture of second thoracic vertebra, subsequent encounter for fracture with routine healing (5) Hypothyroidism Hypothyroidism type: unspecified Qualified Code(s): E03.9 - Hypothyroidism, unspecified (6) Parkinsons disease Dyskinesia presence: unspecified whether dyskinesia Fluctuating manifes tations: unspecified whether manifestations fluctuate Qualified Code(s): G20.A1 - Parkinson's disease without dyskinesia, without mention of fluctuations
--- NOTE | 2023-10-19 11:14 | CT Scan Report ---
CT OF THE CHEST WITHOUT IV CONTRAST CLINICAL HISTORY: Hypoxia. COMPARISON STUDY: Chest CT January 11, 2023. Chest radiograph October 16, 2023. CT DOSE: 316.83 mGy.cm TECHNIQUE: Axial images of the chest were obtained without IV contrast. Images were reviewed in the axial, sagittal, and coronal planes. IV contrast was not administered for this examination. Automat ed exposure control was utilized for the study. A dose lowering technique was utilized adhering to t he principles of ALARA. FINDINGS: No enlarged axillary, mediastinal or hilar lymph nodes are present. There is mild cardiome charlee and extensive mitral annular calcification. Dilatation of the central pulmonary arteries is angelica lar to CT of January 11, 2023. Right pulmonary artery measures 3.4 cm in caliber. There is no pneumothor ax. Trace left pleural effusion. Extensive secretions within the left lower lobe bronchus are noted w ith extensive left lower lobe airspace opacity and volume loss. Air bronchograms are present. Mild ri ght lower lobe airspace opacities are similar to prior CT. There is moderate emphysema. Subpleural re ticulation is similar to prior exam and favor interstitial lung disease. The appearance of a subacute T1 vertebral body fracture is unchanged since CT of October 08, 2023. There is moderate vertebral body height loss with disruption of the posterior cortex. Old thoracic spine compression fractures are un changed since CT of January 11, 2023. IMPRESSION: 1. Secretions within the left lower lobe bronchus and left lower leg segmental bronchi with extensive left lower lobe airspace opacity with volume loss. The findings may reflect aspiration pneumonitis o r pneumonia. Left lower lobe atelectasis could appear similar. Mild right lower lobe airspace opaciti es may reflect a mild infectious process superimposed upon interstitial lung disease. 2. Emphysema. 3. Dilatation of the central pulmonary arteries which raises the possibility of of pulmonary arterial hypertension. 4. No change in alignment of a subacute T1 vertebral body fracture since CT of October 08, 2023. ACT 112: Negative or not required by law. Electronically signed by: Nik Will M.D. 10/19/2023 11:11 AM
[2023-10-20 07:09] LABS: Hematocrit (blood only) 32.6 % (37.0-47.0); Hemoglobin 10.2 g/dl (12.0-16.0); Mean Corpuscular Hemoglobin 33.1 pg (25.0-34.0); Mean Corpuscular Hgb Conc 31.3 g/dL (32.0-36.0); Mean Corpuscular Volume 105.8 fL (80.0-100.0); Mean Platelet Volume 10.8 fL (9.4-12.4); Platelet Count 337 K/uL (130-400); RDW Coefficient of Variation 15.8 % (11.5-14.5); RDW Standard Deviation 61.5 fL (36.4-46.3); Red Blood Count 3.08 M/uL (4.20-5.40); White Blood Count 6.69 K/ul (4.8-10.8)
[2023-10-20 07:19] LABS: Albumin Globulin Ratio 0.9 (0.9-2); Albumin Level 2.9 gm/dl (3.4-5.0); BUN Creatinine Ratio 11.8 (10-20); Bilirubin,Total 0.5 mg/dl (0.2-1.0); Calcium 7.8 mg/dl (8.6-10.3); Creatinine Clr Calc Pharmacy 27.9 ml/min; Est GFR (African American) 46.2 ml/min; Est GFR (Non-African American) 39.8 ml/min; Globulin 3.1 gm/dl (2.5-4.0); Potassium 4.1 mmol/L (3.5-5.1)
--- NOTE | 2023-10-20 13:12 | Hospitalist Progress Note ---
Date of Service October 20, 2023 Assessment & Plan (1) Acute alteration in mental status: Plan: - Presented from [facility] with tachycardia, tachypnea, hypoxia requiring supplemental O2 initially at 15L via NRB. - At [facility], patient had witnessed aspiration events, some episodes of hypoxia, and episode of confusion, and an episode of unresponsiveness. - Unclear etiology - suspect aspiration event with hypoxia. -- Elevated procalcitonin, possible developing PNA. -- CXR on admission revealed cardiomegaly without overt pulmonary edema, and emphysema with chronic interstitial coarsening. No lobar airspace consolidation noted at that time. -- Metabolic encephalopathy - UA unclear on admission. Urine culture negative. History of ESBL UTI, sensitive to Zosyn. - Leukocytosis resolved 10/19/23. - Speech/Swallow evaluation: Suspect silent aspiration at times. Recommend pured diet and thin liquids, mouth care ACHS, crushed pills in carrier. Aspiration precautions. - Alk phos still elevated. No clinical need to further investigate at this time, but if it continues to remain elevated or increase further, consider CBD and/or bone disorder. -- Patient did have T2 fracture earlier this month, however, alk phos was normal at the time of that hospitalization. - Chest CT 10/19/2023 suggestive of aspiration pneumonitis or pneumonia. Revealed dilation of central pulmonary arteries. This raises the possibility of pulmonary arterial hypertension. - Continue Zosyn for aspiration pneumonia, last dose on 10/24/2023. (2) Hypoxia: Plan: Likely secondary to aspiration, developing PNA -Maintain aspiration precautions -Albuterol PRN -Updated O2 parameters: Supplemental oxygen as needed with O2 saturation goal of 89%. (3) DVT (deep venous thrombosis): Plan: - Acute DVT within the right peroneal vein noted on venous Doppler study from 10/16/2023 - Continue Eliquis twice daily (4) Closed T2 fracture: Plan: -On 10/08/23, patient sustained ground level fall resulting in subarachnoid hemorrhage and T2 fracture. She was transferred to [facility] for neurosurgical eval at that time. -Maintain hard collar in place -Oxycodone PRN pain (5) Hypothyroidism: Plan: Chronic. Stable -Continue Levothyroxine (6) Parkinsons disease: Plan: Chronic. Daughter reports frequent falls and balance issues. Patient was living at home with a credit control manager prior to her most recent fall. Plan is to return home ideally. -Continue Carbidopa/Levodopa -PT/OT (7) CKD (chronic kidney disease), stage IV: Plan: - Per review of nephrology notes, patient has stage IV CKD, b/l cr 1.8 to 2.2, secondary to small vessel disease in the setting of hypertension, diabetes, smoking and obesity, B/L creatinine lately staying around 1.8-2.2 . - Currently BUN 25, Cr 1.48, eGFR 33.1 - Avoid nephrotoxic agents when possible *Chronic kidney disease, stage 4 Plan Updated O2 parameters Waiting for placement: [facility] versus SNF CODE STATUS: DNR/DNI Admission and Anticipated Discharge Date Admission Date: October 16, 2023 Subjective Patient seen and evaluated at bedside. She reports feeling very tired today from not getting good sleep last night. She denies any head pain today. O2 parameters were adjusted for an oxygen saturation goal of 89% and supplemental oxygen only as needed. We are currently waiting for placement either back to [facility] or another facility. Patient denies any complaints at this time. Physical Exam Physical Exam: General: No acute distress, nondiaphoretic, chronically ill-appearing. In cervical collar. Skin: The skin was without rashes, erythema, edema, or bruising. Cardiac: Regular rate and rhythm without murmurs gallops or rubs. Pulm: Coarse breath sounds appreciated throughout all lung rees, improving. Diminished breath sounds at bases bilaterally. Abdominal: Positive bowel sounds x 4. Soft, nontender, without masses or organomegaly. No guarding or rebound tenderness. Neuro: A&O x3. No focal neurological deficits. Results & Data Results & Data Vital Signs (Past 12 Hours) Vital Signs Temp Pulse Pulse Resp BP Pulse Ox O2 Del Method 10/20/23 11:15 36.7 C 103 H 18 114/63 90 Room Air 10/20/23 11:07 Nasal Cannula 10/20/23 08:27 83 10/20/23 07:45 36.5 C 83 18 123/72 95 Nasal Cannula 10/20/23 02:52 36.5 C 90 18 104/67 97 Nasal Cannula O2 Flow Rate 10/20/23 11:15 10/20/23 11:07 3 10/20/23 08:27 10/20/23 07:45 3 10/20/23 02:52 3 Laboratory Results Reviewed CBC Reviewed chemistries Reviewed urine culture PG Care Time/CCT Total # of Minutes Spent Total Time Spent with Patient: Total time spent is greater than 50% in coordination of care (as documented) at patient's floor/unit and/or counseling patient: Coding Level of Care Code 57775 SUB INP/OBS CARE 2/35MIN Diagnoses Acute alteration in mental status R41.82 Hypoxia R09.02 Acute deep vein thrombosis (DVT) of right peroneal vein I82.451 Affected thrombotic vein of extremity: peroneal Chronicity: acute DVT location: lower extremity Laterality: right Closed fracture of second thoracic vertebra with routine healing, unspecified fracture morphology, subsequent encounter S22.029D Encounter type: subsequent encounter Fracture healing: with routine healing Fracture morphology: unspecified fracture morphology Hypothyroidism, unspecified type E03.9 Hypothyroidism type: unspecified Parkinson's disease, unspecified whether dyskinesia present, unspecified whether manifestations fluctuate G20.A1 Dyskinesia presence: unspecified whether dyskinesia Fluctuating manifestations: unspecified whether manifestations fluctuate CKD (chronic kidney disease), stage IV N18.4 (3) DVT (deep venous thrombosis) Affected thrombotic vein of extremity: peroneal Chronicity: acute DVT location: lower extremity Laterality: right Qualified Code(s): I82.451 - Acute embolism and thrombosis of right peroneal vein (4) Closed T2 fracture Encounter type: subsequent encounter Fracture healing: with routine healing Fracture morphology: unspecified fracture morphology Qualified Code(s): S22.029D - Unspecified fracture of second thoracic vertebra, subsequent encounter for fracture with routine healing (5) Hypothyroidism Hypothyroidism type: unspecified Qualified Code(s): E03.9 - Hypothyroidism, unspecified (6) Parkinsons disease Dyskinesia presence: unspecified whether dyskinesia Fluctuating manifestations: unspecified whether manifestations fluctuate Qualified Code(s): G20.A1 - Parkinson's disease without dyskinesia, without mention of fluctuations
--- NOTE | 2023-10-20 22:30 | Communication Note ---
Date of Service: October 20, 2023 Notified by nursing of concern per daughter for change in mental status. Evaluated patient at bedside; no focal neurological deficits. Alert- reoriented to person and place. Spoke with daughter, lAmita, she notes that when she spoke to mother on phone this evening and she seemed more confused. Noted new hallucinations; children in the room- when I asked pt denied hallucinations. Discussed that delirium can be waxing and waning, daughter was concerned for stroke, given prior history of CVAs. Repeat labs ordered- CBC, CMP, VBG, ammonia and largely unchanged from prior. Repeat Head CT order.
[2023-10-20 22:58] LABS: Basophils # (auto) 0.04 K/uL (0.00-0.20); Basophils % (auto) 0.5 %; Eosinophils # (auto) 0.22 K/uL (0.00-0.50); Hematocrit (blood only) 32.2 % (37.0-47.0); Hemoglobin 10.2 g/dl (12.0-16.0); Immature Granulocytes # (auto) 0.08 K/uL (0.01-0.20); Immature Granulocytes % (auto) 1.1 %; Lymphocytes # (auto) 2.03 K/uL (1.20-3.40); Lymphocytes % (auto) 27.3 %; Mean Corpuscular Hemoglobin 33.6 pg (25.0-34.0); Mean Corpuscular Hgb Conc 31.7 g/dL (32.0-36.0); Mean Corpuscular Volume 105.9 fL (80.0-100.0); Mean Platelet Volume 10.6 fL (9.4-12.4); Monocytes # (auto) 0.66 K/uL (0.11-0.59); Monocytes % (auto) 8.9 %; Neutrophils % (auto) 59.2 %; Platelet Count 362 K/uL (130-400); RDW Coefficient of Variation 15.7 % (11.5-14.5); RDW Standard Deviation 61.1 fL (36.4-46.3); Red Blood Count 3.04 M/uL (4.20-5.40); White Blood Count 7.43 K/ul (4.8-10.8)
[2023-10-20 22:59] LABS: Base Excess VBG 5.5 mEq/L; HCO3 VBG 32 mmol/L; Oxygen Saturation VBG 95.8 %; PCO2 VBG 56 mmHg (38-50); PO2 VBG 69 mmHg; pH VBG 7.37 (7.36-7.41)
[2023-10-20 23:12] LABS: Bilirubin,Total 0.5 mg/dl (0.2-1.0); Calcium 8.3 mg/dl (8.6-10.3); Creatinine Clr Calc Pharmacy 27.3 ml/min; Est GFR (African American) 44.9 ml/min; Est GFR (Non-African American) 38.7 ml/min; Globulin 3.1 gm/dl (2.5-4.0); Magnesium 1.8 mg/dl (1.7-2.4); Potassium 3.9 mmol/L (3.5-5.1); Total Protein 6.1 gm/dl (6.0-8.3)
--- NOTE | 2023-10-21 00:24 | CT Scan Report ---
Exam(s): CT HEAD Without Contrast EXAM: CT Head Without Intravenous Contrast CLINICAL HISTORY: Reason for exam: New Hallucinations. TECHNIQUE: Axial computed tomography images of the head/brain without intravenous contrast. CTDI is 87.86 mGy and DLP is 1258.01 mGy-cm. Automated exposure control was utilized for the study. A dose lowering technique was utilized adhering to the principles of ALARA. COMPARISON: 10/16/23 FINDINGS: Brain: Unremarkable. No hemorrhage. Moderate severity deep and periventricular white matter small vessel ischemic changes again demonstrated and stable in appearance. No CT evidence for early or acute ischemia. Ventricles: Unremarkable. No ventriculomegaly. Bones/joints: Unremarkable. No acute fracture. Soft tissues: Unremarkable. Sinuses: Unremarkable as visualized. No acute sinusitis. Mastoid air cells: Unremarkable as visualized. No mastoid effusion. IMPRESSION: Deep and periventricular white matter small vessel ischemic changes without evidence for early or acute ischemia or acute intracranial pathology. No interval change from 10/16/23. Electronically signed by: Ronni Ocampo MD 10/21/23 00:23 AM
[2023-10-21 07:22] LABS: Hematocrit (blood only) 32.2 % (37.0-47.0); Mean Corpuscular Hemoglobin 32.9 pg (25.0-34.0); Mean Corpuscular Hgb Conc 31.1 g/dL (32.0-36.0); Mean Corpuscular Volume 105.9 fL (80.0-100.0); Mean Platelet Volume 10.5 fL (9.4-12.4); Platelet Count 358 K/uL (130-400); RDW Coefficient of Variation 15.6 % (11.5-14.5); RDW Standard Deviation 60.4 fL (36.4-46.3); Red Blood Count 3.04 M/uL (4.20-5.40); White Blood Count 6.25 K/ul (4.8-10.8)
[2023-10-21 07:44] LABS: Albumin Globulin Ratio 0.9 (0.9-2); Albumin Level 2.9 gm/dl (3.4-5.0); BUN Creatinine Ratio 9.3 (10-20); Bilirubin,Total 0.4 mg/dl (0.2-1.0); Creatinine Clr Calc Pharmacy 27.5 ml/min; Est GFR (African American) 45.3 ml/min; Est GFR (Non-African American) 39.1 ml/min; Globulin 3.1 gm/dl (2.5-4.0)
[2023-10-21] MEDS: FUROSEMIDE INJ 20 MG/2 ML VIAL IV ONE (10:23)
[2023-10-21] MEDS: ACETAMINOPHEN 325 MG TAB PO SCH (10:24)
--- NOTE | 2023-10-21 10:40 | Hospitalist Progress Note ---
Date of Service October 21, 2023 Assessment & Plan (1) Acute alteration in mental status: Plan: - Presented from [facility] with tachycardia, tachypnea, hypoxia requiring supplemental O2 initially at 15L via NRB. - At [facility], patient had witnessed aspiration events, some episodes of hypoxia, and episode of confusion, and an episode of unresponsiveness. - Unclear etiology - suspect aspiration event with hypoxia. -- Elevated procalcitonin, possible developing PNA. -- CXR on admission revealed cardiomegaly without overt pulmonary edema, and emphysema with chronic interstitial coarsening. No lobar airspace consolidation noted at that time. -- Metabolic encephalopathy - UA unclear on admission. Urine culture negative. History of ESBL UTI, sensitive to Zosyn. - Leukocytosis resolved 10/19/23. - Speech/Swallow evaluation: Suspect silent aspiration at times. Recommend pured diet and thin liquids, mouth care ACHS, crushed pills in carrier. Aspiration precautions. - Alk phos still elevated. No clinical need to further investigate at this time, but if it continues to remain elevated or increase further, consider CBD and/or bone disorder. -- Patient did have T2 fracture earlier this month, however, alk phos was normal at the time of that hospitalization. - Chest CT 10/19/2023 suggestive of aspiration pneumonitis or pneumonia. Revealed dilation of central pulmonary arteries. This raises the possibility of pulmonary arterial hypertension. - Continue Zosyn for aspiration pneumonia, last dose on 10/24/2023. - Intermittent altered mental status with hallucinations 10/20/23. -- CT Head negative. Suspect this is due to delirium given the waxing and waning presentation. -- Oxycodone held in case this is contributing factor. Scheduled Tylenol instead for pain control. - Lasix 20 mg IV once ordered due to continued supplemental oxygen demand. Monitor blood pressure and renal function. - Possible discharge to [facility], tomorrow 10/22/23. (2) Hypoxia: Plan: Likely secondary to aspiration, developing PNA -Maintain aspiration precautions -Albuterol PRN -Updated O2 parameters: Supplemental oxygen as needed with O2 saturation goal of 89%. (3) DVT (deep venous thrombosis): Plan: - Acute DVT within the right peroneal vein noted on venous Doppler study from 10/16/2023 - Continue Eliquis twice daily (4) Closed T2 fracture: Plan: -On 10/08/23, patient sustained ground level fall resulting in subarachnoid hemorrhage and T2 fracture. She was transferred to [facility] for neurosurgical eval at that time. -Maintain hard collar in place -Oxycodone PRN pain (5) Hypothyroidism: Plan: Chronic. Stable -Continue Levothyroxine (6) Parkinsons disease: Plan: Chronic. Daughter reports frequent falls and balance issues. Patient was living at home with a rumper prior to her most recent fall. Plan is to return home ideally. -Continue Carbidopa/Levodopa -PT/OT (7) CKD (chronic kidney disease), stage IV: Plan: - Per review of nephrology notes, patient has stage IV CKD, b/l cr 1.8 to 2.2, secondary to small vessel disease in the setting of hypertension, diabetes, smoking and obesity, B/L creatinine lately staying around 1.8-2.2 . - Currently BUN 25, Cr 1.48, eGFR 33.1 - Avoid nephrotoxic agents when possible *Chronic kidney disease, stage 4 Plan Hold oxycodone. Scheduled Tylenol. 1 dose of Lasix. Continue monitoring m ental status. Discussed disposition and updated daughter at bedside. Possible [facility] tomorrow, 10/22/2023. CODE STATUS: DNR/DNI Admission and Anticipated Discharge Date Admission Date: October 16, 2023 Subjective Patient seen and evaluated at bedside with daughter this morning. Patient is very sleepy, but fully oriented during my assessment. She asked multiple times about "why she feels like this" but then continued to report that she has no complaints. She had some change in mental status last night with reported hallucinations per the daughter. The nightshift resident evaluated the patient and had a workup done at that time which was negative. I believe the intermittent confusion and lethargy is due to delirium. Oxycodone held. Give scheduled Tylenol. Monitor mental status overnight, with potential discharge to [facility] tomorrow, 10/22/2023. Physical Exam Physical Exam: General: No acute distress, nondiaphoretic, chronically ill-appearing. In cervical collar. Skin: The skin was without rashes, erythema, edema, or bruising. Cardiac: Regular rate and rhythm without murmurs gallops or rubs. Pulm: Coarse breath sounds appreciated throughout all lung rees, improving. Diminished breath sounds at bases bilaterally. Abdominal: Positive bowel sounds x 4. Soft, nontender, without masses or organomegaly. No guarding or rebound tenderness. Neuro: A&O x3. No focal neurological deficits. Results & Data Results & Data Vital Signs (Past 12 Hours) Vital Signs Temp Pulse Resp BP Pulse Ox O2 Del Method O2 Flow Rate 10/21/23 07:53 36.6 C 66 19 113/72 100 Nasal Cannula 3.0 10/21/23 03:15 36.6 C 91 H 18 111/67 96 Nasal Cannula 3 Laboratory Results Reviewed CBC Reviewed chemistries Reviewed VBG Diagnostic Findings Reviewed Head CT 10/20/23 FINDINGS: Brain: Unremarkable. No hemorrhage. Moderate severity deep and periventricular white matter small vessel ischemic changes again demonstrated and stable in appearance. No CT evidence for early or acute ischemia. Ventricles: Unremarkable. No ventriculomegaly. Bones/joints: Unremarkable. No acute fracture. Soft tissues: Unremarkable. Sinuses: Unremarkable as visualized. No acute sinusitis. Mastoid air cells: Unremarkable as visualized. No mastoid effusion. IMPRESSION: Deep and periventricular white matter small vessel ischemic changes without evidence for early or acute ischemia or acute intracranial pathology. No interval change from 10/16/23. Medications Administered Reviewed medications from hospitalization versus home meds. PG Care Time/CCT Total # of Minutes Spent Total Time Spent with Patient: Total time spent is greater than 50% in coordination of care (as documented) at patient's floor/unit and/or counseling patient: Coding Level of Care Code 61767 SUB INP/OBS CARE 350MIN Diagnoses Acute alteration in mental status R41.82 Hypoxia R09.02 Acute deep vein thrombosis (DVT) of right peroneal vein I82.451 Affected thrombotic vein of extremity: peroneal Chronicity: acute DVT location: lower extremity Laterality: right Closed fracture of second thoracic vertebra with routine healing, unspecified fracture morphology, subsequent encounter S22.029D Encounter type: subsequent encounter Fracture healing: with routine healing Fracture morphology: unspecified fracture morphology Hypothyroidism, unspecified type E03.9 Hypothyroidism type: unspecified Parkinson's disease, unspecified whether dyskinesia present, unspecified whether manifestations fluctuate G20.A1 Dyskinesia presence: unspecified whether dyskinesia Fluctuating manifestations: unspecified whether manifestations fluctuate CKD (chronic kidney disease), stage IV N18.4 (3) DVT (deep venous thrombosis) Affected thrombotic vein of extremity: peroneal Chronicity: acute DVT location: lower extremity Laterality: right Qualified Code(s): I82.451 - Acute embolism and thrombosis of right peroneal vein (4) Closed T2 fracture Encounter type: subsequent encounter Fracture healing: with routine healing Fracture morphology: unspecified fracture morphology Qualified Code(s): S22.029D - Unspecified fracture of second thoracic vertebra, subsequent encounter for fracture with routine healing (5) Hypothyroidism Hypothyroidism type: unspecified Qualified Code(s): E03.9 - Hypothyroidism, unspecified (6) Parkinsons disease Dyskinesia presence: unspecified whether dyskinesia Fluctuating manifestations: unspecified whether manifestations fluctuate Qualified Code(s): G20.A1 - Parkinson's disease without dyskinesia, without mention of fluctuations
[2023-10-22 07:27] LABS: Hemoglobin 10.3 g/dl (12.0-16.0); Mean Corpuscular Hemoglobin 33.2 pg (25.0-34.0); Mean Corpuscular Hgb Conc 31.2 g/dL (32.0-36.0); Mean Corpuscular Volume 106.5 fL (80.0-100.0); Mean Platelet Volume 10.3 fL (9.4-12.4); Platelet Count 403 K/uL (130-400); RDW Coefficient of Variation 15.9 % (11.5-14.5); RDW Standard Deviation 62.4 fL (36.4-46.3); White Blood Count 6.98 K/ul (4.8-10.8)
[2023-10-22 07:51] LABS: Albumin Level 3.1 gm/dl (3.4-5.0); BUN Creatinine Ratio 8.5 (10-20); Bilirubin,Total 0.4 mg/dl (0.2-1.0); Calcium 8.2 mg/dl (8.6-10.3); Creatinine Clr Calc Pharmacy 22.1 ml/min; Est GFR (African American) 40.3 ml/min; Est GFR (Non-African American) 34.8 ml/min; Potassium 3.7 mmol/L (3.5-5.1); Total Protein 6.1 gm/dl (6.0-8.3)
--- NOTE | 2023-10-22 17:34 | Discharge Summary ---
Discharge Summary Date of Service October 22, 2023 Admission HPI Per Admitting Provider Elyse Perez is an 78yo female with multiple medical comorbidities presenting from [facility] after an episode of unresponsiveness. Patient recently sustained a ground level fall resulting in a subarachnoid hemorrhage and T1 fracture. She presented to [facility] ER on 10/08/23 and was subsequently transferred to [facility] for Neurosurgical evaluation. She was treated with Keppra and a cervical collar was placed and she was ultimately discharged to [facility] on 10/14/23. Patient's daughter provides history. She reports some episodes of hypoxia while at [facility] with witnessed aspiration events. Today she had an episode of confusion around 15:00. She was hypoxic. EMS brought her to [facility]. On arrival patient tachycardic and tachypneic, hypoxic requiring supplemental O2. She was initially on 15L by NRB and has since been weaned down to 4L NC. No report of fever, chills, chest pain, abdominal pain, vomiting or diarrhea. Admission Exam Per Admitting Provider General: patient ill in appearance, hard of hearing, oriented x 3 Skin: warm, dry, intact, no rashes or lesions HEENT: NC/AT, PERRL, EOMI, anicteric sclera, conjunctiva without injection, external ear normal to inspection and nontender, nares patent, moist mucus membranes, dentition intact, no oropharyngeal lesions, neck supple, trachea midline, no LAD, no thyromegaly, no JVD Heart: +S1/S2, regular, tachycardic, no m/r/g Lungs: coarse breath sounds bilaterally Abd: +BS, soft, NT/ND, no masses/organomegaly/ascites Ext: warm, 2+ pulses in UE/LE bilaterally, no clubbing/cyanosis or edema Neuro: grossly non-focal Principal Dx & Hospital Course #1 = Principal Diagnosis (1) Acute alteration in mental status: - Presented from [facility] with tachycardia, tachypnea, hypoxia requiring supplemental O2 initially at 15L via NRB. - At [facility], patient had witnessed aspiration events, some episodes of hypoxia, and episode of confusion, and an episode of unresponsiveness. - Unclear etiology - suspect aspiration event with hypoxia. -- Elevated procalcitonin, possible developing PNA. -- CXR on admission revealed cardiomegaly without overt pulmonary edema, and emphysema with chronic interstitial coarsening. No lobar airspace consolidation noted at that time. -- Metabolic encephalopathy - UA unclear on admission. Urine culture negative. History of ESBL UTI, sensitive to Zosyn. - Leukocytosis resolved 10/19/23. - Speech/Swallow evaluation: Suspect silent aspiration at times. Recommend pured diet and thin liquids, mouth care ACHS, crushed pills in carrier. Aspiration precautions. - Alk phos still elevated. No clinical need to further investigate at this time, but if it continues to remain elevated or increase further, consider CBD and/or bone disorder. -- Patient did have T2 fracture earlier this month, however, alk phos was normal at the time of that hospitalization. - Chest CT 10/19/2023 suggestive of aspiration pneumonitis or pneumonia. Revealed dilation of central pulmonary arteries. This raises the possibility of pulmonary arterial hypertension. -Received 6 days of Zosyn for aspiration pneumonia. Discussed antibiotic regimen with the pharmacy, they recommend no further antibiotics required at this time. - Intermittent altered mental status with hallucinations 10/20/23. -- CT Head negative. Suspect this is due to delirium given the waxing and w aning presentation. -- Oxycodone held in case this is contributing factor. Scheduled Tylenol instead for pain control. - Discharged back to [facility]. (2) Hypoxia: Likely secondary to aspiration, developing PNA -Maintain aspiration precautions -Albuterol PRN -Updated O2 parameters: Supplemental oxygen as needed with O2 saturation goal of 89%. (3) DVT (deep venous thrombosis): - Acute DVT within the right peroneal vein noted on venous Doppler study from 10/16/2023 - Continue Eliquis twice daily (4) Closed T2 fracture: -On 10/08/23, patient sustained ground level fall resulting in subarachnoid hemorrhage and T2 fracture. She was transferred to [facility] for neurosurgical eval at that time. -Maintain hard collar in place (5) Hypothyroidism: Chronic. Stable -Continue Levothyroxine (6) Parkinsons disease: Chronic. Daughter reports frequent falls and balance issues. Patient was living at home with a gluer prior to her most recent fall. Plan is to return home ideally. -Continue Carbidopa/Levodopa (7) CKD (chronic kidney disease), stage IV: - Per review of nephrology notes, patient has stage IV CKD, b/l cr 1.8 to 2.2, secondary to small vessel disease in the setting of hypertension, diabetes, smoking and obesity, B/L creatinine lately staying around 1.8-2.2 . - BUN 12, CR 1.42 EGFR 34.8 on day of discharge. - Avoid nephrotoxic agents when possible *Chronic kidney disease, stage 4 Plan Discharged back to [facility]. CODE STATUS: DNR/DNI Discharge Exam General: No acute distress, nondiaphoretic, chronically ill-appearing. In cervical collar. Skin: The skin was without rashes, erythema, edema, or bruising. Cardiac: Regular rate and rhythm without murmurs gallops or rubs. Pulm: Coarse breath sounds appreciated throughout all lung rees, improving. Diminished breath sounds at bases bilaterally. Abdominal: Positive bowel sounds x 4. Soft, nontender, without masses or organomegaly. No guarding or rebound tenderness. Neuro: A&O x3. No focal neurological deficits. Updated Medication List Medication Instructions Recorded Confirmed Type lancets 33 gauge (ChromaTouch Delica #100 ea 07/13/20 10/07/23 History Lancets) blood sugar diagnostic (ChromaTouch #10 ea 12/08/21 10/07/23 History Ultra Blue Test Strip) calcium carbonate (Calcium 500) 500 mg PO Q8H PRN Indigestion 06/29/22 10/16/23 History atorvastatin 80 mg tablet 80 mg PO HS #90 tabs 02/12/23 10/16/23 Rx fluticasone propionate 50 2 spray intranasal QAM PRN Allergy 03/01/23 10/16/23 Rx mcg/actuation nasal Symptoms #16 grams spray,suspension carbidopa 10 mg-levodopa 100 mg 2 tab PO QID@0800,1200,1600,2000 06/13/23 Rx tablet 30 days #240 tabs levothyroxine 88 mcg tablet 88 mcg PO DAILYBB #90 tabs 08/05/23 10/16/23 Rx Portable Oxygen E0431 #1 ea 09/13/23 10/07/23 Rx Oxygen Home E0424 #1 ea 09/20/23 10/07/23 Rx duloxetine 30 mg capsule,delayed 30 mg PO DAILY #90 caps 09/30/23 10/16/23 Rx release (Cymbalta) cyanocobalamin (vitamin B-12) 1,000 mcg IM MONTHLY 10/08/23 10/16/23 History 1,000 mcg/mL injection solution acetaminophen 325 mg tablet 650 mg PO Q6H PRN Pain 10/16/23 10/16/23 History (Tylenol) albuterol sulfate 90 mcg/actuation 2 puff inhalation DAILY PRN 10/16/23 10/16/23 History aerosol inhaler (Ventolin HFA) Wheezing bisacodyl 10 mg rectal suppository 10 mg GA DAILY PRN Constipation 10/16/23 10/16/23 History calcium carbonate 500 mg-vitamin 1 tab PO DAILY 10/16/23 10/16/23 History D3 5 mcg (200 unit) tablet (Calcium 500 + D) diclofenac sodium 1 % topical gel 2 g topical BID 10/16/23 10/16/23 History docusate sodium 100 mg capsule 100 mg PO BID 10/16/23 10/16/23 History famotidine 10 mg tablet 10 mg PO DAILY 10/16/23 10/16/23 History latanoprost 0.005 % eye drops 1 drp OPB HS 10/16/23 10/16/23 History magnesium hydroxide 400 mg/5 mL 30 ml PO DAILY PRN Constipation 10/16/23 10/16/23 History oral suspension (Milk of Magnesia) naloxone 4 mg/actuation nasal spray 4 mg intranasal DIRECTED PRN 10/16/23 10/16/23 History Opioid Overdose ondansetron 4 mg disintegrating 4 mg PO Q4H PRN NAUSEA/VOMITING 10/16/23 10/16/23 History tablet oxycodone 5 mg tablet 5 mg PO Q4H PRN Pain (Scale Score 10/16/23 10/16/23 History 4-10) polyethylene glycol 3350 17 17 g PO QDL PRN Constipation 10/16/23 10/16/23 History gram/dose oral powder (Miralax) sennosides 8.6 mg tablet (senna) 17.2 mg PO HS 10/16/23 10/16/23 History sennosides 8.6 mg-docusate sodium 1 tab-cap PO QDL PRN Constipation 10/16/23 10/16/23 History 50 mg tablet (Senokot-S) apixaban 2.5 mg tablet (Eliquis) 2.5 mg PO BID #60 tabs 10/22/23 Rx Hospital Stay Data Consultations 10/16/23 21:28 ED Decision to Admit Stat Diagnostic Imagining Performed 10/16/23 19:24 CT head/brain wo con Stat 10/16/23 20:27 US venous doppler LE BI Stat 10/17/23 11:30 FL video swallow Routine 10/19/23 09:49 CT chest diagnostic wo con Routine 10/20/23 22:[address] [CT head/brain wo con] Urgent Pending Results Patient Have Any Pending Studies at Discharge: No Discharge Instructions Given to Patient (Per Discharging Provider) FOR [facility]: Mrs. Perez was admitted to the hospital due to tachycardia, tachypnea, and hypoxia. Speech evaluation suspects silent aspiration. Their recommendations are listed below. Chest CT suggestive of aspiration pneumonitis/pneumonia. Patient was treated with Zosyn for aspiration pneumonia from 10/16 until 10/21. I discussed her case with pharmacy at the hospital. No further antibiotics are required at this time. Continue supplemental oxygen and as needed with O2 saturation goal of 89%. Mrs. Perez did have some intermittent altered mental status with hallucinations. Her head CT was negative. I suspect this was due to delirium given the waxing and waning presentation. She was receiving oxycodone due to posterior right- sided head pain. This was held given the altered mental status, and she did have some improvement in her cognition. Her head pain has been reasonably controlled with scheduled Tylenol. She had a venous Doppler study on 10/15 which revealed acute DVT within the right peroneal vein. Continue Eliquis twice daily. Continue medications as prescribed. Best regards, Yessi Bains PA-C Total Time Total Time Spent Total Time Spent (In Minutes): Greater than 30 minutes spent completing this discharge process including direct patient care, medication reconciliation, documentation, review of labs and images, and coordination of care. Coding Level of Care Code 38037 INP/OBS DISCH >30 MIN Diagnoses Acute alteration in mental status R41.82 Hypoxia R09.02 Acute deep vein thrombosis (DVT) of right peroneal vein I82.451 DVT location: lower extremity Affected thrombotic vein of extremity: peroneal Chronicity: acute Laterality: right Closed fracture of second thoracic vertebra with routine healing, unspecified fracture morphology, subsequent encounter S22.029D Encounter type: subsequent encounter Fracture morphology: unspecified fracture morphology Fracture healing: with routine healing Hypothyroidism, unspecified type E03.9 Hypothyroidism type: unspecified Parkinson's disease, unspecified whether dyskinesia present, unspecified whether manifestations fluctuate G20.A1 Dyskinesia presence: unspecified whether dyskinesia Fluctuating manifestations: unspecified whether manifestations fluctuate CKD (chronic kidney disease), stage IV N18.4
== END 2023-10-22 13:10 | DRG 177 ==
LOC: ED 19:18 → SUATTDRO 21:49 → EDINP 21:49 → 1E 10-17 14:47 → 2S 10-19 18:35

== ENCOUNTER 2023-11-08 09:12 | Inpatient (IN) ==
--- NOTE | 2023-11-08 09:36 | Emergency Department Note ---
Impression & Plan Altered mental status ED Provider Note ED Provider Note NAME: SOFYA COX AGE:78 SEX: Female : 1945 ARRIVES VIA: EMS INFORMANT: Patient ED PROVIDER(s): Cara Lindo DO CHIEF COMPLAINT: Altered mental status HPI: This is an 78-year-old female brought by EMS due to concern for altered mental status. Caregiver states she arrived to the house at 8 AM and found the patient still in bed. She noted that she had not used her bedside commode at all overnight and asked the patient if she needed to go to the restroom. She states the patient responded "I am . I am going to the light." Caregiver states she tried to help her to the bathroom however she walked in and then turned around and began walking out. Patient states she does not member any of this. Caregiver reports she contacted the daughter who was in agreement with the plan to call 911. Upon arrival of EMS, patient answered questions of orientation is appropriately and seemed improved. Patient at this time does not remember any of these conversations with the caregiver initially. She states that time she feels that his hard to get her words out, and she does not feel "like all the wheels are working today". Patient with recent skull fracture and C-spine fracture. She has been home from [facility] for 2 days. Patient takes eliquis. PAST MEDICAL HISTORY:See Below PAST SURGICAL HISTORY:See Below FAMILY HISTORY:See Below SOCIAL HISTORY:See Below HOME MEDICATIONS:See Below ALLERGIES:See Below VITALS:See Below PHYSICAL EXAMINATION: GENERAL: alert, unwell appearing, well nourished, no distress, Douglas collar in place HEAD: nc EYE EXAM: normal conjunctiva, PERRL and EOM's grossly intact OROPHARYNX: no exudate, no erythema, lips, buccal mucosa, and tongue normal and mucous membranes are moist NECK: supple, no nuchal rigidity, no adenopathy, aspen collar in place LUNGS: Clear to auscultation. Normal chest wall mechanics, no w/r/r HEART: no murmurs, S1 normal and S2 normal ABDOMEN: abdomen soft, non-tender, normo-active bowel sounds, no masses, no rebound or guarding. BACK: Back is symmetrical on inspection and there is no deformity, no midline tenderness, no CVA tenderness. SKIN: no rashes, petechiae, orbruising UPPER EXTREMITIES: upper extremities are grossly normal. FROM, nml pulses b/l. LOWER EXTREMITIES: No pitting edema. FROM, nml pulses b/l. NEURO EXAM: Answers questions of orientation but doesn't recall events of this morning, cranial nerves II-XII grossly intact, normal speech, no facial droop,nogross weakness of arms, no gross weakness of legs. Gross sensation intact. No ataxia. Vital Signs: reviewed and remarkable Differential Diagnosis: ICH, dehydration, stroke, anemia, hypoglycemia, hyponatremia, hypernatremia, urinary tract infection, pneumonia, bronchitis, sepsis, gastroenteritis, additional abdominal pathology, metabolic abnormalities, as well as others were considered MEDICAL DECISION MAKING: THis is an 78 yo female who presents with ams noticed by manager wound care this am. Patient with recent hospitalizations and inpatient rehab admission. Just discharged 2 days ago. She was afebrile and VS stable. Labs drawn and sent, IV established, EKG and CXR performed and interpreted at bedside, and patient placed on telemetry. She was sent for CT head additionally. Urine collected and sent also. Labs and imaging reassuring. Anemia noted but stable compared to prior. She was given IVF rehydration and IV tylenol for her headache. Family eventually arrived at bedside. We discussed evaluation and results. THey state patient is still not in her normal mental state and are concerned about her living alone and her recovery from recent injuries and illness. Case discusesed with the hospitalist team for additional evaluation and mgmt. Consultation(s): 1250: Discussed with Darrell Araujo PA-C with [facility] hospitalist team for additional evaluation and management. ER Treatment Provided: See below Diagnostics Interpreted By Me: -ECG: Normal sinus at 84, normal axis, normal intervals, no acute ST/T wave changes -Cardiac Monitoring: An order was placed for continuous cardiac monitoring. The monitor shows a rate of 90 with normal sinus rhythm. -Laboratory studies: As stated above and show below. -Imaging studies: X-ray Chest: A single view study of the chest was reviewed and was negative for cardiomegaly, effusion, pulmonary edema, or wide mediastinum. PNA vs fibrotic change in left lung. Triage Nursing Note Reviewed Prior/Outside Records Reviewed - prior DC summary reviewed Past Med/Surg History Problem List (Updated 11/09/23 @ 16:35 by Elizabeth Rankin PA-C) Altered mental status (Acute) DVT (deep venous thrombosis) Parkinsons disease Type 2 diabetes mellitus without complication Hypothyroidism Hypoxia (Acute) Acute alteration in mental status (Acute) Closed T2 fracture (Acute ~10/08/23) History of compression fracture of vertebral column (~12/04/18) Thoracic Compression fracture of lumbar spine, non-traumatic (~09/23/23) seeing orthopedics Lumbar radiculopathy Tobacco abuse counseling Hypoxemia Physical deconditioning Pulmonary emphysema Stage 1 skin ulcer of sacral region CKD (chronic kidney disease), stage IV Hypomagnesemia (Acute) UTI (urinary tract infection) (Acute) Weakness (Acute) Fall (Acute) Bacteriuria Mitral valve disorder Abnormal ECG Ischemic stroke Stroke-like symptoms Second degree AV block, Mobitz type II Atrial tachycardia (Acute) Elevated troponin (Acute) Dizziness (Acute) Peripheral artery disease Prediabetes Iron deficiency anemia Compression fracture of lumbar vertebra (Chronic) Kidney stones (Chronic) Vitamin D deficiency (Acute) Primary hypercoagulable state (Chronic) Osteoporosis (Chronic) HTN (hypertension) (Chronic) History of follicular lymphoma Sensorineural hearing loss (SNHL) of both ears Leg length discrepancy Ataxia Secondary hyperparathyroidism of renal origin Memory loss TMJ arthralgia Medical History Hyponatremia Megaloblastic anemia Diet-controlled diabetes mellitus Tremor History of ischemic stroke Second degree AV block, Mobitz type I Chronic deep vein thrombosis (DVT) Acute kidney injury Ankle edema, bilateral Arthritis Asymptomatic menopausal state Blood glucose abnormal Cardiomyopathy Cholelithiasis Chronic GERD Chronic fatigue syndrome Chronic laryngitis Chronic pharyngitis Cigarette smoker motivated to quit Cough 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 Deep vein thrombosis of distal lower extremity Depression Dermatitis, eczematoid Diabetes mellitus (11/29/12) Dizziness Dyspnea on exertion Dysuria Gastropathy Hearing loss Hematuria, microscopic Herpes simplex Hoarseness Hyperglycemia Interstitial lung disease Ischemic colitis Laryngitis Lightheadedness Low back pain Lumbar spinal stenosis Muscle spasm NSTEMI (non-ST elevated myocardial infarction) Nasal dryness Nicotine dependence 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 Recurrent UTI Rib pain on right side SNHL (sensorineural hearing loss) Secondary hyperparathyroidism (of renal origin) Shortness of breath Solitary pulmonary nodule Subsequent non-ST elevation (NSTEMI) myocardial infarction Takotsubo syndrome Tendinitis of left rotator cuff Vertigo GERD (gastroesophageal reflux disease) Chronic kidney disease Hypothyroidism (acquired) Pneumonia Constipation GI bleed Chronic deep vein thrombosis of left lower extremity Sinusitis Hematuria Hyperlipidemia Osteopenia (11/29/12) Thyroid disease Surgical History History of tubal ligation History of D&C History of Hx of colonoscopy Family History Mother , age 76 with leukemia Leukemia Hypertension Father , age 86 with heart issues Myocardial infarction Diabetes Other Family history non-contributory Denies family history of Ovarian cancer Prostate cancer Breast cancer Lung cancer Social History Smoking Status: Former smoker Tobacco Type: Cigarettes Age Started Using Tobacco: 17; Age Quit Using Tobacco: 73; packs per day: 1; Cigarettes Per Day: Only while driving; Second Hand Exposure: No; Do You Dip or Chew Tobacco: No; Hx Alcohol Use: No Hx Substance Use: No Preferred Language: [place] Communication Ability: Impaired Visual Impairment: No Limitations Hearing Ability: Use of Hearing Aid Automatic Winder Operator Required: No Beliefs That Will Affect Care: None marital status: Current Living Situation: Alone Current Living Situation Comment: has caregivers current occupational status: retired 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 Other Information That Helps Us Care for You: No Feels Safe at Home: Yes Safety Concerns: Feels Safe At This Time Childhood Exposure to Second-Hand Smoke: Yes caffeine: No Dental Care, Regularly: No Physical Activity Frequency: Does not Exercise Seatbelt Use: always Sunscreen Use: No Assistive Devices: Oxygen - Continuous and Walker Allergies Allergies Allergy/AdvReac Type Severity Reaction Status Date / Time azithromycin [From Zithromax] Allergy Intermediate HIVES Verified 11/08/23 15:21 nitrofurantoin Allergy Intermediate HIVES,ITCHI Verified 11/08/23 15:21 NG tramadol AdvReac Mild nausea Verified 11/08/23 15:21 Home Meds Home Medications Medication Instructions Recorded Confirmed acetaminophen 325 mg tablet 650 mg PO Q6 11/08/23 11/08/23 (Tylenol) albuterol sulfate 90 mcg/actuation 2 inh inhalation DAILY PRN 11/08/23 11/08/23 aerosol inhaler Shortness Of Breath Or Wheezing apixaban 2.5 mg tablet (Eliquis) 2.5 mg PO Q12 11/08/23 11/08/23 atorvastatin 80 mg tablet 80 mg PO DAILY 11/08/23 11/08/23 carbidopa 10 mg-levodopa 100 mg 2 tab PO QID 11/08/23 11/08/23 tablet duloxetine 30 mg capsule,delayed 30 mg PO DAILY 11/08/23 11/08/23 release famotidine 20 mg tablet 20 mg PO DAILY 11/08/23 11/08/23 fluticasone propionate 50 2 spray intranasal DAILY PRN 11/08/23 11/08/23 mcg/actuation nasal .allergy symptoms spray,suspension (Flonase Allergy Relief) latanoprost 0.005 % eye drops 1 drp OPB HS 11/08/23 11/08/23 levothyroxine 88 mcg tablet 88 mcg PO QAM 11/08/23 11/08/23 Results & Data (ED) Vital Signs Vital Signs - 24 hr 11/08/23 09:26 11/08/23 09:34 11/08/23 09:50 Temperature 36.9 C Temperature Source Temporal Artery Scan Pulse Rate 84 82 Pulse Rate [Apical] Respiratory Rate 27 H 27 H Blood Pressure 137/64 Blood Pressure [Right Arm] Blood Pressure Mean 88 Blood Pressure Mean [Right Arm] Pulse Oximetry 98 98 Oxygen Delivery Method Nasal Cannula Nasal Cannula Oxygen Flow Rate 2 2 Sepsis Recent Fever Within 48 Hours No Sepsis New/Unexplained Change in Mental Status No Sepsis Action Taken by Nursing No Action Required Pulse Oximetry Post Tiitration 11/08/23 09:57 11/08/23 11:39 Temperature Temperature Source Pulse Rate Pulse Rate [Apical] 92 H Respiratory Rate 19 Blood Pressure Blood Pressure [Right Arm] 145/66 H Blood Pressure Mean Blood Pressure Mean [Right Arm] 92 Pulse Oximetry 99 Oxygen Delivery Method Nasal Cannula Nasal Cannula Oxygen Flow Rate 2 2 Sepsis Recent Fever Within 48 Hours Sepsis New/Unexplained Change in Mental Status Sepsis Action Taken by Nursing Pulse Oximetry Post Tiitration 98 Laboratory Data 11/09/23 06:40 11/09/23 06:40 Lab Results 11/08/23 Range/Units 09:40 WBC 6.00 (4.8-10.8) K/ul RBC 3.19 L (4.20-5.40) M/uL Hgb 10.7 L (12.0-16.0) g/dl Hct 33.3 L (37.0-47.0) % MCV 104.4 H (80.0-100.0) fL MCH 33.5 (25.0-34.0) pg MCHC 32.1 (32.0-36.0) g/dL RDW Std Deviation 57.0 H (36.4-46.3) fL RDW Coeff of Damien 14.8 H (11.5-14.5) % Plt Count 344 (130-400) K/uL MPV 10.3 (9.4-12.4) fL Immature Gran % (Auto) 0.2 % Neut % (Auto) 63.3 % Lymph % (Auto) 23.8 % Warren % (Auto) 7.7 % Eos % (Auto) 4.2 % Baso % (Auto) 0.8 % Neut # (Auto) 3.80 (1.40-6.50) K/uL Lymph # (Auto) 1.43 (1.20-3.40) K/uL Warren # (Auto) 0.46 (0.11-0.59) K/uL Eos # (Auto) 0.25 (0.00-0.50) K/uL Baso # (Auto) 0.05 (0.00-0.20) K/uL Immature Gran # (Auto) 0.01 (0.01-0.20) K/uL Sodium 135 L (136-145) mmol/L Potassium 4.5 (3.5-5.1) mmol/L Chloride 99 (98-107) mmol/L Carbon Dioxide 31 (21-32) mmol/L Anion Gap 5 (3-11) BUN 16 (6-23) mg/dl Creatinine 1.23 H (0.6-1.2) mg/dl Est Cr Clr Drug Dosing 22.0 ml/min Est GFR ( Amer) 48.0 ml/min Est GFR (Non-Af Amer) 41.4 ml/min BUN/Creatinine Ratio 13.0 (10-20) Glucose 100 H (70-99(Fasting)) mg/dl Calcium 8.7 (8.6-10.3) mg/dl Magnesium 1.7 (1.7-2.4) mg/dl Total Bilirubin 0.5 (0.2-1.0) mg/dl AST 26 (13-39) U/L ALT 3 L (7-52) U/L Alkaline Phosphatase 290 H (34-104) U/L Troponin I High Sens 12.8 (0-14) pg/ml B-Natriuretic Peptide 118 H (0-100) pg/ml Total Protein 6.8 (6.0-8.3) gm/dl Albumin 3.5 (3.4-5.0) gm/dl Globulin 3.3 (2.5-4.0) gm/dl Albumin/Globulin Ratio 1.1 (0.9-2) Lipase 7 L (11-82) U/L Procalcitonin Cancelled TSH 1.049 (0.300-4.500) uIu/ml Administered Medications Acetaminophen (Acetaminophen 325 Mg Tab) 650 mg PO Q6H PRN PRN Reason: pain(1-4),headache,fever Stop: 12/08/23 15:06 Last Admin: 11/09/23 16:41 Dose: 650 mg Documented By: Admin: 11/09/23 09:10 Dose: 650 mg Documented By: Admin: 11/09/23 00:41 Dose: 650 mg Documented By: RAMON Apixaban (Apixaban 2.5 Mg Tab) 2.5 mg PO Q12 [facility] Stop: 12/08/23 20:59 Last Admin: 11/09/23 09:09 Dose: 2.5 mg Documented By: Admin: 11/08/23 20:56 Dose: 2.5 mg Documented By: MAC Atorvastatin Calcium (Atorvastatin 40 Mg Tab) 80 mg PO DAILY [facility] Stop: 12/09/23 08:59 Last Admin: 11/09/23 09:09 Dose: 80 mg Documented By: KATHERINE Carbidopa/Levodopa (Carbidopa/Levodop 10/100mg Tab) 2 tab PO QID [facility] Stop: 12/08/23 20:59 Last Admin: 11/09/23 16:42 Dose: 2 tab Documented By: Admin: 11/09/23 14:29 Dose: 2 tab Documented By: Admin: 11/09/23 09:09 Dose: 2 tab Documented By: Admin: 11/08/23 20:56 Dose: 2 tab Documented By: MAC Duloxetine HCl (Duloxetine Hcl 30 Mg Cap) 30 mg PO DAILY [facility] Stop: 12/09/23 08:59 Last Admin: 11/09/23 09:09 Dose: 30 mg Documented By: KATHERINE Famotidine (Famotidine 20 Mg Tab) 20 mg PO DAILY [facility] Stop: 12/09/23 08:59 Last Admin: 11/09/23 09:09 Dose: 20 mg Documented By: KATHERINE Insulin Aspart (Insulin Aspart Per Unit Charge) 0 units SC ACHS [facility] Stop: 12/08/23 16:29 Last Admin: 11/09/23 18:20 Dose: Not Given Documented By: Admin: 11/09/23 13:15 Dose: Not Given Documented By: Admin: 11/09/23 09:09 Dose: Not Given Documented By: Admin: 11/08/23 20:56 Dose: Not Given Documented By: Admin: 11/08/23 18:29 Dose: 1 units Documented By: ALYSON Co-signed By: BALJIT Levothyroxine Sodium (Levothyroxine Sodium 88 Mcg Tablet) 88 mcg PO QAM [facility] Stop: 12/09/23 08:59 Last Admin: 11/09/23 09:09 Dose: 88 mcg Documented By: KATHERINE Discontinued Medications Sodium Chloride (Nss) 1,000 mls @ 125 mls/hr IV .Q8H [facility] Stop: 12/08/23 09:29 Last Infusion: 11/08/23 21:47 Dose: Infused Documented By: Admin: 11/08/23 20:30 Dose: 125 mls/hr Documented By: Infusion: 11/08/23 18:41 Dose: Infused Documented By: Admin: 11/08/23 10:41 Dose: 125 mls/hr Documented By: GLENN Acetaminophen (Ofirmev) 1,000 mg in 100 mls @ 400 mls/hr IV NOW STA Stop: 11/08/23 12:40 Last Infusion: 11/08/23 12:55 Dose: Infused Documented By: Admin: 11/08/23 12:34 Dose: 400 mls/hr Documented By: ALYSON Magnesium Sulfate/Dextrose (Magnesium Sulfate / D5w) 1 gm in 100 mls @ 50 mls/hr IV ONE ONE Stop: 11/09/23 14:35 Last Infusion: 11/09/23 16:04 Dose: Infused Documented By: Admin: 11/09/23 13:40 Dose: 50 mls/hr Documented By: KATHERINE Imaging Data Radiologist's Impression: Chest X-Ray 11/08/23 09:31 XR chest 1V portable HISTORY: 78 years-old Female cough, ams acute cough COMPARISON: Chest radiograph 10/16/2023, chest CT 10/19/2023 TECHNIQUE: AP view of the chest FINDINGS: Cardiac silhouette is enlarged. Emphysema with persistent reticulonodular opacities. Persistent left basilar predominant consolidation. No pneumothorax, large pleural effusion or overt pulmonary edema. Degenerative changes of the shoulders and spine. IMPRESSION: 1. Cardiomegaly without overt pulmonary edema. 2. Emphysema with unchanged reticulonodular opacities and left basilar predominant consolidation. ACT 112: Negative or not required by law. The above report was generated using voice recognition software. It may contain grammatical, syntax or spelling errors. Electronically signed by: Josh Kimbrough M.D. 11/08/2023 10:[address] 11/08/23 09:31 CT head/brain wo con CLINICAL HISTORY: ams Technique: Contiguous axial CT images of the head were acquired from the base of the skull to the vertex without intravenous contrast administration. Images were viewed in brain, subdural and bone windows. Automated dose lowering techniques and/or adjustment according to patient size were utilized for this exam. Comparison: Comparison is made to CT head 10/12/2023 Findings: The ventricles, basal cisterns, and cerebral sulci are normal. There is no acute intracranial hemorrhage or evidence of acute territorial infarction. Neither mass effect, shift of the midline structures, nor abnormal extra-axial fluid collections are shown. Hypodensity in the left insula is unchanged. Imaged portions of the paranasal sinuses and mastoid air cells are clear. The orbits appear normal. There are no acute fractures of the calvaria or scalp swelling. Impression: No acute intracranial hemorrhage, no evidence of acute territorial infarction or other acute intracranial disease process. ACT 112: Negative or not required by law. Electronically signed by: Jorge Tierney M.D. 11/08/2023 11:58 AM Discharge Plan Visit Data Chief Complaint: Altered Mental Status Stated Complaint: EPISODE AMS ED Provider: Pheasant,Cara S. Discharge Problem: Altered mental status Patient Disposition: Admitted As Inpatient Discharge Instructions Interventions: ED Discharge Assessment Last Done: 11/08/23 14:51
[2023-11-08 10:03] LABS: Basophils # (auto) 0.05 K/uL (0.00-0.20); Basophils % (auto) 0.8 %; Eosinophils # (auto) 0.25 K/uL (0.00-0.50); Eosinophils % (auto) 4.2 %; Hematocrit (blood only) 33.3 % (37.0-47.0); Hemoglobin 10.7 g/dl (12.0-16.0); Immature Granulocytes # (auto) 0.01 K/uL (0.01-0.20); Immature Granulocytes % (auto) 0.2 %; Lymphocytes # (auto) 1.43 K/uL (1.20-3.40); Lymphocytes % (auto) 23.8 %; Mean Corpuscular Hemoglobin 33.5 pg (25.0-34.0); Mean Corpuscular Hgb Conc 32.1 g/dL (32.0-36.0); Mean Corpuscular Volume 104.4 fL (80.0-100.0); Mean Platelet Volume 10.3 fL (9.4-12.4); Monocytes # (auto) 0.46 K/uL (0.11-0.59); Monocytes % (auto) 7.7 %; Neutrophils % (auto) 63.3 %; Platelet Count 344 K/uL (130-400); RDW Coefficient of Variation 14.8 % (11.5-14.5); Red Blood Count 3.19 M/uL (4.20-5.40)
--- NOTE | 2023-11-08 10:10 | XRay Report ---
XR chest 1V portable HISTORY: 78 years-old Female cough, ams acute cough COMPARISON: Chest radiograph 10/16/2023, chest CT 10/19/2023 TECHNIQUE: AP view of the chest FINDINGS: Cardiac silhouette is enlarged. Emphysema with persistent reticulonodular opacities. Persistent left basilar predominant consolidation. No pneumothorax, large pleural effusion or overt pulmonary edema. Degenerative changes of the shoulders and spine. IMPRESSION: 1. Cardiomegaly without overt pulmonary edema. 2. Emphysema with unchanged reticulonodular opacities and left basilar predominant consolidation. ACT 112: Negative or not required by law. The above report was generated using voice recognition software. It may contain grammatical, syntax o r spelling errors. Electronically signed by: Josh Kimbrough M.D. 11/08/2023 10:09 AM
[2023-11-08 10:19] LABS: Albumin Globulin Ratio 1.1 (0.9-2); Albumin Level 3.5 gm/dl (3.4-5.0); Bilirubin,Total 0.5 mg/dl (0.2-1.0); Calcium 8.7 mg/dl (8.6-10.3); Est GFR (Non-African American) 41.4 ml/min; Globulin 3.3 gm/dl (2.5-4.0); Magnesium 1.7 mg/dl (1.7-2.4); Potassium 4.5 mmol/L (3.5-5.1); Total Protein 6.8 gm/dl (6.0-8.3)
[2023-11-08 10:27] LABS: Troponin I High Sensitivity 12.8 pg/ml (0-14)
[2023-11-08 10:36] LABS: Thyroid Stimulating Hormone 1.049 uIu/ml (0.300-4.500)
[2023-11-08] MEDS: SODIUM CHLORIDE 0.9% 1,000 ML IV SCH (10:41)
[2023-11-08 11:59] LABS: Appearance Urine Clear (Clear); Bacteria Urine Automated None Seen (None Seen); Bilirubin Urine Negative (Negative); Blood Urine Negative (Negative); Cast Urine Automated 0-2 /lpf (0-2); Color Urine Yellow; Epithelial Cell Urine Auto 0-2 /hpf (0-2); Glucose Urine UA Negative (Negative); Ketones Urine Trace (Negative); Leukocyte Esterase Urine Trace (Negative); Nitrite Urine Negative (Negative); Protein Urine Negative (Negative); RBC Urine Automated 0-2 /hpf (0-2); Specific Gravity Urine 1.013 (1.000-1.030); Urobilinogen Urine Negative (Negative); WBC Urine Automated 0-5 /hpf (0-5); pH Urine 6.5 (4.5-7.5)
--- NOTE | 2023-11-08 12:01 | CT Scan Report ---
CT head/brain wo con CLINICAL HISTORY: ams Technique: Contiguous axial CT images of the head were acquired from the base of the skull to the joshua yasmeen without intravenous contrast administration. Images were viewed in brain, subdural and bone [facility] ws. Automated dose lowering techniques and/or adjustment according to patient size were utilized for this exam. Comparison: Comparison is made to CT head 10/12/2023 Findings: The ventricles, basal cisterns, and cerebral sulci are normal. There is no acute intracranial hemorrh age or evidence of acute territorial infarction. Neither mass effect, shift of the midline structures , nor abnormal extra-axial fluid collections are shown. Hypodensity in the left insula is unchanged. Imaged portions of the paranasal sinuses and mastoid air cells are clear. The orbits appear normal. There are no acute fractures of the calvaria or scalp swelling. Impression: No acute intracranial hemorrhage, no evidence of acute territorial infarction or other acute intracra nial disease process. ACT 112: Negative or not required by law. Electronically signed by: Jorge Tierney M.D. 11/08/2023 11:58 AM
[2023-11-08] MEDS: ACETAMINOPHEN 1,000 MG/100 ML VIAL IV STA (12:34)
--- NOTE | 2023-11-08 12:45 | History & Physical Report ---
Date of Service November 08, 2023 Assessment & Plan (1) Altered mental status: Plan: -Admit to med/tele on pulse oximetry -Currently stable and alert -Has been experiencing intermittent episodes of visual and auditory hallucinations since being discharged home from [facility] on 11/05/23 -No focal neuro findings on exam, CT head/brain negative for acute findings, no signs of infection thus far on workup -Suspect that the patient's hallucinations are due to multiple recent hospitalizations/rehab stays and ongoing oxycodone use, but cannot rule out CVA or possible dementia -She did suffer a subarachnoid hemorrhage after her fall last month; mental status changes could be associate with this as well -Diagnosed with silent aspiration and aspiration pneumonia last admission, still noted to have the left basilar predominant consolidation on CXR today >No leukocytosis, will add on procal for further evaluation -Will try and hold narcotics for now and treat pain conservatively -Will obtain MRI of the brain wo con to monitor for new CVA's -Q4h neuro checks -Fall/aspiration precautions -PT/OT consults -HH/DMII diet with minced/moist texture -Home eliquis for DVT PPX -AM CBC, CMP,mag, PT/INR (2) DVT (deep venous thrombosis): Plan: -Continue eliquis (3) Type 2 diabetes mellitus without complication: Plan: -Monitor BSG ACHS, goal is 110-160 -Not on outpatient regimen -Start CF 50 and CR of 20 ACHS for now -Adjust regimen as needed (4) Closed T2 fracture: Plan: -Continue Cervical collar -Fall precautions/aspiration precautions -Pain control with tylenol and lidocaine patch for now -Try to avoid narcotics with AMS (5) Parkinsons disease: Plan: -Continue Carbidopa-Levodopa (6) Hypoxia: Plan: -Currently stable on baseline 3L NC -Has been oxygen dependent since last admission for aspiration pneumonia -Known to have silent aspiration -Will add on procal, if elevated will treat for recurrent aspiration pneumonia -Incentive spirometry, flutter therapy -PRN O2 to keep SpO2 at or above 92% (7) HTN (hypertension): Plan: -Stable -Continue to monitor as she is not on antihypertensives at home Plan -The patient was discussed with Dr. Perry at the time of the admission History of Present Illness Chief Complaint: AMS Primary Care Provider: DO Elyse Russo is a 78 year old female with a PMH significant for recent subarachnoid hemorrhage and T1 fracture after sustaining a ground level fall with transfer to [facility] on 10/08/23, treatment was conservative at [facility] and she was discharged to [facility], recent admission to [facility] from 10/15-10/21 for Metabolic encephalopathy and hypoxia due to aspiration pneumonia, previous DVT's (on Eliquis), previous embolic CVA's, hypothyroidism, Parkinsons's disease, CKD who presented to the [facility] ED on 11/08/23 via EMS due to concerns of AMS when her home health aid arrived this AM. The patient has reportedly been on supplemental O2 since her last admission to [facility] last month. She remained stable on 2L NC and was otherwise stable. Labs including CBC, CMP, TSH, and BNP were unremarkable compared to recent labs from 10/22/23. UA was noted to have trace ketones and leukocyte esterase but was otherwise WNL. Full respiratory biofire was in process. CT of the head/brain wo con was read as negative for acute findings. Chest xray was read as "1. Cardiomegaly without overt pulmonary edema. 2. Emphysema with unchanged reticulonodular opacities and left basilar predominant consolidation.". The patient was given 1L NSS and 1gm IV tylenol on arrival. Family at bedside confirmed that the patient was still acting confused compared to previous [facility]. At the time of the exam the patient was sitting in bed in no acute distress with multiple family members bedside. Family explains that the patient was discharged home from [facility] on 11/05/23. Since arriving home she has home health during the day but they leave by 9pm and the patient is alone overnight. Family states this was not the initial expectation on discharge. Since being home the patient has had intermittent episodes of confusion and visual hallucinations. This am she told them that she and saw the [facility] with multiple people in her bedroom that were not actually there. The patient confirms this occurred. She has not been eating/drinking well since discharge home. Family explains that the patient was discharge from [facility] with a total of 10, 10 mg Oxycodone tabs which they were unaware of. They state that 7/10 tabs were in the bottle as of this am. The patient denies recent fever, chills, chest pain, increased SOB from baseline, abd pain, nausea, vomiting, dysuria, hematuria, melena, LE swelling. Family confirms that the patient is a DNR/DNI and her daughter, Almita, is her POA. Please refer to Dr. Perry's attestation for any changes to the treatment plan Allergies Allergy/AdvReac Type Severity Reaction Status Date / Time azithromycin [From Zithromax] Allergy Intermediate HIVES Verified 11/08/23 15:21 nitrofurantoin Allergy Intermediate HIVES,ITCHI Verified 11/08/23 15:21 NG tramadol AdvReac Mild nausea Verified 11/08/23 15:21 Home Medications Medication Instructions Recorded Confirmed Type acetaminophen 325 mg tablet 650 mg PO Q6 11/08/23 11/08/23 History (Tylenol) albuterol sulfate 90 mcg/actuation 2 inh inhalation DAILY PRN 11/08/23 11/08/23 History aerosol inhaler Shortness Of Breath Or Wheezing apixaban 2.5 mg tablet (Eliquis) 2.5 mg PO Q12 11/08/23 11/08/23 History atorvastatin 80 mg tablet 80 mg PO DAILY 11/08/23 11/08/23 History carbidopa 10 mg-levodopa 100 mg 2 tab PO QID 11/08/23 11/08/23 History tablet duloxetine 30 mg capsule,delayed 30 mg PO DAILY 11/08/23 11/08/23 History release famotidine 20 mg tablet 20 mg PO DAILY 11/08/23 11/08/23 History fluticasone propionate 50 2 spray intranasal DAILY PRN 11/08/23 11/08/23 History mcg/actuation nasal .allergy symptoms spray,suspension (Flonase Allergy Relief) latanoprost 0.005 % eye drops 1 drp OPB HS 11/08/23 11/08/23 History levothyroxine 88 mcg tablet 88 mcg PO QAM 11/08/23 11/08/23 History Past Med/Surg History Problem List (Updated 11/08/23 @ 09:36 by Cara Lindo DO) Altered mental status (Acute) DVT (deep venous thrombosis) Parkinsons disease Type 2 diabetes mellitus without complication Hypothyroidism Hypoxia (Acute) Acute alteration in mental status (Acute) Closed T2 fracture (Acute ~10/08/23) History of compression fracture of vertebral column (~12/04/18) Thoracic Compression fracture of lumbar spine, non-traumatic (~09/23/23) seeing orthopedics Lumbar radiculopathy Tobacco abuse counseling Hypoxemia Physical deconditioning Pulmonary emphysema Stage 1 skin ulcer of sacral region CKD (chronic kidney disease), stage IV Hypomagnesemia (Acute) UTI (urinary tract infection) (Acute) Weakness (Acute) Fall (Acute) Bacteriuria Mitral valve disorder Abnormal ECG Ischemic stroke Stroke-like symptoms Second degree AV block, Mobitz type II Atrial tachycardia (Acute) Elevated troponin (Acute) Dizziness (Acute) Peripheral artery disease Prediabetes Iron deficiency anemia Compression fracture of lumbar vertebra (Chronic) Kidney stones (Chronic) Vitamin D deficiency (Acute) Primary hypercoagulable state (Chronic) Osteoporosis (Chronic) HTN (hypertension) (Chronic) History of follicular lymphoma Sensorineural hearing loss (SNHL) of both ears Leg length discrepancy Ataxia Secondary hyperparathyroidism of renal origin Memory loss TMJ arthralgia Medical History Hyponatremia Megaloblastic anemia Diet-controlled diabetes mellitus Tremor History of ischemic stroke Second degree AV block, Mobitz type I Chronic deep vein thrombosis (DVT) Acute kidney injury Ankle edema, bilateral Arthritis Asymptomatic menopausal state Blood glucose abnormal Cardiomyopathy Cholelithiasis Chronic GERD Chronic fatigue syndrome Chronic laryngitis Chronic pharyngitis Cigarette smoker motivated to quit Cough 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 Deep vein thrombosis of distal lower extremity Depression Dermatitis, eczematoid Diabetes mellitus (11/29/12) Dizziness Dyspnea on exertion Dysuria Gastropathy Hearing loss Hematuria, microscopic Herpes simplex Hoarseness Hyperglycemia Interstitial lung disease Ischemic colitis Laryngitis Lightheadedness Low back pain Lumbar spinal stenosis Muscle spasm NSTEMI (non-ST elevated myocardial infarction) Nasal dryness Nicotine dependence 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 Recurrent UTI Rib pain on right side SNHL (sensorineural hearing loss) Secondary hyperparathyroidism (of renal origin) Shortness of breath Solitary pulmonary nodule Subsequent non-ST elevation (NSTEMI) myocardial infarction Takotsubo syndrome Tendinitis of left rotator cuff Vertigo GERD (gastroesophageal reflux disease) Chronic kidney disease Hypothyroidism (acquired) Pneumonia Constipation GI bleed Chronic deep vein thrombosis of left lower extremity Sinusitis Hematuria Hyperlipidemia Osteopenia (11/29/12) Thyroid disease Surgical History History of tubal ligation History of D&C History of Hx of colonoscopy Family History Mother , age 76 with leukemia Leukemia Hypertension Father , age 86 with heart issues Myocardial infarction Diabetes Other Family history non-contributory Denies family history of Ovarian cancer Prostate cancer Breast cancer Lung cancer Social History Smoking Status: Former smoker Tobacco Type: Cigarettes Age Started Using Tobacco: 17; Age Quit Using Tobacco: 73; packs per day: 1; Cigarettes Per Day: Only while driving; Second Hand Exposure: No; Do You Dip or Chew Tobacco: No; Hx Alcohol Use: No Hx Substance Use: No Preferred Language: Albanian Communication Ability: Impaired Visual Impairment: No Limitations Hearing Ability: Use of Hearing Aid Purchasing And Claims Supervisor Required: No Beliefs That Will Affect Care: None marital status: Current Living Situation: Alone Current Living Situation Comment: has caregivers current occupational status: retired 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 Other Information That Helps Us Care for You: No Feels Safe at Home: Yes Safety Concerns: Feels Safe At This Time Childhood Exposure to Second-Hand Smoke: Yes caffeine: No Dental Care, Regularly: No Physical Activity Frequency: Does not Exercise Seatbelt Use: always Sunscreen Use: No Assistive Devices: Oxygen - Continuous and Walker Physical Exam Physical Exam: Physical Exam: General: In no acute distress, stated age, chronically ill appearing and malnourished HEENT: No new trauma noted, C-collar is in place, no scleral icterus, pupils around round, symmetrical, and reactive to light, dry mucus membranes, trachea midline, no thyromegaly Chest/Pulm: No respiratory distress, symmetrical chest expansion, rhonchi noted in the BL lower lung rees Cardiac: RRR, no murmurs noted Abdomen: Negative for ascites and bruising, normoactive bowel sounds, soft, non-tender to palpation throughout Musculoskeletal: C-collar is in place due to previous upper thoracic spine fractures, no acute trauma noted on exam of the head/neck/back/chest/BL upper/lower extremities/his/BL LE's Extremities: Radial, dorsalis pedis, and posterior tibial pulses are intact and symmetrical, no edema noted in the BL LE's Skin: Warm, dry, no rashes , lesions, or scars noted Neuro: Alert and oriented to person, place, month, year, and president, no focal defects, CN II-XII tested and intact, baseline tremor noted Psych: No acute distress, calm, polite, and cooperative during the exam. No current confusion/hallucinations Results & Data Results & Data Vital Signs (Past 12 Hours) Vital Signs Temp Pulse Pulse Resp BP BP Pulse Ox 11/08/23 11:39 92 H 19 145/66 H 99 11/08/23 09:57 11/08/23 09:50 27 H 98 11/08/23 09:34 36.9 C 82 27 H 137/64 98 11/08/23 09:26 84 O2 Del Method O2 Flow Rate 11/08/23 11:39 Nasal Cannula 2 11/08/23 09:57 Nasal Cannula 2 11/08/23 09:50 Nasal Cannula 2 11/08/23 09:34 Nasal Cannula 2 11/08/23 09:26 Laboratory Results Abnormal lab results 11/08/23 11/08/23 Range/Units 09:40 Unknown RBC 3.19 L (4.20-5.40) M/uL Hgb 10.7 L (12.0-16.0) g/dl Hct 33.3 L (37.0-47.0) % MCV 104.4 H (80.0-100.0) fL RDW Std Deviation 57.0 H (36.4-46.3) fL RDW Coeff of Damien 14.8 H (11.5-14.5) % Sodium 135 L (136-145) mmol/L Creatinine 1.23 H (0.6-1.2) mg/dl Glucose 100 H (70-99(Fasting)) mg/dl ALT 3 L (7-52) U/L Alkaline Phosphatase 290 H (34-104) U/L B-Natriuretic Peptide 118 H (0-100) pg/ml Lipase 7 L (11-82) U/L Urine Ketones Trace H (Negative) Ur Leukocyte Esterase Trace H (Negative) Diagnostic Findings Chest X-Ray 11/08/23 09:31 XR chest 1V portable HISTORY: 78 years-old Female cough, ams acute cough COMPARISON: Chest radiograph 10/16/2023, chest CT 10/19/2023 TECHNIQUE: AP view of the chest FINDINGS: Cardiac silhouette is enlarged. Emphysema with persistent reticulonodular opacities. Persistent left basilar predominant consolidation. No pneumothorax, large pleural effusion or overt pulmonary edema. Degenerative changes of the shoulders and spine. IMPRESSION: 1. Cardiomegaly without overt pulmonary edema. 2. Emphysema with unchanged reticulonodular opacities and left basilar p redominant consolidation. ACT 112: Negative or not required by law. The above report was generated using voice recognition software. It may contain grammatical, syntax or spelling errors. Electronically signed by: Josh Kimbrough M.D. 11/08/2023 10:[address] 11/08/23 09:31 CT head/brain wo con CLINICAL HISTORY: ams Technique: Contiguous axial CT images of the head were acquired from the base of the skull to the vertex without intravenous contrast administration. Images were viewed in brain, subdural and bone windows. Automated dose lowering techniques and/or adjustment according to patient size were utilized for this exam. Comparison: Comparison is made to CT head 10/12/2023 Findings: The ventricles, basal cisterns, and cerebral sulci are normal. There is no acute intracranial hemorrhage or evidence of acute territorial infarction. Neither mass effect, shift of the midline structures, nor abnormal extra-axial fluid collections are shown. Hypodensity in the left insula is unchanged. Imaged portions of the paranasal sinuses and mastoid air cells are clear. The orbits appear normal. There are no acute fractures of the calvaria or scalp swelling. Impression: No acute intracranial hemorrhage, no evidence of acute territorial infarction or other acute intracranial disease process. ACT 112: Negative or not required by law. Electronically signed by: Jorge Tierney M.D. 11/08/2023 11:58 AM ECG Additional Comments: Normal sinus rhythm Normal ECG When compared with ECG of 16-OCT-2023 20:56, Criteria for Inferior infarct are no longer Present Code Status & VTE Plan Code Status DNR/DNI VTE Prophylaxis Plan VTE Prophylaxis will be ordered: Yes Supervising Physician Co-Signing Physician Notes I personally saw and examined the patient. I verified all machado points and agree with Darrell Araujo PA-C with the following exceptions and/or additions: 78 year old female presents to the ER with acute encephalopathy over the last 24 hours. Recent admission for encephalopathy thought to be secondary due to pneumonia. Making multiple unusual statements but no focal neurological problems. O/E Alert and orientated x3, HS RRR, no murmurs, Bibasal crackles, Abdo SNT, no areas of cellulitis noted, neck in brace A/P Acute encephalopathy - no definitive cause on admission. Hold all opiates. Monitor for possible pneumonia but no WBC or procalcitonin elevation on admission, suspect CXR changes from prior pneumonia. G PG Care Time/CCT Total # of Minutes Spent Total Time Spent with Patient: Total time spent is greater than 50% in coordination of care (as documented) at patient's floor/unit and/or counseling patient: Coding [place] [address] INT INP/OBS CARE 3/75MIN Patient Type Established Medical Decision Making High Complexity Diagnoses Altered mental status R41.82 Acute deep vein thrombosis (DVT) of right peroneal vein I82.451 Affected thrombotic vein of extremity: peroneal Chronicity: acute DVT location: lower extremity Laterality: right Type 2 diabetes mellitus without complication E11.9 Closed fracture of second thoracic vertebra with routine healing, unspecified fracture morphology, subsequent encounter S22.D Encounter type: subsequent encounter Fracture healing: with routine healing Fracture morphology: unspecified fracture morphology Parkinson's disease, unspecified whether dyskinesia present, unspecified whether manifestations fluctuate G20.A1 Dyskinesia presence: unspecified whether dyskinesia Fluctuating manifestations: unspecified whether manifestations fluctuate Hypoxia R09.02 Essential hypertension I10 Hypertension type: essential hypertension (2) DVT (deep venous thrombosis) Affected thrombotic vein of extremity: peroneal Chronicity: acute DVT location: lower extremity Laterality: right Qualified Code(s): I82.451 - Acute embolism and thrombosis of right peroneal vein (4) Closed T2 fracture Encounter type: subsequent encounter Fracture healing: with routine healing Fracture morphology: unspecified fracture morphology Qualified Code(s): S22.029D - Unspecified fracture of second thoracic vertebra, subsequent encounter for fracture with routine healing (5) Parkinsons disease Dyskinesia presence: unspecified whether dyskinesia Fluctuating alejandro festations: unspecified whether manifestations fluctuate Qualified Code(s): G20.A1 - Parkinson's disease without dyskinesia, without mention of fluctuations (7) HTN (hypertension) Hypertension type: essential hypertension Qualified Code(s): I10 - Essential (primary) hypertension
[2023-11-08 13:05] LABS: Adenovirus PCR Not Detected (NotDetected); Bordetella parapertussis PCR Not Detected (NotDetected); Bordetella pertussis PCR Not Detected (NotDetected); Chlamydia pneumoniae PCR Not Detected (NotDetected); Coronavirus 229E PCR Not Detected (NotDetected); Coronavirus CoV-2 (COVID19)PCR Not Detected (NotDetected); Coronavirus HKU1 PCR Not Detected (NotDetected); Coronavirus NL63 PCR Not Detected (NotDetected); Coronavirus OC43PCR Not Detected (NotDetected); Human Metapneumovirus PCR Not Detected (NotDetected); Influenza A PCR Not Detected (NotDetected); Influenza B PCR Not Detected (NotDetected); Mycoplasma pneumoniae PCR Not Detected (NotDetected); Parainfluenza Virus 1 PCR Not Detected (NotDetected); Parainfluenza Virus 2 PCR Not Detected (NotDetected); Parainfluenza Virus 3 PCR Not Detected (NotDetected); Parainfluenza Virus 4 PCR Not Detected (NotDetected); Respiratory Syncytial VirusPCR Not Detected (NotDetected); Rhinovirus/Enterovirus PCR Not Detected (NotDetected)
[2023-11-08] MEDS ORDERED: GLUCAGON FOR INJ 1 MG VIAL SQ PRN (13:43)
[2023-11-08] MEDS ORDERED: CARBOHYDRATES FOR HYPOGLYCEMIA PO PRN (13:43)
[2023-11-08] MEDS ORDERED: GLUCOSE 40% GEL 15 GM TUBE PO PRN (13:43)
[2023-11-08] MEDS ORDERED: GLUCOSE 10 TAB/TUBE PO PRN (13:43)
[2023-11-08] MEDS ORDERED: DEXTROSE 50% 50 ML SYRINGE IV PRN (13:43)
--- NOTE | 2023-11-08 15:25 | Electrocardiogram Report ---
Test Reason : Blood Pressure : / mmHG Vent. Rate : 084 BPM Atrial Rate : 084 BPM P-R Int : 172 ms QRS Dur : 086 ms QT Int : 378 ms P-R-T Axes : 033 -13 028 degrees QTc Int : 446 ms Normal sinus rhythm Normal ECG When compared with ECG of 16-OCT-2023 20:56, Criteria for Inferior infarct are no longer Present Confirmed by Chico Garcia ([id number]) on 11/08/2023 3:24:25 PM Referred By: REFERRED SELF Confirmed By:Gio Garcia
--- NOTE | 2023-11-08 16:11 | Magnetic Resonance Report ---
MR brain wo con CLINICAL HISTORY: AMS, hx of CVA's TECHNIQUE: Multiplanar and multisequence MR images of the brain were obtained without intravenous con trast. Comparison: Comparison is made to MRI brain 07/22/2023 FINDINGS: No abnormal restricted diffusion is identified. Foci of T2 and FLAIR hyperintensity are noted in the paraventricular areas consistent with chronic small vessel ischemic disease. Ex vacuo ventriculomegal y and sulcal enlargement is noted compatible with diffuse volume loss. No mass is seen. There is no m ass effect or midline shift. There is no evidence of acute intraparenchymal hemorrhage. No extra axia l fluid collections are seen. The corpus callosum, pituitary gland, and cerebellar tonsils appear kevin ssly unremarkable. Flow voids of the major intracranial arterial vessels are identified. The imaged portions of the para nasal sinuses, mastoid air cells, and orbits are unremarkable. IMPRESSION: No acute abnormality and in particular no evidence of acute infarct. ACT 112: Negative or not required by law. Electronically signed by: Jorge Tierney M.D. 11/08/2023 4:10 PM
[2023-11-08] MEDS: INSULIN ASPART PER UNIT CHARGE SC SCH (18:29)
[2023-11-08] MEDS ORDERED: ALBUTEROL HFA 8 GM INHALER INH PRN (18:47)
[2023-11-08] MEDS: CARBIDOPA/LEVODOP 10/100MG TAB PO SCH (20:56)
[2023-11-08] MEDS: APIXABAN 2.5 MG TAB PO SCH (20:56)
[2023-11-09] MEDS: ACETAMINOPHEN 325 MG TAB PO PRN (00:41)
[2023-11-09 07:13] LABS: Basophils # (auto) 0.03 K/uL (0.00-0.20); Basophils % (auto) 0.5 %; Eosinophils # (auto) 0.45 K/uL (0.00-0.50); Eosinophils % (auto) 7.3 %; Hematocrit (blood only) 31.5 % (37.0-47.0); Hemoglobin 10.1 g/dl (12.0-16.0); Immature Granulocytes # (auto) 0.02 K/uL (0.01-0.20); Immature Granulocytes % (auto) 0.3 %; Lymphocytes # (auto) 1.59 K/uL (1.20-3.40); Lymphocytes % (auto) 25.7 %; Mean Corpuscular Hemoglobin 33.7 pg (25.0-34.0); Mean Corpuscular Hgb Conc 32.1 g/dL (32.0-36.0); Mean Platelet Volume 10.3 fL (9.4-12.4); Monocytes # (auto) 0.51 K/uL (0.11-0.59); Monocytes % (auto) 8.2 %; Neutrophils # (auto) 3.59 K/uL (1.40-6.50); Platelet Count 320 K/uL (130-400); RDW Coefficient of Variation 14.7 % (11.5-14.5); RDW Standard Deviation 57.4 fL (36.4-46.3); White Blood Count 6.19 K/ul (4.8-10.8)
[2023-11-09 07:30] LABS: Albumin Globulin Ratio 1.1 (0.9-2); Albumin Level 3.2 gm/dl (3.4-5.0); Bilirubin,Total 0.3 mg/dl (0.2-1.0); Creatinine Clr Calc Pharmacy 27.4 ml/min; Est GFR (African American) 61.6 ml/min; Est GFR (Non-African American) 53.2 ml/min; Globulin 2.9 gm/dl (2.5-4.0); Magnesium 1.6 mg/dl (1.7-2.4); Potassium 4.1 mmol/L (3.5-5.1); Total Protein 6.1 gm/dl (6.0-8.3)
[2023-11-09 07:41] LABS: Prothrombin Time 11.2 Seconds (9.0-12.0)
[2023-11-09] MEDS: ATORVASTATIN 40 MG TAB PO SCH (09:09)
[2023-11-09] MEDS: LEVOTHYROXINE SODIUM 88 MCG TABLET PO SCH (09:09)
[2023-11-09] MEDS: FAMOTIDINE 20 MG TAB PO SCH (09:09)
[2023-11-09] MEDS: DULoxetine HCL 30 MG CAP PO SCH (09:09)
--- OUTSIDE RECORDS SUMMARY | 2023-11-09 12:35 | External Medical Summary ---
Author Name Unknown Address Unknown Organization K09:[facility] [place] [address] Laboratory Report Ordering Provider Test Date Status LANDEN LUDWIG 10/30/2023 06:49:02 Final Observation Date Value Abnormality Reference (Units ) Status WBC, Total 10/30/2023 06:49:02 9.83 4.00-10.8 0 (K/uL) Final RBC 10/30/2023 06:49:02 3.09 3.85-5.15 (M/uL) Final Hemoglobin 10/30/2023 06:49:02 10.4 Below low normal 12 .0-15.3 (g/dL) Final HCT 10/30/2023 06:49:02 34.0 Below low normal 36. 0-45.2 (%) Final MCV 10/30/2023 06:49:02 110.0 81.5-97.5 (fL) Final MCH 10/30/2023 06:49:02 33.7 27.0-34.0 (pg) Final MCHC 10/30/2023 06:49:02 30.6 32.0-36.0 (g/dL) Final RDW 10/30/2023 06:49:02 16.1 11.5-15.5 (%) Final Platelets 10/30/2023 06:49:02 374 140-400 (K /uL) Final MPV 10/30/2023 06:49:02 10.7 6.6-11.1 ( fL) Final Performing Location [facility] [place] [address]
--- OUTSIDE RECORDS SUMMARY | 2023-11-09 12:35 | External Medical Summary ---
Author Name Unknown Address Unknown Organization K09:[facility] [place] [address] Laboratory Report Ordering Provider Test Date Status LANDEN LUDWIG 10/23/2023 06:50:14 Final Observation Date Value Abnormality Reference (Units ) Status WBC, Total 10/23/2023 06:50:14 6.93 4.00-10.8 0 (K/uL) Final RBC 10/23/2023 06:50:14 3.17 3.85-5.15 (M/uL) Final Hemoglobin 10/23/2023 06:50:14 10.7 Below low normal 12 .0-15.3 (g/dL) Final HCT 10/23/2023 06:50:14 35.6 Below low normal 36. 0-45.2 (%) Final MCV 10/23/2023 06:50:14 112.3 81.5-97.5 (fL) Final MCH 10/23/2023 06:50:14 33.8 27.0-34.0 (pg) Final MCHC 10/23/2023 06:50:14 30.1 32.0-36.0 (g/dL) Final RDW 10/23/2023 06:50:14 15.7 11.5-15.5 (%) Final Platelets 10/23/2023 06:50:14 406 Above high normal 14 0-400 (K/uL) Final MPV 10/23/2023 06:50:14 10.3 6.6-11.1 ( fL) Final Performing Location [facility] [place] [address]
--- OUTSIDE RECORDS SUMMARY | 2023-11-09 12:35 | External Medical Summary ---
Author Name Unknown Address Unknown Organization K01:[facility] [place] [address] [place] [address] Laboratory Report Ordering Provider Test Date Status MARIANO SHEIKH 10/30/2023 06:49:02 Final Observation Date Value Abnormality Reference (Units ) Status Vitamin B12 10/30/2023 06:49:02 6844 271-5268 (pg/mL) Final Performing Location [facility] - [address] [place] [address]
--- OUTSIDE RECORDS SUMMARY | 2023-11-09 12:35 | External Medical Summary ---
Author Name Unknown Address Unknown Organization K01:[facility] - [address] [place] [address] Laboratory Report Ordering Provider Test Date Status SHAMIR AGUIAR 10/30/2023 06:49:02 Final Observation Date Value Abnormality Reference (Units ) Status Folic Acid 10/30/2023 06:49:02 6.5 >4.5 (ng/ mL) Final Performing Location [facility] - [address] [place] [address]
--- OUTSIDE RECORDS SUMMARY | 2023-11-09 12:35 | External Medical Summary ---
Author Name Unknown Address Unknown Organization K09:[facility] [place] [address] Laboratory Report Ordering Provider Test Date Status LANDEN LUDWIG 10/23/2023 06:55:25 Final Observation Date Value Abnormality Reference (Units ) Status BUN 10/23/2023 06:55:25 12 6-20 (mg/dL) Final Creatinine 10/23/2023 06:55:25 1.4 Above high normal 0.5-1.0 (mg/dL) Final Glomerular filtration rate/1.73 sq M.predicted [Volume Rate/Area] in Serum, Plasma or Blood by Creatinine-based formula (CKD-EPI) 10/23/2023 06:55:25 40 Below low normal >=60 (mL/min) Final eGFR is calculated based on the CKD-EPI 2020 equation Sodium 10/23/2023 06:55:25 138 135-146 (m mol/L) Final Potassium 10/23/2023 06:55:25 4.7 3.5-5.1 (m mol/L) Final Cl 10/23/2023 06:55:25 99 98-107 (mm ol/L) Final CO2 10/23/2023 06:55:25 32 22-32 (mmo l/L) Final Anion gap 10/23/2023 06:55:25 7 7-15 (mmol /L) Final Glucose 10/23/2023 06:55:25 87 70-120 (mg /dL) Final Calcium 10/23/2023 06:55:25 8.8 8.4-10.2 ( mg/dL) Final Performing Location [facility] [place] [address]
--- OUTSIDE RECORDS SUMMARY | 2023-11-09 12:35 | External Medical Summary ---
Author Name Unknown Address Unknown Organization K09:[facility] [place] [address] Laboratory Report Ordering Provider Test Date Status LANDEN LUDWIG 10/30/2023 06:49:02 Final Observation Date Value Abnormality Reference (Units ) Status BUN 10/30/2023 06:49:02 29 Above high normal 6-20 (mg/dL) Final Creatinine 10/30/2023 06:49:02 1.2 Above high normal 0.5-1.0 (mg/dL) Final Glomerular filtration rate/1.73 sq M.predicted [Volume Rate/Area] in Serum, Plasma or Blood by Creatinine-based formula (CKD-EPI) 10/30/2023 06:49:02 46 Below low normal >=60 (mL/min) Final eGFR is calculated based on the CKD-EPI 2020 equation Sodium 10/30/2023 06:49:02 139 135-146 (m mol/L) Final Potassium 10/30/2023 06:49:02 4.5 3.5-5.1 (m mol/L) Final Cl 10/30/2023 06:49:02 97 Below low normal 98- 107 (mmol/L) Final CO2 10/30/2023 06:49:02 29 22-32 (mmo l/L) Final Anion gap 10/30/2023 06:49:02 13 7-15 (mmol /L) Final Glucose 10/30/2023 06:49:02 107 70-120 (mg /dL) Final Calcium 10/30/2023 06:49:02 9.4 8.4-10.2 ( mg/dL) Final Performing Location [facility] [place] [address]
--- OUTSIDE RECORDS SUMMARY | 2023-11-09 12:35 | External Medical Summary ---
Author Name Unknown Address Unknown Organization K01:[facility] [place] - [address] [facility] [address] Laboratory Report Ordering Provider Test Date Status MARIANO SHEIKH 10/30/2023 06:49:02 Final Observation Date Value Abnormality Reference (Units ) Status TSH 10/30/2023 06:49:02 1.36 0.27-4.20 (uIU/mL) Final Performing Location [facility] [place] - [address] [place] [address]
[2023-11-09] MEDS: MAGNESIUM SULFATE / D5W 1 GM/100 ML BAG IV ONE (13:40)
--- NOTE | 2023-11-09 16:27 | Hospitalist Progress Note ---
Date of Service November 09, 2023 Assessment & Plan (1) Altered mental status: Plan: - Admitted to med/tele on pulse oximetry - Has been experiencing intermittent episodes of visual and auditory hallucinations since being discharged home from [facility] on 11/05/23 - No focal neuro findings on exam, CT head/brain negative, MRI brain negative - Suspect that the patient's hallucinations are due to multiple recent hospitalizations/rehab stays and ongoing oxycodone use ?acute delirium ?underlying dementia - She did suffer a subarachnoid hemorrhage after her fall last month; mental status changes could be associate with this as well - Diagnosed with silent aspiration and aspiration pneumonia last admission, still noted to have the left basilar predominant consolidation on CXR today >No leukocytosis, procal negative - Continue holding narcotics - treat pain with Tylenol only - Q4h neuro checks, these can be d/c'd - PT/OT eval - Obtain Vitamin B12 level, cbc reviewed, macrocytosis noted (2) DVT (deep venous thrombosis): Plan: History of such - Continue Eliquis (3) Type 2 diabetes mellitus without complication: Plan: -Monitor BSG ACHS, goal is 110-160 -Not on outpatient regimen -Start CF 50 and CR of 20 ACHS for now -Adjust regimen as needed (4) Closed T2 fracture: Plan: Subacute/stable - Continue Cervical collar - Fall precautions/aspiration precautions - Pain control with tylenol and lidocaine patch for now - Try to avoid narcotics (5) Parkinsons disease: Plan: Chronic/stable - Continue Carbidopa-Levodopa (6) Hypoxia: Plan: Subacute/stable - Has been on 3L of O2 since last admission for aspiration pneumonia - Known to have silent aspiration - Incentive spirometry, flutter therapy -PRN O2 to keep SpO2 at or above 92%, weaned down to 1L O2 Plan Patient is doing well, no obvious infectious or metabolic cause for encephalopathy. Discussed with daughter, await PT/OT evals. May require short stay in SNF as family works on increasing her services at home. Anticipate will not be able to be discharged until Saturday. Family is waiting to hear about increasing her services but will not have any answer until Saturday at the earliest. Downgrade to med/surg. Above plan of care has been d/w Dr. Thomas. Admission and Anticipated Discharge Date Admission Date: November 08, 2023 Geronimo Pappas was seen and examined this morning on rounds. She was accompanied by her daughter. Elyse was brought in yesterday due to increased confusion/AMS. Per her daughter, she has been making statements that are very unusual, including asking about her , mentioning about a stairway, and having visual hallucinations regarding seeing children. Currently, Elyse is awake and alert, she is oriented x3. She endorses a headache but no other complaints. Review of Systems 2 Review of Systems: All systems reviewed and are unremarkable except as noted in HPI and below. Denies fever, chills, fatigue, nasal congestion, sore throat, cough, chest pain, shortness of breath, palpitations, orthopnea, PND, abdominal pain, n/v/d, constipation, dysuria, hematuria, frequency, back pain, joint pain or swelling, easy bruising or bleeding, skin lesions or rashes. Physical Exam 2 Physical Exam: GENERAL: 78 yo wd/wn elderly F. A&O x3. NAD. LUNGS: CTAB w/o W/R/R. CARDIOVASCULAR: RRR ABDOMEN: Soft, non-tender and non-distended. BS normoactive x 4 quad. EXTREMITIES: No edema. Non-tender. Peripheral pulses +2/4. NEUROLOGIC: No focal neurological deficits. CN II-XII grossly intact. PSYCHIATRIC: Cooperative. Appropriate mood and affect. SKIN: Warm, dry, intact. No rashes or lesions. Results & Data Results & Data Vital Signs (Past 12 Hours) Vital Signs Temp Pulse Pulse Resp BP Pulse Ox O2 Del Method 11/09/23 15:48 36.9 C 82 16 117/72 99 Nasal Cannula 11/09/23 15:27 89 11/09/23 11:02 37.0 C 80 16 104/64 93 Nasal Cannula 11/09/23 08:13 36.7 C 80 16 119/69 98 Nasal Cannula O2 Flow Rate 11/09/23 15:48 2 11/09/23 15:27 11/09/23 11:02 2 11/09/23 08:13 1.5 Laboratory Results 11/09/23 06:40 11/09/23 06:40 PG Care Time/CCT Total # of Minutes Spent Total Time Spent with Patient: Total time spent is greater than 50% in coordination of care (as documented) at patient's floor/unit and/or counseling patient: Coding Level of Care Code 50115 SUB INP/OBS CARE Diagnoses Altered mental status R41.82 Acute deep vein thrombosis (DVT) of right peroneal vein I82.451 Affected thrombotic vein of extremity: peroneal Chronicity: acute DVT location: lower extremity Laterality: right Type 2 diabetes mellitus without complication, without long-term current use of insulin E11.9 Diabetes mellitus care home insulin use: without care home use Closed fracture of second thoracic vertebra with routine healing, unspecified fracture morphology, subsequent encounter S22.029D Encounter type: subsequent encounter Fracture healing: with routine healing Fracture morphology: unspecified fracture morphology Parkinson's disease, unspecified whether dyskinesia present, unspecified whether manifestations fluctuate G20.A1 Dyskinesia presence: unspecified whether dyskinesia Fluctuating manifestations: unspecified whether manifestations fluctuate Hypoxia R09.02 (2) DVT (deep venous thrombosis) Affected thrombotic vein of extremity: peroneal Chronicity: acute DVT location: lower extremity Laterality: right Qualified Code(s): I82.451 - Acute embolism and thrombosis of right peroneal vein (3) Type 2 diabetes mellitus without complication 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: without care home use Qualified Code(s): E11.9 - Type 2 diabetes mellitus without complications (4) Closed T2 fracture Encounter type: subsequent encounter Fracture healing: with routine healing Fracture morphology: unspecified fracture morphology Qualified Code(s): S 22.029D - Unspecified fracture of second thoracic vertebra, subsequent encounter for fracture with routine healing (5) Parkinsons disease Dyskinesia presence: unspecified whether dyskinesia Fluctuating manifestations: unspecified whether manifestations fluctuate Qualified Code(s): G20.A1 - Parkinson's disease without dyskinesia, without mention of fluctuations
[2023-11-10 07:35] LABS: Basophils # (auto) 0.03 K/uL (0.00-0.20); Basophils % (auto) 0.4 %; Hemoglobin 10.6 g/dl (12.0-16.0); Immature Granulocytes # (auto) 0.04 K/uL (0.01-0.20); Immature Granulocytes % (auto) 0.5 %; Lymphocytes # (auto) 1.68 K/uL (1.20-3.40); Lymphocytes % (auto) 22.6 %; Mean Corpuscular Hemoglobin 33.7 pg (25.0-34.0); Mean Corpuscular Hgb Conc 32.1 g/dL (32.0-36.0); Mean Corpuscular Volume 104.8 fL (80.0-100.0); Mean Platelet Volume 10.1 fL (9.4-12.4); Monocytes % (auto) 6.7 %; Neutrophils # (auto) 4.88 K/uL (1.40-6.50); Neutrophils % (auto) 65.8 %; Platelet Count 347 K/uL (130-400); RDW Standard Deviation 58.4 fL (36.4-46.3); Red Blood Count 3.15 M/uL (4.20-5.40); White Blood Count 7.43 K/ul (4.8-10.8)
[2023-11-10 07:41] LABS: Albumin Level 3.4 gm/dl (3.4-5.0); Bilirubin,Total 0.3 mg/dl (0.2-1.0); Calcium 8.9 mg/dl (8.6-10.3); Magnesium 1.9 mg/dl (1.7-2.4); Potassium 4.2 mmol/L (3.5-5.1)
[2023-11-10 07:47] LABS: Albumin Globulin Ratio 1.1 (0.9-2); BUN Creatinine Ratio 14.6 (10-20); Creatinine Clr Calc Pharmacy 26.6 ml/min; Est GFR (African American) 59.5 ml/min; Est GFR (Non-African American) 51.3 ml/min; Globulin 3.1 gm/dl (2.5-4.0); Total Protein 6.5 gm/dl (6.0-8.3)
--- NOTE | 2023-11-10 08:06 | Hospitalist Progress Note ---
Date of Service November 10, 2023 Assessment & Plan (1) Altered mental status: Plan: - Admitted to med/tele on pulse oximetry - Has been experiencing intermittent episodes of visual and auditory hallucinations since being discharged home from [facility] on 11/05/23 - No focal neuro findings on exam, CT head/brain negative, MRI brain negative - Suspect that the patient's hallucinations are due to multiple recent hospitalizations/rehab stays and ongoing oxycodone use ?acute delirium ?underlying dementia - She did suffer a subarachnoid hemorrhage after her fall last month; mental status changes could be associate with this as well - Diagnosed with silent aspiration and aspiration pneumonia last admission, still noted to have the left basilar predominant consolidation on CXR today >No leukocytosis, procal negative - Continue holding narcotics - treat pain with Tylenol only - PT/OT eval needed for disposition - Vitamin B12 level normal limits - CBC reviewed, macrocytosis noted. Outpatient workup (2) DVT (deep venous thrombosis): Plan: History of such - Continue Eliquis (3) Type 2 diabetes mellitus without complication: Plan: -Monitor BSG ACHS, goal is 110-160 -Not on outpatient regimen -Start CF 50 and CR of 20 ACHS for now -Adjust regimen as needed (4) Closed T2 fracture: Plan: Subacute/stable - Continue Cervical collar - Fall precautions/aspiration precautions - Pain control with tylenol and lidocaine patch for now - Try to avoid narcotics (5) Parkinsons disease: Plan: Chronic/stable - Continue Carbidopa-Levodopa (6) Hypoxia: Plan: Subacute/stable - Has been on 3L of O2 since last admission for aspiration pneumonia - Persistent left basilar consolidation - Known to have silent aspiration - Incentive spirometry, flutter therapy -PRN O2 to keep SpO2 at or above 92%, weaned down to 1L O2 (7) Aspiration into respiratory tract: Plan: - Video swallow study completed 09/2023 and revealed no evidence of aspiration - Patient was seen by speech-language pathology at that time - Recommended minced and moist diet IDDSI 4, thin liquid IDDSI 0 - CXR this admission with left basilar consolidation - Continue aspiration precautions - Alternate solids and liquids. Single bites/small sips/slow rate. Head of bed 30 degrees at all times. Upright with meals +30 minutes Plan Patient is doing well, no obvious infectious or metabolic cause for encephalopathy. Previously discussed with daughter, await PT/OT evals. May require short stay in SNF as family works on increasing her services at home. Anticipate will not be able to be discharged until Saturday. Family is waiting to hear about increasing her services but will not have any answer until Saturday at the earliest. Downgrade to med/surg. Above plan of care has been d/w Dr. Thomas. Admission and Anticipated Discharge Date Admission Date: November 08, 2023 Subjective Attending: Dr. Thomas Elyse was brought in 11/09/2023 due to increased confusion/AMS. Per her daughter, she has been making statements that are very unusual, including asking about her , mentioning about a stairway, and having visual hallucinations regarding seeing children. Currently, Elyse is awake and alert, she is oriented x3. She endorses a headache but no other complaints. PT/OT consults have been requested. Occupational Therapy recommends short-term rehab stay to increase activity tolerance and safety to perform ADLs. Patient not yet evaluated by physical therapy Patient seen at bedside. She has no specific complaints. She seems to be oriented to person place and time today. C-collar is in place and patient is tolerating well. No fever or chills. She denies aspiration Patient is aware that she worked with occupational therapy this morning. Still waiting for physical therapy evaluation. Review of Systems 2 Review of Systems: A total of 10 systems was reviewed and is negative other than as listed in the HPI Physical Exam 2 Physical Exam: GENERAL : No acute distress EYES: No icterus, gaze conjugate NOSE: No evidence of epistaxis MOUTH: No lesions or candidiasis NECK: C-collar is in place and secure LUNGS: CTA B/L, no wheezes, rales or rhonchi HEART: Regular, rate controlled ABDOMEN: Soft, NT, ND, BS Present EXTREMITIES: No LE edema, pedal pulses intact NEURO: A&OX3 Results & Data Results & Data Vital Signs (Past 12 Hours) Vital Signs Temp Pulse Resp BP Pulse Ox O2 Del Method O2 Flow Rate 11/10/23 07:55 Nasal Cannula 1 11/10/23 07:31 36.6 C 88 16 108/63 92 Nasal Cannula 1 11/09/23 22:30 Nasal Cannula 1 11/09/23 22:30 36.5 C 83 16 118/73 94 Nasal Cannula 1 Laboratory Results 11/10/23 07:21 11/10/23 07:21 Diagnostic Findings Chest X-Ray 11/08/23 09:31 XR chest 1V portable HISTORY: 78 years-old Female cough, ams acute cough COMPARISON: Chest radiograph 10/16/2023, chest CT 10/19/2023 TECHNIQUE: AP view of the chest FINDINGS: Cardiac silhouette is enlarged. Emphysema with persistent reticulonodular opacities. Persistent left basilar predominant consolidation. No pneumothorax, large pleural effusion or overt pulmonary edema. Degenerative changes of the shoulders and spine. IMPRESSION: 1. Cardiomegaly without overt pulmonary edema. 2. Emphysema with unchanged reticulonodular opacities and left basilar predominant consolidation. ACT 112: Negative or not required by law. The above report was generated using voice recognition software. It may contain grammatical, syntax or spelling errors. Electronically signed by: Josh Kimbrough M.D. 11/08/2023 10:[address] 11/08/23 09:31 CT head/brain wo con CLINICAL HISTORY: ams Technique: Contiguous axial CT images of the head were acquired from the base of the skull to the vertex without intravenous contrast administration. Images were viewed in brain, subdural and bone windows. Automated dose lowering techniques and/or adjustment according to patient size were utilized for this exam. Comparison: Comparison is made to CT head 10/12/2023 Findings: The ventricles, basal cisterns, and cerebral sulci are normal. There is no acute intracranial hemorrhage or evidence of acute territorial infarction. Neither mass effect, shift of the midline structures, nor abnormal extra-axial fluid collections are shown. Hypodensity in the left insula is unchanged. Imaged portions of the paranasal sinuses and mastoid air cells are clear. The orbits appear normal. There are no acute fractures of the calvaria or scalp swelling. Impression: No acute intracranial hemorrhage, no evidence of acute territorial infarction or other acute intracranial disease process. ACT 112: Negative or not required by law. Electronically signed by: Jorge Tierney M.D. 11/08/2023 11:58 AM L Brain MRI 11/08/23 13:26 MR brain wo con CLINICAL HISTORY: AMS, hx of CVA's TECHNIQUE: Multiplanar and multisequence MR images of the brain were obtained without intravenous contrast. Comparison: Comparison is made to MRI brain 07/22/2023 FINDINGS: No abnormal restricted diffusion is identified. Foci of T2 and FLAIR hyperintensity are noted in the paraventricular areas consistent with chronic small vessel ischemic disease. Ex vacuo ventriculomegaly and sulcal enlargement is noted compatible with diffuse volume loss. No mass is seen. There is no mass effect or midline shift. There is no evidence of acute intraparenchymal hemorrhage. No extra axial fluid collections are seen. The corpus callosum, pituitary gland, and cerebellar tonsils appear grossly unremarkable. Flow voids of the major intracranial arterial vessels are identified. The imaged portions of the paranasal sinuses, mastoid air cells, and orbits are unremarkable. IMPRESSION: No acute abnormality and in particular no evidence of acute infarct. ACT 112: Negative or not required by law. Electronically signed by: Jorge Tierney M.D. 11/08/2023 4:10 PM FL video swallow 10/17/2023 HISTORY: assess for aspiration TECHNIQUE: Video fluoroscopic evaluation of swallowing was performed in the AP and lateral projections by the speech pathology staff. The patient is fed nectar-thick and thin liquid barium, and barium pudding. FLUOROSCOPY TIME: 1 minute and 19 seconds. Ka,r: 6.4 mGy COMPARISON STUDY: None. FINDINGS: There is normal hyoid excursion and epiglottic deflection. No aspiration identified. Mild to moderate vallecular residue seen throughout the examination. There are a few episodes of penetration. No aspiration identified. IMPRESSION: 1. No aspiration identified. 2. Please see the speech pathologist report for detailed findings and recommendations. ACT 112: Negative or not required by law. Electronically signed by: Kade Osborne M.D. 10/17/2023 12:28 PM PG Care Time/CCT Total # of Minutes Spent Total Time Spent with Patient: Total time spent is greater than 50% in coordination of care (as documented) at patient's floor/unit and/or counseling patient: Coding Level of Care Code 18278 SUB INP/OBS CARE 2/35MIN Diagnoses Altered mental status R41.82 Acute deep vein thrombosis (DVT) of right peroneal vein I82.451 Affected thrombotic vein of extremity: peroneal Chronicity: acute DVT location: lower extremity Laterality: right Type 2 diabetes mellitus without complication, without long-term current use of insulin E11.9 Diabetes mellitus retirement insulin use: without retirement use Closed fracture of second thoracic vertebra with routine healing, unspecified fracture morphology, subsequent encounter S22.029D Encounter type: subsequent encounter Fracture healing: with routine healing Fracture morphology: unspecified fracture morphology Parkinson's disease, unspecified whether dyskinesia present, unspecified whether manifestations fluctuate G20.A1 Dyskinesia presence: unspecified whether dyskinesia Fluctuating manifestations: unspecified whether manifestations fluctuate Hypoxia R09.02 Aspiration into respiratory tract T17.908A Time Spent (min) 30 (2) DVT (deep venous thrombosis) Affected thrombotic vein of extremity: peroneal Chronicity: acute DVT location: lower extremity Laterality: right Qualified Code(s): I82.451 - Acute embolism and thrombosis of right peroneal vein (3) Type 2 diabetes mellitus without complication 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: without retirement use Qualified Code(s): E11.9 - Type 2 diabetes mellitus without complications (4) Closed T2 fracture Encounter type: subsequent encounter Fracture healing: with routine healing Fracture morphology: unspecified fracture morphology Qualified Code(s): S 22.029D - Unspecified fracture of second thoracic vertebra, subsequent encounter for fracture with routine healing (5) Parkinsons disease Dyskinesia presence: unspecified whether dyskinesia Fluctuating manifestations: unspecified whether manifestations fluctuate Qualified Code(s): G20.A1 - Parkinson's disease without dyskinesia, without mention of fluctuations
[2023-11-10 08:19] LABS: Prothrombin Time 10.9 Seconds (9.0-12.0)
[2023-11-11 06:27] LABS: Basophils # (auto) 0.03 K/uL (0.00-0.20); Basophils % (auto) 0.4 %; Eosinophils # (auto) 0.43 K/uL (0.00-0.50); Eosinophils % (auto) 6.4 %; Hematocrit (blood only) 34.3 % (37.0-47.0); Hemoglobin 10.9 g/dl (12.0-16.0); Immature Granulocytes # (auto) 0.03 K/uL (0.01-0.20); Immature Granulocytes % (auto) 0.4 %; Lymphocytes # (auto) 2.19 K/uL (1.20-3.40); Lymphocytes % (auto) 32.3 %; Mean Corpuscular Hemoglobin 33.4 pg (25.0-34.0); Mean Corpuscular Hgb Conc 31.8 g/dL (32.0-36.0); Mean Corpuscular Volume 105.2 fL (80.0-100.0); Mean Platelet Volume 10.3 fL (9.4-12.4); Monocytes # (auto) 0.66 K/uL (0.11-0.59); Monocytes % (auto) 9.7 %; Neutrophils # (auto) 3.43 K/uL (1.40-6.50); Neutrophils % (auto) 50.8 %; Platelet Count 354 K/uL (130-400); RDW Coefficient of Variation 15.1 % (11.5-14.5); RDW Standard Deviation 58.7 fL (36.4-46.3); Red Blood Count 3.26 M/uL (4.20-5.40); White Blood Count 6.77 K/ul (4.8-10.8)
[2023-11-11 06:44] LABS: Albumin Globulin Ratio 1.1 (0.9-2); Albumin Level 3.2 gm/dl (3.4-5.0); Bilirubin,Total 0.3 mg/dl (0.2-1.0); Calcium 9.1 mg/dl (8.6-10.3); Creatinine Clr Calc Pharmacy 24.3 ml/min; Est GFR (African American) 53.2 ml/min; Est GFR (Non-African American) 45.9 ml/min; Magnesium 1.8 mg/dl (1.7-2.4); Potassium 4.6 mmol/L (3.5-5.1); Total Protein 6.2 gm/dl (6.0-8.3)
[2023-11-11 06:51] LABS: Prothrombin Time 10.9 Seconds (9.0-12.0)
[2023-11-11 15:27] LABS: Appearance Urine Cloudy (Clear); Bacteria Urine Automated 4+ (None Seen); Bilirubin Urine Negative (Negative); Blood Urine Negative (Negative); Cast Urine Automated 0-2 /lpf (0-2); Color Urine Yellow; Epithelial Cell Urine Auto 0-2 /hpf (0-2); Glucose Urine UA Negative (Negative); Ketones Urine Negative (Negative); Leukocyte Esterase Urine 2+ (Negative); Nitrite Urine Positive (Negative); Protein Urine Negative (Negative); RBC Urine Automated 0-2 /hpf (0-2); Specific Gravity Urine 1.014 (1.000-1.030); Urobilinogen Urine Negative (Negative); WBC Urine Automated >50 /hpf (0-5)
[2023-11-11] MEDS: AMOXICILLIN/CLAVULANATE 500 MG TAB PO ONE (18:08)
--- NOTE | 2023-11-11 18:36 | Hospitalist Progress Note ---
Date of Service November 11, 2023 Assessment & Plan (1) Altered mental status: Plan: - Has been experiencing intermittent episodes of visual and auditory hallucinations since being discharged home from [facility] on 11/05/23 - No focal neuro findings on exam, CT head/brain negative, MRI brain negative - Suspect that the patient's hallucinations are due to multiple recent hospitalizations/rehab stays and ongoing oxycodone use ?acute delirium ?underlying dementia - She did suffer a subarachnoid hemorrhage after her fall last month; mental status changes could be associate with this as well - Diagnosed with silent aspiration and aspiration pneumonia last admission, st ill noted to have the left basilar predominant consolidation on CXR today >No leukocytosis, procal negative - Continue holding narcotics - treat pain with Tylenol only - CBC reviewed, macrocytosis noted. Outpatient workup B12 level WNL Folate level for AM - PT/OT eval needed for disposition - recommend 24 hour supervision - case management following Will add AM vitamin B1 level (2) Flank pain: Plan: Reported 11/10 UA with signs of infection, pt with hx of ESBL Augmentin started based on prior sensitives, follow cultures (3) DVT (deep venous thrombosis): Plan: History of such - Continue Eliquis (4) Type 2 diabetes mellitus without complication: Plan: -Monitor BSG ACHS, goal is 110-160 -Not on outpatient regimen -Start CF 50 and CR of 20 ACHS for now A1c ordered for AM (5) Closed T2 fracture: Plan: Subacute/stable - Continue Cervical collar - Fall precautions/aspiration precautions - Pain control with tylenol, add lidocaine patch of needed - Try to avoid narcotics (6) Parkinsons disease: Plan: Chronic/stable - Continue Carbidopa-Levodopa (7) Hypoxia: Plan: Subacute/stable - Has been on 2L of O2 since last admission for aspiration pneumonia - Persistent left basilar consolidation - Known to have silent aspiration - Incentive spirometry, flutter therapy -PRN O2 to keep SpO2 at or above 92%, weaned down to 1L O2 (8) Aspiration into respiratory tract: Plan: - Video swallow study completed 09/2023 and revealed no evidence of aspiration - Patient was seen by speech-language pathology at that time - Recommended minced and moist diet IDDSI 4, thin liquid IDDSI 0 *advance as tolerated after removal of collar - Continue aspiration precautions - Alternate solids and liquids. Single bites/small sips/slow rate. Head of bed 30 degrees at all times. Upright with meals +30 minutes Family requested coremaker bench involvement - wanting diet altered, LIQUID CHLORINE OPERATOR aware and agreeable. Trial easy to chew Plan Dispo: continued inpatient stay, awaiting placement/caregivers Admission and Anticipated Discharge Date Admission Date: November 08, 2023 Subjective Patient seen sitting in the chair - Happy with "real food" from advancing her diet. Does report flank pain - that says she gets frequently but this just started this morning moving bowels unsure if her daughter has been able to find care givers Review of Systems Review of Systems: All systems reviewed & are unremarkable except as noted in Subjective Physical Exam Physical Exam: General: NAD, VS as above Resp: normal respiratory effort, lungs clear to auscultation CV: RRR, no murmur, Abd: soft, non tender - no suprapubic pain, no hepatosplenomegaly Extremities: Moves all extremities, no edema Results & Data Results & Data Vital Signs (Past 12 Hours) Vital Signs Temp Pulse Resp BP Pulse Ox O2 Del Method O2 Flow Rate 11/11/23 15:18 100 11/11/23 14:59 36.8 C 102 H 16 125/78 11/11/23 07:36 Nasal Cannula 2 11/11/23 07:26 36.4 C L 82 18 114/65 100 Nasal Cannula 2 Laboratory Results UA reviewed PG Care Time/CCT Total # of Minutes Spent Total Time Spent with Patient: Total time spent is greater than 50% in coordination of care (as documented) at patient's floor/unit and/or counseling patient: Coding Level of Care Code 15509 SUB INP/OBS CARE 3/50MIN Diagnoses Altered mental status R41.82 Flank pain R10.9 Acute deep vein thrombosis (DVT) of right peroneal vein I82.451 DVT location: lower extremity Affected thrombotic vein of extremity: peroneal Chronicity: acute Laterality: right Type 2 diabetes mellitus without complication, without long-term current use of insulin E11.9 Diabetes mellitus intermediate insulin use: without buttermilk drier operator use Closed fracture of second thoracic vertebra with routine healing, unspecified fracture morphology, subsequent encounter S22.136D Encounter type: subsequent encounter Fracture morphology: unspecified fracture morphology Fracture healing: with routine healing Parkinson's disease, unspecified whether dyskinesia present, unspecified whether manifestations fluctuate G20.A1 Dyskinesia presence: unspecified whether dyskinesia Fluctuating manifestations: unspecified whether manifestations fluctuate Hypoxia R09.02 Aspiration into respiratory tract T17.908A (3) DVT (deep venous thrombosis) DVT location: lower extremity Affected thrombotic vein of extremity: peroneal Chronicity: acute Laterality: right Qualified Code(s): I82.451 - Acute embolism and thrombosis of right peroneal vein (4) Type 2 diabetes mellitus without complication Diabetes mellitus buttermilk drier operator insulin use: without intermediate use Qualified Code(s): E11.9 - Type 2 diabetes mellitus without complications (5) Closed T2 fracture Encounter type: subsequent encounter Fracture morphology: unspecified fracture morphology Fracture healing: with routine healing Qualified Code(s): S22.029D - Unspecified fracture of second thoracic vertebra, subsequent encounter for fracture with routine healing (6) Parkinsons disease Dyskinesia presence: unspecified whether dyskinesia Fluctuating manifestations: unspecified whether manifestations fluctuate Qualified Code(s): G20.A1 - Parkinson's disease without dyskinesia, without mention of fluctuations
[2023-11-12 06:49] LABS: BUN Creatinine Ratio 18.8 (10-20); Calcium 9.1 mg/dl (8.6-10.3); Creatinine Clr Calc Pharmacy 20.6 ml/min; Est GFR (African American) 43.6 ml/min; Est GFR (Non-African American) 37.7 ml/min; Potassium 4.5 mmol/L (3.5-5.1)
[2023-11-12 07:21] LABS: Estimated Average Glucose 111 mg/dl; Hemoglobin A1C 5.5 % (4.5-5.6)
[2023-11-12] MEDS: AMOXICILLIN/CLAVULANATE 500 MG TAB PO SCH (08:56)
[2023-11-12] MEDS: FOLIC ACID 1 MG TAB PO SCH (09:32)
--- NOTE | 2023-11-12 16:12 | Hospitalist Progress Note ---
Date of Service November 12, 2023 Assessment & Plan (1) Altered mental status: Plan: - Has been experiencing intermittent episodes of visual and auditory hallucinations since being discharged home from [facility] on 11/05/23 - No focal neuro findings on exam, CT head/brain negative, MRI brain negative - Suspect that the patient's hallucinations are due to multiple recent hospitalizations/rehab stays and ongoing oxycodone use ?acute delirium ?underlying dementia - She did suffer a subarachnoid hemorrhage after her fall last month; mental status changes could be associate with this as well - Diagnosed with silent aspiration and aspiration pneumonia last admission, st ill noted to have the left basilar predominant consolidation on CXR today >No leukocytosis, procal negative - Continue holding narcotics - treat pain with Tylenol only - CBC reviewed, macrocytosis noted. Outpatient workup B12 level WNL Folate level low - PO supplementation started - Vitamin B1 level pending - PT/OT eval needed for disposition - recommend 24 hour supervision - case management following, referalls placed to [facility] and [facility] (2) Flank pain: Plan: Reported 11/10 UA with signs of infection, pt with hx of ESBL Augmentin started based on prior sensitives, follow cultures (3) DVT (deep venous thrombosis): Plan: History of such - Continue Eliquis (4) Type 2 diabetes mellitus without complication: Plan: HgbA1c 5.5, patient has not required much insulin - stopped SSI - check BS qAM Diet controlled outpatient (5) Closed T2 fracture: Plan: Subacute/stable - Continue Cervical collar - Fall precautions/aspiration precautions - Pain control with tylenol, add lidocaine patch of needed - Try to avoid narcotics (6) Parkinsons disease: Plan: Chronic/stable - Continue Carbidopa-Levodopa (7) Hypoxia: Plan: Subacute/stable - Has been on 2L of O2 since last admission for aspiration pneumonia - Persistent left basilar consolidation - Known to have silent aspiration - Incentive spirometry, flutter therapy -PRN O2 to keep SpO2 at or above 92%, weaned down to 1L O2 maintains stats at rest, but drops with ambulation. (8) Aspiration into respiratory tract: Plan: - Video swallow study completed 09/2023 and revealed no evidence of aspiration - Patient was seen by speech-language pathology at that time - Recommended minced and moist diet IDDSI 4, thin liquid IDDSI 0 *advance as tolerated after removal of collar - Continue aspiration precautions - Alternate solids and liquids. Single bites/small sips/slow rate. Head of bed 30 degrees at all times. Upright with meals +30 minutes Family requested fruit grading supervisor involvement - wanting diet altered, MILKING SYSTEM INSTALLER aware and agreeable. Trial easy to chew Plan Dispo: continued inpatient stay, awaiting placement/caregivers DVT proh: Andres [place] updated by phone Admission and Anticipated Discharge Date Admission Date: November 08, 2023 Subjective Patient seen sitting up in the chair states her flank pain has improved, informed she has a UTI - no further symptoms at this point has not heard if her daughter has been able to find care givers Review of Systems Review of Systems: All systems reviewed & are unremarkable except as noted in Subjective Physical Exam Physical Exam: General: NAD, VS as above Resp: normal respiratory effort, lungs clear to auscultation CV: RRR, no murmur, Abd: soft, non tender - no suprapubic pain, no hepatosplenomegaly Extremities: Moves all extremities, no edema Results & Data Results & Data Vital Signs (Past 12 Hours) Vital Signs Temp Resp BP BP Pulse Ox O2 Del Method O2 Flow Rate 11/12/23 07:25 Nasal Cannula 2 11/12/23 07:16 36.6 C 18 96/67 L 103/62 96 Room Air 2 Laboratory Results bmp reviewed PG Care Time/CCT Total # of Minutes Spent Total Time Spent with Patient: Total time spent is greater than 50% in coordination of care (as documented) at patient's floor/unit and/or counseling patient: Coding Level of Care Code 69930 SUB INP/OBS CARE 3/50MIN Diagnoses Altered mental status R41.82 Flank pain R10.9 Acute deep vein thrombosis (DVT) of right peroneal vein I82.451 DVT location: lower extremity Affected thrombotic vein of extremity: peroneal Chronicity: acute Laterality: right Type 2 diabetes mellitus without complication, without long-term current use of insulin E11.9 Diabetes mellitus tank terminal gauger insulin use: without detention use Closed fracture of second thoracic vertebra with routine healing, unspecified fracture morphology, subsequent encounter S22.029D Encounter type: subsequent encounter Fracture morphology: unspecified fracture morphology Fracture healing: with routine healing Parkinson's disease, unspecified whether dyskinesia present, unspecified whether manifestations fluctuate G20.A1 Dyskinesia presence: unspecified whether dyskinesia Fluctuating manifestations: unspecified whether manifestations fluctuate Hypoxia R09.02 Aspiration into respiratory tract T17.908A (3) DVT (deep venous thrombosis) DVT location: lower extremity Affected thrombotic vein of extremity: peroneal Chronicity: acute Laterality: right Qualified Code(s): I82.451 - Acute embolism and thrombosis of right peroneal vein (4) Type 2 diabetes mellitus without complication Diabetes mellitus tank terminal gauger insulin use: without detention use Qualified Code(s): E11.9 - Type 2 diabetes mellitus without complications (5) Closed T2 fracture Encounter type: subsequent encounter Fracture morphology: unspecified fracture morphology Fracture healing: with routine healing Qualified Code(s): S22.029D - Unspecified fracture of second thoracic vertebra, subsequent encounter for fracture with routine healing (6) Parkinsons disease Dyskinesia presence: unspecified whether dyskinesia Fluctuating manifes tations: unspecified whether manifestations fluctuate Qualified Code(s): G20.A1 - Parkinson's disease without dyskinesia, without mention of fluctuations
[2023-11-13 07:17] LABS: BUN Creatinine Ratio 18.2 (10-20); Creatinine Clr Calc Pharmacy 20.8 ml/min; Est GFR (African American) 44.1 ml/min; Potassium 4.8 mmol/L (3.5-5.1)
--- NOTE | 2023-11-13 10:38 | Hospitalist Progress Note ---
Date of Service November 13, 2023 Assessment & Plan (1) Altered mental status: Plan: encephalopathy due to medication - Has been experiencing intermittent episodes of visual and auditory hallucinations since being discharged home from [facility] on 11/05/23 - No focal neuro findings on exam, CT head/brain negative, MRI brain negative - Suspect that the patient's hallucinations are due to multiple recent hospitalizations/rehab stays and ongoing oxycodone use ?acute delirium ?underlying dementia - She did suffer a subarachnoid hemorrhage after her fall last month; mental status changes could be associate with this as well - Diagnosed with silent aspiration and aspiration pneumonia last admission, still noted to have the left basilar predominant consolidation on CXR >No leukocytosis, procal negative - Continue holding narcotics - treat pain with Tylenol only - CBC reviewed, macrocytosis noted. Outpatient workup B12 level WNL Folate level low - PO supplementation started - Vitamin B1 level pending - PT/OT eval needed for disposition - recommend 24 hour supervision - case management following, planning for [facility] (2) UTI (urinary tract infection): Plan: Urinary tract infection symptoms started 11/10 with low back pain and suprapubic tenderness UA with signs of infection, UC Ecoli ESBL was given Augmentin pending cultures discussed with pharmacy, will give fosfomycin x1 (3) DVT (deep venous thrombosis): Plan: History of such with acute RLE peroneal DVT in 09/2023 - Continue Eliquis - of note she is only on 2.5mg BID which would not be the appropriate dosing, however has had issues in the past with bleeding. Will reach out to dr. Alcala She is on Eliquis 2.5 Mg twice daily for presumed occult atrial fibrillation given previous of embolic stroke (4) Type 2 diabetes mellitus without complication: Plan: HgbA1c 5.5, patient has not required much insulin - stopped SSI - check BS qAM Diet controlled outpatient (5) Closed T2 fracture: Plan: Subacute/stable - Continue Cervical collar until follow up neurosurgery - Fall precautions/aspiration precautions - Pain control with tylenol, add lidocaine patch of needed - Try to avoid narcotics (6) Parkinsons disease: Plan: Chronic/stable - Continue Carbidopa-Levodopa (7) Hypoxia: Plan: Subacute/stable - Has been on 2L of O2 since last admission for aspiration pneumonia - Persistent left basilar consolidation - Known to have silent aspiration - Incentive spirometry, flutter therapy -PRN O2 to keep SpO2 at or above 92%, weaned down to 1L O2 (8) Aspiration into respiratory tract: Plan: - Video swallow study completed 09/2023 and revealed no evidence of aspiration - Patient was seen by speech-language pathology at that time - Recommended minced and moist diet IDDSI 4, thin liquid IDDSI 0 *advance as tolerated after removal of collar - Continue aspiration precautions - Alternate solids and liquids. Single bites/small sips/slow rate. Head of bed 30 degrees at all times. Upright with meals +30 minutes Family requested director records management involvement - wanting diet altered, ENGINEERING OPERATOR aware and agreeable. Trial easy to chew Plan Dispo: continued inpatient stay, awaiting placement, pending insurance auth DVT proh: Eliquis Admission and Anticipated Discharge Date Admission Date: November 08, 2023 Supervising Physician Co-Signing Physician Notes PA Supervision Note: I did not personally see or examine the patient today, but I verified all machado points of NATI Ramirez's assessment and plan with the following exceptions/additions: None Subjective Patient seen in room 305 resting in bed, states she went to the bathroom with therapy and when she got back they did not put her oxygen back on - 85-88% on room air. was placed on 1L O2 and quickly came up to 92-95% Reports pain in shoulder from c-collar. states she has neurosurgery appointment next week. UTI symptoms continue to improve Review of Systems Review of Systems: All systems reviewed & are unremarkable except as noted in Subjective Physical Exam Physical Exam: General: NAD, VS as above Resp: normal respiratory effort, lungs clear to auscultation. 85% on room air, recovered quickly on 1L CV: RRR, no murmur, Abd: soft, non tender - no suprapubic pain, no hepatosplenomegaly Extremities: Moves all extremities, no edema Results & Data Results & Data Vital Signs (Past 12 Hours) Vital Signs Temp Pulse Resp BP Pulse Ox O2 Del Method O2 Flow Rate 11/13/23 07:50 Nasal Cannula 2 11/13/23 07:31 36.6 C 94 H 16 104/62 97 Nasal Cannula 1 Laboratory Results BMP reviewed PG Care Time/CCT Total # of Minutes Spent Total Time Spent with Patient: Total time spent is greater than 50% in coordination of care (as documented) at patient's floor/unit and/or counseling patient: Coding Level of Care Code 51946 SUB INP/OBS CARE 50MIN Diagnoses Altered mental status R41.82 UTI (urinary tract infection) N30.01 Hematuria presence: with hematuria Urinary tract infection type: acute cystitis Acute deep vein thrombosis (DVT) of right peroneal vein I82.451 Affected thrombotic vein of extremity: peroneal Chronicity: acute DVT location: lower extremity Laterality: right Type 2 diabetes mellitus without complication, without long-term current use of insulin E11.9 Diabetes mellitus longterm insulin use: without longterm use Closed fracture of second thoracic vertebra with routine healing, unspecified fracture morphology, subsequent encounter S22.029D Encounter type: subsequent encounter Fracture healing: with routine healing Fracture morphology: unspecified fracture morphology Parkinson's disease, unspecified whether dyskinesia present, unspecified whether manifestations fluctuate G20.A1 Dyskinesia presence: unspecified whether dyskinesia Fluctuating manifestations: unspecified whether manifestations fluctuate Hypoxia R09.02 Aspiration into respiratory tract T17.908A (2) UTI (urinary tract infection) Hematuria presence: with hematuria Urinary tract infection type: acute cystitis Qualified Code(s): N30.01 - Acute cystitis with hematuria (3) DVT (deep venous thrombosis) Affected thrombotic vein of extremity: peroneal Chronicity: acute DVT location: lower extremity Laterality: right Qualified Code(s): I82.451 - Acute embolism and thrombosis of right peroneal vein (4) Type 2 diabetes mellitus without complication Diabetes mellitus supervisor intermediates insulin use: without longterm use Qualified Code(s): E11.9 - Type 2 diabetes mellitus without complications (5) Closed T2 fracture Encounter type: subsequent encounter Fracture healing: with routine healing Fracture morphology: unspecified fracture morphology Qualified Code(s): S22.029D - Unspecified fracture of second thoracic vertebra, subsequent encounter for fracture with routine healing (6) Parkinsons disease Dyskinesia presence: unspecified whether dyskinesia Fluctuating manifestations: unspecified whether manifestations fluctuate Qualified Code(s): G20.A1 - Parkinson's disease without dyskinesia, without mention of fluctuations
[2023-11-13] MEDS: FOSFOMYCIN TROMETHAMINE 3 GM PACKET PO ONE (13:55)
[2023-11-13] MEDS: MELATONIN 3 MG TAB PO PRN (20:51)
[2023-11-14 07:02] LABS: Creatinine Clr Calc Pharmacy 22.5 ml/min; Est GFR (African American) 48.5 ml/min; Est GFR (Non-African American) 41.8 ml/min
--- NOTE | 2023-11-14 16:35 | Hospitalist Progress Note ---
Date of Service November 14, 2023 Assessment & Plan (1) Altered mental status: Plan: encephalopathy due to medication - Has been experiencing intermittent episodes of visual and auditory hallucinations since being discharged home from [facility] on 11/05/23 - No focal neuro findings on exam, CT head/brain negative, MRI brain negative - Suspect that the patient's hallucinations are due to multiple recent hospitalizations/rehab stays and ongoing oxycodone use ?acute delirium ?underlying dementia - She did suffer a subarachnoid hemorrhage after her fall last month; mental status changes could be associate with this as well - Diagnosed with silent aspiration and aspiration pneumonia last admission, still noted to have the left basilar predominant consolidation on CXR >No leukocytosis, procal negative - Continue holding narcotics - treat pain with Tylenol only - CBC reviewed, macrocytosis noted. Outpatient workup B12 level WNL Folate level low - PO supplementation started - Vitamin B1 level pending -will start empiric thiamine replacement while awaiting result - PT/OT eval needed for disposition - recommend 24 hour supervision - case management following, planning for [facility] - insurance denied rehab, left message for peer to peer (2) UTI (urinary tract infection): Plan: Urinary tract infection symptoms started 11/10 with low back pain and suprapubic tenderness UA with signs of infection, UC Ecoli ESBL was given Augmentin pending cultures discussed with pharmacy, received fosfomycin x1 (3) DVT (deep venous thrombosis): Plan: History of such with acute RLE peroneal DVT in 09/2023 - Continue Eliquis - of note she is only on 2.5mg BID which would not be the appropriate dosing, spoke with Dr. Alcala (pt does not follow with [facility] any more) - overall patient is a poor candidate for anticoagulation, but if there is an acute clot it should be treated. Will continue on the 2.5mg dose since she is tolerating this (4) Type 2 diabetes mellitus without complication: Plan: HgbA1c 5.5, patient has not required much insulin - stopped SSI - check BS qAM Diet controlled outpatient (5) Closed T2 fracture: Plan: Subacute/stable - Continue Cervical collar until follow up neurosurgery - Fall precautions/aspiration precautions - Pain control with tylenol, add lidocaine patch of needed - avoid narcotics (6) Parkinsons disease: Plan: Chronic/stable - Continue Carbidopa-Levodopa (7) Hypoxia: Plan: Subacute/stable - Has been on 2L of O2 since last admission for aspiration pneumonia - Persistent left basilar consolidation - Known to have silent aspiration - Incentive spirometry, flutter therapy -PRN O2 to keep SpO2 at or above 92%, weaned down to 1L O2 (8) Aspiration into respiratory tract: Plan: - Video swallow study completed 09/2023 and revealed no evidence of aspiration - Patient was seen by speech-language pathology at that time - Recommended minced and moist diet IDDSI 4, thin liquid IDDSI 0 *advance as tolerated after removal of collar - Continue aspiration precautions - Alternate solids and liquids. Single bites/small sips/slow rate. Head of bed 30 degrees at all times. Upright with meals +30 minutes Family requested unindentured apprentice involvement - wanting diet altered, ENVIRONMENTAL AIR SPECIALIST aware and agreeable. Trial easy to chew Plan Dispo: continued inpatient stay, awaiting return call for peer to peer DVT proh: Andres Admission and Anticipated Discharge Date Admission Date: November 08, 2023 Supervising Physician Co-Signing Physician Notes PA Supervision Note: I did not personally see or examine the patient today, but I verified all machado points of NATI Ramirez's assessment and plan with the following exceptions/additions: None Subjective patient seen sitting in bed. No acute complaints. Reports feeling lazy, encouraged up to chair for meals. Review of Systems Review of Systems: All systems reviewed & are unremarkable except as noted in Subjective Physical Exam Physical Exam: General: NAD, VS as above Resp: normal respiratory effort, lungs Diminished in bases, on 1L. encourage use of incentive spirometer CV: RRR, no murmur, Abd: soft, non tender - no suprapubic pain, no hepatosplenomegaly Extremities: Moves all extremities, no edema Results & Data Results & Data Vital Signs (Past 12 Hours) Vital Signs Temp Pulse Resp BP Pulse Ox O2 Del Method O2 Flow Rate 11/14/23 15:25 36.6 C 93 H 16 95/58 L 98 Nasal Cannula 1 11/14/23 13:12 96 Nasal Cannula 1 11/14/23 13:11 85 L Room Air 11/14/23 07:25 36.6 C 82 16 98/60 L 94 Nasal Cannula 1 PG Care Time/CCT Total # of Minutes Spent Total Time Spent with Patient: Total time spent is greater than 50% in coordination of care (as documented) at patient's floor/unit and/or counseling patient: Coding Level of Care Code 11484 SUB INP/OBS CARE Diagnoses Altered mental status R41.82 UTI (urinary tract infection) N30.01 Hematuria presence: with hematuria Urinary tract infection type: acute cystitis Acute deep vein thrombosis (DVT) of right peroneal vein I82.451 Affected thrombotic vein of extremity: peroneal Chronicity: acute DVT location: lower extremity Laterality: right Type 2 diabetes mellitus without complication, without long-term current use of insulin E11.9 Diabetes mellitus usp insulin use: without machine specialist use Closed fracture of second thoracic vertebra with routine healing, unspecified fracture morphology, subsequent encounter S22.029D Encounter type: subsequent encounter Fracture healing: with routine healing Fracture morphology: unspecified fracture morphology Parkinson's disease, unspecified whether dyskinesia present, unspecified whether manifestations fluctuate G20.A1 Dyskinesia presence: unspecified whether dyskinesia Fluctuating manifestations: unspecified whether manifestations fluctuate Hypoxia R09.02 Aspiration into respiratory tract T17.908A (2) UTI (urinary tract infection) Hematuria presence: with hematuria Urinary tract infection type: acute cystitis Qualified Code(s): N30.01 - Acute cystitis with hematuria (3) DVT (deep venous thrombosis) Affected thrombotic vein of extremity: peroneal Chronicity: acute DVT location: lower extremity Laterality: right Qualified Code(s): I82.451 - Acute embolism and thrombosis of right peroneal vein (4) Type 2 diabetes mellitus without complication Diabetes mellitus machine specialist insulin use: without machine specialist use Qualified Code(s): E11.9 - Type 2 diabetes mellitus without complications (5) Closed T2 fracture Encounter type: subsequent encounter Fracture healing: with routine healing Fracture morphology: unspecified fracture morphology Qualified Code(s): S22.029D - Unspecified fracture of second thoracic vertebra, subsequent en counter for fracture with routine healing (6) Parkinsons disease Dyskinesia presence: unspecified whether dyskinesia Fluctuating manifestations: unspecified whether manifestations fluctuate Qualified Code(s): G20.A1 - Parkinson's disease without dyskinesia, without mention of fluctuations
[2023-11-14] MEDS: POLYETHYLENE (MIRALAX) 17 GM PACK PO PRN (20:35)
[2023-11-15 07:17] LABS: Creatinine Clr Calc Pharmacy 19.6 ml/min; Est GFR (Non-African American) 35.4 ml/min
[2023-11-15] MEDS: THIAMINE HCL 100 MG TAB PO SCH (08:02)
--- NOTE | 2023-11-15 12:24 | Discharge Summary ---
Discharge Summary Date of Service November 15, 2023 Notes For Next Care Provider admitted with altered mental status, head imaging was negative, no known infectious causethought to be from narcotic pain medication she was discharged from [facility] with. Altered mental status has resolved, PT OT recommending 24- hour supervision low folate levels, started on folic acid supplementation Vitamin B1 level pendingstarted on empiric p.o. therapy remains on 1 to 2 L nasal cannula at restconsider repeat noncontrast chest CT- 2+ weeks if still having O2 needs. Medication Changes From Visit folic acid and vitamin B1 Admission HPI Per Admitting Provider Elyse is a 78 year old female with a PMH significant for recent subarachnoid hemorrhage and T1 fracture after sustaining a ground level fall with [facility], treatment was conservative at [facility] and she was discharged to [facility], recent admission to [facility] from 10/15-10/21 for Metabolic encephalopathy and hypoxia due to aspiration pneumonia, previous DVT's (on Eliquis), previous embolic CVA's, hypothyroidism, Parkinsons's disease, CKD who presented to the [facility] ED on 11/08/23 via EMS due to concerns of AMS when her home health aid arrived this AM. The patient has reportedly been on supplemental O2 since her last admission to [facility] last month. She remained stable on 2L NC and was otherwise stable. Labs including CBC, CMP, TSH, and BNP were unremarkable compared to recent labs from 10/22/23. UA was noted to have trace ketones and leukocyte esterase but was otherwise WNL. Full respiratory biofire was in process. CT of the head/brain wo con was read as negative for acute findings. Chest xray was read as "1. Cardiomegaly without overt pulmonary edema. 2. Emphysema with unchanged reticulonodular opacities and left basilar predominant consolidation.". The patient was given 1L NSS and 1gm IV tylenol on arrival. Family at bedside confirmed that the patient was still acting confused compared to previous baseline. At the time of the exam the patient was sitting in bed in no acute distress with multiple family members bedside. Family explains that the patient was discharged home from [facility] on 11/05/23. Since arriving home she has home health during the day but they leave by 9pm and the patient is alone overnight. Family states this was not the initial expectation on discharge. Since being home the patient has had intermittent episodes of confusion and visual hallucinations. This am she told them that she and saw the steps to heaven with multiple people in her bedroom that were not actually there. The patient confirms this occurred. She has not been eating/drinking well since discharge home. Family explains that the patient was discharge from [facility] with a total of 10, 10 mg Oxycodone tabs which they were unaware of. They state that 7/10 tabs were in the bottle as of this am. The patient denies recent fever, chills, chest pain, increased SOB from baseline, abd pain, nausea, vomiting, dysuria, hematuria, melena, LE swelling. Family confirms that the patient is a DNR/DNI and her daughter, Almita, is her POA. Please refer to Dr. Perry's attestation for any changes to the treatment plan Principal Dx & Hospital Course #1 = Principal Diagnosis (1) Altered mental status: encephalopathy due to medication - Has been experiencing intermittent episodes of visual and auditory hallucinations since being discharged home from [facility] on 11/05/23 - No focal neuro findings on exam, CT head/brain negative, MRI brain negative - Suspect that the patient's hallucinations are due to multiple recent hospitalizations/rehab stays and ongoing oxycodone use ?acute delirium ?underlying dementia - She did suffer a subarachnoid hemorrhage after her fall last month; mental status changes could be associate with this as well - Diagnosed with silent aspiration and aspiration pneumonia last admission, still noted to have the left basilar predominant consolidation on CXR >No leukocytosis, procal negative - Continue holding narcotics - treat pain with Tylenol only - CBC reviewed, macrocytosis noted. Outpatient workup B12 level WNL Folate level low - PO supplementation started - Vitamin B1 level pending -will start empiric thiamine replacement while awaiting result - PT/OT eval needed for disposition - recommend 24 hour supervision - discharge to [facility] today (2) UTI (urinary tract infection): Urinary tract infection symptoms started 11/10 with low back pain and suprapubic tenderness UA with signs of infection, UC Ecoli ESBL was given Augmentin pending cultures discussed with pharmacy, received fosfomycin x1 resolved (3) DVT (deep venous thrombosis): History of such with acute RLE peroneal DVT in 09/2023 - Continue Eliquis - of note she is only on 2.5mg BID which would not be the appropriate dosing, spoke with Dr. Alcala (pt does not follow with [facility] any more) - overall patient is a poor candidate for anticoagulation, but if there is an acute clot it should be treated. Will continue on the 2.5mg dose since she is tolerating this (4) Type 2 diabetes mellitus without complication: HgbA1c 5.5, patient has not required much insulin - stopped SSI - check BS qAM Diet controlled outpatient (5) Closed T2 fracture: Subacute/stable - Continue Cervical collar until follow up neurosurgery - Fall precautions/aspiration precautions - Pain control with tylenol, add lidocaine patch of needed - avoid narcotics (6) Parkinsons disease: Chronic/stable - Continue Carbidopa-Levodopa (7) Hypoxia: Subacute/stable - Has been on 2L of O2 since last admission for aspiration pneumonia - Persistent left basilar consolidation --> Known to have silent aspiration - remains on 1 to 2 L nasal cannula at restconsider repeat noncontrast chest CT-2+ weeks if still having O2 needs. - Incentive spirometry, flutter therapy -PRN O2 to keep SpO2 at or above 92%, weaned down to 1L O2 (8) Aspiration into respiratory tract: - Video swallow study completed 09/2023 and revealed no evidence of aspiration - Patient was seen by speech-language pathology at that time - Recommended minced and moist diet IDDSI 4, thin liquid IDDSI 0 *advance as tolerated after removal of collar - Continue aspiration precautions - Alternate solids and liquids. Single bites/small sips/slow rate. Head of bed 30 degrees at all times. Upright with meals +30 minutes Family requested electric solderer involvement - wanting diet altered, BOND MANAGER aware and agreeable. Trial easy to chew Plan Dispo: discharge to [facility] today daughter updated by phone Discharge Exam General: NAD, VS as above HEENT - C collar in place Resp: normal respiratory effort, lungs Diminished in bases, on 1L. encourage use of incentive spirometer CV: RRR, no murmur, Abd: soft, non tender - no suprapubic pain, no hepatosplenomegaly Extremities: Moves all extremities, no edema Updated Medication List Medication Instructions Recorded Confirmed Type albuterol sulfate 90 mcg/actuation 2 inh inhalation DAILY PRN 11/08/23 11/08/23 History aerosol inhaler Shortness Of Breath Or Wheezing apixaban 2.5 mg tablet (Eliquis) 2.5 mg PO Q12 11/08/23 11/08/23 History atorvastatin 80 mg tablet 80 mg PO DAILY 11/08/23 11/08/23 History carbidopa 10 mg-levodopa 100 mg 2 tab PO QID 11/08/23 11/08/23 History tablet duloxetine 30 mg capsule,delayed 30 mg PO DAILY 11/08/23 11/08/23 History release famotidine 20 mg tablet 20 mg PO DAILY 11/08/23 11/08/23 History fluticasone propionate 50 2 spray intranasal DAILY PRN 11/08/23 11/08/23 History mcg/actuation nasal .allergy symptoms spray,suspension (Flonase Allergy Relief) latanoprost 0.005 % eye drops 1 drp OPB HS 11/08/23 11/08/23 History levothyroxine 88 mcg tablet 88 mcg PO QAM 11/08/23 11/08/23 History acetaminophen 325 mg tablet 650 mg (2 x 325 mg) PO Q6 PRN 11/15/23 11/08/23 Rx (Tylenol) fever or pain #60 tabs folic acid 1 mg tablet 1 mg PO QAM #30 tabs 11/15/23 Rx thiamine HCl (vitamin B1) 100 mg 200 mg (2 x 100 mg) PO BID #60 tabs 11/15/23 Rx tablet Hospital Stay Data Consultations 11/08/23 12:53 ED Decision to Admit Stat Diagnostic Imagining Performed Chest X-Ray 11/08/23 09:31 XR chest 1V portable HISTORY: 78 years-old Female cough, ams acute cough COMPARISON: Chest radiograph 10/16/2023, chest CT 10/19/2023 TECHNIQUE: AP view of the chest FINDINGS: Cardiac silhouette is enlarged. Emphysema with persistent reticulonodular opacities. Persistent left basilar predominant consolidation. No pneumothorax, large pleural effusion or overt pulmonary edema. Degenerative changes of the shoulders and spine. IMPRESSION: 1. Cardiomegaly without overt pulmonary edema. 2. Emphysema with unchanged reticulonodular opacities and left basilar predominant consolidation. ACT 112: Negative or not required by law. The above report was generated using voice recognition software. It may contain grammatical, syntax or spelling errors. Electronically signed by: Josh Kimbrough M.D. 11/08/2023 10:[address] 11/08/23 09:31 CT head/brain wo con CLINICAL HISTORY: ams Technique: Contiguous axial CT images of the head were acquired from the base of the skull to the vertex without intravenous contrast administration. Images were viewed in brain, subdural and bone windows. Automated dose lowering techniques and/or adjustment according to patient size were utilized for this exam. Comparison: Comparison is made to CT head 10/12/2023 Findings: The ventricles, basal cisterns, and cerebral sulci are normal. There is no acute intracranial hemorrhage or evidence of acute territorial infarction. Neither mass effect, shift of the midline structures, nor abnormal extra-axial fluid c ollections are shown. Hypodensity in the left insula is unchanged. Imaged portions of the paranasal sinuses and mastoid air cells are clear. The orbits appear normal. There are no acute fractures of the calvaria or scalp swelling. Impression: No acute intracranial hemorrhage, no evidence of acute territorial infarction or other acute intracranial disease process. ACT 112: Negative or not required by law. Electronically signed by: Jorge Tierney M.D. 11/08/2023 11:58 AM Brain MRI 11/08/23 13:26 MR brain wo con CLINICAL HISTORY: AMS, hx of CVA's TECHNIQUE: Multiplanar and multisequence MR images of the brain were obtained without intravenous contrast. Comparison: Comparison is made to MRI brain 07/22/2023 FINDINGS: No abnormal restricted diffusion is identified. Foci of T2 and FLAIR hyperintensity are noted in the paraventricular areas consistent with chronic small vessel ischemic disease. Ex vacuo ventriculomegaly and sulcal enlargement is noted compatible with diffuse volume loss. No mass is seen. There is no mass effect or midline shift. There is no evidence of acute intraparenchymal hemorrhage. No extra axial fluid collections are seen. The corpus callosum, pituitary gland, and cerebellar tonsils appear grossly unremarkable. Flow voids of the major intracranial arterial vessels are identified. The imaged portions of the paranasal sinuses, mastoid air cells, and orbits are unremarkable. IMPRESSION: No acute abnormality and in particular no evidence of acute infarct. ACT 112: Negative or not required by law. Electronically signed by: Jorge Tierney M.D. 11/08/2023 4:10 PM Pending Results Patient Have Any Pending Studies at Discharge: Yes ( vitamin B1 level) Discharge Instructions Given to Patient (Per Discharging Provider) Ms. Perez you are hospitalized after altered mental status, thought to be from narcotics. Please do not give the patient any more narcotics. Pain has been well- controlled with as needed Tylenol. C-collar to remain in place until seen by neurosurgery (patient states she has an appointment next week) Continue on oxygen has been fluctuating between 1 to 2 L at rest. Treated for UTI during stay. PT OT recommending 24-hour supervision. Started on folate supplementation started empirically on vitamin B1, level pending diet was advanced to easy to chew, thin liquids. Alternate solids and liquids. Single bite/ small sips/slow rate. Upright for meals Total Time Total Time Spent Total Time Spent (In Minutes): Time spend day of discharge 33 minutes including direct patient care, medication reconciliation, documentation, review of labs and images, and coordination of care. Coding Level of Care Code 39735 INP/OBS DISCH >30 MIN Diagnoses Altered mental status R41.82 UTI (urinary tract infection) N30.01 Hematuria presence: with hematuria Urinary tract infection type: acute cystitis Acute deep vein thrombosis (DVT) of right peroneal vein I82.451 Affected thrombotic vein of extremity: peroneal Chronicity: acute DVT location: lower extremity Laterality: right Type 2 diabetes mellitus without complication, without long-term current use of insulin E11.9 Diabetes mellitus fci insulin use: without fci use Closed fracture of second thoracic vertebra with routine healing, unspecified fracture morphology, subsequent encounter S22.531D Encounter type: subsequent encounter Fracture healing: with routine healing Fracture morphology: unspecified fracture morphology Parkinson's disease, unspecified whether dyskinesia present, unspecified whether manifestations fluctuate G20.A1 Dyskinesia presence: unspecified whether dyskinesia Fluctuating manifestations: unspecified whether manifestations fluctuate Hypoxia R09.02 Aspiration into respiratory tract T17.908A
== END 2023-11-15 15:05 | DRG 92 ==
LOC: ED 09:12 → EDINP 12:57 → SUATTDRO 12:57 → EDINP 14:51 → 2W 21:56 → 3E 11-09 22:12

== ENCOUNTER 2024-02-25 09:44 | Inpatient (IN) ==
--- NOTE | 2024-02-25 10:14 | Emergency Department Note ---
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 Her O2 saturation was recorded at around 70% at home with her at home pulse ox meter. She was feeling short of breath at that time. Oxygen was applied and she felt improved. She wears oxygen from time to time but not all the time. She does have a history of COPD. The patient has noticed some slight increased cough. No chest pain. She has not had fever. She did not yet use her nebulizer machine today. The patient's caregiver spoke to the family doctor's office because of the low O2 saturation, they were referred to the ER. HISTORY OF PRESENT ILLNESS: PMHx/PSHx/Social Hx: See Below PHYSICAL EXAM: GENERAL: Patient is in no acute distress. HEENT: No acute trauma, normocephalic atraumatic, mucous membranes moist, no nasal congestion. NECK: No stridor, no adenopathy, no meningismus, trachea is midline. LUNGS: Scattered crackles at both lower lung rees. Breath sounds are diminished. There is no wheezing or obvious respiratory distress. HEART: 3/6 systolic murmur, regular rate and rhythm. ABDOMEN: Soft, nontender, no peritonitis. EXTREMITIES: No cyanosis, full range of motion of all the joints without pain or difficulty. NEUROLOGIC: Oriented x 3, no acute motor or sensory deficits, no focal weakness. Some extremity tremor noted. SKIN: No jaundice, no diaphoresis. DIFFERENTIAL DIAGNOSIS: Exacerbation of COPD, pneumonia, bronchitis, CHF, LA, anemia, among others. EMERGENCY DEPARTMENT PROCEDURES: MEDICAL DECISION MAKING: There is no leukocytosis. A mild anemia was seen. There was a normal platelet count. No coagulopathy. VBG did not show any acidosis but there was some CO2 retention seen, possibly chronic retention. There was a mild elevation to the creatinine above her baseline consistent with some slight dehydration. Magnesium is low at 1.6. No concerning liver enzyme elevation. ECG showed a sinus rhythm, no obvious acute ischemia. Cardiac enzyme testing x 1 was not consistent with acute cardiac injury. BNP was elevated consistent with potential fluid overload. Chest x-ray suggested some mild CHF versus some chronic lung disease. There was no focal pneumonia. Urinalysis did not show findings of infection. Respiratory bio fire was negative. The patient was given a DuoNeb. She received IV Solu-Medrol. She was given IV magnesium. The patient now requires oxygen. She was hypoxic without O2. She has had increasing shortness of breath. The patient requires a hospital stay. The cause is likely multifactorial. She does appear to have a flare of COPD. There may be a component of fluid overload compounding her situation. The patient is aware of the need for a hospital stay. I did speak with case management, the on-call hospitalist was consulted. Prior/Outside records/notes reviewed: None ECG per my interpretation: Indication was shortness of breath. The ECG shows a normal sinus rhythm with a rate of 97. There is some LVH present. There is some baseline artifact and nonspecific ST change. There is no acute ST elevation, no PVCs. The QTc is 441. Continuous Cardiac Monitoring per my interpretation: An order was placed for continuous cardiac monitoring. The monitor shows a rate of 99 with normal sinus rhythm. Imaging/x-ray results per my interpretation: Chest x-ray shows cardiomegaly with some parenchymal congestion consistent with chronic disease or potentially CHF. There is no focal pneumonia. Film looks similar to previous films. Chronic Medical/Social conditions affecting care: Advanced age, history of COPD. Care/Management discussed with: Case management, the on-call hospitalist. Level of care consideration(s): After review of the information above and other included data: --I believe the patient requires escalation of care to admission DISPOSITION: Admission Past Med/Surg History Problem List (Updated 02/25/24 @ 17:01 by Salo Thrasher MD) COPD exacerbation (Acute) SOB (shortness of breath) (Acute) Hypomagnesemia (Acute) Hypoxia (Acute) Acute diastolic CHF (congestive heart failure) Acute bronchitis with COPD Acute respiratory failure with hypoxia History of lumbar laminectomy for spinal cord decompression Lumbar spinal stenosis Hypothyroidism History of compression fracture of vertebral column (~12/04/18) Thoracic Compression fracture of lumbar spine, non-traumatic (~09/23/23) seeing orthopedics Lumbar radiculopathy Hypoxemia Pulmonary emphysema Stage 1 skin ulcer of sacral region CKD (chronic kidney disease), stage IV Hypomagnesemia (Acute) 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, Mobitz type II Atrial tachycardia (Acute) Peripheral artery disease Prediabetes Iron deficiency anemia Kidney stones (Chronic) Vitamin D deficiency (Acute) Primary hypercoagulable state (Chronic) Osteoporosis (Chronic) History of follicular lymphoma Sensorineural hearing loss (SNHL) of both ears Ataxia Secondary hyperparathyroidism of renal origin Memory loss Medical History Aspiration into respiratory tract Altered mental status Closed T2 fracture (~10/08/23) UTI (urinary tract infection) Parkinsons disease Type 2 diabetes mellitus without complication HTN (hypertension) DVT (deep venous thrombosis) Hyponatremia Megaloblastic anemia Diet-controlled diabetes mellitus Tremor History of ischemic stroke Second degree AV block, Mobitz type I Chronic deep vein thrombosis (DVT) Acute kidney injury Ankle edema, bilateral Arthritis Asymptomatic menopausal state Blood glucose abnormal Cardiomyopathy Cholelithiasis Chronic GERD Chronic fatigue syndrome Chronic laryngitis Chronic pharyngitis Cigarette smoker motivated to quit Cough 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 Deep vein thrombosis of distal lower extremity Depression Dermatitis, eczematoid Diabetes mellitus (11/29/12) Dizziness Dyspnea on exertion Dysuria Gastropathy Hearing loss Hematuria, microscopic Herpes simplex Hoarseness Hyperglycemia Interstitial lung disease Ischemic colitis Laryngitis Lightheadedness Low back pain Muscle spasm NSTEMI (non-ST elevated myocardial infarction) Nasal dryness Nicotine dependence 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 Recurrent UTI Rib pain on right side SNHL (sensorineural hearing loss) Secondary hyperparathyroidism (of renal origin) Shortness of breath Solitary pulmonary nodule Subsequent non-ST elevation (NSTEMI) myocardial infarction Takotsubo syndrome Tendinitis of left rotator cuff Vertigo GERD (gastroesophageal reflux disease) Chronic kidney disease Hypothyroidism (acquired) Pneumonia Constipation GI bleed Chronic deep vein thrombosis of left lower extremity Sinusitis Hematuria Hyperlipidemia Osteopenia (11/29/12) Thyroid disease Surgical History History of tubal ligation History of D&C History of Hx of colonoscopy Family History Mother , age 76 with leukemia Leukemia Hypertension Father , age 86 with heart issues Myocardial infarction Diabetes Other Family history non-contributory Denies family history of Ovarian cancer Prostate cancer Breast cancer Lung cancer Social History Smoking Status: Current some day smoker Tobacco Type: Cigarettes Age Started Using Tobacco: 17; Age Quit Using Tobacco: 73; packs per day: 1; Cigarettes Per Day: Only while driving; Second Hand Exposure: No; Do You Dip or Chew Tobacco: No; Hx Alcohol Use: No Hx Substance Use: No Preferred Language: [place] Communication Ability: Effective Visual Impairment: No Limitations Hearing Ability: Use of Hearing Aid Welt Treater Required: No Beliefs That Will Affect Care: None marital status: Current Living Situation: Alone Current Living Situation Comment: has caregivers current occupational status: retired 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 Safe at Home: Yes Childhood Exposure to Second-Hand Smoke: Yes Diet: regular caffeine: No Dental Care, Regularly: No Physical Activity Frequency: Does not Exercise Seatbelt Use: always Sunscreen Use: No Do you think of yourself as: straight/heterosexual Gender Identity: Female Assistive Devices: Bedside Commode, Cane, Denture - Upper, Denture - Lower, Glasses, Hearing Aid - Bilateral, Oxygen - Continuous and Walker Allergies Allergies Allergy/AdvReac Type Severity Reaction Status Date / Time azithromycin [From Zithromax] Allergy Intermediate HIVES Verified 01/21/24 10:35 nitrofurantoin Allergy Intermediate HIVES,ITCHI Verified 01/21/24 10:35 NG tramadol AdvReac Mild nausea Verified 01/21/24 10:35 Home Meds Home Medications Medication Instructions Recorded Confirmed albuterol sulfate 90 mcg/actuation 2 inh inhalation DAILY PRN 11/08/23 02/25/24 aerosol inhaler Shortness Of Breath Or Wheezing apixaban 2.5 mg tablet (Eliquis) 2.5 mg PO Q12 11/08/23 02/25/24 atorvastatin 80 mg tablet 80 mg PO UD 11/08/23 02/25/24 duloxetine 30 mg capsule,delayed 30 mg PO UD 11/08/23 02/25/24 release fluticasone propionate 50 2 spray intranasal DAILY PRN 11/08/23 02/25/24 mcg/actuation nasal .allergy symptoms spray,suspension (Flonase Allergy Relief) latanoprost 0.005 % eye drops 1 drp OPB UD 11/08/23 02/25/24 levothyroxine 88 mcg tablet 88 mcg PO UD 11/08/23 02/25/24 thiamine HCl (vitamin B1) 100 mg 200 mg PO DAILY 01/06/24 02/25/24 tablet valacyclovir 500 mg tablet 500 mg PO DIRECTED 02/25/24 02/25/24 Previous Rx's Medication Instructions Recorded acetaminophen 325 mg tablet 650 mg (2 x 325 mg) PO Q6 PRN 11/15/23 (Tylenol) fever or pain #60 tabs famotidine 20 mg tablet 20 mg PO DAILY #90 tabs 12/25/23 folic acid 1 mg tablet 1 mg PO QAM #90 tabs 12/25/23 carbidopa 10 mg-levodopa 100 mg 2 tab PO QID 30 days #240 tabs 01/29/24 tablet Results & Data (ED) Vital Signs Vital Signs - 24 hr 02/25/24 09:45 02/25/24 09:45 02/25/24 09:46 Temperature 36.7 C Temperature Source Temporal Artery Scan Pulse Rate 103 H Pulse Rate [Apical] 93 H Pulse Rate from SpO2 Sensor Respiratory Rate 16 22 Respiratory Effort / Characteristics Non-Labored Spontaneous Respiratory Depth Normal Blood Pressure 102/48 L Blood Pressure [Left Arm] 103/66 Blood Pressure Mean 66 Blood Pressure Mean [Left Arm] 78 Blood Pressure Position Sitting Pulse Oximetry 100 93 Oxygen Delivery Method Nasal Cannula Nasal Cannula Nasal Cannula Oxygen Flow Rate 3 3 3 Sepsis Recent Fever Within 48 Hours No Sepsis New/Unexplained Change in Mental Status No Sepsis Action Taken by Nursing No Action Required 02/25/24 10:06 02/25/24 10:13 02/25/24 10:48 Temperature Temperature Source Pulse Rate 93 H 94 H Pulse Rate [Apical] 91 H Pulse Rate from SpO2 Sensor Respiratory Rate 18 Respiratory Effort / Characteristics Respiratory Depth Blood Pressure Blood Pressure [Left Arm] 136/62 Blood Pressure Mean Blood Pressure Mean [Left Arm] 86 Blood Pressure Position Pulse Oximetry 99 100 Oxygen Delivery Method Nasal Cannula Nasal Cannula Oxygen Flow Rate 3 3 Sepsis Recent Fever Within 48 Hours Sepsis New/Unexplained Change in Mental Status Sepsis Action Taken by Nursing 02/25/24 11:12 02/25/24 11:30 02/25/24 12:15 Temperature Temperature Source Pulse Rate 97 H 98 H 97 H Pulse Rate [Apical] Pulse Rate from SpO2 Sensor 97 H 98 H 97 H Respiratory Rate 24 24 26 H Respiratory Effort / Characteristics Respiratory Depth Blood Pressure 132/78 146/62 H 131/63 Blood Pressure [Left Arm] Blood Pressure Mean 96 90 85 Blood Pressure Mean [Left Arm] Blood Pressure Position Pulse Oximetry 99 98 98 Oxygen Delivery Method Oxygen Flow Rate Sepsis Recent Fever Within 48 Hours Sepsis New/Unexplained Change in Mental Status Sepsis Action Taken by Care Home Medications Current Medication List: was personally reviewed by me Laboratory Data Attestation: I reviewed the patient's lab results. 02/25/24 10:27 02/25/24 10:27 Lab Results 02/25/24 02/25/24 Range/Units 10:27 10:29 WBC 8.25 (4.8-10.8) K/ul RBC 3.34 L (4.20-5.40) M/uL Hgb 11.8 L (12.0-16.0) g/dl Hct 37.3 (37.0-47.0) % MCV 111.7 H (80.0-100.0) fL MCH 35.3 H (25.0-34.0) pg MCHC 31.6 L (32.0-36.0) g/dL RDW Std Deviation 68.0 H (36.4-46.3) fL RDW Coeff of Damien 16.4 H (11.5-14.5) % Plt Count 346 (130-400) K/uL MPV 9.7 (9.4-12.4) fL Immature Gran % (Auto) 0.4 % Neut % (Auto) 53.5 % Lymph % (Auto) 32.5 % [place] % (Auto) 8.8 % Eos % (Auto) 4.2 % Baso % (Auto) 0.6 % Neut # (Auto) 4.41 (1.40-6.50) K/uL Lymph # (Auto) 2.68 (1.20-3.40) K/uL [place] # (Auto) 0.73 H (0.11-0.59) K/uL Eos # (Auto) 0.35 (0.00-0.50) K/uL Baso # (Auto) 0.05 (0.00-0.20) K/uL Immature Gran # (Auto) 0.03 (0.01-0.20) K/uL PT 10.4 (9.0-12.0) Seconds INR 1.0 (0.9-1.1) APTT 27 (21-31) Seconds PTT Ratio 1.0 VBG pH 7.34 L (7.36-7.41) VBG pCO2 65 H (38-50) mmHg VBG pO2 23 mmHg VBG HCO3 35 mmol/L VBG O2 Saturation < 60.0 % VBG Base Excess 7.0 mEq/L Sodium 138 (136-145) mmol/L Potassium 3.6 (3.5-5.1) mmol/L Chloride 98 (98-107) mmol/L Carbon Dioxide 33 H (21-32) mmol/L Anion Gap 7 (3-11) BUN 24 H (6-23) mg/dl Creatinine 1.57 H (0.6-1.2) mg/dl Est Cr Clr Drug Dosing Not Reportable Est GFR ( Amer) 35.7 ml/min Est GFR (Non-Af Amer) 30.8 ml/min BUN/Creatinine Ratio 15.3 (10-20) Glucose 120 H (70-99(Fasting)) mg/dl Calcium 9.4 (8.6-10.3) mg/dl Magnesium 1.6 L (1.7-2.4) mg/dl Total Bilirubin 0.3 (0.2-1.0) mg/dl AST 25 (13-39) U/L ALT 5 L (7-52) U/L Alkaline Phosphatase 110 H (34-104) U/L Troponin I High Sens 13.0 (0-14) pg/ml B-Natriuretic Peptide 183 H (0-100) pg/ml Total Protein 7.3 (6.0-8.3) gm/dl Albumin 3.7 (3.4-5.0) gm/dl Globulin 3.6 (2.5-4.0) gm/dl Albumin/Globulin Ratio 1.0 (0.9-2) Adenovirus (PCR) Not Detected (NotDetected) B. pertussis DNA (PCR) Not Detected (NotDetected) B.parapertussis DNA PCR Not Detected (NotDetected) C. pneumoniae DNA (PCR) Not Detected (NotDetected) Coronavirus OC43 (PCR) Not Detected (NotDetected) Coronavirus HKU1 (PCR) Not Detected (NotDetected) Coronavirus 229E (PCR) Not Detected (NotDetected) SARS-CoV-2 (PCR) Not Detected (NotDetected) Coronavirus NL63 (PCR) Not Detected (NotDetected) Human Metapneumovir PCR Not Detected (NotDetected) Influenza Type A (PCR) Not Detected (NotDetected) Influenza Type B (PCR) Not Detected (NotDetected) M. pneumoniae (PCR) Not Detected (NotDetected) Parainfluenza 1 (PCR) Not Detected (NotDetected) Parainfluenza 2 (PCR) Not Detected (NotDetected) Parainfluenza 3 (PCR) Not Detected (NotDetected) Parainfluenza 4 (PCR) Not Detected (NotDetected) RSV (PCR) Not Detected (NotDetected) Entero/Rhino (PCR) Not Detected (NotDetected) Administered Medications Furosemide (Furosemide Inj 20 Mg/2 Ml Vial) 20 mg IV [id number] [facility] Stop: 03/26/24 16:59 Last Admin: 02/25/24 16:42 Dose: 20 mg Documented By: CEF Magnesium Oxide (Magnesium Oxide 400 Mg Tab) 400 mg PO QAM LOREN Stop: 03/26/24 16:04 Last Admin: 02/25/24 16:41 Dose: 400 mg Documented By: CEF Discontinued Medications Albuterol (Albut/Ipratrop 3mg/0.5mg Neb 3 Ml Vial) 3 ml NEB NOW STA; Protocol Stop: 02/25/24 10:07 Last Admin: 02/25/24 10:45 Dose: 3 ml Documented By: BK Magnesium Sulfate/Dextrose (Magnesium Sulfate / D5w) 1 gm in 100 mls @ 100 mls/hr IV NOW STA Stop: 02/25/24 12:24 Last Infusion: 02/25/24 13:14 Dose: Infused Documented By: Admin: 02/25/24 11:58 Dose: 100 mls/hr Documented By: CEF Methylprednisolone (Methylprednisolone 125 Mg/2 Ml Vial) 60 mg IV NOW STA Stop: 02/25/24 12:25 Last Admin: 02/25/24 12:42 Dose: 60 mg Documented By: CEF Potassium Chloride (Potassium Chloride Crtab 20 Meq Tabcr) 20 meq PO NOW STA Stop: 02/25/24 16:06 Last Admin: 02/25/24 16:40 Dose: 20 meq Documented By: CEF Imaging Data Radiologist's Impression: Chest X-Ray 02/25/24 10:06 XR chest 1V portable CLINICAL HISTORY: Dyspnea TECHNIQUE: Single frontal radiograph of the chest was obtained. Comparison: Comparison is made to chest radiograph 11/08/2023 FINDINGS: No lines and tubes are seen. Cardiomegaly is noted. There is prominence and cephalization of the vasculature with Tom B lines seen. No evidence of pleural effusion or pneumothorax. IMPRESSION: Cardiomegaly and moderate pulmonary edema. ACT 112: Negative or not required by law. Electronically signed by: Jorge Tierney M.D. 02/25/2024 10:43 AM Discharge Plan Visit Data Chief Complaint: Shortness of Breath/Dyspnea Stated Complaint: LOW O2 LEVEL, DROPPING INTO 70S OVERNIGHT ED Provider: Salo Thrasher Discharge Problem: Hypoxia, Hypomagnesemia, SOB (shortness of breath), COPD exacerbation Patient Disposition: Admitted As Inpatient Condition: Fair Discharge Instructions Interventions: ED Discharge Assessment Last Done: 02/25/24 16:06
[2024-02-25 10:34] LABS: HCO3 VBG 35 mmol/L; Oxygen Saturation VBG < 60.0 %; PCO2 VBG 65 mmHg (38-50); PO2 VBG 23 mmHg; pH VBG 7.34 (7.36-7.41)
--- NOTE | 2024-02-25 10:44 | XRay Report ---
XR chest 1V portable CLINICAL HISTORY: Dyspnea TECHNIQUE: Single frontal radiograph of the chest was obtained. Comparison: Comparison is made to chest radiograph 11/08/2023 FINDINGS: No lines and tubes are seen. Cardiomegaly is noted. There is prominence and cephalization of the vasc ulature with Tom B lines seen. No evidence of pleural effusion or pneumothorax. IMPRESSION: Cardiomegaly and moderate pulmonary edema. ACT 112: Negative or not required by law. Electronically signed by: Jorge Tierney M.D. 02/25/2024 10:43 AM
[2024-02-25] MEDS: ALBUT/IPRATROP 3MG/0.5MG NEB 3 ML VIAL NEB STA (10:45)
[2024-02-25 10:49] LABS: Basophils # (auto) 0.05 K/uL (0.00-0.20); Basophils % (auto) 0.6 %; Eosinophils # (auto) 0.35 K/uL (0.00-0.50); Eosinophils % (auto) 4.2 %; Hematocrit (blood only) 37.3 % (37.0-47.0); Hemoglobin 11.8 g/dl (12.0-16.0); Immature Granulocytes # (auto) 0.03 K/uL (0.01-0.20); Immature Granulocytes % (auto) 0.4 %; Lymphocytes # (auto) 2.68 K/uL (1.20-3.40); Lymphocytes % (auto) 32.5 %; Mean Corpuscular Hemoglobin 35.3 pg (25.0-34.0); Mean Corpuscular Hgb Conc 31.6 g/dL (32.0-36.0); Mean Corpuscular Volume 111.7 fL (80.0-100.0); Mean Platelet Volume 9.7 fL (9.4-12.4); Monocytes # (auto) 0.73 K/uL (0.11-0.59); Monocytes % (auto) 8.8 %; Neutrophils # (auto) 4.41 K/uL (1.40-6.50); Neutrophils % (auto) 53.5 %; Platelet Count 346 K/uL (130-400); RDW Coefficient of Variation 16.4 % (11.5-14.5); Red Blood Count 3.34 M/uL (4.20-5.40); White Blood Count 8.25 K/ul (4.8-10.8)
[2024-02-25 11:08] LABS: Alanine Aminotransferase 5 U/L (7-52); Albumin Level 3.7 gm/dl (3.4-5.0); Alkaline Phosphatase 110 U/L (34-104); Anion Gap 7 (3-11); Aspartate Aminotransferase 25 U/L (13-39); BUN Creatinine Ratio 15.3 (10-20); Bilirubin,Total 0.3 mg/dl (0.2-1.0); Blood Urea Nitrogen 24 mg/dl (6-23); Calcium 9.4 mg/dl (8.6-10.3); Carbon Dioxide 33 mmol/L (21-32); Chloride 98 mmol/L (98-107); Est GFR (African American) 35.7 ml/min; Est GFR (Non-African American) 30.8 ml/min; Globulin 3.6 gm/dl (2.5-4.0); Glucose 120 mg/dl (70-99(Fasting)); Magnesium 1.6 mg/dl (1.7-2.4); Potassium 3.6 mmol/L (3.5-5.1); Sodium 138 mmol/L (136-145); Total Protein 7.3 gm/dl (6.0-8.3)
[2024-02-25 11:16] LABS: Partial Thromboplastin Time 27 Seconds (21-31); Prothrombin Time 10.4 Seconds (9.0-12.0)
[2024-02-25 11:46] LABS: Adenovirus PCR Not Detected (NotDetected); Bordetella parapertussis PCR Not Detected (NotDetected); Bordetella pertussis PCR Not Detected (NotDetected); Chlamydia pneumoniae PCR Not Detected (NotDetected); Coronavirus 229E PCR Not Detected (NotDetected); Coronavirus CoV-2 (COVID19)PCR Not Detected (NotDetected); Coronavirus HKU1 PCR Not Detected (NotDetected); Coronavirus NL63 PCR Not Detected (NotDetected); Coronavirus OC43PCR Not Detected (NotDetected); Human Metapneumovirus PCR Not Detected (NotDetected); Influenza A PCR Not Detected (NotDetected); Influenza B PCR Not Detected (NotDetected); Mycoplasma pneumoniae PCR Not Detected (NotDetected); Parainfluenza Virus 1 PCR Not Detected (NotDetected); Parainfluenza Virus 2 PCR Not Detected (NotDetected); Parainfluenza Virus 3 PCR Not Detected (NotDetected); Parainfluenza Virus 4 PCR Not Detected (NotDetected); Respiratory Syncytial VirusPCR Not Detected (NotDetected); Rhinovirus/Enterovirus PCR Not Detected (NotDetected)
[2024-02-25] MEDS: MAGNESIUM SULFATE / D5W 1 GM/100 ML BAG IV STA (11:58)
--- NOTE | 2024-02-25 12:20 | History & Physical Report ---
Date of Service February 25, 2024 Assessment & Plan (1) Acute respiratory failure with hypoxia: Plan: Hypoxia,?COPD Exacerbation -With dyspnea and hypoxia No leukocytosis, no focal consolidations to suggest pneumonia Is with diminished air movement and wheezing DDx includes CHF manage as below Due to increased wheezing, cough, sputum production will add albuterol, magnesium replacement, doxycycline, flutter valve, incentive spirometry, and continue 40 mg methylprednisolone daily Did not hyper oxygenate, titrate oxygen to goal 89% (2) Acute bronchitis with COPD: Plan: As noted (3) Acute diastolic CHF (congestive heart failure): Plan: ?New CHFpEF Is not on diuretics at baseline, without prior CHF. 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 Patient has prior admissions with aspiration pneumonias, was seen by POWER PLANT SUPERVISOR who recommended minced and moist IDDSI 4 diet, thin liquid IDD SI 0 with aspiration precautions. Easy to chew. Upright with meals for 30 minutes. Video swallow did not show evidence of aspiration at time of 10/2023 hospitalization -BNP mildly elevated compared to prior, 183 Patient denies weight gain BioFire negative (4) DVT (deep venous thrombosis): Plan: History of DVT Continue Eliquis. This was held around a traumatic SAH, does have a history of stroke DVT. Following stability of several months this was resumed as outpatient and is continued on admission. (5) CKD (chronic kidney disease), stage IV: Plan: CKD 4 Baseline creatinine approximately 11.4 Admitting creatinine 1.57 2/2 hypertension/DM/smoking Plan Chronic stable issues Hypothyroidism: Continue Synthroid Parkinsonism: Continue Sinemet History of secondary AV block: S/p Holter monitor, beta-claudia was held without further issues Megaloblastic anemia: Vitamin supplementation continued, no acute bleeding. Hgb baseline ~9-12, currently 11.9. Trended. - History of ischemic stroke: Right cerebellar stroke 06/2023: Continue statin, dose reduced apixaban History of subarachnoid hemorrhage 09/2023: Transferred to [place] for neurosurgical evaluation. Nonoperative management at that time. Clinically progressed without surgical intervention and was discharged to rehab. Eliquis was held for several months, then resumed fro DVT ppx. DVT prophylaxis: On Eliquis as noted Diet: Heart healthy Disposition: Medical telemetry for CHF CODE STATUS: Full code History of Present Illness Primary Care Provider: DO Elyse Russo is an 78-year-old female past medical history of Mobitz 2 AV block, CKD 4, renal hyperparathyroidism, PAD, compression fractures and intermittent home oxygen as needed with exertion but no continuous oxygen requirement who presents to the ER with hypoxia overnight to SpO2 of 70s by home monitor, and escalation of oxygen needs to 3 L of nasal cannula. Patient denies apnea at rest on triage assessment. Chest x-ray shows cardiomegaly and moderate pulmonary edema. Brandy is seen at the bedside. She reports that she generally feels okay, although has had a minimally productive cough with clear sputum in the last week. She has noted her oxygen levels are much lower than normal, and wears low 70% overnight. She does not normally use all the oxygen all the time, uses it as needed around 2 L. Is currently on 3 L continuous to maintain sats greater than 94%. She has not noticed any leg swelling. She denies orthopnea. No chest pain or chest pressure. She denies fever, chills, sweats. No abdominal pain. No urinary symptoms. She does think she had been wheezing a little bit more than usual with her cough, and the cough is not very productive. Denies salt indiscretion, reports she really does not eat much salt except sometimes a little bit with solid Medical History: Reviewed Medications: Reviewed Surgical History: Reviewed Family history: Reviewed Allergies: Reviewed Social History: Reviewed Code Status: Full Allergies Allergy/AdvReac Type Severity Reaction Status Date / Time azithromycin [From Zithromax] Allergy Intermediate HIVES Verified 01/21/24 10:35 nitrofurantoin Allergy Intermediate HIVES,ITCHI Verified 01/21/24 10:35 NG tramadol AdvReac Mild nausea Verified 01/21/24 10:35 Home Medications Medication Instructions Recorded Confirmed Type albuterol sulfate 90 mcg/actuation 2 inh inhalation DAILY PRN 11/08/23 01/21/24 History aerosol inhaler Shortness Of Breath Or Wheezing apixaban 2.5 mg tablet (Eliquis) 2.5 mg PO Q12 11/08/23 01/21/24 History atorvastatin 80 mg tablet 80 mg PO DAILY 11/08/23 01/21/24 History duloxetine 30 mg capsule,delayed 30 mg PO DAILY 11/08/23 01/21/24 History release fluticasone propionate 50 2 spray intranasal DAILY PRN 11/08/23 01/21/24 History mcg/actuation nasal .allergy symptoms spray,suspension (Flonase Allergy Relief) latanoprost 0.005 % eye drops 1 drp OPB HS 11/08/23 01/21/24 History levothyroxine 88 mcg tablet 88 mcg PO QAM 11/08/23 01/21/24 History acetaminophen 325 mg tablet 650 mg (2 x 325 mg) PO Q6 PRN 11/15/23 01/21/24 Rx (Tylenol) fever or pain #60 tabs famotidine 20 mg tablet 20 mg PO DAILY #90 tabs 12/25/23 01/21/24 Rx folic acid 1 mg tablet 1 mg PO QAM #90 tabs 12/25/23 01/21/24 Rx thiamine HCl (vitamin B1) 100 mg 200 mg PO DAILY 01/06/24 01/21/24 History tablet amoxicillin 875 mg-potassium 1 tab PO BID 1 week #14 tabs 01/21/24 01/21/24 Rx clavulanate 125 mg tablet methylprednisolone 4 mg tablets in See Rx Instructions .Route 01/28/24 Rx a dose pack (Medrol (Sacha)) .COMPLEX #21 ea carbidopa 10 mg-levodopa 100 mg 2 tab PO QID 30 days #240 tabs 01/29/24 Rx tablet Past Med/Surg History Problem List Acute diastolic CHF (congestive heart failure) Acute bronchitis with COPD Acute respiratory failure with hypoxia History of lumbar laminectomy for spinal cord decompression Lumbar spinal stenosis Hypothyroidism History of compression fracture of vertebral column (~12/04/18) Thoracic Compression fracture of lumbar spine, non-traumatic (~09/23/23) seeing orthopedics Lumbar radiculopathy Hypoxemia Pulmonary emphysema Stage 1 skin ulcer of sacral region CKD (chronic kidney disease), stage IV Hypomagnesemia (Acute) 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, Mobitz type II Atrial tachycardia (Acute) Peripheral artery disease Prediabetes Iron deficiency anemia Kidney stones (Chronic) Vitamin D deficiency (Acute) Primary hypercoagulable state (Chronic) Osteoporosis (Chronic) History of follicular lymphoma Sensorineural hearing loss (SNHL) of both ears Ataxia Secondary hyperparathyroidism of renal origin Memory loss Medical History Aspiration into respiratory tract Altered mental status Closed T2 fracture (~10/08/23) UTI (urinary tract infection) Parkinsons disease Type 2 diabetes mellitus without complication HTN (hypertension) DVT (deep venous thrombosis) Hyponatremia Megaloblastic anemia Diet-controlled diabetes mellitus Tremor History of ischemic stroke Second degree AV block, Mobitz type I Chronic deep vein thrombosis (DVT) Acute kidney injury Ankle edema, bilateral Arthritis Asymptomatic menopausal state Blood glucose abnormal Cardiomyopathy Cholelithiasis Chronic GERD Chronic fatigue syndrome Chronic laryngitis Chronic pharyngitis Cigarette smoker motivated to quit Cough 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 Deep vein thrombosis of distal lower extremity Depression Dermatitis, eczematoid Diabetes mellitus (11/29/12) Dizziness Dyspnea on exertion Dysuria Gastropathy Hearing loss Hematuria, microscopic Herpes simplex Hoarseness Hyperglycemia Interstitial lung disease Ischemic colitis Laryngitis Lightheadedness Low back pain Muscle spasm NSTEMI (non-ST elevated myocardial infarction) Nasal dryness Nicotine dependence 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 Recurrent UTI Rib pain on right side SNHL (sensorineural hearing loss) Secondary hyperparathyroidism (of renal origin) Shortness of breath Solitary pulmonary nodule Subsequent non-ST elevation (NSTEMI) myocardial infarction Takotsubo syndrome Tendinitis of left rotator cuff Vertigo GERD (gastroesophageal reflux disease) Chronic kidney disease Hypothyroidism (acquired) Pneumonia Constipation GI bleed Chronic deep vein thrombosis of left lower extremity Sinusitis Hematuria Hyperlipidemia Osteopenia (11/29/12) Thyroid disease Surgical History History of tubal ligation History of D&C History of Hx of colonoscopy Family History Mother , age 76 with leukemia Leukemia Hypertension Father , age 86 with heart issues Myocardial infarction Diabetes Other Family history non-contributory Denies family history of Ovarian cancer Prostate cancer Breast cancer Lung cancer Social History Smoking Status: Current some day smoker Tobacco Type: Cigarettes Age Started Using Tobacco: 17; Age Quit Using Tobacco: 73; packs per day: 1; Cigarettes Per Day: Only while driving; Second Hand Exposure: No; Do You Dip or Chew Tobacco: No; Hx Alcohol Use: No Hx Substance Use: No Preferred Language: Gibraltarian Communication Ability: Effective Visual Impairment: No Limitations Hearing Ability: Use of Hearing Aid Rotary Pump Operator Required: No Beliefs That Will Affect Care: None marital status: Current Living Situation: Alone Current Living Situation Comment: has caregivers current occupational status: retired 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 NAD. Cooperative. HEENT: Atraumatic, normocephalic. Vision/hearing intact. Pulm: +diminsihed, scattered exp wheezes, +bibasilar crackles. Symmetrical chest rise. No increased work of breathing. No respiratory distress. Cardiac: RRR, -mrg. Radial pulses intact and symmetrical. JVD not appreciated Abdominal: Nontender, nondistended, soft. BS present. Ext: warm, dry. NT. Results & Data Results & Data Vital Signs (Past 12 Hours) Vital Signs Temp Pulse Pulse Resp BP BP Pulse Ox 02/25/24 10:48 91 H 18 136/62 100 02/25/24 10:13 94 H 02/25/24 10:06 93 H 99 02/25/24 09:46 36.7 C 103 H 22 102/48 L 93 02/25/24 09:45 93 H 16 103/66 100 02/25/24 09:45 O2 Del Method O2 Flow Rate 02/25/24 10:48 Nasal Cannula 3 02/25/24 10:13 02/25/24 10:06 Nasal Cannula 3 02/25/24 09:46 Nasal Cannula 3 02/25/24 09:45 Nasal Cannula 3 02/25/24 09:45 Nasal Cannula 3 PG Care Time/CCT Total # of Minutes Spent Total Time Spent with Patient: Total time spent is greater than 50% in coordination of care (as documented) at patient's floor/unit and/or counseling patient: Coding Level of Care Code 69777 INT INP/OBS CARE 3/75MIN Diagnoses Acute respiratory failure with hypoxia J96.01 Acute bronchitis with COPD J44.0; J20.9 Acute diastolic CHF (congestive heart failure) I50.31 Acute deep vein thrombosis (DVT) of right peroneal vein I82.451 DVT location: lower extremity Affected thrombotic vein of extremity: peroneal Chronicity: acute Laterality: right CKD (chronic kidney disease), stage IV N18.4 (4) DVT (deep venous thrombosis) DVT location: lower extremity Affected thrombotic vein of extremity: peroneal Chronicity: acute Laterality: right Qualified Code(s): I82.451 - Acute embolism and thrombosis of right peroneal vein
[2024-02-25] MEDS: methylPREDNISolone 125 MG/2 ML VIAL IV STA (12:42)
[2024-02-25 15:43] LABS: Appearance Urine Clear (Clear); Bacteria Urine Automated None Seen (None Seen); Bilirubin Urine Negative (Negative); Blood Urine Negative (Negative); Cast Urine Automated 0-2 /lpf (0-2); Color Urine Yellow; Epithelial Cell Urine Auto 0-2 /hpf (0-2); Glucose Urine UA Negative (Negative); Ketones Urine Negative (Negative); Leukocyte Esterase Urine 2+ (Negative); Nitrite Urine Negative (Negative); Protein Urine Negative (Negative); RBC Urine Automated 0-2 /hpf (0-2); Specific Gravity Urine 1.018 (1.000-1.030); Urobilinogen Urine Negative (Negative); WBC Urine Automated 0-5 /hpf (0-5); pH Urine 5.5 (4.5-7.5)
[2024-02-25] MEDS ORDERED: ALBUT/IPRATROP 3MG/0.5MG NEB 3 ML VIAL NEB PRN (16:05)
[2024-02-25] MEDS ORDERED: ALBUTEROL HFA 8 GM INHALER INH PRN (16:05)
[2024-02-25] MEDS: POTASSIUM CHLORIDE CRTAB 20 MEQ TABCR PO STA (16:40)
[2024-02-25] MEDS: MAGNESIUM OXIDE 400 MG TAB PO SCH (16:41)
[2024-02-25] MEDS: FUROSEMIDE INJ 20 MG/2 ML VIAL IV SCH (16:42)
[2024-02-25] MEDS: CARBIDOPA/LEVODOP 10/100MG TAB PO SCH (19:04)
--- NOTE | 2024-02-25 19:41 | XCELERA ---
[id number] \\[id number]
[2024-02-25] MEDS ORDERED: DOXYCYCLINE HYCLATE 100 MG CAP PO SCH (21:00)
[2024-02-25] MEDS: APIXABAN 2.5 MG TAB PO SCH (21:46)
[2024-02-25] MEDS: POTASSIUM CHLORIDE CRTAB 20 MEQ TABCR PO SCH (21:51)
[2024-02-25] MEDS: DOXYCYCLINE HYCLATE 100 MG CAP PO SCH (22:41)
[2024-02-25] MEDS: LATANOPROST 0.005% OP SOLN 2.5 ML BTL OPB SCH (22:41)
[2024-02-25] MEDS: ACETAMINOPHEN 325 MG TAB PO PRN (22:41)
[2024-02-26] MEDS: diphenhydrAMINE Capsule 25 MG CAP PO ONE ×2 (01:25→21:34)
[2024-02-26 06:22] LABS: Basophils # (auto) 0.01 K/uL (0.00-0.20); Basophils % (auto) 0.2 %; Hematocrit (blood only) 34.5 % (37.0-47.0); Hemoglobin 11.3 g/dl (12.0-16.0); Immature Granulocytes # (auto) 0.03 K/uL (0.01-0.20); Immature Granulocytes % (auto) 0.5 %; Lymphocytes # (auto) 1.85 K/uL (1.20-3.40); Lymphocytes % (auto) 33.2 %; Mean Corpuscular Hemoglobin 35.3 pg (25.0-34.0); Mean Corpuscular Hgb Conc 32.8 g/dL (32.0-36.0); Mean Corpuscular Volume 107.8 fL (80.0-100.0); Monocytes # (auto) 0.23 K/uL (0.11-0.59); Monocytes % (auto) 4.1 %; Neutrophils # (auto) 3.46 K/uL (1.40-6.50); Platelet Count 323 K/uL (130-400); RDW Coefficient of Variation 15.5 % (11.5-14.5); RDW Standard Deviation 62.1 fL (36.4-46.3); White Blood Count 5.58 K/ul (4.8-10.8)
[2024-02-26] MEDS: LEVOTHYROXINE SODIUM 88 MCG TABLET PO SCH (06:22)
[2024-02-26 06:42] LABS: BUN Creatinine Ratio 18.9 (10-20); Calcium 9.1 mg/dl (8.6-10.3); Creatinine Clr Calc Pharmacy 18.5 ml/min; Est GFR (African American) 35.2 ml/min; Est GFR (Non-African American) 30.3 ml/min; Potassium 5.5 mmol/L (3.5-5.1)
--- NOTE | 2024-02-26 07:55 | Electrocardiogram Report ---
Test Reason : Blood Pressure : */* mmHG Vent. Rate : 97 BPM Atrial Rate : 97 BPM P-R Int : 170 ms QRS Dur : 88 ms QT Int : 348 ms P-R-T Axes : 30 -23 56 degrees QTcB Int : 441 ms Normal sinus rhythm Possible Left atrial enlargement Minimal voltage criteria for LVH, may be normal variant Poor R wave progression, consider anterior SC vs. lead placement vs. LVH Abnormal ECG When compared with ECG of 08-Nov-2023 09:50, No significant change was found Confirmed by Chico Garcia ([id number] on 02/25/2024 5:54:38 PM Referred By: REFERRED SELF Confirmed By: Chico Garcia
[2024-02-26] MEDS: FAMOTIDINE 20 MG TAB PO SCH (08:03)
[2024-02-26] MEDS: THIAMINE HCL 100 MG TAB PO SCH (08:03)
[2024-02-26] MEDS: DULoxetine HCL 30 MG CAP PO SCH (08:04)
[2024-02-26] MEDS: ATORVASTATIN 40 MG TAB PO SCH (08:04)
[2024-02-26] MEDS: predniSONE 20 MG TAB PO SCH (08:06)
[2024-02-26 08:41] LABS: BUN Creatinine Ratio 18.8 (10-20); Calcium 9.3 mg/dl (8.6-10.3); Creatinine Clr Calc Pharmacy 19.1 ml/min; Est GFR (African American) 36.6 ml/min; Est GFR (Non-African American) 31.5 ml/min
[2024-02-26] MEDS: FOLIC ACID 1 MG TAB PO SCH (09:29)
--- NOTE | 2024-02-26 13:19 | Hospitalist Progress Note ---
Date of Service February 26, 2024 Assessment & Plan (1) Acute respiratory failure with hypoxia: Plan: Hypoxia,?COPD Exacerbation -With dyspnea and hypoxia No leukocytosis, no focal consolidations to suggest pneumonia Is with diminished air movement and wheezing DDx includes CHF manage as below Due to increased wheezing, cough, sputum production will add albuterol, magnesium replacement, doxycycline, flutter valve, incentive spirometry, and continue 40 mg methylprednisolone daily Did not hyper oxygenate, titrate oxygen to goal 89% (2) Acute bronchitis with COPD: Plan: As noted (3) Acute diastolic CHF (congestive heart failure): Plan: ?New CHFpEF Chest x-ray shows pulmonary edema Is not on diuretics at baseline, without prior CHF. Echo shows mild concentric LVH and EF of greater than 70% Echo 07/23/2023: EF 60 to 65%, LV SF normal, mild mitral stenosis BNP mildly elevated at 183 Patient is being treated with Lasix 20 mg IV twice daily with good clinical response. She is feeling better and also has had a good diuretic response. Patient is anticoagulated on Eliquis twice daily [employer], PE unlikely No leukocytosis, no evidence of superimposed pneumonia EKG negative Patient has prior admissions with aspiration pneumonias, was seen by FILENET ADMIN who recommended minced and moist IDDSI 4 diet, thin liquid IDD SI 0 with aspiration precautions. Easy to chew. Upright with meals for 30 minutes. Video swallow did not show evidence of aspiration at time of 10/2023 hospitalization BioFire negative (4) DVT (deep venous thrombosis): Plan: History of DVT Continue Eliquis. This was held around a traumatic SAH, does have a history of stroke DVT. Following stability of several months this was resumed as outpatient and is continued on admission. (5) CKD (chronic kidney disease), stage IV: Plan: CKD 4 Baseline creatinine approximately 11.4 Admitting creatinine 1.57 2/2 hypertension/DM/smoking Monitor potassium closely. Discontinued potassium replacements as potassium was on the high side this morning. Encouraged albuterol neb treatments Monitor creatinine closely while being diuresed Plan Chronic stable issues Hypothyroidism: Continue Synthroid Parkinsonism: Continue Sinemet History of secondary AV block: S/p Holter monitor, beta-claudia was held without further issues Megaloblastic anemia: Vitamin supplementation continued, no acute bleeding. Hgb baseline ~9-12, currently 11.9. Trended. - History of ischemic stroke: Right cerebellar stroke 06/2023: Continue statin, dose reduced apixaban History of subarachnoid hemorrhage 09/2023: Transferred to [place] for neurosurgical evaluation. Nonoperative management at that time. Clinically progressed without surgical intervention and was discharged to rehab. Eliquis was held for several months, then resumed fro DVT ppx. DVT prophylaxis: On Eliquis as noted Diet: Heart healthy Disposition: Medical telemetry for CHF CODE STATUS: Full code Admission and Anticipated Discharge Date Admission Date: February 25, 2024 Subjective Patient feels well. She says that she was coughing when she first came to the emergency room. Cough has improved. Review of Systems Review of Systems: All systems reviewed & are unremarkable except as noted in Subjective Physical Exam Physical Exam: General: Awake, conversant Heart: S1, S2/regular rate and rhythm, no murmur rubs or gallops Lungs: Bibasilar crackles.. Normal effort Abdomen: Soft/nontender/nondistended. No hepatosplenomegaly Extremities: No clubbing/cyanosis. No edema Behavior: Appropriate, cooperative Results & Data Results & Data Vital Signs (Past 12 Hours) Vital Signs Temp Pulse Pulse Resp BP Pulse Ox O2 Del Method 02/26/24 11:53 36.8 C 92 H 19 102/66 96 Nasal Cannula 02/26/24 11:38 Nasal Cannula 02/26/24 10:37 78 02/26/24 08:24 36.7 C 92 H 19 133/70 91 Nasal Cannula 02/26/24 03:05 36.7 C 83 18 137/69 98 Nasal Cannula O2 Flow Rate 02/26/24 11:53 2 02/26/24 11:38 2 02/26/24 10:37 02/26/24 08:24 2 02/26/24 03:05 Laboratory Results Abnormal lab results 02/25/24 02/26/24 02/26/24 Range/Units 15:14 05:57 07:53 RBC 3.20 L (4.20-5.40) M/uL Hgb 11.3 L (12.0-16.0) g/dl Hct 34.5 L (37.0-47.0) % MCV 107.8 H (80.0-100.0) fL MCH 35.3 H (25.0-34.0) pg RDW Std Deviation 62.1 H (36.4-46.3) fL RDW Coeff of Damien 15.5 H (11.5-14.5) % Potassium 5.5 H D (3.5-5.1) mmol/L Carbon Dioxide 36 H 36 H (21-32) mmol/L BUN 30 H 29 H (6-23) mg/dl Creatinine 1.59 H 1.54 H (0.6-1.2) mg/dl Glucose 136 H 129 H (70-99(Fasting)) mg/dl Ur Leukocyte Esterase 2+ H (Negative) PG Care Time/CCT Total # of Minutes Spent Total Time Spent with Patient: Total time spent is greater than 50% in coordination of care (as documented) at patient's floor/unit and/or counseling patient: Coding Level of Care Code 14674 SUB INP/OBS CARE 2/35MIN Diagnoses Acute respiratory failure with hypoxia J96.01 Acute bronchitis with COPD J44.0; J20.9 Acute diastolic CHF (congestive heart failure) I50.31 Acute deep vein thrombosis (DVT) of right peroneal vein I82.451 DVT location: lower extremity Affected thrombotic vein of extremity: peroneal Chronicity: acute Laterality: right CKD (chronic kidney disease), stage IV N18.4 (4) DVT (deep venous thrombosis) DVT location: lower extremity Affected thrombotic vein of extremity: peroneal Chronicity: acute Laterality: right Qualified Code(s): I82.451 - Acute embolism and thrombosis of right peroneal vein
[2024-02-26] MEDS: SODIUM CHLORIDE 0.65% NA SOLN 45 ML (OCEAN) ONE (21:33)
[2024-02-26] MEDS: DICLOFENAC SOD 1% GEL 100 GM TUBE EXT PRN (21:34)
[2024-02-27 07:27] LABS: Basophils # (auto) 0.04 K/uL (0.00-0.20); Basophils % (auto) 0.4 %; Hematocrit (blood only) 36.3 % (37.0-47.0); Hemoglobin 12.2 g/dl (12.0-16.0); Immature Granulocytes # (auto) 0.04 K/uL (0.01-0.20); Immature Granulocytes % (auto) 0.4 %; Lymphocytes # (auto) 3.31 K/uL (1.20-3.40); Lymphocytes % (auto) 29.7 %; Mean Corpuscular Hemoglobin 35.9 pg (25.0-34.0); Mean Corpuscular Hgb Conc 33.6 g/dL (32.0-36.0); Mean Corpuscular Volume 106.8 fL (80.0-100.0); Mean Platelet Volume 10.1 fL (9.4-12.4); Monocytes # (auto) 0.79 K/uL (0.11-0.59); Monocytes % (auto) 7.1 %; Neutrophils # (auto) 6.97 K/uL (1.40-6.50); Neutrophils % (auto) 62.4 %; Platelet Count 393 K/uL (130-400); RDW Coefficient of Variation 16.5 % (11.5-14.5); White Blood Count 11.15 K/ul (4.8-10.8)
[2024-02-27 07:42] LABS: Calcium 10.2 mg/dl (8.6-10.3); Creatinine Clr Calc Pharmacy 15.7 ml/min; Est GFR (African American) 28.4 ml/min; Est GFR (Non-African American) 24.5 ml/min; Potassium 4.7 mmol/L (3.5-5.1)
[2024-02-27] MEDS: LORATADINE 10 MG TAB PO SCH (09:36)
[2024-02-27] MEDS: POLYETHYLENE (MIRALAX) 17 GM PACK PO PRN (09:41)
[2024-02-27] MEDS: SODIUM CHLORIDE 0.9% 500 ML IV SCH (09:44)
--- NOTE | 2024-02-27 13:54 | Hospitalist Progress Note ---
Date of Service February 27, 2024 Assessment & Plan (1) Acute respiratory failure with hypoxia: Plan: Hypoxia,?COPD Exacerbation -With dyspnea and hypoxia No leukocytosis, no focal consolidations to suggest pneumonia No more wheezing Discontinue p.o. prednisone (2) Acute bronchitis with COPD: Plan: As noted (3) Acute diastolic CHF (congestive heart failure): Plan: ?New CHFpEF Chest x-ray shows pulmonary edema Is not on diuretics at baseline, without prior CHF. Echo shows mild concentric LVH and EF of greater than 70% Echo 07/23/2023: EF 60 to 65%, LV SF normal, mild mitral stenosis BNP mildly elevated at 183 Patient was being treated with Lasix 20 mg IV twice daily with good clinical response. She is feeling better and also has had a good diuretic response. Will discontinue Lasix today since her creatinine is going up. 1.9 today from 1.5 yesterday. 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 Easy to chew. Upright with meals for 30 minutes. Video swallow did not show evidence of aspiration at time of 10/2023 hospitalization BioFire negative (4) DVT (deep venous thrombosis): Plan: History of DVT Continue Eliquis. This was held around a traumatic SAH, does have a history of stroke DVT. Following stability of several months this was resumed as outpatient and is continued on admission. (5) CKD (chronic kidney disease), stage IV: Plan: CKD 4 Baseline creatinine approximately 11.4 Admitting creatinine 1.57 Creatinine went up to 1.9 today 02/26 possibly due to overdiuresis. Discontinue IV Lasix and hydrate gently at 80 mL an hour for 500cc 2/2 hypertension/DM/smoking Monitor potassium closely. Discontinued potassium replacements as potassium was on the high side on 02/25. Encouraged albuterol neb treatments Plan Chronic stable issues Hypothyroidism: Continue Synthroid Parkinsonism: Continue Sinemet History of secondary AV block: S/p Holter monitor, beta-claudia was held without further issues Megaloblastic anemia: Vitamin supplementation continued, no acute bleeding. Hgb baseline ~9-12, currently 11.9. Trended. - History of ischemic stroke: Right cerebellar stroke 06/2023: Continue statin, dose reduced apixaban History of subarachnoid hemorrhage 09/2023: Transferred to [place] for neurosurgical evaluation. Nonoperative management at that time. Clinically progressed without surgical intervention and was discharged to rehab. Eliquis was held for several months, then resumed fro DVT ppx. DVT prophylaxis: On Eliquis as noted Diet: Heart healthy Disposition: Medical telemetry for CHF CODE STATUS: Full code Admission and Anticipated Discharge Date Admission Date: February 25, 2024 Subjective Patient feels well overall. Denies chest pain or shortness of breath. Says that her cough has improved and her breathing is improved as well. Review of Systems Review of Systems: All systems reviewed & are unremarkable except as noted in Subjective Physical Exam Physical Exam: General: Awake, conversant Heart: S1, S2/regular rate and rhythm, no murmur rubs or gallops Lungs: Less bibasilar crackles.. Normal effort Abdomen: Soft/nontender/nondistended. No hepatosplenomegaly Extremities: No clubbing/cyanosis. No edema Behavior: Appropriate, cooperative Results & Data Results & Data Vital Signs (Past 12 Hours) Vital Signs Temp Pulse Resp BP Pulse Ox Pulse Ox O2 Del Method 02/27/24 12:00 36.6 C 102 H 19 124/63 91 Nasal Cannula 02/27/24 09:00 95 Room Air 02/27/24 08:00 95 02/27/24 08:00 Room Air 02/27/24 07:52 36.9 C 83 18 131/76 96 Nasal Cannula 02/27/24 03:05 36.6 C 93 H 22 134/69 91 Room Air O2 Del Method O2 Flow Rate 02/27/24 12:00 1 02/27/24 09:00 02/27/24 08:00 Room Air 02/27/24 08:00 02/27/24 07:52 1 02/27/24 03:05 PG Care Time/CCT Total # of Minutes Spent Total Time Spent with Patient: Total time spent is greater than 50% in coordination of care (as documented) at patient's floor/unit and/or counseling patient: Coding Level of Care Code 96721 SUB INP/OBS CARE 2/35MIN Diagnoses Acute respiratory failure with hypoxia J96.01 Acute bronchitis with COPD J44.0; J20.9 Acute diastolic CHF (congestive heart failure) I50.31 Acute deep vein thrombosis (DVT) of right peroneal vein I82.451 DVT location: lower extremity Affected thrombotic vein of extremity: peroneal Chronicity: acute Laterality: right CKD (chronic kidney disease), stage IV N18.4 (4) DVT (deep venous thrombosis) DVT location: lower extremity Affected thrombotic vein of extremity: peroneal Chronicity: acute Laterality: right Qualified Code(s): I82.451 - Acute embolism and thrombosis of right peroneal vein
[2024-02-27] MEDS: DOCUSATE SODIUM 100 MG CAP PO ONE (20:53)
[2024-02-28 05:38] LABS: Basophils # (auto) 0.02 K/uL (0.00-0.20); Basophils % (auto) 0.2 %; Immature Granulocytes # (auto) 0.05 K/uL (0.01-0.20); Immature Granulocytes % (auto) 0.5 %; Lymphocytes # (auto) 3.31 K/uL (1.20-3.40); Lymphocytes % (auto) 33.2 %; Mean Corpuscular Hemoglobin 36.1 pg (25.0-34.0); Mean Corpuscular Hgb Conc 33.3 g/dL (32.0-36.0); Mean Corpuscular Volume 108.2 fL (80.0-100.0); Mean Platelet Volume 10.3 fL (9.4-12.4); Monocytes # (auto) 0.72 K/uL (0.11-0.59); Monocytes % (auto) 7.2 %; Neutrophils # (auto) 5.88 K/uL (1.40-6.50); Neutrophils % (auto) 58.9 %; Platelet Count 360 K/uL (130-400); RDW Coefficient of Variation 16.6 % (11.5-14.5); RDW Standard Deviation 66.1 fL (36.4-46.3); Red Blood Count 3.05 M/uL (4.20-5.40); White Blood Count 9.98 K/ul (4.8-10.8)
[2024-02-28 05:40] LABS: BUN Creatinine Ratio 33.5 (10-20); Calcium 9.5 mg/dl (8.6-10.3); Creatinine Clr Calc Pharmacy 14.4 ml/min; Est GFR (African American) 25.7 ml/min; Est GFR (Non-African American) 22.2 ml/min; Potassium 4.8 mmol/L (3.5-5.1)
[2024-02-28] MEDS: SODIUM CHLORIDE 0.9% 500 ML IV SCH (08:10)
[2024-02-28 15:52] LABS: BUN Creatinine Ratio 34.9 (10-20); Calcium 9.6 mg/dl (8.6-10.3); Creatinine Clr Calc Pharmacy 17.2 ml/min; Est GFR (African American) 31.3 ml/min; Potassium 4.4 mmol/L (3.5-5.1)
--- NOTE | 2024-02-28 16:09 | Hospitalist Progress Note ---
Date of Service February 28, 2024 Assessment & Plan (1) Acute respiratory failure with hypoxia: Plan: Hypoxia,?COPD Exacerbation -With dyspnea and hypoxia No leukocytosis, no focal consolidations to suggest pneumonia No more wheezing Discontinued p.o. prednisone (2) Acute bronchitis with COPD: Plan: As noted (3) Acute diastolic CHF (congestive heart failure): Plan: ?New CHFpEF Chest x-ray shows pulmonary edema Is not on diuretics at baseline, without prior CHF. Echo shows mild concentric LVH and EF of greater than 70% Echo 07/23/2023: EF 60 to 65%, LV SF normal, mild mitral stenosis BNP mildly elevated at 183 Patient was being treated with Lasix 20 mg IV twice daily with good clinical response. She is feeling better and also has had a good diuretic response. Discontinued Lasix 02/26 since her creatinine is going up. Hydrated her gently with 500 cc at 80 mL/h Today 02/27 creatinine is still up at 2 Decided to give her another 500 cc of IV fluid at 80 mL an hour. Recheck BMP shows that the creatinine is coming down. 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 Easy to chew. Upright with meals for 30 minutes. Video swallow did not show evidence of aspiration at time of 10/2023 hospitalization BioFire negative (4) DVT (deep venous thrombosis): Plan: History of DVT Continue Eliquis. This was held around a traumatic SAH, does have a history of stroke DVT. Following stability of several months this was resumed as outpatient and is continued on admission. (5) CKD (chronic kidney disease), stage IV: Plan: CKD 4 Baseline creatinine approximately 11.4 Admitting creatinine 1.57 Creatinine went up to 1.9 on 02/26 and 2 on 02/27 possibly due to overdiuresis. Discontinued IV Lasix and hydrated gently at 80 mL an hour for 500cc x 2 Creatinine starting to trend down. Now at 1.7 Monitor creatinine closely 2/2 hypertension/DM/smoking Monitor potassium closely. Discontinued potassium replacements as potassium was on the high side on 02/25. Encouraged albuterol neb treatments Plan Chronic stable issues Hypothyroidism: Continue Synthroid Parkinsonism: Continue Sinemet History of secondary AV block: S/p Holter monitor, beta-claudia was held without further issues Megaloblastic anemia: Vitamin supplementation continued, no acute bleeding. Hgb baseline ~9-12, currently 11.9. Trended. - History of ischemic stroke: Right cerebellar stroke 06/2023: Continue statin, dose reduced apixaban History of subarachnoid hemorrhage 09/2023: Transferred to [place] for neurosurgical evaluation. Nonoperative management at that time. Clinically progressed without surgical intervention and was discharged to rehab. Eliquis was held for several months, then resumed fro DVT ppx. DVT prophylaxis: On Eliquis as noted Diet: Heart healthy Disposition: Medical telemetry for CHF CODE STATUS: Full code Admission and Anticipated Discharge Date Admission Date: February 25, 2024 Subjective Patient says she feels well overall. Denies chest pain or shortness of breath. Noted that her creatinine went up to 2 today. Review of Systems Review of Systems: All systems reviewed & are unremarkable except as noted in Subjective Physical Exam Physical Exam: General: Awake, conversant Heart: S1, S2/regular rate and rhythm, no murmur rubs or gallops Lungs: Less bibasilar crackles.. Normal effort Abdomen: Soft/nontender/nondistended. No hepatosplenomegaly Extremities: No clubbing/cyanosis. No edema Behavior: Appropriate, cooperative Results & Data Results & Data Vital Signs (Past 12 Hours) Vital Signs Temp Pulse Resp BP Pulse Ox O2 Del Method O2 Flow Rate 02/28/24 11:51 36.4 C L 84 18 136/81 97 Room Air 1 02/28/24 08:01 36.5 C 83 17 121/74 97 Nasal Cannula 1 02/28/24 07:15 Nasal Cannula 1 PG Care Time/CCT Total # of Minutes Spent Total Time Spent with Patient: Total time spent is greater than 50% in coordination of care (as documented) at patient's floor/unit and/or counseling patient: Coding Level of Care Code 96678 SUB INP/OBS CARE 2/35MIN Diagnoses Acute respiratory failure with hypoxia J96.01 Acute bronchitis with COPD J44.0; J20.9 Acute diastolic CHF (congestive heart failure) I50.31 Acute deep vein thrombosis (DVT) of right peroneal vein I82.451 DVT location: lower extremity Affected thrombotic vein of extremity: peroneal Chronicity: acute Laterality: right CKD (chronic kidney disease), stage IV N18.4 (4) DVT (deep venous thrombosis) DVT location: lower extremity Affected thrombotic vein of extremity: peroneal Chronicity: acute Laterality: right Qualified Code(s): I82.451 - Acute embolism and thrombosis of right peroneal vein
[2024-02-29 08:20] LABS: BUN Creatinine Ratio 35.3 (10-20); Calcium 9.8 mg/dl (8.6-10.3); Creatinine Clr Calc Pharmacy 17.5 ml/min; Est GFR (African American) 31.8 ml/min; Est GFR (Non-African American) 27.4 ml/min; Potassium 4.6 mmol/L (3.5-5.1)
[2024-02-29 11:25] VITALS: RESP 16
--- NOTE | 2024-02-29 11:37 | Discharge Summary ---
Date of Service February 29, 2024 Admission HPI Per Admitting Provider Elyse is an 78-year-old female past medical history of [place] 2 AV block, CKD 4, renal hyperparathyroidism, PAD, compression fractures and intermittent home oxygen as needed with exertion but no continuous oxygen requirement who presents to the ER with hypoxia overnight to SpO2 of 70s by home monitor, and escalation of oxygen needs to 3 L of nasal cannula. Patient denies apnea at rest on triage assessment. Chest x-ray shows cardiomegaly and moderate pulmonary edema. Brandy is seen at the bedside. She reports that she generally feels okay, although has had a minimally productive cough with clear sputum in the last week. She has noted her oxygen levels are much lower than normal, and wears low 70% overnight. She does not normally use all the oxygen all the time, uses it as needed around 2 L. Is currently on 3 L continuous to maintain sats greater than 94%. She has not noticed any leg swelling. She denies orthopnea. No chest pain or chest pressure. She denies fever, chills, sweats. No abdominal pain. No urinary symptoms. She does think she had been wheezing a little bit more than usual with her cough, and the cough is not very productive. Denies salt indiscretion, reports she really does not eat much salt except sometimes a little bit with solid Medical History: Reviewed Medications: Reviewed Surgical History: Reviewed Family history: Reviewed Allergies: Reviewed Social History: Reviewed Code Status: Full Admission Exam Per Admitting Provider General: A&Ox3. NAD. Cooperative. HEENT: Atraumatic, normocephalic. Vision/hearing intact. Pulm: +diminsihed, scattered exp wheezes, +bibasilar crackles. Symmetrical chest rise. No increased work of breathing. No respiratory distress. Cardiac: RRR, -mrg. Radial pulses intact and symmetrical. JVD not appreciated Abdominal: Nontender, nondistended, soft. BS present. Ext: warm, dry. NT. Principal Diagnosis Acute hypoxic respiratory failure possibly due to combination of acute diastolic congestive heart failure and acute COPD exacerbation. Discharge Exam General: Awake, conversant Heart: S1, S2/regular rate and rhythm, no murmur rubs or gallops Lungs: Less bibasilar crackles.. Normal effort Abdomen: Soft/nontender/nondistended. No hepatosplenomegaly Extremities: No clubbing/cyanosis. No edema Behavior: Appropriate, cooperative Discharge Data Allergies Allergy/AdvReac Type Severity Reaction Status Date / Time azithromycin [From Zithromax] Allergy Intermediate HIVES Verified 01/21/24 10:35 nitrofurantoin Allergy Intermediate HIVES,ITCHI Verified 01/21/24 10:35 NG tramadol AdvReac Mild nausea Verified 01/21/24 10:35 Consultations 02/25/24 12:23 ED Decision to Admit Stat Hospital Course (1) Acute respiratory failure with hypoxia: Hypoxia,?COPD Exacerbation -With dyspnea and hypoxia No leukocytosis, no focal consolidations to suggest pneumonia No more wheezing Discontinued p.o. prednisone (2) Acute bronchitis with COPD: As noted (3) Acute diastolic CHF (congestive heart failure): ?New CHFpEF Chest x-ray shows pulmonary edema Is not on diuretics at baseline, without prior CHF. Echo shows mild concentric LVH and EF of greater than 70% Echo 07/23/2023: EF 60 to 65%, LV SF normal, mild mitral stenosis BNP mildly elevated at 183 Patient was being treated with Lasix 20 mg IV twice daily with good clinical response. She is feeling better and also has had a good diuretic response. Discontinued Lasix 02/26 since her creatinine is going up. Hydrated her gently with 500 cc at 80 mL/h On 02/27 creatinine is still up at 2. After 500 cc IV fluid, creatinine came down to 1.7 Today 02/28, creatinine has remained stable at 1.7 Decided to discharge patient off of Lasix She will need to follow-up with PCP and specialist physicians in 1 to 2 weeks. Patient is breathing well and has no complaints Rest and exercise completed. She is needing 2 L of oxygen at 3 L on exertion. She was normally using 1 L oxygen at home. 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 Easy to chew. Upright with meals for 30 minutes. Video swallow did not show evidence of aspiration at time of 10/2023 hospitalization BioFire negative (4) DVT (deep venous thrombosis): History of DVT Continue Eliquis. This was held around a traumatic SAH, does have a history of stroke DVT. Following stability of several months this was resumed as outpatient and is continued on admission. (5) CKD (chronic kidney disease), stage IV: CKD 4 Baseline creatinine approximately 11.4 Admitting creatinine 1.57 Creatinine went up to 1.9 on 02/26 and 2 on 02/27 possibly due to overdiuresis. Discontinued IV Lasix and hydrated gently at 80 mL an hour for 500cc x 2 Creatinine starting to trend down. Now at 1.7 Decided to discharge patient off of Lasix 2/2 hypertension/DM/smoking Advised patient to follow-up with specialist physicians in 2 weeks Plan Chronic stable issues Hypothyroidism: Continue Synthroid Parkinsonism: Continue Sinemet History of secondary AV block: S/p Holter monitor, beta-claudia was held wit hout further issues Megaloblastic anemia: Vitamin supplementation continued, no acute bleeding. Hgb baseline ~9-12, currently 11.9. Trended. - History of ischemic stroke: Right cerebellar stroke 06/2023: Continue statin, dose reduced apixaban History of subarachnoid hemorrhage 09/2023: Transferred to [place] for neurosurgical evaluation. Nonoperative management at that time. Clinically progressed without surgical intervention and was discharged to rehab. Eliquis was held for several months, then resumed fro DVT ppx. DVT prophylaxis: On Eliquis as noted Diet: Heart healthy Disposition: Medical telemetry for CHF CODE STATUS: Full code Total Time Total Time Spent Total Time Spent (In Minutes): 35 Discharge Plan Discharge Items Patient Disposition: Home - Self-Care Reason For Visit: HYPOXIA, COPD, NEW CHF Discharge Diagnosis: Acute hypoxic respiratory failure possibly due to combination of acute diastolic congestive heart failure and acute COPD exacerbation. Condition on Discharge: Fair Activity: Resume your previous activity Non-emergency contact: Primary Care Provider Call non-emergency contact if: you have any medication questions and your symptoms worsen Follow-up/Referrals: Taylor Davis MD [Physician] - Katarina Peters DO [Primary Care Provider] - Diet: Heart Healthy and Low Sodium (2gm) Addtl Attending Provider Instructions: Advised to follow-up with PCP in 1 week Advised to follow-up with specialist physicians in 2 weeks Advised to note that you will need 2 L of oxygen at rest and 3 L on exertion Pending Studies at Discharge: No Stand-Alone Forms: My [facility] Medications and DC Order Prescriptions: Continued famotidine 20 mg tablet 20 mg PO DAILY Qty: 90 3RF folic acid 1 mg tablet 1 mg PO QAM Qty: 90 3RF carbidopa-levodopa 10-100 mg tablet 2 tab PO QID 30 Days Qty: 240 5RF thiamine HCl (vitamin B1) 100 mg tablet 200 mg PO DAILY latanoprost 0.005 % drops 1 drp OPB UD Rx Instructions: 1 drop eye hs last filled 12/02 25 day supply atorvastatin 80 mg tablet 80 mg PO UD Rx Instructions: 80 mg po daily last filled 12/02 30 day supply levothyroxine 88 mcg tablet 88 mcg PO UD Rx Instructions: 88 mcg po qam last filled 12/02 30 day supply albuterol sulfate 90 mcg/actuation Hfa Aerosol Inhaler 2 inh INHALATION DAILY PRN (Reason: Shortness Of Breath Or Wheezing) fluticasone propionate [Flonase Allergy Relief] 50 mcg/actuation [place],Suspension 2 spray INTRANASAL DAILY PRN (Reason: .allergy symptoms) Rx Instructions: administer into each nostril duloxetine 30 mg capsule,delayed release(DR/EC) 30 mg PO UD Rx Instructions: 30 mg po daily. last filled 12/02 30 day supply Eliquis 2.5 mg tablet 2.5 mg PO Q12 acetaminophen [Tylenol] 325 mg Tablet 650 mg PO Q6 PRN (Reason: fever or pain) Qty: 60 0RF Rx Instructions: OTC unable to verify 02/24 valacyclovir 500 mg tablet 500 mg PO DIRECTED Rx Instructions: fill history- 500 mg po tid Discharge Orders: Discharge Order (Routine); Ordered 02/29/24 Ordered By: Bry Nicole Admission Data Admit Date/Time: 02/25/24 13:01 Attending Provider: Bry Nicole Admit Provider: Thang Maldonado Primary Care Provider: Katarina Peters Other Providers: Thang Maldonado Other Interventions: Discharge Summary Assessment (RN) Last Done: 02/29/24 14:41
[2024-02-29 14:47] VITALS: BP 116/66; PULSE 90; TEMP 97.7; O2SAT 95
== END 2024-02-29 16:50 | disposition home or self-care (01) | DRG 189 ==
LOC: ED 09:44 → EDINP 13:01 → SUATTDRO 13:01 → 4W 18:16

== ENCOUNTER 2024-05-06 20:42 | Observation (INO) ==
[2024-05-06 21:31] LABS: Basophils # (auto) 0.04 K/uL (0.00-0.20); Basophils % (auto) 0.6 %; Eosinophils # (auto) 0.17 K/uL (0.00-0.50); Eosinophils % (auto) 2.7 %; Hematocrit (blood only) 34.6 % (37.0-47.0); Immature Granulocytes # (auto) 0.02 K/uL (0.01-0.20); Immature Granulocytes % (auto) 0.3 %; Lymphocytes # (auto) 2.34 K/uL (1.20-3.40); Lymphocytes % (auto) 36.9 %; Mean Corpuscular Hemoglobin 36.2 pg (25.0-34.0); Mean Corpuscular Hgb Conc 31.8 g/dL (32.0-36.0); Mean Corpuscular Volume 113.8 fL (80.0-100.0); Mean Platelet Volume 10.6 fL (9.4-12.4); Monocytes % (auto) 6.3 %; Neutrophils # (auto) 3.37 K/uL (1.40-6.50); Neutrophils % (auto) 53.2 %; Platelet Count 205 K/uL (130-400); RDW Coefficient of Variation 12.3 % (11.5-14.5); RDW Standard Deviation 51.8 fL (36.4-46.3); Red Blood Count 3.04 M/uL (4.20-5.40); White Blood Count 6.34 K/ul (4.8-10.8)
[2024-05-06 21:46] LABS: Albumin Globulin Ratio 1.4 (0.9-2); Albumin Level 3.8 gm/dl (3.4-5.0); BUN Creatinine Ratio 15.4 (10-20); Bilirubin,Total 0.5 mg/dl (0.2-1.0); Calcium 9.8 mg/dl (8.6-10.3); Globulin 2.7 gm/dl (2.5-4.0); Magnesium 1.7 mg/dl (1.7-2.4); Potassium 4.4 mmol/L (3.5-5.1); Total Protein 6.5 gm/dl (6.0-8.3)
[2024-05-06 21:50] LABS: Macrocytosis Present; Polychromasia 1+; Stomatocytes 1+
[2024-05-06 21:52] LABS: Troponin I High Sensitivity 17.2 pg/ml (0-14)
[2024-05-06 22:01] LABS: Thyroid Stimulating Hormone 0.999 uIu/ml (0.300-4.500)
[2024-05-06 22:06] LABS: Appearance Urine Clear (Clear); Bilirubin Urine Negative (Negative); Blood Urine Negative (Negative); Color Urine Yellow; Glucose Urine UA Negative (Negative); Ketones Urine Negative (Negative); Leukocyte Esterase Urine Negative (Negative); Nitrite Urine Negative (Negative); Protein Urine Negative (Negative); Specific Gravity Urine 1.008 (1.000-1.030); Urobilinogen Urine Negative (Negative); pH Urine 6.5 (4.5-7.5)
[2024-05-06] MEDS ORDERED: SODIUM CHLORIDE 0.9% 1,000 ML IV ONE (22:06)
--- NOTE | 2024-05-06 22:10 | CT Scan Report ---
Exam(s): CT HEAD Without Contrast EXAM: CT Head Without Intravenous Contrast CLINICAL HISTORY: Reason for exam: hallucinations. TECHNIQUE: Axial computed tomography images of the head/brain without intravenous contrast. CTDI is 38.49 mGy and DLP is 625.8 mGy-cm. Automated exposure control was utilized for the study. A dose lowering technique was utilized adhering to the principles of ALARA. COMPARISON: MRI brain 11/08/2023 FINDINGS: Brain: No intracranial hemorrhage, mass-effect, or cerebral edema. Global parenchymal atrophy. Periventricular and subcortical low attenuation which is nonspecific but favored to represent chronic microvascular ischemic changes. Ventricles: Unremarkable. Bones/joints: Unremarkable. No fracture. Soft tissues: Unremarkable. Sinuses: No acute sinusitis. Mastoid air cells: Unremarkable as visualized. IMPRESSION: No acute intracranial abnormality. Electronically signed by: Ahsan Nieto MD 05/06/24 22:09 PM
--- NOTE | 2024-05-06 22:29 | Emergency Department Note ---
Impression & Plan Altered mental status, Hallucinations, CRF (chronic renal failure), Anemia ED Provider Note NAME: SOFYA COX AGE: 79 SEX: F : 1945 ARRIVES VIA: Ambulance INFORMANT: [Patient][nursing] ED PROVIDER(S): [Salo Thrasher MD] CHIEF COMPLAINT: Altered mental state HISTORY OF PRESENT ILLNESS: The patient is an 79-year-old female who today, has been hallucinating. She has been seeing things crawling on the ceilings and the snider. She has seen people in her room. She realizes these things are not real. She also feels that there is hair on her legs and arms although, when she is told there is not, she realizes there is not. She has a headache but this is a chronic issue. She has had no urinary complaints, no vomiting or diarrhea, no change in medications, no chest pain or shortness of breath. PMHx/PSHx/Social Hx: See Below PHYSICAL EXAM: GENERAL: Patient is in no acute distress. HEENT: No acute trauma, normocephalic atraumatic, mucous membranes slightly dry, no nasal congestion. NECK: No stridor, no adenopathy, no meningismus, trachea is midline. LUNGS: Clear to auscultation bilaterally, no wheeze, no rhonchi, breath sounds equal. HEART: Without murmurs gallops or rubs, regular rate and rhythm. ABDOMEN: Soft, nontender, no peritonitis. EXTREMITIES: No cyanosis, full range of motion of all the joints without pain or difficulty. NEUROLOGIC: Awake and alert, no speech slur, no extremity deficit SKIN: No jaundice, no diaphoresis. DIFFERENTIAL DIAGNOSIS: Medication reaction, dehydration, electrolyte imbalance, liver or renal failure, intracranial bleeding, among others. EMERGENCY DEPARTMENT PROCEDURES: MEDICAL DECISION MAKING: There is no leukocytosis. A mild anemia was seen, the anemia is baseline for the patient. There was a normal platelet count. There was some renal insufficiency but this appears baseline. There was no electrolyte abnormality in need of emergent correction. Ammonia level was not elevated. The patient appeared to be in a euthyroid state. No concerning liver enzyme elevation. ECG showed a normal sinus rhythm, no ST elevation. Cardiac enzyme testing x 1 was very slightly elevated. This troponin elevation may be secondary to her renal disease or potentially cardiac injury. Urinalysis does not show infection. Brain CT shows no acute bleed or mass effect. Chest x-ray shows some chronic parenchymal congestion, no focal infiltrate. On exam, the patient did show evidence for visual hallucinations. She was awake and interactive. No focal extremity motor deficits. No speech slur. The cause for her hallucinations is unclear. Nothing found on her workup this evening to explain her current mental state. Given the circumstances, I do think a hospital stay would be warranted. Observation, monitoring, possibly a neurology consult would be reasonable. I spoke with the patient and case management, the on-call hospitalist was consulted. Prior/Outside records/notes reviewed: Today's EMS notes describing her presentation and transport to this hospital. ECG per my interpretation: Indication was altered mental state. The ECG shows a normal sinus rhythm with a rate of 77. There is an old anterior lateral infarct. There is no acute ST elevation, no PVCs. The QTc is 434. Continuous Cardiac Monitoring per my interpretation: An order was placed for continuous cardiac monitoring. The monitor shows a rate of 77 with normal sinus rhythm. Imaging/x-ray results per my interpretation: Chest x-ray shows some diffuse parenchymal congestion, no focal infiltrate. The film looks similar to previous films. Chronic Medical/Social conditions affecting care: Advanced age. Care/Management discussed with: Case management, the on-call hospitalist. Level of care consideration(s): After review of the information above and other included data: --I believe the patient requires escalation of care to admission DISPOSITION: Admission Past Med/Surg History Problem List (Updated 05/06/24 @ 23:38 by Salo Thrasher MD) Anemia (Acute) CRF (chronic renal failure) (Acute) Hallucinations (Acute) Altered mental status (Acute) Interstitial lung disease Titubation Parkinsonism Pulmonary hypertension Chronic respiratory failure with hypoxia Abnormal chest CT Chronic dyspnea Mitral annular calcification Mitral stenosis Hypomagnesemia (Acute) Lumbar spinal stenosis Hypothyroidism History of compression fracture of vertebral column (~12/04/18) Thoracic Pulmonary emphysema Stage 1 skin ulcer of sacral region CKD (chronic kidney disease), stage IV 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, Mobitz type II Peripheral artery disease Prediabetes Iron deficiency anemia Kidney stones (Chronic) Vitamin D deficiency (Acute) Primary hypercoagulable state (Chronic) Osteoporosis (Chronic) History of follicular lymphoma Sensorineural hearing loss (SNHL) of both ears Ataxia Secondary hyperparathyroidism of renal origin Medical History Compression fracture of lumbar spine, non-traumatic (~09/23/23) seeing orthopedics Closed T2 fracture (~10/08/23) Parkinsons disease Type 2 diabetes mellitus without complication HTN (hypertension) DVT (deep venous thrombosis) Hyponatremia Megaloblastic anemia Diet-controlled diabetes mellitus History of ischemic stroke Second degree AV block, Mobitz type I Chronic deep vein thrombosis (DVT) Cardiomyopathy Chronic GERD Chronic fatigue syndrome Chronic laryngitis Cigarette smoker motivated to quit 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 Depression Dermatitis, eczematoid Diabetes mellitus (11/29/12) Hearing loss Hoarseness Ischemic colitis Low back pain NSTEMI (non-ST elevated myocardial infarction) Recurrent UTI SNHL (sensorineural hearing loss) Secondary hyperparathyroidism (of renal origin) Solitary pulmonary nodule Subsequent non-ST elevation (NSTEMI) myocardial infarction Vertigo GERD (gastroesophageal reflux disease) Chronic kidney disease Hypothyroidism (acquired) GI bleed Chronic deep vein thrombosis of left lower extremity Hyperlipidemia Thyroid disease Surgical History History of lumbar laminectomy for spinal cord decompression History of tubal ligation History of D&C History of Hx of colonoscopy Family History Mother Leukemia Hypertension Father Myocardial infarction Diabetes Other Family history non-contributory Denies family history of Ovarian cancer Prostate cancer Breast cancer Lung cancer Social History Smoking Status: Former smoker Tobacco Type: Cigarettes Age Started Using Tobacco: 17; Age Quit Using Tobacco: 73; packs per day: 1; Second Hand Exposure: No; Do You Dip or Chew Tobacco: No; Hx Alcohol Use: No Hx Substance Use: No Preferred Language: Albanian Communication Ability: Effective Visual Impairment: No Limitations Hearing Ability: Use of Hearing Aid Lacquer Sprayer Required: No Beliefs That Will Affect Care: None marital status: Current Living Situation: Alone Current Living Situation Comment: Has caregivers current occupational status: retired 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 Safe at Home: Yes Childhood Exposure to Second-Hand Smoke: Yes Diet: regular caffeine: No Dental Care, Regularly: No Physical Activity Frequency: Does not Exercise Seatbelt Use: always Sunscreen Use: No Do you think of yourself as: straight/heterosexual Gender Identity: Female Assistive Devices: Oxygen - Continuous and Walker Allergies Allergies Allergy/AdvReac Type Severity Reaction Status Date / Time azithromycin [From Zithromax] Allergy Intermediate HIVES Verified 05/01/24 13:37 nitrofurantoin Allergy Intermediate HIVES,ITCHI Verified 05/01/24 13:37 NG tramadol AdvReac Mild nausea Verified 05/01/24 13:37 Home Meds Home Medications Medication Instructions Recorded Confirmed albuterol sulfate 90 mcg/actuation 2 inh inhalation DAILY PRN 11/08/23 05/01/24 aerosol inhaler Shortness Of Breath Or Wheezing apixaban 2.5 mg tablet (Eliquis) 2.5 mg PO Q12 11/08/23 05/01/24 fluticasone propionate 50 2 spray intranasal DAILY PRN 11/08/23 05/01/24 mcg/actuation nasal .allergy symptoms spray,suspension (Flonase Allergy Relief) latanoprost 0.005 % eye drops 1 drp OPB UD 11/08/23 05/01/24 thiamine HCl (vitamin B1) 100 mg 200 mg PO DAILY 01/06/24 05/01/24 tablet mecobalamin (vitamin B12) PO DAILY 03/03/24 05/01/24 pyridoxine (vitamin B6) 100 mg 100 mg PO DAILY 03/03/24 05/01/24 tablet valacyclovir 500 mg tablet 500 mg PO DAILY 03/19/24 05/01/24 Previous Rx's Medication Instructions Recorded acetaminophen 325 mg tablet 650 mg (2 x 325 mg) PO Q6 PRN 11/15/23 (Tylenol) fever or pain #60 tabs famotidine 20 mg tablet 20 mg PO DAILY #90 tabs 12/25/23 folic acid 1 mg tablet 1 mg PO QAM #90 tabs 12/25/23 carbidopa 10 mg-levodopa 100 mg 2 tab PO QID 30 days #240 tabs 01/29/24 tablet atorvastatin 80 mg tablet See Rx Instructions .Route 03/06/24 .COMPLEX #90 tabs levothyroxine 88 mcg tablet 88 mcg PO DAILY #90 tabs 03/06/24 furosemide 20 mg tablet (Lasix) 20 mg PO DAILY PRN edema, weight 03/16/24 gain, SOB #15 tabs duloxetine 30 mg capsule,delayed 30 mg PO DAILY #90 caps 04/06/24 release doxycycline monohydrate 100 mg 100 mg PO BID 10 days #20 caps 04/20/24 capsule Results & Data (ED) Vital Signs Vital Signs - 24 hr 05/06/24 20:53 05/06/24 20:53 05/06/24 21:03 Temperature 36.5 C Temperature Source Oral Pulse Rate 84 Pulse Rate [Left Finger] Pulse Rhythm Regular Pulse Strength Normal Respiratory Rate 18 Respiratory Effort / Characteristics Non-Labored Respiratory Depth Normal Respiratory Pattern Regular Blood Pressure 139/68 Blood Pressure [Right Arm] Blood Pressure Mean 91 Blood Pressure Mean [Right Arm] Pulse Oximetry 99 90 98 Oxygen Delivery Method Nasal Cannula Room Air Nasal Cannula Oxygen Flow Rate 3 3 Sepsis Recent Fever Within 48 Hours No Sepsis New/Unexplained Change in Mental Status N/A Sepsis Action Taken by Nursing No Action Required Oxygen Flow Rate - Titration 3 Pulse Oximetry Post Tiitration 99 05/06/24 21:15 05/06/24 21:19 05/06/24 23:16 Temperature 36.7 C Temperature Source Oral Pulse Rate 77 Pulse Rate [Left Finger] 76 Pulse Rhythm Pulse Strength Respiratory Rate 24 Respiratory Effort / Characteristics Respiratory Depth Respiratory Pattern Blood Pressure Blood Pressure [Right Arm] 155/68 H Blood Pressure Mean Blood Pressure Mean [Right Arm] 97 Pulse Oximetry 98 100 Oxygen Delivery Method Nasal Cannula Nasal Cannula Oxygen Flow Rate 3 2 Sepsis Recent Fever Within 48 Hours Sepsis New/Unexplained Change in Mental Status Sepsis Action Taken by Nursing Oxygen Flow Rate - Titration Pulse Oximetry Post Tiitration Home Medications Current Medication List: was personally reviewed by me Laboratory Data Attestation: I reviewed the patient's lab results. 05/06/24 20:55 05/06/24 20:55 Lab Results 05/06/24 05/06/24 Range/Units 20:55 21:55 WBC 6.34 (4.8-10.8) K/ul RBC 3.04 L (4.20-5.40) M/uL Hgb 11.0 L (12.0-16.0) g/dl Hct 34.6 L (37.0-47.0) % MCV 113.8 H (80.0-100.0) fL MCH 36.2 H (25.0-34.0) pg MCHC 31.8 L (32.0-36.0) g/dL RDW Std Deviation 51.8 H (36.4-46.3) fL RDW Coeff of [place]aimen 12.3 (11.5-14.5) % Plt Count 205 (130-400) K/uL MPV 10.6 (9.4-12.4) fL Immature Gran % (Auto) 0.3 % Neut % (Auto) 53.2 % Lymph % (Auto) 36.9 % [place] % (Auto) 6.3 % Eos % (Auto) 2.7 % Baso % (Auto) 0.6 % Neut # (Auto) 3.37 (1.40-6.50) K/uL Lymph # (Auto) 2.34 (1.20-3.40) K/uL [place] # (Auto) 0.40 (0.11-0.59) K/uL Eos # (Auto) 0.17 (0.00-0.50) K/uL Baso # (Auto) 0.04 (0.00-0.20) K/uL Immature Gran # (Auto) 0.02 (0.01-0.20) K/uL Polychromasia 1+ Macrocytosis Present Stomatocytes 1+ Sodium 138 (136-145) mmol/L Potassium 4.4 (3.5-5.1) mmol/L Chloride 100 (98-107) mmol/L Carbon Dioxide 34 H (21-32) mmol/L Anion Gap 4 (3-11) BUN 24 H (6-23) mg/dl Creatinine 1.56 H (0.6-1.2) mg/dl Est Cr Clr Drug Dosing 18.0 ml/min eGFR 33.19 BUN/Creatinine Ratio 15.4 (10-20) Glucose 103 H (70-99(Fasting)) mg/dl Calcium 9.8 (8.6-10.3) mg/dl Magnesium 1.7 (1.7-2.4) mg/dl Total Bilirubin 0.5 (0.2-1.0) mg/dl AST 23 (13-39) U/L ALT 6 L (7-52) U/L Alkaline Phosphatase 73 (34-104) U/L Ammonia < 10.0 L (18-72) umol/L Troponin I High Sens 17.2 H (0-14) pg/ml Total Protein 6.5 (6.0-8.3) gm/dl Albumin 3.8 (3.4-5.0) gm/dl Globulin 2.7 (2.5-4.0) gm/dl Albumin/Globulin Ratio 1.4 (0.9-2) TSH 0.999 (0.300-4.500) uIu/ml Urine Color Yellow Urine Appearance Clear (Clear) Urine pH 6.5 (4.5-7.5) Ur Specific [place] 1.008 (1.000-1.030) Urine Protein Negative (Negative) Urine Glucose (UA) Negative (Negative) Urine Ketones Negative (Negative) Urine Blood Negative (Negative) Urine Nitrite Negative (Negative) Urine Bilirubin Negative (Negative) Urine Urobilinogen Negative (Negative) Ur Leukocyte Esterase Negative (Negative) Imaging Data Radiologist's Impression: Chest X-Ray 05/06/24 21:15 Exam(s): XR CXR 1 VIEW EXAM: XR Chest, 1 View CLINICAL HISTORY: Reason for exam: weakness. TECHNIQUE: Frontal view of the chest. COMPARISON: Chest [place] [id number] FINDINGS: Lungs: Hypoinflated lungs with interstitial fibrotic changes again visualized. No consolidation. Pleural space: No pleural effusion. No pneumothorax. Heart: Unremarkable. No cardiomegaly. IMPRESSION: Hypoinflated lungs with interstitial fibrotic changes again visualized. Electronically signed by: Ahsan Nieto MD 05/06/24 22:[address] 05/06/24 21:16 Exam(s): CT HEAD Without Contrast EXAM: CT Head Without Intravenous Contrast CLINICAL HISTORY: Reason for exam: hallucinations. TECHNIQUE: Axial computed tomography images of the head/brain without intravenous contrast. CTDI is 38.49 mGy and DLP is 625.8 mGy-cm. Automated exposure control was utilized for the study. A dose lowering technique was utilized adhering to the principles of ALARA. COMPARISON: MRI brain 11/08/2023 FINDINGS: Brain: No intracranial hemorrhage, mass-effect, or cerebral edema. Global parenchymal atrophy. Periventricular and subcortical low attenuation which is nonspecific but favored to represent chronic microvascular ischemic changes. Ventricles: Unremarkable. Bones/joints: Unremarkable. No fracture. Soft tissues: Unremarkable. Sinuses: No acute sinusitis. Mastoid air cells: Unremarkable as visualized. IMPRESSION: No acute intracranial abnormality. Electronically signed by: Ahsan Nieto MD 05/06/24 22:09 PM Discharge Plan Visit Data Chief Complaint: Altered Mental Status Stated Complaint: AMS ED Provider: Salo Thrasher Discharge Problem: Altered mental status, Hallucinations, CRF (chronic renal failure), Anemia Patient Disposition: Admitted As Inpatient Condition: Fair Forms Stand Alone Forms: My [facility] Prescriptions Prescriptions: No Action famotidine 20 mg tablet 20 mg PO DAILY Qty: 90 3RF folic acid 1 mg tablet 1 mg PO QAM Qty: 90 3RF carbidopa-levodopa 10-100 mg tablet 2 tab PO QID 30 Days Qty: 240 5RF atorvastatin 80 mg tablet See Rx Instructions .ROUTE .COMPLEX Qty: 90 3RF Dose Instruction: TAKE 1 TABLET BY MOUTH AT BEDTIME Rx Instructions: TAKE 1 TABLET BY MOUTH AT BEDTIME levothyroxine 88 mcg tablet 88 mcg PO DAILY Qty: 90 3RF Rx Instructions: 88 mcg po qam last filled 12/02 30 day supply duloxetine 30 mg capsule,delayed release(DR/EC) 30 mg PO DAILY Qty: 90 3RF thiamine HCl (vitamin B1) 100 mg tablet 200 mg PO DAILY furosemide [Lasix] 20 mg tablet 20 mg PO DAILY PRN (Reason: edema, weight gain, SOB) Qty: 15 2RF doxycycline monohydrate 100 mg capsule 100 mg PO BID 10 Days Qty: 20 0RF mecobalamin (vitamin B12) PO DAILY pyridoxine (vitamin B6) 100 mg tablet 100 mg PO DAILY latanoprost 0.005 % drops 1 drp OPB UD Rx Instructions: 1 drop eye hs last filled 12/02 25 day supply albuterol sulfate 90 mcg/actuation Hfa Aerosol Inhaler 2 inh INHALATION DAILY PRN (Reason: Shortness Of Breath Or Wheezing) fluticasone propionate [Flonase Allergy Relief] 50 mcg/actuation [place],Suspension 2 spray INTRANASAL DAILY PRN (Reason: .allergy symptoms) Rx Instructions: administer into each nostril Eliquis 2.5 mg tablet 2.5 mg PO Q12 acetaminophen [Tylenol] 325 mg Tablet 650 mg PO Q6 PRN (Reason: fever or pain) Qty: 60 0RF Rx Instructions: OTC unable to verify 02/24 valacyclovir 500 mg tablet 500 mg PO DAILY Referrals Referrals: Katarina Peters DO [Primary Care Provider] - Discharge Problem: Altered mental status Qualifiers: Altered mental status type: unspecified Qualified Code(s): R41.82 - Altered mental status, unspecified CRF (chronic renal failure) Qualifiers: Chronic kidney disease stage: unspecified stage Qualified Code(s): N18.9 - Chronic kidney disease, unspecified Anemia Qualifiers: Anemia type: unspecified type Qualified Code(s): D64.9 - Anemia, unspecified
--- NOTE | 2024-05-06 22:49 | XRay Report ---
Exam(s): XR CXR 1 VIEW EXAM: XR Chest, 1 View CLINICAL HISTORY: Reason for exam: weakness. TECHNIQUE: Frontal view of the chest. COMPARISON: Chest [place] [id number] FINDINGS: Lungs: Hypoinflated lungs with interstitial fibrotic changes again visualized. No consolidation. Pleural space: No pleural effusion. No pneumothorax. Heart: Unremarkable. No cardiomegaly. IMPRESSION: Hypoinflated lungs with interstitial fibrotic changes again visualized. Electronically signed by: Ahsan Nieto MD 05/06/24 22:48 PM
--- NOTE | 2024-05-06 23:59 | History & Physical Report ---
Date of Service May 06, 2024 Assessment & Plan (1) Hallucinations: Plan: 79yo female with history of HTN, DM, GERD and DVT presenting with hallucinations. Patient with one day of hallucinations. Additionally complaining of some mild respiratory symptoms. 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 Did have hallucinations on one prior occasion while being hospitalized. Workup thus far largely unremarkable - no evidence of electrolyte abnormality or infection, imaging is unremarkable. Patient attentive and answering questions appropriately at present. Does not seem to be delirious. Ddx to include Parkinson associated hallucinations, ?URI contributing? -Observation to medical -Check B12 level, respiratory biofire panel -Frequent orientation and delirium prevention strategies Plan Chronic Medical Conditions: Prior VTE -Continue Apixaban 2.5mg po BID Parkinsons -Continue Carbidopa/Levodopa -If persistent hallucinations would consider Neurology consultation Hypothyroidism -Continue Synthroid Emphysema - patient follows with Pulmonary -Biofire ordered -Albuterol PRN History of Present Illness Chief Complaint: hallucinations Primary Care Provider: DO Elyse Russo Chris is an 79yo female with history of DM, HTN, DVT on Eliquis and Parkinson's presenting with hallucinations. Patient reports a mild cough, congestion and headache ongoing for the last several days. Yesterday she woke up from sleep and began having some hallucinations. Nausea with several episodes of vomiting yesterday as well. She saw people in her living room and bathroom and saw hair growing on her ceili ng and snider as well as her arms and legs. No additional complaints. Specifically denies fever, chest pain, diarrhea. No numbness/tingling/weakness. 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 Per note review 04/22/24 - patient does NOT have significant degenerative dementia. She has been hospitalized in the past for metabolic encephalopathy. She had an episode of hallucinations during a prior hospitalization - patient reports that this was in the context of receiving a medication, she believes may have been Oxycodone. In the ER she is afebrile, HD stable Allergies Allergy/AdvReac Type Severity Reaction Status Date / Time azithromycin [From Zithromax] Allergy Intermediate HIVES Verified 05/01/24 13:37 nitrofurantoin Allergy Intermediate HIVES,ITCHI Verified 05/01/24 13:37 NG tramadol AdvReac Mild nausea Verified 05/01/24 13:37 Home Medications Medication Instructions Recorded Confirmed Type albuterol sulfate 90 mcg/actuation 2 inh inhalation DAILY PRN 11/08/23 05/06/24 History aerosol inhaler Shortness Of Breath Or Wheezing apixaban 2.5 mg tablet (Eliquis) 2.5 mg PO Q12 11/08/23 05/06/24 History fluticasone propionate 50 2 spray intranasal DAILY PRN 11/08/23 05/01/24 History mcg/actuation nasal .allergy symptoms spray,suspension (Flonase Allergy Relief) latanoprost 0.005 % eye drops 1 drp OPB UD 11/08/23 05/01/24 History acetaminophen 325 mg tablet 650 mg (2 x 325 mg) PO Q6 PRN 11/15/23 05/06/24 Rx (Tylenol) fever or pain #60 tabs famotidine 20 mg tablet 20 mg PO DAILY #90 tabs 12/25/23 05/06/24 Rx folic acid 1 mg tablet 1 mg PO QAM #90 tabs 12/25/23 05/06/24 Rx thiamine HCl (vitamin B1) 100 mg 200 mg PO DAILY 01/06/24 05/06/24 History tablet carbidopa 10 mg-levodopa 100 mg 2 tab PO QID 30 days #240 tabs 01/29/24 05/06/24 Rx tablet mecobalamin (vitamin B12) 1,000 mcg PO DAILY 03/03/24 05/06/24 History pyridoxine (vitamin B6) 100 mg 100 mg PO DAILY 03/03/24 05/06/24 History tablet levothyroxine 88 mcg tablet 88 mcg PO DAILY #90 tabs 03/06/24 05/06/24 Rx furosemide 20 mg tablet (Lasix) 20 mg PO DAILY PRN edema, weight 03/16/24 05/01/24 Rx gain, SOB #15 tabs valacyclovir 500 mg tablet 500 mg PO DAILY 03/19/24 05/06/24 History duloxetine 30 mg capsule,delayed 30 mg PO DAILY #90 caps 04/06/24 05/06/24 Rx release doxycycline monohydrate 100 mg 100 mg PO BID 10 days #20 caps 04/20/24 05/01/24 Rx capsule atorvastatin 80 mg tablet 80 mg PO HS 05/06/24 05/06/24 History Past Med/Surg History Problem List Anemia (Acute) CRF (chronic renal failure) (Acute) Hallucinations (Acute) Altered mental status (Acute) Interstitial lung disease Titubation Parkinsonism Pulmonary hypertension Chronic respiratory failure with hypoxia Abnormal chest CT Chronic dyspnea Mitral annular calcification Mitral stenosis Hypomagnesemia (Acute) Lumbar spinal stenosis Hypothyroidism History of compression fracture of vertebral column (~12/04/18) Thoracic Pulmonary emphysema Stage 1 skin ulcer of sacral region CKD (chronic kidney disease), stage IV 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, Mobitz type II Peripheral artery disease Prediabetes Iron deficiency anemia Kidney stones (Chronic) Vitamin D deficiency (Acute) Primary hypercoagulable state (Chronic) Osteoporosis (Chronic) History of follicular lymphoma Sensorineural hearing loss (SNHL) of both ears Ataxia Secondary hyperparathyroidism of renal origin Medical History Compression fracture of lumbar spine, non-traumatic (~09/23/23) seeing orthopedics Closed T2 fracture (~10/08/23) Parkinsons disease Type 2 diabetes mellitus without complication HTN (hypertension) DVT (deep venous thrombosis) Hyponatremia Megaloblastic anemia Diet-controlled diabetes mellitus History of ischemic stroke Second degree AV block, Mobitz type I Chronic deep vein thrombosis (DVT) Cardiomyopathy Chronic GERD Chronic fatigue syndrome Chronic laryngitis Cigarette smoker motivated to quit 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 Depression Dermatitis, eczematoid Diabetes mellitus (11/29/12) Hearing loss Hoarseness Ischemic colitis Low back pain NSTEMI (non-ST elevated myocardial infarction) Recurrent UTI SNHL (sensorineural hearing loss) Secondary hyperparathyroidism (of renal origin) Solitary pulmonary nodule Subsequent non-ST elevation (NSTEMI) myocardial infarction Vertigo GERD (gastroesophageal reflux disease) Chronic kidney disease Hypothyroidism (acquired) GI bleed Chronic deep vein thrombosis of left lower extremity Hyperlipidemia Thyroid disease Surgical History History of lumbar laminectomy for spinal cord decompression History of tubal ligation History of D&C History of Hx of colonoscopy Family History Mother , age 76 with leukemia Leukemia Hypertension Father , age 86 with heart issues Myocardial infarction Diabetes Other Family history non-contributory Denies family history of Ovarian cancer Prostate cancer Breast cancer Lung cancer Social History Smoking Status: Former smoker Tobacco Type: Cigarettes Age Started Using Tobacco: 17; Age Quit Using Tobacco: 73; packs per day: 1; Second Hand Exposure: No; Do You Dip or Chew Tobacco: No; Hx Alcohol Use: No Hx Substance Use: No Preferred Language: Slovenian Communication Ability: Effective Visual Impairment: No Limitations Hearing Ability: Use of Hearing Aid Sack Department Supervisor Required: No Beliefs That Will Affect Care: None marital status: Current Living Situation: Alone Current Living Situation Comment: Has caregivers current occupational status: retired 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 Safe at Home: Yes Childhood Exposure to Second-Hand Smoke: Yes Diet: regular caffeine: No Dental Care, Regularly: No Physical Activity Frequency: Does not Exercise Seatbelt Use: always Sunscreen Use: No Do you think of yourself as: straight/heterosexual Gender Identity: Female Assistive Devices: Oxygen - Continuous and Walker Review of Systems Review of Systems: All systems reviewed & are unremarkable except as noted in HPI & below Physical Exam Physical Exam: General: patient resting comfortably, NAD, non-toxic in appearance, AA&O x 4 Skin: warm, dry, intact, no rashes or lesions HEENT: NC/AT, PERRL, EOMI, anicteric sclera, conjunctiva without injection, external ear normal to inspection and nontender, nares patent, moist mucus membranes, dentition intact, no oropharyngeal lesions, neck supple, trachea midline, no LAD, no thyromegaly, no JVD Heart: +S1/S2, regular, no m/r/g Lungs: equal air entry bilaterally, no rales/rhonchi/wheezes Abd: +BS, soft, NT/ND, no masses/organomegaly/ascites Ext: warm, 2+ pulses in UE/LE bilaterally, no clubbing/cyanosis or edema Neuro: nonfocal, patient AA&O x 4, speech intact, no facial droop, moving all extremities on command with equal strength 5/5 Results & Data Results & Data Vital Signs (Past 12 Hours) Vital Signs Temp Pulse Pulse Resp BP BP Pulse Ox 05/06/24 23:16 36.7 C 76 24 155/68 H 100 05/06/24 21:19 77 05/06/24 21:15 98 05/06/24 21:03 98 05/06/24 20:53 90 05/06/24 20:53 36.5 C 84 18 139/68 99 O2 Del Method O2 Flow Rate 05/06/24 23:16 Nasal Cannula 2 05/06/24 21:19 05/06/24 21:15 Nasal Cannula 3 05/06/24 21:03 Nasal Cannula 3 05/06/24 20:53 Room Air 05/06/24 20:53 Nasal Cannula 3 Laboratory Results Laboratory Results WBC 6.34 K/ul (4.8-10.8) 05/06/24 20:55 RBC 3.04 M/uL (4.20-5.40) L 05/06/24 20:55 Hgb 11.0 g/dl (12.0-16.0) L 05/06/24 20:55 Hct 34.6 % (37.0-47.0) L 05/06/24 20:55 MCV 113.8 fL (80.0-100.0) H 05/06/24 20:55 MCH 36.2 pg (25.0-34.0) H 05/06/24 20:55 MCHC 31.8 g/dL (32.0-36.0) L 05/06/24 20:55 RDW Std Deviation 51.8 fL (36.4-46.3) H 05/06/24 20:55 RDW Coeff of Damein 12.3 % (11.5-14.5) 05/06/24 20:55 Plt Count 205 K/uL (130-400) 05/06/24 20:55 MPV 10.6 fL (9.4-12.4) 05/06/24 20:55 Immature Gran % (Auto) 0.3 % 05/06/24 20:55 Neut % (Auto) 53.2 % 05/06/24 20:55 Lymph % (Auto) 36.9 % 05/06/24 20:55 Garza % (Auto) 6.3 % 05/06/24 20:55 Eos % (Auto) 2.7 % 05/06/24 20:55 Baso % (Auto) 0.6 % 05/06/24 20:55 Neut # (Auto) 3.37 K/uL (1.40-6.50) 05/06/24 20:55 Lymph # (Auto) 2.34 K/uL (1.20-3.40) 05/06/24 20:55 Garza # (Auto) 0.40 K/uL (0.11-0.59) 05/06/24 20:55 Eos # (Auto) 0.17 K/uL (0.00-0.50) 05/06/24 20:55 Baso # (Auto) 0.04 K/uL (0.00-0.20) 05/06/24 20:55 Immature Gran # (Auto) 0.02 K/uL (0.01-0.20) 05/06/24 20:55 Polychromasia 1+ 05/06/24 20:55 Macrocytosis Present 05/06/24 20:55 Stomatocytes 1+ 05/06/24 20:55 Sodium 138 mmol/L (136-145) 05/06/24 20:55 Potassium 4.4 mmol/L (3.5-5.1) 05/06/24 20:55 Chloride 100 mmol/L (98-107) 05/06/24 20:55 Carbon Dioxide 34 mmol/L (21-32) H 05/06/24 20:55 Anion Gap 4 (3-11) 05/06/24 20:55 BUN 24 mg/dl (6-23) H 05/06/24 20:55 Creatinine 1.56 mg/dl (0.6-1.2) H 05/06/24 20:55 Est Cr Clr Drug Dosing 18.0 ml/min 05/06/24 20:55 eGFR 33.19 05/06/24 20:55 BUN/Creatinine Ratio 15.4 (10-20) 05/06/24 20:55 Glucose 103 mg/dl (70-99(Fasting)) H 05/06/24 20:55 Calcium 9.8 mg/dl (8.6-10.3) 05/06/24 20:55 Magnesium 1.7 mg/dl (1.7-2.4) 05/06/24 20:55 Total Bilirubin 0.5 mg/dl (0.2-1.0) 05/06/24 20:55 AST 23 U/L (13-39) 05/06/24 20:55 ALT 6 U/L (7-52) L 05/06/24 20:55 Alkaline Phosphatase 73 U/L (34-104) 05/06/24 20:55 Ammonia < 10.0 umol/L (18-72) L 05/06/24 21:55 Troponin I High Sens 17.2 pg/ml (0-14) H 05/06/24 20:55 Total Protein 6.5 gm/dl (6.0-8.3) 05/06/24 20:55 Albumin 3.8 gm/dl (3.4-5.0) 05/06/24 20:55 Globulin 2.7 gm/dl (2.5-4.0) 05/06/24 20: Albumin/Globulin Ratio 1.4 (0.9-2) 05/06/24 20:55 TSH 0.999 uIu/ml (0.300-4.500) 05/06/24 20:55 Urine Color Yellow 05/06/24 21:55 Urine Appearance Clear (Clear) 05/06/24 21:55 Urine pH 6.5 (4.5-7.5) 05/06/24 21:55 Ur Specific Chrisman 1.008 (1.000-1.030) 05/06/24 21:55 Urine Protein Negative (Negative) 05/06/24 21:55 Urine Glucose (UA) Negative (Negative) 05/06/24 21:55 Urine Ketones Negative (Negative) 05/06/24 21:55 Urine Blood Negative (Negative) 05/06/24 21: Urine Nitrite Negative (Negative) 05/06/24 21:55 Urine Bilirubin Negative (Negative) 05/06/24 21:55 Urine Urobilinogen Negative (Negative) 05/06/24 21:55 Ur Leukocyte Esterase Negative (Negative) 05/06/24 21:55 Impressions Chest X-Ray 05/06/24 21:15 Exam(s): XR CXR 1 VIEW EXAM: XR Chest, 1 View CLINICAL HISTORY: Reason for exam: weakness. TECHNIQUE: Frontal view of the chest. COMPARISON: Chest [place] [id number] FINDINGS: Lungs: Hypoinflated lungs with interstitial fibrotic changes again visualized. No consolidation. Pleural space: No pleural effusion. No pneumothorax. Heart: Unremarkable. No cardiomegaly. IMPRESSION: Hypoinflated lungs with interstitial fibrotic changes again visualized. Electronically signed by: Ahsan Nieto MD 05/06/24 22:[address] 05/06/24 21:16 Exam(s): CT HEAD Without Contrast EXAM: CT Head Without Intravenous Contrast CLINICAL HISTORY: Reason for exam: hallucinations. TECHNIQUE: Axial computed tomography images of the head/brain without intravenous contrast. CTDI is 38.49 mGy and DLP is 625.8 mGy-cm. Automated exposure control was utilized for the study. A dose lowering technique was utilized adhering to the principles of ALARA. COMPARISON: MRI brain 11/08/2023 FINDINGS: Brain: No intracranial hemorrhage, mass-effect, or cerebral edema. Global parenchymal atrophy. Periventricular and subcortical low attenuation which is nonspecific but favored to represent chronic microvascular ischemic changes. Ventricles: Unremarkable. Bones/joints: Unremarkable. No fracture. Soft tissues: Unremarkable. Sinuses: No acute sinusitis. Mastoid air cells: Unremarkable as visualized. IMPRESSION: No acute intracranial abnormality. Electronically signed by: Ahsan Nieto MD 05/06/24 22:09 PM Code Status & VTE Plan VTE Prophylaxis Plan VTE Prophylaxis will be ordered: Yes PG Care Time/CCT Total # of Minutes Spent Total Time Spent with Patient: Total time spent is greater than 50% in coordination of care (as documented) at patient's floor/unit and/or counseling patient: Coding Level of Care Code 00387 INT INP/OBS CARE 2/55MIN Diagnoses Hallucinations R44.3
[2024-05-07] MEDS ORDERED: ALBUTEROL HFA 8 GM INHALER INH PRN (00:52)
[2024-05-07] MEDS ORDERED: ONDANSETRON INJ 2 MG/ML 2 ML VIAL IV PRN (00:52)
[2024-05-07 00:59] LABS: Adenovirus PCR Not Detected (NotDetected); Bordetella parapertussis PCR Not Detected (NotDetected); Bordetella pertussis PCR Not Detected (NotDetected); Chlamydia pneumoniae PCR Not Detected (NotDetected); Coronavirus 229E PCR Not Detected (NotDetected); Coronavirus CoV-2 (COVID19)PCR Not Detected (NotDetected); Coronavirus HKU1 PCR Not Detected (NotDetected); Coronavirus NL63 PCR Not Detected (NotDetected); Coronavirus OC43PCR Not Detected (NotDetected); Human Metapneumovirus PCR Not Detected (NotDetected); Influenza A PCR Not Detected (NotDetected); Influenza B PCR Not Detected (NotDetected); Mycoplasma pneumoniae PCR Not Detected (NotDetected); Parainfluenza Virus 1 PCR Not Detected (NotDetected); Parainfluenza Virus 2 PCR Not Detected (NotDetected); Parainfluenza Virus 3 PCR Not Detected (NotDetected); Parainfluenza Virus 4 PCR Not Detected (NotDetected); Respiratory Syncytial VirusPCR Not Detected (NotDetected); Rhinovirus/Enterovirus PCR Not Detected (NotDetected)
[2024-05-07 01:58] LABS: Hemoglobin 10.5 g/dl (12.0-16.0); Mean Corpuscular Hemoglobin 36.6 pg (25.0-34.0); Mean Corpuscular Hgb Conc 31.8 g/dL (32.0-36.0); Mean Platelet Volume 10.8 fL (9.4-12.4); Platelet Count 194 K/uL (130-400); RDW Coefficient of Variation 12.3 % (11.5-14.5); RDW Standard Deviation 52.9 fL (36.4-46.3); Red Blood Count 2.87 M/uL (4.20-5.40); White Blood Count 4.97 K/ul (4.8-10.8)
[2024-05-07 02:14] LABS: BUN Creatinine Ratio 13.8 (10-20); Calcium 9.3 mg/dl (8.6-10.3); Creatinine Clr Calc Pharmacy 16.6 ml/min; Potassium 3.8 mmol/L (3.5-5.1)
[2024-05-07] MEDS: LEVOTHYROXINE SODIUM 88 MCG TABLET PO SCH (05:26)
[2024-05-07] MEDS: FOLIC ACID 1 MG TAB PO SCH (07:28)
[2024-05-07] MEDS: DULoxetine HCL 30 MG CAP PO SCH (07:28)
[2024-05-07] MEDS: valACYclovir HCL 500 MG TABLET PO SCH (07:29)
[2024-05-07] MEDS: FAMOTIDINE 20 MG TAB PO SCH (07:29)
[2024-05-07] MEDS: CARBIDOPA/LEVODOP 10/100MG TAB PO SCH (07:29)
[2024-05-07] MEDS: APIXABAN 2.5 MG TAB PO SCH (07:30)
--- NOTE | 2024-05-07 07:53 | Hospitalist Progress Note ---
Date of Service May 07, 2024 Assessment & Plan (1) Hallucinations: Plan: 79yo female with history of HTN, DM, GERD and DVT presenting with hallucinations. Patient with one day of hallucinations. Additionally complaining of some mild respiratory symptoms. 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 Did have hallucinations on one prior occasion while being hospitalized. Workup thus far largely unremarkable - no evidence of electrolyte abnormality or infection, imaging is unremarkable. Patient attentive and answering questions appropriately at present. Does not seem to be delirious. Ddx to include Parkinson associated hallucinations, ?URI contributing? Observation to medical CT head negative for acute intracranial abn CXR w/ hypoinflated lungs w/ interstitial fibrotic changes (notable CT chest last week noting findings c/w chronic interstitial lung disease, resembling usual interstitial pneumonia (also notes b/l nonobstructing renal calculi)) UA not appearing infected B12 >1500, prior folate >22 in November. Ammonia >10 TSH 0.99 Biofire NEGATIVE Lyme NEGATIVE B1 pending however is on daily supp. Prior level in system ELEVATED and not low but ?if was given replacement first *Noting CO2 35 on AM labs, ?having CO2 retention leading to increased SOB/confusion/hallucinations. Prior admission in Spring w/ similar hallucinations w/ pCO2 56 at that time. VBG obtained, pH 7.35, pCO2 66 -->Does follow w/ CHF clinic, dry weight per note ~110, presently reported at 114lb. (Last echo noting moderate mitral stenosis but normal EF) Will attempt diamox 250mg PO x 2 doses for today, monitor BMP/VBG in AM. Hold off lasix for now but will add daily standing scale weights, monitor I&O and volume status in am (also checking BNP w/ AM labs for comparison) Continue frequent orientation and delirium prevention strategies Will place PT/OT consults to ensure no needs at home as LIVES ALONE ? able to dc 05/08, but if ongoing issues will consider reaching out to Dr Awad about her Sinemet (however reporting has been very helpful for her sx w/ tremor) (2) Chronic respiratory failure with hypoxia: Plan: follows with [facility], just saw last week and noted had been using 3-4L NC w/ prior 2L needs CT chest noted from this past week, biofire negative. ?no note about any need for abx for "UIP" noted. Consider reaching out Bicarb elevation on BMP w/ VBG noting CO2 retention. Attempting diamox as above (avoiding lasix for now) given weight up as well to see if assists/contribtuing to sx. could consider once daily if needed as well but also discussed making sure only on Oyxgen at level needed to maintain sats and AVOID over oxygenation Presently down to 2L w/ SpO2 sat 99% and will monitor. added/continue IS. Monitor (3) Parkinsonism: Plan: home meds continued, follows w/ Dr Awad. Consideration to reach out if ongoing issues for ?relation to her carbidopa (however again noting patient/daughter has helped her other symptoms w tremor) (4) Hypothyroidism: Plan: TSH wnl on check. continues on home Synthroid Plan DVT proph: Continues on eliquis 2.5mg BID for hx VTE Admission and Anticipated Discharge Date Admission Date: May 06, 2024 Supervising Physician Co-Signing Physician Notes The patient was not seen by me. The chart was reviewed. Case discussed with NATI Pisano. Agree with assessment and plan Subjective EValuated this morning, daughter at bedside. Did feel like having hallucinations of hair growing on her arms/legs last evening when called her daughter to tell her they were keeping her for observation. Baseline SOB, on O2 but was up recently with needs and currently 99% on 2L. Elyse does report she checks her oxygen levels at home and does take the O2 off at times. Discussed with her headache/visual symptoms and resp failure, checking VBG to see if maybe CO2 retention contributing given elevated bicarb on chemistries this morning. VBG with pH 7.35, pCO2 66. Discussed w/ her CHF and prn lasix that we will try dose diamox to see if able to pull off but also titrate O2 to lowest possible setting per needs. Good appetite, req crackers/peanut butter prior to lunch. Daughter updated at bedside, consideration to reach out to neuro if needing adj to parkinson medication but reports tremor had been much improved. Questions/concerns addressed at this time. Hopeful dc in AM if diamox effective and labs improved/no further hallucinations. Physical Exam Physical Exam: General: frail elderly 79yo female sitting up in bed, telling me about her hallucinations at home and last night (but also seeing bubbles in her water cup), NAD, daughter at bedside HEENT: head atraumatic, normocephalic, mmm, trachea midline Resp: faint crackles bilaterally but no overt wheezing, on 2L NC 99% and no signifciant cough/sputum production. able to speak in complete sentences CV: RRR, faint systolic murmur, baseline edema R>L but pulses present GI: +BS, soft/NT no zepeda MSK/Neuro: answering questions appropriately, no slurred speech, moves all extremities Psych: Alert to person/place/time, intermittent hallucinations Results & Data Results & Data Vital Signs (Past 12 Hours) Vital Signs Temp Pulse Pulse Resp BP BP Pulse Ox 05/07/24 07:35 36.7 C 81 18 149/72 H 99 05/07/24 01:25 05/07/24 00:52 36.3 C L 68 20 185/69 H 100 05/07/24 00:35 36.9 C 76 20 143/67 H 100 05/07/24 00:12 78 20 147/76 H 100 05/06/24 23:16 36.7 C 76 24 155/68 H 100 05/06/24 21:19 77 05/06/24 21:15 98 05/06/24 21:03 98 05/06/24 20:53 90 05/06/24 20:53 36.5 C 84 18 139/68 99 O2 Del Method O2 Flow Rate 05/07/24 07:35 Nasal Cannula 2 05/07/24 01:25 Room Air, Nasal Cannula 2 05/07/24 00:52 Nasal Cannula 2 05/07/24 00:35 Nasal Cannula 2 05/07/24 00:12 Nasal Cannula 2 05/06/24 23:16 Nasal Cannula 2 05/06/24 21:19 05/06/24 21:15 Nasal Cannula 3 05/06/24 21:03 Nasal Cannula 3 05/06/24 20:53 Room Air 05/06/24 20:53 Nasal Cannula 3 Laboratory Results 05/07/24 05/07/24 05/07/24 Range/Units 09:55 01:42 01:03 WBC 4.97 (4.8-10.8) K/ul RBC 2.87 L (4.20-5.40) M/uL Hgb 10.5 L (12.0-16.0) g/dl Hct 33.0 L (37.0-47.0) % MCV 115.0 H (80.0-100.0) fL MCH 36.6 H (25.0-34.0) pg MCHC 31.8 L (32.0-36.0) g/dL RDW Std Deviation 52.9 H (36.4-46.3) fL RDW Coeff of Damien 12.3 (11.5-14.5) % Plt Count 194 (130-400) K/uL MPV 10.8 (9.4-12.4) fL Immature Gran % (Auto) % Neut % (Auto) % Lymph % (Auto) % [place] % (Auto) % Eos % (Auto) % Baso % (Auto) % Neut # (Auto) (1.40-6.50) K/uL Lymph # (Auto) (1.20-3.40) K/uL [place] # (Auto) (0.11-0.59) K/uL Eos # (Auto) (0.00-0.50) K/uL Baso # (Auto) (0.00-0.20) K/uL Immature Gran # (Auto) (0.01-0.20) K/uL Polychromasia Macrocytosis Stomatocytes VBG pH 7.35 L (7.36-7.41) VBG pCO2 66 H (38-50) mmHg VBG pO2 25 mmHg VBG HCO3 36 mmol/L VBG O2 Saturation < 60.0 % VBG Base Excess 8.3 mEq/L Sodium 140 (136-145) mmol/L Potassium 3.8 (3.5-5.1) mmol/L Chloride 102 (98-107) mmol/L Carbon Dioxide 35 H (21-32) mmol/L Anion Gap 3 (3-11) BUN 23 (6-23) mg/dl Creatinine 1.67 H (0.6-1.2) mg/dl Est Cr Clr Drug Dosing 16.6 ml/min eGFR 30.59 BUN/Creatinine Ratio 13.8 (10-20) Glucose 97 (70-99(Fasting)) mg/dl POC Glucose 115 H (70-99) mg/dl Calcium 9.3 (8.6-10.3) mg/dl Magnesium (1.7-2.4) mg/dl Total Bilirubin (0.2-1.0) mg/dl AST (13-39) U/L ALT (7-52) U/L Alkaline Phosphatase (34-104) U/L Ammonia (18-72) umol/L Troponin I High Sens 20.9 H (0-14) pg/ml Total Protein (6.0-8.3) gm/dl Albumin (3.4-5.0) gm/dl Globulin (2.5-4.0) gm/dl Albumin/Globulin Ratio (0.9-2) Vitamin B1 Pending Vitamin B12 > 1500 H (180-914) pg/ml TSH (0.300-4.500) uIu/ml Urine Color Urine Appearance (Clear) Urine pH (4.5-7.5) Ur Specific [place] (1.000-1.030) Urine Protein (Negative) Urine Glucose (UA) (Negative) Urine Ketones (Negative) Urine Blood (Negative) Urine Nitrite (Negative) Urine Bilirubin (Negative) Urine Urobilinogen (Negative) Ur Leukocyte Esterase (Negative) Adenovirus (PCR) (NotDetected) B. pertussis DNA (PCR) (NotDetected) B.parapertussis DNA PCR (NotDetected) Lyme Disease Screen Negative (Negative) C. pneumoniae DNA (PCR) (NotDetected) Coronavirus OC43 (PCR) (NotDetected) Coronavirus HKU1 (PCR) (NotDetected) Coronavirus 229E (PCR) (NotDetected) SARS-CoV-2 (PCR) (NotDetected) Coronavirus NL63 (PCR) (NotDetected) Human Metapneumovir PCR (NotDetected) Influenza Type A (PCR) (NotDetected) Influenza Type B (PCR) (NotDetected) M. pneumoniae (PCR) (NotDetected) Parainfluenza 1 (PCR) (NotDetected) Parainfluenza 2 (PCR) (NotDetected) Parainfluenza 3 (PCR) (NotDetected) Parainfluenza 4 (PCR) (NotDetected) RSV (PCR) (NotDetected) Entero/Rhino (PCR) (NotDetected) 05/07/24 05/06/24 05/06/24 Range/Units 00:01 21:55 20:55 WBC 6.34 (4.8-10.8) K/ul RBC 3.04 L (4.20-5.40) M/uL Hgb 11.0 L (12.0-16.0) g/dl Hct 34.6 L (37.0-47.0) % MCV 113.8 H (80.0-100.0) fL MCH 36.2 H (25.0-34.0) pg MCHC 31.8 L (32.0-36.0) g/dL RDW Std Deviation 51.8 H (36.4-46.3) fL RDW Coeff of Damien 12.3 (11.5-14.5) % Plt Count 205 (130-400) K/uL MPV 10.6 (9.4-12.4) fL Immature Gran % (Auto) 0.3 % Neut % (Auto) 53.2 % Lymph % (Auto) 36.9 % [place] % (Auto) 6.3 % Eos % (Auto) 2.7 % Baso % (Auto) 0.6 % Neut # (Auto) 3.37 (1.40-6.50) K/uL Lymph # (Auto) 2.34 (1.20-3.40) K/uL [place] # (Auto) 0.40 (0.11-0.59) K/uL Eos # (Auto) 0.17 (0.00-0.50) K/uL Baso # (Auto) 0.04 (0.00-0.20) K/uL Immature Gran # (Auto) 0.02 (0.01-0.20) K/uL Polychromasia 1+ Macrocytosis Present Stomatocytes 1+ VBG pH (7.36-7.41) VBG pCO2 (38-50) mmHg VBG pO2 mmHg VBG HCO3 mmol/L VBG O2 Saturation % VBG Base Excess mEq/L Sodium 138 (136-145) mmol/L Potassium 4.4 (3.5-5.1) mmol/L Chloride 100 (98-107) mmol/L Carbon Dioxide 34 H (21-32) mmol/L Anion Gap 4 (3-11) BUN 24 H (6-23) mg/dl Creatinine 1.56 H (0.6-1.2) mg/dl Est Cr Clr Drug Dosing 18.0 ml/min eGFR 33.19 BUN/Creatinine Ratio 15.4 (10-20) Glucose 103 H (70-99(Fasting)) mg/dl POC Glucose (70-99) mg/dl Calcium 9.8 (8.6-10.3) mg/dl Magnesium 1.7 (1.7-2.4) mg/dl Total Bilirubin 0.5 (0.2-1.0) mg/dl AST 23 (13-39) U/L ALT 6 L (7-52) U/L Alkaline Phosphatase 73 (34-104) U/L Ammonia < 10.0 L (18-72) umol/L Troponin I High Sens 17.2 H (0-14) pg/ml Total Protein 6.5 (6.0-8.3) gm/dl Albumin 3.8 (3.4-5.0) gm/dl Globulin 2.7 (2.5-4.0) gm/dl Albumin/Globulin Ratio 1.4 (0.9-2) Vitamin B1 Vitamin B12 (180-914) pg/ml TSH 0.999 (0.300-4.500) uIu/ml Urine Color Yellow Urine Appearance Clear (Clear) Urine pH 6.5 (4.5-7.5) Ur Specific [place] 1.008 (1.000-1.030) Urine Protein Negative (Negative) Urine Glucose (UA) Negative (Negative) Urine Ketones Negative (Negative) Urine Blood Negative (Negative) Urine Nitrite Negative (Negative) Urine Bilirubin Negative (Negative) Urine Urobilinogen Negative (Negative) Ur Leukocyte Esterase Negative (Negative) Adenovirus (PCR) Not Detected (NotDetected) B. pertussis DNA (PCR) Not Detected (NotDetected) B.parapertussis DNA PCR Not Detected (NotDetected) Lyme Disease Screen (Negative) C. pneumoniae DNA (PCR) Not Detected (NotDetected) Coronavirus OC43 (PCR) Not Detected (NotDetected) Coronavirus HKU1 (PCR) Not Detected (NotDetected) Coronavirus 229E (PCR) Not Detected (NotDetected) SARS-CoV-2 (PCR) Not Detected (NotDetected) Coronavirus NL63 (PCR) Not Detected (NotDetected) Human Metapneumovir PCR Not Detected (NotDetected) Influenza Type A (PCR) Not Detected (NotDetected) Influenza Type B (PCR) Not Detected (NotDetected) M. pneumoniae (PCR) Not Detected (NotDetected) Parainfluenza 1 (PCR) Not Detected (NotDetected) Parainfluenza 2 (PCR) Not Detected (NotDetected) Parainfluenza 3 (PCR) Not Detected (NotDetected) Parainfluenza 4 (PCR) Not Detected (NotDetected) RSV (PCR) Not Detected (NotDetected) Entero/Rhino (PCR) Not Detected (NotDetected) Diagnostic Findings Chest X-Ray 05/06/24 21:15 Exam(s): XR CXR 1 VIEW EXAM: XR Chest, 1 View CLINICAL HISTORY: Reason for exam: weakness. TECHNIQUE: Frontal view of the chest. COMPARISON: Chest [place] [address] FINDINGS: Lungs: Hypoinflated lungs with interstitial fibrotic changes again visualized. No consolidation. Pleural space: No pleural effusion. No pneumothorax. Heart: Unremarkable. No cardiomegaly. IMPRESSION: Hypoinflated lungs with interstitial fibrotic changes again visualized. Electronically signed by: Ahsan Nieto MD 05/06/24 22:[address] 05/06/24 21:16 Exam(s): CT HEAD Without Contrast EXAM: CT Head Without Intravenous Contrast CLINICAL HISTORY: Reason for exam: hallucinations. TECHNIQUE: Axial computed tomography images of the head/brain without intravenous contrast. CTDI is 38.49 mGy and DLP is 625.8 mGy-cm. Automated exposure control was utilized for the study. A dose lowering technique was utilized adhering to the principles of ALARA. COMPARISON: MRI brain 11/08/2023 FINDINGS: Brain: No intracranial hemorrhage, mass-effect, or cerebral edema. Global parenchymal atrophy. Periventricular and subcortical low attenuation which is nonspecific but favored to represent chronic microvascular ischemic changes. Ventricles: Unremarkable. Bones/joints: Unremarkable. No fracture. Soft tissues: Unremarkable. Sinuses: No acute sinusitis. Mastoid air cells: Unremarkable as visualized. IMPRESSION: No acute intracranial abnormality. Electronically signed by: Ahsan Nieto MD 05/06/24 22:09 PM PG Care Time/CCT Total # of Minutes Spent Total Time Spent with Patient: Total time spent is greater than 50% in coordination of care (as documented) at patient's floor/unit and/or counseling patient: Coding Level of Care Code 98069 SUB INP/OBS CARE 50MIN Diagnoses Hallucinations R44.3 Chronic respiratory failure with hypoxia J96.11 Parkinsonism G20.C Hypothyroidism, unspecified type E03.9 Hypothyroidism type: unspecified (4) Hypothyroidism Hypothyroidism type: unspecified Qualified Code(s): E03.9 - Hypothyroidism, unspecified
[2024-05-07] MEDS ORDERED: COUGH DROP (SUGAR FREE) LOZ 24 LOZ/1 BOX BUCCAL PRN (10:05)
[2024-05-07 10:10] LABS: Base Excess VBG 8.3 mEq/L; HCO3 VBG 36 mmol/L; Oxygen Saturation VBG < 60.0 %; PCO2 VBG 66 mmHg (38-50); PO2 VBG 25 mmHg; pH VBG 7.35 (7.36-7.41)
[2024-05-07] MEDS: acetaZOLAMIDE 250 MG TAB PO SCH (12:01)
[2024-05-07] MEDS: ACETAMINOPHEN 325 MG TAB PO PRN (12:03)
[2024-05-07 19:53] VITALS: RESP 16
[2024-05-07] MEDS: ATORVASTATIN 40 MG TAB PO SCH (21:10)
[2024-05-08 07:30] VITALS: BP 165/74; PULSE 73; TEMP 97.9
--- NOTE | 2024-05-08 08:21 | Hospitalist Progress Note ---
Date of Service May 08, 2024 Assessment & Plan (1) Hallucinations: Plan: 79yo female with history of HTN, DM, GERD and DVT presenting with hallucinations. Patient with one day of hallucinations. Additionally complaining of some mild respiratory symptoms. 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 Did have hallucinations on one prior occasion while being hospitalized. Workup thus far largely unremarkable - no evidence of electrolyte abnormality or infection, imaging is unremarkable. Patient attentive and answering questions appropriately at present. Does not seem to be delirious. Ddx to include Parkinson associated hallucinations, ?URI contributing? Observation to medical CT head negative for acute intracranial abn CXR w/ hypoinflated lungs w/ interstitial fibrotic changes (notable CT chest last week noting findings c/w chronic interstitial lung disease, resembling usual interstitial pneumonia (also notes b/l nonobstructing renal calculi)) UA not appearing infected B12 >1500, prior folate >22 in November. Ammonia >10 TSH 0.99 Biofire NEGATIVE Lyme NEGATIVE B1 pending however is on daily supp. Prior level in system ELEVATED and not low but ?if was given replacement first *Noting CO2 35 on AM labs, ?having CO2 retention leading to increased SOB/confusion/hallucinations. Prior admission in Spring w/ similar hallucinations w/ pCO2 56 at that time. VBG obtained, pH 7.35, pCO2 66 -->Does follow w/ CHF clinic, dry weight per note ~110, presently reported at 114lb. (Last echo noting moderate mitral stenosis but normal EF) Will attempt diamox 250mg PO x 2 doses for today, monitor BMP/VBG in AM. Hold off lasix for now but will add daily standing scale weights, monitor I&O and volume status in am (also checking BNP w/ AM labs for comparison) Continue frequent orientation and delirium prevention strategies Will place PT/OT consults to ensure no needs at home as LIVES ALONE ? able to dc 05/08, but if ongoing issues will consider reaching out to Dr Awad about her Sinemet (however reporting has been very helpful for her sx w/ tremor) 05/08 Diamox 250mg PO x 2 doses provided for CO2 retention to see if benefit Weight 51.7--> 51.6kg, consideration for lasix as needed given dry weight reported ~110lb Labs pending from this morning to eval bicarb/CO2 levels PT/OT consults placed Of note, urine cx prior all ESBL ecoli (one w/ klebsiella). While UA appeared negative, ?if nonobstructing renal calculi may be infected? (2) Chronic respiratory failure with hypoxia: Plan: follows with [facility], just saw last week and noted had been using 3-4L NC w/ prior 2L needs CT chest noted from this past week, biofire negative. ?no note about any need for abx for "UIP" noted. Consider reaching out Bicarb elevation on BMP w/ VBG noting CO2 retention. Attempting diamox as above (avoiding lasix for now) given weight up as well to see if assists/contribtuing to sx. could consider once daily if needed as well but also discussed making sure only on Oyxgen at level needed to maintain sats and AVOID over oxygenation Presently down to 2L w/ SpO2 sat 99% and will monitor. added/continue IS. Edith schulte (3) Parkinsonism: Plan: home meds continued, follows w/ Dr Awad. Consideration to reach out if ongoing issues for ?relation to her carbidopa (however again noting patient/daughter has helped her other symptoms w tremor) (4) Hypothyroidism: Plan: TSH wnl on check. continues on home Synthroid Plan DVT proph: Continues on eliquis 2.5mg BID for hx VTE Admission and Anticipated Discharge Date Admission Date: May 06, 2024 Results & Data Results & Data Vital Signs (Past 12 Hours) Vital Signs Temp Pulse Resp BP Pulse Ox O2 Del Method O2 Flow Rate 05/08/24 07:27 36.6 C 73 16 165/74 H 100 Nasal Cannula 2 05/07/24 22:12 Nasal Cannula 2 PG Care Time/CCT Total # of Minutes Spent Total Time Spent with Patient: Total time spent is greater than 50% in coordination of care (as documented) at patient's floor/unit and/or counseling patient: Coding Diagnoses Hallucinations R44.3 Chronic respiratory failure with hypoxia J96.11 Parkinsonism G20.C Hypothyroidism, unspecified type E03.9 Hypothyroidism type: unspecified (4) Hypothyroidism Hypothyroidism type: unspecified Qualified Code(s): E03.9 - Hypothyroidism, unspecified
[2024-05-08 08:50] LABS: Base Excess VBG 3.6 mEq/L; HCO3 VBG 31 mmol/L; Oxygen Saturation VBG < 60.0 %; PCO2 VBG 61 mmHg (38-50); PO2 VBG 30 mmHg; pH VBG 7.32 (7.36-7.41)
[2024-05-08 09:10] LABS: BUN Creatinine Ratio 16.9 (10-20); Calcium 9.4 mg/dl (8.6-10.3); Creatinine Clr Calc Pharmacy 16.1 ml/min; Magnesium 1.9 mg/dl (1.7-2.4); Potassium 4.1 mmol/L (3.5-5.1)
[2024-05-08] MEDS: FUROSEMIDE 20 MG TAB PO SCH (10:28)
--- NOTE | 2024-05-08 11:20 | Discharge Summary ---
Discharge Summary Date of Service May 08, 2024 Principal Dx & Hospital Course #1 = Principal Diagnosis (1) Hallucinations: 79yo female with history of HTN, DM, GERD and DVT presenting with hallucinations. Patient with one day of hallucinations. Additionally complaining of some mild respiratory symptoms. 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 Did have hallucinations on one prior occasion while being hospitalized. Workup thus far largely unremarkable - no evidence of electrolyte abnormality or infection, imaging is unremarkable. Patient attentive and answering questions appropriately at present. Does not seem to be delirious. Ddx to include Parkinson associated hallucinations, ?URI contributing? Biofire NEGATIVE Admitted to medical floor CT head negative for acute intracranial abn CXR w/ hypoinflated lungs w/ interstitial fibrotic changes (notable CT chest last week noting findings c/w chronic interstitial lung disease, resembling usual interstitial pneumonia (also notes b/l nonobstructing renal calculi)) UA not appearing infected B12 >1500, prior folate >22 in November. Ammonia >10 TSH 0.99 Biofire NEGATIVE Lyme NEGATIVE B1 pending however is on daily supp and has been continued. Prior level ELEVATED Notable patient had CO2 35 on chemistries and w/ chronic resp failure, VBG checked and CO2 elevated to 66 similar w/ prior hallucinations in the spring. To be on lasix 20mg prn for weight gain (dry weight reported ~110-112lb) and was 114lb on admission (ECHO noting mod MS but normal EF recently) GIven diamox 250mg PO x 2 doses w/ resolution in CO2 on BMP and improvement in VBG. Weight to 51.6kg and renal function stable. NO FURTHER HALLUCINATIONS OVERNIGHT, STABLE MENTATION ON EXAM 05/08 w/ daughter at bedside. Was given 20mg PO lasix prior to dc and rx provided to ensure has at home. Discussed w/ patient to take 20mg PO lasix daily given BNP elevation for next 2- 3 days and to take prn for weight >112/113lb to maintain volume status. Consideration for diamox as needed in f/u Had been titrated to 2L (RA at times) w/ stable O2 and to USE LEAST AMOUNT OF OXYGEN as needed to maintain sats to prevent over oxygenation and prevent respiratory decline Cleared by PT/OT to return home and daughter to be with her at discharge. Should have f/u with CHF clinic and pulm at discharge. Of note, urine cx prior all ESBL ecoli (one w/ klebsiella). While UA appeared negative, ?if nonobstructing renal calculi may be infected? -> did sent urine cx despite UA w/o bacteria, pending at dc but asymptomatic/no leukocytosis/fever and can f/u at dc. Message also sent to PCP to follow up about heating source given headache (CT negative) and resp sx/flu like to ensure has carbon monoxide detector if needed to ensure not having possible carbon monoxide poisoning (2) Chronic respiratory failure with hypoxia: follows with [facility] pulm, just saw last week and noted had been using 3-4L NC w/ prior 2L needs CT chest noted from this past week biofire negative Bicarb elevation, diamox as above w/ improvement and encouraged compliance w/ lasix as needed for volume status As above, should have f/u discussions about CO monitor if using propane/heating source which could contribut Breathing MUCH improved and stable on RA at rest/2L at times. As above, to use LOWEST liters as possible to maintain sats as was 100% on NC prior to dc (3) Parkinsonism: home meds continued, follows w/ Dr Awad. Consideration to reach out if ongoing issues for ?relation to her carbidopa (however again noting patient/daughter has helped her other symptoms w tremor and has had resolution in hallucinations w/ diamox above/volume status) Outpt f/u (4) Hypothyroidism: TSH wnl on check. continues on home Synthroid DVT proph: Continued on eliquis 2.5mg BID for hx VTE Plan Discharged home with daughter, lasix 20mg po daily. F/u cards/CHF clinic as well as pulm Notes For Next Care Provider Ensure follow up discussion about heating source at home and if ?carbon monoxide could be contributing factor however could be from CHF exacerbation/acute on chronic resp failure w/ hypercarbia. ?NIPPV if tolerated Encouraged daily weight monitoring and use of her lasix to maintain volume status Medication Changes From Visit Lasix 20mg PO daily LOREN for next 2-3 days and then as needed for weight gain >112/113lb Admission HPI Per Admitting Provider Elyse Perez is an 79yo female with history of DM, HTN, DVT on Eliquis and Parkinson's presenting with hallucinations. Patient reports a mild cough, congestion and headache ongoing for the last several days. Yesterday she woke up from sleep and began having some hallucinations. Nausea with several episodes of vomiting yesterday as well. She saw people in her living room and bathroom and saw hair growing on her ceiling and snider as well as her arms and legs. No additional complaints. Specifically denies fever, chest pain, diarrhea. No numbness/tingling/weakness. 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 Per note review 04/22/24 - patient does NOT have sign ificant degenerative dementia. She has been hospitalized in the past for metabolic encephalopathy. She had an episode of hallucinations during a prior hospitalization - patient reports that this was in the context of receiving a medication, she believes may have been Oxycodone. In the ER she is afebrile, HD stable Admission Exam Per Admitting Provider General: patient resting comfortably, NAD, non-toxic in appearance, AA&O x 4 Skin: warm, dry, intact, no rashes or lesions HEENT: NC/AT, PERRL, EOMI, anicteric sclera, conjunctiva without injection, external ear normal to inspection and nontender, nares patent, moist mucus membranes, dentition intact, no oropharyngeal lesions, neck supple, trachea midline, no LAD, no thyromegaly, no JVD Heart: +S1/S2, regular, no m/r/g Lungs: equal air entry bilaterally, no rales/rhonchi/wheezes Abd: +BS, soft, NT/ND, no masses/organomegaly/ascites Ext: warm, 2+ pulses in UE/LE bilaterally, no clubbing/cyanosis or edema Neuro: nonfocal, patient AA&O x 4, speech intact, no facial droop, moving all extremities on command with equal strength 5/5 Discharge Exam General: frail elderly 79yo female sitting up in bed, telling me about her hallucinations at home and last night (but also seeing bubbles in her water cup), NAD, daughter at bedside HEENT: head atraumatic, normocephalic, mmm, trachea midline Resp: faint crackles bilaterally but no overt wheezing, on 2L NC 99% and no signifciant cough/sputum production. able to speak in complete sentences CV: RRR, faint systolic murmur, baseline edema R>L but pulses present GI: +BS, soft/NT no zepeda MSK/Neuro: answering questions appropriately, no slurred speech, moves all extremities Psych: Alert to person/place/time, intermittent hallucinations Discharge Plan Discharge Items Patient Disposition: Home - Self-Care Reason For Visit: HALLUCINATIONS Discharge Diagnosis: Hallucinations, ?suspected due to acute on chronic respiratory failure with elevated carbon dioxide (hypercarbia) Condition on Discharge: Fair Goals: You have been hospitalized for an acute medical problem. During your stay at [facility], we have made an effort to correct the problem that brought you to the hospital while keeping you as comfortable as possible. Medications were used to bring your condition under control and your discharge instructions will include directions for any medications you should take after leaving the hospital. Please make sure you see your Primary Care Provider as part of your follow up plan. Activity: Resume your previous activity Non-emergency contact: Primary Care Provider, Dishwasher and Signal Inspector Call non-emergency contact if: you have any medication questions, your symptoms worsen, your pain is not controlled and your pain is unusual for you Follow-up/Referrals: Quang Mojica PA-C [Hospitalist] - 05/18/24 8:30 am Maia Nicole PA-C [Physician Media Senior Recruiter] - 05/15/24 10:00 am Katarina Peters DO [Primary Care Provider] - 05/14/24 11:00 am (Appointment will be with Kim Hazel PA-C) Diet: Heart Healthy Addtl Attending Provider Instructions: You have been hospitalized for hallucinations. I saw an elevated carbon dioxide level and we checked a blood gas which showed elevated CO2 levels similar to prior hospitalizations. We titrated your oxygen to the lowest setting to prevent over oxygenation and provided with medication called DIAMOX and this level normalized on chemistry testing and improved on blood gas testing without further hallucinations. Your weight was up to 114lb and down to 113.8 prior to discharge and we provided a dose of lasix as there is probably some aspect to heart failure and you should continue this daily for weights above 112-113lb to prevent worsening breathing. long as urine is clear, you should not be dehydrated and able to continue this for the next 2 days and then monitor your weights and take if weight is above 112-113lb and follow up with Lorraine Nicole from the heart failure clinic as they may consider adding something like the diamox daily to help prevent these levels from elevating and causing a problem. Please continue a low salt diet and avoid excessive fluids >2 liters in a 24hour period of time. Please continue again to only use enough oxygen as needed to keep your saturations above 90-92% as having too much can cause respiratory decline. We did sent a urine culture but urine did not show bacteria on initial sample and should be followed up with primary care however no fever/white count to suspect infection given improvement WITHOUT antibiotics. Please follow up with primary care in the next 7-10 days to monitor your status. Follow up with cardiology/pulmonology. Please return to the ER with any increased symptoms/worsening or repeat hallucinations or symptoms concerning for you. It has been a pleasure being a part of the medical team providing for you while you have been in the hospital. Take care! Addtl Medical Case Manager Provider Instructions: Call 911 and go to the Emergency Room if: * You have tightness or pain in your chest that does not go away with rest or Nitroglycerin * You are very short of breath even with rest Call your doctor if any of the following symptoms or problems start or get worse: * Shortness of breath or difficulty breathing * Wake up at night short of breath * Chest pain * Cough * Swelling of your hands, fee, or legs * More fatigued or tired with your normal activity * Palpitations - sudden fast heart beats WEIGHT * Weigh yourself every morning after using the bathroom. * Use the same scale. * Wear the same amount of clothing. * Write your weight down on your chart. * Call your doctor if you gain more than 2-3 pounds in 1-2 days. MEDICATIONS * Use this discharge instruction sheet for instructions. * Take your medications at the time your doctor ordered. * Do not skip a dose of your medicines. * If you miss a dose of medicine, take as soon as possible, but DO NOT DOUBLE A DOSE. * Read your medicine information when you get home. * Know all of the side effects of your medicine. * Call your doctor's office if you have any side effects. * Be sure all of your doctors know what medicine and herbs you take (including cold, flu, and herbal medicine). * Pain Medicine: If you do not get relief from your pain, please call your doctor for help. Take the following with you to your follow-up doctor appointments: * Weight Chart * Medication List * List of questions Do not drink excessive alcohol, beer or wine. Pending Studies at Discharge: Yes Studies:: urine culture Stand-Alone Forms: [facility], Smoking Cessation Medications and DC Order Prescriptions: New furosemide 20 mg tablet 20 mg PO DAILY Qty: 14 0RF Continued famotidine 20 mg tablet 20 mg PO DAILY Qty: 90 3RF folic acid 1 mg tablet 1 mg PO QAM Qty: 90 3RF carbidopa-levodopa 10-100 mg tablet 2 tab PO QID 30 Days Qty: 240 5RF levothyroxine 88 mcg tablet 88 mcg PO DAILY Qty: 90 3RF Rx Instructions: 88 mcg po qam last filled 12/02 30 day supply duloxetine 30 mg capsule,delayed release(DR/EC) 30 mg PO DAILY Qty: 90 3RF thiamine HCl (vitamin B1) 100 mg tablet 200 mg PO DAILY furosemide [Lasix] 20 mg tablet 20 mg PO DAILY PRN (Reason: edema, weight gain, SOB) Qty: 15 2RF mecobalamin (vitamin B12) 1,000 mcg PO DAILY pyridoxine (vitamin B6) 100 mg tablet 100 mg PO DAILY atorvastatin 80 mg tablet 80 mg PO HS latanoprost 0.005 % drops 1 drp OPB UD Rx Instructions: 1 drop eye hs last filled 12/02 25 day supply albuterol sulfate 90 mcg/actuation Hfa Aerosol Inhaler 2 inh INHALATION DAILY PRN (Reason: Shortness Of Breath Or Wheezing) fluticasone propionate [Flonase Allergy Relief] 50 mcg/actuation [place],Suspension 2 spray INTRANASAL DAILY PRN (Reason: .allergy symptoms) Rx Instructions: administer into each nostril Eliquis 2.5 mg tablet 2.5 mg PO Q12 acetaminophen [Tylenol] 325 mg Tablet 650 mg PO Q6 PRN (Reason: fever or pain) Qty: 60 0RF Rx Instructions: OTC unable to verify 02/24 valacyclovir 500 mg tablet 500 mg PO DAILY Discontinued doxycycline monohydrate 100 mg capsule 100 mg PO BID 10 Days Qty: 20 0RF Discharge Orders: Discharge Order- CHF (Routine); Ordered 05/08/24 Ordered By: Mansi Gallardo Admission Data Admit Date/Time: 05/06/24 23:43 Attending Provider: Manoj Mendoza Admit Provider: Payton Velasquez Primary Care Provider: Katarina Peters Other Interventions: Discharge Summary Assessment (RN) Last Done: 05/08/24 11:40 Hospital Stay Data Diagnostic Imagining Performed Chest X-Ray 05/06/24 21:15 Exam(s): XR CXR 1 VIEW EXAM: XR Chest, 1 View CLINICAL HISTORY: Reason for exam: weakness. TECHNIQUE: Frontal view of the chest. COMPARISON: [place] [id number] FINDINGS: Lungs: Hypoinflated lungs with interstitial fibrotic changes again visualized. No consolidation. Pleural space: No pleural effusion. No pneumothorax. Heart: Unremarkable. No cardiomegaly. IMPRESSION: Hypoinflated lungs with interstitial fibrotic changes again visualized. Electronically signed by: Ahsan Nieto MD 05/06/24 22:[address] 05/06/24 21:16 Exam(s): CT HEAD Without Contrast EXAM: CT Head Without Intravenous Contrast CLINICAL HISTORY: Reason for exam: hallucinations. TECHNIQUE: Axial computed tomography images of the head/brain without intravenous contrast. CTDI is 38.49 mGy and DLP is 625.8 mGy-cm. Automated exposure control was utilized for the study. A dose lowering technique was utilized adhering to the principles of ALARA. COMPARISON: MRI brain 11/08/2023 FINDINGS: Brain: No intracranial hemorrhage, mass-effect, or cerebral edema. Global parenchymal atrophy. Periventricular and subcortical low attenuation which is nonspecific but favored to represent chronic microvascular ischemic changes. Ventricles: Unremarkable. Bones/joints: Unremarkable. No fracture. Soft tissues: Unremarkable. Sinuses: No acute sinusitis. Mastoid air cells: Unremarkable as visualized. IMPRESSION: No acute intracranial abnormality. Electronically signed by: Ahsan Nieto MD 05/06/24 22:09 PM Discharge Instructions Given to Patient (Per Discharging Provider) You have been hospitalized for hallucinations. I saw an elevated carbon dioxide level and we checked a blood gas which showed elevated CO2 levels similar to prior hospitalizations. We titrated your oxygen to the lowest setting to prevent over oxygenation and provided with medication called DIAMOX and this level normalized on chemistry testing and improved on blood gas testing without further hallucinations. Your weight was up to 114lb and down to 113.8 prior to discharge and we provided a dose of lasix as there is probably some aspect to heart failure and you should continue this daily for weights above 112-113lb to prevent worsening breathing. long as urine is clear, you should not be dehydrated and able to continue this for the next 2 days and then monitor your weights and take if weight is above 112-113lb and follow up with Lorraine Nicole from the heart failure clinic as they may consider adding something like the diamox daily to help prevent these levels from elevating and causing a problem. Please continue a low salt diet and avoid excessive fluids >2 liters in a 24hour period of time. Please continue again to only use enough oxygen as needed to keep your saturations above 90-92% as having too much can cause respiratory decline. We did sent a urine culture but urine did not show bacteria on initial sample and should be followed up with primary care however no fever/white count to suspect infection given improvement WITHOUT antibiotics. Please follow up with primary care in the next 7-10 days to monitor your status. Follow up with cardiology/pulmonology. Please return to the ER with any increased symptoms/worsening or repeat hallucinations or symptoms concerning for you. It has been a pleasure being a part of the medical team providing for you while you have been in the hospital. Take care! Supervising Physician Co-Signing Physician Notes The patient was not seen by me. The chart was reviewed. Case discussed with NATI Pisano. Agree with assessment and plan Total Time Total Time Spent Total Time Spent (In Minutes): 40 Coding Level of Care Code 29108 INP/OBS DISCH >30 MIN Diagnoses Hallucinations R44.3 Chronic respiratory failure with hypoxia J96.11 Parkinsonism G20.C Hypothyroidism, unspecified type E03.9 Hypothyroidism type: unspecified
[2024-05-08] MEDS: DICLOFENAC SOD 1% GEL 100 GM TUBE EXT SCH (11:29)
[2024-05-08 11:41] VITALS: O2SAT 100
--- NOTE | 2024-05-11 21:52 | Electrocardiogram Report ---
Test Reason : Blood Pressure : */* mmHG Vent. Rate : 77 BPM Atrial Rate : 77 BPM P-R Int : 188 ms QRS Dur : 80 ms QT Int : 384 ms P-R-T Axes : 45 -20 26 degrees QTcB Int : 434 ms Normal sinus rhythm Poor R wave progression, consider anterior CT vs. lead placement vs. LVH Abnormal ECG When compared with ECG of 25-Feb-2024 10:02, No significant change was found Confirmed by Suman Trujillo ([id number]) on 05/11/2024 9:52:03 PM Referred By: REFERRED SELF Confirmed By: Suman Trujillo
== END 2024-05-08 13:20 | disposition home health service (06) ==
LOC: ED 20:42 → 3W 20:42 → SUATTDRO 23:43 → 3W 05-07 00:35

== ENCOUNTER 2025-02-18 12:02 | Inpatient (IN) ==
[2025-02-18 13:29] LABS: Hematocrit (blood only) 35.9 % (37.0-47.0); Hemoglobin 11.3 g/dl (12.0-16.0); Immature Granulocytes # (auto) 0.04 K/uL (0.01-0.20); Immature Granulocytes % (auto) 0.5 %; Mean Corpuscular Hemoglobin 36.6 pg (25.0-34.0); Mean Corpuscular Volume 116.2 fL (80.0-100.0); Platelet Count 324 K/uL (130-400); RDW Standard Deviation 61.2 fL (36.4-46.3); Red Blood Count 3.09 M/uL (4.20-5.40); White Blood Count 7.86 K/ul (4.8-10.8)
[2025-02-18 13:48] LABS: Alanine Aminotransferase 8 U/L (7-52); Albumin Globulin Ratio 1.0 (0.9-2); Alkaline Phosphatase 73 U/L (34-104); Anion Gap 2 (3-11); Bilirubin,Total 0.3 mg/dl (0.2-1.0); Blood Urea Nitrogen 24 mg/dl (6-23); Calcium 9.1 mg/dl (8.6-10.3); Carbon Dioxide 34 mmol/L (21-32); Chloride 104 mmol/L (98-107); Globulin 3.7 gm/dl (2.5-4.0); Glucose 113 mg/dl (70-99(Fasting)); Potassium 4.4 mmol/L (3.5-5.1); Sodium 140 mmol/L (136-145); Total Protein 7.5 gm/dl (6.0-8.3)
[2025-02-18 13:51] LABS: Macrocytosis Present; Polychromasia 1+
--- NOTE | 2025-02-18 13:55 | XRay Report ---
SINGLE VIEW CHEST CLINICAL HISTORY: Chest pain FINDINGS: An AP upright chest radiograph is compared to study dated 02/16/2025 and correlated with [facility] st CT dated 11/17/2024. The heart is enlarged noting atherosclerotic calcification of the thoracic aor ta. Findings of emphysema with superimposed chronic interstitial lung disease are similar to previous . There is increased coarsening of the interstitium as compared to previous. No lobar consolidation o r pleural effusion is identified. Foci of parenchymal scarring are seen throughout both lungs. No pne umothorax is seen. The skeletal structures are osteopenic. There are chronic/healed left-sided rib fr actures. IMPRESSION: 1. Cardiomegaly and emphysema with changes of superimposed chronic interstitial lung disease. 2. There is no evidence of lobar consolidation or pleural effusion. 3. There is apparent increased coarsening of the interstitium as compared to previous. Correlate clin ically for evidence of fluid overload/mild congestive change. ACT 112: Negative or not required by law. Electronically signed by: Salo Morales M.D. 02/18/2025 1:52 PM
[2025-02-18 13:59] LABS: INR 0.9 (0.9-1.1); Partial Thromboplastin Time 25 Seconds (21-31); Prothrombin Time 10.2 Seconds (9.0-12.0)
[2025-02-18 14:04] LABS: Influenza A virus by PCR Negative (Neg); Influenza B virus by PCR Negative (Neg); SARS CoV2 RNA(COVID-19) Ceph NEGATIVE (Negative)
[2025-02-18] MEDS: OPTIRAY 320 100ml IV ONE (14:58)
--- NOTE | 2025-02-18 15:16 | CT Scan Report ---
CT SCAN OF THE CHEST WITH IV CONTRAST CLINICAL HISTORY: Dyspnea. Recent pneumonia. COMPARISON STUDY: Chest CT November 17, 2024. Chest radiograph performed earlier today. TECHNIQUE: Following the IV administration of 93 cc of Optiray 320, CT scan of the thorax was perform ed from the thoracic inlet to the upper abdomen. Images are reviewed in the axial, sagittal, and jorge nal planes. IV contrast was administered without complication. A dose lowering technique was utilize d adhering to the principles of ALARA. CT DOSE: 551.79 mGy.cm FINDINGS: No central or lobar pulmonary emboli are identified. Segmental and subsegmental pulmonary a rteries are suboptimally assessed on nondedicated exam. Moderate dilatation of the central pulmonary arteries is again noted. There is moderate cardiomegaly and extensive mitral annular calcification. T here is no thoracic aortic dissection. There is extensive atherosclerotic plaque within the thoracic aorta. No pericardial effusion. There is no thoracic lymphadenopathy. No pneumothorax is present. The re is a trace left pleural effusion. Moderate emphysema is noted. In addition, subpleural reticulatio n represents interstitial lung disease. There is mild associated bronchiectasis, most pronounced with in the left lower lobe. Left lower lobe opacities favor atelectasis although pneumonia could appear s imilar. There may be mild pulmonary edema. A 1 cm subpleural nodular density within the right upper l obe on image 96 is unchanged since prior CT. This is indeterminate. Visualized portions of the upper abdomen demonstrate multiple bilateral renal calculi which measure up to 8 mm. Low-attenuation bilate ral renal lesions represent cysts. There are small gallstones within the gallbladder. Multiple old th oracic spine compression fractures are unchanged. Exaggerated thoracic kyphosis is again noted. No ac creek fractures are identified. IMPRESSION: 1. Mild left lower lobe opacities with volume loss. This favors atelectasis although pneumonia could appear similar. 2. Emphysema and interstitial lung disease, as described above. 3. 1 cm subpleural nodular density within the right upper lobe. This may represent scarring although is indeterminate. A chest CT in 6 months is recommended. 4. Moderate cardiomegaly. Dilatation of the central pulmonary arteries which raises the possibility o f pulmonary hypertension. 5. Trace left pleural effusion. ACT 112: Negative or not required by law. Electronically signed by: Nik Will M.D. 02/18/2025 3:15 PM
--- NOTE | 2025-02-18 15:41 | Emergency Department Note ---
Impression & Plan Dyspnea, Acute exacerbation of chronic obstructive pulmonary disease (COPD) ED Provider Note ED Provider Note NAME: SOFYA COX AGE:79 SEX: Female : 1945 ARRIVES VIA: INFORMANT: Patient ED PROVIDER(s): Cara Lindo DO CHIEF COMPLAINT: increased shortness of breath HPI: This is an 79-year-old female who presents to the emergency department due to concern for increased shortness of breath. An aid who helps the patient was present at bedside additionally. Patient recently with prolonged rehab at [facility] and has only been home a couple of weeks. She notes during her time there she did have pneumonia and was treated. She does have a history of COPD and does wear chronic oxygen. She states over the course of the last week her cough has been worsening and is productive of yellow and green sputum. No hemoptysis noted. She also notes she had increased difficulty breathing while trying to sleep and laying flat, as well as increased difficulty breathing with ambulation. She did begin to turn up her home oxygen from 2 L/min to 3 L/min. She states she has been using her MDIs and nebulizers at home. She does feel she gets temporary improvement from this. Patient denies any fevers or chills. She states she does intermittently have chest pain that seems to coincide with episodes of coughing. She denies any vomiting or diarrhea. She denies any recent leg swelling. PAST MEDICAL HISTORY:See Below PAST SURGICAL HISTORY:See Below FAMILY HISTORY:See Below SOCIAL HISTORY:See Below HOME MEDICATIONS:See Below ALLERGIES:See Below VITALS:See Below PHYSICAL EXAMINATION: GENERAL: alert, well appearing, well nourished, no distress, non-toxic EYE EXAM: normal conjunctiva, PERRL and EOM's grossly intact OROPHARYNX: no exudate, no erythema, lips, buccal mucosa, and tongue normal and mucous membranes are moist NECK: supple, no nuchal rigidity, no adenopathy, non-tender LUNGS: Clear to auscultation. Normal chest wall mechanics, no w/r/r HEART: no murmurs, S1 normal and S2 normal ABDOMEN: abdomen soft, non-tender, normo-active bowel sounds, no masses, no rebound or guarding. BACK: Back is symmetrical on inspection and there is no deformity, no midline tenderness, no CVA tenderness. SKIN: no rashes, petechiae, orbruising UPPER EXTREMITIES: upper extremities are grossly normal. FROM, nml pulses b/l. LOWER EXTREMITIES: No pitting edema. FROM, nml pulses b/l. NEURO EXAM: Normal sensorium, cranial nerves II-XII grossly intact, normal speech, no facial droop,nogross weakness of arms, no gross weakness of legs. Gross sensation intact. No ataxia. Vital Signs: reviewed and remarkable Differential Diagnosis: pneumonia, bronchitis, COPD/Asthma exacerbation, pneumothorax, pulmonary embolism, congestive heart failure, acute coronary syndrome, as well as others were considered MEDICAL DECISION MAKING: This is an 79 yo female who presents to the ER with concern for increased shortness of breath. She was afebrile and VS stable. Patient with recent pna while in rehab and does have a hx of COPD requiring chronic daily oxygen. Labs drawn and sent, IV established, EKG and CXR performed and interpreted at bedside, and patient placed on telemetry. While cxr reassuring, given worsening symptoms and hx, additional imaging performed. Patient sent for CT chest additionally. Nasal swab obtained and sent for viral respiratory panel which was negative. Given recent hx and underlying lung disease with worsening symptoms, case discussed with the hospitalist team for additional evaluation and mgmt. Consultation(s): 1635: Discussed with Dr. Huff, [place] hospitalist team, for additional evaluation and mgmt. ER Treatment Provided: See below Diagnostics Interpreted By Me: -ECG: NSR at 88, nml axis, nml intervals, no acute ST/T wave changes -Cardiac Monitoring: An order was placed for continuous cardiac monitoring. The monitor shows a rate of 90 with normal sinus rhythm. -Laboratory studies: As stated above and show below. -Imaging studies: X-ray Chest: A single view study of the chest was reviewed and was negative for focal infiltrate, effusion, pulmonary edema, or wide mediastinum. CM noted. Triage Nursing Note Reviewed Prior/Outside Records Reviewed - DC summary from [facility] 01/31/25 reviewed Past Med/Surg History Problem List Pulmonary nodule LLL pneumonia Acute exacerbation of chronic obstructive pulmonary disease (COPD) (Acute) Dyspnea (Acute) Bacteremia Acute heart failure Septic shock Acute kidney injury superimposed on stage 3a chronic kidney disease Sepsis (Acute) Acute UTI (Acute) Fullness in right ear Nasal crusting Nasal septal erosion Anemia (Acute) Interstitial lung disease Parkinsonism Pulmonary hypertension Chronic respiratory failure with hypoxia Mitral annular calcification Mitral stenosis Hypomagnesemia (Acute) Lumbar spinal stenosis Hypothyroidism History of compression fracture of vertebral column (~12/04/18) Thoracic Pulmonary emphysema CKD (chronic kidney disease), stage IV 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, Mobitz type II Peripheral artery disease Prediabetes Iron deficiency anemia Vitamin D deficiency (Acute) Primary hypercoagulable state (Chronic) Osteoporosis (Chronic) History of follicular lymphoma Sensorineural hearing loss (SNHL) of both ears Ataxia Secondary hyperparathyroidism of renal origin Medical History Parkinson's disease Abnormal chest CT Chronic dyspnea Stage 1 skin ulcer of sacral region Kidney stones Hallucinations Compression fracture of lumbar spine, non-traumatic (~09/23/23) seeing orthopedics Closed T2 fracture (~10/08/23) Parkinsons disease Type 2 diabetes mellitus without complication HTN (hypertension) DVT (deep venous thrombosis) Hyponatremia Megaloblastic anemia Diet-controlled diabetes mellitus History of ischemic stroke Second degree AV block, Mobitz type I Chronic deep vein thrombosis (DVT) Cardiomyopathy Chronic GERD Chronic fatigue syndrome Chronic laryngitis Cigarette smoker motivated to quit 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 Depression Dermatitis, eczematoid Diabetes mellitus (11/29/12) Hearing loss Hoarseness Ischemic colitis Low back pain NSTEMI (non-ST elevated myocardial infarction) Recurrent UTI SNHL (sensorineural hearing loss) Secondary hyperparathyroidism (of renal origin) Solitary pulmonary nodule Subsequent non-ST elevation (NSTEMI) myocardial infarction Vertigo GERD (gastroesophageal reflux disease) Chronic kidney disease Hypothyroidism (acquired) GI bleed Chronic deep vein thrombosis of left lower extremity Hyperlipidemia Thyroid disease Surgical History History of lumbar laminectomy for spinal cord decompression History of tubal ligation History of D&C History of Hx of colonoscopy Family History Mother , age 76 with leukemia Leukemia Hypertension Father , age 86 with heart issues Myocardial infarction Diabetes Other Family history non-contributory Denies family history of Ovarian cancer Prostate cancer Breast cancer Lung cancer Social History (Updated 02/18/25 @ 19:59 by Isidro Huff MD) Smoking Status: Former smoker Tobacco Type: Cigarettes Age Started Using Tobacco: 17; Age Quit Using Tobacco: 73; packs per day: 1; Second Hand Exposure: No; Do You Dip or Chew Tobacco: No; Hx Alcohol Use: No Hx Substance Use: No Preferred Language: Bulgarian Communication Ability: Effective Visual Impairment: No Limitations Hearing Ability: Use of Hearing Aid Machine Puller Required: No Beliefs That Will Affect Care: None marital status: Current Living Situation: Alone Current Living Situation Comment: home alone, recently at [facility] for [facility] current occupational status: retired 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 How many Children do You have: 3 How many Children do You have Comment: 1 daughter is Other Information That Helps Us Care for You: No Feels Safe at Home: Yes Safety Concerns: Feels Safe At This Time Childhood Exposure to Second-Hand Smoke: Yes Diet: regular caffeine: No Dental Care, Regularly: No Physical Activity Frequency: Does not Exercise Seatbelt Use: always Sunscreen Use: No Do you think of yourself as: straight/heterosexual Gender Identity: Female Assistive Devices: Denture - Upper, Denture - Lower, Glasses and Oxygen - Continuous Allergies Allergies Allergy/AdvReac Type Severity Reaction Status Date / Time azithromycin [From Zithromax] Allergy Intermediate HIVES Verified 02/18/25 15:40 nitrofurantoin Allergy Intermediate HIVES,ITCHI Verified 02/18/25 15:40 NG tramadol AdvReac Mild nausea Verified 02/18/25 15:40 Home Meds Home Medications Medication Instructions Recorded Confirmed albuterol sulfate 90 mcg/actuation 2 inh inhalation DAILY PRN 11/08/23 02/18/25 aerosol inhaler Shortness Of Breath Or Wheezing fluticasone propionate 50 2 spray intranasal DAILY PRN 11/08/23 02/18/25 mcg/actuation nasal .allergy symptoms spray,suspension (Flonase Allergy Relief) thiamine HCl (vitamin B1) 100 mg 200 mg PO QAM 01/06/24 02/18/25 tablet pyridoxine (vitamin B6) 100 mg 100 mg PO QAM 03/03/24 02/18/25 tablet valacyclovir 500 mg tablet 500 mg PO DAILY 03/19/24 02/18/25 atorvastatin 80 mg tablet 80 mg PO HS 05/06/24 02/18/25 magnesium 200 mg tablet 200 mg PO DAILY 09/24/24 02/18/25 carbidopa 10 mg-levodopa 100 mg 2 tab PO TID 11/17/24 02/18/25 tablet cyanocobalamin (vitamin B-12) 1,000 mcg PO QAM 11/17/24 02/18/25 1,000 mcg tablet (Vitamin B-12) denosumab 60 mg/mL subcutaneous 60 mg subcut .EVERY 6 MONTHS 11/17/24 02/18/25 syringe (Prolia) doxepin 3 mg tablet 3 mg PO HS PRN Sleep 11/17/24 02/18/25 erythromycin 5 mg/gram (0.5 %) eye 1 applic OPR HS 11/17/24 02/18/25 ointment levothyroxine 88 mcg tablet 88 mcg PO DAILYBB 11/17/24 02/18/25 prednisolone acetate 1 % eye 1 drp OPR HS 11/17/24 02/18/25 drops,suspension ipratropium 0.5 mg-albuterol 3 mg 3 ml inhalation .Q4-6HRS PRN 02/18/25 02/18/25 (2.5 mg base)/3 mL nebulization dyspnea soln Previous Rx's Medication Instructions Recorded acetaminophen 325 mg tablet 650 mg (2 x 325 mg) PO Q6 PRN 11/15/23 (Tylenol) fever or pain #60 tabs famotidine 20 mg tablet 20 mg PO DAILY #90 tabs 12/25/23 folic acid 1 mg tablet 1 mg PO QAM #90 tabs 12/25/23 peg 3350-electrolytes 236 240 ml PO Q10M #4,000 mL 11/17/24 gram-22.74 gram-6.74 gram-5.86 gram solution (Golytely) apixaban 2.5 mg tablet (Eliquis) 2.5 mg PO BID #180 tabs 11/18/24 furosemide 20 mg tablet 20 mg PO QAM #10 tabs 12/02/24 Results & Data (ED) Vital Signs Vital Signs - 24 hr 02/18/25 12:21 02/18/25 13:39 02/18/25 13:39 Temperature 36.4 C L Temperature Source Oral Pulse Rate 87 Pulse Rate from SpO2 Sensor Respiratory Rate 22 Respiratory Effort / Characteristics Non-Labored Spontaneous Respiratory Depth Normal Respiratory Pattern Blood Pressure 114/54 L Blood Pressure [Right Arm] Blood Pressure Mean 74 Blood Pressure Mean [Right Arm] Blood Pressure Position [Right Arm] Pulse Oximetry 100 100 100 Oxygen Delivery Method Nasal Cannula Nasal Cannula Nasal Cannula Oxygen Flow Rate 3 3 3 Sepsis Recent Fever Within 48 Hours No Sepsis New/Unexplained Change in Mental Status N/A Sepsis Action Taken by Nursing No Action Required 02/18/25 13:43 02/18/25 13:54 02/18/25 14:06 Temperature Temperature Source Pulse Rate 125 H 80 77 Pulse Rate from SpO2 Sensor 80 77 Respiratory Rate 23 22 Respiratory Effort / Characteristics Respiratory Depth Respiratory Pattern Blood Pressure 139/66 Blood Pressure [Right Arm] Blood Pressure Mean 90 Blood Pressure Mean [Right Arm] Blood Pressure Position [Right Arm] Pulse Oximetry 100 100 Oxygen Delivery Method Nasal Cannula Nasal Cannula Oxygen Flow Rate 3 3 Sepsis Recent Fever Within 48 Hours Sepsis New/Unexplained Change in Mental Status Sepsis Action Taken by Nursing 02/18/25 15:06 02/18/25 17:21 Temperature Temperature Source Pulse Rate 88 Pulse Rate from SpO2 Sensor 84 Respiratory Rate 21 20 Respiratory Effort / Characteristics Respiratory Depth Normal Respiratory Pattern Regular Blood Pressure 144/65 H Blood Pressure [Right Arm] 143/49 H Blood Pressure Mean 91 Blood Pressure Mean [Right Arm] 80 Blood Pressure Position [Right Arm] Sitting Pulse Oximetry 100 95 Oxygen Delivery Method Nasal Cannula Oxygen Flow Rate 1 Sepsis Recent Fever Within 48 Hours Sepsis New/Unexplained Change in Mental Status Sepsis Action Taken by Nursing Laboratory Data 02/18/25 13:03 02/19/25 05:55 Lab Results 02/18/25 02/18/25 02/18/25 Range/Units 13:03 14:40 16:10 WBC 7.86 (4.8-10.8) K/ul RBC 3.09 L (4.20-5.40) M/uL Hgb 11.3 L (12.0-16.0) g/dl Hct 35.9 L (37.0-47.0) % MCV 116.2 H (80.0-100.0) fL MCH 36.6 H (25.0-34.0) pg MCHC 31.5 L (32.0-36.0) g/dL RDW Std Deviation 61.2 H (36.4-46.3) fL RDW Coeff of Damien 14.4 (11.5-14.5) % Plt Count 324 (130-400) K/uL MPV 10.4 (9.4-12.4) fL Immature Gran % (Auto) 0.5 % Neut % (Auto) 70.9 % Lymph % (Auto) 19.6 % Eagle % (Auto) 7.0 % Eos % (Auto) 1.4 % Baso % (Auto) 0.6 % Neut # (Auto) 5.57 (1.40-6.50) K/uL Lymph # (Auto) 1.54 (1.20-3.40) K/uL Eagle # (Auto) 0.55 (0.11-0.59) K/uL Eos # (Auto) 0.11 (0.00-0.50) K/uL Baso # (Auto) 0.05 (0.00-0.20) K/uL Immature Gran # (Auto) 0.04 (0.01-0.20) K/uL Polychromasia 1+ Macrocytosis Present PT 10.2 (9.0-12.0) Seconds INR 0.9 (0.9-1.1) APTT 25 (21-31) Seconds PTT Ratio 0.9 Sodium 140 (136-145) mmol/L Potassium 4.4 (3.5-5.1) mmol/L Chloride 104 (98-107) mmol/L Carbon Dioxide 34 H (21-32) mmol/L Anion Gap 2 L (3-11) BUN 24 H (6-23) mg/dl Creatinine 1.36 H (0.6-1.2) mg/dl Est Cr Clr Drug Dosing Not Reportable eGFR 39.13 BUN/Creatinine Ratio 17.6 (10-20) Glucose 113 H (70-99(Fasting)) mg/dl Calcium 9.1 (8.6-10.3) mg/dl Total Bilirubin 0.3 (0.2-1.0) mg/dl AST 29 (13-39) U/L ALT 8 (7-52) U/L Alkaline Phosphatase 73 (34-104) U/L Troponin I High Sens 20.3 H 21.2 H (0-14) pg/ml Total Protein 7.5 (6.0-8.3) gm/dl Albumin 3.8 (3.4-5.0) gm/dl Globulin 3.7 (2.5-4.0) gm/dl Albumin/Globulin Ratio 1.0 (0.9-2) Nasal Screen MRSA (PCR) (Negative) Adenovirus (PCR) Not Detected (NotDetected) B. pertussis DNA (PCR) Not Detected (NotDetected) B.parapertussis DNA PCR Not Detected (NotDetected) C. pneumoniae DNA (PCR) Not Detected (NotDetected) Coronavirus OC43 (PCR) Not Detected (NotDetected) Coronavirus HKU1 (PCR) Not Detected (NotDetected) Coronavirus 229E (PCR) Not Detected (NotDetected) SARS-CoV-2 (PCR) NEGATIVE Not Detected (Negative) Coronavirus NL63 (PCR) Not Detected (NotDetected) Human Metapneumovir PCR Not Detected (NotDetected) Influenza Type A (PCR) Negative Not Detected (Neg) Influenza Type B (PCR) Negative Not Detected (Neg) M. pneumoniae (PCR) Not Detected (NotDetected) Parainfluenza 1 (PCR) Not Detected (NotDetected) Parainfluenza 2 (PCR) Not Detected (NotDetected) Parainfluenza 3 (PCR) Not Detected (NotDetected) Parainfluenza 4 (PCR) Not Detected (NotDetected) RSV (RT-PCR) Negative (Neg) RSV (PCR) Not Detected (NotDetected) Entero/Rhino (PCR) Not Detected (NotDetected) 02/18/25 Range/Units 17:20 WBC (4.8-10.8) K/ul RBC (4.20-5.40) M/uL Hgb (12.0-16.0) g/dl Hct (37.0-47.0) % MCV (80.0-100.0) fL MCH (25.0-34.0) pg MCHC (32.0-36.0) g/dL RDW Std Deviation (36.4-46.3) fL RDW Coeff of Damien (11.5-14.5) % Plt Count (130-400) K/uL MPV (9.4-12.4) fL Immature Gran % (Auto) % Neut % (Auto) % Lymph % (Auto) % Eagle % (Auto) % Eos % (Auto) % Baso % (Auto) % Neut # (Auto) (1.40-6.50) K/uL Lymph # (Auto) (1.20-3.40) K/uL Eagle # (Auto) (0.11-0.59) K/uL Eos # (Auto) (0.00-0.50) K/uL Baso # (Auto) (0.00-0.20) K/uL Immature Gran # (Auto) (0.01-0.20) K/uL Polychromasia Macrocytosis PT (9.0-12.0) Seconds INR (0.9-1.1) APTT (21-31) Seconds PTT Ratio Sodium (136-145) mmol/L Potassium (3.5-5.1) mmol/L Chloride (98-107) mmol/L Carbon Dioxide (21-32) mmol/L Anion Gap (3-11) BUN (6-23) mg/dl Creatinine (0.6-1.2) mg/dl Est Cr Clr Drug Dosing eGFR BUN/Creatinine Ratio (10-20) Glucose (70-99(Fasting)) mg/dl Calcium (8.6-10.3) mg/dl Total Bilirubin (0.2-1.0) mg/dl AST (13-39) U/L ALT (7-52) U/L Alkaline Phosphatase (34-104) U/L Troponin I High Sens (0-14) pg/ml Total Protein (6.0-8.3) gm/dl Albumin (3.4-5.0) gm/dl Globulin (2.5-4.0) gm/dl Albumin/Globulin Ratio (0.9-2) Nasal Screen MRSA (PCR) Negative (Negative) Adenovirus (PCR) (NotDetected) B. pertussis DNA (PCR) (NotDetected) B.parapertussis DNA PCR (NotDetected) C. pneumoniae DNA (PCR) (NotDetected) Coronavirus OC43 (PCR) (NotDetected) Coronavirus HKU1 (PCR) (NotDetected) Coronavirus 229E (PCR) (NotDetected) SARS-CoV-2 (PCR) (Negative) Coronavirus NL63 (PCR) (NotDetected) Human Metapneumovir PCR (NotDetected) Influenza Type A (PCR) (Neg) Influenza Type B (PCR) (Neg) M. pneumoniae (PCR) (NotDetected) Parainfluenza 1 (PCR) (NotDetected) Parainfluenza 2 (PCR) (NotDetected) Parainfluenza 3 (PCR) (NotDetected) Parainfluenza 4 (PCR) (NotDetected) RSV (RT-PCR) (Neg) RSV (PCR) (NotDetected) Entero/Rhino (PCR) (NotDetected) Administered Medications Apixaban (Apixaban 2.5 Mg Tab) 2.5 mg PO BID LOREN Stop: 03/20/25 20:59 Last Admin: 02/19/25 08:34 Dose: 2.5 mg Documented By: Admin: 02/18/25 23:35 Dose: 2.5 mg Documented By: IVONE Atorvastatin Calcium (Atorvastatin 40 Mg Tab) 80 mg PO HS LOREN Stop: 03/20/25 20:59 Last Admin: 02/18/25 23:34 Dose: 80 mg Documented By: IVONE Azelastine HCl (Azelastine Hcl 0.1% Nasal 200 Sprays/27,400 Mcg Btl) 1 sprays NA BID LOREN Stop: 03/20/25 20:59 Last Admin: 02/19/25 08:34 Dose: 1 sprays Documented By: Admin: 02/18/25 23:34 Dose: 1 sprays Documented By: IVONE Budesonide (Budesonide 0.25 Mg/2 Ml Vial (Pulmicort)) 0.25 mg NEB BIDR [facility] Stop: 03/20/25 20:38 Last Admin: 02/19/25 07:05 Dose: 0.25 mg Documented By: Admin: 02/18/25 21:00 Dose: 0.25 mg Documented By: BOB Carbidopa/Levodopa (Carbidopa/Levodop 10/100mg Tab) 2 tab PO TID LOREN Stop: 03/20/25 20:59 Last Admin: 02/19/25 08:35 Dose: 2 tab Documented By: Admin: 02/18/25 23:34 Dose: 2 tab Documented By: IVONE Cyanocobalamin (Cyanocobalamin (B-12) 500 Mcg Tablet) 1,000 mcg PO QAM LOREN Stop: 03/21/25 08:59 Last Admin: 02/19/25 08:35 Dose: 1,000 mcg Documented By: EP Erythromycin (Erythromycin Op Oint 5 Mg/Gm 3.5 Gm Tube) 1 appln OPR HS [facility] Stop: 02/28/25 20:59 Last Admin: 02/18/25 23:33 Dose: 1 appln Documented By: CR Fluticasone Propionate (Fluticasone Propionate Na Spr 16 Gm Btl) 2 sprays NA DAILY [facility]OREN Stop: 03/21/25 08:59 Last Admin: 02/19/25 08:36 Dose: 2 sprays Documented By: EP Formoterol Fumarate (Formoterol 20 Mcg/2 Ml Vial) 20 mcg NEB BIDR [facility] Stop: 03/20/25 20:38 Last Admin: 02/19/25 07:06 Dose: 20 mcg Documented By: Admin: 02/18/25 21:00 Dose: 20 mcg Documented By: BOB Guaifenesin (Guaifenesin 600 Mg Tabcr) 600 mg PO Q12 [facility] Stop: 03/20/25 20:59 Last Admin: 02/18/25 23:33 Dose: 600 mg Documented By: IVONE Cefepime HCl (Maxipime 2000mg) 1,000 mg in 10 mls @ 5 mls/min IV Q12H [facility]; Protocol Stop: 02/25/25 21:59 Last Admin: 02/18/25 21:44 Dose: 5 mls/min Documented By: PIEDAD Doxycycline Hyclate 100 mg/ (Dextrose) 100 mls @ 50 mls/hr IV Q12H [facility] Stop: 02/24/25 04:59 Last Infusion: 02/19/25 07:52 Dose: Infused Documented By: Admin: 02/19/25 05:39 Dose: 50 mls/hr Documented By: IVONE Levothyroxine Sodium (Levothyroxine Sodium 88 Mcg Tablet) 88 mcg PO DAILYBB [facility] Stop: 03/21/25 06:29 Last Admin: 02/19/25 05:41 Dose: 88 mcg Documented By: CR Magnesium Oxide (Magnesium Oxide 400 Mg Tab) 400 mg PO DAILY [facility] Stop: 03/21/25 08:59 Last Admin: 02/19/25 08:36 Dose: 400 mg Documented By: EP Prednisolone Acetate (Prednisolone Acetate 1% Op Susp 5 Ml Btl) 1 drops OPR HS [facility] Stop: 03/20/25 20:59 Last Admin: 02/18/25 23:35 Dose: 1 drops Documented By: IVONE Sodium Chloride (Sodium Chlor 7% 4 Ml Neb) 4 ml NEB BIDR [facility] Stop: 03/20/25 20:38 Last Admin: 02/19/25 07:05 Dose: 4 ml Documented By: Admin: 02/18/25 21:00 Dose: 4 ml Documented By: BOB Umeclidinium [place] (Umeclidinium [place] 62.5mcg/Blister 7 Puffs/Inhaler) 1 puffs INH DAILY [facility] Stop: 03/20/25 20:38 Last Admin: 02/18/25 23:33 Dose: 1 puffs Documented By: IVONE Discontinued Medications Acetaminophen (Acetaminophen 500 Mg Tab) 1,000 mg PO NOW STA Stop: 02/18/25 18:18 Last Admin: 02/18/25 18:34 Dose: 1,000 mg Documented By: irwin Albuterol (Albut/Ipratrop 3mg/0.5mg Neb 3 Ml Vial) 3 ml NEB NOW STA; Protocol Stop: 02/18/25 15:57 Last Admin: 02/18/25 16:44 Dose: 3 ml Documented By: ROXI Ceftriaxone Sodium (Rocephin) 2,000 mg in 50 mls @ 100 mls/hr IV NOW STA Stop: 02/18/25 16:33 Last Infusion: 02/18/25 17:13 Dose: Infused Documented By: irwin Admin: 02/18/25 16:43 Dose: 100 mls/hr Documented By: ROXI Doxycycline Hyclate 100 mg/ (Dextrose) 100 mls @ 50 mls/hr IV NOW STA Stop: 02/18/25 18:03 Last Infusion: 02/18/25 19:26 Dose: Infused Documented By: irwin Admin: 02/18/25 17:26 Dose: 50 mls/hr Documented By: irwin Ioversol (Optiray 320 100ml) 93 ml IV ONCE ONE Stop: 02/18/25 14:59 Last Admin: 02/18/25 14:58 Dose: 93 ml Documented By: ELIDA Methylprednisolone (Methylprednisolone 125 Mg/2 Ml Vial) 60 mg IV NOW STA Stop: 02/18/25 15:57 Last Admin: 02/18/25 16:43 Dose: 60 mg Documented By: ROXI Imaging Data Radiologist's Impression: Chest X-Ray 02/18/25 12:28 SINGLE VIEW CHEST CLINICAL HISTORY: Chest pain FINDINGS: An AP upright chest radiograph is compared to study dated 02/16/2025 and correlated with chest CT dated 11/17/2024. The heart is enlarged noting atherosclerotic calcification of the thoracic aorta. Findings of emphysema with superimposed chronic interstitial lung disease are similar to previous. There is increased coarsening of the interstitium as compared to previous. No lobar consolidation or pleural effusion is identified. Foci of parenchymal scarring are seen throughout both lungs. No pneumothorax is seen. The skeletal structures are osteopenic. There are chronic/healed left-sided rib fractures. IMPRESSION: 1. Cardiomegaly and emphysema with changes of superimposed chronic interstitial lung disease. 2. There is no evidence of lobar consolidation or pleural effusion. 3. There is apparent increased coarsening of the interstitium as compared to previous. Correlate clinically for evidence of fluid overload/mild congestive change. ACT 112: Negative or not required by law. Electronically signed by: Salo Morales M.D. 02/18/2025 1:[address] 02/18/25 14:21 CT SCAN OF THE CHEST WITH IV CONTRAST CLINICAL HISTORY: Dyspnea. Recent pneumonia. COMPARISON STUDY: Chest CT November 17, 2024. Chest radiograph performed earlier today. TECHNIQUE: Following the IV administration of 93 cc of Optiray 320, CT scan of the thorax was performed from the thoracic inlet to the upper abdomen. Images are reviewed in the axial, sagittal, and coronal planes. IV contrast was administered without complication. A dose lowering technique was utilized adhering to the principles of ALARA. CT DOSE: 551.79 mGy.cm FINDINGS: No central or lobar pulmonary emboli are identified. Segmental and subsegmental pulmonary arteries are suboptimally assessed on nondedicated exam. Moderate dilatation of the central pulmonary arteries is again noted. There is moderate cardiomegaly and extensive mitral annular calcification. There is no thoracic aortic dissection. There is extensive atherosclerotic plaque within the thoracic aorta. No pericardial effusion. There is no thoracic lymphadenopathy. No pneumothorax is present. There is a trace left pleural effusion. Moderate emphysema is noted. In addition, subpleural reticulation represents interstitial lung disease. There is mild associated bronchiectasis, most pronounced within the left lower lobe. Left lower lobe opacities favor atelectasis although pneumonia could appear similar. There may be mild pulmonary edema. A 1 cm subpleural nodular density within the right upper lobe on image 96 is unchanged since prior CT. This is indeterminate. Visualized portions of the upper abdomen demonstrate multiple bilateral renal calculi which measure up to 8 mm. Low- attenuation bilateral renal lesions represent cysts. There are small gallstones within the gallbladder. Multiple old thoracic spine compression fractures are unchanged. Exaggerated thoracic kyphosis is again noted. No acute fractures are identified. IMPRESSION: 1. Mild left lower lobe opacities with volume loss. This favors atelectasis although pneumonia could appear similar. 2. Emphysema and interstitial lung disease, as described above. 3. 1 cm subpleural nodular density within the right upper lobe. This may represent scarring although is indeterminate. A chest CT in 6 months is recommended. 4. Moderate cardiomegaly. Dilatation of the central pulmonary arteries which raises the possibility of pulmonary hypertension. 5. Trace left pleural effusion. ACT 112: Negative or not required by law. Electronically signed by: Nik Will M.D. 02/18/2025 3:15 PM Discharge Plan Visit Data Chief Complaint: Shortness of Breath/Dyspnea ED Provider: Cara Lindo Discharge Problem: Dyspnea, Acute exacerbation of chronic obstructive pulmonary disease (COPD) Patient Disposition: Admitted As Inpatient Condition: Fair Discharge Instructions Interventions: ED Discharge Assessment Last Done: 02/18/25 20:39
[2025-02-18 15:47] LABS: Chlamydia pneumoniae PCR Not Detected (NotDetected); Coronavirus 229E PCR Not Detected (NotDetected); Coronavirus CoV-2 (COVID19)PCR Not Detected (NotDetected); Coronavirus HKU1 PCR Not Detected (NotDetected); Coronavirus NL63 PCR Not Detected (NotDetected); Coronavirus OC43PCR Not Detected (NotDetected); Human Metapneumovirus PCR Not Detected (NotDetected); Parainfluenza Virus 1 PCR Not Detected (NotDetected); Parainfluenza Virus 2 PCR Not Detected (NotDetected); Parainfluenza Virus 3 PCR Not Detected (NotDetected); Parainfluenza Virus 4 PCR Not Detected (NotDetected); Respiratory Syncytial VirusPCR Not Detected (NotDetected); Rhinovirus/Enterovirus PCR Not Detected (NotDetected)
[2025-02-18] MEDS: cefTRIAXone SODIUM 2,000 MG/50 ML BAG IV STA (16:43)
[2025-02-18] MEDS: ALBUT/IPRATROP 3MG/0.5MG NEB 3 ML VIAL NEB STA (16:44)
--- NOTE | 2025-02-18 16:46 | History & Physical Report ---
Date of Service February 18, 2025 Assessment & Plan (1) LLL pneumonia: (2) Interstitial lung disease: (3) Pulmonary nodule: (4) Parkinson's disease: (5) Chronic respiratory failure with hypoxia: (6) Hypothyroidism: (7) CKD (chronic kidney disease), stage IV: (8) Chronic deep vein thrombosis (DVT): Plan 79yo female with chronic hypoxic respiratory failure, previous long-standing tobacco use (nearly 50 years), ILD, anemia, parkinsonism, pulmonary hypertension, chronic HFpEF, GERD with history of GI bleed, hypothyroidism, lumbar spinal stenosis, CKD stage IV, prediabetes, vitamin D deficiency, and osteoporosis. She was hospitalized at [facility] from 11/07 to 12/02 earlier this summer for ESBL ecoli bacteremia 2nd to UTI. Course complicated by acute/chronic CHF. Was discharged to [facility] for rehab. She had a lengthy rehab stay at [facility] and was discharged from there on 01/31/25 to her home in [place]. While at rehab was treated twice for pneumonia and was on two courses of antibiotics (levofloxacin & augmentin, respectively). About a week after getting home she again developed worsening cough/congestion/sputum production/wheezing/dyspnea. #LLL pneumonia - -as seen on CT chest today -this would be her 3rd episode of pneumonia over the last 2+ months -recurrent pneumonia due to aspiration from her parkinson's? due to mucous plugging/ILD? other? -since she was hospitalized <90 days prior will cover for gram negative pneumonia with cefepime IV; cont doxy for atypical coverage -check MRSA swab; if negative defer on MRSA coverage -respiratory BioFire negative -check legionella urine ag -send sputum cx -pulmonary toilet (incentive racheal, flutter valve, etc) #ILD with exacerbation - -although she has emphysematous changes on CT chest she had no obstruction on PFTs in 06/2024 -for ILD will continue steroids - IV solumedrol 30mg BID -add Incruse Ellipta 1 puff daily -add budesonide nebs BID -add formoterol nebs BID -add saline nebs BID -mucinex BID -duonebs prn -I don't see evidence of complicating pulmonary edema #chronic hypoxic respiratory failure on home O2 - -d/c from rehab on 2 liters NC O2 continuously -was on 3 liters of NC O2 at home last night, but during my admit assessment her sats were stable on 1 liter -chronic hypoxic resp failure 2nd to ILD, pulmonary HTN, etc. #RUL pulmonary nodule - -will need surveillance of this nodule post-d/c -high risk for lung ca in light of extensive smoking history #chronic HFpEF - -appears compensated today; defer on IV diuretics -hold tomorrow am's PO lasix #hypothyroidism - -TSH wnl -cont levothyroxine #chronic DVT - as seen on b/l LE dopplers 10/2024 - -cont Eliquis 2.5mg BID #parkinsonism - -cont sinemet 2 tabs TID -PT/OT while here #chronic right eye disease - -cont erythromycin eye ointment HS -cont prednisolone drops HS #chronic CKD stage 3 - -creatinine stable -check BMP in am #DVT proph - -Eliquis 2.5mg BID daughter updated at bedside during the visit History of Present Illness Chief Complaint: worsening cough, chest congestion, wheezing, dyspnea, increased O2 requirements Primary Care Provider: Katarina Peters DO 79yo female with chronic hypoxic respiratory failure, previous long-standing tobacco use (nearly 50 years), ILD, anemia, parkinsonism, pulmonary hypertension, chronic HFpEF, GERD with history of GI bleed, hypothyroidism, lumbar spinal stenosis, CKD stage IV, prediabetes, vitamin D deficiency, and osteoporosis. She was hospitalized at [facility] from 11/07 to 12/02 earlier this summer for ESBL ecoli bacteremia 2nd to UTI. Course complicated by acute/chronic CHF. Was discharged to [facility] for rehab. She had a lengthy rehab stay at [facility] and was discharged from there on 01/31/25 to her home in [place]. Per records she had 2 chest x-rays in December at [facility] showing b/l infiltrates. She was treated for pneumonia twice while at [facility] - first with course of levofloxacin, and 2nd with course of augmentin. She also had received steroids, nebs, etc. When she was discharged on 01/31 she finished a course of augmentin at home and was requiring 2 L NC O2. Patient states she was feeling ok upon discharge home with improved cough/wheezing/dyspnea. She felt tired but her appetite was ok and she initially did well upon transition home. However, about 1 week ago, she developed recurrent fatigue, weakness, and her cough worsened. Several days ago she developed green sputum production (sputum was clear prior to that). Dyspnea worsened and wheezing increased as well. Was using her neb machine about once daily. Last night her dyspnea worsened further and she increased her NC O2 from 2 liters to 3 liters. Due to her worsening symptoms she called 911 today and EMS brought her to [facility] for evaluation. CT chest appears to show LLL pneumonia. Received IV rocephin & doxycycline, a neb treatment, and solumedrol 60mg IV x 1. During my admission assessment her o2 sats were mid 90s on 1 liter NC O2. Daughter was at bedside providing supplemental history. Allergies Allergy/AdvReac Type Severity Reaction Status Date / Time azithromycin [From Zithromax] Allergy Intermediate HIVES Verified 02/18/25 15:40 nitrofurantoin Allergy Intermediate HIVES,ITCHI Verified 02/18/25 15:40 NG tramadol AdvReac Mild nausea Verified 02/18/25 15:40 Home Medications Medication Instructions Recorded Confirmed Type albuterol sulfate 90 mcg/actuation 2 inh inhalation DAILY PRN 11/08/23 02/18/25 History aerosol inhaler Shortness Of Breath Or Wheezing fluticasone propionate 50 2 spray intranasal DAILY PRN 11/08/23 02/18/25 History mcg/actuation nasal .allergy symptoms spray,suspension (Flonase Allergy Relief) acetaminophen 325 mg tablet 650 mg (2 x 325 mg) PO Q6 PRN 11/15/23 02/18/25 Rx (Tylenol) fever or pain #60 tabs famotidine 20 mg tablet 20 mg PO DAILY #90 tabs 12/25/23 02/18/25 Rx folic acid 1 mg tablet 1 mg PO QAM #90 tabs 12/25/23 02/18/25 Rx thiamine HCl (vitamin B1) 100 mg 200 mg PO QAM 01/06/24 02/18/25 History tablet pyridoxine (vitamin B6) 100 mg 100 mg PO QAM 03/03/24 02/18/25 History tablet valacyclovir 500 mg tablet 500 mg PO DAILY 03/19/24 02/18/25 History atorvastatin 80 mg tablet 80 mg PO HS 05/06/24 02/18/25 History magnesium 200 mg tablet 200 mg PO DAILY 09/24/24 02/18/25 History carbidopa 10 mg-levodopa 100 mg 2 tab PO TID 11/17/24 02/18/25 History tablet cyanocobalamin (vitamin B-12) 1,000 mcg PO QAM 11/17/24 02/18/25 History 1,000 mcg tablet (Vitamin B-12) denosumab 60 mg/mL subcutaneous 60 mg subcut .EVERY 6 MONTHS 11/17/24 02/18/25 History syringe (Prolia) doxepin 3 mg tablet 3 mg PO HS PRN Sleep 11/17/24 02/18/25 History erythromycin 5 mg/gram (0.5 %) eye 1 applic OPR HS 11/17/24 02/18/25 History ointment levothyroxine 88 mcg tablet 88 mcg PO DAILYBB 11/17/24 02/18/25 History peg 3350-electrolytes 236 240 ml PO Q10M #4,000 mL 11/17/24 02/18/25 Rx gram-22.74 gram-6.74 gram-5.86 gram solution (Golytely) prednisolone acetate 1 % eye 1 drp OPR HS 11/17/24 02/18/25 History drops,suspension apixaban 2.5 mg tablet (Eliquis) 2.5 mg PO BID #180 tabs 11/18/24 02/18/25 Rx furosemide 20 mg tablet 20 mg PO QAM #10 tabs 12/02/24 02/18/25 Rx ipratropium 0.5 mg-albuterol 3 mg 3 ml inhalation .Q4-6HRS PRN 02/18/25 02/18/25 History (2.5 mg base)/3 mL nebulization dyspnea soln Past Med/Surg History Problem List Pulmonary nodule LLL pneumonia Acute exacerbation of chronic obstructive pulmonary disease (COPD) (Acute) Dyspnea (Acute) Bacteremia Acute heart failure Septic shock Acute kidney injury superimposed on stage 3a chronic kidney disease Sepsis (Acute) Acute UTI (Acute) Fullness in right ear Nasal crusting Nasal septal erosion Anemia (Acute) Interstitial lung disease Parkinsonism Pulmonary hypertension Chronic respiratory failure with hypoxia Mitral annular calcification Mitral stenosis Hypomagnesemia (Acute) Lumbar spinal stenosis Hypothyroidism History of compression fracture of vertebral column (~12/04/18) Thoracic Pulmonary emphysema CKD (chronic kidney disease), stage IV 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, Mobitz type II Peripheral artery disease Prediabetes Iron deficiency anemia Vitamin D deficiency (Acute) Primary hypercoagulable state (Chronic) Osteoporosis (Chronic) History of follicular lymphoma Sensorineural hearing loss (SNHL) of both ears Ataxia Secondary hyperparathyroidism of renal origin Medical History Parkinson's disease Abnormal chest CT Chronic dyspnea Stage 1 skin ulcer of sacral region Kidney stones Hallucinations Compression fracture of lumbar spine, non-traumatic (~09/23/23) seeing orthopedics Closed T2 fracture (~10/08/23) Parkinsons disease Type 2 diabetes mellitus without complication HTN (hypertension) DVT (deep venous thrombosis) Hyponatremia Megaloblastic anemia Diet-controlled diabetes mellitus History of ischemic stroke Second degree AV block, Mobitz type I Chronic deep vein thrombosis (DVT) Cardiomyopathy Chronic GERD Chronic fatigue syndrome Chronic laryngitis Cigarette smoker motivated to quit 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 Depression Dermatitis, eczematoid Diabetes mellitus (11/29/12) Hearing loss Hoarseness Ischemic colitis Low back pain NSTEMI (non-ST elevated myocardial infarction) Recurrent UTI SNHL (sensorineural hearing loss) Secondary hyperparathyroidism (of renal origin) Solitary pulmonary nodule Subsequent non-ST elevation (NSTEMI) myocardial infarction Vertigo GERD (gastroesophageal reflux disease) Chronic kidney disease Hypothyroidism (acquired) GI bleed Chronic deep vein thrombosis of left lower extremity Hyperlipidemia Thyroid disease Surgical History History of lumbar laminectomy for spinal cord decompression History of tubal ligation History of D&C History of Hx of colonoscopy Family History Mother , age 76 with leukemia Leukemia Hypertension Father , age 86 with heart issues Myocardial infarction Diabetes Other Family history non-contributory Denies family history of Ovarian cancer Prostate cancer Breast cancer Lung cancer Social History (Updated 02/18/25 @ 19:59 by Isidro Huff MD) Smoking Status: Former smoker Tobacco Type: Cigarettes Age Started Using Tobacco: 17; Age Quit Using Tobacco: 73; packs per day: 1; Second Hand Exposure: No; Do You Dip or Chew Tobacco: No; Hx Alcohol Use: No Hx Substance Use: No Preferred Language: Greenlandic Communication Ability: Effective Visual Impairment: No Limitations Hearing Ability: Use of Hearing Aid Terrazzo Journe[employer] Required: No Beliefs That Will Affect Care: None marital status: Current Living Situation: Alone Current Living Situation Comment: home alone, recently at [facility] current occupational status: retired 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 How many Children do You have: 3 How many Children do You have Comment: 1 daughter is Other Information That Helps Us Care for You: No Feels Safe at Home: Yes Safety Concerns: Feels Safe At This Time Childhood Exposure to Second-Hand Smoke: Yes Diet: regular caffeine: No Dental Care, Regularly: No Physical Activity Frequency: Does not Exercise Seatbelt Use: always Sunscreen Use: No Do you think of yourself as: straight/heterosexual Gender Identity: Female Assistive Devices: Oxygen - Continuous and Walker Review of Systems Review of Systems: gen - no fevers or chills; +weight loss - 20+ pounds over the last 6-12 months; appetite wnl the last few days eyes - chronic right eye issues and visual loss HENT - no dysphagia, right ear pain, chronic sinus congestion CV - no chest pain, no edema pulm - cough, congestion, sputum, wheezing, dyspnea, MORGAN GI - no nausea, emesis, abd pain, diarrhea or blood per rectum - no dysuria musculo - no myalgias endo - no diabetes skin - no rash neuro - headache, frontal, for several days Physical Exam Physical Exam: gen - thin, severe tremors from parkinson's, no respiratory distress, pleasant; awake/alert eyes - right eye - pterygium over the iris? other etiology? PERRL HENT - b/l TMs clear, minimal cerumen right ear canal; nose clear; mouth - MMM, no thrush or lesions neck - no JVD; no lymph nodes; no goiter heart - RRR, s1 s2, no murmur lungs - diffuse wheezes b/l with fine rales bases L>R, no increased work of breathing abd - soft NT ND BS+ ext - no edema, pulses b/l feet 2+ neuro - strength 5/5 x 4 exts, DTRs 1+ b/l, tremors b/l arms, no facial droop skin - no rash psych - a/o x 3 Results & Data Results & Data Vital Signs (Past 12 Hours) Vital Signs Temp Pulse Resp BP Pulse Ox O2 Del Method O2 Flow Rate 02/18/25 15:06 88 21 144/65 H 100 02/18/25 14:06 77 22 139/66 100 Nasal Cannula 3 02/18/25 13:54 80 23 100 Nasal Cannula 3 02/18/25 13:43 125 H 02/18/25 13:39 100 Nasal Cannula 3 02/18/25 13:39 100 Nasal Cannula 3 02/18/25 12:21 36.4 C L 87 22 114/54 L 100 Nasal Cannula 3 Laboratory Results Laboratory Results - last 24 hr 02/18/25 02/18/25 02/18/25 13:03 14:40 16:10 WBC 7.86 RBC 3.09 L Hgb 11.3 L Hct 35.9 L MCV 116.2 H MCH 36.6 H MCHC 31.5 L RDW Std Deviation 61.2 H RDW Coeff of Damien 14.4 Plt Count 324 MPV 10.4 Immature Gran % (Auto) 0.5 Neut % (Auto) 70.9 Lymph % (Auto) 19.6 Stokes % (Auto) 7.0 Eos % (Auto) 1.4 Baso % (Auto) 0.6 Neut # (Auto) 5.57 Lymph # (Auto) 1.54 Stokes # (Auto) 0.55 Eos # (Auto) 0.11 Baso # (Auto) 0.05 Immature Gran # (Auto) 0.04 Polychromasia 1+ Macrocytosis Present PT 10.2 INR 0.9 APTT 25 PTT Ratio 0.9 Sodium 140 Potassium 4.4 Chloride 104 Carbon Dioxide 34 H Anion Gap 2 L BUN 24 H Creatinine 1.36 H Est Cr Clr Drug Dosing Not Reportable eGFR 39.13 BUN/Creatinine Ratio 17.6 Glucose 113 H Calcium 9.1 Total Bilirubin 0.3 AST 29 ALT 8 Alkaline Phosphatase 73 Troponin I High Sens 20.3 H 21.2 H Total Protein 7.5 Albumin 3.8 Globulin 3.7 Albumin/Globulin Ratio 1.0 Nasal Screen MRSA (PCR) Adenovirus (PCR) Not Detected B. pertussis DNA (PCR) Not Detected B.parapertussis DNA PCR Not Detected C. pneumoniae DNA (PCR) Not Detected Coronavirus OC43 (PCR) Not Detected Coronavirus HKU1 (PCR) Not Detected Coronavirus 229E (PCR) Not Detected SARS-CoV-2 (PCR) NEGATIVE Not Detected Coronavirus NL63 (PCR) Not Detected Human Metapneumovir PCR Not Detected Influenza Type A (PCR) Negative Not Detected Influenza Type B (PCR) Negative Not Detected Urine Legionella Ag M. pneumoniae (PCR) Not Detected Parainfluenza 1 (PCR) Not Detected Parainfluenza 2 (PCR) Not Detected Parainfluenza 3 (PCR) Not Detected Parainfluenza 4 (PCR) Not Detected RSV (RT-PCR) Negative RSV (PCR) Not Detected Entero/Rhino (PCR) Not Detected Diagnostic Findings Chest X-Ray 02/18/25 12:28 SINGLE VIEW CHEST CLINICAL HISTORY: Chest pain FINDINGS: An AP upright chest radiograph is compared to study dated 02/16/2025 and correlated with chest CT dated 11/17/2024. The heart is enlarged noting atherosclerotic calcification of the thoracic aorta. Findings of emphysema with superimposed chronic interstitial lung disease are similar to previous. There is increased coarsening of the interstitium as compared to previous. No lobar consolidation or pleural effusion is identified. Foci of parenchymal scarring are seen throughout both lungs. No pneumothorax is seen. The skeletal structures are osteopenic. There are chronic/healed left-sided rib fractures. IMPRESSION: 1. Cardiomegaly and emphysema with changes of superimposed chronic interstitial lung disease. 2. There is no evidence of lobar consolidation or pleural effusion. 3. There is apparent increased coarsening of the interstitium as compared to previous. Correlate clinically for evidence of fluid overload/mild congestive change. ACT 112: Negative or not required by law. Electronically signed by: Salo Morales M.D. 02/18/2025 1:[address] 02/18/25 14:21 CT SCAN OF THE CHEST WITH IV CONTRAST CLINICAL HISTORY: Dyspnea. Recent pneumonia. COMPARISON STUDY: Chest CT November 17, 2024. Chest radiograph performed earlier today. TECHNIQUE: Following the IV administration of 93 cc of Optiray 320, CT scan of the thorax was performed from the thoracic inlet to the upper abdomen. Images are reviewed in the axial, sagittal, and coronal planes. IV contrast was administered without complication. A dose lowering technique was utilized adhering to the principles of ALARA. CT DOSE: 551.79 mGy.cm FINDINGS: No central or lobar pulmonary emboli are identified. Segmental and subsegmental pulmonary arteries are suboptimally assessed on nondedicated exam. Moderate dilatation of the central pulmonary arteries is again noted. There is moderate cardiomegaly and extensive mitral annular calcification. There is no thoracic aortic dissection. There is extensive atherosclerotic plaque within the thoracic aorta. No pericardial effusion. There is no thoracic lymphadenopathy. No pneumothorax is present. There is a trace left pleural effusion. Moderate emphysema is noted. In addition, subpleural reticulation represents interstitial lung disease. There is mild associated bronchiectasis, most pronounced within the left lower lobe. Left lower lobe opacities favor atelectasis although pneumonia could appear similar. There may be mild pulmonary edema. A 1 cm subpleural nodular density within the right upper lobe on image 96 is unchanged since prior CT. This is indeterminate. Visualized portions of the upper abdomen demonstrate multiple bilateral renal calculi which measure up to 8 mm. Low- attenuation bilateral renal lesions represent cysts. There are small gallstones within the gallbladder. Multiple old thoracic spine compression fractures are unchanged. Exaggerated thoracic kyphosis is again noted. No acute fractures are identified. IMPRESSION: 1. Mild left lower lobe opacities with volume loss. This favors atelectasis although pneumonia could appear similar. 2. Emphysema and interstitial lung disease, as described above. 3. 1 cm subpleural nodular density within the right upper lobe. This may represent scarring although is indeterminate. A chest CT in 6 months is recommended. 4. Moderate cardiomegaly. Dilatation of the central pulmonary arteries which raises the possibility of pulmonary hypertension. 5. Trace left pleural effusion. ACT 112: Negative or not required by law. Electronically signed by: Nik Will M.D. 02/18/2025 3:15 PM ECG Additional Comments: EKG - my reading - NSR, left axis deviation, left atrial enlargement, no ST changes Code Status & VTE Plan Code Status full code, but not 100% certain; will talk with daughters about this PG Care Time/CCT Total # of Minutes Spent Total Time Spent with Patient: Total time spent is greater than 50% in coordination of care (as documented) at patient's floor/unit and/or counseling patient: Coding Level of Care Code 85158 INT INP/OBS CARE 3/75MIN Diagnoses LLL pneumonia J18.9 Interstitial lung disease J84.9 Pulmonary nodule R91.1 Parkinson's disease G20.A1 Chronic respiratory failure with hypoxia J96.11 Hypothyroidism, unspecified type E03.9 Hypothyroidism type: unspecified CKD (chronic kidney disease), stage IV N18.4 Chronic deep vein thrombosis (DVT) I82.509 (6) Hypothyroidism Hypothyroidism type: unspecified Qualified Code(s): E03.9 - Hypothyroidism, unspecified
[2025-02-18] MEDS: DOXYCYCLINE HYCLATE 100 MG in DEXTROSE 5% MINI-B 100 ML IV STA (17:26)
--- NOTE | 2025-02-18 17:31 | Electrocardiogram Report ---
Test Reason : Blood Pressure : */* mmHG Vent. Rate : 82 BPM Atrial Rate : 82 BPM P-R Int : 178 ms QRS Dur : 86 ms QT Int : 376 ms P-R-T Axes : 45 -22 50 degrees QTcB Int : 439 ms Normal sinus rhythm Possible Left atrial enlargement Borderline ECG When compared with ECG of 17-Nov-2024 23:58, No significant change was found Confirmed by Suman Trujillo ([id number]) on 02/18/2025 5:30:57 PM Referred By: REFERRED SELF Confirmed By: Suman Trujillo
[2025-02-18] MEDS: ACETAMINOPHEN 500 MG TAB PO STA (18:34)
[2025-02-18] MEDS ORDERED: ONDANSETRON INJ 2 MG/ML 2 ML VIAL IV PRN (20:39)
[2025-02-18] MEDS ORDERED: ALBUT/IPRATROP 3MG/0.5MG NEB 3 ML VIAL INH PRN (20:39)
[2025-02-18] MEDS: SODIUM CHLOR 7% 4 ML NEB NEB SCH (21:00)
[2025-02-18] MEDS: BUDESONIDE 0.25 MG/2 ML VIAL (PULMICORT) NEB SCH (21:00)
[2025-02-18] MEDS: FORMOTEROL 20 MCG/2 ML VIAL NEB SCH (21:00)
[2025-02-18] MEDS: CEFEPIME 1000MG 1,000 MG/10 ML SYR IV SCH (21:44)
[2025-02-18] MEDS: guaiFENesin 600 MG TABCR PO SCH (23:33)
[2025-02-18] MEDS: ERYTHROMYCIN OP OINT 5 MG/GM 3.5 GM TUBE OPR SCH (23:33)
[2025-02-18] MEDS: UMECLIDINIUM BROMIDE 62.5MCG/BLISTER 7 PUFFS/INHALER INH SCH (23:33)
[2025-02-18] MEDS: CARBIDOPA/LEVODOP 10/100MG TAB PO SCH (23:34)
[2025-02-18] MEDS: AZELASTINE HCL 0.1% NASAL 200 SPRAYS/27,400 MCG BTL SCH (23:34)
[2025-02-18] MEDS: ATORVASTATIN 40 MG TAB PO SCH (23:34)
[2025-02-18] MEDS: APIXABAN 2.5 MG TAB PO SCH (23:35)
[2025-02-18] MEDS: prednisoLONE acetate 1% OP SUSP 5 ML BTL OPR SCH (23:35)
[2025-02-19] MEDS: DOXYCYCLINE HYCLATE 100 MG in DEXTROSE 5% MINI-B 100 ML IV SCH (05:39)
[2025-02-19] MEDS: LEVOTHYROXINE SODIUM 88 MCG TABLET PO SCH (05:41)
[2025-02-19 06:51] LABS: Anion Gap 3.0 (3-11); Blood Urea Nitrogen 22.0 mg/dl (6-23); Calcium 8.7 mg/dl (8.6-10.3); Carbon Dioxide 30.0 mmol/L (21-32); Chloride 106.0 mmol/L (98-107); Creatinine Clr Calc Pharmacy 20.4 ml/min; Glucose 146.0 mg/dl (70-99(Fasting)); Potassium 4.8 mmol/L (3.5-5.1); Sodium 139.0 mmol/L (136-145)
[2025-02-19] MEDS: CYANOCOBALAMIN (B-12) 500 MCG TABLET PO SCH (08:35)
[2025-02-19] MEDS: FLUTICASONE PROPIONATE NA SPR 16 GM BTL SCH (08:36)
[2025-02-19] MEDS: MAGNESIUM OXIDE 400 MG TAB PO SCH (08:36)
[2025-02-19] MEDS: PYRIDOXINE HCL 50 MG TAB PO SCH (08:37)
[2025-02-19] MEDS: FOLIC ACID 1 MG TAB PO SCH (08:37)
[2025-02-19] MEDS: THIAMINE HCL 100 MG TAB PO SCH (08:38)
[2025-02-19] MEDS: ACETAMINOPHEN 325 MG TAB PO PRN (08:47)
[2025-02-19] MEDS: FAMOTIDINE 20 MG TAB PO SCH (08:47)
--- NOTE | 2025-02-19 16:05 | Hospitalist Progress Note ---
Date of Service February 19, 2025 Assessment & Plan (1) LLL pneumonia: (2) Interstitial lung disease: (3) Pulmonary nodule: (4) Parkinson's disease: (5) Chronic respiratory failure with hypoxia: (6) Hypothyroidism: (7) CKD (chronic kidney disease), stage IV: (8) Chronic deep vein thrombosis (DVT): Plan 79yo female with chronic hypoxic respiratory failure, previous long-standing tobacco use (nearly 50 years), ILD, anemia, parkinsonism, pulmonary hypertension, chronic HFpEF, GERD with history of GI bleed, hypothyroidism, lumbar spinal stenosis, CKD stage IV, prediabetes, vitamin D deficiency, and osteoporosis. She was hospitalized at [facility] from 11/07 to 12/02 earlier this summer for ESBL ecoli bacteremia 2nd to UTI. Course complicated by acute/chronic CHF. Was discharged to [facility] for rehab. She had a lengthy rehab stay at [facility] and was discharged from there on 01/31/25 to her home in [place]. While at rehab was treated twice for pneumonia and was on two courses of antibiotics (levofloxacin & augmentin, respectively). About a week after getting home she again developed worsening cough/congestion/sputum production/wheezing/dyspnea. #LLL pneumonia - -as seen on CT chest at ER presentation -this would be her 3rd episode of pneumonia over the last 2+ months -recurrent pneumonia due to aspiration from her parkinson's? due to mucous plugging/ILD? other? -since she was hospitalized <90 days prior will cover for gram negative pneumonia with cefepime IV; cont doxy for atypical coverage -day #2 of both -check MRSA swab; if negative defer on MRSA coverage -respiratory BioFire negative -legionella urine ag pending -sputum cx thus far negative -cont pulmonary toilet (incentive racheal, flutter valve, etc) #ILD with exacerbation - -although she has emphysematous changes on CT chest she had no obstruction on PFTs in 06/2024 -for ILD will continue steroids - IV solumedrol, but lower dose to 20mg BID -cont Incruse Ellipta 1 puff daily -cont budesonide nebs BID -cont formoterol nebs BID -cont saline nebs BID -cont mucinex BID -duonebs prn -question of mild JVD with some edema and course BS -- pulmonary edema? will give 1 dose of lasix 20mg IV x 1 and follow clinical response -check BMP am #chronic hypoxic respiratory failure on home O2 - -d/c from rehab on 2 liters NC O2 continuously -was on 3 liters of NC O2 at home last night, but during my admit assessment her sats were stable on 1 liter -chronic hypoxic resp failure 2nd to ILD, pulmonary HTN, etc. #RUL pulmonary nodule - -will need surveillance of this nodule post-d/c -high risk for lung ca in light of extensive smoking history #chronic HFpEF - -lasix 20mg IV x 1 for ?pulmonary edema #hypothyroidism - -TSH wnl -cont levothyroxine #chronic DVT - as seen on b/l LE dopplers 10/2024 - -cont Eliquis 2.5mg BID #parkinsonism - -cont sinemet 2 tabs TID -PT/OT while here #chronic right eye disease - -cont erythromycin eye ointment HS -cont prednisolone drops HS -patient wants 2nd opinion re: this issue - will give her options and help her with a f/u appt after discharge #chronic CKD stage 3 - -creatinine remains stable -check BMP in am #DVT proph - -Eliquis 2.5mg BID #macrocytosis - -has seen heme/onc earlier in 2024 -underwent bone marrow bx - negative for malignancy and multiple myeloma -B12 level in 2023 - >1500 -no folate level in about a year -TSH earlier this month wnl -plan recheck of folate while here; defer on B12 recheck since last year's level was so robust #constipation - -she does not like miralax -will add senna 2 tabs daily will update pt's daughter this weekend PT, OT Admission and Anticipated Discharge Date Admission Date: February 18, 2025 Subjective patient overall feels better states her breathing is better, can take deeper breaths still wheezing, however, and still with cough with some sputum appetite is fair c/o constipation tele overnight wnl Review of Systems Review of Systems: CV - no chest pain pulm - no dyspnea at rest GI - no N/V eye - requests "2nd opinion" for her right eye - asks about eye providers in t own Physical Exam Physical Exam: gen - thin, severe tremors from parkinson's, no respiratory distress HENT - MMM, no thrush or lesions neck - ? mild JVD heart - RRR, s1 s2, no murmur lungs - significantly improved wheezes b/l; mild fine rales bases L>R, no increased work of breathing abd - soft NT ND BS+ ext - trace edema b/l, pulses b/l feet 2+ neuro - tremors b/l arms and face/neck psych - a/o x 3 Results & Data Results & Data Vital Signs (Past 12 Hours) Vital Signs Temp Pulse Pulse Resp BP Pulse Ox O2 Del Method 02/19/25 15:50 36.4 C L 94 H 17 113/66 98 Nasal Cannula 02/19/25 15:49 96 H 02/19/25 11:50 36.6 C 96 H 17 124/72 100 Nasal Cannula 02/19/25 11:00 88 02/19/25 10:54 Nasal Cannula 02/19/25 08:34 37.0 C 91 H 17 121/72 97 Nasal Cannula 02/19/25 07:06 90 21 97 Nasal Cannula O2 Flow Rate 02/19/25 15:50 2 02/19/25 15:49 02/19/25 11:50 2 02/19/25 11:00 02/19/25 10:54 3 02/19/25 08:34 2 02/19/25 07:06 3 Laboratory Results Laboratory Results - last 48 hr 02/18/25 02/18/25 02/18/25 13:03 14:40 16:10 WBC 7.86 RBC 3.09 L Hgb 11.3 L Hct 35.9 L MCV 116.2 H MCH 36.6 H MCHC 31.5 L RDW Std Deviation 61.2 H RDW Coeff of Damien 14.4 Plt Count 324 MPV 10.4 Immature Gran % (Auto) 0.5 Neut % (Auto) 70.9 Lymph % (Auto) 19.6 Bates % (Auto) 7.0 Eos % (Auto) 1.4 Baso % (Auto) 0.6 Neut # (Auto) 5.57 Lymph # (Auto) 1.54 Bates # (Auto) 0.55 Eos # (Auto) 0.11 Baso # (Auto) 0.05 Immature Gran # (Auto) 0.04 Polychromasia 1+ Macrocytosis Present PT 10.2 INR 0.9 APTT 25 PTT Ratio 0.9 Sodium 140 Potassium 4.4 Chloride 104 Carbon Dioxide 34 H Anion Gap 2 L BUN 24 H Creatinine 1.36 H Est Cr Clr Drug Dosing Not Reportable eGFR 39.13 BUN/Creatinine Ratio 17.6 Glucose 113 H Calcium 9.1 Magnesium Total Bilirubin 0.3 AST 29 ALT 8 Alkaline Phosphatase 73 Troponin I High Sens 20.3 H 21.2 H Total Protein 7.5 Albumin 3.8 Globulin 3.7 Albumin/Globulin Ratio 1.0 Nasal Screen MRSA (PCR) Adenovirus (PCR) Not Detected B. pertussis DNA (PCR) Not Detected B.parapertussis DNA PCR Not Detected C. pneumoniae DNA (PCR) Not Detected Coronavirus OC43 (PCR) Not Detected Coronavirus HKU1 (PCR) Not Detected Coronavirus 229E (PCR) Not Detected SARS-CoV-2 (PCR) NEGATIVE Not Detected Coronavirus NL63 (PCR) Not Detected Human Metapneumovir PCR Not Detected Influenza Type A (PCR) Negative Not Detected Influenza Type B (PCR) Negative Not Detected M. pneumoniae (PCR) Not Detected Parainfluenza 1 (PCR) Not Detected Parainfluenza 2 (PCR) Not Detected Parainfluenza 3 (PCR) Not Detected Parainfluenza 4 (PCR) Not Detected RSV (RT-PCR) Negative RSV (PCR) Not Detected Entero/Rhino (PCR) Not Detected Diagnostic Findings Microbiology 02/19/25 07:30 Sputum, Expectorated Gram Stain - Final 02/19/25 07:30 Sputum, Expectorated Sputum Culture - Preliminary Moderate normal hiram present, final report to follow. PG Care Time/CCT Total # of Minutes Spent Total Time Spent with Patient: Total time spent is greater than 50% in coordination of care (as documented) at patient's floor/unit and/or counseling patient: Coding Level of Care Code 24347 SUB INP/OBS CARE 3/50MIN Diagnoses LLL pneumonia J18.9 Interstitial lung disease J84.9 Pulmonary nodule R91.1 Parkinson's disease G20.A1 Chronic respiratory failure with hypoxia J96.11 Hypothyroidism, unspecified type E03.9 Hypothyroidism type: unspecified CKD (chronic kidney disease), stage IV N18.4 Chronic deep vein thrombosis (DVT) I82.509 (6) Hypothyroidism Hypothyroidism type: unspecified Qualified Code(s): E03.9 - Hypothyroidism, unspecified
[2025-02-19] MEDS: FUROSEMIDE INJ 20 MG/2 ML VIAL IV ONE (16:43)
[2025-02-20] MEDS: SENNA 8.6 MG TAB PO SCH (08:29)
[2025-02-20 08:30] LABS: Anion Gap 6.0 (3-11); Calcium 8.6 mg/dl (8.6-10.3); Carbon Dioxide 29.0 mmol/L (21-32); Chloride 102.0 mmol/L (98-107); Magnesium 1.9 mg/dl (1.7-2.4); Potassium 4.9 mmol/L (3.5-5.1); Sodium 137.0 mmol/L (136-145)
[2025-02-20 08:36] LABS: Blood Urea Nitrogen 33.0 mg/dl (6-23); Creatinine Clr Calc Pharmacy 16.3 ml/min; Glucose 157.0 mg/dl (70-99(Fasting))
--- NOTE | 2025-02-20 13:09 | Hospitalist Progress Note ---
Date of Service February 20, 2025 Assessment & Plan (1) LLL pneumonia: (2) Interstitial lung disease: (3) Pulmonary nodule: (4) Parkinson's disease: (5) Chronic respiratory failure with hypoxia: (6) Hypothyroidism: (7) CKD (chronic kidney disease), stage IV: (8) Chronic deep vein thrombosis (DVT): Plan 79yo female with chronic hypoxic respiratory failure, previous long-standing tobacco use (nearly 50 years), ILD, anemia, parkinsonism, pulmonary hypertension, chronic HFpEF, GERD with history of GI bleed, hypothyroidism, lumbar spinal stenosis, CKD stage IV, prediabetes, vitamin D deficiency, and osteoporosis. She was hospitalized at [facility] from 11/07 to 12/02 earlier this summer for ESBL ecoli bacteremia 2nd to UTI. Course complicated by acute/chronic CHF. Was discharged to [facility] for rehab. She had a lengthy rehab stay at [facility] and was discharged from there on 01/31/25 to her home in [place]. While at rehab was treated twice for pneumonia and was on two courses of antibiotics (levofloxacin & augmentin, respectively). About a week after getting home she again developed worsening cough/congestion/sputum production/wheezing/dyspnea. #LLL pneumonia - -as seen on CT chest at ER presentation -this would be her 3rd episode of pneumonia over the last 2+ months -recurrent pneumonia due to aspiration from her parkinson's? due to mucous plugging/ILD? other? -since she was hospitalized <90 days prior will cover for gram negative pneumonia with cefepime IV; cont doxy for atypical coverage -day #3 of both -MRSA swab negative; MRSA coverage deferred -respiratory BioFire negative -legionella urine ag pending -sputum cx negative -cont pulmonary toilet (incentive racheal, flutter valve, etc) #ILD with exacerbation - improved - -although she has emphysematous changes on CT chest she had no obstruction on PFTs in 06/2024 -for ILD will continue steroids but stop IV solumedrol and change to PO prednisone starting tomorrow - 30mg daily, followed by taper -cont Incruse Ellipta 1 puff daily -cont budesonide nebs BID -cont formoterol nebs BID -cont saline nebs BID -cont mucinex BID -duonebs prn -gave lasix x 1 yesterday with prompt rise in BUN & Cr thus no volume overl oad/pulm edema #chronic hypoxic respiratory failure on home O2 - -d/c from rehab on 2 liters NC O2 continuously -was on 3 liters of NC O2 at home last night, but during my admit assessment her sats were stable on 1 liter -chronic hypoxic resp failure 2nd to ILD, pulmonary HTN, etc. #RUL pulmonary nodule - -will need surveillance of this nodule post-d/c -high risk for lung ca in light of extensive smoking history #chronic HFpEF - -lasix 20mg IV x 1 for ?pulmonary edema -this led to rise in BUN and Cr within 24 hours; this argues that no pulm edema was/is present (no CHF exacerbation) #hypothyroidism - -TSH wnl -cont levothyroxine #chronic DVT - as seen on b/l LE dopplers 10/2024 - -cont Eliquis 2.5mg BID #parkinsonism - -cont sinemet 2 tabs TID -PT/OT while here #chronic right eye disease - -cont erythromycin eye ointment HS -cont prednisolone drops HS -patient wants 2nd opinion re: this issue - will give her options and help her with a f/u appt after discharge #chronic CKD stage 3 - -creatinine modestly higher today after IV lasix given yesterday -no diuretics today -check BMP in am again #DVT proph - -Eliquis 2.5mg BID #macrocytosis - -has seen heme/onc earlier in 2024 -underwent bone marrow bx - negative for malignancy and multiple myeloma -B12 level in 2023 - >1500 -no folate level in about a year - recheck tomorrow -TSH earlier this month wnl #constipation - -she does not like miralax -added senna 2 tabs daily updated pt's daughter by phone this pm, 02/20 PT, OT evals pending to determine if strong enough to return home (has extensive caregivers except for at night-time) appreciate speech eval - needs video swallow Admission and Anticipated Discharge Date Admission Date: February 18, 2025 Subjective continues to feel better cough is improved minimal sputum no dyspnea anxious to go home has been out of bed but limited eating well speech saw in consult - recommended video swallow tele - NSR Review of Systems Review of Systems: cv - no cp or tightness, no edema pulm - mild wheezing still GI - no N/V, moving bowels (today) Physical Exam Physical Exam: gen - thin, severe tremors from parkinson's, no respiratory distress, looks well today HENT - MMM, no thrush or lesions neck - no JVD heart - RRR, s1 s2, no murmur lungs - mild wheezes b/l only; mild fine rales bases, no increased work of breathing abd - soft NT ND BS+ ext - no edema b/l, pulses b/l feet 2+ neuro - tremors b/l arms and face/neck psych - a/o x 3 Results & Data Results & Data Vital Signs (Past 12 Hours) Vital Signs Temp Pulse Pulse Resp BP Pulse Ox O2 Del Method 02/20/25 11:31 36.4 C L 88 17 105/61 100 Nasal Cannula 02/20/25 07:41 36.4 C L 80 19 146/80 H 97 Nasal Cannula 02/20/25 07:24 86 20 97 Nasal Cannula 02/20/25 07:00 71 02/20/25 03:07 36.6 C 88 17 103/78 94 Nasal Cannula O2 Flow Rate 02/20/25 11:31 3 02/20/25 07:41 3 02/20/25 07:24 3 02/20/25 07:00 02/20/25 03:07 2 Laboratory Results Laboratory Results - last 24 hr 02/20/25 07:31 Sodium 137 Potassium 4.9 Chloride 102 Carbon Dioxide 29 Anion Gap 6 BUN 33 H Creatinine 1.65 H D Est Cr Clr Drug Dosing 16.3 eGFR 31.03 BUN/Creatinine Ratio 20.0 Glucose 157 H Calcium 8.6 Magnesium 1.9 Diagnostic Findings Microbiology 02/19/25 07:30 Sputum, Expectorated Gram Stain - Final 02/19/25 07:30 Sputum, Expectorated Sputum Culture - Preliminary Moderate normal hiram present, final report to follow. PG Care Time/CCT Total # of Minutes Spent Total Time Spent with Patient: Total time spent is greater than 50% in coordination of care (as documented) at patient's floor/unit and/or counseling patient: Coding Level of Care Code 50318 SUB INP/OBS CARE 2/35MIN Diagnoses LLL pneumonia J18.9 Interstitial lung disease J84.9 Pulmonary nodule R91.1 Parkinson's disease G20.A1 Chronic respiratory failure with hypoxia J96.11 Hypothyroidism, unspecified type E03.9 Hypothyroidism type: unspecified CKD (chronic kidney disease), stage IV N18.4 Chronic deep vein thrombosis (DVT) I82.509 (6) Hypothyroidism Hypothyroidism type: unspecified Qualified Code(s): E03.9 - Hypothyroidism, unspecified
[2025-02-20] MEDS: DOXYCYCLINE HYCLATE 100 MG CAP PO SCH (20:03)
[2025-02-21 06:24] LABS: Anion Gap 4.0 (3-11); Blood Urea Nitrogen 42.0 mg/dl (6-23); Calcium 9.0 mg/dl (8.6-10.3); Carbon Dioxide 32.0 mmol/L (21-32); Chloride 104.0 mmol/L (98-107); Creatinine Clr Calc Pharmacy 17.3 ml/min; Glucose 112.0 mg/dl (70-99(Fasting)); Potassium 4.7 mmol/L (3.5-5.1); Sodium 140.0 mmol/L (136-145)
[2025-02-21 07:33] LABS: Hemoglobin A1C 5.4 % (4.5-5.6)
--- NOTE | 2025-02-21 16:44 | Hospitalist Progress Note ---
Date of Service February 21, 2025 Assessment & Plan (1) LLL pneumonia: (2) Interstitial lung disease: (3) Pulmonary nodule: (4) Parkinson's disease: (5) Chronic respiratory failure with hypoxia: (6) Hypothyroidism: (7) CKD (chronic kidney disease), stage IV: (8) Chronic deep vein thrombosis (DVT): Plan 79yo female with chronic hypoxic respiratory failure, previous long-standing tobacco use (nearly 50 years), ILD, anemia, parkinsonism, pulmonary hypertension, chronic HFpEF, GERD with history of GI bleed, hypothyroidism, lumbar spinal stenosis, CKD stage IV, prediabetes, vitamin D deficiency, and osteoporosis. She was hospitalized at [facility] from 11/07 to 12/02 earlier this summer for ESBL ecoli bacteremia 2nd to UTI. Course complicated by acute/chronic CHF. Was discharged to [facility] for rehab. She had a lengthy rehab stay at [facility] and was discharged from there on 01/31/25 to her home in [place]. While at rehab was treated twice for pneumonia and was on two courses of antibiotics (levofloxacin & augmentin, respectively). About a week after getting home she again developed worsening cough/congestion/sputum production/wheezing/dyspnea. #LLL pneumonia - -as seen on CT chest at ER presentation -this would be her 3rd episode of pneumonia over the last 2+ months -recurrent pneumonia due to aspiration from her parkinson's? due to mucous plugging? progressive ILD? other? -since she was hospitalized <90 days prior will cover for gram negative pneumonia with cefepime IV; cont doxy for atypical coverage -day #4 of both -MRSA swab negative; MRSA coverage deferred -respiratory BioFire negative -legionella urine ag pending -sputum cx negative -cont pulmonary toilet (incentive racheal, flutter valve, etc) -consider chest PT -repeat cxr today - due to worsening dyspnea -- increased LLL pneumonia -consider pulmonary consultation -video swallow planned for 02/23 by speech/radiology #ILD with exacerbation - improved - -although she has emphysematous changes on CT chest she had no obstruction on PFTs in 06/2024 -for ILD will continue steroids but stop IV solumedrol and change to PO prednisone 30mg daily, followed by slow taper -cont Incruse Ellipta 1 puff daily -cont budesonide nebs BID -cont formoterol nebs BID -cont saline nebs BID -cont mucinex BID -duonebs prn -gave lasix x 1 with prompt rise in BUN & Cr thus no volume overload/pulm edema -consider chest PT -consider pulm consultation -r/o aspiration - video swallow planned for 02/23/25 #chronic hypoxic respiratory failure on home O2 - -d/c from rehab on 2 liters NC O2 continuously -was on 3 liters of NC O2 at home last night, but during my admit assessment her sats were stable on 1 liter -chronic hypoxic resp failure 2nd to ILD, pulmonary HTN, etc. #RUL pulmonary nodule - -will need surveillance of this nodule post-d/c -high risk for lung ca in light of extensive smoking history #chronic HFpEF - -lasix 20mg IV x 1 for ?pulmonary edema -this led to rise in BUN and Cr within 24 hours; this argues that no pulm edema was/is present (no CHF exacerbation) -cxr today w/o overt edema #hypothyroidism - -TSH wnl -cont levothyroxine #chronic DVT - as seen on b/l LE dopplers 10/2024 - -cont Eliquis 2.5mg BID #parkinsonism - -cont sinemet 2 tabs TID -PT/OT while here #chronic right eye disease - -cont erythromycin eye ointment HS -cont prednisolone drops HS -patient wants 2nd opinion re: this issue - will give her options and help her with a f/u appt after discharge #chronic CKD stage 3 - -creatinine modestly higher yesterday after IV lasix -creatinine today improved -no diuretics again today -check BMP in am again #DVT proph - -Eliquis 2.5mg BID #macrocytosis - -has seen heme/onc earlier in 2024 -underwent bone marrow bx - negative for malignancy and multiple myeloma -B12 level in 2023 - >1500 -no folate level in about a year - recheck tomorrow -TSH earlier this month wnl #constipation - -she does not like miralax -added senna 2 tabs daily +stool since admissoin updated pt's daughter by phone 02/20 PT, OT evals appreciated; ok to return home at d/c (has extensive caregivers except for at night-time) appreciate speech eval - needs video swallow - 02/23 Admission and Anticipated Discharge Date Admission Date: February 18, 2025 Subjective she reports "not doing so good today" feels more short of breath cough is the same minimal sputum when asked if there is chest congestion she couldn't really tell me eating well - 75% of meals per the nursing flowsheets despite her complaints today she asked "can I go home tomorrow?" Review of Systems Review of Systems: gen - no fevers or chills cv - no chest pain pulm - cough/wheezing/dyspnea on exertion GI - no N/V Physical Exam Physical Exam: gen - thin, severe tremors from parkinson's, no respiratory distress, looks same as yesterday HENT - MMM neck - no JVD heart - RRR, s1 s2, no murmur lungs - mild wheezes b/l; mild-moderate fine rales bases, decreased BS L base - about 1/[address] up posterior back; no increased work of breathing abd - soft NT ND BS+ ext - no edema b/l, pulses b/l feet 2+ neuro - tremors at baseline psych - a/o x 3 Results & Data Results & Data Vital Signs (Past 12 Hours) Vital Signs Temp Pulse Resp BP Pulse Ox O2 Del Method O2 Flow Rate 02/21/25 15:32 36.5 C 85 19 103/58 L 99 Nasal Cannula 2 02/21/25 11:15 36.5 C 87 19 102/54 L 97 Nasal Cannula 2 02/21/25 10:42 Nasal Cannula 2 02/21/25 07:41 85 16 94 Nasal Cannula 2 02/21/25 07:09 36.4 C L 75 19 157/72 H 100 Nasal Cannula 2 Laboratory Results Laboratory Results - last 24 hr 02/21/25 05:26 Sodium 140 Potassium 4.7 Chloride 104 Carbon Dioxide 32 Anion Gap 4 BUN 42 H Creatinine 1.56 H Est Cr Clr Drug Dosing 17.3 eGFR 33.19 BUN/Creatinine Ratio 26.9 H Glucose 112 H Estimat Average Glucose 108 Hemoglobin A1c 5.4 Calcium 9.0 Folate 20.82 Diagnostic Findings Chest X-Ray 02/21/25 16:43 HISTORY: Left lower lobe pneumonia. Worsening dyspnea. TECHNIQUE: PA and lateral views of the chest. COMPARISON: Chest radiograph dated 02/16/2025. FINDINGS: Left lower lobe opacity has increased since the prior study.Pulmonary fibrosis with increased interstitial markings throughout both lungs.No pneumothorax or effusion. Normal heart size. Left-sided aortic arch. Midline trachea. The bones appear demineralized. IMPRESSION: 1. Left lower lobe airspace opacity has increased since the prior study concerning for pneumonia. 2. Pulmonary fibrosis. Electronically signed by Jose Freire 02-21-2025 7:45 PM PG Care Time/CCT Total # of Minutes Spent Total Time Spent with Patient: Total time spent is greater than 50% in coordination of care (as documented) at patient's floor/unit and/or counseling patient: Coding Level of Care Code 06229 SUB INP/OBS CARE 235MIN Diagnoses LLL pneumonia J18.9 Interstitial lung disease J84.9 Pulmonary nodule R91.1 Parkinson's disease G20.A1 Chronic respiratory failure with hypoxia J96.11 Hypothyroidism, unspecified type E03.9 Hypothyroidism type: unspecified CKD (chronic kidney disease), stage IV N18.4 Chronic deep vein thrombosis (DVT) I82.509 (6) Hypothyroidism Hypothyroidism type: unspecified Qualified Code(s): E03.9 - Hypothyroidism, unspecified
--- NOTE | 2025-02-21 19:45 | XRay Report ---
HISTORY: Left lower lobe pneumonia. Worsening dyspnea. TECHNIQUE: PA and lateral views of the chest. COMPARISON: Chest radiograph dated 02/16/2025. FINDINGS: Left lower lobe opacity has increased since the prior study.Pulmonary fibrosis with increased interstitial markings throughout both lungs.No pneumothorax or effusion. Normal heart size. Left-sided aortic arch. Midline trachea. The bones appear demineralized. IMPRESSION: 1. Left lower lobe airspace opacity has increased since the prior study concerning for pneumonia. 2. Pulmonary fibrosis. Electronically signed by Jose Freire 02-21-2025 7:45 PM
[2025-02-22 06:01] LABS: Hematocrit (blood only) 30.8 % (37.0-47.0); Hemoglobin 10.0 g/dl (12.0-16.0); Mean Corpuscular Hemoglobin 37.3 pg (25.0-34.0); Mean Corpuscular Volume 114.9 fL (80.0-100.0); Platelet Count 247 K/uL (130-400); RDW Standard Deviation 60.4 fL (36.4-46.3); Red Blood Count 2.68 M/uL (4.20-5.40); White Blood Count 9.70 K/ul (4.8-10.8)
[2025-02-22 06:19] LABS: Anion Gap 2.0 (3-11); Blood Urea Nitrogen 48.0 mg/dl (6-23); Calcium 8.9 mg/dl (8.6-10.3); Carbon Dioxide 32.0 mmol/L (21-32); Chloride 106.0 mmol/L (98-107); Creatinine Clr Calc Pharmacy 16.0 ml/min; Glucose 106.0 mg/dl (70-99(Fasting)); Potassium 4.9 mmol/L (3.5-5.1); Sodium 140.0 mmol/L (136-145)
--- NOTE | 2025-02-22 12:15 | Pulmonary Consultation ---
Date of Consultation February 22, 2025 Assessment & Plan (1) Interstitial lung disease: (2) Chronic respiratory failure with hypoxia: (3) Chronic respiratory failure with hypoxia and hypercapnia: Plan Impression: 79-year-old female with known interstitial lung disease and restrictive PFTs which are likely multifactorial due to combinations of ILD as well as her significant kyphosis admitted after 2 courses of outpatient antibiotics. She has been placed on additional antibiotics and steroids but continues to have some respiratory complaints. Recommendations: 1. Patient is already completed 2 courses of broad-spectrum antibiotics. I do not suspect this to be a bacterial infection so antibiotics will be discontinued at this point in time and the patient followed clinically. No indication for bronchoscopy for lower respiratory samples currently. 2. Review of her CT scan does not demonstrate significant alveolitis and I do not think this is a flare of her interstitial lung disease. In light of this, steroids will be discontinued. 3. Seems prudent to continue nebulized budesonide and Perforomist in conjunction with hypertonic saline and as needed DuoNebs to see if this offers her a benefit. Will discontinue CoughAssist and chest vest therapy and continue only with flutter valve which should be adequate currently. 4. Agree with plans for swallow evaluation to rule out intermittent aspiration. 5. Patient has demonstrated hypercarbia at baseline previously and her serum bicarb is elevated at 32. Will obtain venous blood gas currently and attempt a trial of nocturnal BiPAP at 8/4 to see how she does with a repeat venous blood gas in the morning. 6. Unfortunately the patient's pulmonary fibrosis and significant kyphosis are not amenable to any interventions or treatments currently. Continue supportive care. Patient was advised that she needs to get out of bed and be upright in the chair is much as possible to try and improve pulmonary toilet and clearance. She expressed understanding and will see how she does. Thanks for the opportunity participating the care of this patient. Feel free to contact us with questions or concerns. History of Present Illness Attending Physician: Isidro Huff MD History of Present Illness Asked by hospitalist to assist in evaluation management this patient with hypoxemic respiratory failure and known interstitial lung disease as well as restrictive lung disease due to significant kyphosis. She is followed in the outpatient setting by Dr. Cortez was last seen by the PA about 9 months ago. Her last pulmonary function testing was performed in June 2024 and showed preserved spirometry, with restrictive lung disease and a total lung capacity of 76% predicted and a diffusion capacity 45% prediction which was decreased. These had been stable compared to prior studies. The patient is an 79-year-old female with a history of probable UIP. She is not interested in aggressive intervention previously but did have some degree of pulmonary hypertension. It was felt she may have some combined pulmonary fibrosis with emphysema. She has been admitted to the hospital back in October with sepsis and had a prolonged hospitalization spending over 2 weeks in the hospital. She was readmitted about 2 days ago with complaints of cough, congestion, and sputum production. She had received levofloxacin and Augmentin in the rehab facility. She had a CT scan which showed known subpleural fibrotic changes. She has been initiated on aggressive bronchodilators but still sounds "junky". This prompted a pulmonary evaluation today. She has been treated with bronchodilators, steroids, and antibiotics. The patient states that she is actually feeling better. Her biggest complaint currently is her eye symptoms. She states she is coughing a little bit but not really expectorating phlegm. She has significant kyphosis. She walks with the assistance of a walker. She has not been out of bed much. She denies any hemoptysis. No chest pain or palpitations. No significant edema. Allergies Allergy/AdvReac Type Severity Reaction Status Date / Time azithromycin [From Zithromax] Allergy Intermediate HIVES Verified 02/18/25 15:40 nitrofurantoin Allergy Intermediate HIVES,ITCHI Verified 02/18/25 15:40 NG tramadol AdvReac Mild nausea Verified 02/18/25 15:40 Home Medications Medication Instructions Recorded Confirmed Type albuterol sulfate 90 mcg/actuation 2 inh inhalation DAILY PRN 11/08/23 02/18/25 History aerosol inhaler Shortness Of Breath Or Wheezing fluticasone propionate 50 2 spray intranasal DAILY PRN 11/08/23 02/18/25 History mcg/actuation nasal .allergy symptoms spray,suspension (Flonase Allergy Relief) acetaminophen 325 mg tablet 650 mg (2 x 325 mg) PO Q6 PRN 11/15/23 02/18/25 Rx (Tylenol) fever or pain #60 tabs famotidine 20 mg tablet 20 mg PO DAILY #90 tabs 12/25/23 02/18/25 Rx folic acid 1 mg tablet 1 mg PO QAM #90 tabs 12/25/23 02/18/25 Rx thiamine HCl (vitamin B1) 100 mg 200 mg PO QAM 01/06/24 02/18/25 History tablet pyridoxine (vitamin B6) 100 mg 100 mg PO QAM 03/03/24 02/18/25 History tablet valacyclovir 500 mg tablet 500 mg PO DAILY 03/19/24 02/18/25 History atorvastatin 80 mg tablet 80 mg PO HS 05/06/24 02/18/25 History magnesium 200 mg tablet 200 mg PO DAILY 09/24/24 02/18/25 History carbidopa 10 mg-levodopa 100 mg 2 tab PO TID 11/17/24 02/18/25 History tablet cyanocobalamin (vitamin B-12) 1,000 mcg PO QAM 11/17/24 02/18/25 History 1,000 mcg tablet (Vitamin B-12) denosumab 60 mg/mL subcutaneous 60 mg subcut .EVERY 6 MONTHS 11/17/24 02/18/25 History syringe (Prolia) doxepin 3 mg tablet 3 mg PO HS PRN Sleep 11/17/24 02/18/25 History erythromycin 5 mg/gram (0.5 %) eye 1 applic OPR HS 11/17/24 02/18/25 History ointment levothyroxine 88 mcg tablet 88 mcg PO DAILYBB 11/17/24 02/18/25 History peg 3350-electrolytes 236 240 ml PO Q10M #4,000 mL 11/17/24 02/18/25 Rx gram-22.74 gram-6.74 gram-5.86 gram solution (Golytely) prednisolone acetate 1 % eye 1 drp OPR HS 11/17/24 02/18/25 History drops,suspension apixaban 2.5 mg tablet (Eliquis) 2.5 mg PO BID #180 tabs 11/18/24 02/18/25 Rx furosemide 20 mg tablet 20 mg PO QAM #10 tabs 12/02/24 02/18/25 Rx ipratropium 0.5 mg-albuterol 3 mg 3 ml inhalation .Q4-6HRS PRN 02/18/25 02/18/25 History (2.5 mg base)/3 mL nebulization dyspnea soln Patient History Medical History Parkinson's disease Abnormal chest CT Chronic dyspnea Stage 1 skin ulcer of sacral region Kidney stones Hallucinations Compression fracture of lumbar spine, non-traumatic (~09/23/23) seeing orthopedics Closed T2 fracture (~10/08/23) Parkinsons disease Type 2 diabetes mellitus without complication HTN (hypertension) DVT (deep venous thrombosis) Hyponatremia Megaloblastic anemia Diet-controlled diabetes mellitus History of ischemic stroke Second degree AV block, Mobitz type I Chronic deep vein thrombosis (DVT) Cardiomyopathy Chronic GERD Chronic fatigue syndrome Chronic laryngitis Cigarette smoker motivated to quit 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 Depression Dermatitis, eczematoid Diabetes mellitus (11/29/12) Hearing loss Hoarseness Ischemic colitis Low back pain NSTEMI (non-ST elevated myocardial infarction) Recurrent UTI SNHL (sensorineural hearing loss) Secondary hyperparathyroidism (of renal origin) Solitary pulmonary nodule Subsequent non-ST elevation (NSTEMI) myocardial infarction Vertigo GERD (gastroesophageal reflux disease) Chronic kidney disease Hypothyroidism (acquired) GI bleed Chronic deep vein thrombosis of left lower extremity Hyperlipidemia Thyroid disease Surgical History History of lumbar laminectomy for spinal cord decompression History of tubal ligation History of D&C History of Hx of colonoscopy Family History Mother , age 76 with leukemia Leukemia Hypertension Father , age 86 with heart issues Myocardial infarction Diabetes Other Family history non-contributory Denies family history of Ovarian cancer Prostate cancer Breast cancer Lung cancer Social History (Updated 02/18/25 @ 19:59 by Isidro Huff MD) Smoking Status: Former smoker Tobacco Type: Cigarettes Age Started Using Tobacco: 17; Age Quit Using Tobacco: 73; packs per day: 1; Second Hand Exposure: No; Do You Dip or Chew Tobacco: No; Hx Alcohol Use: No Hx Substance Use: No Preferred Language: Montserratian Communication Ability: Effective Visual Impairment: No Limitations Hearing Ability: Use of 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 Aid 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: No Beliefs That Will Affect Care: None marital status: Current Living Situation: Alone Current Living Situation Comment: home alone, recently [facility] current occupational status: retired 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 How many Children do You have: 3 How many Children do You have Comment: 1 daughter is Other Information That Helps Us Care for You: No Feels Safe at Home: Yes Safety Concerns: Feels Safe At This Time Childhood Exposure to Second-Hand Smoke: Yes Diet: regular caffeine: No Dental Care, Regularly: No Physical Activity Frequency: Does not Exercise Seatbelt Use: always Sunscreen Use: No Do you think of yourself as: straight/heterosexual Gender Identity: Female Assistive Devices: Oxygen - Continuous and Walker Review of Systems Review of Systems: Please refer to hospitalist note for additional details. No additions or deletions Physical Exam Physical Exam: VITAL SIGNS Vital signs and nursing notes were reviewed. GENERAL 79-year-old female appearing her stated age who is in no acute distress. Communicates well with provider and answers questions appropriately. SKIN Without rashes or lesions. NOSE Midline and without cyanosis. MOUTH/OROPHARYNX Without perioral cyanosis. NECK Neck with FROM. LUNGS kyphotic appearing. Chest wall evaluation demonstrates normal chest wall A:P diameter. Auscultation reveals delayed air entry with bilateral LEFT greater than right crackles. CARDIAC RRR with S1/S2. No murmur, rubs, or gallops appreciated. ABDOMEN Abdominal inspection demonstrates flat. BS normoactive all four quadrants. No tenderness, palpable masses, or ascites noted. EXTREMITIES Nail clubbing not present. No peripheral cyanosis. No pretibial edema present. +3/5 radial palpated throughout. PSYCH A&Ox3 and cooperates fully with examiner. Pt is very pleasant and interacts well with examiner. Results & Data Results & Data Vital Signs (Past 12 Hours) Vital Signs Temp Pulse Resp BP Pulse Ox O2 Del Method O2 Flow Rate 02/22/25 07:30 36.4 C L 73 17 123/68 94 Nasal Cannula 2 02/22/25 07:03 80 16 94 Nasal Cannula 2 Critical Care Results & Data Vital Signs (Past 12 Hours) Vital Signs Temp Pulse Resp BP Pulse Ox O2 Del Method O2 Flow Rate 02/22/25 07:30 36.4 C L 73 17 123/68 94 Nasal Cannula 2 02/22/25 07:03 80 16 94 Nasal Cannula 2 Lab & Micro Results (Past 24 Hours) RBC 2.68 M/uL (4.20-5.40) L 02/22/25 WBC 9.70 K/ul (4.8-10.8) 02/22/25 Hgb 10.0 g/dl (12.0-16.0) L 02/22/25 Hct 30.8 % (37.0-47.0) L 02/22/25 MCV 114.9 fL (80.0-100.0) H 02/22/25 MCH 37.3 pg (25.0-34.0) H 02/22/25 MCHC 32.5 g/dL (32.0-36.0) 02/22/25 RDW Standard Deviation 60.4 fL (36.4-46.3) H 02/22/25 RDW Coefficient of Variation 14.5 % (11.5-14.5) 02/22/25 Plt Count 247 K/uL (130-400) 02/22/25 MPV 10.8 fL (9.4-12.4) 02/22/25 Na 140 mmol/L (136-145) 02/22/25 K 4.9 mmol/L (3.5-5.1) 02/22/25 Cl 106 mmol/L (98-107) 02/22/25 CO2 32 mmol/L (21-32) 02/22/25 Anion Gap 2 (3-11) L 02/22/25 BUN 48 mg/dl (6-23) H 02/22/25 Creatinine 1.71 mg/dl (0.6-1.2) H 02/22/25 BUN/Creatinine Ratio 28.1 (10-20) H 02/22/25 Glu 106 mg/dl (70-99(Fasting)) H 02/22/25 Ca 8.9 mg/dl (8.6-10.3) 02/22/25 Calcium Level 8.9 mg/dl (8.6-10.3) 02/22/25 05:21 Microbiology 02/19/25 07:30 Gram Stain - Final Sputum, Expectorated Sputum Culture - Final Moderate normal hiram. Diagnostic Findings (Past 24 Hours) Chest X-Ray 02/21/25 16:43 HISTORY: Left lower lobe pneumonia. Worsening dyspnea. TECHNIQUE: PA and lateral views of the chest. COMPARISON: Chest radiograph dated 02/16/2025. FINDINGS: Left lower lobe opacity has increased since the prior study.Pulmonary fibrosis with increased interstitial markings throughout both lungs.No pneumothorax or effusion. Normal heart size. Left-sided aortic arch. Midline trachea. The bones appear demineralized. IMPRESSION: 1. Left lower lobe airspace opacity has increased since the prior study concerning for pneumonia. 2. Pulmonary fibrosis. Electronically signed by Jose Freire 02-21-2025 7:45 PM I & O Totals 24 Hours 02/21/25 02/22/25 02/23/25 06:59 06:59 06:59 Intake Total 790 / 790 360 / 360 Output Total 151 / 151 Balance 639 / 639 360 / 360 Cumulative 02/18/25 11:50 thru 02/22/25 06:00 Intake Total 2160 Output Total 1851 Balance 309 RT Ventilator Mngmt (Last Documented) Ventilator Ordered Settings Respiratory Rate 17 02/22/25 07:30 Fraction of Inspired Oxygen 3 02/20/25 09:00 Ventilator - PT Measurements Respiratory Rate 17 PG Care Time/CCT Total # of Minutes Spent Total Time Spent with Patient: Total time spent is greater than 50% in coordination of care (as documented) at patient's floor/unit and/or counseling patient: Coding Level of Care Code 04475 INT INP/OBS CARE 3/75MIN Diagnoses Interstitial lung disease J84.9 Chronic respiratory failure with hypoxia J96.11 Chronic respiratory failure with hypoxia and hypercapnia J96.11; J96.12
[2025-02-22 12:29] LABS: Base Excess VBG 4.0 mEq/L; HCO3 VBG 33 mmol/L; Oxygen Saturation VBG < 60.0 %; PCO2 VBG 68 mmHg (38-50); PO2 VBG 30 mmHg; pH VBG 7.29 (7.36-7.41)
--- NOTE | 2025-02-22 19:18 | Hospitalist Progress Note ---
Date of Service February 22, 2025 Assessment & Plan (1) LLL pneumonia: (2) Interstitial lung disease: (3) Pulmonary nodule: (4) Parkinson's disease: (5) Hypothyroidism: (6) CKD (chronic kidney disease), stage IV: (7) Chronic deep vein thrombosis (DVT): (8) Chronic respiratory failure with hypoxia and hypercapnia: Plan 79yo female with chronic hypoxic respiratory failure, previous long-standing tobacco use (nearly 50 years), ILD, anemia, parkinsonism, pulmonary hypertension, chronic HFpEF, GERD with history of GI bleed, hypothyroidism, lumbar spinal stenosis, CKD stage IV, prediabetes, vitamin D deficiency, and osteoporosis. She was hospitalized at [facility] [address] from 11/07 to 12/02 earlier this summer for ESBL ecoli bacteremia 2nd to UTI. Course complicated by acute/chronic CHF. Was discharged to [facility] for rehab. She had a lengthy rehab stay at [facility] and was discharged from there on 01/31/25 to her home in [place]. While at rehab was treated twice for pneumonia and was on two courses of antibiotics (levofloxacin & augmentin, respectively). About a week after getting home she again developed worsening cough/congestion/sputum production/wheezing/dyspnea. #LLL pneumonia - -as seen on CT chest at ER presentation -this would be her 3rd episode of pneumonia over the last 2+ months -recurrent pneumonia due to aspiration from her parkinson's? due to mucous plugging? progressive ILD? other? -since she was hospitalized <90 days prior will cover for gram negative pneumonia with cefepime IV; cont doxy for atypical coverage -day #5 of both -pulmonary consulted; abx (cefepime/doxy) stopped -MRSA swab negative; MRSA coverage deferred -respiratory BioFire negative -legionella urine ag pending but doubt legionella -sputum cx negative -cont pulmonary toilet (incentive racheal, flutter valve, etc) -pulmonary does not recommend chest PT -appreciate pulmonary consultation; VBG results noted; agree with trial of BIPAP tonight but I bet she does not wear it -video swallow planned for Saturday, 02/23 by speech/radiology #ILD with exacerbation - ongoing - -although she has emphysematous changes on CT chest she had no obstruction on PFTs in 06/2024 -for ILD has received steroids since admission (initially IV, now PO prednisone 30mg daily) -pulmonary advises against ongoing systemic steroids -cont Incruse Ellipta 1 puff daily -cont budesonide nebs BID -cont formoterol nebs BID -cont saline nebs BID -cont mucinex BID -duonebs prn -gave lasix x 1 earlier in the admission with prompt rise in BUN & Cr; this would argue against volume overload/pulm edema -r/o aspiration - video swallow planned for 02/23/25 #chronic hypoxic and hypercapnic respiratory failure on home O2 - -she was d/c from [facility] rehab on 2 liters NC O2 continuously -was on 3 liters of NC O2 at home the night before admission; -she has been stable on 1-3 L of NC O2 -VBG with hypercapnia; agree with BIPAP HS if she will wear it -chronic resp failure 2nd to ILD, pulmonary HTN, etc. #RUL pulmonary nodule - -will need surveillance of this nodule post-d/c -high risk for lung ca in light of extensive smoking history #chronic HFpEF - -lasix 20mg IV x 1 for ?pulmonary edema -this led to rise in BUN and Cr within 24 hours; this argues that no pulm edema was/is present (no CHF exacerbation) -cxrs and chest CT w/o overt edema #hypothyroidism - -TSH wnl -cont levothyroxine #chronic DVT - as seen on b/l LE dopplers 10/2024 - -cont Eliquis 2.5mg BID #parkinsonism - -cont sinemet 2 tabs TID -PT/OT while here as tolerated #chronic right eye disease - -cont erythromycin eye ointment HS -cont prednisolone drops HS -patient wants 2nd opinion re: this issue - will give her options and help her with a f/u appt after discharge #chronic CKD stage 3 - -fluctuating renal function while hospitalized -daily BMP -baseline Cr ~1.3 to 1.6 #DVT proph - -Eliquis 2.5mg BID #macrocytosis - -has seen heme/onc earlier in 2024 -underwent bone marrow bx - negative for malignancy and multiple myeloma -B12 level in 2023 - >1500 -no folate level in about a year - recheck tomorrow -TSH earlier this month wnl #constipation - -she does not like miralax -added senna 2 tabs daily +stool since admission; cont senna updated pt's daughter by phone 02/20 and again this evening, 02/22 extensive update given reviewed pulmonary consult recs reviewed plan of care PT, OT jessi appreciated; ok to return home at d/c (has extensive caregivers except for at night-time) appreciate speech eval - video swallow tomorrow - 02/23 Admission and Anticipated Discharge Date Admission Date: February 18, 2025 Subjective patient again reports ongoing cough/congestion/wheezing/dyspnea eating well all 3 meals denies overt dysphagia or worsening of her breathing during meal-time denies any new complaints we discussed once again her ILD and, despite the lengthy discussion, still does not understand the severity of her lung disease I gave her a patient handout on ILD last stool? Review of Systems Review of Systems: gen - tired cv - no chest pain pulm - no hemoptysis GI - no N/V or pain Physical Exam Physical Exam: gen - thin, severe tremors from parkinson's, looks tachypneic today and overall worse from breathing standpoint HENT - MMM, hearing impaired neck - JVD present heart - RRR, s1 s2, no murmur lungs - moderate wheezes b/l; moderate fine rales bases (worse today), decreased BS L base; tachypneic abd - soft NT ND BS+ ext - no edema b/l, pulses b/l feet 2+ neuro - tremors at baseline psych - a/o x 3 Results & Data Results & Data Vital Signs (Past 12 Hours) Vital Signs Temp Pulse Resp BP Pulse Ox O2 Del Method O2 Flow Rate 02/22/25 16:18 36.7 C 91 H 17 113/67 98 Nasal Cannula 2 02/22/25 13:00 Nasal Cannula 2 02/22/25 07:30 36.4 C L 73 17 123/68 94 Nasal Cannula 2 Laboratory Results Laboratory Results - last 24 hr 02/22/25 02/22/25 05:21 12:22 WBC 9.70 RBC 2.68 L Hgb 10.0 L Hct 30.8 L MCV 114.9 H MCH 37.3 H MCHC 32.5 RDW Std Deviation 60.4 H RDW Coeff of Damien 14.5 Plt Count 247 MPV 10.8 VBG pH 7.29 L VBG pCO2 68 H VBG pO2 30 VBG HCO3 33 VBG O2 Saturation < 60.0 VBG Base Excess 4.0 Sodium 140 Potassium 4.9 Chloride 106 Carbon Dioxide 32 Anion Gap 2 L BUN 48 H Creatinine 1.71 H Est Cr Clr Drug Dosing 16.0 eGFR 29.73 BUN/Creatinine Ratio 28.1 H Glucose 106 H Calcium 8.9 PG Care Time/CCT Total # of Minutes Spent Total Time Spent with Patient: Total time spent is greater than 50% in coordination of care (as documented) at patient's floor/unit and/or counseling patient: Coding Level of Care Code 44557 SUB INP/OBS CARE 3/50MIN Diagnoses LLL pneumonia J18.9 Interstitial lung disease J84.9 Pulmonary nodule R91.1 Parkinson's disease G20.A1 Hypothyroidism, unspecified type E03.9 Hypothyroidism type: unspecified CKD (chronic kidney disease), stage IV N18.4 Chronic deep vein thrombosis (DVT) I82.509 Chronic respiratory failure with hypoxia and hypercapnia J96.11; J96.12 (5) Hypothyroidism Hypothyroidism type: unspecified Qualified Code(s): E03.9 - Hypothyroidism, unspecified
[2025-02-23 08:29] LABS: Base Excess VBG 6.6 mEq/L; HCO3 VBG 34 mmol/L; Oxygen Saturation VBG < 60.0 %; PCO2 VBG 61 mmHg (38-50); PO2 VBG 29 mmHg; pH VBG 7.35 (7.36-7.41)
[2025-02-23 08:52] LABS: Anion Gap 3 (3-11); Blood Urea Nitrogen 44 mg/dl (6-23); Calcium 8.8 mg/dl (8.6-10.3); Carbon Dioxide 32 mmol/L (21-32); Chloride 106 mmol/L (98-107); Creatinine Clr Calc Pharmacy 18.4 ml/min; Glucose 96 mg/dl (70-99(Fasting)); Potassium 4.6 mmol/L (3.5-5.1); Sodium 141 mmol/L (136-145)
--- NOTE | 2025-02-23 09:14 | Pulmonology Progress Note ---
Date of Service February 23, 2025 Assessment & Plan (1) Interstitial lung disease: (2) Chronic respiratory failure with hypoxia: (3) Chronic respiratory failure with hypoxia and hypercapnia: Plan Impression: 79-year-old female with known interstitial lung disease and restrictive PFTs which are likely multifactorial due to combinations of ILD as well as her significant kyphosis admitted after 2 courses of outpatient antibiotics. She has been placed on additional antibiotics and steroids but continues to have some respiratory complaints. Recommendations: 1. Respiratory status appears at her baseline according to the patient. 2. Review of her CT scan does not demonstrate significant alveolitis and I do not think this is a flare of her interstitial lung disease. No indication for steroids 3. Seems prudent to continue nebulized budesonide and Perforomist in conjunction with hypertonic saline and as needed DuoNebs to see if this offers her a benefit. Continue flutter valve 4. Agree with plans for swallow evaluation to rule out intermittent aspiration. 5. Patient declined noninvasive positive pressure ventilation for hypercarbic respiratory failure last night. Would continue to try and avoid significant hyper ox EMEA and would target oxygen saturations at or above 88%. 6. Unfortunately the patient's pulmonary fibrosis and significant kyphosis are not amenable to any interventions or treatments currently. Continue supportive care. Patient was advised that she needs to get out of bed and be upright in the chair is much as possible to try and improve pulmonary toilet and clearance. She expressed understanding and will see how she does. Patient appears to be at her pulmonary baseline. Recommend she follow-up with Dr. Cortez in the outpatient setting at discharge. Admission and Anticipated Discharge Date Admission Date: February 18, 2025 Subjective Patient seen and examined. EMR reviewed. The patient was attempted on positive airway pressure last evening however she was poorly tolerant of it and rapidly requested to be discontinued. No other therapies available for hypercarbic respiratory failure. This morning she states that she feels at her baseline. She is not expectorating any phlegm. Her cough is at her baseline. Review of Systems 2 Review of Systems: All systems reviewed & are unremarkable except as noted in Subjective Physical Exam 2 Physical Exam: VITAL SIGNS Vital signs and nursing notes were reviewed. GENERAL 79-year-old female appearing her stated age who is in no acute distress. Communicates well with provider and answers questions appropriately. SKIN Without rashes or lesions. NOSE Midline and without cyanosis. MOUTH/OROPHARYNX Without perioral cyanosis. NECK Neck with FROM. LUNGS kyphotic appearing. Chest wall evaluation demonstrates normal chest wall A:P diameter. Auscultation reveals delayed air entry with bilateral LEFT greater than right crackles. CARDIAC RRR with S1/S2. No murmur, rubs, or gallops appreciated. ABDOMEN Abdominal inspection demonstrates flat. BS normoactive all four quadrants. No tenderness, palpable masses, or ascites noted. EXTREMITIES Nail clubbing not present. No peripheral cyanosis. No pretibial edema present. +3/5 radial palpated throughout. PSYCH A&Ox3 and cooperates fully with examiner. Pt is very pleasant and interacts well with examiner. Results & Data Results & Data Vital Signs (Past 12 Hours) Vital Signs Temp Pulse Resp BP Pulse Ox O2 Del Method O2 Flow Rate 02/23/25 07:57 Nasal Cannula 2 02/23/25 07:25 36.8 C 78 17 122/69 99 Nasal Cannula 2 02/23/25 07:08 89 20 97 Nasal Cannula 2 02/22/25 23:22 2 Laboratory Results 02/22/25 05:21 02/23/25 08:06 Diagnostic Findings No new imaging PG Care Time/CCT Total # of Minutes Spent Total Time Spent with Patient: Total time spent is greater than 50% in coordination of care (as documented) at patient's floor/unit and/or counseling patient: Coding Level of Care Code 89386 SUB INP/OBS CARE 2/35MIN Diagnoses Interstitial lung disease J84.9 Chronic respiratory failure with hypoxia J96.11 Chronic respiratory failure with hypoxia and hypercapnia J96.11; J96.12
--- NOTE | 2025-02-23 11:18 | Hospitalist Progress Note ---
Date of Service February 23, 2025 Assessment & Plan (1) LLL pneumonia: (2) Interstitial lung disease: (3) Pulmonary nodule: (4) Parkinson's disease: (5) Hypothyroidism: (6) CKD (chronic kidney disease), stage IV: (7) Chronic deep vein thrombosis (DVT): (8) Chronic respiratory failure with hypoxia and hypercapnia: Plan 79yo female with chronic hypoxic respiratory failure, previous long-standing tobacco use (nearly 50 years), ILD, anemia, parkinsonism, pulmonary hypertension, chronic HFpEF, GERD with history of GI bleed, hypothyroidism, lumbar spinal stenosis, CKD stage IV, prediabetes, vitamin D deficiency, and osteoporosis. She was hospitalized at [facility] from 11/07 to 12/02 earlier this summer for ESBL ecoli bacteremia 2nd to UTI. Course complicated by acute/chronic CHF. Was discharged to [facility] for rehab. She had a lengthy rehab stay at [facility] and was discharged from there on 01/31/25 to her home in [place]. While at rehab was treated twice for pneumonia and was on two courses of antibiotics (levofloxacin & augmentin, respectively). About a week after getting home she again developed worsening cough/congestion/sputum production/wheezing/dyspnea. #LLL pneumonia - -as seen on CT chest at ER presentation -this would be her 3rd episode of pneumonia over the last 2+ months -suspect 2nd to progressive ILD with background of emphysema -aspiration ruled out - video swallow negative today -since she was hospitalized <90 days prior covered for gram negative pneumonia with cefepime IV; had doxy for atypical coverage -completed ~5 days of cefepime/doxy -then had 1 dose of levaquin PO -now off all abx -clinically improved -NO SINUSITIS on CT sinuses today -MRSA swab negative; MRSA coverage deferred -respiratory BioFire negative -legionella urine ag negative -sputum cx negative -cont pulmonary toilet (incentive racheal, flutter valve, etc) -pulmonary does not recommend chest PT -appreciate pulmonary consultation; VBG results noted; pulm advised BIPAP trial but wore only 5 minutes then asked for it to be stopped -would not try again - doubt she will reattempt #ILD with exacerbation - -although she has emphysematous changes on CT chest she had no obstruction on PFTs in 06/2024 -for ILD had received steroids since admission (initially IV, then PO prednisone) -pulmonary advised against ongoing systemic steroids and steroids were d/c by them -cont Incruse Ellipta 1 puff daily -cont budesonide nebs BID -cont formoterol nebs BID -cont saline nebs BID -cont mucinex BID -duonebs prn -gave lasix x 1 earlier in the admission with prompt rise in BUN & Cr; this would argue against volume overload/pulm edema -NO aspiration on video swallow study today #chronic hypoxic and hypercapnic respiratory failure on home O2 - -she was d/c from [facility] rehab on 2 liters NC O2 continuously -was on 3 liters of NC O2 at home the night before admission; -she has been stable on 1-3 L of NC O2 -VBG with hypercapnia; could not tolerate BIPAP -chronic resp failure 2nd to ILD, pulmonary HTN, etc. #RUL pulmonary nodule - -will need surveillance of this nodule post-d/c -high risk for lung ca in light of extensive smoking history #chronic HFpEF - -lasix 20mg IV x 1 for ?pulmonary edema -this led to rise in BUN and Cr within 24 hours; this argues that no pulm edema was/is present (no CHF exacerbation) -cxrs and chest CT w/o overt edema #hypothyroidism - -TSH wnl -cont levothyroxine #chronic DVT - as seen on b/l LE dopplers 10/2024 - -cont Eliquis 2.5mg BID #parkinsonism - -cont sinemet 2 tabs TID -PT/OT while here as tolerated #chronic right eye disease - -cont erythromycin eye ointment HS -cont prednisolone drops HS -patient wants 2nd opinion re: this issue - will give her options and help her with a f/u appt after discharge -consider referral to Dr Edgard Lomeli, [facility] #chronic CKD stage 3 - -fluctuating renal function while hospitalized -baseline Cr ~1.3 to 1.6 -Cr today 1.49 #DVT proph - -Eliquis 2.5mg BID #macrocytosis - -has seen heme/onc earlier in 2024 -underwent bone marrow bx - negative for malignancy and multiple myeloma -B12 level in 2023 - >1500 -folate this admission wnl -TSH earlier this month wnl #constipation - -she does not like miralax -added senna 2 tabs daily +stool since admission; cont senna #chronic sinus symptoms/"congestion"/deviated septum - -CT sinuses with clear sinuses today -mild middle ear fluid on right -- patient complained of such at admission but never had AOM -no evidence of mastoiditis on examination -deviated septum likely contributes to her "congestion" feeling in the nose -added humidified O2 updated pt's daughter by phone 02/20 and again 02/22 extensive update given reviewed pulmonary consult recs reviewed plan of care PT, OT evals appreciated; ok to return home at d/c (has extensive caregivers except for at night-time) appreciate speech eval - care d/w speech via [place] communication appreciate pulm eval d/c to home on 02/24 ?? Admission and Anticipated Discharge Date Admission Date: February 18, 2025 Subjective tele overnight wnl pt lying in bed reports feeling well today again states "I'm congested in my nose and sinuses" ongoing cough - largely dry no dyspnea at rest asks about when she can d/c Review of Systems Review of Systems: gen - no fevers or chills cv - no cp, no orthopnea pulm - no dyspnea today GI - no N/V Physical Exam Physical Exam: gen - thin, severe tremors from parkinson's, looks well today, no respiratory distress HENT - MMM, hearing impaired neck - no JVD today heart - RRR, s1 s2, no murmur lungs - mild wheezes with upper airway noise (breath sounds are more clear if she opens her mouth & takes deep breaths with open mouth); moderate fine rales bases; decreased BS L base; no tachypnea today abd - soft NT ND BS+ ext - no edema b/l, pulses b/l feet 2+ neuro - tremors at baseline psych - a/o x 3 Results & Data Results & Data Vital Signs (Past 12 Hours) Vital Signs Temp Pulse Resp BP Pulse Ox O2 Del Method O2 Flow Rate 02/23/25 07:57 Nasal Cannula 2 02/23/25 07:25 36.8 C 78 17 122/69 99 Nasal Cannula 2 02/23/25 07:08 89 20 97 Nasal Cannula 2 02/22/25 23:22 2 Laboratory Results Laboratory Results - last 24 hr 02/22/25 02/23/25 12:22 08:06 ESR 7 VBG pH 7.29 L 7.35 L VBG pCO2 68 H 61 H VBG pO2 30 29 VBG HCO3 33 34 VBG O2 Saturation < 60.0 < 60.0 VBG Base Excess 4.0 6.6 Sodium 141 Potassium 4.6 Chloride 106 Carbon Dioxide 32 Anion Gap 3 BUN 44 H Creatinine 1.49 H Est Cr Clr Drug Dosing 18.4 eGFR 35.07 BUN/Creatinine Ratio 29.5 H Glucose 96 Calcium 8.8 C-Reactive Protein < 0.[address] 02/23/25 11:[address] WITHOUT CONTRAST CLINICAL HISTORY: severe sinus pain, pressure, congestion COMPARISON STUDY: None. Technique: Helical axial images of the sinuses were obtained without IV contrast. Coronal reformats were viewed. Automated exposure control was utilized for the study. A dose lowering technique was utilized adhering to the principles of ALARA. CT DOSE: 579.95 mGy.cm FINDINGS: The maxillary ethmoid sphenoid and frontal sinuses appear clear. The visualized portions of intracranial contents reveal no masses. There is no hydrocephalus. There are postsurgical changes relating to the right parotid gland with multiple adjacent surgical clips. The patient appears be status post a right parotidectomy. There is a right mastoid effusion. There is fluid within the right middle ear cavity. There is minimal erosion of the right scutum. The ostiomeatal units are patent. IMPRESSION: 1. Extensive right mastoid effusion with a small right middle ear effusion 2. No evidence of maxillary, sphenoid, ethmoid or frontal sinus inflammatory change. 3. Postsurgical changes of prior right parotid surgery ACT 112: Negative or not required by law. Electronically signed by: Armando Barker M.D. 02/23/2025 2:00 PM Videofluoroscopic Swallow 02/23/25 11:54 MODIFIED BARIUM SWALLOW CLINICAL HISTORY: r/o silent aspiration COMPARISON STUDY: 10/17/2023 FLUOROSCOPY TIME: 51 seconds. Ka,r: 1.75 mGy TECHNIQUE: A modified barium swallow was performed in conjunction with Speech Pathology. The patient ingested varying consistencies of barium containing material. Video fluoroscopy was performed. FINDINGS: No aspiration or penetration was visualized when drinking thin liquid barium, nectar thick liquid, pudding, or a cracker with barium pudding. IMPRESSION: No aspiration or penetration identified. ACT 112: Negative or not required by law. Electronically signed by: Armando Barker M.D. 02/23/2025 2:33 PM PG Care Time/CCT Total # of Minutes Spent Total Time Spent with Patient: Total time spent is greater than 50% in coordination of care (as documented) at patient's floor/unit and/or counseling patient: Coding Level of Care Code 95666 SUB INP/OBS CARE 3/50MIN Diagnoses LLL pneumonia J18.9 Interstitial lung disease J84.9 Pulmonary nodule R91.1 Parkinson's disease G20.A1 Hypothyroidism, unspecified type E03.9 Hypothyroidism type: unspecified CKD (chronic kidney disease), stage IV N18.4 Chronic deep vein thrombosis (DVT) I82.509 Chronic respiratory failure with hypoxia and hypercapnia J96.11; J96.12 (5) Hypothyroidism Hypothyroidism type: unspecified Qualified Code(s): E03.9 - Hypothyroidism, unspecified
--- NOTE | 2025-02-23 14:02 | CT Scan Report ---
SINUS CT WITHOUT CONTRAST CLINICAL HISTORY: severe sinus pain, pressure, congestion COMPARISON STUDY: None. Technique: Helical axial images of the sinuses were obtained without IV contrast. Coronal reformats w ere viewed. Automated exposure control was utilized for the study. A dose lowering technique was ut ilized adhering to the principles of ALARA. CT DOSE: 579.95 mGy.cm FINDINGS: The maxillary ethmoid sphenoid and frontal sinuses appear clear. The visualized portions of intracranial contents reveal no masses. There is no hydrocephalus. There are postsurgical changes relating to the right parotid gland with multiple adjacent surgical cl ips. The patient appears be status post a right parotidectomy. There is a right mastoid effusion. There is fluid within the right middle ear cavity. There is minimal erosion of the right scutum. The ostiomeatal units are patent. IMPRESSION: 1. Extensive right mastoid effusion with a small right middle ear effusion 2. No evidence of maxillary, sphenoid, ethmoid or frontal sinus inflammatory change. 3. Postsurgical changes of prior right parotid surgery ACT 112: Negative or not required by law. Electronically signed by: Armando Barker M.D. 02/23/2025 2:00 PM
--- NOTE | 2025-02-23 14:35 | Fluoroscopy Report ---
MODIFIED BARIUM SWALLOW CLINICAL HISTORY: r/o silent aspiration COMPARISON STUDY: 10/17/2023 FLUOROSCOPY TIME: 51 seconds. Ka,r: 1.75 mGy TECHNIQUE: A modified barium swallow was performed in conjunction with Speech Pathology. The patient ingested varying consistencies of barium containing material. Video fluoroscopy was performed. FINDINGS: No aspiration or penetration was visualized when drinking thin liquid barium, nectar thick liquid, pudding, or a cracker with barium pudding. IMPRESSION: No aspiration or penetration identified. ACT 112: Negative or not required by law. Electronically signed by: Armando Barker M.D. 02/23/2025 2:33 PM
--- NOTE | 2025-02-24 11:34 | Discharge Summary ---
Discharge Summary Date of Service February 24, 2025 Principal Dx & Hospital Course #1 = Principal Diagnosis (1) LLL pneumonia: (2) Interstitial lung disease: (3) Pulmonary nodule: (4) Parkinson's disease: (5) Hypothyroidism: (6) CKD (chronic kidney disease), stage IV: (7) Chronic deep vein thrombosis (DVT): (8) Chronic respiratory failure with hypoxia and hypercapnia: Plan 79yo female with chronic hypoxic respiratory failure, previous long-standing tobacco use (nearly 50 years), ILD, anemia, parkinsonism, pulmonary hypertension, chronic HFpEF, GERD with history of GI bleed, hypothyroidism, lumbar spinal stenosis, CKD stage IV, prediabetes, vitamin D deficiency, and osteoporosis. She was hospitalized at [facility] from 11/07 to 12/02 earlier this summer for ESBL ecoli bacteremia 2nd to UTI. Course complicated by acute/chronic CHF. Was discharged to [facility] for rehab. She had a lengthy rehab stay at [facility] and was discharged from there on 01/31/25 to her home in [place]. While at rehab was treated twice for pneumonia and was on two courses of antibiotics (levofloxacin & augmentin, respectively). About a week after getting home she again developed worsening cough/congestion/sputum production/wheezing/dyspnea. #LLL pneumonia - -as seen on CT chest at ER presentation -this would be her 3rd episode of pneumonia over the last 2+ months -suspect 2nd to progressive ILD with background of emphysema -aspiration ruled out - video swallow negative -since she was hospitalized <90 days prior covered for gram negative pneumonia with cefepime IV; had doxy for atypical coverage -completed ~5 days of cefepime/doxy -then had 1 dose of levaquin PO -now off all abx -clinically improved -NO SINUSITIS on CT sinuses -MRSA swab negative; MRSA coverage deferred -respiratory BioFire negative -legionella urine ag negative -sputum cx negative -cont pulmonary toilet (incentive racheal, flutter valve, etc) -pulmonary does not recommend chest PT -appreciate pulmonary consultation; VBG results noted; pulm advised BIPAP trial but wore only 5 minutes then asked for it to be stopped #ILD with exacerbation - -although she has emphysematous changes on CT chest she had no obstruction on PFTs in 06/2024 -for ILD had received steroids since admission (initially IV, then PO prednisone) -pulmonary advised against ongoing systemic steroids and steroids were d/c by them -cont Incruse Ellipta 1 puff daily -cont budesonide nebs BID -cont formoterol nebs BID -cont saline nebs BID -cont mucinex BID -duonebs prn -gave lasix x 1 earlier in the admission with prompt rise in BUN & Cr; this would argue against volume overload/pulm edema Discharge home with increased pulmonary treatments as advised by spring assembler supervisor - budesonide / formoterol / saline nebs, follow up with Dr. Cortez #chronic hypoxic and hypercapnic respiratory failure on home O2 - -continue usual home O2 - 3L -chronic resp failure 2nd to ILD, pulmonary HTN, etc. intolerant of bipap during brief trial in hospital #RUL pulmonary nodule - -will need surveillance of this nodule post-d/c -high risk for lung ca in light of extensive smoking history #chronic HFpEF - -lasix 20mg IV x 1 for ?pulmonary edema -this led to rise in BUN and Cr within 24 hours; this argues that no pulm edema was/is present (no CHF exacerbation) -cxrs and chest CT w/o overt edema #hypothyroidism - -TSH wnl -cont levothyroxine #chronic DVT - as seen on b/l LE dopplers 10/2024 - -cont Eliquis 2.5mg BID #parkinsonism - -cont sinemet 2 tabs TID -PT/OT while here as tolerated #chronic right eye disease - -cont erythromycin eye ointment HS -cont prednisolone drops HS -patient wants 2nd opinion re: this issue -referral made to Dr Edgard Lomeli, [facility] #chronic CKD stage 3 - -fluctuating renal function while hospitalized -baseline Cr ~1.3 to 1.6 -stable #DVT proph - -Eliquis 2.5mg BID #macrocytosis - -has seen heme/onc earlier in 2024 -underwent bone marrow bx - negative for malignancy and multiple myeloma -B12 level in 2023 - >1500 -folate this admission wnl -TSH earlier this month wnl #chronic sinus symptoms/"congestion"/deviated septum - -CT sinuses with clear sinuses -deviated septum likely contributes to her "congestion" feeling in the nose home with caregivers Notes For Next Care Provider #RUL pulmonary nodule - -will need surveillance of this nodule post-d/c -high risk for lung ca in light of extensive smoking history Medication Changes From Visit added budesonide/formoterol/saline nebs, continue flutter valve Admission HPI Per Admitting Provider 79yo female with chronic hypoxic respiratory failure, previous long-standing tobacco use (nearly 50 years), ILD, anemia, parkinsonism, pulmonary hypertension, chronic HFpEF, GERD with history of GI bleed, hypothyroidism, lumbar spinal stenosis, CKD stage IV, prediabetes, vitamin D deficiency, and osteoporosis. She was hospitalized at [facility] from 11/07 to 12/02 earlier this summer for ESBL ecoli bacteremia 2nd to UTI. Course complicated by acute/chronic CHF. Was discharged to [facility] for rehab. She had a lengthy rehab stay at [facility] and was discharged from there on 01/31/25 to her home in [place]. Per records she had 2 chest x-rays in December at [facility] showing b/l infiltrates. She was treated for pneumonia twice while at [facility] - first with course of levofloxacin, and 2nd with course of augmentin. She also had received steroids, nebs, etc. When she was discharged on 01/31 she finished a course of augmentin at home and was requiring 2 L NC O2. Patient states she was feeling ok upon discharge home with improved cough/wheezing/dyspnea. She felt tired but her appetite was ok and she initially did well upon transition home. However, about 1 week ago, she developed recurrent fatigue, weakness, and her cough worsened. Several days ago she developed green sputum production (sputum was clear prior to that). Dyspnea worsened and wheezing increased as well. Was using her neb machine about once daily. Last night her dyspnea worsened further and she increased her NC O2 from 2 liters to 3 liters. Due to her worsening symptoms she called 911 today and EMS brought her to [facility] evaluation. CT chest appears to show LLL pneumonia. Received IV rocephin & doxycycline, a neb treatment, and solumedrol 60mg IV x 1. During my admission assessment her o2 sats were mid 90s on 1 liter NC O2. Daughter was at bedside providing supplemental history. Discharge Exam Last 24h vitals reviewed GEN: no acute distress, sitting in bed HEENT: pupils equal, sclerae anicteric no conj injection or drainage, moist MM RESP: normal WOB, coarse/loose upper airway sounds, beyond that sounds clear CV: reg no mrg ABD: soft/nt/nd +BT : no zepeda SKIN: warm and dry, no generalized rashes NEURO: AOx person, place, and situation. Face symmetric, speech normal, moves 4 ext spontaneously and equally Discharge Plan Discharge Items Patient Disposition: Home - Home Health Services Reason For Visit: LLL PNEUMONIA Discharge Diagnosis: LLL Pneumonia Condition on Discharge: Good Activity: Resume your previous activity Non-emergency contact: Primary Care Provider and Sap Bw Architect Call non-emergency contact if: you have any medication questions and your symptoms worsen Follow-up/Referrals: Juan Diego Cortez MD [Physician] - 03/25/25 Katarina Peters DO [Primary Care Provider] - 03/04/25 1:30 pm Diet: Regular Addtl Attending Provider Instructions: While you were in the hospital you were treated for pneumonia and a flareup of breathing problems You finished a course of antibiotics while in the hospital A CT scan ruled out sinusitis, but you do have a deviated nasal septum which will contribute to nasal congestion You would benefit from a Bipap at nighttime for your lung disease but you did not tolerate a trial of it in the hospital. Talk to Dr. Cortez if this is something you would consider trying again in the future. Continue your breathing treatments and follow up with Dr. Cortez Home health PT and OT For a second opinion about your eye problem Dr. Huff recommended Dr Edgard Lomeli, [facility] It was a pleasure taking care of you in the hospital, Yessi Presley MD Pending Studies at Discharge: No Stand-Alone Forms: My [facility] [employer], Smoking Cessation Medications and DC Order Prescriptions: New formoterol fumarate [Perforomist] 20 mcg/2 mL Solution For Nebulization 20 mcg NEB BIDR Qty: 120 0RF Incruse Ellipta 62.5 mcg/actuation Blister With Device 1 inh inhalation DAILY Qty: 30 0RF sodium chloride 7 % Solution For Nebulization 4 ml NEB BIDR Qty: 240 0RF azelastine 137 mcg (0.1 %) [place],Non-Aerosol 1 spray NA BID Qty: 30 0RF sennosides [Senna Lax] 8.6 mg Tablet 17.2 mg PO QAM PRN (Reason: constipation) Qty: 0 0RF Rx Instructions: may buy over the counter budesonide 0.25 mg/2 mL Suspension For Nebulization 0.25 mg NEB BIDR Qty: 120 0RF guaifenesin [Mucinex] 600 mg Tablet Extended Release 12hr 600 mg PO Q12 PRNQty: 0 0RF Continued famotidine 20 mg tablet 20 mg PO DAILY Qty: 90 3RF folic acid 1 mg tablet 1 mg PO QAM Qty: 90 3RF Eliquis 2.5 mg tablet 2.5 mg PO BID Qty: 180 1RF thiamine HCl (vitamin B1) 100 mg tablet 200 mg PO QAM magnesium 200 mg tablet 200 mg PO DAILY pyridoxine (vitamin B6) 100 mg tablet 100 mg PO QAM atorvastatin 80 mg tablet 80 mg PO HS ipratropium-albuterol 0.5 mg-3 mg(2.5 mg base)/3 mL solution for nebulization 3 ml inhalation .Q4-6HRS PRN (Reason: dyspnea) albuterol sulfate 90 mcg/actuation Hfa Aerosol Inhaler 2 inh INHALATION DAILY PRN (Reason: Shortness Of Breath Or Wheezing) fluticasone propionate [Flonase Allergy Relief] 50 mcg/actuation [place],Suspension 2 spray INTRANASAL DAILY PRN (Reason: .allergy symptoms) Rx Instructions: administer into each nostril acetaminophen [Tylenol] 325 mg Tablet 650 mg PO Q6 PRN (Reason: fever or pain) Qty: 60 0RF valacyclovir 500 mg tablet 500 mg PO DAILY carbidopa-levodopa 10-100 mg tablet 2 tab PO TID Prolia 60 mg/mL syringe 60 mg subcut .EVERY 6 MONTHS levothyroxine 88 mcg tablet 88 mcg PO DAILYBB cyanocobalamin (vitamin B-12) [Vitamin B-12] 1,000 mcg Tablet 1,000 mcg PO QAM erythromycin 5 mg/gram (0.5 %) ointment 1 applic OPR HS doxepin 3 mg tablet 3 mg PO HS PRN (Reason: Sleep) prednisolone acetate 1 % drops,suspension 1 drp OPR HS furosemide 20 mg Tablet 20 mg PO QAM Qty: 10 0RF Discontinued peg 3350-electrolytes [Golytely] 236-22.74-6.74 -5.86 gram recon soln 240 ml PO Q10M Qty: 4000 0RF Rx Instructions: PT HAS NOT TAKEN YET, TEST NOT SCHEDULED Take per split dose instructions Discharge Orders: Discharge Order (Routine); Ordered 02/25/25 Ordered By: Yessi Presley Admission Data Admit Date/Time: 02/18/25 17:49 Attending Provider: Yessi Presley Admit Provider: Isidro Huff Primary Care Provider: Katarina Peters Other Providers: [facility] Fax; Isidro Huff; Harjit Correia Other Interventions: Discharge Summary Assessment (RN) Last Done: 02/25/25 09:41 Hospital Stay Data Consultations 02/18/25 16:40 ED Decision to Admit Stat 02/22/25 09:43 Consult Pulmonology Routine Diagnostic Imagining Performed 02/18/25 14:21 CT chest diagnostic w con Stat 02/23/25 11:18 CT sinus wo con Routine 02/23/25 11:54 Fluoro video [FL video swallow] Routine Pending Results Patient Have Any Pending Studies at Discharge: No Discharge Instructions Given to Patient (Per Discharging Provider) While you were in the hospital you were treated for pneumonia and a flareup of breathing problems You finished a course of antibiotics while in the hospital A CT scan ruled out sinusitis, but you do have a deviated nasal septum which will contribute to nasal congestion You would benefit from a Bipap at nighttime for your lung disease but you did not tolerate a trial of it in the hospital. Talk to Dr. Cortez if this is something you would consider trying again in the future. Continue your breathing treatments and follow up with Dr. Cortez Home health PT and OT For a second opinion about your eye problem Dr. Huff recommended Dr Edgard Lomeli, [facility] It was a pleasure taking care of you in the hospital, Yessi Presley MD Total Time Total Time Spent Total Time Spent (In Minutes): <30 Coding Level of Care Code 93245 IN/OBS DISCH 30 MIN/LESS Diagnoses LLL pneumonia J18.9 Interstitial lung disease J84.9 Pulmonary nodule R91.1 Parkinson's disease G20.A1 Hypothyroidism, unspecified type E03.9 Hypothyroidism type: unspecified CKD (chronic kidney disease), stage IV N18.4 Chronic deep vein thrombosis (DVT) I82.509 Chronic respiratory failure with hypoxia and hypercapnia J96.11; J96.12
[2025-02-25 02:54] VITALS: O2SAT 96
[2025-02-25 07:21] VITALS: BP 144/69; RESP 20; TEMP 97.5
--- NOTE | 2025-02-25 08:24 | Hospitalist Progress Note ---
Date of Service February 24, 2025 Assessment & Plan (1) LLL pneumonia: (2) Interstitial lung disease: (3) Pulmonary nodule: (4) Parkinson's disease: (5) Hypothyroidism: (6) CKD (chronic kidney disease), stage IV: (7) Chronic deep vein thrombosis (DVT): (8) Chronic respiratory failure with hypoxia and hypercapnia: Plan 79yo female with chronic hypoxic respiratory failure, previous long-standing tobacco use (nearly 50 years), ILD, anemia, parkinsonism, pulmonary hypertension, chronic HFpEF, GERD with history of GI bleed, hypothyroidism, lumbar spinal stenosis, CKD stage IV, prediabetes, vitamin D deficiency, and osteoporosis. She was hospitalized at [facility] from 11/07 to 12/02 earlier this summer for ESBL ecoli bacteremia 2nd to UTI. Course complicated by acute/chronic CHF. Was discharged to [facility] for rehab. She had a lengthy rehab stay at [facility] and was discharged from there on 01/31/25 to her home in [place]. While at rehab was treated twice for pneumonia and was on two courses of antibiotics (levofloxacin & augmentin, respectively). About a week after getting home she again developed worsening cough/congestion/sputum production/wheezing/dyspnea. #LLL pneumonia - -as seen on CT chest at ER presentation -this would be her 3rd episode of pneumonia over the last 2+ months -suspect 2nd to progressive ILD with background of emphysema -aspiration ruled out - video swallow negative -since she was hospitalized <90 days prior covered for gram negative pneumonia with cefepime IV; had doxy for atypical coverage -completed ~5 days of cefepime/doxy -then had 1 dose of levaquin PO -now off all abx -clinically improved -NO SINUSITIS on CT sinuses -MRSA swab negative; MRSA coverage deferred -respiratory BioFire negative -legionella urine ag negative -sputum cx negative -cont pulmonary toilet (incentive racheal, flutter valve, etc) -pulmonary does not recommend chest PT -appreciate pulmonary consultation; VBG results noted; pulm advised BIPAP trial but wore only 5 minutes then asked for it to be stopped #ILD with exacerbation - -although she has emphysematous changes on CT chest she had no obstruction on PFTs in 06/2024 -for ILD had received steroids since admission (initially IV, then PO prednisone) -pulmonary advised against ongoing systemic steroids and steroids were d/c by them -cont Incruse Ellipta 1 puff daily -cont budesonide nebs BID -cont formoterol nebs BID -cont saline nebs BID -cont mucinex BID -duonebs prn -gave lasix x 1 earlier in the admission with prompt rise in BUN & Cr; this would argue against volume overload/pulm edema Discharge home with increased pulmonary treatments as advised by creative project manager - budesonide / formoterol / saline nebs, follow up with Dr. Cortez #chronic hypoxic and hypercapnic respiratory failure on home O2 - -continue usual home O2 - 3L -chronic resp failure 2nd to ILD, pulmonary HTN, etc. intolerant of bipap during brief trial in hospital #RUL pulmonary nodule - -will need surveillance of this nodule post-d/c -high risk for lung ca in light of extensive smoking history #chronic HFpEF - -lasix 20mg IV x 1 for ?pulmonary edema -this led to rise in BUN and Cr within 24 hours; this argues that no pulm edema was/is present (no CHF exacerbation) -cxrs and chest CT w/o overt edema #hypothyroidism - -TSH wnl -cont levothyroxine #chronic DVT - as seen on b/l LE dopplers 10/2024 - -cont Eliquis 2.5mg BID #parkinsonism - -cont sinemet 2 tabs TID -PT/OT while here as tolerated #chronic right eye disease - -cont erythromycin eye ointment HS -cont prednisolone drops HS -patient wants 2nd opinion re: this issue - will give her options and help her with a f/u appt after discharge -consider referral to Dr Edgard Lomeli, [facility] #chronic CKD stage 3 - -fluctuating renal function while hospitalized -baseline Cr ~1.3 to 1.6 -stable #DVT proph - -Eliquis 2.5mg BID #macrocytosis - -has seen heme/onc earlier in 2024 -underwent bone marrow bx - negative for malignancy and multiple myeloma -B12 level in 2023 - >1500 -folate this admission wnl -TSH earlier this month wnl #chronic sinus symptoms/"congestion"/deviated septum - -CT sinuses with clear sinuses -deviated septum likely contributes to her "congestion" feeling in the nose -added humidified O2 home with caregivers - planned for DC home 02/24 but caregivers and transportation were not available so will DC home 02/25 Admission and Anticipated Discharge Date Admission Date: February 18, 2025 Subjective Late entry of note from 02/24 Breathing is back to baseline No dyspnea or chest pain Feels pretty good Physical Exam Physical Exam: Last 24h vitals reviewed GEN: no acute distress, sitting in bed HEENT: pupils equal, sclerae anicteric, moist MM RESP: normal WOB, CTAB CV: reg no mrg ABD: soft/nt/nd +BT : no zepeda SKIN: warm and dry, no generalized rashes NEURO: AOx person, place, and situation. Face symmetric, speech normal, moves 4 ext spontaneously and equally Results & Data Results & Data Vital Signs (Past 12 Hours) Vital Signs Temp Pulse Resp BP Pulse Ox O2 Del Method O2 Flow Rate 02/25/25 07:20 36.4 C L 70 20 144/69 H 96 Nasal Cannula 2 02/25/25 07:16 72 18 96 Nasal Cannula 2 02/25/25 02:53 36.6 C 80 16 128/88 96 Nasal Cannula 2 02/24/25 21:28 Nasal Cannula 2 PG Care Time/CCT Total # of Minutes Spent Total Time Spent with Patient: Total time spent is greater than 50% in coordination of care (as documented) at patient's floor/unit and/or counseling patient: Coding Level of Care Code 96006 SUB INP/OBS CARE 2/35MIN Diagnoses LLL pneumonia J18.9 Interstitial lung disease J84.9 Pulmonary nodule R91.1 Parkinson's disease G20.A1 Hypothyroidism, unspecified type E03.9 Hypothyroidism type: unspecified CKD (chronic kidney disease), stage IV N18.4 Chronic deep vein thrombosis (DVT) I82.509 Chronic respiratory failure with hypoxia and hypercapnia J96.11; J96.12 (5) Hypothyroidism Hypothyroidism type: unspecified Qualified Code(s): E03.9 - Hypothyroidism, unspecified
[2025-02-25 09:43] VITALS: PULSE 96
== END 2025-02-25 11:16 | disposition home health service (06) | DRG 194 ==
LOC: ED 12:02 → SUATTDRO 17:49 → EDINP 17:49 → 4W 20:39

== ENCOUNTER 2025-03-04 13:00 | Inpatient (IN) ==
--- NOTE | 2025-03-04 13:38 | Emergency Department Note ---
Impression & Plan Respiratory failure, Sepsis, Collapse, lung, Multifocal pneumonia ED Provider Note NAME: SOFYA COX AGE: 79 SEX: F : 1945 ARRIVES VIA: Ambulance INFORMANT: Patient, EMS, family ED PROVIDER(S): Ritchie Parker DO CHIEF COMPLAINT: dyspnea HPI: This is a 79-year-old female with the PMHx of Parkinson's disease, chronic hypoxemic respiratory failure on low-flow nasal cannula, interstitial lung disease, pulmonary fibrosis, pulmonary hypertension, CKD, and recent hospitalization for pneumonia presenting to [facility] for further evaluation of worsening dyspnea. Patient is accompanied by EMS and family who provide additional history. EMS reports the patient remained hemodynamically stable required increased oxygen while transport to the hospital. Patient reports increased cough and congestion. She also reports worsening dyspnea that is now at rest. Patient states it feels like she is breathing heavy. She states that she completed 5 days of cefepime and doxycycline as an inpatient for community- acquired pneumonia. She states that she did complete p.o. Levaquin as an outpatient. Patient states she continues to worsen.. They deny fever or chills. Denies chest pain or palpitations. They deny abdominal pain, nausea and vomiting. No urinary complaints. No recent changes in bowel movements. Patient denies recent changes in medications or OTC supplements. Patient offers no other complaints, today. ADDITIONAL HISTORY OBTAINED: Per HPI Chronic Medical/Social Conditions Affecting Care: Per HPI PAST MEDICAL HISTORY: See Below PAST SURGICAL HISTORY: See Below FAMILY HISTORY: See Below SOCIAL HISTORY: See Below HOME MEDICATIONS: See Below ALLERGIES: See Below VITALS: See Below PHYSICAL EXAMINATION: GENERAL: Sitting up in bed, alert, well appearing, well nourished, no distress, non-toxic EYE EXAM: normal conjunctiva. PERRL and EOM's grossly intact. OROPHARYNX: no exudate, no erythema, lips, buccal mucosa, and tongue normal and mucous membranes are moist NECK: supple, no nuchal rigidity, no adenopathy, non-tender LUNGS: Decreased breath sounds in all lung rees. Some rhonchi and minimal wheezing. Normal chest wall mechanics HEART: no murmurs, regular rate, regular rhythm ABDOMEN: abdomen soft, non-tender, no masses, no rebound or guarding. BACK: Back is symmetrical on inspection and there is no deformity, no midline tenderness, no CVA tenderness. SKIN: no rashes and no bruising UPPER EXTREMITIES: upper extremities are grossly normal. LOWER EXTREMITIES: No pitting edema. NEURO EXAM: Normal sensorium, GCS 15, normal speech, no gross weakness of arms, no gross weakness of legs. MEDICAL DECISION MAKING: Differential diagnoses includes but not limited to ACS, unstable angina, dysrhythmia, PNA, hypervolemia/pulmonary edema, CHF exacerbation, COPD exacerbation, PE, pneumothorax, pericardial effusion, cardiac tamponade, anxiety/psychogenic, viral URI In summary, this is a 79 year old female who presented with dyspnea. Differential as above. Nursing notes and pertinent past medical records reviewed. Vital signs reviewed and the patient is hypoxic, tachypneic and intermittently tachycardic but otherwise afebrile and hemodynamically stable. History and presentation revealed extensive past medical history and recent hospital admission. Reviewed documentation from outpatient visits. Patient had a prolonged hospital course and rehabilitation stay. Looks like she was on multiple antibiotics including IV cefepime, doxycycline as well as Levaquin. She is now having worsening symptoms. On arrival, the patient is tachypneic with a heart rate in the 90s. Will obtain sepsis workup as she meets SIRS criteria. I do worry that the patient likely has a COPD exacerbation secondary to pneumonia. Severely diminished breath sounds on the left. Plan for chest x- ray but may benefit from CT PE study/CT chest. Diagnostics interpreted by me include EKG and cardiac monitoring as listed below: -Cardiac Monitoring: An order was placed for continuous cardiac monitoring. The monitor shows a rate of 80-110 with regular rhythm. -ECG: EKG independently interpreted by me reveals normal sinus rhythm at a ventricular rate of [address] segment changes to suggest STEMI. Intervals are within normal limits. Patient completed laboratory studies and imaging. Results independently interpreted by me are mild leukocytosis that is worse than prior. Does have stable anemia. Lactate is normal. VBG shows acute hypercapnic respiratory acidosis. Will allow the patient to finish DuoNeb as well as hour-long albuterol treatment and recheck VBG before starting BPAP. The patient was managed with broad-spectrum antibiotics and respiratory support. Ultimately, the decision was made to admit the patient for acute on chronic hypoxic hypercapnic respiratory failure secondary to pneumonia. I discussed the case with the hospitalist service via telephone/Tiger[employer] and they are agreeable to admit the patient to their services. Based on the above, including the patient's age, coexisting illnesses, labs, imaging, and exam findings the decision to treat as an inpatient. I discussed the patient with the hospitalist team who recommended admission to their services. They received the medications, treatments, interventions indicated above and their condition []. I discussed my findings with the patient and their family and they understand and agree with the treatment plan. All patient / family questions were answered to their satisfaction. Consults/Care Managements Discussions: Per MDM ER treatment provided: See above Procedures: none Critical Care: None The chart was completed utilizing [employer] voice recognition software. Grammatical errors, random word insertions, pronoun errors, and incomplete sentences are an occasional consequence of this system due to software limitations, ambient noise, and hardware issues. Any formal questions or concerns about the content, text, or information contained within the body of this dictation should be directly addressed to the physician for clarification. Past Med/Surg History Problem List (Updated 03/10/25 @ 00:19 by Ritchie Parker DO) Multifocal pneumonia (Acute) Collapse, lung (Acute) Sepsis (Acute) Respiratory failure (Acute) Acute hypoxic respiratory failure Hospital-acquired bacterial pneumonia Collapse of lung Mucus plugging of bronchi Acute on chronic respiratory failure with hypoxia and hypercapnia Chronic respiratory failure with hypoxia and hypercapnia Pulmonary nodule Dyspnea (Acute) Bacteremia Acute heart failure Septic shock Acute kidney injury superimposed on stage 3a chronic kidney disease Sepsis (Acute) Acute UTI (Acute) Fullness in right ear Nasal crusting Nasal septal erosion Anemia (Acute) Interstitial lung disease Parkinsonism Pulmonary hypertension Mitral annular calcification Mitral stenosis Hypomagnesemia (Acute) Lumbar spinal stenosis Hypothyroidism History of compression fracture of vertebral column (~12/04/18) Thoracic Pulmonary emphysema CKD (chronic kidney disease), stage IV 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, Mobitz type II Peripheral artery disease Prediabetes Iron deficiency anemia Vitamin D deficiency (Acute) Primary hypercoagulable state (Chronic) Osteoporosis (Chronic) History of follicular lymphoma Sensorineural hearing loss (SNHL) of both ears Ataxia Secondary hyperparathyroidism of renal origin Medical History Parkinson's disease Abnormal chest CT Chronic dyspnea Stage 1 skin ulcer of sacral region Kidney stones Hallucinations Compression fracture of lumbar spine, non-traumatic (~09/23/23) seeing orthopedics Closed T2 fracture (~10/08/23) Parkinsons disease Type 2 diabetes mellitus without complication HTN (hypertension) DVT (deep venous thrombosis) Hyponatremia Megaloblastic anemia Diet-controlled diabetes mellitus History of ischemic stroke Second degree AV block, Mobitz type I Cardiomyopathy Chronic GERD Chronic fatigue syndrome Chronic laryngitis Cigarette smoker motivated to quit 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 Depression Dermatitis, eczematoid Diabetes mellitus (11/29/12) Hearing loss Hoarseness Ischemic colitis Low back pain NSTEMI (non-ST elevated myocardial infarction) Recurrent UTI SNHL (sensorineural hearing loss) Secondary hyperparathyroidism (of renal origin) Solitary pulmonary nodule Subsequent non-ST elevation (NSTEMI) myocardial infarction Vertigo GERD (gastroesophageal reflux disease) Chronic kidney disease Hypothyroidism (acquired) GI bleed Chronic deep vein thrombosis of left lower extremity Hyperlipidemia Thyroid disease Surgical History History of lumbar laminectomy for spinal cord decompression History of tubal ligation History of D&C History of Hx of colonoscopy Family History Mother , age 76 with leukemia Leukemia Hypertension Father , age 86 with heart issues Myocardial infarction Diabetes Other Family history non-contributory Denies family history of Ovarian cancer Prostate cancer Breast cancer Lung cancer Social History Smoking Status: Former smoker Tobacco Type: Cigarettes Age Started Using Tobacco: 17; Age Quit Using Tobacco: 73; packs per day: 1; Second Hand Exposure: No; Do You Dip or Chew Tobacco: No; Hx Alcohol Use: No Hx Substance Use: No Preferred Language: Hungarian Communication Ability: Effective Visual Impairment: No Limitations Hearing Ability: Use of Hearing Aid Massage Therapist Required: No Beliefs That Will Affect Care: None marital status: Current Living Situation: Alone Current Living Situation Comment: home alone, recently [facility] current occupational status: retired 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 How many Children do You have: 3 How many Children do You have Comment: 1 daughter is Feels Safe at Home: Yes Safety Concerns: Feels Safe At This Time Childhood Exposure to Second-Hand Smoke: Yes Diet: regular caffeine: No Dental Care, Regularly: No Physical Activity Frequency: Does not Exercise Seatbelt Use: always Sunscreen Use: No Do you think of yourself as: straight/heterosexual Gender Identity: Female Assistive Devices: Oxygen - Continuous and Walker Allergies Allergies Allergy/AdvReac Type Severity Reaction Status Date / Time azithromycin [From Zithromax] Allergy Intermediate HIVES Verified 03/04/25 15:27 nitrofurantoin Allergy Intermediate HIVES,ITCHI Verified 03/04/25 15:27 NG tramadol AdvReac Mild nausea Verified 03/04/25 15:27 Home Meds Home Medications Medication Instructions Recorded Confirmed albuterol sulfate 90 mcg/actuation 2 inh inhalation DAILY PRN 11/08/23 03/04/25 aerosol inhaler Shortness Of Breath Or Wheezing fluticasone propionate 50 2 spray intranasal DAILY PRN 11/08/23 03/04/25 mcg/actuation nasal .allergy symptoms spray,suspension (Flonase Allergy Relief) valacyclovir 500 mg tablet 500 mg PO DAILY 03/19/24 03/04/25 magnesium 200 mg tablet 200 mg PO DAILY 09/24/24 03/04/25 carbidopa 10 mg-levodopa 100 mg 2 tab PO TIDM 11/17/24 03/04/25 tablet cyanocobalamin (vitamin B-12) 1,000 mcg PO QAM 11/17/24 03/04/25 1,000 mcg tablet (Vitamin B-12) levothyroxine 88 mcg tablet 88 mcg PO DAILYBB 11/17/24 03/04/25 prednisolone acetate 1 % eye 1 drp OPR QAM 11/17/24 03/04/25 drops,suspension ipratropium 0.5 mg-albuterol 3 mg 3 ml inhalation QID PRN dyspnea 02/18/25 03/04/25 (2.5 mg base)/3 mL nebulization soln diclofenac sodium 1 % topical gel 4 g topical QID PRN KNEE PAIN 03/04/25 03/04/25 furosemide 40 mg tablet 40 mg PO DAILY 03/04/25 03/04/25 polyethylene glycol 3350 17 17 g PO DAILY 03/04/25 03/04/25 gram/dose oral powder (Miralax) Previous Rx's Medication Instructions Recorded acetaminophen 325 mg tablet 650 mg (2 x 325 mg) PO Q6 PRN 11/15/23 (Tylenol) fever or pain #60 tabs famotidine 20 mg tablet 20 mg PO DAILY #90 tabs 12/25/23 folic acid 1 mg tablet 1 mg PO QAM #90 tabs 12/25/23 apixaban 2.5 mg tablet (Eliquis) 2.5 mg PO BID #180 tabs 11/18/24 azelastine 137 mcg (0.1 %) nasal 1 spray NA BID #30 mL 02/24/25 spray budesonide 0.25 mg/2 mL suspension 0.25 mg (2 mL) NEB BIDR #120 mL 02/24/25 for nebulization formoterol fumarate 20 mcg/2 mL 20 mcg (2 mL) NEB BIDR #120 mL 02/24/25 solution for nebulization (Perforomist) umeclidinium 62.5 mcg/actuation 1 inh inhalation DAILY #30 ea 02/24/25 blister powder for inhalation (Incruse Ellipta) thiamine HCl (vitamin B1) 100 mg 200 mg (2 x 100 mg) PO QAM #90 tabs 03/02/25 tablet atorvastatin 80 mg tablet 80 mg PO HS #30 tabs 03/03/25 Results & Data (ED) Vital Signs Vital Signs - 24 hr 03/04/25 13:21 03/04/25 13:37 03/04/25 14:05 Pulse Rate 94 H 93 H Respiratory Rate 22 Pulse Oximetry 96 Oxygen Flow Rate 3 Sepsis New/Unexplained Change in Mental Status No Sepsis Action Taken by Nursing No Action Required Laboratory Data 03/09/25 09:55 03/09/25 09:55 Lab Results 03/04/25 03/04/25 03/04/25 Range/Units 13:43 13:54 14:03 WBC 13.69 H (4.8-10.8) K/ul RBC 2.93 L (4.20-5.40) M/uL Hgb 10.5 L (12.0-16.0) g/dl Hct 33.4 L (37.0-47.0) % MCV 114.0 H (80.0-100.0) fL MCH 35.8 H (25.0-34.0) pg MCHC 31.4 L (32.0-36.0) g/dL RDW Std Deviation 59.6 H (36.4-46.3) fL RDW Coeff of Damien 14.2 (11.5-14.5) % Plt Count 223 (130-400) K/uL MPV 11.0 (9.4-12.4) fL Immature Gran % (Auto) 0.5 % Neut % (Auto) 83.3 % Lymph % (Auto) 9.6 % Ransom % (Auto) 5.6 % Eos % (Auto) 0.7 % Baso % (Auto) 0.3 % Neut # (Auto) 11.41 H (1.40-6.50) K/uL Lymph # (Auto) 1.32 (1.20-3.40) K/uL Ransom # (Auto) 0.76 H (0.11-0.59) K/uL Eos # (Auto) 0.09 (0.00-0.50) K/uL Baso # (Auto) 0.04 (0.00-0.20) K/uL Immature Gran # (Auto) 0.07 (0.01-0.20) K/uL Macrocytosis Present PT 10.7 (9.0-12.0) Seconds INR 1.0 (0.9-1.1) APTT 29 (21-31) Seconds PTT Ratio 1.1 VBG pH 7.35 L (7.36-7.41) VBG pCO2 63 H (38-50) mmHg VBG pO2 24 mmHg VBG HCO3 35 mmol/L VBG O2 Saturation < 60.0 % VBG Base Excess 7.5 mEq/L Sodium 139 (136-145) mmol/L Potassium 4.5 (3.5-5.1) mmol/L Chloride 99 (98-107) mmol/L Carbon Dioxide 34 H (21-32) mmol/L Anion Gap 6 (3-11) BUN 15 (6-23) mg/dl Creatinine 1.19 (0.6-1.2) mg/dl Est Cr Clr Drug Dosing 23.1 ml/min eGFR 45.94 BUN/Creatinine Ratio 12.6 (10-20) Glucose 115 H (70-99(Fasting)) mg/dl Lactate 1.0 (0.4-2.0) mmol/L Calcium 9.0 (8.6-10.3) mg/dl Magnesium 1.9 (1.7-2.4) mg/dl Total Bilirubin 0.5 (0.2-1.0) mg/dl Direct Bilirubin 0.1 (0-0.2) mg/dl AST 18 (13-39) U/L ALT 4 L (7-52) U/L Alkaline Phosphatase 72 (34-104) U/L Troponin I High Sens 12.7 (0-14) pg/ml B-Natriuretic Peptide 286 H (0-100) pg/ml Total Protein 6.4 (6.0-8.3) gm/dl Albumin 3.5 (3.4-5.0) gm/dl Procalcitonin 0.19 (0-0.5) ng/ml Urine Color Urine Appearance (Clear) Urine pH (4.5-7.5) Ur Specific [place] (1.000-1.030) Urine Protein (Negative) Urine Glucose (UA) (Negative) Urine Ketones (Negative) Urine Blood (Negative) Urine Nitrite (Negative) Urine Bilirubin (Negative) Urine Urobilinogen (Negative) Ur Leukocyte Esterase (Negative) Urine WBC (Auto) (0-5) /hpf Urine RBC (Auto) (0-2) /hpf U Hyaline Cast (Auto) (0-2) /lpf U Epithel Cells (Auto) (0-2) /hpf Urine Bacteria (Auto) (None Seen) Urine Comment Nasal Screen MRSA (PCR) Negative (Negative) Adenovirus (PCR) Not Detected (NotDetected) B. pertussis DNA (PCR) Not Detected (NotDetected) B.parapertussis DNA PCR Not Detected (NotDetected) C. pneumoniae DNA (PCR) Not Detected (NotDetected) Coronavirus OC43 (PCR) Not Detected (NotDetected) Coronavirus HKU1 (PCR) Not Detected (NotDetected) Coronavirus 229E (PCR) Not Detected (NotDetected) SARS-CoV-2 (PCR) Not Detected (NotDetected) Coronavirus NL63 (PCR) Not Detected (NotDetected) Human Metapneumovir PCR Not Detected (NotDetected) Influenza Type A (PCR) Not Detected (NotDetected) Influenza Type B (PCR) Not Detected (NotDetected) M. pneumoniae (PCR) Not Detected (NotDetected) Parainfluenza 1 (PCR) Not Detected (NotDetected) Parainfluenza 2 (PCR) Not Detected (NotDetected) Parainfluenza 3 (PCR) Not Detected (NotDetected) Parainfluenza 4 (PCR) Not Detected (NotDetected) RSV (PCR) Not Detected (NotDetected) Entero/Rhino (PCR) Not Detected (NotDetected) 03/04/25 03/04/25 03/04/25 Range/Units 16:41 17:18 18:47 WBC (4.8-10.8) K/ul RBC (4.20-5.40) M/uL Hgb (12.0-16.0) g/dl Hct (37.0-47.0) % MCV (80.0-100.0) fL MCH (25.0-34.0) pg MCHC (32.0-36.0) g/dL RDW Std Deviation (36.4-46.3) fL RDW Coeff of Damien (11.5-14.5) % Plt Count (130-400) K/uL MPV (9.4-12.4) fL Immature Gran % (Auto) % Neut % (Auto) % Lymph % (Auto) % Ransom % (Auto) % Eos % (Auto) % Baso % (Auto) % Neut # (Auto) (1.40-6.50) K/uL Lymph # (Auto) (1.20-3.40) K/uL Ransom # (Auto) (0.11-0.59) K/uL Eos # (Auto) (0.00-0.50) K/uL Baso # (Auto) (0.00-0.20) K/uL Immature Gran # (Auto) (0.01-0.20) K/uL Macrocytosis PT (9.0-12.0) Seconds INR (0.9-1.1) APTT (21-31) Seconds PTT Ratio VBG pH 7.34 L (7.36-7.41) VBG pCO2 61 H (38-50) mmHg VBG pO2 27 mmHg VBG HCO3 33 mmol/L VBG O2 Saturation < 60.0 % VBG Base Excess 5.2 mEq/L Sodium (136-145) mmol/L Potassium (3.5-5.1) mmol/L Chloride (98-107) mmol/L Carbon Dioxide (21-32) mmol/L Anion Gap (3-11) BUN (6-23) mg/dl Creatinine (0.6-1.2) mg/dl Est Cr Clr Drug Dosing ml/min eGFR BUN/Creatinine Ratio (10-20) Glucose (70-99(Fasting)) mg/dl Lactate (0.4-2.0) mmol/L Calcium (8.6-10.3) mg/dl Magnesium (1.7-2.4) mg/dl Total Bilirubin (0.2-1.0) mg/dl Direct Bilirubin (0-0.2) mg/dl AST (13-39) U/L ALT (7-52) U/L Alkaline Phosphatase (34-104) U/L Troponin I High Sens (0-14) pg/ml B-Natriuretic Peptide (0-100) pg/ml Total Protein (6.0-8.3) gm/dl Albumin (3.4-5.0) gm/dl Procalcitonin (0-0.5) ng/ml Urine Color Yellow Urine Appearance Clear (Clear) Urine pH 8.0 H (4.5-7.5) Ur Specific [place] 1.041 H (1.000-1.030) Urine Protein Trace H (Negative) Urine Glucose (UA) Negative (Negative) Urine Ketones Negative (Negative) Urine Blood Negative (Negative) Urine Nitrite Negative (Negative) Urine Bilirubin Negative (Negative) Urine Urobilinogen Negative (Negative) Ur Leukocyte Esterase Negative (Negative) Urine WBC (Auto) 0-5 (0-5) /hpf Urine RBC (Auto) 0-2 (0-2) /hpf U Hyaline Cast (Auto) 0-2 (0-2) /lpf U Epithel Cells (Auto) 0-2 (0-2) /hpf Urine Bacteria (Auto) None Seen (None Seen) Urine Comment Nasal Screen MRSA (PCR) Negative (Negative) Adenovirus (PCR) (NotDetected) B. pertussis DNA (PCR) (NotDetected) B.parapertussis DNA PCR (NotDetected) C. pneumoniae DNA (PCR) (NotDetected) Coronavirus OC43 (PCR) (NotDetected) Coronavirus HKU1 (PCR) (NotDetected) Coronavirus 229E (PCR) (NotDetected) SARS-CoV-2 (PCR) (NotDetected) Coronavirus NL63 (PCR) (NotDetected) Human Metapneumovir PCR (NotDetected) Influenza Type A (PCR) (NotDetected) Influenza Type B (PCR) (NotDetected) M. pneumoniae (PCR) (NotDetected) Parainfluenza 1 (PCR) (NotDetected) Parainfluenza 2 (PCR) (NotDetected) Parainfluenza 3 (PCR) (NotDetected) Parainfluenza 4 (PCR) (NotDetected) RSV (PCR) (NotDetected) Entero/Rhino (PCR) (NotDetected) Administered Medications Acetaminophen (Acetaminophen 325 Mg Tab) 650 mg PO Q6 PRN PRN Reason: fever or pain Stop: 04/03/25 21:48 Last Admin: 03/09/25 07:56 Dose: 650 mg Documented By: Admin: 03/07/25 11:48 Dose: 650 mg Documented By: Admin: 03/07/25 04:49 Dose: 650 mg Documented By: Admin: 03/06/25 18:49 Dose: 650 mg Documented By: Admin: 03/06/25 03:05 Dose: 650 mg Documented By: JASON Albuterol (Albut/Ipratrop 3mg/0.5mg Neb 3 Ml Vial) 3 ml NEB QIDR [facility]; Protocol Stop: 04/03/25 18:59 Last Admin: 03/09/25 20:09 Dose: Not Given Documented By: Admin: 03/09/25 15:09 Dose: 3 ml Documented By: Admin: 03/09/25 10:52 Dose: 3 ml Documented By: Admin: 03/09/25 07:07 Dose: Not Given Documented By: Admin: 03/08/25 20:10 Dose: Not Given Documented By: EMCheryl Admin: 03/08/25 15:07 Dose: 3 ml Documented By: Admin: 03/08/25 11:05 Dose: 3 ml Documented By: JBCheryl Admin: 03/08/25 07:26 Dose: Not Given Documented By: JBCheryl Admin: 03/07/25 19:15 Dose: Not Given Documented By: Admin: 03/07/25 15:20 Dose: 3 ml Documented By: [id number] Admin: 03/07/25 13:13 Dose: Not Given Documented By: [id number] Admin: 03/07/25 07:12 Dose: Not Given Documented By: [id number] Admin: 03/06/25 20:56 Dose: Not Given Documented By: Admin: 03/06/25 15:22 Dose: 3 ml Documented By: Admin: 03/06/25 10:54 Dose: 3 ml Documented By: Admin: 03/06/25 10:54 Dose: Not Given Documented By: Admin: 03/05/25 20:22 Dose: Not Given Documented By: Admin: 03/05/25 15:51 Dose: 3 ml Documented By: Admin: 03/05/25 11:34 Dose: 3 ml Documented By: JOSE(2) Admin: 03/05/25 07:30 Dose: 3 ml Documented By: Admin: 03/04/25 22:20 Dose: 3 ml Documented By: BOB Atorvastatin Calcium (Atorvastatin 40 Mg Tab) 80 mg PO HS LOREN Stop: 04/03/25 21:48 Last Admin: 03/09/25 20:00 Dose: 80 mg Documented By: Admin: 03/08/25 21:00 Dose: 80 mg Documented By: Admin: 03/07/25 20:06 Dose: 80 mg Documented By: Admin: 03/06/25 20:15 Dose: 80 mg Documented By: Admin: 03/05/25 21:56 Dose: 80 mg Documented By: Admin: 03/04/25 22:50 Dose: 80 mg Documented By: JASON Azelastine HCl (Azelastine Hcl 0.1% Nasal 200 Sprays/27,400 Mcg Btl) 1 sprays NA BID LOREN Stop: 04/03/25 21:48 Last Admin: 03/09/25 20:00 Dose: 1 sprays Documented By: Admin: 03/09/25 07:51 Dose: 1 sprays Documented By: Admin: 03/08/25 20:59 Dose: 1 sprays Documented By: Admin: 03/08/25 08:46 Dose: 1 sprays Documented By: Admin: 03/07/25 20:06 Dose: 1 sprays Documented By: Admin: 03/07/25 08:45 Dose: 1 sprays Documented By: Admin: 03/06/25 20:15 Dose: 1 sprays Documented By: Admin: 03/06/25 09:04 Dose: 1 sprays Documented By: Admin: 03/05/25 21:55 Dose: 1 sprays Documented By: Admin: 03/05/25 08:41 Dose: 1 sprays Documented By: Admin: 03/04/25 22:49 Dose: 1 sprays Documented By: JASON Budesonide (Budesonide 0.25 Mg/2 Ml Vial (Pulmicort)) 0.25 mg NEB BIDR LOREN Stop: 04/03/25 21:48 Last Admin: 03/09/25 20:09 Dose: 0.25 mg Documented By: Admin: 03/09/25 07:05 Dose: 0.25 mg Documented By: Admin: 03/08/25 20:08 Dose: 0.25 mg Documented By: Admin: 03/08/25 07:24 Dose: 0.25 mg Documented By: Admin: 03/07/25 19:07 Dose: 0.25 mg Documented By: Admin: 03/07/25 07:11 Dose: 0.25 mg Documented By: [id number] Admin: 03/06/25 20:55 Dose: 0.25 mg Documented By: Admin: 03/06/25 07:05 Dose: 0.25 mg Documented By: Admin: 03/05/25 20:21 Dose: 0.25 mg Documented By: Admin: 03/05/25 07:30 Dose: 0.25 mg Documented By: Admin: 03/04/25 22:20 Dose: 0.25 mg Documented By: BOB Carbidopa/Levodopa (Carbidopa/Levodop 10/100mg Tab) 2 tab PO TIDM LOREN Stop: 04/04/25 07:59 Last Admin: 03/09/25 17:41 Dose: 2 tab Documented By: Admin: 03/09/25 12:29 Dose: 2 tab Documented By: Admin: 03/09/25 07:51 Dose: 2 tab Documented By: Admin: 03/08/25 16:20 Dose: 2 tab Documented By: Admin: 03/08/25 11:40 Dose: 2 tab Documented By: Admin: 03/08/25 08:45 Dose: 2 tab Documented By: Admin: 03/07/25 17:05 Dose: 2 tab Documented By: Admin: 03/07/25 11:47 Dose: 2 tab Documented By: Admin: 03/07/25 08:45 Dose: 2 tab Documented By: Admin: 03/06/25 17:34 Dose: 2 tab Documented By: Admin: 03/06/25 12:36 Dose: 2 tab Documented By: Admin: 03/06/25 09:02 Dose: 2 tab Documented By: Admin: 03/05/25 16:22 Dose: 2 tab Documented By: Admin: 03/05/25 13:24 Dose: 2 tab Documented By: Admin: 03/05/25 08:42 Dose: 2 tab Documented By: GPF Cyanocobalamin (Cyanocobalamin (B-12) 500 Mcg Tablet) 1,000 mcg PO QAM LOREN Stop: 04/04/25 08:59 Last Admin: 03/09/25 07:53 Dose: 1,000 mcg Documented By: Admin: 03/08/25 08:45 Dose: 1,000 mcg Documented By: Admin: 03/07/25 12:49 Dose: 1,000 mcg Documented By: Admin: 03/06/25 12:37 Dose: 1,000 mcg Documented By: Admin: 03/05/25 08:42 Dose: 1,000 mcg Documented By: GPF Dornase Ej (Dornase Ej 2.5 Ml Amp) 2.5 ml INH BID LOREN Stop: 04/04/25 20:59 Last Admin: 03/09/25 20:13 Dose: 2.5 ml Documented By: Admin: 03/09/25 07:22 Dose: 2.5 ml Documented By: Admin: 03/08/25 20:08 Dose: 2.5 ml Documented By: Admin: 03/08/25 07:25 Dose: 2.5 ml Documented By: Admin: 03/07/25 19:14 Dose: 2.5 ml Documented By: Admin: 03/07/25 07:11 Dose: 2.5 ml Documented By: [id number] Admin: 03/06/25 20:55 Dose: 2.5 ml Documented By: Admin: 03/06/25 10:55 Dose: 2.5 ml Documented By: Admin: 03/05/25 20:21 Dose: 2.5 ml Documented By: BOB Famotidine (Famotidine 20 Mg Tab) 20 mg PO DAILY LOREN Stop: 04/04/25 08:59 Last Admin: 03/09/25 07:56 Dose: 20 mg Documented By: Admin: 03/08/25 08:48 Dose: 20 mg Documented By: Admin: 03/07/25 08:50 Dose: 20 mg Documented By: Admin: 03/06/25 10:50 Dose: 20 mg Documented By: Admin: 03/05/25 08:45 Dose: 20 mg Documented By: GREGORY Folic Acid (Folic Acid 1 Mg Tab) 1 mg PO QAM [facility] Stop: 04/04/25 08:59 Last Admin: 03/09/25 07:53 Dose: 1 mg Documented By: Admin: 03/08/25 08:45 Dose: 1 mg Documented By: Admin: 03/07/25 12:49 Dose: 1 mg Documented By: Admin: 03/06/25 12:38 Dose: 1 mg Documented By: Admin: 03/05/25 08:42 Dose: 1 mg Documented By: GPF Formoterol Fumarate (Formoterol 20 Mcg/2 Ml Vial) 20 mcg NEB BIDR [place] Stop: 04/04/25 18:59 Last Admin: 03/09/25 20:09 Dose: 20 mcg Documented By: Admin: 03/09/25 07:05 Dose: 20 mcg Documented By: Admin: 03/08/25 20:07 Dose: 20 mcg Documented By: Admin: 03/08/25 07:24 Dose: 20 mcg Documented By: Admin: 03/07/25 19:07 Dose: 20 mcg Documented By: Admin: 03/07/25 07:11 Dose: 20 mcg Documented By: [id number] Admin: 03/06/25 20:55 Dose: 20 mcg Documented By: Admin: 03/06/25 07:10 Dose: 20 mcg Documented By: Admin: 03/05/25 20:22 Dose: 20 mcg Documented By: OBB Guaifenesin (Guaifenesin Sugar Free 100 Mg/5 Ml Udc) 100 mg PO QID [facility] Stop: 04/03/25 20:59 Last Admin: 03/09/25 19:59 Dose: Not Given Documented By: Admin: 03/09/25 17:41 Dose: 100 mg Documented By: Admin: 03/09/25 12:29 Dose: 100 mg Documented By: Admin: 03/09/25 07:53 Dose: 100 mg Documented By: Admin: 03/08/25 21:00 Dose: 100 mg Documented By: Admin: 03/08/25 16:22 Dose: Not Given Documented By: Admin: 03/08/25 12:41 Dose: 100 mg Documented By: Admin: 03/08/25 08:46 Dose: 100 mg Documented By: Admin: 03/07/25 20:06 Dose: 100 mg Documented By: Admin: 03/07/25 17:05 Dose: 100 mg Documented By: Admin: 03/07/25 11:52 Dose: 100 mg Documented By: Admin: 03/07/25 08:48 Dose: 100 mg Documented By: Admin: 03/06/25 20:15 Dose: 100 mg Documented By: Admin: 03/06/25 17:34 Dose: 100 mg Documented By: Admin: 03/06/25 12:38 Dose: 100 mg Documented By: Admin: 03/06/25 09:04 Dose: 100 mg Documented By: Admin: 03/05/25 21:56 Dose: 100 mg Documented By: Admin: 03/05/25 16:22 Dose: 100 mg Documented By: Admin: 03/05/25 13:24 Dose: 100 mg Documented By: Admin: 03/05/25 08:43 Dose: 100 mg Documented By: Admin: 03/04/25 22:48 Dose: 100 mg Documented By: JASON Heparin Sodium (Porcine) (Heparin Sod 5,000 Unit/0.5 Ml Vial) 5,000 units SQ Q12 [facility] Stop: 04/08/25 20:59 Last Admin: 03/09/25 21:36 Dose: 5,000 units Documented By: AUGIE Meropenem 500 mg/ Syringe 10 mls @ 2 mls/min IV Q12H [facility]; Protocol Stop: 03/11/25 21:59 Last Admin: 03/09/25 21:36 Dose: 2 mls/min Documented By: Admin: 03/09/25 07:57 Dose: 2 mls/min Documented By: Admin: 03/08/25 21:07 Dose: 2 mls/min Documented By: Admin: 03/08/25 09:38 Dose: 2 mls/min Documented By: Admin: 03/07/25 21:15 Dose: 2 mls/min Documented By: Admin: 03/07/25 11:50 Dose: 2 mls/min Documented By: Admin: 03/06/25 21:53 Dose: 2 mls/min Documented By: Admin: 03/06/25 10:46 Dose: 2 mls/min Documented By: Admin: 03/05/25 22:03 Dose: 2 mls/min Documented By: Admin: 03/05/25 10:17 Dose: 2 mls/min Documented By: Admin: 03/04/25 22:48 Dose: 2 mls/min Documented By: JASON Levothyroxine Sodium (Levothyroxine Sodium 88 Mcg Tablet) 88 mcg PO DAILYBB [facility] Stop: 04/04/25 06:29 Last Admin: 03/09/25 05:24 Dose: 88 mcg Documented By: Admin: 03/08/25 05:50 Dose: 88 mcg Documented By: Admin: 03/07/25 04:50 Dose: 88 mcg Documented By: Admin: 03/06/25 06:23 Dose: Not Given Documented By: Admin: 03/05/25 06:07 Dose: 88 mcg Documented By: JASON Magnesium Oxide (Magnesium Oxide 400 Mg Tab) 400 mg PO DAILY [facility] Stop: 04/04/25 08:59 Last Admin: 03/09/25 07:53 Dose: 400 mg Documented By: Admin: 03/08/25 08:44 Dose: 400 mg Documented By: Admin: 03/07/25 12:48 Dose: 400 mg Documented By: Admin: 03/06/25 10:48 Dose: 400 mg Documented By: Admin: 03/05/25 08:42 Dose: 400 mg Documented By: GPF Polyethylene Glycol (Polyethylene (Miralax) 17 Gm Pack) 17 gm PO DAILY [facility] Stop: 04/04/25 08:59 Last Admin: 03/09/25 07:53 Dose: Not Given Documented By: Admin: 03/08/25 08:44 Dose: Not Given Documented By: Admin: 03/07/25 08:51 Dose: Not Given Documented By: Admin: 03/06/25 12:35 Dose: Not Given Documented By: Admin: 03/05/25 08:43 Dose: Not Given Documented By: GPF Prednisolone Acetate (Prednisolone Acetate 1% Op Susp 5 Ml Btl) 1 drops OPR QAM [facility] Stop: 04/04/25 08:59 Last Admin: 03/09/25 07:57 Dose: 1 drops Documented By: Admin: 03/08/25 08:44 Dose: 1 drops Documented By: Admin: 03/07/25 08:48 Dose: 1 drops Documented By: Admin: 03/06/25 09:03 Dose: 1 drops Documented By: Admin: 03/05/25 08:41 Dose: 1 drops Documented By: GPF Sennosides (Senna 8.6 Mg Tab) 17.2 mg PO QAM [facility] Stop: 04/06/25 08:59 Last Admin: 03/09/25 07:56 Dose: 17.2 mg Documented By: Admin: 03/08/25 08:44 Dose: 17.2 mg Documented By: Admin: 03/07/25 12:50 Dose: 17.2 mg Documented By: BRISA Sodium Chloride (Sodium Chlor 7% 4 Ml Neb) 4 ml NEB BIDR [facility] Stop: 04/03/25 18:59 Last Admin: 03/09/25 20:10 Dose: 4 ml Documented By: Admin: 03/09/25 07:05 Dose: 4 ml Documented By: Admin: 03/08/25 20:07 Dose: 4 ml Documented By: Admin: 03/08/25 07:25 Dose: 4 ml Documented By: Admin: 03/07/25 19:07 Dose: 4 ml Documented By: Admin: 03/07/25 07:11 Dose: 4 ml Documented By: [id number] Admin: 03/06/25 20:55 Dose: 4 ml Documented By: Admin: 03/06/25 06:55 Dose: 4 ml Documented By: Admin: 03/05/25 20:22 Dose: 4 ml Documented By: Admin: 03/05/25 07:29 Dose: 4 ml Documented By: Admin: 03/04/25 22:19 Dose: 4 ml Documented By: BOB Thiamine HCl (Thiamine Hcl 100 Mg Tab) 200 mg PO QAM [facility] Stop: 04/04/25 08:59 Last Admin: 03/09/25 07:52 Dose: 200 mg Documented By: Admin: 03/08/25 08:43 Dose: 200 mg Documented By: Admin: 03/07/25 12:48 Dose: 200 mg Documented By: Admin: 03/06/25 12:37 Dose: 200 mg Documented By: Admin: 03/05/25 08:41 Dose: 200 mg Documented By: GPF Valacyclovir HCl (Valacyclovir Hcl 500 Mg Tablet) 500 mg PO DAILY [facility] Stop: 04/04/25 08:59 Last Admin: 03/09/25 07:53 Dose: 500 mg Documented By: Admin: 03/08/25 08:45 Dose: 500 mg Documented By: Admin: 03/07/25 08:47 Dose: 500 mg Documented By: Admin: 03/06/25 10:47 Dose: 500 mg Documented By: Admin: 03/05/25 08:42 Dose: 500 mg Documented By: GPF Discontinued Medications Acetylcysteine (Acetylcysteine 20% Inhal Soln 4ml Dispensed By Resp.) 5 ml INH BIDR [facility] Stop: 04/03/25 18:59 Last Admin: 03/05/25 07:29 Dose: 5 ml Documented By: JBCheryl Admin: 03/04/25 22:19 Dose: 5 ml Documented By: BOB Albuterol (Albut/Ipratrop 3mg/0.5mg Neb 3 Ml Vial) 3 ml NEB NOW STA; Protocol Stop: 03/04/25 13:29 Last Admin: 03/04/25 13:49 Dose: 3 ml Documented By: BALJIT Albuterol (Albuterol 0.083% Nebu Soln 3 Ml Vial) 10 mg NEB NOW STA; Protocol Stop: 03/04/25 14:19 Last Admin: 03/04/25 14:42 Dose: 10 mg Documented By: EML(2) Vancomycin HCl 1,250 mg/ (Sodium Chloride) 525 mls @ 200 mls/hr IV NOW ONE Stop: 03/04/25 16:25 Last Infusion: 03/04/25 18:54 Dose: Infused Documented By: Admin: 03/04/25 14:26 Dose: 200 mls/hr Documented By: ADRIANA Cefepime HCl (Maxipime 2000mg) 2,000 mg in 20 mls @ 5 mls/min IV NOW STA; Protocol Stop: 03/04/25 13:51 Last Admin: 03/04/25 14:05 Dose: 5 mls/min Documented By: PEDRO Ioversol (Optiray 320 125ml) 119 ml IV ONCE ONE Stop: 03/04/25 16:28 Last Admin: 03/04/25 16:27 Dose: 119 ml Documented By: PLW Sodium Chloride (Sodium Chlor 7% 4 Ml Neb) 4 ml NEB BIDR [facility] Stop: 04/04/25 18:59 Last Admin: 03/08/25 19:01 Dose: Not Given Documented By: Admin: 03/07/25 19:10 Dose: 4 ml Documented By: Admin: 03/07/25 07:14 Dose: 4 ml Documented By: [id number] Admin: 03/06/25 20:59 Dose: 4 ml Documented By: Admin: 03/06/25 06:56 Dose: Not Given Documented By: Admin: 03/05/25 20:22 Dose: Not Given Documented By: DJP Umeclidinium [place] (Umeclidinium [place] 62.5mcg/Blister 7 Puffs/Inhaler) 1 puffs INH DAILY [facility] Stop: 04/04/25 08:59 Last Admin: 03/05/25 08:43 Dose: 1 puffs Documented By: GPF Imaging Data Radiologist's Impression: Chest X-Ray 03/04/25 13:27 XR chest 1V portable CLINICAL HISTORY: Sepsis COMPARISON STUDY: 02/21/2025 FINDINGS: Stable cardiomegaly with mild pulmonary vascular congestion. Inspiration is shallow which limits the exam. There is increased hazy opacity at the left base with partial obscuration of the left hemidiaphragm. No pneumothorax. IMPRESSION: 1. CHF. 2. Increased hazy opacity at the left lung base could represent atelectasis, pneumonia, or small pleural effusion. ACT 112: Negative or not required by law. Electronically signed by: Morgan Delaney M.D. 03/04/2025 1:56 PM Discharge Plan Visit Data Chief Complaint: Illness ED Provider: Ritchie Parker Discharge Problem: Respiratory failure, Sepsis, Collapse, lung, Multifocal pneumonia Patient Disposition: Admitted As Inpatient Condition: Serious Discharge Instructions Interventions: ED Discharge Assessment Last Done: 03/04/25 20:43 Discharge Problem: Respiratory failure Qualifiers: Chronicity: acute on chronic Respiratory failure complication: hypoxia and hypercapnia Qualified Code(s): J96.21 - Acute and chronic respiratory failure with hypoxia; J96.22 - Acute and chronic respiratory failure with hypercapnia
[2025-03-04] MEDS ORDERED: VANCOMYCIN CONSULT ACTIVE PRN (13:48)
[2025-03-04] MEDS: ALBUT/IPRATROP 3MG/0.5MG NEB 3 ML VIAL NEB STA (13:49)
--- NOTE | 2025-03-04 13:57 | XRay Report ---
XR chest 1V portable CLINICAL HISTORY: Sepsis COMPARISON STUDY: 02/21/2025 FINDINGS: Stable cardiomegaly with mild pulmonary vascular congestion. Inspiration is shallow which l imits the exam. There is increased hazy opacity at the left base with partial obscuration of the left hemidiaphragm. No pneumothorax. IMPRESSION: 1. CHF. 2. Increased hazy opacity at the left lung base could represent atelectasis, pneumonia, or small pleu ral effusion. ACT 112: Negative or not required by law. Electronically signed by: Morgan Delaney M.D. 03/04/2025 1:56 PM
[2025-03-04] MEDS: CEFEPIME 2000MG 2,000 MG/20 ML SYR IV STA (14:05)
[2025-03-04 14:12] LABS: Base Excess VBG 7.5 mEq/L; HCO3 VBG 35 mmol/L; Oxygen Saturation VBG < 60.0 %; PCO2 VBG 63 mmHg (38-50); PO2 VBG 24 mmHg; pH VBG 7.35 (7.36-7.41)
[2025-03-04 14:12] LABS: Hematocrit (blood only) 33.4 % (37.0-47.0); Hemoglobin 10.5 g/dl (12.0-16.0); Immature Granulocytes # (auto) 0.07 K/uL (0.01-0.20); Immature Granulocytes % (auto) 0.5 %; Mean Corpuscular Hemoglobin 35.8 pg (25.0-34.0); Mean Corpuscular Volume 114.0 fL (80.0-100.0); Platelet Count 223 K/uL (130-400); RDW Standard Deviation 59.6 fL (36.4-46.3); Red Blood Count 2.93 M/uL (4.20-5.40); White Blood Count 13.69 K/ul (4.8-10.8)
[2025-03-04] MEDS: VANCOMYCIN HCL 1,250 MG in SODIUM CHLORIDE 0.9% 500 ML IV ONE (14:26)
[2025-03-04 14:34] LABS: Alanine Aminotransferase 4.0 U/L (7-52); Alkaline Phosphatase 72.0 U/L (34-104); Anion Gap 6.0 (3-11); Bilirubin,Total 0.5 mg/dl (0.2-1.0); Blood Urea Nitrogen 15.0 mg/dl (6-23); Calcium 9.0 mg/dl (8.6-10.3); Carbon Dioxide 34.0 mmol/L (21-32); Chloride 99.0 mmol/L (98-107); Creatinine Clr Calc Pharmacy 23.1 ml/min; Glucose 115.0 mg/dl (70-99(Fasting)); Magnesium 1.9 mg/dl (1.7-2.4); Potassium 4.5 mmol/L (3.5-5.1); Sodium 139.0 mmol/L (136-145); Total Protein 6.4 gm/dl (6.0-8.3)
[2025-03-04 14:36] LABS: Macrocytosis Present
[2025-03-04 14:39] LABS: INR 1.0 (0.9-1.1); Partial Thromboplastin Time 29 Seconds (21-31); Prothrombin Time 10.7 Seconds (9.0-12.0)
[2025-03-04] MEDS: ALBUTEROL 0.083% NEBU SOLN 3 ML VIAL NEB STA (14:42)
[2025-03-04 15:03] LABS: Chlamydia pneumoniae PCR Not Detected (NotDetected); Coronavirus 229E PCR Not Detected (NotDetected); Coronavirus CoV-2 (COVID19)PCR Not Detected (NotDetected); Coronavirus HKU1 PCR Not Detected (NotDetected); Coronavirus NL63 PCR Not Detected (NotDetected); Coronavirus OC43PCR Not Detected (NotDetected); Human Metapneumovirus PCR Not Detected (NotDetected); Parainfluenza Virus 1 PCR Not Detected (NotDetected); Parainfluenza Virus 2 PCR Not Detected (NotDetected); Parainfluenza Virus 3 PCR Not Detected (NotDetected); Parainfluenza Virus 4 PCR Not Detected (NotDetected); Respiratory Syncytial VirusPCR Not Detected (NotDetected); Rhinovirus/Enterovirus PCR Not Detected (NotDetected)
[2025-03-04] MEDS: OPTIRAY 320 125ml IV ONE (16:27)
[2025-03-04 16:51] LABS: Base Excess VBG 5.2 mEq/L; HCO3 VBG 33 mmol/L; Oxygen Saturation VBG < 60.0 %; PCO2 VBG 61 mmHg (38-50); PO2 VBG 27 mmHg; pH VBG 7.34 (7.36-7.41)
--- NOTE | 2025-03-04 17:00 | CT Scan Report ---
Clinical history: Cough and shortness of breath Technique: Axial computed tomography images were obtained of the chest after the administration of intravenous contrast according to the CT angiogram protocol Comparison is made to the prior CT dated 08/16/2024 Findings: There is no definite sign of pulmonary embolism. There is new complete collapse of the right middle lobe and right upper lobe and there is partial collapse of the left lower lobe. There are worsened mild multifocal interstitial and nodular opacities in the bilateral upper lobes and the left lower lobe that could be due to pneumonia. There is emphysema. There is no right pleural effusion or pneumothorax. There is a small left pleural effusion. There is new occlusion of the bronchus intermedius, the right middle lobe bronchus, the right lower lobe bronchus, and the left lower lobe bronchus. There is no mediastinal, hilar, or axillary adenopathy. The thoracic aorta appears unremarkable with no sign of aneurysm or dissection. There is no pericardial effusion There are multiple bilateral renal cysts and there are bilateral renal calculi. There are multiple unchanged vertebral compression fractures. There is thoracic scoliosis and degenerative disc disease. There are old healed left rib fractures. Impression: 1. No definite sign of pulmonary embolism 2. New complete collapse of the right middle lobe and right lower lobe, and partial collapse of the left lower lobe 3. Small left pleural effusion 4. New complete occlusion of the bronchus intermedius, the right middle lobe bronchus, the right lower lobe bronchus, and the left lower lobe bronchus. This could be due to mucous plugging or infectious debris 5. Increased mild interstitial and nodular opacities that could be due to pneumonia 6. Emphysema 7. Bilateral renal cysts and bilateral renal calculi 8. No definite change in multiple vertebral compression fractures ACT 112: Positive. There are findings on this exam that require communication between the performing entity and the patient following Patient Test Result Information Act ([place] ACT 112) guidelines. Electronically signed by Nabor Jacob 03-04-2025 4:59 PM
--- NOTE | 2025-03-04 17:08 | CT Scan Report ---
Clinical History: Weakness and fatigue Technique: Axial computed tomography images were obtained of the abdomen and pelvis after the administration of intravenous and oral contrast. Comparison is made to the prior CT dated 08/16/2024. Findings: The liver is overall of normal size, attenuation, and contour with no sign of cirrhosis or significant fatty infiltration. No liver mass lesion is seen. The portal vein is patent. Gallstones are present. There is no sign of acute cholecystitis. No bile duct dilatation is noted. The spleen is of normal size. No focal splenic lesion is evident. The pancreas appears normal with no sign of acute or chronic pancreatitis and no mass lesion noted. The pancreatic duct is at the upper limit of normal in size, measuring up to 3 mm. The adrenal glands appear unremarkable. There are bilateral renal calculi, measuring up to 7 mm in size. There is no hydronephrosis or perinephric stranding. No renal mass lesion is identified. There are bilateral renal cysts, measuring up to 3.1 cm. There is bilateral renal cortical scarring The abdominal aorta is of normal caliber. No abdominal adenopathy is seen. There is prominence of the gastric wall that is likely due to the postcholecystectomy state. There is no sign of small bowel obstruction. The colon appears unremarkable. The appendix appears normal also. No free intraperitoneal fluid or air is identified. No distal ureteral or bladder calculi are seen. No bladder mass lesion is evident. The iliac arteries are of normal caliber. No pelvic adenopathy is noted. There are venous varicosities in the groin bilaterally Lumbar degenerative disc disease is seen. There are unchanged compression fractures of the L1, L3, and L5 vertebral bodies. No focal osseous lesion is seen Impression: 1. Cholelithiasis without evidence of acute cholecystitis 2. Bilateral renal cysts 3. Bilateral nonobstructing renal calculi Electronically signed by Nabor Jacob 03-04-2025 5:07 PM
--- NOTE | 2025-03-04 17:21 | History & Physical Report ---
Date of Service March 04, 2025 Assessment & Plan (1) Acute on chronic respiratory failure with hypoxia and hypercapnia: (2) Collapse of lung: (3) Mucus plugging of bronchi: (4) Pneumonia: (5) Interstitial lung disease: (6) Pulmonary hypertension: (7) Parkinson's disease: Plan 79yo female with chronic hypoxic respiratory failure on home continuous O2 2 liters, ILD/PF, previous long-standing tobacco use (nearly 50 years), anemia, parkinsonism, pulmonary hypertension, chronic HFpEF, GERD with history of GI bleed, hypothyroidism, lumbar spinal stenosis, CKD stage IV with baseline CrCl ~20, prediabetes, vitamin D deficiency, and osteoporosis. She was hospitalized at [facility] from 11/07 to 12/02 earlier this year for ESBL ecoli bacteremia 2nd to UTI. Course complicated by acute/chronic CHF. Was discharged to [facility] for rehab and remained there until 01/31. Hospitalized at [facility] from 02/18 to 02/25 for LLL pneumonia and received a full 7-day course of IV/PO antibiotic therapy. Video swallow exam during that admission did not show aspiration. After discharge from [facility] on 02/25 she reports feeling "ok" for about 2 days, but then her cough, chest congestion, wheezing, dyspnea, and dyspnea on exertion all worsened. Symptoms progressed the last several days and she developed worsening respiratory distress on day of presentation prompting ER evaluation. #b/l pneumonia with RML collapse, RLL collapse, and LLL collapse from mucous plugging - -during recent hospital stay was treated with cefepime/doxy x 5 days, then finished her course with PO levaquin -she does have h/o ESBL e.coli -although not common she could have a resistant pathogen in the lungs including ESBL e.coli -not unreasonable given her presentation & CT findings to cover for resistant pathogens with meropenem -MRSA swab checked -- negative, defer on additional MRSA coverage -defer on atypical coverage -for RML/RLL/LLL collapse - -vibration vest BID -saline nebs BID -mucomyst nebs TID -duonebs QID -robitussin QID -frequent turning/positioning, try to have right chest/right side of body UP; avoid prolonged laying on back -upright as much as possible in chair as tolerated -consider cough assist device -if any worsening or persistence in collapse only other option with be therapeutic bronchoscopy but poor candidate for such -recheck CXR in am -consider formal pulmonary consult -suspect inability to expectorate sputum is from chest wall weakness from deconditioning, her Parkinson's, etc #ILD - -although she has emphysematous changes on CT chest she had no obstruction on PFTs in 06/2024 -consider steroids for bronchoconstriction -cont Incruse Ellipta 1 puff daily -cont budesonide nebs BID -saline nebs BID, mucomyst nebs TID -duonebs -although BNP is mildly elevated she does not examine volume overloaded #chronic hypoxic respiratory failure on home O2 - -3 liters continuously at home -chronic hypoxic resp failure 2nd to ILD, pulmonary HTN, etc. #chronic HFpEF - -I do not think she is decompensated at this time -during prior admission attempts at diuresis led to mild LINDSEY -defer on diuretics this evening #hypothyroidism - -TSH wnl early January 2025 -cont levothyroxine #chronic DVT - as seen on b/l LE dopplers 10/2024 - -cont Eliquis 2.5mg BID #parkinsonism - -cont sinemet 2 tabs TID -will need PT/OT while here #chronic right eye disease - -cont prednisolone drops HS #chronic CKD stage 3 - -creatinine stable -BMP in am #DVT proph - -Eliquis 2.5mg BID I updated pt's daughter Almita Fountain by phone at time of admission History of Present Illness Chief Complaint: worsening shortness of breath Primary Care Provider: Katarina Peters DO 79yo female with chronic hypoxic respiratory failure on home continuous O2 2 liters, ILD/PF, previous long-standing tobacco use (nearly 50 years), anemia, parkinsonism, pulmonary hypertension, chronic HFpEF, GERD with history of GI bleed, hypothyroidism, lumbar spinal stenosis, CKD stage IV with baseline CrCl ~20, prediabetes, vitamin D deficiency, and osteoporosis. She was hospitalized at [facility] from 11/07 to 12/02 earlier this year for ESBL ecoli bacteremia 2nd to UTI. Course complicated by acute/chronic CHF. Was discharged to [facility] for rehab. She had a lengthy rehab stay at [facility] and was discharged from there on 01/31/25 to her home in [place]. She was treated for b/l pneumonia twice while at [facility] - first with course of levofloxacin, and 2nd with course of augmentin. When she was discharged on 01/31 from [facility] she was finishing a course of augmentin. She was then hospitalized at [facility] from 02/18 to 02/25 for LLL pneumonia and received a full 7-day course of IV/PO antibiotic therapy. Video swallow exam during that admission did not show aspiration. Seen by Dr Daniel Correia from pulmonary - felt not to be a candidate for ILD treatments. After discharge from [facility] on 02/25 she reports feeling "ok" for about 2 days, but then her cough, chest congestion, wheezing, dyspnea, and dyspnea on exertion all worsened. Admits to spending much of the day laying on the couch at her home. She has been compliant with all inhalers & neb treatments. Today her symptoms got worse once again and thus EMS was summoned to her home and she was brought to [facility]. When asked about sputum she states she might expectorate sputum about 1x/day, typically in the mornings. Appetite has been fair since recent hospital discharge. Allergies Allergy/AdvReac Type Severity Reaction Status Date / Time azithromycin [From Zithromax] Allergy Intermediate HIVES Verified 03/04/25 15:27 nitrofurantoin Allergy Intermediate HIVES,ITCHI Verified 03/04/25 15:27 NG tramadol AdvReac Mild nausea Verified 03/04/25 15:27 Home Medications Medication Instructions Recorded Confirmed Type albuterol sulfate 90 mcg/actuation 2 inh inhalation DAILY PRN 11/08/23 03/04/25 History aerosol inhaler Shortness Of Breath Or Wheezing fluticasone propionate 50 2 spray intranasal DAILY PRN 11/08/23 03/04/25 History mcg/actuation nasal .allergy symptoms spray,suspension (Flonase Allergy Relief) acetaminophen 325 mg tablet 650 mg (2 x 325 mg) PO Q6 PRN 11/15/23 03/04/25 Rx (Tylenol) fever or pain #60 tabs famotidine 20 mg tablet 20 mg PO DAILY #90 tabs 12/25/23 03/04/25 Rx folic acid 1 mg tablet 1 mg PO QAM #90 tabs 12/25/23 03/04/25 Rx valacyclovir 500 mg tablet 500 mg PO DAILY 03/19/24 03/04/25 History magnesium 200 mg tablet 200 mg PO DAILY 09/24/24 03/04/25 History carbidopa 10 mg-levodopa 100 mg 2 tab PO TIDM 11/17/24 03/04/25 History tablet cyanocobalamin (vitamin B-12) 1,000 mcg PO QAM 11/17/24 03/04/25 History 1,000 mcg tablet (Vitamin B-12) levothyroxine 88 mcg tablet 88 mcg PO DAILYBB 11/17/24 03/04/25 History prednisolone acetate 1 % eye 1 drp OPR QAM 11/17/24 03/04/25 History drops,suspension apixaban 2.5 mg tablet (Eliquis) 2.5 mg PO BID #180 tabs 11/18/24 03/04/25 Rx ipratropium 0.5 mg-albuterol 3 mg 3 ml inhalation QID PRN dyspnea 02/18/25 03/04/25 History (2.5 mg base)/3 mL nebulization soln azelastine 137 mcg (0.1 %) nasal 1 spray NA BID #30 mL 02/24/25 03/04/25 Rx spray budesonide 0.25 mg/2 mL suspension 0.25 mg (2 mL) NEB BIDR #120 mL 02/24/25 03/04/25 Rx for nebulization formoterol fumarate 20 mcg/2 mL 20 mcg (2 mL) NEB BIDR #120 mL 02/24/25 03/04/25 Rx solution for nebulization (Perforomist) umeclidinium 62.5 mcg/actuation 1 inh inhalation DAILY #30 ea 02/24/25 03/04/25 Rx blister powder for inhalation (Incruse Ellipta) thiamine HCl (vitamin B1) 100 mg 200 mg (2 x 100 mg) PO QAM #90 tabs 03/02/25 03/04/25 Rx tablet atorvastatin 80 mg tablet 80 mg PO HS #30 tabs 03/03/25 03/04/25 Rx diclofenac sodium 1 % topical gel 4 g topical QID PRN KNEE PAIN 03/04/25 03/04/25 History furosemide 40 mg tablet 40 mg PO DAILY 03/04/25 03/04/25 History polyethylene glycol 3350 17 17 g PO DAILY 03/04/25 03/04/25 History gram/dose oral powder (Miralax) Past Med/Surg History Problem List Collapse of lung Mucus plugging of bronchi Acute on chronic respiratory failure with hypoxia and hypercapnia Chronic respiratory failure with hypoxia and hypercapnia Pulmonary nodule Dyspnea (Acute) Bacteremia Acute heart failure Septic shock Acute kidney injury superimposed on stage 3a chronic kidney disease Sepsis (Acute) Acute UTI (Acute) Fullness in right ear Nasal crusting Nasal septal erosion Anemia (Acute) Interstitial lung disease Parkinsonism Pulmonary hypertension Mitral annular calcification Mitral stenosis Hypomagnesemia (Acute) Lumbar spinal stenosis Hypothyroidism History of compression fracture of vertebral column (~12/04/18) Thoracic Pulmonary emphysema CKD (chronic kidney disease), stage IV 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, Mobitz type II Peripheral artery disease Prediabetes Iron deficiency anemia Vitamin D deficiency (Acute) Primary hypercoagulable state (Chronic) Osteoporosis (Chronic) History of follicular lymphoma Sensorineural hearing loss (SNHL) of both ears Ataxia Secondary hyperparathyroidism of renal origin Medical History Parkinson's disease Abnormal chest CT Chronic dyspnea Stage 1 skin ulcer of sacral region Kidney stones Hallucinations Compression fracture of lumbar spine, non-traumatic (~09/23/23) seeing orthopedics Closed T2 fracture (~10/08/23) Parkinsons disease Type 2 diabetes mellitus without complication HTN (hypertension) DVT (deep venous thrombosis) Hyponatremia Megaloblastic anemia Diet-controlled diabetes mellitus History of ischemic stroke Second degree AV block, Mobitz type I Cardiomyopathy Chronic GERD Chronic fatigue syndrome Chronic laryngitis Cigarette smoker motivated to quit 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 Depression Dermatitis, eczematoid Diabetes mellitus (11/29/12) Hearing loss Hoarseness Ischemic colitis Low back pain NSTEMI (non-ST elevated myocardial infarction) Recurrent UTI SNHL (sensorineural hearing loss) Secondary hyperparathyroidism (of renal origin) Solitary pulmonary nodule Subsequent non-ST elevation (NSTEMI) myocardial infarction Vertigo GERD (gastroesophageal reflux disease) Chronic kidney disease Hypothyroidism (acquired) GI bleed Chronic deep vein thrombosis of left lower extremity Hyperlipidemia Thyroid disease Surgical History History of lumbar laminectomy for spinal cord decompression History of tubal ligation History of D&C History of Hx of colonoscopy Family History Mother , age 76 with leukemia Leukemia Hypertension Father , age 86 with heart issues Myocardial infarction Diabetes Other Family history non-contributory Denies family history of Ovarian cancer Prostate cancer Breast cancer Lung cancer Social History Smoking Status: Former smoker Tobacco Type: Cigarettes Age Started Using Tobacco: 17; Age Quit Using Tobacco: 73; packs per day: 1; Second Hand Exposure: No; Do You Dip or Chew Tobacco: No; Hx Alcohol Use: No Hx Substance Use: No Preferred Language: Welsh Communication Ability: Effective Visual Impairment: No Limitations Hearing Ability: Use of Hearing Aid Literacy Consultant Required: No Beliefs That Will Affect Care: None marital status: Current Living Situation: Alone Current Living Situation Comment: home alone, recently at [facility] current occupational status: retired 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 How many Children do You have: 3 How many Children do You have Comment: 1 daughter is Feels Safe at Home: Yes Safety Concerns: Feels Safe At This Time Childhood Exposure to Second-Hand Smoke: Yes Diet: regular caffeine: No Dental Care, Regularly: No Physical Activity Frequency: Does not Exercise Seatbelt Use: always Sunscreen Use: No Do you think of yourself as: straight/heterosexual Gender Identity: Female Assistive Devices: Denture - Upper, Denture - Lower, Glasses, Hearing Aid - Bilateral and Oxygen - Continuous Review of Systems Review of Systems: gen - no fevers or chills; +weight loss - 20+ pounds over the last year; appetite fair eyes - chronic right eye visual loss HENT - no dysphagia, no URI symptoms CV - no chest pain, no edema, no pleuritic pain pulm - cough, congestion, minimal sputum, wheezing, dyspnea, MORGAN GI - no nausea, emesis, abd pain, diarrhea or blood per rectum - no dysuria musculo - no myalgias or arthralgias endo - denies diabetes skin - no rash neuro - no focal motor weakness; just generalized weakness Physical Exam Physical Exam: gen - thin, +tremors from Parkinson's, respiratory distress with tachypnea and mild retractions, looks ill eyes - PERRL HENT - mouth - MM dry, no thrush or lesions neck - no JVD; no lymph nodes; no goiter heart - tachy, s1 s2, no murmur lungs - diffuse wheezes b/l with decreased BS b/l, much worse on right; mild rales anterior chest; minimal rales L base; +Tachypnea; +retractions abd - soft NT ND BS+ ext - no edema, pulses b/l feet 2+ neuro - strength 5/5 x 4 exts, DTRs 1+ b/l, tremors b/l arms skin - no rash psych - a/o x 3 Results & Data Results & Data Vital Signs (Past 12 Hours) Vital Signs Pulse Pulse Resp BP BP Pulse Ox O2 Del Method 03/04/25 16:41 110 H 28 H 106/54 L 92 Nasal Cannula 03/04/25 15:59 102 H 20 152/64 H 100 Room Air 03/04/25 15:30 98 H 34 H 147/70 H 99 03/04/25 15:15 93 H 32 H 141/68 H 99 03/04/25 14:45 89 24 92 Nasal Cannula 03/04/25 14:18 94 H 18 148/68 H 94 03/04/25 14:05 93 H 22 96 03/04/25 13:37 94 H 03/04/25 13:04 87 28 H 135/79 93 Nasal Cannula O2 Flow Rate 03/04/25 16:41 3 03/04/25 15:59 03/04/25 15:30 03/04/25 15:15 03/04/25 14:45 3 03/04/25 14:18 03/04/25 14:05 3 03/04/25 13:37 03/04/25 13:04 3 Laboratory Results Laboratory Results - last 24 hr 03/04/25 03/04/25 03/04/25 13:43 13:54 14:03 WBC 13.69 H RBC 2.93 L Hgb 10.5 L Hct 33.4 L MCV 114.0 H MCH 35.8 H MCHC 31.4 L RDW Std Deviation 59.6 H RDW Coeff of Damien 14.2 Plt Count 223 MPV 11.0 Immature Gran % (Auto) 0.5 Neut % (Auto) 83.3 Lymph % (Auto) 9.6 [place] % (Auto) 5.6 Eos % (Auto) 0.7 Baso % (Auto) 0.3 Neut # (Auto) 11.41 H Lymph # (Auto) 1.32 [place] # (Auto) 0.76 H Eos # (Auto) 0.09 Baso # (Auto) 0.04 Immature Gran # (Auto) 0.07 Macrocytosis Present PT 10.7 INR 1.0 APTT 29 PTT Ratio 1.1 VBG pH 7.35 L VBG pCO2 63 H VBG pO2 24 VBG HCO3 35 VBG O2 Saturation < 60.0 VBG Base Excess 7.5 Sodium 139 Potassium 4.5 Chloride 99 Carbon Dioxide 34 H Anion Gap 6 BUN 15 Creatinine 1.19 Est Cr Clr Drug Dosing 23.1 eGFR 45.94 BUN/Creatinine Ratio 12.6 Glucose 115 H Lactate 1.0 Calcium 9.0 Magnesium 1.9 Total Bilirubin 0.5 Direct Bilirubin 0.1 AST 18 ALT 4 L Alkaline Phosphatase 72 Troponin I High Sens 12.7 B-Natriuretic Peptide 286 H Total Protein 6.4 Albumin 3.5 Procalcitonin 0.19 Urine Color Urine Appearance Urine pH Ur Specific [place] Urine Protein Urine Glucose (UA) Urine Ketones Urine Blood Urine Nitrite Urine Bilirubin Urine Urobilinogen Ur Leukocyte Esterase Urine WBC (Auto) Urine RBC (Auto) U Hyaline Cast (Auto) U Epithel Cells (Auto) Urine Bacteria (Auto) Urine Comment Nasal Screen MRSA (PCR) Negative Adenovirus (PCR) Not Detected B. pertussis DNA (PCR) Not Detected B.parapertussis DNA PCR Not Detected C. pneumoniae DNA (PCR) Not Detected Coronavirus OC43 (PCR) Not Detected Coronavirus HKU1 (PCR) Not Detected Coronavirus 229E (PCR) Not Detected SARS-CoV-2 (PCR) Not Detected Coronavirus NL63 (PCR) Not Detected Human Metapneumovir PCR Not Detected Influenza Type A (PCR) Not Detected Influenza Type B (PCR) Not Detected M. pneumoniae (PCR) Not Detected Parainfluenza 1 (PCR) Not Detected Parainfluenza 2 (PCR) Not Detected Parainfluenza 3 (PCR) Not Detected Parainfluenza 4 (PCR) Not Detected RSV (PCR) Not Detected Entero/Rhino (PCR) Not Detected 03/04/25 03/04/25 03/04/25 16:41 17:18 18:47 WBC RBC Hgb Hct MCV MCH MCHC RDW Std Deviation RDW Coeff of Damien Plt Count MPV Immature Gran % (Auto) Neut % (Auto) Lymph % (Auto) [place] % (Auto) Eos % (Auto) Baso % (Auto) Neut # (Auto) Lymph # (Auto) [place] # (Auto) Eos # (Auto) Baso # (Auto) Immature Gran # (Auto) Macrocytosis PT INR APTT PTT Ratio VBG pH 7.34 L VBG pCO2 61 H VBG pO2 27 VBG HCO3 33 VBG O2 Saturation < 60.0 VBG Base Excess 5.2 Sodium Potassium Chloride Carbon Dioxide Anion Gap BUN Creatinine Est Cr Clr Drug Dosing eGFR BUN/Creatinine Ratio Glucose Lactate Calcium Magnesium Total Bilirubin Direct Bilirubin AST ALT Alkaline Phosphatase Troponin I High Sens B-Natriuretic Peptide Total Protein Albumin Procalcitonin Urine Color Yellow Urine Appearance Clear Urine pH 8.0 H Ur Specific [place] 1.041 H Urine Protein Trace H Urine Glucose (UA) Negative Urine Ketones Negative Urine Blood Negative Urine Nitrite Negative Urine Bilirubin Negative Urine Urobilinogen Negative Ur Leukocyte Esterase Negative Urine WBC (Auto) 0-5 Urine RBC (Auto) 0-2 U Hyaline Cast (Auto) 0-2 U Epithel Cells (Auto) 0-2 Urine Bacteria (Auto) None Seen Urine Comment Nasal Screen MRSA (PCR) Negative Adenovirus (PCR) B. pertussis DNA (PCR) B.parapertussis DNA PCR C. pneumoniae DNA (PCR) Coronavirus OC43 (PCR) Coronavirus HKU1 (PCR) Coronavirus 229E (PCR) SARS-CoV-2 (PCR) Coronavirus NL63 (PCR) Human Metapneumovir PCR Influenza Type A (PCR) Influenza Type B (PCR) M. pneumoniae (PCR) Parainfluenza 1 (PCR) Parainfluenza 2 (PCR) Parainfluenza 3 (PCR) Parainfluenza 4 (PCR) RSV (PCR) Entero/Rhino (PCR) Diagnostic Findings Chest X-Ray 03/04/25 13:27 XR chest 1V portable CLINICAL HISTORY: Sepsis COMPARISON STUDY: 02/21/2025 FINDINGS: Stable cardiomegaly with mild pulmonary vascular congestion. Inspiration is shallow which limits the exam. There is increased hazy opacity at the left base with partial obscuration of the left hemidiaphragm. No pneumothorax. IMPRESSION: 1. CHF. 2. Increased hazy opacity at the left lung base could represent atelectasis, pneumonia, or small pleural effusion. ACT 112: Negative or not required by law. Electronically signed by: Morgan Delaney M.D. 03/04/2025 1:56 PM Abdomen/Pelvis CT 03/04/25 13:48 Clinical History: Weakness and fatigue Technique: Axial computed tomography images were obtained of the abdomen and pelvis after the administration of intravenous and oral contrast. Comparison is made to the prior CT dated 08/16/2024. Findings: The liver is overall of normal size, attenuation, and contour with no sign of cirrhosis or significant fatty infiltration. No liver mass lesion is seen. The portal vein is patent. Gallstones are present. There is no sign of acute cholecystitis. No bile duct dilatation is noted. The spleen is of normal size. No focal splenic lesion is evident. The pancreas appears normal with no sign of acute or chronic pancreatitis and no mass lesion noted. The pancreatic duct is at the upper limit of normal in size, measuring up to 3 mm. The adrenal glands appear unremarkable. There are bilateral renal calculi, measuring up to 7 mm in size. There is no hydronephrosis or perinephric stranding. No renal mass lesion is identified. There are bilateral renal cysts, measuring up to 3.1 cm. There is bilateral renal cortical scarring The abdominal aorta is of normal caliber. No abdominal adenopathy is seen. There is prominence of the gastric wall that is likely due to the postcholecystectomy state. There is no sign of small bowel obstruction. The colon appears unremarkable. The appendix appears normal also. No free intraperitoneal fluid or air is identified. No distal ureteral or bladder calculi are seen. No bladder mass lesion is evident. The iliac arteries are of normal caliber. No pelvic adenopathy is noted. There are venous varicosities in the groin bilaterally Lumbar degenerative disc disease is seen. There are unchanged compression fractures of the L1, L3, and L5 vertebral bodies. No focal osseous lesion is seen Impression: 1. Cholelithiasis without evidence of acute cholecystitis 2. Bilateral renal cysts 3. Bilateral nonobstructing renal calculi Electronically signed by Nabor Jacob 03-04-2025 5:07 PM Chest CTA 03/04/25 13:48 Clinical history: Cough and shortness of breath Technique: Axial computed tomography images were obtained of the chest after the administration of intravenous contrast according to the CT angiogram protocol Comparison is made to the prior CT dated 08/16/2024 Findings: There is no definite sign of pulmonary embolism. There is new complete collapse of the right middle lobe and right upper lobe and there is partial collapse of the left lower lobe. There are worsened mild multifocal interstitial and nodular opacities in the bilateral upper lobes and the left lower lobe that could be due to pneumonia. There is emphysema. There is no right pleural effusion or pneumothorax. There is a small left pleural effusion. There is new occlusion of the bronchus intermedius, the right middle lobe bronchus, the right lower lobe bronchus, and the left lower lobe bronchus. There is no mediastinal, hilar, or axillary adenopathy. The thoracic aorta appears unremarkable with no sign of aneurysm or dissection. There is no pericardial effusion There are multiple bilateral renal cysts and there are bilateral renal calculi. There are multiple unchanged vertebral compression fractures. There is thoracic scoliosis and degenerative disc disease. There are old healed left rib fractures. Impression: 1. No definite sign of pulmonary embolism 2. New complete collapse of the right middle lobe and right lower lobe, and partial collapse of the left lower lobe 3. Small left pleural effusion 4. New complete occlusion of the bronchus intermedius, the right middle lobe bronchus, the right lower lobe bronchus, and the left lower lobe bronchus. This could be due to mucous plugging or infectious debris 5. Increased mild interstitial and nodular opacities that could be due to pneumonia 6. Emphysema 7. Bilateral renal cysts and bilateral renal calculi 8. No definite change in multiple vertebral compression fractures ACT 112: Positive. There are findings on this exam that require communication between the performing entity and the patient following Patient Test Result Information Act ([place] ACT 112) guidelines. Electronically signed by Nabor Jacob 03-04-2025 4:59 PM ECG Additional Comments: my reading - NSR, left axis deviation, no ST changes PG Care Time/CCT Total # of Minutes Spent Total Time Spent with Patient: Total time spent is greater than 50% in coordination of care (as documented) at patient's floor/unit and/or counseling patient: Coding Level of Care Code 82616 INT INP/OBS CARE 3/75MIN Diagnoses Acute on chronic respiratory failure with hypoxia and hypercapnia J96.21; J96.22 Collapse of lung J98.19 Mucus plugging of bronchi T17.500A Pneumonia J18.9 Interstitial lung disease J84.9 Pulmonary hypertension I27.20 Parkinson's disease G20.A1
[2025-03-04 17:38] LABS: Appearance Urine Clear (Clear); Bacteria Urine Automated None Seen (None Seen); Cast Urine Automated 0-2 /lpf (0-2); Epithelial Cell Urine Auto 0-2 /hpf (0-2); Glucose Urine UA Negative (Negative); RBC Urine Automated 0-2 /hpf (0-2); WBC Urine Automated 0-5 /hpf (0-5)
[2025-03-04] MEDS ORDERED: ONDANSETRON INJ 2 MG/ML 2 ML VIAL IV PRN (21:49)
[2025-03-04] MEDS ORDERED: ALBUTEROL HFA 8 GM INHALER INH PRN (21:49)
[2025-03-04] MEDS ORDERED: FLUTICASONE PROPIONATE NA SPR 16 GM BTL PRN (21:49)
[2025-03-04] MEDS: ACETYLCYSTEINE 20% INHAL SOLN 4ML ***DISPENSED BY RESP. INH SCH (22:19)
[2025-03-04] MEDS: SODIUM CHLOR 7% 4 ML NEB NEB SCH (22:19)
[2025-03-04] MEDS: ALBUT/IPRATROP 3MG/0.5MG NEB 3 ML VIAL NEB SCH (22:20)
[2025-03-04] MEDS: BUDESONIDE 0.25 MG/2 ML VIAL (PULMICORT) NEB SCH (22:20)
[2025-03-04] MEDS: MEROPENEM 500 MG in SYRINGE 0 ML IV SCH (22:48)
[2025-03-04] MEDS: AZELASTINE HCL 0.1% NASAL 200 SPRAYS/27,400 MCG BTL SCH (22:49)
[2025-03-04] MEDS: ATORVASTATIN 40 MG TAB PO SCH (22:50)
[2025-03-05] MEDS: LEVOTHYROXINE SODIUM 88 MCG TABLET PO SCH (06:07)
[2025-03-05 06:58] LABS: Anion Gap 6.0 (3-11); Calcium 8.8 mg/dl (8.6-10.3); Carbon Dioxide 32.0 mmol/L (21-32); Chloride 99.0 mmol/L (98-107); Potassium 4.5 mmol/L (3.5-5.1); Sodium 137.0 mmol/L (136-145)
[2025-03-05 07:04] LABS: Blood Urea Nitrogen 16.0 mg/dl (6-23); Creatinine Clr Calc Pharmacy 22.5 ml/min; Glucose 104.0 mg/dl (70-99(Fasting))
--- NOTE | 2025-03-05 07:46 | XRay Report ---
EXAM: XR chest 1V portable CLINICAL HISTORY: Bilateral lung collapse, pneumonia; interval change. TECHNIQUE: X-ray images of the chest were obtained in one frontal projection. COMPARISON: Prior CT dated 03/04/2025 for comparison. FINDINGS: Pulmonary Parenchyma: There is an unchanged collapse in the bilateral lower zones and haziness in the mid zones. There is unchanged reticular shadowing in the bilateral upper zones, more so on the right. There is unchanged blunting of the bilateral costophrenic angles, likely due to pleural effusion. Heart and Mediastinum: The heart size and shape are normal. There is no mediastinal widening or masses. There is no hilar or mediastinal lymphadenopathy. Bony Thorax: There are spondylotic changes in the thoracic spine. There are degenerative changes in the bilateral shoulder joints. The bony thorax appears intact, without fractures or deformities. Soft Tissues: The soft tissues overlying the chest wall are unremarkable. There is a tube artifact on the left. IMPRESSION: 1. There is an unchanged collapse in the bilateral lower zones and haziness in the mid zones. 2. There is unchanged reticular shadowing in the bilateral upper zones, more so on the right. 3. There is unchanged blunting of the bilateral costophrenic angles, likely due to pleural effusion. 4. No significant interval changes. Electronically signed by Quincy Dent 03-05-2025 07:45 AM
[2025-03-05] MEDS: THIAMINE HCL 100 MG TAB PO SCH (08:41)
[2025-03-05] MEDS: prednisoLONE acetate 1% OP SUSP 5 ML BTL OPR SCH (08:41)
[2025-03-05] MEDS: CARBIDOPA/LEVODOP 10/100MG TAB PO SCH (08:42)
[2025-03-05] MEDS: MAGNESIUM OXIDE 400 MG TAB PO SCH (08:42)
[2025-03-05] MEDS: FOLIC ACID 1 MG TAB PO SCH (08:42)
[2025-03-05] MEDS: CYANOCOBALAMIN (B-12) 500 MCG TABLET PO SCH (08:42)
[2025-03-05] MEDS: POLYETHYLENE (MIRALAX) 17 GM PACK PO SCH (08:43)
[2025-03-05] MEDS: UMECLIDINIUM BROMIDE 62.5MCG/BLISTER 7 PUFFS/INHALER INH SCH (08:43)
[2025-03-05] MEDS: FAMOTIDINE 20 MG TAB PO SCH (08:45)
--- NOTE | 2025-03-05 14:00 | Pulmonary Consultation ---
Date of Consultation March 05, 2025 Assessment & Plan (1) Hospital-acquired bacterial pneumonia: Patient currently on meropenem per hospitalist service for hospital-acquired pneumonia. She has very thick inspissated mucus bilaterally based on CT chest which would be difficult to clear with conservative therapies, but this could be trialed. I did discuss elective bronchoscopy with the patient and the patient's daughter at bedside to help with mucociliary clearance. She is going to consider this and we can pursue bronchoscopy tomorrow in the ICU setting if there is no improvement in her symptoms. She does understand that there are increased risks given her acute illness for bronchoscopy. Risks would include worsening hypoxemia, bradycardia, shock, arrhythmias and possible . Benefits would be to clear airways and help resolve pneumonia faster and potentially obtain cultures to be able to pick more specific antibiotics. (2) Mucus plugging of bronchi: Continue percussive vest therapy 4 times a day. Start hypertonic saline twice a day. Discontinue Mucomyst as this is likely leading to bronchospasm. Will add Pulmozyme twice daily. Will CoughAssist 4 times a day. Continue budesonide nebulized twice daily and formoterol twice daily. N.p.o. after midnight for potential bronc tomorrow if no improvement. (3) Acute hypoxic respiratory failure: Patient chronically on 2 L of oxygen now needing 3 L. Dyspneic on exertion due to pneumonia. (4) Interstitial lung disease: Patient with underlying combined pulmonary fibrosis and emphysema syndrome. I am doubtful of an actual ILD flare and think this is more bacterial pneumonia. Plan I personally spent 60 minutes on the date of service in activities related to this patient's encounter, including 50 minutes of counseling with patient regarding treatment plan and 25 minutes of clinical review of lab results and documentation. I did alcohol and drug counselor the patient regarding their diagnosis and treatment plan and they expressed understanding. This note was dictated using voice recognition software and may include grammatical errors, extra words, word substitutions and other inaccuracies due to errors in the voice recognition software and differences in speech patterns. History of Present Illness Reason for Consultation: Pneumonia Attending Physician: Isidro Huff MD History of Present Illness 79-year-old female with a past medical history of chronic hypoxemic respiratory failure due to emphysema and COPD, mitral stenosis, Parkinson's disease, iron deficiency, Mobitz type II heart block and peripheral artery disease who p resented from [facility] due to recurrent pneumonia. She was just hospitalized recently with pneumonia and there has been concerns of possible aspiration. She had a CT chest this admission which revealed dense consolidations bilaterally with inspissated mucus of the right bronchus intermedius. Patient has been having mostly nonproductive cough, but significant rattling in her chest and feels that she cannot bring up her secretions. She feels very fatigued and short of breath with minimal exertion. She has been evaluated by me in the pulmonary office in the past most recently August 2023 and had previous PFTs which did not reveal obstructive lung disease. She has an extensive smoking history since the age of 13 and quit about 3 to 4 years ago. She had follow-up with our [facility] in the pulmonary clinic and she had an HRCT 04/28/2024 which revealed bibasilar subpleural reticulations with areas of developing honeycombing and early stages of traction bronchiectasis. She also has upper lobe predominant emphysema. She essentially has a UIP pattern with underlying emphysema in the upper lobes predominantly. Allergies Allergy/AdvReac Type Severity Reaction Status Date / Time azithromycin [From Zithromax] Allergy Intermediate HIVES Verified 03/04/25 15:27 nitrofurantoin Allergy Intermediate HIVES,ITCHI Verified 03/04/25 15:27 NG tramadol AdvReac Mild nausea Verified 03/04/25 15:27 Home Medications Medication Instructions Recorded Confirmed Type albuterol sulfate 90 mcg/actuation 2 inh inhalation DAILY PRN 11/08/23 03/04/25 History aerosol inhaler Shortness Of Breath Or Wheezing fluticasone propionate 50 2 spray intranasal DAILY PRN 11/08/23 03/04/25 History mcg/actuation nasal .allergy symptoms spray,suspension (Flonase Allergy Relief) acetaminophen 325 mg tablet 650 mg (2 x 325 mg) PO Q6 PRN 11/15/23 03/04/25 Rx (Tylenol) fever or pain #60 tabs famotidine 20 mg tablet 20 mg PO DAILY #90 tabs 12/25/23 03/04/25 Rx folic acid 1 mg tablet 1 mg PO QAM #90 tabs 12/25/23 03/04/25 Rx valacyclovir 500 mg tablet 500 mg PO DAILY 03/19/24 03/04/25 History magnesium 200 mg tablet 200 mg PO DAILY 09/24/24 03/04/25 History carbidopa 10 mg-levodopa 100 mg 2 tab PO TIDM 11/17/24 03/04/25 History tablet cyanocobalamin (vitamin B-12) 1,000 mcg PO QAM 11/17/24 03/04/25 History 1,000 mcg tablet (Vitamin B-12) levothyroxine 88 mcg tablet 88 mcg PO DAILYBB 11/17/24 03/04/25 History prednisolone acetate 1 % eye 1 drp OPR QAM 11/17/24 03/04/25 History drops,suspension apixaban 2.5 mg tablet (Eliquis) 2.5 mg PO BID #180 tabs 11/18/24 03/04/25 Rx ipratropium 0.5 mg-albuterol 3 mg 3 ml inhalation QID PRN dyspnea 02/18/25 03/04/25 History (2.5 mg base)/3 mL nebulization soln azelastine 137 mcg (0.1 %) nasal 1 spray NA BID #30 mL 02/24/25 03/04/25 Rx spray budesonide 0.25 mg/2 mL suspension 0.25 mg (2 mL) NEB BIDR #120 mL 02/24/25 03/04/25 Rx for nebulization formoterol fumarate 20 mcg/2 mL 20 mcg (2 mL) NEB BIDR #120 mL 02/24/25 03/04/25 Rx solution for nebulization (Perforomist) umeclidinium 62.5 mcg/actuation 1 inh inhalation DAILY #30 ea 02/24/25 03/04/25 Rx blister powder for inhalation (Incruse Ellipta) thiamine HCl (vitamin B1) 100 mg 200 mg (2 x 100 mg) PO QAM #90 tabs 03/02/25 03/04/25 Rx tablet atorvastatin 80 mg tablet 80 mg PO HS #30 tabs 03/03/25 03/04/25 Rx diclofenac sodium 1 % topical gel 4 g topical QID PRN KNEE PAIN 03/04/25 03/04/25 History furosemide 40 mg tablet 40 mg PO DAILY 03/04/25 03/04/25 History polyethylene glycol 3350 17 17 g PO DAILY 03/04/25 03/04/25 History gram/dose oral powder (Miralax) Patient History Medical History Parkinson's disease Abnormal chest CT Chronic dyspnea Stage 1 skin ulcer of sacral region Kidney stones Hallucinations Compression fracture of lumbar spine, non-traumatic (~09/23/23) seeing orthopedics Closed T2 fracture (~10/08/23) Parkinsons disease Type 2 diabetes mellitus without complication HTN (hypertension) DVT (deep venous thrombosis) Hyponatremia Megaloblastic anemia Diet-controlled diabetes mellitus History of ischemic stroke Second degree AV block, Mobitz type I Cardiomyopathy Chronic GERD Chronic fatigue syndrome Chronic laryngitis Cigarette smoker motivated to quit 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 Depression Dermatitis, eczematoid Diabetes mellitus (11/29/12) Hearing loss Hoarseness Ischemic colitis Low back pain NSTEMI (non-ST elevated myocardial infarction) Recurrent UTI SNHL (sensorineural hearing loss) Secondary hyperparathyroidism (of renal origin) Solitary pulmonary nodule Subsequent non-ST elevation (NSTEMI) myocardial infarction Vertigo GERD (gastroesophageal reflux disease) Chronic kidney disease Hypothyroidism (acquired) GI bleed Chronic deep vein thrombosis of left lower extremity Hyperlipidemia Thyroid disease Surgical History History of lumbar laminectomy for spinal cord decompression History of tubal ligation History of D&C History of Hx of colonoscopy Family History Mother , age 76 with leukemia Leukemia Hypertension Father , age 86 with heart issues Myocardial infarction Diabetes Other Family history non-contributory Denies family history of Ovarian cancer Prostate cancer Breast cancer Lung cancer Social History Smoking Status: Former smoker Tobacco Type: Cigarettes Age Started Using Tobacco: 17; Age Quit Using Tobacco: 73; packs per day: 1; Second Hand Exposure: No; Do You Dip or Chew Tobacco: No; Hx Alcohol Use: No Hx Substance Use: No Preferred Language: Ecuadorean Communication Ability: Effective Visual Impairment: No Limitations Hearing Ability: Use of Hearing Aid Olive Brine Tester Required: No Beliefs That Will Affect Care: None marital status: Current Living Situation: Alone Current Living Situation Comment: home alone, recently [facility] current occupational status: retired 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 How many Children do You have: 3 How many Children do You have Comment: 1 daughter is Feels Safe at Home: Yes Safety Concerns: Feels Safe At This Time Childhood Exposure to Second-Hand Smoke: Yes Diet: regular caffeine: No Dental Care, Regularly: No Physical Activity Frequency: Does not Exercise Seatbelt Use: always Sunscreen Use: No Do you think of yourself as: straight/heterosexual Gender Identity: Female Assistive Devices: Denture - Upper, Denture - Lower, Glasses, Hearing Aid - Bilateral and Oxygen - Continuous Review of Systems Review of Systems: All systems reviewed & are unremarkable except as noted in HPI & below Physical Exam Physical Exam: Constitutional: Patient appears to be of their stated age. Patient is kyphoscoliotic. Chronically ill-appearing female. Eyes: Pupils are equal round and reactive to light. Conjunctivae are normal. Anicteric sclera. Ears nose, mouth and throat: Mallampati class 1. Normal posterior oropharynx. Uvula is midline. Neck: Trachea is midline. Visual inspection is normal. Respiratory: Bibasilar coarse rhonchi and crackles at the bases. Tachypneic. Cardiovascular: Regular rate and rhythm. No murmurs. No edema. Gastrointestinal: Normal bowel sounds, soft, nontender and nondistended. No hepatosplenomegaly noted. Musculoskeletal: No cyanosis. Patient is able to move all extremities. Strength is 5 out of 5 in the upper and lower extremities. Skin: No rashes, warm dry and intact. Neurologic: No obvious focal neurological deficits seen. Psychiatric: Alert and oriented x3 with a euthymic affect. Results & Data Results & Data Vital Signs (Past 12 Hours) Vital Signs Temp Pulse Resp BP Pulse Ox O2 Del Method O2 Flow Rate 03/05/25 11:34 26 H 93 Nasal Cannula 3 03/05/25 10:55 36.9 C 95 H 18 102/61 96 Nasal Cannula 3.0 03/05/25 08:01 Nasal Cannula 3 03/05/25 07:31 93 H 18 93 Nasal Cannula 3 03/05/25 07:25 36.3 C L 91 H 19 94/54 L 93 Nasal Cannula 3.0 03/05/25 04:00 36.8 C 95 H 16 108/64 95 Nasal Cannula 3 PG Care Time/CCT Total # of Minutes Spent Total Time Spent with Patient: Total time spent is greater than 50% in coordination of care (as documented) at patient's floor/unit and/or counseling patient: Coding Level of Care Code 36741 INT INP/OBS CARE MIN Diagnoses Hospital-acquired bacterial pneumonia J15.9 Mucus plugging of bronchi T17.500A Acute hypoxic respiratory failure J96.01 Interstitial lung disease J84.9
--- NOTE | 2025-03-05 14:17 | Hospitalist Progress Note ---
Date of Service March 05, 2025 Assessment & Plan (1) Acute on chronic respiratory failure with hypoxia and hypercapnia: (2) Collapse of lung: (3) Mucus plugging of bronchi: (4) Pneumonia: (5) Interstitial lung disease: (6) Pulmonary hypertension: (7) Parkinson's disease: Plan 79yo female with chronic hypoxic respiratory failure on home continuous O2 2 liters, ILD/PF, previous long-standing tobacco use (nearly 50 years), anemia, parkinsonism, pulmonary hypertension, chronic HFpEF, GERD with history of GI bleed, hypothyroidism, lumbar spinal stenosis, CKD stage IV with baseline CrCl ~20, prediabetes, vitamin D deficiency, and osteoporosis. She was hospitalized at [facility] from 11/07 to 12/02 earlier this year for ESBL ecoli bacteremia 2nd to UTI. Course complicated by acute/chronic CHF. Was discharged to [facility] for rehab and remained there until 01/31. Hospitalized at [facility] from 02/18 to 02/25 for LLL pneumonia and received a full 7-day course of IV/PO antibiotic therapy. Video swallow exam during that admission did not show aspiration. After discharge from [facility] on 02/25 she reports feeling "ok" for about 2 days, but then her cough, chest congestion, wheezing, dyspnea, and dyspnea on exertion all worsened. Symptoms progressed the last several days and she developed worsening respiratory distress on day of presentation prompting ER evaluation. #b/l pneumonia with RML collapse, RLL collapse, and LLL collapse from mucous plugging - -during recent hospital stay was treated with cefepime/doxy x 5 days, then finished her course with PO levaquin -she does have h/o ESBL e.coli -although not common she could have a resistant pathogen in the lungs including ESBL e.coli -not unreasonable given her presentation, severity of illness, & CT findings to cover for resistant pathogens with meropenem - day #2 of such -MRSA swab checked -- negative, defer on additional MRSA coverage -defer on atypical coverage -for RML/RLL/LLL collapse - -vibration vest BID -saline nebs BID -duonebs QID -robitussin QID -frequent turning/positioning, try to have right chest/right side of body UP; avoid prolonged laying on back -upright as much as possible in chair as tolerated -consider cough assist device - defer to Dr Cortez -suspect inability to expectorate sputum is from chest wall weakness from deconditioning, her Parkinson's, etc -Dr Cortez from [facility] saw her in consult; discussed bronchoscopy with pt & her daughter - reviewed risks v benefits; this would need to be done in ICU cautiously -to hold off on this today -in meantime, Dr Cortez adding - -dornase BID -add back pulmicort resp BID -add formoterol BID -stop mucomyst -cont all other measures #ILD - -although she has emphysematous changes on CT chest she had no obstruction on PF Ts in 06/2024 -consider steroids for bronchoconstriction -cont budesonide nebs BID -duonebs -although BNP is mildly elevated she does not examine volume overloaded -see above under pneumonia/lung collapse for other recs #chronic hypoxic respiratory failure on home O2 - -3 liters continuously at home -chronic hypoxic resp failure 2nd to ILD, pulmonary HTN, etc. -any worsening --> high-flow NC #chronic HFpEF - -I do not think she is decompensated at this time -during prior admission attempts at diuresis led to mild LINDSEY -defer on diuretics today #hypothyroidism - -TSH wnl early January 2025 -cont levothyroxine #chronic DVT - as seen on b/l LE dopplers 10/2024 - -hold Eliquis 2.5mg BID in the event she needs bronchoscopy #parkinsonism - -cont sinemet 2 tabs TID -will need PT/OT while here #chronic right eye disease - -cont prednisolone drops HS #chronic CKD stage 3 - -creatinine stable -BMP in am #DVT proph - -hold Eliquis 2.5mg BID in the event she needs bronchoscopy pt's daughter Almita Fountain extensively updated at bedside care d/w Dr Cortez from pulmonary care d/w nursing staff Admission and Anticipated Discharge Date Admission Date: March 04, 2025 Subjective tele overnight wnl patient lying in bed states she doesn't feel much different than yesterday, maybe slightly better at most continues to cough - no sputum production tolerating chest vibration vest staff report she is not keen on position changes in bed during the visit the pt's daughter was present at bedside Review of Systems Review of Systems: cv - no chest pain pulm - cough/congestion/wheezing/dyspnea GI - no abd pain or N/V Physical Exam Physical Exam: gen - thin, +tremors from Parkinson's, ongoing tachypnea and mild retractions, looks same as yesterday HENT - mouth - MMM neck - no JVD heart - RRR, s1 s2, no murmur lungs - diffuse wheezes b/l with decreased BS b/l, R>L; mild rales anterior chest; +Tachypnea; +retractions abd - soft NT ND BS+ ext - no edema, pulses b/l feet 2+ neuro - tremors b/l arms and head/neck psych - confused? (she reported not remembering using the vest?) Results & Data Results & Data Vital Signs (Past 12 Hours) Vital Signs Temp Pulse Resp BP Pulse Ox O2 Del Method O2 Flow Rate 03/05/25 11:34 26 H 93 Nasal Cannula 3 03/05/25 10:55 36.9 C 95 H 18 102/61 96 Nasal Cannula 3.0 03/05/25 08:01 Nasal Cannula 3 03/05/25 07:31 93 H 18 93 Nasal Cannula 3 03/05/25 07:25 36.3 C L 91 H 19 94/54 L 93 Nasal Cannula 3.0 03/05/25 04:00 36.8 C 95 H 16 108/64 95 Nasal Cannula 3 Laboratory Results Laboratory Results - last 24 hr 03/05/25 06:05 Sodium 137 Potassium 4.5 Chloride 99 Carbon Dioxide 32 Anion Gap 6 BUN 16 Creatinine 1.23 H Est Cr Clr Drug Dosing 22.5 eGFR 44.15 BUN/Creatinine Ratio 13.0 Glucose 104 H Calcium 8.8 Diagnostic Findings Chest X-Ray 03/05/25 06:31 EXAM: XR chest 1V portable CLINICAL HISTORY: Bilateral lung collapse, pneumonia; interval change. TECHNIQUE: X-ray images of the chest were obtained in one frontal projection. COMPARISON: Prior CT dated 03/04/2025 for comparison. FINDINGS: Pulmonary Parenchyma: There is an unchanged collapse in the bilateral lower zones and haziness in the mid zones. There is unchanged reticular shadowing in the bilateral upper zones, more so on the right. There is unchanged blunting of the bilateral costophrenic angles, likely due to pleural effusion. Heart and Mediastinum: The heart size and shape are normal. There is no mediastinal widening or masses. There is no hilar or mediastinal lymphadenopathy. Bony Thorax: There are spondylotic changes in the thoracic spine. There are degenerative changes in the bilateral shoulder joints. The bony thorax appears intact, without fractures or deformities. Soft Tissues: The soft tissues overlying the chest wall are unremarkable. There is a tube artifact on the left. IMPRESSION: 1. There is an unchanged collapse in the bilateral lower zones and haziness in the mid zones. 2. There is unchanged reticular shadowing in the bilateral upper zones, more so on the right. 3. There is unchanged blunting of the bilateral costophrenic angles, likely due to pleural effusion. 4. No significant interval changes. Electronically signed by Quincy Dent 03-05-2025 07:45 AM PG Care Time/CCT Total # of Minutes Spent Total Time Spent with Patient: Total time spent is greater than 50% in coordination of care (as documented) at patient's floor/unit and/or counseling patient: Coding Level of Care Code 04841 SUB INP/OBS CARE 3/50MIN Diagnoses Acute on chronic respiratory failure with hypoxia and hypercapnia J96.21; J96.22 Collapse of lung J98.19 Mucus plugging of bronchi T17.500A Pneumonia J18.9 Interstitial lung disease J84.9 Pulmonary hypertension I27.20 Parkinson's disease G20.A1
[2025-03-05] MEDS: DORNASE ALFA 2.5 ML AMP INH SCH (20:21)
[2025-03-05] MEDS: SODIUM CHLOR 7% 4 ML NEB NEB SCH (20:22)
[2025-03-05] MEDS: FORMOTEROL 20 MCG/2 ML VIAL NEB SCH (20:22)
[2025-03-06] MEDS: ACETAMINOPHEN 325 MG TAB PO PRN (03:05)
--- NOTE | 2025-03-06 06:26 | Electrocardiogram Report ---
Test Reason : Blood Pressure : */* mmHG Vent. Rate : 90 BPM Atrial Rate : 90 BPM P-R Int : 172 ms QRS Dur : 84 ms QT Int : 360 ms P-R-T Axes : 34 -22 42 degrees QTcB Int : 440 ms Normal sinus rhythm Minimal voltage criteria for LVH, may be normal variant ( Constantine product ) Borderline ECG When compared with ECG of 18-Feb-2025 12:56, No significant change was found Confirmed by Suman Trujillo ([id number]) on 03/06/2025 6:26:24 AM Referred By: REFERRED SELF Confirmed By: Suman Trujillo
[2025-03-06 06:54] LABS: Creatinine Clr Calc Pharmacy 19.9 ml/min
--- NOTE | 2025-03-06 11:28 | XRay Report ---
Technique: A frontal view of the chest was obtained Comparison is made to the prior examination dated 03/05/2025 Findings: Again seen is alveolar consolidation in the right lung base. There is also diffuse interstitial prominence that may be due to mild pulmonary edema. The heart size is at the upper limit of normal. No definite pneumothorax is seen. There is a small to moderate right pleural effusion and there is a suspected minimal left pleural effusion There is thoracic and lumbar scoliosis and degenerative disc disease Impression: 1. Unchanged pulmonary opacities that may be due to a combination of pulmonary edema and right lower lobe pneumonia 2. Right larger than left pleural effusions ACT 112: Positive. There are findings on this exam that require communication between the performing entity and the patient following Patient Test Result Information Act ([place] ACT 112) guidelines. Electronically signed by Nabor Jacob 03-06-2025 11:23 AM
--- NOTE | 2025-03-06 12:35 | Pulmonology Progress Note ---
Date of Service March 06, 2025 Assessment & Plan (1) Hospital-acquired bacterial pneumonia: Plan: Patient currently on meropenem per hospitalist service for hospital-acquired pneumonia. She has very thick inspissated mucus bilaterally based on CT chest which would be difficult to clear with conservative therapies, but this could be trialed. Continue Pulmozyme twice daily. CoughAssist, percussive vest therapy and hypertonic saline. Patient's daughter is reluctant for the patient undergo bronchoscopy at this time. Will keep her n.p.o. over midnight for potential bronchoscopy tomorrow if no improvement. Will hold off on bronchoscopy today. Respiratory status stable. Continue broad-spectrum antibiotics. (2) Mucus plugging of bronchi: Plan: Continue percussive vest therapy 4 times a day. Continue hypertonic saline twice a day. Pulmozyme twice daily. Continue CoughAssist 4 times a day. Continue budesonide nebulized twice daily and formoterol twice daily. N.p.o. after midnight for potential bronch tomorrow if no improvement. (3) Acute hypoxic respiratory failure: Plan: Patient chronically on 2 L of oxygen now needing 3 L. Dyspneic on exertion due to pneumonia. (4) Interstitial lung disease: Plan: Patient with underlying combined pulmonary fibrosis and emphysema syndrome. I am doubtful of an actual ILD flare and think this is more bacterial pneumonia. Plan I personally spent 60 minutes on the date of service in activities related to this patient's encounter, including 50 minutes of counseling with patient regarding treatment plan and 25 minutes of clinical review of lab results and documentation. I did insurance counsel the patient regarding their diagnosis and treatment plan and they expressed understanding. This note was dictated using voice recognition software and may include grammatical errors, extra words, word substitutions and other inaccuracies due to errors in the voice recognition software and differences in speech patterns. Admission and Anticipated Discharge Date Admission Date: March 04, 2025 Subjective Patient seen examined. She has been tolerating her respiratory treatments well. No hemoptysis. Minimal sputum production. Symptoms are about the same as yesterday. Continues with a nonproductive cough. No chest pain, fevers or chills. Review of Systems Review of Systems: All systems reviewed & are unremarkable except as noted in HPI & below Physical Exam Physical Exam: Constitutional: Patient appears to be of their stated age. Patient is kyphoscoliotic. Chronically ill-appearing female. Eyes: Pupils are equal round and reactive to light. Conjunctivae are normal. Anicteric sclera. Ears nose, mouth and throat: Mallampati class 1. Normal posterior oropharynx. Uvula is midline. Neck: Trachea is midline. Visual inspection is normal. Respiratory: Bibasilar coarse rhonchi and crackles at the bases. Tachypneic. Cardiovascular: Regular rate and rhythm. No murmurs. No edema. Gastrointestinal: Normal bowel sounds, soft, nontender and nondistended. No hepatosplenomegaly noted. Musculoskeletal: No cyanosis. Patient is able to move all extremities. Strength is 5 out of 5 in the upper and lower extremities. Skin: No rashes, warm dry and intact. Neurologic: No obvious focal neurological deficits seen. Psychiatric: Alert and oriented x3 with a euthymic affect. Results & Data Results & Data Vital Signs (Past 12 Hours) Vital Signs Temp Pulse Resp BP Pulse Ox O2 Del Method O2 Flow Rate 03/06/25 11:53 36.5 C 96 H 18 107/65 98 Nasal Cannula 03/06/25 10:58 83 18 95 Nasal Cannula 3 03/06/25 08:25 Nasal Cannula 3 03/06/25 08:04 36.3 C L 90 16 111/68 92 Nasal Cannula 03/06/25 06:57 83 16 100 Nasal Cannula 3 03/06/25 02:52 36.9 C 91 H 20 99/57 L 95 Nasal Cannula 3 03/06/25 02:21 Nasal Cannula 3 PG Care Time/CCT Total # of Minutes Spent Total Time Spent with Patient: Total time spent is greater than 50% in coordination of care (as documented) at patient's floor/unit and/or counseling patient: Coding Level of Care Code 50640 SUB INP/OBS CARE 3/50MIN Diagnoses Hospital-acquired bacterial pneumonia J15.9 Mucus plugging of bronchi T17.500A Acute hypoxic respiratory failure J96.01 Interstitial lung disease J84.9
--- NOTE | 2025-03-06 21:06 | Hospitalist Progress Note ---
Date of Service March 06, 2025 Assessment & Plan (1) Acute on chronic respiratory failure with hypoxia and hypercapnia: (2) Collapse of lung: (3) Mucus plugging of bronchi: (4) Pneumonia: (5) Interstitial lung disease: (6) Pulmonary hypertension: (7) Parkinson's disease: Plan 79yo female with chronic hypoxic respiratory failure on home continuous O2 3 liters, ILD/PF, previous long-standing tobacco use (at least 50 pack years), anemia, parkinsonism, pulmonary hypertension, chronic HFpEF, GERD with history of GI bleed, hypothyroidism, lumbar spinal stenosis, CKD stage IV with baseline CrCl ~20, prediabetes, vitamin D deficiency, and osteoporosis. She was hospitalized at [facility] from 11/07 to 12/02 earlier this year for ESBL ecoli bacteremia 2nd to UTI. Course complicated by acute/chronic CHF. Was discharged to [facility] for rehab and remained there until 01/31. Hospitalized at [facility] from 02/18 to 02/25 for LLL pneumonia and received a full 7-day course of IV/PO antibiotic therapy. Video swallow exam during that admission did not show aspiration. After discharge from [facility] on 02/25 developed recurrent cough, chest congestion, wheezing, dyspnea, and dyspnea on exertion about 2-3 days post- discharge. No vomiting, no dysphagia - per patient. #b/l pneumonia with RML collapse, RLL collapse, and LLL collapse from mucous plugging - -during recent hospital stay was treated with cefepime/doxy x 5 days, then finished her course with PO levaquin -given her presentation, severity of illness, recent cefepime use, & CT findings --- cover for resistant pathogens with meropenem - day #3 of such -MRSA swab checked -- negative, defer on additional MRSA coverage -defer on atypical coverage -for RML/RLL/LLL collapse continue the following: -vibration vest BID -saline nebs BID -duonebs QID -robitussin QID -cough assist device QID -dornase BID -budesonide BID -formoterol BID -frequent turning/positioning, try to have right chest/right side of body UP; avoid prolonged laying on back - but patient does not tolerate other positions very long -encouraged to use flutter valve but I think she forgets to do so despite encouragement -suspect inability to expectorate sputum is from chest wall weakness from deconditioning, her Parkinson's, etc -Dr Cortez from [facility] saw her in consult; discussed bronchoscopy with pt & her daughter - reviewed risks v benefits; this would need to be done in ICU cautiously -deferred again today -may consider such tomorrow if no change in clinical status #ILD - -although she has emphysematous changes on CT chest she had no obstruction on PFTs in 06/2024 -consider IV steroids for bronchoconstriction but defer that decision to Dr Cortez -although BNP is mildly elevated she does not examine volume overloaded -see above under pneumonia/lung collapse for other recs #acute on chronic hypoxic respiratory failure on home O2 - -3 liters continuously at home -chronic hypoxic resp failure 2nd to ILD, pulmonary HTN, etc. -any worsening --> high-flow NC #chronic HFpEF - -I do not think she is decompensated at this time -during prior admission attempts at diuresis led to mild LINDSEY -defer on diuretics once again today #hypothyroidism - -TSH wnl early January 2025 -cont levothyroxine #chronic DVT - as seen on b/l LE dopplers 10/2024 - -hold Eliquis 2.5mg BID in the event she needs bronchoscopy #parkinsonism - -cont sinemet 2 tabs TID -will need PT/OT while here #chronic right eye disease - -cont prednisolone drops HS #chronic CKD stage 3 - -creatinine stable -BMP in am #DVT proph - -hold Eliquis 2.5mg BID in the event she needs bronchoscopy pt's daughter Almita Fountain extensively updated at bedside yesterday and briefly updated again today Admission and Anticipated Discharge Date Admission Date: March 04, 2025 Subjective tele wnl patient states "breathing is about the same" or perhaps scantly better still no sputum still coughing still wheezing complaints she "hasn't been out of bed", but when offered to get her into the chair, she declined such staff report she resists re-positioning in bed and doesn't like either the cough assist device of chest vibration vest she is not using the flutter that much eating well despite all of the above denies pain in any location Review of Systems Review of Systems: cv - no chest pain pulm - see HPI GI - no N/V ; stool since admission?? Physical Exam Physical Exam: gen - thin, +tremors from Parkinson's, still with mild tachypnea but no retractions today; looks better than previous visits HENT - mouth - MMM neck - no JVD heart - RRR, s1 s2, no murmur lungs - diffuse wheezes b/l with decreased BS b/l, R>L; mild rales anterior and posterior chest; +Tachypnea abd - soft NT ND BS+ ext - no edema, pulses b/l feet 2+ neuro - tremors b/l arms and head/neck psych - confused - oriented to person/place but thought it was Saturday Results & Data Results & Data Vital Signs (Past 12 Hours) Vital Signs Temp Pulse Resp BP Pulse Ox O2 Del Method O2 Flow Rate 03/06/25 20:59 98 H 16 94 Nasal Cannula 2 03/06/25 19:11 36.7 C 98 H 20 120/69 91 Nasal Cannula 3 03/06/25 16:21 36.6 C 102 H 18 106/64 95 Nasal Cannula 3 03/06/25 15:22 83 18 100 Nasal Cannula 3 03/06/25 11:53 36.5 C 96 H 18 107/65 98 Nasal Cannula 3 03/06/25 10:58 83 18 95 Nasal Cannula 3 Laboratory Results Laboratory Results - last 24 hr 03/06/25 05:42 Creatinine 1.42 H Est Cr Clr Drug Dosing 19.9 eGFR 37.16 Diagnostic Findings Chest X-Ray 03/06/25 10:43 Technique: A frontal view of the chest was obtained Comparison is made to the prior examination dated 03/05/2025 Findings: Again seen is alveolar consolidation in the right lung base. There is also diffuse interstitial prominence that may be due to mild pulmonary edema. The heart size is at the upper limit of normal. No definite pneumothorax is seen. There is a small to moderate right pleural effusion and there is a suspected minimal left pleural effusion There is thoracic and lumbar scoliosis and degenerative disc disease Impression: 1. Unchanged pulmonary opacities that may be due to a combination of pulmonary edema and right lower lobe pneumonia 2. Right larger than left pleural effusions ACT 112: Positive. There are findings on this exam that require communication between the performing entity and the patient following Patient Test Result Information Act ([place] ACT 112) guidelines. Electronically signed by Nabor Jacob 03-06-2025 11:23 AM PG Care Time/CCT Total # of Minutes Spent Total Time Spent with Patient: Total time spent is greater than 50% in coordination of care (as documented) at patient's floor/unit and/or counseling patient: Coding Level of Care Code 61495 SUB INP/OBS CARE 2/35MIN Diagnoses Acute on chronic respiratory failure with hypoxia and hypercapnia J96.21; J96.22 Collapse of lung J98.19 Mucus plugging of bronchi T17.500A Pneumonia J18.9 Interstitial lung disease J84.9 Pulmonary hypertension I27.20 Parkinson's disease G20.A1
[2025-03-07 06:30] LABS: Hematocrit (blood only) 28.4 % (37.0-47.0); Hemoglobin 8.8 g/dl (12.0-16.0); Immature Granulocytes # (auto) 0.08 K/uL (0.01-0.20); Immature Granulocytes % (auto) 0.8 %; Mean Corpuscular Hemoglobin 35.5 pg (25.0-34.0); Mean Corpuscular Volume 114.5 fL (80.0-100.0); Platelet Count 214 K/uL (130-400); RDW Standard Deviation 61.4 fL (36.4-46.3); Red Blood Count 2.48 M/uL (4.20-5.40); White Blood Count 10.52 K/ul (4.8-10.8)
[2025-03-07 06:52] LABS: Anion Gap 6.0 (3-11); Blood Urea Nitrogen 29.0 mg/dl (6-23); Calcium 8.6 mg/dl (8.6-10.3); Carbon Dioxide 31.0 mmol/L (21-32); Chloride 100.0 mmol/L (98-107); Creatinine Clr Calc Pharmacy 20.9 ml/min; Glucose 103.0 mg/dl (70-99(Fasting)); Potassium 4.2 mmol/L (3.5-5.1); Sodium 137.0 mmol/L (136-145)
[2025-03-07 06:56] LABS: Macrocytosis Present; Polychromasia 2+
--- NOTE | 2025-03-07 11:46 | XRay Report ---
XR chest 1V portable CLINICAL HISTORY: pna COMPARISON STUDY: 03/06/2025 FINDINGS: Stable cardiomegaly with pulmonary vascular congestion. Stable diffuse pulmonary interstiti al prominence. Stable opacity at the right lung base with obscuration of the right hemidiaphragm. Sta ble mild opacity at the left base. No pneumothorax. IMPRESSION: Stable exam. ACT 112: Negative or not required by law. Electronically signed by: Morgan Delaney M.D. 03/07/2025 11:44 AM
--- NOTE | 2025-03-07 12:38 | Pulmonology Progress Note ---
Date of Service March 07, 2025 Assessment & Plan (1) Hospital-acquired bacterial pneumonia: Plan: Patient currently on meropenem per hospitalist service for hospital-acquired pneumonia. She has very thick inspissated mucus bilaterally based on CT chest which would be difficult to clear with conservative therapies, but this could be trialed. Continue Pulmozyme twice daily. CoughAssist, percussive vest therapy and hypertonic saline. Patient producing more sputum today. Will hold off on bronchoscopy. Continue broad-spectrum antibiotics. (2) Mucus plugging of bronchi: Plan: Continue percussive vest therapy 4 times a day. Continue hypertonic saline twice a day. Pulmozyme twice daily. Continue CoughAssist 4 times a day. Continue budesonide nebulized twice daily and formoterol twice daily. (3) Acute hypoxic respiratory failure: Plan: Patient chronically on 2 L of oxygen now needing 3 L. Dyspneic on exertion due to pneumonia. (4) Interstitial lung disease: Plan: Patient with underlying combined pulmonary fibrosis and emphysema syndrome. I am doubtful of an actual ILD flare and think this is more bacterial pneumonia. Plan I personally spent 60 minutes on the date of service in activities related to this patient's encounter, including 50 minutes of counseling with patient regarding treatment plan and 25 minutes of clinical review of lab results and documentation. I did residential counselor the patient regarding their diagnosis and treatment plan and they expressed understanding. This note was dictated using voice recognition software and may include grammatical errors, extra words, word substitutions and other inaccuracies due to errors in the voice recognition software and differences in speech patterns. Admission and Anticipated Discharge Date Admission Date: March 04, 2025 Subjective Patient producing more sputum today. Dyspnea is about stable compared to yesterday. No chest pain or nausea. No fevers or chills. Review of Systems Review of Systems: All systems reviewed & are unremarkable except as noted in HPI & below Physical Exam Physical Exam: Constitutional: Patient appears to be of their stated age. Patient is kyphoscoliotic. Chronically ill-appearing female. Eyes: Pupils are equal round and reactive to light. Conjunctivae are normal. Anicteric sclera. Ears nose, mouth and throat: Mallampati class 1. Normal posterior oropharynx. Uvula is midline. Neck: Trachea is midline. Visual inspection is normal. Respiratory: Bibasilar coarse rhonchi and crackles at the bases. Tachypneic. Cardiovascular: Regular rate and rhythm. No murmurs. No edema. Gastrointestinal: Normal bowel sounds, soft, nontender and nondistended. No hepatosplenomegaly noted. Musculoskeletal: No cyanosis. Patient is able to move all extremities. Strength is 5 out of 5 in the upper and lower extremities. Skin: No rashes, warm dry and intact. Neurologic: No obvious focal neurological deficits seen. Psychiatric: Alert and oriented x3 with a euthymic affect. Results & Data Results & Data Vital Signs (Past 12 Hours) Vital Signs Temp Pulse Pulse Resp BP Pulse Ox O2 Del Method 03/07/25 11:06 36.5 C 84 18 102/57 L 97 Nasal Cannula 03/07/25 08:10 36.2 C L 93 H 20 116/58 L 99 Nebulizer 03/07/25 07:29 Nasal Cannula 03/07/25 07:13 93 H 15 94 Nasal Cannula 03/07/25 03:58 36.4 C L 91 H 20 115/67 92 Nasal Cannula O2 Flow Rate 03/07/25 11:06 3 03/07/25 08:10 03/07/25 07:29 3 03/07/25 07:13 2 03/07/25 03:58 3 PG Care Time/CCT Total # of Minutes Spent Total Time Spent with Patient: Total time spent is greater than 50% in coordination of care (as documented) at patient's floor/unit and/or counseling patient: Coding Level of Care Code 49765 SUB INP/OBS CARE 2/35MIN Diagnoses Hospital-acquired bacterial pneumonia J15.9 Mucus plugging of bronchi T17.500A Acute hypoxic respiratory failure J96.01 Interstitial lung disease J84.9
[2025-03-07] MEDS: SENNA 8.6 MG TAB PO SCH (12:50)
--- NOTE | 2025-03-07 19:46 | Hospitalist Progress Note ---
Date of Service March 07, 2025 Assessment & Plan (1) Acute on chronic respiratory failure with hypoxia and hypercapnia: (2) Collapse of lung: (3) Mucus plugging of bronchi: (4) Pneumonia: (5) Interstitial lung disease: (6) Pulmonary hypertension: (7) Parkinson's disease: Plan 79yo female with chronic hypoxic respiratory failure on home continuous O2 3 liters, ILD/PF, previous long-standing tobacco use (at least 50 pack years), anemia, parkinsonism, pulmonary hypertension, chronic HFpEF, GERD with history of GI bleed, hypothyroidism, lumbar spinal stenosis, CKD stage IV with baseline CrCl ~20, prediabetes, vitamin D deficiency, and osteoporosis. She was hospitalized at [facility] from 11/07 to 12/02 earlier this year for ESBL ecoli bacteremia 2nd to UTI. Course complicated by acute/chronic CHF. Was discharged to [facility] for rehab and remained there until 01/31. Hospitalized at [facility] from 02/18 to 02/25 for LLL pneumonia and received a full 7-day course of IV/PO antibiotic therapy. Video swallow exam during that admission did not show aspiration. After discharge from [facility] on 02/25 developed recurrent cough, chest congestion, wheezing, dyspnea, and dyspnea on exertion about 2-3 days post- discharge. No vomiting, no dysphagia - per patient. #b/l pneumonia with RML collapse, RLL collapse, and LLL collapse from mucous plugging - -during recent hospital stay was treated with cefepime/doxy x 5 days, then finished her course with PO levaquin -given her presentation, severity of illness, recent cefepime use, & CT findings --- cover for resistant pathogens with meropenem - day #4 of such -MRSA swab checked -- negative, defer on additional MRSA coverage -defer on atypical coverage -sputum culture thus far negative -for RML/RLL/LLL collapse continue the following: -vibration vest BID -saline nebs BID -duonebs QID -robitussin QID -cough assist device QID -dornase BID -budesonide BID -formoterol BID -frequent turning/positioning, avoid prolonged laying on back - but patient does not tolerate other positions very long -encouraged to use flutter valve -suspect inability to expectorate sputum is from chest wall weakness from deconditioning, her Parkinson's, etc -appreciate Dr Cortez's ongoing assistance from pulmonary -bronch has been considered all weekend, but given benefits vs risks as well as clinical improvement --> bronch deferred at this time #ILD - known, chronic - -although she has emphysematous changes on CT chest she had no obstruction on PFTs in 06/2024 -although BNP is mildly elevated she does not examine volume overloaded -see above under pneumonia/lung collapse for other recs #acute on chronic hypoxic respiratory failure on home O2 - -3 liters continuously at home -chronic hypoxic resp failure 2nd to ILD, pulmonary HTN, etc. -any worsening in status --> high-flow NC -fortunately she HAS improved since admission with all of the above #chronic HFpEF - -remains compensated at this time -during prior admission attempts at diuresis led to mild LINDSEY -defer on diuretics once again today #hypothyroidism - -TSH wnl early January 2025 -cont levothyroxine #chronic DVT - as seen on b/l LE dopplers 10/2024 - -holding Eliquis 2.5mg BID in the event she needs bronchoscopy -suspect we can resume tomorrow, 03/08, if bronch is not needed #parkinsonism - -cont sinemet 2 tabs TID -will need PT/OT while here --> ordered #chronic right eye disease - -cont prednisolone drops HS #chronic CKD stage 3 - -creatinine stable -BMP in am #DVT proph - -hold Eliquis 2.5mg BID in the event she needs bronchoscopy pt's daughter Almita Fountain extensively updated at bedside yesterday and briefly updated again today Admission and Anticipated Discharge Date Admission Date: March 04, 2025 Subjective tele overnight wnl producing a little more sputum than previous dyspnea similar or modestly better than yesterday does feel better overall eating well is using the cough assist machine & vibration vest stool since admission ? Review of Systems Review of Systems: CV - denies any chest pain, no edema, no PND pulm - ongoing cough/congestion/wheezing GI - no N/V or pain Physical Exam Physical Exam: gen - thin, +tremors from Parkinson's, best she has looked since admission, bron chial cough at times HENT - mouth - MMM neck - no JVD heart - RRR, s1 s2, no murmur lungs - mild wheezes b/l with decreased BS b/l, right base is the worst; but overall airation IS improved; mild rales b/l; no distress today abd - soft NT ND BS+ ext - no edema, pulses b/l feet 2+; RLE is larger than LLE - chronic neuro - tremors b/l arms and head/neck psych - awake/alert Results & Data Results & Data Vital Signs (Past 12 Hours) Vital Signs Temp Pulse Resp BP Pulse Ox O2 Del Method O2 Flow Rate 03/07/25 19:15 91 H 16 98 Nasal Cannula 2 03/07/25 16:17 36.5 C 86 18 107/56 L 93 Nasal Cannula 2 03/07/25 15:20 84 14 92 Nasal Cannula 2 03/07/25 11:06 36.5 C 84 18 102/57 L 97 Nasal Cannula 3 03/07/25 08:10 36.2 C L 93 H 20 116/58 L 99 Nebulizer Laboratory Results Laboratory Results - last 24 hr 03/07/25 05:40 WBC 10.52 RBC 2.48 L Hgb 8.8 L Hct 28.4 L MCV 114.5 H MCH 35.5 H MCHC 31.0 L RDW Std Deviation 61.4 H RDW Coeff of Damien 14.6 H Plt Count 214 MPV 11.2 Immature Gran % (Auto) 0.8 Neut % (Auto) 81.1 Lymph % (Auto) 9.3 [place] % (Auto) 6.5 Eos % (Auto) 2.1 Baso % (Auto) 0.2 Neut # (Auto) 8.54 H Lymph # (Auto) 0.98 L [place] # (Auto) 0.68 H Eos # (Auto) 0.22 Baso # (Auto) 0.02 Immature Gran # (Auto) 0.08 Polychromasia 2+ Macrocytosis Present Sodium 137 Potassium 4.2 Chloride 100 Carbon Dioxide 31 Anion Gap 6 BUN 29 H Creatinine 1.36 H Est Cr Clr Drug Dosing 20.9 eGFR 39.13 BUN/Creatinine Ratio 21.3 H Glucose 103 H Calcium 8.6 Phosphorus 3.0 Diagnostic Findings Microbiology 03/06/25 20:20 Sputum, Expectorated Gram Stain - Final 03/06/25 20:20 Sputum, Expectorated Sputum Culture - Preliminary Light normal hiram present, final report to follow. 03/04/25 13:54 Blood Aerobic Blood Culture - Preliminary No growth in Aerobic bottle after 48 hours. 03/04/25 13:54 Blood Anaerobic Blood Culture - Preliminary No growth in Anaerobic bottle after 48 hours. 03/04/25 13:54 Blood Aerobic Blood Culture - Preliminary No growth in Aerobic bottle after 48 hours. 03/04/25 13:54 Blood Anaerobic Blood Culture - Final PG Care Time/CCT Total # of Minutes Spent Total Time Spent with Patient: Total time spent is greater than 50% in coordination of care (as documented) at patient's floor/unit and/or counseling patient: Coding Level of Care Code 43045 SUB INP/OBS CARE 2/35MIN Diagnoses Acute on chronic respiratory failure with hypoxia and hypercapnia J96.21; J96.22 Collapse of lung J98.19 Mucus plugging of bronchi T17.500A Pneumonia J18.9 Interstitial lung disease J84.9 Pulmonary hypertension I27.20 Parkinson's disease G20.A1
[2025-03-08 05:39] LABS: Anion Gap 5.0 (3-11); Blood Urea Nitrogen 26.0 mg/dl (6-23); Calcium 8.9 mg/dl (8.6-10.3); Carbon Dioxide 32.0 mmol/L (21-32); Chloride 101.0 mmol/L (98-107); Creatinine Clr Calc Pharmacy 18.0 ml/min; Glucose 96.0 mg/dl (70-99(Fasting)); Potassium 4.2 mmol/L (3.5-5.1); Sodium 138.0 mmol/L (136-145)
--- NOTE | 2025-03-08 11:46 | Pulmonology Progress Note ---
Date of Service March 08, 2025 Assessment & Plan (1) Hospital-acquired bacterial pneumonia: Plan: Patient remains on meropenem for hospital-acquired pneumonia. The patient has inspissated mucus bilaterally as seen on CT imaging. The patient also was very weak leading to difficulty coughing up secretions. The patient has been on Pulmozyme twice daily, CoughAssist, percussive vest therapy and hypertonic saline. Able to produce a bit of sputum with this. She is only on 3 L of oxygen. Will hold off on bronchoscopy for now. Continue aggressive pulmonary toilet. Obtain a sputum sample now that she is able to produce phlegm. (2) Mucus plugging of bronchi: Plan: Continue aggressive pulmonary toilet as above. The patient is very weak and needs to be sitting up in the chair is much as possible throughout the day. Continue nebulized therapy with hypertonic saline nebs, albuterol nebs, Pulmozyme. Continue flutter valve. Continue CPT. Continue incentive spirometer. (3) Acute hypoxic respiratory failure: Plan: Only requiring 3 L of oxygen. Likely secondary to mucus impaction and pneumonia. (4) Interstitial lung disease: Plan: Patient has combined pulmonary fibrosis and for emphysema. Symptoms are not concerning for ILD flare. After reviewing the CT there is extensive mucous plugging and atelectasis in the lower lobes. I believe that her hypoxia and respiratory symptoms can be contributed to this. Continue nebulized treatments with formoterol and Pulmicort. Plan Case was discussed with patient, patient was educated on her diagnosis and treatment plan. Encouraged her to mobilize if possible. Case was discussed in detail with hospitalist service. Thank you for this consultation. I will follow along with you. Admission and Anticipated Discharge Date Admission Date: March 04, 2025 Subjective Patient seen and examined during bedside rounds this morning. Overall she says she is feeling okay. Says that she is tired and wants to sleep more today. She was able to produce some phlegm this morning, thick and yellow in color. Not coughing a lot up still however. Remains on 3 L of oxygen. Is not sure when she was last out of bed. No family at bedside this morning. No fevers or chills overnight. No abdominal pain. No significant swelling. Review of Systems Review of Systems: A 12 point review of systems was obtained in detail. Negative except as noted in HPI. Physical Exam Physical Exam: Physical examination: General: Frail appearing, appears comfortable, resting in bed and not in distress. HEENT: Normocephalic, atraumatic. Extraocular movements intact. Sclera are nonicteric. No JVD appreciated. Skin: Warm and dry. No rashes appreciated. No jaundice appreciated. Cardiovascular: Heart is a regular rate and rhythm, no murmurs appreciated on my exam. No significant lower extremity edema. Lungs: Weak cough is present. On 3 L via nasal cannula. Nontachypneic. Some rhonchi appreciated on the right. No wheezing. Abdomen: Nondistended, nontender to palpation. Musculoskeletal: Normal muscle mass and tone. No gross joint deformity abnormalities. No effusions appreciated. Neurologic: Very weak. Tremors present. Awake and alert, oriented. CN II through XII are grossly intact. Speech is fluent. Nonfocal exam. Psychiatric: Appropriate cooperative during my exam. Results & Data Results & Data Vital Signs (Past 12 Hours) Vital Signs Temp Pulse Resp BP Pulse Ox O2 Del Method O2 Flow Rate 03/08/25 11:08 90 18 93 Nasal Cannula 3 03/08/25 08:00 Nasal Cannula 3 03/08/25 07:57 36.6 C 88 18 124/69 97 Nebulizer 03/08/25 07:27 88 18 91 Nasal Cannula 3 03/08/25 03:15 36.5 C 88 18 105/55 L 99 Nasal Cannula 3.0 PG Care Time/CCT Total # of Minutes Spent Total Time Spent with Patient: Total time spent is greater than 50% in coordination of care (as documented) at patient's floor/unit and/or counseling patient: Coding [place] [address] SUB INP/OBS CARE 2/35MIN Patient Type Established History Detailed Exam Detailed Medical Decision Making Moderate Complexity Diagnoses Hospital-acquired bacterial pneumonia J15.9 Mucus plugging of bronchi T17.500A Acute hypoxic respiratory failure J96.01 Interstitial lung disease J84.9
--- NOTE | 2025-03-08 15:14 | Hospitalist Progress Note ---
Date of Service March 08, 2025 Assessment & Plan (1) Acute on chronic respiratory failure with hypoxia and hypercapnia: (2) Collapse of lung: (3) Mucus plugging of bronchi: (4) Pneumonia: (5) Interstitial lung disease: (6) Pulmonary hypertension: (7) Parkinson's disease: Plan 79yo female with chronic hypoxic respiratory failure on home continuous O2 3 liters, ILD/PF, previous long-standing tobacco use (at least 50 pack years), anemia, parkinsonism, pulmonary hypertension, chronic HFpEF, GERD with history of GI bleed, hypothyroidism, lumbar spinal stenosis, CKD stage IV with baseline CrCl ~20, prediabetes, vitamin D deficiency, and osteoporosis. She was hospitalized at [facility] from 11/07 to 12/02 earlier this year for ESBL ecoli bacteremia 2nd to UTI. Course complicated by acute/chronic CHF. Was discharged to [facility] for rehab and remained there until 01/31. Hospitalized at [facility] from 02/18 to 02/25 for LLL pneumonia and received a full 7-day course of IV/PO antibiotic therapy. Video swallow exam during that admission did not show aspiration. After discharge from [facility] on 02/25 developed recurrent cough, chest congestion, wheezing, dyspnea, and dyspnea on exertion about 2-3 days post- discharge. No vomiting, no dysphagia - per patient. #b/l pneumonia with RML collapse, RLL collapse, and LLL collapse from mucous plugging - overall respiratory status IMPROVING - -during recent hospital stay was treated with cefepime/doxy x 5 days, then finished her course with PO levaquin -given her presentation, severity of illness, recent cefepime use, & CT findings --- cover for resistant pathogens with meropenem - day #5 of such -would plan full 7 days of Rx given how ill she has been -MRSA swab checked -- negative, deferred on additional MRSA coverage -deferred on atypical coverage -sputum culture negative -for RML/RLL/LLL collapse continue the following: -vibration vest BID -saline nebs BID -duonebs QID -robitussin QID -cough assist device QID -dornase BID -budesonide BID -formoterol BID -frequent turning/positioning, avoid prolonged laying on back - but patient does not tolerate other positions very long -flutter valve -suspect inability to expectorate sputum is from chest wall weakness from deconditioning, her Parkinson's, etc -appreciate ongoing assistance from pulmonary -bronch had been considered all weekend, but given benefits vs risks as well as clinical improvement --> bronch deferred at this time #ILD - known, chronic - -although she has emphysematous changes on CT chest she had no obstruction on PFTs in 06/2024 -although BNP is mildly elevated she does not examine volume overloaded -see above under pneumonia/lung collapse for other recs #acute on chronic hypoxic respiratory failure on home O2 - -3 liters continuously at home -chronic hypoxic resp failure 2nd to ILD, pulmonary HTN, etc. -any worsening in status --> high-flow NC -fortunately she HAS improved since admission with all of the above #chronic HFpEF - -remains compensated at this time -during prior admission attempts at diuresis led to mild LINDSEY -lasix on hold #hypothyroidism - -TSH wnl early January 2025 -cont levothyroxine #chronic DVT - as seen on b/l LE dopplers 10/2024 - -holding Eliquis 2.5mg BID in the event she needs bronchoscopy -suspect we can resume tomorrow, 03/09, if bronch is again deferred #parkinsonism - -cont sinemet 2 tabs TID -PT/OT completed - likely needs rehab #chronic right eye disease - -cont prednisolone drops HS #chronic CKD stage 3 - -creatinine stable -BMP in am #DVT proph - -hold Eliquis 2.5mg BID in the event she needs bronchoscopy pt's daughter Almita Fountain extensively updated by phone today, 03/08 Admission and Anticipated Discharge Date Admission Date: March 04, 2025 Subjective tele stable overnight no acute medical issues overnight continues to use the vibration vest & cough assist device she is getting modest amounts of sputum today no dyspnea at rest eating well no c/o pain any location Review of Systems Review of Systems: cv - no chest pain pulm - no dyspnea at rest; wheezing better GI - no n/v Physical Exam Physical Exam: gen - thin, +tremors from Parkinson's, again looks better today HENT - mouth - MMM neck - no JVD heart - RRR, s1 s2, no murmur lungs - minimal wheezes b/l today; airation improved right base today; + fine rales b/l; no distress or increased work of breathing abd - soft NT ND BS+ ext - no edema, pulses b/l feet 2+; RLE is larger than LLE - chronic neuro - tremors b/l arms and head/neck at baseline psych - awake/alert Results & Data Results & Data Vital Signs (Past 12 Hours) Vital Signs Temp Pulse Resp BP Pulse Ox Pulse Ox Pulse Ox 03/08/25 15:07 90 18 94 03/08/25 11:55 36.6 C 84 20 107/64 93 03/08/25 11:08 90 18 93 03/08/25 10:33 75 L 97 03/08/25 08:00 03/08/25 07:57 36.6 C 88 18 124/69 97 03/08/25 07:27 88 18 91 03/08/25 03:15 36.5 C 88 18 105/55 L 99 Pulse Ox Pulse Ox O2 Del Method O2 Flow Rate O2 Flow Rate O2 Flow Rate O2 Flow Rate 03/08/25 15:07 Nasal Cannula 3 03/08/25 11:55 Nasal Cannula 03/08/25 11:08 Nasal Cannula 3 03/08/25 10:33 91 88 L 0 3 3 03/08/25 08:00 Nasal Cannula 3 03/08/25 07:57 Nebulizer 03/08/25 07:27 Nasal Cannula 3 03/08/25 03:15 Nasal Cannula 3.0 O2 Flow Rate 03/08/25 15:07 03/08/25 11:55 03/08/25 11:08 03/08/25 10:33 3 03/08/25 08:00 03/08/25 07:57 03/08/25 07:27 03/08/25 03:15 Laboratory Results Laboratory Results - last 48 hr 03/08/25 04:30 Sodium 138 Potassium 4.2 Chloride 101 Carbon Dioxide 32 Anion Gap 5 BUN 26 H Creatinine 1.58 H Est Cr Clr Drug Dosing 18.0 eGFR 32.69 BUN/Creatinine Ratio 16.5 Glucose 96 Calcium 8.9 Diagnostic Findings Chest X-Ray 03/07/25 11:24 XR chest 1V portable CLINICAL HISTORY: pna COMPARISON STUDY: 03/06/2025 FINDINGS: Stable cardiomegaly with pulmonary vascular congestion. Stable diffuse pulmonary interstitial prominence. Stable opacity at the right lung base with obscuration of the right hemidiaphragm. Stable mild opacity at the left base. No pneumothorax. IMPRESSION: Stable exam. ACT 112: Negative or not required by law. Electronically signed by: Morgan Delaney M.D. 03/07/2025 11:44 AM PG Care Time/CCT Total # of Minutes Spent Total Time Spent with Patient: Total time spent is greater than 50% in coordination of care (as documented) at patient's floor/unit and/or counseling patient: Coding Level of Care Code 90710 SUB INP/OBS CARE 2/35MIN Diagnoses Acute on chronic respiratory failure with hypoxia and hypercapnia J96.21; J96.22 Collapse of lung J98.19 Mucus plugging of bronchi T17.500A Pneumonia J18.9 Interstitial lung disease J84.9 Pulmonary hypertension I27.20 Parkinson's disease G20.A1
[2025-03-09 10:21] LABS: Hematocrit (blood only) 30.9 % (37.0-47.0); Hemoglobin 9.6 g/dl (12.0-16.0); Mean Corpuscular Hemoglobin 36.0 pg (25.0-34.0); Mean Corpuscular Volume 115.7 fL (80.0-100.0); Platelet Count 273 K/uL (130-400); RDW Standard Deviation 61.5 fL (36.4-46.3); Red Blood Count 2.67 M/uL (4.20-5.40); White Blood Count 6.66 K/ul (4.8-10.8)
[2025-03-09 10:36] LABS: Anion Gap 5.0 (3-11); Blood Urea Nitrogen 25.0 mg/dl (6-23); Calcium 9.2 mg/dl (8.6-10.3); Carbon Dioxide 36.0 mmol/L (21-32); Chloride 99.0 mmol/L (98-107); Creatinine Clr Calc Pharmacy 21.3 ml/min; Glucose 170.0 mg/dl (70-99(Fasting)); Magnesium 1.9 mg/dl (1.7-2.4); Potassium 4.2 mmol/L (3.5-5.1); Sodium 140.0 mmol/L (136-145)
--- NOTE | 2025-03-09 10:44 | Pulmonology Progress Note ---
Date of Service March 09, 2025 Assessment & Plan (1) Hospital-acquired bacterial pneumonia: Plan: Patient remains on meropenem for hospital-acquired pneumonia. The patient has inspissated mucus bilaterally as seen on CT imaging. The patient also was very weak leading to difficulty coughing up secretions. The patient has been on Pulmozyme twice daily, CoughAssist, percussive vest therapy and hypertonic saline. She is only on 2 L of oxygen. Will hold off on bronchoscopy for now. Continue aggressive pulmonary toilet. Will obtain x-ray today. (2) Mucus plugging of bronchi: Plan: Continue aggressive pulmonary toilet as above. The patient is very weak and needs to be sitting up in the chair is much as possible throughout the day. Continue nebulized therapy with hypertonic saline nebs, albuterol nebs, Pulmozyme. Continue flutter valve. CoughAssist. Continue CPT. Continue incentive spirometer. The patient has a very weak cough, she is not expectorating most of the time when she does have a cough. Likely too weak to bring up phlegm. Also spends majority of time in bed which will further promote atelectasis. Ideally the CoughAssist will help her with some of this. Additionally she really does need to mobilize. Needs to be out of bed and sitting up in the chair if she is not ambulating. (3) Acute hypoxic respiratory failure: Plan: Only requiring 2 L of oxygen. Likely secondary to mucus impaction and pneumonia. (4) Interstitial lung disease: Plan: Patient has combined pulmonary fibrosis and for emphysema. Symptoms are not concerning for ILD flare. After reviewing the CT there is extensive mucous plugging and atelectasis in the lower lobes. I believe that her hypoxia and respiratory symptoms can be contributed to this. Continue nebulized treatments with formoterol and Pulmicort. Admission and Anticipated Discharge Date Admission Date: March 04, 2025 Subjective Patient examined this morning during rounds. Awake and resting in bed. She says that she got out of bed yesterday and was able to walk to the door. She did get short of breath with this. She says that she is coughing but not producing any phlegm. Still using CoughAssist and vest therapy. She is having a mild cough when I am in the room, I can appreciate that she is bringing up phlegm but she is not able to expectorate it. She denies fevers, chills or night sweats last night. Not have any worsening dyspnea. She is only on 2 L of oxygen and saturating well. Review of Systems Review of Systems: A 12 point review of systems was obtained in detail. Negative except as noted in HPI. Physical Exam Physical Exam: Physical examination: General: Frail appearing, appears comfortable, resting in bed and not in distress. HEENT: Normocephalic, atraumatic. Extraocular movements intact. Sclera are nonicteric. No JVD appreciated. Skin: Warm and dry. No rashes appreciated. No jaundice appreciated. Cardiovascular: Heart is a regular rate and rhythm, no murmurs appreciated on my exam. No significant lower extremity edema. Lungs: Weak cough is present. On 2 L via nasal cannula. Nontachypneic. Coarse rhonchorous breath sounds. A lot of upper airway noises after coughing but not expectorating. No wheezing. Abdomen: Nondistended, nontender to palpation. Musculoskeletal: Normal muscle mass and tone. No gross joint deformity abnormalities. No effusions appreciated. Neurologic: Very weak. Tremors present. Awake and alert, oriented. CN II through XII are grossly intact. Speech is fluent. Nonfocal exam. Psychiatric: Appropriate cooperative during my exam. Results & Data Results & Data Vital Signs (Past 12 Hours) Vital Signs Temp Pulse Resp BP Pulse Ox O2 Del Method O2 Flow Rate 03/09/25 07:45 Nasal Cannula 3 03/09/25 07:14 36.6 C 82 16 127/53 L 100 Nasal Cannula 3 03/09/25 07:07 77 18 98 Nasal Cannula 2 03/09/25 03:43 36.3 C L 83 18 106/62 95 Room Air 03/08/25 23:26 36.7 C 89 18 109/65 98 Nasal Cannula 3 PG Care Time/CCT Total # of Minutes Spent Total Time Spent with Patient: Total time spent is greater than 50% in coordination of care (as documented) at patient's floor/unit and/or counseling patient: Coding [place] [address] SUB INP/OBS CARE 2/35MIN Patient Type Established History Detailed Exam Detailed Medical Decision Making Low Complexity Diagnoses Hospital-acquired bacterial pneumonia J15.9 Mucus plugging of bronchi T17.500A Acute hypoxic respiratory failure J96.01 Interstitial lung disease J84.9
--- NOTE | 2025-03-09 14:24 | Palliative Care Consultation ---
Date of Consultation March 10, 2025 Assessment & Plan (1) Dyspnea on exertion: Pt states her breathing has improved to her baseline. currently on 2L NC (2) Palliative care by specialist: Introduced Palliative Medicine and explained our role in advanced care planning, symptom management and navigation through the progression of life limiting disease. Patient was receptive to palliative services for goals of care discussions. Reviewed we are different from hospice, a home health nurse visiting service. (3) Counseling regarding goals of care: Met with pt at bedside, she was sitting upright, awake and alert. We spent 30 minutes discussing pt values and her GOC. Pt shared that she is a and has adult twin daughters Almita and Ariana. She shared that Ariana lives nearby, but Almita is her primary contact. She shared that she lives alone and has care takers with her through the day and help her get to bed, leaving at midnight and returning to help her get up and around in the morning. Pt shared that she has MORGAN that prevents her from cooking her own meals or bathing without assistance. She shared that she utilizes paid caregivers out of desire to remain living at home rather than a SNF. We discussed at length the patient's acute and chronic medical conditions including HFrEF and ILD, general prognosis, treatment options, and goals of care. Helped patient understand the progressively debilitating nature of both HFrEF and ILD. SHe asked if anything could be done to improve hr lungs at this stage. We discussed lung protective strategies and possible benefits from flutter valve/IS, which she shared she has at home and uses "occasionally". Discussed code status and helped her understand that CPR is only done after a person has and involves uncomfortable and invasive procedures that, if successful. have high risk of multiple complications including but not limited to rib fractures, pneumo/hemothorax, LINDSEY, ventilator dependence, anoxic brain injury, and terminal makeup operator/permanent cognitive and functional deficits. Pt states that she has been discussing this with Almita who told her that she would not want to see her on machines or in pain. Pt states that if her lung disease progresses to the point of requiring intubation she would wish to transition to a comfort based approach and not be dependent on mechanical ventilation. Pt requests DNR/DNI. (4) Physician orders for life-sustaining treatment (POLST) form indicates patient wish for full code resuscitation status: Discussed pt's completed POLST form on chart indicating full code. Pt states th at she has discussed this with her daughter and she now requests DNR/DNI status. Discussed need to complete new POLST form prior to discharge. Plan DNR/DNI, pt will require new POLST form completed to reflect this. History of Present Illness Reason for Consultation: goals of care Requesting Physician: Isidro Huff MD Attending Physician: Isidro Huff MD History of Present Illness 79yo female with chronic hypoxic respiratory failure on home continuous O2 2 liters, ILD/PF, previous long-standing tobacco use (nearly 50 years), anemia, parkinsonism, pulmonary hypertension, chronic HFpEF, GERD with history of GI bleed, hypothyroidism, lumbar spinal stenosis, CKD stage IV with baseline CrCl ~20, prediabetes, vitamin D deficiency, and osteoporosis. She was hospitalized at [facility] from 11/07 to 12/02 earlier this year for ESBL ecoli bacteremia 2nd to UTI. Course complicated by acute/chronic CHF. Was discharged to [facility] for rehab and remained there until 01/31. Hospitalized at [facility] from 02/18 to 02/25 for LLL pneumonia and received a full 7-day course of IV/PO antibiotic therapy. Video swallow exam during that admission did not show aspiration. After discharge from [facility] on 02/25 she reports feeling "ok" for about 2 days, but then her cough, chest congestion, wheezing, dyspnea, and dyspnea on exertion all worsened. Symptoms progressed the last several days and she developed worsening respiratory distress on day of presentation prompting ER evaluation. Allergies Allergy/AdvReac Type Severity Reaction Status Date / Time azithromycin [From Zithromax] Allergy Intermediate HIVES Verified 03/04/25 15:27 nitrofurantoin Allergy Intermediate HIVES,ITCHI Verified 03/04/25 15:27 NG tramadol AdvReac Mild nausea Verified 03/04/25 15:27 Home Medications Medication Instructions Recorded Confirmed Type albuterol sulfate 90 mcg/actuation 2 inh inhalation DAILY PRN 11/08/23 03/04/25 History aerosol inhaler Shortness Of Breath Or Wheezing fluticasone propionate 50 2 spray intranasal DAILY PRN 11/08/23 03/04/25 History mcg/actuation nasal .allergy symptoms spray,suspension (Flonase Allergy Relief) acetaminophen 325 mg tablet 650 mg (2 x 325 mg) PO Q6 PRN 11/15/23 03/04/25 Rx (Tylenol) fever or pain #60 tabs famotidine 20 mg tablet 20 mg PO DAILY #90 tabs 12/25/23 03/04/25 Rx folic acid 1 mg tablet 1 mg PO QAM #90 tabs 12/25/23 03/04/25 Rx valacyclovir 500 mg tablet 500 mg PO DAILY 03/19/24 03/04/25 History magnesium 200 mg tablet 200 mg PO DAILY 09/24/24 03/04/25 History carbidopa 10 mg-levodopa 100 mg 2 tab PO TIDM 11/17/24 03/04/25 History tablet cyanocobalamin (vitamin B-12) 1,000 mcg PO QAM 11/17/24 03/04/25 History 1,000 mcg tablet (Vitamin B-12) levothyroxine 88 mcg tablet 88 mcg PO DAILYBB 11/17/24 03/04/25 History prednisolone acetate 1 % eye 1 drp OPR QAM 11/17/24 03/04/25 History drops,suspension apixaban 2.5 mg tablet (Eliquis) 2.5 mg PO BID #180 tabs 11/18/24 03/04/25 Rx ipratropium 0.5 mg-albuterol 3 mg 3 ml inhalation QID PRN dyspnea 02/18/25 03/04/25 History (2.5 mg base)/3 mL nebulization soln azelastine 137 mcg (0.1 %) nasal 1 spray NA BID #30 mL 02/24/25 03/04/25 Rx spray budesonide 0.25 mg/2 mL suspension 0.25 mg (2 mL) NEB BIDR #120 mL 02/24/25 03/04/25 Rx for nebulization formoterol fumarate 20 mcg/2 mL 20 mcg (2 mL) NEB BIDR #120 mL 02/24/25 03/04/25 Rx solution for nebulization (Perforomist) umeclidinium 62.5 mcg/actuation 1 inh inhalation DAILY #30 ea 02/24/25 03/04/25 Rx blister powder for inhalation (Incruse Ellipta) thiamine HCl (vitamin B1) 100 mg 200 mg (2 x 100 mg) PO QAM #90 tabs 03/02/25 03/04/25 Rx tablet atorvastatin 80 mg tablet 80 mg PO HS #30 tabs 03/03/25 03/04/25 Rx diclofenac sodium 1 % topical gel 4 g topical QID PRN KNEE PAIN 03/04/25 03/04/25 History furosemide 40 mg tablet 40 mg PO DAILY 03/04/25 03/04/25 History polyethylene glycol 3350 17 17 g PO DAILY 03/04/25 03/04/25 History gram/dose oral powder (Miralax) Patient History Medical History Parkinson's disease Abnormal chest CT Chronic dyspnea Stage 1 skin ulcer of sacral region Kidney stones Hallucinations Compression fracture of lumbar spine, non-traumatic (~09/23/23) seeing orthopedics Closed T2 fracture (~10/08/23) Parkinsons disease Type 2 diabetes mellitus without complication HTN (hypertension) DVT (deep venous thrombosis) Hyponatremia Megaloblastic anemia Diet-controlled diabetes mellitus History of ischemic stroke Second degree AV block, Mobitz type I Cardiomyopathy Chronic GERD Chronic fatigue syndrome Chronic laryngitis Cigarette smoker motivated to quit 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 Depression Dermatitis, eczematoid Diabetes mellitus (11/29/12) Hearing loss Hoarseness Ischemic colitis Low back pain NSTEMI (non-ST elevated myocardial infarction) Recurrent UTI SNHL (sensorineural hearing loss) Secondary hyperparathyroidism (of renal origin) Solitary pulmonary nodule Subsequent non-ST elevation (NSTEMI) myocardial infarction Vertigo GERD (gastroesophageal reflux disease) Chronic kidney disease Hypothyroidism (acquired) GI bleed Chronic deep vein thrombosis of left lower extremity Hyperlipidemia Thyroid disease Surgical History History of lumbar laminectomy for spinal cord decompression History of tubal ligation History of D&C History of Hx of colonoscopy Family History Mother , age 76 with leukemia Leukemia Hypertension Father , age 86 with heart issues Myocardial infarction Diabetes Other Family history non-contributory Denies family history of Ovarian cancer Prostate cancer Breast cancer Lung cancer Social History Smoking Status: Former smoker Tobacco Type: Cigarettes Age Started Using Tobacco: 17; Age Quit Using Tobacco: 73; packs per day: 1; Second Hand Exposure: No; Do You Dip or Chew Tobacco: No; Hx Alcohol Use: No Hx Substance Use: No Preferred Language: Wolof Communication Ability: Effective Visual Impairment: No Limitations Hearing Ability: Use of Hearing Aid Pitch Filler Required: No Beliefs That Will Affect Care: None marital status: Current Living Situation: Alone Current Living Situation Comment: home alone, [facility] current occupational status: retired 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 How many Children do You have: 3 How many Children do You have Comment: 1 daughter is Feels Safe at Home: Yes Safety Concerns: Feels Safe At This Time Childhood Exposure to Second-Hand Smoke: Yes Diet: regular caffeine: No Dental Care, Regularly: No Physical Activity Frequency: Does not Exercise Seatbelt Use: always Sunscreen Use: No Do you think of yourself as: straight/heterosexual Gender Identity: Female Assistive Devices: Oxygen - Continuous and Walker Review of Systems Review of Systems: All systems reviewed & are unremarkable except as noted in HPI & below Physical Exam Constitutional: + ill appearing, + thin, + frail appeari ng and cooperative Eyes: PERRL, conjunctivae normal, anicteric sclerae ENMT: external ear and nose normal, oropharynx normal Respiratory: + uses accessory muscles, + cough, able to speak in complete sent ences and + tachypneic Cardiovascular: RRR, no murmur, no edema Gastrointestinal (Abdomen): normal bowel sounds, soft, nontender, no hepatos plenomegaly Musculoskeletal: no cyanosis or clubbing, extremities motor strength 5/5 generalized weakness Skin: no rashes, warm and dry + pallor Neurologic: PERRL, EOMI, accommodation nl, no face palsy, no dysarthria Psychiatric: A+Ox3, euthymic affect Results & Data Vital Signs (Past 12 Hours) Vital Signs Temp Pulse Pulse Resp BP Pulse Ox O2 Del Method 03/09/25 11:57 36.4 C L 94 H 12 105/61 97 Nasal Cannula 03/09/25 10:54 74 17 94 Nasal Cannula 03/09/25 07:45 Nasal Cannula 03/09/25 07:14 36.6 C 82 16 127/53 L 100 Nasal Cannula 03/09/25 07:07 77 18 98 Nasal Cannula 03/09/25 03:43 36.3 C L 83 18 106/62 95 Room Air O2 Flow Rate 03/09/25 11:57 3 03/09/25 10:54 2 03/09/25 07:45 3 03/09/25 07:14 3 03/09/25 07:07 2 03/09/25 03:43 Laboratory Results Abnormal lab results 03/09/25 Range/Units 09:55 RBC 2.67 L (4.20-5.40) M/uL Hgb 9.6 L (12.0-16.0) g/dl Hct 30.9 L (37.0-47.0) % MCV 115.7 H (80.0-100.0) fL MCH 36.0 H (25.0-34.0) pg MCHC 31.1 L (32.0-36.0) g/dL RDW Std Deviation 61.5 H (36.4-46.3) fL Carbon Dioxide 36 H (21-32) mmol/L BUN 25 H (6-23) mg/dl Creatinine 1.31 H (0.6-1.2) mg/dl Glucose 170 H (70-99(Fasting)) mg/dl Diagnostic Findings Abdomen/Pelvis CT 03/04/25 13:48 Clinical History: Weakness and fatigue Technique: Axial computed tomography images were obtained of the abdomen and pelvis after the administration of intravenous and oral contrast. Comparison is made to the prior CT dated 08/16/2024. Findings: The liver is overall of normal size, attenuation, and contour with no sign of cirrhosis or significant fatty infiltration. No liver mass lesion is seen. The portal vein is patent. Gallstones are present. There is no sign of acute cholecystitis. No bile duct dilatation is noted. The spleen is of normal size. No focal splenic lesion is evident. The pancreas appears normal with no sign of acute or chronic pancreatitis and no mass lesion noted. The pancreatic duct is at the upper limit of normal in size, measuring up to 3 mm. The adrenal glands appear unremarkable. There are bilateral renal calculi, measuring up to 7 mm in size. There is no hydronephrosis or perinephric stranding. No renal mass lesion is identified. There are bilateral renal cysts, measuring up to 3.1 cm. There is bilateral renal cortical scarring The abdominal aorta is of normal caliber. No abdominal adenopathy is seen. There is prominence of the gastric wall that is likely due to the postcholecystectomy state. There is no sign of small bowel obstruction. The colon appears unremarkable. The appendix appears normal also. No free intraperitoneal fluid or air is identified. No distal ureteral or bladder calculi are seen. No bladder mass lesion is evident. The iliac arteries are of normal caliber. No pelvic adenopathy is noted. There are venous varicosities in the groin bilaterally Lumbar degenerative disc disease is seen. There are unchanged compression fractures of the L1, L3, and L5 vertebral bodies. No focal osseous lesion is seen Impression: 1. Cholelithiasis without evidence of acute cholecystitis 2. Bilateral renal cysts 3. Bilateral nonobstructing renal calculi Electronically signed by Nabor Jacob 03-04-2025 5:07 PM Chest CTA 03/04/25 13:48 Clinical history: Cough and shortness of breath Technique: Axial computed tomography images were obtained of the chest after the administration of intravenous contrast according to the CT angiogram protocol Comparison is made to the prior CT dated 08/16/2024 Findings: There is no definite sign of pulmonary embolism. There is new complete collapse of the right middle lobe and right upper lobe and there is partial collapse of the left lower lobe. There are worsened mild multifocal interstitial and nodular opacities in the bilateral upper lobes and the left lower lobe that could be due to pneumonia. There is emphysema. There is no right pleural effusion or pneumothorax. There is a small left pleural effusion. There is new occlusion of the bronchus intermedius, the right middle lobe bronchus, the right lower lobe bronchus, and the left lower lobe bronchus. There is no mediastinal, hilar, or axillary adenopathy. The thoracic aorta appears unremarkable with no sign of aneurysm or dissection. There is no pericardial effusion There are multiple bilateral renal cysts and there are bilateral renal calculi. There are multiple unchanged vertebral compression fractures. There is thoracic scoliosis and degenerative disc disease. There are old healed left rib fractures. Impression: 1. No definite sign of pulmonary embolism 2. New complete collapse of the right middle lobe and right lower lobe, and partial collapse of the left lower lobe 3. Small left pleural effusion 4. New complete occlusion of the bronchus intermedius, the right middle lobe bronchus, the right lower lobe bronchus, and the left lower lobe bronchus. This could be due to mucous plugging or infectious debris 5. Increased mild interstitial and nodular opacities that could be due to pneumonia 6. Emphysema 7. Bilateral renal cysts and bilateral renal calculi 8. No definite change in multiple vertebral compression fractures ACT 112: Positive. There are findings on this exam that require communication between the performing entity and the patient following Patient Test Result Information Act ([place] ACT 112) guidelines. Electronically signed by Nabor Jacob 03-04-2025 4:59 PM Chest X-Ray 03/07/25 11:24 XR chest 1V portable CLINICAL HISTORY: pna COMPARISON STUDY: 03/06/2025 FINDINGS: Stable cardiomegaly with pulmonary vascular congestion. Stable diffuse pulmonary interstitial prominence. Stable opacity at the right lung base with obscuration of the right hemidiaphragm. Stable mild opacity at the left base. No pneumothorax. IMPRESSION: Stable exam. ACT 112: Negative or not required by law. Electronically signed by: Morgan Delaney M.D. 03/07/2025 11:44 AM Medications Administered Current Inpatient Medications Acetaminophen (Acetaminophen 325 Mg Tab) 650 mg PO Q6 PRN PRN Reason: fever or pain Stop: 04/03/25 21:48 Last Admin: 03/09/25 07:56 Dose: 650 mg Albuterol (Albut/Ipratrop 3mg/0.5mg Neb 3 Ml Vial) 3 ml NEB QIDR LOREN; Protocol Stop: 04/03/25 18:59 Last Admin: 03/09/25 10:52 Dose: 3 ml Albuterol (Albuterol Hfa 8 Gm Inhaler) 2 puffs INH DAILY PRN PRN Reason: Shortness Of Breath Or Wheezing Stop: 04/03/25 21:48 Atorvastatin Calcium (Atorvastatin 40 Mg Tab) 80 mg PO HS LOREN Stop: 04/03/25 21:48 Last Admin: 03/08/25 21:00 Dose: 80 mg Azelastine HCl (Azelastine Hcl 0.1% Nasal 200 Sprays/27,400 Mcg Btl) 1 sprays NA BID LOREN Stop: 04/03/25 21:48 Last Admin: 03/09/25 07:51 Dose: 1 sprays Budesonide (Budesonide 0.25 Mg/2 Ml Vial (Pulmicort)) 0.25 mg NEB BIDR LOREN Stop: 04/03/25 21:48 Last Admin: 03/09/25 07:05 Dose: 0.25 mg Carbidopa/Levodopa (Carbidopa/Levodop 10/100mg Tab) 2 tab PO TIDM LOREN Stop: 04/04/25 07:59 Last Admin: 03/09/25 12:29 Dose: 2 tab Cyanocobalamin (Cyanocobalamin (B-12) 500 Mcg Tablet) 1,000 mcg PO QAM LOREN Stop: 04/04/25 08:59 Last Admin: 03/09/25 07:53 Dose: 1,000 mcg Diclofenac Sodium (Diclofenac Sod 1% Gel 100 Gm Tube) 4 gm EXT QID PRN; Protocol PRN Reason: KNEE PAIN Stop: 04/03/25 21:48 Dornase Ej (Dornase Ej 2.5 Ml Amp) 2.5 ml INH BID LOREN Stop: 04/04/25 20:59 Last Admin: 03/09/25 07:22 Dose: 2.5 ml Famotidine (Famotidine 20 Mg Tab) 20 mg PO DAILY LOREN Stop: 04/04/25 08:59 Last Admin: 03/09/25 07:56 Dose: 20 mg Fluticasone Propionate (Fluticasone Propionate Na Spr 16 Gm Btl) 2 sprays NA DAILY PRN PRN Reason: .allergy symptoms Stop: 04/03/25 21:48 Folic Acid (Folic Acid 1 Mg Tab) 1 mg PO QAM [facility] Stop: 04/04/25 08:59 Last Admin: 03/09/25 07:53 Dose: 1 mg Formoterol Fumarate (Formoterol 20 Mcg/2 Ml Vial) 20 mcg NEB BIDR LOREN Stop: 04/04/25 18:59 Last Admin: 03/09/25 07:05 Dose: 20 mcg Guaifenesin (Guaifenesin Sugar Free 100 Mg/5 Ml Udc) 100 mg PO QID LOREN Stop: 04/03/25 20:59 Last Admin: 03/09/25 12:29 Dose: 100 mg Meropenem 500 mg/ Syringe 10 mls @ 2 mls/min IV Q12H LOREN; Protocol Stop: 03/11/25 21:59 Last Admin: 03/09/25 07:57 Dose: 2 mls/min Levothyroxine Sodium (Levothyroxine Sodium 88 Mcg Tablet) 88 mcg PO DAILYBB LOREN Stop: 04/04/25 06:29 Last Admin: 03/09/25 05:24 Dose: 88 mcg Magnesium Oxide (Magnesium Oxide 400 Mg Tab) 400 mg PO DAILY [facility] Stop: 04/04/25 08:59 Last Admin: 03/09/25 07:53 Dose: 400 mg Ondansetron HCl (Ondansetron Inj 2 Mg/Ml 2 Ml Vial) 4 mg IV Q6H PRN PRN Reason: Nausea Stop: 04/03/25 21:48 Polyethylene Glycol (Polyethylene (Miralax) 17 Gm Pack) 17 gm PO DAILY LOREN Stop: 04/04/25 08:59 Last Admin: 03/09/25 07:53 Dose: Not Given Prednisolone Acetate (Prednisolone Acetate 1% Op Susp 5 Ml Btl) 1 drops [place]PR [place] Stop: 04/04/25 08:59 Last Admin: 03/09/25 07:57 Dose: 1 drops Sennosides (Senna 8.6 Mg Tab) 17.2 mg PO QAM [facility] Stop: 04/06/25 08:59 Last Admin: 03/09/25 07:56 Dose: 17.2 mg Sodium Chloride (Sodium Chlor 7% 4 Ml Neb) 4 ml NEB BIDR [facility] Stop: 04/03/25 18:59 Last Admin: 03/09/25 07:05 Dose: 4 ml Thiamine HCl (Thiamine Hcl 100 Mg Tab) 200 mg PO QAM [facility] Stop: 04/04/25 08:59 Last Admin: 03/09/25 07:52 Dose: 200 mg Valacyclovir HCl (Valacyclovir Hcl 500 Mg Tablet) 500 mg PO DAILY [facility] Stop: 04/04/25 08:59 Last Admin: 03/09/25 07:53 Dose: 500 mg PG Care Time/CCT Total # of Minutes Spent Total Time Spent with Patient: Total time spent is greater than 50% in coordination of care (as documented) at patient's floor/unit and/or counseling patient: Advanced Care Planning 70721 Advanced Care Planning 30 [place] [address] IN/OBS CONSULT LVL 3,45M Patient Type New History Expanded Problem Focused Exam Expanded Problem Focused Medical Decision Making Moderate Complexity Diagnoses Dyspnea on exertion R06.00 Palliative care by specialist Z51.5 Counseling regarding goals of care Z71.89 Physician orders for life-sustaining treatment (POLST) form indicates patient wish for full code resuscitation status Z78.9 Additional Codes Advanced Care Planning - 39579 Advanced Care Planning 30 Min: 44780 Advanced Care Planning 30 Min ([id number])
--- NOTE | 2025-03-09 20:43 | Hospitalist Progress Note ---
Date of Service March 09, 2025 Assessment & Plan (1) Acute on chronic respiratory failure with hypoxia and hypercapnia: (2) Collapse of lung: (3) Mucus plugging of bronchi: (4) Pneumonia: (5) Interstitial lung disease: (6) Pulmonary hypertension: (7) Parkinson's disease: Plan 79yo female with chronic hypoxic respiratory failure on home continuous O2 3 liters, ILD/PF, previous long-standing tobacco use (at least 50 pack years), anemia, parkinsonism, pulmonary hypertension, chronic HFpEF, GERD with history of GI bleed, hypothyroidism, lumbar spinal stenosis, CKD stage IV with baseline CrCl ~20, prediabetes, vitamin D deficiency, and osteoporosis. She was hospitalized at [facility] from 11/07 to 12/02 earlier this year for ESBL ecoli bacteremia 2nd to UTI. Course complicated by acute/chronic CHF. Was discharged to [facility] for rehab and remained there until 01/31. Hospitalized at [facility] from 02/18 to 02/25 for LLL pneumonia and received a full 7-day course of IV/PO antibiotic therapy. Video swallow exam during that admission did not show aspiration. After discharge from [facility] on 02/25 developed recurrent cough, chest congestion, wheezing, dyspnea, and dyspnea on exertion about 2-3 days post- discharge. No vomiting, no dysphagia - per patient. #b/l pneumonia with RML collapse, RLL collapse, and LLL collapse from mucous plugging - overall respiratory status IMPROVING - -during recent hospital stay was treated with cefepime/doxy x 5 days, then finished her course with PO levaquin -given her presentation, severity of illness, recent cefepime use, & CT findings --- cover for resistant pathogens with meropenem - day #6 of such - would plan full 7 days of Rx then stop all abx -MRSA swab checked -- negative, deferred on additional MRSA coverage -deferred on atypical coverage -sputum culture negative -for RML/RLL/LLL collapse continue the following: -vibration vest BID -saline nebs BID -duonebs QID -robitussin QID -cough assist device QID -dornase BID -budesonide BID -formoterol BID -frequent turning/positioning, avoid prolonged laying on back, etc (she does not like to reposition unfortunately) -flutter valve -suspect inability to expectorate sputum is from chest wall weakness from deconditioning, her Parkinson's, etc -appreciate ongoing assistance from pulmonary -bronch had been considered all weekend, but given benefits vs risks as well as clinical improvement --> bronch deferred at this time #ILD - known, chronic - -although she has emphysematous changes on CT chest she had no obstruction on PFTs in 06/2024 -although BNP is mildly elevated she does not examine volume overloaded -see above under pneumonia/lung collapse for other recs #acute on chronic hypoxic respiratory failure on home O2 - -3 liters continuously at home -chronic hypoxic resp failure 2nd to ILD, pulmonary HTN, etc. -acute component - b/l pneumonia, b/l lung collapse (RML, RLL, LLL) - IMPROVING #chronic HFpEF - -remains compensated at this time -lasix on hold #hypothyroidism - -TSH wnl early January 2025 -cont levothyroxine #chronic DVT - as seen on b/l LE dopplers 10/2024 - -we have been holding Eliquis 2.5mg BID in the event she needed bronchoscopy -suspect we can resume Eliquis tomorrow; in meantime, heparin 5000 BID for DVT Proph #parkinsonism - -cont sinemet 2 tabs TID -PT/OT completed - needs rehab, but wants to go home #chronic right eye disease - -cont prednisolone drops HS #chronic CKD stage 3 - -creatinine stable on BMP today #DVT proph - -Eliquis 2.5mg BID has been on hold in the event she needed bronchoscopy but no bronch needed -can likely resume on 03/10 pt's daughter Almita Fountain extensively updated by phone 03/08 suspect we can d/c home on , 03/11 - abx course will be done by then, and pt and her daughters will need to set up her caregivers for her home (she has extensive caregivers at home) Admission and Anticipated Discharge Date Admission Date: March 04, 2025 Subjective no events overnight tele wnl pt sitting in chair feels good wants to go home cough has improved dyspnea MUCH improved eating well she doesn't think the cough assist machine works vibration vest seems to help is coughing up some sputum we discussed the nature of her lung disease discussed getting palliative care consult she was agreeable to such Review of Systems Review of Systems: cv - no chest pain pulm - no dyspnea at rest GI - no N/V; had a stool this am Physical Exam Physical Exam: gen - thin, +tremors from Parkinson's, sitting in chair, best she has looked the entire hospital stay; cough is very mild - not bronchial cough any longer HENT - mouth - MMM, no thrush neck - no JVD heart - RRR, s1 s2, no murmur lungs - no wheezes today; airation improved b/l bases; + fine rales b/l; no distress or increased work of breathing abd - soft NT ND BS+ ext - no edema, pulses b/l feet 2+; RLE is larger than LLE - chronic neuro - tremors b/l arms and head/neck at baseline psych - awake/alert Results & Data Results & Data Vital Signs (Past 12 Hours) Vital Signs Temp Pulse Pulse Resp BP Pulse Ox O2 Del Method 03/09/25 20:15 86 18 99 Nasal Cannula 03/09/25 19:10 36.8 C 92 H 17 113/64 99 Nasal Cannula 03/09/25 15:26 36.4 C L 95 H 95 H 16 110/64 99 Nasal Cannula 03/09/25 15:10 78 18 94 Nasal Cannula 03/09/25 11:57 36.4 C L 94 H 12 105/61 97 Nasal Cannula 03/09/25 10:54 74 17 94 Nasal Cannula O2 Flow Rate 03/09/25 20:15 2 03/09/25 19:10 2 03/09/25 15:26 3 03/09/25 15:10 2 03/09/25 11:57 3 03/09/25 10:54 2 Laboratory Results Laboratory Results - last 48 hr 03/09/25 09:55 WBC 6.66 RBC 2.67 L Hgb 9.6 L Hct 30.9 L MCV 115.7 H MCH 36.0 H MCHC 31.1 L RDW Std Deviation 61.5 H RDW Coeff of Damien 14.5 Plt Count 273 MPV 10.5 Sodium 140 Potassium 4.2 Chloride 99 Carbon Dioxide 36 H Anion Gap 5 BUN 25 H Creatinine 1.31 H Est Cr Clr Drug Dosing 21.3 eGFR 40.93 BUN/Creatinine Ratio 19.1 Glucose 170 H Calcium 9.2 Magnesium 1.9 Microbiology 03/04/25 13:54 Blood Aerobic Blood Culture - Final No growth in Aerobic bottle after 5 days. 03/04/25 13:54 Blood Anaerobic Blood Culture - Final 03/04/25 13:54 Blood Aerobic Blood Culture - Final No growth in Aerobic bottle after 5 days. 03/04/25 13:54 Blood Anaerobic Blood Culture - Final No growth in Anaerobic bottle after 5 days. 03/06/25 20:20 Sputum, Expectorated Gram Stain - Final 03/06/25 20:20 Sputum, Expectorated Sputum Culture - Final Heavy normal hiram. PG Care Time/CCT Total # of Minutes Spent Total Time Spent with Patient: Total time spent is greater than 50% in coordination of care (as documented) at patient's floor/unit and/or counseling patient: Coding Level of Care Code 42778 SUB INP/OBS CARE 2/35MIN Diagnoses Acute on chronic respiratory failure with hypoxia and hypercapnia J96.21; J96.22 Collapse of lung J98.19 Mucus plugging of bronchi T17.500A Pneumonia J18.9 Interstitial lung disease J84.9 Pulmonary hypertension I27.20 Parkinson's disease G20.A1
[2025-03-09] MEDS: HEPARIN SOD 5,000 UNIT/0.5 ML VIAL SQ SCH (21:36)
[2025-03-10 06:55] LABS: Creatinine Clr Calc Pharmacy 23.3 ml/min
--- NOTE | 2025-03-10 08:06 | XRay Report ---
EXAM: XR chest 1V portable CLINICAL HISTORY: f/u for atelectasis TECHNIQUE: An X-ray image of the chest is obtained in AP projection. COMPARISON: 10:10:00 TRUCK BRACER FINDINGS: Pulmonary Parenchyma: Evidence of subsegmental collapse in the bilateral lower zones There is unchanged reticular shadowing in the bilateral upper zones, more so on the right. There is unchanged blunting of the bilateral costophrenic angles, likely due to pleural effusion. Heart and Mediastinum: The heart size and shape are normal. There is no mediastinal widening or masses. There is no hilar or mediastinal lymphadenopathy. Bony Thorax: There are spondylotic changes in the thoracic spine. There are degenerative changes in the bilateral shoulder joints. The bony thorax appears intact, without fractures or deformities. Soft Tissues: The soft tissues overlying the chest wall are unremarkable. There is a tube artifact on the left. IMPRESSION: Evidence of subsegmental collapse in the bilateral lower zones Prior right lower lobar consolidation is significantly reduced There is unchanged reticular shadowing in the bilateral upper zones, more so on the right. There is unchanged blunting of the bilateral costophrenic angles, likely due to pleural effusion. No other interval changes. Electronically signed by Flaquito Bender 03-10-2025 08:05 AM
--- NOTE | 2025-03-10 11:12 | Hospitalist Progress Note ---
Date of Service March 10, 2025 Assessment & Plan (1) Acute on chronic respiratory failure with hypoxia and hypercapnia: (2) Collapse of lung: (3) Mucus plugging of bronchi: (4) Pneumonia: (5) Interstitial lung disease: (6) Pulmonary hypertension: (7) Parkinson's disease: Plan 79yo female with chronic hypoxic respiratory failure on home continuous O2 3 liters, ILD/PF, COPD, pulmonary hypertension, chronic HFpEF, CKD-3 who was admitted with acute on chronic respiratory failure, extensive mucus plugging and bilateral lung collapse She was hospitalized at [facility] from 11/07 to 12/02 earlier this year for ESBL ecoli bacteremia 2nd to UTI. Course complicated by acute/chronic CHF. Was discharged to [facility] for rehab and remained there until 01/31. Hospitalized at [facility] from 02/18 to 02/25 for LLL pneumonia and received a full 7-day course of IV/PO antibiotic therapy. Video swallow exam during that admission did not show aspiration. Discharged with nebulizers including saline nebs. #b/l pneumonia with RML collapse, RLL collapse, and LLL collapse from mucous plugging #Pulmonary fibrosis, emphysema, pulmonary hypertension #acute on chronic hypoxic respiratory failure on home O2 - now on baseline amount of O2 -completing 7-day course of meropenem today -sputum culture negative -for RML/RLL/LLL collapse continue the following: -vibration vest BID -saline nebs BID -duonebs QID -cough assist device QID -dornase BID -budesonide BID -formoterol BID -frequent turning/positioning, avoid prolonged laying on back, etc (she does not like to reposition unfortunately) -flutter valve -suspect inability to expectorate sputum is from chest wall weakness from deconditioning, her Parkinson's, kyphosis -reviewed recs in pulmonary note 03/09 -discussed with palliative respiratory care specialist - DNR/DNI but wishes to continue current care, her goal is to attend her grandson's wedding in March -counseled wrt need to keep up with her pulmonary regimen at home in order to keep herself going #chronic HFpEF - -remains compensated at this time getting some mild edema and Cr supranormal for her, needs to run dry to help with the pulmonary disease -resume oral lasix #hypothyroidism - -TSH wnl early January 2025 -cont levothyroxine #chronic DVT - as seen on b/l LE dopplers 10/2024 - -we have been holding Eliquis 2.5mg BID in the event she needed bronchoscopy - resume #parkinsonism - -cont sinemet 2 tabs TID -PT/OT completed - needs rehab, but wants to go home #chronic right eye disease - -cont prednisolone drops HS - made referral to optho last discharge #chronic CKD stage 3 - -creatinine stable on BMP today pt's daughter Almita Fountain extensively updated by phone 03/08 suspect we can d/c home on , 03/11 - abx course will be done by then, and pt and her daughters will need to set up her caregivers for her home Admission and Anticipated Discharge Date Admission Date: March 04, 2025 Subjective Continues with cough and not bringing up mucus Dyspnea at baseline Physical Exam 2 Physical Exam: Last 24h vitals reviewed GEN: no acute distress, sitting in chair, frail appearing HEENT: pupils equal, sclerae anicteric, moist MM RESP: normal WOB, coarse / loose ronchi througout, severe kyphosis CV: reg obscured ABD: soft/nt/nd +BT : no zepeda SKIN: warm and dry, no generalized rashes EXT: wwp, trace edema NEURO: AOx person, place, and situation. Face symmetric, speech normal, moves 4 ext spontaneously and equally Results & Data Results & Data Vital Signs (Past 12 Hours) Vital Signs Temp Pulse Resp BP Pulse Ox O2 Del Method O2 Flow Rate 03/10/25 07:29 90 20 91 Nasal Cannula 2 03/10/25 03:04 36.6 C 92 H 16 144/79 H 99 Nasal Cannula 2 Laboratory Results 03/09/25 09:55 03/10/25 05:37 CXR - personally reviewed film, opacities improved, bilateral collapse in bases persists PG Care Time/CCT Total # of Minutes Spent Total Time Spent with Patient: Total time spent is greater than 50% in coordination of care (as documented) at patient's floor/unit and/or counseling patient: Coding Level of Care Code 41993 SUB INP/OBS CARE 2/35MIN Diagnoses Acute on chronic respiratory failure with hypoxia and hypercapnia J96.21; J96.22 Collapse of lung J98.19 Mucus plugging of bronchi T17.500A Pneumonia J18.9 Interstitial lung disease J84.9 Pulmonary hypertension I27.20 Parkinson's disease G20.A1
--- NOTE | 2025-03-10 12:46 | Pulmonology Progress Note ---
Date of Service March 10, 2025 Assessment & Plan (1) Hospital-acquired bacterial pneumonia: (2) Mucus plugging of bronchi: (3) Acute hypoxic respiratory failure: (4) Interstitial lung disease: Plan Patient remains on meropenem for hospital-acquired pneumonia. Can complete 7 days. The patient has inspissated mucus bilaterally as seen on CT imaging. CT is not concerning for ILD flare. The patient also was very weak leading to difficulty coughing up secretions. The patient has been on pulmonary toilet with Pulmozyme twice daily, CoughAssist, percussive vest therapy and hypertonic saline. Will need to continue this. She is only on 2 L of oxygen. She inform me that she will not use the CoughAssist device as she does not believe it will help her. I encouraged the patient to try to use this device again. I also encouraged her to use her flutter valve more often. Repeat imaging obtained this morning shows some subtle improvements in the atelectasis. Consider repeat imaging in 3 to 4 days. I encouraged the patient to try to mobilize more. I encouraged her to be sitting up in the chair as much as she can throughout the day and ambulate is much as possible. I explained the utility of bronchoscopy for airway clearance, I explained that given her weak cough and inability to clear her own secretions the chance of mucous reaccumulating is extremely likely. Given that her oxygen has improved and her x-ray slightly improved with our current therapy I do not believe that bronchoscopy is the right option at this time. Recommendations: Complete antibiotic therapy. Encourage mobilization and up to chair is much as possible throughout the day. Encourage compliance with airway clearance devices including CoughAssist and flutter valve. Continue aggressive pulmonary toilet as prescribed. Continue bronchodilators. Consider repeat imaging in 3 to 4 days. Plan was discussed in detail with patient and hospitalist was updated on plan of care. I will sign off at this time. Please feel free to reach out with any questions or concerns. Admission and Anticipated Discharge Date Admission Date: March 04, 2025 Subjective Patient seen and examined this morning. She says she did okay overnight. She says she spent a bit of time in the chair and ambulating yesterday. She has not had any more phlegm production. She is not wanting to use the CoughAssist device. She says it does not help her. She is allowing for vest therapy however. Says that she occasionally is using the flutter valve AB a couple times a day. No fevers or chills overnight. Says that she feels tired but otherwise doing okay. Review of Systems Review of Systems: A 12 point review of systems was obtained in detail. Negative except as noted in HPI. Physical Exam Physical Exam: Physical examination: General: Frail appearing, appears comfortable, resting in bed and not in distress. HEENT: Normocephalic, atraumatic. Extraocular movements intact. Sclera are nonicteric. No JVD appreciated. Skin: Warm and dry. No rashes appreciated. No jaundice appreciated. Cardiovascular: Heart is a regular rate and rhythm, no murmurs appreciated on my exam. No significant lower extremity edema. Lungs: Weak cough is present. On 2 L via nasal cannula. Nontachypneic. Coarse rhonchorous breath sounds. A lot of upper airway noises after coughing but not expectorating. No wheezing. Abdomen: Nondistended, nontender to palpation. Musculoskeletal: Normal muscle mass and tone. No gross joint deformity abnormalities. No effusions appreciated. Neurologic: Very weak. Tremors present. Awake and alert, oriented. CN II through XII are grossly intact. Speech is fluent. Nonfocal exam. Psychiatric: Appropriate cooperative during my exam. Results & Data Results & Data Vital Signs (Past 12 Hours) Vital Signs Temp Pulse Pulse Resp BP Pulse Ox O2 Del Method 03/10/25 11:31 36.5 C 87 18 104/51 L 100 Nasal Cannula 03/10/25 11:08 85 20 90 Nasal Cannula 03/10/25 07:30 83 03/10/25 07:29 90 20 91 Nasal Cannula 03/10/25 03:04 36.6 C 92 H 16 144/79 H 99 Nasal Cannula O2 Flow Rate 03/10/25 11:31 2 03/10/25 11:08 2 03/10/25 07:30 03/10/25 07:29 2 03/10/25 03:04 2 PG Care Time/CCT Total # of Minutes Spent Total Time Spent with Patient: Total time spent is greater than 50% in coordination of care (as documented) at patient's floor/unit and/or counseling patient: Coding [place] [address] SUB INP/OBS CARE 2/35MIN Patient Type Established History Detailed Exam Detailed Medical Decision Making Moderate Complexity Diagnoses Hospital-acquired bacterial pneumonia J15.9 Mucus plugging of bronchi T17.500A Acute hypoxic respiratory failure J96.01 Interstitial lung disease J84.9
[2025-03-10] MEDS: FUROSEMIDE 40 MG TAB PO SCH (13:03)
[2025-03-10] MEDS: DICLOFENAC SOD 1% GEL 100 GM TUBE EXT PRN (15:51)
[2025-03-10] MEDS: APIXABAN 2.5 MG TAB PO SCH (20:18)
--- NOTE | 2025-03-11 16:35 | Palliative Care Progress Note ---
Date of Service March 11, 2025 Assessment & Plan (1) Dyspnea: Plan: Pt states her breathing has improved to her baseline. currently on 2L NC (2) Counseling regarding goals of care: Plan: Reinforced previous discussion, pt confirms wish for DNR/DNI, but continue all other life prolonging treatments. 30 minutes spent with patient discussing GOC and completing POLST. (3) POLST (Physician Orders for Life-Sustaining Treatment): Plan: POLST form completed with pt reflecting her current wishes for DNR/DNI, continue all other therapies. Copy placed in chart, copy sent to medical records for uploading to EMR, and original left with patient. (4) Palliative care by specialist: Plan: We will sign off on this patient as goals of care are clearly established for DNR/DNI but continue all other life prolonging therapies Thank you for including Palliative Care in the management of this patient. Please call with any questions or concerns regarding this consultation. Plan as above Admission and Anticipated Discharge Date Admission Date: March 04, 2025 Subjective Assessed pt at bedside, she was more withdrawn today but alert. She denies and pain but continues to have dyspnea with minimal exertion. NAEON. VSS, remains on 2L via NC. Review of Systems Review of Systems: All systems reviewed & are unremarkable except as noted in Subjective Physical Exam Constitutional: + ill appearing, + thin, + frail appeari ng and cooperative Eyes: PERRL, conjunctivae normal, anicteric sclerae ENMT: external ear and nose normal, oropharynx normal Respiratory: + uses accessory muscles, + cough, able to speak in complete sentences and + tachypneic Cardiovascular: RRR, no murmur, no edema Gastrointestinal (Abdomen): normal bowel sounds, soft, nontender, no h epatosplenomegaly Musculoskeletal: no cyanosis or clubbing, extremities motor strength 5/5 generalized weakness Skin: no rashes, warm and dry + pallor Neurologic: PERRL, EOMI, accommodation nl, no face palsy, no dysarthria Psychiatric: A+Ox3, euthymic affect Results & Data Vital Signs (Past 12 Hours) Vital Signs Temp Pulse Resp BP Pulse Ox O2 Del Method O2 Flow Rate 03/11/25 11:36 90 18 97 Nasal Cannula 2 03/11/25 11:05 36.4 C L 91 H 17 109/60 100 Nasal Cannula 2 03/11/25 08:00 Nasal Cannula 2 03/11/25 07:51 84 20 98 Nasal Cannula 2 03/11/25 07:09 36.6 C 80 18 121/68 99 Nasal Cannula 2 03/11/25 02:34 36.4 C L 84 18 94/56 L 99 Nasal Cannula 2.0 PG Care Time/CCT Total # of Minutes Spent Total Time Spent with Patient: Total time spent is greater than 50% in coordination of care (as documented) at patient's floor/unit and/or counseling patient: Advanced Care Planning 80677 Advanced Care Planning 30 Min Coding [place] [address] SUB INP/OBS CARE 2/35MIN Patient Type Established History Expanded Problem Focused Exam Expanded Problem Focused Medical Decision Making Moderate Complexity Diagnoses Dyspnea on exertion R06.09 Dyspnea type: dyspnea on exertion Counseling regarding goals of care Z71.89 POLST (Physician Orders for Life-Sustaining Treatment) Z78.9 Palliative care by specialist Z51.5 Additional Codes Advanced Care Planning - 28195 Advanced Care Planning 30 Min: 43554 Advanced Care Planning 30 Min ([id number]) (1) Dyspnea Dyspnea type: dyspnea on exertion Qualified Code(s): R06.09 - Other forms of dyspnea
--- NOTE | 2025-03-11 17:42 | Hospitalist Progress Note ---
Date of Service March 11, 2025 Assessment & Plan (1) Acute on chronic respiratory failure with hypoxia and hypercapnia: (2) Collapse of lung: (3) Mucus plugging of bronchi: (4) Pneumonia: (5) Interstitial lung disease: (6) Pulmonary hypertension: (7) Parkinson's disease: Plan 79yo female with chronic hypoxic respiratory failure on home continuous O2 3 liters, ILD/PF, COPD, pulmonary hypertension, chronic HFpEF, CKD-3 who was admitted with acute on chronic respiratory failure, extensive mucus plugging and bilateral lung collapse She was hospitalized at [facility] from 11/07 to 12/02 earlier this year for ESBL ecoli bacteremia 2nd to UTI. Course complicated by acute/chronic CHF. Was discharged to [facility] for rehab and remained there until 01/31. Hospitalized at [facility] from 02/18 to 02/25 for LLL pneumonia and received a full 7-day course of IV/PO antibiotic therapy. Video swallow exam during that admission did not show aspiration. Discharged with nebulizers including saline nebs but was not using. #b/l pneumonia with RML collapse, RLL collapse, and LLL collapse from mucous plugging #Pulmonary fibrosis, emphysema, pulmonary hypertension #acute on chronic hypoxic respiratory failure on home O2 - now on baseline amount of O2 -completing 7-day course of meropenem 03/11 -sputum culture negative -for RML/RLL/LLL collapse continue the following: -vibration vest BID - working on ordering one for home. Refuses to use the cough assist -saline nebs BID -duonebs QID -dornase BID -budesonide BID -formoterol BID -frequent turning/positioning, avoid prolonged laying on back, etc (she does not like to reposition unfortunately) -flutter valve -CXR ordered for tomorrow AM -suspect inability to expectorate sputum is from chest wall weakness from deconditioning, her Parkinson's, kyphosis -reviewed recs in pulmonary note 03/10 -discussed with palliative long term care social worker - DNR/DNI but wishes to continue current care, her goal is to attend her grandson's wedding in March. will send home with new POLST -counseled wrt need to keep up with her pulmonary regimen at home in order to keep herself going continues to have difficulty with mucus clearance - continue treatment in hospital will benefit from several more days supervised/intensive treatment otherwise will quickly relapse again. I discussed with her daughter Almita 03/11 planning discharge Jere AM and caregiver can come in for some training - will request from RT. #chronic HFpEF - -remains compensated at this time getting some mild edema and Cr supranormal for her, needs to run dry to help with the pulmonary disease -cont oral lasix #hypothyroidism - -TSH wnl early January 2025 -cont levothyroxine #chronic DVT - as seen on b/l LE dopplers 10/2024 - -continue apixaban #parkinsonism - -cont sinemet 2 tabs TID -PT/OT completed - needs rehab, but wants to go home #chronic right eye disease - -cont prednisolone drops HS - made referral to optho last discharge #chronic CKD stage 3 - -creatinine stable on [facility] 03/10 Admission and Anticipated Discharge Date Admission Date: March 04, 2025 Subjective doing pretty well today, still not clearing much mucus but has coughed up a little bit Physical Exam 2 Physical Exam: Last 24h vitals reviewed GEN: no acute distress, sitting in chair, frail appearing HEENT: pupils equal, sclerae anicteric, moist MM RESP: normal WOB, continues to have a lot of mucus coarse ronchi throughout CV: reg obscured ABD: soft/nt/nd +BT : no zepeda SKIN: warm and dry, no generalized rashes EXT: wwp, trace edema NEURO: AOx person, place, and situation. Face symmetric, speech normal, moves 4 ext spontaneously and equally Results & Data Results & Data Vital Signs (Past 12 Hours) Vital Signs Temp Pulse Resp BP BP Pulse Ox O2 Del Method 03/11/25 16:45 Nasal Cannula 03/11/25 16:00 86 18 99 Nasal Cannula 03/11/25 15:46 36.3 C L 89 17 104/61 95 Nasal Cannula 03/11/25 11:36 90 18 97 Nasal Cannula 03/11/25 11:05 36.4 C L 91 H 17 109/60 100 Nasal Cannula 03/11/25 08:00 Nasal Cannula 03/11/25 07:51 84 20 98 Nasal Cannula 03/11/25 07:09 36.6 C 80 18 121/68 99 Nasal Cannula O2 Flow Rate 03/11/25 16:45 2 03/11/25 16:00 2 03/11/25 15:46 2 03/11/25 11:36 2 03/11/25 11:05 2 03/11/25 08:00 2 03/11/25 07:51 2 03/11/25 07:09 2 Laboratory Results 03/09/25 09:55 03/10/25 05:37 PG Care Time/CCT Total # of Minutes Spent Total Time Spent with Patient: Total time spent is greater than 50% in coordination of care (as documented) at patient's floor/unit and/or counseling patient: Coding Level of Care Code 22519 SUB INP/OBS CARE 2/35MIN Diagnoses Acute on chronic respiratory failure with hypoxia and hypercapnia J96.21; J96.22 Collapse of lung J98.19 Mucus plugging of bronchi T17.500A Pneumonia J18.9 Interstitial lung disease J84.9 Pulmonary hypertension I27.20 Parkinson's disease G20.A1
[2025-03-12] MEDS ORDERED: Nursing to Pharmacy Communication SCH (01:00)
--- NOTE | 2025-03-12 08:02 | XRay Report ---
EXAM: XR chest 1V portable CLINICAL HISTORY: Pneumonia, ILD, COPD TECHNIQUE: X-ray image of the chest obtained in a frontal projection. COMPARISON: Prior X-ray dated 03/10/2025 for comparison. FINDINGS: Pulmonary Parenchyma: There are unchanged atelectatic changes in the right lower zone and unchanged atelectatic changes in the left lower zone. There is unchanged reticular shadowing in the bilateral upper zones, which is more prominent on the right. There is unchanged blunting of the bilateral CP angles, likely due to pleural thickening versus effusion. Heart and Mediastinum: The heart size and shape are normal. There is no mediastinal widening or masses. There is no hilar or mediastinal lymphadenopathy. Bony Thorax: There are degenerative changes in the bilateral shoulder joints. Spondylotic changes and dextroconvex scoliosis are noted in the thoracic spine. The bony thorax appears intact, without fractures or deformities. Soft Tissues: The soft tissues overlying the chest wall are unremarkable. IMPRESSION: 1. Unchanged bilateral atelectatic changes. 2. Unchanged reticular shadowing in the bilateral upper zones, more prominent on the right, possibly due to interstitial lung disease. 3. Unchanged blunting of the bilateral CP angles, likely due to pleural thickening versus effusion. Electronically signed by Quincy Dent 03-12-2025 08:02 AM
[2025-03-12] MEDS: DORNASE ALFA 2.5 ML AMP INH SCH (08:07)
[2025-03-12] MEDS: CARBIDOPA/LEVODOP 10/100MG TAB PO SCH (08:20)
[2025-03-12 11:20] LABS: Base Excess VBG 14.1 mEq/L; HCO3 VBG 44 mmol/L; Oxygen Saturation VBG < 60.0 %; PCO2 VBG 79 mmHg (38-50); PO2 VBG 21 mmHg; pH VBG 7.35 (7.36-7.41)
[2025-03-12 11:28] LABS: Hematocrit (blood only) 31.3 % (37.0-47.0); Hemoglobin 9.7 g/dl (12.0-16.0); Mean Corpuscular Hemoglobin 35.1 pg (25.0-34.0); Mean Corpuscular Volume 113.4 fL (80.0-100.0); Platelet Count 314 K/uL (130-400); RDW Standard Deviation 59.8 fL (36.4-46.3); Red Blood Count 2.76 M/uL (4.20-5.40); White Blood Count 7.65 K/ul (4.8-10.8)
[2025-03-12 11:46] LABS: Anion Gap 7.0 (3-11); Blood Urea Nitrogen 34.0 mg/dl (6-23); Calcium 9.0 mg/dl (8.6-10.3); Carbon Dioxide 38.0 mmol/L (21-32); Chloride 95.0 mmol/L (98-107); Creatinine Clr Calc Pharmacy 20.9 ml/min; Glucose 105.0 mg/dl (70-99(Fasting)); Magnesium 1.7 mg/dl (1.7-2.4); Potassium 3.9 mmol/L (3.5-5.1); Sodium 140.0 mmol/L (136-145)
--- NOTE | 2025-03-12 15:04 | Hospitalist Progress Note ---
Date of Service March 12, 2025 Assessment & Plan (1) Acute on chronic respiratory failure with hypoxia and hypercapnia: (2) Collapse of lung: (3) Mucus plugging of bronchi: (4) Pneumonia: (5) Interstitial lung disease: (6) Pulmonary hypertension: (7) Parkinson's disease: Plan 79yo female with chronic hypoxic respiratory failure on home continuous O2 3 liters, ILD/PF, COPD, pulmonary hypertension, chronic HFpEF, CKD-3 who was admitted with acute on chronic respiratory failure, extensive mucus plugging and bilateral lung collapse She was hospitalized at [facility] from 11/07 to 12/02 earlier this year for ESBL ecoli bacteremia 2nd to UTI. Course complicated by acute/chronic CHF. Was discharged to [facility] for rehab and remained there until 01/31. Hospitalized at [facility] from 02/18 to 02/25 for LLL pneumonia and received a full 7-day course of IV/PO antibiotic therapy. Video swallow exam during that admission did not show aspiration. Discharged with nebulizers including saline nebs but was not using. #b/l pneumonia with RML collapse, RLL collapse, and LLL collapse from mucous plugging #Pulmonary fibrosis, emphysema, pulmonary hypertension #acute on chronic hypoxic respiratory failure on home O2 - now on baseline amou nt of O2 -completing 7-day course of meropenem 03/11 -sputum culture negative -for RML/RLL/LLL collapse continue the following: -vibration vest BID - ordering for home use, see statement below -hypertonic saline nebs BID -duonebs QID -dornase nebs BID -budesonide BID -formoterol BID -frequent turning/positioning, avoid prolonged laying on back, etc (she does not like to reposition unfortunately) -flutter valve -CXR 03/11 reviewed and unchanged -pulmonary and palliative care consulted this admission DNR/DNI but wishes to continue current care, her goal is to attend her grandson's wedding in March. will send home with new POLST -counseled wrt need to keep up with her pulmonary regimen at home in order to keep herself going continues to have difficulty with mucus clearance - she had significant but brief pulmonary decompensation this AM and highly likely this was related to mucus plugging. Remain in hospital for now for ongoing aggressive treatment targeting discharge with caregivers after weekend #chronic HFpEF - -remains compensated at this time getting some mild edema and Cr supranormal for her, needs to run dry to help with the pulmonary disease -cont oral lasix - same dose. Weight is down at least few kg -BMP today reviewed and Cr at baseline 1.28 #hypothyroidism - -TSH wnl early January 2025 -cont levothyroxine #chronic DVT - as seen on b/l LE dopplers 10/2024 - -continue apixaban #parkinsonism - -cont sinemet 2 tabs TID -PT/OT completed - needs rehab, but wants to go home #chronic right eye disease - -cont prednisolone drops HS - made referral to optho last discharge #chronic CKD stage 3 - -creatinine stable on BMP 03/12 Elyse has chronic interstitial lung disease, emphysema, LLL bronchiectasis based on chest CT 02/18/25, chronic loose cough for at least 6 months with a lot of sec retions which she is unable to clear because of multiple factors: generalized weakness and deconditioning related to age frailty and serial hospital admissions, severe kyphosis of thoracic spine related to osteoporosis, parkinson's disease, and cognitive impairment which all combine to cause ineffective cough. She has had at least three courses of antibiotics in 2024 for pulmonary symptoms including admission at this time for acute respiratory failure from mucus plugging due to partial collapse of multiple lobes of the lungs. Flutter valve and hypertonic saline plus dornase nebs has been ine ffective in clearing secretions. She does not tolerate cough assist device, which did not mobilize secretions. She is too frail to tolerate manual chest PT safely - osteoporosis, kyphosis, frailty, and several past rib fractures. She does not generate adequate expiratory force to perform breathing maneuvers. She has significant GERD. Her inability to mobilize her pulmonary secretions is increasing her risk of mortality, recurrences of acute respiratory failure, further infections and hospitalizations. Admission and Anticipated Discharge Date Admission Date: March 04, 2025 Subjective Elyse had a respiratory decompensation this morning likely from a mucus plug. Occurred after she got up to bathroom, got very dyspneic and more hypoxic, RT called, she reports she finally coughed up some mucus and episode resolved. Continues to have difficulty clearing mucus. Physical Exam Physical Exam: Last 24h vitals reviewed GEN: no acute distress, sitting in chair, frail appearing HEENT: pupils equal, sclerae anicteric, moist MM RESP: normal WOB, continues to have a lot of mucus coarse ronchi throughout CV: reg obscured ABD: soft/nt/nd +BT : no zepeda SKIN: warm and dry, no generalized rashes EXT: wwp, trace edema NEURO: AOx person, place, and situation. Face symmetric, speech normal, moves 4 ext spontaneously and equally Results & Data Results & Data Vital Signs (Past 12 Hours) Vital Signs Temp Pulse Pulse Resp BP BP Pulse Ox 03/12/25 11:52 92 H 18 100 03/12/25 11:15 36.5 C 95 H 18 113/64 98 03/12/25 08:12 90 16 90 03/12/25 07:30 03/12/25 07:15 36.6 C 86 16 124/62 98 03/12/25 06:42 93 H 03/12/25 05:45 90 03/12/25 03:09 36.6 C 87 16 109/58 L 99 O2 Del Method O2 Flow Rate 03/12/25 11:52 Nasal Cannula 4 03/12/25 11:15 Nasal Cannula 4 03/12/25 08:12 Nasal Cannula 3 03/12/25 07:30 Nasal Cannula 2 03/12/25 07:15 Nasal Cannula 3 03/12/25 06:42 03/12/25 05:45 03/12/25 03:09 Nasal Cannula 3.0 PG Care Time/CCT Total # of Minutes Spent Total Time Spent with Patient: I personally spent: 60 minutes today on clinical care activities including: reviewing chart notes and vital signs reviewing labs reviewing studies discussion with care team coordinator scheduler examining and counseling the patient writing orders writing prescriptions, documentation for home equipment documentation Coding Level of Care Code 30435 SUB INP/OBS CARE 3/50MIN Diagnoses Acute on chronic respiratory failure with hypoxia and hypercapnia J96.21; J96.22 Collapse of lung J98.19 Mucus plugging of bronchi T17.500A Pneumonia J18.9 Interstitial lung disease J84.9 Pulmonary hypertension I27.20 Parkinson's disease G20.A1
[2025-03-12] MEDS: guaiFENesin 600 MG TABCR PO SCH (20:54)
--- NOTE | 2025-03-13 13:50 | Hospitalist Progress Note ---
Date of Service March 13, 2025 Assessment & Plan (1) Acute on chronic respiratory failure with hypoxia and hypercapnia: (2) Collapse of lung: (3) Mucus plugging of bronchi: (4) Pneumonia: (5) Interstitial lung disease: (6) Pulmonary hypertension: (7) Parkinson's disease: Plan 79yo female with chronic hypoxic respiratory failure on home continuous O2 3 liters, ILD/PF, COPD, pulmonary hypertension, chronic HFpEF, CKD-3 who was admitted with acute on chronic respiratory failure, extensive mucus plugging and bilateral lung collapse She was hospitalized at [facility] from 11/07 to 12/02 earlier this year for ESBL ecoli bacteremia 2nd to UTI. Course complicated by acute/chronic CHF. Was discharged to [facility] for rehab and remained there until 01/31. Hospitalized at [facility] from 02/18 to 02/25 for LLL pneumonia and received a full 7-day course of IV/PO antibiotic therapy. Video swallow exam during that admission did not show aspiration. Discharged with nebulizers including saline nebs but was not using. #b/l pneumonia with RML collapse, RLL collapse, and LLL collapse from mucous plugging #Pulmonary fibrosis, emphysema, pulmonary hypertension #acute on chronic hypoxic respiratory failure on home O2 - now on baseline amount of O2 -completing 7-day course of meropenem 03/11 -sputum culture negative -for RML/RLL/LLL collapse continue the following: -vibration vest BID - ordering for home use, see statement below -hypertonic saline nebs BID -duonebs QID -dornase nebs BID -budesonide BID -formoterol BID -frequent turning/positioning, avoid prolonged laying on back, etc (she does not like to reposition unfortunately) -flutter valve -CXR 03/11 reviewed and unchanged -pulmonary and palliative care consulted this admission DNR/DNI but wishes to continue current care, her goal is to attend her grandson's wedding in March. will send home with new POLST -counseled wrt need to keep up with her pulmonary regimen at home in order to keep herself going continues to have difficulty with mucus clearance - had mucus plugging incident AM of 03/12 but quickly resolved #chronic HFpEF - -remains compensated at this time getting some mild edema and Cr supranormal for her, needs to run dry to help with the pulmonary disease -cont oral lasix - same dose. Weight is down at least few kg #hypothyroidism - -TSH wnl early January 2025 -cont levothyroxine #chronic DVT - as seen on b/l LE dopplers 10/2024 - -continue apixaban #parkinsonism - -cont sinemet 2 tabs TID -PT/OT completed - needs rehab, but wants to go home #chronic right eye disease - -cont prednisolone drops HS - made referral to optho last discharge #chronic CKD stage 3 - -creatinine stable on BMP 03/12 lEyse has chronic interstitial lung disease, emphysema, LLL bronchiectasis based on chest CT 02/18/25, chronic loose cough for at least 6 months with a lot of secretions which she is unable to clear because of multiple factors: generalized weakness and deconditioning related to age frailty and serial hospital admissions, severe kyphosis of thoracic spine related to osteoporosis, parkinson's disease, and cognitive impairment which all combine to cause ineffective cough. She has had at least three courses of antibiotics in 2024 for pulmonary symptoms including admission at this time for acute respiratory failure from mucus plugging due to partial collapse of multiple lobes of the lungs. Flutter valve and hypertonic saline plus dornase nebs has been ineffective in clearing secretions. She does not tolerate cough assist device, which did not mobilize secretions. She is too frail to tolerate manual chest PT safely - osteoporosis, kyphosis, frailty, and several past rib fractures. She does not generate adequate expiratory force to perform breathing maneuvers. She has significant GERD. Her inability to mobilize her pulmonary secretions is increasing her risk of mortality, recurrences of acute respiratory failure, further infections and hospitalizations. Admission and Anticipated Discharge Date Admission Date: March 04, 2025 Subjective Feeling pretty good today, still not clearing mucus often Physical Exam 2 Physical Exam: Last 24h vitals reviewed GEN: no acute distress, awake sitting in bed HEENT: pupils equal, sclerae anicteric, moist MM RESP: normal WOB, bilateral coarse sounds a little better, fine crackles R posterior all rees unchanged, severe kyphosis CV: reg obscured ABD: soft/nt/nd +BT : no zepeda SKIN: warm and dry, no generalized rashes EXT: wwp, trace edema NEURO: AOx person, place, and situation. Face symmetric, speech normal, moves 4 ext spontaneously and equally Results & Data Results & Data Vital Signs (Past 12 Hours) Vital Signs Temp Pulse Pulse Resp BP BP Pulse Ox 03/13/25 11:08 36.3 C L 87 20 95/56 L 99 03/13/25 10:51 86 22 100 03/13/25 07:58 03/13/25 07:58 91 H 03/13/25 07:54 36.3 C L 86 20 109/68 100 03/13/25 07:19 88 20 99 03/13/25 03:17 36.3 C L 91 H 20 102/57 L 93 O2 Del Method O2 Flow Rate 03/13/25 11:08 Nasal Cannula 03/13/25 10:51 Nasal Cannula 4 03/13/25 07:58 Nasal Cannula 6 03/13/25 07:58 03/13/25 07:54 Nasal Cannula 03/13/25 07:19 Nasal Cannula 6 03/13/25 03:17 Nasal Cannula 3.0 Laboratory Results 03/12/25 11:05 03/12/25 11:05 PG Care Time/CCT Total # of Minutes Spent Total Time Spent with Patient: Total time spent is greater than 50% in coordination of care (as documented) at patient's floor/unit and/or counseling patient: Coding Level of Care Code 32992 SUB INP/OBS CARE 2/35MIN Diagnoses Acute on chronic respiratory failure with hypoxia and hypercapnia J96.21; J96.22 Collapse of lung J98.19 Mucus plugging of bronchi T17.500A Pneumonia J18.9 Interstitial lung disease J84.9 Pulmonary hypertension I27.20 Parkinson's disease G20.A1
--- NOTE | 2025-03-14 17:24 | Hospitalist Progress Note ---
Date of Service March 14, 2025 Assessment & Plan (1) Acute on chronic respiratory failure with hypoxia and hypercapnia: (2) Collapse of lung: (3) Mucus plugging of bronchi: (4) Pneumonia: (5) Interstitial lung disease: (6) Pulmonary hypertension: (7) Parkinson's disease: Plan 79yo female with chronic hypoxic respiratory failure on home continuous O2 3 liters, ILD/PF, COPD, pulmonary hypertension, chronic HFpEF, CKD-3 who was admitted with acute on chronic respiratory failure, extensive mucus plugging and bilateral lung collapse She was hospitalized at [facility] from 11/07 to 12/02 earlier this year for ESBL ecoli bacteremia 2nd to UTI. Course complicated by acute/chronic CHF. Was discharged to [facility] for rehab and remained there until 01/31. Hospitalized at [facility] from 02/18 to 02/25 for LLL pneumonia and received a full 7-day course of IV/PO antibiotic therapy. Video swallow exam during that admission did not show aspiration. Discharged with nebulizers including saline nebs but was not using. #b/l pneumonia with RML collapse, RLL collapse, and LLL collapse from mucous plugging #Pulmonary fibrosis, emphysema, pulmonary hypertension #acute on chronic hypoxic respiratory failure on home O2 - now on baseline amount of O2 -completing 7-day course of meropenem 03/11 -sputum culture negative -for RML/RLL/LLL collapse continue the following: -vibration vest BID - ordering for home use, see statement below -hypertonic saline nebs BID -duonebs QID -dornase nebs BID -budesonide BID -formoterol BID -frequent turning/positioning, avoid prolonged laying on back, etc (she does not like to reposition unfortunately) -flutter valve -CXR 03/11 unchanged -pulmonary and palliative care consulted this admission DNR/DNI but wishes to continue current care, her goal is to attend her grandson's wedding in March. will send home with new POLST -counseled wrt need to keep up with her pulmonary regimen at home in order to keep herself going continues to have difficulty with mucus clearance - had mucus plugging incidents AM of 03/12 and AM 03/14 which promptly resolved after nebs, percussion vest #chronic HFpEF - -remains compensated at this time, needs to run dry to help with the pulmonary disease -cont oral lasix - same dose. Weight is down a few kg, Cr at baseline #hypothyroidism - -TSH wnl early January 2025 -cont levothyroxine #chronic DVT - as seen on b/l LE dopplers 10/2024 - -continue apixaban #parkinsonism - -cont sinemet 2 tabs TID -PT/OT completed - needs rehab, but wants to go home #chronic right eye disease - -cont prednisolone drops HS - made referral to optho last discharge #chronic CKD stage 3 - -creatinine stable on BMP 03/12 planned for home tomorrow AM with caregivers Admission and Anticipated Discharge Date Admission Date: March 04, 2025 Subjective Had another less severe mucus plugging episode this AM which cleared with respiratory treatments and vest. She was able to cough up some mucus and sx are now back to baseline Discussed what to do when she has these episodes Physical Exam 2 Physical Exam: Last 24h vitals reviewed GEN: no acute distress, awake sitting in bed HEENT: pupils equal, sclerae anicteric, moist MM RESP: normal WOB, kyphosis, fine crackles posteriorly bilaterally throughout, overall less coarse sounds CV: reg no mrg ABD: : no zepeda SKIN: warm and dry, no generalized rashes EXT: wwp, no edema NEURO: AOx person, place, and situation. Face symmetric, speech normal, moves 4 ext spontaneously and equally Results & Data Results & Data Vital Signs (Past 12 Hours) Vital Signs Temp Pulse Pulse Pulse Resp BP BP 03/14/25 15:35 94 H 20 03/14/25 15:10 37.1 C 96 H 18 115/60 03/14/25 11:22 90 20 03/14/25 08:20 36.4 C L 77 18 134/67 03/14/25 08:07 83 03/14/25 07:58 03/14/25 07:20 89 22 Pulse Ox O2 Del Method O2 Flow Rate 03/14/25 15:35 98 Nasal Cannula 2 03/14/25 15:10 97 Nasal Cannula 2 03/14/25 11:22 98 Nasal Cannula 2 03/14/25 08:20 95 Nasal Cannula 2 03/14/25 08:07 03/14/25 07:58 Oxymask 4 03/14/25 07:20 90 Oxymask 2 Laboratory Results 03/12/25 11:05 03/12/25 11:05 PG Care Time/CCT Total # of Minutes Spent Total Time Spent with Patient: Total time spent is greater than 50% in coordination of care (as documented) at patient's floor/unit and/or counseling patient: Coding Level of Care Code 35892 SUB INP/OBS CARE 2/35MIN Diagnoses Acute on chronic respiratory failure with hypoxia and hypercapnia J96.21; J96.22 Collapse of lung J98.19 Mucus plugging of bronchi T17.500A Pneumonia J18.9 Interstitial lung disease J84.9 Pulmonary hypertension I27.20 Parkinson's disease G20.A1
[2025-03-14 21:20] VITALS: TEMP 97.7
[2025-03-15 07:59] VITALS: RESP 18
[2025-03-15 08:06] VITALS: BP 125/63; O2SAT 97
--- NOTE | 2025-03-15 08:42 | Discharge Summary ---
Discharge Summary Date of Service March 15, 2025 Principal Dx & Hospital Course #1 = Principal Diagnosis (1) Acute on chronic respiratory failure with hypoxia and hypercapnia: (2) Collapse of lung: (3) Mucus plugging of bronchi: (4) Pneumonia: (5) Interstitial lung disease: (6) Pulmonary hypertension: (7) Parkinson's disease: Plan 79yo female with chronic hypoxic respiratory failure on home continuous O2 3 liters, ILD/PF, COPD, pulmonary hypertension, chronic HFpEF, CKD-3 who was admitted with acute on chronic respiratory failure, extensive mucus plugging and bilateral lung collapse She was hospitalized at [facility] from 11/07 to 12/02 earlier this year for ESBL ecoli bacteremia 2nd to UTI. Course complicated by acute/chronic CHF. Was discharged to [facility] for rehab and remained there until 01/31. Hospitalized at [facility] from 02/18 to 02/25 for LLL pneumonia and received a full 7-day course of IV/PO antibiotic therapy. Video swallow exam during that admission did not show aspiration. Discharged with nebulizers including saline nebs but was not using at home. #b/l pneumonia with RML collapse, RLL collapse, and LLL collapse from mucous plugging #Pulmonary fibrosis, emphysema, pulmonary hypertension #acute on chronic hypoxic respiratory failure on home O2 - now on baseline amount of O2 -completed 7-day course of meropenem 03/11. it is not completely clear cut to me that there was actually an active pneumonia but we treated it as such because of her severe pulmonary symptoms - most of the problem this admission was mucous plugging and inability to clear mucus. Pulmonary consulted. Bronchoscopy was considered early in the hospital stay however she improved without it. -sputum culture negative - Eventually her ability to clear mucus did improve with regimen below. She did have some mild mucous plugging episodes on 2 different mornings that resolved after her morning nebulizer treatments and vest treatment - she will follow-up with pulmonary clinic at [facility], previously has been seeing Quang Mojica -for mucous plugging continue the following: -hypertonic saline nebs BID -duonebs QID as needed -dornase nebs BID -budesonide BID -formoterol BID -flutter valve -vibration vest BID scheduled and twice daily as neededI have ordered this through her oxygen supply company for home use pending insurance approval her chronic lung disease is severe she is very weak she has had multiple hospitalizations this year and she is extremely high risk for readmission, in fact it is highly probable -palliative care consulted this admission DNR/DNI but wishes to continue current care, her goal is to attend her grandson's wedding in March. sent home with new POLST reflecting this decision -counseled wrt need to keep up with her pulmonary regimen at home in order to keep herself going. her home caregiver was present at the time of discharge and I discussed the necessary regimen with her as well #chronic HFpEF - -remains compensated at this time, needs to run dry to help with the pulmonary disease -cont oral lasix - same dose. Weight is down a few kg, Cr at baseline #hypothyroidism - -TSH wnl early January 2025 -cont levothyroxine #chronic DVT - as seen on b/l LE dopplers 10/2024 - -continue apixaban #parkinsonism - -cont sinemet 2 tabs TID -PT/OT completed - needs rehab, but wants to go home. will benefit from home health PT OT Which was ordered. She does have 24-hour caregivers #chronic right eye disease - -cont prednisolone drops HS - made referral to another optho for second opinion last discharge #chronic CKD stage 3 - -creatinine stable on [facility] 03/12 Admission HPI Per Admitting Provider 79yo female with chronic hypoxic respiratory failure on home continuous O2 2 liters, ILD/PF, previous long-standing tobacco use (nearly 50 years), anemia, parkinsonism, pulmonary hypertension, chronic HFpEF, GERD with history of GI bleed, hypothyroidism, lumbar spinal stenosis, CKD stage IV with baseline CrCl ~20, prediabetes, vitamin D deficiency, and osteoporosis. She was hospitalized at [facility] from 11/07 to 12/02 earlier this year for ESBL ecoli bacteremia 2nd to UTI. Course complicated by acute/chronic CHF. Was discharged to [facility] for rehab. She had a lengthy rehab stay at [facility] and was discharged from there on 01/31/25 to her home in [place]. She was treated for b/l pneumonia twice while at [facility] - first with course of levofloxacin, and 2nd with course of augmentin. When she was discharged on 01/31 from [facility] she was finishing a course of augmentin. She was then hospitalized at [facility] from 02/18 to 02/25 for LLL pneumonia and received a full 7-day course of IV/PO antibiotic therapy. Video swallow exam during that admission did not show aspiration. Seen by Dr Daniel Correia from pulmonary - felt not to be a candidate for ILD treatments. After discharge from [facility] on 02/25 she reports feeling "ok" for about 2 days, but then her cough, chest congestion, wheezing, dyspnea, and dyspnea on exertion all worsened. Admits to spending much of the day laying on the couch at her home. She has been compliant with all inhalers & neb treatments. Today her symptoms got worse once again and thus EMS was summoned to her home and she was brought to [facility]. When asked about sputum she states she might expectorate sputum about 1x/day, typically in the mornings. Appetite has been fair since recent hospital discharge. Discharge Exam Last 24h vitals reviewed GEN: no acute distress, awake sitting edge of HEENT: pupils equal, sclerae anicteric, moist MM RESP: normal WOB, kyphosis, fine crackles posteriorly bilaterally throughout, overall less coarse soundsunchanged from yesterday CV: reg no mrg ABD: nondistended : no zepeda SKIN: warm and dry, no generalized rashes EXT: wwp, no edema NEURO: AOx person, place, and situation. Face symmetric, speech normal, moves 4 ext spontaneously and equally Discharge Plan Discharge Items Patient Disposition: Home - Home Health Services Reason For Visit: ACUTE/CHRONIC RESP FAILURE,OLD,MUCOUS PLUGGING Discharge Diagnosis: acute on chronic hypoxic respiratory failure secondary to mucus plugging Condition on Discharge: Fair Activity: Resume your previous activity Non-emergency contact: Primary Care Provider Call non-emergency contact if: you have any medication questions and your symptoms worsen Follow-up/Referrals: Katarina Peters DO [Primary Care Provider] - 03/22/25 3:00 pm Diet: Regular Diet Texture: Easy to Chew Addtl Attending Provider Instructions: You were treated with a complete course of IV antibiotics for pneumonia I think the main problem is mucus plugging - mucus plugs up your airways and causes low oxygen, then you have a lot of trouble coughing it up Continue the nebulizers - we added two: hypertonic saline and dornase - these help treat/prevent mucus plugging I ordered a chest vibration vest - this helps knock the mucus loose. Your respiratory supply company will have to deliver it to your home, currently maciel iting insurance authorization You'll need to use the vest for two sessions a day at minimum. If you're having trouble you can increase it to four times a day If you have a mucus plugging attack (increased shortness of breath or low oxygen, inability to cough up mucus), use your nebulizers and use the vest to loosen the mucus. Often once you cough it up, the problem will resolve. These episodes seem to happen in the pet training instructor. If the symptoms persist, seek immediate medical attention. Continue your home oxygen Your lung disease is caused by multiple problems and is severe - pulmonary fibrosis/ILD (scarring of the lung tissue) and emphysema, also you have a very weak cough because of general weakness, spinal curvature, your parkinsons - this makes it hard to move enough air and produce a strong cough. The prognosis from your lung disease is poor - especially with the multiple recent hospitalizations. I'm not sure that you're well enough to stay out of the hospital very long. Palliative care consulted this admission. We have made a new POLST for you - hang it at home where medics will see it. Follow up with velvet steamer Quang Mojica and primary care You can stop the atorvastatin - this medicine won't benefit you much, if at all, at this point and may cause side effects Continue your other medications It was a pleasure taking care of you in the hospital, Yessi Presley MD Pending Studies at Discharge: No Stand-Alone Forms: My [facility], Smoking Cessation Medications and DC Order Prescriptions: New sodium chloride 7 % Solution For Nebulization 4 ml NEB BIDR Qty: 240 0RF sennosides [Senna Lax] 8.6 mg Tablet 17.2 mg PO QAM Qty: 60 0RF Rx Instructions: buy OTC Pulmozyme 1 mg/mL Solution 2.5 mg inhalation BIDR Qty: 75 0RF guaifenesin [Mucinex] 600 mg Tablet Extended Release 12hr 600 mg PO Q12 Qty: 0 0RF Rx Instructions: buy OTC Continued famotidine 20 mg tablet 20 mg PO DAILY Qty: 90 3RF folic acid 1 mg tablet 1 mg PO QAM Qty: 90 3RF Eliquis 2.5 mg tablet 2.5 mg PO BID Qty: 180 1RF thiamine HCl (vitamin B1) 100 mg tablet 200 mg PO QAM Qty: 90 3RF magnesium 200 mg tablet 200 mg PO DAILY ipratropium-albuterol 0.5 mg-3 mg(2.5 mg base)/3 mL solution for nebulization 3 ml inhalation QID PRN (Reason: dyspnea) formoterol fumarate [Perforomist] 20 mcg/2 mL Solution For Nebulization 20 mcg NEB BIDR Qty: 120 0RF Incruse Ellipta 62.5 mcg/actuation Blister With Device 1 inh inhalation DAILY Qty: 30 0RF Rx Instructions: UNABLE TO VERIFY THIS MED. azelastine 137 mcg (0.1 %) Jenison,Non-Aerosol 1 spray NA BID Qty: 30 0RF budesonide 0.25 mg/2 mL Suspension For Nebulization 0.25 mg NEB BIDR Qty: 120 0RF albuterol sulfate 90 mcg/actuation Hfa Aerosol Inhaler 2 inh INHALATION DAILY PRN (Reason: Shortness Of Breath Or Wheezing) fluticasone propionate [Flonase Allergy Relief] 50 mcg/actuation Jenison,Suspension 2 spray INTRANASAL DAILY PRN (Reason: .allergy symptoms) Rx Instructions: administer into each nostril acetaminophen [Tylenol] 325 mg Tablet 650 mg PO Q6 MDD 3 GRAMS APAP/24 HOURS PRN (Reason: fever or pain) Qty: 60 0RF valacyclovir 500 mg tablet 500 mg PO DAILY carbidopa-levodopa 10-100 mg tablet 2 tab PO TIDM levothyroxine 88 mcg tablet 88 mcg PO DAILYBB cyanocobalamin (vitamin B-12) [Vitamin B-12] 1,000 mcg Tablet 1,000 mcg PO QAM prednisolone acetate 1 % drops,suspension 1 drp OPR QAM furosemide 40 mg tablet 40 mg PO DAILY polyethylene glycol 3350 [Miralax] 17 gram/dose Powder 17 g PO DAILY diclofenac sodium 1 % Gel 4 g TOPICAL QID PRN (Reason: KNEE PAIN) Discontinued atorvastatin 80 mg tablet 80 mg PO HS Qty: 30 3RF Discharge Orders: Discharge Order (Routine); Ordered 03/15/25 Ordered By: Yessi Presley Admission Data Admit Date/Time: 03/04/25 19:03 Attending Provider: Yessi Presley Admit Provider: Isidro Huff Primary Care Provider: Katarina Peters Other Providers: [facility] Fax; Isidro Huff; Juan Diego Cortez Other Interventions: Discharge Summary Assessment (RN) Last Done: 03/15/25 09:51 Hospital Stay Data Consultations 03/04/25 17:24 ED Decision to Admit Stat 03/05/25 10:25 Consult Pulmonology Routine 03/09/25 12:57 Consult Palliative Care Routine Diagnostic Imagining Performed 03/04/25 13:48 CT abd pelvis IV con only Stat CT angio chest PE protocol Stat Pending Results Patient Have Any Pending Studies at Discharge: No Discharge Instructions Given to Patient (Per Discharging Provider) You were treated with a complete course of IV antibiotics for pneumonia I think the main problem is mucus plugging - mucus plugs up your airways and causes low oxygen, then you have a lot of trouble coughing it up Continue the nebulizers - we added two: hypertonic saline and dornase - these help treat/prevent mucus plugging I ordered a chest vibration vest - this helps knock the mucus loose. Your respiratory supply company will have to deliver it to your home, currently awaiting insurance authorization You'll need to use the vest for two sessions a day at minimum. If you're having trouble you can increase it to four times a day If you have a mucus plugging attack (increased shortness of breath or low oxygen, inability to cough up mucus), use your nebulizers and use the vest to loosen the mucus. Often once you cough it up, the problem will resolve. These episodes seem to happen in the pet training instructor. If the symptoms persist, seek immediate medical attention. Continue your home oxygen Your lung disease is caused by multiple problems and is severe - pulmonary fi brosis/ILD (scarring of the lung tissue) and emphysema, also you have a very weak cough because of general weakness, spinal curvature, your parkinsons - this makes it hard to move enough air and produce a strong cough. The prognosis from your lung disease is poor - especially with the multiple recent hospitalizations. I'm not sure that you're well enough to stay out of the hospital very long. Palliative care consulted this admission. We have made a new POLST for you - hang it at home where medics will see it. Follow up with velvet steamer Quang Mojica and primary care You can stop the atorvastatin - this medicine won't benefit you much, if at all, at this point and may cause side effects Continue your other medications It was a pleasure taking care of you in the hospital, Yessi Presley MD Total Time Total Time Spent Total Time Spent (In Minutes): I personally spent: 40 minutes today on clinical care activities including: reviewing chart notes and vital signs discussion with rn medicare examining and counseling the patient counseling the patient's caregiver at bedside writing prescriptions, discharge instructions documentation Coding Level of Care Code 90028 INP/OBS DISCH >30 MIN Diagnoses Acute on chronic respiratory failure with hypoxia and hypercapnia J96.21; J96.22 Collapse of lung J98.19 Mucus plugging of bronchi T17.500A Pneumonia J18.9 Interstitial lung disease J84.9 Pulmonary hypertension I27.20 Parkinson's disease G20.A1
[2025-03-15 10:08] VITALS: PULSE 89
== END 2025-03-15 10:58 | disposition home health service (06) | DRG 193 ==
LOC: ED 13:00 → SUATTDRO 19:03 → 4W 19:03
DX: J96.21 Acute and chronic respiratory failure with hypoxia; Y95 Nosocomial condition; I25.2 Old myocardial infarction; H57.9 Unspecified disorder of eye and adnexa; F32.A Depression, unspecified; K21.9 Gastro-esophageal reflux disease without esophagitis; M48.061 Spinal stenosis, lumbar region without neurogenic claudication; G20.A1 Parkinson's disease without dyskinesia, without mention of fluctuations; I50.32 Chronic diastolic (congestive) heart failure; Z79.890 Hormone replacement therapy; Z51.5 Encounter for palliative care; Z88.1 Allergy status to other antibiotic agents; J15.9 Unspecified bacterial pneumonia; E78.5 Hyperlipidemia, unspecified; D64.9 Anemia, unspecified; Z88.5 Allergy status to narcotic agent; E03.9 Hypothyroidism, unspecified; Z79.899 Other long term (current) drug therapy; J96.22 Acute and chronic respiratory failure with hypercapnia; I13.0 Hypertensive heart and chronic kidney disease with heart failure and stage 1 through stage 4 chronic kidney disease, or unspecified chronic kidney disease; J98.19 Other pulmonary collapse; J84.10 Pulmonary fibrosis, unspecified; R73.03 Prediabetes; I27.20 Pulmonary hypertension, unspecified; Z66 Do not resuscitate; E11.22 Type 2 diabetes mellitus with diabetic chronic kidney disease; J43.9 Emphysema, unspecified; I82.503 Chronic embolism and thrombosis of unspecified deep veins of lower extremity, bilateral; N18.4 Chronic kidney disease, stage 4 (severe); Z87.891 Personal history of nicotine dependence; M81.0 Age-related osteoporosis without current pathological fracture; T17.590A Other foreign object in bronchus causing asphyxiation, initial encounter